=== PATIENT | female | born 1940 | race Caucasian/White ===

== ENCOUNTER 2023-03-12 12:45 | Outpatient (OUT) | payer MEDICARE, OTHER, SELFPAY ==
--- NOTE | 2023-03-12 12:46 | VEIN_ITS ---
Patient Name: ADINA PERRY MR#: [id number] : 1940 Exam Date: 03/12/2023 Ordering Doctor: DR SHREYA GuoPSharonda RADIOLOGY REPORT PROCEDURE: [facility] - OFFICE VISIT INITIAL COMPARISON: None. PROGRESS NOTES: 82-year-old female who presents with a 2 decade history of lower extremity pain swelling and varicose veins. The patient complains of bilateral leg pain, left greater than right. The patient rates the pain as an 8 on a scale of 1-10. The patient's pain is exacerbated by prolonged sitting and standing and is partially relieved by rest, leg elevation, exercise and over the counter ibuprofen. The patient has worn compression stockings for many years. Patient's symptoms culminated in an episode spontaneous superficial thrombophlebitis the left anterior thigh and knee. The patient is seen by Dr. Jacobson for left foot pain and referred from [facility]. The patient denies any signs and symptoms to suggest arterial ischemia. The patient describes a family history significant for varicose veins in a daughter. Heart disease in her brother and father. Type 2 diabetes. . Past surgical history significant for back surgery, hysterectomy, right knee replacement and hernia repair. Patient's current medical history is significant for left leg suspected cellulitis for which she is currently on Keflex. Hypertension for which she is on multiple medications. Occasional social alcohol use. No illicit drug use or prescription issues. The patient has never smoked. No history of deep venous thrombus or pulmonary embolus. See separate history and physical for medication list. The patient has had no prior treatment for varicose veins. Nursing notes were reviewed. After history and physical exam I discussed at length the pathophysiology of venous hypertension and possible treatments, therapies and strategies available. We discussed at length the importance of elevating the lower extremities above the level of the heart, increased physical activity and compression stocking use. I discussed at length with the patient and her daughter intravenous laser ablation, micro foam chemical ablation and injection sclerotherapy. Risks benefits and alternatives were discussed. The patient's questions were answered. Ultrasound venous reflux study performed same day was discussed at length with the patient. The report demonstrates moderate right and mild left great saphenous vein venous insufficiency. Moderate to severe left anterior accessory saphenous vein venous insufficiency. Multiple varicose veins arise off the left anterior accessory saphenous vein including the spontaneously thrombosed vein which is only partially occluded PHYSICAL EXAM: The right leg demonstrates mild to moderate scattered varicose reticular and spider veins. Some minimal hemosiderin staining. No subcutaneous edema. No active ulceration. The left leg demonstrates mild to moderate scattered varicose, reticular and spider veins. Some minimal hemosiderin staining is. No subcutaneous edema. There is a thrombosed varicose vein along the medial to anterior mid to distal left thigh extending of the anterior knee and anterior lower leg with an associated bruise and erythema likely representing thrombophlebitis. Both thighs, legs and feet were symmetrically warm to the touch. Good posterior tibial and dorsalis pedis pulses were present bilaterally. VEIN/VC Facility EST Comprehensive IMPRESSION: 1. Moderate right great saphenous, mild left great saphenous and moderate to severe left anterior accessory saphenous vein venous insufficiency 2. Mild to moderate bilateral lower extremity varicose veins, left greater than right 3. No definite lower extremity subcutaneous edema 4. No definite flow significant arterial disease 5. CEAP: C4a, Eps, As, Pro PLAN: 1. Endovenous laser ablation left anterior accessory saphenous vein followed by right great saphenous vein. 2. Micro foam chemical ablation bilateral incompetent varicose veins 3. Injection sclerotherapy bilateral reticular and spider veins 4. Long-term use of bilateral knee or thigh-high 20-30 mm compression stockings 5. Elevated legs and increased physical activity for symptomatic relief Nurse notes, history and physical were reviewed and confirmed, see attached forms. The nurse was present throughout the physical exam and consultation Dictated by: Jesus Adam MD on 03/12/2023 at 14:43 Approved by: Jesus Adam MD on 03/12/2023 at 14:51
--- NOTE | 2023-03-12 12:47 | VEIN_ITS ---
Patient Name: ADINA PERRY MR#: [id number] : 1940 Exam Date: 03/12/2023 Ordering Doctor: DR SHREYA MILLS D.P.M. RADIOLOGY REPORT PROCEDURE: VC EXT VENOUS REFLUX JACKY LMTD COMPARISON: None. INDICATIONS: I83.813 Bilateral painful varicose veins TECHNIQUE: Duplex imaging of the lower extremity to assess the deep and superficial venous system for the presence of deep or superficial venous incompetence and to document the location and severity of disease. The study includes evaluation of the great saphenous vein (GSV), anterior accessory saphenous vein (AASV) and small saphenous vein (SSV). Patient scanned in reverse Trendelenburg and standing. FINDINGS: RIGHT LOWER EXTREMITY: Saphenofemoral Junction Reflux: Yes 7.3mm 1.7 sec GSV: Diam (mm) Reflux/ Time (sec) Proximal Thigh 5.6 Yes 1.2 Mid Thigh 3.4 Yes 0.8 Distal Thigh 2.9 No Prox Calf 2.5 Yes 0.6 Mid Calf 1.3 No Saphenopopliteal Junction Reflux: 3.9mm No SSV: Proximal Calf 2.1 Yes 0.7 Mid Calf 1.7 No AASV: Not present Thrombi: No acute or chronic thrombus visualized Compressibility: Normal Flow: Normal Preforator: Dist/med calf 2.2mm with 0.6s reflux. Tech Note: Incompetent GSV. Patent varicose vein dist/med calf 1.7mm with 0s reflux. Patent dist/med thigh 2.4mm with 0.6s reflux. LEFT LOWER EXTREMITY: Saphenofemoral Junction Reflux: Yes 6.3 mm 1.1 sec GSV: Diam (mm) Reflux/Time (sec) Proximal Thigh 6.5 Yes 0.7 Mid Thigh 3.8 Yes 0.7 Distal Thigh 2.5 No Prox Calf 1.4 No Mid Calf N/A Saphenopopliteal Junction Relux: 2.5 mm No SSV: Proximal Calf 2.1 No Mid Calf 2.4 No AASV: Proximal Thigh 5.7 Yes 2.4 Mid Thigh 3.6 Yes 2.0 Distal Thigh Thrombi: Chronic thrombus visualized in varicose vein at dist/ant thigh and knee. Compressibility: Normal Flow: Normal Crew Supervisor: Dist/med calf 2.8mm with 0.5s reflux. Tech Note: Incompetent GSV and AASV. Multiple varicose veins visualized with chronic thrombus as noted arising off of AASV. CONCLUSION: 1. Moderate right and mild left great saphenous vein venous insufficiency with saphenofemoral junction reflux 2. Moderate venous insufficiency left anterior accessory saphenous vein 3. Bilateral incompetent varicose veins 4. Thrombosed varicose veins left anterior thigh Dictated by: Jesus Adam MD on 03/12/2023 at 13:55 Approved by: Jesus Adam MD on 03/12/2023 at 13:58
== END 2023-03-12 12:46 | disposition home or self-care (01) ==
LOC: VC 12:46
PROVIDERS: PCP Internal Medicine; Visit Provider Podiatrist Foot & Ankle Surgery
DX: I83.813 Varicose veins of bilateral lower extremities with pain (principal)
CPT/HCPCS: 93970; G0463

== ENCOUNTER 2023-04-03 08:39 | Outpatient (OUT) | payer MEDICARE, OTHER, SELFPAY ==
--- NOTE | 2023-04-03 08:40 | VEIN_ITS ---
The [address] [address] Patient Name: ADINA PERRY MRN: [id number] date: 1940 Sex: F Assigned Patient Location: Current Patient Location: Accession/Order Number: [id number] Exam Date: 04/03/2023 08:44 Report Date: 04/03/2023 10:01 At the request of: SHAMIKA FLORES Procedure: VC Endovenous Ablation 1VeinLT EXAMINATION: VC Endovenous Ablation 1VeinLT HISTORY: I83.813 Bilateral painful varicose veins The risks and benefits of the procedure had been previously discussed, and were rediscussed at length. Informed written consent was obtained. Alexey Sosa RN and Stephanie Jessica RDMS, RVT assisted. Time out procedure was performed. The left lower extremity was prepared and draped in the usual sterile fashion to allow knee flexion in the sterile field. Duplex ultrasound probe was draped in a sterile cover, sterile transmission gel was used. Venous mapping was performed with the areas of dilation and large tributaries marked. The total length was 10 cm from the entry [mid thigh to 3 cm below the Saphenofemoral junction. The diameter of the left anterior accessory saphenous vein ranged from 5.7 mm. A 30 gauge needle and 1% buffered lidocaine was used to anesthetize the entry site. A 4 mm incision was made with a scalpel and the saphenous vein was entered percutaneously under direct ultrasound guidance with a micropuncture set, a single stick was successful in gaining access. A micro-guide wire was inserted and the needle removed. A micro-set including a dilator was inserted over the microwire and the needle and dilator were removed. A guide wire was inserted through the micro-set and guided through the saphenous vein to the saphenofemoral junction. The dilator was removed and an introducer sheath was inserted over the wire until the end of the sheath entered the saphenofemoral junction. The dilator and wire were removed and the 600 micron fiber was introduced and placed and positioned so that it extended beyond the sheath and was 3 cm distal to the saphenofemoral or saphenopopliteal junction. Final position of the fiber was determined by ultrasound guidance and duplex imaging. Tumescent anesthetic was delivered by ultrasound guidance. 75 cc of fluid was delivered along the entire course of the saphenous vein. The solution consisted of 1000 cc of normal saline with 40 mL of 1% lidocaine and 20 mL of sodium bicarbonate. A final positioning check was made. The energy source was turned on by means of the foot pedal and the fiber and sheath were withdrawn. The total number of Joules delivered was 499. The laser was active for 62 seconds under continuous pulse, average laser use of 8 J. Laser start time 9:31 AM, 04/03/2023. Laser stop time 9:33 AM, 04/03/2023. A duplex ultrasound revealed compressibility and flow at the saphenofemoral junction immediately after the procedure. Hemostasis at the access site was achieved. The skin incision of the saphenous vein was closed with a 4 x 4. A compression stocking was applied. Postop instructions were given. A follow up appointment was recommended and scheduled. The patient tolerated the procedure well. Electronically authenticated by: GABY MONTANEZ Date: 04/03/2023 10:01
--- OUTSIDE RECORDS SUMMARY | 2023-04-03 08:44 | XMS_ITS | CCD ---
Author Name Unknown Address [address] [place] [address] Organization [facility] Care Team Providers Care Life Support Technician Name Role Phone Adriana Cruz Unavailable [phone] Unavailable Unavailable Clement Madrid II Unavailable OctaviaEliecer syed Unavailable DO Adriana Cruz Primary Care Provider DO Misbah Greenwood Emergency Provider Unavai ADRIANA Muñiz Primary Care Physician [phone] Shi Urbano Attending Unavailable Shi Urbano Admitting Unavailable Shi Urbano Attending Unavailable Shi Urbano Admitting Unavailable Jay Power Consulting Unavailable J Carlos KEN Attending Unavailable J Carlos KEN Admitting Unavailable Jay Power Consulting Unavailable Jay Power Consulting Unavailable Jay Power Consulting Unavailable MD Mary Ayala Consulting Unavailab mikala Ayala Moaguilar Consulting Unavailable TrabMary florez Consulting Unavailable Trabgautam Moaguilar Consulting Unavailable Trabcalvini Mosethf Consulting Unavailable Trabcalvini Mosethf Consulting Unavailable Trabgautam Moaguilar Consulting Unavailable Yon Ayalaf Consulting Unavailable Mary Ayala Consulting Unavailable Jay Power Admitting Unavailable Jay Power Referring Unavailable Jay Power Attending Unavailable Jay Power Admitting Unavailable Jay Power Referring Unavailable Jay Power Attending Unavailable Shi Urbano Attending Unavailable Shi Urbano Attending Unavailable Jay Power Attending Unavailable Jay Power Attending Unavailable Shi Urbano Referring Unavailable SALAMJeferson Referring Unavailable SALAM, Jeferson Attending Unavailable SALAM, Govea Admitting Unavailable Tirado-Rougon, Adriana Billie Primary Care Unava ilable Tirado-Rougon, Adriana Billie Primary Care Unava ilable McGuinn II, Nick Garduno Attending Unav ailable McGuinn II, Nick Garduno Attending Unav ailable Tirado-Rougon, Adriana Billie Primary Care Unava ilable McGuinn II, Nick Garduno Referring Unav ailable Tirado-Rougon, Adriana Billie Primary Care Unava ilable McGuinn II, Nick Garduno Referring Unav ailable McGuinn II, Nick Garduno Attending Unav ailable Tirado-Rougon, Adriana Billie Primary Care Unava ilable Tirado-Rougon, Adriana Billie Primary Care Unava ilable McGuinn II, Nick Garduno Attending Unav ailable Luis Nolasco Unavailable Savanna Cassidy Unavailable Tirado-Rougon DO, Adriana Billie Primary Care Provi octavio Tirado-Rougon, DO Adriana Primary Care Provider MD Nick Wasserman Attending Provider NICK WASSERMAN Attending Unavailable TIRADO-EMERY, ADRIANA BILLIE Primary Care Unava ilable Tirado-Rougon, DO Adriana Primary Care Provider MD Nick Wasserman Attending Provider LIT Gray Attending Provider Tirado-Rougon, Adriana Primary Care Unavailable Nick Wasserman Admitting Unavail able Nick Wasserman Attending Unavail able Eliecer Gray Attending Unavaila ble Tirado-Rougon, Adriana Primary Care Unavailable Eliecer Gray Admitting Unavaila ble TIRADO-EMERY, ADRIANA D Referring Unavailab IRMA Chinchilla Attending Unavailable SHREYA MILLS Attending Unavailable Allergies Allergy Classification Reported Allergen(s) Allergy Type Date of Onset Reaction(s) Facility (4 sources) HYDROcodone; Translations: [hydrocodone] Drug Allergy [facility] (5 sources) oxyCODONE; Translations: [oxyCODONE] Drug Allergy [facility] (2 sources) Acetaminophen / oxyCODONE; Translations: [acetaminophen-ox ycodone] Drug Allergy Nausea (finding) [facility] Comment on above: All pain meds EXCEPT Morphine. Patient is able to take Morphone. (1 source) Acetaminophen / HYDROcodone; Translations: [Cary] Drug Allergy [facility] (1 source) Acetaminophen / oxyCODONE; Translations: [Percocet] Drug Allergy [facility] (1 source) Darvocet-N 100; Translations: [Darvocet-N 100] Propensity to adverse reactions (disorder) [facility] Medications Current Medications Medication Drug Class(es) Dates Sig (Normalized) Sig (Original) Albuterol (15 sources) beta2-Adrenergic Agonist Start: 01-09-2022 albuterol Refills(s) 0, Asthma Start Date: 01/09/22 Status: Ordered Start: 01-09-2022 albuterol Refi lls(s) 0 Start Date: 01/09/22 Status: Ordered Start: 08-25-2021 take 2 puff(s) by in halation every four hours as needed Albuterol Sulfate HFA 108 (90 Base) MCG/ACT 2 puffs Inhalation every 4 hours as needed for 7 days August, Active Start: 08-25-2021 take 2 puff(s) by in halation every four hours as needed Albuterol Sulfate HFA 108 (90 Base) MCG/ACT 2 puffs Inhalation every 4 hours as needed for 7 days August, Active Start: 06-25-2020 take 1 puff(s) by in halation every four to six hours Albuterol Sulfate (Proair Hfa) 90 mcg/actuation Hfa Aerosol Inhaler Active 2 PUFF INHALATION EVERY 4-6 HOURS June 24, 2020 11:00pm Albuterol Sulfat e HFA 108 (90 Base) MCG/ACT Inhalation Aerosol Solution USE DIRECTED Quantity: 0 Refills: 0 Ordered: 05-Mar-2021 DO Active Albuterol Sulfat e HFA 108 (90 Base) MCG/ACT Inhalation Aerosol Solution USE DIRECTED Quantity: 0 Refills: 0 Ordered: 05-Mar-2021 DO Active amLODIPine 5 mg oral tablet (18 sources) Dihydropyridine Calcium Channel Cayetano Start: 02-02-2023 End: 02-02-2024 take 1 tablet by mouth once daily amLODIPine (Norvasc) 5 mg tablet Indications: Essential hypertension, benign , Nonischemic cardiomyopathy (CMS/HCC) Take 1 tablet (5 mg) by mouth once daily. 30 tablet 11 02/02/2023 02/02/2024 Active Start: 01-09-2022 amlodipine Ref ills(s) 0, High blood pressure Start Date: 01/09/22 Status: Ordered Start: 01-09-2022 amlodipine Ref ills(s) 0 Start Date: 01/09/22 Status: Ordered Start: 06-25-2020 End: 02-02-2023 take 10 mg by mouth once daily Amlodipine Active 10 MG PO Daily June 24, 2020 11:00pm take 1 tablet by roberth th once daily amLODIPine Besylate 2.5 MG Oral Tablet TAKE 1 TABLET DAILY DIRECTED. Quantity: 0 Refills: 0 Ordered: 30-Jul-2020 DO Active Amlodipine & Diet Manage Prod 2.5 MG (5 sources) Amlodipine & t Manage Prod 2.5 MG as directed Orally Active Aspir-81 81 MG (5 sources) take 1 tablet by mouth once daily Aspir-81 81 MG 1 tablet Orally Once a day Active aspirin 81 mg delayed release oral tablet (17 sources) Platelet Aggregation Inhibitor, Nonsteroidal Anti-inflammatory Drug Start: aspirin 81 mg Oral EC Tab Refills(s) 0, Prophylaxis Start Date: 01/09/22 Status: Ordered Start: 06-25-2020 take 81 mg by mouth once daily Aspirin Active 81 MG PO Daily June 24, 2020 11:00pm Aspirin 81 MG Or al Tablet Delayed Release Quantity: 0 Refills: 0 Ordered: 30-Jul-2020 DO Active atorvastatin 40 mg oral tablet (20 sources) HMG-CoA Reductase Inhibitor Start: 01-09-2022 atorvastatin Refills(s) 0 Start Date: 01/09/22 Status: Ordered Start: 06-25-2020 take 40 mg by mouth once daily Atorvastatin Active 40 MG PO Daily June 24, 2020 11:00pm Atorvastatin Romain cium Active Atorvastatin Romain cium 20 MG Oral Tablet Quantity: 0 Refills: 0 Ordered: 30-Jul-2020 DO Active 120 actuat budesonide 0.16 mg/actuat / formoterol fumarate 0.0045 mg/actuat metered dose inhaler (4 sources) Corticosteroid, beta2-Adrenergic Agonist Start: 06-25-2020 take 1 puff(s) by inhalation twice daily Budesonide-Formoterol Active 2 PUFF INHALATION Twice daily June 24, 2020 11:00pm Budesonide-Formo terol Fumarate 160-4.5 MCG/ACT Inhalation Aerosol USE DIRECTED. Quantity: 0 Refills: 0 Ordered: 05-Mar-2021 DO Active budesonide-formoterol 160 mcg-4.5 mcg/inh Inh Aer w/adapter (2 sources) Start: 01-09-2022 budesonide-for moterol 160 mcg-4.5 mcg/inh Inh Aer w/adapter Refill(s) 0, Asthma Start Date: 01/09/22 Status: Ordered Start: 01-09-2022 budesonide-for moterol 160 mcg-4.5 mcg/inh Inh Aer w/adapter Refill(s) 0 Start Date: 01/09/22 Status: Ordered cephalexin 500 mg oral capsule (1 source) Cephalosporin Antibacterial Start: 02-11-2023 take 1 capsule by mouth every eight hours Cephalexin 500 MG 1 capsule Orally tid for 10 days Feb, Active Chlorthalidone (18 sources) Thiazide-like Diuretic Start: 01-09-2022 chlorthalidone Refills(s) 0, diuretic/water pill Start Date: 01/09/22 Status: Ordered Start: 01-09-2022 chlorthalidone Refills(s) 0 Start Date: 01/09/22 Status: Ordered Start: 06-25-2020 take 25 mg by mouth once daily Chlorthalidone Active 25 MG PO Daily June 24, 2020 11:00pm take 0.5 tablet by m outh once daily chlorthalidone (Hygroton) 25 mg tablet Take 0.5 tablets (12.5 mg) by mouth once daily. 0 Active Chlorthalidone 2 5 MG Oral Tablet Quantity: 0 Refills: 0 Ordered: 30-Jul-2020 DO Active cholecalciferol 0.05 mg oral capsule (15 sources) Vitamin D Start: 06-25-2020 take 1 capsule by mouth once daily Cholecalciferol (Vitamin D3) (Vitamin D3) 50 mcg (2,000 unit) Capsule Active 50 MCG PO Daily June 24, 2020 11:00pm take 1 tablet by mouth once mandy y cholecalciferol (Vitamin D-3) 50 MCG (2000 UT) tablet Take 1 tablet (2,000 Units) by mouth once daily. 0 Active Vitamin D3 25 MC G (1000 UT) Oral Tablet Quantity: 0 Refills: 0 Ordered: 30-Jul-2020 DO Active codeine phosphate 2 mg/ml / guaiFENesin 20 mg/ml oral solution (3 sources) Opioid Agonist Start: 08-25-2021 take 10 mL by mouth every six hours as needed guaiFENesin-Codeine 100-10 MG/5ML 10 ml as needed Orally every 6 hrs for 4 days August, Active Guaifenesin-Code ine 10-100 MG/5ML SYRP TAKE 10 ML EVERY 4-6 HOURS NEEDED Quantity: 0 Refills: 0 Ordered: 05-Mar-2021 DO Active codeine phosphate 2 mg/ml / promethazine hydrochloride 1.25 mg/ml oral solution (3 sources) Opioid Agonist, Phenothiazine Start: 03-28-2021 take 1 mL by mouth every four hours Promethazine-Codeine Active 5 ML PO Q4H 120 5 March 28, 2021 12:00am diclofenac sodium 0.01 mg/mg topical gel (4 sources) Nonsteroidal Anti-inflammatory Drug Start: 08-29-2021 Diclofenac Sodium 1 % apply 1-2 grams to affected area Externally up to 4x's a day for 30 days August, Active dicyclomine hydrochloride 2 mg/ml oral solution (11 sources) Anticholinergic take 10 mL by mouth three times daily Dicyclomine HCl 10 MG/5ML 10 mL Orally Three times a day Active take 1 capsule by mouth at bedti me dicyclomine (Bentyl) 10 mg capsule Take 1 capsule (10 mg) by mouth. BEFORE EACH MEAL AND AT BEDTIME 0 Active doxycycline monohydrate 100 mg oral tablet (2 sources) Tetracycline-class Drug Start: 08-25-2021 take 1 tablet by mouth every twelve hours Doxycycline Monohydrate 100 MG 1 tablet Orally Twice a day for 7 day(s) August, Active gabapentin 300 mg oral capsule (2 sources) Anti-epileptic Agent Start: 01-09-2022 gabapentin 300 mg, Oral, Refills(s) 0, Neuropathy Start Date: 01/09/22 Status: Ordered Start: 01-09-2022 gabapentin Ref ills(s) 0 Start Date: 01/09/22 Status: Ordered 24 hr isosorbide mononitrate 30 mg extended release oral tablet (8 sources) Nitrate Vasodilator Start: 01-09-2022 isosorbide mononitrate Refills(s) 0 Start Date: 01/09/22 Status: Ordered Start: 03-05-2021 isosorbide mon onitrate 30 mg, Oral, Refills(s) 0, High blood pressure Start Date: 01/09/22 Status: Ordered Isosorbide Dinitrate (4 sources) Nitrate Vasodilator Isosorbide D initrate Active losartan potassium 100 mg oral tablet (20 sources) Angiotensin 2 Receptor Cayetano Start: 01-09-2022 losartan Refills(s) 0 Start Date: 01/09/22 Status: Ordered Start: 06-25-2020 take 100 mg by mouth once mandy y Losartan Active 100 MG PO Daily June 24, 2020 11:00pm meloxicam 7.5 mg oral tablet (4 sources) Nonsteroidal Anti-inflammatory Drug Start: 12-18-2022 take 1 tablet by mouth every twenty-four hours Meloxicam 7.5 MG 1 tablet Orally Once a day for 90 days Dec, Active Start: 08-29-2021 take 1 tablet by roberth th every twenty-four hours Meloxicam 7.5 MG 1 tablet Orally Once a day for 30 day(s) START AFTER FINISHED WITH Medrol dose pack August, Active methylPREDNISolone 4 mg oral tablet (2 sources) Corticosteroid Start: 08-29-2021 methylPREDNISolone 4 MG as directed Orally for 6 days August, Active naproxen 500 mg oral tablet (1 source) Nonsteroidal Anti-inflammatory Drug Start: 08-30-2022 take 1 tablet by mouth twice daily Naproxen Sodium 500 mg 1 tablet Orally Twice a day for 10 days August, Active nitroglycerin 0.4 mg sublingual tablet (6 sources) Nitrate Vasodilator Nitrostat 0.4 MG 1 tablet under the tongue and allow to dissolve as needed Sublingual PRN Active Nitrostat 0.4 MG Sublingual Tablet Sublingual Quantity: 0 Refills: 0 Ordered: 30-Jul-2020 DO Active ondansetron 4 mg oral tablet (6 sources) Serotonin-3 Receptor Antagonist Start: 11-12-2021 take 4 mg by mouth every eight hours Ondansetron Hcl Active 4 MG PO Q8H 03 09November 11, 2021 11:00pm Start: 06-25-2020 take 4 mg by mouth f our times daily Ondansetron Active 4 MG PO Four times daily June 24, 2020 11:00pm pantoprazole 40 mg extended release oral tablet (20 sources) Proton Pump Inhibitor Start: 01-09-2022 take 40 mg by mouth once daily pantoprazole 40 mg, Oral, Daily, Refills(s) 0, Control of stomach acid Start Date: 01/09/22 Status: Ordered Start: 01-09-2022 pantoprazole R efills(s) 0 Start Date: 01/09/22 Status: Ordered Start: 06-25-2020 take 40 mg by mouth once daily Pantoprazole Active 40 MG PO Daily June 24, 2020 11:00pm Pantoprazole Sod ium 40 MG Oral Tablet Delayed Release Quantity: 0 Refills: 0 Ordered: 30-Jul-2020 DO Active Pantoprazole Sod ium Active predniSONE 20 mg oral tablet (2 sources) Start: 08-25-2021 take 1 tablet by mouth every twelve hours predniSONE 20 MG 1 tablet Orally twice a day for 5 days August, Active Sertraline (7 sources) Serotonin Reuptake Inhibitor Start: 01-09-2022 sertraline Refills(s) 0, Depression Start Date: 01/09/22 Status: Ordered Start: 01-09-2022 sertraline Ref ills(s) 0 Start Date: 01/09/22 Status: Ordered Sertraline HCl A ctive take 1 tablet by roberht th once daily Sertraline HCl - 25 MG Oral Tablet TAKE 1 TABLET DAILY. Quantity: 0 Refills: 0 Ordered: 05-Mar-2021 DO Active Spironolactone (20 sources) Aldosterone Antagonist Start: 01-09-2022 spirono lactone Refills(s) 0, diuretic/water pill Start Date: 01/09/22 Status: Ordered Start: 01-09-2022 spironolactone Refills(s) 0 Start Date: 01/09/22 Status: Ordered Start: 06-25-2020 take 25 mg by mouth once daily Spironolactone Active 25 MG PO Daily June 24, 2020 11:00pm traMADol hydrochloride 50 mg oral tablet (3 sources) Opioid Agonist Start: 06-25-2020 take 1 tablet by mouth every six hours Tramadol (Ultram) 50 mg tablet Active 50 MG PO Q6H 12 3 June 24, 2020 11:00pm Vitamin D3 (7 sources) Start: 01-09-2022 Vitamin D3 Refills(s) 0, Prophylaxis Start Date: 01/09/22 Status: Ordered Start: 01-09-2022 Vitamin D3 Ref ills(s) 0 Start Date: 01/09/22 Status: Ordered Vitamin D3 Activ e Completed/Discontinued Medications Medication Drug Class(es) Dates Sig (Normalized) Sig (Original) cefTRIAXone (5 sources) Cephalosporin Antibacterial Start: 06-23-2013 Rocephin 500 mg Jun, 250 mg mg {2 (480 ML Magnesium Sulfate 0.0277 MEQ/ML / potassium sulfate 0.0374 MEQ/ML / sodium sulfate 0.257 MEQ/ML Oral Solution) } Pack [Suprep Bowel Prep Kit] (1 source) Start: 01-10-2022 Suprep Bowel Prep Kit oral liquid See Instructions, 1 EA, Refill(s) 0, Prior to colonoscopy., [employer] #24, 150, cm, 01/10/22 10:48:00 EDT, Height/Length Dosing, 48.3, kg, 01/10/22 10:48:00 EDT, Weight Dosing Start Date: 01/10/22 Status: Ordered triamcinolone acetonide 40 mg/ml injectable suspension (5 sources) Corticosteroid Start: 12-18-2022 Kenalog-40 Dec, 120 mg Start: 12-27-2021 Kenalog-40 Dec, 40 mg Problems Active Problems Problem Classification Problem Date Documented Da te Episodic/Chronic Abdominal hernia (3 sources) Hernia of anterior abdominal wall; Translations: [Ventral hernia without obstruction or gangrene] 11-12-2021 Episodic Abdominal pain (13 sources) Indigestion; Translations: [Epigastric pain] Onset: 2 Episodic Asthma (6 sources) Asthmatic bronchitis; Translations: [Unspecified asthma with (acute) exacerbation] Onset: 2 Resolved: 2 Chronic Coronary atherosclerosis and other heart disease (13 sources) Coronary arteriosclerosis; Translations: [Coronary atherosclerosis of unspecified type of vessel, chefor[place] or graft] Onset: 3 02-02-2023 Chronic Deficiency and other anemia (4 sources) Anemia; Translations: [Anemia, unspecified] Onset: 2 Episodic Disorders of lipid metabolism (13 sources) Hyperlipidemia; Translations: [Other and unspecified hyperlipidemia] Onset: 3 02-02-2023 Chronic Essential hypertension (13 sources) Benign essential hypertension; Translations: [Benign essential hypertension] Onset: 3 02-02-2023 Chronic Fluid and electrolyte disorders (3 sources) Absolute hypovolemia; Translations: [Hypovolemia] 11-12-2021 Episodic Genitourinary symptoms and ill-defined conditions (1 source) Frequency of micturition Episodic Nausea and vomiting (6 sources) Nausea and vomiting; Translations: [Nausea with vomiting, unspecified] Onset: 2 11-12-2021 Episodic Osteoarthritis (3 sources) Arthritis of left knee; Translations: [Unilateral primary osteoarthritis, left knee] Chronic Other and unspecified benign neoplasm (3 sources) History of polyp of colon; Translations: [Personal history of colonic polyps] Onset: 2 Episodic Other connective tissue disease (5 sources) History of right total knee replacement; Translations: [Presence of right artificial knee joint] Chronic Other connective tissue disease (1 source) Presence of right artificial knee joint Onset: 2 Resolved: 2 Chronic Other ear and sense organ disorders (1 source) Otalgia, left ear Episodic Other gastrointestinal disorders (9 sources) Diarrhea; Translations: [Diarrhea, unspecified] Onset: 2 03-28-2021 Episodic Other gastrointestinal disorders (3 sources) Incontinence of feces; Translations: [Full incontinence of feces] Onset: 2 Episodic Other lower respiratory disease (6 sources) Dyspnea; Translations: [Shortness of breath] Episodic Other lower respiratory disease (3 sources) Dyspnea on exertion; Translations: [Shortness of breath] Episodic Other nutritional; endocrine; and metabolic disorders (1 source) Abnormal weight loss; Translations: [Abnormal weight loss] Onset: 2 Episodic Other nutritional; endocrine; and metabolic disorders (2 sources) Weight loss 01-10-2022 Episodic Pancreatic disorders (not diabetes) (12 sources) Chronic pancreatitis; Translations: [Chronic pancreatitis] Onset: 3 01-31-2023 Chronic Pancreatic disorders (not diabetes) (8 sources) Pancreatitis; Translations: [Acute pancreatitis without necrosis or infection, unspecified] 06-25-2020 Episodic Tiffany-; endo-; and myocarditis; cardiomyopathy (except that caused by tuberculosis or sexually transmitted disease) (14 sources) Cardiomyopathy; Translations: [Other primary cardiomyopathies] Onset: 3 02-02-2023 Chronic Phlebitis; thrombophlebitis and thromboembolism (1 source) Phlebitis and thrombophlebitis of unspecified site Episodic Residual codes; unclassified (10 sources) Body mass index 20-24 - normal; Translations: [Body Mass Index between 19-24, adult] Onset: 3 01-31-2023 Episodic Unclassified (1 source) Frequency of micturition; Translations: [Frequency of micturition] Onset: 3 Urinary tract infections (1 source) Acute cystitis with hematuria Episodic Past or Other Problems Problem Classification Problem Date Documented Da te Episodic/Chronic Other non-traumatic joint disorders (1 source) Pain in left knee Onset: 08-29-2021 Resolved: 08-29-2021 Episodic Unclassified (8 sources) Never smoked tobacco; Translations: [Never a smoker] Unclassified (1 source) Onset: 02-02-2023 02-02-2023 Results Test Name Value Interpretation Reference Range Facility [facility] 02-20-2023 [facility] Telephone (REFPHY) -- ADINA PERRY ([id number]) 1940 F Date Time Provider Department 02/20/23 NO ONE (HISTORICAL) REFPHY During your visit today, we recorded the following information about you: Lloyd Roll Out ManagerAlanis granados 02/20/2023 6:39 AM Addendum Patient: Adina Perry Date of : 1940 Patient phone number: [phone] Referring Provider for the encounter: Irma Angel APRN Requesting Provider: Vascular Surgery Reason for requesting visit (RFV/signs and symptoms/diagnosis): 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 Person calling: caregiver: Alanis Return call to: self Medical Records/Insurance Card scanned into P2P-Next: Yes Comments: This was Routed Incorrectly Allergies As of Date: 02/20/2023 Noted Allergy Reaction OXYBUTYNIN 10/13/2018 14 - Other: See Comments Comments: Severe dry mouth Date Reviewed: 02/21/2020 Reviewed by: Telma eRddy (Kee) - Fully Assessed Reason for Visit: External Referrals/resources [[id number]] Prescriptions as of 03/19/2023 - gabapentin (NEURONTIN) 300 mg capsule Take 1 capsule by mouth daily at bedtime for 90 days. - atorvastatin (LIPITOR) 40 mg tablet Take 1 tablet by mouth once daily. - losartan (COZAAR) 100 mg tablet Take 1 tablet by mouth once daily. - pantoprazole DR (PROTONIX) 40 mg tablet Take 1 tablet by mouth once daily. - spironolactone (ALDACTONE) 25 mg tablet TAKE 1 TABLET EVERY DAY - hydrALAZINE (APRESOLINE) 25 mg tablet 2 tablets in the morning and one tablet in evening daily. - amoxicillin (POLYMOX, AMOXIL) 500 mg capsule TAKE 4 CAPSULES BY MOUTH ONE HOUR PRIOR TO DENTAL APPOINTMENT. - amLODIPine (NORVASC) 10 mg tablet Take 1 tablet by mouth once daily. Adjusted for elevated BP readings 04-13-2019. - budesonide-formoterol (SYMBICORT) 160-4.5 mcg/actuation inhaler Inhale 1 Puff as instructed as needed. Rinse mouth out after use - Cholecalciferol, Vitamin D3, 2,000 unit cap Take 1 capsule by mouth once daily. - albuterol HFA (PROAIR HFA) 90 mcg/actuation inhaler Inhale 2 Puffs as instructed every 4 hours as needed for Wheezing/Shortness of Breath. - aspirin, enteric coated (ASPIRIN, ENTERIC COATED) 81 mg EC tablet Take 81 mg by mouth once daily. 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] 03/10/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] 03/10/2018 Primary osteoarthritis of left knee [M17.12] 08/10/2018 History of total right knee replacement [Z96.65*08/10/2018 Non-ischemic cardiomyopathy (HCC); reportedly v*12/15/2018 Encounter Status:Closed by ALANIS OSORIO on 02/20/23 Normal [facility] Urinalysis - DIPSTICKon 11-0 Appearance (U) cloudy [employer] Other Bilirubin Ql (U) Negative [employer] Other Color (U) yellow [employer] Other Glucose Ql (U) Negative [employer] Other Hemoglobin Ql (U) small [employer] Other Ketones Ql (U) Negative [employer] Other Leukocyte esterase Test strip Ql (U) large [employer] Other Nitrite Ql (U) Positive [employer] Other pH (U) 5.0 [pH] [employer] Other Protein Ql (U) trace [employer] Other Specific gravity (U) [Rel density] 1.025 [employer] Other Urobilinogen (U) [Mass/Vol] 0.2 mg/dL [employer] Other Urinalysis - DIPSTICK Nor [employer] Other Urine Cultureon 02-11-2023 Bacteria identified Cx Nom (U) ORGANISM: Escherichia coli (O:ESCCOL) [place] Count >100,000 Aerobic DYLAN Charge ([id number]) SUSCEPTIBILITY ORGANISM: O:ESCCOL ANTIBIOTIC INTERPRETATION DYLAN Amikacin S <16 Amoxacillin/K Clavulanate S <8 Ampicillin S <8 Ampicillin/Sulbactam S <4 Aztreonam S <4 Cefazolin S <2 Cefepime S <2 Ceftazidime S <1 Ceftazidime/Avibactam S <4 Ceftolozane/Tazobactam S <2 Ceftriaxone S <1 Cefuroxime S <4 Ciprofloxacin S <0.25 Ertapenem S <0.5 Gentamicin S <2 Levofloxacin S <0.5 Meropenem S <1 Meropenem/Vaborbactam S <2 Nitrofurantoin S <32 Piperacillin/Tazobactam S <8 Tetracycline S <4 Tigecycline S <2 Tobramycin S <2 Trimethoprim/Sulfamethoxaz ole S <0.5 S = SUSCEPTIBLE I = INTERMEDIATE R = RESISTANT BLANK = DATA NOT AVAILABLE, OR DRUG NOT ADVISABLE OR TESTED R* = RESISTANCE DUE TO EXTENDED SPECTRUM BETA-LACTAMASES ESBL = EXTENDED SPECTRUM BETA-LACTAMASE TFG = THYMIDINE-DEPENDENT STRAIN EMILEE = BETA-LACTAMASE POSITIVE IB = INDUCIBLE BETA-LACTAMASE. APPEARS IN PLACE OF 'S' WITH SPECIES KNOWN TO POSSESS INDUCIBLE BETA-LACTAMASES. POTENTIALLY THEY MAY BECOME RESISTANT TO ALL B-LACTAM DRUGS. PERFORMED BY: [place] [address] PATHOLOGIST INSPECTOR SCALES RENAN CAIN M.D. Normal [facility] Comment on above: Performed By: #### C UU #### [address] Basic Metabolic Panelon 10-3 0-2022 Anion gap [Moles/Vol] 11.0 mmol/L Normal 6.0-15.0 [facility] Comment on above: Performed By: #### L IPID, BMP, CBC #### [address] Calcium [Mass/Vol] 10.1 mg/dL Normal 8.6-10.3 [facility] Comment on above: Performed By: #### L IPID, BMP, CBC #### [place] [address] [place] Chloride [Moles/Vol] 107 mmol/L Normal 98-107 [facility] Comment on above: Performed By: #### L IPID, BMP, CBC #### [facility] [address] [place] [address] [place] CO2 [Moles/Vol] 26.4 mmol/L Normal 21.0-31.0 [facility] Comment on above: Performed By: #### L IPID, BMP, CBC #### [facility] [address] [place] [address] [place] Creatinine [Mass/Vol] 1.34 mg/dL High 0.60-1.20 [facility] Comment on above: Performed By: #### L IPID, BMP, CBC #### [place] [address] [place] GFR/1.73 sq M.predicted MDRD (S/P/Bld) [Vol rate/Area] 40.085 mL/min/{1.73_m2} Normal [facility] Comment on above: Performed By: #### L LANA OLIVEROS, CBC #### [facility] [address] Glucose [Mass/Vol] 91 mg/dL Normal 70-100 [facility] Comment on above: Result Comment: [place] Glucose Reference Range is dependent on time and content of last meal. Glucose of more than 200 mg/dL in a nonstressed, ambulatory subject supports the diagnosis of Diabetes Mellitus. ADA recommended reference range Performed By: #### L LANA OLIVEROS, CBC #### [facility] [address] Potassium [Moles/Vol] 4.4 mmol/L Normal 3.5-5.1 [facility] Comment on above: Performed By: #### L LANA OLIVEROS, CBC #### [address] Sodium [Moles/Vol] 140 mmol/L Normal 136-145 [facility] Comment on above: Performed By: #### L LANA OLIVEROS, CBC #### [facility] [address] [place] [address] Urea nitrogen [Mass/Vol] 23 mg/dL Normal 7-25 [facility] Comment on above: Performed By: #### L LANA OLIVEROS, CBC #### [facility] [address] [place] [address] [place] Basophils Auto (Bld) [#/Vol] Ordered By: Nick Wasserman on 02-02-2023 Basophils (Bld) [#/Vol] 0.0 10*3/uL 0.0-0.2 [facility] Basophils/100 WBC Auto (Bld) Ordered By: Nick Wasserman on 02-02-2023 Basophils/100 WBC (Bld) 0.4 % . [facility] Calcium [Mass/volume] in Ser um or PlasmaOrdered By: Nick Wasserman on 02-02-2023 Calcium [Mass/Vol] 10.1 mg/dL 8.6-10.3 [facility] Carbon dioxide, total [Moles /volume] in Serum or PlasmaOrdered By: Nick Wasserman on 02-02-2023 CO2 [Moles/Vol] 26.4 mmol/L 21.0-31.0 [facility] Chloride [Moles/volume] in S kobi or PlasmaOrdered By: Nick Wasserman on 02-02-2023 Chloride [Moles/Vol] 107 mmol/L 98-107 [facility] Cholesterol [Mass/volume] in Serum or PlasmaOrdered By: Nick Wasserman on 02-02-2023 Cholesterol [Mass/Vol] 170 mg/dL 140-200 [facility] Comment on above: Chol less than 200 m g/dl low riskChol 201-239 mg/dl borderline riskChol 240 mg/dl and greater high risk Cholesterol in LDL Calc [Mas s/Vol]Ordered By: Nick Wasserman on 02-02-2023 Cholesterol in LDL [Mass/Vol] 89 mg/dL 0-100 [facility] Comment on above: LDL ATP III CLASSIFI CATIONLDL less than 100 mg/dL OptimalLDL 100-129 mg/dL Near or above optimalLDL 130-159 mg/dL Borderline highLDL 160-189 mg/dL HighLDL greater than 189 mg/dL Very high Cholesterol in VLDL Calc [Ma ss/Vol]Ordered By: Nick Wasserman on 02-02-2023 Cholesterol in VLDL [Mass/Vol] 25 mg/dL [facility] Complete Blood Count Auto Di ffon 02-02-2023 Basophils (Bld) [#/Vol] 0.0 10*3/uL Normal 0.0-0.2 [facility] Comment on above: Result Comment: PERF ORMED BY: [place] [address] PATHOLOGIST INSPECTOR SCALES RENAN CAIN M.D. Performed By: #### L IPID BMP, CBC #### [address] Basophils/100 WBC (Bld) 0.4 % Normal . [facility] Comment on above: Performed By: #### L IPID BMP, CBC #### [facility] [address] Eosinophils (Bld) [#/Vol] 0.3 10*3/uL Normal 0.0-0.45 [facility] Comment on above: Performed By: #### L IPID, BMP, CBC #### [facility] [address] [place] [address] Eosinophils/100 WBC (Bld) 3.4 % Normal . [facility] Comment on above: Performed By: #### L IPID, BMP, CBC #### [address] Erythrocyte distribution width (RBC) [Ratio] 13.0 % Normal 11.9-15.3 [facility] Comment on above: Performed By: #### L IPID, BMP, CBC #### [address] Hematocrit (Bld) [Volume fraction] 37.3 % Normal 34.0-46.4 [facility] Comment on above: Performed By: #### L IPID, BMP, CBC #### [address] Hemoglobin (Bld) [Mass/Vol] 12.5 g/dL Normal 11.8-15.4 [facility] Comment on above: Performed By: #### L IPID, BMP, CBC #### [place] [address] [place] Lymphocytes (Bld) [#/Vol] 1.4 10*3/uL Normal 1.00-4.8 [facility] Comment on above: Performed By: #### L IPID, BMP, CBC #### [place] [address] [place] Lymphocytes/100 WBC (Bld) 16.6 % Normal . [facility] Comment on above: Performed By: #### L IPID, BMP, CBC #### [facility] [address] [place] [address] MCH (RBC) [Entitic mass] 30.9 pg Normal 24.7-34.3 [facility] Comment on above: Performed By: #### L IPID, BMP, CBC #### [facility] [address] MCV (RBC) [Entitic vol] 91.8 fL Normal 80-100 [facility] Comment on above: Performed By: #### L IPID, BMP, CBC #### [address] Mean Corpuscular HGB Conc 33.6 g/dL Normal 32.0-35.0 [facility] Comment on above: Performed By: #### L IPID, BMP, CBC #### [address] Monocytes (Bld) [#/Vol] 0.8 10*3/uL Normal 0.0-0.8 [facility] Comment on above: Performed By: #### L IPID, BMP, CBC #### [address] Monocytes/100 WBC (Bld) 9.0 % Normal . [facility] Comment on above: Performed By: #### L IPID, BMP, CBC #### [place] [address] [place] Neutrophils (Bld) [#/Vol] 6.1 10*3/uL Normal 1.8-7.7 [facility] Comment on above: Performed By: #### L IPID, BMP, CBC #### [place] [address] [place] Neutrophils/100 WBC (Bld) 70.6 % Normal . [facility] Comment on above: Performed By: #### L IPID, BMP, CBC #### [place] [address] [place] NRBC% 0.0 /100{WBC} Normal 0-0.5 [facility] Comment on above: Performed By: #### L IPID, BMP, CBC #### [address] Platelet mean volume (Bld) [Entitic vol] 8.2 fL Normal 6.3-10.7 [facility] Comment on above: Performed By: #### L IPID, BMP, CBC #### [facility] [address] Platelets (Bld) [#/Vol] 296 10*3/uL Normal 150-450 [facility] Comment on above: Performed By: #### L IPID, BMP, CBC #### [facility] [address] RBC (Bld) [#/Vol] 4.07 10*6/uL Normal 3.60-5.00 [facility] Comment on above: Performed By: #### L IPID, BMP, CBC #### [facility] [address] WBC (Bld) [#/Vol] 8.6 10*3/uL Normal 3.8-11.6 [facility] Comment on above: Performed By: #### L IPID, BMP, CBC #### [facility] [address] Creatinine [Mass/volume] in Serum or PlasmaOrdered By: Nick Wasserman on 02-02-2023 Creatinine [Mass/Vol] 1.34 mg/dL 0.60-1.20 [facility] Eosinophils Auto (Bld) [#/Vo l]Ordered By: Nick Wasserman on 02-02-2023 Eosinophils (Bld) [#/Vol] 0.3 10*3/uL 0.0-0.45 [facility] Eosinophils/100 WBC Auto (Bl d)Ordered By: Nick Wasserman on 02-02-2023 Eosinophils/100 WBC (Bld) 3.4 % . [facility] Erythrocyte distribution wid th Auto (RBC) [Ratio]Ordered By: Nick Wasserman on 02-02-2023 Erythrocyte distribution width (RBC) [Ratio] 13.0 % 11.9-15.3 [facility] Glucose [Mass/volume] in Ser um or PlasmaOrdered By: Nick Wasserman on 02-02-2023 Glucose [Mass/Vol] 91 mg/dL 70-100 [facility] Comment on above: ADA recommended refe rence rangeRandom Glucose Reference Range is dependent on time and content of last meal. Glucose of more than 200 mg/dL in a nonstressed, ambulatory subject supports the diagnosis of Diabetes Mellitus. Hematocrit Auto (Bld) [Volum e fraction]Ordered By: Nick Wasserman on 02-02-2023 Hematocrit (Bld) [Volume fraction] 37.3 % 34.0-46.4 [facility] Hemoglobin [Mass/volume] in BloodOrdered By: Nick Wasserman on 02-02-2023 Hemoglobin (Bld) [Mass/Vol] 12.5 g/dL 11.8-15.4 [facility] Leukocytes [#/volume] correc sergey for nucleated erythrocytes in Blood by Automated counOrdered By: Nick Wasserman on 02-02-2023 WBC corrected for nucl RBC Auto (Bld) [#/Vol] 8.6 10*3/uL 3.8-11.6 [facility] Lipid Panelon 02-02-2023 Cholesterol [Mass/Vol] 170 mg/dL Normal 140-200 [facility] Comment on above: Result Comment: Chol less than 200 mg/dl low risk Chol 201-239 mg/dl borderline risk Chol 240 mg/dl and greater high risk Performed By: #### L IPID, BMP, CBC #### [facility] [address] [place] [address] [place] Cholesterol in HDL [Mass/Vol] 56 mg/dL Normal 23-92 [facility] Comment on above: Result Comment: HDL CHOL ATP-III CLASSIFICATION Cardiovascular Risk HDL > or equal to 60 mg/dL LOW HDL < 40 mg/dL HIGH Performed By: #### L IPID, BMP, CBC #### [facility] [address] [place] [address] [place] Cholesterol.total/Cho lesterol in HDL [Mass ratio] 3.0 {ratio} Normal <5.0 [facility] Comment on above: Result Comment: PERF ORMED BY: [facility] [address] [place] [address] PATHOLOGIST INSPECTOR SCALES RENAN CAIN M.D. Performed By: #### L IPID, BMP, CBC #### [facility] [address] LDL Cholesterol,Calculate d 89 mg/dL Normal 0-100 [facility] Comment on above: Result Comment: LDL ATP III CLASSIFICATION LDL less than 100 mg/dL Optimal LDL 100-129 mg/dL Near or above optimal LDL 130-159 mg/dL Borderline high LDL 160-189 mg/dL High LDL greater than 189 mg/dL Very high Performed By: #### L IPID, BMP, CBC #### [facility] [address] Triglyceride w/Reflex 127 mg/dL Normal 0-149 [facility] Comment on above: Result Comment: TRIG ATP III CLASSIFICATION TRIG less than 150 mg/dL Normal TRIG 150-199 mg/dL Borderline high TRIG 200-500 mg/dL High TRIG greater than 500 mg/dL Very high Standard traceable to the Center for Disease Conrtrol and Prevention (CDC) test method. Performed By: #### L IPID, BMP, CBC #### [facility] [address] VLDL CHOLESTEROL 25 mg/dL Normal [facility] Comment on above: Performed By: #### L IPID, BMP, CBC #### [facility] [address] Lymphocytes Auto (Bld) [#/Vo l]Ordered By: Nick Wasserman on 02-02-2023 Lymphocytes (Bld) [#/Vol] 1.4 10*3/uL 1.00-4.8 [facility] Lymphocytes/100 WBC Auto (Bl d)Ordered By: Nick Wasserman on 02-02-2023 Lymphocytes/100 WBC (Bld) 16.6 % . [facility] MCH Auto (RBC) [Entitic mass ]Ordered By: Nick Wasserman on 02-02-2023 MCH (RBC) [Entitic mass] 30.9 pg 24.7-34.3 [facility] MCHC Auto (RBC) [Mass/Vol]Or dered By: Nick Wasserman on 02-02-2023 MCHC (RBC) [Mass/Vol] 33.6 g/dL 32.0-35.0 [facility] MCV Auto (RBC) [Entitic vol] Ordered By: Nick Wasserman on 02-02-2023 MCV (RBC) [Entitic vol] 91.8 fL 80-100 [facility] Monocytes Auto (Bld) [#/Vol] Ordered By: Nick Wasserman on 02-02-2023 Monocytes (Bld) [#/Vol] 0.8 10*3/uL 0.0-0.8 [facility] Monocytes/100 WBC Auto (Bld) Ordered By: Nick Wasserman on 02-02-2023 Monocytes/100 WBC (Bld) 9.0 % . [facility] Neutrophils Auto (Bld) [#/Vo l]Ordered By: Nick Wasserman on 02-02-2023 Neutrophils (Bld) [#/Vol] 6.1 10*3/uL 1.8-7.7 [facility] Neutrophils/100 WBC Auto (Bl d)Ordered By: Nick Wasserman on 02-02-2023 Neutrophils/100 WBC (Bld) 70.6 % . [facility] No Panel InformationOrdered By: Nick Wasserman on 02-02-2023 Estimated GFR (CKD-EPI) 40.085 mL/Min [facility] Creatinine Clearance (Chem N/A [facility] Nucleated erythrocytes [Pres ence] in Blood by Automated countOrdered By: Nick Wasserman on 02-02-2023 Nucleated RBC Auto Ql (Bld) 0.0 /100{WBC} 0-0.5 [facility] Platelet mean volume Auto (B ld) [Entitic vol]Ordered By: Nick Wasserman on 02-02-2023 Platelet mean volume (Bld) [Entitic vol] 8.2 fL 6.3-10.7 [facility] Platelets Auto (Bld) [#/Vol] Ordered By: Nick Wasserman on 02-02-2023 Platelets (Bld) [#/Vol] 296 10*3/uL 150-450 [facility] Potassium [Moles/volume] in Serum or PlasmaOrdered By: Nick Wasserman on 02-02-2023 Potassium [Moles/Vol] 4.4 mmol/L 3.5-5.1 [facility] RBC Auto (Bld) [#/Vol]Ordere d By: Nick Wasserman on 02-02-2023 RBC (Bld) [#/Vol] 4.07 10*6/uL 3.60-5.00 [facility] Serum or plasma anion gap de terminationOrdered By: Nick Wasserman on 02-02-2023 Anion gap [Moles/Vol] 11.0 mmol/L 6.0-15.0 [facility] Serum or plasma high density lipoprotein (HDL) cholesterol measurementOrdered By: Nick Wasserman on 02-02-2023 Cholesterol in HDL [Mass/Vol] 56 mg/dL 23- [facility] Comment on above: HDL CHOL ATP-III CLA SSIFICATION Cardiovascular RiskHDL > or equal to 60 mg/dL LOWHDL < 40 mg/dL HIGH Serum or plasma total choles terol/high density lipoprotein (HDL) cholesterol mass ratOrdered By: Nick Wasserman on 02-02-2023 Cholesterol.total/Cho lesterol in HDL [Mass ratio] 3.0 {ratio} <5.0 [facility] Sodium [Moles/volume] in Ser um or PlasmaOrdered By: Nick Wasserman on 02-02-2023 Sodium [Moles/Vol] 140 mmol/L 136-145 [facility] Triglyceride [Mass/volume] i n Serum or PlasmaOrdered By: Nick Wasserman on 02-02-2023 Triglyceride [Mass/Vol] 127 mg/dL 0-149 [facility] Comment on above: TRIG ATP III CLASSIF ICATIONTRIG less than 150 mg/dL NormalTRIG 150-199 mg/dL Borderline highTRIG 200-500 mg/dL High TRIG greater than 500 mg/dL Very highStandard traceable to the Center for Disease Conrtrol and Prevention (CDC) test method. Urea nitrogen [Mass/volume] in Serum or PlasmaOrdered By: Nick Wasserman on 02-02-2023 Urea nitrogen [Mass/Vol] 23 mg/dL 7- [facility] WBC Auto (Bld) [#/Vol]Ordere d By: Nick Wasserman on 02-02-2023 WBC (Bld) [#/Vol] 8.6 10*3/uL 3.8-11.6 [facility] Coding Summary.on 03-11-2022 Coding Summary. [id number] Gh0bWw +PGhlYWQ+YY7ZGFYnC45ywXRwp P8KB6kNRO8FYALOGCBZDY8WRV7 niPM8EYnnK5YqmyYr SuwamIYmDW13OQh2NDU3kWnkMJ ebxV8sfRRfZ9j6VgQpOI50hG83 MAuyXJXuRpT5InSsvmwkfUBb A5ycCmIixNWaAts+PHRhYmxlIH uxAKSgPLsjUOUkEnEjeSuaSR8y Qb8yGIUfVVZmrJyouTRrAnXo h2ceRTZwELxuBD3dtGfmU6UkiC I1FTFro8m5Jx92fJG+PHRkIHN0 tOenLQcyt497CbUud6gySGJ4 mFFmZCpdMYN6O27xa9I5FMWbJQ IvVRO6yKC6dW5gxThaybfsH0Ap qPXcSlL3PJN2oVXnjV9vjMfs xyeosA4uTnk+Y90PFL7LVMQJUP 7JVur9V8ZzHixdqGS+FE40KQTp JX26gDOcwPSlv8tcsCl0IjWn FFGxWOY2iFryTAqxm2LkVNXiM1 0zqHCgj8I0GPLwzPraxFEaYnLc wMB4nY3xHIclwjucn4jfscbw Xvurm4pglk65pK97H81kDKkuKI YzSWP7MOYePDWyoIadgz3wdB1l Ii8+YZqpa5jem8vsgWp3ZbAz EGIwocIozXwbAKX9n9DyCn39O5 HmgVxfy8IvZjk1bc55dKWls5C4 vXL4DSjdXPHemF6cIVywMoN6 FHVxSfEodC39qWDtVWjrKg8mgJ lnsSjgWF5bLNOdrflrCDDscG9e BLFlpLFwyTjwPA5uMGWklrzp k242RvAyMKB8QNOyaMNrX2JjpN 7gGbNvFTAlFIThW7AonUTkTVzm W637UXtjUjM4NYWtzdPdJ9Ll YUBjcCygQcY8s2R5Bt3Dc0Shnq elLMW3VMyfLRSzRpB3QlAtDsI8 R6NfEjd0XMQaxUvePN6qB3Ik XJWovhksixdlkIR1UWPuQHZezI 32cVAcWQqlDt0py9J7b788HJQt YOGgrV97Lx7xdVbiPTPnfRIF pH3wukhrl2yzrllsWqCaZSPkVO m6MFr8UPXflVodHfAdGYQ1HbN4 XXQ3uNPbtX4ngIyktmwahK5e Oyc+G31hcK5uDKH6LLM8nsthQQ WpxgRhDQ11BC02C9NgDlcwmNLx bGU+BKBdadRhqWpaQL2iXnNl h2smh7FzHMczO6XvOFEkCTkqKq c1PLNkITC3rHM3hH4oZOZzMTzp i5M6cIL1D0ZfvgCykj7lt6er WXAzUWabT12lxZNfw2U6XJDfiH X6SQTbnPysZhSfvI56Zme+PGNv dZhsk0HwUqshv2gxu2ofdKq2 TcLiNCNdyaZyyFscPYW7u0PqYe 54Y87uXJnfKDPxQZUbTPHeYFJv iMonpa1ywS4xYo9+PGNvbCB3 tGO6xI3yEMKkXiY5TWfnJ488Za ZinURlRjcfe5zdv3bmpSt2RfRn ILHpxdXeaYnyRCH7e7MtIo43 I40pHJfvQLLxIVQzXRUqRZZowA adjf3nuI9xRr4+KA6ib0yuxe19 cQ07pUA+UQMhIDH1zVvgDQhk QAPapM0zNQdxNwB2RMNbXqLqhH 74aSSgBYbiTf4wiOhrtPvoZW4r KVIxhsgyf873AkQtw9ycIXZb bMObDXbbLKW3Y46rq7U0ZDHeWT EfFES5aQE2rQ2ycIbltxwkzAEg jQyrkvIedEwfUCzaKQoaH706 IHRvcDsnPlBhdGllbnQgTmFtZT w2T0FfAqs6YVXvxWwyCV9blZMq WJbeQr4dtAtecIloNM6bGDXw jgwmj697LsNpv3qlFAQleTFpUE ncURZ0C56cm1D9NWAdQBLiUTQ6 wOI8cS1dmGoackbedHJblDyb fyGqbVlvSSwtDDwrD202XHXloJ joWvXgofWpSTTljWC7TI62SM68 iFWbz8R2cJZ6H0FfXFDfywnv danykKP0MBBpEQOeeJ41Vd5pjL qqQa4uAPErRGV4CTQtsWYwA2Je gV1aXtMwNLTkHVEgT1PdyXUl FCgfA214WGxvJfA3WLBnlyKoP7 QuLHFmqYxwUeB5e6G6Ez8PT8C3 YY75FE80gTVwt5T5cDR0X6Ev PCJwjpcwuoalmOA0NWIzIMPjhA 19Az2eeIfxRk0xDTFjMIO6AHIw bSDcD2NamS0pQqHbHUVuMYCw K8DifJIkUCscP427DEbjJzM1SF HgluSqX7AbJMBakOrgFyK7h0E7 Ic6TNJe4XY49CY16kYHbj0V8 pXR9J4ImHVOkaxvhhxpvcWI6EN IuNLOvcY59Gi3jlGefLy3tBGVq SXT7SBSfwVVkX1KgpB9nMsVv ORIuECLjQ4EwlEOyHEyjS221KN nqAiT6KMJtknBgA8DdGWNvoIyl FeS8o9X9Rx8HMIXcKZ29PPY4 fRA8PZ61ED42R6LgKexogBObuG U+PHRhYmxlIHdpZHRoPScxMDAl OqGizWztHP8pDg3jCJEdVVOv sHjneBVrTkFlm6xvJWFnDCnmGS 4hzCjjF6RfcIK3KGPkd5j4Bw35 G65uE3AohGT+GQGkpKQ0hMN3 oO1bQiGqFhB5FWjnG825EhGrbN JxNzjdr2zzs5dqnGf8AvR6RROe tyEqmPjrNVN2j3WaFi50R60i IHdpZHRoPSIxNSUiIHZhbGlnbj 3gbB5kIf5+IMMarBP3mUC8cL4g DtXqVbH5FAaxB428QoYlxFFr Ljfgv3gxo0luxKq2DuJsZTXhpj TtyUpmYAD7d9YzQe97M1YnmSzu s4NhNvj6gm39rRXqu9Y4eEX4 E9GfODDirgvdwVNdhZvtCF4cLQ MzdnepMCDyfS9eLPKvF2e4QcBc UxX6BDkbG8BnbyY6VZBunHOy YLqqOBC8H16mi6M2UYXyEDQxTY Y0rAP7rU1lzQkoiifbbDJrxXwa tnLgnBmfSWarNMczM809ONDq vDgoPEKhtM8lJTKxmKXnsOeyNT 7hDAJzobioEtELF7DKE5IxQEXQ BNMAD1oTKM87FN25oNSfn6K2 nPG3H9IzSKQwjctagfqdrAW7ZK KpGDKwuY67wTHqZNfzXh3dc3W9 s176RKUaGVZavI30Ej7unVmh QZSuiBHGbK6pozwkf9zgxdowPo EdLIBvNGi6GIa2EXBjxTueYuPx YCU0RsH2IUN8cROysS1poLxo ojqixL9vKtu+DGBeJLZfMRd5Ls wvdGQ+ICKgXAZ4dZyoKNijUHDs jI3kLJQrY0z8LcLpPmB9CUgo A8UcTQWcwncpQp84hX2bRoJaHr F7EBjsX9KgzmF9TRZphCFpJTzm MZN8G63fw0Y6ZFYnLLMyZQD0 zQF0hR0reRtkiyajlAPinUfemi JxbTqqOZyiGYsfY975OZFuaQld Nfv5DNmvMZOrOZ92PP78dAUm b9W7tJK9E8DvPJYifdmbbywelJ H1DBReZXInyY02uWStLGsgQg9x o7V6m666RSTrIUZcdQ75Dp8c mMokTKIfiEMDoC8zcownk2oqft uqThFcMBIfGTq7IQz6NQEvfUty OxIyQCB9JxQ0JPD1qBFmyS9g zYrgrmvlxS6mFlz+RmVtYWxlPC 34UC98lABbx1D1xGE9O5RmXGIy kzqrefazhWA6TASpQRLdfF46 kXGyKPccQy0cd8B8t075UEUyBB NnzJ72Qv2wfKrgLYCoqKFLzX1v qoixo3xnalqfTnDtDYIjOIb4 REs5SYSolIhhNbWqOUX4GwX7JU K2dDUtaC2vfKrfgsekuA8jZgl+ G9AjJCJ3PQBsq944L8VgIxgs dHI+ZI50GOXcHJ55eELgyYLis2 fxzBc8TwYnXKZaEWP7vXqpWMog d2PvIWZnB95yiXLbs4R3NBVv bGnyhACjUrRgxJC4dP8bPCmurw czo1bbzcapIaciw0jpzd41vE29 K35yGXwwUQHwTFDqHVGtTELl cIgcuz0pyX8cUc6+JHGneZD6iJ V9dD9vRcXsLfO1MWxiS547PgKw kBLyBxwil5adp3migJx1GhGn FXYxjoPgnYthKHX1i8PaHb12Z8 9sIHdpZHRoPSIyMCUiIHZhbGln px8bwX9bYq8+OR2ov8xwca38 zX15pOK+DNTlDTM6pOjfDRozYJ BrlN5dTNjzYfM5LJTcCcAvuT58 xTVyUPwtAd6obWakaEkcHK4g KIHynetlc671JxNto3jiFSBjgU MrTGnhSOJ7M95hz9Z0SLArRDYn UZQ3oDM3hT3rjMjhrqdesBBa aPhrtjDebEpcGWwrPJdmJ106IP UkqThaZrAwjARnW2lvfwRAXI7w OjwvdGQ+HIHqXNT9eDefWUtw OFIebV1sQAKpQ1t5HfOsDsJ0DQ giL0ObreS7AAQubNXhTBKbvNYY jL5cuywrr1ckseevMdRsWCDn PEo9SMj4DIMkiElvCuPdHXD3Xk C8CUC6cYKxuS3slQyygvoufQ9w Oyc+RklOOjwvdGQ+PHRkIHN0 wGdmPVhnGKZxjR7wGWMqY9c5Hm GsTcW4SSjcY2RxexZ4WCEysPYy XYWakWRMxE3xtxfhl1meukiy TvOfYVJjRTl8JMi5POAyyDvsHd VrKUG1KyU9VGT6tWLnmS4zeZuj qzjcsL5sIbl+TVJOOjwvdGQ+ AJQhXIB4xQrrADvlCDDokA8sRR MbM4f3MgFoKfQ8ROywW3RhnqD3 ZEGlbJKhNHVvdWDQkQ4fvtsp q1hpilclVwYgSNZaPFn0LVw6RM QiyJfcYtRnDMZ7SpV6JMH6jFSy zF1frNcavsrigK4fBcv+UGF5 GXP4JJ85RT62M0QnXdycdJJzdM U+PHRhYmxlIHdpZHRoPScxMDAl IyLytEqpRC9aFh9iWVVsLLQn bGxh (more content not included)... Normal [facility] Office Visit (Cardiology)on 03-06-2022 Follow-up visit Diagnoses/Problems Assessed Coronary artery disease (414.00) (I25.10) Essential hypertension, benign (401.1) (I10) Hyperlipidemia (272.4) (E78.5) Nonischemic cardiomyopathy (425.4) (I42.8) Body mass index (BMI) of 23.0 to 23.9 in adult (V85.1) (Z68.23) Orders Essential hypertension, benign, Nonischemic cardiomyopathy Renew: Chlorthalidone 25 MG Oral Tablet; TAKE 1/2 TABLET DAILY Patient Instructions Please bring all medicines, vitamins, and herbal supplements with you when you come to the office. Prescriptions will not be filled unless you are compliant with your follow up appointments or have a follow up appointment scheduled as per instruction of your physician. Refills should be requested at the time of your visit. Follow up in 6-9 months Chief Complaint ADINA PERRY is being seen for a 6 month follow-up of. History of Present Illness Patient returns in follow-up of problems as noted. She is doing well. I saw her recently in the hospital after she had undergone some sort of abdominal surgery. At that time she was relatively ill but stable from a cardiac standpoint. I discussed and reviewed with her at the time her recent echocardiogram and stress test both of which were normal because of all the above we continue to believe she is doing well. She has no manifestations of cardiomyopathy or coronary disease at the present time because of this we recommend continued therapy as is. Her lipids also appear to be adequately addressed and because of all the above we make no change and she will follow-up next year Active Problems Problems Chronic pancreatitis (577.1) (K86.1) Coronary artery disease (414.00) (I25.10) Essential hypertension, benign (401.1) (I10) Hyperlipidemia (272.4) (E78.5) Never a smoker Nonischemic cardiomyopathy (425.4) (I42.8) Surgical History Problems History of Back surgery History of Bladder surgery History of Cholecystectomy History of Complete colonoscopy History of Hernia repair History of Hysterectomy History of Knee replacement Current Meds Medication NameInstruction amLODIPine Besylate 10 MG Oral TabletTAKE 1 TABLET DAILY. Aspirin 81 MG Oral Tablet Delayed ReleaseTAKE 1 TABLET DAILY. Atorvastatin Calcium 40 MG Oral TabletTAKE 1 TABLET DAILY. Chlorthalidone 25 MG Oral TabletTAKE 1/2 TABLET DAILY. Dicyclomine HCl - 10 MG Oral CapsuleTAKE 1 CAPSULE BEFORE EACH MEAL AND AT BEDTIME Losartan Potassium 100 MG Oral TabletTAKE 1 TABLET DAILY. Pantoprazole Sodium 40 MG Oral Tablet Delayed Release Spironolactone 25 MG Oral TabletTake 1 tablet daily Vitamin D 50 MCG (1999 [place]) Oral TabletTake 1 tablet daily Allergies Medication No Known Drug Allergies Recorded By: Nae Méndez; 02/22/2021 8:14:24 AM Family History Mother Family history of myocardial infarction (V17.3) (Z82.49) Father Family history of congestive heart failure (V17.49) (Z82.49) Social History Problems Daily caffeine consumption tea and a dr. pepper Never a smoker No illicit drug use Rarely consumes alcohol (V49.89) (Z78.9) Review of Systems Constitutional: not feeling tired. Eyes: no eyesight problems. ENT: no hearing loss and no nosebleeds. Cardiovascular: no intermittent leg claudication and as noted in HPI. Respiratory: no chronic cough and no shortness of breath. Gastrointestinal: no change in bowel habits and no blood in stools. Genitourinary: no urinary frequency. Skin: no skin rashes. Neurological: no seizures and no frequent falls. Psychiatric: no depression and not suicidal. All other systems have been reviewed and are negative for complaint. Vitals Vital Signs Recorded: [id number] 03:48PMRecorded: [id number] 03:25PM Upkcxyxw253, LUE, Qqpqouc156, LUE, Sitting Txyxdxyvb39, LUE, Vwhifig78, LUE, Sitting Heart Rate66, L Radial Height4 ft 9 in Cdeqka119 lb BMI Hfwjufeian12.37 kg/m2 BSA Calculated1.38 Tobacco Useb) No Falls Screening (Age 18+)a) No falls within the last year Physical Exam Constitutional: alert and in no acute distress. Eyes: no erythema, swelling or discharge from the eye . Neck: neck is supple, symmetric, trachea midline, no masses and no thyromegaly . Pulmonary: no increased work of breathing or signs of respiratory distress and lungs clear to auscultation. Cardiovascular: carotid pulses 2+ bilaterally with no bruit , JVP was normal, no thrills , regular rhythm, normal S1 and S2, no murmurs , pedal pulses 2+ bilaterally and no edema . Abdomen: abdomen non-tender, no masses and no hepatomegaly . Skin: skin warm and dry, normal skin turgor . Psychiatric judgment and insight is normal and oriented to person, place and time . Signatures Electronically signed by : Nick Wasserman MD; Mar 06 2022 4:39PM EST (Author) Normal [facility] Tobacco Screening.on 022 Fall risk assessment a) No falls within the last year [facility] y 250 DO Work Phone: Tobacco use status [facility] b) No [facility] 250 DO Work Phone: IntraOperative Documentson 1 05-04-2021 IntraOperative Documents [id number]:127 [facility] General Surgery Office/Clini c Noteon 03-03-2022 General Surgery Office/Clinic Note HPI Staff Adina is a 81 y.o. female here for s/p hernia repair done 02/09/2022 Patient was admitted on 02/24/2022 for abdominal pain and weakness Patient states she is dong better. Some tenderness, bloating. Incisions healing well. History of Present Illness Adina Perry is a 81-year-old female who underwent intraperitoneal onlay mesh repair in a robotic fashion for an incisional hernia. She was seen by our service 1 week ago on 02/24/2022, when she presented with worsening fatigue and general feeling of malaise. CT scan showed normal postoperative changes; however, she was admitted to the medical service after having a troponin of greater than 90 pg/mL. She was consulted with Dr. Wasserman of the cardiology service, who noted that the permanent elevation is inconsequential, not reflective of flow limiting coronary disease. He notes that the patient's troponin leaks and pain is likely related to postoperative in nature. He was not concerned with the troponins at that time and did not believe her to be having a true coronary event. The patient is doing well since her surgery and brief hospitalization. Review of Systems Constitutional: no fever, no sweats, no weight loss. Eyes: no glasses, no blurred vision, no visual loss. ENMT: no dentures, no hoarseness, no swallowing difficulties, no hearing loss, no ear infection (s), no nose bleeds. Cardiovascular: normal blood pressure, no chest pain, regular heartbeat, no heart murmur. Respiratory: no shortness of breath, no cough, no wheezing, no asthma. Gastrointestinal: no nausea, no vomiting, no diarrhea, no constipation, no blood in stool, no change in bowel habits, no abdominal pain, no hepatitis. Genitourinary: no kidney stones, no urine infection, no difficulty passing urine. Musculoskeletal: no pain, no weakness. Skin: no changing moles, no rash, no skin lumps. Neurologic: no seizures, no epilepsy, no headache. Psychiatric: no emotional, no psychiatric problem. Endocrine: no thyroid, no diabetes. Heme/Lymph: no bleeding problems, no anemia, no blood clots, no transfusions. Allergy/Immunologic: no swollen lymph nodes/glands, no IV drug abuse. Other: Additional ROS info: Except as noted in the above Review of Systems and in the History of Present Illness, all other systems have been reviewed and are negative or noncontributory. Physical Exam General: No acute distress Respiratory: Unlabored breathing on room air Cardiac: Regular rate and rhythm Abdomen: All of her incisions are healed. There is no evidence of hernia recurrence in the midline. Assessment/Plan The patient is a 81-year-old female status post incisional hernia repair. She was admitted briefly with postoperative fatigue to the hospital for less than 24 hours under observation. She was discharged home the following day from 02/24/2022 to 02/25/2022. She was seen today 1 week later and followed up with us. 1. Incisional hernia (K43.2: Incisional hernia without obstruction or gangrene) The patient will follow up with us as needed. No heavy lifting, pushing, or pulling greater than 35 pounds for 4 weeks after surgery. She may resume light activity and light weights at this time. ATTESTATION: Documentation services were performed after patient or guardian consented to allow [employer] Contre[employer] to record this visit. ANA M database specialist and provider reviewed before signing. ANA M: Rosario Wright. Follow-up No qualifying data available Problem List/Past Medical History Ongoing BMI 20.0-20.9, adult Incisional hernia RLQ abdominal pain Ventral hernia Weight loss Historical Abdominal hernia Anemia Fecal incontinence History of colon polyps Nausea and vomiting Watery diarrhea Procedure/Surgical History History of hernia repair (02/19/2022), Colonoscopy (01/17/2022), EGD - Esophagogastroduodenoscopy (07/06/2020), Arthroplasty of knee, Bladder operation, CE - Cataract extraction, section, Colonoscopy, Esophagogastroduodenoscopy , History of hysterectomy., Procedure on back. Medications amlodipine, 10 mg, Oral, Daily, Unable to obtain: Patient did not bring updated medication list aspirin 81 mg Oral EC Tab, 81 mg= 1 tab(s), Oral, Daily, Unable to obtain: Patient did not bring updated medication list atorvastatin, 40 mg, Oral, Daily, Unable to obtain: Patient did not bring updated medication list chlorthalidone, 25 mg, Oral, Daily, Unable to obtain: Patient did not bring updated medication list losartan, 100 mg, Oral, Daily, Unable to obtain: Patient did not bring updated medication list pantoprazole, 40 mg, Oral, Daily, Unable to obtain: Patient did not bring updated medication list spironolactone, 25 mg, Oral, Daily, Unable to obtain: Patient did not bring updated medication list Vitamin D3, 50 mcg, Oral, Daily, Unable to obtain: Patient did not bring updated medication list Allergies Percocet (Nausea) Darvocet-N 100 (vomiting) Cary (Vomiting) oxyCODONE (Vo (more content not included)... [facility] Comment on above: Result Comment: Elec tronically Signed By: Jannet ERIC, Jay Lock\.br\Date and Time Signed: 03/03/22 12:50 EST\.br\Electronically Co-Signed By: Rosario Wright.br\Date and Time Co-Signed: 03/03/22 11:16 EST C Urineon 02-26-2022 Bacteria identified Cx Nom (U) Microbiology PROCEDURE: Urine Culture [R1] SOURCE: U CleanCatch BODY SITE: COLLECTED DATE/TIME: 02/24/2022 14:55 EST RECEIVED DATE/TIME: 02/24/2022 16:01 EST START DATE/TIME: 02/24/2022 16:02 EST FREE TEXT SOURCE: Jay Emery DO, DO, Jay FINAL REPORTS Final Report [] Verified Date/Time: 02/26/2022 08:53 EST 6,000 cfu/ml Mixed skin contaminants Performing Locations R1: This test was performed at: [facility], [address] [place] [address], [id number] , , [facility] Comment on above: Performed By: #### 2 [id number], [id number] #### [facility] [address] [place] [address] Coding Summary.on 02-25-2022 Coding Summary. [id number] Gh0bWw +PGhlYWQ+VQ0RHUJkJ82gyAWwg W3GN0wFDF5YVJJCUMQJRF3DUB0 ssRA1CHziI3RzfxKg RiuwjEZvRK68FDq7VKW0uAjdWE frkW1ynHUrI9i2FsXzID93oH58 PJerWCOjIqK8SxUftsrgbAYc G0ruHzKssWYfWxg+PHRhYmxlIH gdMFBgEYgkLQMjDxTwsXriKR1e Jx4wAXCxOZQccBilkZYkMsUq u3yqLCDxPLidDS2rgYwqO9JkqE H3LSYvb2d6Zp56wDJ+PHRkIHN0 gQghDFilg268NsUjx5vhIBA8 eYLuPDyhXYH2M97zt4V7ZUNdKK KcTMB4uAV2xW5luRxdimiiN7Ro uCKcWaY6MLO9dGZioT2jnLzk wuiepO7jXia+D80JOG4EIABIYX 9TZlt1R6UkUfncfYA+VG72OOCw HH11iAFnsQImm7qrqVd5QxCi GTNsXVC5mLayBFlkw8QgNIKwV2 2blXHee9O0FAAiqSpegHIuXkSy bLJ1yK8pXSdqcjztw7odecdd Xqgzz6dgjl03uR32Z15cSFseOQ PpBGD9RRToZTSbuLcrqj2biV9h Ii8+CWsyp8ofd9txzAx2IoGu VDBljaRyjKjfEGX7m3PtEs00E4 GdcDxgt7CbZfj5zn77nDUir4P5 eAH3SWfpGZPowF1bCJljWwH0 DCRaWhJecB84wKQwFEmoQu9gzU jtbKzhII0gDGZeuzhiPUIbtZ5o FCMboQYaqGdrAA5xEMEprdwf m263JtOxYQT1AFNutWDuX0LdmH 3iPtPuSVWvZPHgK7SiaTZiJXom T899DIbaDpS4XGZgfgVoC1Rj WMMfjDhuYnL2y9F8Ss7Lm8Zbbn ljTEE9DVecGYEuLgZsOmZvMnA8 G7JxFkd5BLXfqIhpNU0uE5Jh FMRfakasmqjbpLC6GDAkRHNrmE 80nEGgDRqiGc2mz5S8g558ZZXv WFFxgF44Ki4hsUlgQRSuqAAV oF4debwwg9ruentnGuPyTKPyGT u5AQt5JXJayRkuPiGaAYH2WeW9 ZRX7rLTncG9pnDwhayfhoT6h Oyc+Z82rpC6vUOO5CRS8ihljIC MfugWzVZ50KE07T7XiDubcpEWo bGU+OTMdvcPyvYrhAA0fHfCz q1ahb4YmWNcfI6OzNKQdIPdnKx y6DQVsYCG6hST8oL3kKOEcZNhr l8I9zDD9F9PiiuLriy3ju8kc CJBzCRqeX11aiCWrd4W8EGBfxV D3MARtnRghYdOumM88Nje+PGNv tBrea0EfAltwu8jpi5kxfMb7 KnNlBWUakbUawSrvHGR0i2NeHq 10M92xWJflZLYgGOFxBTIiHSLf nIpmov1yjF3pSf2+PGNvbCB3 pHG8sU2dEHByNcT5YIqqW100Yr XytTLfFjrek3rzh5uqhRp5RsZe YMVdvsWwxPzfVVL2o5QzCw13 G45hYCobDIHbLZNgUZXzLOEplJ wpnz5mkW9jSi4+TU4kz5wsgm58 jW53pPK+UOAoJQK9dCwpCCdh WWPxdW4eGQrzBzU2EXMlIlLtuY 78aKPgFUgtXg9rjEcovCemWW8z CEKbevopn206IdEoe2lhGSBw fYAaJVgiMMA6J25ew2B5HFZkHU YiKAK7cGR5dU9yxEyigdmefXDs mKnieoWojRbgHYndXZgjT458 IHRvcDsnPlBhdGllbnQgTmFtZT y7U9BkCkf3XMXapHgaQP9iwGRm EMemIq3lrWzcjSjbYH0nNJCt uefqh179TePcp0nlDASwsQLpPM enUVX3R34oo1G4SAJwWAMsZJF1 jZJ8oI0vzDctculyvUJqcOjp dmGqkLlvFCskTEzuO534HRMqdW lhGtZhrfZzBYNblLO9MY19ZX93 wNGzl3E2nTK7U7OmCXZemjzh avtlpMO6LSTaYJZppI13Ma0wzX ksMv7sVWWtQAC7FCAtbYVsM7No gU8uEyFpQUUfMRWhI2OdsRWw SQtbG145ZEzcDeX6AJXunuXgI1 XtZOWtiOuaPwB7f6O3Mc1IR7G1 IB06XF81yPVye3G0xAW9D9Ng OJLcoemxtcoxrOX7WQInKMQtjL 89Bj8ztVyzCp7tEZYjMEC2MCEd wVJgV3EgaB3dGkYqWBTuQREg J0PowTPvTOyhS000ENawAhJ0XS RvnvXzA1XaZYJjkLeyHfT5f5I4 Ai2XXAn2DU12RJ92sCUua6A6 mSP8Y4EnVPSxyaexnythlJN2FF PmKBMmlN61Lv8gpCvhFu9cINBp SHZ1AYUerTDmT3EjiM6tRqMn NFRhGGLnB7WryGScLDekE951OI llEgA1MZNtvkZkS0GmFTEgvHwu WpK5h0Q9Rq8TXMBuEV01VNV3 nCO4KF12BH32J3HeEadxeYRvnX U+PHRhYmxlIHdpZHRoPScxMDAl ClEacWevSC2wTs5kUTOvXEGc mGzamVRxHrKjh5akPRQgGBhgAH 0duAhyO5AcbNT1IJHmc5y8Kh96 E54zU1MicZX+MFIabGO4iGL8 eA2lWbZpQtD1JHnjC822XgOegP ZjUreqn2lbk7zcfQk8YxS2YDVm maTxrMikUOO4q8FaSy49E02x IHdpZHRoPSIxNSUiIHZhbGlnbj 3lrL9cHy6+XILxqDD9gRH7sN0a CxCoTtB0YHrwL200QkGiiPTf Zhvgz1gwz4qznDn8GzLjAIGgjn EcpHwyXWD7k7YmRh14R0ObbGte m8JtCgh1nr26fQSbo5L9cTS2 K9FfVIQuwotopMTyvLfsTU3iTT HrzmyePWLybK6xBTRkE8i4GzIr HgP0DFatN1DmofV5PYWzrEBf CVolSPD4K37lz1N6NMJrNWQaXL M0aVU1vD5vvWcaxruavUDejLha tgLunRlpYAneUKxkJ453DRBs eHbmEWCjyV2vDQNmaJFdsSkwZU 4kGSTiizurNcFAI3EQA8MwIPPF QBSAB6lPHQ35HA55dGGty5L3 bZK2S5GwIIMouvpggtltsQH6RZ XtMSMgzO55aSLeCTzhIt0hu4V9 y696UBSmOQZtwX67Bz6bxVtn SXByjVQXrA7wpfuqq5osgwkbKa EzCFEtAPj6GLb4EDGhgLefGhJl RCU8XiJ6MIJ9tMNdpH2keJjn enyzkU0yLql+UOVaULIeTLg5Nd wvdGQ+RIAmGCO9kKpgPLisSHXs iA1uSMAaC6l1CyTnSlV2HOfe B3AoYCJtpxqcUc75xR9xDhJhMi O8GZpnW9UpjkW4YCPpdFPaEXgd QUG7O52os2N8CRLdTLSiNIX2 lUH8sU6lkYddvwidaZNshDrrlk TxqPbaXSwyWYhaI374OJEyyOlr Dvt5BOlxUYScCL22PW78sKDq q1H0uAS4F3IxFDUeoubozoxzdG L6LZWaTJVllZ59wQQoVNfpCg4d c3Y7e382HGGjQNBspA86Pz5m pEleYHMncCSBzF3qycjtr9ujfz faSgYmVWDaKFk7AYq6OZHigRwh SiIbXVR4MgA1KPW7mQAroG1i jRahevytuA3vQwz+RmVtYWxlPC 53VE36uMGkq9T1sNS5U1BsRLNk fvewxsgxhED1XKUuNJEenT77 hZCmNHnjCl0mg4R2u202IYCxYD NroY31Ft2dlZtjXPTauDEPbV2w rnbxv7ijstbmYrIdBFHxGGi6 LNd3MLXvtBziPgQzEWQ2EmZ3DM C9kFWafV7cgEpxufvkdK1qOtd+ BI0tiAvupW6hgX2ALP5bGQPk rZSGwSWxZCU5AF02CX97M3SvBb wvdGFibGU+PHRhYmxlIHdpZHRo CUmjRHUmNfLegDzfWM9oCy0y OLCuHXJdfKzkqKZsNfNzd3mgUK NjZRgvMA8lzCeiU1YaoXD0XGKa t2u7Wn89Q14oW1OtoPA+PGNv nVX7gJT2qV0sMjHcAmI9TDrvX0 84YdOdeNJuYkexs6xeb3vwfLz5 BcJxDGKxtgUtiCrcVGU0c0Un Ul75Y34mXWfjZYOsXDQnFOMdIN BrdNyfsi5vxW5uHb6+PGNvbCB3 bKR0sN0vNxKoEsQ8EMgoK793 HsVdjVHqImguQ79oS0TntCA+PH ZiSzi1IYEyqAokEV4yeQMcODfd My1iQID1RrLwWaHqIKdqT9Hx HFEqhklpgvkdjLG0BSFyIVIryS 56Hv3ycSwiQg3rEKRsXVO2WWFm mLByI9BreF5lYpNbEQMfEZZh F2DtjMEdDBlhL647EJsoIkS1ZB FyupQqB5AsKPUbjQmoEwD6x0C2 Ga4TjJgipWVhUS2bUsIjMQp0 E0CuPsg2ILVhgArzJV0ivWHoVU wtLi1lcBsotXqqSW4cOFCgwlea c679DyMsm6gwSIHqqVBvVFwj MNO1J82nx1Q5MOMoMYQsVOM9cC M7jY3ofFiwuzjneZDfjIhfykCf hKhyLQlsEGpwJ890YIIdmQlx ZlHFEkv2F7ToErz5QWVnfWfcXZ 7acHAgUKliBr0hmRaqoZerSG7i LPIgeuiiw168UyVnf7hqRKOe xZCpKStvNLG8K81zs2Y5JHMcNK ScVTA0uHY6hS9hjArzjmbwxVRc xNnkkuOguFllGUvnTXqpB828 QNSwrHxfYp5IDnh6L8WqAkx1MN GdfKnqVH3cgSPqUKsdKl0ysWfj lQuaCB0tZACmuwtlo660SaKm e4jdPOIbtEXmDKnaTND3Q81zv5 F5QYFeFJMhOLP4tVW1kQ0coZin bjogbGVmdDsgdmVydGljYWwt WRjcL205GGNvgRrtCuHyrAZlSb wvdGQ+AM34gt05C8WqSwcvUfo6 QPByGWM2kYA3pM4bENWiDFcb c3R5 (more content not included)... [facility] Consultation Noteon 02-26-20 Consultation Note Patient: MAYA PERRY Age: 81 years Sex: Female : 1940 Associated Diagnoses: None Author: Lisy ERIC, Nick Cheema Impression and Plan CONSULT DICTATED TRIVIAL TROPONIN RISE DUE STRESS RELAATED TO INTRAABDOMEINAL PROCESS HAD NORMAL CARDIOLYTE IN AUGUST OF 2021 (5 MONTHS AGO) -- NO SCAR, NO ISCHEMIA, NORMAL EF HAD NORMAL ECHO IN AUGUST OF 2021 REC: TREAT INTRABDOMINAL PROCESS CARDIAC STATUS IS STABLE AND NO WORK UP NEEDED [facility] Comment on above: Result Comment: Elec tronically Signed By: Lisy ERIC, Nick Cheema\.br\Date and Time Signed: 02/25/22 14:40 EST Discharge Instructionson Discharge Instructions [id number]:127 [facility] Inpatient Clinical Summaryon 02-25-2022 Inpatient Clinical Summary [address] [address] Clinical Summary Person Information: Name: ADINA PERRY Age: 81 Years : 1940 Sex: Female PCP: ADRIANA CRUZ DO Marital Status: Race: White Ethnicity: Non- or Language: Omani Visit Id: Visit Reason: Fatigue; Post surgical problem; ABD PAIN, ABNORMAL CARDIAC ENZYME LEVEL Speciality: Acuity: Enc Type: Observation Med Service: Medical Arrival: 02/24/2022 13:07:19 Discharge: Dispo Type: Admitted as IP to this Hosp Address: [address] [place] [address] [address] [place] [id number] Provider Notes: Diagnosis: 1:Abdominal pain; 2:S/P hernia repair; 3:General weakness; 4:Abnormal cardiac enzyme level; 5:CAD (coronary artery disease); 6:HTN (hypertension); 7:HLD (hyperlipidemia); 8:GERD (gastroesophageal reflux disease); Personal history of other diseases of the digestive system Problems Active Incisional hernia BMI 20.0-20.9, adult Ventral hernia RLQ abdominal pain Weight loss Smoking Status: Never Smoker Functional Status: Sensory Deficits: History of Falls: Mobility Assistance Prior to Admission: ADLs: Independent Current Level of Assistance for Self-Care/Mobility: Cognitive Status: Oriented x 3 Allergies Percocet (Nausea) Darvocet-N 100 (vomiting) oxyCODONE (Vomiting) Cary (Vomiting) Measurements: Height: 146 cm Weight: 49.7 kg Blood Pressure: 149 mmHg / 66 mmHg BMI: 21.58 kg/m2 Procedures No Procedures Documented Immunizations No Immunizations Documented This Visit Final Med List: amlodipine 10 Milligram By Mouth every day. aspirin (aspirin 81 mg Oral EC Tab) 1 Tablets By Mouth every day. atorvastatin 40 Milligram By Mouth every day. chlorthalidone 25 Milligram By Mouth every day. cholecalciferol (Vitamin D3) 50 Microgram By Mouth every day. losartan 100 Milligram By Mouth every day. pantoprazole 40 Milligram By Mouth every day. spironolactone 25 Milligram By Mouth every day. Care Team Members: Attending Physician: J Carlos KEN MD Consulting Physician: Jannet ERIC, Jay Lock; Mary Ayala MD Referring Physician: Follow up: With: Address: When: ADRIANA CHANGDELL [address], [address] [place] [address] [facility] (1) 03/10/2022 11:00 AM Comments: Appointment will be with the CORN DETASSELER MACHINE OPERATOR With: Address: When: Jay Power 03/03/2022 9:00 AM Comments: Call for followup appointment 2-3 weeks or if already scheduled keep appt. Type Location Start [place] [facility] 03/03/2022 9:00 AM 03/03/2022 9:20 AM Confirmed Patient Education Information: Weakness; Abdominal Pain, Adult, Bgkd-ek-Xaly [facility] Inpatient Patient Summaryon 02-25-2022 Inpatient Patient Summary ADINA PERRY :1940 Visit Date:02/24/2022 Inpatient Discharge Instructions Your Care Team Admitting Physician - MELI ERIC, J Carlos Consulting Physician - Jay Power MD, MD, Mourhaf Reason for Your Visit Had hernia repair done and hasn't felt well since. Has been sleeping Your Diagnosis Abdominal pain S/P hernia repair General weakness Abnormal cardiac enzyme level CAD (coronary artery disease) HTN (hypertension) HLD (hyperlipidemia) GERD (gastroesophageal reflux disease) Fatigue Personal history of other diseases of the digestive system Post surgical problem Tests Performed Automated Diff Blood Culture Charcoal -- Results Pending -- BMP CBC w/ Auto Diff eGFR Hepatic Function Panel Lactic Acid Lipase Level Troponin Troponin 0 Hr. Troponin 6 Hr. Troponin 9 Hr. UA With Cult Reflex CT Abdomen/Pelvis w/ Contrast CTA Chest XR Chest Single View Please visit your patient portal for your results or contact your primary care physician. This Is Your Medications List amlodipine aspirin (aspirin 81 mg Oral EC Tab) atorvastatin chlorthalidone cholecalciferol (Vitamin D3) losartan pantoprazole spironolactone [Image Removed: STOP]Stop taking these medications albuterol (Albuterol (Eqv-ProAir HFA) 90 mcg/inh inhalation aerosol) isosorbide mononitrate sertraline Procedure History History of hernia repair (02/19/2022), Colonoscopy (01/17/2022), EGD - Esophagogastroduodenoscopy (07/06/2020), Arthroplasty of knee, Bladder operation, CE - Cataract extraction, section, Colonoscopy, Esophagogastroduodenoscopy , History of hysterectomy., Procedure on back. Discharge Vitals Temperature (Oral) 36.8 ?C Heart Rate (Monitored) 64 Respiratory Rate 16 Blood Pressure 149/66 Height 146 cm Weight 49.7 kg BMI 21.58 What to do next Instructions From Your Doctor Event Name Event Result Discharge Activity Activity as tolerated Discharge Diet(s) Regular Pending Diagnostic Test Results None Pharmacy Information [facility] [place] Previously Scheduled Follow-Up Appointments Thursday 9:00 AM EST With: Jannet ERIC, Jay Lock Where: [facility] General Surgery [facility] Inpatient Patient Summary ADINA PERRY :1940 Visit Date:02/24/2022 Inpatient Discharge Instructions Your Care Team Admitting Physician - MELI ERIC, J Carlos Consulting Physician - Jannet ERIC, Jay Ayala MD, Yon Reason for Your Visit Had hernia repair done and hasn't felt well since. Has been sleeping Your Diagnosis Abdominal pain S/P hernia repair General weakness Abnormal cardiac enzyme level CAD (coronary artery disease) HTN (hypertension) HLD (hyperlipidemia) GERD (gastroesophageal reflux disease) Fatigue Personal history of other diseases of the digestive system Post surgical problem Tests Performed Automated Diff Blood Culture Charcoal -- Results Pending -- BMP CBC w/ Auto Diff eGFR Hepatic Function Panel Lactic Acid Lipase Level Troponin Troponin 0 Hr. Troponin 6 Hr. Troponin 9 Hr. UA With Cult Reflex CT Abdomen/Pelvis w/ Contrast CTA Chest XR Chest Single View Please visit your patient portal for your results or contact your primary care physician. This Is Your Medications List amlodipine aspirin (aspirin 81 mg Oral EC Tab) atorvastatin chlorthalidone cholecalciferol (Vitamin D3) losartan pantoprazole spironolactone [Image Removed: STOP]Stop taking these medications albuterol (Albuterol (Eqv-ProAir HFA) 90 mcg/inh inhalation aerosol) isosorbide mononitrate sertraline Procedure History History of hernia repair (02/19/2022), Colonoscopy (01/17/2022), EGD - Esophagogastroduodenoscopy (07/06/2020), Arthroplasty of knee, Bladder operation, CE - Cataract extraction, section, Colonoscopy, Esophagogastroduodenoscopy , History of hysterectomy., Procedure on back. Discharge Vitals Temperature (Oral) 36.8 ?C Heart Rate (Monitored) 64 Respiratory Rate 16 Blood Pressure 149/66 Height 146 cm Weight 49.7 kg BMI 21.58 What to do next Instructions From Your Doctor Event Name Event Result Discharge Activity Activity as tolerated Discharge Diet(s) Regular Pending Diagnostic Test Results None Pharmacy Information [facility] [place] Previously Scheduled Follow-Up Appointments Thursday 9:00 AM EST With: Jannet ERIC, Jay Lock Where: [facility] General Surgery [facility] Inpatient Patient Summary [place] [address] Patient Discharge Instructions PERSON INFORMATION Name: ADINA PERRY Date of : 1940 Current Date: 02/25/2022 15:24:21 PHYSICIANS Admitting Physician: J Carlos KEN MD Primary Care Physician: ADRIANA CRUZ DO PCP Comment: Discharge Diagnosis: 1:Abdominal pain; 2:S/P hernia repair; 3:General weakness; 4:Abnormal cardiac enzyme level; 5:CAD (coronary artery disease); 6:HTN (hypertension); 7:HLD (hyperlipidemia); 8:GERD (gastroesophageal reflux disease); Personal history of other diseases of the digestive system Condition at Discharge: Stable ADINA PERRY has been given the following list of follow-up instructions, prescriptions, and patient education materials: PATIENT FOLLOW-UP INFORMATION Diet: Regular Discharge Activity: Activity as tolerated Discharge Restrictions: Wound Care Instructions: Remove Your Dressing In Days Call Your Doctor For: IF UNABLE TO CONTACT YOUR PHYSICIAN AND YOU FEEL IT IS AN EMERGENCY, GO TO THE NEAREST EMERGENCY ROOM OR CALL 911 Home Treatment: Devices/Equipment: Cane, Walker Special Services: Additional Instructions: Primary Care Physician to provide the following pending test results: None Follow up: With: Address: When: ADRIANA CRUZ [address] [place] [address], [place] [address] [place] [address] [facility] (1) 03/10/2022 11:00 AM Comments: Appointment will be with the CORN DETASSELER MACHINE OPERATOR With: Address: When: Jay Power 03/03/2022 9:00 AM Comments: Call for followup appointment 2-3 weeks or if already scheduled keep appt. In the event that this physician does not participate in your insurance network, please consult with your insurance company to find a nearby participating provider. Type Location Start [facility] Post Op 15 [facility] 03/03/2022 9:00 AM 03/03/2022 9:20 AM Confirmed Comment: ORLANDO Haider PATRICIA, have received the attached patient education materials/instructions and have verbalized understanding: Patient Signature __ Date Clinican/Nurse Signature Date HERE ARE THE MEDICATION CHANGES THAT OCCURRED DURING YOUR HOSPITAL STAY Medications to Continue with No Changes Other Medications amlodipine 10 Milligram By Mouth every day. Last Dose: N ext Dose: aspirin (aspirin 81 mg Oral EC Tab) 1 Tablets By Mouth every day. Last Dose: N ext Dose: atorvastatin 40 Milligram By Mouth every day. Last Dose: N ext Dose: chlorthalidone 25 Milligram By Mouth every day. Last Dose: N ext Dose: cholecalciferol (Vitamin D3) 50 Microgram By Mouth every day. Last Dose: N ext Dose: losartan 100 Milligram By Mouth every day. Last Dose: N ext Dose: pantoprazole 40 Milligram By Mouth every day., pancreatitis Last Dose: N ext Dose: spironolactone 25 Milligram By Mouth every day. Last Dose: N ext Dose: No Longer Take the Following Medications albuterol (Albuterol (Eqv-ProAir HFA) 90 mcg/inh inhalation aerosol) 2 Puffs Inhalation every 6 hours as needed Shortness of breath or wheezing. isosorbide mononitrate 30 Milligram By Mouth once a day (in the morning)., Patient states she only takes a half a tablet daily sertraline 25 Milligram By Mouth every day. Comment: MEDICATION LIST PROVIDED FOR YOU IS A LIST OF YOUR CURRENT MEDICATIONS. PLEASE CARRY THIS WITH YOU AT ALL TIMES. amlodipine 10 Milligram By Mouth every day. aspirin (aspirin 81 mg Oral EC Tab) 1 Tablets By Mouth every day. atorvastatin 40 Milligram By Mouth every day. chlorthalidone 25 Milligram By Mouth every day. cholecalciferol (Vitamin D3) 50 Microgram By Mouth every day. losartan 100 Milligram By Mouth every day. pantoprazole 40 Milligram By Mouth every day. spironolactone 25 Milligram By Mouth every day. Pharmacy Information: [facility] Comment: PATIENT EDUCATION INFORMATION Instructions: Weakness Weakness is a lack of strength. You may feel weak all over your body (generalized), or you may feel weak in one specific part of your body (focal). Common causes of weakness include: ? Infection and immune system disorders. ? Physical exhaustion. ? Internal bleeding or other blood loss that results in a lack of red blood cells (anemia). ? Dehydration. ? An imbalance in mineral (electrolyte) levels, such as potassium. ? Heart disease, circulation problems, or stroke. Other causes include: ? Some medicines or cancer treatment. ? Stre (more content not included)... [facility] Interdisciplinary Note - Reji e Manageron 02-25-2022 Interdisciplinary Note - Naval Architect Specialist CRM to room to discuss DC planning. Patient is alert, oriented and participates in DC planning. Patient is from home alone, has good family support. Patient daughter will transport at DC. Patient PCP, home DME and insurance reviewed. Patient is observation for abdomen pain and abnormal cardiac markers. Patient had a CT of abdomen and chest, see reports. Patient was rounded on by [facility], CRM waiting for updates. Patient is getting IVF. She is pending consults of gen sx, and cardiology. Patient was evaluated by PT/OT and they have no recs. Patient denied need for HH or PT. Patient provided CRM contact information, white board updated. Patient anticipated DC later today or 02/26. CRM following [facility] Comment on above: Result Comment: Elec tronically Signed By: Viola Silva\.br\Date and Time Signed: 02/25/22 10:31 EST Interdisciplinary Note - Sharon n 02-25-2022 Interdisciplinary Note - OT OT six clicks score: 23/24=home with no OT needs. Pt completes ADL functional transfers including commode transfer supervision. Pt completes toileting and pant management Mod I. Pt verbally reports no issues or concerns with going home safely and independently once medically stable. Normal [facility] Main OR Intraoperative Recor don 02-25-2022 Main OR Intraoperative Record Normal [facility] Monitor Recordon 02-25-2022 Monitor Record [id number]:127 Normal [facility] Monitor Record [id number]#[id number]:127 Normal [facility] Postoperative Documentson Postoperative Documents [id number]#[id number]:127 Normal [facility] Troponin 9 Hr.on 02-25-2022 Troponin I.cardiac [Mass/Vol] 90.10 pg/mL Abnormal 10.10-27.1 0 [facility] Comment on above: Result Comment: Crit ical Result verified by previous result\ Critical Result I_hsTnI:90.1 Called to ARMAND TORRES at 3N by CHELLY ALARCON and read back for confirmation at 02/25/2022 00:17:51 The 95% CI (Confidence Interval) PPV (Positive Predictive Value) for myocardial infarction in females is 38 pg/mL, in males 51 pg/mL. The results should be used in conjunction with clinical conditions of myocardial infarction. (Access High Sensitivity Troponin I Instructions For Use, [employer], November 2017) Performed By: #### 1 [id number] #### [facility] [address] [place] [address] Auto Diffon 02-24-2022 Basophils/100 WBC (Bld) 2.8 % High 0.0-2.0 [facility] Comment on above: Order Comment: Order Added by Discern Expert. Performed By: #### 1 [id number], 9261661, 7081986, 1437067, 34912194, 8288324, 1508466, 3511691 ####[facility] [address] [place] [address] Basophils/Leukocytes Auto (Bld) [Pure # fraction] 0.2 E9/L Normal 0.0-0.2 [facility] Comment on above: Order Comment: Order Added by Discern Expert. Performed By: #### 1 0867590, 7800648, 9126808, 7350583, 45064499, 7692560, 2383271, 0206265 ####[address] [place] [address] Eosinophils/100 WBC (Bld) 3.6 % Normal 0.0-8.0 [facility] Comment on above: Order Comment: Order Added by Discern Expert. Performed By: #### 1 6243798, 4714066, 6578033, 0969413, 87964360, 8375782, 0732130, 8458687 ####[address] [address] Eosinophils/Leukocyte s Auto (Bld) [Pure # fraction] 0.3 E9/L Normal 0.0-0.5 [facility] Comment on above: Order Comment: Order Added by Discern Expert. Performed By: #### 1 1133864, 4846279, 7810324, 0677992, 96176514, 9210231, 0074439, 6068355 ####[address] [address] Lymphocytes/100 WBC (Bld) 12.3 % Low 14.0-50.0 [facility] Comment on above: Order Comment: Order Added by Discern Expert. Performed By: #### 1 8872885, 2135318, 4561144, 1622318, 70892894, 7267699, 8717784, 4708238 ####[address] [place] [address] Lymphocytes/Leukocyte s Auto (Bld) [Pure # fraction] 1.0 E9/L Normal 1.0-4.0 [facility] Comment on above: Order Comment: Order Added by Discern Expert. Performed By: #### 1 9455787, 6225038, 7701179, 6190118, 86345567, 8452979, 4267726, 2882920 ####[facility] [address] [place] [address] Monocytes/100 WBC (Bld) 7.4 % Normal 4.0-14.0 [facility] Comment on above: Order Comment: Order Added by Discern Expert. Performed By: #### 1 7673365, 9300828, 2557703, 5598289, 07368476, 7125059, 2405561, 4647486 ####[address] [place] [address] Monocytes/Leukocytes Auto (Bld) [Pure # fraction] 0.6 E9/L Normal 0.2-1.0 [facility] Comment on above: Order Comment: Order Added by Ramírez Expert. Performed By: #### 1 2051360, 4033279, 5794472, 8785588, 74887130, 0101605, 1490778, 9853618 ####[address] [place] [address] Neutrophils/100 WBC (Bld) 73.9 % Normal 36.0-75.0 [facility] Comment on above: Order Comment: Order Added by Ramírez Expert. Performed By: #### 1 1164683, 8362659, 8506634, 3948459, 14449147, 4022952, 9110427, 8119293 ####[address] [place] [address] Neutrophils/Leukocyte s Auto (Bld) [Pure # fraction] 6.2 E9/L Normal 2.0-7.5 [facility] Comment on above: Order Comment: Order Added by Discern Expert. Performed By: #### 1 0028309, 8152635, 1863069, 0555212, 57286845, 9473706, 9558261, 9810096 ####[address] [place] [address] BMPon 02-24-2022 Creatinine [Mass/Vol] 1.1 mg/dL Normal 0.5-1.3 [facility] Comment on above: Performed By: #### 1 6373849, 3896853, 6056003, 4176034, 79561949, 3616808, 9177478, 9895756 ####[facility] [address] [place] [address] Urea nitrogen [Mass/Vol] 18 mg/dL Normal 5-21 [facility] Comment on above: Performed By: #### 1 7553012, 1699346, 3315308, 9164338, 36903290, 0664005, 4081295, 8912671 ####[facility] [address] [place] [address] Urea nitrogen/Creatinine [Mass ratio] 16 No Units Normal 10-20 [facility] Comment on above: Performed By: #### 1 3748015, 9768958, 9454620, 1863711, 21847926, 3403593, 1671688, 5839384 ####[facility] [address] [place] [address] Anion gap [Moles/Vol] 16 mmol/L Normal 6-16 [facility] Comment on above: Performed By: #### 1 3885851, 7186611, 8407963, 5705296, 99157537, 3429789, 6874400, 2295180 ####[facility] [address] [place] [address] Calcium [Mass/Vol] 10.5 mg/dL Normal 8.9-11.1 [facility] Comment on above: Performed By: #### 1 3924982, 0210011, 6380646, 3213982, 98088657, 7952815, 1185258, 2815539 ####[facility] [address] [place] [address] Chloride [Moles/Vol] 97 mmol/L Low 101-111 [facility] Comment on above: Performed By: #### 1 6829794, 2854038, 8625113, 2180830, 40931360, 6869163, 3989964, 7275036 ####[facility] [address] [place] [address] CO2 [Moles/Vol] 28 mmol/L Normal 21-31 [facility] Comment on above: Performed By: #### 1 4586478, 4230782, 8522833, 2081231, 56302469, 4288271, 5090187, 7622969 ####[facility] [address] [place] [address] Glucose [Mass/Vol] 137 mg/dL Normal 55-199 [facility] Comment on above: Result Comment: If t his glucose result represents a fasting glucose, interpretation should refer to the following reference range: 55-99 mg/dL Performed By: #### 1 8829250, 6625172, 4568406, 5387003, 28529225, 2866913, 5370218, 4634552 ####[facility] [address] [place] [address] Potassium [Moles/Vol] 3.5 mmol/L Normal 3.5-5.3 [facility] Comment on above: Performed By: #### 1 4463602, 6682398, 9528951, 8461725, 15693007, 4515685, 7918954, 0863083 ####[facility] [address] [place] [address] Sodium [Moles/Vol] 137 mmol/L Normal 135-145 [facility] Comment on above: Performed By: #### 1 1975887, 6958700, 3743988, 8430760, 44378758, 1182227, 1339929, 9196782 ####[facility] [address] [place] [address] CBC w/ Auto Diffon 2 Erythrocyte distribution width (RBC) [Ratio] 13.4 % Normal 10.9-14.2 [facility] Comment on above: Performed By: #### 1 9267772, 8168034, 6101688, 3078162, 78482889, 9499471, 8714796, 0328682 ####[facility] [address] [place] [address] Hematocrit (Bld) [Volume fraction] 39.5 % Normal 34.0-46.0 [facility] Comment on above: Performed By: #### 1 6895295, 7448458, 6764494, 5880622, 55021369, 0639419, 2996054, 2036848 ####[address] [place] [address] Hemoglobin (Bld) [Mass/Vol] 14.1 g/dL Normal 12.0-16.0 [facility] Comment on above: Performed By: #### 1 7587508, 9741675, 6108597, 0495170, 78519709, 5971509, 8338251, 8219258 ####[address] [address] MCH (RBC) [Entitic mass] 31.2 pg Normal 27.0-34.0 [facility] Comment on above: Performed By: #### 1 6479566, 2420963, 9083496, 3067579, 14468331, 2521240, 8637301, 5052961 ####[address] MCHC (RBC) [Mass/Vol] 35.7 g/dL Normal 31.4-36.0 [facility] Comment on above: Performed By: #### 1 9187176, 8521603, 3853926, 7026405, 83083080, 2696790, 2256779, 1701270 ####[address] [address] MCV (RBC) [Entitic vol] 87.4 fL Normal 80.0-100.0 [facility] Comment on above: Performed By: #### 1 2901690, 5221536, 4222510, 1239226, 48051430, 9677089, 0132473, 6539818 ####[address] [address] Platelet mean volume (Bld) [Entitic vol] 8.3 fL Normal 6.4-10.8 [facility] Comment on above: Performed By: #### 1 8626295, 5060835, 8156599, 9852839, 45099562, 1005196, 6833811, 7058523 ####[facility] [address] [place] [address] Platelets (Bld) [#/Vol] 295.0 E9/L Normal 150.0-500. 0 [facility] Comment on above: Performed By: #### 1 6350874, 4043118, 3202687, 2840842, 21930090, 4021061, 8903080, 1846912 ####[facility] [address] [place] [address] RBC (Bld) [#/Vol] 4.5 E12/L Normal 4.3-5.9 [facility] Comment on above: Performed By: #### 1 8196039, 6656356, 8155709, 2063599, 37424522, 3866236, 0003536, 6321228 ####[facility] [address] [place] [address] WBC corrected for nucl RBC Auto (Bld) [#/Vol] 8.4 E9/L Normal 4.0-11.0 [facility] Comment on above: Performed By: #### 1 5214209, 6298536, 1296929, 6264965, 75279088, 0362073, 3251476, 8663446 ####[address] [place] [address] CT Abdomen/Pelvis w/ Contras ton 02-24-2022 CT Abdomen/Pelvis w/ Contrast Exam Date/Time: 02/24/2022 15:25 EST Reason for Exam: Abdominal pain, acute, nonlocalized;Other (please specify) Report IMPRESSION: REPORTEDLY THE PATIENT IS 5 DAYS POSTOPERATIVE HERNIA REPAIR. THERE ARE ANTERIOR ABDOMINAL FINDINGS, DESCRIBED IN THE COMMENT. WHETHER OR NOT THERE IS INFECTION IS NOT DETERMINED. CORRELATE CLINICALLY. CLINICAL HISTORY: Abdominal pain, acute, nonlocalized. COMPARISON: 11/12/2021. COMMENT: Images were obtained following the administration of Intravenous contrast. There are surgical clips at the gallbladder fossa, from prior cholecystectomy. No biliary ductal dilatation is noted. The liver, spleen, and adrenal glands are unremarkable. The pancreas appears somewhat atrophic, but otherwise unremarkable. There are multiple small bilateral renal cortical cysts. The kidneys are otherwise unremarkable in appearance. The renal collecting systems are not dilated. No retroperitoneal lymphadenopathy is evident. There are scattered arterial calcifications. The abdominal aorta is normal in diameter. No aneurysm is noted. Evaluation of bowel is limited. The stomach is mildly distended and contains mostly fluid. The small bowel loops are not dilated, and there is no evidence of small bowel obstruction. The appendix is not delineated, but there is no CT evidence of acute appendicitis.. Fecal material in the colon limits evaluation. There is a diverticulum of the transverse colon and there are some diverticula of the sigmoid colon, without evidence of diverticulitis. No abdominal inflammatory complex nor free air nor free fluid is noted. Reportedly the patient is 5 days postop hernia repair. In anterior abdominal fat, to the right of midline and just superior to the umbilicus, there is a focal soft tissue collection, containing a small gas bubble, and the soft tissue collection has a greatest diameter of approximately 1.8 cm. This may be a postoperative collection, but focal area of infection/abscess in the anterior abdominal fatty tissue is also a concern. There may also be minimal ventral dehiscence at this site. Deep to the anterior wall musculature (mainly deep to the right rectus abdominis muscle and to a lesser extent deep to the medial left rectus abdominis muscle), there is a roughly elliptical shaped low attenuation collection, with a transverse diameter of approximately 8 cm, thickness of approximately 0.8 cm, and length of approximately 11 cm, extending from above to below the umbilicus. No gas is noted within this low attenuation fluid collection, but whether or not this is infected is not determined on this study. Correlation to the recent surgical history would be helpful. The patient has had prior hysterectomy. There are metallic surgical clips in the pelvis, posterior to the pubic symphysis. The urinary bladder is unremarkable. No pelvic lymphadenopathy is evident. The bones are osteopenic. There are bilateral metallic posterior stabilization rods with interpedicular screws extending into the L4, L5, and S1 vertebral bodies. There Report is a prosthetic spacer device within the L5-S1 interspace. There is mild grade 1 anterolisthesis of L5-S1. There are laminectomy defects from L4 through S1. All CT scans at this facility use dose modulation, iterative reconstruction, and/or weight based dosing when appropriate to reduce radiation dose to as low as reasonably achievable. FINAL REPORT Dictated: 02/24/2022 5:04 pm Nick De M.D. Signed (Electronic Signature): 02/24/2022 5:04 pm Signed by: Nick De M.D. Transcribed by: PRESTON Technologist: GIULIANO Technical Comments GFR (mL/min/1/73m2) 48 Contrast: Isovue 300 Contrast amount in ml's: 79 Rectal Contrast Given? No Normal [facility] CTA Cheston 02-24-2022 CTA Chest Exam Date/Time: 02/24/2022 15:25 EST Reason for Exam: PE suspected, high prob;Other (please specify) Report IMPRESSION: NO CT EVIDENCE OF PULMONARY EMBOLISM. NO EVIDENCE OF CONSOLIDATED AIRSPACE OPACIFICATION. SUSPECTED ATELECTATIC CHANGES. SMALL LUNG NODULES, PLEASE REFER TO FLEISCHNER SOCIETY GUIDELINES FOR MANAGEMENT RECOMMENDATIONS. CLINICAL HISTORY: PE suspected, high prob. Fatigue. COMMENT: Axial images were obtained after the rapid injection of IV contrast with narrow collimation and reconstructed at a narrow interval. Coronal and sagittal reconstructions were performed. On the PACS, images were reviewed in cine display and using MIP postprocessing. The pulmonary arteries are contrast opacified and no intraluminal filling defects are noted. There are scattered calcifications of the aortic arch and descending thoracic aorta. The thoracic aorta is normal in diameter, without evidence of aneurysm or dissection. The heart is within normal limits in size, but with mild prominence of the left ventricle. There is some coronary artery calcification. There is a minimal amount of pericardial fluid. There is no mediastinal nor hilar lymphadenopathy. There are some dependent atelectatic changes of both lungs posteriorly. There is a bandlike density along the right minor fissure consistent with atelectasis. There is a streaky increased densities in the right middle lobe and in the lingula, may be due to atelectasis or fibrosis. No consolidated airspace opacification nor pleural effusion is evident. There are some scattered small nodules in the periphery of the lungs, more so on the right, a few measuring up to 0.3 cm in diameter, but most measuring on the order of 0.1 cm. No large lung nodule nor mass is evident. All CT scans at this facility use dose modulation, iterative reconstruction, and/or weight based dosing when appropriate to reduce radiation dose to as low as reasonably achievable. Fleischner Society 2017 Guidelines for Management of Incidentally Detected Pulmonary Nodules in Adults A: Solid Nodules* Single Low risk <6 mm No routine follow-up 6-[address] at 6-12 months, then consider CT at 18-24 months >[address], PET/CT, or tissue sampling at 3 months Report Nodules <6 mm do not require routine follow-up, but certain patients at high risk with suspicious nodule morphology, upper lobe location, or both may warrant 12-month follow-up (recommendation 1A). High risk <[address] at 12 months 6-[address] at 6-12 months, then CT at 18-24 months >[address], PET/CT, or tissue sampling at 3 months Nodules <6 mm do not require routine follow-up, but certain patients at high risk with suspicious nodule morphology, upper lobe location, or both may warrant 12-month follow-up (recommendation 1A). Multiple Low risk <6 mm No routine follow-up 6-[address] at 3-6 months, then consider CT at 18-24 months >[address] at 3-6 months, then consider CT at 18-24 months Use most suspicious nodule as guide to management. Follow-up intervals may vary according to size and risk (recommendation 2A). High risk <[address] at 12 months 6-[address] at 3-6 months, then at 18-24 months >[address] at 3-6 months, then at 18-24 months Use most suspicious nodule as guide to management. Follow-up intervals may vary according to size and risk (recommendation 2A). B: Subsolid Nodules* Single Ground glass <6 mm No routine follow-up >=[address] at 6-12 months to confirm persistence, then CT every 2 years until 5 years In certain suspicious nodules <6 mm, consider follow-up at 2 and 4 years. If solid component(s) or growth develops, consider resection. (Recommendations 3A and 4A). Part solid <6 mm No routine follow-up >=[address] at 3-6 months to confirm persistence. If unchanged and solid component remains <6 mm, annual CT should be performed for 5 years. In practice, part-solid nodules cannot be defined as such until >=6 mm, and nodules <6 mm do not usually require follow-up. Persistent part-solid nodules with solid components >=6 mm should be considered highly suspicious (recommendations 4A-4C) Multiple <[address] at 3-6 months. If stable, consider CT at 2 and 4 years. >=[address] at 3-6 months. Subsequent management based on the most suspicious nodule(s). Multiple <6 mm pure ground-glass nodules are usually benign, but consider follow-up in selected patients at high risk at 2 and 4 years (recommendation 5A). Note.--These recommendations do not apply to lung cancer screening, patients with immunosuppression, or patients with known primary cancer. * Dimensions are average of long and short axes, rounded to the nearest millimeter. Consider all relevant risk factors (see Risk Factors). Report FINAL REPORT (more content not included)... [facility] Consent for Treatmenton 02-05 Consent for Treatment [id number]#[id number]:127 Normal [facility] ED Clinical Summaryon 2021 ED Clinical Summary (Inserted Image. Elvia ble to display) [place] [id number] ED Clinical Summary Person Information Name: ADINA PERRY/[place] Age: 81 Years : 1940 Sex: Female Language: Omani PCP: ADRIANA CRUZ DO Marital Status: Visit Id: Visit Reason: Fatigue; Post surgical problem; ANPHECOQ-PUSOODO-ASJ PAIN Speciality: Acuity: 2 Enc Type: Emergency Med Service: Emergency Arrival: 02/24/2022 13:07:19 Discharge: LOS: 000 05:49 Checkin: 02/24/2022 13:07:19 Checkout: 02/24/2022 18:56:59 Dispo Type: Admitted as IP to this [facility] EVENTS: Event Name Event Status Request Date/Time Start Date/Time Complete Date/Time Arrive Complete 02/24/2022 13:07:19 02/24/2022 13:07:19 02/24/2022 13:07:19 Document Home Meds Request 02/24/2022 13:07:19 Triage Complete 02/24/2022 13:07:19 02/24/2022 13:16:32 02/24/2022 13:16:32 EKG Complete 02/24/2022 13:15:37 02/24/2022 13:32:36 Isolation Screening Request 02/24/2022 13:16:33 Bed Assign Complete 02/24/2022 13:16:49 02/24/2022 13:16:49 02/24/2022 13:16:49 Dr Exam Complete 02/24/2022 13:16:49 02/24/2022 13:17:57 02/24/2022 13:17:57 RN Exam Complete 02/24/2022 13:16:49 02/24/2022 14:14:36 02/24/2022 14:14:36 Registration Complete 02/24/2022 13:17:57 02/24/2022 13:41:12 02/24/2022 13:41:12 Meds Admin Complete 02/24/2022 13:31:30 02/24/2022 14:00:40 Pending Labs Complete 02/24/2022 13:31:30 02/24/2022 15:20:58 Lab Complete 02/24/2022 13:31:30 02/24/2022 15:20:58 Urine Collect Complete 02/24/2022 13:31:30 02/24/2022 15:20:58 CT Complete 02/24/2022 13:31:30 02/24/2022 14:48:19 02/24/2022 15:25:31 X-Ray Complete 02/24/2022 13:31:30 02/24/2022 13:54:58 02/24/2022 14:07:11 Pending Labs Inlab 02/24/2022 13:37:22 Lab Inlab 02/24/2022 13:37:22 Reg Complete Request 02/24/2022 13:41:12 Reg Bed Request Complete 02/24/2022 13:41:12 02/24/2022 13:41:12 02/24/2022 13:41:12 Pending Labs Complete 02/24/2022 14:01:23 02/24/2022 14:01:23 02/24/2022 14:35:22 Lab Complete 02/24/2022 14:01:23 02/24/2022 14:01:23 02/24/2022 14:35:22 Wet Read Complete 02/24/2022 14:07:11 02/24/2022 14:08:06 02/24/2022 14:08:06 Pending Labs Complete 02/24/2022 14:10:35 02/24/2022 14:10:35 02/24/2022 14:10:46 Lab Complete 02/24/2022 14:10:35 02/24/2022 14:10:35 02/24/2022 14:10:46 Fall Risk Request 02/24/2022 14:14:37 Pending Labs Inlab 02/24/2022 15:07:07 02/24/2022 15:07:07 Lab Inlab 02/24/2022 15:07:07 02/24/2022 15:07:07 CT Complete 02/24/2022 15:08:14 02/24/2022 15:14:24 02/24/2022 15:25:31 Pending Labs Request 02/24/2022 16:59:23 Lab Request 02/24/2022 16:59:23 Consult Request 02/24/2022 17:28:18 Hospitalist Consult Request 02/24/2022 17:28:19 Inpatient Bed Ready Complete 02/24/2022 18:56:59 02/24/2022 18:56:59 02/24/2022 18:56:59 ADDRESS: [address] [place] [address] DR PULLIAM [place] [id number] PHYS DOC NOTES: MEDICAL INFORMATION: Prescriptions Given: Medications to Continue with No Changes Other Medications albuterol (Albuterol (Eqv-ProAir HFA) 90 mcg/inh inhalation aerosol) 2 Puffs Inhalation every 6 hours as needed Shortness of breath or wheezing. amlodipine 10 Milligram By Mouth every day. aspirin (aspirin 81 mg Oral EC Tab) 1 Tablets By Mouth every day. atorvastatin 40 Milligram By Mouth every day. chlorthalidone 25 Milligram By Mouth every day. cholecalciferol (Vitamin D3) 50 Microgram By Mouth every day. isosorbide mononitrate 30 Milligram By Mouth once a day (in the morning). losartan 100 Milligram By Mouth every day. pantoprazole 40 Milligram By Mouth every day. sertraline 25 Milligram By Mouth every day. spironolactone 25 Milligram By Mouth every day. PATIENT EDUCATION INFORMATION: Instructions: Follow up: DIAGNOSIS: Abdominal pain; Abnormal cardiac enzyme level Normal [facility] ED Note-Physicianon 02-25-20 ED Note-Physician Basic Information Time Seen: Jay Emery DO 02/24/2022 13:17 Chief Complaint Pt presents to ED with complaints of increased fatigue, decreased appetite post op 5 days from recent hernia repair. Denies any fever, chills, n/v/d. History of Present Illness 81 female presents emergency department with fatigue. Patient states that she is postop day 5 from what sounds like laparoscopic ventral hernia repair. Patient states that since then she has been recovering at home and just does not feel like herself. She denies any chest pain or shortness of breath she is had no cough or fevers but has felt clammy at home. She does describe diffuse abdominal pain that does seem to be getting worse she spoke with her surgeon this morning was sent to the emergency department for evaluation. Patient reports no dysuria she has had mild associated nausea really has not moved her bowels much since the surgery but reports no diarrhea no blood in the stools. Family did state that there was concern for a lump that was palpable to the left side of the abdomen which was also concerning as well. Patient primarily complains of fatigue associated with this as well. No other prior treatments at home. No other aggravating or relieving factors no other associated symptoms no other prior treatments or complaints. Family: Reviewed and noncontributory Social: lives at home Review of systems negative unless otherwise specified in the HPI. Physical Exam Vitals & Measurements T: 36.4 ?C(Oral) HR: 84(Peripheral) RR: 20 BP: 123/67 SpO2: 99% HT: 146 cm WT: 46 kg BMI: 21.58 General: The patient appears nontoxic in no acute distress Skin: Warm, dry, moderate pallor noted. Incisional sites are visualized and are clean, dry, intact no surrounding cellulitis no pus or drainage. Head: Normocephalic, atraumatic Neck: No JVD Eye: PERRLA, EOMI ENT: Moist mucus membranes Cardiovascular: Regular rate normal peripheral perfusion Respiratory: No respiratory distress no accessory muscle use no obvious audible wheezing Chest Wall: no deformity Musculoskeletal: normal ROM, no deformity, no swelling negative bilateral Homans' sign GI: Abdomen is soft with patient does have generalized tenderness to palpation throughout the abdomen with some mild guarding noted throughout as well. Incisional sites as described above. I am not able to palpate the lump that family describes on the left side however she does seem to be slightly more tender on that left side. No rebounding no rigidity. Neurological: A&O moves all extremities equal strength and symmetry Psychiatric: Cooperative and appropriate Medical Decision Making Work-up in the ER has been reviewed and noted. Patient does have nonspecific mild elevation of troponin therefore I added on CT of the chest which is been read by the radiologist as no evidence of PE. CT of the abdomen shows postsurgical changes without any acute findings. I did talk with the patient she does state that she is had some indigestion these last couple of days but denies any chest pain. She has had history of CAD for which she is known to Dr. Wasserman from [facility] cardiology. 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 She is currently pain-free she feels better after some IV fluids and was seen by surgery here in the emergency department. Case discussed with hospitalist patient will be admitted for additional evaluation and treatment. Assessment/Plan Abdominal pain (R10.9: Unspecified abdominal pain) Abnormal cardiac enzyme level (R74.8: Abnormal levels of other serum enzymes) Orders: Sodium Chloride 0.9% intravenous solution, 1,000 mL, Soln-IV, IV, Once, Stop date 02/24/22 13:30:00 EST, STAT, Start date 02/24/22 13:30:00 EST, mL/hr, Infuse over 61, minute(s) Automated Diff Basic Metabolic Panel Blood Culture Charcoal Blood Culture Charcoal CBC w/ Auto Diff CT Abdomen/Pelvis w/ Contrast CTA Chest ED Cardiac Monitoring eGFR Hepatic Function Panel Lactic Acid Lipase Level Troponin Troponin Troponin 0 Hr. UA With Cult Reflex Urine Culture XR Chest Single View Disposition Plan Discharge Prescription List Prescriptions No active prescription medications Follow-up No qualifying data available Problem List/Past Medical History Ongoing BMI 20.0-20.9, adult Incisional hernia RLQ abdominal pain Ventral hernia Weight loss Historical Anemia Fecal incontinence History of colon polyps Nausea and vomiting Watery diarrhea Procedure/Surgical History History of hernia repair (02/19/2022), Colonoscopy (01/17/2022), EGD - Esophagogastroduodenoscopy (07/06/2020), Arthroplasty of knee, Bladder operation, CE - Cataract extraction, section, Colonoscopy, Esophagogastroduodenoscopy , History of hysterectomy., Procedure on back. Medications Inpatient NS 1000 ml Bolus, 1000 mL, IV, Once Home Albuterol (Eqv-ProAir HFA) 90 mcg/inh inhalation aerosol, 2 puff(s), Inhalatio (more content not included)... Normal [facility] Comment on above: Result Comment: Elec tronically Signed By: Jay Emery DO\.br\Date and Time Signed: 02/24/22 17:27 EST ED Patient Education Noteon 02-24-2022 ED Patient Education Note Normal [facility] ED Patient Summaryon 022 ED Patient Summary (Inserted Image. Elvia ble to display) [place] [id number] Patient Discharge Instructions Person Information Name: ADINA PERRY Age: 81 Years Arrival Date: 02/24/2022 13:07:19 Discharge Diagnosis: Abdominal pain; Abnormal cardiac enzyme level Primary Care Physician: ADRIANA CRUZ DO Provider Information Primary Provider: Jay Emery DO Advanced Manufacturing Director:None The exam and treatment you received in the Emergency Department were for an urgent problem and are not intended as complete care. It is important that you follow up with a doctor, nurse practitioner, or physician?s nurseryman assistant for ongoing care. If your symptoms become worse or you do not improve as expected and you are unable to reach your usual health care provider, you should return to the Emergency Department. We are available 24 hours a day. ADINA PERRY has been given the following list of patient education materials, prescriptions and follow-up instructions: Follow-up Instructions: In the event that this physician does not participate in your insurance network, please consult with your insurance company to find a nearby participating provider. Patient Education Materials: A MESSAGE TO ALL PATIENTS REGARDING OPIOIDS PRESCRIPTION OPIOIDS: WHAT YOU NEED TO KNOW Prescription opioids can be used to help relieve yxicurij-wj-lcqmww pain and are often prescribed following a surgery or injury, or for certain health conditions. These medications can be an important part of the treatment but also come with serious risks. It is important to work with your healthcare provider to make sure you are getting the safest, most effective care. WHAT ARE THE RISKS AND SIDE EFFECTS OF OPIOID USE? Prescription opioids carry serious risks of addiction and overdose, especially with prolonged use. An opioid overdose, often marked by slowed breathing, can cause sudden . The use of prescription opioids can have a number of side effects as well, even when taken as directed: ? Tolerance?meaning you might need to take more of the medication for the same pain relief ? Physical dependence?meaning you have symptoms of withdrawal when a medication is stopped ? Increased sensitivity to pain ? Constipation ? Nausea, vomiting, and dry mouth ? Sleepiness and dizziness ? Confusion ? Depression ? Low levels of testosterone that can result in lower sex drive, energy, and strength ? Itching and sweating RISKS ARE GREATER WITH: ? History of drug misuse, substance use disorder, or overdose ? Mental health conditions (such as depression or anxiety) ? Sleep apnea ? Older age (65 years and older) ? Avoid alcohol while taking prescription opioids. Also, unless specifically advised by your health care provider, medications to avoid include: ? Benzodiazepines (such as Xanax or Valium) ? Muscle relaxants (such as Soma or Flexeril) ? Hypnotics (such as Ambien or Lunesta) ? Other prescription opioids KNOW YOUR OPTIONS Talk to your health care provider about ways to manage your pain that don?t involve prescription opioids. Some of these options may actually work better and have fewer risks and side effects. Options may include: ? Pain relievers such as acetaminophen, ibuprofen, and naproxen ? Some medication that are also used for depression or seizures ? Physical therapy and exercise ? Cognitive behavioral therapy, a psychological, goal-directed approach, in which patients learn how to modify physical, behavioral, and emotional triggers of pain and stress. IF YOU ARE PRESCRIBED OPIOIDS FOR PAIN: ? Never take opioids in greater amounts or more often than prescribed. ? Follow up with your primary health care provider. o Work together to create a plan on how to manage your pain. o Talk about ways to help manage your pain that don?t involve prescription opioids. o Talk about any and all concerns and side effects. ? Help prevent misuse and abuse o Never sell or share prescription opioids. o Never use another person?s prescription opioids. ? Store prescription opioids in a secure place and out of reach of others (this may include visitors, children, friends, and family). ? Safely dispose of unused prescription opioids: Find your community drug take-back program or your pharmacy mail-back program, or flush them down the toilet, following guidance from the Food and Drug Administration (www.fda.gov/Drugs/Resourc esForYou). ? Visit www.cdc.gov/drugoverdose to learn about the risks of opioids abuse and overdose. ? If you believe you may be struggling with addiction, tell your health medical care manager and ask for guidance or call [facility] National Helpline at 8-326-722-ORBG. u Source: [place] Department of Health and Human Services/Center for Disease Control & Prevention [facility] Medications Given: Med (more content not included)... Normal [facility] Hep Func Panelon 02-24-2022 Albumin [Mass/Vol] 4.4 g/dL Normal 3.3-5.0 [facility] Comment on above: Performed By: #### 1 [id number], 3933791, 3262214, 5639974, 63604516, 1259328, 4246111, 5747560 ####[facility] [address] [place] [address] Albumin/Globulin (S) [Mass conc ratio] 1.3 Normal 1.1-2.2 [facility] Comment on above: Performed By: #### 1 6104582, 2788591, 9775659, 7332966, 00112412, 7039887, 2163630, 4758941 ####[facility] [address] [place] [address] ALP [Catalytic activity/Vol] 72 Int._Unit/L Normal 21-98 [facility] Comment on above: Performed By: #### 1 0796281, 3319964, 1805444, 4765646, 52923142, 3884574, 0224851, 9688243 ####[address] [address] ALT No additional P-5'-P [Catalytic activity/Vol] 16 Int._Unit/L Normal 6-46 [facility] Comment on above: Performed By: #### 1 9733280, 8700971, 4282484, 0119884, 08447084, 1306174, 2576453, 7657295 ####[place] 6643757 AST [Catalytic activity/Vol] 18 Int._Unit/L Normal 5-43 [facility] Comment on above: Performed By: #### 1 3211175, 7466551, 5873880, 4259663, 42118552, 8690127, 6445249, 9445323 ####[address] [address] Bilirubin [Mass/Vol] 0.7 mg/dL Normal 0.0-1.1 [facility] Comment on above: Performed By: #### 1 8784949, 1564885, 8222641, 7010209, 48817765, 1962718, 1373503, 6531027 ####[facility] [address] [place] [address] Bilirubin.direct [Mass/Vol] 0.1 mg/dL Normal 0.1-0.4 [facility] Comment on above: Performed By: #### 1 8198597, 3526256, 0245828, 3498897, 81597120, 4256003, 7576791, 6114616 ####[address] [address] Bilirubin.indirect [Mass or moles/Vol] 0.6 mg/dL Normal 0.1-0.9 [facility] Comment on above: Performed By: #### 1 2116591, 6691887, 9692292, 1538165, 50997755, 8123984, 4810526, 1821498 ####[facility] [address] [place] [address] Globulin (S) [Mass/Vol] 3.5 g/dL Normal 1.4-4.0 [facility] Comment on above: Performed By: #### 1 0886892, 3461904, 0082067, 8871014, 63815811, 8043214, 8186821, 2724943 ####[facility] [address] [place] [address] Protein [Mass/Vol] 7.9 g/dL High 6.0-7.8 [facility] Comment on above: Performed By: #### 1 3283803, 2826993, 1527129, 1341093, 81402996, 1555219, 5049881, 0549640 ####[facility] [address] [place] [address] Lactic Acidon 02-24-2022 Lactate [Mass/Vol] 1.5 mmol/L Normal 0.5-2.2 [facility] Comment on above: Performed By: #### 1 9963055, 6610573, 2141422, 9743396, 60197730, 4551279, 1303614, 7764595 ####[facility] [address] [place] [address] Lipase Levelon 02-24-2022 Lipase [Catalytic activity/Vol] 43 U/L Normal 13-58 [facility] Comment on above: Performed By: #### 1 8308171, 1862915, 7572556, 7360804, 59229076, 0478227, 1884997, 0783166 ####[facility] [address] [place] [address] Monitor Recordon 02-24-2022 Monitor Record [id number]#1.00CD:127 Normal [facility] Monitor Record [id number]#1.00CD:127 Normal [facility] Operative Reporton Operative Report SURGERY DATE: 2021 CARCASS WASHER: Kylie Costa, Certified Welder Fitter Arc INDICATION FOR SURGERY: The patient is a 81 year old female with previous abdominal hysterectomy performed in an open fashion in the presenting with a 2 cm incisional hernia that is symptomatic seen on computerized tomography scan from [facility]. She is here today for robotic assisted laparoscopic incisional hernia repair. PREOPERATIVE DIAGNOSIS: Incisional hernia POSTOPERATIVE DIAGNOSIS: Incisional hernia OPERATION: Robotic assisted laparoscopic lysis of adhesions lasting 30 minutes and incisional hernia repair with intraperitoneal onlay mesh technique ANESTHESIA: General endotracheal BLOOD LOSS: Minimal URINE OUTPUT: Void prior to Operating Room FINDINGS: 2 cm supraumbilical incisional hernia in the midline, 9 cm Symbotex mesh placed after hernia was closed primarily COMPLICATIONS: None PROCEDURE: After obtaining informed consent the patient was taken to the Operating Room, positioned supine on the Operating Room table. General anesthesia was achieved. The patient's abdomen was prepped and draped in a sterile fashion. TAP block was performed by the Anesthesia service. The patient's abdomen was then prepped and draped once more. The patient received her perioperative antibiotics from us and a timeout was performed. Incision was made in Anna's point and the peritoneal cavity was insufflated. Using a 5 mm Optiview entry the peritoneal cavity was entered confirming no injury to our entry site. There were midline adhesions primarily made up of omentum noted, however, we were able to inspect the right side of the patient's abdomen and three 8 mm incisions were made on the lateral aspect of the right side of the patient's abdomen. Robotic trocars were passed through under direct visualization. The robot was docked. A ProGrasp and a monopolar scissor and a 30 degree 8 mm robotic camera were attached and inserted into the peritoneal cavity under direct visualization. Due to the dense amount of omental adhesions along the midline it was necessary to lyse these in order to verify that there was only one hernia defect. This was performed and completed. It was confirmed that there was only one supraumbilical incisional hernia defect measuring 2 cm as visualized on our computerized tomography scan. Given that the peritoneum was exceptionally thin in this very petite patient decision was made to proceed with an intraperitoneal onlay mesh repair technique. The hernia sac was reduced back into the peritoneal cavity and using an 0 V-Loc permanent suture the defect was closed. At this point a 9 cm Symbotex mesh was inserted into the peritoneal cavity and sutured in a running fashion using a 2-0 V-Loc. Two of these sutures were required to secure the mesh in place in a circumferential fashion. Once the mesh was secured hemostasis was confirmed and all 3 needles were removed from the peritoneal cavity successfully. The abdomen was desufflated. The ports were removed under visualization. All four incisions were closed using a 4-0 Monocryl in a subcuticular fashion. Skin glue was applied. The patient tolerated the procedure without difficulty. All of our counts were correct x2. The patient was awoken and returned to the Recovery Room in a stable condition. Jay Power M.D. lr Dictated: 02/19/2022 [id number] Transcribed: 02/19/2022 Normal [facility] Comment on above: Result Comment: Elec tronically Signed By: Jannet ERIC, Jay Lock\.br\Date and Time Signed: 02/24/22 07:55 EST Troponinon 02-24-2022 Troponin I.cardiac [Mass/Vol] 105.90 pg/mL Abnormal 10.10-27.1 0 [facility] Comment on above: Result Comment: Crit ical Result I_hsTnI:105.[address] EMERY at ER by TIERRA ARMENTA and read back for confirmation at 02/24/2022 17:57:53 The 95% CI (Confidence Interval) PPV (Positive Predictive Value) for myocardial infarction in females is 38 pg/mL, in males 51 pg/mL. The results should be used in conjunction with clinical conditions of myocardial infarction. ([employer] High Sensitivity Troponin I Instructions For Use, [employer], November 2017) Performed By: #### 2 680652 #### [facility] [address] [place] [address] Troponin 0 Hr.on 02-24-2022 Troponin I.cardiac [Mass/Vol] 96.00 pg/mL Abnormal 10.10-27.1 0 [facility] Comment on above: Result Comment: Crit ical Result verified by repeat analysis\ Critical Result I_hsTnI:96.0 Called to CHECO SPARROW at ER by TIERRA ARMENTA and read back for confirmation at 02/24/2022 15:02:58 The 95% CI (Confidence Interval) PPV (Positive Predictive Value) for myocardial infarction in females is 38 pg/mL, in males 51 pg/mL. The results should be used in conjunction with clinical conditions of myocardial infarction. ([employer] High Sensitivity Troponin I Instructions For Use, [employer], November 2017) Performed By: #### 1 9435742, 7103702, 5272824, 3703047, 90123350, 2840684, 8322633, 9808556 ####[facility] [address] [place] [address] Troponin 6 Hr.on 02-24-2022 Troponin I.cardiac [Mass/Vol] 105.10 pg/mL Abnormal 10.10-27.1 0 [facility] Comment on above: Result Comment: Crit ical Result verified by previous result\ Critical Result I_hsTnI:105.1 Called to ARMAND DENG at 3N by TIERRA ARMENTA and read back for confirmation at 02/24/2022 21:38:01 The 95% CI (Confidence Interval) PPV (Positive Predictive Value) for myocardial infarction in females is 38 pg/mL, in males 51 pg/mL. The results should be used in conjunction with clinical conditions of myocardial infarction. ([employer] High Sensitivity Troponin I Instructions For Use, [employer], November 2017) Performed By: #### 1 6155569 #### [facility] [address] [place] [address] UA With Cult Reflexon 2021 Bilirubin Ql (U) Negative Normal Negative [facility] Comment on above: Performed By: #### 2 210685, 59913346 #### [facility] [address] [place] [address] Clarity (U) CLEAR Normal Clear [facility] Comment on above: Performed By: #### 2 962737, 82350692 #### [facility] [address] [place] [address] Color (U) YELLOW Normal Yellow [facility] Comment on above: Performed By: #### 2 441499, 25036193 #### [facility] [address] [place] [address] Epithelial cells.squamous LM.HPF (Urine sed) [#/Area] 0-2 Normal 0-2 [facility] Comment on above: Performed By: #### 2 313074, 16908696 #### [facility] [address] [place] [address] Glucose Test strip (U) [Mass/Vol] Negative Normal Negative [facility] Comment on above: Performed By: #### 2 146360, 25885272 #### [facility] [address] [place] [address] Hemoglobin Ql (U) Negative Normal Negative [facility] Comment on above: Performed By: #### 2 603242, 94800989 #### [facility] [address] [place] [address] Ketones (U) [Mass/Vol] Negative Normal Negative [facility] Comment on above: Performed By: #### 2 370493, 92242882 #### [facility] [address] [place] [address] [place].plasma/Lithiu m.RBC (Bld) [Mass ratio] 0-3 Normal 0-3 [facility] Comment on above: Performed By: #### 2 683104, 84014753 #### [facility] [address] [place] [address] Nitrite Ql (U) Negative Normal Negative [facility] Comment on above: Performed By: #### 2 903034, 80067461 #### [facility] [address] [place] [address] pH (U) 7.0 [pH] Invalid Interpretation Code 5.0-9.0 [facility] Comment on above: Performed By: #### 2 986490, 85875985 #### [facility] [address] [place] [address] Protein (U) [Mass/Vol] Negative Normal Negative [facility] Comment on above: Performed By: #### 2 059793, 14953610 #### [facility] [address] [place] [address] Specific gravity (U) [Rel density] 1.010 Invalid Interpretation Code 1.005-1.03 0 [facility] Comment on above: Performed By: #### 2 796250, 57137726 #### [facility] [address] [place] [address] Type of Urine collection method Clean Catch Normal [facility] Comment on above: Performed By: #### 2 594650, 42182414 #### [facility] [address] [place] [address] Urobilinogen Qn (U) 0.2 {Gemma'U}/dL Normal 0.0-1.0 [facility] Comment on above: Performed By: #### 2 622317, 32440549 #### [facility] [address] [place] [address] WBC Auto Ql (U) 1+ Abnormal Negative [facility] Comment on above: Performed By: #### 2 482030, 18551715 #### [facility] [address] [place], [place] [address] WBC LM.HPF (Urine sed) [#/Area] 0-5 Normal 0-5 [facility] Comment on above: Performed By: #### 2 909785, 39537470 #### [facility] [address] [place], [place] [address] XR Chest Single Viewon 02-24 XR Chest Single View Exam Date/Time: 02/24/2022 14:07 EST Reason for Exam: Chest pain Report IMPRESSION: NO RADIOGRAPHIC EVIDENCE OF ACUTE INTRATHORACIC PROCESS. EXAM: XR Chest Single View History: Chest pain Technique: Portable AP view of the chest. Comparison: Chest radiographs 02/04/2022 Findings: Atherosclerotic calcification of the thoracic aorta. The cardiomediastinal silhouette is within normal limits. No pneumothorax, pleural effusion, or consolidation. No acute osseous abnormality. FINAL REPORT Dictated: 02/24/2022 2:27 pm Clement Harrell DO Signed (Electronic Signature): 02/24/2022 2:27 pm Signed by: Clement Harrell DO Transcribed by: PRESTON Technologist: Jd RUIZ [facility] eGFRon 02-24-2022 GFR/1.73 sq M.predicted among blacks MDRD (S/P/Bld) [Vol rate/Area] 58 mL/min/1.73 m2 Low >=59 [facility] Comment on above: Order Comment: Order added by Discern Expert. Result Comment: eGFR is race adjusted. AA=. Performed By: #### 1 3106707, 5524337, 4275943, 0859130, 83641178, 4936125, 7786415, 9918272 ####[facility] [address] [place] [address] GFR/1.73 sq M.predicted among non-blacks MDRD (S/P/Bld) [Vol rate/Area] 48 mL/min/1.73 m2 Low >=59 [facility] Comment on above: Order Comment: Order added by Discern Expert. Result Comment: Assistant Professor Of Spanish serene kidney disease could be indicated at eGFR's of less than 60 mL/min/1.73m2. Kidney failure is indicated at less than 15 mL/min/1.73m2. Performed By: #### 1 7138130, 5976359, 2524080, 5420856, 18027973, 4285442, 1501792, 7630321 ####[facility] [address] [place] [address] Consent for Anesthesiaon Consent for Anesthesia [id number]#1.00CD:127 Normal [facility] Discharge Instructionson Discharge Instructions [id number]#1.00CD:127 Normal [facility] IntraOperative Documentson 1 04-22-2021 IntraOperative Documents [id number]#1.00CD:127 Normal [facility] IntraOperative Documents [id number]#1.00CD:127 Normal [facility] Preoperative Documentson Preoperative Documents [id number]#1.00CD:127 Normal [facility] Preoperative Documents [id number]#1.00CD:127 Normal [facility] Consent for Treatmenton 02-04 Consent for Treatment [id number]#1.00CD:127 Normal [facility] Inpatient Patient Summaryon 02-19-2022 Inpatient Patient Summary [address] [address] [facility] Clinical Discharge Instructions PERSON INFORMATION Name: ADINA PERRY PHYSICIANS Admitting Physician: Jay Power MD Attending Physician: Jay Power MD PCP: ADRIANA CRUZ DO Discharge Diagnosis: Comment: PATIENT EDUCATION INFORMATION Instructions: Post Op Patient Instructions - FT (CUSTOM); Laparoscopic Ventral Hernia Repair, Care After Medication Leaflets: Follow up: With: Address: When: Jay Power [address] [place], [place] [id number] [phone] [facility] (1) In 7 days 02/26/2022 Comments: Call for followup appointment MEDICATION LIST New Medications [employer] [facility] [address] [place], [place] [id number], [phone] acetaminophen-hydrocodone ([place]ary 325 mg-5 mg oral tablet) 1 Tablets By Mouth every 4 hours as needed for pain. Refills: 0. Medications to Continue with No Changes Other Medications albuterol (Albuterol (Eqv-ProAir HFA) 90 mcg/inh inhalation aerosol) 2 Puffs Inhalation every 6 hours as needed Shortness of breath or wheezing. amlodipine 10 Milligram By Mouth every day. aspirin (aspirin 81 mg Oral EC Tab) 1 Tablets By Mouth every day. atorvastatin 40 Milligram By Mouth every day. chlorthalidone 25 Milligram By Mouth every day. cholecalciferol (Vitamin D3) 50 Microgram By Mouth every day. isosorbide mononitrate 30 Milligram By Mouth once a day (in the morning). losartan 100 Milligram By Mouth every day. pantoprazole 40 Milligram By Mouth every day., pancreatitis sertraline 25 Milligram By Mouth every day. spironolactone 25 Milligram By Mouth every day. Comment: [facility] Main OR PACU I Recordon 02-04 Main OR PACU I Record PACU Phase I Docum ent Type FT Summary Primary Physician: Jay Power MD Finalized Date/Time: 02/19/22 12:21:31 Pt. Name: ADINA PERRY /Sex: 1940 Female Med Rec #: [id number] Physician: Jay Power MD Financial #: [id number] Pt. Type: A Room/Bed: [facility]/ Admit/Disch: 02/19/22 05:56:04 - Institution: Case Times PACU I FT Pre-Care Text: Identifies barriers to communication and implements measures to provide psychological support Develops individualized plan of care, and ensures continuity of care Maintains patient's dignity and privacy, and maintains patient confidentiality Identifies and reports philosophical, cultural, and spiritual beliefs and values Identifies individual values and wishes concerning care Implements aseptic technique, and administers prescribed antibiotic therapy and immunizing agents as ordered Evaluates postoperative tissue perfusion Implements thermoregulation measures, and monitors body temperature Evaluates postoperative respiratory status Evaluates postoperative cardiac status Evaluates postoperative neurological status Assesses pain control, collaborated in initiating patient-controlled analgesia and implements alternative methods of pain control Verifies allergies, administers prescribed medications and solutions, evaluates response to medications Entry 1 In PACU I 02/19/22 09:59:00 Discharge from PACU 02/19/22 11:00:00 I Outcomes Met? Yes Last Modified By: Pavithra Saeed RN 02/19/22 12:21:05 Post-Care Text: The patient demonstrates knowledge of the expected response to the operative or invasive procedure The patient's care is consistent with the individualized perioperative plan of care The patient's right to privacy is maintained The patient's value system, lifestyle, ethnicity, and culture are considered, respected, and incorporated into the perioperative plan of care The patient participates in decisions affecting his or her perioperative plan of care The patient is free from signs and symptoms of infection The patient has wound/tissue perfusion consistent with or improved from baseline levels established preoperatively The patient is at or returning to normothermia at the conclusion of the immediate postoperative period The patient's respiratory function is consistent with or improved from baseline levels established preoperatively The patient's cardiovascular status is consistent with or improved from baseline levels established preoperatively The patient's cardiovascular status is consistent with or improved from baseline levels established preoperatively The patient demonstrates and/or reports adequate pain control throughout the perioperative period The patient received appropriate medication(s), safely administered during the perioperative period Acuity Level PACU I FT Entry 1 Start Time 02/19/22 09:59:00 Stop Time 02/19/22 11:00:00 Acuity Level Acuity Level I Last Modified By: Pavithra Saeed RN 02/19/22 12:21:20 Finalized By: Pavithra Saeed RN Document Signatures Signed By: aPvithra Saeed RN 02/19/22 12:21 Pavithra Saeed RN 02/19/22 12:21 [facility] Main OR PACU II Recordon Main OR PACU II Record PACU Phase II Document Type FT Summary Primary Physician: Jay Power MD Finalized Date/Time: 02/19/22 16:14:48 Pt. Name: ORLANDOADINA/Sex: 1940 Female Med Rec #: [id number] Physician: Jay Power MD Financial #: [id number] Pt. Type: A Room/Bed: Admit/Disch: 02/19/22 05:56:04 - Institution: Case Times PACU II FT Pre-Care Text: Identifies barriers to communication and implements measures to provide psychological support and determines knowledge level Develops individualized plan of care, and ensures continuity of care Maintains patient's dignity and privacy, and maintains patient confidentiality Identifies and reports philosophical, cultural, and spiritual beliefs and values Identifies individual values and wishes concerning care administers prescribed antibiotic therapy and immunizing agents as ordered, Evaluates postoperative tissue perfusion Implements thermoregulation measures, and monitors body temperature Evaluates postoperative respiratory status Evaluates postoperative cardiac status Evaluates postoperative neurological status Assesses pain control, collaborated in initiating patient-controlled analgesia and implements alternative methods of pain control Verifies allergies, administers prescribed medications and solutions, evaluates response to medications Entry 1 In PACU II 02/19/22 11:05:00 Discharge from PACU 02/19/22 16:05:00 II Outcomes Met? Yes Last Modified By: Jennie Garcia RN 02/19/22 16:14:39 Post-Care Text: The patient demonstrates knowledge of the expected response to the operative or invasive procedure The patient's care is consistent with the individualized perioperative plan of care The patient's right to privacy is maintained The patient's value system, lifestyle, ethnicity, and culture are considered, respected, and incorporated into the perioperative plan of care The patient participates in decisions affecting his or her perioperative plan of care. The patient is free from signs and symptoms of infection The patient has wound/tissue perfusion consistent with or improved from baseline levels established preoperatively The patient is at or returning to normothermia at the conclusion of the immediate postoperative period The patient's respiratory function is consistent with or improved from baseline levels established preoperatively The patient's cardiovascular status is consistent with or improved from baseline levels established preoperatively The patient's neurological status is consistent with or improved from baseline levels established preoperatively The patient demonstrates and/or reports adequate pain control throughout the perioperative period The patient received appropriate medication(s), safely administered during the perioperative period Finalized By: Jennie Garcia RN Document Signatures Signed By: Jennie Garcia RN 02/19/22 16:14 [facility] Main OR Preoperative Recordo n 02-19-2022 Main OR Preoperative Record PreOp Document Type FT Summary Primary Physician: Jay Power MD Finalized Date/Time: 02/19/22 08:51:16 Pt. Name: ADINA PERRY /Sex: 1940 Female Med Rec #: [id number] Physician: Jay Power MD Financial #: [id number] Pt. Type: [place] Room/Bed: [place] [address] Admit/Disch: 02/19/22 05:56:04 - Institution: Case Times PreOp FT Pre-Care Text: Verifies consent for planned procedure, identifies individual values and wishes concerning care, includes family members in perioperative teaching Entry 1 Patient Times. In Pre Surgery 02/19/22 06:00:00 Out Pre Surgery 02/19/22 07:53:00 Outcomes Met? Yes Last Modified By: Olivier Loza 02/19/22 08:51:13 Post-Care Text: The patient participates in decisions affecting his or her perioperative plan of care Finalized By: Olivier Loza Document Signatures Signed By: Olivier Loza 02/19/22 08:51 [facility] Monitor Recordon 02-19-2022 Monitor Record [id number]:[id number] [facility] Operative Reporton 2 Operative Report Patient: MAYA PERRY Age: 81 years Sex: Female : 1940 Associated Diagnoses: None Author: Rk Moreno Jr., DO Postoperative Information Date/ Time: 02/19/2022 08:12:00 Preoperative Diagnosis: Acute postoperative pain.. Postoperative Diagnosis: Acute postoperative pain. Procedure: B/L TAP block. Anesthesia Method: GETA. Performed by: Rk Moreno Jr., DO. Medications: See Anesthesia Record. Complications: None. Notes: The patient was interviewed and examined prior to the planned operation. Anesthesia options were discussed including transverse abdominal plane (TAP) block for postoperative analgesia. This discussion included a description of the procedure, risks and benefits, as well as alternatives to the block. The patients questions were addressed and the patient elected to proceed with preoperative administration of local anesthetic agent into the plane between the internal oblique and transversus abdominus muscles. After induction of general anesthesia, with the patient placed in a supine position and monitored with continuous pulse oximetry, non-invasive blood pressure, and electrocardiography and following time-out, the patient's pertinent anatomic landmarks were identified. The left lateral abdomen was prepped with chloroprep. Ultrasound guidance was employed with the probe placed in a transverse fashion laterally in the sub-costal region above the iliac crest. The abdominal muscle layers were identified. Medial to the ultrasound probe, a 21 gauge x 110 mm needle was introduced under ultrasonic gudance. The needle was advanced laterally through the external oblique and internal oblique to the superior surface of the transversus abdominus. With intermittent attempts for aspiration of blood returning negative, 25 cc of a mix of 0.25% plain Bupivacaine (30 mL) plus 1.3% liposomal Bupivaine (20 mL) diluted with normal saline (20 mL) were injected. No signs of intravascular injection were elicited during the procedure. The right lateral abdomen was prepped and injected in the same fashion as the first side, with ultrasound guidance. 25 cc of the same local anesthetic mix was employed on this side. The patient tolerated the procedure well. Following the TAP block, reparations continued for the proposed operation.. [facility] Comment on above: Result Comment: Elec tronically Signed By: Rk Moreno Jr., DO\.br\Date and Time Signed: 02/19/22 08:20 EST Outpatient Surgery Discharge Instructionon 02-19-2022 Outpatient Surgery Discharge Instruction [place] [id number] Patient Discharge Instructions PERSON INFORMATION Name: ADINA PERRY Date of : 1940 Current Date: 02/19/2022 10:06:17 PHYSICIANS Admitting Physician: Jay Power MD Discharge Diagnosis: ADINA PERRY has been given the following list of follow-up instructions, prescriptions, and patient education materials: PATIENT FOLLOW-UP INFORMATION Diet: Regular Discharge Activity: Ambulate as tolerated, Expect mild pain, Expect minimal amount of drainage and/or bleeding Discharge Restrictions: No driving for 24 hrs, Do not make important decisions for 24 hours, Do not drink alcoholic beverages for 24 hours Call Your Doctor For: Persistent or heavy bleeding, Temperature above 101.5 degrees, Redness, swelling, or pus at operative site, Severe pain at the operative site, Persistent vomiting Additional Instructions: Okay to shower tomorrow do not submerge incision underwater as in pool or tub or 2 weeks after surgery no heavy lifting pushing pulling greater than 35 pounds for 4 weeks after surgery IF UNABLE TO CONTACT YOUR PHYSICIAN AND YOU FEEL IT IS AN EMERGENCY, GO TO THE NEAREST EMERGENCY ROOM OR CALL [address] [place] [address] PATRICIA, have received the attached patient education materials/instructions and have verbalized understanding: May we do a follow up call? Yes No I was present when discharge instructions were given ____ Patient Signature _ Date Clinican/Nurse Signature Date Follow up: With: Address: When: Jay Power [address] [place] [address], [address] [address] [phone] Business (1) In 7 days 02/26/2022 Comments: Call for followup appointment Pharmacy Information: You may receive a survey from [employer] asking you to rate your care experience. Your feedback is important and will help us understand what we do well and how we can improve the quality of care we provide to you, your loved ones and our community. It?s an honor to serve you. Thank you for choosing [facility] HERE ARE THE MEDICATION CHANGES THAT OCCURRED DURING YOUR HOSPITAL STAY New Medications [employer] [address], [address], [place] [id number], [phone] acetaminophen-hydrocodone ([place]ary 325 mg-5 mg oral tablet) 1 Tablets By Mouth every 4 hours as needed for pain. Refills: 0. Medications to Continue with No Changes Other Medications albuterol (Albuterol (Eqv-ProAir HFA) 90 mcg/inh inhalation aerosol) 2 Puffs Inhalation every 6 hours as needed Shortness of breath or wheezing. amlodipine 10 Milligram By Mouth every day. aspirin (aspirin 81 mg Oral EC Tab) 1 Tablets By Mouth every day. atorvastatin 40 Milligram By Mouth every day. chlorthalidone 25 Milligram By Mouth every day. cholecalciferol (Vitamin D3) 50 Microgram By Mouth every day. isosorbide mononitrate 30 Milligram By Mouth once a day (in the morning). losartan 100 Milligram By Mouth every day. pantoprazole 40 Milligram By Mouth every day., pancreatitis sertraline 25 Milligram By Mouth every day. spironolactone 25 Milligram By Mouth every day. PATIENT EDUCATION INFORMATION Instructions: Laparoscopic Ventral Hernia Repair, Care After This sheet gives you information about how to care for yourself after your procedure. Your health care provider may also give you more specific instructions. If you have problems or questions, contact your health care provider. What can I expect after the procedure? After the procedure, it is common to have: ? Pain, discomfort, or soreness. Follow these instructions at home: Incision care ? Follow instructions from your health care provider about how to take care of your incision. Make sure you: ? Wash your hands with soap and water before you change your bandage (dressing) or before you touch your abdomen. If soap and water are not available, use hand band cutting machine operator. ? Change your dressing as told by your health care provider. ? Leave stitches (sutures), skin glue, or adhesive strips in place. These skin closures may need to stay in place for 2 weeks or longer. If adhesive strip edges start to loosen and curl up, you may trim the loose edges. Do not remove adhesive strips completely unless your health care provider tells you to do that. ? Check your incision area every day for signs of infection. Check for: ? Redness, swelling, or pain. ? Fluid or blood. ? Warmth. ? Pus or a bad smell. Bathing ? Do (more content not included)... [facility] Patient Education - Texton 1 04-21-2021 Patient Education - Text Gastroenterology Laparoscopic Ventral Hernia Repair, Care After This sheet gives you information about how to care for yourself after your procedure. Your health care provider may also give you more specific instructions. If you have problems or questions, contact your health care provider. What can I expect after the procedure? After the procedure, it is common to have: ? Pain, discomfort, or soreness. Follow these instructions at home: Incision care ? Follow instructions from your health care provider about how to take care of your incision. Make sure you: ? Wash your hands with soap and water before you change your bandage (dressing) or before you touch your abdomen. If soap and water are not available, use hand band cutting machine operator. ? Change your dressing as told by your health care provider. ? Leave stitches (sutures), skin glue, or adhesive strips in place. These skin closures may need to stay in place for 2 weeks or longer. If adhesive strip edges start to loosen and curl up, you may trim the loose edges. Do not remove adhesive strips completely unless your health care provider tells you to do that. ? Check your incision area every day for signs of infection. Check for: ? Redness, swelling, or pain. ? Fluid or blood. ? Warmth. ? Pus or a bad smell. Bathing ? Do not take baths, swim, or use a hot tub until your health care provider approves. Ask your health care provider if you can take showers. You may only be allowed to take sponge baths for bathing. ? Keep your bandage (dressing) dry until your health care provider says it can be removed. Activity ? Do not lift anything that is heavier than 10 lb (4.5 kg) until your health care provider approves. ? Do not drive or use heavy machinery while taking prescription pain medicine. Ask your health care provider when it is safe for you to drive or use heavy machinery. ? Do not drive for 24 hours if you were given a medicine to help you relax (sedative) during your procedure. ? Rest as told by your health care provider. You may return to your normal activities when your health care provider approves. General instructions ? Take cjvx-jfb-amlbovs and prescription medicines only as told by your health care provider. ? To prevent or treat constipation while you are taking prescription pain medicine, your health care provider may recommend that you: ? Take [id number]-cxmgmcb or prescription medicines. ? Eat foods that are high in fiber, such as fresh fruits and vegetables, whole grains, and beans. ? Limit foods that are high in fat and processed sugars, such as fried and sweet foods. ? Drink enough fluid to keep your urine clear or pale yellow. ? Hold a pillow over your abdomen when you cough or sneeze. This helps with pain. ? Keep all follow-up visits as told by your health care provider. This is important. Contact a health care provider if: ? You have: ? A fever or chills. ? Redness, swelling, or pain around your incision. ? Fluid or blood coming from your incision. ? Pus or a bad smell coming from your incision. ? Pain that gets worse or does not get better with medicine. ? Nausea or vomiting. ? A cough. ? Shortness of breath. ? Your incision feels warm to the touch. ? You have not had a bowel movement in three days. ? You are not able to urinate. Get help right away if: ? You have severe pain in your abdomen. ? You have persistent nausea and vomiting. ? You have redness, warmth, or pain in your leg. ? You have chest pain. ? You have trouble breathing. Summary ? After this procedure, it is common to have pain, discomfort, or soreness. ? Follow instructions from your health care provider about how to take care of your incision. ? Check your incision area every day for signs of infection. Report any signs of infection to your health care provider. ? Keep all follow-up visits as told by your health care provider. This is important. This information is not intended to replace advice given to you by your health care provider. Make sure you discuss any questions you have with your health care provider. Document Released: 03/09/2013 Document Revised: 03/05/2018 Document Reviewed: 11/12/2016 Elsevier Patient Education ? 2019 [employer] [facility] Progress Note-Physicianon Progress Note-Physician Patient: ADINA PERRY Age: 81 years Sex: Female : 1940 Associated Diagnoses: None Author: Rk Moreno Jr., DO Postoperative Information Post Operative Note: Post Anesthesia Care Unit. Anesthetic utilized: General. Health Status Allergies: Allergic Reactions (Selected) Moderate Percocet- Nausea. Severity Not Documented Darvocet-N 100- Vomiting. Problem list: All Problems BMI 20.0-20.9, adult / SNOMED CT 2432737809 / Confirmed Incisional hernia / SNOMED CT 179775983 / Confirmed RLQ abdominal pain / SNOMED CT 123328466 / Confirmed Ventral hernia / SNOMED CT 5408020152 / Confirmed Weight loss / SNOMED CT 483254944 / Confirmed Resolved: Anemia / SNOMED CT 019400233 Resolved: Fecal incontinence / SNOMED CT 022296212 Resolved: History of colon polyps / SNOMED CT 7383037154 Resolved: Nausea and vomiting / SNOMED CT 82614583 Resolved: Watery diarrhea / SNOMED CT 769412999 Physical Examination Vital Signs 02/19/2022 14:13 EST Heart Rate Monitored 65 bpm Respiratory Rate 16 br/min Systolic Blood Pressure 100 mmHg Diastolic Blood Pressure 48 mmHg LOW Blood Pressure Location Left arm Mean Arterial Pressure, Monitered 66 mmHg SpO2 95 % 02/19/2022 14:13 EST Temperature Temporal Artery 36.0 DegC LOW 02/19/2022 13:05 EST Heart Rate Monitored 52 bpm LOW Systolic Blood Pressure 91 mmHg Diastolic Blood Pressure 55 mmHg LOW Mean Arterial Pressure, Monitered 67 mmHg SpO2 98 % 02/19/2022 13:05 EST Respiratory Rate 16 br/min 02/19/2022 12:25 EST Heart Rate Monitored 54 bpm LOW Systolic Blood Pressure 103 mmHg Diastolic Blood Pressure 49 mmHg LOW Mean Arterial Pressure, Monitered 67 mmHg SpO2 99 % 02/19/2022 12:25 EST Respiratory Rate 14 br/min 02/19/2022 12:20 EST Heart Rate Monitored 60 bpm SpO2 100 % 02/19/2022 12:20 EST Respiratory Rate 16 br/min 02/19/2022 12:16 EST Heart Rate Monitored 58 bpm LOW Respiratory Rate 16 br/min SpO2 98 % 02/19/2022 12:14 EST SpO2 88 % LOW 02/19/2022 12:07 EST Heart Rate Monitored 57 bpm LOW Systolic Blood Pressure 115 mmHg Diastolic Blood Pressure 70 mmHg Mean Arterial Pressure, Monitered 85 mmHg SpO2 96 % 02/19/2022 12:05 EST Heart Rate Monitored 56 bpm LOW SpO2 98 % 02/19/2022 11:41 EST Heart Rate Monitored 55 bpm LOW 02/19/2022 11:05 EST Temperature Temporal Artery 36.5 DegC Heart Rate Monitored 56 bpm LOW Respiratory Rate 28 br/min HI Systolic Blood Pressure 118 mmHg Diastolic Blood Pressure 67 mmHg SpO2 93 % 02/19/2022 10:55 EST Temperature Axillary In Error DegC (In Error) Temperature Temporal Artery 37 DegC Heart Rate Monitored 53 bpm LOW Respiratory Rate Monitored 14 br/min Systolic Blood Pressure 109 mmHg Diastolic Blood Pressure 76 mmHg Blood Pressure Location Left arm SpO2 93 % 02/19/2022 10:42 EST Heart Rate Monitored 62 bpm Respiratory Rate Monitored 15 br/min Systolic Blood Pressure 155 mmHg HI Diastolic Blood Pressure 87 mmHg Blood Pressure Location Left arm SpO2 100 % 02/19/2022 10:35 EST Heart Rate Monitored 73 bpm Respiratory Rate Monitored 16 br/min Systolic Blood Pressure 126 mmHg Diastolic Blood Pressure 101 mmHg HI Blood Pressure Location Left arm SpO2 100 % 02/19/2022 10:30 EST Heart Rate Monitored 82 bpm Respiratory Rate Monitored 17 br/min Systolic Blood Pressure 148 mmHg HI Diastolic Blood Pressure 78 mmHg Blood Pressure Location Left arm SpO2 98 % 02/19/2022 10:25 EST Heart Rate Monitored 95 bpm Respiratory Rate Monitored 29 br/min Systolic Blood Pressure 152 mmHg HI Diastolic Blood Pressure 71 mmHg Blood Pressure Location Left arm SpO2 100 % 02/19/2022 10:20 EST Heart Rate Monitored 92 bpm Respiratory Rate Monitored 15 br/min Systolic Blood Pressure 182 mmHg HI Diastolic Blood Pressure 86 mmHg Blood Pressure Location Left arm SpO2 98 % 02/19/2022 10:14 EST Heart Rate Monitored 92 bpm Respiratory Rate Monitored 8 br/min Systolic Blood Pressure 189 mmHg HI Diastolic Blood Pressure 96 mmHg HI Blood Pressure Location Left arm SpO2 100 % 02/19/2022 10:09 EST Heart Rate Monitored 89 bpm Respiratory Rate Monitored 19 br/min Systolic Blood Pressure 190 mmHg HI Diastolic Blood Pressure 93 mmHg HI Blood Pressure Location Left arm SpO2 100 % 02/19/2022 10:04 EST Heart Rate Monitored 94 bpm Respiratory Rate Monitored 11 br/min Systolic Blood Pressure 183 mmHg HI Diastolic Blood Pressure 86 mmHg Blood Pressure Location Left arm SpO2 100 % 02/19/2022 9:59 EST Temperature Temporal Artery 36 DegC LOW Heart Rate Monitored 96 bpm Respiratory Rate Monitored 17 br/min Systolic Blood Pressure 184 mmHg HI Diastolic Blood Pressure 89 mmHg Blood Pressure Location Left arm SpO2 100 % Pain assessment: Pain Assessment 02/19/2022 14:13 EST Pain Symptoms Self Report No, able to self report Primary Pain Quality Tenderness 02/19/2022 13:05 EST Pain Symptoms Self Report No, able to self (more content not included)... [facility] Comment on above: Result Comment: Elec tronically Signed By: Rk Moreno Jr., DO\.br\Date and Time Signed: 02/19/22 14:40 EST Progress Note-Physician Patient: ADINA PERRY Age: 81 years Sex: Female : 1940 Associated Diagnoses: None Author: Rk Moreno Jr., DO Preoperative Information Time patient last ate or drank:=== (NPO since midnight) Anesthesia history: Patient History: No prior problems with anesthesia.. Re-eval prior to induction: Inital eval reviewed: No significant interval change, Surgical H&P documented and on chart. Surgical consent signed and on chart.. Anesthesia results Review of Systems Cardiovascular: Negative except as documented in history of present illness. Respiratory: Negative. Neurologic: Negative. Health Status Allergies: Allergic Reactions (Selected) Moderate Percocet- Nausea. Severity Not Documented Darvocet-N 100- Vomiting., Allergies (2) Active Reaction Percocet Nausea Darvocet-N 100 vomiting Current medications: (Selected) Inpatient Medications Ordered HYDROmorphone 1 mg/mL injectable solution: 0.4 mg = 0.4 mL, Injection, IV Push, q4min PRN Pain for 5 dose(s), Stop date Limited # of times, Routine, Start date 02/19/22 6:42:00 EST, 02/19/22 6:42:00 EST Lactated Ringers IV Tara 1000 mL 1,000 mL: 1,000 mL, IV, 100 mL/hr, Routine, Start date 11/16/22 6:42:00 EST, 10 hour(s), Total volume (mL): 1,000, 48.8 kg, 1.41, m2 Lactated Ringers IV Tara 1000 mL 1,000 mL: 1,000 mL, IV, 150 mL/hr, Routine, Start date 02/19/22 6:00:00 EST, 6.7 hour(s), Total volume (mL): 1,000, 48.8 kg, 1.41, m2 cefazolin additive + Sodium Chloride 0.9% intravenous solution 50 mL: 2 gram = 1 EA, Powder-Inj, IV Piggyback, PREOP, Routine, Start date 02/19/22 6:00:00 EST, 100 mL/hr, Infuse over 30 minute(s) Documented Medications Documented Albuterol (Eqv-ProAir HFA) 90 mcg/inh inhalation aerosol: 2 puff(s), Inhalation, q6hr Shortness of breath or wheezing, Refill(s) 0 Vitamin D3: 50 mcg, Oral, Daily, Refills(s) 0, Prophylaxis amlodipine: 10 mg, Oral, Daily, Refills(s) 0, High blood pressure aspirin 81 mg Oral EC Tab: 81 mg = 1 tab(s), Oral, Daily, Refills(s) 0, Prophylaxis atorvastatin: 40 mg, Oral, Daily, Refills(s) 0, High cholesterol chlorthalidone: 25 mg, Oral, Daily, Refills(s) 0, diuretic/water pill isosorbide mononitrate: 30 mg, Oral, qAM, Refills(s) 0, High blood pressure losartan: 100 mg, Oral, Daily, Refills(s) 0, High blood pressure pantoprazole: 40 mg, Oral, Daily, Refills(s) 0, Control of stomach acid sertraline: 25 mg, Oral, Daily, Refills(s) 0, Depression spironolactone: 25 mg, Oral, Daily, Refills(s) 0, diuretic/water pill Histories Past Medical History: Resolved Watery diarrhea ([id number]): Resolved. Fecal incontinence (802819304): Resolved. Nausea and vomiting (43168346): Resolved. History of colon polyps (2660782643): Resolved. Anemia (897128218): Resolved. Family History: Heart disease Father Primary malignant neoplasm of lung Sister Diabetes mellitus type 2 Father Brother Procedure history: Colonoscopy ([id number]) on 01/17/2022 at 81 Years. Comments: 01/17/2022 11:03 EDT - Hernan MILLS, Jennifer biopsies, diverticulosis EGD - Esophagogastroduodenoscopy ([id number]) on 07/06/2020 at 80 Years. Comments: 01/09/2022 16:03 EDT - Rajwinder Ho Dr Colonoscopy ([id number]). Comments: 01/09/2022 16:02 EDT - Rajwinder Ho 2010 Esophagogastroduodenoscopy ([id number]). Comments: 01/17/2022 11:03 EDT - Jennifer Becerra RN normal, gastric biopsies section ([id number]). History of hysterectomy. ([id number]). CE - Cataract extraction ([id number]). Procedure on back ([id number]). Arthroplasty of knee ([id number]). Bladder operation ([id number]). Social History Social & Psychosocial Habits Alcohol 02/04/2022 Risk Assessment: Denies Alcohol Use Substance Abuse 02/04/2022 Risk Assessment: Denies Substance Abuse Tobacco 01/10/2022 Tobacco Use: Never (less than 100 in l Smokeless tobacco use: Never 02/04/2022 Risk Assessment: Denies Tobacco Use . Physical Examination Airway: Mallampati classification: II (soft palate, fauces, uvula visible). Respiratory: Lungs are clear to auscultation. Cardiovascular: Regular rhythm. Review / Management Results review: Lab results 01/13/2022 18:00 EDT Fecal WBC Lactoferrin Negative Giardia Direct EIA Negative Ova/Para Exam Rt Final report Result 1 Comment 01/10/2022 12:17 EDT WBC 10.1 E9/L RBC 4.1 E12/L LOW HGB 12.2 gm/dL Hct 37.1 % MCV 90.8 fL MCH 30.0 pg MCHC 33.0 gm/dL RDW 14.7 % HI Platelet 281.0 E9/L MPV 7.9 fL Neutro Auto 69.3 % Lymph Auto 20.0 % Irwin Auto 8.7 % Eos Auto 1.0 % Basophil Auto 1.0 % Neutro Absolute 7.0 E9/L Lymph Absolute 2.0 E9/L Irwin Absolute 0.9 E9/L Eos Absolute 0.1 E9/L Basophil Absolute 0.1 E9/L Glucose Lvl 94 mg/dL BUN 25 mg/dL HI Creatinine 1.2 mg/dL eGFR 43 mL/min/1.73 m2 LOW eGFR AA 53 mL/min/1.73 m2 LOW BUN/Creat Ratio 21 HI Sodium Lvl 140 mmol/L Potassium Lvl 4.7 mmol/L (more content not included)... [facility] Comment on above: Result Comment: Elec tronically Signed By: Rk Moreno Jr., DO\.br\Date and Time Signed: 02/19/22 06:44 EST Coding Summary.on 02-10-2022 Coding Summary. [id number] Gh0bWw +PGhlYWQ+AQ9WETJzE61kaXBnr R3SQ5cUUR0KGVHWYUDDZD4RMG4 tyHS9LZqiQ6UhgcXu HunvxFJeBL03HTn0HBN4oDljUH nkcK0xzNOwI3p4JwMrLP31sX58 VJnqAKLgOyF9XmRmcduvtKCl X6zvOhMybAPbZok+PHRhYmxlIH veLOSuVKnwELOwYuBitWfjZT5k Lv0cDYBpVXPahKdcaFKxPsGu i8goEJLjZWvmTG4fwDqpY8VqbI X1FAOer9m9Hk34nUB+PHRkIHN0 iAutEVlws367SeIia2tzUAD3 uPTrUEtsJDY9I96yq6F3VDBoUY JtPQK8qJF0tK6pkBibgxwuH2Tn vNWjWjR7CEA0qVZybK4rtMxo okleqN7aPjh+P93PLM0UAVQCSH 1VYjr3N6ByZuhfvBY+QZ51DPXl UZ77bCOccPJfz5wnvBg0RaRs IAXuNQN7nFieUHema4BzQYOfY1 8tpIOwl0Y4GRUxxBlhxUZdJgRs sML9jY4tCDikhtzbe0snzbzq Vblkm3crpc07nY19C72pMFswWQ LhKNN4XXVcUILgpSxelm8nvO9m Ii8+CJecr2bgc3iqzQo0HmDk OVJpqbLaoSulBOL5r3HuSv04Z7 FruQels7BnQrx4yt25fGLwq4J2 eXZ6NFckTOBlzG4wKMdsGoK9 BLOxLjWfoK86fSLgCYyhHu6seC ukcQarYH7pFDHoxpkoUMQhmI6l QXFloAYigObaPH3eHYNnkuuc g334VdDlSYZ7YZXigJDoO2TmpT 3qAtErMHSnIZMyH7DrpTTxOGmm M872XRymYjQ4SUKgpdEjG0Iw INQhkOuuSxR1l4F6Vz7Ac2Vfzk bkLYG6BOvuGBLwRqF0JqHnMdT8 Z7VsIfm3ZZCfhRsyBI6jX3Ti RDNfwpdbrvigkXP3NUSkSKBjlI 42aSBlMXsbWu2xu9U9r893ONNr ZOBoeJ28Li0xaLvqHVGbkZJM yH0ojglyk4ininzhOrBuACDmVE f5DYr3TBZiiYdcDsElXRA8DjF4 EOT6eQBpeW2yhXegkpcijR6g Oyc+W39zlW3gNDQ5KGY2ehqoLS GykvRqUJ51GX28X5KgDvzokWOs bGU+GEOpfqIjkFupVG8jMjJy o0etc8RtWAhuK7XrHBSnGXsnPe q0BRTpHAZ9jPV9jZ6eZKJfCXjv g2A4iCK0J0OtquCuby2ws9qd KVWpGFdmS02evLSkt6K8WZVvpC H2XGYkeEydMkCuuC82Jdf+PGNv nWsjn4AxDkroe5twa1bulLc6 PtIzYEVvdvOtbHglQMM1a0CqFz 41P82yPRbeUCAmSHAaZCArEMXy wOcysm9byZ3vPm9+PGNvbCB3 jRQ7aV3kBHHnMfA0WCysG252Iy GbjQNkVxiiv4mbj9fvyId2MzYp PIWxdlHhpRrzPZN2z4UkMn74 G60uJSptMQIpDAGlPVYfDULshC qgpa3sjS3kGy8+ZR8ac5drnp63 oA68wOO+MRMhUHZ6dOfcLHyd IVGeiA0kILuhUoG6IDUmPhZxaJ 87sRJrVNkpSy1skPylkTecDO2n VYGwtlxiz632BiKzt9dyKUBb mOHlCDeyXFP9A47fu5U8VWToMQ UfNWL2rLS2kA5vpOrrfulzxGUo iRtlacCtgHduUQziNKnpO589 IHRvcDsnPlBhdGllbnQgTmFtZT e1A7AnJoe9ODLkqRqcIE1zfLHn IPxkCp6qpZtoiZosVE2qZJUg hbrys475YuZhe5pxNZUryWIoMM ttTNH5A07eg7V4YWMeGJPrLQA6 pOS8aJ2lzOtrrdfsgBFvbAbw hqAndZasMNhqKSnsB626YULomX ssCgSjhtWkEIPkwTT5BZ11QF95 aJBeb9A8oNZ7U3SfKJSvbedn rcbvtBL5ISLbSDEupU01Cu5zxW koZl8jOQPbXCK0APQosKWiO1Zn uK1nCpQiHAGbVJCtQ9WpbNPy AVloD758CUeqNdS3IYNumoGzW6 TrPTBapKemMcS3x2C6Uu0TA6N4 FG99US55jJSxk8G0tLM9J0Nt OECzmxidtcveqSP7BGPzXFPxnA 75Pi0ptGvaWd8jVOWcWQE1OJLn iJHjD4WdnA6oCzRbNXXpURKz X3DnaUYoUPcwC106GUuwNiH8IP SwdoRsB5BoTMJarWdhIbP1l2A0 Es2PSPm9CU29CE71xQObl8V5 qHI9L7XvSEMzjtfpibordER4JG MrESCknX99Ry1ipKmwMa3iWCTp JFR9VEYduEMxI0BbuV6cOoZk VCExWCFaR7PqiFQyZDxoK304DB jjPmA8FMSxwlZwH0MtISNtdHdf GiC8e7H3We3UWZKlLC01OPS1 rSR1XC49IQ27Y1ZwFjbylSKwzD U+PHRhYmxlIHdpZHRoPScxMDAl ZsBiePnpPH3oFk7gDSUwZZFz xXrzjQRyMpFgd1cySGGiCGvbAC 8weRwaM7RdaWK4QPEwf8p6Ij93 S37lT0BxgKV+ORWxxLC5aMY0 tI9kKiBjUlT8YVgbJ030BrPtyB LgKsqet3wrn7krzDy7ChP6EUEw ycChtDwmFSD3r9EhUz90T65j IHdpZHRoPSIxNSUiIHZhbGlnbj 6ixJ1uBm3+HPHwjSA1qOK8iB4g VpCwQiV8XMvpN602DpNffQZd Rhrdg4cqu7xivCe3QhMoZLJzsp CdaRvxFOK5y2YkLz29R2QvjZgu v6IsKkr9du23cNYbs5L3hOJ7 F2FnMXZqrfvhvWQyvHxzGO8pKM DnulhkKPMvfR9uYPTzT6k2XtMf KcI9TAfxN8MbpvY4ICAnsJGz GAwjECP5R52vp9P4EKWtDTZiPQ L4tVI1yR8piEbexfsflPUbxGrc jaAhhHmqUWvoOCajF640HIGv fOogDMQfwC2rPMYkiCFpsMexNQ 7sYXUsqmmxFvIXI8PUR8TsVIDK KNUEW8hZFZ95OT64aJIdg1D0 jDE8O3ZtSROgufxjjdlumXJ9CW RmNANjfF93tKLsZAiuEr7qg2X4 h736GHTwFPUzzB99Tt9hcRkn QSHmgTZQnJ0qlnkyz6neykkjRp VxWTRxPDx6PSt2JCXvxQofWpEa NEU7JfM6FJV9bSBrbI0ifEfy hjpoqO0pLwl+ZPTuXQGhZIp6Bx wvdGQ+QXWwDZB0uGleCYgpWGBa cV1hVMScN1q2QwLpSlO1JKxp Z6ReZYSmfhtmYq98rJ6hGnMnWx V7FCswX9VydiV9SCFimPMrSLhy DKU9P84rs6Q3ITBhWYCxFGG9 uKY7wG6ndUalydvjaRHchZnvmz MljAtqQCpeWLjyF595FZIjjCuh Usv4NRpcEZFcCG50ZO13kBRj s4K2eEA5U6GdFQFzkfmzniqqiA I7IYHwJSBfkD40bZEdQRzsRi1x f5N3l192JHXqDATnhH56Kr5o bDptOSNjnGEHdO6nxbcfh3eysw zjOxUjRZXuTBy7APw4MEYcvKnw NlAqZVA4BsQ3OZJ0rJOcyQ8z lMmpxxxhrR3bEaz+RmVtYWxlPC 44XK28oYWjr5R0cZT2C0DiTBKp plxqeyfeaSL8GMRbKGWnwN15 hOAnYTagQb4jp7P1m976FKYsEN MjmK47Qm9gdXqoTHJisUQScZ1v ggnjo6ucpxwpCrTjPRIvBQp2 VPk7WTJyuCxpHvYuZWW5MmS5QT H2xLPkdF4wcFrvbgjxvW3rVgo+ P0R9mCY0tROuxRhnaUV+PC90 lb36F2BcBhexUsh9JSYrRMG3hC K6cS0eYPOdZZbul7O8uHM7E1Wy erLeap0qw8chXYSnVUgrX92g sFMns1N0CQSseCE3OJKawTgyPj BxzJ50Hkr+WEFfuOmjm4IvZfyy o2iyi6swjVc1IyRoMUZhupMr kQevTVW7t9AtBm91N71nZWlpGP QdCKDsXTFsKSQweHqrrw7mpX7j Ii8+SDCorTZ9dGO2xB6vLxXw MkI5AHqsM597BfQufXQmZcgvq5 dty3sbhYu2AgCnTGQrnzMjqAww TFA9s9TwJb06T1DeoXojl9Ki Dis3pa51eUOxq1V9aGS8Z0ElGG AqfgxlwLXtqQhtGT8mEYPapjpt LGGwoY4kHYGgF1h1KmQhVoX2 NNovT5KtjwP6COEqcWImRUMtnD TEuD0xqmvrl6empyleDzMxBJBf JGg1ELr6SAWzzXusYbLhHGO0 YuD4MTF0pXRyeV2buGoeoqhzfL 9wOyc+XUo5q4vxvTWqQK3veKT1 SL75EE17qUElf3A5fCU1P3Sy EKQlbxdwxfhtlSJ0HOBcIJRmzC 79Rl6hmYdhNz8zRGNlSVF6KOUl rHUkM8WimM6oNjBjWAMmJCCd R1VmtMUaCUfpG010OFqcStS6FM UuerTwH9AvGJMtkJszPdO6c8C8 Nc4OOV70DD53XZ87jRAen0U0 wMP8S3EqRECokattyfvyoYO0KT MuWACewK82Qk2zhTgcOx2uMXIz HGZ8HWFazKQaD5ZwlV4bOuSj MGVnJACoN4IbrBAjEMbbE886TY xmFaJ2ZZNtipIwA2UtYORpmFwo UvV2f0A0Wa5MYk45QL89HD49 aOCvy7T1tZG6Y2KtDTTdlfnyeo mxvNY3YEUhGSCnjX31Ar1pvTfu Kk4gSZSoOTU9IUXwjEQnW7Ub rK2uSkRcMANxLKAjT7BauWGsAA frV081YBxxRtK5CEMvdaRbD1Rb OMMlkQczMjL6b5J9By5JJAjg izi2I0XoHeamqOG+UT96LRWgAE 31xOOueTNmu3ykbYs8MoWfASSf UQW1aDzyYNaup0NzZTGtT40k bGFw (more content not included)... [facility] Outside Recordson 02-07-2022 Outside Records [id number]#1.00CD:127 [facility] Consent for Procedure/Surger yon 02-05-2022 Consent for Procedure/Surgery [id number]#1.00CD:127 [facility] Outside Recordson 02-05-2022 Outside Records [id number]#1.00CD:127 [facility] Consent for Treatmenton Consent for Treatment [id number]#1.00CD:127 [facility] XR Chest 2 Viewson 2 XR Chest 2 Views Exam Date/Time: 02/04/2022 14:46 EDT Reason for Exam: PRE OP Report IMPRESSION: There are no acute cardiopulmonary changes. CLINICAL HISTORY: PRE OP COMPARISON: FINDINGS: The cardiomediastinal silhouette is unremarkable. The lungs are free of infiltrates effusions or consolidations. The bones and soft tissues are within normal limits. FINAL REPORT Dictated: 02/04/2022 5:03 pm Serg Araiza MD, V. Signed (Electronic Signature): 02/04/2022 5:03 pm Signed by: Serg Araiza MD, V. 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 female here for ventral hernia Referred by Shi Urbano CT Pelvis done 11/13/2021 She denies pain. She denies hernia surgery prior. History of Present Illness Adina Perry was referred to us for a fat containing ventral hernia by Shi Urbano CNP. She was last seen by Ms. Urbano on 01/10/2022 where she states that the patient had undergone a CT scan of the abdomen and pelvis with IV with contrast performed at [facility], which showed a fat containing ventral hernia. However, on review of the actual report of that CT scan from 11/12/2021 at [facility], CT abdomen and pelvis with contrast to rule out diverticulitis. There was nothing mentioning a hernia in the body of the report nor in the findings. [facility] did not push through the images to our PACS system. I am unable to review these myself at this time. Our office is in contact with their radiology department to rectify this mistake. After calling and speaking with our radiology department and [facility], they have put the images through and it does indeed show a small ventral hernia and then associated area of diastasis. There is a small 2 cm in diameter fat containing ventral hernia. The patient reports that she does have a history of IBS with intermittent cramping, abdominal pain, as well as diarrhea and constipation. She does report some periumbilical and left hypogastric cramping. As far as surgical history, she had an abdominal hysterectomy performed in an open fashion in the 60s and 70s, roughly she believes. The patient has also had a bladder sling surgery done, per her report. On review of her medications, she does not currently take any blood thinners other than an aspirin. Review of Systems Constitutional: no fever, no sweats, no weight loss. Eyes: no glasses, no blurred vision, no visual loss. ENMT: no dentures, no hoarseness, no swallowing difficulties, no hearing loss, no ear infection (s), no nose bleeds. Cardiovascular: normal blood pressure, no chest pain, regular heartbeat, no heart murmur. Respiratory: no shortness of breath, no cough, no wheezing, no asthma. Gastrointestinal: no nausea, no vomiting, no diarrhea, no constipation, no blood in stool, no change in bowel habits, no abdominal pain, no hepatitis. Genitourinary: no kidney stones, no urine infection, no difficulty passing urine. Musculoskeletal: no pain, no weakness. Skin: no changing moles, no rash, no skin lumps. Neurologic: no seizures, no epilepsy, no headache. Psychiatric: no emotional, no psychiatric problem. Endocrine: no thyroid, no diabetes. Heme/Lymph: no bleeding problems, no anemia, no blood clots, no transfusions. Allergy/Immunologic: no swollen lymph nodes/glands, no IV drug abuse. Other: Additional ROS info: Except as noted in the above Review of Systems and in the History of Present Illness, all other systems have been reviewed and are negative or noncontributory. Physical Exam Vitals & Measurements HR: 58(Peripheral) BP: 133/65 SpO2: 99% HT: 59 in HT: 150 cm WT: 48 kg WT: 105.6 lb BMI: 21.33 General: No acute distress Respiratory: Unlabored breathing on room air Cardiac: Regular rate and rhythm Abdomen: There is a fat containing paramedian left-sided incisional hernia associated with a midline laparotomy scar that extends to just above the umbilicus down to the level of the pubic symphysis. The patient has also had a bladder lift surgery done per her report. Assessment/Plan The patient is a 81-year-old female with a symptomatic incisional hernia. 1. Incisional hernia (K43.2: Incisional hernia without obstruction or gangrene) We will proceed with a robotic assisted repair of incisional hernia with mesh. The patient may schedule the surgery at her earliest convenience. Signs and symptoms of incarceration and strangulation were discussed with the patient. 2. BMI 20.0-20.9, adult (Z68.20: Body mass index [BMI] 20.0-20.9, adult) ATTESTATION: Documentation services were performed after patient or guardian consented to allow Lizz Martinez to record this visit. ANA M database specialist and provider reviewed before signing. ANA M: Radha Mcgee. Follow-up No qualifying data available Problem List/Past Medical History Ongoing Anemia BMI 20.0-20.9, adult Fecal incontinence History of colon polyps Incisional hernia Nausea and vomiting RLQ abdominal pain Ventral hernia Watery diarrhea Weight loss Historical No qualifying data Procedure/Surgical History Colonoscopy (01/17/2022), EGD - Esophagogastroduodenoscopy (07/06/2020), Colonoscopy, Esophagogastroduodenoscopy . Medications albuterol amlodipine aspirin 81 mg Oral EC Tab atorvastatin, 40 mg, Oral, Daily budesonide-formoterol 160 mcg-4.5 mcg/inh Inh Aer w/adapter, Not taking chlorthalidone gabapentin, 300 mg, Oral isosorbide mononitrate, 30 mg, (more content not included)... [facility] Comment on above: Result Comment: Elec tronically Signed By: Jay Power MD\.br\Date and Time Signed: 02/03/22 11:22 EDT\.br\Electronically Co-Signed By: Radha Mcgee\.br\Date and Time Co-Signed: 02/03/22 11:04 EDT Reminderson 02-03-2022 Reminders - From: Marly Riggins MA To: Marly Riggins MA; Sent: 02/03/2022 10:11:05 EDT Show up: 02/06/2022 10:10:00 EDT Subject: CT Imaging Reminder/Recall CT done [place]/12/2021 at [facility] Spoke with [facility] and they pushed through the imaging Look at PAC Received imaging per Dr. Power [facility] RAD - CT Reporton 01-31-[address] - [address] Report [id number]#1.00CD:127 [facility] IntraOperative Documentson 1 IntraOperative Documents [id number]#1.00CD:127 [facility] Postoperative Documentson Postoperative Documents [id number]#1.00CD:127 [facility] Coding Summary.on 01-21-2022 Coding Summary. [id number] Gh0bWw +PGhlYWQ+RQ8YKMKpY29atVYjp J0YN0hDTP9JDNJZZSCXLT0DNM3 yhOI5YFvhO3FvcbXs DttnqIGaOL21BUm9GPY9lMlzFW nwvU6aeOGlH8s3VwRaYI49gF51 IZceGBEiFqV8GpYmsimobKGn X8elDjBdqCHwPlz+PHRhYmxlIH euHEUlPJcxNYJrDsMisNiuFK9n Hc0aPAXoKYGiiNjzxYOvMjEb n3tbGHKkZOyyIH2srJjvN4MrlX T1BJJuu8p6Yy88vYZ+PHRkIHN0 iVofFQixx494ZgVzj0tbXBP6 dPRgNKwgOVB5T69km0N7UIHdVU RfSAF3fTH5zZ6oqPqmaayqD5Ys cWBaCoZ6EZP8pETdkL2uqXqs srgnyF2vTqt+U21TFJ3KDILPFP 9DUls1J4AnIwyedYM+ZX12EIEq OQ03qUHtaTJqe8ehtEo8OxNv JMGlGBV8pAsvCXhek7MaREUoI8 8hbKRnx3G1MFHuqRixvWFoMqHe aAI9cK2uOWsgvlgzh5hlfdvm Ejicc4vrck60tC40R93pBTsaXR AhYYH4EXRxBIPfgWgsxr6dnB9m Ii8+RNfwn8ohr1sycNd3LgIt DYMitdTfaJydWBC5r5BfOc94N8 VxnWnqy1LiYfb3ds00jVAcf3E6 wGU5SMhqASAibQ8dROhoUzP8 HMXfWpPwjH38zPRkIZljIa6spP awnGowHT2wGDNvrefdJOCsoR6j LKKxpADseFwtRD3cTXZtucql m167RwCqNQF3UBFtaCYgL5NjnE 4pAdDqZEFoGZYkV1FsgTDlQTad L386FAltPqW7SSJkifBcU0Fw UEUgcUoyPpF4n3T1Fm4Kt4Itzo sbFRR1COysDGKrYqT8LcXmBqB2 S0FuFmy1AAKduTsuMI2xW7Tu TLJaibdmouxtwPI5SPDeSMHhlX 93bTEoXOzoYc1ep1W3d827QBSn NLRgkT06Jn8tsGocRFXpmLFR zB1iwflsx8phdoxlJrUlARQfGV t2IKx9KDSwyWgsGdOsWTY8BvN3 FEY3eKLclE4hrNgmstoyxG8k Oyc+B49kkD1vMWX3CTX0etxkCY GhriGbXG06QF60J1BtHfzgfOAd bGU+NUDpueXsnYhpOM8kEbDp t5tdc7NcVWqpI5FgIKHuUQfmVy c2IHHoSHF8cNR6qP0oGOFhQWpa f4E4nKC4D7NureMlft1zs8ez XUFlKMukR83olARru5H0SWEdnV B3IHUddXtcQdSfdR95Yeh+PGNv rHsde0HkGnmmt4nda4dugYh8 PtOuMHDcnwPlqEdaYHC4q8WgOo 45E26tXCklTKZbFNHgHGLuTBHz mTnatq1fmD1jLw9+PGNvbCB3 cIL8fR3eDDHdEuD4GDxvJ589Ef FgeNYiZhoib5akj4rvrWh6SsPk CHZlvsCjtCanYCY1i7JvZp41 H08pAOxjHECdCTFtMOJhRGYnjY ezli1tlF7kIa7+PI9mg5jfaf95 lI54oNP+MTNcXEU4jTvzJNxf XGSzpE0kDJniNzE1AZQpUtCqnH 30rXVfFPdkLf7huBzioJxvBB8a UAOjkpzrm474KvVne4qnUYRg wRYaPScmTPD4K43to5V7CREaYC PbTUT6fZR2vX1eoUuivorhnHKb yQdsnvQfmIvfPAdfPZnzB207 IHRvcDsnPlBhdGllbnQgTmFtZT c4I3TaDby8QVYalUvlMR7uhBTx CLqbDl3paPtryNixUS1mEDPj kchxr433ByHom2okMPQylSEgBG hhEMD8V52zl8L4GDZyEPJaERG7 wAH4jG6pwVijqfnpqZYqcDjr waRioJkyZLadJPxuD868XPWjoB mjUaGgmmHnVNHdcNI0II88FR70 sCTmj9F9dHO6V5QzUZBcncxd pmxtvOT8FLZcOFUnvY23Xr7eiB coAf1oLMExLYK4JPMcjKRcL4Zy hK9fArTqIMXdDBBnN1DajWPf IVmpT243BEdkQgX4HDEadfIfP7 QnHSTwfWfqZiP7h5D8Gz1RR9R4 XC74HS81eLNzc5G3gKN3W0Rn FUAdnnwjiqlthXA8XIIjBOXbuN 22Vu5gmXspYd0cMYMqSYS9ORDa wKSaX6BctN8dVwMvQXKvYPRw A2DsyGXbFJueG534VVitOwT0CN ZtcmXcG5JgVRQueKzlZdP2g3V3 Fu7VCUc3ZF11BT37gMUss4F2 ePJ8D9FmZYFiyobfrwqjsTN9KK VvTEUypO45Vo7epUjmDo9iOWKd MXV2FBIwrOSvG9XtmR5eBfEq FROnBGDaO1FefMPuYSvdE039KV zvXmZ0MXVxhtXeK9LvQPKwkDwn SpU9y4Q7Or5IFGEcSH88YCX3 aTG9AN94IP32M3NxDzeryGDmfR U+PHRhYmxlIHdpZHRoPScxMDAl OiEccXqyMD5rLj3yAQRiOCBc fDtuhMGxPmMox0cmDUJdNZnsHV 9ixOdnC2VrfWB2JMDry9d7Rb47 Z71eW0MlhPA+GLYauVE9gNE8 cA7aXbArYaO8RBeeA352EmIpqY DmAnhmd8wtq6draBw8HfV2WXDg mrMahDnyOAO1u9VwDq85Y26z IHdpZHRoPSIxNSUiIHZhbGlnbj 4ptY5jNi0+RZVxrSV8lYM5xC3e ZyGzPxH1PVpuI470JvMppRXo Ukvip5qhm0drdDt7QfNuCPLncl DghYwgJEG6x1AbVq75D9RxyRnb r1WhAup3da76cSTyl2Z1dXN4 H5LwEXLkltgaiZIxnWcwCY5sTY FfqpupBUWzcT4tZSZbV3c2LsBn CcP4RQdaX4MmurM2PIFgfHId VOueCMZ3X75yu5G1FAJsKVKwPN Z7uLX1eV3awPcowfnrxPZrxZqo zbUdiSxsMXdyZNysA898AADy uPcxKUEylQ9uUKSivWVmnGbjAZ 2bAACcvymdHwYFM4ROD5YvKVJT NMOVJ4dWJA55CP86wKNgk8G7 sVV8U1VmHNQtannazcazsEM1YO AtIVSjrM58zFHtMSgoVk1dp9A5 e162IMYgJAOtyN99Er5kgQto DOVpjZISvO9dvwmgc6vrsjwjFf PoCFLkUSx7SDq3YPLepWjiZgTl GMW5YkN9NQH0wPXstD1veCml owxunU8tXsa+LXHmJPWgBXd0Nt wvdGQ+QRVzOGY3rWkfIQxfJKYe wZ9hPMPyU9p1VuUkUbP9NFqp W8EkYDOklpfuSt72bP5wXmGeRy E1BTijC6GdcaY9PLQazXJhUPaj PRE3V55vw1O9UVNrUPUpWHQ7 fLS8nP5lnKemhhgnoSLrvCcswz OpkOavXDjwKYuiF867LNBzvCbj Ihk2TXoxXGWfBS38IG93rFIq i5M7lNS7B7WyDREsbfkyuolhfU X0JPZiTAOwyI70nVQtBTnuVp6v w1K9g682IHYnABAlqT65Gb2q qJbxWFQbvDDThH2dcstfb6nghr fcLtOqKXSdPMg8WVb7AACtxBpj ObHuLXU1MvO3FJZ7vTQqrW1q uCjkcpibeB3aChj+RmVtYWxlPC 58QK87rZTpo3L9fAN7H4EgOXVm olipzidlkBB6SQByPEPlmM85 tSEhJAkoDg2kv6J7a679FXFlZD JjmE77On5bnJimDDOauSBLyI5j swtsa5ywziaxKwLbYUNkUZk4 JPs1HQSmrGezWmLkUQP4XjV6VC R4xKWzdB9aaAbeigzcfS7tFfh+ H4E4sRY9xYHshVcdqCM+PC90 gk38Z4MzKyfgNal4HRIrOMC4yU M4oG3hICHaWPonx4E1rYM9D4Tp qcQszx7yb3weAXMuYFnsJ83y pKAuc4H9VUSffUA0KWPmnRhdEj ViaH66Zmo+IXAagCokv1PsGofy b6jrb9czzSy1FnQjMOJxrkPh tQekIRJ4q2OiNp21N51cJZejJP RnZCRuWNZmYJNamMqymf3khG4d Ii8+HICjwNN3yHT6lC2sBzKr CpG6FXniS669BsIypSUmSskmt7 cin1gekRb9EoHlQXCbjeYrjXyz VQY5c0NsMh56O5UdeXrzj6Yd Ufg5nw78bAKsh5C1gJY3T4ObFT EjsoycyHBecHprQD1yCYYtkjri HJFplZ0fSZHcS0x4DiHaUwZ0 ZAblM7MoyqI8NPSaiKIsWLFjiA XTbU1utwlks9epdybwTrEwZEFe VMr6DSn6NZHfhHlkFcQzPGP4 YaD3NWI4iLBpaZ5jfNwjnquowL 9wOyc+SWh2p8wbtXDdHP5hlCS8 PC87LO41oGBip6B3bFM1L7Dc UZJvicrekpngmLX2KPAnYKQriT 35Hh8dqBzkAx2eHEQgYNI0CDSk uDNaQ1NafK1rStOdQXLgTJEs F2LpvHQiYAhqH815RXdwBkS7SE TjtzZrJ2BxNUVnhYrdZhZ9p4W1 Dj5SMP41IQ55UG56sLUgy6Y5 pMF1B5VkECXvsmhziwhadMS7BH FcFXFotJ04Rh7bwVocJg7gTFWz ZLN4QVJcfBIhC4QqjI9vMxRd DUPpAABaH3GjlCWjCFfaH222OB dpMjN0LDTncmKvX8EfFQGywSkk RwC2d0Q1Dm0TVp96XH33CW41 xFYrk1B7xEY4M5ZfKGDuedvuna sgjFN1IVYwJRMukV69Zj2iyXoy Ux7gZISeARI5VZEmtCVsX0Pu eR1uDdIsPGSeHSQwY9BlqMErKE wfS176YEtpCkM9YSOigqQaV4Bs FIItjAjnJwP3t3B6Jt1CCAlx qfj8A1QtTqzjgXF+CF19TGPiQB 76bJBjoNKxr5mzdFj6UjLuKTCw LND4dHxuIAihu0OxNRWqT50x bGFw (more content not included)... Normal [facility] Giardia, Direct, EIAon 01-21 G. lamblia Ag IA Ql (Stl) Negative Invalid Interpretation Code Negative [facility] Comment on above: Result Comment: Perf ormed at: [facility] [address] [id number] PhD Yolanda Jiang Performed By: #### 1 [id number] ####[facility] [id number] [place] [address] Main OR Intraoperative Recor don 01-21-2022 Main OR Intraoperative Record IntraOp Document Type FT Summary Primary Physician: Jeferson COPE MD Finalized Date/Time: 01/21/22 11:55:08 Pt. Name: ADINA PERRY/Sex: 1940 Female Med Rec #: [id number] Physician: Jeferson COPE MD Financial #: [id number] Pt. Type: O Room/Bed: / Admit/Disch: 01/17/22 07:25:21 - 01/17/22 23:59:59 Institution: Case Times FT Entry 1 Patient Times In Room 01/17/22 09:27:00 Out Room 01/17/22 09:55:00 Procedure Times Start 01/17/22 09:31:00 Stop 01/17/22 09:53:00 Anesthesia Times Start 01/17/22 09:27:00 Stop 01/17/22 09:55:00 Time at [facility] 01/17/22 09:44:00 Last Modified By: Daniel MILLS, Riddhi Maravilla 01/17/22 09:55:43 General Comments: EGD end time at 0934./JEAN,RN Colonoscopy start time at 0935./KS,RN 01/21/22 Chart opened to review and send charges [facility] Case Attendance FT Entry 1 Entry 2 Entry 3 Case Attendee Shelly Craig RN, Michelle Fuentes Role Performed Anesthesiologist Patient Relations Liaison - Primary Staff - Other Business Information Analyst Time In 01/17/22 09:27:00 01/17/22 09:27:00 01/17/22 09:27:00 Time Out 01/17/22 09:55:00 01/17/22 09:55:00 01/17/22 09:55:00 Procedure EGD AND COLONOSCOPY(.) EGD AND COLONOSCOPY(.) EGD AND COLONOSCOPY(.) Comments Dr. Pennington is supervising Last Modified By: Daniel RN, Riddhi Sanchez RN, Riddhi Burrell RN 01/17/22 09:55:43 01/17/22 09:55:43 01/17/22 09:55:43 Entry 4 Entry 5 Entry 6 Case Attendee Elana Sethi REIMBURSEMENT SPECIALIST, Jasmine COPE MD, Jeferson Alford Role Performed Staff - Other Scrub - Primary Surgeon - Primary Time In 01/17/22 09:27:00 01/17/22 09:27:00 01/17/22 09:27:00 Time Out 01/17/22 09:55:00 01/17/22 09:55:00 01/17/22 09:55:00 Procedure EGD AND COLONOSCOPY(.) EGD AND COLONOSCOPY(.) EGD AND COLONOSCOPY(.) Comments Last Modified By: Daniel RN, Riddhi Sanchez RN, Riddhi Burrell RN 01/17/22 09:55:43 01/17/22 09:55:43 01/17/22 09:55:43 Perioperative Protocols FT Pre-Care Text: Implements protective measures prior to operative or invasive procedure, confirms identity before the operative or invasive procedure, verifies operative procedure, surgical site, and laterality Entry 1 Procedure(s) EGD AND COLONOSCOPY(.) Patient Identity Birthday, ID Band Verified (select at Check, Patient least 2): Participation Consents / H and P Anesthesia Consent, Operative Site N/A Verified HandP, Surgery/Procedure Marking Verified Consent Surgical Site No Laterality Verified n/a Verified Procedure Verified Yes Correct Patient Yes Position Verified Availability Equipment, Medication Prep Dry n/a Verified (If Applicable) PreOp Antibiotic No Time Out Shelly Craig, Given Participants Riddhi Sanchez RN, Michelle Ray Sparks, Micala E, Ashley VILLA, ANATOLIY Delacruz MD, Maher Time Out Complete 01/17/22 09:30:00 Outcomes Met? Yes Last Modified By: Riddhi Sanchez RN 01/17/22 09:31:08 Post-Care Text: The patient is free from signs and symptoms of injury caused by extraneous objects Allergy Information FT Pre-Care Text: Verifies allergies Entry 1 Allergies Reviewed? Yes Allergies Reviewed Self/Patient With Outcomes Met? Yes Last Modified By: Riddhi Sanchez RN 01/17/22 07:27:38 Post-Care Text: The patient received appropriate medication(s) safely administered during the perioperative period Surgical Procedures FT Entry 1 Procedure Description Procedure EGD AND COLONOSCOPY Modifiers . Surgeon Description EGD with gastric polypectomy. Colonoscopy with random colon biopsies. Primary Procedure Yes Primary Surgeon Jeferson COPE MD Start 01/17/22 09:31:00 Stop 01/17/22 09:49:00 Anesthesia Type General Surgical Service Gastroenterology Wound Class 2 - Clean-Contaminated Last Modified By: Riddhi Sanchez RN 01/17/22 09:52:33 General Case Data FT Pre-Care Text: Classifies surgical wound, implements aseptic technique, initiates traffic control Entry 1 Case Information OR ENDO 1 FT Case Level Level 2 Wound Class 2 - Clean-Contaminated Specialty Gastroenterology ASA Class 2 Preop Diagnosis Diarrhea, fecal Postop Same As Preop No incontinence, weight loss, N/V, Hiastory of colon polyps, anemia RLQ pain Postop Diagnosis EGD-Gastric polyp. Outcomes Met? Yes Colonoscopy- internal hemorrhoids, diverticulosis. Last Modified By: Riddhi Sanchez RN 01/17/22 09:50:58 Post-Care Text: The patient is free from signs and symptoms of infection Skin Assessment (Pre Procedure) FT Pre-Care Text: Implements protective measures to prevent skin/ tissue injury due to thermal or mechanical sources Evaluates for signs and symptoms of physical injury to skin and tissue Entry 1 Skin Integrity Intact, [place], Warm, and Outcomes Met? Yes Dry Last Modified By: Riddhi Sanchez RN 01/17/22 07:29:31 Post-Care Text: The patient is free from signs and symptoms of injury caused b (more content not included)... [facility] O & P EXAM, ROUTINE, REFLEXo n 01-21-2022 Ova and parasites identified Concentration Nom (Stl) Comment Invalid Interpretation Code [facility] Comment on above: Result Comment: No o va, cysts, or parasites seen. One negative specimen does not rule out the possibility of a parasitic infection. Performed at: [address] [id number] PhD Yolanda Jiang Performed By: #### 1 [id number] ####[facility] [address] [place] [address] O & P Exam, Routineon 2021 Ova and parasites identified LM Nom (Unsp spec) Final report Invalid Interpretation Code [facility] Comment on above: Result Comment: Thes e results were obtained using wet preparation(s) and trichrome stained smear. This test does not include testing for Cryptosporidium parvum, Cyclospora, or Microsporidia. Performed at: [facility] [address] [place], [place] [id number] PhD Yolanda Jiang Performed By: #### 1 [id number] ####[facility] [address] [place] [address] Consenton 01-20-2022 Consent [id number]#1.00CD:127 Normal [facility] Discharge Instructionson Discharge Instructions [id number]#1.00CD:127 [facility] IntraOperative Documentson 1 IntraOperative Documents [id number]#1.00CD:127 Normal [facility] Coding Summary.on 01-19-2022 Coding Summary. CD:[id number] Gh0bWw +PGhlYWQ+GM9RVWEkR39vaMXif O2ES9pNWZ2BGYEPBOJSVM3PHZ2 vaAB0TGgnD9VmzqVq CavccQXrSU76QLj1PEK3zZikRZ diuZ6pcOElF6c6KsHiVA92yR30 KNqtOXTmPgA9XpHmwwuocVXb B6exXwEyfWXsXws+PHRhYmxlIH rgSIMcMAmhZCMuTdFpoIreXA9z Kq6eVUKiBFLdiEsfbXMxPxIj z5smYZLwHQhrOA9wuRpeI3BspM S2BNZif6e3Kz20vAH+PHRkIHN0 gIzhYYksa285JwRic5xmOZI6 tHJxXXleSDU6B22vd8Y7ZXMiXS HrDDX4dDI4dQ2geTsnzzyfP6Ih xSOjWyD1UEE8nLObnW7nkHfa goafzC2nOyc+O90YRY4WICOCXA 7XCze0G8IgXaydbAZ+AJ55SZSh ER23tBUwqGNct8xmrAi7JvYd OWWaKYF9aDsmYObjc0JkEBKgR1 2xrJYpn6C2DHUgxJkmuAMcToYs qYM9fG8oMWpoghhus9mhdojf Hzjlk7emkr49dI49L20aLAmpRS CvWHP0XKOgWXWboZeqvg9tgW5m Ii8+LTtig1lto3tdnDd1BbTi LCHhbfHkdKvwFXJ7a7RnCw44J8 BaqJgzl8IvZcf4kr69bXIhy4Y3 nHN0FAvfOFIbwI6cRPzbKuE2 OOSmUiHxjO14iLYbWJniVi2ltV ospSfrDX5sRWYnuuopIYQbrN6t RFLtbETnpXzeON8bDJTkogfq x015QrHlCSC9BATouDAcE6WrrL 3pAoZiEYLnLRTkQ6YywUNnOHtl Q420QZvcMbF5UXSrpzMrY7Ts NJBlrSxuAiX8f7C1Iw1Vf7Cipp ivFPE3DFhmEOLpXqO3YxOvKbO3 Z9EcQcr7UYDxpZmvGE0pU7Nf KCXdsujfkriciZK3IUCzWCCdlD 00eLIhCJymUc7bq5W5u162VYMz DLWrmK21Jh0atXfsDXHtkMKB gZ8chzjcy2mfmrwcGnGsXFGrSL p7TZx5JVJraFruRtFoGPM2IvD2 QGD1rZBkfB1cqOvegfzhwY6l Oyc+E55vxK9xURJ2MUA4fysmTT IulnEcLK26KY35M7ZuQtkbqRVt bGU+JERsatLmzAskAF9eJdDx b7kjq7CpNFjvO0NnBNXrKRadXe r9QVOlMRC4rGK7eV7aAYTdIRnu u8U3rIZ9Y6QrzeNriw6bj7ff OIRoFIxqN04ubXDow8C0HKToyU O7DIEyzVyxRjSxcP63Etb+PGNv eGwql4MgOyjtc4vas4chgNk8 FzWpFCAjpbPesKaoSQP0z0EaEk 97Q55fJIudKIMhNURtKOAfOZMm wFauwe9muF8hRr4+PGNvbCB3 wYF5wK4dELToCfN9MNmoM792Iw EvfKZcVnnjh1bep9sdsLz2EaTa PYNbsjVviMrzQTZ8n2FuIc95 I90zWSihGZVnYSYzCKSwFGJfiJ zllv7iwI8gZe7+ID6op4dvyy64 eM44oKM+EZIeZEM0lEwbPRxj ZWVahQ8hZHqpDgA3HHPcQpLyyG 72bJWzTIskKe2azUluqEjiIW4n UPDhchtvo151MfMco7obQZVm oWKlIXfyVGN3B01ws7N9OQPzDS HmWYX5jZI8gJ0ulVpegwutvGDi iZzvtrYbaGuyFRnxONiyO620 IHRvcDsnPlBhdGllbnQgTmFtZT c3T2ZdOwi6UGHeeZqoDH5hvZWq RDisOv7wmAdmnIfkIY0gVXKc xwkbx811CiBdw2vrKSAthLLcHC jgENL6D32xj8Q7WAEaLTCoFTW0 qTF1rH5onYrjiqoloTXkhFrg lyFgwRkkRExbCBncY475AUUzzJ boApKuywSwBAFccMY9AR01PP72 kRFqm0J8yDD0Y4YqXTFxjvmj ynwwqKT6RHSwZUQpqP47Hb1roZ yfJh4aPKFxVRZ3ROCzuTBtG6Za wD2zVgLeHCNoMPTkM4JfmYHc JRrgV772ROtaYkX9TMAtujZeS0 LiNUJmqZhjDzZ0y5G0Mk7DE7T5 RX75NV14eSMwp7I4vZJ3C1Wv VUCctfrglqbetWJ9RHIbOYEueX 45La5afByoOz1iFCAeWXA2RUSh xNDfU6EdzT5rHvYhFZPzCGLu U2AzuQRaSPtpN079IEgpSmO7QL YzkuBtA9TxZRWmcOjqHcK5o9F4 Ys2BMYo7UU54BQ78oFJgl1Z5 iRA4F1CmOFZlqledjzegeJP1PR EtGNBrmL32Xc9msFzvHy7mCFCm SQT6IFRxwTCjC2JlnB8zIpPn UPQvKBSzG5QsbVKzVGbuP792XG orLwW3DGYevhRwY3FnOQRcsDns CrA3g2N6Gk7TFKZcBJ51SFY5 sQR4IU88ZU08H3PePwtbvKRlyA U+PHRhYmxlIHdpZHRoPScxMDAl HuQgvVonTG8eKk4kKWVmTHLh cHqcmZJpNeQat9mnVREsQStuBH 5nkFmiA7FctCM2RLZei0f5Ln83 O68vC0ItdXD+SXWuwMH3cKF0 oE0sEoJeQhO1HEtuP042TaJewF YrIospa4ssh9hizXq9PnO3KYBz lsCwkIsiTHS5k8ElZu62Z85k IHdpZHRoPSIxNSUiIHZhbGlnbj 7hiI6yWk3+UCUeoBC8cBM6kF1y HvUdEfO4DLurF656IjRxvEEk Fcvxa3plz3bbdLi6NjHdKUDjbh CbiEnrVBE4y7AwLo69A4GwiSmv t0PmOrw8gq58rVSnf0H1oBA7 A1FnRUObsjmasQOzkTdbGV9mUQ HpbdoyBGZqjE6vSQWeB0z3LlWa JoB0VMauM6AnhhF2HHLqhHMp DOgbKCM2G15kg7L3JFYaUNNsQQ W0pAR7mH4tmRwnalcjyHHvuMqt aeOncPtiCZwkDBndY345AGYd kXgqJBLcwM2cZOVesYCdzWibBV 0wCEFpvkrrScRRF2ZHN4VaHFQJ YFBYL0fDIJ00NJ12sTMea2B2 oOV1O4KfSOIzkhkwokdevSI1BY OmQJQhdJ57eNTsACvhTy9zc4Y6 f650EFVaPYYjzB85Uj5ctMbn IHDbcALNaP7zpvdrw3kzyvgyVv WyOTNcLNp4CAl4HOBhkZnvZgGy DPA0LzG6YFV3jQHgeS8qjHjw pcmsuI5oOhg+XSPnRXQdBWs8Cg wvdGQ+DEKfSNY9yHcbOYpnMMGz zO7eWZKzE4l1EwSgCgD6QIbr A1MwAXRokkucOj18qD7pAgPtFo U4IIkkT4UchsJ2BGLdfVJxFBfn BML6H68fq5Q4QGGhYWLwGWN1 zHZ4xE6phCiltjbffQMxiOlmbu TmcVfaYTzjKZlpS028MBZivLce Nfg7IMlpNRVlDK57JB88dUOt m1V0hUI6W0HtSPZgsiwzyqnmrW N1UOTyXEAnmG02aPYkHJrrEi3l d6B0p785HMDjTCYzyI84Yx5u qHznXYTqcRISuL3hswclm4ivll feNdLaOZBlPHk2ARm8PYBclFlw JmYkTJI7OhQ5EAM0bQHqcO9v bXlcsrzwyY6jVrj+RmVtYWxlPC 83TW74dHBpz8M5wCK0Q1WoKRSw vuhupvrhdPC7LAIzRXMgiX96 aOIdOUfcJs2ue1M6c631EFMnHD CfqH99Qv8gaSysDVPacNNXmQ7o pfqlg6gryyvxWmFtYVPeNXn5 QIv6IKJtzUcxDqHlASL8RjW0EP M0fCCpdN3nrMskzezfkE4yIry+ VXHcHIIiz3Pqc7RdHM13LI06 N7ZkKkzwcPJqjOA+PHRhYmxlIH kvXDUvIVsbMFEpByPlwUtyKU0h Zr6iHCNeMCBdeKoajTMoGxDu f1rcCYRbBKdmQY1doOusC6IprP J5YQCae7m4If13N38bB1SusHT+ CYDenPD0dOC7oA3sJlKiBvQ2 ALcyJ445JaCcaTQkUvfmo6laj5 vidTa9HjLbKIWnkpDymLtrGRD1 x3JqBh24K18bNHswENFlAEHu NEOnAWFujQzavz8ntL1tFq1+PG WjrHT8iPC0wH7xOnYnDnY3YDgh U459ZeXbeWIgTgobQ94kG7Sw dXA+JYMvGhb8XFMbsLyjFU8iuR SoKJxkMi4sREB0OrKtQdVlFEkh L8WkXEVkuioytndrgNQ6LZRq XTSjtY46Pk5mrVsqGw3iRIUcRC S3WAGuzRImD3QriN2jJcUuNWLk KLEdK4MbiWRaGHpzG832CHfz MnN9OUYqyaRqD7JzGLOhhZzoKs J9a1V9Pe8TxJtscGOjUS4jDsLa KUn7O7PmHij4OFQrnImnIM1j sHGcWYxkUd8jgHnouXzdXE6xWE Jhnwjhf759GmVwz9fiWIEnmAAj ICfnJLG2F94br7D7PNDtSXVx WWF8sQK2cF8ovXnwtpgxgGFxsU vhorNruOjzITbkVQswG714WNAj hQtgWzDBPic0C1IlSvk1VRYt wDllQC3llRUrNAulLt8naHbupQ biGH0mFVGvejmvk081BfTdd6nm STMhmLAoBEtcWWY0H88zl6M3 KSBtVLNtXCV5mPH2iD0gtNryad ogbGVmdDsgdmVydGljYWwtYWxp N533YMEqpAihPr9EJcd2B5On Hjn7TXQtpJdfSD3zmOVqNAluQu 5mgBdexQhuKD3xEINxfzxwh373 RlPyo0mmWDFcjNFfWVdcDNS3 Z36gx2Y3ZGDeSRCtHBW4aHU3qB 1hbGlnbjogbGVmdDsgdmVydGlj CQzdBVqxP406WQYsoDrrThNz eWVyOjwvdGQ+AV44ny17Y8MxNz evDin5ERRlXED5wOL2pS1cHJFo MIoxt6F8bUU3D5OqwmMdjd4l b2xs (more content not included)... [facility] Consent for Treatmenton 01-04 Consent for Treatment [id number]#[id number]:127 Normal [facility] Endoscopic Procedure Report - Otheron 01-17-2022 Endoscopic Procedure Report - Other Patient: ADINA PERRY Age: 81 years Sex: Female : 1940 Associated Diagnoses: None Author: Jeferson COPE MD Pre-Procedure Procedure Date 01/17/2022 09:55:00 . Procedure Type: Esophagogastroduodenoscopy . Procedure provider Performed by Jeferson Cope MD. Current history and physical Documented on chart. Informed Consent After discussing the rationale, risks and benefits, and alternatives to this procedure, the patient provided signed consent for the procedure. Pre-procedure diagnosis: Diagnostic: Nausea, anemia . Medications Anticoagulant/antiplatelet None. Antibiotic prophylaxis None. ASA Classification: Class II. . Monitoring: See anesthesia record. . Procedure The procedure was performed in the hospital. See anesthesia record for sedation given during procedure. The patient was positioned starting in the left lateral decubitus position and with safety measures. Endoscope type used was an adult-size, introduced orally, advanced to the 2nd portion of the duodenum. No difficulty was encountered during the procedure. Views were excellent. The patient tolerated the procedure well. Findings 1. Normal esophagus, Z-line at 35 cm 3. Sessile polyp, 7 mm, in the gastric body, greater curvature, removed completely with cold snare 3. Normal duodenum Images Procedure images: Rec1_hd_video_2021__[id number] [id number].jpg Rec1_hd_video_2021__14T0 [id number].jpg Rec1_hd_video_2021__14T0 [id number].jpg Rec1_hd_video_2021__14T0 [id number].jpg Rec1_hd_video_2021__14T0 [id number].jpg Rec1_hd_video_2021__14T0 8_[id number].jpg Rec1_hd_video_2021__14T0 [id number].jpg . Post-Procedure Complications: none. Estimated blood loss: none. Specimens: sent to pathology. Devices/ implants: none left in place. Impression and Plan Sessile polyp, 7 mm, in the gastric body, greater curvature, removed completely with cold snare Recommendations: Follow-up in GI clinic in 2 weeks [facility] Comment on above: Result Comment: Elec tronically Signed By: ANATOLIY ERIC, Jeferson\.br\Date and Time Signed: 01/17/22 09:56 EDT Other Comment: Quyen vieira Attachment - attachment storage system not supported [id number] Can be viewed in source systemMissing Attachment - attachment storage system not supported [id number] Can be viewed in source systemMissing Attachment - attachment storage system not supported [id number] Can be viewed in source systemMissing Attachment - attachment storage system not supported [id number] Can be viewed in source systemMissing Attachment - attachment storage system not supported [id number] Can be viewed in source systemMissing Attachment - attachment storage system not supported [id number] Can be viewed in source systemMissing Attachment - attachment storage system not supported [id number] Can be viewed in source system Endoscopic Procedure Report - Other Patient: ADINA PERRY Age: 81 years Sex: Female : 1940 Associated Diagnoses: None Author: Jeferson COPE MD Pre-Procedure Procedure Date 01/17/2022 09:53:00 . Procedure Type: Esophagogastroduodenoscopy . Procedure provider Performed by Jeferson Cope MD. Current history and physical Documented on chart. Informed Consent After discussing the rationale, risks and benefits, and alternatives to this procedure, the patient provided signed consent for the procedure. Pre-procedure diagnosis: Diagnostic: Nausea and anemia. Medications Anticoagulant/antiplatelet No anticoagulation or antiplatelet. ASA Classification: Class II. . Monitoring: See anesthesia record. . Procedure The procedure was performed in the hospital. See anesthesia record for sedation given during procedure. The patient was positioned starting in the left lateral decubitus position and with safety measures. Endoscope type used was an adult-size, introduced orally, advanced to the 2nd portion of the duodenum. No difficulty was encountered during the procedure. Views were good. Gastric biopsies were taken of the fundus and of the antrum. The patient tolerated the procedure well. Findings 1. Normal esophagus, Z line at 40 cm 2. Normal gastric mucosa, random biopsies obtained to rule out H. pylori 3. Normal duodenum Post-Procedure Complications: none. Estimated blood loss: none. Specimens: sent to pathology. Devices/ implants: none left in place. Impression and Plan Normal EGD, random gastric biopsies obtained to rule out H. pylori Recommendations: 1. Awaiting pathology report. 2. GI clinic follow-up in 2 weeks [facility] Comment on above: Result Comment: in e rror Electronically Signed By: Jeferson COPE MD\.br\Date and Time Signed: 01/17/22 09:53 EDT Endoscopic Procedure Report - Other Patient: ADINA PERRY Age: 81 years Sex: Female : 1940 Associated Diagnoses: None Author: Jeferson COPE MD Pre-Procedure Procedure Date 01/17/2022 09:54:00 . Procedure Type: Colonoscopy with biopsy. Procedure provider Performed by Jeferson Cope MD. Current history and physical Documented on chart. Colorectal neoplasm risk assessment Average risk. Informed Consent After discussing the rationale, risks and benefits, and alternatives to this procedure, the patient provided signed consent for the procedure. Pre-procedure diagnosis: Diarrhea, clinically significant. Medications Anticoagulant/antiplatelet None. Antibiotic prophylaxis Not indicated. ASA Classification: Class II. . Procedure The procedure was performed in the hospital. Rectal exam was performed and was normal with no masses palpated. The patient was positioned in the left lateral decubitus position and a digital rectal exam was performed.. Endoscope type used was an adult-size. The endoscope was lubricated then introduced through the anus. The terminal ileum was photographed The ileocecal valve was photographed The appendiceal orifice was photographed The time to the cecum was 9 minutes The withdrawal time was 8 minutes No difficulties encountered during the procedure. The bowel preparation quality was adequate (see polyps greater than or equal to 6 millimeters). The patient tolerated the procedure well. Findings 1. Normal colonic mucosa, random biopsies obtained from ascending colon and rectum to rule out microscopic colitis 2. Severe diverticulosis mainly in the sigmoid and descending colon with sigmoid angulation 3. Moderate nonbleeding internal hemorrhoids Images Procedure images: Rec_hd_video__0 [id number].jpg Rec_hd_video_0 8_47_[id number].jpg Rec_hd_video_0 8_[id number].jpg . Post-Procedure Complications: none. Estimated blood loss: none. Specimens: sent to pathology. Devices/ implants: none left in place. Impression and Plan Impression: 1. Normal colonic mucosa, random biopsies obtained from ascending colon and rectum to rule out microscopic colitis 2. Severe diverticulosis mainly in the sigmoid and descending colon with sigmoid angulation 3. Moderate nonbleeding internal hemorrhoids Recommendations: Repeat colonoscopy:: None, Pending pathology results. Follow-up:: Clinic follow-up in 1-2 weeks. Diet:: Resume previous diet. Medication resumption:: Continue current medications. Return to activities:: After 24 hours. [facility] Comment on above: Result Comment: Elec tronically Signed By: Jeferson COPE MD\.br\Date and Time Signed: 01/17/22 09:55 EDT Other Comment: Quyen vieira Attachment - attachment storage system not supported [id number] Can be viewed in source systemMissing Attachment - attachment storage system not supported [id number] Can be viewed in source systemMissing Attachment - attachment storage system not supported [id number] Can be viewed in source system Inpatient Patient Summaryon 01-17-2022 Inpatient Patient Summary [address] [address] [facility] Clinical Discharge Instructions PERSON INFORMATION Name: ADINA PERRY PHYSICIANS Admitting Physician: Jeferson COPE MD Attending Physician: Jeferson COPE MD PCP: ADRIANA CRUZ DO Discharge Diagnosis: Anemia Comment: PATIENT EDUCATION INFORMATION Instructions: Upper Endoscopy, Adult, Care After; Colonoscopy, Care After Surgery Anatoliy (CUSTOM); Diverticulosis MAGR (CUSTOM) Medication Leaflets: Follow up: With: Address: When: Jeferson COPE [address] [place] [address]. [address] [place], [place] [phone] Business (1) Comments: office will call for follow up Type Location Start [address] 02/03/2022 10:20 AM 02/03/2022 10:40 AM Confirmed MEDICATION LIST Medications to Continue Taking That Have Changed Other Medications START: atorvastatin 40 Milligram By Mouth every day. START: gabapentin 300 Milligram By Mouth. START: isosorbide mononitrate 30 Milligram By Mouth. START: losartan 100 Milligram By Mouth every day. START: pantoprazole 40 Milligram By Mouth every day. Medications to Continue with No Changes Other Medications albuterol amlodipine aspirin (aspirin 81 mg Oral EC Tab) budesonide-formoterol (budesonide-formoterol 160 mcg-4.5 mcg/inh Inh Aer w/adapter) chlorthalidone cholecalciferol (Vitamin D3) sertraline spironolactone Comment: Normal [facility] Main OR PACU I Recordon 01-04 Main OR PACU I Record PACU Phase I Docum ent Type FT Summary Primary Physician: Jeferson COPE MD Finalized Date/Time: 01/17/22 10:57:57 Pt. Name: ADINA PERRY Umberto/Sex: 1940 Female Med Rec #: [id number] Physician: Jeferson COPE MD Financial #: [id number] Pt. Type: O Room/Bed: / Admit/Disch: 01/17/22 07:25:21 - Institution: Case Times PACU I FT Pre-Care Text: Identifies barriers to communication and implements measures to provide psychological support Develops individualized plan of care, and ensures continuity of care Maintains patient's dignity and privacy, and maintains patient confidentiality Identifies and reports philosophical, cultural, and spiritual beliefs and values Identifies individual values and wishes concerning care Implements aseptic technique, and administers prescribed antibiotic therapy and immunizing agents as ordered Evaluates postoperative tissue perfusion Implements thermoregulation measures, and monitors body temperature Evaluates postoperative respiratory status Evaluates postoperative cardiac status Evaluates postoperative neurological status Assesses pain control, collaborated in initiating patient-controlled analgesia and implements alternative methods of pain control Verifies allergies, administers prescribed medications and solutions, evaluates response to medications Entry 1 In PACU I 01/17/22 09:56:00 Discharge from PACU 01/17/22 10:26:00 I Outcomes Met? Yes Last Modified By: Jennifer Becerra RN 01/17/22 10:57:40 Post-Care Text: The patient demonstrates knowledge of the expected response to the operative or invasive procedure The patient's care is consistent with the individualized perioperative plan of care The patient's right to privacy is maintained The patient's value system, lifestyle, ethnicity, and culture are considered, respected, and incorporated into the perioperative plan of care The patient participates in decisions affecting his or her perioperative plan of care The patient is free from signs and symptoms of infection The patient has wound/tissue perfusion consistent with or improved from baseline levels established preoperatively The patient is at or returning to normothermia at the conclusion of the immediate postoperative period The patient's respiratory function is consistent with or improved from baseline levels established preoperatively The patient's cardiovascular status is consistent with or improved from baseline levels established preoperatively The patient's cardiovascular status is consistent with or improved from baseline levels established preoperatively The patient demonstrates and/or reports adequate pain control throughout the perioperative period The patient received appropriate medication(s), safely administered during the perioperative period Acuity Level PACU I FT Entry 1 Start Time 01/17/22 09:56:00 Stop Time 01/17/22 10:26:00 Acuity Level Acuity Level I Last Modified By: Jennifer Becerra RN 01/17/22 10:57:52 Finalized By: Jennifer Becerra RN Document Signatures Signed By: Jennifer Becerra RN 01/17/22 10:57 [facility] Main OR Preoperative Recordo n 01-17-2022 Main OR Preoperative Record Holding Area Document Type FT Summary Primary Physician: Jeferson COPE MD Finalized Date/Time: 01/17/22 07:57:32 Pt. Name: YOSELYNNIKKIJenelleADINA/Sex: 1940 Female Med Rec #: [id number] Physician: Jeferson COPE MD Financial #: [id number] Pt. Type: O Room/Bed: / Admit/Disch: 01/17/22 07:25:21 - Institution: Case Times Holding FT Pre-Care Text: Verifies consent for planned procedure, identifies individual values and wishes concerning care, includes family members in perioperative teaching Secures patient's records' belongings, and valuables, maintains patient's dignity and privacy, and maintains patient confidentiality Entry 1 In Holding 01/17/22 07:45:00 Outcomes Met? Yes Last Modified By: Regino Beckett RN 01/17/22 07:55:43 Post-Care Text: The patient participates in decisions affecting his or her perioperative plan of care The patient's right to privacy is maintained Surgery Checklist FT Entry 1 Patient Birthday, ID Band Procedure History and Physical, Identification: Check, Patient Verification: Surgical Consent, With Participation Patient NPO after Midnight: No Date/Time: 01/17/22 03:30:00 Results Reviewed yellow liquid bowel Personal Items: Cataract Lens Implant Comments: results Personal Items bilateral cataract lens Limitations: none Comment: implants Complaints of Pain: No Pain Comment: pt denies any pain at this time Operative Site n/a Marked By: n/a Marking: Location: n/a Availability Equipment Verified: Does Patient Smoke No Patient states Yes Comment - Adult Romelia postop adult Supervision supervision available Case Cancelled in No Holding Area see comments below for reason Last Modified By: Regino Beckett RN 01/17/22 07:57:30 General Comments: pt finished bowel prep at 0330, per patient nothing to eat or drink since finished prep MSRN Finalized By: Regino Beckett RN Document Signatures Signed By: Regino Beckett RN 01/17/22 07:57 [facility] Monitor Recordon 01-17-2022 Monitor Record [id number]#[id number]:127 [facility] Monitor Record [id number]#1.00CD:127 [facility] Outpatient Surgery Discharge Instructionon 01-17-2022 Outpatient Surgery Discharge Instruction [place] [id number] Patient Discharge Instructions PERSON INFORMATION Name: ADINA PERRY Date of : 1940 Current Date: 01/17/2022 10:08:03 PHYSICIANS Admitting Physician: ANATOLIY ERIC Govea Discharge Diagnosis: Anemia ADINA PERRY has been given the following list of follow-up instructions, prescriptions, and patient education materials: PATIENT FOLLOW-UP INFORMATION Diet: Regular Discharge Activity: Resume normal activities in 24 hours Discharge Restrictions: No driving for 24 hrs, Do not operate machinery or tools, Do not make important decisions for 24 hours IF UNABLE TO CONTACT YOUR PHYSICIAN AND YOU FEEL IT IS AN EMERGENCY, GO TO THE NEAREST EMERGENCY ROOM OR CALL 911 I, ADINA PERRY, have received the attached patient education materials/instructions and have verbalized understanding: May we do a follow up call? Yes No I was present when discharge instructions were given ____ Patient Signature _ Date Clinican/Nurse Signature Date Follow up: With: Address: When: [facility] [address] [place] [id number] Business (1) Comments: office will call for follow up Type Location Start [address] MARÍA Jarquin 02/03/2022 10:20 AM 02/03/2022 10:40 AM Confirmed Pharmacy Information: [facility] You may receive a survey from [employer] [facility] asking you to rate your care experience. Your feedback is important and will help us understand what we do well and how we can improve the quality of care we provide to you, your loved ones and our community. It?s an honor to serve you. Thank you for choosing [facility] HERE ARE THE MEDICATION CHANGES THAT OCCURRED DURING YOUR HOSPITAL STAY Medications to Continue Taking That Have Changed Other Medications START: atorvastatin 40 Milligram By Mouth every day. START: gabapentin 300 Milligram By Mouth. START: isosorbide mononitrate 30 Milligram By Mouth. START: losartan 100 Milligram By Mouth every day. START: pantoprazole 40 Milligram By Mouth every day. Medications to Continue with No Changes Other Medications albuterol amlodipine aspirin (aspirin 81 mg Oral EC Tab) budesonide-formoterol (budesonide-formoterol 160 mcg-4.5 mcg/inh Inh Aer w/adapter) chlorthalidone cholecalciferol (Vitamin D3) sertraline spironolactone PATIENT EDUCATION INFORMATION Instructions: Upper Endoscopy, Adult, Care After This sheet gives you information about how to care for yourself after your procedure. Your health care provider may also give you more specific instructions. If you have problems or questions, contact your health care provider. What can I expect after the procedure? After the procedure, it is common to have: ? A sore throat. ? Mild stomach pain or discomfort. ? Bloating. ? Nausea. Follow these instructions at home: ? Follow instructions from your health care provider about what to eat or drink after your procedure. ? Return to your normal activities as told by your health care provider. Ask your health care provider what activities are safe for you. ? Take xbne-adm-nbtjpdm and prescription medicines only as told by your health care provider. ? Do not drive for 24 hours if you were given a sedative during your procedure. ? Keep all follow-up visits as told by your health care provider. This is important. Contact a health care provider if you have: ? A sore throat that lasts longer than one day. ? Trouble swallowing. Get help right away if: ? You vomit blood or your vomit looks like coffee grounds. ? You have: ? A fever. ? Bloody, black, or tarry stools. ? A severe sore throat or you cannot swallow. ? Difficulty breathing. ? Severe pain in your chest or abdomen. Summary ? After the procedure, it is common to have a sore throat, mild stomach discomfort, bloating, and nausea. ? Do not drive for 24 hours if you were given a sedative during the procedure. ? Follow instructions from your health care provider about what to eat or drink after your procedure. ? Return to your normal activities as told by your health care provider. This information is not intended to replace advice given to you by your health care provider. Make sure you discuss any questions you have with your health care provider. Document Released: 09/21/2012 Document Revised: 09/14/2018 Document Reviewed: 08/23/2018 [employer] Patient Education ? 2020 [employer]. Colonoscopy Care After Surgery Please read the ins (more content not included)... Normal [facility] Patient Education - Texton 1 Patient Education - Text Colonoscopy Care After Surgery Please read the instructions outlined below and refer to this sheet in the next few weeks. These discharge instructions provide you with general information on caring for yourself after you leave the hospital. Your doctor may also give you specific instructions. While your treatment has been planned according to the most current medical practices available, unavoidable complications occasionally occur. If you have any problems or questions after discharge, please call your doctor. ACTIVITY You may resume your regular activity, but move at a slower pace for the next 24 hours. Take frequent rest periods for the next 24 hours. Walking will help get rid of the air and reduce the bloated feeling in your abdomen (belly). No driving for 24 hours (because of the anesthesia (medicine) used during the test). You may shower. Do not sign any important legal documents or operate any machinery for 24 hours (because of the anesthesia used during the test). NUTRITION Drink plenty of fluids. You may resume your normal diet as instructed by your doctor. Begin with a light meal and progress to your normal diet. Heavy or fried foods are harder to digest and may make you feel nauseated (sick to your stomach). Avoid alcoholic beverages for 24 hours or as instructed. MEDICATIONS You may resume your normal medications unless your doctor tells you otherwise. WHAT YOU CAN EXPECT TODAY Some feelings of bloating in the abdomen. Passage of more gas than usual. Spotting of blood in your stool or on the toilet paper. FOLLOW-UP Your doctor will discuss the results of your test with you. SEEK IMMEDIATE MEDICAL ATTENTION IF: There is more than a spotting of blood in your stool. There is abdominal distention (your abdomen is swollen). There is vomiting. You have a temperature over 101.5 F. There is abdominal pain or discomfort that is severe or gets worse throughout the day. Diverticulosis Many people have small pouches in their colon called diverticulum. The diverticulum bulge outward through weak spots in the colon. You could have one or more of these pouches in the colon. The condition of having these pouches in the colon is called diverticulosis or diverticular disease. Diverticulosis is usually diagnosed by tests to evaluate something else. For example, you may have had a colonoscopy to screen for colon cancer when the diverticulosis was found. Most people with diverticulosis do not have any discomfort or problems. If symptoms develop, they may include mild cramps, bloating, and constipation. A complication of this condition is called diverticulitis. This is when the diverticulum become inflamed and infected. How to treat diverticulosis: Increasing the amount of fiber in the diet may reduce symptoms of diverticulosis and prevent complications such as diverticulitis (infected diverticuli). Fiber keeps stool soft and lowers pressure inside the colon so that bowel contents can move through easily. You should eat 20 to 35 grams of fiber each day. The table below shows the amount of fiber in some foods that you can easily add to your diet. Adding fiber slowly may decrease the bloating and fullness sometimes felt with an immediate high fiber diet. The doctor may also recommend taking a fiber product such as Citrucel or Metamucil once a day. In the past people with diverticulosis were to avoid nuts, corn, and seeds. This has not been found to be true. If you find that certain foods create cramping or bloating, avoid that food. Foods high in fiber include: Fresh fruits, fresh vegetables, legumes (beans), whole wheat bread, bran muffins or cereal, and nuts. See the table below for examples of high fiber foods. Remember, your goal is 20-35 grams per day. Amount of fiber in different foods Food Serving Grams of fiber Fruits Apple (with skin) 1 medium apple 4.4 Banana 1 medium banana 3.1 Oranges 1 orange 3.1 Prunes 1 cup, pitted 12.4 Juices Apple, unsweetened, w/added ascorbic acid 1 cup 0.5 Grapefruit, white, canned, sweetened 1 cup 0.2 Grape, unsweetened, w/added ascorbic acid 1 cup 0.5 [place] 1 cup 0.7 Vegetables Cooked Green beans 1 cup 4.0 Carrots 1/2 cup sliced 2.3 Peas 1 cup 8.8 Potato (baked, with skin) 1 medium potato 3.8 Raw [place] (with peel) 1 cucumber 1.5 Lettuce 1 cup shredded 0.5 Tomato 1 medium tomato 1.5 Spinach 1 cup 0.7 Legumes Baked beans, canned, no salt added 1 cup 13.9 Kidney beans, canned 1 cup 13.6 [place] beans, canned 1 cup 11.6 Lentils, boiled 1 cup 15.6 Breads, pastas, flours Bran muffins 1 medium muffin 5.2 Oatmeal, cooked 1 cup 4.0 White bread 1 slice 0.6 Whole-wheat bread 1 slice 1.9 Pasta and rice, cooked Macaroni 1 cup 2.5 Rice, brown 1 cup 3.5 Rice, white 1 cup 0.6 Spaghetti (regular) 1 cup 2.5 Nuts Almonds 1/2 cup 8.7 Peanuts 1/2 cup 7.9 Chart from UpToDate 2013. SEEK IMMEDIATE MEDIC (more content not included)... [facility] Progress Note-Physicianon Progress Note-Physician Patient: ADINA PERRY Age: 81 years Sex: Female : 1940 Associated Diagnoses: None Author: Eliecer Pennington DO Postoperative Information Post Operative Note: Post Anesthesia Care Unit. Physical Examination Intake and Output HYDRATION ADEQUATE Vital Signs (last 24 hrs) Last Charted Resp Rate 14 br/min (JAN 17 10:25) SBP H 158mmHg (JAN 17 10:25) DBP 81 mmHg (JAN 17 10:25) SpO2 98 % (JAN 17 10:25) Weight 102.26 kg (JAN 17 07:50) BMI 45.45 (JAN 17 07:50) Pain assessment: Pain Assessment 01/17/2022 10:25 EDT Pain Symptoms Self Report No, able to self report 01/17/2022 10:10 EDT Pain Symptoms Self Report No, able to self report . General: No acute distress. HENT: dentition at preop baseline.. Respiratory: Respirations are non-labored. Cardiovascular: stable hemodynamics. Neurologic: interactive. Assessment Anesthetic outcome No anesthetic complications noted. Adequate pain relief. adequate hydration. PONV controlled. Plan Transfer/ Discharge: Patient can be discharged from PACU when criteria met. Condition good. [facility] Comment on above: Result Comment: Elec tronically Signed By: Eliecer Pennington DO\.br\Date and Time Signed: 01/17/22 16:29 EDT Progress Note-Physician Patient: ADINA PERRY Age: 81 years Sex: Female : 1940 Associated Diagnoses: None Author: Eliecer Pennington DO Preoperative Information Anesthesia history: Patient History: Pt./ family denies any personal or family hx of problems/difficulties with anesthesia.. Re-eval prior to induction: Inital eval reviewed: No significant interval change, NPO guidelines met. Review of Systems Constitutional: See nursing pain assessment.. Cardiovascular: Cardiac risk assessment performed. Pt. denies any significant change in their cv hx.. Respiratory: Pt. denies any signicant change in their respiratory status.. Neurologic: Pt. denies any acute neurological changes.. Health Status Allergies: Allergic Reactions (Selected) Moderate Percocet- Nausea., Allergies (1) Active Reaction Percocet Nausea Current medications: (Selected) Inpatient Medications Ordered Sodium Chloride 0.9% IV Tara 1000 mL 1,000 mL: 1,000 mL, IV, 20 mL/hr, Routine, Start date 01/17/22 6:40:00 EDT, 50 hour(s), Total volume (mL): 1,000, 48.3 kg, 1.42, m2 Documented Medications Documented Vitamin D3: Refills(s) 0, Prophylaxis albuterol: Refills(s) 0, Asthma amlodipine: Refills(s) 0, High blood pressure aspirin 81 mg Oral EC Tab: Refills(s) 0, Prophylaxis atorvastatin: 40 mg, Oral, Daily, Refills(s) 0, High cholesterol budesonide-formoterol 160 mcg-4.5 mcg/inh Inh Aer w/adapter: Refill(s) 0, Asthma chlorthalidone: Refills(s) 0, diuretic/water pill gabapentin: 300 mg, Oral, Refills(s) 0, Neuropathy isosorbide mononitrate: 30 mg, Oral, Refills(s) 0, High blood pressure losartan: 100 mg, Oral, Daily, Refills(s) 0, High blood pressure pantoprazole: 40 mg, Oral, Daily, Refills(s) 0, Control of stomach acid sertraline: Refills(s) 0, Depression spironolactone: Refills(s) 0, diuretic/water pill, Medications (1) Active Scheduled: (0) Continuous: (1) Sodium Chloride 0.9% 1,000 mL 1,000 mL, IV, 20 mL/hr PRN: (0) Problem list: All Problems Anemia / SNOMED CT 351698755 / Confirmed Watery diarrhea / SNOMED CT 774491363 / Confirmed History of colon polyps / SNOMED CT 0015337979 / Confirmed Fecal incontinence / SNOMED CT 861555632 / Confirmed Nausea and vomiting / SNOMED CT 52044113 / Confirmed RLQ abdominal pain / SNOMED CT 473156947 / Confirmed Weight loss / SNOMED CT 577016352 / Confirmed, Active Problems (7) Anemia Fecal incontinence History of colon polyps Nausea and vomiting RLQ abdominal pain Watery diarrhea Weight loss Histories Past Medical History: No active or resolved past medical history items have been selected or recorded. Family History: Heart disease Father Primary malignant neoplasm of lung Sister Diabetes mellitus type 2 Father Brother Procedure history: EGD - Esophagogastroduodenoscopy ([id number]) on 07/06/2020 at 80 Years. Comments: 01/09/2022 16:03 EDT - [facility] Ho Dr Colonoscopy ([id number]). Comments: 01/09/2022 16:02 LIDIAT - Rajwinder Ho 2010 Social History Social & Psychosocial Habits Tobacco 01/10/2022 Tobacco Use: Never (less than 100 in l Smokeless tobacco use: Never . Physical Examination Vital Signs 01/17/2022 7:50 EDT Temperature Temporal Artery 36.7 DegC Heart Rate Monitored 61 bpm Respiratory Rate Monitored 17 br/min Systolic Blood Pressure 168 mmHg HI Diastolic Blood Pressure 72 mmHg Blood Pressure Location Left arm SpO2 97 % Vital Signs (last 24 hrs) Last Charted Resp Rate 17 br/min (JAN 17 07:50) SBP H 168mmHg (JAN 17 07:50) DBP 72 mmHg (JAN 17 07:50) SpO2 97 % (JAN 17 07:50) Weight 102.26 kg (JAN 17 07:50) BMI 45.45 (JAN 17:50) Measurements from flowsheet : Measurements 01/17/2022 7:50 EDT Height/Length Measured 150 cm Height/Length Dosing 150.0 cm Weight Dosing 102.3 kg BSA Measured 2.06 m2 Body Mass Index Measured 45.45 kg/m2 Weight Measured 102.26 kg Airway: Normal oral/pharyngeal anatomy.. Respiratory: Adequate air exchange.. Cardiovascular: Adequate perfusion and function. Neurologic: Alert. Review / Management Results review: No qualifying data available . Plan [place] [employer] Anesthesi[employer] (ASA) physical status classification: Class II. Anesthetic Preoperative Plan Anesthesia: Monitored anesthesia care and general anesthesia possible. Anesthetic plan, risks, benefits, and alternatives discussed with the patient and/or family. Pt. and/or family present and agree to proceed as planned.. Risks discussed including heart, lung, nerve damage. Risks of bleeding, dental injury, hospitalization, and general injury discussed. . [facility] Comment on above: Result Comment: Elec tronically Signed By: Eliecer Pennington DO\.br\Date and Time Signed: 01/17/22 08:36 EDT Coding Summary.on 01-16-2022 Coding Summary. CD:[id number] Gh0bWw +PGhlYWQ+JI0BAODcZ16qrYPmj X3EC9gOJO9SYNDWPSSQIT3UFW7 bdQV7QBcwM5KxtaUg PkxmjVFaLF60IIk0CJA0vYvnCF hzsG7zqTEyJ5b1XgZtFD38nQ45 KJfgUJWlUsQ9QpLbqouekUCl U6pmZiJjxCZkAml+PHRhYmxlIH vyLZNiNLvfPSQhNfBthLroAK5p Yv3tGOFgVNNvvUhrsYQiGxXp p3cfEYTkUYrsGL5ilFtuO0YzgL G9QHYuz0c5Nw93sWP+PHRkIHN0 yHjkBOhbo547HuMqu8ghOMN9 fOMpZDncIPK8V43zx9D5CTPtKA SoVIG6xLP9uG3mrZtupmzdB1Yv cSJaPnG5BVX2wZAdgE7jbJme btrkcO2mUnk+Z85SPO2RADCBCB 7AKlb8B8DbVjsteMC+NV39PWBe FB15hTEgxLOsc1joqRb8NcYo GBNjGEG9kMpvRZmlb5IiYUHbC1 3ohTUyy9D2JKBaeZmgbXQcMwXy fUS0mV1qISwlrrtkk1onlwlw Awuqy8jiwv71rF37M24aNGdeRK HfRRJ9ESZjMBRmmTbuxw5saD7y Ii8+GChqv2tgj1sbuKu8FjPq VAQdlaFxfQqeSOQ5c5SiNr05Q2 JaoRdiv9DlWkk6mo61qLNdv4I2 kPS8DFmzZWIbiO8nNJmdCfJ4 DYQlKcQxeU35qFGbWHagRy6vwD dumJekDC6xHISpnpvfSNMagV1u WSYgmDJbsCyqRL9xNFXxcemi u327AqOrKDF0MJGmxLCjK1PbqY 6yXoHvCCLcULXtI1KahZDmVEmh Q679SRgqBlY6EMTsytRcY0Ds ONLpiFffZhQ1u7U0Dg3Mb9Qwab ktBSG0ZBdqDKCsBjKnGwPyIzI3 F8AmVkt7MWAnkDmqVY5yT1Yr SXPxchmldddhuKZ7ZBMqLQLwrL 99jRFwLQgoOx8si2E9v721BGYl EIYjuD43Bd2asFcuIVTyeHTX gX6isxwrk6gpqifzEfJvMAUnAQ h2QRk8ZUGweMmzKhDsLSQ6LoG8 SQA7kRUhbI4nmVrxkuezxN2a Oyc+P97poR7oNGT2SSP7xyftFR JcgwQmWQ83FU25Q8PfHpgrrIWj bGU+MOVwlzLyyHwyKY3dUjMc k3tmc1VwXDxmX8GbSBXsEJpeHz k1CDMtUJX5xCH4rP4uEPGgLVlf e2T5kYO6D8XqjxBjxd4qv4pr DFCgPMpyG34xzOXnf0L5WGSsaX N1JJUxvCgrKfPxkY61Nrc+PGNv nHqbo2PoLivum3rov1sqkUj2 DqUmQRTworEpwJfbDPX3m3ReBi 70A11mUSuoGXCeELKvIRAzUNMl wQucku8tkH9cNc3+PGNvbCB3 fCK9tN5mWZQeEzI3MObiS390Fe VulTRbKwnou0qqw0xtlUw9VgYx BHYkmnOtfZxuYZN7d6WvPd91 C46hPDnmALFlYOWvESWmVELkjP vgop3ctX6ySb9+EK3ek8zfwr98 qS57dHW+FGOrZFX9sFqkSIyq CFAaaN1rFMcpIcQ3CKLjEcHfvI 56cRBfTTkuIq5ayHppgNlxDR0g WWCphnvsp244EdTwu3riAWKk sBCzGBjyWZG7O96iy8X8PXJzOY KiFPK2tIC9eE1doKvvoxpjsJNb lParkcHweQbbDTxrOZzhX893 IHRvcDsnPlBhdGllbnQgTmFtZT q4E5BuUet5PDYkyLmsXW8nwFEe CTfqOv9dqLqlqMztFN3uRUSi xnixv327NpTdl6jkSYVgqUZbXK zmFJM1L18yf2X9QMCbRYEfUVO6 sVO6jZ1wvFnzeaigbWJpnZpl dwBbcMftRHgmGHtaC199PTEsaT mgOsVnnvRhBBDdcSI0EL70CH75 gXSen9U2yIP7J2CkJZBnrhqy flkboBP8FRQxLRWjiD55Kz4nnT kmNx3rUIFyXZD5NCQhyEHcN3Ks cV4eQdJrHJLvHKYaY7BmjVYn MEctN986IJliWnA3ANAeriSyA2 PlBIWobKltUwA9i5X5Jr7OH8N1 UN38YT84yGUts1B3gGH3G9Qg XCVaqmtejrmtjNF1HUJmZIRohJ 15Mt8poNklSl5eYGLzRUI0ZRVt vGJgS5ParZ4dRkRtAWBgLGJu Z4KqkAAjLCioA511NBpjYiW9PZ ZqjrJbR1DdXVAjfJgtZgL8i7L6 Bd7YAXd6MV38SZ95hDYjh0H0 fSE4L2AaQPMqcnqvtxmhbFI3VZ FlZOSaqX97Cv2gtPunDw1uUATa XLQ1ISXsbXIuU8BatN0eVdBa RUCeJBEpF0NtoLYpKAeaF439CL clChZ9UFHbkrUjM0BhBQCuxFtj XtP6f9S2Fr9XZOMnRA32DWJ4 tCT2YN54DH04U4FnDensvRUsnO U+PHRhYmxlIHdpZHRoPScxMDAl WuElzWtkSI1eKl8lBWFbOOCp aJkahYRnCzSqm8wiVZJlYKhnIH 7xvOjuR7KecIX8VYVhh7x0Vi23 I87fB8OliPE+XPYuzON5nIY6 bV5iTjHwMmX7OFdfH276PlNlhL QlAqghn7dne4lwzIw9SiS4NLQs tkAjpOvpVHN4q7FcWh21N41y IHdpZHRoPSIxNSUiIHZhbGlnbj 2baI1kFl4+PHKrkPP6bYZ7iY2y VuMxNmC8LSneJ624KxWgzHJc Uesvu6vpd2dgoQo0NeOgYOPqgm VmeGpxFJG7b0NgIl65Q6AmbHvh s5PuQhf1vk43iMBzh5X4uJV5 S3WhRZGhqqpboJXdyAhxMJ5lCZ XyplkoHJFlgS5kMBXaD8s9MyFf FdS7EKigQ2ObnhE1QFKhdNUa KViiLKZ7J52by8K4BIOnLBNsMA D3rTR8jE8oaWowrcgiuHXgkLfc rkLqeXtnZNftTKbrZ363HCSj eHzpSOMapR9fHCYqbZQieWisKK 5hBXRszkutHhGRN2QRS1IlOPWE ZFLTL9uUGY19KQ27xZQpf9G8 lLB4F7KiQBAwquklzroxpNS5GM TbVEBqcZ87eEApBGedBj7sk3K3 h594DSZqQSNheW19Lq2ozHrs OWTyxNKWdL6uxprxr7eqepeiUa UzCLJtJVg8PSw3PTKytKldUmGw AJU9ByK9KNL3vPEggF8giLgs ntdgkM9nXhj+ZNRgQIQlATa6Ay wvdGQ+YEXyPND7zFryYCelQDRc hS6tMCPuA8p6OkYhHqK3VNsw V5NkNHNfieyoTu67lN4lDcEvBb V6WAjqH0EdnzB6NBLypBJjJGpk CXS7G86ik3U9KZAdCFHsEXR4 uYJ3jV0aoIlxlirpvITmeZozzp OpaCjzPLgfSOhaI150RQIddDfi Wrf9LYwkWMShLA52RI48tKEq f5Z3oSN1G4FdXWZnjsgjzpzmoG K0IIXcCBHqjD92bILqLRcaDr9u b1E3p637MTTaCMAkyN07Mk9b sWfaWWYgyNMSyB5dxnkzs6edvz xiZmWgOTFfNBi4ZUj6MUMixQep KvUyJQW7PzP5VOA5tUOubQ7n pPloyxhanE7lFdz+RmVtYWxlPC 29ZK02eCRtr2V3kBN2V4DqOCMg hxguiqvpyXS8ULOaVPVcgK84 dJWjSMavIr5bc2X8j356HHKrIV NtvY76Kt2cuJmhIZSewDPSkC0h capwp9siklweFiPnNQBcNFe2 NCv3WIUbhUbuTmOaMNP3SpP6WM X6rVGyaP4ouCxlqytzxY9kStx+ G2J1tYX4kUKxbDaspHD+PC90 ee13R5CpMqhaKye8CQAiCOI0iM Q7pR6zDKKqGPlzs6H3wMP8R9Ph ctOvlr6mg3bqMHMwWByuK13l fKOht6M4CVSgaCV5TMFgdLpkWb IcgT49Tni+IPJtkDrtw3EyShci z0ssl3xpyVz7LeLsIFRmyfFv qYzcSVH5w8VbIv72B51rSHwnTN UqRAPcZFFwDSMtaXvrrg4frH7q Ii8+GSUlqEE1vVM4lI2xDcHn VbL4ASgiF038DrKdyNOxIxswc0 vrw0exuKb7PdOeIHHyyaEpsIcq JLM9f5WmTu87K8MflLikk1Jk Ciw7fr36cSQsy2X7zRE1M8EiCV UlnsctkFUgbAddHT6wPUAjjjfi QWIfcE7cMKErG5m4XwWgOfB9 SMyaA1AfygE0YKTbjSFbWUXhfD PDeM5vzkrmy4hsqehqIoPbYCAr VXy3XHh5ZFPqpZzeClSdEPE8 DyB2URJ5uOLojQ8exZpjwnfapA 9wOyc+CAw6g4geeVFxJT3qxML4 GP70GY10bTAsm7P8tJD6Q3Pu DXTfkabcjcvmpOP9FZWnUWDiiE 19Tx1pvSdrSl4aMMPuMAH1CIAq gHPfG5IjgC8hHqVbKUGgEOOq A6ZgfRLtNVhjV114QFrvHcV1BQ IuyqSyZ2ZdEZKluVvcVyE9l0U9 Gg7SCR39JL55WD37iRMdo7I7 wQG2U8QxFAXiwkuzuuwusGT6VJ JoPZTavY45Cn5gpGjxCt4uEQRx DUF7JOEyfKBvI8PfxI0nTvJj UAGzOICmI3GfwWUlZQedF779HF ikMjY6QGRpmzXaW9TbHRDifDks JeJ8l7I9Gq6JBs64YV90SI40 yKMfq5U8vCG2B1UiSDEncpnagm sdoOY2KEAwEYYjvK20Qh8jwTku Cl3lDGFvHOJ3PRMwtNTvO7Ka qB6gTdQqTRDwSRIvV6ZtnVAdAL lbL746SAwfVzJ4HZDpdmZuV1Ki EFCoxEytXoQ8y6V2Uh6TLEwl hxr0R3HkVmbwbIK+KA26UHNnZM 68sOGscCLao3wqwHb6NeJaTZPt DVB0gEeuKGoph0MoSZPuO92f bGFw (more content not included)... Normal [facility] C. diff by PCRon 01-14-2022 Clostridium difficile by PCR see comment Invalid Interpretation Code [facility] Comment on above: Result Comment: Unab le to perform test due to consistency of stool.? C. difficile testing will be performed only on diarrheal (unformed) stool, unless ileus due to C. difficile is suspected. Reference: Clinical Practice Guidelines for Clostridium difficile Infection in Adults, Infection and Hospital Epidemiology August 2009, Vol. 31, No. 5. This test result should be correlated with clinical presentations and medical history by a healthcare provider to determine its clinical significance. Performed By: #### 1 [id number], [id number] ####[facility] [id number] [place] [address] Consent for Procedure/Surger yon 01-14-2022 Consent for Procedure/Surgery [id number] [facility] Enteric Panel by PCRon 01-14 C. coli+jejuni+upsaliens is DNA FERN+non-probe Ql (Stl) Not detected Normal [facility] Comment on above: Result Comment: Test ing was performed utilizing reverse icing and glaze maker (RT), polymerase chain reaction (PCR), and array hybridization to detect specific gastrointestinal microbial nucleic acid gene sequences associated with the following pathogenic bacteria and viruses:Campylobacter Group (composed of C. coli, C. jejuni, and C. tresa), Salmonella species, Shigella species (including S. dysenteriae, S. boydii, S. sonnei and S. flexneri), Vibrio Group (composed of V. cholera and V. parahaemolyticus), Yersinia enterocolitica, Norovirus GI/GII, and Rotavirus A. In addition, EPdetects Shiga toxin 1 gene and Shiga toxin 2 gene virulence markers. Shiga toxin producing E. coli (STEC) typically harbor one or both genes that encode for Shiga toxins 1 and 2. Campylobacter group, Salmonella species, Shigella species, Vibrio group, Rotavirus A, Shiga Toxin 1, Shiga Toxin 2, Norovirus GI/GII, and Yersinia enterocolitica were tested by Verigene nulcleic acid test. Performed By: #### 1 [id number] ####[facility] [id number] [place] [address] E. coli stx1+stx2 genes FERN+non-probe Ql (Stl) Negative [facility] Comment on above: Performed By: #### 1 [id number], [id number], [id number], [id number] ####[facility] [address] [place] [address] Enteric Panel by PCR Negative Normal [facility] Enteric Panel Intrl QC Pass Normal [facility] Comment on above: Result Comment: Test ing was performed utilizing reverse icing and glaze maker (RT), polymerase chain reaction (PCR), and array hybridization to detect specific gastrointestinal microbial nucleic acid gene sequences associated with the following pathogenic bacteria and viruses:Campylobacter Group (composed of C. coli, C. jejuni, and C. tresa), Salmonella species, Shigella species (including S. dysenteriae, S. boydii, S. sonnei and S. flexneri), Vibrio Group (composed of V. cholera and V. parahaemolyticus), Yersinia enterocolitica, Norovirus GI/GII, and Rotavirus A. In addition, EPdetects Shiga toxin 1 gene and Shiga toxin 2 gene virulence markers. Shiga toxin producing E. coli (STEC) typically harbor one or both genes that encode for Shiga toxins 1 and 2. Performed By: #### 1 [id number], [id number], [id number], [id number], [id number], [id number] ####[id number] [place] [address] Norovirus genogroup I+II RNA FERN+non-probe Ql (Stl) Not detected Normal [facility] Comment on above: Performed By: #### 1 [id number], [id number], [id number], [id number], [id number], [id number] ####[facility] [address] [place] [address] Rotavirus A RNA FERN+non-probe Ql (Stl) Not detected Normal [facility] Comment on above: Performed By: #### 1 [id number], [id number], 84783769, 37837592, 94264466, 35407518 ####[facility] [address] [place] [address] S. enterica+bongori DNA FERN+non-probe Ql (Stl) Not detected Normal [facility] Comment on above: Result Comment: This test result should be correlated with clinical presentations and medical history by a healthcare provider to determine its clinical significance. Performed By: #### 1 [id number], [id number], 48908839, 26316491, 41513982, [id number] ####[facility] [address] [place] [address] Shigella species+EIEC invasion plasmid antigen H ipaH gene FERN+non-probe Ql (Stl) Not detected Normal [facility] Comment on above: Performed By: #### 1 [id number], [id number], 61133699, 12312849, 66746418, 31813495 ####[address] [place] [address] V. cholerae+parahaemolyt icus+vulnificus DNA FERN+non-probe Ql (Stl) Not detected Normal [facility] Comment on above: Performed By: #### 1 [id number], 263446100, 54631730, 29939294, 10711364, [id number] ####[facility] [address] [place] [address] Y. enterocolitica DNA FERN+non-probe Ql (Stl) Not detected Normal [facility] Comment on above: Performed By: #### 1 [id number], [id number], 44491212, 11134495, 38588270, 82951066 ####[facility] [address] [place] [address] Fecal WBC Lactoferrinon 01-04 Fecal WBC Lactoferrin Negative Normal Negative [facility] Comment on above: Result Comment: The semi-quantitative detection of elevated levels of fecal lactoferrin is a marker for fecal leukocytes and an indication of intestinal inflammation. Performed By: #### 1 [id number], [id number], 12807470, 83566809, 00043400, 96039072 #### [facility] [address] [place] [address] Ambulatory Visit Summaryon 1 Ambulatory Visit Summary ADINA PERRY :1940 Visit Date:01/10/2022 Ambulatory Visit Instructions Your Diagnosis Watery diarrhea Fecal incontinence RLQ abdominal pain Weight loss Nausea and vomiting Anemia History of colon polyps Your Care Team Attending Physician - Shi Urbano CNP Primary Care Physician - ADRIANA CRUZ DO This Is Your Medications List magnesium/potassium/sodium sulfates (obsolete) (Suprep Bowel Prep Kit oral liquid) Contact prescribing physician if questions or concerns albuterol amlodipine aspirin (aspirin 81 mg Oral EC Tab) atorvastatin budesonide-formoterol (budesonide-formoterol 160 mcg-4.5 mcg/inh Inh Aer w/adapter) chlorthalidone cholecalciferol (Vitamin D3) gabapentin isosorbide mononitrate losartan pantoprazole sertraline spironolactone Procedures Performed EGD - Esophagogastroduodenoscopy (07/06/2020), Colonoscopy. Discharge Vitals Temperature (Temporal Artery) 36.3 ?C Heart Rate (Peripheral) 51 Blood Pressure 158/64 Height 59 in Height 150 cm Weight 106.26 lb Weight 48.3 kg BMI 21.47 What to do next You Need to Schedule the Following Appointments Follow Up with Shi Urbano CNP When: Within 1 to 2 weeks Where: You Need to Complete the Following CBC w/ Auto Diff, Blood, Routine collect, 01/10/22, Order for future visit, Lab Collect, Watery diarrhea Invalid Interpretation Code RLQ abdominal pain [facility] Auto Diffon 01-10-2022 Basophils/100 WBC (Bld) 1.0 % Normal 0.0-2.0 [facility] Comment on above: Order Comment: Order Added by Discern Expert. Performed By: #### 2 052576, 1447446, 70554471, 6830746 ####[facility] [address] [place] [address] Basophils/Leukocytes Auto (Bld) [Pure # fraction] 0.1 E9/L Normal 0.0-0.2 [facility] Comment on above: Order Comment: Order Added by Discern Expert. Performed By: #### 2 423200, 7301710, 04857810, 8924112 ####[facility] [address] [place] [address] Eosinophils/100 WBC (Bld) 1.0 % Normal 0.0-8.0 [facility] Comment on above: Order Comment: Order Added by Discern Expert. Performed By: #### 2 611391, 5199904, 42966978, 7380547 ####[address] [place] [address] Eosinophils/Leukocyte s Auto (Bld) [Pure # fraction] 0.1 E9/L Normal 0.0-0.5 [facility] Comment on above: Order Comment: Order Added by Discern Expert. Performed By: #### 2 554651, 3173876, 82405666, 2431457 ####[address] [address] Lymphocytes/100 WBC (Bld) 20.0 % Normal 14.0-50.0 [facility] Comment on above: Order Comment: Order Added by Ramírez Expert. Performed By: #### 2 184999, 3977404, 36302874, 2884437 ####[address] [address] Lymphocytes/Leukocyte s Auto (Bld) [Pure # fraction] 2.0 E9/L Normal 1.0-4.0 [facility] Comment on above: Order Comment: Order Added by Ramírez Expert. Performed By: #### 2 375542, 1163893, 49793210, 2458602 ####[address] [address] Monocytes/100 WBC (Bld) 8.7 % Normal 4.0-14.0 [facility] Comment on above: Order Comment: Order Added by Discern Expert. Performed By: #### 2 963059, 2495300, 10609950, 5403844 ####[address] [address] Monocytes/Leukocytes Auto (Bld) [Pure # fraction] 0.9 E9/L Normal 0.2-1.0 [facility] Comment on above: Order Comment: Order Added by Ramírez Expert. Performed By: #### 2 479492, 9934903, 00658899, 5020467 ####[address] [address] Neutrophils/100 WBC (Bld) 69.3 % Normal 36.0-75.0 [facility] Comment on above: Order Comment: Order Added by Discern Expert. Performed By: #### 2 024620, 6697566, 18669857, 2258904 ####[address] [place] [address] Neutrophils/Leukocyte s Auto (Bld) [Pure # fraction] 7.0 E9/L Normal 2.0-7.5 [facility] Comment on above: Order Comment: Order Added by Discern Expert. Performed By: #### 2 572075, 8287119, 43457777, 3458019 ####[address] [address] CBC w/ Auto Diffon Erythrocyte distribution width (RBC) [Ratio] 14.7 % High 10.9-14.2 [facility] Comment on above: Performed By: #### 2 018665, 9980741, 21219236, 6015237 ####[address] [address] Hematocrit (Bld) [Volume fraction] 37.1 % Normal 34.0-46.0 [facility] Comment on above: Performed By: #### 2 574255, 1360557, 59101153, 6380801 ####[address] [address] Hemoglobin (Bld) [Mass/Vol] 12.2 g/dL Normal 12.0-16.0 [facility] Comment on above: Performed By: #### 2 646810, 9217657, 42831278, 9915299 ####[address] [address] MCH (RBC) [Entitic mass] 30.0 pg Normal 27.0-34.0 [facility] Comment on above: Performed By: #### 2 603748, 6953131, 51688372, 2330545 ####[address] [address] MCHC (RBC) [Mass/Vol] 33.0 g/dL Normal 31.4-36.0 [facility] Comment on above: Performed By: #### 2 983538, 4568746, 22479258, 7574790 ####[facility] [address] [place] [address] MCV (RBC) [Entitic vol] 90.8 fL Normal 80.0-100.0 [facility] Comment on above: Performed By: #### 2 777467, 1031823, 98968839, 5190312 ####[address] [address] Platelet mean volume (Bld) [Entitic vol] 7.9 fL Normal 6.4-10.8 [facility] Comment on above: Performed By: #### 2 196883, 9595965, 68179254, 7949992 ####[address] Platelets (Bld) [#/Vol] 281.0 E9/L Normal 150.0-500. 0 [facility] Comment on above: Performed By: #### 2 539969, 1135049, 99954172, 4082376 ####[address] [address] RBC (Bld) [#/Vol] 4.1 E12/L Low 4.3-5.9 [facility] Comment on above: Performed By: #### 2 105649, 3952911, 86232480, 4649219 ####[address] [address] WBC corrected for nucl RBC Auto (Bld) [#/Vol] 10.1 E9/L Normal 4.0-11.0 [facility] Comment on above: Performed By: #### 2 868657, 8069600, 09584331, 3730605 ####[address] [address] CMPon 01-10-2022 Albumin [Mass/Vol] 4.4 g/dL Normal 3.3-5.0 [facility] Comment on above: Performed By: #### 2 462031, 1081933, 59840523, 0989494 ####[address] [place] [address] Albumin/Globulin (S) [Mass conc ratio] 1.5 Normal 1.1-2.2 [facility] Comment on above: Performed By: #### 2 822015, 4520227, 83172581, 9297803 ####[address] [address] ALP [Catalytic activity/Vol] 55 Int._Unit/L Normal 21-98 [facility] Comment on above: Performed By: #### 2 227778, 0775356, 83915869, 8145937 ####[address] [address] ALT No additional P-5'-P [Catalytic activity/Vol] 15 Int._Unit/L Normal 6-46 [facility] Comment on above: Performed By: #### 2 987785, 8353568, 10827015, 7517693 ####[facility] [address] [place] [address] Anion gap [Moles/Vol] 19 mmol/L High 6-16 [facility] Comment on above: Performed By: #### 2 763687, 1834626, 94026699, 4315510 ####[address] [place] [address] AST [Catalytic activity/Vol] 19 Int._Unit/L Normal 5-43 [facility] Comment on above: Performed By: #### 2 872223, 5798866, 03104584, 1766090 ####[facility] [address] [place] [address] Bilirubin [Mass/Vol] 0.7 mg/dL Normal 0.0-1.1 [facility] Comment on above: Performed By: #### 2 900560, 8112380, 70133487, 3360866 ####[facility] [address] [place] [address] Calcium [Mass/Vol] 10.5 mg/dL Normal 8.9-11.1 [facility] Comment on above: Performed By: #### 2 971635, 7980056, 65863557, 8739451 ####[facility] [address] [place] [address] Chloride [Moles/Vol] 103 mmol/L Normal 101-111 [facility] Comment on above: Performed By: #### 2 175615, 0718190, 65852967, 7893403 ####[facility] [address] [place] [address] CO2 [Moles/Vol] 23 mmol/L Normal 21-31 [facility] Comment on above: Performed By: #### 2 242314, 3396951, 65031561, 5092208 ####[facility] [address] [place] [address] Creatinine [Mass/Vol] 1.2 mg/dL Normal 0.5-1.3 [facility] Comment on above: Performed By: #### 2 672588, 4236321, 78677205, 5219504 ####[facility] [address] [facility] [place] [address] Globulin (S) [Mass/Vol] 2.9 g/dL Normal 1.4-4.0 [facility] Comment on above: Performed By: #### 2 129418, 8101482, 51904821, 4009943 ####[facility] [address] [place] [address] Glucose [Mass/Vol] 94 mg/dL Normal 55-199 [facility] Comment on above: Result Comment: If t his glucose result represents a fasting glucose, interpretation should refer to the following reference range: 55-99 mg/dL Performed By: #### 2 591280, 3314874, 23967023, 6388207 ####[facility] [address] [facility] [place] [address] Potassium [Moles/Vol] 4.7 mmol/L Normal 3.5-5.3 [facility] Comment on above: Performed By: #### 2 579889, 0361979, 60668661, 7292898 ####[facility] [address] [place] [address] Protein [Mass/Vol] 7.3 g/dL Normal 6.0-7.8 [facility] Comment on above: Performed By: #### 2 449164, 0993994, 41789428, 1028002 ####[facility] [address] [place] [address] Sodium [Moles/Vol] 140 mmol/L Normal 135-145 [facility] Comment on above: Performed By: #### 2 297560, 0817395, 83770958, 9356222 ####[facility] [address] [place] [address] Urea nitrogen [Mass/Vol] 25 mg/dL High 5-21 [facility] Comment on above: Performed By: #### 2 867261, 2738685, 56200759, 2142006 ####[facility] [address] [place] [address] Urea nitrogen/Creatinine [Mass ratio] 21 No Units High 10-20 [facility] Comment on above: Performed By: #### 2 135828, 8530190, 37492406, 6030004 ####[facility] [address] [place] [address] Consent for Treatmenton 0 Consent for Treatment [id number]:127 Normal [facility] Gastroenterology Office/Clin ic Noteon 01-10-2022 Gastroenterology Office/Clinic Note Chief Complaint Worsening diarrhea. HPI Staff New patient is a 81 year old female referred by Dr Minor for diarrhea that is intermittent and worsening. History of Present Illness Patient is a 81-year-old female who presents for referral from her PCP?Dr. Minor for further evaluation of diarrhea. Presents with her daughter today. Review of the outside record from patient's PCP indicated patient was evaluated 11/12/2021 for vomiting and diarrhea. Review of outside record indicated patient had previous EGD with Dr. Brannon at [facility] 07/2020 that revealed normal EGD. Was previously evaluated at [facility] ER 11/12/21 for N/V/D and had CT abdomen/pelvis that showed fat-containing ventral hernia. WBC was elevated 11/12/21 at 12.3, H/H slightly low at 10.8/32.4, BMP with hyponatremia and was treated with IV fluids and zofran. PMH of HTN, HLD- managed by patient's PCP. Family history of colon cancer: Denies. Family history of colon polyps: Denies. Personal history of colon cancer: Denies. Personal history of colon polyps: Yes, per patient. Takes aspirin daily. During today's visit, patient reports she has had years of difficulty with loose stools. Explains over the last year she has been having worsening watery diarrhea with associated fecal incontinence and abdominal cramping. Fecal incontinence occurs with coughing or movement and wears pads. Is having RLQ pain off/on described as achy for 20 years. Patient reports losing her 1 year ago and has lost weight. Has loss of appetite. Is also having rare occasions of nausea and vomiting over the last year that occurs with diarrhea at times. Patient's daughter verbalizes that patient has lost 25-30 pounds in the last year. Patient had previous colonoscopy 2010 in [place] and reports was normal. Patient reports hx. colon polyps on previous colonoscopy- no record of previous colonoscopies available to review during today's encounter. Denies fiber supplementation. Denies black/bloody stools. Denies having any other GI complaints. Review of Systems PHQ Score Initial Depression Screen Score: 0 ROS - Provider Constitutional: no fever. Skin: no Jaundice. ENMT: Denies dysphagia and heartburn. Respiratory: no shortness of breath. Cardiovascular: no chest pain. Gastrointestinal: yes nausea, yes vomiting, yes diarrhea, no GI bleeding. Physical Exam Vitals & Measurements T: 36.3 ?C(Temporal Artery) HR: 51(Peripheral) BP: 158/64 HT: 59 in HT: 150 cm WT: 48.3 kg WT: 106.26 lb BMI: 21.47 General: Well developed, well nourished, in no acute distress Head: Normocephalic/atraumatic Lungs: Normal respiratory effort and clear to auscultation Cardio: Regular rate and rhythm, normal S1 and S2, no murmur, no rub Abdomen: Soft, non-distended. Tenderness to RLQ, no tenderness noted to LUQ, RUQ, or LLQ. Negative rebound tenderness to RLQ. Normoactive bowel sounds present in all 4 abdominal quadrants, bilaterally. Mental Status: Alert and oriented x3. Normal mood and affect Assessment/Plan BP elevated at 158/64- BP managed by patient's PCP. 1. Watery diarrhea (R19.7: Diarrhea, unspecified) Over the last year she has been having worsening watery diarrhea with associated fecal incontinence and abdominal cramping. Ordered CBC/CMP to evaluate for acute process. Ordered stool testing to evaluate for infectious process. Ordered Colonoscopy. Takes aspirin daily. Ordered: CBC w/ Auto Diff Clostridium difficile by PCR Comprehensive Metabolic Panel Enteric Panel by PCR Fecal WBC Lactoferrin Giardia lamblia, Direct Detection EIA O & P Exam, Routine 2. Fecal incontinence (R15.9: Full incontinence of feces) Fecal incontinence occurs with coughing or movement and wears pads. Ordered CBC/CMP to evaluate for acute process. Ordered stool testing to evaluate for infectious process. Ordered Colonoscopy. Takes aspirin daily. Ordered: CBC w/ Auto Diff Clostridium difficile by PCR Comprehensive Metabolic Panel Enteric Panel by PCR Fecal WBC Lactoferrin Giardia lamblia, Direct Detection EIA O & P Exam, Routine 3. RLQ abdominal pain (R10.31: Right lower quadrant pain) RLQ pain off/on described as achy for 20 years. Ordered CBC/CMP to evaluate for acute process. 11/12/21 at [facility]-CT abdomen/pelvis that showed fat-containing ventral hernia. Tenderness to palpation to RLQ during physical exam. Ordered Colonoscopy. Ordered referral to general surgery regarding ventral hernia. Educated if no improvement to be evaluated in ER. Ordered: CBC w/ Auto Diff Comprehensive Metabolic Panel 4. Weight loss (R63.4: Abnormal weight loss) Has loss of appetite. Is also having rare occasions of nausea and vomiting over the last year that occurs with diarrhea at times. Patient's daughter verbalizes that patient has lost 25-30 pounds in the last year. Is also having rare occasions of nausea and vomiting over the last year that occurs with diarrhea at times. (more content not included)... Normal [facility] Comment on above: Result Comment: Mikael tineo Signed By: Shi Urbano CNP.basia\Date and Time Signed: 01/10/22 11:40 EDT Patient Educationon 01-11-20 Patient Education Gastroenterology Fecal Incontinence Fecal incontinence, also called accidental bowel leakage, is not being able to control your bowels. This condition happens because the nerves or muscles around the anus do not work the way they should. This affects their ability to hold stool (feces). What are the causes? This condition may be caused by: ? Damage to the muscles at the end of the rectum (sphincter). ? Damage to the nerves that control bowel movements. ? Diarrhea. ? Chronic constipation. ? Pelvic floor dysfunction. This means the muscles in the pelvis do not work well. ? Loss of bowel storage capacity. This occurs when the rectum can no longer stretch in size in order to store feces. ? Inflammatory bowel disease (IBD), such as Crohn's disease. ? Irritable bowel syndrome (IBS). What increases the risk? You are more likely to develop this condition if you: ? Were born with bowels or a pelvis that did not form correctly. ? Have had rectal surgery. ? Have had radiation treatment for certain cancers. ? Have been , had a vaginal delivery, or had surgery that damaged the pelvic floor muscles. ? Had a complicated childbirth, spinal cord injury, or other trauma that caused nerve damage. ? Have a condition that can affect nerve function, such as diabetes, Parkinson's disease, or multiple sclerosis. ? Have a condition where the rectum drops down into the anus or vagina (prolapse). ? Are 65 years of age or older. What are the signs or symptoms? The main symptom of this condition is not being able to control your bowels. You also might not be able to get to the bathroom before a bowel movement. How is this diagnosed? This condition is diagnosed with a medical history and physical exam. You may also have other tests, including: ? Blood tests. ? Urine tests. ? A rectal exam. ? Ultrasound. ? MRI. ? Colonoscopy. This is an exam that looks at your large intestine (colon). ? Anal manometry. This is a test that measures the strength of the anal sphincter. ? Anal electromyogram (EMG). This is a test that uses small electrodes to check for nerve damage. How is this treated? Treatment for this condition depends on the cause and severity. Treatment may also focus on addressing any underlying causes of this condition. Treatment may include: ? Medicines. This may include medicines to: ? Prevent diarrhea. ? Help with constipation (bulk-forming laxatives). ? Treat any underlying conditions. ? Biofeedback therapy. This can help to retrain muscles that are affected. ? Fiber supplements. These can help manage your bowel movements. ? Nerve stimulation. ? Injectable gel to promote tissue growth and better muscle control. ? Surgery. You may need: ? Sphincter repair surgery. ? Diversion surgery. This procedure lets feces pass out of your body through a hole in your abdomen. Follow these instructions at home: Eating and drinking ? Follow instructions from your health care provider about any eating or drinking restrictions. ? Work with a dietitian to come up with a healthy diet that will help you avoid the foods that can make your condition worse. ? Keep a diet diary to find out which foods or drinks could be making your condition worse. ? Drink enough fluid to keep your urine pale yellow. Lifestyle ? Do not use any products that contain nicotine or tobacco, such as cigarettes and e-cigarettes. If you need help quitting, ask your health care provider. This may help your condition. ? If you are overweight, talk with your health care provider about how to safely lose weight. This may help your condition. ? Increase your physical activity as told by your health care provider. This may help your condition. Always talk with your health care provider before starting a new exercise program. ? Carry a change of clothes and supplies to clean up quickly if you have an episode of incontinence. ? Consider joining a fecal incontinence support group. You can find a support group online or in your local community. General instructions ? Take egzt-bmm-ipxczua and prescription medicines only as told by your health care provider. This includes any supplements. ? Apply a moisture barrier, such as petroleum jelly, to your rectum. This protects the skin from irritation caused by ongoing leaking or diarrhea. ? Tell your health care provider if you are upset or depressed about your condition. ? Keep all follow-up visits as told by your health care provider. This is important. Where to find more information ? [employer] for Functional Gastrointestinal Disorders: iffgd.org ? [employer]: patients.gi.org Contact a health care provider if: ? You have a fever. ? You have redness, swelling, or pain around your rectum. ? Your pain is getting worse or you lose feeling in your rectal area. ? You have blood (more content not included)... Normal [facility] eGFRon 01-10-2022 GFR/1.73 sq M.predicted among blacks MDRD (S/P/Bld) [Vol rate/Area] 53 mL/min/1.73 m2 Low >=59 [facility] Comment on above: Order Comment: Order added by Discern Expert. Result Comment: eGFR is race adjusted. AA=. Performed By: #### 2 761139, 3006280, 99349743, 7447226 ####[facility] [address] [place] [address] GFR/1.73 sq M.predicted among non-blacks MDRD (S/P/Bld) [Vol rate/Area] 43 mL/min/1.73 m2 Low >=59 [facility] Comment on above: Order Comment: Order added by Discern Expert. Result Comment: Assistant Professor Of [employer] serene kidney disease could be indicated at eGFR's of less than 60 mL/min/1.73m2. Kidney failure is indicated at less than 15 mL/min/1.73m2. Performed By: #### 2 929922, 7004549, 66425003, 1570939 ####[facility] [address] [place] [address] Physician Referralon 022 Physician Referral [id number]:127 Normal [facility] Urine culture routineOrdered By: Misbah Greenwood on 11-15-2021 Bacteria identified Cx Nom (U) Escherichia coli [facility] Bacteria identified Cx Nom (U) Klebsiella pneumoniae [facility] Automated erythrocytes count in urine sediment (number/area)Ordered By: Misbah Greenwood on 11-12-2021 RBC Auto (Urine sed) [#/Area] 1-2 [HPF] 0-4 [facility] Automated leukocytes count i n urine sediment (number/area)Ordered By: Misbah Greenwood on 11-12-2021 WBC Auto (Urine sed) [#/Area] 10-19 [HPF] 0-4 [facility] Automated urine hyaline cast s count (number/volume)Ordered By: Misbah Greenwood on 11-12-2021 Hyaline casts Auto (U) [#/Vol] Rare [LPF] 0-1 [facility] Basophils Auto (Bld) [#/Vol] Ordered By: Misbah Greenwood on 11-12-2021 Basophils (Bld) [#/Vol] 0.1 10*3/uL 0.0-0.2 [facility] Basophils/100 WBC Auto (Bld) Ordered By: Misbah Greenwood on 11-12-2021 Basophils/100 WBC (Bld) 0.7 % . [facility] Bilirubin Test strip Ql (U)O rdered By: Misbah Greenwood on 11-12-2021 Bilirubin Ql (U) Negative Negative [facility] Blood hemoglobin measurement (mass/volume)Ordered By: Misbah Greenwood on 11-12-2021 Hemoglobin (Bld) [Mass/Vol] 10.8 g/dL 11.8-15.4 [facility] Blood leukocytes automated c ount (number/volume)Ordered By: Misbah Greenwood on 11-12-2021 WBC (Bld) [#/Vol] 12.3 10*3/uL 4.5-11.0 [facility] Body fluid albumin measureme nt (mass/volume)Ordered By: Misbah Greenwood on 11-12-2021 Albumin (Body fld) [Mass/Vol] 3.7 g/dL 3.2-5.5 [facility] COVID-19 SOFIAOrdered By: Kee Greenwood on 11-12-2021 SARS-CoV+SARS-CoV-2 (COVID-19) Ag IA.rapid Ql (Resp) Negative Negative [facility] Comment on above: This is a duplicate Johana SARS Antigen (DEEDEE) result to be used for statistical tracking purpose only. Casts typing in urine sedime nt by light microscopyOrdered By: Misbah Greenwood on 11-12-2021 Casts LM Nom (Urine sed) None seen [LPF] None Seen [facility] Color Auto (U)Ordered By: Kee gudelia Timo on 11-12-2021 Color (U) Yellow Yellow [facility] Creatinine and Glomerular fi ltration rate.predicted panel (S/P/Bld)Ordered By: Misbah Greenwood on 11-12-2021 Creatinine [Mass/Vol] 1.58 mg/dL 0.44-1.03 [facility] Eosinophils Auto (Bld) [#/Vo l]Ordered By: Misbah Greenwood on 11-12-2021 Eosinophils (Bld) [#/Vol] 0.2 10*3/uL 0.0-0.45 [facility] Eosinophils/100 WBC Auto (Bl d)Ordered By: Misbah Greenwood on 11-12-2021 Eosinophils/100 WBC (Bld) 1.4 % . [facility] Erythrocyte distribution wid th Auto (RBC) [Ratio]Ordered By: Misbah Greenwood on 11-12-2021 Erythrocyte distribution width (RBC) [Ratio] 13.7 % 11.9-15.3 [facility] Estimated glomerular filtrat ion rate (GFR) non- AmericanOrdered By: Misbah Greenwood on 11-12-2021 GFR/1.73 sq M.predicted among non-blacks MDRD (S/P/Bld) [Vol rate/Area] 32 mL/Min [facility] Globulin Calc (S) [Mass/Vol] Ordered By: Misbah Greenwood on 11-12-2021 Globulin (S) [Mass/Vol] 3.0 g/dL [facility] Hematocrit Auto (Bld) [Volum e fraction]Ordered By: Misbah Greenwood on 11-12-2021 Hematocrit (Bld) [Volume fraction] 32.4 % 34.0-46.4 [facility] Ketones Auto test strip (U) [Mass/Vol]Ordered By: Misbah Greenwood on 11-12-2021 Ketones (U) [Mass/Vol] Negative Negative [facility] Laboratory - Chemistry and C hemistry - challengeOrdered By: Misbah Greenwood on 11-12-2021 Lipase [Catalytic activity/Vol] 44.0 U/L 22-51 [facility] Laboratory - Hematology and Cell countsOrdered By: Misbah Greenwood on 11-12-2021 Nucleated RBC/100 WBC (Bld) [Ratio] 0.0 % 0-0.5 [facility] Lymphocytes Auto (Bld) [#/Vo l]Ordered By: Misbah Greenwood on 11-12-2021 Lymphocytes (Bld) [#/Vol] 0.9 10*3/uL 1.00-4.8 [facility] Lymphocytes/100 WBC Auto (Bl d)Ordered By: Misbah Greenwood on 11-12-2021 Lymphocytes/100 WBC (Bld) 7.5 % . [facility] MCH Auto (RBC) [Entitic mass ]Ordered By: Misbah Greenwood on 11-12-2021 MCH (RBC) [Entitic mass] 29.9 pg 24.7-34.3 [facility] MCHC Auto (RBC) [Mass/Vol]Or dered By: Misbah Greenwood on 11-12-2021 MCHC (RBC) [Mass/Vol] 33.2 g/dL 32.0-35.0 [facility] MCV Auto (RBC) [Entitic vol] Ordered By: Misbah Greenwood on 11-12-2021 MCV (RBC) [Entitic vol] 90.0 fL 80-100 [facility] Monocytes Auto (Bld) [#/Vol] Ordered By: Misbah Greenwood on 11-12-2021 Monocytes (Bld) [#/Vol] 1.0 10*3/uL 0.0-0.8 [facility] Monocytes/100 WBC Auto (Bld) Ordered By: Misbah Greenwood on 11-12-2021 Monocytes/100 WBC (Bld) 8.3 % . [facility] Neutrophils Auto (Bld) [#/Vo l]Ordered By: Misbah Greenwood on 11-12-2021 Neutrophils (Bld) [#/Vol] 10.1 10*3/uL 1.8-7.7 [facility] Neutrophils/100 WBC Auto (Bl d)Ordered By: Misbah Greenwood on 11-12-2021 Neutrophils/100 WBC (Bld) 82.1 % . [facility] Nitrite Test strip Ql (U)Ord ered By: Misbah Greenwood on 11-12-2021 Nitrite Ql (U) Negative Negative [facility] No Panel InformationOrdered By: Misbah Greenwood on 11-12-2021 Estimated GFR () 38 mL/Min [facility] Comment on above: GFR estimated refere nce range: According to KDOQI guidelines, <60 ml/min/1.73m2 is sufficient to diagnose a patient with chronic kidney disease. Pharmacy Creatinine Clearance (Chem 20.67 [facility] SARS Antigen (LFIA) [facility] Platelet mean volume Auto (B ld) [Entitic vol]Ordered By: Misbah Greenwood on 11-12-2021 Platelet mean volume (Bld) [Entitic vol] 7.6 fL 6.3-10.7 [facility] Platelets Auto (Bld) [#/Vol] Ordered By: Misbah Greenwood on 11-12-2021 Platelets (Bld) [#/Vol] 379 10*3/uL 150-450 [facility] Protein Auto test strip (U) [Mass/Vol]Ordered By: Misbah Greenwood on 11-12-2021 Protein (U) [Mass/Vol] Trace mg/dL Negative [facility] Protein [Mass/volume] in Ser um or PlasmaOrdered By: Misbah Greenwood on 11-12-2021 Protein [Mass/Vol] 6.7 g/dL 6.1-7.9 [facility] RBC Auto (Bld) [#/Vol]Ordere d By: Misbah Greenwood on 11-12-2021 RBC (Bld) [#/Vol] 3.59 10*6/uL 3.60-5.00 [facility] Serum or plasma alanine villanueva otransferase measurement without P-5'-P (enzymatic activiOrdered By: Misbah Greenwood on 11-12-2021 ALT No additional P-5'-P [Catalytic activity/Vol] 13 U/L 10-60 [facility] Serum or plasma albumin/glob ulin mass ratioOrdered By: Misbah Greenwood on 11-12-2021 Albumin/Globulin [Mass ratio] 1.2 {ratio} [facility] Serum or plasma alkaline ladarius sphatase measurement (enzymatic activity/volume)Ordered By: Misbah Greenwood on 11-12-2021 ALP [Catalytic activity/Vol] 74 U/L 32-92 [facility] Serum or plasma aspartate am inotransferase measurement (enzymatic activity/volume)Ordered By: Misbah Greenwood on 11-12-2021 AST [Catalytic activity/Vol] 17 U/L 10-42 [facility] Serum or plasma calcium dennis urement (mass/volume)Ordered By: Misbah Greenwood on 11-12-2021 Calcium [Mass/Vol] 9.5 mg/dL 8.2-10.2 [facility] Serum or plasma chloride brea surement (moles/volume)Ordered By: Misbah Greenwood on 11-12-2021 Chloride [Moles/Vol] 103 mmol/L 95-114 [facility] Serum or plasma glucose dennis urement (mass/volume)Ordered By: Misbah Greenwood on 11-12-2021 Glucose [Mass/Vol] 118 mg/dL 70-100 [facility] Comment on above: ADA recommended refe rence range Random Glucose Reference Range is dependent on time and content of last meal. Glucose of more than 200 mg/dL in a nonstressed, ambulatory subject supports the diagnosis of Diabetes Mellitus. Serum or plasma potassium me asurement (moles/volume)Ordered By: Misbah Greenwood on 11-12-2021 Potassium [Moles/Vol] 3.7 mmol/L 3.5-5.1 [facility] Serum or plasma sodium measu rement (moles/volume)Ordered By: Misbah Greenwood on 11-12-2021 Sodium [Moles/Vol] 135 mmol/L 136-146 [facility] Serum or plasma total biliru bin measurement (mass/volume)Ordered By: Misbah Greenwood on 11-12-2021 Bilirubin [Mass/Vol] 0.3 mg/dL 0.3-1.2 [facility] Serum or plasma total carbon dioxide measurement (moles/volume)Ordered By: Misbah Greenwood on 11-12-2021 CO2 [Moles/Vol] 19.9 mmol/L 22.0-30.0 [facility] Serum or plasma urea nitroge n measurement (mass/volume)Ordered By: Misbah Greenwood on 11-12-2021 Urea nitrogen [Mass/Vol] 21 mg/dL 9-23 [facility] Specific gravity Auto test s trip (U) [Rel density]Ordered By: Misbah Greenwood on 11-12-2021 Specific gravity (U) [Rel density] 1.012 1.001-1.03 0 [facility] Squamous epithelial cells de tection in urine sediment by light microscopyOrdered By: Misbah Greenwood on 11-12-2021 Epithelial cells.squamous LM Ql (Urine sed) 5-9 [HPF] 0-2 [facility] Urine bacteria detection by automated methodOrdered By: Misbah Greenwood on 11-12-2021 Bacteria Auto Ql (U) None seen None Seen [facility] Urine clarity by refractomet ry automatedOrdered By: Misbah Greenwood on 11-12-2021 Clarity Refractometry automated (U) Clear Clear [facility] Urine glucose measurement by automated test strip (mass/volume)Ordered By: Misbah Greenwood on 11-12-2021 Glucose Auto test strip (U) [Mass/Vol] Normal mg/dL Normal [facility] Urine hemoglobin detection b y automated test stripOrdered By: Misbah Greenwood on 11-12-2021 Hemoglobin Auto test strip Ql (U) Negative Negative [facility] Urine leukocyte esterase det ection by automated test stripOrdered By: Misbah Greenwood on 11-12-2021 Leukocyte esterase Auto test strip Ql (U) 1+ Negative [facility] Urine sediment renal epithel ial cell count by microscopy (number/high power field)Ordered By: Misbah Greenwood on 11-12-2021 Epithelial cells.renal LM.HPF (Urine sed) [#/Area] None seen [HPF] 0-1 [facility] Urobilinogen Auto test strip (U) [Mass/Vol]Ordered By: Misbah Greenwood on 11-12-2021 Urobilinogen (U) [Mass/Vol] Normal mg/dL Normal [facility] pH Auto test strip (U)Ordere d By: Misbah Greenwood on 11-12-2021 pH (U) 5.5 [pH] 5.0-9.0 [facility] SCREENING MAMMOGRAM W/DANIEL, BILATERAL*on 10-18-2021 SCREENING MAMMOGRAM W/DANIEL, BILATERAL* EXAMINATION: Screening Mammogram CLINICAL HISTORY: Unremarkable. COMPARISON: Dating back to 02/16/2019 TECHNIQUE: 2D and 3D Tomosynthesis of the right and left breasts was performed. FINDINGS: There are scattered fibroglandular densities within each breast. There are no suspicious masses, areas of suspicious microcalcifications or areas of architectural distortion identified. No evidence of skin thickening. There are vascular calcifications present. There are stable benign-appearing calcifications present. IMPRESSION: BIRADS 2 : BENIGN FINDINGS, NORMAL INTERVAL FOLLOW UP. MAMMOGRAPHY IS VERY IMPORTANT TO YOUR HEALTH. THE CURRENT CITIZEN OF [place] [employer] GUIDELINES RECOMMEND ANNUAL MAMMOGRAPHY BEGINNING AT AGE 42. THIS FACILITY UTILIZES A REMINDER SYSTEM TO ENSURE ALL PATIENTS RECEIVE A REMINDER NOTIFICATION AT THE APPROPRIATE TIME BASED ON THE RECOMMENDATIONS OF THIS EXAM. BOARD CERTIFIED RADIOLOGIST. ACCREDITED BY THE [facility] AND FDA. Report reported and signed by Claudia Hinson on 10/21/2021 1432 Normal [facility] Correctional Counselor/Case Manager [facility] CARDIAC STRESS/REST INJE CTIONon 08-28-2021 [facility] CARDIAC STRESS/REST INJECTION Addendum Begins Patient Name: ADINA PERRY ADDENDUM: The resting ECG on this study was sinus bradycardia with incomplete right bundle branch block. The ejection fraction was 70% with a t.i.d 1.10. To a study from another institution from 2016 there has been no significant interval changes Electronically signed by: MARK ZAMBRANO MD Addendum Ends Patient Name: ADINA PERRY STUDY: MYOCARDIAL PERFUSION STRESS TEST WITH LEXISCAN Performing facility: [facility], [address] [place] [address], [address], [place] [address] [facility] Provider: Mary Ayala MD PCP: Dr. Cruz Supervising provider: Mary Ayala MD INDICATION: CAD; SOBOE Nonischemic cardiomyopathy HISTORY: Gender: F; Age: 81 y/o ; Height: 149.8 cm; Weight: 52.7 kg. High Cholesterol; HTN; SOB; Denies smoking. COMPARISON: Previous nuclear testing completed [id number] at [facility]. ACCESSION NUMBER(S): [id number]; [id number]; [id number] ORDERING CLINICIAN: MARY AYALA TECHNIQUE: ONE DAY protocol. Stress injection: Date:08-28-21, 31.8 mCi of Myoview IV 20 seconds after rapid injection of Lexiscan. Rest injection: Date: 08-28-21, 11.3 mCi of Myoview IV at rest. The patient had a rapid injection of 0.4 mg of Lexiscan IV over 10 seconds. Imaging was performed by gated tomographic technique. Reason for Lexiscan: dizziness/unsteady/fall risk STRESS TEST DATA: Resting heart rate was 54 BPM. Resting blood pressure was 144/64 mmHg. Peak blood pressure was 130/50 mmHg. Peak heart rate was 82 BPM. TEST TERMINATED DUE TO: Protocol completed FINDINGS: STRESS TEST RESULTS: Resting electrocardiogram revealed normal sinus rhythm. There were no significant ischemic ECG changes or dysrhythmias. The patient did not have chest pains/symptoms during procedure. There was a normal recovery phase. IMAGING RESULTS: Image quality was good. Rest and stress tomographic images were reviewed and revealed normal perfusion without evidence of ischemia, myocardial infarction, or left ventricular dilatation with stress. Overall left ventricular systolic function appeared to be normal without regional wall motion abnormalities. Ejection fraction was 75%. TID is 0.72 and is normal. There was no evidence of attenuation artifact. IMPRESSION: Normal Lexiscan Myoview cardiac perfusion stress test. No evidence of ischemia or myocardial infarction by perfusion imaging. Normal left ventricular systolic function, ejection fraction 75%. No previous studies are available for comparison. Electronically signed by: MARK ZAMBRANO MD Normal [facility] No Panel Informationon 08-28 Normal [facility] [address] DO Work Phone: [facility] DO Work Phone: Office Visit (Cardiology)on 06-07-2021 Follow-up visit Diagnoses/Problems Assessed Coronary artery disease (414.00) (I25.10) Essential hypertension, benign (401.1) (I10) Hyperlipidemia (272.4) (E78.5) Nonischemic cardiomyopathy (425.4) (I42.8) Shortness of breath (786.05) (R06.02) Body mass index (BMI) of 21.0 to 21.9 in adult (V85.1) (Z68.21) Never a smoker Orders Coronary artery disease, Nonischemic cardiomyopathy Renew: Aspirin 81 MG Oral Tablet Delayed Release; TAKE 1 TABLET DAILY Hyperlipidemia Renew: Atorvastatin Calcium 40 MG Oral Tablet; TAKE 1 TABLET DAILY Nonischemic cardiomyopathy, Shortness of breath Renew: Isosorbide Mononitrate ER 30 MG Oral Tablet Extended Release 24 Hour; TAKE 1 TABLET DAILY SocHx: Never a smoker Tobacco Use Screening; Status:Complete; Done: 07Jun2021 Patient Instructions By signing my name below, I, Jonah Way LPNibe, attest that this documentation has been prepared under the direction and in the presence of Dr. Nick Wasserman MD. All medical record entries made by the Scribe were at my direction and personally dictated by me. I have reviewed the chart and agree that the record accurately reflects my personal performance of the history, physical exam, discussion and plan. Please bring all medicines, vitamins, and herbal supplements with you when you come to the office. Prescriptions will not be filled unless you are compliant with your follow up appointments or have a follow up appointment scheduled as per instruction of your physician. Refills should be requested at the time of your visit. Follow up in 6 months Chief Complaint ADINA PERRY is being seen for a 3 month follow-up of. History of Present Illness Symptoms better with Imdur Patient returns in follow-up of problems as noted. She is done well. She denies angina CHF arrhythmia or other symptomatology. She believes she felt better on nitrate therapy and advised her I am still very concerned she might have coronary disease in need of intervention but she again steadfastly refuses to undergo stress testing or angiography and wishes to continue medical therapy as is. The potential for myocardial infarction or other catastrophic events was explained her in detail and she states she is willing to accept the risks. Because of this we will otherwise continue medical therapy which appears to be adequate and appropriate. Surgical History Problems History of Back surgery History of Bladder surgery History of Cholecystectomy History of Complete colonoscopy History of Hysterectomy History of Knee replacement Current Meds Medication NameInstruction Albuterol Sulfate HFA 108 (90 Base) MCG/ACT Inhalation Aerosol SolutionUSE DIRECTED amLODIPine Besylate 10 MG Oral TabletTAKE 1 TABLET DAILY. Aspirin 81 MG Oral Tablet Delayed ReleaseTAKE 1 TABLET DAILY. Atorvastatin Calcium 40 MG Oral TabletTAKE 1 TABLET DAILY. Dicyclomine HCl - 10 MG Oral CapsuleTAKE 1 CAPSULE BEFORE EACH MEAL AND AT BEDTIME Isosorbide Mononitrate ER 30 MG Oral Tablet Extended Release 24 HourTAKE 1 TABLET DAILY. Losartan Potassium 100 MG Oral TabletTAKE 1 TABLET DAILY. Pantoprazole Sodium 40 MG Oral Tablet Delayed Release Spironolactone 25 MG Oral TabletTake 1 tablet daily Vitamin D 50 MCG (2000 UT) Oral TabletTake 1 tablet daily Allergies Medication No Known Drug Allergies Recorded By: Nae Méndez; 02/22/2021 8:14:24 AM Social History Problems Daily caffeine consumption tea and a dr. pepper Never a smoker No illicit drug use Rarely consumes alcohol (V49.89) (Z78.9) Review of Systems Constitutional: not feeling tired. Eyes: no eyesight problems. ENT: no hearing loss and no nosebleeds. Cardiovascular: no intermittent leg claudication and as noted in HPI. Respiratory: no chronic cough and no shortness of breath. Gastrointestinal: no change in bowel habits and no blood in stools. Genitourinary: no urinary frequency. Skin: no skin rashes. Neurological: no seizures and no frequent falls. Psychiatric: no depression and not suicidal. All other systems have been reviewed and are negative for complaint. Vitals Vital Signs Recorded: 07Jun2021 03:06PM Heart Rate60, L Brachial Artery Bjrorpyg211, LUE, Sitting Rqcdscfdo81, LUE, Sitting Height4 ft 11 in Dbyshv064 lb BMI Xeucdijdvw95.61 kg/m2 BSA Calculated1.41 Tobacco Useb) No PHQ-2 #1. Over the last 2 weeks have you felt down, depressed or hopeless? (If yes, answer PHQ-9 below)No PHQ-2 #2. Over the last 2 weeks have you felt little interest or pleasure in doing things? (If yes, answer PHQ-9 below)No Fall Screeninga) No falls within the last year Physical Exam Constitutional: alert and in no acute distress. Eyes: no erythema, swelling or discharge from the eye . Neck: neck is supple, symmetric, trachea midline, no masses and no thyromegaly . Pulmonary: no increased work of breathing or signs of respiratory distress and lungs clear to auscultation. Cardiovascular: carotid (more content not included)... Normal [facility] Tobacco Screening.on 022 Adult depression screening assessment No [facility] [address] DO Work Phone: Fall risk assessment a) No falls within the last year [facility] DO Work Phone: Tobacco use status [facility] b) No [facility] DO Work Phone: Tobacco Screening.on 021 Fall risk assessment a) No falls within the last year [facility] DO Work Phone: Tobacco use status CP b) No [facility] 250 DO Work Phone: No Panel Informationon 09-24 [facility] [address] DO Work Phone: [email or web address]} [facility] [address] DO Work Phone: [facility] [address] DO Work Phone: Order Reconciliationon 09-24 Order Reconciliation Page 1 Discharge Reconciliation Document Reconciliation Type: Discharge requested on behalf of Vilma Salazar (Physician) done by Vilma Salazar) Discharge - Reconciliation: 24-Sep-2020 08:58 by: Vilma Salazar) Home Medications EnteredHOME MEDICATIONS AT DISCHARGE DateReconciliation Comment/ Additional Information Albuterol (Eqv-ProAir HFA) 90 mcg/inh inhalation aerosol 2 puff(s) inhaled every 6 hours, As Needed 24-Sep-2020 07:54 Albuterol (Eqv-ProAir HFA) 90 mcg/inh inhalation aerosol 2 puff(s) inhaled every 6 hours, As Needed 24-Sep-2020 07:54 Albuterol (Eqv-ProAir HFA) 90 mcg/inh inhalation aerosol is continued as Albuterol (Eqv-ProAir HFA) 90 mcg/inh inhalation aerosol amLODIPine 10 mg oral tablet 1 tab(s) orally once a day 24-Sep-2020 07:56 amLODIPine 10 mg oral tablet 1 tab(s) orally once a day 24-Sep-2020 07:56 amLODIPine 10 mg oral tablet is continued as amLODIPine 10 mg oral tablet Aspir 81 oral delayed release tablet 1 tab(s) orally once a day 24-Sep-2020 07:56 Aspir 81 oral delayed release tablet 1 tab(s) orally once a day 24-Sep-2020 07:56 Aspir 81 oral delayed release tablet is continued as Aspir 81 oral delayed release tablet atorvastatin 40 mg oral tablet 1 tab(s) orally once a day 24-Sep-2020 07:56 atorvastatin 40 mg oral tablet 1 tab(s) orally once a day 24-Sep-2020 07:56 atorvastatin 40 mg oral tablet is continued as atorvastatin 40 mg oral tablet chlorthalidone 25 mg oral tablet 1/2 tab(s) orally once a day 24-Sep-2020 08:01 chlorthalidone 25 mg oral tablet 1/2 tab(s) orally once a day 24-Sep-2020 08:01 chlorthalidone 25 mg oral tablet is continued as chlorthalidone 25 mg oral tablet losartan 100 mg oral tablet 1 tab(s) orally once a day 24-Sep-2020 07:59 losartan 100 mg oral tablet 1 tab(s) orally once a day 24-Sep-2020 07:59 losartan 100 mg oral tablet is continued as losartan 100 mg oral tablet pantoprazole 40 mg oral delayed release tablet 1 tab(s) orally once a day 24-Sep-2020 07:59 pantoprazole 40 mg oral delayed release tablet 1 tab(s) orally once a day 24-Sep-2020 07:59 pantoprazole 40 mg oral delayed release tablet is continued as pantoprazole 40 mg oral delayed release tablet spironolactone 25 mg oral tablet 1 tab(s) orally once a day 24-Sep-2020 08:00 spironolactone 25 mg oral tablet 1 tab(s) orally once a day 24-Sep-2020 08:00 spironolactone 25 mg oral tablet is continued as spironolactone 25 mg oral tablet Symbicort 160 mcg-4.5 mcg/inh inhalation aerosol 2 puff(s) inhaled 2 times a day 24-Sep-2020 07:57 Symbicort 160 mcg-4.5 mcg/inh inhalation aerosol 2 puff(s) inhaled 2 times a day 24-Sep-2020 07:57 Symbicort 160 mcg-4.5 mcg/inh inhalation aerosol is continued as Symbicort 160 mcg-4.5 mcg/inh inhalation aerosol Vitamin D3 2000 intl units (50 mcg) oral capsule 1 cap(s) orally 24-Sep-2020 07:58 Vitamin D3 2000 intl units (50 mcg) oral capsule 1 cap(s) orally 24-Sep-2020 07:58 Vitamin D3 2000 intl units (50 mcg) oral capsule is continued as Vitamin D3 2000 intl units (50 mcg) oral capsule All Active Home Medications at time of Discharge Reconciliation: 24-Sep-2020 08:58 Albuterol (Eqv-ProAir HFA) 90 mcg/inh inhalation aerosol 2 puff(s) inhaled every 6 hours, As Needed amLODIPine 10 mg oral tablet 1 tab(s) orally once a day Aspir 81 oral delayed release tablet 1 tab(s) orally once a day atorvastatin 40 mg oral tablet 1 tab(s) orally once a day chlorthalidone 25 mg oral tablet 1/2 tab(s) orally once a day losartan 100 mg oral tablet 1 tab(s) orally once a day pantoprazole 40 mg oral delayed release tablet 1 tab(s) orally once a day spironolactone 25 mg oral tablet 1 tab(s) orally once a day Symbicort 160 mcg-4.5 mcg/inh inhalation aerosol 2 puff(s) inhaled 2 times a day Vitamin D3 2000 intl units (50 mcg) oral capsule 1 cap(s) orally Normal [facility] Coronavirus 2019 RNA by PCR, Screening Asymptomticon 09-21-2020 Coronavirus 2019 RNA by PCR, Screening Asymptomtic Not detected Normal See Below [facility] Work Phone: Comment on above: SOURCE: Nasal, Nasop haryngealReference Range: Not Detected.This assay is designed to detect the N, ORF1ab and/or S genes of SARS-CoV-2 via nucleic acid amplification. A Negative (NOT DETECTED) result does not preclude 2019-nCoV infection since the adequacy of sample collection and/or low viral burden may result in presence of viral nucleic acids below the clinical sensitivity of this test method. Negative (NOT DETECTED) result should not be used as the sole basis for treatment or other patient management decisions. Rather negative results should be combined with clinical observations, patient history, and epidemiological information to make patient management decisions.Fact sheet for providers: https://www.fda.gov/media/673382/downloadFact sheet for patients: https://www.fda.gov/media/873445/downloadThis test has received FDA Emergency Use Authorization (EUA) and has been verified by [facility] ([facility]). This test is only authorized for the duration of time that circumstances exist to justify the authorization of the emergency use of in vitro diagnostic tests for the detection of SARS-CoV-2 virus and/or diagnosis of COVID-19 infection under section 564(b)(1) of the Act, 21 U.S.C. 360bbb-3(b)(1), unless the authorization is terminated or revoked sooner. [facility] is certified under CLIA-88 as qualified to perform high complexity testing. Testing is performed in the [facility] [facility] laboratories located at [address] [place] [address]. ED NOTEon 04-08-2019 ED NOTE HNO ID: [id number] Author: Maria Teresa GarnicaRn) LINA Oliver Service: ? Author Type: Registered Nurse Type: ED Notes Filed: 04/08/2019 7:07 PM Note Text: Patient discharged per MD orders, RN at bedside to explain and review s/sx of worsening condition and to return to ED if worsening s/sx develop. Follow up care and questions answered with patient/family. [facility] ED NOTE HNO ID: [id number] Author: Lenore Laws) LINA Moyer Service: ? Author Type: Registered Nurse Type: ED Notes Filed: 04/08/2019 5:16 PM Note Text: Bed: ED-11H Expected date: Expected time: Means of arrival: Comments: [facility] ED NOTE HNO ID: [id number] Author: Maribell (MedicRebecca Guzman Service: ? Author Type: Double Needle Operator Lockstitch and Fish Boning Machine Feeder Type: ED Notes Filed: 04/08/2019 4:59 PM Note Text: Past 2 days left ear pain. Went to urgent care and her BP was high so sent here. [facility] ED PROV NOTEon 04-08-2019 ED PROV NOTE HNO ID: [id number] Author: Elenita Castillo Service: Emergency Medicine Author Type: Physician Business Information Analyst Type: ED Provider Notes Filed: 04/09/2019 3:31 PM Note Text: ED Provider Note Patient Name: Adina Perry SERVICE DATE: 04/08/19 History Patient presents with: Ear Pain Patient is a 78 year old female with history of HTN, HLD, asthma, GERD, CAD on aspirin presenting to the ED with left-sided ear and headache pain ?2 days. Patient feels that the pain is throughout the left side of her head and behind her ear. Pain is sharp, intermittent, and have been more persistent today. She took 3 ibuprofen earlier which helped. She thought it was an ear infection, went to an express care who was concerned about her high blood and sent her here. She has been taking her medications like normal. No history of this type of headaches. Denies thunderclap or worse headache of life. No hearing loss, tinnitus, ear discharge, fevers, chills, sweats, nausea or vomiting, neck pain or stiffness, dizziness, cold like symptoms, numbness or weakness of the extremities. History provided by: Patient medical information specialist used: No PAST MEDICAL HISTORY Diagnosis Date - Asthma - CAD (coronary artery disease) - Chronic cough due to asthma - Dyslipidemia - GERD (gastroesophageal reflux disease) - Hypertension - [place], old - MRSA infection - Myocarditis (HCC) PAST SURGICAL HISTORY Procedure Laterality Date - BACK SURGERY HX - CHOLECYSTECTOMY - COLONOSCOPY 2014 -was told she does not need anothe one-done in [place] - EGD 08/17/2018 /Jd - VALENTIN W/WO REMOVAL TUBE OVARY - TOTAL KNEE REPLACEMENT Right FAMILY HISTORY Problem Relation Age of Onset - Thyroid Mother smoker, at 92. - Cancer Sister lung-smoker - other (Other) Father chf, at 62 - other (Other) Brother cirrhosis Social History Tobacco Use - Smoking status: Never Smoker - Smokeless tobacco: Never Used Substance and Sexual Activity - Alcohol use: Yes Comment: social - Drug use: No - Sexual activity: Not on file ALLERGIES Allergen Reactions - Oxybutynin Other: See Comments Severe dry mouth Review of Systems Constitutional: Negative for chills, diaphoresis, fatigue and fever. HENT: Positive for ear pain. Negative for congestion, ear discharge, hearing loss, rhinorrhea, sore throat and trouble swallowing. Respiratory: Negative for cough. Cardiovascular: Negative for chest pain. Gastrointestinal: Negative for abdominal pain, constipation, diarrhea, nausea and vomiting. Genitourinary: Negative for difficulty urinating and dysuria. Musculoskeletal: Negative for arthralgias, myalgias, neck pain and neck stiffness. Skin: Negative for color change and pallor. Neurological: Positive for headaches. Negative for dizziness, syncope, weakness and light-headedness. Psychiatric/Behavioral: Negative for confusion. Physical Exam BP 186/60 Pulse 57 Temp (Src) 98.6 (Oral) Resp 17 Ht 5' 0 (1.52m) Wt 127 lb (57.6kg) SpO2 95% BMI 24.80 kg/(m2). Physical Exam Vitals signs and nursing note reviewed. Constitutional: General: She is not in acute distress. Appearance: Normal appearance. She is normal weight. She is not ill-appearing, toxic-appearing or diaphoretic. HENT: Head: Normocephalic. Right Ear: Hearing, tympanic membrane, ear canal and external ear normal. Left Ear: Hearing, tympanic membrane, ear canal and external ear normal. Ears: Comments: Normal left ear TM, middle ear canal, external ear, mastoid without any tenderness, swelling, discoloration No scalp, head, neck tenderness No rashes or wounds Nose: Nose normal. Mouth/Throat: Lips: [place]. Mouth: Mucous membranes are moist. Pharynx: Oropharynx is clear. Uvula midline. Tonsils: No tonsillar exudate. Eyes: Extraocular Movements: Extraocular movements intact. Pupils: Pupils are equal, round, and reactive to light. Neck: Musculoskeletal: Full passive range of motion without pain, normal range of motion and neck supple. Comments: No nuchal rigidity Cardiovascular: Rate and Rhythm: Normal rate and regular rhythm. Pulses: Normal pulses. Heart sounds: Normal heart sounds. Pulmonary: Effort: Pulmonary effort is normal. No respiratory distress. Breath sounds: Normal breath sounds. Abdominal: General: Abdomen is flat. Bowel sounds are normal. There is no distension. Tenderness: There is no abdominal tenderness. Musculoskeletal: Normal range of motion. Skin: General: Skin is warm and dry. Capillary Refill: Capillary refill takes less than 2 seconds. Neurological: General: No focal deficit present. Mental Status: She is alert and oriented to person, place, and time. GCS: GCS eye subscore is 4. GCS verbal subscore is 5. GCS motor subscore is 6. Cranial Nerves: Cranial nerves are intact. Sensory: Sensation is intact. Motor: Motor function is intact. Coordination: Coordination is intact. Gait: Gait is intact. Comments: Alert, oriented ?3 Cranial nerves intact Sensation and strength intact in upper and lower extremities Normal finger to nose coordination Normal ambulation with steady gait Psychiatric: Mood and Affect: Mood normal. Behavior: Behavior normal. Diagnostic Testing ED Labs Ordered and Reviewed - No data to display No orders to display Medications predniSONE 60 mg tab(s) (DELTASONE) (60 mg ORAL Given 04/08/191900) Procedures ED Course / Clinical Impression Clinical Impressions as of Apr 09 1530 Occipital neuralgia of left side MDM / Disposition / Plan Patient is a 78 year old female with history of HTN, HLD, asthma, GERD, CAD on aspirin presenting to the ED with left-sided ear and headache pain ?2 days. Sharp, intermittent. Ibuprofen helped. Express care sent her here for montoya AND HTN. Denies thunderclap or worse headache of life. Afebrile, stable, no severe distress, nontoxic-appearing. Patient's blood pressure is around 185/60-70. Alert, oriented, acting appropriately. Patient does not have any signs of urgency or emergency. Patient's headache is not consistent with acute intracranial hemorrhage. No neurological deficits, meningeal signs. No need for any imaging. No signs of urgency or emergency. Blood pressure remained stable. I believe patient's discomfort is causing her blood pressure to elevate slightly. She'll continue blood pressure medications and discuss this with her doctor if blood pressure remains high. Presentation is concerning for occipital neuralgia. Patient remains stable and comfortable here with occasional sharp pains. She did not want anything moer for pain at the moment. Given dose of oral prednisone. I advised to continue with ibuprofen at home. I'll prescribe prednisone and baclofen to take as needed. Risks described and she is understanding. She will not drive if she takes the baclofen. I advised to follow-up with neurology she may need a nerve block or steroid injection in this area. Appointment made for later on this month. Reasons to return discussed. Plan is to discharge. Discharge home with prescriptions for prednisone 60 mg for 5 days, baclofen. Follow up with neurology as scheduled. Return if symptoms worsen, new symptoms arise (fevers, vomiting, weakness, dizziness, confusion). Patient expressed understanding and consented to the above plan. No barriers of communication were apparent and I answered all questions. Condition at time of disposition: stable SIGNATURE: STEVIE Solano Pa-C 04/09/19 1531 Normal [facility] Vital Signs Date Time Vital Sign Value Performing Clinician Facility 02-11-2023 09:05-0500 Body height 152.4 cm Eliecer Gray Other [employer] Other 02-11-2023 09:05-0500 Body mass index (BMI) [Ratio] 20.5 kg/m2 Eliecer Gray Other [employer] Other 02-11-2023 09:05-0500 Body temperature 97.7 [degF] Eliecer Gray Other [employer] Other 02-11-2023 09:05-0500 Body weight 47.63 kg Eliecer Gray Other [employer] Other 02-11-2023 09:05-0500 Diastolic blood pressure 93 mm[Hg] Eliecer Gray Other [employer] Other 02-11-2023 09:05-0500 Respiratory rate 18 /min Eliecer Gray Other [employer] Other 02-11-2023 09:05-0500 SaO2% (BldA) [Mass fraction] 97 % Eliecer Gray Other [employer] Other 02-11-2023 09:05-0500 Systolic blood pressure 166 mm[Hg] Eliecer Gray Other [employer] Other 02-02-2023 11:06-0400 Body height 142.2 cm Nick Wasserman MD Work Phone: [facility] 02-02-2023 11:06-0400 Body mass index (BMI) [Ratio] 24.21 kg/m2 Nick Wasserman MD Work Phone: [facility] 02-02-2023 11:06-0400 Body weight 48.99 kg Nick Wasserman MD Work Phone: [facility] 02-02-2023 11:06-0400 Diastolic blood pressure 58 mm[Hg] Nick Wasserman MD Work Phone: [facility] 02-02-2023 11:06-0400 Heart rate 60 /min Nick Wasserman MD Work Phone: [facility] 02-02-2023 11:06-0400 Systolic blood pressure 138 mm[Hg] Nick Wasserman MD Work Phone: [facility] 08-30-2022 10:55-0400 Body height 152.4 cm Luis Nolasco Other [employer] Other 08-30-2022 10:55-0400 Body mass index (BMI) [Ratio] 20.7 kg/m2 Luis Nolasco Other [employer] Other 08-30-2022 10:55-0400 Body temperature 97.8 [degF] Luis Nolasco Other [employer] Other 08-30-2022 10:55-0400 Body weight 48.08 kg Luis Nolasco Other [employer] Other 08-30-2022 10:55-0400 Diastolic blood pressure 70 mm[Hg] Luis Nolasco Other [employer] Other 08-30-2022 10:55-0400 Respiratory rate 18 /min Luis Nolasco Other [employer] Other 08-30-2022 10:55-0400 SaO2% (BldA) [Mass fraction] 97 % Luis Nolasco Other [employer] Other 08-30-2022 10:55-0400 Systolic blood pressure 123 mm[Hg] Luis Nolasco Other [employer] Other 03-06-2022 15:48-0500 Diastolic blood pressure 72 mm[Hg] Adriana Murphy Tirado-Rougon Work Phone: [facility] [employer] 250 DO Work Phone: 03-06-2022 15:48-0500 Systolic blood pressure 136 mm[Hg] Adriana Murphy Tirado-Rougon Work Phone: [facility] [employer] 250 DO Work Phone: 03-06-2022 15:25-0500 Body height 144.78 cm Adriana D Tirado-Rougon Work Phone: [facility] 250 DO Work Phone: 03-06-2022 15:25-0500 Body mass index (BMI) [Ratio] 23.37 kg/m2 Adriana D Tirado-Rougon Work Phone: [facility] [employer] 250 DO Work Phone: 03-06-2022 15:25-0500 Body surface area Derived from formula 1.38 m2 Adriana Murphy Tirado-Rougon Work Phone: [facility] 250 DO Work Phone: 03-06-2022 15:25-0500 Body weight 48.99 kg Adriana Murphy Tirado-Rougon Work Phone: [facility] 250 DO Work Phone: 03-06-2022 15:25-0500 Diastolic blood pressure 64 mm[Hg] Adriana Murphy Tirado-Rougon Work Phone: [facility] 250 DO Work Phone: 03-06-2022 15:25-0500 Heart rate 66 /min Adriana Murphy Tirado-Rougon Work Phone: [facility] 250 DO Work Phone: 03-06-2022 15:25-0500 Systolic blood pressure 154 mm[Hg] Adriana Murphy Tirado-Rougon Work Phone: [facility] 250 DO Work Phone: 01-17-2022 10:25-0400 Diastolic blood pressure 81 mm[Hg] Govea SALAM [facility] 01-17-2022 10:25-0400 Heart rate 55 /min Govea SALAM [facility] 01-17-2022 10:25-0400 Respiratory rate 14 /min Govea SALAM [facility] 01-17-2022 10:25-0400 SaO2% (BldA) [Mass fraction] 98 % Govea SALAM [facility] 01-17-2022 10:25-0400 Systolic blood pressure 158 mm[Hg] Govea SALAM [facility] 01-17-2022 10:10-0400 Diastolic blood pressure 64 mm[Hg] Govea SALAM [facility] 01-17-2022 10:10-0400 Heart rate 56 /min Govea SALAM [facility] 01-17-2022 10:10-0400 Respiratory rate 14 /min Govea SALAM [facility] 01-17-2022 10:10-0400 SaO2% (BldA) [Mass fraction] 100 % Govea SALAM [facility] 01-17-2022 10:10-0400 Systolic blood pressure 141 mm[Hg] Govea SALAM [facility] 01-17-2022 10:05-0400 Diastolic blood pressure 60 mm[Hg] Govea SALAM [facility] 01-17-2022 10:05-0400 Heart rate 57 /min Govea SALAM [facility] 01-17-2022 10:05-0400 Respiratory rate 14 /min Govea SALAM [facility] 01-17-2022 10:05-0400 SaO2% (BldA) [Mass fraction] 98 % Govea SALAM [facility] 01-17-2022 10:05-0400 Systolic blood pressure 131 mm[Hg] Govea SALAM [facility] 01-17-2022 09:56-0400 Body temperature 96.98 [degF] Govea SALAM [facility] 01-17-2022 07:50-0400 Blood Pressure Location Govea SALAM [facility] 01-17-2022 07:50-0400 Body temperature 98.06 [degF] Govea JUNEAM [facility] 01-10-2022 10:48-0400 Diastolic blood pressure 64 mm[Hg] Shi Sundeep [facility] 01-10-2022 10:48-0400 Mean blood pressure 95 mm[Hg] Shi Sundeep [facility] 01-10-2022 10:48-0400 Systolic blood pressure 158 mm[Hg] Shi Sundeep [facility] 01-10-2022 10:44-0400 Blood Pressure Location Shi Sundeep [facility] 01-10-2022 10:44-0400 Body temperature 97.34 [degF] Shi Sundeep [facility] 01-10-2022 10:44-0400 Diastolic blood pressure 73 mm[Hg] Shi Sundeep [facility] 01-10-2022 10:44-0400 Heart rate 51 /min Shi Sundeep [facility] 01-10-2022 10:44-0400 Systolic blood pressure 167 mm[Hg] Shi Sundeep [facility] 11-13-2021 00:00-0400 Diastolic blood pressure 68 mm[Hg] DO Adriana Tirado-Rougon Work Phone: [facility] 11-13-2021 00:00-0400 Heart rate 62 /min DO Adriana Tirado-Rougon Work Phone: [facility] 11-13-2021 00:00-0400 Respiratory rate 18 /min DO Adriana Tirado-Rougon Work Phone: [facility] 11-13-2021 00:00-0400 SaO2% (BldA) [Mass fraction] 100 % DO Adriana Tirado-Rougon Work Phone: [facility] 11-13-2021 00:00-0400 Systolic blood pressure 133 mm[Hg] DO Adriana Tirado-Rougon Work Phone: [facility] 11-12-2021 18:52-0400 Body height 144.78 cm DO Adriana Tirado-Rougon Work Phone: [facility] 11-12-2021 18:52-0400 Body temperature 98.1 [degF] DO Adriana Tirado-Rougon Work Phone: [facility] 11-12-2021 18:52-0400 Body weight 45.35 kg DO Adriana Tirado-Rougon Work Phone: [facility] 08-29-2021 10:00-0400 Body height 152.4 cm [employer] Other [employer] [facility] [employer] Other 08-29-2021 10:00-0400 Body mass index (BMI) [Ratio] 20.5 kg/m2 [employer] Other [employer] Other 08-29-2021 10:00-0400 Body weight 47.63 kg [employer] Other [employer] Other 08-28-2021 00:00-0400 65 1 Adriana Murphy Tirado-Rougon Work Phone: [facility] 250 DO Work Phone: Comment on above: [id number] 08-25-2021 12:25-0400 Body height 152.4 cm Eliecer Gray Other [facility] [employer] Other 08-25-2021 12:25-0400 Body mass index (BMI) [Ratio] 20.5 kg/m2 Eliecer Gray Other [employer] Other 08-25-2021 12:25-0400 Body temperature 97 [degF] Eliecer Gray Other [employer] Other 08-25-2021 12:25-0400 Body weight 47.63 kg Eliecer Gray Other [employer] Other 08-25-2021 12:25-0400 Diastolic blood pressure 67 mm[Hg] Eliecer Gray Other [employer] Other 08-25-2021 12:25-0400 Respiratory rate 16 /min Eliecer Gray Other [employer] Other 08-25-2021 12:25-0400 SaO2% (BldA) [Mass fraction] 96 % Eliecer Gray Other [employer] Other 08-25-2021 12:25-0400 Systolic blood pressure 141 mm[Hg] Eliecer Gray Other [employer] Other 06-07-2021 15:06-0500 Body height 149.86 cm Adriana Katherine Tirado-Rougon Work Phone: [facility] [employer] 250 DO Work Phone: 06-07-2021 15:06-0500 Body mass index (BMI) [Ratio] 21.61 kg/m2 Adriana Katherine Tirado-Rougon Work Phone: [facility] [employer] [facility] DO Work Phone: 06-07-2021 15:06-0500 Body surface area Derived from formula 1.41 m2 Adriana Murphy Tirado-Rougon Work Phone: [facility] 250 DO Work Phone: 06-07-2021 15:06-0500 Body weight 48.54 kg Adriana D Tirado-Rougon Work Phone: [facility] 250 DO Work Phone: 06-07-2021 15:06-0500 Diastolic blood pressure 62 mm[Hg] Adriana Murphy [employer]ado-Rougon Work Phone: [facility] 250 DO Work Phone: 06-07-2021 15:06-0500 Heart rate 60 /min Adriana Murphy Tirado-Rougon Work Phone: [facility] 250 DO Work Phone: 06-07-2021 15:06-0500 Systolic blood pressure 125 mm[Hg] Adriana Murphy Tirado-Rougon Work Phone: [facility] 250 DO Work Phone: 03-05-2021 10:47-0500 Body height 149.86 cm Adriana Murphy Tirado-Rougon Work Phone: [facility] 250 DO Work Phone: 03-05-2021 10:47-0500 Body mass index (BMI) [Ratio] 22.02 kg/m2 Adriana Murphy Tirado-Rougon Work Phone: [facility] 250 DO Work Phone: 03-05-2021 10:47-0500 Body surface area Derived from formula 1.42 m2 Adriana Katherine Tirado-Rougon Work Phone: [facility] 250 DO Work Phone: 03-05-2021 10:47-0500 Body weight 49.44 kg Adriana Murphy Tirado-Rougon Work Phone: [facility] 250 DO Work Phone: 03-05-2021 10:47-0500 Diastolic blood pressure 66 mm[Hg] Adriana D Tirado-Rougon Work Phone: [facility] 250 DO Work Phone: 03-05-2021 10:47-0500 Heart rate 59 /min Adriana D Tirado-Rougon Work Phone: [facility] 250 DO Work Phone: 03-05-2021 10:47-0500 Systolic blood pressure 127 mm[Hg] Adriana Murphy Tirado-Rougon Work Phone: [facility] 250 DO Work Phone: Encounters Encounter Date Encounter Type Care Provider Facility Start: 03-04-2023 End: 03-04-2023 ambulatory SHREYA D DOLCE Not Available Start: 02-18-2023 End: 02-18-2023 ambulatory ADRIANA D TIRADO-EMERY Not Available Start: 02-11-2023 Office outpatient vi sit 15 minutes Eliecer Gray [facility] Start: 02-11-2023 End: 02-11-2023 ambulatory Eliecer Gray Facility:[facility] Start: 02-11-2023 End: 02-11-2023 ambulatory DO Adriana Tirado-Rougon Work Phone: [facility] Work Phone: Start: 02-11-2023 End: 02-11-2023 Departed Referred DO Adriana Tirado-Rougon Work Phone: [facility] 250 Start: 02-02-2023 End: 02-02-2023 ambulatory Adriana Tirdao-Rougon Facility:[facility] Start: 02-02-2023 End: 02-02-2023 ambulatory DO Adriana Tirado-Rougon Work Phone: [facility] Work Phone: Start: 02-02-2023 End: 02-02-2023 Patient encounter procedure DO Adriana Tirado-Rougon Work Phone: [facility] [place] Work Phone: Start: 02-02-2023 End: 02-02-2023 Office outpatient visit 25 minutes Nick Wasserman MD Work Phone: [facility] Comment on above: 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); Essential hypertension, benign; Mixed hyperlipidemia; Nonischemic cardiomyopathy (CMS/HCC) Start: 12-18-2022 End: 12-18-2022 ambulatory Savanna Cassidy Other [employer] Other Start: 12-18-2022 Office outpatient vi sit 15 minutes Savanna Cassidy [facility] Start: 08-30-2022 End: 08-30-2022 ambulatory Luis Nolasco Other [employer] Other Start: 08-30-2022 Office outpatient vi sit 15 minutes Luis Nolasco [facility] Start: 05-14-2022 Chart Update Adriana Changaver-Rougon Work Phone: [facility] 250 DO Work Phone: Start: 03-06-2022 Office outpatient vi sit 15 minutes Adriana Tirado-Rougon Work Phone: [facility] 250 DO Work Phone: Start: 03-06-2022 ambulatory Nick Wasserman II Facility: Start: 03-03-2022 End: 03-04-2022 ambulatory Jay Power Facility:[facility] Start: 02-25-2022 ambulatory Adriana Cruz Facility: Start: 02-24-2022 End: 02-25-2022 ambulatory Jay Lock Keibrahima [facility] Start: 02-19-2022 End: 02-19-2022 ambulatory Jay Amlanzar. Kefaisaly Facility:[facility] Start: 02-04-2022 ambulatory Adriana Billie Tirado-Rougon Facility: Start: 02-04-2022 End: 02-05-2022 ambulatory Jay JenelleMerrill Keibrahima [facility] Start: 02-03-2022 End: 02-04-2022 ambulatory Jay Power Facility: Trail Start: 01-17-2022 End: 01-18-2022 ambulatory Jeferson COPE Facility:[facility] Start: 01-17-2022 End: 01-17-2022 Patient encounter procedure Jeferson COPE [facility] Start: 01-13-2022 End: 01-14-2022 ambulatory Shi Urbano Facility:[facility] Start: 01-10-2022 End: 01-11-2022 ambulatory Shi Urbano Facility:[facility] Start: 01-10-2022 End: 01-11-2022 ambulatory Shi Urbano Facility:[facility] Start: 01-10-2022 Rx Renewal Adriana Cruz Work Phone: [facility] 250 DO Work Phone: Start: 01-10-2022 End: 01-10-2022 Patient encounter procedure Shi Urbano [facility] Start: 12-24-2021 ambulatory Adriana Cruz Facility: Start: 11-14-2021 ambulatory Shi Urbano Facili ty:[facility] Start: 11-12-2021 End: 11-13-2021 Emergency department patient visit DO Adriana Tirado-Iván Work Phone: [facility] Start: 08-30-2021 Chart Update Adriana D Tirado-Rougon Work Phone: [facility] 250 DO Work Phone: Start: 08-29-2021 End: 08-29-2021 ambulatory Clement Chocorua II Other [employer] Other Start: 08-29-2021 Office outpatient ne w 45 minutes Clement Chocorua II [facility] Start: 08-28-2021 ambulatory Adriana Billie Tirado-Rougon Facility:[id number] Start: 08-25-2021 End: 08-25-2021 ambulatory Eliecer Gray Other [facility] [employer] Other Start: 08-25-2021 Office outpatient vi sit 15 minutes Eliecer Gray [facility] Start: 08-08-2021 Patient encounter procedure Adriana D Tirado-Rougon Work Phone: [facility] 600 DO Work Phone: Start: 06-07-2021 Office outpatient vi sit 25 minutes Adriana D Tirado-Rougon Work Phone: [facility] 250 DO Work Phone: Start: 06-07-2021 ambulatory Adriana Billie Tirado-Rougon Facility: Start: 03-05-2021 Office outpatient vi sit 25 minutes Adriana D Tirado-Rougon Work Phone: [facility] 250 DO Work Phone: Start: 09-28-2020 Chart Update Adriana D Tirado-Rougon Work Phone: [facility] [place] [facility] 450 DO Work Phone: Start: 09-24-2020 EUSANS, Provider: Vilma Salazar, Status: Pen, Time: 9:20 AM Adriana D Tirado-Rougon Work Phone: IC-Hmdrygdtrjmegckc-Db [place] S[place]W 450 DO Work Phone: Start: 09-23-2020 Chart Update Adriana Tirado-Rougon Work Phone: OI-Rniufcdpifiqmata-Tj [facility] SJW 450 DO Work Phone: Procedures Date Procedure Procedure Detail Performing Clinician Start: 01-17-2022 Colonoscopy Jeferson COPE Comment on above: biopsies, diverticulosis Start: 11-12-2021 Computed tomography of abdomen and pelvis with contrast DO Adriana Tirado-Iván Work Phone: Start: 07-06-2020 Esophagogastroduodenoscopy Shi diana Comment on above: Dr Clovis Edge of knee Adriana Tirado-Rougon Work Phone: Cholecystectomy Adriana Tirado-Rougon Work Phone: Colonoscopy Shi Urbano Comment on above: 2010 Esophagogastroduodenoscopy M taylor COPE Comment on above: normal, gastric biopsies Hysterectomy Adriana Tirado-Rougon Work Phone: Operation on bladder Adriana Tirado-Rougon Work Phone: Procedure on back Adriana Tirado-Rougon Work Phone: SARS Antigen (LFIA) DO Maximus a Tirado-Rougon Work Phone: Total colonoscopy Adriana Tirado-Rougon Work Phone: Urine culture DO Adriana Tirado-Rougon Work Phone: Plan of Treatment Date Care Activity Detail Author Start: 09-15-2023 End: 09-15-2023 Patient encounter procedure 09/15/2023 9:30 AM EDT Office Visit [facility] [address] [facility] [address] [place] [address] Nick Wasserman MD [address] [facility] [address], [address] [place] [address] [facility] Start: 02-11-2023 Bacteria identified in Urine by Culture [facility] Start: 02-02-2023 End: 02-03-2024 Basic metabolic 2000 panel - Serum or Plasma Basic Metabolic Panel Lab Routine Nonischemic cardiomyopathy (CMS/HCC) Expected: 02/02/2023 (Approximate), Expires: 02/03/2024 [facility] Service Area Work Phone: Comment on above: Expected: 02/02/2023 (Approximate), Expires: 02/03/2024 Start: 02-02-2023 End: 02-03-2024 CBC panel - Blood by Automated count CBC Lab Routine Nonischemic cardiomyopathy (CMS/HCC) Expected: 02/02/2023 (Approximate), Expires: 02/03/2024 [facility] Work Phone: Comment on above: Expected: 02/02/2023 (Approximate), Expires: 02/03/2024 Start: 02-02-2023 End: 02-03-2024 Lipid 1996 panel - Serum or Plasma Lipid Panel Lab Routine Mixed hyperlipidemia Expected: 02/02/2023 (Approximate), Expires: 02/03/2024 [facility] Work Phone: Comment on above: Expected: 02/02/2023 (Approximate), Expires: 02/03/2024 Start: 10-28-2022 FUV, Provider: Nick Wasserman, Status: Pen, Time: 9:40 AM FUV, Provider: Nick Wasserman, Status: Pen, Time: 9:40 AM [facility] 250 DO Work Phone: Start: 03-06-2022 FUV, Provider: Nick Wasserman, Status: Pen, Time: 3:10 PM FUV, Provider: Nick Wasserman, Status: Pen, Time: 3:10 PM [facility] 250 DO Work Phone: Start: 02-25-2022 COVID-19 Vaccine (4 - Moderna series) COVID-19 Vaccine (4 - Moderna series) [facility] Start: 12-24-2021 FUV, Provider: Nick Wasserman, Status: Pen, Time: 11:20 AM FUV, Provider: Nick Wasserman, Status: Pen, Time: 11:20 AM -[facility] 250 DO Work Phone: Start: 08-28-2021 STRESS NUC, Provider : MARI HHVI NUCLEAR 01,[id number], Status: Pen, Time: 12:00 PM STRESS NUC, Provider: MARI HHVI NUCLEAR 01,[id number], Status: Pen, Time: 12:00 PM -[facility] 600 DO Work Phone: Start: 06-07-2021 FUV, Provider: Nick Wasserman, Status: Pen, Time: 3:10 PM FUV, Provider: Nick Wasserman, Status: Pen, Time: 3:10 PM -[facility] 250 DO Work Phone: Start: 11-23-2020 VIRNPVFELICIANOE, Provider : Estefanía Iyer, Status: Pen, Time: 9:30 AM VIRNPVFELICIANOE, Provider: Estefanía Iyer, Status: Pen, Time: 9:30 AM [facility] [place] [facility] 450 DO Work Phone: Start: 1964 DTaP/Tdap/Td Vaccine s (1 - Tdap) DTaP/Tdap/Td Vaccines (1 - Tdap) [facility] Start: 1940 Lipid panel Lipid Panel [facility] Start: 1940 Medicare Annual Wellness Visit Medicare Annual Wellness Visit (AWV) [facility] Start: 1940 Screening for osteoporosis Bone Density Scan [facility] Patient Education Dehydration, Adult (DC) [facility] Work Phone: Patient referral [facility] Work Phone: Immunizations Immunization Date Immunization Notes Care Provider Fa ciliharry 01-16-2023 Influenza, Seasonal, Quadrivalent, Adjuvanted Nick Wasserman MD Work Phone: [facility] 01-11-2022 Fluzone High-Dose Quadrivalent 0.7 ML Intramuscular Suspension Prefilled Syringe Adriana Katherine Candida-Iván Work Phone: [facility] 250 DO Work Phone: 12-31-2021 Pfizer COVID-19 Vac Bivalent 30 MCG/0.3ML Intramuscular Suspension Adriana Katherine Tirado-Rougon Work Phone: [facility] DO Work Phone: 10-18-2021 Prevnar 20 0.5 ML Intramuscular Suspension Prefilled Syringe Adriana Katherine Luis A Work Phone: [facility] Work Phone: 04-03-2021 Moderna COVID-19 Vaccine 100 MCG/0.5ML Intramuscular Suspension Adriana Murphy TiradoClinkedRougon Work Phone: [facility] DO Work Phone: 02-26-2021 influenza, high dose seasonal, preservative-free Adriana Cruz Work Phone: [facility] DO Work Phone: 05-30-2020 Moderna COVID-19 Vaccine 100 MCG/0.5ML Intramuscular Suspension Adriana Katherine Tirado-Rougon Work Phone: [facility] Comment on above: Reason for Medicatio n: Other (see comment) 05-07-2020 Moderna SARS-CoV-2 Vaccination Nick Wasserman MD Work Phone: [facility] Work Phone: 05-02-2020 Moderna COVID-19 Vaccine 100 MCG/0.5ML Intramuscular Suspension Adriana Katherine Tirado-Rougon Work Phone: [facility] Comment on above: Reason for Medicatio n: Other (see comment) 04-02-2020 zoster vaccine recombinant Adriana Cruz Work Phone: [facility] 250 DO Work Phone: 02-01-2020 zoster vaccine recombinant Adriana Cruz Work Phone: [facility] 12-30-2019 Fluzone High-Dose Quadrivalent 0.7 ML Intramuscular Suspension Prefilled Syringe Adriana Cruz Work Phone: [facility] 01-04-2019 influenza, high dose seasonal, preservative-free Adriana Katherine Tirado-Iván Work Phone: [facility] 12-18-2017 influenza, high dose seasonal, preservative-free Adriana Katherine Cruz Work Phone: [facility] NEGATED: Highlighted row has not occurred!01-10-2022 influenza virus vaccine, unspecified formulation Shi Urbano [facility] Health Payers Date Payer Category Payer Self-pay [id number] 2022 Medicare HUMANA MEDICARE HUMANA GOLD CHOICE [id number] 2022-Present [address] [address] [place] [address] [id number] 2020 Private Health Insurance [id number] 2.16.840.1.167500.19 2019 Unknown 2019 Unknown [id number] 2.16.840.1.055553.19 1942 Unknown [id number] 2.16.840.1.233277.3.579.2 .727 1942 Unknown [id number] 2.16.840.1.097987.3.579.2 .727 1942 Unknown [id number] 2.16.840.1.771070.3.579.2 .727 1942 Unknown [id number] 2.16.840.1.402756.3.579.2 .727 1942 Unknown [id number] 2.16.840.1.229299.3.579.2 .727 1942 Unknown [id number] 2.16.840.1.753332.3.579.2 .727 1942 Unknown [id number] 2.16.840.1.600278.3.579.2 .72 1942 Unknown [id number] 2.16.840.1.631290.3.579.2 .72 1942 Unknown [id number] 2.16.840.1.548129.3.579.2 .72 1942 Unknown [id number] 2.16.840.1.798717.3.579.2 .72 1942 Unknown [id number] 2.16.840.1.369701.3.579.2 .356 1942 Unknown [id number] 2.16.840.1.444021.3.579.2 .356 1942 Unknown [id number] 2.16.840.1.312069.3.579.2 .356 1942 Unknown [id number] 2.16.840.1.653868.3.579.2 .356 1942 Unknown [id number] 2.16.840.1.568280.3.579.2 .356 1942 Unknown [id number] 2.16.840.1.916088.3.579.2 .356 1942 Unknown [id number] 2.16.840.1.247241.3.579.2 .1244 1942 Unknown [id number] 2.16.840.1.410532.3.579.2 .1259 1942 Unknown [id number] 2.16.840.1.248363.3.579.2 .1259 Medicare [id number] Medicare Medicare [id number] Unknown [id number] 2.16.840.1.540308.3.579.2 .531 Unknown [id number] 2.16.840.1.357254.3.579.2 .531 Social History Date Type Detail Facility Start: 02-02-2023 Daily caffeine consumption Daily caffeine consumption -[facility] 250 DO Work Phone: Comment on above: tea and a dr. dunbar ; Start: 02-02-2023 [facility] Other Start: 11-12-2021 End: 11-12-2021 Tobacco smoking status NHIS Never smoked tobacco (finding) [facility] Start: 1940 Sex Assigned At Female F [facility] Tobacco smoking status Never [facility] Start: 02-02-2023 Tobacco use and exposure Smokeless tobacco non-user [facility] Work Phone: Start: 02-02-2023 Alcohol intake Lifetime non-d arcelia (finding) [facility] Work Phone: Start: 1940 Sex Assigned At Not on file U [facility] Work Phone: Start: 01-23-2023 End: 02-02-2023 Exposure to SARS-CoV-2 (event) Not sure [facility] Functional Status Date Assessment Result Facility 01-17-2022 Functional Status N/A [facility] 01-10-2022 Functional Status N/A [facility] Clinical Notes 08-25-2021 to 02-11-2023 Note Date & Type Note Facility 02-11-2023 Evaluation note Encounter Date Diagnosis Assessment Notes Feb, Urinary frequency (ICD-10 - R35.0) Feb, Acute cystitis with hematuria (ICD-10 - N30.01) Take medication as directed. Urine analysis shows abnormalities today in office. Urine culture will be sent to lab. Will call with results if warranted. Increase fluid intake. Follow hygiene guidelines such as wiping front to back, avoid using perfumed lotions, bath beads, bubble bath. Recommend follow up with primary care provider after treatment completed to make sure infection has cleared. Feb, Thrombophlebitis (ICD-10 - I80.9) Superficial thrombophlebitis home care material was printed. No evidence of DVT as it is reassuring that patient's calfs are not TTP and there is no edema. Advised to use nasaids as needed and keep the leg elevated. Will provide coverage with cephalosporin in case there is a bacterial etiology. Educated about red flag symptoms to watch out for and if she does develop red flag symptoms, then she is to go to the ER. She understands and agrees with the plan. [employer] Other 10-30-2023 History of Present illness Narrative* Nick Wasserman MD - 02/02/2023 11:00 AM EDT Subjective Adina Perry is a 82 y.o. female Chief Complaint Follow-up HPI Patient returns in follow-up of problems as noted. In the interim she is done very well. She recently has developed subjective shortness of breath. Significant discussion ensued. She still cleaning the house, changing bed sheets, running the sweeper and working in the yard. She states she does not h ave any shortness of breath or chest pain with these activities. Though at times she feels short of breath is when she is talking or going up a flight of stairs. Advised her that in these circumstances I would deem her shortness of breath to be situational and not on the basis of coronary diseaseheart disease or heart failure. The fact that she can do all the aerobic activities without symptoms is very positive. A flight of stairs makes most people short of breath and shortness of breath andconversation is more subjective than objective. After discussing and explaining this in great detail she concurs We discussed cardiac signs and symptoms of coronary disease to watch for and she denies such symptoms. Likewise I cannot elicit any heart failure symptoms per se. Review of Systems Respiratory: Positive for shortness of breath. All other systems reviewed and are negative. Visit Vitals BP 138/58 (BP Location: Right arm, Patient Position: Sitting) Pulse 60 Ht 1.422 m (4' 8 ) Wt 49 kg (108 lb) BMI 24.21 kg/m Smoking Status Never BSA 1.39 m Objective Physical Exam Constitutional: Appearance: Normal appearance. She is normal weight. HENT: Nose: Nose normal. Neck: Vascular: No carotid bruit. Cardiovascular: Rate and Rhythm: Normal rate. Pulses: Normal pulses. Heart sounds: Normal heart sounds. Pulmonary: Effort: Pulmonary effort is normal. Abdominal: General: Bowel sounds are normal. Palpations: Abdomen is soft. Genitourinary: Rectum: Normal. Musculoskeletal: General: Normal range of motion. Cervical back: Normal range of motion. Right lower leg: No edema. Left lower leg: No edema. Skin: General: Skin is warm and dry. Neurological: General: No focal deficit present. Mental Status: She is alert. Psychiatric: Mood and Affect: Mood normal. Behavior: Behavior normal. Thought Content: Thought content normal. Judgment: Judgment normal. Current Medications Current Outpatient Medications: amLODIPine (Norvasc) 10 mg tablet, Take 1 tablet (10 mg) by mouth once daily., Disp: , Rfl: aspirin 81 mg EC tablet, Take 1 tablet (81 mg) by mouth once daily., Disp: , Rfl: atorvastatin (Lipitor) 40 mg tablet, Take 1 tablet (40 mg) by mouth once daily., Disp: , Rfl: chlorthalidone (Hygroton) 25 mg tablet, Take 0.5 tablets (12.5 mg) by mouth once daily., Disp: , Rfl: cholecalciferol (Vitamin D-3) 50 MCG (2000 UT) tablet, Take 1 tablet (2,000 Units) by mouth once daily., Disp: , Rfl: dicyclomine (Bentyl) 10 mg capsule, Take 1 capsule (10 mg) by mouth. BEFORE EACH MEAL AND AT BEDTIME, Disp: , Rfl: losartan (Cozaar) 100 mg tablet, Take 1 tablet (100 mg) by mouth once daily., Disp: , Rfl: pantoprazole (ProtoNix) 40 mg EC tablet, Pantoprazole Sodium 40 MG Oral Tablet Delayed Release Refills: 0 Active, Disp: , Rfl: spironolactone (Aldactone) 25 mg tablet, Take 1 tablet (25 mg) by mouth once daily., Disp: , Rfl: Assessment/Plan 1. Coronary artery disease involving [place]nak coronary artery of che[place]nak heart without angina pectoris Stable, I doubt progression based upon her symptoms (and lack thereof). 2. Essential hypertension, benign Well-controlled on current therapy 3. Mixed hyperlipidemia Well-controlled on current therapy 4. Nonischemic cardiomyopathy (CMS/HCC) No manifestations of heart failure detectable today. [facility] Work Phone: 1(340) 395-326610-30-2023 Instructions* Patient Instructions* Dante Jacob MA - 02/02/2023 11:00 AM EDT Please bring all medicines, vitamins, and herbal supplements with you when you come to the office. Prescriptions will not be filled unless you are compliant with your follow up appointments or have a follow up appointment scheduled as per instruction of your physician. Refills should be requested at the time of your visit. [facility] Work Phone: 1(820) 653-548509-14-2023 Evaluation note* Encounter Date Diagnosis Assessment Notes Treatment Notes Treatment Clinical Notes Dec, Arthritis of left knee (ICD-10 - M17.12) Patient was prepped and coritone was injected into the left knee under sterile conditions. Patient tolerated well with no adverse reactions. Activity as tolerate. [employer] Other 05-27-2023 Evaluation note* Encounter Date Diagnosis Assessment Notes Treatment Notes Treatment Clinical Notes August, Left ear pain (ICD-10 - H92.02) Meds as prescribed with food. Add flonase daily. No swimming or submerging head under water. No Q tips in ear. Push fluids and rest. Otc tylenol prn for additional ear pain relief. Pt to f/u with pcp as needed for new or worsening sx. Pt understood and agreed to treatment plan. [employer] Other 12-06-2022 NoteAdmission and Discharge Information Admitting Physician - J Carlos KEN MD Consulting Physician - Jannet ERIC, Jay Ayala MD, Mary Admitting Diagnoses: Discharge Diagnoses 1. Abdominal pain, 02/24/2022 2. S/P hernia repair, 02/24/2022 3. General weakness, 02/24/2022 4. Abnormal cardiac enzyme level, 02/24/2022 5. CAD (coronary artery disease), 02/24/2022 6. HTN (hypertension), 02/24/2022 7. HLD (hyperlipidemia), 02/24/2022 8. GERD (gastroesophageal reflux disease), 02/24/2022 Fatigue, 02/24/2022 Personal history of other diseases of the digestive system, 02/24/2022 Post surgical problem, 02/24/2022 Procedure History History of hernia repair (02/19/2022), Colonoscopy (01/17/2022), EGD - Esophagogastroduodenoscopy (07/06/2020), Arthroplasty of knee, Bladder operation, CE - Cataract extraction, section, Colonoscopy, Esophagogastroduodenoscopy, History of hysterectomy., Procedure on back. Hospital Course 81-year-old female who presented to the hospital with abdominal pain status post ventral hernia repair 02/19/[address] of the abdomen was obtained which showed no acute findings. CT was reviewed with who notes findings to be normal post op findings . Patient was able to tolerate a regular diet. She was treated with IV fluids. Urinalysis, chest x-ray, blood cultures were all negative from admission. Patient did have elevated troponin levels initially on presentation to the ED. However, last set oftroponin levels flattened. Cardiology consultation was placed at [facility] cardiology group Dr. Wasserman who patient typically follows. Patient was cleared for discharge home and will follow-up in their office. CT of the chest did incidentally show small scattered lung nodules up to 0.3 cm. Per Fleischner Society guidelines patient will require repeat CT scan of the chest in 3 months. Today on exam patient is doing well. Vitals and labs are stable. Patient states she feels better following IV fluids and bowel movements. Patient was seen by PT/OT who recommend no further home needs. Patient was cleared by surgery for discharge home. Patient will discharge home today in stable condition. Physical Exam General: Alert and oriented, No acute distress on exam. Eye: Pupils are equal, round and reactive to light. non icteric HENT: Normocephalic, Normal hearing, No pharyngeal erythema. Oral mucosa dry. Neck: Supple, Non-tender, No lymphadenopathy. Respiratory: Lungs are clear to auscultation, Respirations are non-labored, Breath sounds are equal, Symmetrical chest wall expansion. Cardiovascular: Normal rate, Regular rhythm, Good pulses equal in all extremities, Normal peripheral perfusion, No edema. Gastrointestinal: Soft, slightly-tender throughout abd. guarding noted to entire abdomen,incisionalsite intact w/o drainage or erythema, Non-distended, Normal bowel sounds. Musculoskeletal Normal range of motion. Normal strength. Integumentary: Warm, Dry, Intact. abdominal post operative stab sites dry and intact. No drainage or erythema noted. Neurologic: Alert, Oriented, No focal deficits. Psychiatric: Cooperative, Appropriate mood & affect, Normal judgment. Laboratory Results Automated Diff (02/24/2022) Neutro Auto - 73.9 % Lymph Auto - 12.3 % Irwin Auto - 7.4 % Eos Auto - 3.6 % Basophil Auto - 2.8 % Neutro Absolute - 6.2 E9/L Lymph Absolute - 1.0 E9/L Irwin Absolute - 0.6 E9/L Eos Absolute - 0.3 E9/L Basophil Absolute - 0.2 E9/L BMP (02/24/2022) Glucose Lvl - 137 mg/dL BUN - 18 mg/dL Creatinine - 1.1 mg/dL BUN/Creat Ratio - 16 Sodium Lvl - 137 mmol/L Potassium Lvl - 3.5 mmol/L Chloride - 97 mmol/L CO2 - 28 mmol/L AGAP - 16 mEq/L Calcium Lvl - 10.5 mg/dL CBC w/ Auto Diff (02/24/2022) WBC - 8.4 E9/L RBC - 4.5 E12/L Hgb - 14.1 gm/dL Hct - 39.5 % MCV - 87.4 fL MCH - 31.2 pg MCHC - 35.7 gm/dL RDW - 13.4 % Platelet - 295.0 E9/L MPV - 8.3 fL eGFR (02/24/2022) eGFR - 48 mL/min/1.73 m2 eGFR AA - 58 mL/min/1.73 m2 Hepatic Function Panel (02/24/2022) Alk Phos - 72 Int._Unit/L ALT - 16 Int._Unit/L AST - 18 Int._Unit/L Total Protein - 7.9 gm/dL Albumin Lvl - 4.4 gm/dL Globulin - 3.5 gm/dL A/G Ratio - 1.3 Bili Total - 0.7 mg/dL Bili Direct - 0.1 mg/dL Bili Indirect - 0.6 mg/dL Lactic Acid (02/24/2022) Lactic Acid Lvl - 1.5 mmol/L Lipase Level (02/24/2022) Lipase Lvl - 43 unit/L Troponin (02/24/2022) Troponin - 105.90 pg/mL Troponin 0 Hr. (02/24/2022) Troponin - 96.00 pg/mL Troponin 6 Hr. (02/24/2022) Troponin - 105.10 pg/mL Troponin 9 Hr. (02/24/2022) Troponin - 90.10 pg/mL UA With Cult Reflex (02/24/2022) UA Spec Desc - Clean Catch UA Color - Yellow2 UA Clarity - Clear2 UA Spec Grav - 1.010 UA pH - 7.0 UA Protein - NEGATIVE1 UA Glucose - NEGATIVE1 UA Ketones - NEGATIVE1 UA Bili - NEGATIVE1 UA Blood - NEGATIVE1 UA Nitrite - NEGATIVE1 UA Urobilinogen - 0.2 UA Leuk Est - 1+ U (more content not included)...[facility]: Result Comment: Electronically Signed By: Yolanda SALAS\.br\Date and Time Signed: 03/10/22 20:44 EST\.br\Electronically Co-Signed By: Pantera QUICK MD\.br\Date and Time Co-Signed: 03/11/2210:53 [id number] NoteMicrobiology PROCEDURE: Blood Culture Charcoal [R1] SOURCE: Blood BODY SITE: Arm R COLLECTED DATE/TIME: 02/24/2022 13:54 EST RECEIVED DATE/TIME: 02/24/2022 14:07 EST START DATE/TIME: 02/24/2022 14:07 EST FREE TEXT SOURCE: Jay Emery DO, DO, John FINAL REPORTS Final Report [] Verified Date/Time: 03/03/2022 18:00 EST No growth at 7 days. Performing Locations R1: This test [facility] performed at: [facility], [address] [place] [address], [id number] [place] [address], [address] [place], [place] [address]Comment on above:Performed By: #### [id number] #### [address] [id number] NoteMicrobiology PROCEDURE: Blood Culture Charcoal [R1] SOURCE: Blood BODY SITE: Arm L COLLECTED DATE/TIME: 02/24/2022 13:44 EST RECEIVED DATE/TIME: 02/24/2022 14:08 EST START DATE/TIME: 02/24/2022 14:08 EST FREE TEXT SOURCE: IV Jay Jarrett DO, DO, John FINAL REPORTS Final Report [] Verified Date/Time: 03/03/2022 18:00 EST No growth at 7 days. Performing Locations R1: This test was performed at: [facility], [address] [place] [id number] [place] [address], [address] [place], [place] [address]Comment on above:Performed By: #### [id number] ####[facility] [address] [place] [address] [id number] NoteHOSPITAL REGULATIONS: All Positive and Important Negative Findings Shall Be Recorded Date of Consultation: 02/25/2022 Attending Physician: J Carlos Ken M.D. Consulting Physician: Jaime Wasserman M.D. This consultation reflects the evaluation, management and recommendations made during my consultation performed on 02/25/2022 at 2:40 p.m. Please refer to note of that date and time. The patient is a 81 year old female known to me. She presented with multiple complaints including abdominal distress, anorexia, an urge to vomit. These symptoms have been going on for about 5 days following a laparoscopic procedure of the abdomen, details unknown. She and her daughter advise me shehad some sort of hernia resection although it is unclear. She denied any anginal discomfort but forunknown reasons troponins were performed in the Emergency Room and they were elevated in a trivial but flat fashion. Because of this she is seen. The patient has no anginal symptomatology. She is active in the outpatient setting and had no angina, congestive heart failure or arrhythmia symptoms. She is familiar to me from multiple workups mostrecently August of 2021 at which time she had a Cardiolite stress test that was normal demonstrating no scar, no ischemia, and normal ejection fraction. At that time also she had an echocardiogram performed that was normal. Because of this she was treated pharmacologically in a conservative fashion. Her other previous history includes mild hypertension, hyperlipidemia, peptic ulcer disease and/or gastroesophageal reflux disease. The nature of her intraabdominal process necessitating a surgery isunclear to me. ALLERGIES:Percocet, Darvocet, [place], Oxycodone. PSYCHOSOCIAL HISTORY:Nonsmoker, nondrinker. FAMILY HISTORY:Diabetes, heart disease, lung cancer. REVIEW OF SYSTEMS:Otherwise negative, normal and noncontributory. PHYSICAL EXAMINATION: Vital signs: An ill appearing female. She is uncomfortable and moves slowly. Her blood pressure tmb500/66, pulse 64, respirations 16, temperature 36.8, weight 49.7 kg. Head: Normocephalic and nontraumatic. Eyes: Pupils equal and reactive to light and accommodation. Extraocular movements are intact. Sclerae non-icteric, non-injected. Conjunctivae and lids are unremarkable. Nose: Symmetric. No discharge. Ears: Symmetric. No discharge. Mouth: Age related dental change noted. No adenopathy, exudate, injection. Tongue midline and unremarkable. Neck: No appreciable jugular venous distention, hepatojugular reflux or bruit. No thyromegaly, adenopathy, nodularity. Heart: Regular rhythm. No murmur, rub or gallop. PMI is non-displaced. No palpable abnormalities. Lungs: Clear. No wheezes, rales or rhonchi. Diaphragmatic excursion limited due to abdominal discomfort. No other findings. Abdomen: Examination deferred but bowel sounds were present. I will defer that evaluation to General Surgery. Extremities: Radial, brachial, femoral, pedal pulses 2+. Lower extremities - no edema, no cyanosis. Neurologic: No gross cranial nerve, sensorimotor deficit. Mood and affect are appropriate. She is alert and oriented x3. LABORATORY: White count 8400, hemoglobin 14.1, platelet count 295,000. Her blood urea nitrogen 18, creatinine 1.1, sodium 137, potassium 3.5, chloride 97, bicarbonate 28. Her presenting troponin 96. Thereafter 105, thereafter 105, thereafter 90. Her electrocardiogram was demonstrating normal sinus rhythm, nonspecific ST-T wave changes. Her chest x-ray was unremarkable. IMPRESSIONS: 1. Troponin elevation is inconsequential and not reflective of flow limiting coronary disease. Troponins were performed for unknown reason. I believe, though, they are elevated due to physiologic stress associated with her recent intraabdominal surgical procedure followed by tremendous nausea, anorexia, catabolic state and dehydration. The patient had an evaluation for coronary disease and cardiomyopathy several months ago, all normal. 2. I believe the patient's presentation is an unfortunate postoperative sequelae from her procedure. Reason, details and pathophysiologic process not clear to me. Will defer to primary service. RECOMMENDATIONS: 1. From a cardiac standpoint no further change in medical therapy, intervention, evaluation or testing necessary. Will follow with you during the patient's acute hospitalization. Nahed Padilla Dictated: 02/26/2022 [id number] Transcribed: 02/26/2022 cc:Adriana Cruz D.O.[facility]: Result Comment: Electronically Signed By: Lisy ERIC, Nick Fernandez\Date and Time Signed: 02/27/22 14:23 [id number] NotePT Evaluation done this date. Pt. with on AM-PAC this date. She is safe and independent with all functional activities with no further PT needs.[facility]11[facility] Note Chief Complaint Had hernia repair done and hasn't felt well since. Has been sleeping History of Present Illness 81-year-old female with past medical history significant for CAD, HTN, HLD, GERD. Patientis 5 days postop hernia repair with . Pt presents to the hospital with increasing fatigueand incisional pain. Pt reports poor oral intake and just not feeling well . Complains of abdominal pain mainly to left side. Pt reports weakness. Denies fevers, chills, CP, nausea, vomiting. CT chest in the ED showed no acute findings. Troponin levels were slightly elevated. However no EKG changes or abnormal findings noted. Pt was seen by in the ED who reviewed imaging. Pt pending CT of the abd/pelvis with contrast--recommended pt for admission to hospitalist group for further work up and treatment. Review of Systems Constitutional: no fever, no chills, no sweats, no weakness Skin: no Jaundice, no rash, no petechiae ENMT: no ear pain, no sore throat, no congestion, no hoarseness Respiratory: no shortness of breath, no cough, no orthopnea, no wheezing Cardiovascular: no chest pain, no palpitations, no edema Gastrointestinal: no nausea, no vomiting, no diarrhea, no GI bleeding, last BM Genitourinary: no dysuria, no hematuria, no discharge, no pain Musculoskeletal: no back pain, Neurologic: no headache, no dizziness, no numbness, no weakness Psychiatric: no sleeping problems, no irritability, no mood swings/depression. Heme/Lymph: no bleeding tendency, no bruising tendency, no petechiae, no swollen nodes Additional ROS info: Except as noted in the above Review of Systems and in the History of Present Illness all other systems have been reviewed and are negative or noncontributory. Scoring Walker Fall Risk Score: 45 (02/24/22) Walker Fall Risk Score: 45 (02/24/22) Physical Exam Vitals & Measurements T: 36.5 ?C(Oral) TMIN: 36.4 ?C(Oral) TMAX: 36.5 ?C(Oral) HR: 62(Monitored) RR: 17 BP: 114/61 SpO2: 94% HT: 146 cm WT: 46 kg General: Alert and oriented, No acute distress on exam. Eye: Pupils are equal, round and reactive to light. non icteric HENT: Normocephalic, Normal hearing, No pharyngeal erythema. Oral mucosa dry. Neck: Supple, Non-tender, No lymphadenopathy. Respiratory: Lungs are clear to auscultation, Respirations are non-labored, Breath sounds are equal, Symmetrical chest wall expansion. Cardiovascular: Normal rate, Regular rhythm, Good pulses equal in all extremities, Normal peripheral perfusion, No edema. Gastrointestinal: Soft, slightly-tender throughout abd. guarding noted to entire abdomen,incisionalsite intact w/o drainage or erythema, Non-distended, Normal bowel sounds. Musculoskeletal Normal range of motion. Normal strength. Integumentary: Warm, Dry, Intact. abdominal post operative stab sites dry and intact. No drainage or erythema noted. Neurologic: Alert, Oriented, No focal deficits. Psychiatric: Cooperative, Appropriate mood & affect, Normal judgment. Lab Results WBC: 8.4 E9/L (02/24/22 13:44:00) RBC: 4.5 E12/L (02/24/22 13:44:00) HGB: 14.1 gm/dL (02/24/22 13:44:00) Hct: 39.5 % (02/24/22:44:00) MCV: 87.4 fL (02/24/22 13:44:00) MCH: 31.2 pg (02/24/22:44:00) MCHC: 35.7 gm/dL (02/24/22 13:44:00) RDW: 13.4 % (02/24/22 13:44:00) Platelet: 295 E9/L (02/24/22 13:44:00) MPV: 8.3 fL (02/24/22 13:44:00) Neutro Auto: 73.9 % (02/24/22 13:54:00) Lymph Auto: 12.3 % Low (02/24/22 13:54:00) Irwin Auto: 7.4 % (02/24/22 13:54:00) Eos Auto: 3.6 % (02/24/22 13:54:00) Basophil Auto: 2.8 % High (02/24/22 13:54:00) Neutro Absolute: 6.2 E9/L (02/24/22 13:54:00) Lymph Absolute: 1 E9/L (02/24/22 13:54:00) Irwin Absolute: 0.6 E9/L (02/24/22 13:54:00) Eos Absolute: 0.3 E9/L (02/24/22 13:54:00) Basophil Absolute: 0.2 E9/L (02/24/22 13:54:00) Glucose Lvl: 137 mg/dL (02/24/22 13:54:00) BUN: 18 mg/dL (02/24/22 13:54:00) Creatinine: 1.1 mg/dL (02/24/22 13:54:00) eGFR: 48 mL/min/1.73 m2 Low (02/24/22 13:54:00) eGFR AA: 58 mL/min/1.73 m2 Low (02/24/22 13:54:00) BUN/Creat Ratio: 16 (02/24/22 13:54:00) Sodium Lvl: 137 mmol/L (02/24/22 13:54:00) Potassium Lvl: 3.5 mmol/L (02/24/22 13:54:00) Chloride: 97 mmol/L Low (02/24/22 13:54:00) CO2: 28 mmol/L (02/24/22 13:54:00) AGAP: 16 mEq/L (02/24/22 13:54:00) Calcium Lvl: 10.5 mg/dL (02/24/22 13:54:00) Alk Phos: 72 Int._Unit/L (02/24/22 13:54:00) ALT: 16 Int._Unit/L (02/24/22 13:54:00) AST: 18 Int._Unit/L (02/24/22 13:54:00) Total Protein: 7.9 gm/dL High (02/24/22 13:54:00) Albumin Lvl: 4.4 gm/dL (02/24/22 13:54:00) Globulin: 3.5 gm/dL (02/24/22 13:54:00) A/G Ratio: 1.3 (02/24/22 13:54:00) Bili Total: 0.7 mg/dL (02/24/22 13:54:00) Bili Direct: 0.1 mg/dL (02/24/22 13:54:00) Bili Indirect: 0.6 mg/dL (02/24/22 13:54:00) Lipase Lvl: 43 unit/L (02/24/22 13:54:00) Lactic Acid Lvl: 1.5 mmol/L (02/24/22 13:54:00) Troponin: 105.9 pg/mL Critical (02/24/22 17:11:00) UA Spec Desc: Clean Catch (02/24/22 14:55:00) UA C (more content not included)...[facility] on above: Result Comment: Electronically Signed By: Yolanda SALAS\.br\Date and Time Signed: 02/24/22 21:25 EST\.br\Electronically Co-Signed By: Yolanda SALAS\.br\Date and Time Co-Signed: 02/24/22 21:27 EST\.br\Electronically Co-Signed By: J Carlos KEN MD\.br\Date and Time Co-Signed: 02/25/22 07:18 [id number] Notegeneral surgery interval progress note: S.81 y/o female sp robotic ipom incisional hernia repair performed 02/19/22 with fatigue and incisional pain. Patient states that she has not felt herself since surgery, specifically that she fatigues easier than usual (she is at baseline very active). Her pain has been intermittently controlled asthe patient has allergies to percocet and is wary of taking narcotics due to concerns for addictionand altered mental status. She has been passing gas and had a small bowel movement. Denies fevers and chills PMH, PSH, FMH, Home meds, allergies reviewed O. nad rrr incisions cdi, right side of abdomen is tender to palpation along three robotic incision, there is no rectus sheath hematoma evident on exam labs: CBC, BMP, LFTs reviewed, unremarkable, UA is pending Imaging: CXR wnl, no apparent free air; CT AP with contrast->Pending A/P: 81 y/o female s/p robotic incisional hernia repair with IPOM technique performed 02/19/22 presenting with postoeprative pain and fatigue Labs and vitals and physical exam reviewed, follow up CT scan and UA, assuming scan is normal we discussed and managed postoperative expectations with the patient and her daughter, including recoveryand [facility] Comment on above:Result Comment: Electronically Signed By: Jannet ERIC, Jay Downing\Date and Time Signed: 02/24/22 14:56 [id number] NoteHistory and Physical Update H&P Reviewed. Patient seen and examined, appropriate for planned surgery, robot incisional hernia Problem List/Past Medical History Ongoing BMI 20.0-20.9, adult Incisional hernia RLQ abdominal pain Ventral hernia Weight loss Historical Anemia Fecal incontinence History of colon polyps Nausea and vomiting Watery diarrhea Procedure/Surgical History Colonoscopy (01/17/2022), EGD - Esophagogastroduodenoscopy (07/06/2020), Arthroplasty of knee, Bladder operation, CE - Cataract extraction, section, Colonoscopy, Esophagogastroduodenoscopy, History of hysterectomy., Procedure on back. Medications Albuterol (Eqv-ProAir HFA) 90 mcg/inh inhalation aerosol, 2 puff(s), Inhalation, q6hr, PRN amlodipine, 10 mg, Oral, Daily aspirin 81 mg Oral EC Tab, 81 mg= 1 tab(s), Oral, Daily atorvastatin, 40 mg, Oral, Daily chlorthalidone, 25 mg, Oral, Daily isosorbide mononitrate, 30 mg, Oral, qAM Lactated Ringers IV Tara 1000 mL 1,000 mL, 1000 mL, IV Lactated Ringers IV Tara 1000 mL 1,000 mL, 1000 mL, IV losartan, 100 mg, Oral, Daily morphine 2 mg/mL Inj, 2 mg= 1 mL, IV Push, q4min, PRN morphine 2 mg/mL Inj, 2 mg= 1 mL, IV Push, q5min, PRN Cary 325 mg-5 mg oral tablet, 1 tab(s), Oral, q4hr, PRN pantoprazole, 40 mg, Oral, Daily Phenergan 25 mg/mL Injection, 6.25 mg= 0.25 mL, IV Push, q2min, PRN sertraline, 25 mg, Oral, Daily spironolactone, 25 mg, Oral, Daily Vitamin D3, 50 mcg, Oral, Daily Allergies Percocet (Nausea) Darvocet-N 100 (vomiting) Social History Alcohol - Denies Alcohol Use, 02/04/2022 Substance Abuse - Denies Substance Abuse, 02/04/2022 Tobacco - Denies Tobacco Use, 02/04/2022 Never (less than 100 in lifetime) Tobacco Use:. Never Smokeless Tobacco Use:., 01/10/2022 Family History Diabetes mellitus type 2: Father and Brother. Heart disease: Father. Primary malignant neoplasm of lung: Sister.[facility]11-02-2022 [id number]:127[facility]10-17-2022 [id number]:127[facility]10-14-20[facility] Evaluation + Plan noteExtracted from: Title:[facility] POSTOP Author:Eliecer Pennington DO Date: 01/17/22 Plan Transfer/ Discharge: Patient can be discharged from PACU when criteria met. Condition good. Extracted from: Title:[facility] PREOP ENDO NOTE Author:Waylon Pennington DO Date:01/17/22 Plan [place] [employer] (ASA) physical status classification: Class II. Anesthetic Preoperative Plan Anesthesia: Monitored anesthesia care and general anesthesia possible. Anesthetic plan, risks, benefits, and alternatives discussed with the patient and/or family. Pt. and/or family present and agree to proceed as planned.. Risks discussed including heart, lung, nerve damage. Risks of bleeding, dental injury, hospitalization, and general injury discussed. . Future Appointments Appointment Date:02/03/2022 10:20:00 AM Scheduled Provider:Jay Power MD Location:[facility] Appointment Type:[address]10-14-2022 Hospital Discharge instructions Patient Education 01/17/2022 10:08:02 Upper Endoscopy, Adult, Care After Upper Endoscopy, Adult, Care After This sheet gives you information about how to care for yourself after your procedure. Your health care provider may also give you more specific instructions. If you have problems or questions, contact your health care provider. What can I expect after the procedure? After the procedure, it is common to have: A sore throat. Mild stomach pain or discomfort. Bloating. Nausea. Follow these instructions at home: Follow instructions from your health care provider about what to eat or drink after your procedure. Return to your normal activities as told by your health care provider. Ask your health care provider what activities are safe for you. Take mgvf-oon-eagqytu and prescription medicines only as told by your health care provider. Do not drive for 24 hours if you were given a sedative during your procedure. Keep all follow-up visits as told by your health care provider. This is important. Contact a health care provider if you have: A sore throat that lasts longer than one day. Trouble swallowing. Get help right away if: You vomit blood or your vomit looks like coffee grounds. You have: ?A fever. ?Bloody, black, or tarry stools. ?A severe sore throat or you cannot swallow. ?Difficulty breathing. ?Severe pain in your chest or abdomen. Summary After the procedure, it is common to have a sore throat, mild stomach discomfort, bloating, and nausea. Do not drive for 24 hours if you were given a sedative during the procedure. Follow instructions from your health care provider about what to eat or drink after your procedure. Return to your normal activities as told by your health care provider. This information is not intended to replace advice given to you by your health care provider. Make sure you discuss any questions you have with your health care provider. Document Released: 09/21/2012 Document Revised: 09/14/2018 Document Reviewed: 08/23/2018 [employer] Patient Education 2020 [employer]. 01/17/2022 10:08:02 Colonoscopy, Care After Surgery Salam (CUSTOM) Colonoscopy Care After Surgery Please read the instructions outlined below and refer to this sheet in the next few weeks. These discharge instructions provide you with general information on caring for yourself [facility] Your doctor may also give you specific instructions. While your treatment has been planned according to the most current medical practices available, unavoidable complications occasionally occur. If you have any problems or questions after discharge, please call your doctor. ACTIVITY You may resume your regular activity, but move at a slower pace for the next 24 hours. Take frequent rest periods for the next 24 hours. Walking will help get rid of the air and reduce the bloated feeling in your abdomen (belly). No driving for 24 hours (because of the anesthesia (medicine) used during the test). You may shower. Do not sign any important legal documents or operate any machinery for 24 hours (because of the anesthesia used during the test). NUTRITION Drink plenty of fluids. You may resume your normal diet as instructed by your doctor. Begin with a light meal and progress to your normal diet. Heavy or fried foods are harder to digestand may make you feel nauseated (sick to your stomach). Avoid alcoholic beverages for 24 hours or as instructed. MEDICATIONS You may resume your normal medications unless your doctor tells you otherwise. WHAT YOU CAN EXPECT TODAY Some feelings of bloating in the abdomen. Passage of more gas than usual. Spotting of blood in your stool or on the toilet paper. FOLLOW-UP Your doctor will discuss the results of your test with you. SEEK IMMEDIATE MEDICAL ATTENTION IF: There is more than a spotting of blood in your stool. There is abdominal distention (your abdomen is swollen). There is vomiting. You have a temperature over 101.5 F. There is abdominal pain or discomfort that is severe or gets worse throughout the day. 01/17/2022 10:08:02 Diverticulosis MAGR (CUSTOM) Diverticulosis Many people have small pouches in their colon called diverticulum. The diverticulum bulge outward through weak spots in the colon. You could have one or more of these pouches in the colon. The condition of having these pouches in the colon is called diverticulosis or diverticular disease. Diverticulosis is usually diagnosed by tests to evaluate something else. For example, you may have had a colonoscopy to screen for colon cancer when the diverticulosis was found. Most people with diverticulosis do not have any discomfort or problems. If symptoms develop, they may include mild cramps, bloating, and constipation. A complication of this condition is called diverticulitis. This is when the diverticulum become inflamed and infected. How to treat diverticulosis: Increasing the amount of fiber in the diet may reduce symptoms of diverticulosis and prevent complications such as diverticulitis (infected diverticuli). Fiber keeps stool soft and lowers pressure inside the colon so that bowel contents can move througheasily. You should eat 20 to 35 grams of fiber each day. The table below shows the amount of fiber in some foods that you can easily add to your diet. Adding fiber slowly may decrease the bloating and fullness sometimes felt with an immediate high fiber diet. The doctor may also recommend taking a fiber product such as Citrucel or Metamucil once a day. In the past people with diverticulosis were to avoid nuts, corn, and seeds. This has not been foundto be true. If you find that certain foods create cramping or bloating, avoid that food. Foods high in fiber include: Fresh fruits, fresh vegetables, legumes (beans), whole wheat bread, bran muffins or cereal, and nuts. See the table below for examples of high fiber foods. Remember, your goal is 20- 35 grams per day. Amount of fiber in different foods Food Serving Grams of fiber Fruits Apple (with skin) 1 medium apple 4.4 Banana 1 medium banana 3.1 Oranges 1 orange 3.1 Prunes 1 cup, pitted 12.4 Juices Apple, unsweetened, w/added ascorbic acid 1 cup 0.5 Grapefruit, white, canned, sweetened 1 cup 0.2 Grape, unsweetened, w/added ascorbic acid 1 cup 0.5 [place] 1 cup 0.7 Vegetables Cooked Green beans 1 cup 4.0 Carrots 1/2 cup sliced 2.3 Peas 1 cup 8.8 Potato (baked, with skin) 1 medium potato 3.8 Raw [place] (with peel) 1 cucumber 1.5 Lettuce 1 cup shredded 0.5 Tomato 1 medium tomato 1.5 Spinach 1 cup 0.7 Legumes Baked beans, canned, no salt added 1 cup 13.9 Kidney beans, canned 1 cup 13.6 [place] beans, canned 1 cup 11.6 Lentils, boiled 1 cup 15.6 Breads, pastas, flours Bran muffins 1 medium muffin 5.2 Oatmeal, cooked 1 cup 4.0 White bread 1 slice 0.6 Whole-wheat bread 1 slice 1.9 Pasta and rice, cooked Macaroni 1 cup 2.5 Rice, brown 1 cup 3.5 Rice, white 1 cup 0.6 Spaghetti (regular) 1 cup 2.5 Nuts Almonds 1/2 cup 8.7 Peanuts 1/2 cup 7.9 Chart from [facility] 2013. SEEK IMMEDIATE MEDICAL CARE IF: You develop abdominal (belly) pain. An oral temperature above _ 101 F__develops. Repeated vomiting occurs. Blood is being passed in stools (bright red or black tarry stools). You develop any bowel problems or changes which you have not had before. Extra Information: To learn how much fiber and other nutrients are in different foods, visit the [place] Department of Agriculture (USDA) National Nutrient Database at: http://www.nal.usda.gov/fnic/foodcomp/search/ Created using data from the USDA National Nutrient Database for Standard Reference. Available at http://www.nal.usda.gov/fnic/foodcomp/search/. Information adapted from: [employer] Patient Information 2009 [employer]. [employer] 2013 http://www.Matchbin/contents/iamvhwmfmqvo-jjmbdim-sunuhm-the-basics Follow Up Care 01/10/2022 12:34:05 With:Jeferson COPE Address: [address] [place] [address] Business (1) When: Unknown Comments:office will call for follow up [facility]10-07-2022 Hospital Discharge instructions Patient Education 01/10/2022 11:39:30 Fecal Incontinence Fecal Incontinence Fecal incontinence, also called accidental bowel leakage, is not being able to control your bowels.This condition happens because the nerves or muscles around the anus do not work the way they should. This affects their ability to hold stool (feces). What are the causes? This condition may be caused by: Damage to the muscles at the end of the rectum (sphincter). Damage to the nerves that control bowel movements. Diarrhea. Chronic constipation. Pelvic floor dysfunction. This means the muscles in the pelvis do not work well. Loss of bowel storage capacity. This occurs when the rectum can no longer stretch in size in order to store feces. Inflammatory bowel disease (IBD), such as Crohn's disease. Irritable bowel syndrome (IBS). What increases the risk? You are more likely to develop this condition if you: Were born with bowels or a pelvis that did not form correctly. Have had rectal surgery. Have had radiation treatment for certain cancers. Have been , had a vaginal delivery, or had surgery that damaged the pelvic floor muscles. Had a complicated childbirth, spinal cord injury, or other trauma that caused nerve damage. Have a condition that can affect nerve function, such as diabetes, Parkinson's disease, or multiplesclerosis. Have a condition where the rectum drops down into the anus or vagina (prolapse). Are 65 years of age or older. What are the signs or symptoms? The main symptom of this condition is not being able to control your bowels. You also might not be able to get to the bathroom before a bowel movement. How is this diagnosed? This condition is diagnosed with a medical history and physical exam. You may also have other tests, including: Blood tests. Urine tests. A rectal exam. Ultrasound. MRI. Colonoscopy. This is an exam that looks at your large intestine (colon). Anal manometry. This is a test that measures the strength of the anal sphincter. Anal electromyogram (EMG). This is a test that uses small electrodes to check for nerve damage. How is this treated? Treatment for this condition depends on the cause and severity. Treatment may also focus on addressing any underlying causes of this condition. Treatment may include: Medicines. This may include medicines to: ?Prevent diarrhea. ?Help with constipation (bulk-forming laxatives). ?Treat any underlying conditions. Biofeedback therapy. This can help to retrain muscles that are affected. Fiber supplements. These can help manage your bowel movements. Nerve stimulation. Injectable gel to promote tissue growth and better muscle control. Surgery. You may need: ?Sphincter repair surgery. ?Diversion surgery. This procedure lets feces pass out of your body through a hole in your abdomen. Follow these instructions at home: Eating and drinking Follow instructions from your health care provider about any eating or drinking restrictions. ?Work with a dietitian to come up with a healthy diet that will help you avoid the foods that can make your condition worse. ?Keep a diet diary to find out which foods or drinks could be making your condition worse. Drink enough fluid to keep your urine pale yellow. Lifestyle Do not use any products that contain nicotine or tobacco, such as cigarettes and e-cigarettes. If you need help quitting, ask your health care provider. This may help your condition. If you are overweight, talk with your health care provider about how to safely lose weight. This may help your condition. Increase your physical activity as told by your health care provider. This may help your condition.Always talk with your health care provider before starting a new exercise program. Carry a change of clothes and supplies to clean up quickly if you have an episode of incontinence. Consider joining a fecal incontinence support group. You can find a support group online or in yourcal community. General instructions Take krnp-dhd-hmotkho and prescription medicines only as told by your health care provider. This includes any supplements. Apply a moisture barrier, such as petroleum jelly, to your rectum. This protects the skin from irritation caused by ongoing leaking or diarrhea. Tell your health care provider if you are upset or depressed about your condition. Keep all follow-up visits as told by your health care provider. This is important. Where to find more information [employer]intestinal [employer]: iffgd.org [employer]: patients.gi.org Contact a health care provider if: You have a fever. You have redness, swelling, or pain around your rectum. Your pain is getting worse or you lose feeling in your rectal area. You have blood in your stool. You feel sad or hopeless. You avoid social or work situations. Get help right away if: You stop having bowel movements. You cannot eat or drink without vomiting. You have rectal bleeding that does not stop. You have severe pain that is getting worse. You have symptoms of dehydration, including: ?Sleepiness or fatigue. ?Producing little or no urine, tears, or sweat. ?Dizziness. ?Dry mouth. ?Unusual irritability. ?Headache. ?Inability to think clearly. Summary Fecal incontinence, also called accidental bowel leakage, is not being able to control your bowels.This condition happens because the nerves or muscles around the anus do not work the way they should. Treatment varies depending on the cause and severity of your condition. Treatment may also focus onaddressing any underlying causes of this condition. Follow instructions from your health care provider about any eating or drinking restrictions, lifestyle changes, and skin care. Take jatx-knr-lkfgvpg and prescription medicines only as told by your health care provider. This includes any supplements. Tell your health care provider if your symptoms worsen or if you are upset or depressed about your condition. This information is not intended to replace advice given to you by your health care provider. Make sure you discuss any questions you have with your health care provider. Document Released: 03/04/2005 Document Revised: 08/05/2018 Document Reviewed: 08/05/2018 [employer] Patient Education 2020 [employer] 01/10/2022 10:49:37 Colonoscopy, Adult Colonoscopy, Adult A colonoscopy is an exam to look at the entire large intestine. During the exam, a lubricated, flexible tube that has a camera on the end of it is inserted into the anus and then passed into the rectum, colon, and other parts of the large intestine. You may have a colonoscopy as a part of normal colorectal screening or if you have certain symptoms, such as: Lack of red blood cells (anemia). Diarrhea that does not go away. Abdominal pain. Blood in your stool (feces). A colonoscopy can help screen for and diagnose medical problems, including: Tumors. Polyps. Inflammation. Areas of bleeding. Tell a health care provider about: Any allergies you have. All medicines you are taking, including vitamins, herbs, eye drops, creams, and gfka-yah-dcfnmbm medicines. Any problems you or family members have had with anesthetic medicines. Any blood disorders you have. Any surgeries you have had. Any medical conditions you have. Any problems you have had passing stool. What are the risks? Generally, this is a safe procedure. However, problems may occur, including: Bleeding. A tear in the intestine. A reaction to medicines given during the exam. Infection (rare). What happens before the procedure? Eating and drinking restrictions Follow instructions from your health care provider about eating and drinking, which may include: A few days before the procedure follow a low-fiber diet. Avoid nuts, seeds, dried fruit, raw fruits, and vegetables. 1 3 days before the procedure follow a clear liquid diet. Drink only clear liquids, such as clear broth or bouillon, black coffee or tea, clear juice, clear soft drinks or sports drinks, gelatin dessert, and popsicles. Avoid any liquids that contain red or purple dye. On the day of the procedure do not eat or drink anything starting 2 hours before the procedure, or within the time period that your health care provider recommends. Up to 2 hours before the procedure, you may continue to drink clear liquids, such as water or clear fruit juice. Bowel prep If you were prescribed an oral bowel prep to clean out your colon: Take it as told by your health care provider. Starting the day before your procedure, you will needto drink a large amount of medicated liquid. The liquid will cause you to have multiple loose stools until your stool is almost clear or light green. If your skin or anus gets irritated from diarrhea, you may use these to relieve the irritation: ?Medicated wipes, such as adult wet wipes with aloe and vitamin E. ?A skin-soothing product like petroleum jelly. If you vomit while drinking the bowel prep, take a break for up to 60 minutes and then begin the bowel prep again. If vomiting continues and you cannot take the bowel prep without vomiting, call yourhealth care provider. To clean out your colon, you may also be given: ?Laxative medicines. ?Instructions about how to use an enema. General instructions Ask your health care provider about: ?Changing or stopping your regular medicines or supplements. This is especially important if you are taking iron supplements, diabetes medicines, or blood thinners. ?Taking medicines such as aspirin and ibuprofen. These medicines can thin your blood. Do not take these medicines before the procedure if your health care provider tells you not to. Plan to have someone take you home from the hospital or clinic. What happens during the procedure? An IV may be inserted into one of your veins. You will be given medicine to help you relax (sedative). To reduce your risk of infection: ?Your health care team will wash or sanitize their hands. ?Your anal area will be washed with soap. You will be asked to lie on your side with your knees bent. Your health care provider will lubricate a long, thin, flexible tube. The tube will have a camera and a light on the end. The tube will be inserted into your anus. The tube will be gently eased through your rectum and colon. Air will be delivered into your colon to keep it open. You may feel some pressure or cramping. The camera will be used to take images during the procedure. A small tissue sample may be removed to be examined under a microscope (biopsy). If small polyps are found, your health care provider may remove them and have them checked for cancer cells. When the exam is done, the tube will be removed. The procedure may vary among health care providers and hospitals. What happens after the procedure? Your blood pressure, heart rate, breathing rate, and blood oxygen level will be monitored until themedicines you were given have worn off. Do not drive for 24 hours after the exam. You may have a small amount of blood in your stool. You may pass gas and have mild abdominal cramping or bloating due to the air that was used to inflate your colon during the exam. It is up to you to get the results of your procedure. Ask your health care provider, or the department performing the procedure, when your results will be ready. Summary A colonoscopy is an exam to look at the entire large intestine. During a colonoscopy, a lubricated, flexible tube with a camera on the end of it is inserted into the anus and then passed into the colon and other parts of the large intestine. Follow instructions from your health care provider about eating and drinking before the procedure. If you were prescribed an oral bowel prep to clean out your colon, take it as told by your health care provider. After your procedure, your blood pressure, heart rate, breathing rate, and blood oxygen level will be monitored until the medicines you were given have worn off. This information is not intended to replace advice given to you by your health care provider. Make sure you discuss any questions you have with your health care provider. Document Released: 03/20/2001 Document Revised: 01/13/2018 Document Reviewed: 06/03/2016 [employer] Patient Education 2020 [employer] Follow Up Care 11/13/2021 10:56:24 With:Shi Urbano CNP Address: When:1 to 2 weeks [facility] 05-26-2022 Evaluation note* Encounter Date Diagnosis Assessment Notes Treatment Notes Treatment Clinical Notes August, History of total right knee replacement (ICD-10 - Z96.651) August, Acute pain of left knee (ICD-10 - M25.562) August, Other In regards to t he patient's right knee pain, I discussed with her that overall I think that the x-rays look good but I do not have anything to compare to. I explained to her that I did see some lucency underneath the tibial component but again this may have been present for several years. I also explained to her that I felt at 90 degrees of flexion she is somewhat lax. I explained that we could start the process and working her up for possible infection or even aseptic loosening but the patient does not want to do anything from a surgical standpoint so at this point in time I do not feel that any further work-up for the right knee is necessary. 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 We discussed conservative management with an oral anti-inflammatory considering she is not on one regularly. We prescribed her a Medrol dose pack and then she will start meloxicam 7.5 mg daily after she completes her steroid pack. Furthermore, we prescribe her some Voltaren gel she can use 4-5 times a day. I will plan to see her back in 3 months. If she still having significant pain at that time we can consider an injection in the left knee. [employer] Other 05-22-2022 Evaluation note* Encounter Date Diagnosis Assessment Notes Treatment Notes Treatment Clinical Notes August, Asthmatic bronchitis with acute exacerbation, unspecified asthma severity, unspecified whether persistent (ICD-10 - J45.901) Take medications as prescribed. Follow up with your pcp. Drink plenty of fluids and get plenty of rest. If you develop chest pain, dizziness, or shortness of breath, then go to the ER. Sign and symptoms are consistent with asthmatic bronchitis. Will treat with prednisone, doxycycline, albuterol, and guaifenesin-codei ne. Eye drainage is most likely from reflux from sinus congestion. I considered life threatening diagnoses, However, given, that she denies chest pain, presyncopal/synco pal episodes, that there is no edema, and that there are no crackles in the lungs, that lung sounds are present bilaterally, or calf tenderness on palpation, life threatening diagnoses are unlikely. it is also reassuring that she is not hypoxic or tachycardic, she is well-appearing and sitting comfortably on the exam table. If symptoms worsen or she develops red flag symptoms as described, then she is advised to go to the ER. Pt understands and agrees with the plan. 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 Essential hypertension, benign Mixed hyperlipidemia Nonischemic cardiomyopathy (CMS/HCC) Other primary cardiomyopathies documented in this encounter [facility] Work Phone: History general Narrative - Reported* Type Description Date Medical History high cholesterol Medical History high blood pressure Medical History [place] Medical History asthma Surgical History right knee repacement Surgical History gall bladder Surgical History hysterectomy Surgical History carpal tunnel release Hospitalization History [facility] Other History of Present illness Narrative* Patient returns in follow-up of problems as noted. In the interim she has had no angina. She does, though, describe exertional dyspnea which appears to be new in onset. I advised her that in light ofher previous history of nonischemic cardiomyopathy as well as coronary disease we need to entertaina change in her ejection fraction and/or progression of coronary atherosclerosis. I recommended testing but she steadfastly refuses. Ultimately she consents and/or agrees to a trial of long-acting nitroglycerin therapy to see if this attenuates her symptoms and her daughter is with her and I encouraged both of them to call and let me know if the nitroglycerin is having any impact or benefit in regards to her complaints of shortness of breath. I advised him, that obviously, if there is improvement I would want to pursue the matter further with diagnostic testing. She is, as before, very reluctant. * For the time being other problems appear to be adequately dressed including blood pressure cholesterol and cardiac risk factors and because of this we make no other recommendation for changes in medical therapy. -[facility] DO Work Phone: History of Present illness Narrative* Symptoms better with Imdur * Patient returns in follow-up of problems as noted. She is done well. She denies angina CHF arrhythmia or other symptomatology. She believes she felt better on nitrate therapy and advised her I am still very concerned she might have coronary disease in need of intervention but she again steadfastly r efuses to undergo stress testing or angiography and wishes to continue medical therapy as is. The potential for myocardial infarction or other catastrophic events was explained her in detail and she states she is willing to accept the risks. Because of this we will otherwise continue medical therapy which appears to be adequate and appropriate. [facility] Work [facility]: History of Present illness Narrative* Symptoms better with Imdur * Patient returns in follow-up of problems as noted. She is done well. She denies angina CHF arrhythmia or other symptomatology. She believes she felt better on nitrate therapy and advised her I am still very concerned she might have coronary disease in need of intervention but she again steadfastly r efuses to undergo stress testing or angiography and wishes to continue medical therapy as is. The potential for myocardial infarction or other catastrophic events was explained her in detail and she states she is willing to accept the risks. Because of this we will otherwise continue medical therapy which appears to be adequate and appropriate. [facility] Work Phone: History of Present illness NarrativePatient returns in follow-up of problems as noted. She is doing well. I saw her recently in the hospital after she had undergone some sort of abdominal surgery. At that time she was relatively ill but stable from a cardiac standpoint. I discussed and reviewed with her at the time her recent echocardiogram and stress test both of which were normal because of all the above we continue to believe she is doing well. She has no manifestations of cardiomyopathy or coronary disease at the present timebecause of this we recommend continued therapy as is. Her lipids also appear to be adequately addressed and because of all the above we make no change and she [facility] Work Phone: Hospital course Narrative No data available for this section [facility] Discharge instructions Additional Instructions Increase your intake of fluids. Take Zofran as prescribed for nausea. Follow-up with your primary care physician for reevaluation in 3 to 5 days.[facility] Work Phone: Progress note No data available for this section [facility] Reason for referral (narrative)* Consultation (Routine) - Authorized Specialty Diagnoses / Procedures Referred By Contac t Referred To Contact Cardiology Diagnoses Essential hypertension, benign Procedures Follow Up In Cardiology Nick Wasserman MD [address] [place] [address] [address], [address] [address] Nick Wasserman MD [facility] 2, [address] [address] Referral ID Status Reason Start Date Expiration Date V isits Requested Visits Authorized [id number] Authorized 02/02/2023 02/02/2024 1 1 [facility] Work Phone: Summary Purpose Family History No Family History Records FoundUnknown Family Member Name Dates Details Family history of congestive heart failure: Father(V17.49, Z82.49) Status:Active Family history of myocardial infarction: Mother(V17.3, Z82.49) Status:Active Unknown Family Member Name Dates Details Family history of congestive heart failure: Father(V17.49, Z82.49) Status:Active Family history of myocardial infarction: Mother(V17.3, Z82.49) Status:Active Unknown Family Member Name Dates Details Family history of congestive heart failure: Father(V17.49, Z82.49) Status:Active Family history of myocardial infarction: Mother(V17.3, Z82.49) Status:Active Unknown Family Member Name Dates Details Family history of congestive heart failure: Father(V17.49, Z82.49) Status:Active Family history of myocardial infarction: Mother(V17.3, Z82.49) Status:Active Unknown Family Member Name Dates Details Family history of congestive heart failure: Father(V17.49, Z82.49) Status:Active Family history of myocardial infarction: Mother(V17.3, Z82.49) Status:Active Relationship Condition Age at Onset Recorded Date/T natasha Not Specified Unknown family medical history Unknown Unknown Family Member Name Dates Details Family history of congestive heart failure: Father(V17.49, Z82.49) Status:Active Family history of myocardial infarction: Mother(V17.3, Z82.49) Status:Active Unknown Family Member Name Dates Details Family history of congestive heart failure: Father(V17.49, Z82.49) Status:Active Family history of myocardial infarction: Mother(V17.3, Z82.49) Status:Active Unknown Family Member Name Dates Details Family history of congestive heart failure: Father(V17.49, Z82.49) Status:Active Family history of myocardial infarction: Mother(V17.3, Z82.49) Status:Active Advance Directives No Advanced Directives Records Found Advance Directive Response Recorded Date/ Time Advance Directives Yes June 25 4:43pm Advance Directive Response Recorded Date/ Time Advance Directives Yes June 25 3:43pm Chief Complaint ADINA PERRY is being seen for a 6 month follow-up of.ADINA PERRY is being seen for a 3 month follow-up of.ADINA PERRY is being seen for a 3 month follow-up of.ADINA PERRY is being seen for a 6 month follow-up of. ADINA PERRY is being seen for a 6 month follow-up of. Chief Complaint and Reason for Visit Chief Complaint diarrhea, weakness Chief Complaint I42.8;E78.2 Additional Source Comments INFORMATION SOURCE (unrecogn ized section and content) DATE CREATED AUTHOR 04/09/2019 [facility] DATE CREATED AUTHOR AUTHOR'S ORGANIZ ATION 11/20/2020 [facility] DATE CREATED AUTHOR AUTHOR'S ORGANIZ ATION 09/01/2021 [facility] DATE CREATED AUTHOR AUTHOR'S ORGANIZ ATION 10/25/2021 [facility] DATE CREATED AUTHOR AUTHOR'S ORGANIZ ATION 03/07/2022 [employer] DATE CREATED AUTHOR AUTHOR'S ORGANIZ ATION 03/11/2022 [facility] DATE CREATED AUTHOR AUTHOR'S ORGANIZ ATION 04/01/2022 [facility] DATE CREATED AUTHOR AUTHOR'S ORGANIZ ATION 02/03/2023 [facility] DATE CREATED AUTHOR AUTHOR'S ORGANIZ ATION 02/20/2023 [facility] DATE CREATED AUTHOR AUTHOR'S ORGANIZ ATION 03/06/2023 [facility] EPIC DATE CREATED AUTHOR AUTHOR'S ORGANIZ ATION 03/21/2023 [facility] REASON FOR VISIT (unrecogniz ed section and content) Reason Comments Follow-up 6m Care Teams (unrecognized sec tion and content) Team Status: Active Member Role Status Dates Adriana Cruz , DO Primary Care Provider Active Team Status: Inactive Member Role Status Dates Adriana Cruz , DO Primary Care Provider Active Nick Wasserman MD Attending Provider Active Team Status: Inactive Member Role Status Dates Adriana Cruz , DO Primary Care Provider Active Misbah Greenwood DO Emergency Provider Active Life Support Technician Relationship Specialty Start Date End Date Adriana Cruz DO [address] [facility], [address] [address] PCP - General 09/17/20 Team Status: Inactive Member Role Status Dates Adriana Cruz DO Primary Care Provider Active Eliecer Gray NP-C Attending Provider Activ e Goals (unrecognized section and content) Goals may be documented in a n alternate section FOR RECORDS PERTAINING TO PATIENTS WHO ARE OR HAVE BEEN ENROLLED IN A CHEMICAL DEPENDENCY/SUBSTANCEABUSE PROGRAM, SOME INFORMATION MAY BE OMITTED. This clinical summary was aggregated from multiple sources. Caution should be exercised in using it in the provision of clinical care. This summary normalizes information from multiple sources, and as a consequence, information in this document may materially change the coding, format and clinical context of patient data. In addition, data may be omitted in some cases. CLINICAL DECISIONS SHOULD BE BASED ON THE PRIMARY CLINICAL RECORDS. [employer] [facility]. provides no warranty or guarantee of the accuracy or completeness of information in this document.
[2023-04-03] MEDS: LIDOCAINE HCL 1% 100 MG/10 ML MDV INJ (09:04)
[2023-04-03] MEDS: 0.9 % SODIUM CHLORIDE 500 ML, LIDOCAINE HCL 20 ML, SODIUM BICARBONATE 10 MEQ INJ (09:05)
== END 2023-04-03 08:40 | disposition home or self-care (01) ==
LOC: VC 08:39
PROVIDERS: PCP Radiology Diagnostic Radiology; Visit Provider Radiology Diagnostic Radiology
DX: I83.813 Varicose veins of bilateral lower extremities with pain (principal)
CPT/HCPCS: 36478

== ENCOUNTER 2023-04-10 13:22 | Outpatient (OUT) | payer MEDICARE, OTHER, SELFPAY ==
--- NOTE | 2023-04-10 13:24 | VEIN_ITS ---
Patient Name: ADINA PERRY MR#: [id number] : 1940 Exam Date: 04/10/2023 Ordering Doctor: DR JESUS ADAM M.D. RADIOLOGY REPORT PROCEDURE: VC EXT VENOUS LT LIMITED COMPARISON: None. INDICATIONS: Phlebitis of superficial veins of lt lower extremity I80.02 TECHNIQUE: Lower extremity patel scale and Duplex Doppler evaluation of the deep venous system from the inguinal ligament through the calf veins. FINDINGS: REGION: Left lower extremity. THROMBI: Negative for DVT. Heat induced thrombus visualized 1.3cm from the SFJ. The heat induced thrombus extends from groin to mid thigh. 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
--- NOTE | 2023-04-10 13:24 | VEIN_ITS ---
Patient Name: ADINA PERRY MR#: [id number] : 1940 Exam Date: 04/10/2023 Ordering Doctor: DR JESUS ADAM M.D. RADIOLOGY REPORT PROCEDURE: [facility] - OFFICE VISIT FOLLOW UP COMPARISON: None. PROGRESS NOTES: The patient reports no significant problems following intravenous laser ablation of the left anterior accessory saphenous vein. The patient did not require oral analgesics. The patient has worn her compression stocking. The patient has tried exercise. Physical exam demonstrates 2 areas of bruising the largest measuring 6 cm in diameter along the mid left anterior thigh likely related to tumescence injection. The incision is healed. The left anterior accessory saphenous vein cannot be palpated. No erythema or warmth to suggest cellulitis or thrombophlebitis. No active ulceration. Review of the ultrasound performed the same day demonstrates occlusive thrombus extending throughout the treated left anterior accessory saphenous vein with heat induced thrombus 1.3 cm from the saphenofemoral junction. No deep vein thrombus. The patient expressed a desire to proceed with treatment of incompetent right great saphenous vein. VEIN/ Facility EST [facility] IMPRESSION: 1. Successful ablation of the left anterior accessory saphenous vein 2. Persistent incompetent right great saphenous vein. PLAN: Intravenous laser ablation right great saphenous vein Nurse notes, history and physical were reviewed and confirmed, see attached forms. The nurse was present throughout the physical exam and consultation Dictated by: Jesus Adam MD on 04/10/2023 at 13:51 Approved by: Jesus Adam MD on 04/10/2023 at 13:52
--- OUTSIDE RECORDS SUMMARY | 2023-04-10 13:25 | XMS_ITS | CCD ---
Author Name Unknown Address [address] [place] [address] Organization [facility] Care Team Providers Care Manager Games Name Role Phone Adriana Cruz Unavailable Unavailable Unavailable Clement Madrid II Unavailable PegramEliecer syed Unavailable DO Adriana Cruz Primary Care Provider DO Misbah Greenwood Emergency Provider Unavai ADRIANA Muñiz Primary Care Physician [phone] Shi Urbano Attending Unavailable Shi Urbano Admitting [...] Jeferson Attending Unavailable SALAM, Govea Admitting Unavailable Tirado-Pendleton, Adriana Billie Primary Care Unava ilable Tirado-Pendleton, Adriana Billie Primary Care Unava ilable McGuinn II, Nick Garduno Attending Unav ailable McGuinn II, Nick Garduno Attending Unav ailable Tirado-Pendleton, Adriana Billie Primary Care Unava ilable McGuinn II, Nick Garduno Referring Unav ailable Tirado-Pendleton, Adriana Billie Primary Care Unava ilable McGuinn II, Nick Garduno Referring Unav ailable McGuinn II, Nick Garduno Attending Unav ailable Tirado-Pendleton, Adriana Billie Primary Care Unava ilable Tirado-Pendleton, Adriana Billie Primary Care Unava ilable McGuinn II, Nick Garduno Attending Unav ailable Luis Nolasco Unavailable Savanna Cassidy Unavailable Tirado-Pendleton DO, Adriana Billie Primary Care Provi octavio Tirado-Pendleton, DO Adriana Primary Care Provider MD Nick Wasserman Attending Provider NICK WASSERMAN Attending Unavailable TIRADO-EMERY, ADRIANA BILLIE Primary Care Unava ilable Tirado-Pendleton, DO Adriana Primary Care Provider 1( [phone] MD Nick Wasserman Attending Provider LIT Gray Attending Provider Tirado-Pendleton, Adriana Primary Care Unavailable Nick Wasserman Admitting Unavail able Nick Wasserman Attending Unavail able Eliecer Gray Attending Unavaila ble Tirado-Pendleton, Adriana Primary Care Unavailable Eliecer Gray Admitting Unavaila ble TIRADO-EMERY, ADRIANA D Referring Unavailab IRMA Chinchilla Attending Unavailable SHREYA MILLS Attending Unavailable Allergies Allergy Classification Reported Allergen(s) Allergy Type Date of Onset Reaction(s) Facility (4 sources) HYDROcodone; Translations: [hydrocodone] Drug Allergy 2 [facility] (5 sources) oxyCODONE; Translations: [oxyCODONE] Drug Allergy 2 [facility] (2 sources) Acetaminophen / oxyCODONE; Translations: [acetaminophen-ox ycodone] Drug Allergy Nausea (finding) [facility] Comment on above: All pain meds EXCEPT Morphine. Patient is able to take Morphone. (1 source) Acetaminophen / HYDROcodone; Translations: [[place]] Drug Allergy [facility] (1 source) Acetaminophen / oxyCODONE; Translations: [Percocet] Drug Allergy [facility] (1 source) Darvocet-N 100; Translations: [Darvocet-N 100] Propensity to adverse reactions (disorder) [facility] Medications Current Medications Medication Drug Class(es) [...] HCl A ctive take 1 tablet by roberth th once daily Sertraline HCl - 25 [...] 1 EA, Refill(s) 0, Prior to colonoscopy., [employer] [address]24, 150, cm, 01/10/22 10:48:00 EDT, [...] [Coronary atherosclerosis of unspecified type of vessel, [place] or graft] Onset: 3 02-02-2023 Chronic Deficiency [...] 02-20-2023 LAURA Telephone (REFPHY) -- ADINA PERRY ([id number]) 1940 F Date Time Provider Department 02/20/23 NO ONE (HISTORICAL) REFPHY During your visit today, we recorded the following information about you: Lloyd Water/Wastewater Project EngineerAlanis granados 02/20/2023 6:39 AM Addendum Patient: Adina Perry Date of : 1940 Patient phone number: [phone] Referring Provider for the encounter: Irma Angel APRN Requesting Provider: Vascular Surgery Reason for requesting visit (RFV/signs and symptoms/diagnosis): 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 Person calling: caregiver: Alanis Return call to: self Medical Records/Insurance Card scanned into [employer]: Yes Comments: This was Routed Incorrectly Allergies As of Date: 02/20/2023 Noted Allergy Reaction OXYBUTYNIN 10/13/2018 14 - Other: See Comments Comments: Severe dry mouth Date Reviewed: 02/21/2020 Reviewed by: Telma Reddy (Kee) - Fully Assessed Reason for Visit: [...] Status:Closed by ALANIS OSORIO on 02/20/23 Normal [facility] Urinalysis - DIPSTICKon 11-0 Appearance (U) cloudy [employer] Other Bilirubin Ql (U) Negative [employer] Other Color (U) yellow [employer] Other Glucose Ql (U) Negative [employer] Other Hemoglobin Ql (U) small [employer] Other Ketones Ql (U) Negative [employer] Other Leukocyte esterase Test strip Ql (U) large [employer] Other Nitrite Ql (U) Positive [employer] Other pH (U) 5.0 [pH] [employer] Other Protein Ql (U) trace [employer] Other Specific gravity (U) [Rel density] 1.025 [employer] Other Urobilinogen (U) [Mass/Vol] 0.2 mg/dL [employer] Other Urinalysis - DIPSTICK [employer] Other Urine Cultureon 02-11-2023 Bacteria identified Cx Nom (U) ORGANISM: Escherichia coli (O:ESCCOL) [place] Count >100,000 Aerobic DYLAN Charge (NMIC56) SUSCEPTIBILITY [...] RESISTANT TO ALL B-LACTAM DRUGS. PERFORMED BY: [place] [address] PATHOLOGIST RADIO PROGRAM DIRECTOR RENAN CAIN M.D. Normal [facility] Comment on above: Performed By: #### C UU #### [address] Basic Metabolic Panelon 10-3 0-2022 Anion gap [Moles/Vol] 11.0 mmol/L Normal 6.0-15.0 [facility] Comment on above: Performed By: #### L IPID, BMP, CBC #### [address] Calcium [Mass/Vol] 10.1 mg/dL Normal 8.6-10.3 [facility] Comment on above: Performed By: #### L IPID, BMP, CBC #### [place] [address] [place] Chloride [Moles/Vol] 107 mmol/L Normal 98-107 [facility] Comment on above: Performed By: #### L IPID, BMP, CBC #### [facility] [address] [place] [address] [place] CO2 [Moles/Vol] 26.4 mmol/L Normal 21.0-31.0 [facility] Comment on above: Performed By: #### L IPID, BMP, CBC #### [facility] [address] [place] [address] [place] Creatinine [Mass/Vol] 1.34 mg/dL High 0.60-1.20 [facility] Comment on above: Performed By: #### L IPID, BMP, CBC #### [place] [address] [place] GFR/1.73 sq M.predicted MDRD (S/P/Bld) [Vol rate/Area] 40.085 mL/min/{1.73_m2} Normal [facility] Comment on above: Performed By: #### L LANA OLIVEROS, CBC #### [facility] [address] Glucose [Mass/Vol] 91 mg/dL Normal 70-100 [facility] Comment on above: Result Comment: [place] Glucose Reference Range is dependent on time and content of last meal. Glucose of more than 200 mg/dL in a nonstressed, ambulatory subject supports the diagnosis of Diabetes Mellitus. ADA recommended reference range Performed By: #### L LANA OLIVEROS, CBC #### [facility] [address] Potassium [Moles/Vol] 4.4 mmol/L Normal 3.5-5.1 [facility] Comment on above: Performed By: #### L LANA OLIVEROS, CBC #### [address] Sodium [Moles/Vol] 140 mmol/L Normal 136-145 [facility] Comment on above: Performed By: #### L LANA OLIVEROS, CBC #### [facility] [address] [place] [address] Urea nitrogen [Mass/Vol] 23 mg/dL Normal 7-25 [facility] Comment on above: Performed By: #### L LANA OLIVEROS, CBC #### [facility] [address] [place] [address] [place] Basophils Auto (Bld) [#/Vol] Ordered By: Nick Wasserman on 02-02-2023 Basophils (Bld) [#/Vol] 0.0 10*3/uL 0.0-0.2 [facility] Basophils/100 WBC Auto (Bld) Ordered By: Nick Wasserman on 02-02-2023 Basophils/100 WBC (Bld) 0.4 % . [facility] Calcium [Mass/volume] in Ser um or PlasmaOrdered By: Nick Wasserman on 02-02-2023 Calcium [Mass/Vol] 10.1 mg/dL 8.6-10.3 [facility] Carbon dioxide, total [Moles /volume] in Serum or PlasmaOrdered By: Nick Wasserman on 02-02-2023 CO2 [Moles/Vol] 26.4 mmol/L 21.0-31.0 [facility] Chloride [Moles/volume] in S kobi or PlasmaOrdered By: Nick Wasserman on 02-02-2023 Chloride [Moles/Vol] 107 mmol/L 98-107 [facility] Cholesterol [Mass/volume] in Serum or PlasmaOrdered By: Nick Wasserman on 02-02-2023 Cholesterol [Mass/Vol] 170 mg/dL 140-200 [facility] Comment on above: Chol less than 200 m g/dl low riskChol 201-239 mg/dl borderline riskChol 240 mg/dl and greater high risk Cholesterol in LDL Calc [Mas s/Vol]Ordered By: Nick Wasserman on 02-02-2023 Cholesterol in LDL [Mass/Vol] 89 mg/dL 0-100 [facility] Comment on above: LDL ATP III CLASSIFI CATIONLDL less than 100 mg/dL OptimalLDL 100-129 mg/dL Near or above optimalLDL 130-159 mg/dL Borderline highLDL 160-189 mg/dL HighLDL greater than 189 mg/dL Very high Cholesterol in VLDL Calc [Ma ss/Vol]Ordered By: Nick Wasserman on 02-02-2023 Cholesterol in VLDL [Mass/Vol] 25 mg/dL [facility] Complete Blood Count Auto Di ffon 02-02-2023 Basophils (Bld) [#/Vol] 0.0 10*3/uL Normal 0.0-0.2 [facility] Comment on above: Result Comment: PERF ORMED BY: [place] [address] PATHOLOGIST RADIO PROGRAM DIRECTOR RENAN CAIN M.D. Performed By: #### L IPID BMP, CBC #### [address] Basophils/100 WBC (Bld) 0.4 % Normal . [facility] Comment on above: Performed By: #### L IPID BMP, CBC #### [facility] [address] Eosinophils (Bld) [#/Vol] 0.3 10*3/uL Normal 0.0-0.45 [facility] Comment on above: Performed By: #### L IPID, BMP, CBC #### [facility] [address] [place] [address] Eosinophils/100 WBC (Bld) 3.4 % Normal . [facility] Comment on above: Performed By: #### L IPID, BMP, CBC #### [address] Erythrocyte distribution width (RBC) [Ratio] 13.0 % Normal 11.9-15.3 [facility] Comment on above: Performed By: #### L IPID, BMP, CBC #### [address] Hematocrit (Bld) [Volume fraction] 37.3 % Normal 34.0-46.4 [facility] Comment on above: Performed By: #### L IPID, BMP, CBC #### [address] Hemoglobin (Bld) [Mass/Vol] 12.5 g/dL Normal 11.8-15.4 [facility] Comment on above: Performed By: #### L IPID, BMP, CBC #### [place] [address] [place] Lymphocytes (Bld) [#/Vol] 1.4 10*3/uL Normal 1.00-4.8 [facility] Comment on above: Performed By: #### L IPID, BMP, CBC #### [place] [address] [place] Lymphocytes/100 WBC (Bld) 16.6 % Normal . [facility] Comment on above: Performed By: #### L IPID, BMP, CBC #### [facility] [address] [place] [address] MCH (RBC) [Entitic mass] 30.9 pg Normal 24.7-34.3 [facility] Comment on above: Performed By: #### L IPID, BMP, CBC #### [facility] [address] MCV (RBC) [Entitic vol] 91.8 fL Normal 80-100 [facility] Comment on above: Performed By: #### L IPID, BMP, CBC #### [address] Mean Corpuscular HGB Conc 33.6 g/dL Normal 32.0-35.0 [facility] Comment on above: Performed By: #### L IPID, BMP, CBC #### [address] Monocytes (Bld) [#/Vol] 0.8 10*3/uL Normal 0.0-0.8 [facility] Comment on above: Performed By: #### L IPID, BMP, CBC #### [address] Monocytes/100 WBC (Bld) 9.0 % Normal . [facility] Comment on above: Performed By: #### L IPID, BMP, CBC #### [place] [address] [place] Neutrophils (Bld) [#/Vol] 6.1 10*3/uL Normal 1.8-7.7 [facility] Comment on above: Performed By: #### L IPID, BMP, CBC #### [place] [address] [place] Neutrophils/100 WBC (Bld) 70.6 % Normal . [facility] Comment on above: Performed By: #### L IPID, BMP, CBC #### [place] [address] [place] NRBC% 0.0 /100{WBC} Normal 0-0.5 [facility] Comment on above: Performed By: #### L IPID, BMP, CBC #### [address] Platelet mean volume (Bld) [Entitic vol] 8.2 fL Normal 6.3-10.7 [facility] Comment on above: Performed By: #### L IPID, BMP, CBC #### [facility] [address] Platelets (Bld) [#/Vol] 296 10*3/uL Normal 150-450 [facility] Comment on above: Performed By: #### L IPID, BMP, CBC #### [facility] [address] RBC (Bld) [#/Vol] 4.07 10*6/uL Normal 3.60-5.[address] [facility] Comment on above: Performed By: #### L IPID, BMP, CBC #### [facility] [address] WBC (Bld) [#/Vol] 8.6 10*3/uL Normal 3.8-11.6 [facility] Comment on above: Performed By: #### L IPID, BMP, CBC #### [facility] [address] Creatinine [Mass/volume] in Serum or PlasmaOrdered By: Nick Wasserman on 02-02-2023 Creatinine [Mass/Vol] 1.34 mg/dL 0.60-1.20 [facility] Eosinophils Auto (Bld) [#/Vo l]Ordered By: Nick Wasserman on 02-02-2023 Eosinophils (Bld) [#/Vol] 0.3 10*3/uL 0.0-0.45 [facility] Eosinophils/100 WBC Auto (Bl d)Ordered By: Nick Wasserman on 02-02-2023 Eosinophils/100 WBC (Bld) 3.4 % . [facility] Erythrocyte distribution wid th Auto (RBC) [Ratio]Ordered By: Nick Wasserman on 02-02-2023 Erythrocyte distribution width (RBC) [Ratio] 13.0 % 11.9-15.3 [facility] Glucose [Mass/volume] in Ser um or PlasmaOrdered By: Nick Wasserman on 02-02-2023 Glucose [Mass/Vol] 91 mg/dL 70-100 [facility] Comment on above: ADA recommended refe rence rangeRandom Glucose Reference Range is dependent on time and content of last meal. Glucose of more than 200 mg/dL in a nonstressed, ambulatory subject supports the diagnosis of Diabetes Mellitus. Hematocrit Auto (Bld) [Volum e fraction]Ordered By: Nick Wasserman on 02-02-2023 Hematocrit (Bld) [Volume fraction] 37.3 % 34.0-46.4 [facility] Hemoglobin [Mass/volume] in BloodOrdered By: Nick Wasserman on 02-02-2023 Hemoglobin (Bld) [Mass/Vol] 12.5 g/dL 11.8-15.4 [facility] Leukocytes [#/volume] correc sergey for nucleated erythrocytes in Blood by Automated counOrdered By: Nick Wasserman on 02-02-2023 WBC corrected for nucl RBC Auto (Bld) [#/Vol] 8.6 10*3/uL 3.8-11.6 [facility] Lipid Panelon 02-02-2023 Cholesterol [Mass/Vol] 170 mg/dL Normal 140-200 [facility] Comment on above: Result Comment: Chol less than 200 mg/dl low risk Chol 201-239 mg/dl borderline risk Chol 240 mg/dl and greater high risk Performed By: #### L IPID, BMP, CBC #### [facility] [address] [place] [address] [place] Cholesterol in HDL [Mass/Vol] 56 mg/dL Normal 23-92 [facility] Comment on above: Result Comment: HDL CHOL ATP-III CLASSIFICATION Cardiovascular Risk HDL > or equal to 60 mg/dL LOW HDL < 40 mg/dL HIGH Performed By: #### L IPID, BMP, CBC #### [facility] [address] [place] [address] [place] Cholesterol.total/Cho lesterol in HDL [Mass ratio] 3.0 {ratio} Normal <5.0 [facility] Comment on above: Result Comment: PERF ORMED BY: [facility] [address] [place] [address] PATHOLOGIST RADIO PROGRAM DIRECTOR RENAN CAIN M.D. Performed By: #### L IPID, BMP, CBC #### [facility] [address] LDL Cholesterol,Calculate d 89 mg/dL Normal 0-100 [facility] Comment on above: Result Comment: LDL ATP III CLASSIFICATION LDL less than 100 mg/dL Optimal LDL 100-129 mg/dL Near or above optimal LDL 130-159 mg/dL Borderline high LDL 160-189 mg/dL High LDL greater than 189 mg/dL Very high Performed By: #### L IPID, BMP, CBC #### [facility] [address] Triglyceride w/Reflex 127 mg/dL Normal 0-149 [facility] Comment on above: Result Comment: TRIG ATP III CLASSIFICATION TRIG less than 150 mg/dL Normal TRIG 150-199 mg/dL Borderline high TRIG 200-500 mg/dL High TRIG greater than 500 mg/dL Very high Standard traceable to the Center for Disease Conrtrol and Prevention (CDC) test method. Performed By: #### L IPID, BMP, CBC #### [facility] [address] VLDL CHOLESTEROL 25 mg/dL Normal [facility] Comment on above: Performed By: #### L IPID, BMP, CBC #### [facility] [address] Lymphocytes Auto (Bld) [#/Vo l]Ordered By: Nick Wasserman on 02-02-2023 Lymphocytes (Bld) [#/Vol] 1.4 10*3/uL 1.00-4.8 [facility] Lymphocytes/100 WBC Auto (Bl d)Ordered By: Nick Wasserman on 02-02-2023 Lymphocytes/100 WBC (Bld) 16.6 % . [facility] MCH Auto (RBC) [Entitic mass ]Ordered By: Nick Wasserman on 02-02-2023 MCH (RBC) [Entitic mass] 30.9 pg 24.7-34.3 [facility] MCHC Auto (RBC) [Mass/Vol]Or dered By: Nick Wasserman on 02-02-2023 MCHC (RBC) [Mass/Vol] 33.6 g/dL 32.0-35.0 [facility] MCV Auto (RBC) [Entitic vol] Ordered By: Nick Wasserman on 02-02-2023 MCV (RBC) [Entitic vol] 91.8 fL 80-100 [facility] Monocytes Auto (Bld) [#/Vol] Ordered By: Nick Wasserman on 02-02-2023 Monocytes (Bld) [#/Vol] 0.8 10*3/uL 0.0-0.8 [facility] Monocytes/100 WBC Auto (Bld) Ordered By: Nick Wasserman on 02-02-2023 Monocytes/100 WBC (Bld) 9.0 % . [facility] Neutrophils Auto (Bld) [#/Vo l]Ordered By: Nick Wasserman on 02-02-2023 Neutrophils (Bld) [#/Vol] 6.1 10*3/uL 1.8-7.7 [facility] Neutrophils/100 WBC Auto (Bl d)Ordered By: Nick Wasserman on 02-02-2023 Neutrophils/100 WBC (Bld) 70.6 % . [facility] No Panel InformationOrdered By: Nick Wasserman on 02-02-2023 Estimated GFR (CKD-EPI) 40.085 mL/Min [facility] Creatinine Clearance (Chem N/A [facility] Nucleated erythrocytes [Pres ence] in Blood by Automated countOrdered By: Nick Wasserman on 02-02-2023 Nucleated RBC Auto Ql (Bld) 0.0 /100{WBC} 0-0.5 [facility] Platelet mean volume Auto (B ld) [Entitic vol]Ordered By: Nick Wasserman on 02-02-2023 Platelet mean volume (Bld) [Entitic vol] 8.2 fL 6.3-10.7 [facility] Platelets Auto (Bld) [#/Vol] Ordered By: Nick Wasserman on 02-02-2023 Platelets (Bld) [#/Vol] 296 10*3/uL 150-450 [facility] Potassium [Moles/volume] in Serum or PlasmaOrdered By: Nick Wasserman on 02-02-2023 Potassium [Moles/Vol] 4.4 mmol/L 3.5-5.1 [facility] RBC Auto (Bld) [#/Vol]Ordere d By: Nick Wasserman on 02-02-2023 RBC (Bld) [#/Vol] 4.07 10*6/uL 3.60-5.[address] [facility] Serum or plasma anion gap de terminationOrdered By: Nick Wasserman on 02-02-2023 Anion gap [Moles/Vol] 11.0 mmol/L 6.0-15.0 [facility] Serum or plasma high density lipoprotein (HDL) cholesterol measurementOrdered By: Nick Wasserman on 02-02-2023 Cholesterol in HDL [Mass/Vol] 56 mg/dL 23- [facility] Comment on above: HDL CHOL ATP-III CLA SSIFICATION Cardiovascular RiskHDL > or equal to 60 mg/dL LOWHDL < 40 mg/dL HIGH Serum or plasma total choles terol/high density lipoprotein (HDL) cholesterol mass ratOrdered By: Nick Wasserman on 02-02-2023 Cholesterol.total/Cho lesterol in HDL [Mass ratio] 3.0 {ratio} <5.0 [facility] Sodium [Moles/volume] in Ser um or PlasmaOrdered By: Nick Wasserman on 02-02-2023 Sodium [Moles/Vol] 140 mmol/L 136-145 [facility] Triglyceride [Mass/volume] i n Serum or PlasmaOrdered By: Nick Wasserman on 02-02-2023 Triglyceride [Mass/Vol] 127 mg/dL 0-149 [facility] Comment on above: TRIG ATP III CLASSIF ICATIONTRIG less than 150 mg/dL NormalTRIG 150-199 mg/dL Borderline highTRIG 200-500 mg/dL High TRIG greater than 500 mg/dL Very highStandard traceable to the Center for Disease Conrtrol and Prevention (CDC) test method. Urea nitrogen [Mass/volume] in Serum or PlasmaOrdered By: Nick Wasserman on 02-02-2023 Urea nitrogen [Mass/Vol] 23 mg/dL 7- [facility] WBC Auto (Bld) [#/Vol]Ordere d By: Nick Wasserman on 02-02-2023 WBC (Bld) [#/Vol] 8.6 10*3/uL 3.8-11.6 [facility] Coding Summary.on 03-11-2022 Coding Summary. [id number] Gh0bWw +PGhlYWQ+OC4FKIQnG65siXGqw F2MM6rTUX0JKPVIUUSJZP4ZIA4 xbWY2DTvdR9GzcpBj HwdsgWDhEI67VWn2DWX4nSvvUH qdiB2xtSFeX1o7JtMiAX62bF83 DQgpZNFwDaL3LkKanpxoaISo T2koMdBfzMZtXcd+PHRhYmxlIH wqDMPaXNkwXCPcPlAsjEgoRE8y Hi0tWTLqWLLmgDiudCArGfCt m2jyMCZsQMwjYA2duSufA6NzjA A7AKBbo2y6Hk02vAG+PHRkIHN0 gPxbVPglp465PnQuu0owBNV9 gNWfRChmQMW4V85zc1Y5PXJpWO LpSTF1yQO6gF2gwEanncyeJ1Wk cIBaZeH7YYN2iQJjdJ7erWgf wzvwbT2kJox+P38KUY6ENHNJZJ 5GFwn1E3UtEvqihIU+VR82QBOi PV51xNVdiQAzd0rjvOm5FqPl DRZlPJP5eNgbUJmdb8TpHMOwB3 6azLTkz5H9CVLrcIbqbEQpRvSl pNQ0dD0rAWutxrjll4oookty Bgbvm1skjm30jH24S56zBWpqYI YyRIZ6OCVjLNErwHfdmg1cdO2k Ii8+JYwvs5exu8fuiKc9LsGj JQCbseEtaDgcYRU8a1ZlLf93Q6 BqgXose4VyGwq2vw88qPYwh6O0 yPA1FOvlRIBqxK7jEIzeImY7 KTYoWiBdmT67yFFoYOpbKe8byJ icdZjzAN0yZVRresxtGUTsbW4p ZTQidHMzoWojOM0sVQFwwvnd c369BoNcAUH4NQJgcVCcQ2VioA 8rFeLaWEBlZKXsB8HirUOvGHkp T220CIzcIrQ8VWJpqtDoM1Lh UXNerKtyOmZ2w9F1Bu9Kq3Xeuj jnQYF1PMrsPRBqWkU2NgNiLmX7 S0TyBuo4OMPmkImvFW1wD0Cv JJEorsnzhtypfZN5QVFhCOKqdH 29rBAnNCwhNs2vf0L4e117EITy HFJdbH06Mt2raSqqJSLsqAQZ xK6qmhkno9rehmjuXkTzYSXxWL d6CYp6HMFhbJutWyBfZPT8EuY2 TSP3hRZymK0qrVyyiezumR4k Oyc+F50diX3aXAB8QTL5phjlIX RcrkEtCM43GI82X2XcUiiidICa bGU+FPZhbvQbjFhyUO8zMzHt b2lyc4BpFDvfI3VuMQKgCMirMy x9APAnSNM6pSP4oQ0cPFZaWFkb u3F6vAZ9T5YqzhSdxb0sl3sh ZWXsKEraY84zcWRlw3N1ENBnwE X0YTRopGhlYcZtnN57Dxl+PGNv qUxjc1HiStezi7ybk3zpiUb5 EgKlYGFftqSkyOmwAFD5r4RjPc 62P82nSJajCAIwNQDzBJXjHFVf lZtzbz9tqJ1tQv0+PGNvbCB3 wSV3iV9iDRCpYzO3WLjuP000Cd ZbtFDmVbcnn8lyx9jjaGo0UmSc HNGrefGcbEeoMKW9s3OfKh53 T05rDKsqYJMwNTWiPVMiSCItgP pqlh0ttC8iFo2+DV5gy2gbyw01 nS33dSX+MTGsBTA1gHtbSAoy BCHvdS0vGJuzDlB0VMLuXpOhrS 81pZTvTKnhDh8emAggaBpmMQ5w UODyzuehf179DnUfq9zwPHSn oQZxPFjgXLD1X93ik3O5PPCtGC EjHVE2cXR3fJ3zwBqfgdcmnIWy fNpmkqUboEdeGJhrDCndL755 IHRvcDsnPlBhdGllbnQgTmFtZT y0P4LxFcn1HJQgvQciKG6ckUUu RBfrBq3mlYgbcKnzDK9eTJHd hjzln002GwQqt9dgBZKbtEEtXG iiKXW7R69wj8D7QXEvUHFyACQ3 oMT0bJ5okQsxhvuefGCqmZvb xzScoOwlXPitNWlnQ403DLUoxZ msShZlrgGyXODjjKU6FT00SB07 yEEmb5P6bBQ0U5BgCDNlnpji cngoePU3ORJkJLOafE48Aj2xhW vjYg1vMRBxIFX8PNNppLKiR9In jP4fOcUiRNDyQSVzZ6GaaHXf ZBnxQ179QSjkSeE5EQReyiCcI1 LsNZPtaBpuXrV7j1G4Os5PD8C8 UY96LD72gMJtc1J0vAD8Z1Qx CARiojqqmtrphNR5STPuHHJqtI 54Cf0weShnDh4cRCKdVXO1JHLf zIHdQ9SlsG6bXqNzVIJmGYDl K7XfhRHlOPdsF703MMoaIeD8KI FdrgWlF6WkQHUmwKbqOtM5n9C2 Qp7GMHa1GZ52MG70lKDev9M7 zXD8C8UtVCEyrcydglvmmWW1NO NcFUNucJ46Qf0ltUvzAq6aAXBv OYA6HHFevTYfR0BxzF4uHkXu ESUaSXXfA7SwfRFxUJyoW299ZM mnBtC4QGLddrKfZ5OwRQRqyQus ByT0e9U2Ha5QTTNtKW73AZO4 hIH5MZ55AI19Q5LsVdwjsXMbzU U+PHRhYmxlIHdpZHRoPScxMDAl FmFuzPrjLW3bGl6aOHPrOCPu cCdyzNJcYsNhd9oqNWEvERtxWY 4mjMpwD8BkaFB6NCKjr1i4Nz60 W89iH8KtdCG+YZQqrXL2gQH3 eR8kHlUjNaZ1WDdwI013YnUuzY GgLqvqi7szq4bqgAz0DfV0WMXt efSgkPbwWBF2l2CdBy70Z85c IHdpZHRoPSIxNSUiIHZhbGlnbj 0wtS4mBz4+BVUkpVS7qEG2sS2t AzKdJzL4ITyjV472PtCbaWGp Gtnbf5qcy0tixPl7DqTuOPNlmp BqzVhbMUS4x0VtSi89R2HljLgy o5HvXno9uk31hXAvk2F3uNL0 V9MtMADgjxmcnRIxsTofVA2zAR BrtpixQRHomY0kGAJvB0u1KiLp VuM7QWwuK1VeuqR6ENEkoVVy PPftDBO0S48wa9G1CSPjKZKfEV G3vMT2bK7fuFcduxxjxEFktFqr hyKdiVjpUEbjHWwvX474XWFc kEokBEHfqO0fNHXgcWOycQieWR 5fAANetegaMyYNZ3DRF1XhUTCP MBKZV9dNCW36YD78kPBya7I9 hOA5P3OpVSInnulqhchbmTA6CL SqLNNexH95bBPiZZyzQk0ss0V2 u612KQXsTFNskS44Yo8qwEyi BYIzlLNUaG1rbnnvr6lkywuwGm HnXIGgNPa2GBx4KQNduArcXcMr FHL8JdU7RQH6lKNpdT5wgVrk gwowiT7fVwd+RFXaGDNiVSr5Ik wvdGQ+LBWiNQU5uZutFEkgSGVi kR1fXJHbO8d8EgNfFtB2KKsh J1RdTPMpexcjXk87yA5sPuBnTv W2LVbsW2EdczN0NUYygGCyJFxm PDA5F46bv1M4FUPuDHEnPGM1 nIO0uZ2czCpktohqhEIigQshvs XkwUkmQXwsREfzL739NWJpfXtn Lps6FRbkXLUoBS02HD21tEJd y2Y6vSL2O9TxMQMxvuhminnftO Y1KXNyTVQyvP29cEOeEXhgCc4x b6S3p217YGEeEQQejM95Yv6q bAdxAZCryKIUiZ0lhvxqk9ammz hbBiUbPQPcARs9YLh1GMBepOtm RaJrYQB6XmS1BUN1ePSonO3m eIiuhauelS6xQpb+RmVtYWxlPC 54OH61oYPsh4Z4yPE9W9CqHMQg djdkogwkhHX3MIMeMHAffE14 nZVqMFfiBy7kh4N2x375QLMtXE MvlX22Jc1gvRnsQLMibZGMqB0u tzlwa4jpugfvRnWwLGSzWFh4 FFg9QLHzvNroRmUbLIC3ZxJ1GF L0gIHtnQ8puVpjzdjfmH4gNve+ N2PlIHO0UJEpp436I8NnWvpj dHI+OZ79TLXkRW46mQNqsEAsm5 eyiIw3JaTzHONoFGK1mCfwSXwe a6VzOFVmT11cxMBtj7E6ZDUm iQvmlIGrNpRdnHO6rI0gXDszpc jdw6hbitxoAgcsl2sagi74sF48 T63lEMudYDJgBAGmGLHkOQLj pCfbwo6qzF9vCy6+TVAxfFW8aT G3tA7jXvUfPlD0CYbjM633UnFj jNQdJiebg4mej9zziPh2VjFv JLKmkiGkfXuwQQP4w7MwUj29S2 9sIHdpZHRoPSIyMCUiIHZhbGln ed8ksO6sSh1+PP8em7avfp51 kL16wYN+EJExEZF7vSylAGwqTE EszU6oBTgbYxL5XAOvZuZkrZ94 jFUaXHsdRx3lvVfonAkkUF6l BAEekvymv075IvYyw2prZDPxkX GrUOqjKYY3X78bg7Y1BXZhYQGz QYO8mNN2nK2tyMsapxzsuPFm jDxypnLmgPnhWErxNTpqN436UG GafWipFgGirUWeD0iurySSZT1o OjwvdGQ+XTJoSCD9qSadSQwo PPOruD7kQNOcG2n8YlVxLeU8CK orP4MhptB4ETKctKErHVPhyPBR qZ0atcvwo6kqxfktPdVmDUBc SBu7QZy1KHCmoBjfEkNaUDH1Vj W6KZP5hESbsA3kpFmledqnfX8s Oyc+RklOOjwvdGQ+PHRkIHN0 vRipNAihYEZydR2iUOBqF6b8Gf TvWdP7KWqtY1XrbtD8NIMcnLQj MYGitLBBeG9lvjdxo9bogefh PrAfVZFgAPx9CRr2CUAdyDrdLs FlEVG3RoQ0EGY1vLXekU1tkOwn vescyY8lHqg+TVJOOjwvdGQ+ TYFmPDN9eIchISmeNOGofB7eKI NpW0e7NiNsFvY6QWwuS2FzigB1 UNEcuPLdTKReqUPVqX7jbybl t6qtirzbSwMvEBSaOYz9ARt2IJ GtyWtyJwDpERR7EsS8QLU9jDNy jG9raGkezzgbkK5yHop+UGF5 CWG3QQ03CN72D9UxKtdxaRCddV U+PHRhYmxlIHdpZHRoPScxMDAl BfRmpOmsUC6dWd3jVJLqNHWr bGxh (more content not included)... Normal [facility] Office Visit (Cardiology)on 03-06-2022 Follow-up visit Diagnoses/Problems [...] negative for complaint. Vitals Vital Signs Recorded: 20Grn3189 03:48PMRecorded: 92Rbt8194 03:25PM Huqfafbg573, LUE, Ycnckse605, LUE, Sitting Yukkmfneo64, LUE, Pmhjgvm14, LUE, Sitting Heart Rate66, L Radial Height4 ft 9 in Lompdn538 lb BMI Cocwxhfbjz91.37 kg/m2 BSA Calculated1.38 Tobacco Useb) No Falls [...] Mar 06 2022 4:39PM EST (Author) Normal ps[facility] Tobacco Screening.on 022 Fall risk assessment a) No falls within the last year [facility] y 250 DO Work Phone: Tobacco use status [facility]PH[facility] b) No [facility] 250 DO Work Phone: IntraOperative Documentson 1 05-04-2021 IntraOperative Documents [id number]#[id number]:127 Normal [facility] General Surgery Office/Clini c Noteon 03-03-2022 General [...] eXperience to record this visit. ANA M cash applications specialist and provider reviewed before signing. ANA [...] list Allergies Percocet (Nausea) Darvocet-N 100 (vomiting) [place] (Vomiting) oxyCODONE (Vo (more content not included)... Normal [facility] Comment on above: Result Comment: Elec tronically [...] Locations R1: This test was performed at: [facility], [address] [place] [address], [id number] , , [facility] Comment on above: Performed By: #### 2 [id number], [id number] #### [facility] [address] [place] [address] Coding Summary.on 02-25-2022 Coding Summary. CD:[id number] Gh0bWw +PGhlYWQ+YX8XQGNtN41jzFDpw H2ST1lBZL3WCALQLXCYED3YJO3 kmZB4VVwgD6AjvbPb VvuiqRGgWK81VCc3YFV0aEilSL zxpP3hsUCrF5q7EhYoIC84aP21 DCdyNPYjBdL0FkXdbchadLUh Z3vfCkGotQQiQyf+PHRhYmxlIH ycFUYyHPtrEEBjVjXqzDmgEB8d Hd9qBVHpACLypRldyTRjRpCb n7qnPQXdJJlwZT7ebDqrR5TsgO D7CVVva0e4Cv33aSS+PHRkIHN0 wEfrLKyek858TxQtl5ngVWK1 eGCoDZrdXMX5G74ax2O3PNGsXW XzAUF5eYD8nH7nmTxdeqlbP4Ty sVClYqT1BXF3oGLohL4keFjy nowfjN4oIzh+G40PQV3RYQLMWA 9VXrf4N1OkYnvjqHJ+YU61DDZj UT50eAObkCJyg8ltpAl6LlNp NZVoTBS8oUuuLPjwn9SeTTFiP0 1iqXTza5T6GNIowKchfMVdHrEi eVE5aP7yBZclbjehr5zckbsz Gzivk4psfq51rR02M19bJCswEB DoHMC6RPUdLMQcuXopta2biX8n Ii8+FNunn2yta4pkqQn7MtVs VFGayvWbrZpqAME9k0DzOi75W4 DosCxdr6XvYal1ee26jIGfl4F6 uZR5BXjhMKEicA4yCPqsBbS7 KDRgXqYqdR31rSFdUIdxZj2wbB tkeYdwKU1iAOKxaukwTJTyrX2o DRGyrWIvhCtyBI6kNQCdppmu f857BrGuCQL7DSYvuCIuW7FuvK 3hAkCnOVRlAJBnN2MqvPIpMYeo M255KUucCiW1EVXejjKyE6Ey CAWjxXqiNzY2p4K4Zn6Fk2Djtr maRNE3POugVKIdAvQgOrOuVkJ3 L4TkBzc8LCWwhShfYQ0oL5Ij WURtsdwsxfvihYI1TPRfAOWnqA 01vIGnRGblWa8an1Y3h281YBHn IVMpiA46Aq0wrArpWNWwxFMJ dE6vaween1lmqlonMmXoVAGmIY f8XAf4SMCrrAyhAbRrKJL6IjC3 IMH0cQBlgF1bbKxgbxnrnC4p Oyc+N96tmR6jTIE0FHN5wafcWZ UvoxZzZX16RH19K1XfChonwPBr bGU+WLDlkiQgqUyoGZ5kRwSr h0mfd3UnWEafK4IhVYKfQErjIe a6MPRgRSM4uMF6gD4oVFMpJTnf n0C2zYS7N8HufhXodo9nr0wg NUYyQLnxT78hdDNxw2G0XBOuzO W3MKQznOmzJmKerG47Eoi+PGNv wTocg7SlNsstm0kcx2zefAd2 EzFmIQAviaPojJufWAU7j6PmZb 42I83cRFsoFFBdPACpLZOjQMZj gEyzpk6xoU4fSx7+PGNvbCB3 dAH8oB0aMGBbErM2OLhqS241Xr BhsBLwBjaqg6jql4uxaTn8XtRi ANVgqvBrsInrEJP9f0IaBn54 Y54gRAjhGHIiPFMkUQHeGFYniZ ebhg5jdZ1fIo3+YD7rh9asgf47 cR69dIA+OONnKZE2dJobXUel GWQojN0nRXxzKlP3QXCaTdAatI 20mLUxYJtzCy4xqZcpmIhtUK4j NETpmjgur325VoAtp8qsMBZf nTWyGWvkYZO7M66ug5D7QNBdNJ CwPUV3yMJ0eT6vuOzzcnuvyPGd hRuglyNcfMigIZrpSTprD266 IHRvcDsnPlBhdGllbnQgTmFtZT l2K0WqFst0KDIcvPkeXM5yoGVi JNdmYl0sfAwoiPxrQB9jMQLw btmxq675MtBqm2nxMXRnrTYuYC dhZHX9Q16ve2S4JZLmZFQhGEA8 gGK0fX2ptNkdyfjqqBRynOxd sePjlHnuHGdzREukW212UPIerV kcLnRaklSsINAkqNU4IP98NY45 sSAsi2R1dZK4F4MpLKEdzhhz fnpmdHH8WXAbQHAvpC42Qc9ruV fyLr9dEMWfAHZ8DLGhwMKaU4Rr aD5jMzSpRJZpNJDxA2KgfVMb CYspV054SGazMrY1VWTxmcQiW3 NnGITsoLneLrI0m9H9Jg3EM2S2 GX47BV44kTTsu8I0kEW1H5Br YJHonqoaljgrwSQ2ZBYqDYYvsR 70Vm4biWksRo0oESRgDIC7PHBc uZSpL7IjkT4gFwFeHEYkEJDl K8LslIMhDOctC160MJbgMzV2QN RiauOeE6ZjMIAfjGdbVkA7s9I9 Xb4VJBq0DN18PK13jFCmw3C7 nSD3Q6AiFSVffwrdnwqzeMH7JJ PkNKRicD09Hb9maFmlJt4vHGMs KPB3NIZhjXXpH6OpnR9fLwXx OEFsWQKuS9XyjSSzKEtvM811CC kdQsY0YUWshjXuB9AcLOSafZio BvB2k8T4Wa0AJSEmOZ63ZKF5 dXK7MK05DS98O1LzPinbrJJkaX U+PHRhYmxlIHdpZHRoPScxMDAl QpRzwZuxTZ1cRy9sLFXnAKKk zTtnvFEiVyFse0ceODXpFExkLP 4fnEbgS7WvvVK8TEFnb1y7Qg26 T84zT4RxySQ+RTQidBT2gSY9 yW8tRwZyUaL0RJgyJ048TvTyrX SaCqyld1noh0oosUv1ZnB9LUFk daNgrGsgYFH3b4AlRa49N63y IHdpZHRoPSIxNSUiIHZhbGlnbj 2oxA5dFe2+CGZdpNS0oDJ8dV0k GwHjLuA4TGkiP649DbNqdIGj Joahv3kfg5lrfHx9KdGzFEGopl KhaSybBFO6j6WdFa82L0TfpCjn z3FcUlb3zg53rZEhw5O5gUI5 S5TwIJEgzzroyEZfvDxpRH7xRI KalphwHRBenP1zPFAdW4j2QhUu SwQ3MPaiD5ZeonC6USHqrFDk TJtvKVG6X25ey8R3MEUpPLQkAG N5hPI9gD1xwXimiynlnUSxbTyk kvIkuRyqOPcxGLgxM807CVPg yZtrABNpbK1bVEHfeUTrpRhzBS 3sUSLuiradAyRFD7FWB2TkSKBI GVRUO6cIWS74UO30dWMrn0K0 eDI6Y0OxCKGbaidffsgcnBV1SA ElJUHkhC31zLWkJPxnKx2sr6B3 f849EWEgWGGiiU02Xl1xgLap CYThqZHRxV6grenrr1dnrybxKk DgDJJgYYe4PTz0CZGywWevJmTl LUA9SiY6XSQ9aTRdlI9paLeg arnhqI8tBig+PQLaQNKsEXu6Pg wvdGQ+ZZQiKXW6lLbsMYorQSKt mX5tPVCmG8f4KaZsPpQ1NPtt G2SzDUBqkbsyWj94yF2bRfZhCg P2JFjaR2SqwyO5WXLfgKKsOFdm QIS4I13iv5B6HFXqZVJgMQG4 bNL8aO2xwSpcwztdaZLzdNloyw YmgFxcGEhnDWyvO791JZKipCpw Jyx4SVakKSTeQT20GN04gZQi w4L3dKU1I8HdYTDxbcnncwszeF S7IMHrLICeaS81vXSgAVbvWw5s i4D6l456GHBdOQCiqJ06Nd7e xPdrVNBbwHSLlX1iimjwb3cjqe emDvJdMVSrEMy6WYn3MJFprWpe ByYfZDK6TeT4MBY7nWSypN6y yGpqfztduA7tTqj+RmVtYWxlPC 49JI94sUSlz3K4qCX8C0VtIJDl roeghewnkDX6EBJkDFVztR60 jQQvTUokMa7ey3O9m619DFBlPX NevX98Nx9rzVetYAYgeRVTsS7o xbena6bfijukBiXuLSGgHVx2 NNo4JFWsdAwpYgJdWTB7GgB3CJ U4gZRuaG5okBlmibcfgO3bXzb+ KP8nwSraeM9zuA9AJO1pJJSt iLEMqMHtHGU5KL01BQ10S9XwMz wvdGFibGU+PHRhYmxlIHdpZHRo TIjzEOXnFhXzbWufKE9xIb8u OWWgSXHkbHrnrPEbKkRwf5diKK RdAMvoCD9viDzpP8GwxXC3ESZn v1i2Hu24C04hL9CjiHV+PGNv xBN5qMU9cB8bTbPhPjT0WCzfG6 19OoNahPFuTsmyf0tss1axuYs6 VaLgKTRamiOmlBpmWZO1x8Kw Sh36N11vOFjgTIRbFSScCJThCS GpeNsekl9niW6sZd8+PGNvbCB3 vDS7bM7uXtEsUmA1UOesC154 ScUlnFBuMlzoQ67pG2BrzAQ+PH QcHwz9PQAvwTfhWI7mnEGlUPhq Sl0dSEK6UrOuOvMuXFdkL6Vc KJKmegfyfzmjfYZ1VWXgVOIxxZ 87Co2anRvyNu0iFDCqLLB2HNMe vPRnE2XbmG4lLkEaQXCmHZZh I9HyiXHdMWkpX829FGitQrT1UI GevmFjZ5UkZQPenCgvJaF7c8Z0 Zu0ArZeqdNQlVP8nIsXoDTi9 H3NwKza7HMYujZnrYH4pfMRmLE ajBy8jqXjsxAheRY7uUQCjbxlw j483TvIwf7tzEFKetBPlTLgw KYX2A88rh7Z3HBEtJRNxNRD1gA D6sL7vhWtdjketgOYftKajchAa fNnsIMtmHTpuL069ASMshWlh YzHGCpk7K7UqVaw1MMMybSvtCL 3xjOTxOXdqXy3noOxbkYjjRB7a LQQdcbexa911FtXhk2nxMJLe aFKlIOnnOID3U88vj7J4NXGfMI WoHOY7sEZ1cZ4ofQjqtqqnfQKi rYyeviKheTtdRGafMIdxV467 YOXwfImcRu0DCln5L3DjSjk8XV AkjFxcOH1ehYCyWJopPr6thHyo nFlwVQ3vNJJlnssgr798UjGr e5ehACSyaCPrTWoxNHZ0T52yw0 Y3ERIpBJDoHOF4nMI5yO3goNjd bjogbGVmdDsgdmVydGljYWwt GNfxT478SUOkyPitKxLncHSfOb wvdGQ+QR09ds24T0CpNquoUba5 VRRxAZD5qPD0sC1zNIDnPZrq c3R5 (more content not included)... Normal [facility] Consultation Noteon 02-26-20 Consultation Note Patient: MAYA [...] STABLE AND NO WORK UP NEEDED Normal [facility] Comment on above: Result Comment: Elec tronically Signed By: Lisy ERIC, Nick Cheema\.br\Date and Time Signed: 02/25/22 14:40 EST Discharge Instructionson Discharge Instructions [id number]:127 Normal [facility] Inpatient Clinical Summaryon 02-25-2022 Inpatient Clinical Summary [address] [address] Clinical Summary Person Information: Name: ADINA PERRY Age: 81 Years : 1940 Sex: Female PCP: ADRIANA CRUZ DO Marital Status: Race: White Ethnicity: Non- or Language: Peruvian Visit Id: Visit Reason: Fatigue; Post surgical problem; ABD PAIN, ABNORMAL CARDIAC ENZYME LEVEL Speciality: Acuity: Enc Type: Observation Med Service: Medical Arrival: 02/24/2022 13:07:19 Discharge: Dispo Type: Admitted as IP to this Hosp Address: [address] [place] [address] [address] [place] [phone] Provider Notes: Diagnosis: 1:Abdominal pain; 2:S/P hernia [...] Percocet (Nausea) Darvocet-N 100 (vomiting) oxyCODONE (Vomiting) [place] (Vomiting) Measurements: Height: 146 cm Weight: 49.7 [...] up: With: Address: When: ADRIANA CHANGDELL [address], [address] [place] [address] [facility] (1) 03/10/2022 11:00 AM Comments: Appointment will be with the RIG MECHANIC With: Address: When: Jay Power 03/03/2022 9:00 AM Comments: Call for followup appointment 2-3 weeks or if already scheduled keep appt. Type Location Start [facility] 03/03/2022 9:00 AM 03/03/2022 9:20 AM Confirmed Patient Education Information: Weakness; Abdominal Pain, Adult, Yhqm-ol-Ttny Normal [facility] Inpatient Patient Summaryon 02-25-2022 Inpatient Patient Summary [...] Test Results None Pharmacy Information [facility] Previously Scheduled Follow-Up Appointments Thursday 9:00 AM EST With: Jannet ERIC, Jay Lock Where: [facility] Inpatient Patient Summary ADINA PERRY :1940 Visit [...] Test Results None Pharmacy Information [facility] Previously Scheduled Follow-Up Appointments Thursday 9:00 AM EST With: Jannet ERIC, Jay Lock Where: [facility] Inpatient Patient Summary [place] [address] Patient Discharge Instructions PERSON INFORMATION Name: ADINA [...] Follow up: With: Address: When: ADRIANA CRUZ [address] [place] [address], [place] [address] [place] [address] [facility] (1) 03/10/2022 11:00 AM Comments: Appointment will be with the RIG MECHANIC With: Address: When: Jay Power 03/03/2022 9:00 AM Comments: Call for followup appointment 2-3 weeks or if already scheduled keep appt. In the event that this physician does not participate in your insurance network, please consult with your insurance company to find a nearby participating provider. Type Location Start [facility] 03/03/2022 9:00 AM 03/03/2022 9:20 AM [...] ? Stre (more content not included)... Normal [facility] Interdisciplinary Note - Reji e Manageron 02-25-2022 Interdisciplinary Note - Administrator Pesticide CRM to room to discuss DC planning. Patient is alert, oriented and participates in DC planning. Patient is from home alone, has good family support. Patient daughter will transport at DC. Patient PCP, home DME and insurance reviewed. Patient is observation for abdomen pain and abnormal cardiac markers. Patient had a CT of abdomen and chest, see reports. Patient was rounded on by [facility], CRM waiting for updates. Patient is getting IVF. She is pending consults of gen sx, and cardiology. Patient was evaluated by PT/OT and they have no recs. Patient denied need for HH or PT. Patient provided CRM contact information, white board updated. Patient anticipated DC later today or 02/26. CRM following Normal [facility] Comment on above: Result Comment: Elec tronically [...] safely and independently once medically stable. Normal [facility] Main OR Intraoperative Recor don 02-25-2022 Main OR Intraoperative Record Normal [facility] Monitor Recordon 02-25-2022 Monitor Record [id number]#[id number]:127 Normal [facility] Monitor Record [id number]#1.00CD:127 Normal [facility] Postoperative Documentson Postoperative Documents [id number]#1.00CD:127 Normal [facility] Troponin 9 Hr.on 02-25-2022 Troponin I.cardiac [Mass/Vol] 90.10 pg/mL Abnormal 10.10-27.1 0 [facility] Comment on above: Result Comment: Crit ical [...] Sensitivity Troponin I Instructions For Use, [employer], November 2017) Performed By: #### 1 [id number] #### [facility] [address] [place] [address] Auto Diffon 02-24-2022 Basophils/100 WBC (Bld) 2.8 % High 0.0-2.0 [facility] Comment on above: Order Comment: Order Added by Discern Expert. Performed By: #### 1 0861818, 9392131, 6944335, 2294770, 39222204, 8391182, 8608337, 4515529 ####[facility] [address] [place] [address] Basophils/Leukocytes Auto (Bld) [Pure # fraction] 0.2 E9/L Normal 0.0-0.2 [facility] Comment on above: Order Comment: Order Added by Discern Expert. Performed By: #### 1 1376186, 9157579, 9903171, 0023740, 45472078, 3559901, 4926782, 6676495 ####[place] [address] [place] [address] Eosinophils/100 WBC (Bld) 3.6 % Normal 0.0-8.0 [facility] Comment on above: Order Comment: Order Added by Discern Expert. Performed By: #### 1 6031357, 4708837, 9795589, 5126192, 52099544, 4042302, 6607087, 6633844 ####[address] [address] Eosinophils/Leukocyte s Auto (Bld) [Pure # fraction] 0.3 E9/L Normal 0.0-0.5 [facility] Comment on above: Order Comment: Order Added by Discern Expert. Performed By: #### 1 1634552, 3142866, 7738679, 3339138, 80716616, 3074660, 0740073, 6468747 ####[address] [address] Lymphocytes/100 WBC (Bld) 12.3 % Low 14.0-50.0 [facility] Comment on above: Order Comment: Order Added by Discern Expert. Performed By: #### 1 1288198, 4532419, 4599992, 5416790, 26729405, 1656069, 1289398, 8965476 ####[address] [place] [address] Lymphocytes/Leukocyte s Auto (Bld) [Pure # fraction] 1.0 E9/L Normal 1.0-4.0 [facility] Comment on above: Order Comment: Order Added by Discern Expert. Performed By: #### 1 6919267, 5853536, 7354419, 0861530, 96415668, 3159700, 5664029, 0382173 ####[facility] [address] [place] [address] Monocytes/100 WBC (Bld) 7.4 % Normal 4.0-14.0 [facility] Comment on above: Order Comment: Order Added by Discern Expert. Performed By: #### 1 5966106, 6650060, 6091239, 9631598, 98028708, 3432344, 6081044, 9478702 ####[place] [place] [address] Monocytes/Leukocytes Auto (Bld) [Pure # fraction] 0.6 E9/L Normal 0.2-1.0 [facility] Comment on above: Order Comment: Order Added by Ramírez Expert. Performed By: #### 1 7721488, 6034819, 5075172, 8080906, 04315314, 2971271, 2807923, 6887392 ####[address] [place] [address] Neutrophils/100 WBC (Bld) 73.9 % Normal 36.0-75.0 [facility] Comment on above: Order Comment: Order Added by Ramírez Expert. Performed By: #### 1 7168046, 9286312, 1348392, 3903380, 59596767, 9952766, 0839694, 5081773 ####[address] [place] [address] Neutrophils/Leukocyte s Auto (Bld) [Pure # fraction] 6.2 E9/L Normal 2.0-7.5 [facility] Comment on above: Order Comment: Order Added by Discern Expert. Performed By: #### 1 2840911, 7002917, 4851452, 0294209, 64378720, 7944335, 6114369, 6798809 ####[address] [place] [address] BMPon 02-24-2022 Creatinine [Mass/Vol] 1.1 mg/dL Normal 0.5-1.3 [facility] Comment on above: Performed By: #### 1 1602366, 0716548, 7340736, 0064485, 44213816, 5025082, 0417866, 7974601 ####[facility] [address] [place] [address] Urea nitrogen [Mass/Vol] 18 mg/dL Normal 5-21 [facility] Comment on above: Performed By: #### 1 2595758, 7266390, 5560784, 8151800, 28942035, 3056937, 2938341, 4260842 ####[facility] [address] [place] [address] Urea nitrogen/Creatinine [Mass ratio] 16 No Units Normal 10-20 [facility] Comment on above: Performed By: #### 1 6428457, 6297579, 0825924, 7834696, 11175355, 3740576, 2112661, 6102100 ####[facility] [address] [place] [address] Anion gap [Moles/Vol] 16 mmol/L Normal 6-16 [facility] Comment on above: Performed By: #### 1 3004243, 3986711, 9081139, 1627753, 33355328, 0461741, 1064226, 7686032 ####[facility] [address] [place] [address] Calcium [Mass/Vol] 10.5 mg/dL Normal 8.9-11.1 [facility] Comment on above: Performed By: #### 1 9540181, 4966077, 4683349, 0723396, 38250182, 2519767, 3214090, 8427945 ####[facility] [address] [place] [address] Chloride [Moles/Vol] 97 mmol/L Low 101-111 [facility] Comment on above: Performed By: #### 1 5707109, 2165584, 7815157, 4449842, 97565028, 8165323, 6015027, 6944862 ####[facility] [address] [place] [address] CO2 [Moles/Vol] 28 mmol/L Normal 21-31 [facility] Comment on above: Performed By: #### 1 7961599, 8353681, 3392704, 4648083, 87935302, 6188697, 4198969, 4275561 ####[facility] [address] [place] [address] Glucose [Mass/Vol] 137 mg/dL Normal 55-199 [facility] Comment on above: Result Comment: If t his glucose result represents a fasting glucose, interpretation should refer to the following reference range: 55-99 mg/dL Performed By: #### 1 2390318, 4874049, 6889600, 1715963, 41955128, 2534824, 8941684, 6152944 ####[facility] [address] [place] [address] Potassium [Moles/Vol] 3.5 mmol/L Normal 3.5-5.3 [facility] Comment on above: Performed By: #### 1 4291886, 2271994, 1758737, 9576225, 14589920, 2721611, 9890587, 3715589 ####[facility] [address] [place] [address] Sodium [Moles/Vol] 137 mmol/L Normal 135-145 [facility] Comment on above: Performed By: #### 1 6046197, 7148997, 8183898, 4156684, 37688678, 6445595, 3913017, 5569305 ####[facility] [address] [place] [address] CBC w/ Auto Diffon 2 Erythrocyte distribution width (RBC) [Ratio] 13.4 % Normal 10.9-14.2 [facility] Comment on above: Performed By: #### 1 5906991, 9626455, 7192267, 3334151, 57301567, 8117393, 0870677, 5254933 ####[facility] [address] [place] [address] Hematocrit (Bld) [Volume fraction] 39.5 % Normal 34.0-46.0 [facility] Comment on above: Performed By: #### 1 5389154, 2495755, 8713464, 0191098, 76214123, 1881396, 0846914, 4978602 ####[address] [place] [address] Hemoglobin (Bld) [Mass/Vol] 14.1 g/dL Normal 12.0-16.0 [facility] Comment on above: Performed By: #### 1 2204596, 5007441, 4480805, 7003470, 96124873, 0389796, 9975462, 5646521 ####[address] [address] MCH (RBC) [Entitic mass] 31.2 pg Normal 27.0-34.0 [facility] Comment on above: Performed By: #### 1 9814857, 7753101, 3811010, 2584167, 18642366, 9602665, 3083643, 8876296 ####[place] [id number] MCHC (RBC) [Mass/Vol] 35.7 g/dL Normal 31.4-36.0 [facility] Comment on above: Performed By: #### 1 0999773, 6691322, 2117755, 1652093, 24768386, 2941954, 7349880, 4156107 ####[address] [address] MCV (RBC) [Entitic vol] 87.4 fL Normal 80.0-100.0 [facility] Comment on above: Performed By: #### 1 7707469, 8616029, 2641876, 7476908, 04214499, 8686122, 8735287, 0674589 ####[address] [address] Platelet mean volume (Bld) [Entitic vol] 8.3 fL Normal 6.4-10.8 [facility] Comment on above: Performed By: #### 1 4710353, 8717572, 6153804, 3593434, 32051497, 9082164, 7417453, 1319267 ####[facility] [address] [place] [address] Platelets (Bld) [#/Vol] 295.0 E9/L Normal 150.0-500. 0 [facility] Comment on above: Performed By: #### 1 1749172, 1359668, 6613945, 4157433, 92087095, 5286980, 5697293, 3757715 ####[facility] [address] [place] [address] RBC (Bld) [#/Vol] 4.5 E12/L Normal 4.3-5.9 [facility] Comment on above: Performed By: #### 1 1087477, 5531234, 5864914, 4874214, 80897937, 1997367, 9093471, 6340037 ####[facility] [address] [place] [address] WBC corrected for nucl RBC Auto (Bld) [#/Vol] 8.4 E9/L Normal 4.0-11.0 [facility] Comment on above: Performed By: #### 1 0507334, 4498753, 0829511, 3480470, 18393124, 8285035, 6239570, 6735781 ####[address] [place] [address] CT Abdomen/Pelvis w/ Contras ton 02-24-2022 CT [...] 81 Rectal Contrast Given? No Normal [facility] CTA Cheston 02-24-2022 CTA Chest Exam Date/Time: [...] FINAL REPORT (more content not included)... Normal [facility] Consent for Treatmenton 02-05 Consent for Treatment [id number] Normal [facility] ED Clinical Summaryon 2021 ED Clinical Summary (Inserted Image. Elvia ble to display) [place] [id number] ED Clinical Summary Person Information Name: ADINA PERRY[place] Age: 81 Years : 1940 Sex: Female Language: Peruvian PCP: ADRIANA CRUZ DO Marital Status: Visit Id: Visit Reason: Fatigue; Post surgical problem; [id number] PAIN Speciality: Acuity: 2 Enc Type: Emergency Med Service: Emergency Arrival: 02/24/2022 13:07:19 Discharge: LOS: 000 05:49 Checkin: 02/24/2022 13:07:19 Checkout: 02/24/2022 18:56:59 Dispo Type: Admitted as IP to this [facility] EVENTS: Event Name Event Status Request Date/Time [...] 02/24/2022 18:56:59 02/24/2022 18:56:59 02/24/2022 18:56:59 ADDRESS: [address] [place] [address] [address] [place] [id number] PHYS DOC NOTES: MEDICAL INFORMATION: Prescriptions Given: [...] Abdominal pain; Abnormal cardiac enzyme level Normal [facility] ED Note-Physicianon 02-25-20 ED Note-Physician Basic Information [...] she is known to Dr. Wasserman from [facility] cardiology. She also stated that previously she [...] puff(s), Inhalatio (more content not included)... Normal [facility] Comment on above: Result Comment: Elec tronically Signed By: Jay Emery DO\.br\Date and Time Signed: 02/24/22 17:27 EST ED Patient Education Noteon 02-24-2022 ED Patient Education Note Normal [facility] ED Patient Summaryon 022 ED Patient Summary (Inserted Image. Elvia ble to display) [place] [id number] Patient Discharge Instructions Person Information Name: ADINA PERRY Age: 81 Years Arrival Date: 02/24/2022 13:07:19 Discharge Diagnosis: Abdominal pain; Abnormal cardiac enzyme level Primary Care Physician: ADRIANA CRUZ DO Provider Information Primary Provider: Jay Emery DO Advanced Lidar Analyst:None The exam and treatment you received in the Emergency Department were for an urgent problem and are not intended as complete care. It is important that you follow up with a doctor, nurse practitioner, or physician?s offset press assistant for ongoing care. If your symptoms become worse or you do not improve as expected and you are unable to reach your usual health care provider, you should return to the Emergency Department. We are available 24 hours a day. ADINA PRERY has been given the following list of [...] opioids can be used to help relieve eieruylw-go-offxrx pain and are often prescribed following a [...] be struggling with addiction, tell your health care transition manager and ask for guidance or call [facility] National Helpline at 5-149-832-PKDE. x Source: [place] Department of Health and Human Services/Center for Disease Control & Prevention [facility] Medications Given: Med (more content not included)... Normal [facility] Hep Func Panelon 02-24-2022 Albumin [Mass/Vol] 4.4 g/dL Normal 3.3-5.0 [facility] Comment on above: Performed By: #### 1 3721267, 3043255, 5725073, 5782040, 20880434, 4666737, 2933601, 1891753 ####[facility] [address] [place] [address] Albumin/Globulin (S) [Mass conc ratio] 1.3 Normal 1.1-2.2 [facility] Comment on above: Performed By: #### 1 1035279, 7359119, 7892160, 0452385, 29748566, 7519889, 4173391, 6008981 ####[facility] [address] [place] [address] ALP [Catalytic activity/Vol] 72 Int._Unit/L Normal 21-98 [facility] Comment on above: Performed By: #### 1 9097175, 5078916, 8609751, 6676943, 99888689, 2202550, 2100609, 5002962 ####[address] [address] ALT No additional P-5'-P [Catalytic activity/Vol] 16 Int._Unit/L Normal 6-46 [facility] Comment on above: Performed By: #### 1 8297232, 0974526, 5797733, 3784083, 05325233, 2302961, 6117078, 7659497 ####[place] [address] AST [Catalytic activity/Vol] 18 Int._Unit/L Normal 5-43 [facility] Comment on above: Performed By: #### 1 4701533, 7099454, 7094530, 4636747, 26630124, 3046181, 5213808, 3000816 ####[address] [address] Bilirubin [Mass/Vol] 0.7 mg/dL Normal 0.0-1.1 [facility] Comment on above: Performed By: #### 1 2568832, 6340923, 2062315, 9703403, 18308799, 0825886, 9175260, 4051142 ####[facility] [address] [place] [address] Bilirubin.direct [Mass/Vol] 0.1 mg/dL Normal 0.1-0.4 [facility] Comment on above: Performed By: #### 1 3790753, 0726051, 0208285, 7825043, 95545585, 5174638, 0658851, 3275517 ####[address] [address] Bilirubin.indirect [Mass or moles/Vol] 0.6 mg/dL Normal 0.1-0.9 [facility] Comment on above: Performed By: #### 1 5886714, 6304457, 4096940, 9064934, 76582049, 7772112, 8441265, 9035977 ####[facility] [address] [place] [address] Globulin (S) [Mass/Vol] 3.5 g/dL Normal 1.4-4.0 [facility] Comment on above: Performed By: #### 1 7029495, 1067446, 1364047, 8697722, 08089207, 5924674, 2618618, 1896899 ####[facility] [address] [place] [address] Protein [Mass/Vol] 7.9 g/dL High 6.0-7.8 [facility] Comment on above: Performed By: #### 1 3249165, 7395236, 7216750, 6755162, 92324308, 1906470, 7006254, 7164962 ####[facility] [address] [place] [address] Lactic Acidon 02-24-2022 Lactate [Mass/Vol] 1.5 mmol/L Normal 0.5-2.2 [facility] Comment on above: Performed By: #### 1 0435548, 3062186, 1589680, 2632862, 48835785, 0661340, 0449211, 3609640 ####[facility] [address] [place] [address] Lipase Levelon 02-24-2022 Lipase [Catalytic activity/Vol] 43 U/L Normal 13-58 [facility] Comment on above: Performed By: #### 1 1878783, 7823226, 0537030, 1326535, 21293050, 0610255, 2177924, 8750294 ####[facility] [address] [place] [address] Monitor Recordon 02-24-2022 Monitor Record [id number]#1.00CD:127 Normal [facility] Monitor Record [id number]#1.00CD:127 Normal [facility] Operative Reporton Operative Report SURGERY DATE: 2021 BUSINESS MANAGEMENT ASSOCIATE: Kylie Costa, Certified Anesthesiology Fellow INDICATION FOR SURGERY: The patient is a 81 year old female with previous abdominal hysterectomy performed in an open fashion in the presenting with a 2 cm incisional hernia that is symptomatic seen on computerized tomography scan from [facility]. She is here today for robotic assisted [...] condition. Jay Power M.D. lr Dictated: 02/19/2022 [id number] Transcribed: 02/19/2022 Normal [facility] Comment on above: Result Comment: Elec tronically Signed By: Jannet ERIC, Jay Lock\.br\Date and Time Signed: 02/24/22 07:55 EST Troponinon 02-24-2022 Troponin I.cardiac [Mass/Vol] 105.90 pg/mL Abnormal 10.10-27.1 0 [facility] Comment on above: Result Comment: Crit ical [...] High Sensitivity Troponin I Instructions For Use, [employer] [place], November 2017) Performed By: #### 2 260516 #### [facility] [address] [place] [address] Troponin 0 Hr.on 02-24-2022 Troponin I.cardiac [Mass/Vol] 96.00 pg/mL Abnormal 10.10-27.1 0 [facility] Comment on above: Result Comment: Crit ical [...] conjunction with clinical conditions of myocardial infarction. (surespot High Sensitivity Troponin I Instructions For Use, [place], November 2017) Performed By: #### 1 0435108, 5672989, 7008928, 3033745, 89968340, 9836582, 0790587, 9477957 ####[facility] [address] [place] [address] Troponin 6 Hr.on 02-24-2022 Troponin I.cardiac [Mass/Vol] 105.10 pg/mL Abnormal 10.10-27.1 0 [facility] Comment on above: Result Comment: Crit ical [...] conjunction with clinical conditions of myocardial infarction. (surespot High Sensitivity Troponin I Instructions For Use, [place], November 2017) Performed By: #### 1 6825146 #### [facility] [address] [place] [address] UA With Cult Reflexon 2021 Bilirubin Ql (U) Negative Normal Negative [facility] Comment on above: Performed By: #### 2 497788, 21649453 #### [facility] [address] [place] [address] Clarity (U) CLEAR Normal Clear [facility] Comment on above: Performed By: #### 2 280210, 36039693 #### [facility] [address] [place] [address] Color (U) YELLOW Normal Yellow [facility] Comment on above: Performed By: #### 2 097981, 10537159 #### [facility] [address] [place] [address] Epithelial cells.squamous LM.HPF (Urine sed) [#/Area] 0-2 Normal 0-2 [facility] Comment on above: Performed By: #### 2 445492, 97178953 #### [facility] [address] [place] [address] Glucose Test strip (U) [Mass/Vol] Negative Normal Negative [facility] Comment on above: Performed By: #### 2 644779, 47486311 #### [facility] [address] [place] [address] Hemoglobin Ql (U) Negative Normal Negative [facility] Comment on above: Performed By: #### 2 145841, 34802388 #### [facility] [address] [place] [address] Ketones (U) [Mass/Vol] Negative Normal Negative [facility] Comment on above: Performed By: #### 2 487203, 72211973 #### [facility] [address] [place] [address] [place].plasma/Lithiu m.RBC (Bld) [Mass ratio] 0-3 Normal 0-3 [facility] Comment on above: Performed By: #### 2 395683, 07331529 #### [facility] [address] [place] [address] Nitrite Ql (U) Negative Normal Negative [facility] Comment on above: Performed By: #### 2 811655, 47889403 #### [facility] [address] [place] [address] pH (U) 7.0 [pH] Invalid Interpretation Code 5.0-9.0 [facility] Comment on above: Performed By: #### 2 927267, 65160540 #### [facility] [address] [place] [address] Protein (U) [Mass/Vol] Negative Normal Negative [facility] Comment on above: Performed By: #### 2 069064, 01063900 #### [facility] [address] [place] [address] Specific gravity (U) [Rel density] 1.010 Invalid Interpretation Code 1.005-1.03 0 [facility] Comment on above: Performed By: #### 2 476224, 63953754 #### [facility] [address] [place] [address] Type of Urine collection method Clean Catch Normal [facility] Comment on above: Performed By: #### 2 286199, 01661021 #### [facility] [address] [place] [address] Urobilinogen Qn (U) 0.2 {Gemma'U}/dL Normal 0.0-1.0 [facility] Comment on above: Performed By: #### 2 372784, 90543533 #### [facility] [address] [place] [address] WBC Auto Ql (U) 1+ Abnormal Negative [facility] Comment on above: Performed By: #### 2 483901, 60512407 #### [facility] [address] [place], [place] [address] WBC LM.HPF (Urine sed) [#/Area] 0-5 Normal 0-5 [facility] Comment on above: Performed By: #### 2 966827, 83693321 #### [facility] [address] [place], [place] [address] XR Chest Single Viewon 02-24 XR Chest [...] DO Transcribed by: PRESTON Technologist: Jd RUIZ [facility] eGFRon 02-24-2022 GFR/1.73 sq M.predicted among blacks MDRD (S/P/Bld) [Vol rate/Area] 58 mL/min/1.73 m2 Low >=59 [facility] Comment on above: Order Comment: Order added by Discern Expert. Result Comment: eGFR is race adjusted. AA=. Performed By: #### 1 1222695, 9677313, 3282856, 1995445, 43945520, 5637724, 0007274, 9483014 ####[facility] [address] [place] [address] GFR/1.73 sq M.predicted among non-blacks MDRD (S/P/Bld) [Vol rate/Area] 48 mL/min/1.73 m2 Low >=59 [facility] Comment on above: Order Comment: Order added by Discern Expert. Result Comment: Piggyback Clerk serene kidney disease could be indicated at eGFR's of less than 60 mL/min/1.73m2. Kidney failure is indicated at less than 15 mL/min/1.73m2. Performed By: #### 1 3663357, 7371554, 1704088, 4943310, 97375263, 9166371, 7500823, 3295197 ####[facility] [address] [place] [address] Consent for Anesthesiaon Consent for Anesthesia [id number]#1.00CD:127 Normal [facility] Discharge Instructionson Discharge Instructions [id number]#1.00CD:127 Normal [facility] IntraOperative Documentson 1 04-22-2021 IntraOperative Documents [id number]#1.00CD:127 Normal [facility] IntraOperative Documents [id number]#1.00CD:127 Normal [facility] Preoperative Documentson Preoperative Documents [id number]#1.00CD:127 Normal [facility] Preoperative Documents [id number]#1.00CD:127 Normal [facility] Consent for Treatmenton 02-04 Consent for Treatment [id number]#1.00CD:127 Normal [facility] Inpatient Patient Summaryon 02-19-2022 Inpatient Patient Summary [address] [address] [facility] Clinical Discharge Instructions PERSON INFORMATION Name: ADINA PERRY PHYSICIANS Admitting Physician: Jay Power MD Attending Physician: Jay Power MD PCP: ADRIANA CRUZ DO Discharge Diagnosis: Comment: PATIENT EDUCATION INFORMATION Instructions: Post Op Patient Instructions - FT (CUSTOM); Laparoscopic Ventral Hernia Repair, Care After Medication Leaflets: Follow up: With: Address: When: Jay Power [address] [place], [place] [phone] [facility] (1) In 7 days 02/26/2022 Comments: Call for followup appointment MEDICATION LIST New Medications [employer] [address], [address] [place], [place] [id number], [phone] acetaminophen-hydrocodone ([place] 325 mg-5 mg oral tablet) 1 Tablets [...] Milligram By Mouth every day. Comment: Normal [facility] Main OR PACU I Recordon 02-04 Main OR PACU I Record PACU Phase I Docum ent Type FT Summary Primary Physician: Jay Power MD Finalized Date/Time: 02/19/22 12:21:31 Pt. Name: ADINA PERRY /Sex: 1940 Female Med Rec #: [id number] Physician: Jay Power MD Financial #: [id number] Pt. Type: A Room/Bed: [facility]/ Admit/Disch: 02/19/22 05:56:04 - Institution: Case Times [...] Pavithra Saeed RN Document Signatures Signed By: Pavithra Saeed RN 02/19/22 12:21 Pavithra Saeed RN 02/19/22 12:21 Normal [facility] Main OR PACU II Recordon Main OR PACU II Record PACU Phase II Document Type FT Summary Primary Physician: Jay Power MD Finalized Date/Time: 02/19/22 16:14:48 Pt. Name: [place]OADINA/Sex: 1940 Female Med Rec #: [id number] Physician: Jay Power MD Financial #: [id number] Pt. Type: A Room/Bed: Admit/Disch: 02/19/22 05:56:04 [...] By: Jennie Garcia RN 02/19/22 16:14 Normal [facility] Main OR Preoperative Recordo n 02-19-2022 Main OR Preoperative Record PreOp Document Type FT Summary Primary Physician: Jay Power MD Finalized Date/Time: 02/19/22 08:51:16 Pt. Name: ADINA PERRY /Sex: 1940 Female Med Rec #: [id number] Physician: Jay Power MD Financial #: [id number] Pt. Type: [place] Room/Bed: [place] [address] Admit/Disch: 02/19/22 05:56:04 - Institution: Case Times [...] Signed By: Olivier Loza 02/19/22 08:51 Normal [facility] Monitor Recordon 02-19-2022 Monitor Record [id number]#1.00CD:127 Normal [facility] Operative Reporton 2 Operative Report Patient: MAYA [...] block, reparations continued for the proposed operation.. [facility] Comment on above: Result Comment: Elec tronically Signed By: Rk Moreno Jr., DO\.br\Date and Time Signed: 02/19/22 08:20 EST Outpatient Surgery Discharge Instructionon 02-19-2022 Outpatient Surgery Discharge Instruction [place] [id number] Patient Discharge Instructions PERSON INFORMATION Name: ADINA [...] Follow up: With: Address: When: Jay Power [address] [place] [address], [address] [address] [phone] Business (1) In 7 days 02/26/2022 Comments: [...] to serve you. Thank you for choosing [facility] HERE ARE THE MEDICATION CHANGES THAT OCCURRED DURING YOUR HOSPITAL STAY New Medications [employer] [address], [address] [place], [place] [id number], [phone] acetaminophen-hydrocodone ([place] 325 mg-5 mg oral tablet) 1 Tablets [...] and water are not available, use hand hedis specialist. ? Change your dressing as told by [...] ? Do (more content not included)... Normal [facility] Patient Education - Texton 1 04-21-2021 Patient [...] and water are not available, use hand hedis specialist. ? Change your dressing as told by [...] care provider approves. General instructions ? Take dsis-cpx-exzbmkd and prescription medicines only as told by your health care provider. ? To prevent or treat constipation while you are taking prescription pain medicine, your health care provider may recommend that you: ? Take kpzb-jsk-zszgwng or prescription medicines. ? Eat foods that [...] Reviewed: 11/12/2016 Elsevier Patient Education ? 2019 [email or web address]. [facility] Progress Note-Physicianon Progress Note-Physician Patient: ADINA PERRY Age: 81 years Sex: Female : 1940 Associated Diagnoses: None Author: Rk Moreno Jr., DO Postoperative Information Post Operative Note: Post Anesthesia Care Unit. Anesthetic utilized: General. Health Status Allergies: Allergic Reactions (Selected) Moderate Percocet- Nausea. Severity Not Documented Darvocet-N 100- Vomiting. Problem list: All Problems BMI 20.0-20.9, adult / SNOMED CT 0565387357 / Confirmed Incisional hernia / SNOMED CT 272065608 / Confirmed RLQ abdominal pain / SNOMED CT 435338310 / Confirmed Ventral hernia / SNOMED CT 9353664496 / Confirmed Weight loss / SNOMED CT 063010657 / Confirmed Resolved: Anemia / SNOMED CT 776964658 Resolved: Fecal incontinence / SNOMED CT 718940204 Resolved: History of colon polyps / SNOMED CT 3167688373 Resolved: Nausea and vomiting / SNOMED CT 33390074 Resolved: Watery diarrhea / SNOMED CT 400074270 Physical Examination Vital Signs 02/19/2022 14:13 EST [...] to self (more content not included)... Normal [facility] Comment on above: Result Comment: Elec tronically [...] Histories Past Medical History: Resolved Watery diarrhea (604857630): Resolved. Fecal incontinence (899529683): Resolved. Nausea and vomiting (31672350): Resolved. History of colon polyps (3309131793): Resolved. Anemia (282668043): Resolved. Family History: Heart disease Father Primary malignant neoplasm of lung Sister Diabetes mellitus type 2 Father Brother Procedure history: Colonoscopy (561487387) on 01/17/2022 at 81 Years. Comments: 01/17/2022 11:03 EDT - Hernan MILLS, Jennifer biopsies, diverticulosis EGD - Esophagogastroduodenoscopy (2173052458) on 07/06/2020 at 80 Years. Comments: 01/09/2022 16:03 EDT - Rajwinder Ho Dr Colonoscopy (905482632). Comments: 01/09/2022 16:02 EDT - Rajwinder Ho 2010 Esophagogastroduodenoscopy (478154820). Comments: 01/17/2022 11:03 EDT - Jennifer Becerra RN normal, gastric biopsies section (69392494). History of hysterectomy. (5745519700). CE - Cataract extraction (2101361201). Procedure on back (432107358). Arthroplasty of knee (37469627). Bladder operation (2533988340). Social History Social & Psychosocial Habits Alcohol [...] Auto 69.3 % Lymph Auto 20.0 % Eddy Auto 8.7 % Eos Auto 1.0 % Basophil Auto 1.0 % Neutro Absolute 7.0 E9/L Lymph Absolute 2.0 E9/L Eddy Absolute 0.9 E9/L Eos Absolute 0.1 E9/L Basophil Absolute 0.1 E9/L Glucose Lvl 94 mg/dL BUN 25 mg/dL HI Creatinine 1.2 mg/dL eGFR 43 mL/min/1.73 m2 LOW eGFR AA 53 mL/min/1.73 m2 LOW BUN/Creat Ratio 21 HI Sodium Lvl 140 mmol/L Potassium Lvl 4.7 mmol/L (more content not included)... Normal [facility] Comment on above: Result Comment: Elec tronically Signed By: Rk Moreno Jr., DO\.br\Date and Time Signed: 02/19/22 06:44 EST Coding Summary.on 02-10-2022 Coding Summary. CD:[id number]:[id number] Gh0bWw +PGhlYWQ+YU8ILTHoH32pjLQdc M4BA6uJAV5VXNLJBVPFYS4FWS0 khMU1IItgI7DgxsRt WyumrAXcZR28YVq1XYO2wDlqPS eklC1iwPEpN1q7DlZkJL56wY51 GYfqYPMbPwY9BzTvanrqfYZk E2teGlFomGYzAqd+PHRhYmxlIH hkZIFnTKisLXBkUfTdgUhgUF1r Iv5tOJCaQHMswEwvjACrBhJm s0ddGXVmNXeoVC0wxQzwB7NdqO G4KOLlq3o4Iq27uPN+PHRkIHN0 oChsIAkjv171DzGlf7kcBPL4 pEDbXPieNHP0W47lz9N8FSKiCV XcMHS2uCQ0yG0ypQmuurjwU0Bv yGInTmJ6NJJ1yMNjhA9laKfx jlptlW0gRou+J88YUY2ZMWIFJS 3XMfw0I7CaVtvsaFV+FQ34ZHDr ZY48vCIudJZcs7aemMa1FoGp YJXdXNA7iQwrEFdam8QqMAIqR0 1fsNNrt5O3JYHroSudwEFmTgMi pKY4fT3pGNqeocutc4forfle Kteip0kien82cT18A52bYWdaTV IvAES7VUKuZSYntRjhvk7stC4a Ii8+PXrhv9zax1dpzQe3YbLc OUJfhcEfwHrrYOL7s0EbJd95L6 QonHfjv6XgXop9rx58hEMhv8K8 tEA6MHgkOGPtnU3jBYteWqI7 EWEuQiAhyE93xCRfMQffTs1qgS uatHalKG1yBJRdhcntSPJkmS3q MMTcoAXciSntJV0oJLNirfpy z378IyVoCKX1JBBbuTSfU0NgvT 1dMbYfAVHgCVEwQ1ZnxMScZNhj V485PDopYcY6TVXnmrXhA7Zr BCIkeGqcWkX3a5K5Or6Sm2Ueyw rbXVB9EZcwGHQkDlD1CjQnBhD0 V0TpXny2BFTwnZkwUG7jO9Ik DPQovywvtqavkQZ1OQJsRJQwrG 25kIXyKWooEs0td7U9z510IYAw FDIqjW08Lh7ioPsjNJDwdUOC sK1hswqik0jklepzWwYgXFJkXX x2DIp5ALGnwMweMzPkLGR8QnD7 CHR1mUTdkR3etCazocyyaQ5s Oyc+B67vnH5yWDS1HGF7eanaTL MuxdDrPZ41JU74S0EhOcreoAIh bGU+TFHnrcZqiRfoWH0cKeJl y1yon4HrWSmqJ9WlKLZzJDhdGy u4NZGcALI5uGP0gX3kCDKvAEvd e8K9cSB3M2GtwdAdxb9yk2fw JGFuIHhfW79mlAFci0V6BBSwoI N1YYBlmPjrGuEzjN41Cpv+PGNv sXwkz2RrExjll5raq9rbwQo0 GlWiFPIzmdVrqIwhAKX7c1MdYf 40C97hMGxtKQHaOYHcLEPiNZPw vIulqu0qsJ4dUu1+PGNvbCB3 sGJ8bS0wRJIfIyH9AUlwM054Hu IapJDeGjsdk6kmc3emlWo4CgHi AGTnyiTqgShcDJN1x2NmDm30 D45fYFbjGSYwSQDoFSBiGVGtmR wrud1ozT2aSy4+FX4ak2wddz72 cO32xKW+UTOyLUX6lGuwFXmx EMHbgN5lFDutJpY3CAFaJsMerT 50hOHbXScsDm5zrUrlfTlyGC8c XAHpdddzr122SqRko1goRYIi tNAgNBamMAZ6S94bj7R1WQFyTH LwBTU6kQN0rB8cbRuwdjuxrVLx hBpckaEezKhcSIfiYHfsI134 IHRvcDsnPlBhdGllbnQgTmFtZT p5F3HyQjt6AVFfhBymZV1nbTSm SFdfLa2zqGoiyQdmHM7vPIIh ccbzj936AiIoh4xwMLTjxBCrHS wjVCK2P98yc0F5IKOvRVOvVND9 fKU4pH9ijMvmbgnmkNQfyMva grPsoZkuFEtpKEldF458QVGbnD ucOlSbgcFgEQBykNR5ZR51ZY78 uJJax4C0pWW3K4SuSBDepsoi ffgbfDA8YAVoRAChkP87Sq2mkE brUo8xLBPaFIS2XODnqZQaU6Sy uL9lSsGwNFWuQVCpV1TwkLMy HGakZ230WOvsHlD4OQNiekRuY6 QsEPOehZthAhG7w7P1Eh5KG1I6 TI14LF27qABdm6T7rPV5H3Mf EONwpwfgatwtwHR0WFOaUUNxnL 79Wo3phUbgMu4lLBOfTQK2TETs rWWqF8TjjP8xAhYeIJElRQEr V7CdiOEjNJmxJ086XPydHrV5QC MxflOkX0WaOINtsXgbAwA4f0G8 Zo5RZSt4OQ74QX14kCOdm4O2 qWC9H8FhCYImnhoinefwhSS3YE YeDIHdpI22Ph3atFdzTn7tRBHg NNY3QJWuzECmD3PtqT2uSfMh HGMsUXHsO6BrlBGtUMwsB868QU lbEjG8POFifdWnE5FxYCJhsRjy DeC3c8L8Ln1WWSOoWM24YZR3 oTY8OU87WX65U2EyOelepHMzkP U+PHRhYmxlIHdpZHRoPScxMDAl InXcgLhtAG7cGx6kOHAlJSDp sQwmzMXuPuZba2raLPAiHNcrZH 3jcFamS5VpoBG5RAPqn1o3Pp92 X23aK0ZccMP+OGYplCI7sWW2 wI2zSeHsUyE9ZIsgO852XeZfmI XdTzdrx6qwz5ihaXh4BkR9OWSc ndBfwKxhEWQ5c4EiQr17I55h IHdpZHRoPSIxNSUiIHZhbGlnbj 0bdB7jMx5+EPNmwSS3zGS9qS8l QmNpIpA1RIxlQ373DwBqgENp Eqdlf3ztx5oqmJu5KwVtASZmqf EnzEwjYAK1i4NqQq87K8FejRle r8VvHjm6bu23vJThc0G7iYX0 O0NaRMXemrkwzARzyDdlCW8aYY IqofemJXAbsP5iJQAqZ1h0FkIc QrW3ASodT7YjhjH7FOStzCLv JYxfZLJ1Q05jy1X2UYFxFNEaZG Y9vIR8kL4faGjnbphbzBWfmOmq plVqhDjeBMggGXkeH070SIAl xRzyWUUamP6jGPLvdEXxxOqdNV 0yZXVoyynnOlRIP2BIR5KqCFGZ SGECM0zIAZ50TX95eNAwk0M3 uAC6Y5OiPAKgvsriuvkkcJN2TF SpMOVrwK39lHVvHMttOw6lz6A9 i093AHOhTMMosU44Zh0ynFjr ISQzqWVFaD3prskdb3gtnpshMz QzZWXjEKd9EUw5AIUleAepXaLa AGE2WmB4MTK7bKNgkI1mmKin uqgtnQ7oOka+NSUyORLvCYa7Fw wvdGQ+WZXqCXJ8rGwmGLckTPEe nJ3oOZOcC3y9OrIxMcH8KNwh B0UwOARauzssVf20nM8qBtZrKy V9UQhoM5BjvnW7TQQfoHNtTHca SVX8Y63jk0U5QUNuWDRoRSG7 bQQ4lQ0mmYxzpnyosOFlqWjayi TuqCkfAJsnHEzkY083RWOpoHdt Oxr5HZgoGIPzRH23GQ24lTIy w4G5gZY7X3KwEYYvyxdurnbsvH N0OKUuWFWnkR28lBTvWYcoCh9j k7G7y768IIWeTSRrcS40Of5r eFyaOPNmtEZKbW3fydnhm1yvpi klOgAoLTKdBVf7CVz3DFVdpMve SvKuKNF5AzY3BXU1oPCtkD2w wZfylhhjdE2wYdj+RmVtYWxlPC 82IK25qLPfp4S4qDD7B8VyYRJw jtaeajjkcYY3URVaYJFloE48 eGPkIZdqWp4hf3U7h189NSLwHW QjcD91Iu5xaUatGOQetRVXpU8j emilg1hiwkrzMqDcGMJtTJr4 BAr7XZOdlCwfAxCeXXW1KeH8PT I5rCMueN2ftAzlxeitcC5zYjs+ H3K5nFN2dPDfkQdpzPO+PC90 tu53Z2ViNmsrOek6MELbXZA4kS L7qI0gTRPxUHhdv7H3rUJ7Y4Qy kjMohc6rj4ajWGKtDQsdF78v fRZsr2U2HYAqiTJ0BOSwmNtzYz FbdV67Gph+YVWfnOusn9YzXgnk g6xzs2dpuWk0AoHpLDIffqOf qPjpEZX9m7VuHe32V22sBXdyNR IbRQAzUMPpHKMytEdpic3qbI0o Ii8+KZTweNR5cHF4gL6pUhIo HiH1CCjkT942DeQyqMLvWraaj9 agw4caqDo5BgPdPHRjjpJnmLup YOX2w1YpHn98U1EvyInew4Pq Czp7nn57rXQfi2E0kTJ6K8YiKN BdocxtqYCmwXmtEA8yZAKxwrix MIJkmB7mPVAoN2f1FaOnZeZ1 WCwlL9AjnoB3SIYwnKEbDOCytI FTwA5sefctq9gqcjfoNdTiRKYn YQy7FQj7OPHkpZioOpUdMCX1 RoT0ZDV6tUFxbT0cpYpybfcmiM 9wOyc+WXi3d0qczNMjWW3jdBF6 IS98TO33ePPio2Y0jTV0V2Wy XCHkkavzuriorTM9CQZhLDJiwP 20Oh7wzIqsOq7iWMSeEEJ4TYKh nLSjU5DlaJ8fXyVfDHKhTYTh K7MzkGEnDSlzW253VTzwDrW6LK VteiTmB8AsJFFtaGywTtS3r7Z9 Si1EQJ92AI02ZM21rGPsp5V8 dHN7F9MpFQHljnmgfucclBM9ZP FzGEOxmR53Oh9qbOhkVq5fIXPd SRV0JNRcdPJyX3DvqB7cJhEu MEDwNOXdE4WarQTfPQpbR000OM gqOhL1VOQknsEiQ4PtEGSsfDdg FsL3x9N5Br7TTd92DK43GB72 nJRwn3Y7zZO7Q8UzIXCyahlupl kpwHD4DISrCNYhdE06Ii7quAzw Jo5oJTTzXXJ4MBMwgYXbY0Sl rB6tHfBqRXYzXBAbT6NtuKXcCE giS598DMboKlY3LNGrmhUyH9Um NZRjrEroBaO1g3T8Dt1QYUie lsj8U7BrJpembKV+LN73YWFdTT 96xZJbnVYvn8dcrZc6QvWqHWYv KPZ5fNlhLDrhq1RyAZVsZ41z bGFw (more content not included)... Normal [facility] Outside Recordson 02-07-2022 Outside Records [id number]#1.00CD:127 Normal [facility] Consent for Procedure/Surger yon 02-05-2022 Consent for Procedure/Surgery [id number]#1.00CD:127 Normal [facility] Outside Recordson 02-05-2022 Outside Records [id number]#1.00CD:127 Normal [facility] Consent for Treatmenton Consent for Treatment [id number]#1.00CD:127 Normal [facility] XR Chest 2 Viewson 2 XR Chest [...] MD, V. 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 female here [...] pelvis with IV with contrast performed at [facility], which showed a fat containing ventral hernia. However, on review of the actual report of that CT scan from 11/12/2021 at [facility], CT abdomen and pelvis with contrast to rule out diverticulitis. There was nothing mentioning a hernia in the body of the report nor in the findings. [facility] did not push through the images to our PACS system. I am unable to review these myself at this time. Our office is in contact with their radiology department to rectify this mistake. After calling and speaking with our radiology department and [facility], they have put the images through and [...] Martinez to record this visit. ANA M cash applications specialist and provider reviewed before signing. ANA [...] mononitrate, 30 mg, (more content not included)... [facility] Comment on above: Result Comment: Elec tronically Signed By: Jay Power MD\.br\Date and Time Signed: 02/03/22 11:22 EDT\.br\Electronically Co-Signed By: Radha Mcgee\.br\Date and Time Co-Signed: 02/03/22 11:04 EDT Reminderson 02-03-2022 Reminders - From: Marly Riggins MA To: Marly Riggins MA; Sent: 02/03/2022 10:11:05 EDT Show up: 02/06/2022 10:10:00 EDT Subject: CT Imaging Reminder/Recall CT done 11/12/[address] [facility] Spoke with [facility] Imaging and they pushed through the imaging Look at PAC Received imaging per Dr. Power [facility] RAD - CT Reporton 01-31-[address] - [address] Report [id number]#1.00CD:127 Normal [facility] IntraOperative Documentson 1 IntraOperative Documents [id number]#1.00CD:127 Normal [facility] Postoperative Documentson Postoperative Documents [id number]#1.00CD:127 Normal [facility] Coding Summary.on 01-21-2022 Coding Summary. CD:[id number] Gh0bWw +PGhlYWQ+QD6ZAQGhL38hpMImr Z4SN2bCVF5FJQELSOJBRP0WUT7 dlWI7FXosM5ZgqaOe EkqlqWUqGB31PPj0JTC5bResTS peuN6dyNGjO6x6IjVdXL38aY08 RPpqEUXzPaP2MeMptxnlgHFf T4euIpWqoUHoYzc+PHRhYmxlIH laTUGeBVglQKSgOsCtzOfvJM2c Ul7tZXHpFWUccEklaGFlIoSa y2kvWIRzDGjjWG0ywHftY4RmsI H5RHUig1r0Sd60aVM+PHRkIHN0 pEtjKAsaj884RtYhi0xmMHL7 tLGiRVuaGQZ5P69rp2N4DYPhFB OzXKU4eEY2vD9gpUfmbgjkC2Qs nYQbGqN6SKF9dFXmnT8goGun dczwwE1lQcr+Y64LMZ5SUZNNDW 3NHhc9Y1JiBgxesLR+ED57LDKr BH85vTFsuHPui2kdoMr8GeEi QKUgZVG4qSysDCzgt2JkGGPrN5 6iuFUzm2W0QABsbRdteRCnVuDz xCL9xE1sCNfliktod5rdgdnv Kmtgq9sfud41mG81V46eWIcjZJ ToAJJ5KVNbXKGkgIbnli8awX1x Ii8+KQsxi9jfc0tuuFw8DoWl VEYstkWfoRapIMW3l0PtPm32M0 QzoGaxk7TkYlx7mz45rKVmm9O5 gMF9NDhuSYMezX8yHXyvTbJ5 OXHnOpIrhC15pZDhYAazSx1llY cdtNrgOG8rSDYlruweKDUgyK1r GXKzgMRqpYfbJC5nRAFlugrh i429PxZsVNB3PHPkyCJfG4VsbI 2rDiMpGBGdXKGzX6TtlQDmYVof T015ZCskFwB3UCBjreYoD2Is BOWsgDceNqJ1p5U0Gt4Qb7Wypx ekRTQ2DLzlSGZjCyC9CcMkKaP4 K0GzXru6YWQysPehEH4yS8Jz BBEyervrbcpeaXR8DLQrIUZnvP 63jCMhKNteSm1cm1Q9k726PYVj UCQdrP15Ay0evClqIBDooBUW uV1bdtybv4bwxbeiEaUaLESaSM m5AJf4UAJapFzfOdSmKUV2XfC3 PFP3xKAkrA5qaLpxrjtrdT3n Oyc+V72voW4vAPW5NDG7jogvFS PjxjNpTG16WD10R8QjNnalvSZq bGU+PBUeswFzmPueSD0sXzZv z1mfz3RhNSroG5YyOAClTQqsIb v0RVDyPYT7xYJ1sS5tESIuGViz i4L5sYG4W4LfetAmsw4ot9gl JJGyRRtvG80ziNMtz2N8NCNcsB J5LATdgUngPcHizY23Nsc+PGNv pAqyj7ObAslgj5vso3tbdOf4 YnFxFZUpxwIcrDlwFUT9v5NbIv 14X21uWIdwTMQaTEDiGMFsCYEw oYhgll3toS0pWd1+PGNvbCB3 kYB4bR5bYHGsOqY3DJsmX762Ez DfbSNiAhnhf7bfj1fheZg0GcYi FJDlgkBejIagGBL1y1CsKx82 O97pJMzmTBCrTIEvXUYsHNFgqU chsp0uiI2pLb6+RI5qo2dwwn16 jJ67rPT+JVDyZTF3sYgcZXin NKNqkX0tGHwuDxS5JKRnSgQjxN 92mBXdCRbaYw5jcLwocBoiXM3l DDZubqxcy962WuVtm0vmRSFa kTWbRTluHPF1U77uy7Y1YZPvDW QySLR9dOA3mR2qeYhottqgbPEe wAkzjgIrePreNTuuPDxqV031 IHRvcDsnPlBhdGllbnQgTmFtZT x2U8HcXhw5XRGoxCyjTM8djTSn LNknYh0ycWpwjMhjWU7bAWOn nyfqq158EmZrv5snOQOqrJHlAN mtLYG8R63hq9J5YKDwPTLlRMZ3 cNL2qW6zyTilsrwskGJdqVkj yaPclRkfLVmrSAxwQ158AJYbyF wlYlWdxdRgNXGhfTY5TD24LM21 xAUzf7G0qGR4W0EpKYTnymxn pscyqMK5OIMpDPQpjV07Zz5gkH mhJx6nCKQeNHQ2LUNkvHJgH9Hb uP6eDzXoMNAkBHLcV0YhtODs EAufT903JVaqBiJ2DEZyjpIgQ1 BbANYopYgrKjD2t6T6Bq2TU6E1 SA77UA67yGShe3Y1uTR4S9Wn CNFqzcrldzzvfCD1PRLeFETphT 03Ap7voBhtCx5wTQJgGAK6OFHw uVQdX0AswI6fVyDhXYImGQTq M5JhwEJlLDghR055DBmtRbE5HF MvsyShN3GgKWGbkHjbBoZ1g9W8 Ms0NWHs7WS81CY57bDQax9W5 hQZ8L8LcLGWqpyefepaqlUW3XB VgEPXuyT79Kj8euWwsXj5qZGTs ODS5ZCSpbKQiT4LfmD5sPcMj GZMkLCPzY5TtbIUhXClzQ954IE oaThR3YZWwhdZcX6RlZGGhsXsa TlP9f4D4Jb3AZGBsRE30NVZ8 sHY3XM55GZ60Q0VkMrtvjIVypI U+PHRhYmxlIHdpZHRoPScxMDAl HcGyyYwjHL3lDr7gJOZoSDTr wYfhiNUnHfZwp5kdGCLfQMuvUZ 1nzQmeK9UacYN3XKIex2b7Gx06 Z67fS0KdsDY+OJNjaEH0pCG5 jY5pHaUlUxC0QQbgU782YiBitJ KhAspqg2dmx2nasOb0FdH3KGDx ifTxoWpaWRP0h7WwYz84V84c IHdpZHRoPSIxNSUiIHZhbGlnbj 5nbV7pYu6+DFXdfBX8pLS1mD6q BjUzIjC1DWciR962GqMyoJNy Wvank4kbh2zvxRd8GjYnWOQicw PeyFqrVFT0x8GhPe86Q3BxdBkb r4SqKjf9zx23vOJkx9C3uAZ3 M8NsEPEkvutxlOSzvYzaVP8xQV JukrdjFOClwW6fGEXqA7d2JmDu VhD0QQjsJ8JrgoP1SAImlGEe CItnEFA2Q34zk9E5BFCpPHBrTQ O5yBD7xO3dmCglrpeorGJalIre ouVryUtpFGtgQVehJ374MFEo nMsdAUJpuB4oFMNvaZTxtPudYA 3zMNBrookcHuGSJ3KBC9KkZHRU JVIJQ8xVKI40SY56kKLbo9N0 rFH5P9RnKOSbskulczdcdRF3VH JfQNXgyT33hKJiRFczQx7bg2C5 x445HIFpRDJboJ39Ho2zhXwn LGFevENXqQ8wyenzl3pmvaxdZx BrBQNwGKt1TQj2YDTerThrEmNe GYD1QaK8DMO8zLWepD8hhQbr btpuaP3eLck+MSEgOVOxMVi0Xw wvdGQ+NMCjENB1rOzfQUvdLJVo pV3jYKLqC4s8OhBaSsT1EJzg P6VvIGIsxztyMw71lX9lTaYyWl N5VXhmA6YztwI9JOGppAAuKQrh NKS9X86dj6J2DSXcTCKkVOG9 kWJ2eX2qsQionikvhLPsmPvgug EqyDviGDwiXMzuQ783OHTxcOte Lao3TDxdWXEgPD31SA09qKYf b0M1hLZ9E4JlBROvsmoivmujdB I6BGPvCROvyF01sLBbPPugYk8e t0P1c962TYFxBIYhjJ41Wy7g wMkoWLDbfECXeK7cfuwfy7njxv gfAmBiKGQpUFu1PQt4WMDmlMzp SnCeOJE9LrM8PXT2gNQfxF9k sUylceliqO3zTrf+RmVtYWxlPC 16LQ18lXFvn3D0qJO1K4RyJVXm cfnoyebjxDI5TROfWTVujT47 fCXzSRotPb8hm0G6t802OHQfRQ FbwH85Oe7mgRwuJFZwcAKKlP3k wbput9ptlvaoVwYqYABdEJi2 FQp8ISZqjBliPjEfKFE8GlG1YN U3xCQzkB1buSirqlprpX9cZfl+ P5F0iYB5fETecEgugAT+PC90 ro49B1GeIbioSba7CQAmIBW2eR M5dL9nDYLdRCgts8Q0eMF7J3Oi epBmzk8si9urYHIaBAorW81u qQGht5I1LJLsbFQ0IUWkiNxvIq AlwP64Vko+WXOssYmuv9DfQwqk g0art9cxoVt3UuSbTIKbglMw mGsaTYO2f5PsZt93P33tEZdfDE OoSBUgZRIvJDQveMnmbq2clJ5v Ii8+HPZhwBZ4nRT3fB3nUeAn LmX8MWadX225AvGqrXMwCchvj4 bfi2jcvLb8FeJdWPRivzRtqPbe THE7k3HkHz34K1FgpBqgh2Pf Xjo7xt04qBOxf0I5qMO4W6JgCP QlpxmsbCVjrMadZL5zXNSnstcn ZMBdzM1aESJxO2x5BuQdAgL2 VPzkM7OgirQ7AQQxtZQuJWQzoX KWwN8bdxsve4pdepvyMzNsBUSv DTm1QXe3MKTqqBhhZaDjZTX1 XeH3HOY5kUSgiN4xwStlplzsaU 9wOyc+XUs5o2zucOMcMW5beMW3 EF60TF95jZMjc1J6hIX4C0Uq URWwjlxwmqmxiBD4WCPxJQXsaX 93In2urQycXn6gRWKwZKC1LCOz oSNvV6IstA7vDvPeVDFsZLCd J8LsxXNbUSxhU694BGstBcE9KI YiayHoL3RlKEVztBisYxM8q0F1 Yb9SDM35MM89BE83wZVcn0V5 jFO1N5CaTMLdwiilunxfcHJ4TN JvQEMjuS21Xn3dbYmkRf6fEMMl QKG6TYOflNQzH3JpiW8lAqKm YRDrCULqY2TcyJRqVRtqF425QL jkSiV8YESwjoXtH9XhYTKmvOry EpD4t6B5Sy6VNq28XC38JG11 sENgu0N0xLY4V3JnCTOwkmdzuv lujUZ5KSWePYIskK50Mc5vhChi Tp9nMDTuQLY9VWGtyJXiF9Ze fJ2xLkGqITQgWXMoQ0BtcOFlUP ytC935VMpzByF0AMAzsgHeI8Ul MIUblDvsDhV1d0A9Ca0NNHxw xac9L1LrOumisMT+DF42HJRpKI 20fHPwiEByi8tgtJk6CfIoXHZq KTJ1eJsrKLaea1CnOAUiB94z bGFw (more content not included)... Normal [facility] Giardia, Direct, EIAon 01-21 G. lamblia Ag IA Ql (Stl) Negative Invalid Interpretation Code Negative [facility] Comment on above: Result Comment: Perf ormed at: [facility] [address] [id number] PhD Yolanda Jiang Performed By: #### 1 [id number] ####[facility] [id number] [place] [address] Main OR Intraoperative Recor don 01-21-2022 Main OR Intraoperative Record IntraOp Document Type FT Summary Primary Physician: Jeferson COPE MD Finalized Date/Time: 01/21/22 11:55:08 Pt. Name: ADINA PERRY/Sex: 1940 Female Med Rec #: [id number] Physician: Jeferson COPE MD Financial #: [id number] Pt. Type: O Room/Bed: / Admit/Disch: 01/17/22 [...] Craig RN, Michelle Fuentes Role Performed Anesthesiologist Gate Guard - Primary Staff - Other Analyst [employer] Time In 01/17/22 09:27:00 01/17/22 09:27:00 01/17/22 09:27:00 Time Out 01/17/22 09:55:00 01/17/22 09:55:00 01/17/22 09:55:00 Procedure EGD AND COLONOSCOPY(.) EGD AND COLONOSCOPY(.) EGD AND COLONOSCOPY(.) Comments Dr. Pennington is supervising Last Modified By: Daniel RN, Riddhi Sanchez RN, Riddhi Burrell RN 01/17/22 09:55:43 01/17/22 09:55:43 01/17/22 09:55:43 Entry 4 Entry 5 Entry 6 Case Attendee Elana Sethi CHEMISTRY INSTRUCTOR, Jasmine COPE MD, Jeferson Alford Role Performed [...] and tissue Entry 1 Skin Integrity Intact, [place], Warm, and Outcomes Met? Yes Dry Last Modified By: Riddhi Sanchez RN 01/17/22 07:29:31 Post-Care Text: The patient is free from signs and symptoms of injury caused b (more content not included)... Normal [facility] O & P EXAM, ROUTINE, REFLEXo n 01-21-2022 Ova and parasites identified Concentration Nom (Stl) Comment Invalid Interpretation Code [facility] Comment on above: Result Comment: No o va, cysts, or parasites seen. One negative specimen does not rule out the possibility of a parasitic infection. Performed at: [address] [id number] PhD Yolanda Jiang Performed By: #### 1 [id number] ####[facility] [id number] [place] [address] O & P Exam, Routineon 2021 Ova and parasites identified LM Nom (Unsp spec) Final report Invalid Interpretation Code [facility] Comment on above: Result Comment: Thes e results were obtained using wet preparation(s) and trichrome stained smear. This test does not include testing for Cryptosporidium parvum, Cyclospora, or Microsporidia. Performed at: [facility] [address], [place] [id number] PhD Yolanda Jiang Performed By: #### 1 [id number] ####[facility] [id number] [place] [address] Consenton 01-20-2022 Consent [id number]#1.00CD:127 Normal [facility] Discharge Instructionson Discharge Instructions [id number]#1.00CD:127 Normal [facility] IntraOperative Documentson 1 IntraOperative Documents [id number]#1.00CD:127 Normal [facility] Coding Summary.on 01-19-2022 Coding Summary. CD:[id number]:[id number] Gh0bWw +PGhlYWQ+RT2XOTVtX17xuVSeo R7MQ6dOXO7XJCNKTEBQBB6ALT6 bjGL8CNbiG8XtorRz NnzgbJZgEZ80LBr8VVT8rHaqXA rkjC1lbGLvG5a1FbCkWJ52cG63 XLmwYYVuHnY3NcIdopxjiMPu W3htUxLokTVnCul+PHRhYmxlIH kuYFIbGDjfNRRuStBgtNspOX3w Na2wUMDkYMVedSnsmDAfKyRx j9ruJCFbYIkzNM1cpIpuW2ZonG G4JYMet1f8Zn69qWC+PHRkIHN0 xVghXKmdi162AcAdu8ahAQY0 nDQkWWeqIED3E62cq7T2AZHgZX PnZLA9dMZ5nF4adPsxnqpxJ2Of wUIjMuD8WYF7wASyfQ4hkEem varlbL8mHba+D33CCE6XEKDLTX 9GKcz3B2RrHonapZV+OU73ZMRb LN94wCAtyFCbf3jggHw1PoPi ZFWbPHA3bLuhTEbcc0JuULIwO2 5neRXhe6W5NXPufXdemLXcBlHv iBJ8rY1mKUabiecnk5uieukh Lfyae2rhet03cB66A17sHTrkGQ OpGXT2CSZsWZNkrYxzhm2ivN3y Ii8+KEavc2oqe0zrnMw7AzTw PMZdgbBtiWkvPNG3a3XxFk09P5 NryMvbc5CfDrk2qo89gFNeg4H1 pHI8OUcqRKSmuJ2tLRirUvN3 KELgVlSspK71tYSgOPrsMx9kzG wceBmvCE5fLHXyhehqLUWpiF5m LITnfIObsAgmTC8cPVUzsorn q623QgTqKMG2KUCzyZKtM6AjkY 5sEhXhRYEmEQSjD1NlnMGfSWds I875XGseJrM7DEEvxrMtC7Pv DCBxaTxuGaB1r6I0Hf4Cw1Lqcb vgCGO7MKsiCNVzIzM3RtXcToA5 H1YbTmg5QUWejRcnTB8aS8Nj QSDpugnojkqayKY4UJDqGSFxdI 71sRXxCFumSk7ta8X0x003BLPz CIDavG48Ta8jrZhwLMWggOQN dB0eeelgv0srzowhScBhTPMjYF r3ZVx1UQIvcLeqLaLlELF3RxE5 JDQ5cVPfiH8ygNlwagowhG3l Oyc+P62rsF8nVUF0HHV5uuudXT ErshHqIR09RH06P6IzDmystGEw bGU+GUCxsoQmoZrjWD0dLvQq u2qgw2AcBHahZ5VfRMIeWFwpZq f5FYEyOCO8nFI8lF3wYBRqBQhh a4I7fBT1N9PlxmCayc1pj2zb TCWkJHjeI84ntXFmm9Z6VMMcbD M6TEZgkIlpYfFvmR57Tha+PGNv hDpgd6MhMrqiv9jvm3yqhLf3 FbFaFUNebfHibZfpLZC1x7TsXe 53Z04jQQfvHWFdHBQqOWQdGEIl qGhrzb9anV4ePw9+PGNvbCB3 oXT7kR8kJMRiBhD9YUtyG236Sc FwgBGpUjope4irw3efoVs7DaQc WBQacaDebKjhAFM2e5KuCc00 R24bJLsiGGGlAMEyIRQaSOXqmJ rwiy1ddG2bYn4+JI7mo5dact59 oR51jDT+VMWkFRQ1wJjsVYid ESLlmN3kVJqiIgW6NKDtIhZfcJ 89mZErVSypDx5qkElaeHjoZU1k VMZdfdwhg836NhKcn8uxKJWg aDAfZAsmBZP5W90it7G5NYUgGU OqXXP5vSX1vI1wxYfoufoqzTDy sNlgksFjyVydOYmyEPliA365 IHRvcDsnPlBhdGllbnQgTmFtZT b6G0HgIbo6LKQdgXioMU6naOTn VIhbDl5vhInghYchBF1pIPSq edwli393HlPhm9fiELKxzBYbYS pgCXV3D61bv3A0LOXvPKOpRYV0 sQY0cV0fqXyshfbwmSXufXno ljOaoEtaCKxnTHyfV595AGXusJ goGzYqdxCqPMZxtHC3BI91QJ34 pQEbv0N0sNO0C6McRGFjvpge kdfdnXA6SPSuTGYjhW82Jy9imV hmFn7uVXGhMQU2NFNxuUOaS5Nj nD0tLxHiYGThWWGhJ6MoiVCo MWnpR417CYjrSwY3UPWsztFaP0 ItKXEgiMhwLzL5i9A8Dc8OX3D8 ER83FI31bUCof8M0qSP5R5Oy OXDpfvpdqnfiuUO8WDIaSYVwhL 42Ot2zaWbuKw3qQOZoNFE3WQKb hCEyN9ZkuY4zLpHcRXDwLPCe Q9WrxZCkYJqvD128TRmeJwN9HI ImxvUiS0CtLWDgnWyhTpR6h3E6 Mp5TLDi0MQ01ZP17hRQbv0Y9 hLS2U1VjJXYholwglpfvsIR7WT PtOSWqzG82Cc4wsPrrBm9jEWKz CDA3BEZbiBNsC6YrkK5iRgFy KAIqLIHzR4TnkVKkBGxoE449BQ zmBmW8OJNghiJyT1ZpPUYktVbg PjY8m9Y8Yc7OAEKgHR66AFF3 wCR6ZU04CS51H7BsPxbgvCMpzC U+PHRhYmxlIHdpZHRoPScxMDAl WjJdgRyeFU3yMk8dCTIcKYSk wBqckTWeRkSrw1mbYZMvZSloKU 3djKxtI2VvvGH5DXNox1v1Yx01 Z53uJ7EhxLS+JICzuDM3wXP5 uS4fQwHwPtW4JLwkK761VpLhwL DdCgpag1lpm0wvlFk7QyU5SLLd ugZmxOysRZE9g6FaXz02E38m IHdpZHRoPSIxNSUiIHZhbGlnbj 4haH7qUf8+REVzfVL2vIO4zN0r NrCpAqV5XItqR017IkOfoAOh Kzjka9ucp1tcnWo3KgMlMQNvav FupWzvBRS1f6BrEq92D6JxtVuf e5DkCcu5ry52cWBas6V5nHO0 J6RiHXWramkecCOqwRwpNB2bBM EazmddPRZesK4sHAQqB2p1KoOz OtJ1NKjoN8XxuwM0PYEhgFCa VHcfJVK8H04km4K0FWXtLXNiYO F7sKZ4hT8vvWjsvvltzVDqsNca akAdnXlhCQppRUkeD308EVEu gEvfWBFimM4sDUBxfOYukUznZB 3kEFXdfxynRmYLS2CKB0BlGRXZ GMIUE6wJCC54ES12uUCni0K7 rCX0A4UwBTGgwmbvbmmypQI7FA UpFUZjiE80eNGmOFtrOl0hl7O8 x994TVUoMQWwvR99Sx2ccRwb KFYsyATLmU3iderkr5irhrlqYl XgBOQkSWq2IYn4EYZswSzjNxLu WNY0FwW5XET6vINjmD4ewPkf novbrW8fLph+UUGmOJTkVZj9Jp wvdGQ+ACLuEDN4cPwdNKgkMBAl kC0bZUGbG4h3OnLpLiH4PIdv Q2NgHHAbkchjBd05eN6tRpSjUs C4YLfqO5RjjmD9ZFSpuMKsFFyb CNV0P20vi0G9TCBoGICxRBW8 rDX5uK1thBcjoeatgTMuqZwzqf NjsFleVKrsYCcwW115UHHvtGcs Txs3CFyrHPEyGO01PS50gRCr x7X3tYT4W2ZuJKGlfucamtlchX Q6MFRnTPYaiL16eQLmTDunDk8e s0Q9c960KIZpXMRbtT12Jm6r uIplKWWzcAASiB0gijykx5jgjf ioKkJwSBUzZGh2MZe0DPTbyXls ScEkXXI7TnE3HVP1gUVsvG2v tCvslgwgiI2oCmq+RmVtYWxlPC 75BT66rXVpk0U1gMH6E5CwMPEh skpgmkijrRW5TLAlFLFhnL32 oLNvHUefFx6is7T1j243IIOmOS HlpC80Lr1qmEnxZRQtzYRQfD4y yksrc7bdwwtyMqBeELCpIJh6 HIi8WUEjaZvbCnPkSVT1LsF8YV T0hOWnhU5ybEzkblmznT2mBcq+ KREgVYNan0Uqm9EmLE77RA31 W5EnAymvkMRimON+PHRhYmxlIH gvYAJrCWvkKWYeQrWpeTiiXV8o Sm5eGYPcJQWzkMhrgXBtVmDi d0lmQJYvGQhiLH4edCavG7SnuI D1SYDyp1e1Ed58W08dM7LhlGK+ NMTzgMU6yPN6fM0hHvPlDaE9 KMbsA062EkMbxDDrTkrxs3kwg0 aztTv6JqWlFCErasHmuOimNEB3 e8JrEt68Q57fEIxhVUMtPQPd NJGaKNSvuRystz1xrO6oIo5+PG VdqNN4dJY9yH7zGlGdVbV2HPhs V723XpJzyHAiJqsvR16gH8Mb dXA+OBAcRas9PWJzxPrmRY4eeU WkIEndHd6yFZH0RcWsMaIrTTjy C1FiLONvvmstqmateEA3HMSv DQCetC48Qg7ogJmfRg8oZVVlII E9NCOdiKMiL4PnzK6gIjZkXCRw ERGtZ2LqwBMwXTfwI745UTyu TzZ6CFLcmvPqL5ObVJLebJdfOg V0o3J3Sv1JrHnbtWJgIF8qKoNn LGq7E8ZyMhv6SURmeAseAP7r tHRqPUjtLz6orIymnMjcWV4cNV Nlvmtrc532CbOfq9zkRVQypAWf UDyyTHU5Z74is1C4DXLwZKAa KTE3xFE1mJ7hwUjehzcrkFXyaE gvswHahEhwYEzpBLgyX534IGQk wJzaVkEHApe1J8RxIds7WODe bFkjPE9zyLKcJLelSo9wbZngmL cpIC8yXJKhvmtic444QkCbn3mj OTBpxCKtRQcgETG3X77zs3Y7 VSHtWSWsGZK8bQT3vO9ucXuzmd ogbGVmdDsgdmVydGljYWwtYWxp K145JTRrnWdeWv5MSoi7O3Ep Xlw1MLIfvNqsOO2wuSZyTXofQw 0jnTvfyKecBO1oHMKrqiyza521 JxOiz0myDSYnkQBuIEvfIGS1 S97ie0Z4FCReAWBkGGU1mDW3aJ 1hbGlnbjogbGVmdDsgdmVydGlj DSjhAFilG689ERKnmDpvCmSk eWVyOjwvdGQ+VX56hb06O0AcTq csHxg9ERFlPFC6oCR8tR0sHNTj PEyzt4T2hDL9H7FfdiAmni5n b2xs (more content not included)... Normal [facility] Consent for Treatmenton 01-04 Consent for Treatment [id number]:127 Normal [facility] Endoscopic Procedure Report - Otheron 01-17-2022 Endoscopic [...] Follow-up in GI clinic in 2 weeks [facility] Comment on above: Result Comment: Elec tronically Signed By: ANATOLIY ERIC, Jeferson\.br\Date and Time Signed: 01/17/22 09:56 EDT Other Comment: Quyen vieira Attachment - attachment storage system not supported [id number] Can be viewed in source systemMissing Attachment - attachment storage system not supported [id number] Can be viewed in source systemMissing Attachment - attachment storage system not supported [id number] Can be viewed in source systemMissing Attachment - attachment storage system not supported [id number] Can be viewed in source systemMissing Attachment - attachment storage system not supported [id number] Can be viewed in source systemMissing Attachment - attachment storage system not supported [id number] Can be viewed in source systemMissing Attachment - attachment storage system not supported [id number] Can be viewed in source system Endoscopic [...] GI clinic follow-up in 2 weeks Normal [facility] Comment on above: Result Comment: in e [...] Return to activities:: After 24 hours. Normal [facility] Comment on above: Result Comment: Elec tronically Signed By: Jeferson COPE MD\.br\Date and Time Signed: 01/17/22 09:55 EDT Other Comment: Quyen vieira Attachment - attachment storage system not supported [id number] Can be viewed in source systemMissing Attachment - attachment storage system not supported [id number] Can be viewed in source systemMissing Attachment - attachment storage system not supported [id number] Can be viewed in source system Inpatient Patient Summaryon 01-17-2022 Inpatient Patient Summary [address] [address] [facility] Clinical Discharge Instructions PERSON INFORMATION Name: ADINA PERRY PHYSICIANS Admitting Physician: Jeferson COPE MD Attending Physician: Jeferson COPE MD PCP: ADRIANA CRUZ DO Discharge Diagnosis: Anemia Comment: PATIENT EDUCATION INFORMATION Instructions: Upper Endoscopy, Adult, Care After; Colonoscopy, Care After Surgery Anatoliy (CUSTOM); Diverticulosis MAGR (CUSTOM) Medication Leaflets: Follow up: With: Address: When: Jeferson COPE [address] [place] [address]. [address] [place], [place] [phone] Business (1) Comments: office will call for follow up Type Location Start [address] 02/03/2022 10:20 AM 02/03/2022 10:40 AM [...] (Vitamin D3) sertraline spironolactone Comment: Normal [place] Main OR PACU I Recordon 01-04 Main OR PACU I Record PACU Phase I Docum ent Type FT Summary Primary Physician: Jeferson COPE MD Finalized Date/Time: 01/17/22 10:57:57 Pt. Name: ADINA PERRY Umberto/Sex: 1940 Female Med Rec #: [id number] Physician: Jeferson COPE MD Financial #: [id number] Pt. Type: O Room/Bed: / Admit/Disch: 01/17/22 [...] By: Jennifer Becerra RN 01/17/22 10:57 Normal [facility] Main OR Preoperative Recordo n 01-17-2022 Main OR Preoperative Record Holding Area Document Type FT Summary Primary Physician: Jeferson COPE MD Finalized Date/Time: 01/17/22 07:57:32 Pt. Name: YOSELYNNIKKIJenelleADINA/Sex: 1940 Female Med Rec #: [id number] Physician: Jeferson COPE MD Financial #: [id number] Pt. Type: O Room/Bed: / Admit/Disch: 01/17/22 [...] By: Regino Beckett RN 01/17/22 07:57 Normal [facility] Monitor Recordon 01-17-2022 Monitor Record [id number]#[id number]:127 Normal [facility] Monitor Record [id number]#[id number]:127 Normal [facility] Outpatient Surgery Discharge Instructionon 01-17-2022 Outpatient Surgery Discharge Instruction [place] [id number] Patient Discharge Instructions PERSON INFORMATION Name: ADINA PERYR Date of : 1940 Current Date: 01/17/2022 [...] up: With: Address: When: Jeferson WATKINSNOLVIA [address] [place] [phone] Business (1) Comments: office will call for follow up Type Location Start [address] MARÍA Jarquin 02/03/2022 10:20 AM 02/03/2022 10:40 AM Confirmed Pharmacy Information: [facility] You may receive a survey from [employer] asking you to rate your care experience. Your feedback is important and will help us understand what we do well and how we can improve the quality of care we provide to you, your loved ones and our community. It?s an honor to serve you. Thank you for choosing [facility] HERE ARE THE MEDICATION CHANGES THAT OCCURRED [...] activities are safe for you. ? Take sbuj-xyf-syesuoy and prescription medicines only as told by [...] 09/21/2012 Document Revised: 09/14/2018 Document Reviewed: 08/23/2018 [employer] Patient Education ? 2020 [email or web address]. Colonoscopy Care After Surgery Please read the ins (more content not included)... Normal [place] [facility] Patient Education - Texton 1 Patient Education [...] unsweetened, w/added ascorbic acid 1 cup 0.5 Webb 1 cup 0.7 Vegetables Cooked Green beans 1 cup 4.0 Carrots 1/2 cup sliced 2.3 Peas 1 cup 8.8 Potato (baked, with skin) 1 medium potato 3.8 Raw [place] (with peel) 1 cucumber 1.5 Lettuce 1 [...] IMMEDIATE MEDIC (more content not included)... Normal [facility] Progress Note-Physicianon Progress Note-Physician Patient: ADINA PERRY [...] PACU when criteria met. Condition good. Normal [facility] Comment on above: Result Comment: Elec tronically [...] list: All Problems Anemia / SNOMED CT 870258059 / Confirmed Watery diarrhea / SNOMED CT 413358753 / Confirmed History of colon polyps / SNOMED CT 7495776586 / Confirmed Fecal incontinence / SNOMED CT 765358386 / Confirmed Nausea and vomiting / SNOMED CT 29499412 / Confirmed RLQ abdominal pain / SNOMED CT 442194153 / Confirmed Weight loss / SNOMED CT 048701711 / Confirmed, Active Problems (7) Anemia Fecal incontinence History of colon polyps Nausea and vomiting RLQ abdominal pain Watery diarrhea Weight loss Histories Past Medical History: No active or resolved past medical history items have been selected or recorded. Family History: Heart disease Father Primary malignant neoplasm of lung Sister Diabetes mellitus type 2 Father Brother Procedure history: EGD - Esophagogastroduodenoscopy ([id number]) on 07/06/2020 at 80 Years. Comments: 01/09/2022 16:03 EDT - Rajwinder Ho Dr Colonoscopy ([id number]). Comments: 01/09/2022 16:02 LIDIAT - Rajwinder Ho [...] review: No qualifying data available . Plan [place] [employer] (ASA) physical status classification: Class II. Anesthetic Preoperative Plan Anesthesia: Monitored anesthesia care and general anesthesia possible. Anesthetic plan, risks, benefits, and alternatives discussed with the patient and/or family. Pt. and/or family present and agree to proceed as planned.. Risks discussed including heart, lung, nerve damage. Risks of bleeding, dental injury, hospitalization, and general injury discussed. . Normal [facility] Comment on above: Result Comment: Elec tronically Signed By: Eliecer Pennington DO\.br\Date and Time Signed: 01/17/22 08:36 EDT Coding Summary.on 01-16-2022 Coding Summary. CD:[id number] Gh0bWw +PGhlYWQ+JG9DUQLsG88exNJzr E0MR3oEVB3EFIADGRCFDS1JPX8 qoWY3JQbuV1XrqwJw HzpyzKZeAE43GVc8ZFG6gIhtJD fdvP3hxGSaG7f7BtAjKB57mV79 XAfgNKWqCeZ9RpDuyusmbHJe N9fbMeHfuATfSiz+PHRhYmxlIH hxNOLkBNgvRNLhPgLlxRhoNX4z Wf3wITBvCDBcoBzexSYeLvVi q8ruFKViPJqyFZ4zyOmpE6VgeB A1XMIdo6l7Kt00eJC+PHRkIHN0 sYzwNXkpl948LpWjq9vjCAR2 vVDvOBdvBHY5S04ui0H3BQRaJT OtPNH8aMZ5rZ3agDxtnbvlX8Mr mPRxHsE3JEX6mOKjtI6gvHcn eeykwM3rXmc+M93CJH1FKGBAAO 1NAyn0I2JjFxgpvNG+CY91PRJb QW51uHVtkCVeh3vnpIy6ZjJi DMXmKAU9xHfvBTmos5YdOTAxD1 8taKQgu3W7DTIorHkdhPWvFwKl pXL7hA0wIIifctjjk9wfsccn Zrzrh7zper20zB86D32sUVtmXA HwETA1CIFkZDBjdHfmsc2jgF2r Ii8+QVdzc5tec7aqdWp4CuNd BOQkfoLqiRmrRCT4s4RfYr64R7 FfnUsho6FxThk2sr43dOTzj1P9 oKC5OSklXOMcrG3lNKjoGgD9 EPZvGsDzoE83sAYoAQrbVo1bfH soiNlgOR4xKTOumfctJMVpsJ1t NUNwbTVjwNhhBO8vNMIccpxf a412SuTpRCA1OPWflJDrK6WpoQ 5kZrZwNOIcXWGbI3WyvKNtVRck S824BOiySoX2FQMdzeRcC9Vw VQXviIydIdT4g6M3Ra5Lu9Aynq ojARO5KQfpPMMgVwAvVmSqBkD6 F0VvPyk5QREbmBhaEE5gW2Me AEFjzrfaekpqsTH4SOMiZBFalS 54eLEzIHjqXv2et5I3x749UILk YCCxkT70Zp4eiSsuWQBvkUNG lZ6bkmmgo9cqtpetZpToTTCfHJ p7IFb7HABlcPwdSbCfXCD8YkC8 SZH2rMUnfQ1zuAiucwgftD8m Oyc+F09yxA1iHZM4YXH6xqnyNT ExodKuYD68MH01K5XaOodlnNOv bGU+ULWixhDovZxyNT5yKxXy x9cya3QiMOyvR5ZdVRDvJPfcBk a8TTXbYJO9dLT4pP1cKNGhUMhp q2L0gLS5Z5JkzzCzdb4lj5hx NXBxJCatQ85veRYsv5K0DWFjtV I5OLRxcZqyAmXtxH22Epm+PGNv dYfiu9KmOnrlq9fze1juyTu0 QtWnPPImqpFnoEavGYQ8n5YgLx 14W02pQRjhTEFtNCZaCMRiDUPx nNlmpa7nrH1uKa8+PGNvbCB3 mZR4gS7qDJFvMvJ0XJyaW812Zq HyaQGnXoryr4rmt2hwsWy0RsAd OWChkiPewNwzTXO2x2HjCg24 Q87wMQlmQRPoUIHoOOWwSZRbiC njdj2klI2iKg7+WW5uw0kdgs56 qZ69aXC+WVCcDVR5zVxyBPav XVGtnU6mAGtdNpQ0NNEgZvVnkG 32xLNzWNlbQb6sgTcqeMtvTD6u OBEybpndb076YoYix8kjVNJm xAYeQJwdWAN1I54pi5W5APTrCG HaPTI2tIR0gA1yvUidhovouFKl mXdjjwGhrRbnDGdzOZjbY918 IHRvcDsnPlBhdGllbnQgTmFtZT k0D2UyGst9ZCHlaFmvQD3ysQPl YEnxFs2rdNyrcYacAQ8aAMBt rbwvk207DwBya2yvUTBufFIjBI kmYXT9P80sn0N3QDVdUKNyBCP5 bEZ6dS1vsWdpitsppJYciHop xgFpnCplORqaQTevR234MALujK evGtFgjjJvZZTsoCA9RC67IN86 rFXao4R5dQF5H9NrBLPtscrc hbjyqRX7PKKfCCKpvG67Nt2rdA usDb1gSRUmMAU2YBUokKUxV5Mg uE0wTcBdSOWkZKBsB0WppBDs PJviV979PXnwSuK8CBHzsxFhP9 KyXTAsdAutXdT2w2G4Cl0VO5U8 IM42MT21hOQyd0J6iPS8Y3Ki EQTctixoawpybAA7YOLjDUQtrJ 37Yz0hfIhsJc0oBSXrOBJ8PVQc rRXjV3DbeC8uOvLiCJQoEXLo F7UqsZHoTRpuI850VPzyUuE8CG AtloFeX1JyPFLyuFkuQkR7m6J0 Vi1QIWw1AS16MW40dSQqo2D3 bBA1V7IzGQUqkzclvrfwmQK3LD QtDIMfcR69Cd1khJxdDu2bGBGi SUG5YIJweAZbS5MigQ8fZnQj XQJoUGVfX1IrhSMmDXleE995ML haVpW7OBOwzqFuT3MqJMTexTrg NhM9d2F4Eg3AEEPeUK58XAF1 rRE2PS77UP55L9YvPxpwwZLivC U+PHRhYmxlIHdpZHRoPScxMDAl NvBnhEvxIH3mBi8qHJZkUHSj zGezhWCjWpBdw5lvQZVpYVtuMU 1tkCurW7FthFS7XGBxa4d5Ig57 N46tG9QjnYS+CXMxcEM3aTP6 gS6dXhLdGmW3HMojO641WoQmlJ PmQhubt6qup7iwfCb9AbH0VWPf cgBnqQwxART9q4JyBz29I14i IHdpZHRoPSIxNSUiIHZhbGlnbj 8xeF3aDt8+GDHqgTH0qWE5eT4w TqEpRoA6ISzbI059AeWdnTAw Tyhyp4xul6hejUl3OqXnTFQihw RlsFvgLBQ6t0EuFs02I0QziKjd x0BiVkt1kz28cRMcy1X3oYP2 P2KdRRWvutpdrVKpeYdgJK3nSB BzdjthZGPpaS5oKMMsN7w9ScPw IwC6KUpdI8XagnS6IVFsjUEs TGfzETB5U10pf9I2MTJrRDMyWT H1xCI4pL5mtJnbjcrlnWIhsGhf xbYkrOwyTNjuSPqlM494WNQg iUwuIHKnxN3mGQHttAQchHwwVJ 3aVEJhtjuqKhASV0XZH1VfXWPS MCGQP9xJQB28RE35uLIjh8M8 iPT9Y0RpVAOukfctxiuoiSK4OT IwFCWylQ53sYWoIXczDl7ga0H6 b960IDFaOCMsvA25Qf9gaHvb LXUqjXCGmS8eyfuiw2ipxuwaPc PbLIDuTCa6SHr1DNDbjRwqWdSc APC8CyN3HRB9mBEurC6diMdb bdmrnV8kHzl+TBOvNWOmLVx0Yn wvdGQ+GXLcHMM0wYflGMawZJSw oK7kRHWdW4f2DcFyHxH1FUnr A1AjCHPlioifFh45fH3xAtOdBp P5PNrrX9SimsR0IMRoeVJkHFjq ZRL9S34bf7B8WNKmKIKoWCD1 kAS4eP0kfMwdymatwWYpbRbamx KdiQvbPKytRGppP836HFKgnAfj Mjw0KYeyRZThXY41PU84aISp j8U8oVM0N7UzPRLiuaxcyptijN T3EEHtGMHawD36pZIdQEkbNh8w h8T1c354EGNyDWNlsK19Jn9f yScfHQDufZQHkG6dcrokt6lfod tuReMcLPUnTUn7ODu7SVMpmQze AsVsFQZ3TtM6TBB6sOYbjZ4i aEgreoeqiO7sIxq+RmVtYWxlPC 07YU99nLOri8P0bDB1F2EnZMWd zwtyrfevpYB9CVPjCDOwjD94 uTKlWIkbBd2bs2I5d222ALZfFY RflN11Mz4qiXgyINDtoPHUnC2u wlfts7snaofrCmEdSOOsSJa7 SMe0SDSlpJabVkVmSTT0OlV9SB A8pNGghZ8kfOkvztsdzT1xTfj+ Q9V8fRT5iOQctDjufDF+PC90 ag41S4InSlhrQbj9SHWjLWM0pF L8eA6kUNUqNEbsy7V3kJZ1F9Wx wbEybc6dt0dmALCoYRqdI77f fOIxi7Z4PGXwkVL7ALWzaYvkId XiuL58Cjo+KUNatIhrg4YqQsri u5gtu2dsxWo2BxGdPNUngcBc tZtjXNX0x9AqAn82E18qJIwvUP PiEUUlTTBnCCHbnCrppe9flL6q Ii8+BJQqlCB6tXH1dF4eRqLg YqQ8INndT283MhKosROvLfgdt1 hqh9dxuDg5TyUjVIYisxCicWvz PJA6e6ZyZb66V3EguYjyz5Yd Eed3dx13tDTmh9N6aJM0B3VzQM LkjjqglHDotRrqNK2hZHIjpftz KWKupX2iCJAwX5c9MlEnZoW4 BSevS9DszcY5BZNzzAUfMTWcgO IEsF8lohgvl6mfilwuUrVzODMh NFf7WDu6TLCnlNxqKoOaQEA1 VmG6RWD0jUGbzB4lkDtgfhoxhA 9wOyc+RJb6f8dcaTOdRP5syZN1 TC67IJ28cYMla3J7nYI0W1Qx TXPebxurzthdiLD8HMAfUQZgnL 57Pg4zwWycFz9dSDRpNYL9DPBr oJCfS8JzjX1iVpKdZABbNAXs W9AdbTEmQTthL372SHmlBsC9AB SajcRqP6KhBSPjyVjgJyM7d1T7 Sp4QEP21ZN93SL42eLSow3D0 rWA8H1NjETBjguoqldlwqTB8NM KwPXJgsL86Jd3abLgdAm8nBODw KPC4KHTbnVZnZ8DtqT7gBfGs EKYsMQThI4FeuHSzFLgpM845ZN ujPrM9GJHbggHnB8OkUCCscBif GmD4a4N6Mw4ZRe73ZZ96AH05 lRQjf4I0dJV5T6YiBERydugoft crcMZ6PTBlUYIxyP77Xr2izQou Ba1sGPFwPCQ9VTIafNCrC5Ar qB6rTqXhDVWwQJJlV9IdlRGsBT uiM889BVqdMmQ3QHPufcWnD9Xj QEBmmYoeUbT4w7A4Pz2KDLdl vhb9P4RvEhucpSF+DL27FAXjPL 49gQQndCDjk0qufZy3KtLoCKOv SXA4sXivOZpcj0IkWIUlQ51b bGFw (more content not included)... Normal [facility] C. diff by PCRon 01-14-2022 Clostridium difficile by PCR see comment Invalid Interpretation Code [facility] Comment on above: Result Comment: Unab le [...] its clinical significance. Performed By: #### 1 [id number], [id number], 37499287, 76317966, 30372333, 57346039 ####[facility] [address] [place] [address] Consent for Procedure/Surger yon 01-14-2022 Consent for Procedure/Surgery [id number]:127 Normal [facility] Enteric Panel by PCRon 01-14 C. coli+jejuni+upsaliens is DNA FERN+non-probe Ql (Stl) Not detected Normal [facility] Comment on above: Result Comment: Test ing was performed utilizing reverse cycle consultant (RT), polymerase chain reaction (PCR), and array [...] nulcleic acid test. Performed By: #### 1 [id number], 295993522, 25765705, 43289166, 47043180, 28436816 ####[facility] [address] [place] [address] E. coli stx1+stx2 genes FERN+non-probe Ql (Stl) Negative Normal [facility] Comment on above: Performed By: #### 1 [id number], 718266744, 94757121, 83193113, 96282369, 41121096 ####[facility] [address] [place] [address] Enteric Panel by PCR Negative Normal [facility] Enteric Panel Intrl QC Pass Normal [facility] Comment on above: Result Comment: Test ing was performed utilizing reverse cycle consultant (RT), polymerase chain reaction (PCR), and array [...] 1 and 2. Performed By: #### 1 [id number], 934189428, 32752570, 68097496, 07941955, 62581016 ####[address] [place] [address] Norovirus genogroup I+II RNA FERN+non-probe Ql (Stl) Not detected Normal [facility] Comment on above: Performed By: #### 1 [id number], 280697582, 41754879, 42776051, 49101217, 49773427 ####[facility] [address] [place] [address] Rotavirus A RNA FERN+non-probe Ql (Stl) Not detected Normal [facility] Comment on above: Performed By: #### 1 [id number], 508685013, 99186447, 01352485, 25958592, 38172269 ####[facility] [address] [place] [address] S. enterica+bongori DNA FERN+non-probe Ql (Stl) Not detected Normal [facility] Comment on above: Result Comment: This test result should be correlated with clinical presentations and medical history by a healthcare provider to determine its clinical significance. Performed By: #### 1 [id number], 320359579, 90343398, 93347142, 20360598, 94734678 ####[facility] [address] [place] [address] Shigella species+EIEC invasion plasmid antigen H ipaH gene FERN+non-probe Ql (Stl) Not detected Normal [facility] Comment on above: Performed By: #### 1 [id number], 060181485, 69836796, 67295417, 69179474, 59686175 ####[address] [place] [address] V. cholerae+parahaemolyt icus+vulnificus DNA FERN+non-probe Ql (Stl) Not detected Normal [facility] Comment on above: Performed By: #### 1 333804499, 533199913, 30820633, 30947118, 37457794, 07935851 ####[facility] [address] [place] [address] Y. enterocolitica DNA FERN+non-probe Ql (Stl) Not detected Normal [facility] Comment on above: Performed By: #### 1 [id number], 967964240, 74161150, 56698405, 56196839, 74013818 ####[facility] [address] [place] [address] Fecal WBC Lactoferrinon 01-04 Fecal WBC Lactoferrin Negative Normal Negative [facility] Comment on above: Result Comment: The semi-quantitative detection of elevated levels of fecal lactoferrin is a marker for fecal leukocytes and an indication of intestinal inflammation. Performed By: #### 1 [id number], 028470169, 13667203, 73562031, 24386643, 30265867 #### [facility] [address] [place] [address] Ambulatory Visit Summaryon 1 Ambulatory Visit Summary [...] diarrhea Invalid Interpretation Code RLQ abdominal pain [facility] Auto Diffon 01-10-2022 Basophils/100 WBC (Bld) 1.0 % Normal 0.0-2.0 [facility] Comment on above: Order Comment: Order Added by Discern Expert. Performed By: #### 2 711156, 3802264, 69844157, 1084143 ####[facility] [address] [place] [address] Basophils/Leukocytes Auto (Bld) [Pure # fraction] 0.1 E9/L Normal 0.0-0.2 [facility] Comment on above: Order Comment: Order Added by Discern Expert. Performed By: #### 2 399123, 4108114, 79654130, 3140086 ####[facility] [address] [place] [address] Eosinophils/100 WBC (Bld) 1.0 % Normal 0.0-8.0 [facility] Comment on above: Order Comment: Order Added by Discern Expert. Performed By: #### 2 118655, 6914551, 77177426, 3120729 ####[address] [place] [address] Eosinophils/Leukocyte s Auto (Bld) [Pure # fraction] 0.1 E9/L Normal 0.0-0.5 [facility] Comment on above: Order Comment: Order Added by Discern Expert. Performed By: #### 2 201798, 9721164, 64582587, 8461672 ####[address] [address] Lymphocytes/100 WBC (Bld) 20.0 % Normal 14.0-50.0 [facility] Comment on above: Order Comment: Order Added by Ramírez Expert. Performed By: #### 2 854418, 2220915, 82868346, 3005380 ####[address] [address] Lymphocytes/Leukocyte s Auto (Bld) [Pure # fraction] 2.0 E9/L Normal 1.0-4.0 [facility] Comment on above: Order Comment: Order Added by Ramírez Expert. Performed By: #### 2 669583, 9721631, 41476164, 3785300 ####[address] [address] Monocytes/100 WBC (Bld) 8.7 % Normal 4.0-14.0 [facility] Comment on above: Order Comment: Order Added by Discern Expert. Performed By: #### 2 915362, 4275067, 26916606, 5567373 ####[address] [address] Monocytes/Leukocytes Auto (Bld) [Pure # fraction] 0.9 E9/L Normal 0.2-1.0 [facility] Comment on above: Order Comment: Order Added by Ramírez Expert. Performed By: #### 2 299875, 3384169, 65319758, 8696982 ####[address] [address] Neutrophils/100 WBC (Bld) 69.3 % Normal 36.0-75.0 [facility] Comment on above: Order Comment: Order Added by Discern Expert. Performed By: #### 2 255371, 4205642, 02434373, 6168516 ####[address] [place] [address] Neutrophils/Leukocyte s Auto (Bld) [Pure # fraction] 7.0 E9/L Normal 2.0-7.5 [facility] Comment on above: Order Comment: Order Added by Discern Expert. Performed By: #### 2 357387, 7853099, 57559274, 9928308 ####[address] [address] CBC w/ Auto Diffon Erythrocyte distribution width (RBC) [Ratio] 14.7 % High 10.9-14.2 [facility] Comment on above: Performed By: #### 2 804629, 1685962, 91412042, 4981533 ####[address] [address] Hematocrit (Bld) [Volume fraction] 37.1 % Normal 34.0-46.0 [facility] Comment on above: Performed By: #### 2 398966, 5293061, 35035548, 3369695 ####[address] [address] Hemoglobin (Bld) [Mass/Vol] 12.2 g/dL Normal 12.0-16.0 [facility] Comment on above: Performed By: #### 2 041938, 1016968, 44725565, 3803483 ####[address] [address] MCH (RBC) [Entitic mass] 30.0 pg Normal 27.0-34.0 [facility] Comment on above: Performed By: #### 2 378564, 5158456, 48345879, 9419168 ####[address] [address] MCHC (RBC) [Mass/Vol] 33.0 g/dL Normal 31.4-36.0 [facility] Comment on above: Performed By: #### 2 577874, 2078536, 31475583, 8550467 ####[facility] [address] [place] [address] MCV (RBC) [Entitic vol] 90.8 fL Normal 80.0-100.0 [facility] Comment on above: Performed By: #### 2 599523, 3039462, 81713118, 8356964 ####[address] [address] Platelet mean volume (Bld) [Entitic vol] 7.9 fL Normal 6.4-10.8 [facility] Comment on above: Performed By: #### 2 818349, 1256498, 33860022, 0112298 ####[address] Platelets (Bld) [#/Vol] 281.0 E9/L Normal 150.0-500. 0 [facility] Comment on above: Performed By: #### 2 301541, 3639157, 00490671, 6006221 ####[address] [address] RBC (Bld) [#/Vol] 4.1 E12/L Low 4.3-5.9 [facility] Comment on above: Performed By: #### 2 709059, 0299897, 27652329, 6574196 ####[address] [address] WBC corrected for nucl RBC Auto (Bld) [#/Vol] 10.1 E9/L Normal 4.0-11.0 [facility] Comment on above: Performed By: #### 2 168349, 4467787, 43516674, 7833294 ####[address] [address] CMPon 01-10-2022 Albumin [Mass/Vol] 4.4 g/dL Normal 3.3-5.0 [facility] Comment on above: Performed By: #### 2 053520, 8052021, 42796933, 9637658 ####[address] [place] [address] Albumin/Globulin (S) [Mass conc ratio] 1.5 Normal 1.1-2.2 [facility] Comment on above: Performed By: #### 2 061925, 8373320, 22638484, 8570502 ####[address] [address] ALP [Catalytic activity/Vol] 55 Int._Unit/L Normal 21-98 [facility] Comment on above: Performed By: #### 2 016031, 8725801, 22256447, 5810993 ####[address] [address] ALT No additional P-5'-P [Catalytic activity/Vol] 15 Int._Unit/L Normal 6-46 [facility] Comment on above: Performed By: #### 2 133326, 0801212, 85113708, 3169702 ####[facility] [address] [place] [address] Anion gap [Moles/Vol] 19 mmol/L High 6-16 [facility] Comment on above: Performed By: #### 2 017279, 3159963, 10139116, 1455267 ####[address] [place] [address] AST [Catalytic activity/Vol] 19 Int._Unit/L Normal 5-43 [facility] Comment on above: Performed By: #### 2 037561, 1618038, 21691511, 7386805 ####[facility] [address] [place] [address] Bilirubin [Mass/Vol] 0.7 mg/dL Normal 0.0-1.1 [facility] Comment on above: Performed By: #### 2 594709, 1438727, 57719943, 6450878 ####[facility] [address] [place] [address] Calcium [Mass/Vol] 10.5 mg/dL Normal 8.9-11.1 [facility] Comment on above: Performed By: #### 2 1009[address], 3947389, 43610128, 1637363 ####[facility] [address] [place] [address] Chloride [Moles/Vol] 103 mmol/L Normal 101-111 [facility] Comment on above: Performed By: #### 2 574242, 1469926, 73161479, 8232021 ####[facility] [address] [place] [address] CO2 [Moles/Vol] 23 mmol/L Normal 21-31 [facility] Comment on above: Performed By: #### 2 134715, 8021956, 58825805, 3059254 ####[facility] [address] [place] [address] Creatinine [Mass/Vol] 1.2 mg/dL Normal 0.5-1.3 [facility] Comment on above: Performed By: #### 2 669625, 7728041, 72063835, 8539547 ####[facility] [address] [facility] [address] Globulin (S) [Mass/Vol] 2.9 g/dL Normal 1.4-4.0 [facility] Comment on above: Performed By: #### 2 867416, 8025586, 66743204, 9805007 ####[facility] [address] [place] [address] Glucose [Mass/Vol] 94 mg/dL Normal 55-199 [facility] Comment on above: Result Comment: If t his glucose result represents a fasting glucose, interpretation should refer to the following reference range: 55-99 mg/dL Performed By: #### 2 298970, 1443033, 56261369, 0792455 ####[facility] [address] [place] [address] Potassium [Moles/Vol] 4.7 mmol/L Normal 3.5-5.3 [facility] Comment on above: Performed By: #### 2 704779, 5667466, 71711215, 5861125 ####[facility] [address] [place] [address] Protein [Mass/Vol] 7.3 g/dL Normal 6.0-7.8 [facility] Comment on above: Performed By: #### 2 348116, 6869268, 98711518, 8043917 ####[facility] [address] [place] [address] Sodium [Moles/Vol] 140 mmol/L Normal 135-145 [facility] Comment on above: Performed By: #### 2 757961, 3870358, 88503752, 8193649 ####[facility] [address] [place] [address] Urea nitrogen [Mass/Vol] 25 mg/dL High 5-21 [facility] Comment on above: Performed By: #### 2 788056, 3734801, 69460670, 8967295 ####[facility] [address] [place] [address] Urea nitrogen/Creatinine [Mass ratio] 21 No Units High 10-20 [facility] Comment on above: Performed By: #### 2 900137, 6629365, 85561402, 2775506 ####[facility] [address] [place] [address] Consent for Treatmenton 0 Consent for Treatment [id number]#[id number]:127 Normal [facility] Gastroenterology Office/Clin ic Noteon 01-10-2022 Gastroenterology Office/Clinic [...] had previous EGD with Dr. Brannon at [facility] 07/2020 that revealed normal EGD. Was previously evaluated at [facility] ER 11/12/21 for N/V/D and had [...] year. Patient had previous colonoscopy 2010 in [place] and reports was normal. Patient reports hx. [...] to evaluate for acute process. 11/12/21 at [facility]-CT abdomen/pelvis that showed fat-containing ventral hernia. Tenderness [...] at times. (more content not included)... Normal [facility] Comment on above: Result Comment: Mikael tineo [...] your local community. General instructions ? Take chwi-mbr-mrhciti and prescription medicines only as told by [...] Foundation for Functional Gastrointestinal Disorders: [email or web address] ? [employer]: [email or web address] Contact a health care provider if: ? You have a fever. ? You have redness, swelling, or pain around your rectum. ? Your pain is getting worse or you lose feeling in your rectal area. ? You have blood (more content not included)... Normal [facility] eGFRon 01-10-2022 GFR/1.73 sq M.predicted among blacks MDRD (S/P/Bld) [Vol rate/Area] 53 mL/min/1.73 m2 Low >=59 [facility] Comment on above: Order Comment: Order added by Discern Expert. Result Comment: eGFR is race adjusted. AA=. Performed By: #### 2 035673, 9845920, 14312904, 2320275 ####[facility] [address] [place] [address] GFR/1.73 sq M.predicted among non-blacks MDRD (S/P/Bld) [Vol rate/Area] 43 mL/min/1.73 m2 Low >=59 [facility] Comment on above: Order Comment: Order added by Discern Expert. Result Comment: Piggyback Clerk serene kidney disease could be indicated at eGFR's of less than 60 mL/min/1.73m2. Kidney failure is indicated at less than 15 mL/min/1.73m2. Performed By: #### 2 466880, 3074409, 22536059, 8847941 ####[facility] [address] [place] [address] Physician Referralon 022 Physician Referral [id number]#[id number]:127 Normal [facility] Urine culture routineOrdered By: Misbah Greenwood on 11-15-2021 Bacteria identified Cx Nom (U) Escherichia coli [facility] Bacteria identified Cx Nom (U) Klebsiella pneumoniae [facility] Automated erythrocytes count in urine sediment (number/area)Ordered By: Misbah Greenwood on 11-12-2021 RBC Auto (Urine sed) [#/Area] 1-2 [HPF] 0-4 [facility] Automated leukocytes count i n urine sediment (number/area)Ordered By: Misbah Greenwood on 11-12-2021 WBC Auto (Urine sed) [#/Area] 10-19 [HPF] 0-4 [facility] Automated urine hyaline cast s count (number/volume)Ordered By: Misbah Greenwood on 11-12-2021 Hyaline casts Auto (U) [#/Vol] Rare [LPF] 0-1 [facility] Basophils Auto (Bld) [#/Vol] Ordered By: Misbah Greenwood on 11-12-2021 Basophils (Bld) [#/Vol] 0.1 10*3/uL 0.0-0.2 [facility] Basophils/100 WBC Auto (Bld) Ordered By: Misbah Greenwood on 11-12-2021 Basophils/100 WBC (Bld) 0.7 % . [facility] Bilirubin Test strip Ql (U)O rdered By: Misbah Greenwood on 11-12-2021 Bilirubin Ql (U) Negative Negative [facility] Blood hemoglobin measurement (mass/volume)Ordered By: Misbah Greenwood on 11-12-2021 Hemoglobin (Bld) [Mass/Vol] 10.8 g/dL 11.8-15.4 [facility] Blood leukocytes automated c ount (number/volume)Ordered By: Misbah Greenwood on 11-12-2021 WBC (Bld) [#/Vol] 12.3 10*3/uL 4.5-11.[address] [facility] Body fluid albumin measureme nt (mass/volume)Ordered By: Misbah Greenwood on 11-12-2021 Albumin (Body fld) [Mass/Vol] 3.7 g/dL 3.2-5.5 [facility] COVID-19 SOFIAOrdered By: Kee Greenwood on 11-12-2021 SARS-CoV+SARS-CoV-2 (COVID-19) Ag IA.rapid Ql (Resp) Negative Negative [facility] Comment on above: This is a duplicate Johana SARS Antigen (DEEDEE) result to be used for statistical tracking purpose only. Casts typing in urine sedime nt by light microscopyOrdered By: Misbah Greenwood on 11-12-2021 Casts LM Nom (Urine sed) None seen [LPF] None Seen [facility] Color Auto (U)Ordered By: Kee gudelia Timo on 11-12-2021 Color (U) Yellow Yellow [facility] Creatinine and Glomerular fi ltration rate.predicted panel (S/P/Bld)Ordered By: Misbah Greenwood on 11-12-2021 Creatinine [Mass/Vol] 1.58 mg/dL 0.44-1.03 [facility] Eosinophils Auto (Bld) [#/Vo l]Ordered By: Misbah Greenwood on 11-12-2021 Eosinophils (Bld) [#/Vol] 0.2 10*3/uL 0.0-0.45 [facility] Eosinophils/100 WBC Auto (Bl d)Ordered By: Misbah Greenwood on 11-12-2021 Eosinophils/100 WBC (Bld) 1.4 % . [facility] Erythrocyte distribution wid th Auto (RBC) [Ratio]Ordered By: Misbah Greenwood on 11-12-2021 Erythrocyte distribution width (RBC) [Ratio] 13.7 % 11.9-15.3 [facility] Estimated glomerular filtrat ion rate (GFR) non- AmericanOrdered By: Misbah Greenwood on 11-12-2021 GFR/1.73 sq M.predicted among non-blacks MDRD (S/P/Bld) [Vol rate/Area] 32 mL/Min [facility] Globulin Calc (S) [Mass/Vol] Ordered By: Misbah Greenwood on 11-12-2021 Globulin (S) [Mass/Vol] 3.0 g/dL [facility] Hematocrit Auto (Bld) [Volum e fraction]Ordered By: Misbah Greenwood on 11-12-2021 Hematocrit (Bld) [Volume fraction] 32.4 % 34.0-46.4 [facility] Ketones Auto test strip (U) [Mass/Vol]Ordered By: Misbah Greenwood on 11-12-2021 Ketones (U) [Mass/Vol] Negative Negative [facility] Laboratory - Chemistry and C hemistry - challengeOrdered By: Misbah Greenwood on 11-12-2021 Lipase [Catalytic activity/Vol] 44.0 U/L 22-51 [facility] - Hematology and Cell countsOrdered By: Misbah Greenwood on 11-12-2021 Nucleated RBC/100 WBC (Bld) [Ratio] 0.0 % 0-0.5 [facility] Lymphocytes Auto (Bld) [#/Vo l]Ordered By: Misbah Greenwood on 11-12-2021 Lymphocytes (Bld) [#/Vol] 0.9 10*3/uL 1.00-4.8 [facility] Lymphocytes/100 WBC Auto (Bl d)Ordered By: Misbah Greenwood on 11-12-2021 Lymphocytes/100 WBC (Bld) 7.5 % . [facility] MCH Auto (RBC) [Entitic mass ]Ordered By: Misbah Greenwood on 11-12-2021 MCH (RBC) [Entitic mass] 29.9 pg 24.7-34.3 [facility] MCHC Auto (RBC) [Mass/Vol]Or dered By: Misbah Greenwood on 11-12-2021 MCHC (RBC) [Mass/Vol] 33.2 g/dL 32.0-35.0 [facility] MCV Auto (RBC) [Entitic vol] Ordered By: Misbah Greenwood on 11-12-2021 MCV (RBC) [Entitic vol] 90.0 fL 80-100 [facility] Monocytes Auto (Bld) [#/Vol] Ordered By: Misbah Greenwood on 11-12-2021 Monocytes (Bld) [#/Vol] 1.0 10*3/uL 0.0-0.8 [facility] Monocytes/100 WBC Auto (Bld) Ordered By: Misbah Greenwood on 11-12-2021 Monocytes/100 WBC (Bld) 8.3 % . [facility] Neutrophils Auto (Bld) [#/Vo l]Ordered By: Misbah Greenwood on 11-12-2021 Neutrophils (Bld) [#/Vol] 10.1 10*3/uL 1.8-7.7 [facility] Neutrophils/100 WBC Auto (Bl d)Ordered By: Misbah Greenwood on 11-12-2021 Neutrophils/100 WBC (Bld) 82.1 % . [facility] Nitrite Test strip Ql (U)Ord ered By: Misbah Greenwood on 11-12-2021 Nitrite Ql (U) Negative Negative [facility] No Panel InformationOrdered By: Misbah Greenwood on 11-12-2021 Estimated GFR () 38 mL/Min [facility] Comment on above: GFR estimated refere nce range: According to KDOQI guidelines, <60 ml/min/1.73m2 is sufficient to diagnose a patient with chronic kidney disease. Pharmacy Creatinine Clearance (Chem 20.67 [facility] SARS Antigen (LFIA) [facility] Platelet mean volume Auto (B ld) [Entitic vol]Ordered By: Misbah Greenwood on 11-12-2021 Platelet mean volume (Bld) [Entitic vol] 7.6 fL 6.3-10.7 [facility] Platelets Auto (Bld) [#/Vol] Ordered By: Misbah Greenwood on 11-12-2021 Platelets (Bld) [#/Vol] 379 10*3/uL 150-450 [facility] Protein Auto test strip (U) [Mass/Vol]Ordered By: Misbah Greenwood on 11-12-2021 Protein (U) [Mass/Vol] Trace mg/dL Negative [facility] Protein [Mass/volume] in Ser um or PlasmaOrdered By: Misbah Greenwood on 11-12-2021 Protein [Mass/Vol] 6.7 g/dL 6.1-7.9 [facility] RBC Auto (Bld) [#/Vol]Ordere d By: Misbah Greenwood on 11-12-2021 RBC (Bld) [#/Vol] 3.59 10*6/uL 3.60-5.[address] [facility] Serum or plasma alanine villanueva otransferase measurement without P-5'-P (enzymatic activiOrdered By: Misbah Greenwood on 11-12-2021 ALT No additional P-5'-P [Catalytic activity/Vol] 13 U/L 10-60 [facility] Serum or plasma albumin/glob ulin mass ratioOrdered By: Misbah Greenwood on 11-12-2021 Albumin/Globulin [Mass ratio] 1.2 {ratio} [facility] Serum or plasma alkaline ladarius sphatase measurement (enzymatic activity/volume)Ordered By: Misbah Greenwood on 11-12-2021 ALP [Catalytic activity/Vol] 74 U/L 32-92 [facility] Serum or plasma aspartate am inotransferase measurement (enzymatic activity/volume)Ordered By: Misbah Greenwood on 11-12-2021 AST [Catalytic activity/Vol] 17 U/L 10-42 [facility] Serum or plasma calcium dennis urement (mass/volume)Ordered By: Misbah Greenwood on 11-12-2021 Calcium [Mass/Vol] 9.5 mg/dL 8.2-10.2 [facility] Serum or plasma chloride brea surement (moles/volume)Ordered By: Misbah rGeenwood on 11-12-2021 Chloride [Moles/Vol] 103 mmol/L 95-114 [facility] Serum or plasma glucose dennsi urement (mass/volume)Ordered By: Misbah Greenwood on 11-12-2021 Glucose [Mass/Vol] 118 mg/dL 70-100 [facility] Comment on above: ADA recommended refe rence range Random Glucose Reference Range is dependent on time and content of last meal. Glucose of more than 200 mg/dL in a nonstressed, ambulatory subject supports the diagnosis of Diabetes Mellitus. Serum or plasma potassium me asurement (moles/volume)Ordered By: Misbah Greenwood on 11-12-2021 Potassium [Moles/Vol] 3.7 mmol/L 3.5-5.1 [facility] Serum or plasma sodium measu rement (moles/volume)Ordered By: Misbah Greenwood on 11-12-2021 Sodium [Moles/Vol] 135 mmol/L 136-146 [facility] Serum or plasma total biliru bin measurement (mass/volume)Ordered By: Misbah Greenwood on 11-12-2021 Bilirubin [Mass/Vol] 0.3 mg/dL 0.3-1.2 [facility] Serum or plasma total carbon dioxide measurement (moles/volume)Ordered By: Misbah Greenwood on 11-12-2021 CO2 [Moles/Vol] 19.9 mmol/L 22.0-30.0 [facility] Serum or plasma urea nitroge n measurement (mass/volume)Ordered By: Misbah Greenwood on 11-12-2021 Urea nitrogen [Mass/Vol] 21 mg/dL 9-23 [facility] Specific gravity Auto test s trip (U) [Rel density]Ordered By: Misbah Greenwood on 11-12-2021 Specific gravity (U) [Rel density] 1.012 1.001-1.03 0 [facility] Squamous epithelial cells de tection in urine sediment by light microscopyOrdered By: Misbah Greenwood on 11-12-2021 Epithelial cells.squamous LM Ql (Urine sed) 5-9 [HPF] 0-2 [facility] Urine bacteria detection by automated methodOrdered By: Misbah Greenwood on 11-12-2021 Bacteria Auto Ql (U) None seen None Seen [facility] Urine clarity by refractomet ry automatedOrdered By: Misbah Greenwood on 11-12-2021 Clarity Refractometry automated (U) Clear Clear [facility] Urine glucose measurement by automated test strip (mass/volume)Ordered By: Misbah Greenwood on 11-12-2021 Glucose Auto test strip (U) [Mass/Vol] Normal mg/dL Normal [facility] Urine hemoglobin detection b y automated test stripOrdered By: Misbah Greenwood on 11-12-2021 Hemoglobin Auto test strip Ql (U) Negative Negative [facility] Urine leukocyte esterase det ection by automated test stripOrdered By: Misbah Greenwood on 11-12-2021 Leukocyte esterase Auto test strip Ql (U) 1+ Negative [facility] Urine sediment renal epithel ial cell count by microscopy (number/high power field)Ordered By: Misbah Greenwood on 11-12-2021 Epithelial cells.renal LM.HPF (Urine sed) [#/Area] None seen [HPF] 0-1 [facility] Urobilinogen Auto test strip (U) [Mass/Vol]Ordered By: Misbah Greenwood on 11-12-2021 Urobilinogen (U) [Mass/Vol] Normal mg/dL Normal [facility] pH Auto test strip (U)Ordere d By: Misbah Greenwood on 11-12-2021 pH (U) 5.5 [pH] 5.0-9.0 [facility] SCREENING MAMMOGRAM W/DANIEL, BILATERAL*on 10-18-2021 SCREENING MAMMOGRAM [...] VERY IMPORTANT TO YOUR HEALTH. THE CURRENT [place] [employer] GUIDELINES RECOMMEND ANNUAL MAMMOGRAPHY BEGINNING AT AGE 40. THIS FACILITY UTILIZES A REMINDER SYSTEM TO ENSURE ALL PATIENTS RECEIVE A REMINDER NOTIFICATION AT THE APPROPRIATE TIME BASED ON THE RECOMMENDATIONS OF THIS EXAM. BOARD CERTIFIED RADIOLOGIST. ACCREDITED BY THE [facility] AND FDA. Report reported and signed by Claudia Hinson on 10/21/2021 1432 Normal [facility] Lead Ios Developer [facility] CARDIAC STRESS/REST INJE CTIONon 08-28-2021 [facility] CARDIAC STRESS/REST INJECTION Addendum Begins Patient Name: [...] PERFUSION STRESS TEST WITH LEXISCAN Performing facility: [facility], [address] [place] [address], [address], [place] [address] [facility] Provider: Mary Ayala MD PCP: Dr. Cruz Supervising provider: Mary Ayala MD INDICATION: CAD; SOBOE Nonischemic cardiomyopathy HISTORY: Gender: F; Age: 81 y/o ; Height: 149.8 cm; Weight: 52.7 kg. High Cholesterol; HTN; SOB; Denies smoking. COMPARISON: Previous nuclear testing completed [id number] at [facility]. ACCESSION NUMBER(S): [id number]; [id number]; [id number] ORDERING CLINICIAN: MARY AYALA TECHNIQUE: ONE DAY [...] Electronically signed by: MARK ZAMBRANO MD Normal [facility] No Panel Informationon 08-28 Normal [facility] 250 DO Work Phone: [facility] [facility] 250 DO Work Phone: Office [...] 07Jun2021 03:06PM Heart Rate60, L Brachial Artery Crfviqsy491, LUE, Sitting Wagehgxhw34, LUE, Sitting Height4 ft 11 in Ktzryg613 lb BMI Yykknjbute13.61 kg/m2 BSA Calculated1.41 Tobacco Useb) No PHQ-2 [...] Cardiovascular: carotid (more content not included)... Normal [facility] Tobacco Screening.on 022 Adult depression screening assessment No [facility] [facility] 250 DO Work Phone: Fall risk assessment a) No falls within the last year [facility] 250 DO Work Phone: Tobacco use status CPHS b) No [facility] 250 DO Work Phone: Tobacco Screening.on 021 Fall risk assessment a) No falls within the last year [facility] 250 DO Work Phone: Tobacco use status CP b) No [facility]Chris y 250 DO Work Phone: No Panel Informationon 09-24 [facility]astro[facility] rology-Westla ke [facility] 450 DO Work Phone: [email or web address] AC} [facility]-Gastroente rology-Westla ke SJ[facility] 450 DO [...] mcg) oral capsule 1 cap(s) orally Normal [facility] Coronavirus 2019 RNA by PCR, Screening Asymptomticon 09-21-2020 Coronavirus 2019 RNA by PCR, Screening Asymptomtic Not detected Normal See Below [facility] 450 [facility] Work Phone: Comment on above: [...] make patient management decisions.Fact sheet for providers: https://www.fda.gov/media/428495/downloadFact sheet for patients: https://www.fda.gov/media/075056/downloadThis test has received FDA Emergency Use Authorization (EUA) and has been verified by [facility] ([facility]). This test is only authorized for the duration of time that circumstances exist to justify the authorization of the emergency use of in vitro diagnostic tests for the detection of SARS-CoV-2 virus and/or diagnosis of COVID-19 infection under section 564(b)(1) of the Act, 21 U.S.C. 360bbb-3(b)(1), unless the authorization is terminated or revoked sooner. [facility] is certified under CLIA-88 as qualified to perform high complexity testing. Testing is performed in the [facility] laboratories located at [address] [place] [address]. ED NOTEon 04-08-2019 ED NOTE HNO ID: [id number] Author: Maria Teresa GarnicaRn) LINA Oliver Service: ? Author Type: Registered Nurse Type: ED Notes Filed: 04/08/2019 7:07 PM Note Text: Patient discharged per MD orders, RN at bedside to explain and review s/sx of worsening condition and to return to ED if worsening s/sx develop. Follow up care and questions answered with patient/family. [facility] ED NOTE HNO ID: [id number] Author: Lenore Laws) LINA Moyer Service: ? Author Type: Registered Nurse Type: ED Notes Filed: 04/08/2019 5:16 PM Note Text: Bed: ED-11H Expected date: Expected time: Means of arrival: Comments: [facility] ED NOTE HNO ID: [id number] Author: Maribell (MedicRebecca Guzman Service: ? Author Type: Monogram Machine Operator and Licensed Psychologist Director Type: ED Notes Filed: 04/08/2019 4:59 PM Note Text: Past 2 days left ear pain. Went to urgent care and her BP was high so sent here. [facility] ED PROV NOTEon 04-08-2019 ED PROV NOTE HNO ID: [id number] Author: Elenita Castillo Service: Emergency Medicine Author Type: Physician Analyst Market Intelligence Type: ED Provider Notes Filed: 04/09/2019 3:31 [...] of the extremities. History provided by: Patient historic interpreter used: No PAST MEDICAL HISTORY Diagnosis Date - Asthma - CAD (coronary artery disease) - Chronic cough due to asthma - Dyslipidemia - GERD (gastroesophageal reflux disease) - Hypertension - [place], old - MRSA infection - Myocarditis (HCC) PAST SURGICAL HISTORY Procedure Laterality Date - BACK SURGERY HX - CHOLECYSTECTOMY - COLONOSCOPY 2014 -was told she does not need anothe one-done in [place] - EGD 08/17/2018 /Jd - VALENTIN W/WO [...] or wounds Nose: Nose normal. Mouth/Throat: Lips: [place]. Mouth: Mucous membranes are moist. Pharynx: Oropharynx [...] SIGNATURE: STEVIE Solano Pa-C 04/09/19 1531 Normal [facility] Vital Signs Date Time Vital Sign Value Performing Clinician Facility 02-11-2023 09:05-0500 Body height 152.4 cm Eliecer Gray Other [facility] Other 02-11-2023 09:05-0500 Body mass index (BMI) [Ratio] 20.5 kg/m2 Eliecer Gray Other [facility] Other 02-11-2023 09:05-0500 Body temperature 97.7 [degF] Eliecer Gray Other [facility] Other 02-11-2023 09:05-0500 Body weight 47.63 kg Eliecer Gray Other [facility] Other 02-11-2023 09:05-0500 Diastolic blood pressure 93 mm[Hg] Eliecer Gray Other [facility] Other 02-11-2023 09:05-0500 Respiratory rate 18 /min Eliecer Gray Other [facility] Other 02-11-2023 09:05-0500 SaO2% (BldA) [Mass fraction] 97 % Eliecer Gray Other [facility] Other 02-11-2023 09:05-0500 Systolic blood pressure 166 mm[Hg] Eliecer Gray Other [facility] Other 02-02-2023 11:06-0400 Body height 142.2 cm Nick Wasserman MD Work Phone: [facility] 02-02-2023 11:06-0400 Body mass index (BMI) [Ratio] 24.21 kg/m2 Nick Wasserman MD Work Phone: [facility] 02-02-2023 11:06-0400 Body weight 48.99 kg Nick Wasserman MD Work Phone: [facility] 02-02-2023 11:06-0400 Diastolic blood pressure 58 mm[Hg] Nick Wasserman MD Work Phone: [facility] 02-02-2023 11:06-0400 Heart rate 60 /min Nick Wasserman MD Work Phone: [facility] 02-02-2023 11:06-0400 Systolic blood pressure 138 mm[Hg] Nick Wasserman MD Work Phone: [facility] 08-30-2022 10:55-0400 Body height 152.4 cm Luis Nolasco Other [employer] Other 08-30-2022 10:55-0400 Body mass index (BMI) [Ratio] 20.7 kg/m2 Luis Nolasco Other [facility] Other 08-30-2022 10:55-0400 Body temperature 97.8 [degF] Luis Nolasco Other [facility] Other 08-30-2022 10:55-0400 Body weight 48.08 kg Luis Nolasco Other [facility] Other 08-30-2022 10:55-0400 Diastolic blood pressure 70 mm[Hg] Luis Nolasco Other [facility] [employer] Other 08-30-2022 10:55-0400 Respiratory rate 18 /min Luis Nolasco Other [facility] Other 08-30-2022 10:55-0400 SaO2% (BldA) [Mass fraction] 97 % Luis Nolasco Other [facility] Other 08-30-2022 10:55-0400 Systolic blood pressure 123 mm[Hg] Luis Nolasco Other [facility] [employer] Other 03-06-2022 15:48-0500 Diastolic blood pressure 72 mm[Hg] Adriana Murphy Tirado-Pendleton Work Phone: [facility] [employer] 250 DO Work Phone: 03-06-2022 15:48-0500 Systolic blood pressure 136 mm[Hg] Adriana Murphy Tirado-Pendleton Work Phone: [facility] [employer] 250 DO Work Phone: 03-06-2022 15:25-0500 Body height 144.78 cm Adriana D Tirado-Pendleton Work Phone: [facility] 250 DO Work Phone: 03-06-2022 15:25-0500 Body mass index (BMI) [Ratio] 23.37 kg/m2 Adriana D Tirado-Pendleton Work Phone: [facility] [employer] 250 DO Work Phone: 03-06-2022 15:25-0500 Body surface area Derived from formula 1.38 m2 Adriana Murphy Tirado-Pendleton Work Phone: [facility] 250 DO Work Phone: 03-06-2022 15:25-0500 Body weight 48.99 kg Adriana Murphy Tirado-Pendleton Work Phone: [facility] 250 DO Work Phone: 03-06-2022 15:25-0500 Diastolic blood pressure 64 mm[Hg] Adriana Murphy Tirado-Pendleton Work Phone: [facility] 250 DO Work Phone: 03-06-2022 15:25-0500 Heart rate 66 /min Adriana Murphy Tirado-Pendleton Work Phone: [facility] 250 DO Work Phone: 03-06-2022 15:25-0500 Systolic blood pressure 154 mm[Hg] Adriana Murphy Tirado-Pendleton Work Phone: [facility] 250 DO Work Phone: 01-17-2022 10:25-0400 Diastolic blood pressure 81 mm[Hg] Govea SALAM [facility] 01-17-2022 10:25-0400 Heart rate 55 /min Govea SALAM [facility] 01-17-2022 10:25-0400 Respiratory rate 14 /min Govea SALAM [facility] 01-17-2022 10:25-0400 SaO2% (BldA) [Mass fraction] 98 % Govea SALAM [facility] 01-17-2022 10:25-0400 Systolic blood pressure 158 mm[Hg] Govea SALAM [facility] 01-17-2022 10:10-0400 Diastolic blood pressure 64 mm[Hg] Govea SALAM [facility] 01-17-2022 10:10-0400 Heart rate 56 /min Govea SALAM [facility] 01-17-2022 10:10-0400 Respiratory rate 14 /min Govea SALAM [facility] 01-17-2022 10:10-0400 SaO2% (BldA) [Mass fraction] 100 % Govea SALAM [facility] 01-17-2022 10:10-0400 Systolic blood pressure 141 mm[Hg] Govea SALAM [facility] 01-17-2022 10:05-0400 Diastolic blood pressure 60 mm[Hg] Govea SALAM [facility] 01-17-2022 10:05-0400 Heart rate 57 /min Govea SALAM [facility] 01-17-2022 10:05-0400 Respiratory rate 14 /min Govea SALAM [facility] 01-17-2022 10:05-0400 SaO2% (BldA) [Mass fraction] 98 % Govea SALAM [facility] 01-17-2022 10:05-0400 Systolic blood pressure 131 mm[Hg] Govea SALAM [facility] 01-17-2022 09:56-0400 Body temperature 96.98 [degF] Govea SALAM [facility] 01-17-2022 07:50-0400 Blood Pressure Location Govea SALAM [facility] 01-17-2022 07:50-0400 Body temperature 98.06 [degF] Govea JUNEAM [facility] 01-10-2022 10:48-0400 Diastolic blood pressure 64 mm[Hg] Shi Sundeep [facility] 01-10-2022 10:48-0400 Mean blood pressure 95 mm[Hg] Shi Sundeep [facility] 01-10-2022 10:48-0400 Systolic blood pressure 158 mm[Hg] Shi Sundeep [facility] 01-10-2022 10:44-0400 Blood Pressure Location Shi Sundeep [facility] 01-10-2022 10:44-0400 Body temperature 97.34 [degF] Shi Sundeep [facility] 01-10-2022 10:44-0400 Diastolic blood pressure 73 mm[Hg] Shi Sundeep [facility] 01-10-2022 10:44-0400 Heart rate 51 /min Shi Sundeep [facility] 01-10-2022 10:44-0400 Systolic blood pressure 167 mm[Hg] Shi Sundeep [facility] 11-13-2021 00:00-0400 Diastolic blood pressure 68 mm[Hg] DO Adriana Tirado-Pendleton Work Phone: [facility] 11-13-2021 00:00-0400 Heart rate 62 /min DO Adriana Tirado-Pendleton Work Phone: [facility] 11-13-2021 00:00-0400 Respiratory rate 18 /min DO Adriana Tirado-Pendleton Work Phone: [facility] 11-13-2021 00:00-0400 SaO2% (BldA) [Mass fraction] 100 % DO Adriana Tirado-Pendleton Work Phone: [facility] 11-13-2021 00:00-0400 Systolic blood pressure 133 mm[Hg] DO Adriana Tirado-Pendleton Work Phone: [facility] 11-12-2021 18:52-0400 Body height 144.78 cm DO Adriana Tirado-Pendleton Work Phone: [facility] 11-12-2021 18:52-0400 Body temperature 98.1 [degF] DO Adriana Tirado-Pendleton Work Phone: [facility] 11-12-2021 18:52-0400 Body weight 45.35 kg DO Adriana Tirado-Pendleton Work Phone: [facility] 08-29-2021 10:00-0400 Body height 152.4 cm [employer] Other [facility] Other 08-29-2021 10:00-0400 Body mass index (BMI) [Ratio] 20.5 kg/m2 [employer] Other [employer] Other 08-29-2021 10:00-0400 Body weight 47.63 kg [employer] Other [facility] [employer] Other 08-28-2021 00:00-0400 65 1 Adriana Murphy Tirado-Pendleton Work Phone: [facility] 250 DO Work Phone: Comment on above: [id number] 08-25-2021 12:25-0400 Body height 152.4 cm Eliecer Gray Other [facility] [employer] Other 08-25-2021 12:25-0400 Body mass index (BMI) [Ratio] 20.5 kg/m2 Eliecer Gray Other [employer] Other 08-25-2021 12:25-0400 Body temperature 97 [degF] Eliecer Gray Other [employer] Other 08-25-2021 12:25-0400 Body weight 47.63 kg Eliecer Gray Other [employer] Other 08-25-2021 12:25-0400 Diastolic blood pressure 67 mm[Hg] Eliecer Gray Other [employer] Other 08-25-2021 12:25-0400 Respiratory rate 16 /min Eliecer Gray Other [employer] Other 08-25-2021 12:25-0400 SaO2% (BldA) [Mass fraction] 96 % Eliecer Gray Other [employer] Other 08-25-2021 12:25-0400 Systolic blood pressure 141 mm[Hg] Eliecer Gray Other [employer] Other 06-07-2021 15:06-0500 Body height 149.86 cm Adriana Katherine Tirado-Pendleton Work Phone: [employer] [employer] 250 DO Work Phone: 06-07-2021 15:06-0500 Body mass index (BMI) [Ratio] 21.61 kg/m2 Adriana Katherine Tirado-Pendleton Work Phone: [employer] [employer] [employer] 250 DO Work Phone: 06-07-2021 15:06-0500 Body surface area Derived from formula 1.41 m2 Adriana Murphy Tirado-Pendleton Work Phone: [facility] 250 DO Work Phone: 06-07-2021 15:06-0500 Body weight 48.54 kg Adriana D Tirado-Pendleton Work Phone: [facility] 250 DO Work Phone: 06-07-2021 15:06-0500 Diastolic blood pressure 62 mm[Hg] Adriana Murphy Tirado-Pendleton Work Phone: [facility] 250 DO Work Phone: 06-07-2021 15:06-0500 Heart rate 60 /min Adriana Murphy Tirado-Pendleton Work Phone: [facility] 250 DO Work Phone: 06-07-2021 15:06-0500 Systolic blood pressure 125 mm[Hg] Adriana Murphy Tirado-Pendleton Work Phone: [facility] 250 DO Work Phone: 03-05-2021 10:47-0500 Body height 149.86 cm Adriana Murphy Tirado-Pendleton Work Phone: [facility] 250 DO Work Phone: 03-05-2021 10:47-0500 Body mass index (BMI) [Ratio] 22.02 kg/m2 Adriana Murphy Tirado-Pendleton Work Phone: [facility] 250 DO Work Phone: 03-05-2021 10:47-0500 Body surface area Derived from formula 1.42 m2 Adriana Katherine Tirado-Pendleton Work Phone: [facility] 250 DO Work Phone: 03-05-2021 10:47-0500 Body weight 49.44 kg Adriana Murphy Tirado-Pendleton Work Phone: [facility] 250 DO Work Phone: 03-05-2021 10:47-0500 Diastolic blood pressure 66 mm[Hg] Adriana D Tirado-Pendleton Work Phone: [facility] 250 DO Work Phone: 03-05-2021 10:47-0500 Heart rate 59 /min Adriana D Tirado-Pendleton Work Phone: [facility] 250 DO Work Phone: 03-05-2021 10:47-0500 Systolic blood pressure 127 mm[Hg] Adriana Murphy Tirado-Pendleton Work Phone: [facility] 250 DO Work Phone: Encounters Encounter Date Encounter Type Care Provider Facility Start: 03-04-2023 End: 03-04-2023 ambulatory SHREYA D DOLCE Not Available Start: 02-18-2023 End: 02-18-2023 ambulatory ADRIANA D TIRADO-EMERY Not Available Start: 02-11-2023 Office outpatient vi sit 15 minutes Eliecer Gray [facility] Start: 02-11-2023 End: 02-11-2023 ambulatory Eliecer Gray Facility:[facility] Start: 02-11-2023 End: 02-11-2023 ambulatory DO Adriana Tirado-Pendleton Work Phone: [facility] Work Phone: Start: 02-11-2023 End: 02-11-2023 Departed Referred DO Adriana Tirado-Pendleton Work Phone: [facility] 250 Start: 02-02-2023 End: 02-02-2023 ambulatory Adriana Tirado-Pendleton Facility:[facility] Start: 02-02-2023 End: 02-02-2023 ambulatory DO Adriana Tirado-Pendleton Work Phone: [facility] Work Phone: Start: 02-02-2023 End: 02-02-2023 Patient encounter procedure DO Adriana Tirado-Pendleton Work Phone: [facility] [place] Work Phone: Start: 02-02-2023 End: 02-02-2023 Office outpatient visit 25 minutes Nick Wasserman MD Work Phone: [facility] Comment on above: Coronary artery dise ase involving [place] coronary artery of [place] heart without angina pectoris (Primary Dx); Essential hypertension, benign; Mixed hyperlipidemia; Nonischemic cardiomyopathy (CMS/HCC) Start: 12-18-2022 End: 12-18-2022 ambulatory Savanna Cassidy Other [facility] Other Start: 12-18-2022 Office outpatient vi sit 15 minutes Savanna Cassidy [facility] Start: 08-30-2022 End: 08-30-2022 ambulatory Luis Nolasco Other [employer] Other Start: 08-30-2022 Office outpatient vi sit 15 minutes Luis Nolasco [facility] Start: 05-14-2022 Chart Update Adriana Changaver-Pendleton Work Phone: [facility] 250 DO Work Phone: Start: 03-06-2022 Office outpatient vi sit 15 minutes Adriana Tirado-Pendleton Work Phone: [facility] 250 DO Work Phone: Start: 03-06-2022 ambulatory Nick Wasserman II Facility: Start: 03-03-2022 End: 03-04-2022 ambulatory Jay Power Facility:[facility] Start: 02-25-2022 ambulatory Adriana Cruz Facility: Start: 02-24-2022 End: 02-25-2022 ambulatory Jay Lock Keibrahima Facility:[facility] Start: 02-19-2022 End: 02-19-2022 ambulatory Jay Almanzar. Kefaisaly Facility:[facility] Start: 02-04-2022 ambulatory Adriana Billie Tirado-Pendleton Facility: Start: 02-04-2022 End: 02-05-2022 ambulatory Jay JenelleMerrill Keibrahima Facility:[facility] Start: 02-03-2022 End: 02-04-2022 ambulatory Jay Power Facility: [place] Start: 01-17-2022 End: 01-18-2022 ambulatory Jeferson COPE Facility:[facility] Start: 01-17-2022 End: 01-17-2022 Patient encounter procedure Jeferson COPE [facility] Start: 01-13-2022 End: 01-14-2022 ambulatory Shi Urbano Facility:[facility] Start: 01-10-2022 End: 01-11-2022 ambulatory Shi Urbano Facility:[facility] Start: 01-10-2022 End: 01-11-2022 ambulatory Shi Urbano Facility:[facility] Start: 01-10-2022 Rx Renewal Adriana Cruz Work Phone: [facility] 250 DO Work Phone: Start: 01-10-2022 End: 01-10-2022 Patient encounter procedure Shi Urbano [facility] Start: 12-24-2021 ambulatory Adriana Cruz Facility: Start: 11-14-2021 ambulatory Shi Urbano Facili ty:[facility] Start: 11-12-2021 End: 11-13-2021 Emergency department patient visit DO Adriana Tirado-Iván Work Phone: [facility] Start: 08-30-2021 Chart Update Adriana D Tirado-Pendleton Work Phone: [facility] 250 DO Work Phone: Start: 08-29-2021 End: 08-29-2021 ambulatory Clement Sterling II Other [facility] [employer] Other Start: 08-29-2021 Office outpatient ne w 45 minutes Clement Julius II [facility] Start: 08-28-2021 ambulatory Adriana Billie Tirado-Pendleton Facility:[id number] Start: 08-25-2021 End: 08-25-2021 ambulatory Eliecer Gray Other [facility] Other Start: 08-25-2021 Office outpatient vi sit 15 minutes Eliecer Gray [facility] Start: 08-08-2021 Patient encounter procedure Adriana D Tirado-Pendleton Work Phone: [facility] 600 DO Work Phone: Start: 06-07-2021 Office outpatient vi sit 25 minutes Adriana D Tirado-Pendleton Work Phone: [facility] 250 DO Work Phone: Start: 06-07-2021 ambulatory Adriana Billie Tirado-Pendleton Facility: Start: 03-05-2021 Office outpatient vi sit 25 minutes Adriana D Tirado-Pendleton Work Phone: [facility] 250 DO Work Phone: Start: 09-28-2020 Chart Update Adriana D Tirado-Pendleton Work Phone: [facility] [place] 450 DO Work Phone: Start: 09-24-2020 EUSANS, Provider: Vilma Salazar, Status: Pen, Time: 9:20 AM Adriana D Tirado-Pendleton Work Phone: [facility]nr[facility]dippra-[facility] [place] 450 DO Work Phone: Start: 09-23-2020 Chart Update Adriana Tirado-Pendleton Work Phone: LA-Gggyzlorjmjgtbhj-Zc [facility] SJW 450 DO Work Phone: Procedures Date Procedure Procedure Detail Performing Clinician Start: 01-17-2022 Colonoscopy Jeferson COPE Comment on above: biopsies, diverticulosis Start: 11-12-2021 Computed tomography of abdomen and pelvis with contrast DO Adriana Tirado-Iván Work Phone: Start: 07-06-2020 Esophagogastroduodenoscopy Shi diana Comment on above: Dr Clovis Edge of knee Adriana Tirado-Pendleton Work Phone: Cholecystectomy Adriana Tirado-Pendleton Work Phone: Colonoscopy Shi Urbano Comment on above: 2010 Esophagogastroduodenoscopy M taylor COPE Comment on above: normal, gastric biopsies Hysterectomy Adriana Tirado-Pendleton Work Phone: Operation on bladder Adriana Tirado-Pendleton Work Phone: Procedure on back Adriana Tirado-Pendleton Work Phone: SARS Antigen (LFIA) DO Maximus a Tirado-Pendleton Work Phone: Total colonoscopy Adriana Tirado-Pendleton Work Phone: Urine culture DO Adriana Tirado-Pendleton Work Phone: Plan of Treatment Date Care Activity Detail Author Start: 09-15-2023 End: 09-15-2023 Patient encounter procedure 09/15/2023 9:30 AM EDT Office Visit [facility] [address] [facility] [address] [place] [address] Nick Wasserman MD [address] [facility], [address] [place] [address] [facility] Start: 02-11-2023 Bacteria identified in Urine by Culture [facility] Start: 02-02-2023 End: 02-03-2024 Basic metabolic 2000 panel - Serum or Plasma Basic Metabolic Panel Lab Routine Nonischemic cardiomyopathy (CMS/HCC) Expected: 02/02/2023 (Approximate), Expires: 02/03/2024 [facility] Service Area Work Phone: Comment on above: Expected: 02/02/2023 (Approximate), Expires: 02/03/2024 Start: 02-02-2023 End: 02-03-2024 CBC panel - Blood by Automated count CBC Lab Routine Nonischemic cardiomyopathy (CMS/HCC) Expected: 02/02/2023 (Approximate), Expires: 02/03/2024 [facility] Work Phone: Comment on above: Expected: 02/02/2023 (Approximate), Expires: 02/03/2024 Start: 02-02-2023 End: 02-03-2024 Lipid 1996 panel - Serum or Plasma Lipid Panel Lab Routine Mixed hyperlipidemia Expected: 02/02/2023 (Approximate), Expires: 02/03/2024 [facility] Work Phone: Comment on above: Expected: 02/02/2023 (Approximate), Expires: 02/03/2024 Start: 10-28-2022 FUV, Provider: Nick Wasserman, Status: Pen, Time: 9:40 AM FUV, Provider: Nick Wasserman, Status: Pen, Time: 9:40 AM [facility] 250 DO Work Phone: Start: 03-06-2022 FUV, Provider: Nick Wasserman, Status: Pen, Time: 3:10 PM FUV, Provider: Nick Wasserman, Status: Pen, Time: 3:10 PM [facility] 250 DO Work Phone: Start: 02-25-2022 COVID-19 Vaccine (4 - Moderna series) COVID-19 Vaccine (4 - Moderna series) [facility] Start: 12-24-2021 FUV, Provider: Nick Wasserman, Status: Pen, Time: 11:20 AM FUV, Provider: Nick Wasserman, Status: Pen, Time: 11:20 AM -[facility] 250 DO Work Phone: Start: 08-28-2021 STRESS NUC, Provider : MARI HHVI NUCLEAR 01,[id number], Status: Pen, Time: 12:00 PM STRESS NUC, Provider: MARI HHVI NUCLEAR 01,[id number], Status: Pen, Time: 12:00 PM -[facility] 600 DO Work Phone: Start: 06-07-2021 FUV, Provider: Nick Wasserman, Status: Pen, Time: 3:10 PM FUV, Provider: Nick Wasserman, Status: Pen, Time: 3:10 PM -[facility] 250 DO Work Phone: Start: 11-23-2020 VIRNPVFELICIANOE, Provider : Estefanía Iyer, Status: Pen, Time: 9:30 AM VIRNPVFELICIANOE, Provider: Estefanaí Iyer, Status: Pen, Time: 9:30 AM [facility] 450 DO Work Phone: Start: 1964 DTaP/Tdap/Td Vaccine s (1 - Tdap) DTaP/Tdap/Td Vaccines (1 - Tdap) [facility] Start: 1942 Lipid panel Lipid Panel [facility] Start: 1940 Medicare Annual Wellness Visit Medicare Annual Wellness Visit (AWV) [facility] Start: 1940 Screening for osteoporosis Bone Density Scan [facility] Patient Education Dehydration, Adult (DC) [facility] Work Phone: Patient referral [facility] Work Phone: Immunizations Immunization Date Immunization Notes Care Provider Fa ciliharry 01-16-2023 Influenza, Seasonal, Quadrivalent, Adjuvanted Nick Wasserman MD Work Phone: [facility] 01-11-2022 Fluzone High-Dose Quadrivalent 0.7 ML Intramuscular Suspension Prefilled Syringe Adriana Katherine Candida-Iván Work Phone: [facility] 250 DO Work Phone: 12-31-2021 Pfizer COVID-19 Vac Bivalent 30 MCG/0.3ML Intramuscular Suspension Adriana Katherine Tirado-Pendleton [facility] DO Work Phone: 10-18-2021 Prevnar 20 0.5 ML Intramuscular Suspension Prefilled Syringe Adriana Katherine Luis A Work Phone: [facility] DO Work Phone: 04-03-2021 Moderna COVID-19 Vaccine 100 MCG/0.5ML Intramuscular Suspension Adriana Murphy TiradoWine in BlackPendleton Work Phone: [facility] DO Work Phone: 02-26-2021 influenza, high dose seasonal, preservative-free Adriana Cruz Work Phone: [facility] DO Work Phone: 05-30-2020 Moderna COVID-19 Vaccine 100 MCG/0.5ML Intramuscular Suspension Adriana Katherine Tirado-Pendleton Work Phone: [facility] Comment on above: Reason for Medicatio n: Other (see comment) 05-07-2020 Moderna SARS-CoV-2 Vaccination Nick Wasserman MD Work Phone: [facility] Work Phone: 05-02-2020 Moderna COVID-19 Vaccine 100 MCG/0.5ML Intramuscular Suspension Adriana Katherine Tirado-Pendleton Work Phone: [facility] Comment on above: Reason for Medicatio n: Other (see comment) 04-02-2020 zoster vaccine recombinant Adriana Cruz Work Phone: [facility] 250 DO Work Phone: 02-01-2020 zoster vaccine recombinant Adriana Cruz Work Phone: [facility] 12-30-2019 Fluzone High-Dose Quadrivalent 0.7 ML Intramuscular Suspension Prefilled Syringe Adriana Cruz Work Phone: [facility] 01-04-2019 influenza, high dose seasonal, preservative-free Adriana Katherine Tirado-Iván Work Phone: [facility] 12-18-2017 influenza, high dose seasonal, preservative-free Adriana Katherine Cruz Work Phone: [facility] NEGATED: Highlighted row has not occurred!01-10-2022 influenza virus vaccine, unspecified formulation Shi Urbano [facility] Payers Date Payer Category Payer Self-pay [id number] 2022 Medicare HUMANA MEDICARE HUMANA GOLD CHOICE [id number] 2022-Present [address] [address] [place] [address] [id number] 2020 Private Health Insurance [id number] 2.16.840.1.743788.19 2019 Unknown 2019 Unknown [id number] 2.16.840.1.873574.19 1942 Unknown [id number] 2.16.840.1.228169.3.579.2 .727 1942 Unknown [id number] 2.16.840.1.804882.3.579.2 .727 1942 Unknown [id number] 2.16.840.1.181879.3.579.2 .727 1942 Unknown [id number] 2.16.840.1.886994.3.579.2 .727 1942 Unknown [id number] 2.16.840.1.476026.3.579.2 .727 1942 Unknown [id number] 2.16.840.1.233985.3.579.2 .727 1942 Unknown [id number] 2.16.840.1.016232.3.579.2 .72 1942 Unknown [id number] 2.16.840.1.460371.3.579.2 .72 1942 Unknown [id number] 2.16.840.1.277818.3.579.2 .72 1942 Unknown [id number] 2.16.840.1.355275.3.579.2 .72 1942 Unknown [id number] 2.16.840.1.525002.3.579.2 .356 1942 Unknown [id number] 2.16.840.1.670416.3.579.2 .356 1942 Unknown [id number] 2.16.840.1.130368.3.579.2 .356 1942 Unknown [id number] 2.16.840.1.314966.3.579.2 .356 1942 Unknown [id number] 2.16.840.1.772889.3.579.2 .356 1942 Unknown [id number] 2.16.840.1.257138.3.579.2 .356 1942 Unknown [id number] 2.16.840.1.496566.3.579.2 .1244 1942 Unknown [id number] 2.16.840.1.199690.3.579.2 .1259 1942 Unknown [id number] 2.16.840.1.546046.3.579.2 .1259 Medicare [id number] Medicare Medicare [id number] Unknown [id number] 2.16.840.1.589555.3.579.2 .531 Unknown [id number] 2.16.840.1.313381.3.579.2 .531 Social History Date Type Detail Facility Start: 02-02-2023 Daily caffeine consumption Daily caffeine consumption -[facility] 250 DO Work Phone: Comment on above: tea and a dr. dunbar ; Start: 02-02-2023 Sex Assigned At N [facility] [employer] Other Start: 11-12-2021 End: 11-12-2021 Tobacco smoking status NHIS Never smoked tobacco (finding) [facility] Start: 1940 Sex Assigned At Female F [facility] Tobacco smoking status Never [facility] Start: 02-02-2023 Tobacco use and exposure Smokeless tobacco non-user [facility] Work Phone: Start: 02-02-2023 Alcohol intake Lifetime non-d arcelia (finding) [facility] Work Phone: Start: 1940 Sex Assigned At Not on file [facility] Work Phone: Start: 01-23-2023 End: 02-02-2023 Exposure to SARS-CoV-2 (event) Not sure [facility] Functional Status Date Assessment Result Facility 01-17-2022 Functional Status N/A [facility] 01-10-2022 Functional Status N/A [facility] Clinical Notes 08-25-2021 to 02-11-2023 [...] She understands and agrees with the plan. [employer] Other 10-30-2023 History of Present illness Narrative* [...] Rfl: Assessment/Plan 1. 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 2. Essential hypertension, benign Well-controlled on current therapy 3. Mixed hyperlipidemia Well-controlled on current therapy 4. Nonischemic cardiomyopathy (CMS/HCC) No manifestations of heart failure detectable today. [facility] Work Phone: [phone] 260-718910-30-2023 Instructions* Patient Instructions* Dante Jacob MA - [...] time of your visit. [facility] Work Phone: [phone] 324-240909-14-2023 Evaluation note* Encounter Date Diagnosis Assessment Notes Treatment Notes Treatment Clinical Notes Dec, Arthritis of left knee (ICD-10 - M17.12) Patient was prepped and coritone was injected into the left knee under sterile conditions. Patient tolerated well with no adverse reactions. Activity as tolerate. [employer] Other 05-27-2023 Evaluation note* Encounter Date Diagnosis [...] Pt understood and agreed to treatment plan. [employer] Other 12-06-2022 NoteAdmission and Discharge Information Admitting [...] levels flattened. Cardiology consultation was placed at [facility] cardiology group Dr. Wasserman who patient [...] 73.9 % Lymph Auto - 12.3 % Eddy Auto - 7.4 % Eos Auto - 3.6 % Basophil Auto - 2.8 % Neutro Absolute - 6.2 E9/L Lymph Absolute - 1.0 E9/L Eddy Absolute - 0.6 E9/L Eos Absolute - [...] Est - 1+ U (more content not included)...[facility] HealthcareComment on above: Result Comment: Electronically Signed By: Yolanda SALAS\.br\Date and Time Signed: 03/10/22 20:44 EST\.br\Electronically Co-Signed By: Pantera QUICK MD\.br\Date and Time Co-Signed: 03/11/2210:53 [id number] NoteMicrobiology PROCEDURE: Blood Culture Charcoal [R1] SOURCE: Blood BODY SITE: Arm R COLLECTED DATE/TIME: 02/24/2022 13:54 EST RECEIVED DATE/TIME: 02/24/2022 14:07 EST START DATE/TIME: 02/24/2022 14:07 EST FREE TEXT SOURCE: Jay Emery DO, DO, John FINAL REPORTS Final Report [] Verified Date/Time: 03/03/2022 18:00 EST No growth at 7 days. Performing Locations R1: This [facility] performed at: [facility], [address] [place] [address], [id number] [place] [address], [address] [place], [place] [address]Comment on above:Performed By: #### [id number] #### [address] [id number] NoteMicrobiology PROCEDURE: Blood Culture Charcoal [R1] SOURCE: Blood BODY SITE: Arm L COLLECTED DATE/TIME: 02/24/2022 13:44 EST RECEIVED DATE/TIME: 02/24/2022 14:08 EST START DATE/TIME: 02/24/2022 14:08 EST FREE TEXT SOURCE: IV Jay Jarrett DO, DO, John FINAL REPORTS Final Report [] Verified Date/Time: 03/03/2022 18:00 EST No growth at 7 days. Performing Locations R1: This test [facility] performed at: [facility], [address] [place] [id number] [place] [address], [address] [place], [place] [address]Comment on above:Performed By: #### [id number] ####[facility] [address] [place] [address] [id number] NoteHOSPITAL REGULATIONS: All Positive and Important Negative Findings Shall Be Recorded Date of Consultation: 02/25/2022 Attending Physician: J Carlos Ken M.D. Consulting Physician: Jaime Wassemran M.D. This consultation reflects the evaluation, management [...] a surgery isunclear to me. ALLERGIES:Percocet, Darvocet, Bronx, Oxycodone. PSYCHOSOCIAL HISTORY:Nonsmoker, nondrinker. FAMILY HISTORY:Diabetes, heart disease, lung cancer. REVIEW OF SYSTEMS:Otherwise negative, normal and noncontributory. PHYSICAL EXAMINATION: Vital signs: An ill appearing female. She is uncomfortable and moves slowly. Her blood pressure zcb081/66, pulse 64, respirations 16, temperature 36.8, weight [...] patient's acute hospitalization. Nahed Padilla Dictated: 02/26/2022 [id number] Transcribed: 02/26/2022 cc:Adriana Cruz D.O.[facility]red HealthcareComment on above: Result Comment: Electronically Signed By: Lisy ERIC, Nick Fernandez\Date and Time Signed: 02/27/22 14:23 [id number] NotePT Evaluation done this date. Pt. with on AM-PAC this date. She is safe and independent with all functional activities with no further PT needs.[facility]11-22-2022 Note Chief Complaint Had hernia repair done [...] Lymph Auto: 12.3 % Low (02/24/22 13:54:00) Eddy Auto: 7.4 % (02/24/22 13:54:00) Eos Auto: 3.6 % (02/24/22 13:54:00) Basophil Auto: 2.8 % High (02/24/22 13:54:00) Neutro Absolute: 6.2 E9/L (02/24/22 13:54:00) Lymph Absolute: 1 E9/L (02/24/22 13:54:00) Eddy Absolute: 0.6 E9/L (02/24/22 13:54:00) Eos Absolute: [...] (02/24/22 14:55:00) UA C (more content not included)...[facility]red HealthcareComment on above: Result Comment: Electronically Signed By: Yolanda SALAS\.br\Date and Time Signed: 02/24/22 21:25 EST\.br\Electronically Co-Signed By: Yolanda SALAS\.br\Date and Time Co-Signed: 02/24/22 21:27 EST\.br\Electronically Co-Signed By: J Carlos KEN MD\.br\Date and Time Co-Signed: 02/25/22 07:18 [id number] Notegeneral surgery interval progress note: S.81 y/o [...] the patient and her daughter, including recoveryand [facility] Comment on above:Result Comment: Electronically Signed By: Jannet ERIC, Jay Downing\Date and Time Signed: 02/24/22 14:56 [id number] NoteHistory and Physical Update H&P Reviewed. Patient [...] mg= 1 mL, IV Push, q5min, PRN Bronx 325 mg-5 mg oral tablet, 1 tab(s), [...] disease: Father. Primary malignant neoplasm of lung: Sister.[facility]11-02-2022 [id number]:127[facility]10-17-2022 [id number]:127[facility]10-14-2022 Evaluation + Plan noteExtracted from: Title:FRANCISCA POSTOP Author:Eliecer Pennington DO Date: 01/17/22 Plan Transfer/ Discharge: Patient can be discharged from PACU when criteria met. Condition good. Extracted from: Title:FRANCISCA PREOP ENDO NOTE Author:Waylon Pennington DO Date:01/17/22 Plan [place] [employer]esthesiologists (ASA) physical status classification: [...] Date:02/03/2022 10:20:00 AM Scheduled Provider:Jay Power MD Location:[facility] Appointment Type:[address]10-14-2022 Hospital Discharge instructions Patient Education 01/17/2022 [...] what activities are safe for you. Take ygtm-ose-hnrgmih and prescription medicines only as told by [...] 09/21/2012 Document Revised: 09/14/2018 Document Reviewed: 08/23/2018 Naked Patient Education 2020 [email or web address]. 01/17/2022 10:08:02 Colonoscopy, Care After Surgery Salam (CUSTOM) Colonoscopy Care After Surgery Please read the instructions outlined below and refer to this sheet in the next few weeks. These discharge instructions provide you with general information on caring [facility] Your doctor may also give you [...] unsweetened, w/added ascorbic acid 1 cup 0.5 Webb 1 cup 0.7 Vegetables Cooked Green beans 1 cup 4.0 Carrots 1/2 cup sliced 2.3 Peas 1 cup 8.8 Potato (baked, with skin) 1 medium potato 3.8 Raw Irvine (with peel) 1 cucumber 1.5 Lettuce 1 [...] 8.7 Peanuts 1/2 cup 7.9 [facility] from [facility] 2013. SEEK IMMEDIATE MEDICAL CARE IF: You [...] Information adapted from: ExitCare Patient Information 2009 [employer]. Associated Material Processing 2013 [email or web address] Follow Up Care 01/10/2022 12:34:05 With:Jeferson COPE Address: [address] [place] [address] Business (1) When: Unknown Comments:office will call for follow up [facility]10-07-2022 Hospital Discharge instructions Patient Education [...] or in yourcal community. General instructions Take vtng-rbf-qncwenr and prescription medicines only as told by [...] International Foundation for Functional Gastrointestinal Disorders: iffgd.org [place] [employer]: [email or web address] Contact a health [...] restrictions, lifestyle changes, and skin care. Take lnui-syh-rbwdepk and prescription medicines only as told by [...] 03/04/2005 Document Revised: 08/05/2018 Document Reviewed: 08/05/2018 Naked Patient Education 2020 [employer] 01/10/2022 10:49:37 Colonoscopy, Adult Colonoscopy, Adult [...] including vitamins, herbs, eye drops, creams, and cktu-tfw-tlvuxwj medicines. Any problems you or family members [...] 03/20/2001 Document Revised: 01/13/2018 Document Reviewed: 06/03/2016 Naked Patient Education 2020 [email or web address]. Follow Up Care 11/13/2021 10:56:24 With:Shi Urbano CNP Address: When:1 to 2 weeks [facility] 05-26-2022 Evaluation note* Encounter Date [...] consider an injection in the left knee. [employer] Other 05-22-2022 Evaluation note* Encounter Date Diagnosis [...] Pt understands and agrees with the plan. 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- Primary Essential hypertension, benign Mixed hyperlipidemia Nonischemic cardiomyopathy (CMS/HCC) Other primary cardiomyopathies documented in this encounter [facility] Work Phone: History general Narrative - Reported* Type Description Date Medical History high cholesterol Medical History high blood pressure Medical History [place] Medical History asthma Surgical History right knee repacement Surgical History gall bladder Surgical History hysterectomy Surgical History carpal tunnel release Hospitalization History [facility] Other History of Present illness Narrative* Patient [...] other recommendation for changes in medical therapy. -[facility] 250 DO Work Phone: History of [...] which appears to be adequate and appropriate. [facility] Work Phone: History of Present [...] which appears to be adequate and appropriate. [facility] Work Phone: History of Present [...] no change and she will follow-up next yearWhe[facility] Center[facility] Delaney DO Work Phone: Hospital course Narrative No data available for this section [facility] Hospital Discharge instructions Additional Instructions Increase your intake of fluids. Take Zofran as prescribed for nausea. Follow-up with your primary care physician for reevaluation in 3 to 5 days.[facility] Work Phone: Progress note No data available for this section [facility] Reason for referral (narrative)* Consultation (Routine) - Authorized Specialty Diagnoses / Procedures Referred By Contac t Referred To Contact Cardiology Diagnoses Essential hypertension, benign Procedures Follow Up In Cardiology Nick Wasserman MD [address] [place] [address] 2, [address] [address] Nick Wasserman MD [facility] 2, [address] [address] Referral ID Status Reason Start Date Expiration Date V isits Requested Visits Authorized [id number] Authorized 02/02/2023 02/02/2024 1 1 [facility] Work Phone: Summary Purpose Family History No [...] being seen for a 6 month follow-up of.ADNIA PERRY is being seen for a 3 [...] section and content) DATE CREATED AUTHOR 04/09/2019 [facility] DATE CREATED AUTHOR AUTHOR'S ORGANIZ ATION 11/20/2020 [facility] DATE CREATED AUTHOR AUTHOR'S ORGANIZ ATION 09/01/2021 [facility] DATE CREATED AUTHOR AUTHOR'S ORGANIZ ATION 10/25/[address] [facility] dical Specialist DATE CREATED AUTHOR AUTHOR'S ORGANIZ ATION 03/07/2022 [employer] DATE CREATED AUTHOR AUTHOR'S ORGANIZ ATION 03/11/2022 [facility] DATE CREATED AUTHOR AUTHOR'S ORGANIZ ATION 04/01/2022 [facility] DATE CREATED AUTHOR AUTHOR'S ORGANIZ ATION 02/03/2023 [facility] DATE CREATED AUTHOR AUTHOR'S ORGANIZ ATION 02/20/2023 [facility] DATE CREATED AUTHOR AUTHOR'S ORGANIZ ATION 03/06/[address] [facility] dical Specialists EPIC DATE CREATED AUTHOR AUTHOR'S ORGANIZ ATION 03/21/2023 [facility] REASON FOR VISIT (unrecogniz ed section and [...] Active Misbah Greenwood DO Emergency Provider Active Manager Games Relationship Specialty Start Date End Date Adriana Cruz DO [address] [facility], [address] [address] PCP - General 09/17/20 Team Status: Inactive [...] BE BASED ON THE PRIMARY CLINICAL RECORDS. [facility]. provides no warranty or guarantee of the accuracy or completeness of information in this document.
== END 2023-04-10 13:23 | disposition home or self-care (01) ==
LOC: VC 13:22
PROVIDERS: PCP Radiology Diagnostic Radiology; Visit Provider Radiology Diagnostic Radiology
DX: I80.02 Phlebitis and thrombophlebitis of superficial vessels of left lower extremity (principal)
CPT/HCPCS: 93971; G0463

== ENCOUNTER 2023-04-14 10:18 | Outpatient (OUT) | payer MEDICARE, OTHER, SELFPAY ==
--- NOTE | 2023-04-14 10:19 | VEIN_ITS ---
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 TECHNIQUE: The risks and benefits of the procedure had been previously discussed, and were rediscussed at length. Informed written consent was obtained. Tomasa Jessica and Denise Lerma assisted. Time out procedure was performed. The right lower extremity was prepared and draped in the usual sterile fashion to allow knee flexion in the sterile field. Duplex ultrasound probe was draped in a sterile cover, sterile transmission gel was used. Venous mapping was performed with the areas of dilation and large tributaries marked. The total length was 32 cm from the entry below the knee to 3 cm below the saphenofemoral junction. The diameter of the greater saphenous vein ranged from 4-6 mm. A 30 gauge needle and 1% buffered lidocaine was used to anesthetize the entry site. A 4 mm incision was made with a scalpel and the saphenous vein was entered percutaneously under direct ultrasound guidance with a micropuncture set, a single stick was successful in gaining access. A micro-guide wire was inserted and the needle removed. A micro-set including a dilator was inserted over the microwire and the needle and dilator were removed. A 0.018 guide wire was inserted through the micro-set and threaded through the saphenous vein to the saphenofemoral junction. The dilator was removed and an introducer sheath was inserted over the wire until the end of the sheath entered the saphenofemoral junction. The dilator and wire were removed and the 600 micron fiber was introduced and placed and positioned so that it extended beyond the sheath and was 3 cm peripheral to the saphenofemoral femoral junction. Final position of the fiber was determined by ultrasound guidance and duplex imaging. Tumescent anesthetic was delivered by ultrasound guidance. 100 cc of fluid was delivered along the entire course of the saphenous vein. The solution consisted of 1000 cc of normal saline with 40 mL of 1% lidocaine and 20 mL of sodium bicarbonate. A final positioning check was made. The energy source was turned on by means of the foot pedal and the fiber and sheath were withdrawn. The total number of Joules delivered was 1478. The laser was active for 185 seconds under continuous pulse, average laser use of 8 J. Laser start time 11:21 AM 04/14/2023 . Laser stop time 11:25 AM 04/14/2023 . A duplex ultrasound revealed compressibility and flow at the saphenofemoral junction immediately after the procedure. Hemostasis at the access site was achieved. The skin incision of the saphenous vein was closed with a 4 x 4. A compression stocking was applied. Postop instructions were given. A follow up appointment was recommended and scheduled. The patient tolerated the procedure well and was discharged in good condition . VEIN/VC Endovenous Ablation 1VeinRT IMPRESSION: Technically successful endovenous laser ablation right great saphenous vein Electronically authenticated by: SHAMIKA FLORES Date: 04/14/2023 11:58
--- OUTSIDE RECORDS SUMMARY | 2023-04-14 10:32 | XMS_ITS | CCD ---
Author Name Unknown Address [address] [place] [address] Organization [facility] Care Team Providers Care Aws Solution Architect Name Role Phone Adriana Cruz Unavailable [phone] Unavailable Unavailable Clement Madrid II Unavailable Eliecer Gray Unavailable DO Adriana Cruz Primary Care Provider [phone] DO Misbah [place] Emergency Provider [facility] Primary Care Physician [phone] Shi Urbano Attending Unavailable Shi Urbano Admitting Unavailable Shi Urbano Attending Unavailable Shi Urbano Admitting Unavailable Jay Power Consulting Unavailable J Carlos KEN Attending Unavailable J Carlos KEN Admitting Unavailable Jay Power Consulting Unavailable Jay Power Consulting Unavailable Jay Power Consulting Unavailable MD Mary Ayala Consulting Unavailab Mary Cardona Consulting Unavailable Mary Ayala Consulting Unavailable Mary Ayala Consulting Unavailable Trabgautam Moaguilar Consulting Unavailable Trabgautam Moaguilar Consulting Unavailable Mitchel Moaguilar Consulting Unavailable Mary Ayala Consulting Unavailable Mary Ayala Consulting Unavailable Jay Power Admitting Unavailable Jay Power Referring Unavailable Jay Power Attending Unavailable Jay Power Admitting Unavailable Jay Power Referring Unavailable Jay Power Attending Unavailable Shi Urbano Attending Unavailable Shi Urbano Attending Unavailable Jay Power Attending Unavailable Jay Power Attending Unavailable Shi Urbano Referring Unavailable SALAM, Jeferson Referring Unavailable SALAM, Jeferson Attending Unavailable SALAM, Jeferson Admitting Unavailable Tirado-Boncarbo, Adriana Billie Primary Care Unava ilable Tirado-Boncarbo, Adriana Billie Primary Care Unava ilable McGuinn II, Nick Garduno Attending Unav ailable McGuinn II, Nick Garduno Attending Unav ailable Tirado-Boncarbo, Adriana Billei Primary Care Unava ilable McGuinn II, Nick Garduno Referring Unav ailable Tirado-Boncarbo, Adriana Billie Primary Care Unava ilable McGuinn II, Nick Garduno Referring Unav ailable McGuinn II, Nick Garduno Attending Unav ailable Tirado-Boncarbo, Adriana Billie Primary Care Unava ilable Tirado-Boncarbo, Adriana Billie Primary Care Unava ilable McGuinn II, Nick Garduno Attending Unav ailable Luis Nolasco Unavailable Savanna Cassidy Unavailable Tirado-Boncarbo DO, Adriana Billie Primary Care Provi octavio Tirado-Boncarbo, DO Adriana Primary Care Provider MD Nick Wasserman Attending Provider NICK WASSERMAN Attending Unavailable TIRADO-EMERY, ADRIANA BILLIE Primary Care Unava ilable Tirado-Boncarbo, DO Adriana Primary Care Provider [phone] MD Nick Wasserman Attending Provider LIT Gray Attending Provider Tirado-Boncarbo, Adriana Primary Care Unavailable Nick Wasserman Admitting Unavail able Nick Wasserman Attending Unavail able Eliecer Gray Attending Unavaila ble Tirado-Boncarbo, Adriana Primary Care Unavailable Eliecer Gray Admitting Unavaila ble TIRADO-EMERADRIANA Jimenez Attending Unavailab le TIRADO-EMERY, ADRIANA D Referring Unavailab ADRIANA Berry Referring Unavailab IRMA Chinchilla Attending Unavailable SHREYA MILLS Attending Unavailable Allergies Allergy Classification Reported Allergen(s) Allergy Type Date of Onset Reaction(s) Facility (4 sources) HYDROcodone; Translations: [hydrocodone] Drug Allergy 2 [facility] (5 sources) oxyCODONE; Translations: [oxyCODONE] Drug Allergy 2 [facility] (2 sources) Acetaminophen / oxyCODONE; Translations: [acetaminophen-ox ycodone] Drug Allergy Nausea (finding) [facility] Comment on above: All pain meds EXCEPT Morphine. Patient is able to take Morphone. (1 source) Acetaminophen / HYDROcodone; Translations: [[place]] Drug Allergy [facility] (1 source) Acetaminophen / oxyCODONE; Translations: [Percocet] Drug Allergy [facility] (1 source) Darvocet-N 100; Translations: [Darvocet-N 100] Propensity to adverse reactions (disorder) [facility] Medications Current Medications Medication Drug [...] Promethazine-Codeine Active 5 ML PO Q4H 120 March 28, 2021 12:00am diclofenac sodium 0.01 [...] Ondansetron Hcl Active 4 MG PO Q8H 12 November 11, 2021 11:00pm Start: 06-25-2020 take 4 [...] A ctive take 1 tablet by roberth once daily Sertraline HCl - 25 MG [...] 1 EA, Refill(s) 0, Prior to colonoscopy., [employer] [facility], 150, cm, 01/10/22 10:48:00 EDT, Height/Length [...] [Coronary atherosclerosis of unspecified type of vessel, igiugig or graft] Onset: 3 02-02-2023 Chronic Deficiency [...] sources) Diarrhea; Translations: [Diarrhea, unspecified] Onset: 2 12-23-2021 Episodic Other gastrointestinal disorders (3 sources) Incontinence [...] Test Name Value Interpretation Reference Range [facility] -- ADINA PERRY ([id number]) 1940 F Date Time Provider Department 02/20/23 NO ONE (HISTORICAL) REFPHY During your visit today, we recorded the following information about you: Alanis Castillo 02/20/2023 6:39 AM Addendum Patient: Adina Perry Date of : 1940 Patient phone number: [phone] Referring Provider for the encounter: Irma Angel APRN Requesting Provider: Vascular Surgery Reason for requesting visit (RFV/signs and symptoms/diagnosis): 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 Person calling: caregiver: Alanis Return call to: self Medical Records/Insurance Card scanned into [employer]: Yes Comments: This was Routed Incorrectly Allergies As of Date: 02/20/2023 Noted Allergy Reaction OXYBUTYNIN 10/13/2018 14 - Other: See Comments Comments: Severe dry mouth Date Reviewed: 02/21/2020 Reviewed by: Telma Reddy (Me) - Fully Assessed Reason for Visit: External [...] (HCC); reportedly v*12/15/2018 Encounter Status:Closed by ALANIS CASTILLO on 02/20/23 Normal [facility] Urinalysis - DIPSTICKon 11-0 Appearance (U) cloudy [employer] Other Bilirubin Ql (U) Negative [employer] Other Color (U) yellow [employer] Other Glucose Ql (U) Negative [employer] Other Hemoglobin Ql (U) small [employer] Other Ketones Ql (U) Negative [employer] Other Leukocyte esterase Test strip Ql (U) large [employer] Other Nitrite Ql (U) Positive [employer] Other pH (U) 5.0 [pH] [employer] Other Protein Ql (U) trace [employer] Other Specific gravity (U) [Rel density] 1.025 [employer] Other Urobilinogen (U) [Mass/Vol] 0.2 mg/dL [employer] Other Urinalysis - DIPSTICK Nor [employer] Other Urine Cultureon 02-11-2023 Bacteria identified Cx Nom (U) ORGANISM: Escherichia coli (O:ESCCOL) Alpine Count >100,000 Aerobic DYLAN Charge (NMIC56) SUSCEPTIBILITY [...] RESISTANT TO ALL B-LACTAM DRUGS. PERFORMED BY: [place] [address] PATHOLOGIST SENSOR SPECIALIST RENAN CAIN M.D. [facility] Comment on above: Performed By: #### C UU #### [address] Basic Metabolic Panelon 10-3 -2022 Anion gap [Moles/Vol] 11.0 mmol/L Normal 6.0-15.0 [facility] Comment on above: Performed By: #### L IPID, BMP, CBC #### [facility] [address] [place] [address] [place] Calcium [Mass/Vol] 10.1 mg/dL Normal 8.6-10.3 [facility] Comment on above: Performed By: #### L IPID, BMP, CBC #### [place] [address] [place] Chloride [Moles/Vol] 107 mmol/L Normal 98-107 [facility] Comment on above: Performed By: #### L IPID, BMP, CBC #### [facility] [address] [place] [address] [place] CO2 [Moles/Vol] 26.4 mmol/L Normal 21.0-31.0 [facility] Comment on above: Performed By: #### L IPID, BMP, CBC #### [facility] [address] [place] [address] [place] Creatinine [Mass/Vol] 1.34 mg/dL High 0.60-1.20 [facility] Comment on above: Performed By: #### L IPID, BMP, CBC #### [facility] [address] [place] [address] [place] GFR/1.73 sq M.predicted MDRD (S/P/Bld) [Vol rate/Area] 40.085 mL/min/{1.73_m2} Normal [facility] Comment on above: Performed By: #### L IPID, BMP, CBC #### [facility] [address] [place] [address] [place] Glucose [Mass/Vol] 91 mg/dL Normal 70-100 [facility] Comment on above: Result Comment: [facility] Glucose Reference Range is dependent on time and content of last meal. Glucose of more than 200 mg/dL in a nonstressed, ambulatory subject supports the diagnosis of Diabetes Mellitus. ADA recommended reference range Performed By: #### L IPID BMP, CBC #### [facility] [address] Potassium [Moles/Vol] 4.4 mmol/L Normal 3.5-5.1 [facility] Comment on above: Performed By: #### L IPID, BMP, CBC #### [facility] [address] [place] [address] [place] Sodium [Moles/Vol] 140 mmol/L Normal 136-145 [facility] Comment on above: Performed By: #### L IPID BMP, CBC #### [facility] [address] [place] [address] [place] Urea nitrogen [Mass/Vol] 23 mg/dL Normal 7-25 [facility] Comment on above: Performed By: #### L IPID, BMP, CBC #### [facility] [address] [place] [address] [place] Basophils Auto (Bld) [#/Vol] Ordered By: Nick Wasserman on 02-02-2023 Basophils (Bld) [#/Vol] 0.0 10*3/uL 0.0-0.2 [facility] Basophils/100 WBC Auto (Bld) Ordered By: Nick Wasserman on 02-02-2023 Basophils/100 WBC (Bld) 0.4 % . [facility] Calcium [Mass/volume] in Ser um or PlasmaOrdered By: Nick Wasserman on 02-02-2023 Calcium [Mass/Vol] 10.1 mg/dL 8.6-10.3 [facility] Carbon dioxide, total [Moles /volume] in Serum or PlasmaOrdered By: Nick Wasserman on 02-02-2023 CO2 [Moles/Vol] 26.4 mmol/L 21.0-31.0 [facility] Chloride [Moles/volume] in S kobi or PlasmaOrdered By: Nick Wasserman on 02-02-2023 Chloride [Moles/Vol] 107 mmol/L 98-107 [facility] Cholesterol [Mass/volume] in Serum or PlasmaOrdered By: Nick Wasserman on 02-02-2023 Cholesterol [Mass/Vol] 170 mg/dL 140-200 [facility] Comment on above: Chol less than 200 m g/dl low riskChol 201-239 mg/dl borderline riskChol 240 mg/dl and greater high risk Cholesterol in LDL Calc [Mas s/Vol]Ordered By: Nick Wasserman on 02-02-2023 Cholesterol in LDL [Mass/Vol] 89 mg/dL 0-100 [facility] Comment on above: LDL ATP III CLASSIFI CATIONLDL less than 100 mg/dL OptimalLDL 100-129 mg/dL Near or above optimalLDL 130-159 mg/dL Borderline highLDL 160-189 mg/dL HighLDL greater than 189 mg/dL Very high Cholesterol in VLDL Calc [Ma ss/Vol]Ordered By: Nick Wasserman on 02-02-2023 Cholesterol in VLDL [Mass/Vol] 25 mg/dL [facility] Complete Blood Count Auto Di ffon 02-02-2023 Basophils (Bld) [#/Vol] 0.0 10*3/uL Normal 0.0-0.2 [facility] Comment on above: Result Comment: PERF ORMED BY: [place] [address] PATHOLOGIST SENSOR SPECIALIST RENAN CAIN M.D. Performed By: #### L IPID, BMP, CBC #### [address] Basophils/100 WBC (Bld) 0.4 % Normal . [facility] Comment on above: Performed By: #### L IPID, BMP, CBC #### [address] Eosinophils (Bld) [#/Vol] 0.3 10*3/uL Normal 0.0-0.45 [facility] Comment on above: Performed By: #### L IPID, BMP, CBC #### [address] Eosinophils/100 WBC (Bld) 3.4 % Normal . [facility] Comment on above: Performed By: #### L IPID, BMP, CBC #### [address] Erythrocyte distribution width (RBC) [Ratio] 13.0 % Normal 11.9-15.3 [facility] Comment on above: Performed By: #### L IPID, BMP, CBC #### [address] Hematocrit (Bld) [Volume fraction] 37.3 % Normal 34.0-46.4 [facility] Comment on above: Performed By: #### L IPID, BMP, CBC #### [address] Hemoglobin (Bld) [Mass/Vol] 12.5 g/dL Normal 11.8-15.4 [facility] Comment on above: Performed By: #### L IPID, BMP, CBC #### [address] Lymphocytes (Bld) [#/Vol] 1.4 10*3/uL Normal 1.00-4.8 [facility] Comment on above: Performed By: #### L IPID, BMP, CBC #### [address] Lymphocytes/100 WBC (Bld) 16.6 % Normal . [facility] Comment on above: Performed By: #### L IPID, BMP, CBC #### [address] MCH (RBC) [Entitic mass] 30.9 pg Normal 24.7-34.3 [facility] Comment on above: Performed By: #### L IPID BMP, CBC #### [address] MCV (RBC) [Entitic vol] 91.8 fL Normal 80-100 [facility] Comment on above: Performed By: #### L IPID BMP, CBC #### [address] Mean Corpuscular HGB Conc 33.6 g/dL Normal 32.0-35.0 [facility] Comment on above: Performed By: #### L IPNGOZI BMP, CBC #### [address] Monocytes (Bld) [#/Vol] 0.8 10*3/uL Normal 0.0-0.8 [facility] Comment on above: Performed By: #### L IPID BMP, CBC #### [address] Monocytes/100 WBC (Bld) 9.0 % Normal . [facility] Comment on above: Performed By: #### L IPNGOZI BMP, CBC #### [address] Neutrophils (Bld) [#/Vol] 6.1 10*3/uL Normal 1.8-7.7 [facility] Comment on above: Performed By: #### L IPID BMP, CBC #### [place] [address] [place] Neutrophils/100 WBC (Bld) 70.6 % Normal . [facility] Comment on above: Performed By: #### L IPID BMP, CBC #### [address] NRBC% 0.0 /100{WBC} Normal 0-0.5 [facility] Comment on above: Performed By: #### L IPID BMP, CBC #### [address] [place] [address] [place] Platelet mean volume (Bld) [Entitic vol] 8.2 fL Normal 6.3-10.7 [facility] Comment on above: Performed By: #### L IPID, BMP, CBC #### [facility] [address] Platelets (Bld) [#/Vol] 296 10*3/uL Normal 150-450 [facility] Comment on above: Performed By: #### L IPID, BMP, CBC #### [facility] [address] RBC (Bld) [#/Vol] 4.07 10*6/uL Normal 3.60-5.00 [facility] Comment on above: Performed By: #### L IPID, BMP, CBC #### [facility] [address] WBC (Bld) [#/Vol] 8.6 10*3/uL Normal 3.8-11.6 [facility] Comment on above: Performed By: #### L IPID, BMP, CBC #### [facility] [address] Creatinine [Mass/volume] in Serum or PlasmaOrdered By: Nick Wasserman on 02-02-2023 Creatinine [Mass/Vol] 1.34 mg/dL 0.60-1.20 [facility] Eosinophils Auto (Bld) [#/Vo l]Ordered By: Nick Wasserman on 02-02-2023 Eosinophils (Bld) [#/Vol] 0.3 10*3/uL 0.0-0.45 [facility] Eosinophils/100 WBC Auto (Bl d)Ordered By: Nick Wasserman on 02-02-2023 Eosinophils/100 WBC (Bld) 3.4 % . [facility] Erythrocyte distribution wid th Auto (RBC) [Ratio]Ordered By: Nick Wasserman on 02-02-2023 Erythrocyte distribution width (RBC) [Ratio] 13.0 % 11.9-15.3 [facility] Glucose [Mass/volume] in Ser um or PlasmaOrdered By: Nick Wasserman on 02-02-2023 Glucose [Mass/Vol] 91 mg/dL 70-100 [facility] Comment on above: ADA recommended refe rence rangeRandom Glucose Reference Range is dependent on time and content of last meal. Glucose of more than 200 mg/dL in a nonstressed, ambulatory subject supports the diagnosis of Diabetes Mellitus. Hematocrit Auto (Bld) [Volum e fraction]Ordered By: Nick Wasserman on 02-02-2023 Hematocrit (Bld) [Volume fraction] 37.3 % 34.0-46.4 [facility] Hemoglobin [Mass/volume] in BloodOrdered By: Nick Wasserman on 02-02-2023 Hemoglobin (Bld) [Mass/Vol] 12.5 g/dL 11.8-15.4 [facility] Leukocytes [#/volume] correc sergey for nucleated erythrocytes in Blood by Automated counOrdered By: Nick Wasserman on 02-02-2023 WBC corrected for nucl RBC Auto (Bld) [#/Vol] 8.6 10*3/uL 3.8-11.6 [facility] Lipid Panelon 02-02-2023 Cholesterol [Mass/Vol] 170 mg/dL Normal 140-200 [facility] Comment on above: Result Comment: Chol less than 200 mg/dl low risk Chol 201-239 mg/dl borderline risk Chol 240 mg/dl and greater high risk Performed By: #### L IPID, BMP, CBC #### [facility] [address] Cholesterol in HDL [Mass/Vol] 56 mg/dL Normal 23-92 [facility] Comment on above: Result Comment: HDL CHOL ATP-III CLASSIFICATION Cardiovascular Risk HDL > or equal to 60 mg/dL LOW HDL < 40 mg/dL HIGH Performed By: #### L IPID, BMP, CBC #### [facility] [address] Cholesterol.total/Cho lesterol in HDL [Mass ratio] 3.0 {ratio} Normal <5.0 [facility] Comment on above: Result Comment: PERF ORMED BY: [facility] [address] [place] [address] PATHOLOGIST SENSOR SPECIALIST RENAN CAIN M.D. Performed By: #### L IPID, BMP, CBC #### [facility] [address] LDL Cholesterol,Calculate d 89 mg/dL Normal 0-100 [facility] Comment on above: Result Comment: LDL ATP III CLASSIFICATION LDL less than 100 mg/dL Optimal LDL 100-129 mg/dL Near or above optimal LDL 130-159 mg/dL Borderline high LDL 160-189 mg/dL High LDL greater than 189 mg/dL Very high Performed By: #### L IPID, BMP, CBC #### [facility] [address] Triglyceride w/Reflex 127 mg/dL Normal 0-149 [facility] Comment on above: Result Comment: TRIG ATP III CLASSIFICATION TRIG less than 150 mg/dL Normal TRIG 150-199 mg/dL Borderline high TRIG 200-500 mg/dL High TRIG greater than 500 mg/dL Very high Standard traceable to the Center for Disease Conrtrol and Prevention (CDC) test method. Performed By: #### L IPID, BMP, CBC #### [facility] [address] [place] [id number] [facility] VLDL CHOLESTEROL 25 mg/dL Normal [facility] Comment on above: Performed By: #### L IPID, BMP, CBC #### [facility] [address] Lymphocytes Auto (Bld) [#/Vo l]Ordered By: Nick Wasserman on 02-02-2023 Lymphocytes (Bld) [#/Vol] 1.4 10*3/uL 1.00-4.8 [facility] Lymphocytes/100 WBC Auto (Bl d)Ordered By: Nick Wasserman on 02-02-2023 Lymphocytes/100 WBC (Bld) 16.6 % . [facility] MCH Auto (RBC) [Entitic mass ]Ordered By: Nick Wasserman on 02-02-2023 MCH (RBC) [Entitic mass] 30.9 pg 24.7-34.3 [facility] MCHC Auto (RBC) [Mass/Vol]Or dered By: Nick Wasserman on 02-02-2023 MCHC (RBC) [Mass/Vol] 33.6 g/dL 32.0-35.0 [facility] MCV Auto (RBC) [Entitic vol] Ordered By: Nick Wasserman on 02-02-2023 MCV (RBC) [Entitic vol] 91.8 fL 80-100 [facility] Monocytes Auto (Bld) [#/Vol] Ordered By: Nick Wasserman on 02-02-2023 Monocytes (Bld) [#/Vol] 0.8 10*3/uL 0.0-0.8 [facility] Monocytes/100 WBC Auto (Bld) Ordered By: Nick Wasserman on 02-02-2023 Monocytes/100 WBC (Bld) 9.0 % . [facility] Neutrophils Auto (Bld) [#/Vo l]Ordered By: Nick Wasserman on 02-02-2023 Neutrophils (Bld) [#/Vol] 6.1 10*3/uL 1.8-7.7 [facility] Neutrophils/100 WBC Auto (Bl d)Ordered By: Nick Wasserman on 02-02-2023 Neutrophils/100 WBC (Bld) 70.6 % . [facility] No Panel InformationOrdered By: Nick Wasserman on 02-02-2023 Estimated GFR (CKD-EPI) 40.085 mL/Min [facility] Creatinine Clearance (Chem N/A [facility] Nucleated erythrocytes [Pres ence] in Blood by Automated countOrdered By: Nick Wasserman on 02-02-2023 Nucleated RBC Auto Ql (Bld) 0.0 /100{WBC} 0-0.5 [facility] Platelet mean volume Auto (B ld) [Entitic vol]Ordered By: Nick Wasserman on 02-02-2023 Platelet mean volume (Bld) [Entitic vol] 8.2 fL 6.3-10.7 [facility] Platelets Auto (Bld) [#/Vol] Ordered By: Nick Wasserman on 02-02-2023 Platelets (Bld) [#/Vol] 296 10*3/uL 150-450 [facility] Potassium [Moles/volume] in Serum or PlasmaOrdered By: Nick Wasserman on 02-02-2023 Potassium [Moles/Vol] 4.4 mmol/L 3.5-5.1 [facility] RBC Auto (Bld) [#/Vol]Ordere d By: Nick Wasserman on 02-02-2023 RBC (Bld) [#/Vol] 4.07 10*6/uL 3.60-5.00 [facility] Serum or plasma anion gap de terminationOrdered By: Nick Wasserman on 02-02-2023 Anion gap [Moles/Vol] 11.0 mmol/L 6.0-15.0 [facility] Serum or plasma high density lipoprotein (HDL) cholesterol measurementOrdered By: Nick Wasserman on 02-02-2023 Cholesterol in HDL [Mass/Vol] 56 mg/dL 23- [facility] Comment on above: HDL CHOL ATP-III CLA SSIFICATION Cardiovascular RiskHDL > or equal to 60 mg/dL LOWHDL < 40 mg/dL HIGH Serum or plasma total choles terol/high density lipoprotein (HDL) cholesterol mass ratOrdered By: Nick Wasserman on 02-02-2023 Cholesterol.total/Cho lesterol in HDL [Mass ratio] 3.0 {ratio} <5.0 [facility] Sodium [Moles/volume] in Ser um or PlasmaOrdered By: Nick Wasserman on 02-02-2023 Sodium [Moles/Vol] 140 mmol/L 136-145 [facility] Triglyceride [Mass/volume] i n Serum or PlasmaOrdered By: Nick Wasserman on 02-02-2023 Triglyceride [Mass/Vol] 127 mg/dL 0-149 [facility] Comment on above: TRIG ATP III CLASSIF ICATIONTRIG less than 150 mg/dL NormalTRIG 150-199 mg/dL Borderline highTRIG 200-500 mg/dL High TRIG greater than 500 mg/dL Very highStandard traceable to the Center for Disease Conrtrol and Prevention (CDC) test method. Urea nitrogen [Mass/volume] in Serum or PlasmaOrdered By: Nick Wasserman on 02-02-2023 Urea nitrogen [Mass/Vol] 23 mg/dL 7-25 [facility] WBC Auto (Bld) [#/Vol]Ordere d By: Nick Wasserman on 02-02-2023 WBC (Bld) [#/Vol] 8.6 10*3/uL 3.8-11.6 [facility] Coding Summary.on 03-11-2022 Coding Summary. CD:[id number] Gh0bWw +PGhlYWQ+CM5PXTViQ95vmUQqm Z1SZ3pQUS3IJRKBZYQZCK8RQK2 kqIO2BTgaU5DdloMo OfcxjZEpHX57WFp0SMK6eVcbVE bdsM3nvOJmO7b8YxQyCV52sE04 ITzjIJVbCrS0CcNgzgmccXRl U7rpYkNfdUVrNnj+PHRhYmxlIH lzCFNqYEcoUUJfRuPugCyrLZ5h Ws4rUWXfBYJiiBagtNJvOoJn o8nqTHCmNIsqDB2xrDxrO8AyiG C5IXAqw4b0Mj16cZR+PHRkIHN0 gIkcVHatj710OlJjh9pgMHD4 oUCfASqyMHF4O36np7A3KUEjCO RlYNF5iZR7sU5wyAsiigmeY0Nu nMAyWbB2SDX2cJOsrF6enFzu brqdnO3bMdb+H23SKG8KTRTEMH 6CAfq8Z4AwTdjnnAN+QQ59LVUx ZZ15xEJcdGBja1nkuAz6QtPs BSHuQDZ7fAulWBdma6HxROBxR1 6stFVkx2U1OXNsgMqjsYDdTbUq tGX9oT2mMXihfhwhf0jyphfa Rncjw2zuql27pL64I50kRTqfKP OdGVW7XUDpUESutYbnlc0wnG5n Ii8+AIyjb7bup2uguKf0UlDv YQPgmySrmCmaZHA9p3GrIg67X7 LnhWxet1EdVrq1kx65bJXqq2K5 zIO8IFlrYLOlqN9yHVgjKoC2 QPJpIdOxjR29uXLoNDlnKb9axO fewFwcHC3hQOIabncvGYGlsM9m VWAlgEYahIlmKW3dFKMtfhdg h751XyTqYFJ0LULvzQNcF3SgqY 9vRoOnMRKbHGPaB8HwqAPaHYzl Y900VDdhRsM4AZBvrnOoJ3Gx LABxtPfsYsQ9r3M7Dk8Ym7Zpfx scBSU5OIayTOLjMrR0WnMiUkG3 Q6EqNxs7UNDivJdwZN2mS5Eb YCKnitbriyiqwAM3DKEsRTLwrM 55uHUbQUewLv3dn8R4p566ZUAk UPPpyC61Ls2niEeyCLMruXLE uW2iybdew4qoetnfEpYjMIIfTD w0VDp4PYNohOsqUoIbQLL4YxS0 JAZ6kFUagZ0kcOklmmljoU9b Oyc+S57bfS1fFJI2YLV7obonJC DlfrWqEO86OB37L3MnKtqeiJKo bGU+PCHcgrFsxDdqQC8yZgTd j1bfs7XkXDtpD7ZtQZScHSsfDk d0PAGbZEK2zLM5lR8qFVAcLTcj i2Y4zDN1A4GysjAxgu6dn4cv LNMuEWpdK68hkRZao4G6GKSgmV Z6UGTzrOzjCbGbmD29Zun+PGNv tQmyt6XzOetye7pah5ampAk6 UdTpKQCxttZvyKncJHN5i9IrUi 89K05jGXjjPJTqTIDdMPIjEOTr rBoluq0lgK0dWu8+PGNvbCB3 jWE5qK0kPKMlTeS1EVcyR149Mr SvrTWyEetio5yfv7glgIm6UnHp GDQtykSwsNtdEVG1m5XmMk86 U53nSHikCNBaHSYsEIDwYSRmwD ydqf0efR1oCh8+NL1in0udpe57 tF85lQS+LPRjMYT3eMblWEbe NXQaaM4vLOirIbQ1NATxUkWidZ 95cRSmKIudYk0rzBnnuOcoWP2h ZNNiqvjgr929OjFgm6asHXOw gOOyYBzrBJC2I37ld9Q8VUEdOC CsJVA5gNT4bL3kwOigrtqzwLJb kTzgkiNgnZicUTfjNIbhH785 IHRvcDsnPlBhdGllbnQgTmFtZT f8L9UoBhl1PVCjxSbeRI5hxESm IMyvPn3raRdbiNryXX8sRDVn enllp131ZvWhc1zdEAHnaGAqIK crRFI1H81dc3J8QTHlYJSiTME4 fTM1vI3ioUqgltwxnFLcyWkh vtEpcQaqUHymGHxuZ341JLYziO eiHqTzocFhJEShgZZ0CD24QD50 qABip9X9sWU7T8YxAUGyrbfj xugbkIV1OGSlIVBaoC35Oe7lbN ueNf7tPMBtASW1NRTpfKEvF9Gs tE8bUwVfBVXcZESjC5VyhVHq WSrfI699FNduYuS7RWHrbsWdP8 WxVQTdeGdhUsV7d4P9Vl1RT2F1 UA90TX84yYVmu0E1qCE7W7Im FLFflrumniypdBB4QJHpRDArkK 69Zw0fhUhsXj1nDBAdJWM0UIZb rYJmD0BefL9bMoOnSBFzXXUi Y2EngKTaTRhqW802NCmpZrL1BO PkulCfA0GfKTEtaYkmPsQ6w3Z0 Us7GMRz6SA15MJ68aUXhn8F4 bMV6J8IoBFVjkhampzeygFW1QF MfZWKpfL00Fs1nqAefLw4rZJTf PRF8QIAmnRHyK5HurB8pNuSo MGRiIUWsI2MibJWuYNipN937KQ pqYlN4QZJyuxJrR2MbEYIbbXkl VjW8l5N0Zb3NMRErXH98ZNP2 qQG8RD43ZS83N7DpNxfcnQGxcP U+PHRhYmxlIHdpZHRoPScxMDAl LvWaqOcbHG8hBb3yOWAoUWRo kJifaXEgPeSrr1pxZGHlHOwdEH 9seAguL5YwxNE6VZKol6b7Ur70 E62lK4PpqNH+MUHeeIA0rDN4 bC6nVeKpIaL8UTrcX239RrEzmL CzQmljz5tav3ehzXh8WaE9AGZs fpMwuBbwHXM8k0UkPf55F80q IHdpZHRoPSIxNSUiIHZhbGlnbj 1qyR6hXr9+YSHmgXB3tTD0aA3l UrAmTzF5CRweK841VmQlgRDi Rqepb6jhm3hjhVb1JmZbDPKvfy BuxBhxJUT2i1FoSh64J3VirXvf r1XaUiw7ju61aOZop3O8kPO2 U2IbERGeteknhNIsxLurUV7dXI ImnxtgCYEumF1jIVCzF8j4QaMl DdB3BXtnO5RwwpD5VOMmiNKa TIjeWPG7T49fo4X5QIKoIZNkSL A7tFE4xP6paEgemiaigYIfoHiy rhRjdJqsFNjsCMofG476AAAd aRifPNXjjA8pDHFacEAmuYshPB 6gXKJmcxvrZbOIX9XYR7ErSCGI QCOYH4tUEO40UD85iKUxq8L2 dUZ7I5XhWYLxzmfhnzogzYW6NJ LtMISqtS24uALjLUzmRq0km1Q7 b166DZDcEVWmmO02Gt4ifTeo AYRyhGNTnD0ueaagr3glscbgFq PnWSIrJEd5MMf0DOKyhQyuDmDr KEC3UoZ8QYS1pJZvmV2zrBsr uwrwaC7hWyw+GPPgBERtWUr8Ma wvdGQ+RYZrZSY6zWbgMEznFGKi wO0iECGfI8s3GsAeBuX1VIwp F1WoVWUpvusyDh41cP2yAoZtTn L0AErcC8DakwI4OHJhoFEyJVrw MBS9R28xv5B0KKAxEGBaBPX1 bNX6uW7mfVnlmjjusSEtzQznjn OftNwcDHawRIbrW547WWBakDbb Vuj5ALueQEAoMQ60SW79zJNf i8V4cXW7X1LlAPAwvyxsgxvnzK K3XFYvLDBdjD58gZWzZQgxVt6d k3K3d657GCIlMGEyqR49Fq6e mYcfGLRqiGEHgV4uxdusc4cyzi peYqTxGDLhGUa6HDh1TUIucXvp VlGzBUG1EjJ2FGY8rRHoqC8h yWlddtvktV4yTdn+RmVtYWxlPC 16SL49aRBui5J3qLO2F6MjPTCv fzmgykqgaPJ8VJRoSLVnfL97 fVViBHykMy8im7N2q567RGBgOI KpgO22Ej0plKxqCYWkjSKNsD1l grpmh0yzqfttXxSjADTeBHu7 XFy1RVVtuEciBuWfQGC5IjY1NK Y4rAOmvA6vqDikoqxyzI4cOpx+ L5LeEPH5AQEyk453X3KhTyar dHI+FR27NNNiLF59tLGysTYwp4 hpuBz5VnZqCFXiJVJ2pEniRCyc y2EyKAOtW70qtLJvc3O0UDXw wWqcqYQaHkPopQX3lW1nVXibar wmv0qkgghbZboom5wltk49aI88 I82uZDrkDLLrCLKcINQtROLn eLeqgt4cdB5tEp5+EYBlqGK6uR H0bT1vOhIcVeH5PAwtP590WiOc gIQyMezjs6pgh0gdcHb7XuDm OPGkugQgwNduWAL0i7QhPu74L9 9sIHdpZHRoPSIyMCUiIHZhbGln hi0zpC8tFg5+NV0dj7lntu50 fI69kHI+SDXqUPD6hCsfQHqqVL SydV3iSUirRqW9QDOoGfHpjH38 sFPtQGnzEu3soAqduTfwLI2w HFEhiuhie440VgXvr4yeNZDjeO NiTQvoKMQ7G27md8L8PSZdZZMf SMB7gPC8wX4fgKpvpkynpIQz oMdozvNwvZwcWIekNZqtN967IA ZqyVwjQeRagDQgO5nshbMYBN1s OjwvdGQ+DZFvSCN9iJhpTIly LGAgdS8iZYWvW4g3GrZlOqU9JJ kqT9BvjlT0KDPbwLHxAGKqfYCK zA8pwekix3lgksixGcPhZYDx RDs9ZPl2CPSumHuxMsTwSFI0Rp V3CED1iIBoiP9cwTfatxwgfM7a Oyc+RklOOjwvdGQ+PHRkIHN0 lIoaGXkdGXLxqJ3rPIYfY6v9Dg EfQaU2IQfvM4MxnqP8THUpnKRh DEQyaOKDxZ7wlmurw9gtycrs LvTgQETaHVd2JBg2WUIeaTvuPz EiWSY3PqS1KPA0xMGmkP5xeEre vusgeH3qPys+TVJOOjwvdGQ+ OLAlXMW2yQrzEMkdKRYfyK4bOI NoE5x8RaNzVqC6KRxxZ8GoqnX1 MBByzQFqUCOwuPZVmZ9xmomf n8wpfyhbVrLiJBTfXEf0MVz2MC GecDgwNsRsZNC2EqS0VBU5jUKj nJ5gyLizgftheI5lCfw+UGF5 UWP8SK35SP49G1LcSeqvoTCmhL U+PHRhYmxlIHdpZHRoPScxMDAl VnYmoPfjEK7qAj1zLWUkSBVe bGxh (more content not included)... [facility] Office Visit (Cardiology)on 03-06-2022 Follow-up visit [...] negative for complaint. Vitals Vital Signs Recorded: 06Mar2022 03:48PMRecorded: 06Mar2022 03:25PM Iyrwftzn258, LUE, Xbveqsi148, LUE, Sitting Vqucnszob91, LUE, Bzvspkj64, LUE, Sitting Heart Rate66, L Radial Height4 ft 9 in Mhtxxa833 lb BMI Yaklagetvj98.37 kg/m2 BSA Calculated1.38 Tobacco Useb) No Falls [...] Mar 06 2022 4:39PM EST (Author) Normal [facility] Tobacco Screening.on Fall risk assessment a) No falls within the last year [facility] y 250 DO Work Phone: Tobacco use status [facility] b) No [facility] y 250 DO Work Phone: IntraOperative Documentson 1 05-04-2021 IntraOperative Documents [id number]#[id number]:127 Normal [facility] General Surgery Office/Clini c Noteon 03-03-2022 [...] Martinez to record this visit. ANA M client resolution specialist and provider reviewed before signing. ANA [...] list Allergies Percocet (Nausea) Darvocet-N 100 (vomiting) [place] (Vomiting) oxyCODONE (Vo (more content not included)... Normal [facility] Comment on above: Result Comment: Elec tronically Signed By: Jannet ERIC, Jay Lock\.br\Date and Time Signed: 03/03/22 12:50 EST\.br\Electronically Co-Signed By: Rosario Wright\.br\Date and Time Co-Signed: 03/03/22 11:16 EST C [...] Locations R1: This test was performed at: [facility], [address] [place] [address], [facility] , , [facility] Comment on above: Performed By: #### 2 [id number] #### [facility] [address] [place] [address] Coding Summary.on 02-25-2022 Coding Summary. CD:[id number] Gh0bWw +PGhlYWQ+UN8ZTBHjY82tzWXmz R1BR1vARE1FFUIRPASVUP0NRG1 orKZ6GHbwX3KlpqYu ItsufTJgEU84NDn1FPM1eDglOG ebfS7zaLMjV9k1AyKiML93bX36 WZsnLUHoQcD8LzUewvlzvCGz A8bcGzDedJHsRjr+PHRhYmxlIH haRZIqCWytLLTuJdQouMyrPX3e Ab0jPKYkFTWquObmqTWuCzBp b6hmTBFyULhcXB7gyFwdG7NmpD B9TRMln3g6Vm17zUZ+PHRkIHN0 cRzbBCeil057WdAcd1tyEXX9 lWLnKDqrUPU7M96cq2S9VXIlXN HmWIO1kYL1kY9nqAttmnkdM7Js uXUjPwC9CKG5dNFodK1iwNlb hafgjX7vVok+C97TON3NYPXJKG 0QNsx5W3WwGbcryWS+PE44QQKv LV66hSKkpWJbl6nswRf2McGm MZUnKHB4cNpvVIlwj6HgBFFaH7 9xtWVls3J9APRmhMrasUSgVtVt jDV9lM6rHDlptazaw0xctash Sxtii4booq91bO66Q91fATnvFF IkALJ0CWQdFNNpjJdqpg1kxL2e Ii8+MHmjq0yln6svbUq7RtSg MELrkuTkyFtmQMU3r7QlXz38J2 VksHozs6SwBdd4jg09oVJze9E5 pTZ5WRrzBFOffO3vWAscTxJ5 IPWoJmRbpD90mTIiWNgzBb2pbZ dofJdyLS7uRNVgxlevJPIohT7d FHKnoHPizAxtIZ4lSRKttblo x325GxYrQDL9VUCcsKDmJ2GjvW 6aPdXaISObYHHjP4CkoUDmZAdb J613SScnAfI6BSFhjlHzF8Cc WHOetRapYgO4s2A2Sl9Vv6Ybfp snLLW6WZfpVQQjDcZcHfFpBeN0 B8KzLpi8JYEemRscFO7jD7Em TAZqkksywaeytVJ6DLScCXPftG 08bBUrHGspRa8dx3D3k602RKVh UTEhzT85Wp2uuGaiWXCdqXEG jH6rgqhtp1ojkqdjOpXqAHVqMZ h1EPj2JSRznWvyRaPbOMM6BoA1 FTK3wRPkaY3rqWboyiwegS7c Oyc+Z13ckX3rQZU4YGH9zjlkBG VnyePlPC33BV34B4GqZtdtyKKt bGU+DGErpyIhaEgeSS5zMgRc h5hos0VaBLbsZ3RvREJyKRtoOo y9JKJtYHT3rBU1hZ4iPOIhNDsy l4T7fNP0D9NpcjZlkn4fu4iu MXNsUImpL26olEYvo3T5LKAxqP P6FMQwmFxrSkNhhV11Yaw+PGNv gVcqv4TjZrmnw9ode5vmfBx6 DxShBZPafjYhoOueHQF3w1IrAu 26M31lLJuvTULmRETpEXDgCCNv wTnrsr9xfH0zLe3+PGNvbCB3 rRV9kO8gGDUtRdZ1RJeoK221Ex DriUIpZqfnx3zvq2hkmZs9HsNd UAEucySnzTatCEF5x1EtZm61 G57oGCjfOQXxWSQfQCFfZZTtuC dqzn9jhS3jSs4+LP5su4kwni82 fM31pOX+YFEdDPM4sZynGKie ZFVtpX0gFNxjEoL3BQNdSnJtdQ 38wCGpBXbfXv7kuWjibYihPL9e ZRTrddorv533QtFnh0xvQSPe mXCmSBsoXCH3C69ga4O6DRKzVG MyEGF0tEU1hW7ryOennughqRIb qQguujJgaIocEXhrPDryC852 IHRvcDsnPlBhdGllbnQgTmFtZT g5Y0QyCaw4YAOqjYraQE5ruRMj YNjrVa1jeWiwxKekPP3xYGSn eeqfb337PqEop9mxYMAwqYEdPA qyVFG0R18gr5G6QMOeFMFmIWM8 wSC7kY4awCzolzldsTZagDza yhKixIutSMvbLBfyE463MHJnsY zoQmDnslLtSDCduXP0ZZ93GS93 yZFyy7K7pRI7U3QjKHMewhqu khjcoIQ1QXGlGVQgqX43Ex4mpY wwXy9iGMIrPIZ7RPHzxPEiK5Xo gB7cWsClBIQuEPYdO5IfrNAp YYrgD800YAlcIgT2AETykeHgC6 HsNMDyeQmdYqV2t9T3Ol2KT4A5 GL98XD47uWRdx2X5oFF2X3Ir NDHlboifgauayJX8WMEyTOTrlM 49Tz6dzGhbFw6gCSZjJEU5EZCe xVFmI8SurK2mClDyZTKuHBWn V1WckXCuPPhkE044NZbwVdJ9QV ZmmtWpB0TnGJFziElbZwZ4u0U4 Pk1MEHp4WP38ID82sGBsu7X0 jWL2X1WzNYWxpkmqgdscoUJ1IU YcXJMvwE49Pu1cwVenKf7eBEMb HEH4MCLzcHHeF7LggQ8rDnEp KPYlQHOuG1OwvGOiTXfnG954RS xqZkL3HJOpopUeA1NcSGOnzGev LbW8q0F1Bc5VAGTvOV85OKT9 xSP1CA03NS24N5WiMoxciUZqyR U+PHRhYmxlIHdpZHRoPScxMDAl TtGrkDgbQF7cCe2fSSUfWELe jHjyoDCoUuVik0ljQQYmWMlwIE 4elKdbF3QczDR2CORmh2v4Vg52 L44aK3HkaGW+VXXjkKO1zTV1 jW9oKjPyWcA3IQfzQ294LjGzsB AiKxfeg1tri0zsmRw4DrB5HFGb xdCrfRhuGDC6e9LcKo13D62v IHdpZHRoPSIxNSUiIHZhbGlnbj 8azU8dMz5+VIAthWG9wUW6kK1z IuBdSiH6BNcfO771LtAapNAi Mkbok5rzi5eqsGp9YvLjPAFqmg PpcDhyMCJ1e3QdMw13N1GpoEdu b1SqLch0ug75mQUhr4H2gBJ3 V8UnFDQkhjpcaMFmhPcaFB3rOK QmazotGXWsnT0mLLVbK2p2TeJm QgM5XLvcZ1ByupR7KHMiwLVc PTryKQK1P45sq2I4PNFiMKOqKV V3mKZ4fI6hrMbltnwyaAAcaUnm hqKpkCyhFKxbJLtbZ360QWEh jIjyEXNrlD4jTRHxeUSmqUmkHQ 5eVQAzyquzKtLJU8TFA3HwYSPO AIMSL5qSKQ49EK08iDNis4K0 jIG4A7MwXFYptevlzazebQA1PS SbNWEllU78kDVfUFwpZt7mj3S4 n156VYBnOWJasA28Zd2duDbv VVPafTKYjR6tzjzhi1puyqfvJf AjRFMqHRx2BUk9GXTkwOapNrSe VYE9TdT4YTE6eZXczI7hpOwt thekbI7wHoc+TVDyGGMlBUc1Cw wvdGQ+MJAhBZC2xAktOThbKLLv oL5gZPUkH9n1UiZeAlN7DLss F7JeYBMrndjoBl17bQ1sAtYePn W3UDfsR4QtwsP8WQGlrIPvZOgb VGM4B43rw0G4HAFvGGByEUF1 oXT4oB5pzHrllfrlzKYanRguzk EjwIszSYviCCsvI197YMTwaFvd Hcy7KVnqFIMnWI48WT64hURq g1C9jES5T9JmGBFgbvnjkwtjbP M1VJIxDLLbbS52oXKtXZgzJb1k w4H6o055BVZdLRHbzV16Yg8i qNtsFIHswNRRcQ1ncnexu3yask ztObSvBCAtGLi3ORi2PHRjyPke HaXdDJV4ItM9RGE9hLSpuO6f yRszecnyvD1gQrb+RmVtYWxlPC 45ZH78kTXry4Y7nZV7Z0CaCJSf wcvsbprftBW4NTRyVTClcH89 sIBqBUpfUm2lg8M2x385MNGtVN RskC99Fr6tpHjkEJRxfUPAhW8p ttoxr4jhdosqEcPjCXEvDZo4 PGp9NDNacNvdXlNnNBS0VeE0ZR L9fQZcwP5hhDwgynxnnR6hMuc+ OY5gcJmzjC7huC1TUS7kRWEk xLRRvOKmHIP8ES33NC37E0KtCj wvdGFibGU+PHRhYmxlIHdpZHRo HUyhWHNlTxMbfOizLZ7xUj6b GRWiXPLhgJptbHBaBzDna0dbOA EhUItxBO9afWisH7PszZU2KXZm y4h5Ps71B22wO4HemHX+PGNv pHD3wSE3uK0uPrMgSnM5DAooW9 75RgSqaPJaDcmfj9xnd9xlzPc5 BzIeZPLcxoTddKuaMTD2e4Gi Yb82G63rRCeoLVCsHTHgNMRsZL GiuTyozl0uwK4iDt6+PGNvbCB3 sQX0kA3oWvAkXcG0JZfvA047 IwQrnMYcVwcuR61yG3RicTI+PH VcAco2INLewQyxVV9icRThWPhc Px0nPUM8KsGmUfPdLVahJ7Qy VCYwyevmmshrqWU6QKVaSPCnlW 45Rr1ugUryNe7hVMXtNMU3MGAw rPPuK1KutW7zJkOuQQSuDFHv Z9ObxHQoZHlwS106XWwlTxJ6ML RsmxIhO2RxNGUcvDamHoJ9i7A8 Hz8WhCjzmGGrUL2qYtYyDQe0 V7GdJqg6ZYErgYyoDY6ybUDyLT vjJh8jdTchiXmrQY4jYKKckevn h171EdNfj8xbYBWhfZXjPKse AJT6X53ns6U5TTRxSQAaFCO8oI Y6mQ5ayBdohjkibHPjmRktyrUu jMbuZDjaYMjoC610FYKrtWxf DrOXWhj1Y9FtCwv0CQBsiYhpHB 6amHAuVYshFt8ldGdqlNnwWY7f CDIctloyu513HfEbw1wtWCBm tALfFQueSGT8Y97hs7L5DYAsPB HgDKY6vWY2aK8kzHvavyfsiQNg sIbmbyQuoGfhJEmnEAwfV522 BSOorHrsFu8VBif6S9DuBnk8OO OvnMykMS3ovLJbCFuxSy4pqBbh dYnmDJ0kANAfiyyee268SfBg l6zmZGIygYLoSMifVVN1P53nf6 X6JKNtRIYdRYZ4mWC2rW4zcGpw bjogbGVmdDsgdmVydGljYWwt OOogM136XANtsLvbAzGyvFOgRp wvdGQ+LL19zn95Z0NaXxmvIpq4 MQVwNDN4vLB4eX8uWSXmJDiq c3R5 (more content not included)... Normal [facility] Consultation Noteon 02-26-20 Consultation Note Patient: [...] STABLE AND NO WORK UP NEEDED [facility] Comment on above: Result Comment: Elec tronically Signed By: Lisy ERIC, Nick Cheema\poppy\Date and Time Signed: 02/25/22 14:40 EST Discharge Instructionson Discharge Instructions [id number]:127 Normal [facility] Inpatient Clinical Summaryon 02-25-2022 Inpatient Clinical Summary [address] [address] Clinical Summary Person Information: Name: ADINA PERRY Age: 81 Years : 1940 Sex: Female PCP: ADRIANA CRUZ DO Marital Status: Race: White Ethnicity: Non- or Language: Tuvaluan Visit Id: Visit Reason: Fatigue; Post surgical problem; ABD PAIN, ABNORMAL CARDIAC ENZYME LEVEL Speciality: Acuity: Enc Type: Observation Med Service: Medical Arrival: 02/24/2022 13:07:19 Discharge: Dispo Type: Admitted as IP to this Hosp Address: [address] [place] [address] [address] [place] [id number] Provider Notes: Diagnosis: 1:Abdominal pain; 2:S/P hernia [...] Percocet (Nausea) Darvocet-N 100 (vomiting) oxyCODONE (Vomiting) [place] (Vomiting) Measurements: Height: 146 cm Weight: 49.7 [...] Physician: Follow up: With: Address: When: ADRIANA TIRADORADHA [address], [facility] [address] [id number] [facility] () 03/10/2022 11:00 AM Comments: Appointment will be with the MOLD DESIGNER With: Address: When: Jay Power 03/03/2022 9:00 AM Comments: Call for followup appointment 2-3 weeks or if already scheduled keep appt. Type Location Start [facility] 03/03/2022 9:00 AM 03/03/2022 9:20 AM Confirmed Patient Education Information: Weakness; Abdominal Pain, Adult, Ctdm-lb-Opei [facility] Inpatient Patient Summaryon 02-25-2022 Inpatient Patient Summary ADINA PERRY :1940 Visit Date:02/24/2022 Inpatient Discharge Instructions Your Care Team Admitting Physician - J Carlos KEN MD Consulting Physician - Jannet ERIC, Jay Ayala MD, Mary Reason for Your Visit Had hernia repair [...] Pending Diagnostic Test Results None Pharmacy Information [facility] Previously Scheduled Follow-Up Appointments Thursday 9:00 AM EST With: Jannet ERIC, Jay Lock Where: [facility] General Surgery [facility] Inpatient Patient Summary ADINA PERRY :1940 Visit Date:02/24/2022 Inpatient Discharge Instructions Your Care Team Admitting Physician - MELI ERIC, J Carlos Consulting Physician - Jannet ERIC, Jay Ayala MD, Mary Reason for Your Visit Had hernia repair [...] Test Results None Pharmacy Information [facility] [place] Previously Scheduled Follow-Up Appointments Thursday 9:00 AM EST With: Jannet ERIC, Jay Lock Where: [facility] General Surgery [facility] Inpatient Patient Summary [place] [id number] Patient Discharge Instructions PERSON INFORMATION Name: ADINA PERRY Date of : 1940 Current Date: 02/25/2022 15:24:21 PHYSICIANS Admitting Physician: MELI ERIC, J Carlos Primary Care Physician: ADRIANA CRUZ DO PCP Comment: Discharge Diagnosis: 1:Abdominal pain; 2:S/P hernia repair; 3:General weakness; 4:Abnormal cardiac enzyme level; 5:CAD (coronary artery disease); 6:HTN (hypertension); 7:HLD (hyperlipidemia); 8:GERD (gastroesophageal reflux disease); Personal history of other diseases of the digestive system Condition at Discharge: ADINA Gamble has been given the following list of [...] Follow up: With: Address: When: ADRIANA CRUZ [address] [place] [address], [address] [id number] [facility] () 03/10/2022 11:00 AM Comments: Appointment will be with the MOLD DESIGNER With: Address: When: Jay Power 03/03/2022 9:00 AM Comments: Call for followup appointment 2-3 weeks or if already scheduled keep appt. In the event that this physician does not participate in your insurance network, please consult with your insurance company to find a nearby participating provider. Type Location Start [facility] 03/03/2022 9:00 AM 03/03/2022 9:20 AM Confirmed [...] [facility] every day. Pharmacy Information: [email or web address] Comment: PATIENT EDUCATION INFORMATION Instructions: Weakness [...] ? Stre (more content not included)... [facility] Interdisciplinary Note - Reji e Manageron 02-25-2022 Interdisciplinary Note - Animal Physiologist CRM to room to discuss DC planning. Patient is alert, oriented and participates in DC planning. Patient is from home alone, has good family support. Patient daughter will transport at DC. Patient PCP, home DME and insurance reviewed. Patient is observation for abdomen pain and abnormal cardiac markers. Patient had a CT of abdomen and chest, see reports. Patient was rounded on by [facility], CRM waiting for updates. Patient is getting IVF. She is pending consults of gen sx, and cardiology. Patient was evaluated by PT/OT and they have no recs. Patient denied need for HH or PT. Patient provided CRM contact information, white board updated. Patient anticipated DC later today or 02/26. CRM following Normal [facility] Comment on above: Result Comment: Elec [...] safely and independently once medically stable. Normal [facility] Main OR Intraoperative Recor don 02-25-2022 Main OR Intraoperative Record Normal [facility] Monitor Recordon 02-25-2022 Monitor Record [id number]:127 [facility] Monitor Record [id number]#[id number]:127 [facility] Postoperative Documentson Postoperative Documents [id number]#[id number]:127 [facility] Troponin 9 Hr.on 02-25-2022 Troponin I.cardiac [Mass/Vol] 90.10 pg/mL Abnormal 10.10-27.1 0 [facility] Comment on above: Result Comment: Crit [...] Sensitivity Troponin I Instructions For Use, Fantasma Olivia, November 2017) Performed By: #### 1 [id number] #### [facility] [address] [place] [address] Auto Diffon 02-24-2022 Basophils/100 WBC (Bld) 2.8 % High 0.0-2.0 [facility] Comment on above: Order Comment: Order Added by Discern Expert. Performed By: #### 1 [id number], 8407985, 0123259, 1425080, 00140768, 1711484, 4707447, 1993013 ####[place] [address] [place] [address] Basophils/Leukocytes Auto (Bld) [Pure # fraction] 0.2 E9/L Normal 0.0-0.2 [facility] Comment on above: Order Comment: Order Added by Discern Expert. Performed By: #### 1 [id number], 4554822, 8524772, 8865433, 71923758, 9351805, 1892094, 1790352 ####[address] [address] Eosinophils/100 WBC (Bld) 3.6 % Normal 0.0-8.0 [facility] Comment on above: Order Comment: Order Added by Discern Expert. Performed By: #### 1 9378035, 5664231, 9168453, 4042101, 22137836, 9370807, 2969673, 0687118 ####[address] [address] Eosinophils/Leukocyte s Auto (Bld) [Pure # fraction] 0.3 E9/L Normal 0.0-0.5 [facility] Comment on above: Order Comment: Order Added by Discern Expert. Performed By: #### 1 5836971, 7889202, 7570019, 3385850, 09654340, 1257577, 1155271, 7334038 ####[address] [address] Lymphocytes/100 WBC (Bld) 12.3 % Low 14.0-50.0 [facility] Comment on above: Order Comment: Order Added by Discern Expert. Performed By: #### 1 9230660, 6971310, 6542139, 0874851, 53019549, 5806170, 4338852, 8576743 ####[address] [address] Lymphocytes/Leukocyte s Auto (Bld) [Pure # fraction] 1.0 E9/L Normal 1.0-4.0 [facility] Comment on above: Order Comment: Order Added by Discern Expert. Performed By: #### 1 9963681, 9149245, 8849573, 3786493, 55712761, 5401264, 4738976, 6573967 ####[facility] [address] [place] [address] Monocytes/100 WBC (Bld) 7.4 % Normal 4.0-14.0 [facility] Comment on above: Order Comment: Order Added by Discern Expert. Performed By: #### 1 6684687, 5520638, 9733556, 4922843, 23261293, 1957720, 2048202, 9948126 ####[facility] [address] [place] [address] Monocytes/Leukocytes Auto (Bld) [Pure # fraction] 0.6 E9/L Normal 0.2-1.0 [facility] Comment on above: Order Comment: Order Added by Discern Expert. Performed By: #### 1 [id number], 8167408, 2564895, 6368663, 50494546, 4512194, 0151902, 6625159 ####[facility] [address] [place] [address] Neutrophils/100 WBC (Bld) 73.9 % Normal 36.0-75.0 [facility] Comment on above: Order Comment: Order Added by Discern Expert. Performed By: #### 1 6761608, 3810744, 5231779, 8243161, 45001407, 3336064, 3217360, 2182017 ####[facility] [address] [place] [address] Neutrophils/Leukocyte s Auto (Bld) [Pure # fraction] 6.2 E9/L Normal 2.0-7.5 [facility] Comment on above: Order Comment: Order Added by Discern Expert. Performed By: #### 1 9730031, 2033957, 6708316, 0486884, 75750392, 4494462, 9346550, 6731432 ####[facility] [address] [place] [address] BMPon 02-24-2022 Creatinine [Mass/Vol] 1.1 mg/dL Normal 0.5-1.3 [facility] Comment on above: Performed By: #### 1 8887982, 4612883, 2766291, 3375436, 82795815, 5997040, 8721353, 8401296 ####[facility] [address] [place] [address] Urea nitrogen [Mass/Vol] 18 mg/dL Normal 5-21 [facility] Comment on above: Performed By: #### 1 4125662, 4159834, 6069693, 0457008, 34591632, 4283518, 2613266, 5045949 ####[facility] [address] [place] [address] Urea nitrogen/Creatinine [Mass ratio] 16 No Units Normal 10-20 [facility] Comment on above: Performed By: #### 1 4695327, 3336207, 6550023, 8922259, 08130677, 7775452, 5415689, 1216701 ####[facility] [address] [place] [address] Anion gap [Moles/Vol] 16 mmol/L Normal 6-16 [facility] Comment on above: Performed By: #### 1 3814168, 2766126, 9019166, 8082206, 03588322, 2021140, 9925331, 4477663 ####[facility] [address] [place] [address] Calcium [Mass/Vol] 10.5 mg/dL Normal 8.9-11.1 [facility] Comment on above: Performed By: #### 1 2532834, 3580812, 2003053, 5283500, 94696273, 4412995, 3261412, 6426712 ####[facility] [address] [place] [address] Chloride [Moles/Vol] 97 mmol/L Low 101-111 [facility] Comment on above: Performed By: #### 1 8047596, 9876579, 5118038, 7349412, 66896107, 9469361, 0054446, 2041958 ####[facility] [address] [place] [address] CO2 [Moles/Vol] 28 mmol/L Normal 21-31 [facility] Comment on above: Performed By: #### 1 8431145, 6572264, 4337093, 7371347, 19197474, 1913029, 3201649, 3785455 ####[facility] [address] [place] [address] Glucose [Mass/Vol] 137 mg/dL Normal 55-199 [facility] Comment on above: Result Comment: If t his glucose result represents a fasting glucose, interpretation should refer to the following reference range: 55-99 mg/dL Performed By: #### 1 2799416, 0778961, 6227339, 5303662, 54502160, 5024478, 4045969, 6546648 ####[facility] [address] [place] [address] Potassium [Moles/Vol] 3.5 mmol/L Normal 3.5-5.3 [facility] Comment on above: Performed By: #### 1 5195064, 2877020, 2181085, 4125313, 13964285, 4612257, 1332892, 3009725 ####[facility] [address] [place] [address] Sodium [Moles/Vol] 137 mmol/L Normal 135-145 [facility] Comment on above: Performed By: #### 1 8282799, 6593586, 0061294, 6129451, 46696324, 9779536, 7853323, 8144730 ####[facility] [address] [place] [address] CBC w/ Auto Diffon 2 Erythrocyte distribution width (RBC) [Ratio] 13.4 % Normal 10.9-14.2 [facility] Comment on above: Performed By: #### 1 8374636, 8923919, 0765481, 3428988, 67046217, 2776088, 4189531, 8179524 ####[facility] [address] [place] [address] Hematocrit (Bld) [Volume fraction] 39.5 % Normal 34.0-46.0 [facility] Comment on above: Performed By: #### 1 5332676, 0561330, 1762926, 5291173, 76812932, 4565905, 8839201, 8512996 ####[facility] [address] [place] [address] Hemoglobin (Bld) [Mass/Vol] 14.1 g/dL Normal 12.0-16.0 [facility] Comment on above: Performed By: #### 1 9033862, 3814380, 9475491, 1245142, 84506726, 6077684, 5206513, 1734662 ####[place] [address] [place] [address]757 MCH (RBC) [Entitic mass] 31.2 pg Normal 27.0-34.0 [facility] Comment on above: Performed By: #### 1 4996799, 9945589, 5716877, 1960136, 14168923, 2816186, 9066570, 5392807 ####[place] [address] [place] [address] MCHC (RBC) [Mass/Vol] 35.7 g/dL Normal 31.4-36.0 [facility] Comment on above: Performed By: #### 1 6325084, 9497042, 7956042, 6803497, 15547051, 3537692, 2283592, 2623868 ####[place] [address] [place] [address] MCV (RBC) [Entitic vol] 87.4 fL Normal 80.0-100.0 [facility] Comment on above: Performed By: #### 1 1840959, 0882105, 8288661, 9934139, 68452536, 0768228, 7392374, 2622794 ####[address] [address] Platelet mean volume (Bld) [Entitic vol] 8.3 fL Normal 6.4-10.8 [facility] Comment on above: Performed By: #### 1 7420842, 8746638, 3914258, 7483050, 81794724, 9798784, 8293265, 7158696 ####[facility] [address] [place] [address] Platelets (Bld) [#/Vol] 295.0 E9/L Normal 150.0-500. 0 [facility] Comment on above: Performed By: #### 1 2476082, 5078750, 1619161, 0233391, 15494544, 3978668, 8108534, 3050146 ####[facility] [address] [place] [address] RBC (Bld) [#/Vol] 4.5 E12/L Normal 4.3-5.9 [facility] Comment on above: Performed By: #### 1 3382389, 4040155, 7720802, 7115105, 30932755, 2623205, 6189639, 3892627 ####[facility] [address] [place] [address] WBC corrected for nucl RBC Auto (Bld) [#/Vol] 8.4 E9/L Normal 4.0-11.0 [facility] Comment on above: Performed By: #### 1 9553653, 8337328, 1248147, 6529898, 85122743, 1384522, 7762292, 5768326 ####[address] [address] [address] Abdomen/Pelvis w/ Contras ton 02-24-2022 CT [...] 79 Rectal Contrast Given? No Normal [facility] CTA Chest[place] 02-24-2022 CTA Chest Exam [...] FINAL REPORT (more content not included)... Normal [facility] Consent for Treatmenton 02-05 Consent for Treatment [id number] Normal [facility] ED Clinical Summaryon 2021 ED Clinical Summary (Inserted Image. Elvia ble to display) [place] [id number] ED Clinical Summary Person Information Name: ADINA PERRY[place] Age: 81 Years : 1940 Sex: Female Language: Tuvaluan PCP: ADRIANA CRUZ DO Marital Status: Visit Id: Visit Reason: Fatigue; Post surgical problem; SHYHPPMW-RIVLINS-JEL PAIN Speciality: Acuity: 2 Enc Type: Emergency Med Service: Emergency Arrival: 02/24/2022 13:07:19 Discharge: LOS: 000 05:49 Checkin: 02/24/2022 13:07:19 Checkout: 02/24/2022 18:56:59 Dispo Type: Admitted as IP to this [facility] EVENTS: Event Name Event Status Request [...] 02/24/2022 18:56:59 02/24/2022 18:56:59 02/24/2022 18:56:59 ADDRESS: [address] [place] [address] [address] [place] [id number] PHYS DOC NOTES: MEDICAL INFORMATION: Prescriptions Given: [...] Abdominal pain; Abnormal cardiac enzyme level Normal [facility] ED Note-Physicianon 02-25-20 ED Note-Physician Basic [...] she is known to Dr. Wasserman from [facility] cardiology. She also stated that previously she [...] puff(s), Inhalatio (more content not included)... Normal [facility] Comment on above: Result Comment: Elec tronically Signed By: Jay Emery DO\.br\Date and Time Signed: 02/24/22 17:27 EST ED Patient Education Noteon 02-24-2022 ED Patient Education Note Normal [facility] ED Patient Summaryon 022 ED Patient Summary (Inserted Image. Elvia ble to display) [place] [id number] Patient Discharge Instructions Person Information Name: ADINA PERRY Age: 81 Years Arrival Date: 02/24/2022 13:07:19 Discharge Diagnosis: Abdominal pain; Abnormal cardiac enzyme level Primary Care Physician: ADRIANA CRUZ DO Provider Information Primary Provider: Jay Emery DO Advanced Linen Controller:None The exam and treatment you received in the Emergency Department were for an urgent problem and are not intended as complete care. It is important that you follow up with a doctor, nurse practitioner, or physician?s assistant director of plant operations for ongoing care. If your symptoms become [...] opioids can be used to help relieve ficcbjsl-uq-qyhzla pain and are often prescribed following a [...] be struggling with addiction, tell your health technical healthcare consultant and ask for guidance or call [facility]?S National Helpline at 1-330-944-TQQL. y Source: [place] Department of Health and Human Services/Center for Disease Control & Prevention [facility] Medications Given: Med (more content not included)... Normal [facility] Hep Func Panelon 02-24-2022 Albumin [Mass/Vol] 4.4 g/dL Normal 3.3-5.0 [facility] Comment on above: Performed By: #### 1 8668146, 4052621, 6039176, 6323607, 84038001, 7374637, 6061086, 4995243 ####[facility] [address] [place] [address] Albumin/Globulin (S) [Mass conc ratio] 1.3 Normal 1.1-2.2 [facility] Comment on above: Performed By: #### 1 1570034, 0244776, 9481128, 3804368, 86448291, 9308405, 9064919, 6069232 ####[facility] [address] [place] [address] ALP [Catalytic activity/Vol] 72 Int._Unit/L Normal 21-98 [facility] Comment on above: Performed By: #### 1 9170541, 9796513, 7054337, 6698482, 97366017, 8808492, 2000202, 4319702 ####[address] [address] ALT No additional P-5'-P [Catalytic activity/Vol] 16 Int._Unit/L Normal 6-46 [facility] Comment on above: Performed By: #### 1 5835800, 9393254, 2665193, 5092043, 07730474, 1410136, 2540212, 4755812 ####[place] [address]57 AST [Catalytic activity/Vol] 18 Int._Unit/L Normal 5-43 [facility] Comment on above: Performed By: #### 1 3588698, 3240431, 7276270, 8241779, 45608032, 3590663, 9932109, 8416832 ####[place] [address] [place] [address] Bilirubin [Mass/Vol] 0.7 mg/dL Normal 0.0-1.1 [facility] Comment on above: Performed By: #### 1 7092447, 6760474, 2295076, 5616030, 59588441, 2581077, 5583793, 2729902 ####[address] [address] Bilirubin.direct [Mass/Vol] 0.1 mg/dL Normal 0.1-0.4 [facility] Comment on above: Performed By: #### 1 2885434, 8805767, 7420161, 7187977, 68248000, 8192423, 7120994, 4464739 ####[facility] [address] [place] [address] Bilirubin.indirect [Mass or moles/Vol] 0.6 mg/dL Normal 0.1-0.9 [facility] Comment on above: Performed By: #### 1 4489946, 1015567, 5291865, 4228247, 05370570, 9870165, 4200934, 3564568 ####[place] [address] [place] [address] Globulin (S) [Mass/Vol] 3.5 g/dL Normal 1.4-4.0 [facility] Comment on above: Performed By: #### 1 9003112, 6724357, 4385172, 9951149, 62541240, 8243971, 4090009, 8485139 ####[place] [address] [place] [address] Protein [Mass/Vol] 7.9 g/dL High 6.0-7.8 [facility] Comment on above: Performed By: #### 1 3874866, 3324626, 2733352, 2809507, 35318545, 6418401, 6922269, 2710880 ####[address] [address] Lactic Acidon 02-24-2022 Lactate [Mass/Vol] 1.5 mmol/L Normal 0.5-2.2 [facility] Comment on above: Performed By: #### 1 8875537, 5313137, 0892896, 4269450, 17942206, 0776528, 0619676, 3523315 ####[place] [address] [place] [address] Lipase Levelon 02-24-2022 Lipase [Catalytic activity/Vol] 43 U/L Normal 13-58 [facility] Comment on above: Performed By: #### 1 7787062, 7627425, 2995300, 8485390, 95202027, 3102644, 0454760, 3263710 ####[address] [place] [address] Monitor Recordon 02-24-2022 Monitor Record [id number]#1.00CD:127 Normal [facility] Monitor Record [id number]#1.00CD:127 Normal [facility] Operative Reporton Operative Report SURGERY DATE: 2021 DIRECTOR OF ASSESSMENT: Kylie Costa, Certified Clinical Tech INDICATION FOR SURGERY: The patient is a 81 year old female with previous abdominal hysterectomy performed in an open fashion in the presenting with a 2 cm incisional hernia that is symptomatic seen on computerized tomography scan from [facility]. She is here today for robotic assisted [...] condition. Jay Power M.D. lr Dictated: 02/19/2022 [id number] Transcribed: 02/19/2022 Normal [facility] Comment on above: Result Comment: Elec tronically Signed By: Jannet ERIC, Jay Lock\.br\Date and Time Signed: 02/24/22 07:55 EST Troponinon 02-24-2022 Troponin I.cardiac [Mass/Vol] 105.90 pg/mL Abnormal 10.10-27.1 0 [facility] Comment on above: Result Comment: Crit [...] Sensitivity Troponin I Instructions For Use, [employer] [place], November 2017) Performed By: #### 2 868531 #### [facility] [address] [place] [address] Troponin 0 Hr.on 02-24-2022 Troponin I.cardiac [Mass/Vol] 96.00 pg/mL Abnormal 10.10-27.1 0 [facility] Comment on above: Result Comment: Crit [...] conjunction with clinical conditions of myocardial infarction. ([employer] High Sensitivity Troponin I Instructions For Use, [place], November 2017) Performed By: #### 1 1528186, 3810440, 2511255, 0718068, 99141081, 7512459, 2078893, 3444480 ####[facility] [address] [place] [address] Troponin 6 Hr.on 02-24-2022 Troponin I.cardiac [Mass/Vol] 105.10 pg/mL Abnormal 10.10-27.1 0 [facility] Comment on above: Result Comment: Crit [...] conjunction with clinical conditions of myocardial infarction. ([employer] High Sensitivity Troponin I Instructions For Use, [place], November 2017) Performed By: #### 1 3513897 #### [facility] [address] [place] [address] UA With Cult Reflexon 2021 Bilirubin Ql (U) Negative Normal Negative [facility] Comment on above: Performed By: #### 2 065768, 91734793 #### [facility] [address] [place] [address] Clarity (U) CLEAR Normal Clear [facility] Comment on above: Performed By: #### 2 041272, 97879474 #### [facility] [address] [place] [address] Color (U) YELLOW Normal Yellow [facility] Comment on above: Performed By: #### 2 193982, 78873346 #### [facility] [address] [place] [address] Epithelial cells.squamous LM.HPF (Urine sed) [#/Area] 0-2 Normal 0-2 [facility] Comment on above: Performed By: #### 2 356087, 65311741 #### [facility] [address] [place] [address] Glucose Test strip (U) [Mass/Vol] Negative Normal Negative [facility] Comment on above: Performed By: #### 2 090464, 43495412 #### [facility] [address] [place] [address] Hemoglobin Ql (U) Negative Normal Negative [facility] Comment on above: Performed By: #### 2 805746, 09373687 #### [facility] [address] [place] [address] Ketones (U) [Mass/Vol] Negative Normal Negative [facility] Comment on above: Performed By: #### 2 960187, 49697935 #### [facility] [address] [place] [address] [place].plasma/Lithiu m.RBC (Bld) [Mass ratio] 0-3 Normal 0-3 [facility] Comment on above: Performed By: #### 2 648034, 35604980 #### [facility] [address] [place] [address] Nitrite Ql (U) Negative Normal Negative [facility] Comment on above: Performed By: #### 2 499532, 52574180 #### [facility] [address] [place] [address] pH (U) 7.0 [pH] Invalid Interpretation Code 5.0-9.0 [facility] Comment on above: Performed By: #### 2 641822, 75181866 #### [facility] [address] [place] [address] Protein (U) [Mass/Vol] Negative Normal Negative [facility] Comment on above: Performed By: #### 2 425647, 66832318 #### [facility] [address] [place] [address] Specific gravity (U) [Rel density] 1.010 Invalid Interpretation Code 1.005-1.03 0 [facility] Comment on above: Performed By: #### 2 421676, 82156520 #### [facility] [address] [place] [address] Type of Urine collection method Clean Catch Normal [facility] Comment on above: Performed By: #### 2 072266, 19001586 #### [facility] [address] [place] [address] Urobilinogen Qn (U) 0.2 {Gemma'U}/dL Normal 0.0-1.0 [facility] Comment on above: Performed By: #### 2 767287, 04940554 #### [facility] [address] [place] [address] WBC Auto Ql (U) 1+ Abnormal Negative [facility] Comment on above: Performed By: #### 2 578185, 21992507 #### [facility] [address] [place] [address] WBC LM.HPF (Urine sed) [#/Area] 0-5 Normal 0-5 [facility] Comment on above: Performed By: #### 2 711211, 02467298 #### [facility] [address] [place] [address] XR Chest Single Viewon 02-24 XR Chest [...] Clement Harrell DO Transcribed by: PRESTON Technologist: JOSEPH, Jd [facility] eGFRon 02-24-2022 GFR/1.73 sq M.predicted among blacks MDRD (S/P/Bld) [Vol rate/Area] 58 mL/min/1.73 m2 Low >=59 [facility] Comment on above: Order Comment: Order added by Discern Expert. Result Comment: eGFR is race adjusted. AA=. Performed By: #### 1 2027004, 6233142, 4974972, 2502434, 94513412, 5489759, 1161731, 4766084 ####[facility] [address] [place] [address] GFR/1.73 sq M.predicted among non-blacks MDRD (S/P/Bld) [Vol rate/Area] 48 mL/min/1.73 m2 Low >=59 [facility] Comment on above: Order Comment: Order added by Discern Expert. Result Comment: Acid Washer Operator serene kidney disease could be indicated at eGFR's of less than 60 mL/min/1.73m2. Kidney failure is indicated at less than 15 mL/min/1.73m2. Performed By: #### 1 4558412, 7531931, 8051618, 2280433, 32830202, 9946234, 8451548, 0800999 ####[facility] [address] [place] [address] Consent for Anesthesiaon Consent for Anesthesia [id number]#1.00CD:127 Normal [facility] Discharge Instructionson Discharge Instructions [id number]#1.00CD:127 Normal [facility] IntraOperative Documentson 04-22-2021 IntraOperative Documents [id number]#1.00CD:127 Normal [facility] IntraOperative Documents [id number]#1.00CD:127 Normal [facility] Preoperative Documentson Preoperative Documents [id number]#1.00CD:127 Normal [facility] Preoperative Documents [id number]#1.00CD:127 Normal [facility] Consent for Treatmenton 02-04 Consent for Treatment [id number]#1.00CD:127 Normal [facility] Inpatient Patient Summaryon 02-19-2022 Inpatient Patient Summary [place] [id number] [facility] Clinical Discharge Instructions PERSON INFORMATION Name: ADINA PERRY PHYSICIANS Admitting Physician: Jay Power MD Attending Physician: Jay Power MD PCP: ADRIANA CRUZ DO Discharge Diagnosis: Comment: PATIENT EDUCATION INFORMATION Instructions: Post Op Patient Instructions - FT (CUSTOM); Laparoscopic Ventral Hernia Repair, Care After Medication Leaflets: Follow up: With: Address: When: Jay Power [address] [place], [place] [phone] Business (1) In 7 days 02/26/2022 Comments: Call for followup appointment MEDICATION LIST [employer] [address] [place], [place] [id number], [phone] acetaminophen-hydrocodone ([place] 325 mg-5 mg oral tablet) 1 Tablets [...] 25 Milligram By Mouth every day. Comment: Jd [facility] Main OR PACU I Recordon 02-04 Main OR PACU I Record PACU Phase I Docum ent Type FT Summary Primary Physician: Jay Power MD Finalized Date/Time: 02/19/22 12:21:31 Pt. Name: ADINA PERRY /Sex: 1940 Female Med Rec #: [id number] Physician: Jay Power MD Financial #: [id number] Pt. Type: A Room/Bed: Admit/Disch: 02/19/22 05:56:04 [...] 12:21 Pavithra Saeed RN 02/19/22 12:21 Normal [facility] Main OR PACU II Recordon Main OR PACU II Record PACU Phase II Document Type FT Summary Primary Physician: Jay Power MD Finalized Date/Time: 02/19/22 16:14:48 Pt. Name: STIVENJenelleADINA/Sex: 1940 Female Med Rec #: [id number] Physician: Jay Power MD Financial #: [id number] Pt. Type: A Room/Bed: Admit/Disch: 02/19/22 05:56:04 [...] Signed By: Jennie Garcia RN 02/19/22 16:14 [facility] Main OR Preoperative Recordo n 02-19-2022 Main OR Preoperative Record PreOp Document Type FT Summary Primary Physician: Jay Power MD Finalized Date/Time: 02/19/22 08:51:16 Pt. Name: ADINA PERRY/Luisa: 1940 Female Med Rec #: [id number] Physician: Jay Power MD Financial #: [id number] Pt. Type: A Room/Bed: Admit/Disch: 02/19/22 05:56:04 [...] Signed By: Olivier Loza 02/19/22 08:51 Normal [facility] Monitor Recordon 02-19-2022 Monitor Record [id number]#1.00CD:127 Normal [facility] Operative Reporton 2 Operative Report Patient: [...] block, reparations continued for the proposed operation.. Normal [facility] Comment on above: Result Comment: Elec tronically Signed By: Rk Moreno Jr., DO\.br\Date and Time Signed: 02/19/22 08:20 EST Outpatient Surgery Discharge Instructionon 02-19-2022 Outpatient Surgery Discharge Instruction [place] [id number] Patient Discharge Instructions PERSON INFORMATION Name: ADINA [...] Follow up: With: Address: When: Jay Power [address] [place] [address], [place] [address], [address] [address] [phone] Business (1) In 7 days 02/26/2022 Comments: [...] to serve you. Thank you for choosing [facility] HERE ARE THE MEDICATION CHANGES THAT OCCURRED DURING YOUR HOSPITAL STAY [employer] [address], [address] [facility] [address] [place], [place] [id number], [phone] acetaminophen-hydrocodone ([place] 325 mg-5 mg oral tablet) 1 Tablets [...] and water are not available, use hand production clerk. ? Change your dressing as told by [...] ? Do (more content not included)... Normal [facility] Patient Education - Texton 1 04-21-2021 [...] and water are not available, use hand production clerk. ? Change your dressing as told by [...] care provider approves. General instructions ? Take wvhw-zau-tnjdcrl and prescription medicines only as told by your health care provider. ? To prevent or treat constipation while you are taking prescription pain medicine, your health care provider may recommend that you: ? Take nuql-din-fptpejd or prescription medicines. ? Eat foods that [...] 03/09/2013 Document Revised: 03/05/2018 Document Reviewed: 11/12/2016 [place] Patient Education ? 2019 [place]. [facility] Progress Note-Physicianon Progress Note-Physician Patient: ADINA PERRY Age: 81 years Sex: Female : 1940 Associated Diagnoses: None Author: Rk Moreno Jr., DO Postoperative Information Post Operative Note: Post Anesthesia Care Unit. Anesthetic utilized: General. Health Status Allergies: Allergic Reactions (Selected) Moderate Percocet- Nausea. Severity Not Documented Darvocet-N 100- Vomiting. Problem list: All Problems BMI 20.0-20.9, adult / SNOMED CT 8598251071 / Confirmed Incisional hernia / SNOMED CT 535014384 / Confirmed RLQ abdominal pain / SNOMED CT 055769633 / Confirmed Ventral hernia / SNOMED CT 4736106289 / Confirmed Weight loss / SNOMED CT 986373010 / Confirmed Resolved: Anemia / SNOMED CT 023593590 Resolved: Fecal incontinence / SNOMED CT 776552088 Resolved: History of colon polyps / SNOMED CT 3801458131 Resolved: Nausea and vomiting / SNOMED CT 77637731 Resolved: Watery diarrhea / SNOMED CT 731782497 Physical Examination Vital Signs 02/19/2022 14:13 EST [...] to self (more content not included)... Normal [facility] Comment on above: Result Comment: Elec [...] mL, IV, 100 mL/hr, Routine, Start date 02/19/22 6:42:00 EST, 10 hour(s), Total volume (mL): [...] Histories Past Medical History: Resolved Watery diarrhea (489522275): Resolved. Fecal incontinence (115586710): Resolved. Nausea and vomiting (68538211): Resolved. History of colon polyps (0256739595): Resolved. Anemia (464522775): Resolved. Family History: Heart disease Father Primary malignant neoplasm of lung Sister Diabetes mellitus type 2 Father Brother Procedure history: Colonoscopy (155266871) on 01/17/2022 at 81 Years. Comments: 01/17/2022 11:03 EDT - Hernan MILLS, Jennifer biopsies, diverticulosis EGD - Esophagogastroduodenoscopy (1672417617) on 07/06/2020 at 80 Years. Comments: 01/09/2022 16:03 EDT - Rajwinder Ho Dr Colonoscopy (777574031). Comments: 01/09/2022 16:02 EDT - Rajwinder Ho 2010 Esophagogastroduodenoscopy (548355694). Comments: 01/17/2022 11:03 EDT - Hernan MILLS, Jennifer normal, gastric biopsies section (20191469). History of hysterectomy. (3841010223). CE - Cataract extraction (3237078994). Procedure on back (533892230). Arthroplasty of knee (81204771). Bladder operation (8749522626). Social History Social & Psychosocial Habits Alcohol [...] Auto 69.3 % Lymph Auto 20.0 % Taney Auto 8.7 % Eos Auto 1.0 % Basophil Auto 1.0 % Neutro Absolute 7.0 E9/L Lymph Absolute 2.0 E9/L Taney Absolute 0.9 E9/L Eos Absolute 0.1 E9/L Basophil Absolute 0.1 E9/L Glucose Lvl 94 mg/dL BUN 25 mg/dL HI Creatinine 1.2 mg/dL eGFR 43 mL/min/1.73 m2 LOW eGFR AA 53 mL/min/1.73 m2 LOW BUN/Creat Ratio 21 HI Sodium Lvl 140 mmol/L Potassium Lvl 4.7 mmol/L (more content not included)... Normal [facility] Comment on above: Result Comment: Elec tronically Signed By: Rk Moreno Jr., DO\.br\Date and Time Signed: 02/19/22 06:44 EST Coding Summary.on 02-10-2022 Coding Summary. CD:[id number] Gh0bWw +PGhlYWQ+YR0FRBAuD98hiHKvj O6RK8nFGL1WIZXSALUTCX8IJI8 jlBW8KTzvS4UjcnWs ImbnnVHzMO40LEf0TSS5nZkcSW ljsY4dmYRrT9n2UiWpEP48wU00 GSvzBQVuKeC8GeXdqkvxcWFv I3udIfTbzWKyHhj+PHRhYmxlIH uqSBRiMAscMFKpJbXbfUpdXA5q Qj0lQNMsUXSxlKqpqOThZbRh u4fyLBNtZAfdGO2nqXsjT2ZqiD S9KYAue9b1Wu56iZE+PHRkIHN0 vHclULnez603JjTjn7doEGG6 eZNwPXcoZJE8I10lf7F8JPHbUK TtUVY4iZS5yA9zdZboyxhlW2Nj gULiNtP9OHV0nFMdbQ4dqOhx hcbndO1pZar+B70CQA0EMWNTCQ 5PBfv5H6KwVysayYG+EX00LUUr MR72aTZpgVWeo3lvqTn3KiNr QSUnBTZ6uQbsCWqwt0UePEHsS0 7bzNYmy1Q0NGEmzNlguVUlHqPj nPR4vO4iDZqvfmfjl9fvihal Azgtx5wdkw24dT38G12jEVwzED MmAKN9CPQbIGRibPzbce8xjK3g Ii8+VTvuw0lnb0cetZi6VtAo RYPyggLdqNzkTKL3w9SgVl71Z5 GipShxt2GnCol4hq42cPVtd7R5 dRI6YKsjEYLhvO7fQBdvQtH2 XIGrCqIevC15wMWrTQskIn1gjV vavUkjDJ4pMQOufjxiEUWjcR0e QCGigNMfjUewPC5aKDJchhuk h137AmErOIG6VFFdsRVoP1JvgG 2aTrYyYJAgIYMyL3UupIFyEQbo H957PMnoOaK4JVJglgJvV6Wv XZVpmDpjEcA1x8E6As0Sy1Rgvs lxSTW4VWmkPPSnLcH6HoOtLeH6 L4JcGve3XNBkbCotBH3vZ1Ta WYIjcwmmkhgnmEF8XTPbYBMesV 72pHSiSEwkPs9mw7K9k351HMUc SHKkwB96Ae6muApsOQXsrBOQ iC2eillxi4nogblrTlYrGAXkRU h2ERf7KVTvjYxuKtChHUT1VsZ2 JRV6aYJpeS0cmWhgzkyumQ5t Oyc+X43tdV5pGPQ4IZH8hftfGF OxiyFaLT56FG42C0LlPlbrrOIk bGU+DNGjvxQylEgcWN9aXkYs p8syw9FsPQfkK7ZcHWZmBFlvBt y7UQJcRUR0kZN8rH5aNTSgYLro r6B1pHE9L8BhklBass5uw1ir LSQzQQwoX31naCQwx5L0FCCdeH G8ATNogSlfNjBftL21Neo+PGNv fXepd0EdRlkus5ctl3cqwGd6 KuTbQPYlgrGajHphISX6t6JjRt 42F41dXMzyDTFgTIDzRCAiCOOl dXcyvt5wmR6xYj4+PGNvbCB3 rDD7oM3mDWKiUjN3PMcuL110Ll LicJZhRoefq4mjp1vnjGm7JqXj LUYbgxKtrBhwXFF1a3YvRd28 D94vKXebLRMdGJSvLWYkEIOmbH zoih6xyP1nUw1+YY1ll0esnr34 wI50zWJ+QZXwFUD5dVceIYib NUGmoX3cOHyyMaT5UCCzYuTykT 72pWEoYCdbZf9foChyuSejXU0z PRCuvvmdx499YqGcs8exGCRb aFSzDWihITY2O83rb5U7ZKHeYA RpUZI0eZZ2fV2rfIjtfabzkXUz bZetxpLdnFqvJMqqPNmgF489 IHRvcDsnPlBhdGllbnQgTmFtZT s7V2OoPty3PSEfdBdrFB0cfIZv ATwwFp9cnCxusHmxQK1kLHCk iqybw294RzMfu2dfWDAstKSwGT qeDIA0H90qv8G0PCQvUWNiPWU8 rAJ8pG0ojFeefmfucXOtgOei dgPchFeiLTeeVFpzP194TUTkvL jqNpWvzyOqSRLqfPN3TG09YC13 bWTxn5K3jUE6Z3VqIXQqxzbs svoifCU4KHCbKLPqlP96Nx0niS eaSs3cRNQgKGR9CGZcbOViV8Wa yC6nNdZbZDScHTDyX4YwnVEe OHtmV024TPdyVpE2CTAqvzUiR3 KfVYUseZtvUxF0a3P1Xy1UL8L9 OE12YY38vMJlh8S0aEQ6Z6Ur BOOcvbuujtzyoWE7YLLnINYifJ 43Ij0nxYbnRk8vEKGmSBY9VPWn uCGeP3LftB7eLhXuFAJiTXIf B8HgxTHjHHryO066PVvgHaG5VW YkokScW2IoBYAwlXzjEpZ6p6X0 Sd4IOPf6IL74PE68lQDpx6J6 eAZ7T7ViQVNagqtowsyshWS4TA CwSZNxaY33Ql6bsOhkOv1gDSHg FKS3NGNzqTRhI8OcmC2nGjWb XDPcUORkU8FdmKLsXTlfI430RR wdCsJ5XYKywjKzW2NuVILvnVuv YhU1g2H4An3LITTqXQ71NDM7 sIN8KN54GV07W5MoStfxvSIafW U+PHRhYmxlIHdpZHRoPScxMDAl XhTueRjzXC3mKf2cUGMoPFEg nTolgOInAvWei4cbYFUgIWuzQT 1xlBkyK0DweMF9MIEmd9b3Bb71 Z23eM5GxlIM+SUSbgTY2xFJ8 uB8iUhYeAhZ4UTpqK119QaGytL OeLgsto3vod4fbbVg4GhQ6JGPr uzFzeRvrYQQ9h2YqVf97B22z IHdpZHRoPSIxNSUiIHZhbGlnbj 6qsD8aPo0+YBTffWL2cFH0vE8p WgEeFyF8WKmrN965UlAeyYDa Tirbz4lio8eajXx4QbZvNCPseg PtqTslCSU5g2LwBs62N7ShtBrg d4PfNsa7xj59mSEhm7H9pHP5 O2DpWINalphlsKWnrXzyJX3kIR KvtsnfUMIpqX7dKRWfS1h0VeZw LyD2VAlzJ1NzrbQ7TEWreMAu JYavPDS5S35vs3M5QRSbPQYwOQ Z6cQC3zQ0noPyzlrgvyHDbwVmw saRtpDkwTIowUOhuW631ZLWk eFktBMNlbG3eKVQoqQKhrEdiBX 9dQAIiwqdpMjQCQ9GFT0RcOLIW NSMUK2bCHZ18SC33yKOem4F7 xTV8M1AhSCFjuumroczzlQL5TJ FsBQGmtQ87sZQmKBofTd6lh6H6 z376FFEsJBYyuJ78Lf1vtDxc QAThwFLQgX9cdfhbv1dynokrEj QkKRXrXJe2HMg6KMFrtZenYwFy OMP0QuR6IPA1rDKhaV4riDkz vyjvrQ6fKgl+OGZhKRZkFTh2Oq wvdGQ+ENTfJKJ0kMjoNYnhYYDq vK2yITQzX6d2TqKoItD9EDde O9EbDUFuexkyTi30nW4iGmRyOb L4DKttT2NsvlH1QRZwgRVkCZfn QMA6A89nl7X0KQSrBPFdCSR0 bAV3yZ6ifSvdqquxbGDwdRtime LyqGniRDasIKezK979UFNueXkf Jsq2HOqgXZHmES27GX72gNNj n7Z4sXL2P7PvUPQrdqbkakmnuM L2MVBtPEOogW35hXKbOEgzKk7h e3W7k357LHOnVPAqqN40Il2l fMumZGRugTQYuA5kkuvor6ehbf rqZqZwPRKrCOv5WLu4CZJnyEhp DrYbTVB1HyP1DWN3dTJopE4e lSfqaeiixE5jYew+RmVtYWxlPC 39BC36bWQfx4B0aRS4Z3NqRFJh sypfuxmqbXN9OOHsWXGlhL15 bNPbZEngIg9qy1S5a621QGPmKY DmpR93Qf4egSpoQNSsvCAIkN7i wrndk5qdpyrwFgYbDXSvJSd6 EKq1HDTraMcgCzRlVVY1QbS8CJ X6fGJdnT8enHvbxvynmY1pLvl+ J9F6yHX3eMZeoHixzLJ+PC90 wg81A3JeRqgmCbk2VPGcBOY4iH W0cU8iUPTcTPtaz2E0bBD4O0Wj nkOwuq5ul3kzSCRxMYyaH37h pHFio6R6IBBtlSA4HDIryBzbHg JlvF84Qbn+BZTxhAemw4SvPtrs j9loc8wjwSl3GoVePVNlvkJr rNpaJPP1s1GwZa57N27rBFfsFI AhPTPiJLObTPIkqLamtd9lsX6j Ii8+GBXykJK7cJY2nT7gMoUt FgL8QApqX215SyUhrSIqGzugr0 esu9nioMu4PnPtXMKbkuFfqBtm DIN0g8GeWb46Y1ZjrYggn9Pi Axg4oz68uUTpm4X8oXT3O8SvJD QowgayeYBvuDegUV0oGDGwkusb HKSzjT2tQVWuS8u2SgKpBxN5 WEohM0OqjfC7UUSseISrVZHmhI REsB2hggkfb4fxjtdvSeStHGDu QKr1MRx8LPMjyJkyVgNoWTZ0 IhB4VMP0kWSjuN8mhBjgqkwsiS 9wOyc+IEn7p3sejARbMY9mqJP6 PP34MF26kZNxk1Q5dDK9V5Qe BTNaxyyttibjhNQ5EHUfDEXerL 73Tb0viWaoBn8sPGZrKZG0GIYa uOLfT2PrmC2uLhHbCLYfSCFm P6IefRPwJRegW907JKwkEbJ2TI WuqoYkE0NcFSBbkUfjCyW1e8E7 Hl4JHB77UG64DF96cXXcm2E1 wBQ6S8LqIDUeftkryvfcfKL0ZG WiQUPdmV86Jr7luWhjSo2iHEQk MBQ1MZGyzOPqM8TekP4vWxLx UCQnWIQvT1OrgXTrBJyuE133TA urJzL2NCAefwEpJ9HgJMVcbIof EuD8q2F8Iu9ZIy44OC41HW58 dFFob8W6tSM2R5HgRCIhgjnbtm kxmXB8OSQmYIBhzH95Xm0ggAwt Vb5yTCBqJUF8UIGwqFZbH8Td iZ6jBaZkHGWqFHNwD2XpjVRfZE znF101AXsmAxF2CYAtfhRdK9Qs XWHxlJiiMwM2y9Q9Qs1GRLsf npd1T1TdHksluUD+LD69HPKkCU 58jLEyrZMza3epoIs5TgJpIEFm OTB9jGoxHLhjl6ZmSNRpT20w bGFw (more content not included)... Normal [facility] Outside Recordson 02-07-2022 Outside Records [id number]#1.00CD:127 [facility] Consent for Procedure/Surger yon 02-05-2022 Consent for Procedure/Surgery [id number]#1.00CD:127 Normal [facility] Outside Recordson 02-05-2022 Outside Records [id number]#1.00CD:127 Normal [facility] Consent for Treatmenton Consent for Treatment [id number]#1.00CD:127 [facility] XR Chest 2 Viewson 2 XR Chest 2 Views Exam Date/Time: 02/04/2022 14:46 EDT Reason for Exam: PRE OP Report IMPRESSION: There are no acute cardiopulmonary changes. CLINICAL HISTORY: PRE OP COMPARISON: FINDINGS: The cardiomediastinal silhouette is unremarkable. The lungs are free of infiltrates effusions or consolidations. The bones and soft tissues are within normal limits. FINAL REPORT Dictated: 02/04/2022 5:03 pm Serg Ariaza MD, V. Signed (Electronic Signature): 02/04/2022 5:03 pm Signed by: Serg Araiza MD, V. 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 female here [...] pelvis with IV with contrast performed at [facility], which showed a fat containing ventral hernia. However, on review of the actual report of that CT scan from 11/12/2021 at [facility], CT abdomen and pelvis with contrast to rule out diverticulitis. There was nothing mentioning a hernia in the body of the report nor in the findings. [facility] did not push through the images to our PACS system. I am unable to review these myself at this time. Our office is in contact with their radiology department to rectify this mistake. After calling and speaking with our radiology department and [facility], they have put the images through and [...] or guardian consented to allow Lizz Contreras Michelle to record this visit. ANA M client resolution specialist and provider reviewed before signing. ANA [...] mononitrate, 30 mg, (more content not included)... [facility] Comment on above: Result Comment: Elec tronically Signed By: Jannet ERIC, Jay Lock\.br\Date and Time Signed: 02/03/22 11:22 EDT\.br\Electronically Co-Signed By: Radha Mcgee\.br\Date and Time Co-Signed: 02/03/22 11:04 EDT Reminderson 02-03-2022 Reminders - From: Marly Riggins MA To: Marly Riggins MA; Sent: 02/03/2022 10:11:05 EDT Show up: 02/06/2022 10:10:00 EDT Subject: CT Imaging Reminder/Recall CT done 11/12/2021 at [facility] Spoke with [facility] Imaging and they pushed through the imaging Look at PAC Received imaging per Dr. Power [facility] RAD - CT Reporton 01-31-[address] - CT Report [id number]#1.00CD:127 [facility] IntraOperative Documentson 1 IntraOperative Documents [id number]#1.00CD:127 [facility] Postoperative Documentson Postoperative Documents [id number]#1.00CD:127 [facility] Coding Summary.on 01-21-2022 Coding Summary. CD:[id number] Gh0bWw +PGhlYWQ+CK7MWCNcG24puOKtp S8HQ6iSPB7IODXVNDKOKX8ZHM2 yyCP2AZylN9KhhhNd KotocOIoVG49MMh8ZAY2wMpvVC osgM2vlXSeJ3s0IqRhDR65dB46 YKpoLWHsUtS6TgAjfulhfZQn T8hjCuDcjVHzZrn+PHRhYmxlIH lhMYJeACzdWSPgKpYkuVxoZB2y Pr1lBHUjNQVixAoopCBgGgCs k7buFSWtXKtnYS7xdCbdN8BjdB P9AQTzp8j8Xq44cET+PHRkIHN0 jMymBVtnl771ZuZip8ilXZM3 kMVoHWslUVY3Y03ol9U6JKWmML ZrFLV1rID7wN3rzJammxhcY6El cORkGkN1GZS5qENhlC1bjFua kzuwrH6eXfw+X42KYE3RFNPRSU 9VSxu6X3UsXwycpCJ+HS22GXZp QX74tQQzwKSjv4ekoIu6BzTk CKIfENY0oCqcAKszf8AhUAGsS7 2tzCFoi0Z6HJMxyQlaqLElGuPd cFC7zL3bZDyupbfyp4pymsoo Wznoz8vksz88qM38T25gZHtjSN BeJME5BODjRPYqhEwhjb8yiE9m Ii8+OOgfr5bto7rzfFs6PqZq KDPyngEwrWpfQSI8i6DtZk76P5 WmkTgke7DsKpm4bd91yCDmn7C7 yRQ1YPiwWGArkR7bBTkyOuH4 UNIjYfLrdL52qJTjVOcrNl4fuV okhQcqMJ5iKHSjpeluERUwpB7u NDPvlDDdeEqeAF2nTHHgdosn o647KyIjWFW5QESaoQIfY4FsdZ 6hHoPaHNYuLVYlT1KpzEUcMJxs L853HKppPoY4DPDnnfRvU1Ps NQAjxXxsXrN7d5D0Sk2Lf8Doti joPRL2PBdtWDWrIjE1NeKpHkI0 C8ZlXpj4ITXfgArrLH1lJ6Cv LRCuzxorifjgyPQ8DZPcBPRivA 08dVFkTYraDl0gu5B8d802OUEz AAZyzB24Uz0rpZqbKFCkiBWE xD2sepwxm8vizafwSmMqQNBnVC o6WZh0RFUmaJmqLwKeEHA6IxK5 JGD2yBWsuN8rzStwqfgekA3g Oyc+R14muE1kMGO3EUN8lbuzFT QyyrRtVN12ME25U5ElEmzvpFNn bGU+CQUjplAqkHykFW2fJyIz a7bdc4KuWYsjD3TaXUPpNGvhOb p1WSHfIOV5aDY9dL1sEZDgMRqc t0Q6aWW9U2VmntVzri7zy5jr BOZtBNmoD94tbDCxg0B3FNBbgW Y7HKGxqYqmIdFfmN81Mhq+PGNv iRhzs9OqQedra5prc7rchGd2 LeSnCKJpntUgaJgbOBS2p2SkOx 22E69yKPgyPDIiNVTfTJJcXLBl tBagus3veJ9iRa2+PGNvbCB3 cDR6eW4mNTMsSqH9GQeyQ177Gv ZjtDIlQncwt7ayg7iefUq3RwBn CGUrdqNmhDdpZYH4e4VdQh08 A07iMNfpGKUzWCOnDXHbRONwdS eibq8hkF9zNf2+YS5dw4xymv11 pJ71oNR+AIErJKE2uYcuSVqi SUXvhZ6pKWgwHvD7FDRrFoHdiC 37dVCrRPgnOl8whHcxxJhoQY9z SBCqgbcfc136AgXni1mwGCHn dEFkVRoaLPB4R85ys7O6QLOjFI CdFHJ3bBM2gF8daFxdzlotmQZy xMypqpRjsGdzRGqaXCdeR055 IHRvcDsnPlBhdGllbnQgTmFtZT a2M0ApWnv9EIAxoYfeQG0grDTw MEvqKv6cqOwnsXumMT0eXSBq ftnvt388BhHwr3tuMKQtgCQlLB xpRTT8L22vr0O3COFwUALhDPO1 dAN4fD5eeNsixowdkVFskTzf inFquTclSYvoRKpdM436VJJyrY olPsTdauQuNSCrnHM9UW27AA69 lUIwp1Z5xED4C9PvKNKxbezv exdsgLZ2FFUaGHMgcN20Tq3geG hbXa8kHWRvBBF0AIUcaXHfW1Uh aA8tJoSjSDDvFOTgQ3AynCNn OGtoG586TGzxQiK0BRVwmlNhB2 EtAMFfwXteFvQ4k5R7Sx8FR3M4 GT78YT31oAGja4T4hJW6K5Zu KXNndmlwjvyizLR8CPZwMDPjpN 75Um7yzBxhQp1sDMRuODA8BDIu fHQwU0VkxQ0cXpDeXWFhEIYn D7CjmEUwSYgcY552VBufJmX4YS PtzuSaK3BtGTSxuQvlLqO6j2B6 Il0MUBh5LK22KT83fAUti5I2 qWN7X3AdSQSmzjvknjuztSW2FL RpHSKlnF19Ir2ddFddGh1sAIZc ZAL7XPUzmEXsH4BcbA0hGxDc KQRzODDyA5TrrPIzWGnxF903FI mcVeC4ZUJwcjIsV3SaBPGesYln MsY7y5N3Lr4FPFRhLE67KWJ6 qAF7RW33XY61D7WeMjombXVwaN U+PHRhYmxlIHdpZHRoPScxMDAl SeMqoVvgZR4lYg4lKNPoZUXm pNmowQAjJxSjq7oyBMGkYMjjOL 0ajCyaS4YodWS9QOJqq3s3Ap55 W22jU4VxePO+HCLmyIK0yMX8 eF4ySmNyExZ9KMrfN944RaQkdU EbJllge1kzw9ggqAh4OgY6GUKl gjOchKjhNJH2j0XuQb28D42l IHdpZHRoPSIxNSUiIHZhbGlnbj 9wkM6cTy8+NJXqcFC1fNW4nY9j TuPoLlV6VBttA742LpAuzJQz Gkuaw7xba0mszAq6KjWyMMMirh EodIqwMLE1r3ZbCi33W9ExqRmw a1BwDre2ql71fXOsi7S8xWA8 I8JnXTQjtcgavFRlbGmmXW5lYG ZansxaNFXcrE9kELFzK7c4IhZk EiN5OSqzJ3MiatO4SYAjaHPd KOniGWW9K87qv1I4LEUmUZYjSF T0tDG9jG0hbFbleshbwZXedAte gvVglQqbSYsmGZovM202OPAu eKycBJRljM3rFRQhlJIciWvdOQ 3mOHFmzgfmMtSOG7AUL6PrLOHZ EVXLG5eQXI64OZ15aYFfw4O7 xET0X5NoCQCqswtzsudwgJV6TZ NjUMItnS73dJLsVAwiOq4yq4Y2 g262LEXhITOvlQ63Zh8jsWtz JQTazRFLjN1syxfpw3cevgrwAh LhMCIwDDa4JWj2GSCfhCtgRdGi VQI5EtW4ZIJ4lQIusJ3jdZgw xlrvtI8lFkp+RXRrFJFsHOk7Fc wvdGQ+YZOmDLM9nZweJFufALHl fS2vNGPwQ6w1DgZrCrB1AUno X2AqFOQbqmhxUo06hG7vRfVaXk Y6ALwqQ9DpppL0VDMvtEBvFHde TNZ4Y70wa3E7UAOpBGMuRQD9 xAR4wQ5cuPmuyasmgZPaqDvlug WxqPcqFAgyGJgyE606VSIlpIvh Wbf8NUajNGTcXB10PS23iXVa n1R9qXA9K8XlVPWmlngpypntcG E5WRHgYMMqhW45zNNvLAsgQh6r d1E8x102WRHkNILljR23Tm5k xUfaKYWfbPBLhE4lqnzpj3lcwz fmArOjVQBaHWz4WBh2RLBjfYpa QjIhNSF5CuO6ZED6bJAcuA7g dHydqdhxcR0gOwf+RmVtYWxlPC 76CQ08zSZgb2G2aLR0O9CeAPHr qshofhqeiTO1TEQyVYWdxJ23 eQTlKRpxRj9nv8O4h266RXThBC LqnS42Si8fuPceVUZdrNMMkH8e gatsu6eravjnQyZjNQWgEAr1 WKx4IMEudCmiGiLjZDR9QiC1FM K8zVMdzS6kzRoatdshzY2tLhp+ S5V4aCL6eACazQgxlMH+PC90 rm68O3WlPgcvFan2GBNkEKP1iM U0eO9bCDEdLWgsg0T7fLN2Y9Zo rgHvyo3rg9yeJFMvXLxwW11b dZIht7K5LPFxaUQ0FXBjdMtwMr XpeR46Ani+UIVdfLvva3DqCeob y6naj0xenCe0AgRxRKDamdKi mDajCUF5a4RmKz75B40eYKkbFR RwECViASDoPEGkcJpexr4stY1d Ii8+YVLxdWQ3uJT0sX7iIsBf TsP6OXtaC287BtFldMSvLnliy2 oyf7tqaOe8ZdSgEIMngiEgzEtp CPW9u9KpIj79R8CqlYoon5Fq Bed1jy34jJRzn9R7sPZ3B9IxSN FqwdeqrQFnmJdzWQ2iVCXblkcg AZBgzN5bMHOrT3c1YjKuPbR1 LTstN9IkgkC3SUCutETcRIOamZ KNfN2nghspr1ytvbmqOzSfTMWz KGd1UDm0OENryUctSlIzIJB0 BoU4KBF1mPVqhF1gsTthmmshrN 9wOyc+RBm4m3womTQhRH0rsXI6 AV16DL48iEGhz0N9lNC6D1Gg ZTXyzuiwzxtqkSW6RZIjASTgvW 54Hi2foXofCh2gDMRxNLI0PUCa sXVtW3GhpO0iCzLaJJUvLMZb K7HmxXXmPQzpL464LHpjDsJ6RD ZeeyVgH8ZyFIGluTowEwP4m4A2 Aq7UBH65XN00ZZ63qVZxu8W7 zDY5E4EgPGXezsppvtogjWE9RW XkDPNrdZ18Bh4rkEdkRe0yERDx MBV4WWJbsXWgJ0KoaV2uLcKu KSPnOTFkM4MwnTNtPExcU566JV piKsJ1IFKqfgUlH3PhPZUgmRiw FeI8c6A0Rx8FSq66GZ15ER42 cMKzk1Z4gWH2E3UkYCXxbhbnxw ahjWQ7DTUmYOThmI98Re5wgAac Eq7cSSChEVX3SKWtlOFwK1Sj sR8wYuLrSBCjIGKiM3WezLNoCG hiL008TIqjJvI9PTGxkpGoL3To ZDLmjJplDmB3y5Q5Hg7WZKfq wtn1K7NoOpokmIJ+NV92NUHcER 59xBDkdYEbh5epoGy8UkCuUAGh QIH4dSypNWtwz3PzSODmF20m bGFw (more content not included)... [facility] Giardia, Direct, EIAon 01-21 G. lamblia Ag IA Ql (Stl) Negative Invalid Interpretation Code Negative [facility] Comment on above: Result Comment: Perf ormed at: [facility] [address] [id number] PhD Yolanda Jiang Performed By: #### 1 [id number] ####[facility] [address] [place] [address] Main OR Intraoperative Recor don 01-21-2022 Main OR Intraoperative Record IntraOp Document Type FT Summary Primary Physician: Jeferson COPE MD Finalized Date/Time: 01/21/22 11:55:08 Pt. Name: YOSELYNNIKKIJenelleADINA D.O.B./Sex: 1940 Female Med Rec #: [id number] Physician: Jeferson COPE MD Financial #: [id number] Pt. Type: O Room/Bed: / Admit/Disch: 01/17/22 [...] Craig RN, Michelle Fuentes Role Performed Anesthesiologist Offset Printer - Primary Staff - Other Tube Fitter Time In 01/17/22 09:27:00 01/17/22 09:27:00 01/17/22 09:27:00 Time Out 01/17/22 09:55:00 01/17/22 09:55:00 01/17/22 09:55:00 Procedure EGD AND COLONOSCOPY(.) EGD AND COLONOSCOPY(.) EGD AND COLONOSCOPY(.) Comments Dr. Pennington is supervising Last Modified By: Daniel MILLS, Riddhi Sanchez RN, Riddhi Sanchez RN, Riddhi Maravilla 01/17/22 09:55:43 01/17/22 09:55:43 01/17/22 09:55:43 Entry 4 Entry 5 Entry 6 Case Attendee Elana Sethi BED PLACEMENT COORDINATOR, Jasmine COPE MD, Jeferson Alford Role Performed Staff - Other Scrub - Primary Surgeon - Primary Time In 01/17/22 09:27:00 01/17/22 09:27:00 01/17/22 09:27:00 Time Out 01/17/22 09:55:00 01/17/22 09:55:00 01/17/22 09:55:00 Procedure EGD AND COLONOSCOPY(.) EGD AND COLONOSCOPY(.) EGD AND COLONOSCOPY(.) Comments Last Modified By: Riddhi Sanchez RN, RN, Kristin N Sherman RN, Kristin N 01/17/22 09:55:43 01/17/22 09:55:43 01/17/22 09:55:43 Perioperative [...] (If Applicable) PreOp Antibiotic No Time Out Emil HARTMAN, Shelly M, Given Participants Riddhi Sanchez RN, Michelle Ray, Elana Sethi Schafer CST, ANATOLIY Delacruz MD, Maher Time Out Complete [...] colon biopsies. Primary Procedure Yes Primary Surgeon Jeferosn COPE MD Start 01/17/22 09:31:00 Stop 01/17/22 [...] and tissue Entry 1 Skin Integrity Intact, [place], Warm, and Outcomes Met? Yes Dry Last Modified By: Riddhi Sanchez RN 01/17/22 07:29:31 Post-Care Text: The patient is free from signs and symptoms of injury caused b (more content not included)... [facility] O & P EXAM, ROUTINE, REFLEXo n 01-21-2022 Ova and parasites identified Concentration Nom (Stl) Comment Invalid Interpretation Code [facility] Comment on above: Result Comment: No o va, cysts, or parasites seen. One negative specimen does not rule out the possibility of a parasitic infection. Performed at: [address] [id number] PhD Yolanda Jiang Performed By: #### 1 [id number] ####[facility] [address] [place] [address] O & P Exam, Routineon 2021 Ova and parasites identified LM Nom (Unsp spec) Final report Invalid Interpretation Code [facility] Comment on above: Result Comment: Thes e results were obtained using wet preparation(s) and trichrome stained smear. This test does not include testing for Cryptosporidium parvum, Cyclospora, or Microsporidia. Performed at: [address] [id number] PhD Yolanda Jiang Performed By: #### 1 [id number] ####[facility] [address] [address] Consenton 01-20-2022 Consent [id number]#1.00CD:127 Normal [facility] Discharge Instructionson Discharge Instructions [id number]#1.00CD:127 Normal [facility] IntraOperative Documentson 1 IntraOperative Documents [id number]#1.00CD:127 Normal [facility] Coding Summary.on 01-19-2022 Coding Summary. CD:[id number] Gh0bWw +PGhlYWQ+NJ2PFZRqS25wiXGsm V4WJ2hUTH5FMITULWBULG0ODF4 rqFH4OWhxC6MsbbQe QujcyKDaNE66EXk9UGS0cJsdWY uexC2saOErA2c6OdTrVD30bZ53 DCkrACXyUtZ3UuSjugecjABj O1fzHiByiVZaQuz+PHRhYmxlIH lrFYSzBDbuFFXgHwPycLneBC6t Hu7bPYHoSPBcdEfvrMXyYhLl n4mgYBOlXZiaQL0cdCkyI9UieE C2YNJva8f7Qn67wAS+PHRkIHN0 bXtcOFabt264OgQbn2jmBYG8 xQOcYPijWSE8L79ut7F2CRLgZG MqBJA0dRS9zE2uyArezuyyC1Hw cERqWhD8CMB6cFXumB2fnUec cmxyqC5cPqh+E23EFG1PDTDGZH 8GQtk9E5XqHiqyeHI+HW39HZDc UU32sUUcnYMct6zqhDr2SzIa FEJjLBU8iMkhBSeib3IuENFmE9 4adLVzs8I8KCAztJybaNLhVeMd zCT6yZ7qAJukscwul2vxlxri Eqged1batw50zY36Z45dUXbyUZ KjHGM0YVHyHMFaqDahqc5poG1h Ii8+LIctq1lyh5zroYj3LwZm UXRougYcyJtmQOH3h5FoLh27O7 UwlLyhj4IbNcp5qj84oDMzp0V8 eVE5RGnpADDrkU4aAUbrIyP0 RZUkToFlaH89tKZzUMvnFo2goE icsPcpJD2mIBTorpwpCRYdbN9t RBUvuRJvxXtaFH2nVERvytoi r622FxHrZBE4LKLjpQRzH0BxxH 6lBqZxPIToCIIsZ1TjoWNlOTnr L040WPguLgC6FBJyrkLwE3Cy HCGjmKorJrK2i5P6Ql9Wu7Hdhl mhKST5TBpeWHUmMhX4DxGcAyZ2 S4VxBdy1DLMmiYjePZ5mL4Qf UKIjfqqewbzwsVS8ATZuOUEvrE 35dWVkIWllCh4yu2W6o154YNNd AUNgqX83Jb3gmAydVKUkpVDN bY2gbrztk7dmwfrkLeOlNYQpIZ b8XSs9CUIxeDpxUjNhUVG6HqY6 HVG9bVZbbN7nmJqdldrsgQ3r Oyc+U35wuX7hQDF5YKL2rubdUP UxfaWeQV56PF76N1TwSdcgkSUm bGU+ZRDixzOxhJshHM6mZvWr q0pst4UmFQqcY5KyQSPnYRmrRe l8KGDlDOB5vSM5yB7gMIMcIAbj m6M3eAF2C4QpcwWzcf2ko3qw LBVfMBchU85saOBcd9M8SXPveS L7IDDpfPauBdYgfR45Lsu+PGNv vMtpc5YpUmwnq3hqp4fulVf8 QiUhYBUydkXsuZggBDW0k1XrOh 22J90cQQbfJQRdEHFbZADzYWQi hXzgxz8vfG1yIa9+PGNvbCB3 jZH0jD2bOWIeLdJ9ACkkW493If XmwNQpJmejc4gmw6ivnDu5PnSg PPAvzxOqyXpbAAJ5e1GpFg78 Z40uEQsgIPFxGYJbFOGjOPRktD bvgg9azM6pNe7+GR6eg3csrf27 wU10lES+QCTjBZH6lBbcPDdm ORExkW2lQAioInB2JIOeQaOriT 98oQQpIPuzNn7urJwdlQsfWR3b VIQlzrimz931OlDsh4ecVLVy iXAzCAvxBSC2K15fb5H3GPVkUJ XzVSV5iHS7bI3dkWrfzgpbrMCd wQsxppKfqDanCAzbXGkxV714 IHRvcDsnPlBhdGllbnQgTmFtZT v8L3EaOjy2NYCjiUvmBN9zbCSk GZnhGn3ryFcvxFtnAX5nYHEl jmijm741OxHxs3nkJHQihZCtSU ukROX1L35zw5R3GXLcHMZsMRA5 iMW1yY0arQacoomlrVZgqIhq dmMfnBokVUukHGrvS529SCWwlT ctGlYascKrXZHvhND1LT68HD01 lLHsm3X0xCS7J6IwCXHbowmp iyocqIX0TBCpJXHoyY70Ll3whL rgSd7eHCYmJYF1HFXytPUdU8Gz xL1nCtGxKNBeZDHkB1KtoRTi GCgcO063HTctJlD9OUIvfgNeE0 JtNIAelIhyTlU3p1T7Yy9DS5S1 VI37GC96tDFoh4U1gVD3L8Tm BYWqmtolaahkkJP0SLHeNPBxlN 88Og8ihEvoAz6tKGGgQRJ7CSFv sVOzP0UadL1jTpRrGRUqOQIa E1OakFYbOEwpA987KHtpGeD5ZB ZvytMsX5RsQVIbnOkpFpN9n9D8 Zx4YOSj4BG08GT30yCVkw6D8 fJR1A0RyRCBjchwzcuoagIM7QL VkUUYnfT08Ym6wdZciNu2iYPLk BNT7HJMjzVXpW8EjqC1yFpSl IAUgAAXqX9GpqDWlRMecZ120QP ojAiN4DWBhjiFgE2CoISCtbMwk EpN7o7K5Bh7DFOQkFA66JCJ8 oNC3SM51FE07O5QqOdkzuUIjkP U+PHRhYmxlIHdpZHRoPScxMDAl UnVuxMhpHR8uXq3dSLHlHTDf uJnhkIMrRcBpn0grIKCfNWrhEF 8oaXdnL2DecMD2QWVoh8n2Ts88 J06yI4MnsSE+IOEtxUU3hDE2 dG7xIpNmHpJ3HBqdL118KwOzwO TmHthbg4jmj4gsxHe6NjM9BKGh tfRdaLjsBZJ8l0XxSa60K76w IHdpZHRoPSIxNSUiIHZhbGlnbj 9hqL4nDc5+XAAsyMC1qMF3iB9w XgLsGvB1ZBheZ596HyIxvMPi Pbowu8wdr9fbtGd6PqXmMGOgum KnvLqkLHN0y7UiGg57H8GmvCkl p6AnPgn1jh03yUCpm6E2bON8 X3SyUNRfjydegSHhvWrjNC3lPT EfiklzOSHnmQ9sPVYyA3z6MaHg LdX5UKjjI3KnxdB4OMNyjOJv EUcePFQ0D77gm2O4WVDnDPZsCB Q8lMP1cI3bfVqopazzqEJlnXcn oqMsgIbjGDiqPXtaQ840AZYr tDsmFUCwbE6oNCXogVNzsEqdCP 0yNCPtoudsDvPWS1RHL7GnLKGB EEKXK6rXID74RB26mBOvc6Z9 xTS6Y5RrRGUrrwpeuvdlrDP7LN XrJQOlyI30yQNhEWzdPw1ix9S9 y743YNYnXKYrmC21Rl4yiEqg EUSmsMWLfB1qitrfu9rlbappBk QcFGOkLCv6MDx1RPWggMtaStAp NHG3ChS4TRR0pDMhgA5hmUeg qbebjU7xTjz+YRWqIUBrEDr3Wp wvdGQ+KVZjKVD3qZxyPWouHEHl fT2cMQDwL9v2QcKuKyJ3JYpb I9BkQRZkjmalIq24wK5hLrQsPu F2VRuaZ3DfvkD4TXJjcEVnNDps VTK1M23jc0Q8QDCxFSVfRZH6 jZF8eP9qyJykybenzPLdmDodng FxgVfoORzmUJvcG404KTXlmYwm Xkh0FSlzDPFgBG65SB93xVMw i1B3bTK6V9WrAOEzoqpgkiufuL S6DSOtUJMxrJ76vVXtRVseLr5r e3L8e562GHOtLZPfkL91Rz9v eOmuIWNxkSYUdP2nmveqj1nxrl tbNhEiEADnOLi7BOi7EVZosZtl PhOePUU4GcZ4LLX2kRDsyE1l vNpagokqmF0uObo+RmVtYWxlPC 66XF71mMLhf4M4qDV5W5ZlHCZh zuzpvmgclBZ2THUaJNGtzE33 wEQkBShcRd9gt3E3k276KKYcOT SfdH50Gu2nbWpnEVQchTRPiY2k sokpl8bnsiayLiBaZLBsPUb4 OTc5MZXfjMlpQrJyYUO2WhH5RE S0tMRqzL0dcDdmpluynU3oWgd+ YJVuDSQii2Mxd7ZrKI35IY24 V9CfZribePUimWG+PHRhYmxlIH coPTRzCDvkVRHuRpVjtGezFA6j Ml0rHWCkMPJnbOtkuTGmUyCx m4tcRNWqCLfjKY8zfWdkX6VesL X9PWPyq9u3Qn57Z55yP8JgcED+ IHNwjFJ8kCO0bG9fGyNhBpI7 YTfbB520TtCcjOSnQtuiv9dec4 gwmAm1OvZkEHCcbaAbuZybXWD3 q3RmFa97Z17hMQysDORxVJUu PLAaAGMvuSnquw3ncJ3oDx6+PG ZmnFX4jME0fI5fLgRvPwD6CJli A324TyRcyGYkNhatT17nK3Qu dXA+AJEqEjx3YZWuhTqjMH7bhX WvQGlgHt0vODY4XnEsPgTaRPol V4IrQHRrafhugvtndEW5RMWe DWScdF92Tj1rpBzrNd6qPBNoNE Z0GPWziCDzV4DxwG8oOtRxXLZv PGTuP7FvwSNxKSruW761GCxe IcY6WZRejpXkB4SjSYDmnEemAz Y5l1U3Iu9ZsWtugJMxWO9zWqJq MWr0Y1VvDqb9GEKkhDtyYF5k hUIrDSrsRs6jpPzroAkeAE4yQB Bywezap405YvBpy9ijNXMrbOCf HEvwUIS0T77qp7Y8VTAtFZPh XRJ8tUQ5rE8sxIvjxntsoFAwiT kocqGotJeiDPldTOfiI251IINv cNkdIdJCLng0R9RgWqo4ORRa yLllOQ0ucLLwKYasQr5jjJiwbA ndNI3mBKSwkwish046ZiEgg5po CSKwzIPmAAgpUBF0U48sj7X7 WFGpDABbLEL1dFE0aS7hjZgqyl ogbGVmdDsgdmVydGljYWwtYWxp Y383OLEjaXhiFk3ZAah2R8Bj Dbf7FUWcnMyhEJ2ffWUxBJqsGg 8pjJlmfLfoAJ3lPEVcblvlk888 EaBav4htGNCpaXYdJXtvFHK0 O80ah4Z6DOWoLRCiSEG2tZY6sT 1hbGlnbjogbGVmdDsgdmVydGlj AYzyQPytU400TOPthZnzVvHm eWVyOjwvdGQ+MB91bn58E4FmUo vkTom7FMJgXAM3mUH9yK9uSPHd WVqtq2D4zNE0E4CgnaHyix1g b2xs (more content not included)... Normal [facility] Consent for Treatmenton 01-04 Consent for Treatment [id number]:127 Normal [facility] Endoscopic Procedure Report - Otheron 01-17-2022 [...] Normal duodenum Images Procedure images: Rec1_hd_video_2021__14T0 8_32_50_724.jpg Rec1_hd_video_2021_10_14T0 8_32_55_551.jpg Rec1_hd_video_2021_10_14T0 8_33_03_462.jpg Rec1_hd_video_2021_10_14T0 8_33_09_938.jpg Rec1_hd_video_2021_10_14T0 8_33_18_428.jpg Rec1_hd_video_2021_10_14T0 8_33_35_407.jpg Rec1_hd_video_2021_10_14T0 8_34_25_483.jpg . Post-Procedure Complications: none. Estimated blood loss: none. Specimens: sent to pathology. Devices/ implants: none left in place. Impression and Plan Sessile polyp, 7 mm, in the gastric body, greater curvature, removed completely with cold snare Recommendations: Follow-up in GI clinic in 2 weeks [facility] Comment on above: Result Comment: Elec tronically Signed By: ANATOLIY EIRC, Jeferson\.br\Date and Time Signed: 01/17/22 09:56 EDT Other Comment: Quyen viiera Attachment - attachment storage system not supported [id number] Can be viewed in source systemMissing Attachment - attachment storage system not supported [id number] Can be viewed in source systemMissing Attachment - attachment storage system not supported [id number] Can be viewed in source systemMissing Attachment - attachment storage system not supported [id number] Can be viewed in source systemMissing Attachment - attachment storage system not supported [id number] Can be viewed in source systemMissing Attachment - attachment storage system not supported [id number] Can be viewed in source systemMissing Attachment - attachment storage system not supported [id number] Can be viewed in source system Endoscopic [...] GI clinic follow-up in 2 weeks [facility] Comment on above: Result Comment: in e rror Electronically Signed By: Jfeerson COPE MD\.br\Date and Time Signed: 01/17/22 09:53 [...] internal hemorrhoids Images Procedure images: Rec_hd_video__0 8_49_26_194.jpg Rec_hd_video_ 8_47_06_773.jpg Rec1_hd_video_0 8_46_38_746.jpg . Post-Procedure Complications: none. Estimated blood [...] Return to activities:: After 24 hours. Normal [facility] Comment on above: Result Comment: Elec tronically Signed By: ANATOLIY ERIC, Jeferson\.br\Date and Time Signed: 01/17/22 09:55 EDT Other Comment: Quyen vieira Attachment - attachment storage system not supported [id number] Can be viewed in source systemMissing Attachment - attachment storage system not supported [id number] Can be viewed in source systemMissing Attachment - attachment storage system not supported [id number] Can be viewed in source system Inpatient Patient Summaryon 01-17-2022 Inpatient Patient Summary [address] [address] [facility] Clinical Discharge Instructions PERSON INFORMATION Name: ADINA PERRY PHYSICIANS Admitting Physician: Jeferson COPE MD Attending Physician: Jeferson COPE MD PCP: ADRIANA CRUZ DO Discharge Diagnosis: Anemia Comment: PATIENT EDUCATION INFORMATION Instructions: Upper Endoscopy, Adult, Care After; Colonoscopy, Care After Surgery Anatoliy (CUSTOM); Diverticulosis MAGR (CUSTOM) Medication Leaflets: Follow up: With: Address: When: Jeferson COPE [address] [place] [address]. [address] [place], [place] [phone] Business (1) Comments: office will call for follow up Type Location Start [address] 02/03/2022 10:20 AM 02/03/2022 10:40 AM [...] (Vitamin D3) sertraline spironolactone Comment: Normal [facility] Main OR PACU I Recordon 01-04 Main OR PACU I Record PACU Phase I Docum ent Type FT Summary Primary Physician: Jeferson COPE MD Finalized Date/Time: 01/17/22 10:57:57 Pt. Name: ADINA PERRY Umberto/Sex: 1940 Female Med Rec #: [id number] Physician: Jeferson COPE MD Financial #: [id number] Pt. Type: O Room/Bed: / Admit/Disch: 01/17/22 [...] By: Jennifer Becerra RN 01/17/22 10:57 Normal [facility] Main OR Preoperative Recordo n 01-17-2022 Main OR Preoperative Record Holding Area Document Type FT Summary Primary Physician: Jeferson COPE MD Finalized Date/Time: 01/17/22 07:57:32 Pt. Name: ADINA PERRY /Sex: 1940 Female Med Rec #: [id number] Physician: Jeferson COPE MD Financial #: [id number] Pt. Type: O Room/Bed: / Admit/Disch: 01/17/22 [...] By: Regino Beckett RN 01/17/22 07:57 [facility] Monitor Recordon 01-17-2022 Monitor Record [id number]:127 Normal [facility] Monitor Record [id number]:127 [facility] Outpatient Surgery Discharge Instructionon 01-17-2022 Outpatient Surgery Discharge Instruction [address] [address] Patient Discharge Instructions PERSON INFORMATION Name: ADINA [...] Date Follow up: With: Address: When: Jeferson COPE [address] [place], [place] [address]. [address] [place] [phone] Business (1) Comments: office will call for follow up Type Location Start Finish [facility] [address] [facility] [place] 02/03/2022 10:20 AM 02/03/2022 10:40 AM Confirmed Pharmacy Information: Destin Pulliam You may receive a survey from [employer] asking you to rate your care experience. Your feedback is important and will help us understand what we do well and how we can improve the quality of care we provide to you, your loved ones and our community. It?s an honor to serve you. Thank you for choosing [facility] HERE ARE THE MEDICATION CHANGES THAT OCCURRED [...] activities are safe for you. ? Take xwzv-hek-mfvmqcx and prescription medicines only as told by [...] 09/21/2012 Document Revised: 09/14/2018 Document Reviewed: 08/23/2018 [place] Patient Education ? 2020 [place]. Colonoscopy Care After Surgery Please read the ins (more content not included)... Normal [facility] Patient Education - [place] 1 Patient [...] unsweetened, w/added ascorbic acid 1 cup 0.5 [place] 1 cup 0.7 Vegetables Cooked Green beans 1 cup 4.0 Carrots 1/2 cup sliced 2.3 Peas 1 cup 8.8 Potato (baked, with skin) 1 medium potato 3.8 Raw [place] (with peel) 1 cucumber 1.5 Lettuce 1 [...] Peanuts 1/2 cup 7.9 Chart from UpToDate 2012. SEEK IMMEDIATE MEDIC (more content not included)... Normal [facility] Progress Note-Physicianon Progress Note-Physician Patient: ADINA [...] PACU when criteria met. Condition good. Normal [facility] Comment on above: Result Comment: Elec [...] list: All Problems Anemia / SNOMED CT 160183867 / Confirmed Watery diarrhea / SNOMED CT 893876390 / Confirmed History of colon polyps / SNOMED CT 2460296286 / Confirmed Fecal incontinence / SNOMED CT 423566541 / Confirmed Nausea and vomiting / SNOMED CT 21389245 / Confirmed RLQ abdominal pain / SNOMED CT 345407032 / Confirmed Weight loss / SNOMED CT 325659100 / Confirmed, Active Problems (7) Anemia Fecal incontinence History of colon polyps Nausea and vomiting RLQ abdominal pain Watery diarrhea Weight loss Histories Past Medical History: No active or resolved past medical history items have been selected or recorded. Family History: Heart disease Father Primary malignant neoplasm of lung Sister Diabetes mellitus type 2 Father Brother Procedure history: EGD - Esophagogastroduodenoscopy ([id number]) on 07/06/2020 at 80 Years. Comments: 01/09/2022 16:03 EDT - Rajwinder Ho Dr Colonoscopy ([id number]). Comments: 01/09/2022 16:02 EDT - Rajwinder Ho [facility] [place] Social History Social & Psychosocial Habits Tobacco [...] (JAN 17 07:50) SpO2 97 % (JAN 17:50) Weight 102.26 kg (JAN 17 07:50) BMI 45.45 (JAN 17 07:50) Measurements from flowsheet : Measurements 01/17/2022 7:50 EDT Height/Length Measured 150 cm Height/Length Dosing 150.0 cm Weight Dosing 102.3 kg BSA Measured 2.06 m2 Body Mass Index Measured 45.45 kg/m2 Weight Measured 102.26 kg Airway: Normal oral/pharyngeal anatomy.. Respiratory: Adequate air exchange.. Cardiovascular: Adequate perfusion and function. Neurologic: Alert. Review / Management Results review: No qualifying data available . Plan [place] [employer] (ASA) physical status classification: Class II. Anesthetic Preoperative Plan Anesthesia: Monitored anesthesia care and general anesthesia possible. Anesthetic plan, risks, benefits, and alternatives discussed with the patient and/or family. Pt. and/or family present and agree to proceed as planned.. Risks discussed including heart, lung, nerve damage. Risks of bleeding, dental injury, hospitalization, and general injury discussed. . Normal [facility] Comment on above: Result Comment: Elec tronically Signed By: Eliecer Pennington DO\.br\Date and Time Signed: 01/17/22 08:36 EDT Coding Summary.on 01-16-2022 Coding Summary. CD:[id number] Gh0bWw +PGhlYWQ+JH3TQOWvE34maTFix G8SD6jSXU2SHEIUXCDXPB4ZBD3 qkUW2LOlgU0CudrQy LvwdvXMuYT00TUl9FKN8jLifMF suqZ0gcNCiG9n0FnIoGZ80pG56 QWcjXCIuWoV9TqKkdqayqXSi I4poKeVytXAnCxs+PHRhYmxlIH smDFQsFVqzMAOkUuZkmEgcFE1o Ng0uCYTyZZNumTuxaGYgRqYy o9plUZOxLKptIQ2dhKzcV7CohS G7UZStt8h5Jj17uJU+PHRkIHN0 vYdeMUpjq587DcFkd4rzBHH3 rGAeTCsnBDZ6T44tu8V5LNSmOG ZsMNX9aBN6uU6qrDjpzdzpU5Mp fBFhLxZ7VBZ2pCPkwY1dcTao yxcddW3aSkr+R18CTG2AOEVLAR 9SPie7J5UsTrhhsUX+SI61SVMb TU90iJSvnBXhk6ktlIv7EbEd VCDhKTR3hVxlUEywy1OrDFCfM6 4xvVBvt2L6OMWmsBnpjJBtEyYb yRT9bK1sPVabueppa0guckxn Pbylk4cpml46gJ39A04fKDnjSE EeWCZ9EUJlKUUccTudzq7osZ5j Ii8+IDbfs9nyc3hjnUy8ZwIq SBTrpcMmdJaxRQR9s6TyVt30P1 VjgGkun9TkAcd0ur60rSBds7Q2 aJM8EJmfGBOmhZ7xQBmqJoK3 SBBwXyIdoZ52hSKgQHetSq7uxJ gbxWcrPQ8eQNOzbrmwWOEeuG6c QLImuFWhdCboKN6mUEWyvutn m947XaLkEZY3WWUpcOToQ6RihA 2rDxBrQLClLKGnG4ApnZYuSKrl F614QCtgWeE1LMIfhfLwZ3Mf QQPfdTsxCnD0y0E7Rq2St8Sbed jdKYF6QFidPFOqUtNfWzXnCoC1 P4LvLag2OLHxuEicGB4rI6Fg YVReloadlpymgFY0GQDnSFTwbA 09yXXnSYlnYf0ml5L7m893IOOe KWLynK49Um9fxTndVWPtsUZF dE0xkygor0bbyhsyLbJhNTAfFQ s0TXs7ZPOpnLpfBwUuVIO4JkV7 UIG1iEHuzG0tyLnagdvkhH1n Oyc+F58utH3nGVO4BBQ1gmhcYF MpwbKbFS69GP76M6DnWpdkgJRg bGU+PSNeoySkkYssDK7fDjEe k6ney5GfGLegN0XdFAXwYUafVi m5RQXvNXW9fIO1gX5aSRNeFJzn w7G4mUS8T9JwbbDgwg1zz5qw WVCsKLjxQ40chOVtg0C9PLFxeN M0VXAosRubNnOnbA62Fhh+PGNv yUyiu8YaFpbct4kwg4hruZn9 CzLmVXBtpqEvfBsjQPK2d1HwNg 95H65iMCzbDTTgGTGuABQjTCSw vUpdcf2lmZ4zJs3+PGNvbCB3 tGI9zC0dIMJxKbQ8GXnmF307El OaoBBwDpwbg0ltu3pqfBj4IlNn YYOplzElxTpcSGY2c3CzMv76 X01aOHmtMSUjQYIxQLQjIILdfG zpmm7lmG6iCg4+GC9qj4fzbz88 uG75cSD+GURkUDG1dAspAUtx JFKbwR1aMKmiFiS0SFGvLaDkyI 55dOVkSOpnOb8kiQagwXjuIB1o JVQqmdlvz962NhSaz3hkRFHt iMMfHGzaLDR7G69ni0E1EXQxIJ JyDGS1gXI5rC9ewVgoswlenRUa nFgliwPnfAwaFOxxHDciH969 IHRvcDsnPlBhdGllbnQgTmFtZT p0A7TtVtf6QGBpiIqtTY3ndOFl FMbdYy3uuZatgRykAF4mAUJh pbzcr531JxNar8qdJGHscSWcUV klOZX4Q81kw2O7TBMwNTCxYYR6 wXS8uH7kzUuhispezJKvlJlh vtPafQrsORktQVwkO095QLLryE xlBoAzedOdESQkmUP9CM12PY03 xKQwd8O1uQL8A8LhQOFlkbvb zdxenPV0ODNnRYNhhZ58Iv3gqR blMh4vUFDfSOU2DTRrtZIjJ4Hn wG0bWwVmVCLjJDDsJ0CbtTOn DOpzT575KHbtBwX8GNEqytRlI6 EfSFPjkNpyKeX9g0V5Vy4UP6V1 NO22WI08jAWpy2A8eQG0K2Mb ZXLrixzccdmlqVU2CLHcHVZrqV 70Pp1pkRyfMq2cXZEsHYK0KYGh oFXiF8BgjF3iKbYzGIVwKNFi K1HzeYIbFCrlZ540IYclAsM0US YnyhSyZ2XqPTIlcDsaOtC8u1O4 Tt9KOZv5OP89HE58cXMoo4T0 vBW1H1OnCGMhpvplppmfkOZ8PU YcKJJzgO05In6lwQwqAr2jPRRo XXJ3AQCgqNTcI8DvqH6fRhVz ZWBbQXScF6EhjTIgONhrM022CY abLdK3QYXhyqXkL8JfCHQkcAjz TaK5w3A0Vz9GJYHzCR67TLO1 sIM7TA10LK47J8DmHkopvUWxwC U+PHRhYmxlIHdpZHRoPScxMDAl XaWgmVflTZ6iJv5zMFPwTIVb lIwndBYeVuMxe8nzXGCqPSzhYM 3ggEesZ8MbmUV9VTVby5a9Kr58 W95aG9BkdZQ+YIJksDW1lHK5 rY7mKrOhRrF7RWypX512UwYnhH YkYtjfn0hus3ixwMl3HdC4OBRk kmWxxSrkVLX1z6PsHh66J00f IHdpZHRoPSIxNSUiIHZhbGlnbj 2syS1vMj9+EJApyBV2zND6yK8o XvZoSlQ5VOpaC910WePahIJx Suanv3orw4zhfSs5TuPlWOGpnb OmqBigMNS9n6ApDl18Z2AkuIdo r0DoWyf8gt74uRJyg9G6wMY5 D4MxWXUqhlqydSMwmFtvZG7oLJ QzztkgONUjdL9jWLIaD0p3CsZs DjQ1TUxaG8RpfsS5OASouNPe UFdvBVY3D90yp1T1RHJrPJMnMM S5yXM0cX1flRnipqsepNXluJtf aiAmnZinDZfiTDcyO789KYVa nJhfMYWgiX4iOWEccOScxCckZY 7yZPZaxpeoJvKIY6WTN6BsFUTM SZJZU2eSTX36IE53cLCjq9R9 oYE9O4OqYEUlpszgslngiYV6ZU ViCHBxeU80uKLrADkbRj7pm6Q1 z566FFPeGROhyR10Ha5cyLzv GJPqwMAWuL0ondfsl4vcjfipUw WiXPWcUJy5SUr0BRDoxIqjHdKq DDS7JwQ0RKW8gHJjmM9xvLvd yjuodY1xXzv+KOJjUKFuNRd4Ox wvdGQ+QLOwECN0iEndUTphDGRy wS4uVUNwH4z1YsQiRjQ3SJyq E7OgJPHsesqiCs14sA5tWsFkHz N8JHkrH2TaqwE4XVJueXGgDCao QCD9C06oz0I7EOHnYAVaDCK9 yIQ8kO9unMhrqfvzjZAgeKighu EycFwoOUdlNBfgT473BRIoaVtn Jdq7WNjiUTRyRW62SI40xMTw c6Y0gGX0V5QrLEInywxamoqvpM M6BCBeFHOtsM39xOQzHRalBg9y n9E1o064NPVaCGEqjI04Fj8w iWbtCXAinFXSjV3fyfxer9zche tdTqYmTOJxKDq6EOv2GGEfpJns QoEoTQA0CbB3ZEZ7sXCdxD9n bZvsbwutrL8nIfs+RmVtYWxlPC 93JP53iVTsj5N8rNK6T1XwGOZq ahuttenxpDI5ZFLrYYUqzK85 kTZvSAgoHw5lj6D4f931YOEqGG XuvS74Io5utFplXSImfDSEcV1n dycje2qdiicgDhThTLHcEOe5 HWw3GGPxmAohHrAwHTO8KwG8GX B4aXQcpD3qrFvmgdgftJ6fTfx+ T6O9pDZ8mIUquOwydQN+PC90 ia35N5QnIiebQyb0PCTnDAK6dT W8dW6yXKSgNMyfl1P1bFO2X5Iq uxVijc3nq2qnOLPxEZxtT13h gBSyz4L8JIUkgLD6ADGnqGxzXz GzgD84Ztk+HWRmkRzyb0LjUsju h2eiq6bhmZo7ArWzCWQjocYk mQxqNDX9p0WjUn05G21uFVqvWH HkPVFwPBDiFOOozUhwiu2nrR9x Ii8+XUWzqXO8xLW5lT1wUaLz ZwM4HOduM252AaXdkKSxTlwwl9 rav1suhRn0LqDsYISkxzBnjKzc XFF4g7NeBa38J4LeiQtte7Xv Bmd0ch71uGGga6W9wWE0O7NnVI IwncinwFNbsEpzAN8hHDPczzvn CIKcaX4yMWCyN6i2ZeTwVeL1 QTmwM9MukyO0QQAciFTpZFOvxO HQtA3tbgzzo9nkarysPoKhICIu JDr1NZp4KTEzzNefYtRzMLM8 WoB6YLX1uEDkaU4kvBdxfmitiI 9wOyc+RKv1l3rnbJAbRL4buAT9 PP40SO59pOOuz4B2rSQ4Z0Cn RRQyzrrhvuomtBV8RRIaMXPcnA 44Gv1nkZfjOm3yJPUuXHJ9HJGl kBGpP3AfyZ3oHtBdMXBeGSMb Y1AccLSmBQxaB028MEvxXzK4GO KbagLjU5MqTCGcmSctIfU7e4Y9 Uz8SFA33WH56TG58yXRua1I9 dZX6K1BlXPTfikhgamwwqCH2JV EwLVWouT78Pt0ssIggYc2nWTLs AMN7ORNzdORdT0XbvH9aPzZo VMDnMPRzD1CyiECrCCkeB309GO rsZiT6KFAhxtFnJ4WkSZGavOmw MdK3x7U5Ut3HPz31VY49EN39 fCAnd2V7pDY9W7JxERTxlrcovl dxvWU7RIPtPCHsoQ98Ia0ayZgv Wr3xBYYhOIF3KLActBEeZ3Mv uS1uAcExNUQpSMBgD1MgnKLxRN xxY192HGyaUvC5ZIMfeqVcF8Cy GJAoiPqoAjL0z1U7Ej0IXXrg tsv8E9ZsNlqwxBC+VX37UFZtHL 94aYWyqXZzp9uprBf3NsRwTXXj UYT6vSuzZHryk5BxDSYqF79v bGFw (more content not included)... Normal [facility] C. diff by PCRon 01-14-2022 Clostridium difficile by PCR see comment Invalid Interpretation Code [facility] Comment on above: Result Comment: Unab [...] its clinical significance. Performed By: #### 1 [id number], [id number], 42493804, 87319666, 89421665, 72252060 ####[facility] [address] [place] [address] Consent for Procedure/Surger yon 01-14-2022 Consent for Procedure/Surgery [id number]:127 Normal [facility] Enteric Panel by PCRon 01-14 C. coli+jejuni+upsaliens is DNA FERN+non-probe Ql (Stl) Not detected Normal [facility] Comment on above: Result Comment: Test ing was performed utilizing reverse wick tender (RT), polymerase chain reaction (PCR), and array [...] nulcleic acid test. Performed By: #### 1 [id number], 045269052, 95158924, 35547724, 39510670, 47544115 ####[facility] [address] [place] [address] E. coli stx1+stx2 genes FERN+non-probe Ql (Stl) Negative Normal [facility] Comment on above: Performed By: #### 1 [id number], 054204225, 40631568, 26380674, 55580151, 33963285 ####[facility] [address] [place] [address] Enteric Panel by PCR Negative Normal [facility] Enteric Panel Intrl QC Pass Normal [facility] Comment on above: Result Comment: Test ing was performed utilizing reverse wick tender (RT), polymerase chain reaction (PCR), and array [...] 1 and 2. Performed By: #### 1 [id number], 745237910, 56721937, 46206346, 60826169, 52632481 ####[facility] [address] [place] [address] Norovirus genogroup I+II RNA FERN+non-probe Ql (Stl) Not detected Normal [facility] Comment on above: Performed By: #### 1 [id number], 596142443, 29484740, 81536329, 04516606, 72643072 ####[facility] [address] [place] [address] Rotavirus A RNA FERN+non-probe Ql (Stl) Not detected Normal [facility] Comment on above: Performed By: #### 1 [id number], 561133643, 55035035, 27052019, 69407971, 86458070 ####[facility] [address] [place] [address] S. enterica+bongori DNA FERN+non-probe Ql (Stl) Not detected Normal [facility] Comment on above: Result Comment: This test result should be correlated with clinical presentations and medical history by a healthcare provider to determine its clinical significance. Performed By: #### 1 [id number], 592202292, 78356143, 89961489, 42091187, 71227377 ####[facility] [address] [place] [address] Shigella species+EIEC invasion plasmid antigen H ipaH gene FERN+non-probe Ql (Stl) Not detected Normal [facility] Comment on above: Performed By: #### 1 145671574, 625162268, 66050015, 65434574, 41137681, 83348563 ####[facility] [address] [place] [address] V. cholerae+parahaemolyt icus+vulnificus DNA FERN+non-probe Ql (Stl) Not detected Normal [facility] Comment on above: Performed By: #### 1 528034301, 695802172, 02498763, 87243001, 20326691, 79639842 ####[address] [place] [address] Y. enterocolitica DNA FERN+non-probe Ql (Stl) Not detected Normal [facility] Comment on above: Performed By: #### 1 [id number], 750676002, 03931851, 42630176, 03475040, 07474941 ####[facility] [address] [place] [address] Fecal WBC Lactoferrinon 01-04 Fecal WBC Lactoferrin Negative Normal Negative [facility] Comment on above: Result Comment: The semi-quantitative detection of elevated levels of fecal lactoferrin is a marker for fecal leukocytes and an indication of intestinal inflammation. Performed By: #### 1 858113689, 994193087, 12268202, 88672088, 19348826, 46036362 #### [facility] [address] [place] [address] Ambulatory Visit Summaryon Ambulatory Visit Summary ADINA PERRY :1940 Visit [...] diarrhea Invalid Interpretation Code RLQ abdominal pain [facility] Auto Diffon 01-10-2022 Basophils/100 WBC (Bld) 1.0 % Normal 0.0-2.0 [facility] Comment on above: Order Comment: Order Added by Discern Expert. Performed By: #### 2 661284, 2130235, 21209146, 2696580 ####[facility] [address] [place] [address] Basophils/Leukocytes Auto (Bld) [Pure # fraction] 0.1 E9/L Normal 0.0-0.2 [facility] Comment on above: Order Comment: Order Added by Discern Expert. Performed By: #### 2 089943, 2794282, 88185736, 3041963 ####[facility] [address] [place] [address] Eosinophils/100 WBC (Bld) 1.0 % Normal 0.0-8.0 [facility] Comment on above: Order Comment: Order Added by Discern Expert. Performed By: #### 2 700733, 6449817, 90315888, 0364740 ####[address] [place] [address] Eosinophils/Leukocyte s Auto (Bld) [Pure # fraction] 0.1 E9/L Normal 0.0-0.5 [facility] Comment on above: Order Comment: Order Added by Discern Expert. Performed By: #### 2 483623, 3541630, 79271824, 9814878 ####[address] [address] Lymphocytes/100 WBC (Bld) 20.0 % Normal 14.0-50.0 [facility] Comment on above: Order Comment: Order Added by Discern Expert. Performed By: #### 2 461102, 7908905, 01798192, 3236478 ####[address] [address] Lymphocytes/Leukocyte s Auto (Bld) [Pure # fraction] 2.0 E9/L Normal 1.0-4.0 [facility] Comment on above: Order Comment: Order Added by Discern Expert. Performed By: #### 2 459063, 6182176, 67842977, 9754956 ####[address] [address] Monocytes/100 WBC (Bld) 8.7 % Normal 4.0-14.0 [facility] Comment on above: Order Comment: Order Added by Discern Expert. Performed By: #### 2 399722, 9351603, 81801605, 6977690 ####[address] [place] [address] Monocytes/Leukocytes Auto (Bld) [Pure # fraction] 0.9 E9/L Normal 0.2-1.0 [facility] Comment on above: Order Comment: Order Added by Discern Expert. Performed By: #### 2 944650, 4042714, 02367755, 2163985 ####[address] [place] [address] Neutrophils/100 WBC (Bld) 69.3 % Normal 36.0-75.0 [facility] Comment on above: Order Comment: Order Added by Discern Expert. Performed By: #### 2 034678, 7499725, 17998937, 9727005 ####[address] [address] Neutrophils/Leukocyte s Auto (Bld) [Pure # fraction] 7.0 E9/L Normal 2.0-7.5 [facility] Comment on above: Order Comment: Order Added by Discern Expert. Performed By: #### 2 073932, 6342117, 20311713, 7448527 ####[address] [address] CBC w/ Auto Diffon Erythrocyte distribution width (RBC) [Ratio] 14.7 % High 10.9-14.2 [facility] Comment on above: Performed By: #### 2 228444, 6462038, 66704135, 1532447 ####[address] [address] Hematocrit (Bld) [Volume fraction] 37.1 % Normal 34.0-46.0 [facility] Comment on above: Performed By: #### 2 163969, 8966725, 30832716, 8384202 ####[address] [address] Hemoglobin (Bld) [Mass/Vol] 12.2 g/dL Normal 12.0-16.0 [facility] Comment on above: Performed By: #### 2 563728, 1547221, 69665758, 7910719 ####[address] [address] MCH (RBC) [Entitic mass] 30.0 pg Normal 27.0-34.0 [facility] Comment on above: Performed By: #### 2 914858, 7173950, 18812854, 3386119 ####[address] [place] [address] MCHC (RBC) [Mass/Vol] 33.0 g/dL Normal 31.4-36.0 [facility] Comment on above: Performed By: #### 2 098195, 0346264, 29779037, 4510821 ####[address] MCV (RBC) [Entitic vol] 90.8 fL Normal 80.0-100.0 [facility] Comment on above: Performed By: #### 2 650686, 0132474, 06037112, 9599658 ####[address] Platelet mean volume (Bld) [Entitic vol] 7.9 fL Normal 6.4-10.8 [facility] Comment on above: Performed By: #### 2 624575, 2408215, 44005350, 2301484 ####[address] Platelets (Bld) [#/Vol] 281.0 E9/L Normal 150.0-500. 0 [facility] Comment on above: Performed By: #### 2 639200, 4485122, 17066650, 8253894 ####[address] [address] RBC (Bld) [#/Vol] 4.1 E12/L Low 4.3-5.9 [facility] Comment on above: Performed By: #### 2 014792, 5647748, 05634518, 3277120 ####[address] [address] WBC corrected for nucl RBC Auto (Bld) [#/Vol] 10.1 E9/L Normal 4.0-11.0 [facility] Comment on above: Performed By: #### 2 702411, 1327998, 52617195, 9882695 ####[address] [place] [address] CMPon 01-10-2022 Albumin [Mass/Vol] 4.4 g/dL Normal 3.3-5.0 [facility] Comment on above: Performed By: #### 2 167692, 0401548, 96488553, 8334308 ####[facility] [address] [place] [address] Albumin/Globulin (S) [Mass conc ratio] 1.5 Normal 1.1-2.2 [facility] Comment on above: Performed By: #### 2 212792, 2593092, 95703908, 8783896 ####[address] [place] [address] ALP [Catalytic activity/Vol] 55 Int._Unit/L Normal 21-98 [facility] Comment on above: Performed By: #### 2 981431, 6039068, 00369410, 6955719 ####[facility] [address] [place] [address] ALT No additional P-5'-P [Catalytic activity/Vol] 15 Int._Unit/L Normal 6-46 [facility] Comment on above: Performed By: #### 2 363174, 0014836, 51190743, 7283300 ####[facility] [address] [place] [address] Anion gap [Moles/Vol] 19 mmol/L High 6-16 [facility] Comment on above: Performed By: #### 2 956914, 9103772, 54388736, 9455414 ####[facility] [address] [place] [address] AST [Catalytic activity/Vol] 19 Int._Unit/L Normal 5-43 [facility] Comment on above: Performed By: #### 2 435555, 5258361, 39150950, 3314803 ####[facility] [address] [place] [address] Bilirubin [Mass/Vol] 0.7 mg/dL Normal 0.0-1.1 [facility] Comment on above: Performed By: #### 2 725823, 5186684, 58650289, 2656244 ####[facility] [address] [place] [address] Calcium [Mass/Vol] 10.5 mg/dL Normal 8.9-11.1 [facility] Comment on above: Performed By: #### 2 023691, 0617607, 66823025, 1088621 ####[facility] [address] [place] [address] Chloride [Moles/Vol] 103 mmol/L Normal 101-111 [facility] Comment on above: Performed By: #### 2 043568, 7236271, 42938865, 8361324 ####[facility] [address] [facility] [place] [address] CO2 [Moles/Vol] 23 mmol/L Normal 21-31 [facility] Comment on above: Performed By: #### 2 717267, 5845722, 99412264, 0602263 ####[facility] [address] [facility] [place] [address] Creatinine [Mass/Vol] 1.2 mg/dL Normal 0.5-1.3 [facility] Comment on above: Performed By: #### 2 228246, 3783060, 75955413, 4185695 ####[facility] [address] [facility] [place] [address] Globulin (S) [Mass/Vol] 2.9 g/dL Normal 1.4-4.0 [facility] Comment on above: Performed By: #### 2 669236, 8123412, 42289679, 4610210 ####[facility] [address] [facility] [place] [address] Glucose [Mass/Vol] 94 mg/dL Normal 55-199 [facility] Comment on above: Result Comment: If t his glucose result represents a fasting glucose, interpretation should refer to the following reference range: 55-99 mg/dL Performed By: #### 2 119456, 2603243, 83294159, 1551634 ####[facility] [address] [place] [address] Potassium [Moles/Vol] 4.7 mmol/L Normal 3.5-5.3 [facility] Comment on above: Performed By: #### 2 390859, 2745089, 03223678, 3881426 ####[facility] [address] [place] [address] Protein [Mass/Vol] 7.3 g/dL Normal 6.0-7.8 [facility] Comment on above: Performed By: #### 2 568384, 1578318, 24410548, 4658560 ####[facility] [address] [place] [address] Sodium [Moles/Vol] 140 mmol/L Normal 135-145 [facility] Comment on above: Performed By: #### 2 112378, 2325659, 07199268, 2434420 ####[facility] [address] [place] [address] Urea nitrogen [Mass/Vol] 25 mg/dL High 5-21 [facility] Comment on above: Performed By: #### 2 229766, 6124562, 94962035, 1256892 ####[facility] [address] [place] [address] Urea nitrogen/Creatinine [Mass ratio] 21 No Units High 10-20 [facility] Comment on above: Performed By: #### 2 361980, 4363183, 89766086, 9701032 ####[facility] [address] [place] [address] Consent for Treatmenton Consent for Treatment [id number]:127 Normal [facility] Gastroenterology Office/Clin ic Noteon 01-10-2022 Gastroenterology [...] had previous EGD with Dr. Brannon at [facility] 07/2020 that revealed normal EGD. Was previously evaluated at Located within [facility] ER 11/12/21 for N/V/D and had CT [...] year. Patient had previous colonoscopy 2010 in [place] and reports was normal. Patient reports hx. [...] to evaluate for acute process. 11/12/21 at [facility]-CT abdomen/pelvis that showed fat-containing ventral hernia. [...] at times. (more content not included)... Normal [facility] Comment on above: Result Comment: Elec tronically Signed By: Shi Urbano CNP.basia\Date and Time [...] your local community. General instructions ? Take njmt-uvn-rzeycme and prescription medicines only as told by [...] Foundation for Functional Gastrointestinal Disorders: [email or web address] ? [employer]: [email or web address] Contact a health care provider if: ? You have a fever. ? You have redness, swelling, or pain around your rectum. ? Your pain is getting worse or you lose feeling in your rectal area. ? You have blood (more content not included)... Normal [facility] eGFRon 01-10-2022 GFR/1.73 sq M.predicted among blacks MDRD (S/P/Bld) [Vol rate/Area] 53 mL/min/1.73 m2 Low >=59 [facility] Comment on above: Order Comment: Order added by Discern Expert. Result Comment: eGFR is race adjusted. AA=. Performed By: #### [id number] ####[facility] [id number] [place] [address] GFR/1.73 sq M.predicted among non-blacks MDRD (S/P/Bld) [Vol rate/Area] 43 mL/min/1.73 m2 Low >=59 [facility] Comment on above: Order Comment: Order added by Discern Expert. Result Comment: Acid Washer Operator serene kidney disease could be indicated at eGFR's of less than 60 mL/min/1.73m2. Kidney failure is indicated at less than 15 mL/min/1.73m2. Performed By: #### [id number] ####[facility] [id number] [place] [address] Physician Referralon 022 Physician Referral [id number] Normal [facility] Urine culture routineOrdered By: Misbah Greenwood on 11-15-2021 Bacteria identified Cx Nom (U) Escherichia coli [facility] Bacteria identified Cx Nom (U) Klebsiella pneumoniae [facility] Automated erythrocytes count in urine sediment (number/area)Ordered By: Misbah Greenwood on 11-12-2021 RBC Auto (Urine sed) [#/Area] 1-2 [HPF] 0-4 [facility] Automated leukocytes count i n urine sediment (number/area)Ordered By: Misbah Greenwood on 11-12-2021 WBC Auto (Urine sed) [#/Area] 10-19 [HPF] 0-4 [facility] Automated urine hyaline cast s count (number/volume)Ordered By: Misbah Greenwood on 11-12-2021 Hyaline casts Auto (U) [#/Vol] Rare [LPF] 0-1 [facility] Basophils Auto (Bld) [#/Vol] Ordered By: Misbah Greenwood on 11-12-2021 Basophils (Bld) [#/Vol] 0.1 10*3/uL 0.0-0.2 [facility] Basophils/100 WBC Auto (Bld) Ordered By: Misbah Greenwood on 11-12-2021 Basophils/100 WBC (Bld) 0.7 % . [facility] Bilirubin Test strip Ql (U)O rdered By: Misbah Greenwood on 11-12-2021 Bilirubin Ql (U) Negative Negative [facility] Blood hemoglobin measurement (mass/volume)Ordered By: Misbah Greenwood on 11-12-2021 Hemoglobin (Bld) [Mass/Vol] 10.8 g/dL 11.8-15.4 [facility] Blood leukocytes automated c ount (number/volume)Ordered By: Misbah Greenwood on 11-12-2021 WBC (Bld) [#/Vol] 12.3 10*3/uL 4.5-11.0 [facility] Body fluid albumin measureme nt (mass/volume)Ordered By: Misbah Greenwood on 11-12-2021 Albumin (Body fld) [Mass/Vol] 3.7 g/dL 3.2-5.5 [facility] COVID-19 SOFIAOrdered By: Kee Greenwood on 11-12-2021 SARS-CoV+SARS-CoV-2 (COVID-19) Ag IA.rapid Ql (Resp) Negative Negative [facility] Comment on above: This is a duplicate Johana SARS Antigen (DEEDEE) result to be used for statistical tracking purpose only. Casts typing in urine sedime nt by light microscopyOrdered By: Misbah Greenwood on 11-12-2021 Casts LM Nom (Urine sed) None seen [LPF] None Seen [facility] Color Auto (U)Ordered By: Kee gudelia Timo on 11-12-2021 Color (U) Yellow Yellow [facility] Creatinine and Glomerular fi ltration rate.predicted panel (S/P/Bld)Ordered By: Misbah Greenwood on 11-12-2021 Creatinine [Mass/Vol] 1.58 mg/dL 0.44-1.[address] [facility] Eosinophils Auto (Bld) [#/Vo l]Ordered By: Misbah Greenwood on 11-12-2021 Eosinophils (Bld) [#/Vol] 0.2 10*3/uL 0.0-0.45 [facility] Eosinophils/100 WBC Auto (Bl d)Ordered By: Misbah Greenwood on 11-12-2021 Eosinophils/100 WBC (Bld) 1.4 % . [facility] Erythrocyte distribution wid th Auto (RBC) [Ratio]Ordered By: Misbah Greenwood on 11-12-2021 Erythrocyte distribution width (RBC) [Ratio] 13.7 % 11.9-15.3 [facility] Estimated glomerular filtrat ion rate (GFR) non- AmericanOrdered By: Misbah Greenwood on 11-12-2021 GFR/1.73 sq M.predicted among non-blacks MDRD (S/P/Bld) [Vol rate/Area] 32 mL/Min [facility] Globulin Calc (S) [Mass/Vol] Ordered By: Misbah Greenwood on 11-12-2021 Globulin (S) [Mass/Vol] 3.0 g/dL [facility] Hematocrit Auto (Bld) [Volum e fraction]Ordered By: Misbah Greenwood on 11-12-2021 Hematocrit (Bld) [Volume fraction] 32.4 % 34.0-46.4 [facility] Ketones Auto test strip (U) [Mass/Vol]Ordered By: Misbah Greenwood on 11-12-2021 Ketones (U) [Mass/Vol] Negative Negative [facility] - Chemistry and C hemistry - challengeOrdered By: Misbah Greenwood on 11-12-2021 Lipase [Catalytic activity/Vol] 44.0 U/L 22-51 [facility] - Hematology and Cell countsOrdered By: Misbah Greenwood on 11-12-2021 Nucleated RBC/100 WBC (Bld) [Ratio] 0.0 % 0-0.5 [facility] Lymphocytes Auto (Bld) [#/Vo l]Ordered By: Misbah Greenwood on 11-12-2021 Lymphocytes (Bld) [#/Vol] 0.9 10*3/uL 1.00-4.8 [facility] Lymphocytes/100 WBC Auto (Bl d)Ordered By: Misbah Greenwood on 11-12-2021 Lymphocytes/100 WBC (Bld) 7.5 % . [facility] MCH Auto (RBC) [Entitic mass ]Ordered By: Misbah Greenwood on 11-12-2021 MCH (RBC) [Entitic mass] 29.9 pg 24.7-34.3 [facility] MCHC Auto (RBC) [Mass/Vol]Or dered By: Misbah Greenwood on 11-12-2021 MCHC (RBC) [Mass/Vol] 33.2 g/dL 32.0-35.0 [facility] MCV Auto (RBC) [Entitic vol] Ordered By: Misbah Greenwood on 11-12-2021 MCV (RBC) [Entitic vol] 90.0 fL 80-100 [facility] Monocytes Auto (Bld) [#/Vol] Ordered By: Misbah Greenwood on 11-12-2021 Monocytes (Bld) [#/Vol] 1.0 10*3/uL 0.0-0.8 [facility] Monocytes/100 WBC Auto (Bld) Ordered By: Misbah Greenwood on 11-12-2021 Monocytes/100 WBC (Bld) 8.3 % . [facility] Neutrophils Auto (Bld) [#/Vo l]Ordered By: Misbah Greenwood on 11-12-2021 Neutrophils (Bld) [#/Vol] 10.1 10*3/uL 1.8-7.7 [facility] Neutrophils/100 WBC Auto (Bl d)Ordered By: Misbah Greenwood on 11-12-2021 Neutrophils/100 WBC (Bld) 82.1 % . [facility] Nitrite Test strip Ql (U)Ord ered By: Misbah Greenwood on 11-12-2021 Nitrite Ql (U) Negative Negative [facility] No Panel InformationOrdered By: Misbah Greenwood on 11-12-2021 Estimated GFR () 38 mL/Min [facility] Comment on above: GFR estimated refere nce range: According to KDOQI guidelines, <60 ml/min/1.73m2 is sufficient to diagnose a patient with chronic kidney disease. Pharmacy Creatinine Clearance (Chem 20.67 [facility] SARS Antigen (LFIA) [facility] Platelet mean volume Auto (B ld) [Entitic vol]Ordered By: Misbah Greenwood on 11-12-2021 Platelet mean volume (Bld) [Entitic vol] 7.6 fL 6.3-10.7 [facility] Platelets Auto (Bld) [#/Vol] Ordered By: Misbah Greenwood on 11-12-2021 Platelets (Bld) [#/Vol] 379 10*3/uL 150-450 [facility] Protein Auto test strip (U) [Mass/Vol]Ordered By: Misbah Greenwood on 11-12-2021 Protein (U) [Mass/Vol] Trace mg/dL Negative [facility] Protein [Mass/volume] in Ser um or PlasmaOrdered By: Misbah Greenwood on 11-12-2021 Protein [Mass/Vol] 6.7 g/dL 6.1-7.9 [facility] RBC Auto (Bld) [#/Vol]Ordere d By: Misbah Greenwood on 11-12-2021 RBC (Bld) [#/Vol] 3.59 10*6/uL 3.60-5.00 [facility] Serum or plasma alanine villanueva otransferase measurement without P-5'-P (enzymatic activiOrdered By: Misbah Greenwood on 08-09-2022 ALT No additional P-5'-P [Catalytic activity/Vol] 13 U/L 10-60 [facility] Serum or plasma albumin/glob ulin mass ratioOrdered By: Misbah Greenwood on 11-12-2021 Albumin/Globulin [Mass ratio] 1.2 {ratio} [facility] Serum or plasma alkaline ladarius sphatase measurement (enzymatic activity/volume)Ordered By: Misbah Greenwood on 11-12-2021 ALP [Catalytic activity/Vol] 74 U/L 32-92 [facility] Serum or plasma aspartate am inotransferase measurement (enzymatic activity/volume)Ordered By: Misbah Greenwood on 11-12-2021 AST [Catalytic activity/Vol] 17 U/L 10-42 [facility] Serum or plasma calcium dennis urement (mass/volume)Ordered By: Misbah Greenwood on 11-12-2021 Calcium [Mass/Vol] 9.5 mg/dL 8.2-10.2 [facility] Serum or plasma chloride brea surement (moles/volume)Ordered By: Misbah Greenwood on 11-12-2021 Chloride [Moles/Vol] 103 mmol/L 95-114 [facility] Serum or plasma glucose dennis urement (mass/volume)Ordered By: Misbah Greenwood on 11-12-2021 Glucose [Mass/Vol] 118 mg/dL 70-100 [facility] Comment on above: ADA recommended refe rence range Random Glucose Reference Range is dependent on time and content of last meal. Glucose of more than 200 mg/dL in a nonstressed, ambulatory subject supports the diagnosis of Diabetes Mellitus. Serum or plasma potassium me asurement (moles/volume)Ordered By: Misbah Greenwood on 11-12-2021 Potassium [Moles/Vol] 3.7 mmol/L 3.5-5.1 [facility] Serum or plasma sodium measu rement (moles/volume)Ordered By: Misbah Greenwood on 11-12-2021 Sodium [Moles/Vol] 135 mmol/L 136-146 [facility] Serum or plasma total biliru bin measurement (mass/volume)Ordered By: Misbah Greenwood on 11-12-2021 Bilirubin [Mass/Vol] 0.3 mg/dL 0.3-1.2 [facility] Serum or plasma total carbon dioxide measurement (moles/volume)Ordered By: Misbah Greenwood on 11-12-2021 CO2 [Moles/Vol] 19.9 mmol/L 22.0-30.0 [facility] Serum or plasma urea nitroge n measurement (mass/volume)Ordered By: Misbah Greenwood on 11-12-2021 Urea nitrogen [Mass/Vol] 21 mg/dL 9- [facility] Specific gravity Auto test s trip (U) [Rel density]Ordered By: Misbah Greenwood on 11-12-2021 Specific gravity (U) [Rel density] 1.012 1.001-1.03 0 [facility] Squamous epithelial cells de tection in urine sediment by light microscopyOrdered By: Misbah Greenwood on 11-12-2021 Epithelial cells.squamous LM Ql (Urine sed) 5-9 [HPF] 0-2 [facility] Urine bacteria detection by automated methodOrdered By: Misbah Greenwood on 11-12-2021 Bacteria Auto Ql (U) None seen None Seen [facility] Urine clarity by refractomet ry automatedOrdered By: Misbah Greenwood on 11-12-2021 Clarity Refractometry automated (U) Clear Clear [facility] Urine glucose measurement by automated test strip (mass/volume)Ordered By: Misbah Greenwood on 11-12-2021 Glucose Auto test strip (U) [Mass/Vol] Normal mg/dL Normal [facility] Urine hemoglobin detection b y automated test stripOrdered By: Misbah Greenwood on 11-12-2021 Hemoglobin Auto test strip Ql (U) Negative Negative [facility] Urine leukocyte esterase det ection by automated test stripOrdered By: Misbah Greenwood on 11-12-2021 Leukocyte esterase Auto test strip Ql (U) 1+ Negative [facility] Urine sediment renal epithel ial cell count by microscopy (number/high power field)Ordered By: Misbah Greenwood on 11-12-2021 Epithelial cells.renal LM.HPF (Urine sed) [#/Area] None seen [HPF] 0-1 [facility] Urobilinogen Auto test strip (U) [Mass/Vol]Ordered By: Misbah Greenwood on 11-12-2021 Urobilinogen (U) [Mass/Vol] Normal mg/dL Normal [facility] pH Auto test strip (U)Ordere d By: Misbah Greenwood on 11-12-2021 pH (U) 5.5 [pH] 5.0-9.0 [facility] SCREENING MAMMOGRAM W/DANIEL, BILATERAL*on 10-18-2021 SCREENING MAMMOGRAM [...] EXAM. BOARD CERTIFIED RADIOLOGIST. ACCREDITED BY THE [facility] AND FDA. Report reported and signed by Claudia Hinson on 10/21/2021 1432 Normal [facility] [employer] [facility] CARDIAC STRESS/REST INJE CTIONon 08-28-2021 [facility] CARDIAC STRESS/REST INJECTION Addendum Begins Patient Name: [...] PERFUSION STRESS TEST WITH LEXISCAN Performing facility: [facility], [address] [place] [address], [address], [address] Provider: Mary Ayala MD PCP: Dr. Cruz Supervising provider: Mary Ayala MD INDICATION: CAD; SOBOE Nonischemic cardiomyopathy HISTORY: Gender: F; Age: 81 y/o ; Height: 149.8 cm; Weight: 52.7 kg. High Cholesterol; HTN; SOB; Denies smoking. COMPARISON: Previous nuclear testing completed [id number] at [facility]. ACCESSION NUMBER(S): [id number]; [id number]; [id number] ORDERING CLINICIAN: MARY AYALA TECHNIQUE: ONE DAY [...] Electronically signed by: MARK ZAMBRANO MD Normal [facility] No Panel Informationon 08-28 Normal -[facility] DO Work Phone: -[facility] DO Work Phone: Office [...] signing my name below, I, Jonah Way LPNibjenelle, attest that this documentation has been prepared [...] 07Jun2021 03:06PM Heart Rate60, L Brachial Artery [id number], LUE, Sitting [id number], LUE, Sitting Height4 ft 11 in Iggfwn224 lb BMI Fdtyfqhqkx80.61 kg/m2 BSA Calculated1.41 Tobacco Useb) No PHQ-2 [...] Cardiovascular: carotid (more content not included)... Normal [facility] Tobacco Screening.on 022 Adult depression screening assessment No [facility] DO Work Phone: Fall risk assessment a) No falls within the last year [facility] DO Work Phone: Tobacco use status CP b) No [facility] DO Work Phone: Tobacco Screening.on 021 Fall risk assessment a) No falls within the last year [facility] DO Work Phone: Tobacco use status CP b) No [facility] 250 DO Work Phone: No Panel Informationon 09-24 [facility] Qyuki 450 DO Work Phone: [email or web address]} [facility]-Westla [employer] 450 DO Work Phone: [facility]-Westla Qyuki 450 DO Work Phone: Order Reconciliationon 09-24 Order Reconciliation Page 1 Discharge Reconciliation Document Reconciliation Type: Discharge requested on behalf of Vilma Salazar (Physician) done by Vilma Salazar () Discharge - Reconciliation: 24-Sep-2020 08:58 by: Vilma [...] mcg) oral capsule 1 cap(s) orally Normal [facility] Coronavirus 2019 RNA by PCR, Screening Asymptomticon 09-21-2020 Coronavirus 2019 RNA by PCR, Screening Asymptomtic Not detected Normal See Below [facility]Gastroente rology-Westla ke SJW 450 DO Work Phone: Comment on above: [...] make patient management decisions.Fact sheet for providers: https://www.fda.gov/media/967349/downloadFact sheet for patients: https://www.fda.gov/media/043447/downloadThis test has received FDA Emergency Use Authorization (EUA) and has been verified by [facility] ([facility]). This test is only authorized for the duration of time that circumstances exist to justify the authorization of the emergency use of in vitro diagnostic tests for the detection of SARS-CoV-2 virus and/or diagnosis of COVID-19 infection under section 564(b)(1) of the Act, 21 U.S.C. 360bbb-3(b)(1), unless the authorization is terminated or revoked sooner. [facility] is certified under CLIA-88 as qualified to perform high complexity testing. Testing is performed in the [facility] laboratories located at [address] [place] [address]. ED NOTEon 04-08-2019 ED NOTE HNO ID: [id number] Author: Maria Teresa (Rn) LINA Oliver Service: ? Author Type: Registered Nurse Type: ED Notes Filed: 04/08/2019 7:07 PM Note Text: Patient discharged per MD orders, RN at bedside to explain and review s/sx of worsening condition and to return to ED if worsening s/sx develop. Follow up care and questions answered with patient/family. [facility] ED NOTE HNO ID: [id number] Author: Lenore Casey (Rn) LINA Moyer Service: ? Author Type: Registered Nurse Type: ED Notes Filed: 04/08/2019 5:16 PM Note Text: Bed: ED-11H Expected date: Expected time: Means of arrival: Comments: [facility] ED NOTE HNO ID: [id number] Author: Maribell (MedicRebecca Guzman Service: ? Author Type: Social Work Case Manager and [employer] Type: ED Notes Filed: 04/08/2019 4:59 PM Note Text: Past 2 days left ear pain. Went to urgent care and her BP was high so sent here. [facility] ED PROV NOTEon 04-08-2019 ED PROV NOTE HNO ID: [id number] Author: Elenita Castillo Service: Emergency Medicine Author Type: Physician Tube Fitter Type: ED Provider Notes Filed: 04/09/2019 3:31 [...] of the extremities. History provided by: Patient customer operations specialist used: No PAST MEDICAL HISTORY Diagnosis Date - Asthma - CAD (coronary artery disease) - Chronic cough due to asthma - Dyslipidemia - GERD (gastroesophageal reflux disease) - Hypertension - ND, old - MRSA infection - Myocarditis (HCC) PAST SURGICAL HISTORY Procedure Laterality Date - BACK SURGERY HX - CHOLECYSTECTOMY - COLONOSCOPY 2014 -was told she does not need anothe one-done in [place] - EGD 08/17/2018 /Normal - VALENTIN W/WO REMOVAL TUBE OVARY - [...] or wounds Nose: Nose normal. Mouth/Throat: Lips: [place]. Mouth: Mucous membranes are moist. Pharynx: Oropharynx [...] SIGNATURE: STEVIE Solano Pa-C 04/09/19 1531 Normal [facility] Vital Signs Date Time Vital Sign Value Performing Clinician Facility 02-11-2023 09:05-0500 Body height 152.4 cm Eliecer Gray Other [facility] Other 02-11-2023 09:05-0500 Body mass index (BMI) [Ratio] 20.5 kg/m2 Eliecer Gray Other [facility] Other 02-11-2023 09:05-0500 Body temperature 97.7 [degF] Eliecer Gray Other [facility] Other 02-11-2023 09:05-0500 Body weight 47.63 kg Eliecer Gray Other [facility] Other 02-11-2023 09:05-0500 Diastolic blood pressure 93 mm[Hg] Eliecer Gray Other [facility] Other 02-11-2023 09:05-0500 Respiratory rate 18 /min Eliecer Gray Other [facility] Other 02-11-2023 09:05-0500 SaO2% (BldA) [Mass fraction] 97 % Eliecer Gray Other [facility] Other 02-11-2023 09:05-0500 Systolic blood pressure 166 mm[Hg] Eliecer Gray Other [facility] Other 02-02-2023 11:06-0400 Body height 142.2 cm Nick Wasserman MD Work Phone: [facility] 02-02-2023 11:06-0400 Body mass index (BMI) [Ratio] 24.21 kg/m2 Nick Wasserman MD Work Phone: [facility] 02-02-2023 11:06-0400 Body weight 48.99 kg Nick Wasserman MD Work Phone: [facility] 02-02-2023 11:06-0400 Diastolic blood pressure 58 mm[Hg] Nick Wasserman MD Work Phone: [facility] 02-02-2023 11:06-0400 Heart rate 60 /min Nick Wasserman MD Work Phone: [facility] 02-02-2023 11:06-0400 Systolic blood pressure 138 mm[Hg] Nick Wasserman MD Work Phone: [facility] 08-30-2022 10:55-0400 Body height 152.4 cm Luis Nolasco Other [facility] Other 08-30-2022 10:55-0400 Body mass index (BMI) [Ratio] 20.7 kg/m2 Luis Nolasco Other [facility] Other 08-30-2022 10:55-0400 Body temperature 97.8 [degF] Luis Nolasco Other [facility] Other 08-30-2022 10:55-0400 Body weight 48.08 kg Luis Nolasco Other [facility] Other 08-30-2022 10:55-0400 Diastolic blood pressure 70 mm[Hg] Luis Nolasco Other [facility] Other 08-30-2022 10:55-0400 Respiratory rate 18 /min Luis Nolasco Other [facility] Other 08-30-2022 10:55-0400 SaO2% (BldA) [Mass fraction] 97 % Luis Nolasco Other [facility] Other 08-30-2022 10:55-0400 Systolic blood pressure 123 mm[Hg] Luis Nolasco Other [facility] Other 03-06-2022 15:48-0500 Diastolic blood pressure 72 mm[Hg] Adriana Katherine Tirado-Boncarbo Work Phone: [facility] [employer] 250 DO Work Phone: 03-06-2022 15:48-0500 Systolic blood pressure 136 mm[Hg] Adriana D Tirado-Boncarbo Work Phone: [facility] 250 DO Work Phone: 03-06-2022 15:25-0500 Body height 144.78 cm Adriana D Tirado-Boncarbo Work Phone: [facility] 250 DO Work Phone: 03-06-2022 15:25-0500 Body mass index (BMI) [Ratio] 23.37 kg/m2 Adriana D Tirado-Boncarbo Work Phone: [facility] 250 DO Work Phone: 03-06-2022 15:25-0500 Body surface area Derived from formula 1.38 m2 Adriana Murphy Tirado-Boncarbo Work Phone: [facility] 250 DO Work Phone: 03-06-2022 15:25-0500 Body weight 48.99 kg Adriana Murphy Tirado-Boncarbo Work Phone: [facility] 250 DO Work Phone: 03-06-2022 15:25-0500 Diastolic blood pressure 64 mm[Hg] Adriana Katherine Tirado-Boncarbo Work Phone: [facility] 250 DO Work Phone: 03-06-2022 15:25-0500 Heart rate 66 /min Adriana Murphy Tirado-Boncarbo Work Phone: [facility] 250 DO Work Phone: 03-06-2022 15:25-0500 Systolic blood pressure 154 mm[Hg] Adriana Murphy Tirado-Boncarbo Work Phone: [facility] 250 DO Work Phone: 01-17-2022 10:25-0400 Diastolic blood pressure 81 mm[Hg] Govea SALAM [facility] 01-17-2022 10:25-0400 Heart rate 55 /min Govea SALAM [facility] 01-17-2022 10:25-0400 Respiratory rate 14 /min Govea SALAM [facility] 01-17-2022 10:25-0400 SaO2% (BldA) [Mass fraction] 98 % Govea SALAM [facility] 01-17-2022 10:25-0400 Systolic blood pressure 158 mm[Hg] Govea SALAM [facility] 01-17-2022 10:10-0400 Diastolic blood pressure 64 mm[Hg] Govea SALAM [facility] 01-17-2022 10:10-0400 Heart rate 56 /min Govea SALAM [facility] 01-17-2022 10:10-0400 Respiratory rate 14 /min Govea SALAM [facility] 01-17-2022 10:10-0400 SaO2% (BldA) [Mass fraction] 100 % Govea SALAM [facility] 01-17-2022 10:10-0400 Systolic blood pressure 141 mm[Hg] Govea SALAM [facility] 01-17-2022 10:05-0400 Diastolic blood pressure 60 mm[Hg] Govea SALAM [facility] 01-17-2022 10:05-0400 Heart rate 57 /min Govea SALAM [facility] 01-17-2022 10:05-0400 Respiratory rate 14 /min Govea SALAM [facility] 01-17-2022 10:05-0400 SaO2% (BldA) [Mass fraction] 98 % Govea SALAM [facility] 01-17-2022 10:05-0400 Systolic blood pressure 131 mm[Hg] Govea SALAM [facility] 01-17-2022 09:56-0400 Body temperature 96.98 [degF] Govea SALAM [facility] 01-17-2022 07:50-0400 Blood Pressure Location Govea SALAM [facility] 01-17-2022 07:50-0400 Body temperature 98.06 [degF] Govea SALAM [facility] 01-10-2022 10:48-0400 Diastolic blood pressure 64 mm[Hg] Shi Sundeep [facility] 01-10-2022 10:48-0400 Mean blood pressure 95 mm[Hg] Shi Sundeep [facility] 01-10-2022 10:48-0400 Systolic blood pressure 158 mm[Hg] Shi Sundeep [facility] 01-10-2022 10:44-0400 Blood Pressure Location Shi Sundeep [facility] 01-10-2022 10:44-0400 Body temperature 97.34 [degF] Shi Sundeep [facility] 01-10-2022 10:44-0400 Diastolic blood pressure 73 mm[Hg] Shi Sundeep [facility] 01-10-2022 10:44-0400 Heart rate 51 /min Shi Sundeep [facility] 01-10-2022 10:44-0400 Systolic blood pressure 167 mm[Hg] Shi Sundeep [facility] 11-13-2021 00:00-0400 Diastolic blood pressure 68 mm[Hg] DO Adriana Tirado-Boncarbo Work Phone: [facility] 11-13-2021 00:00-0400 Heart rate 62 /min DO Adriana Tirado-Boncarbo Work Phone: [facility] 11-13-2021 00:00-0400 Respiratory rate 18 /min DO Adriana Tirado-Boncarbo Work Phone: [facility] 11-13-2021 00:00-0400 SaO2% (BldA) [Mass fraction] 100 % DO Adriana Tirado-Boncarbo Work Phone: [facility] 11-13-2021 00:00-0400 Systolic blood pressure 133 mm[Hg] DO Adriana Tirado-Boncarbo Work Phone: [facility] 11-12-2021 18:52-0400 Body height 144.78 cm DO Adriana Tirado-Boncarbo Work Phone: [facility] 11-12-2021 18:52-0400 Body temperature 98.1 [degF] DO Adriana Tirado-Boncarbo Work Phone: [facility] 11-12-2021 18:52-0400 Body weight 45.35 kg DO Adriana Tirado-Boncarbo Work Phone: [facility] 08-29-2021 10:00-0400 Body height 152.4 cm Clement Wood II Other [facility] [employer] Other 08-29-2021 10:00-0400 Body mass index (BMI) [Ratio] 20.5 kg/m2 Clement Wood II Other [facility] As Seen [facility] Other 08-29-2021 10:00-0400 Body weight 47.63 kg Clement Wood II Other [facility] As Seen [facility] Other 08-28-2021 00:00-0400 65 1 Adriana D Tirado-Boncarbo Work Phone: [facility] 250 DO Work Phone: Comment on above: [id number] 08-25-2021 12:25-0400 Body height 152.4 cm Eliecer Gray Other [facility] Other 08-25-2021 12:25-0400 Body mass index (BMI) [Ratio] 20.5 kg/m2 Eliecer Gray Other [facility] Other 08-25-2021 12:25-0400 Body temperature 97 [degF] Eliecer Gray Other [facility] Other 08-25-2021 12:25-0400 Body weight 47.63 kg Eliecer Gray Other [facility] Other 08-25-2021 12:25-0400 Diastolic blood pressure 67 mm[Hg] Eliecer Gray Other [facility] Other 08-25-2021 12:25-0400 Respiratory rate 16 /min Eliecer Gray Other [facility] Other 08-25-2021 12:25-0400 SaO2% (BldA) [Mass fraction] 96 % Eliecer Gray Other [facility] Other 08-25-2021 12:25-0400 Systolic blood pressure 141 mm[Hg] Eliecer Gray Other [facility] Other 06-07-2021 15:06-0500 Body height 149.86 cm Adriana Murphy Tirado-Boncarbo Work Phone: [facility] [employer] 250 DO Work Phone: 06-07-2021 15:06-0500 Body mass index (BMI) [Ratio] 21.61 kg/m2 Adriana Murphy Tirado-Boncarbo Work Phone: [facility] 250 DO Work Phone: 06-07-2021 15:06-0500 Body surface area Derived from formula 1.41 m2 Adriana Murphy Tirado-Boncarbo Work Phone: [facility] 250 DO Work Phone: 06-07-2021 15:06-0500 Body weight 48.54 kg Adriana Murphy [facility]ado-Boncar[facility] Work Phone: [facility] 250 DO Work Phone: 06-07-2021 15:06-0500 Diastolic blood pressure 62 mm[Hg] Adriana Murphy Tirado-Bon[facility] Work Phone: [facility] 250 DO Work Phone: 06-07-2021 15:06-0500 Heart rate 60 /min Adriana Murphy [facility]ado-[facility] Work Phone: [facility] 250 DO Work Phone: 06-07-2021 15:06-0500 Systolic blood pressure 125 mm[Hg] Adriana Murphy Tirado-Boncarbo Work Phone: [facility] 250 DO Work Phone: 03-05-2021 10:47-0500 Body height 149.86 cm Adriana Murphy [facility] Work Phone: [facility] 250 DO Work Phone: 03-05-2021 10:47-0500 Body mass index (BMI) [Ratio] 22.02 kg/m2 Adriana Katherine [facility]ado-[facility] Work Phone: [facility] 250 DO Work Phone: 03-05-2021 10:47-0500 Body surface area Derived from formula 1.42 m2 Adriana Murphy Tirado-Boncarbo Work Phone: [facility] 250 DO Work Phone: 03-05-2021 10:47-0500 Body weight 49.44 kg Adriana D Tirado-Boncarbo Work Phone: [facility] 250 DO Work Phone: 03-05-2021 10:47-0500 Diastolic blood pressure 66 mm[Hg] Adriana D Tirado-Boncarbo Work Phone: [facility] 250 DO Work Phone: 03-05-2021 10:47-0500 Heart rate 59 /min Adriana D Tirado-Boncarbo Work Phone: [facility] 250 DO Work Phone: 03-05-2021 10:47-0500 Systolic blood pressure 127 mm[Hg] Adriana D Tirado-Boncarbo Work Phone: [facility] 250 DO Work Phone: Encounters Encounter Date Encounter Type Care Provider Facility Start: 04-10-2023 ambulatory ADRIANA D TIRADO-EMERY Not Available Start: 03-04-2023 End: 03-04-2023 ambulatory SHREYA MILLS Not Available Start: 02-18-2023 End: 02-18-2023 ambulatory ADRIANA D TIRADO-EMERY Not Available Start: 02-11-2023 Office outpatient vi sit 15 minutes Eliecer Gray [facility] Start: 02-11-2023 End: 02-11-2023 ambulatory Eliecer Gray Facility:[facility] Start: 02-11-2023 End: 02-11-2023 ambulatory DO Adriana Tirado-Boncarbo Work Phone: [facility] Work Phone: Start: 02-11-2023 End: 02-11-2023 Departed Referred DO Adriana Tirado-Boncarbo Work Phone: [facility] Urgent Care 250 Start: 02-02-2023 End: 02-02-2023 ambulatory Adriana Tirado-Boncarbo Facility:[facility] Start: 02-02-2023 End: 02-02-2023 ambulatory DO Adriana Tirado-Boncarbo Work Phone: [facility] Work Phone: Start: 02-02-2023 End: 02-02-2023 Patient encounter procedure DO Adriana Tirado-Boncarbo Work Phone: [facility] Main [place] Work Phone: Start: 02-02-2023 End: 02-02-2023 Office outpatient visit 25 minutes Nick Wasserman MD Work Phone: [facility] Comment on above: Coronary artery dise ase involving igiugig coronary artery of igiugig heart without angina pectoris (Primary Dx); Essential hypertension, benign; Mixed hyperlipidemia; Nonischemic cardiomyopathy (CMS/HCC) Start: 12-18-2022 End: 12-18-2022 ambulatory Savanna Cassidy Other [facility] Other Start: 12-18-2022 Office outpatient vi sit 15 minutes Savanna Cassidy [facility] Start: 08-30-2022 End: 08-30-2022 ambulatory Luis Nolasco Other [facility] Other Start: 08-30-2022 Office outpatient vi sit 15 minutes Luis Nolasco [facility] Start: 05-14-2022 Chart Update Adriana Katherine Tirado-Boncarbo Work Phone: [facility] 250 DO Work Phone: Start: 03-06-2022 Office outpatient vi sit 15 minutes Adriana D Tirado-Boncarbo Work Phone: [facility] 250 DO Work Phone: Start: 03-06-2022 ambulatory Nick Wasserman II Facility: Start: 03-03-2022 End: 03-04-2022 ambulatory Jay E. Mourany Facility: [place] Start: 02-25-2022 ambulatory Adriana Billie Tirado-Boncarbo Facility: Start: 02-24-2022 End: 02-25-2022 ambulatory Jay E. Mourany Facility[facility] Start: 02-19-2022 End: 02-19-2022 ambulatory Jay E. Mourany Facility:[facility] Start: 02-04-2022 ambulatory Adriana Billie Tirado-Boncarbo Facility: Start: 02-04-2022 End: 02-05-2022 ambulatory Jay E. Mourany Facility:[facility] Start: 02-03-2022 End: 02-04-2022 ambulatory Jay E. Mourany Facility:[facility] Start: 01-17-2022 End: 01-18-2022 ambulatory Jeferson COPE Facility:[facility] Start: 01-17-2022 End: 01-17-2022 Patient encounter procedure Govea ANATOLIY [facility] Start: 01-13-2022 End: 01-14-2022 ambulatory Shi Urbano Facility:[facility] Start: 01-10-2022 End: 01-11-2022 ambulatory Shi Urbano Facility:[facility] Start: 01-10-2022 End: 01-11-2022 ambulatory Shi Urbano Facility:[facility] Start: 01-10-2022 Rx Renewal Adriana Tirado-Iván Work Phone: [facility] 250 DO Work Phone: Start: 01-10-2022 End: 01-10-2022 Patient encounter procedure Shi Urbano [facility] Start: 12-24-2021 ambulatory Adriana Billie Tirado-Boncarbo Facility: Start: 11-14-2021 ambulatory Shi Urbano Facili ty:[facility] Start: 11-12-2021 End: 11-13-2021 Emergency department patient visit DO Adriana Tirado-Boncarbo Work Phone: [facility] Start: 08-30-2021 Chart Update Adriana Murphy Tirado-Boncarbo Work Phone: [facility] 250 DO Work Phone: Start: 08-29-2021 End: 08-29-2021 ambulatory Clement Wood II Other [facility] Other Start: 08-29-2021 Office outpatient ne w 45 minutes Clement Julius II [facility] Start: 08-28-2021 ambulatory Adriana Tirado-Boncarbo Facility:[id number] Start: 08-25-2021 End: 08-25-2021 ambulatory Eliecer Gray Other [facility] Other Start: 08-25-2021 Office outpatient vi sit 15 minutes Eliecer Gray [facility] Start: 08-08-2021 Patient encounter procedure Adriana Changaver-Boncarbo Work Phone: [facility] 600 DO Work Phone: Start: 06-07-2021 Office outpatient vi sit 25 minutes Adriana D Tirado-Boncarbo Work Phone: [facility] 250 DO Work Phone: Start: 06-07-2021 ambulatory Adriana Wise Tirado-Boncarbo Facility: Start: 03-05-2021 Office outpatient vi sit 25 minutes Adriana D Tirado-Boncarbo Work Phone: [facility] 250 DO Work Phone: Start: 09-28-2020 Chart Update Adriana Murphy Tirado-Boncarbo Work Phone: WW-Mkwrkwfdebascswy-Ck [place] [facility] 450 DO Work Phone: Start: 09-24-2020 EUSANS, Provider: [place], Status: Pen, Time: 9:20 AM Adriana Murphy Tirado-Boncarbo Work Phone: BP-Auvffnvwrkodtejg-Rs stlaSeatwave [facility] 450 DO Work Phone: Start: 09-23-2020 Chart Update Adriana Murphy Tirado-Boncarbo Work Phone: NP-Jrtelxiucrhjbazs-Ns [place] [facility] 450 DO Work Phone: Procedures Date Procedure Procedure Detail Performing Clinician Start: 01-17-2022 Colonoscopy Jeferson COPE Comment on above: biopsies, diverticulosis Start: 11-12-2021 Computed tomography of abdomen and pelvis with contrast DO Adriana Tirado-Boncarbo Work Phone: Start: 07-06-2020 Esophagogastroduodenoscopy Shi diana Comment on above: Dr Brannon Arthroplasty of knee Adriana Murphy Tirado-Boncarbo Work Phone: Cholecystectomy Adriana D Tirado-Boncarbo Work Phone: Colonoscopy Shi Donaldsonmetz Comment on above: 2010 Esophagogastroduodenoscopy M taylor COEP Comment on above: normal, gastric biopsies Hysterectomy Adriana Murphy Tirado-Boncarbo Work Phone: Operation on bladder Adriana D Tirado-Boncarbo Work Phone: Procedure on back Adriana D Tirado-Boncarbo Work Phone: SARS Antigen (LFIA) DO Lynnr a Tirado-Boncarbo Work Phone: Total colonoscopy Adriana D Tirado-Boncarbo Work Phone: Urine culture DO Adriana Tirado-Boncarbo Work Phone: Plan of Treatment Date Care Activity Detail Author Start: 09-15-2023 End: 09-15-2023 Patient encounter procedure 09/15/2023 9:30 AM EDT Office Visit [facility] [address] [facility] [address] [place] [id number] Nick Wasserman MD [address] [place] [address] [facility] Start: 02-11-2023 Bacteria identified in Urine by Culture [facility] Start: 02-02-2023 End: 02-03-2024 Basic metabolic 2000 panel - Serum or Plasma Basic Metabolic Panel Lab Routine Nonischemic cardiomyopathy (CMS/HCC) Expected: 02/02/2023 (Approximate), Expires: 02/03/2024 [facility] Service Area Work Phone: Comment on above: Expected: 02/02/2023 (Approximate), Expires: 02/03/2024 Start: 02-02-2023 End: 02-03-2024 CBC panel - Blood by Automated count CBC Lab Routine Nonischemic cardiomyopathy (CMS/HCC) Expected: 02/02/2023 (Approximate), Expires: 02/03/2024 [facility] Work Phone: Comment on above: Expected: 02/02/2023 (Approximate), Expires: 02/03/2024 Start: 02-02-2023 End: 02-03-2024 Lipid 1996 panel - Serum or Plasma Lipid Panel Lab Routine Mixed hyperlipidemia Expected: 02/02/2023 (Approximate), Expires: 02/03/2024 [facility] Work Phone: Comment on above: Expected: 02/02/2023 (Approximate), Expires: 02/03/2024 Start: 10-28-2022 FUV, Provider: Nick Wasserman, Status: Pen, Time: 9:40 AM FUV, Provider: Nick Wasserman, Status: Rajiv, Time: 9:40 AM [facility] 250 DO Work Phone: Start: 03-06-2022 FUV, Provider: Nick Wasserman, Status: Rajiv, Time: 3:10 PM FUV, Provider: Nick Wasserman, Status: Pen, Time: 3:10 PM [facility] 250 DO Work Phone: Start: 02-25-2022 COVID-19 Vaccine (4 - Moderna series) COVID-19 Vaccine (4 - Moderna series) [facility] Start: 12-24-2021 FUV, Provider: Nick Wasserman, Status: Pen, Time: 11:20 AM FUV, Provider: Nick Wasserman, Status: Pen, Time: 11:20 AM [facility] 250 DO Work Phone: Start: 08-28-2021 STRESS NUC, Provider : MARI HHVI NUCLEAR 01,[id number], Status: Pen, Time: 12:00 PM STRESS NUC, Provider: MARI HHVI NUCLEAR 01,[id number], Status: Pen, Time: 12:00 PM -[facility] 600 DO Work Phone: Start: 06-07-2021 FUV, Provider: Nick Wasserman, Status: Pen, Time: 3:10 PM FUV, Provider: Nick Wasserman, Status: Pen, Time: 3:10 PM [facility] 250 DO Work Phone: Start: 11-23-2020 VIRNPVDARIEL, Provider : Estefanía Iyer, Status: Pen, Time: 9:30 AM VIRNPVHOME, Provider: Estefanía Iyer, Status: Pen, Time: 9:30 AM [facility] Work Phone: Start: 1964 DTaP/Tdap/Td Vaccine s (1 - Tdap) DTaP/Tdap/Td Vaccines (1 - Tdap) [facility] Start: 1942 Lipid panel Lipid Panel [facility] Start: 1940 Medicare Annual Wellness Visit Medicare Annual Wellness Visit (AWV) [facility] Start: 1940 Screening for osteoporosis Bone Density Scan [facility] Patient Education Dehydration, Adult (OR) [facility] Work Phone: Patient referral [facility] Work Phone: Immunizations Immunization Date Immunization Notes Care Provider Sheryl luevano 01-16-2023 Influenza, Seasonal, Quadrivalent, Adjuvanted Nick Wasserman MD Work Phone: [facility] 01-11-2022 Fluzone High-Dose Quadrivalent 0.7 ML Intramuscular Suspension Prefilled Syringe Adriana Murphy Nevigo [facility] 250 DO Work Phone: 12-31-2021 Pfizer COVID-19 Vac Bivalent 30 MCG/0.3ML Intramuscular Suspension Adriana Murphy Nevigo Work Phone: [facility] DO Work Phone: 10-18-2021 Prevnar 20 0.5 ML Intramuscular Suspension Prefilled Syringe Adriana Murphy Nevigo Work Phone: [facility] DO Work Phone: 04-03-2021 Moderna COVID-19 Vaccine 100 MCG/0.5ML Intramuscular Suspension Adriana Murphy Nevigo [facility] Work Phone: 02-26-2021 influenza, high dose seasonal, preservative-free Adriana Murphy [employer] Work Phone: [facility] DO Work Phone: 05-30-2020 Moderna COVID-19 Vaccine 100 MCG/0.5ML Intramuscular Suspension Adriana Katherine Nevigo Work Phone: [facility] Comment on above: Reason for Medicatio n: Other (see comment) 05-07-2020 Moderna SARS-CoV-2 Vaccination Nick Wasserman MD Work Phone: [facility] Work Phone: 05-02-2020 Moderna COVID-19 Vaccine 100 MCG/0.5ML Intramuscular Suspension Adriana Cruz Work Phone: [facility] Comment on above: Reason for Medicatio n: Other (see comment) 04-02-2020 zoster vaccine recombinant Adriana D Tirado-Boncarbo Work Phone: [facility] 250 DO Work Phone: 02-01-2020 zoster vaccine recombinant Adriana D Tirado-Boncarbo Work Phone: [facility] 12-30-2019 Fluzone High-Dose Quadrivalent 0.7 ML Intramuscular Suspension Prefilled Syringe Adriana Cruz Work Phone: [facility] 01-04-2019 influenza, high dose seasonal, preservative-free Adriana D Tirado-Boncarbo Work Phone: [facility] 12-18-2017 influenza, high dose seasonal, preservative-free Adriana D Tirado-Boncarbo Work Phone: [facility] NEGATED: Highlighted row has not occurred!01-10-2022 influenza virus vaccine, unspecified formulation Shi Urbano [facility] Payers Date Payer Category Payer Self-pay [id number] 2022 Medicare HUMANA MEDICARE HUMANA GOLD CHOICE [id number] 2022-Present [address] [address] [place] [address] [id number] 2020 Private Health Insurance [id number] [id number] 2019 Unknown 2019 Unknown [id number] 2.16.840.1.160955.19 1942 Unknown [id number] 2.16.840.1.452469.3.579.2 .727 1942 Unknown [id number] 2.16.840.1.966482.3.579.2 .72 1942 Unknown [id number] 2.16.840.1.336554.3.579.2 .727 1942 Unknown [id number] 2.16.840.1.496000.3.579.2 .72 1942 Unknown [id number] 2.16.840.1.515508.3.579.2 .72 1942 Unknown [id number] 2.16.840.1.427468.3.579.2 .72 1942 Unknown [id number] 2.16.840.1.659496.3.579.2 .72 1942 Unknown [id number] 2.16.840.1.965502.3.579.2 .72 1942 Unknown [id number] 2.16.840.1.082606.3.579.2 .72 1942 Unknown [id number] 2.16.840.1.960644.3.579.2 .1942 Unknown [id number] 2.16.840.1.818426.3.579.2 .356 1942 Unknown [id number] 2.16.840.1.790089.3.579.2 .356 1942 Unknown [id number] 2.16.840.1.871985.3.579.2 .356 1942 Unknown [id number] 2.16.840.1.785558.3.579.2 .356 1942 Unknown [id number] 2.16.840.1.840594.3.579.2 .356 1942 Unknown [id number] 2.16.840.1.326476.3.579.2 .356 1942 Unknown [id number] 2.16.840.1.511417.3.579.2 .1244 1942 Unknown [id number] 2.16.840.1.237079.3.579.2 .1259 1942 Unknown [id number] 2.16.840.1.282423.3.579.2 .1259 1942 Unknown [id number] 2.16.840.1.779748.3.579.2 .1259 Medicare [id number] Medicare Medicare [id number] Unknown [id number] 2.16.840.1.257995.3.579.2 .531 Unknown [id number] 2.16.840.1.800748.3.579.2 .531 Social History Date Type Detail Facility Start: 02-02-2023 Daily caffeine consumption Daily caffeine consumption -[facility] 250 DO Work Phone: Comment on above: tea and a dr. dunbar ; Start: 02-02-2023 Sex Assigned At N [facility] [employer] Other Start: 11-12-2021 End: 11-12-2021 Tobacco smoking status NHIS Never smoked tobacco (finding) [facility] Start: 1940 Sex Assigned At Female F [facility] Tobacco smoking status Never [facility] Start: 02-02-2023 Tobacco use and exposure Smokeless tobacco non-user [facility] Work Phone: Start: 02-02-2023 Alcohol intake Lifetime non-d arcelia (finding) [facility] Work Phone: Start: 1940 Sex Assigned At Not on file [facility] Work Phone: Start: 01-23-2023 End: 02-02-2023 Exposure to SARS-CoV-2 (event) Not sure [facility] Functional Status Date Assessment Result Facility 01-17-2022 Functional Status N/A [facility] 01-10-2022 Functional Status N/A [facility] Clinical Notes 08-25-2021 to [...] She understands and agrees with the plan. [facility] Other 10-30-2023 History of Present illness Narrative* [...] Rfl: Assessment/Plan 1. Coronary artery disease involving igiugig coronary artery of igiugig heart without angina pectoris Stable, I doubt progression based upon her symptoms (and lack thereof). 2. Essential hypertension, benign Well-controlled on current therapy 3. Mixed hyperlipidemia Well-controlled on current therapy 4. Nonischemic cardiomyopathy (CMS/HCC) No manifestations of heart failure detectable today. documented in this encounterAC[facility] Work Phone: [phone] 741-432710-30-2023 Instructions* Patient Instructions* Dante Jacob MA - [...] time of your visit. documented in this encounterAC[facility] Work Phone: [phone] 475-341709-14-2023 Evaluation note* Encounter Date Diagnosis Assessment Notes Treatment Notes Treatment Clinical Notes Dec, Arthritis of left knee (ICD-10 - M17.12) Patient was prepped and coritone was injected into the left knee under sterile conditions. Patient tolerated well with no adverse reactions. Activity as tolerate. [facility] Other 05-27-2023 Evaluation note* Encounter Date Diagnosis [...] Pt understood and agreed to treatment plan. [facility] [employer] Other 12-06-2022 NoteAdmission and Discharge Information Admitting [...] levels flattened. Cardiology consultation was placed at [facility] cardiology group Dr. Wasserman who patient [...] 73.9 % Lymph Auto - 12.3 % Taney Auto - 7.4 % Eos Auto - 3.6 % Basophil Auto - 2.8 % Neutro Absolute - 6.2 E9/L Lymph Absolute - 1.0 E9/L Taney Absolute - 0.6 E9/L Eos Absolute - [...] Est - 1+ U (more content not included)...[facility]: Result Comment: Electronically Signed By: Yolanda SALAS\.br\Date and Time Signed: 03/10/22 20:44 EST\.br\Electronically Co-Signed By: Pantera QUICK MD\.br\Date and Time Co-Signed: 03/11/2210:53 [id number] NoteMicrobiology PROCEDURE: Blood Culture Charcoal [R1] SOURCE: Blood BODY SITE: Arm R COLLECTED DATE/TIME: 02/24/2022 13:54 EST RECEIVED DATE/TIME: 02/24/2022 14:07 EST START DATE/TIME: 02/24/2022 14:07 EST FREE TEXT SOURCE: Jay Emery DO, DO, John FINAL REPORTS Final Report [] Verified Date/Time: 03/03/2022 18:00 EST No growth at 7 days. Performing Locations R1: This test was performed at: [facility], [address] [place] [address], [address] [place], [place] [address]Comment on above:Performed By: #### [id number] #### [address] [id number] NoteMicrobiology PROCEDURE: Blood Culture Charcoal [R1] SOURCE: Blood BODY SITE: Arm L COLLECTED DATE/TIME: 02/24/2022 13:44 EST RECEIVED DATE/TIME: 02/24/2022 14:08 EST START DATE/TIME: 02/24/2022 14:08 EST FREE TEXT SOURCE: IV Jay Jarrett DO, DO, John FINAL REPORTS Final Report [] Verified Date/Time: 03/03/2022 18:00 EST No growth at 7 days. Performing Locations R1: [facility], [address] [place] [address], [address] [place], [place] [address]Comment on above:Performed By: #### [id number] ####[facility] [address] [place] [address] [id number] NoteHOSPITAL REGULATIONS: All Positive and Important Negative [...] a surgery isunclear to me. ALLERGIES:Percocet, Darvocet, Rockport, Oxycodone. PSYCHOSOCIAL HISTORY:Nonsmoker, nondrinker. FAMILY HISTORY:Diabetes, heart disease, lung cancer. REVIEW OF SYSTEMS:Otherwise negative, normal and noncontributory. PHYSICAL EXAMINATION: Vital signs: An ill appearing female. She is uncomfortable and moves slowly. Her blood pressure bge960/66, pulse 64, respirations 16, temperature 36.8, weight [...] with you during the patient's acute hospitalization. Jaime Wasserman M.D. young Dictated: 02/26/2022 [id number] Transcribed: 02/26/2022 cc:Adriana Cruz D.O.[facility] HospitalComment on above: Result Comment: Electronically Signed By: Lisy ERIC, Nick Fernandez\Date and Time Signed: 02/27/22 14:23 [id number] NotePT Evaluation done this date. Pt. with on AM-PAC this date. She is safe and independent with all functional activities with no further PT needs.[facility]11-[facility] Note Chief Complaint Had hernia repair [...] 14.1 gm/dL (02/24/22 13:44:00) Hct: 39.5 % (02/24/22 13:44:00) MCV: 87.4 fL (02/24/22 13:44:00) MCH: 31.2 pg (02/24/22 13:44:00) MCHC: 35.7 gm/dL (02/24/22 13:44:00) RDW: 13.4 % (02/24/22 13:44:00) Platelet: 295 E9/L (02/24/22 13:44:00) MPV: 8.3 fL (02/24/22 13:44:00) Neutro Auto: 73.9 % (02/24/22 13:54:00) Lymph Auto: 12.3 % Low (02/24/22 13:54:00) Taney Auto: 7.4 % (02/24/22 13:54:00) Eos Auto: 3.6 % (02/24/22 13:54:00) Basophil Auto: 2.8 % High (02/24/22 13:54:00) Neutro Absolute: 6.2 E9/L (02/24/22 13:54:00) Lymph Absolute: 1 E9/L (02/24/22 13:54:00) Taney Absolute: 0.6 E9/L (02/24/22 13:54:00) Eos Absolute: [...] (02/24/22 14:55:00) UA C (more content not included)...[facility] HospitalComment on above: Result Comment: Electronically Signed By: Yolanda SALAS\.br\Date and Time Signed: 02/24/22 21:25 EST\.br\Electronically Co-Signed By: Yolanda SALAS\.br\Date and Time Co-Signed: 02/24/22 21:27 EST\.br\Electronically Co-Signed By: J Carlos KEN MD\.br\Date and Time Co-Signed: 02/25/22 07:18 [id number] Notegeneral surgery interval progress note: S.81 y/o [...] with the patient and her daughter, [facility] Comment on above:Result Comment: Electronically Signed By: Jannet ERIC, Jay Tamayobr\Date and Time Signed: 02/24/22 14:56 [id number] NoteHistory and Physical Update H&P Reviewed. Patient [...] mg= 1 mL, IV Push, q5min, PRN Rockport 325 mg-5 mg oral tablet, 1 tab(s), [...] disease: Father. Primary malignant neoplasm of lung: Sister.[facility]11-02-2022 [id number]:[address] [place], [place] 6107810-17-2022 [id number]:[address] [place], [place] 6107810-14-2022 Evaluation + Plan noteExtracted from: Title:ANEHelena POSTOP Author:Eliecer Pennington DO Date: 01/17/22 Plan Transfer/ Discharge: Patient can be discharged from PACU when criteria met. Condition good. Extracted from: Title:[facility] PREOP ENDO NOTE Author:Waylon Pennington DO Date:01/17/22 Plan [place] [employer]esthesiologists (ASA) physical status classification: [...] Date:02/03/2022 10:20:00 AM Scheduled Provider:Jay Power MD Location:[facility] Appointment Type:[address]10-14-2022 Hospital Discharge instructions Patient Education 01/17/2022 [...] what activities are safe for you. Take sqox-lll-kkxdggo and prescription medicines only as told by [...] 09/21/2012 Document Revised: 09/14/2018 Document Reviewed: 08/23/2018 [place] Patient Education 2020 [employer]. 01/17/2022 10:08:02 Colonoscopy, Care After Surgery Salam (CUSTOM) Colonoscopy Care After Surgery Please read the instructions outlined below and refer to this sheet in the next few weeks. These discharge instructions provide you with general information on caring for yourself after you leave thehospital. Your doctor may also give you specific [...] unsweetened, w/added ascorbic acid 1 cup 0.5 Loudoun 1 cup 0.7 Vegetables Cooked Green beans 1 cup 4.0 Carrots 1/2 cup sliced 2.3 Peas 1 cup 8.8 Potato (baked, with skin) 1 medium potato 3.8 Raw Loyal (with peel) 1 cucumber 1.5 Lettuce 1 [...] 8.7 Peanuts 1/2 cup 7.9 Chart from [facility] SoftBase 2013. SEEK IMMEDIATE MEDICAL CARE IF: You [...] Nutrient Database for Standard Reference. Available at http://www.Vidavee.usda.gov/fnic/foodcomp/search/. Information adapted from: [facility] Patient Information 2010 [employer]. Specialist [employer] Global 2012 http://www.Quarterly/contents/oqolytkjeshv-rzftxwt-uedjvt-the-basics Follow Up Care 01/10/2022 12:34:05 With:Jeferson COPE Address: [address] [place] [address]. [address] [place] [address] [facility] (1) When: Unknown Comments:office will call for follow up [facility]10-07-2022 Hospital Discharge instructions Patient Education 01/10/2022 [...] find a support group online or in yourlds hospital community. General instructions Take huyk-fgj-nyimmhx and prescription medicines only as told by [...] International Foundation for Functional Gastrointestinal Disorders: iffgd.org [employer]: patients.gi.org Contact a health [...] restrictions, lifestyle changes, and skin care. Take julf-vyz-ubdsteo and prescription medicines only as told by [...] 03/04/2005 Document Revised: 08/05/2018 Document Reviewed: 08/05/2018 [place] Patient Education 2020 [employer]. 01/10/2022 10:49:37 Colonoscopy, Adult Colonoscopy, Adult A [...] including vitamins, herbs, eye drops, creams, and lmdu-tps-sfmsojm medicines. Any problems you or family members [...] 03/20/2001 Document Revised: 01/13/2018 Document Reviewed: 06/03/2016 [place] Patient Education 2020 [employer]. Follow Up Care 11/13/2021 10:56:24 With:Shi Urbano CNP Address: When:1 to 2 weeks [facility] 05-26-2022 Evaluation note* Encounter Date [...] consider an injection in the left knee. [employer] Other 05-22-2022 Evaluation note* Encounter Date Diagnosis [...] Pt understands and agrees with the plan. [employer] Other Evaluation + Plan note Future Appointments Appointment Date:02/24/2022 12:30:00 PM Scheduled Provider: Location:[facility] Appointment Type:Surgery FT Future Scheduled Tests Laboratory* Fecal WBC Lactoferrin 01/10/22 * Giardia lamblia, Direct Detection EIA 01/10/22 * O & P Exam, Routine 01/10/22 * Clostridium difficile by PCR 01/10/22 * Enteric Panel by PCR 01/10/22 [facility] Evaluation noteNo assessment information available [facility] Work Phone: Evaluation note* Diagnosis Coronary artery disease involving igiugig coronary artery of igiugig heart without angina pectoris- Primary Essential hypertension, benign Mixed hyperlipidemia Nonischemic cardiomyopathy (CMS/HCC) Other primary cardiomyopathies documented in this encounter [facility] Work Phone: History general Narrative - Reported* Type Description Date Medical History high cholesterol Medical History high blood pressure Medical History ND Medical History asthma Surgical History right knee repacement Surgical History gall bladder Surgical History hysterectomy Surgical History carpal tunnel release Hospitalization History [facility] As Seen on TV Other History of Present illness Narrative* Patient [...] other recommendation for changes in medical therapy. -[facility] 250 DO Work Phone: History of Present [...] which appears to be adequate and appropriate. [facility]: History of Present [...] which appears to be adequate and appropriate. [facility] Work Phone: History of Present [...] no change and she will [facility] Work Phone: Hospital course Narrative No data available for this section [facility] Discharge instructions Additional Instructions Increase your intake of fluids. Take Zofran as prescribed for nausea. Follow-up with your primary care physician for reevaluation in 3 to 5 days.[facility] Work Phone: Progress note No data available for this section [facility] Reason for referral (narrative)* Consultation (Routine) - Authorized Specialty Diagnoses / Procedures Referred By Silvano brown Referred To Contact Cardiology Diagnoses Essential hypertension, benign Procedures Follow Up In Cardiology Nick Wasserman MD [address] [place] [address] 2, Dequan [address] [place] [address] Nick Wasseramn MD [address] [place] [address] 2, [address] [place] [address] Referral ID Status Reason Start Date Expiration Date V isits Requested Visits Authorized [id number] Authorized 02/02/2023 02/02/2024 1 1 [facility] Work Phone: Summary Purpose Family History No [...] section and content) DATE CREATED AUTHOR 04/09/2019 [facility] DATE CREATED AUTHOR AUTHOR'S ORGANIZ ATION 11/20/2020 [facility] DATE CREATED AUTHOR AUTHOR'S ORGANIZ ATION 09/01/2021 [facility] DATE CREATED AUTHOR AUTHOR'S ORGANIZ ATION 10/25/2021 [facility] dical Specialist DATE CREATED AUTHOR AUTHOR'S ORGANIZ ATION 03/07/2022 [employer] DATE CREATED AUTHOR AUTHOR'S ORGANIZ ATION 03/11/2022 That{img} [facility] DATE CREATED AUTHOR AUTHOR'S ORGANIZ ATION 04/01/2022 [facility] DATE CREATED AUTHOR AUTHOR'S ORGANIZ ATION 02/03/2023 [facility] DATE CREATED AUTHOR AUTHOR'S ORGANIZ ATION 02/20/2023 [facility] DATE CREATED AUTHOR AUTHOR'S ORGANIZ ATION 03/21/2023 [facility] DATE CREATED AUTHOR AUTHOR'S ORGANIZ ATION 04/11/2023 [facility] Me dical Specialists EPIC REASON FOR VISIT (unrecogniz ed section and content) Reason Comments Follow-up 6m Care Teams (unrecognized sec tion and content) Team Status: Active Member Role Status Dates Adriana Cruz DO Primary Care Provider Active Team Status: Inactive Member Role Status Dates Adriana Cruz , Primary Care Provider Active Nick Wasserman MD Attending Provider Active Team Status: Inactive Member Role Status Dates Adriana Cruz DO Primary Care Provider Active Misbah Greenwood DO Emergency Provider Active [employer] Solution Architect Relationship Specialty Start Date End Date Adriana Cruz DO [address] [facility], [place] [address] PCP - General 09/17/20 Team Status: Inactive Member Role Status Dates Adriana Cruz DO Primary Care Provider Active Eliecer Gray , MOLD DESIGNER-C Attending Provider Activ e Goals (unrecognized section [...] BE BASED ON THE PRIMARY CLINICAL RECORDS. [facility]. provides no warranty or guarantee of the accuracy or completeness of information in this document.
[2023-04-14] MEDS: LIDOCAINE HCL 10 ML, SODIUM BICARBONATE 1 MEQ INJ (10:59)
[2023-04-14] MEDS: 0.9 % SODIUM CHLORIDE 500 ML, LIDOCAINE HCL 20 ML, SODIUM BICARBONATE 10 MEQ INJ (11:00)
== END 2023-04-14 10:19 | disposition home or self-care (01) ==
LOC: VC 10:18
PROVIDERS: PCP Radiology Diagnostic Radiology; Visit Provider Radiology Diagnostic Radiology
DX: I83.813 Varicose veins of bilateral lower extremities with pain (principal)
CPT/HCPCS: 36478

== ENCOUNTER 2023-04-17 12:21 | Outpatient (OUT) | payer MEDICARE, OTHER, SELFPAY ==
--- NOTE | 2023-04-17 12:23 | VEIN_ITS ---
Patient Name: ADINA PERRY MR#: [id number] : 1940 Exam Date: 04/17/2023 Ordering Doctor: DR JESUS ADAM M.D. RADIOLOGY REPORT PROCEDURE: [facility] - OFFICE VISIT FOLLOW UP [facility] PROGRESS NOTES: The patient reports minimal tenderness of the right leg following intravenous laser ablation of the right great saphenous vein. The patient has worn her compression stocking. The patient did not require oral analgesics. The patient has tried exercise within the limits of the winter weather. Physical exam demonstrates a 3 cm area of bruising mid distal right medial thigh likely related to tumescence injection. The incision is sealed. No erythema or warmth to suggest cellulitis or thrombophlebitis. The thrombosed right great saphenous vein can be palpated. Review of the ultrasound performed the same day demonstrates occlusive thrombus extending throughout the treated right great saphenous vein with heat induced thrombus 2.0 cm from the saphenofemoral junction. The patient expressed a desire to proceed with treatment of varicose veins with micro foam chemical ablation. VEIN/[facility] EST LMTD IMPRESSION: 1. Successful ablation of the right great saphenous vein 2. Persistent 8 incompetent bilateral varicose veins. PLAN: Micro foam chemical ablation varicose veins Nurse notes, history and physical were reviewed and confirmed, see attached forms. The nurse was present throughout the physical exam and consultation Dictated by: Jesus Adam MD on 04/17/2023 at 12:54 Approved by: Jesus Adam MD on 04/17/2023 at 12:56
--- NOTE | 2023-04-17 12:23 | VEIN_ITS ---
Patient Name: ADINA PERRY MR#: [id number] : 1940 Exam Date: 04/17/2023 Ordering Doctor: DR JESUS ADAM M.D. RADIOLOGY REPORT PROCEDURE: VC EXT VENOUS RT LMTD COMPARISON: None. INDICATIONS: Phlebitis of superficial veins of rt lower extremity I80.01 TECHNIQUE: Lower extremity patel scale and Duplex Doppler evaluation of the deep venous system from the inguinal ligament through the calf veins. FINDINGS: REGION: Right lower extremity. THROMBI: Negative for DVT. Heat induced thrombus visualized 2.0cm from the SFJ. The heat induced thrombus extends from groin to proximal calf. COMPRESSIBILITY: Non-compressible segments corresponding to thrombus FLOW: Areas of no flow corresponding to thrombus CONCLUSION: Post ablation occlusion of the of the right great saphenous vein with heat induced thrombus 2 cm from the saphenofemoral junction Dictated by: Jesus Adam MD on 04/17/2023 at 12:42 Approved by: Jesus Adam MD on 04/17/2023 at 12:43
--- OUTSIDE RECORDS SUMMARY | 2023-04-17 12:24 | XMS_ITS | CCD ---
Author Name Unknown Address [address] [place] [address] Organization [facility] Care Team Providers Care Appointment Scheduler Name Role Phone Adriana Cruz Unavailable [phone] Unavailable Unavailable Clement Madrid II Unavailable Eliecer Gray Unavailable DO Adriana Cruz Primary Care Provider [phone] DO Misbah Greenwood Emergency Provider [facility] Primary Care Physician [phone] Shi Urbano Attending Unavailable Shi Urbano Admitting [...] Jeferson Attending Unavailable SALAM, Jeferson Admitting Unavailable Tirado-Jackson, Adriana Billie Primary Care Unava ilable Tirado-Jackson, Adriana Billie Primary Care Unava ilable McGuinn II, Nick Garduno Attending Unav ailable McGuinn II, Nick Garduno Attending Unav ailable Triado-Jackson, Adriana Billie Primary Care Unava ilable McGuinn II, Nick Garduno Referring Unav ailable Tirado-Jackson, Adriana Billie Primary Care Unava ilable McGuinn II, Nick Garduno Referring Unav ailable McGuinn II, Nick Garduno Attending Unav ailable Tirado-Jackson, Adriana Billie Primary Care Unava ilable Tirado-Jackson, Adriana Billie Primary Care Unava ilable McGuinn II, Nick Garduno Attending Unav ailable Luis Nolasco Unavailable Savanna Cassidy Unavailable Tirado-Jackson DO, Adriana Billie Primary Care Provi octavio Tirado-Jackson, DO Adriana Primary Care Provider MD Nick Wasserman Attending Provider NICK WASSERMAN Attending Unavailable TIRADO-EMERY, ADRIANA BILLIE Primary Care Unava ilable Tirado-Jackson, DO Adriana Primary Care Provider MD Nick Wasserman Attending Provider LIT Gray Attending Provider Tirado-Jackson, Adriana Primary Care Unavailable Nick Wasserman Admitting Unavail able Nick Wasserman Attending Unavail able Eliecer Gray Attending Unavaila ble Tirado-Jackson, Adriana Primary Care Unavailable Eliecer Gray Admitting Unavaila ble TIRADO-EMERADRIANA Jimenez Attending Unavailab le TIRADO-EMERY, ADRIANA D Referring Unavailab ADRIANA Berry Referring Unavailab IRMA Chinchilla Attending Unavailable SHREYA MILLS Attending Unavailable Allergies Allergy Classification Reported Allergen(s) Allergy Type Date of Onset Reaction(s) Facility (4 sources) HYDROcodone; Translations: [hydrocodone] Drug Allergy 2 [facility] (5 sources) oxyCODONE; Translations: [oxyCODONE] Drug Allergy 2 [facility] (2 sources) Acetaminophen / oxyCODONE; Translations: [acetaminophen-ox ycodone] Drug Allergy Nausea (finding) [facility] Comment on above: All pain meds EXCEPT Morphine. Patient is able to take Morphone. (1 source) Acetaminophen / HYDROcodone; Translations: [[place]] Drug Allergy [facility] (1 source) Acetaminophen / oxyCODONE; Translations: [Percocet] Drug Allergy [facility] (1 source) Darvocet-N 100; Translations: [Darvocet-N 100] Propensity to adverse reactions (disorder) [facility] Medications Current Medications Medication Drug [...] 1 EA, Refill(s) 0, Prior to colonoscopy., [address] #24, 150, cm, 01/10/22 10:48:00 EDT, Height/Length [...] [Coronary atherosclerosis of unspecified type of vessel, stebbins or graft] Onset: 3 02-02-2023 Chronic Deficiency [...] Test Name Value Interpretation Reference [facility] ADINA PERRY ([id number]) 1940 F Date Time Provider Department 02/20/23 NO ONE (HISTORICAL) REFPHY During your visit today, we recorded the following information about you: Alanis Castillo 02/20/2023 6:39 AM Addendum Patient: Adina Perry Date of : 1940 Patient phone number: [phone] Referring Provider for the encounter: Irma Angel APRN Requesting Provider: Vascular Surgery Reason for requesting visit (RFV/signs and symptoms/diagnosis): 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 Person calling: caregiver: Alanis Return call to: self Medical Records/Insurance Card scanned into [employer]: Yes Comments: This was Routed Incorrectly Allergies As of Date: 02/20/2023 Noted Allergy Reaction OXYBUTYNIN 10/13/2018 14 - Other: See Comments Comments: Severe dry mouth Date Reviewed: 02/21/2020 Reviewed by: Telma Reddy ([place]) - Fully Assessed Reason for Visit: External [...] Status:Closed by ALANIS CASTILLO on 02/20/23 Normal [facility] Urinalysis - DIPSTICKon 11-0 Appearance (U) cloudy [employer] Other Bilirubin Ql (U) Negative [employer]tv Other Color (U) yellow [employer] Other Glucose Ql (U) Negative [employer] Other Hemoglobin Ql (U) small [employer] FND Other Ketones Ql (U) Negative [employer] Other Leukocyte esterase Test strip Ql (U) large [employer] Other Nitrite Ql (U) Positive [employer] Other pH (U) 5.0 [pH] [employer]aris Other Protein Ql (U) trace [employer] Other Specific gravity (U) [Rel density] 1.025 [employer] Other Urobilinogen (U) [Mass/Vol] 0.2 mg/dL [employer] Other Urinalysis - DIPSTICK [employer] Other Urine Cultureon 02-11-2023 Bacteria identified Cx Nom (U) ORGANISM: Escherichia coli (O:ESCCOL) Holloway Count >100,000 Aerobic DYLAN Charge (NMIC56) SUSCEPTIBILITY [...] RESISTANT TO ALL B-LACTAM DRUGS. PERFORMED BY: [place] [address] PATHOLOGIST ENVIRONMENTAL WEB CRAWLER RENAN CAIN M.D. [facility] Comment on above: Performed By: #### C UU #### [address] Basic Metabolic Panelon 10-3 -2022 Anion gap [Moles/Vol] 11.0 mmol/L Normal 6.0-15.0 [facility] Comment on above: Performed By: #### L IPID, BMP, CBC #### [facility] [address] [place] [address] [place] Calcium [Mass/Vol] 10.1 mg/dL Normal 8.6-10.3 [facility] Comment on above: Performed By: #### L IPID, BMP, CBC #### [place] [address] [place] Chloride [Moles/Vol] 107 mmol/L Normal 98-107 [facility] Comment on above: Performed By: #### L IPID, BMP, CBC #### [facility] [address] [place] [address] [place] CO2 [Moles/Vol] 26.4 mmol/L Normal 21.0-31.0 [facility] Comment on above: Performed By: #### L IPID, BMP, CBC #### [facility] [address] [place] [address] [place] Creatinine [Mass/Vol] 1.34 mg/dL High 0.60-1.20 [facility] Comment on above: Performed By: #### L IPID, BMP, CBC #### [facility] [address] [place] [address] [place] GFR/1.73 sq M.predicted MDRD (S/P/Bld) [Vol rate/Area] 40.085 mL/min/{1.73_m2} Normal [facility] Comment on above: Performed By: #### L IPID, BMP, CBC #### [facility] [address] [place] [address] [place] Glucose [Mass/Vol] 91 mg/dL Normal 70-100 [facility] Comment on above: Result Comment: [facility] Glucose Reference Range is dependent on time and content of last meal. Glucose of more than 200 mg/dL in a nonstressed, ambulatory subject supports the diagnosis of Diabetes Mellitus. ADA recommended reference range Performed By: #### L IPID BMP, CBC #### [facility] [address] Potassium [Moles/Vol] 4.4 mmol/L Normal 3.5-5.1 [facility] Comment on above: Performed By: #### L IPID, BMP, CBC #### [facility] [address] [place] [address] [place] Sodium [Moles/Vol] 140 mmol/L Normal 136-145 [facility] Comment on above: Performed By: #### L IPID BMP, CBC #### [facility] [address] [place] [address] [place] Urea nitrogen [Mass/Vol] 23 mg/dL Normal 7-25 [facility] Comment on above: Performed By: #### L IPID, BMP, CBC #### [facility] [address] [place] [address] [place] Basophils Auto (Bld) [#/Vol] Ordered By: Nick Wasserman on 02-02-2023 Basophils (Bld) [#/Vol] 0.0 10*3/uL 0.0-0.2 [facility] Basophils/100 WBC Auto (Bld) Ordered By: Nick Wasserman on 02-02-2023 Basophils/100 WBC (Bld) 0.4 % . [facility] Calcium [Mass/volume] in Ser um or PlasmaOrdered By: Nick Wasserman on 02-02-2023 Calcium [Mass/Vol] 10.1 mg/dL 8.6-10.3 [facility] Carbon dioxide, total [Moles /volume] in Serum or PlasmaOrdered By: Nick Wasserman on 02-02-2023 CO2 [Moles/Vol] 26.4 mmol/L 21.0-31.0 [facility] Chloride [Moles/volume] in S kobi or PlasmaOrdered By: Nick Wasserman on 02-02-2023 Chloride [Moles/Vol] 107 mmol/L 98-107 [facility] Cholesterol [Mass/volume] in Serum or PlasmaOrdered By: Nick Wasserman on 02-02-2023 Cholesterol [Mass/Vol] 170 mg/dL 140-200 [facility] Comment on above: Chol less than 200 m g/dl low riskChol 201-239 mg/dl borderline riskChol 240 mg/dl and greater high risk Cholesterol in LDL Calc [Mas s/Vol]Ordered By: Nick Wasserman on 02-02-2023 Cholesterol in LDL [Mass/Vol] 89 mg/dL 0-100 [facility] Comment on above: LDL ATP III CLASSIFI CATIONLDL less than 100 mg/dL OptimalLDL 100-129 mg/dL Near or above optimalLDL 130-159 mg/dL Borderline highLDL 160-189 mg/dL HighLDL greater than 189 mg/dL Very high Cholesterol in VLDL Calc [Ma ss/Vol]Ordered By: Nick Wasserman on 02-02-2023 Cholesterol in VLDL [Mass/Vol] 25 mg/dL [facility] Complete Blood Count Auto Di ffon 02-02-2023 Basophils (Bld) [#/Vol] 0.0 10*3/uL Normal 0.0-0.2 [facility] Comment on above: Result Comment: PERF ORMED BY: [place] [address] PATHOLOGIST ENVIRONMENTAL WEB CRAWLER RENAN CAIN M.D. Performed By: #### L IPID, BMP, CBC #### [address] Basophils/100 WBC (Bld) 0.4 % Normal . [facility] Comment on above: Performed By: #### L IPID, BMP, CBC #### [address] Eosinophils (Bld) [#/Vol] 0.3 10*3/uL Normal 0.0-0.45 [facility] Comment on above: Performed By: #### L IPID, BMP, CBC #### [address] Eosinophils/100 WBC (Bld) 3.4 % Normal . [facility] Comment on above: Performed By: #### L IPID, BMP, CBC #### [address] Erythrocyte distribution width (RBC) [Ratio] 13.0 % Normal 11.9-15.3 [facility] Comment on above: Performed By: #### L IPID, BMP, CBC #### [address] Hematocrit (Bld) [Volume fraction] 37.3 % Normal 34.0-46.4 [facility] Comment on above: Performed By: #### L IPID, BMP, CBC #### [address] Hemoglobin (Bld) [Mass/Vol] 12.5 g/dL Normal 11.8-15.4 [facility] Comment on above: Performed By: #### L IPID, BMP, CBC #### [address] Lymphocytes (Bld) [#/Vol] 1.4 10*3/uL Normal 1.00-4.8 [facility] Comment on above: Performed By: #### L IPID, BMP, CBC #### [address] Lymphocytes/100 WBC (Bld) 16.6 % Normal . [facility] Comment on above: Performed By: #### L IPID, BMP, CBC #### [address] MCH (RBC) [Entitic mass] 30.9 pg Normal 24.7-34.3 [facility] Comment on above: Performed By: #### L IPID BMP, CBC #### [address] MCV (RBC) [Entitic vol] 91.8 fL Normal 80-100 [facility] Comment on above: Performed By: #### L IPID BMP, CBC #### [address] Mean Corpuscular HGB Conc 33.6 g/dL Normal 32.0-35.0 [facility] Comment on above: Performed By: #### L IPNGOZI BMP, CBC #### [address] Monocytes (Bld) [#/Vol] 0.8 10*3/uL Normal 0.0-0.8 [facility] Comment on above: Performed By: #### L IPID BMP, CBC #### [address] Monocytes/100 WBC (Bld) 9.0 % Normal . [facility] Comment on above: Performed By: #### L IPNGOZI BMP, CBC #### [address] Neutrophils (Bld) [#/Vol] 6.1 10*3/uL Normal 1.8-7.7 [facility] Comment on above: Performed By: #### L IPID BMP, CBC #### [place] [address] [place] Neutrophils/100 WBC (Bld) 70.6 % Normal . [facility] Comment on above: Performed By: #### L IPID BMP, CBC #### [address] NRBC% 0.0 /100{WBC} Normal 0-0.5 [facility] Comment on above: Performed By: #### L IPID BMP, CBC #### [address] [place] [address] [place] Platelet mean volume (Bld) [Entitic vol] 8.2 fL Normal 6.3-10.7 [facility] Comment on above: Performed By: #### L IPID, BMP, CBC #### [facility] [address] Platelets (Bld) [#/Vol] 296 10*3/uL Normal 150-450 [facility] Comment on above: Performed By: #### L IPID, BMP, CBC #### [facility] [address] RBC (Bld) [#/Vol] 4.07 10*6/uL Normal 3.60-5.00 [facility] Comment on above: Performed By: #### L IPID, BMP, CBC #### [facility] [address] WBC (Bld) [#/Vol] 8.6 10*3/uL Normal 3.8-11.6 [facility] Comment on above: Performed By: #### L IPID, BMP, CBC #### [facility] [address] Creatinine [Mass/volume] in Serum or PlasmaOrdered By: Nick Wasserman on 02-02-2023 Creatinine [Mass/Vol] 1.34 mg/dL 0.60-1.20 [facility] Eosinophils Auto (Bld) [#/Vo l]Ordered By: Nick Wasserman on 02-02-2023 Eosinophils (Bld) [#/Vol] 0.3 10*3/uL 0.0-0.45 [facility] Eosinophils/100 WBC Auto (Bl d)Ordered By: Nick Wasserman on 02-02-2023 Eosinophils/100 WBC (Bld) 3.4 % . [facility] Erythrocyte distribution wid th Auto (RBC) [Ratio]Ordered By: Nick Wasserman on 02-02-2023 Erythrocyte distribution width (RBC) [Ratio] 13.0 % 11.9-15.3 [facility] Glucose [Mass/volume] in Ser um or PlasmaOrdered By: Nick Wasserman on 02-02-2023 Glucose [Mass/Vol] 91 mg/dL 70-100 [facility] Comment on above: ADA recommended refe rence rangeRandom Glucose Reference Range is dependent on time and content of last meal. Glucose of more than 200 mg/dL in a nonstressed, ambulatory subject supports the diagnosis of Diabetes Mellitus. Hematocrit Auto (Bld) [Volum e fraction]Ordered By: Nick Wasserman on 02-02-2023 Hematocrit (Bld) [Volume fraction] 37.3 % 34.0-46.4 [facility] Hemoglobin [Mass/volume] in BloodOrdered By: Nick Wasserman on 02-02-2023 Hemoglobin (Bld) [Mass/Vol] 12.5 g/dL 11.8-15.4 [facility] Leukocytes [#/volume] correc sergey for nucleated erythrocytes in Blood by Automated counOrdered By: Nick Wasserman on 02-02-2023 WBC corrected for nucl RBC Auto (Bld) [#/Vol] 8.6 10*3/uL 3.8-11.6 [facility] Lipid Panelon 02-02-2023 Cholesterol [Mass/Vol] 170 mg/dL Normal 140-200 [facility] Comment on above: Result Comment: Chol less than 200 mg/dl low risk Chol 201-239 mg/dl borderline risk Chol 240 mg/dl and greater high risk Performed By: #### L IPID, BMP, CBC #### [facility] [address] Cholesterol in HDL [Mass/Vol] 56 mg/dL Normal 23-92 [facility] Comment on above: Result Comment: HDL CHOL ATP-III CLASSIFICATION Cardiovascular Risk HDL > or equal to 60 mg/dL LOW HDL < 40 mg/dL HIGH Performed By: #### L IPID, BMP, CBC #### [facility] [address] Cholesterol.total/Cho lesterol in HDL [Mass ratio] 3.0 {ratio} Normal <5.0 [facility] Comment on above: Result Comment: PERF ORMED BY: [facility] [address] [place] [address] PATHOLOGIST ENVIRONMENTAL WEB CRAWLER RENAN CAIN M.D. Performed By: #### L IPID, BMP, CBC #### [facility] [address] LDL Cholesterol,Calculate d 89 mg/dL Normal 0-100 [facility] Comment on above: Result Comment: LDL ATP III CLASSIFICATION LDL less than 100 mg/dL Optimal LDL 100-129 mg/dL Near or above optimal LDL 130-159 mg/dL Borderline high LDL 160-189 mg/dL High LDL greater than 189 mg/dL Very high Performed By: #### L IPID, BMP, CBC #### [facility] [address] Triglyceride w/Reflex 127 mg/dL Normal 0-149 [facility] Comment on above: Result Comment: TRIG ATP III CLASSIFICATION TRIG less than 150 mg/dL Normal TRIG 150-199 mg/dL Borderline high TRIG 200-500 mg/dL High TRIG greater than 500 mg/dL Very high Standard traceable to the Center for Disease Conrtrol and Prevention (CDC) test method. Performed By: #### L IPID, BMP, CBC #### [facility] [address] [place] [id number] [facility] VLDL CHOLESTEROL 25 mg/dL Normal [facility] Comment on above: Performed By: #### L IPID, BMP, CBC #### [facility] [address] Lymphocytes Auto (Bld) [#/Vo l]Ordered By: Nick Wasserman on 02-02-2023 Lymphocytes (Bld) [#/Vol] 1.4 10*3/uL 1.00-4.8 [facility] Lymphocytes/100 WBC Auto (Bl d)Ordered By: Nick Wasserman on 02-02-2023 Lymphocytes/100 WBC (Bld) 16.6 % . [facility] MCH Auto (RBC) [Entitic mass ]Ordered By: Nick Wasserman on 02-02-2023 MCH (RBC) [Entitic mass] 30.9 pg 24.7-34.3 [facility] MCHC Auto (RBC) [Mass/Vol]Or dered By: Nick Wasserman on 02-02-2023 MCHC (RBC) [Mass/Vol] 33.6 g/dL 32.0-35.0 [facility] MCV Auto (RBC) [Entitic vol] Ordered By: Nick Wasserman on 02-02-2023 MCV (RBC) [Entitic vol] 91.8 fL 80-100 [facility] Monocytes Auto (Bld) [#/Vol] Ordered By: Nick Wasserman on 02-02-2023 Monocytes (Bld) [#/Vol] 0.8 10*3/uL 0.0-0.8 [facility] Monocytes/100 WBC Auto (Bld) Ordered By: Nick Wasserman on 02-02-2023 Monocytes/100 WBC (Bld) 9.0 % . [facility] Neutrophils Auto (Bld) [#/Vo l]Ordered By: Nick Wasserman on 02-02-2023 Neutrophils (Bld) [#/Vol] 6.1 10*3/uL 1.8-7.7 [facility] Neutrophils/100 WBC Auto (Bl d)Ordered By: Nick Wasserman on 02-02-2023 Neutrophils/100 WBC (Bld) 70.6 % . [facility] No Panel InformationOrdered By: Nick Wasserman on 02-02-2023 Estimated GFR (CKD-EPI) 40.085 mL/Min [facility] Creatinine Clearance (Chem N/A [facility] Nucleated erythrocytes [Pres ence] in Blood by Automated countOrdered By: Nick Wasserman on 02-02-2023 Nucleated RBC Auto Ql (Bld) 0.0 /100{WBC} 0-0.5 [facility] Platelet mean volume Auto (B ld) [Entitic vol]Ordered By: Nick Wasserman on 02-02-2023 Platelet mean volume (Bld) [Entitic vol] 8.2 fL 6.3-10.7 [facility] Platelets Auto (Bld) [#/Vol] Ordered By: Nick Wasserman on 02-02-2023 Platelets (Bld) [#/Vol] 296 10*3/uL 150-450 [facility] Potassium [Moles/volume] in Serum or PlasmaOrdered By: Nick Wasserman on 02-02-2023 Potassium [Moles/Vol] 4.4 mmol/L 3.5-5.1 [facility] RBC Auto (Bld) [#/Vol]Ordere d By: Nick Wasserman on 02-02-2023 RBC (Bld) [#/Vol] 4.07 10*6/uL 3.60-5.00 [facility] Serum or plasma anion gap de terminationOrdered By: Nick Wasserman on 02-02-2023 Anion gap [Moles/Vol] 11.0 mmol/L 6.0-15.0 [facility] Serum or plasma high density lipoprotein (HDL) cholesterol measurementOrdered By: Nick Wasserman on 02-02-2023 Cholesterol in HDL [Mass/Vol] 56 mg/dL 23- [facility] Comment on above: HDL CHOL ATP-III CLA SSIFICATION Cardiovascular RiskHDL > or equal to 60 mg/dL LOWHDL < 40 mg/dL HIGH Serum or plasma total choles terol/high density lipoprotein (HDL) cholesterol mass ratOrdered By: Nick Wasserman on 02-02-2023 Cholesterol.total/Cho lesterol in HDL [Mass ratio] 3.0 {ratio} <5.0 [facility] Sodium [Moles/volume] in Ser um or PlasmaOrdered By: Nick Wasserman on 02-02-2023 Sodium [Moles/Vol] 140 mmol/L 136-145 [facility] Triglyceride [Mass/volume] i n Serum or PlasmaOrdered By: Nick Wasserman on 02-02-2023 Triglyceride [Mass/Vol] 127 mg/dL 0-149 [facility] Comment on above: TRIG ATP III CLASSIF ICATIONTRIG less than 150 mg/dL NormalTRIG 150-199 mg/dL Borderline highTRIG 200-500 mg/dL High TRIG greater than 500 mg/dL Very highStandard traceable to the Center for Disease Conrtrol and Prevention (CDC) test method. Urea nitrogen [Mass/volume] in Serum or PlasmaOrdered By: Nick Wasserman on 02-02-2023 Urea nitrogen [Mass/Vol] 23 mg/dL 7-25 [facility] WBC Auto (Bld) [#/Vol]Ordere d By: Nick Wasserman on 02-02-2023 WBC (Bld) [#/Vol] 8.6 10*3/uL 3.8-11.6 [facility] Coding Summary.on 03-11-2022 Coding Summary. [id number] Gh0bWw +PGhlYWQ+TP0DBZAnK27roBGhe K0KD5oSPA8XLOYPMHTBZE8IMK9 xyDZ6XWtwH8BlalDp OsyvnFTqXP86ZPy4DQB2dKodVZ qcbI3ukLDpR3i0HjGiYE75wB64 AGoqXWGzFfW4QlMpolburLSm F3akQbOblMYfBht+PHRhYmxlIH ogNCCmBGfqNUTnAvOefDzdGZ5r Zh7hHCCtNBYghEynfVAlLnSy g1cjYWNuSByvLQ1rlGdlU0QtdF N0MUFca1u0Kd41fUR+PHRkIHN0 uSksAEbti108MhTta6exIQB2 vIWzBThqVYZ2C72lo8R2LFFvLQ XtMIU0hNA3mX6jeQfksskyU0Xt eQTlRvF3JUE4aDRtrW5evUle yyjlvM1rXbz+F70KHF4ZTXYQLA 2FOua1Q8YeXhtjiSE+GO49FMVm WM04tUKguACkh5ckyFo3NzMg UPYiDFW8xDegZSfgp1YwRVYmP4 4waJRzk5A0NGExjSvwcONnBoOc jVW5uX3xWLirfafrk5clcwhb Uwvnm1szad30pW25D76rABufXC SfUVR9AUApWDWdzVlbww0owY5m Ii8+XLfli9dvl3zawPh1QjPu WAWsfnUsiOelHKT5u6IwPe23O3 OqcJfag1ZzDbg3zk55lUIui1C7 iMJ0RXzqJRQuvT4nWPtkJfV8 CKHaRkHpkQ92wLSzKRarCf5kiX ebkIhcOC5nYGFjtbqtBRKuhC5o GUNrcJLelZmzHI0uQVWdhunv b563YuOuGDE6GVWffTYtV3YlpM 0xNaTeLJFbITLtJ6KnmXRoIYbp I823JExxLgQ9LXRydpDfQ5Dt VZIqwBzxEeC7u6W6Tr0Ru9Mzkg lxMMF5JZhyASSiWyC8KxNdLfZ7 W2GeLwe7YDEtiYxaND3wX7Ud IOJaqhazdjlmeVE5SOCoZRKueP 05qGXzWJvtEy4qe7Q2m948AWGq BYXtvZ91Ts7egUycUJQgmIKL cN2ehjrwe7ukignvXsNhBBIgXO h4XUa3IXCgyKclFvLqRMD3ZfI2 SVB8rJSyxA7cqLydibdfpY7r Oyc+X31keZ3pLAP7QJZ3boekEL AplrMbSV57OA73L2EtDyaeqOGg bGU+WKUjvoYlxMbbJV3tVhPr p0khb5LvGXjwY5PoUKTvINaiSl w0UXPhDJH2rFZ9hH7hAOUaJZqt v0Z0wLE3B3JgziVqpu8ju5bf WFAqGUtzF46yrKEhi0Z0VJXtfP O6RGPftLysXyCiiR56Ahj+PGNv oCvuw9UnEtfpn3wxs7obmYj2 HoDuTAPmnpRcsYsrMTU9b4EePu 02A73pNAgzFBVqKCZnHCRqMONs cVkhas6keG9uBc5+PGNvbCB3 dVH9cC5zSZStEvY2QNyuA091Kt HgoARiFcarl9ihv7feeBv0IbAz CSOhiwIxgTqjYQD2v1VsJz65 J77vCXebJLEwELPfWYBrOAElrA ugyb8yxH1cAb8+EE8ur9jogj44 wN31ePA+CZKaCPW8jFrhEDyo RJJrlD9oOMqgOlE9LIYcMwPklC 39eEAaIBabXd1ccNlyhGveLF3p SHNtzitgr308WtEya1evSZQk vMMxSOlxRQE9P46zc4U7POYtPF YgXWK4pGB7dN7voLanmsywsXWe mWctafEjiYwlLKweXVowO924 IHRvcDsnPlBhdGllbnQgTmFtZT i5A6UbZeg0POYipZdaNB1ujSWv JAolPg7ngYuumNniGA9nBAFz clfrf737XmIkf8zlWJOhfDUwVC hnKLN0S99tx8D0DAUdAUYeINX2 zUF2gA1taZctvpwglTOyaDly ipZowYkdAIroQCdkG305PZEesM tmTkEcloWpHZWwpGT9JK40OK31 rIGzh4P8fFM8Z8ZkNVYlloqc gterbTE7IKAjDGLjzH58Kh7fxV qpSd8kCRJwCZP0XETekPQyD9Uz mP4nCjNhWCFkCKLeD7FfcIKc SKhnG654QCthMqA3PXBdpwCdK3 JcDJNioYfiUjG7z2E1Be5UP6N6 BC95IC45hLTkv2K0uIS6X0Dv TDPgolpdwvimsTQ1FCZvTZUnxN 89Bo8mmHxeGq3oBTTdWVB1FUNy mBUfR3IvrH4xXnEuNQMkNKUk J0GxkNJaMJvzM328LYedTtI7ET XwkaIqD3PfLBPwmAlcOyW2a4O1 Fg0NHRt6QA37DR73pVMxs8K1 eIK6G6KsOXUvvqfyiwypbVE1RI KhWHVfwX07Uv9reFuxFw6yGWAs RRT9RTAywPDnZ9ZvgE3jFjXk IWKbDBKdX4FluSRbSGzvA537AN ndTnK3ZQHgrcTlO6OeVMZkoUnq EpG6j6C3Xp4GNGZwWJ72LMI1 tDT3LN46ZK89Z2NyDeqzjJGvtH U+PHRhYmxlIHdpZHRoPScxMDAl WiYbsBwxVX1aEc3eIBLeQEXo sYrhdPJoNpJwz5imTSRyXMnzWE 7phHggK7IohZX1OPXse7x2Hs71 C85tC4UgcFN+ZCCmjVT1bVD8 sM2yMtJnBtR5SNugJ012QzKkoJ DgYgkuv1fsi3wdsYc4YeW9SOBa ezPisDdrCYE3t1TjFn92I71p IHdpZHRoPSIxNSUiIHZhbGlnbj 4ddD6gPh0+CPLckUV4aVA5zJ0d ZcIgMyR0CEpeO324MdTctQIo Zbeso2gfq4cndVj6VwJkEGKkwo IyoCspXDD1h2EhMx33D0NbzYjl g7QoIhh6ge56bBAto4N0lNF1 J8BeHYZaxmjbqETrqWlnNC5nBM MuxnvmEDNxtO0wWBRdR4v2CdQb DlS1HRckA3CrfoT6HOBixLBz TUrsQLU5N81zk2M5FZVrHQFnLC X6vYR6tH5geLrbwthlyGJljUje mnCskFowGZbaBCybD309QJXf hWvbEBNojA0lCNYvxGOljElhPN 3qIVRcfxqoFmHOL7YVI6XbZMQE VFOMO4mSIX27XR62lLRjr9G6 xVZ1U8AxIAWwyljrurhxtFA3HB FwUQGcpM33uDRbFAvbVx9ks5B6 e563PJBaLRChwP51Ro6oxCge SXTylZWUkI1haywrm3vooqgaIb BzEFXdHPh1HHb5NSZfxNuyDbCq HUB5YqO5OAN9lEXbbW7loEgh mfzgnJ1kNvi+DEKpKTGjNYc2Gx wvdGQ+CPNtYHM1lUkxAUogDZYy wU6bTWDpC2u4CrEwDfP3TAxq Z1HoZRUdsqrjEi22rH7oIpNcAv N6KDukT3QwhsC4LFLnpHAcLSwi GKD4Q24nt3C1EBBnJSHjIJQ8 oBE6oU8pmEsdofenjIQauTrtad TfpZrcCLipNFkqS565BPQfxOzg Ojo1YGwzQOPlEW63PR01gHZo j2M5nQP7E3JbBITngvtfcegqaO K3NDOmAOPhqG89zDDdGIueDh1o t7W1r579SVGwDCNjkG12Uh0z xVrwCWCwaEUZxW6dmmvgc0xqxc zfIdZqPFFaTXx2LLp7BKXvwZym BdEjIKN4SeO4VSI9iREulY1u wBoybszigN8tDfd+RmVtYWxlPC 17WJ36bVIka2V6gTU4X8AwQLNj pjclnlknyWK0CYFgGJXwoF60 aDRkEHntZy7uf8F9j071YUFeUE PplA29Dp7rmYmnJFZomCMJiW6v uftar9rbfozdIyUtDNPwWLs0 DIi1LUOaaPvbNzAxWNH6LaA3PL F0tYDjeC8tpHguwgywoF2dSju+ M9MfLLK8ZEFvl557O1JlRcpv dHI+ZX02DITnEG82bSWfqASht5 klfAg7YdDaGOHdNBT2jUtcKSyp z6ZvAJGvA96wbDQdx1N9ZKYi rPkwbPTfTjYlbOA0wR9uEZpenz gba9yempglZvhzt3zkbd65nE71 P90sJGqxXEQdKJGpVPAaHQHc cDrcqj4hfQ8lCa0+EGDfeFN3uV P1wU4wBhYqJwI2CUvoR369KbIp zDWpNbnku9ndg4kayGb3TuNf SQEoieRwbQftEPZ2m3EdLg31Z0 9sIHdpZHRoPSIyMCUiIHZhbGln mt6apD7dNw7+MZ6pv4xxea39 xR40fMR+LETtUKW9uDltDTjvAT ZaxT1aLFupSyC4GYNxJuDubQ63 xQSoNQyfEi4njQokqSglZP3p NMQijaoeg909WrQhr9jcOKXlpM FyJXuxLKZ1O82gk6Y6VRAuOQAi IMZ4aCT0cI7ueWokfksepWYx uAipzzMwmQtgEVrlDMlqD033OA UnyNxtRkSgdXDjB2dyxlOIJF2h OjwvdGQ+RKVhEFR8tSycVDks MUQzkV1qRGOzR1a5YpShSgT7CU ggU3VegjG1YRGyuSSvSNCrwPKW fY2agxohd6ugpaipZqHpCYSg WZk3ZCq5SWTkwTvhQtZhBDD4Bv J4NQW5yYNoeB5uwLrjlrikyA5v Oyc+RklOOjwvdGQ+PHRkIHN0 vIvsUBmdVRQbfD7yKJLhX8w0Jh GgKpY9PRurJ6GtfzY3SGTppXXy CHKtqQQUbP9mxjepo7jvqrnc NzCxTYNpYDo1OIu0SPYtqUnvSp NrZLC2MmI0PJP9zRHirA8bxLpa tqqyaI6gYej+TVJOOjwvdGQ+ NXAwJMY2cBxeITkvRONlvC9lPK MfM7n5XpFeJwP4HPjtB4RcqoF8 CYSueJPyTVVjzOXFmY6qxnkk g0phrgliPjFyJOPbRUt9DEp6BU QjpMpxIaKgLGJ2GzQ4ZTR7tOFr jE5xkUmamlcmtC3jDil+UGF5 IAD7QT69ZC10Z6VuNwuzgNLceW U+PHRhYmxlIHdpZHRoPScxMDAl DeNfaUdyTZ2iIl6uCRRyEKVw bGxh (more content not included)... Normal [facility] Office Visit (Cardiology)on 03-06-2022 Follow-up visit [...] Vital Signs Recorded: 06Mar2022 03:48PMRecorded: 06Mar2022 03:25PM Jnpunsmr577, LUE, Ryudwhd157, LUE, Sitting Tyqqxroyh80, LUE, Gfdyzuj96, LUE, Sitting Heart Rate66, L Radial Height4 ft 9 in Hnxaae940 lb BMI Ucvzjnopdt53.37 kg/m2 BSA Calculated1.38 Tobacco Useb) No Falls [...] Mar 06 2022 4:39PM EST (Author) Normal [employer] Tobacco Screening.on Fall risk assessment a) No falls within the last year [facility] y 250 DO Work Phone: Tobacco use status [facility] b) No [facility] y 250 DO Work Phone: IntraOperative Documentson 1 05-04-2021 IntraOperative Documents [id number]:127 Normal [facility] General Surgery Office/Clini c Noteon 03-03-2022 [...] Martinez to record this visit. ANA M counterintelligence specialist and provider reviewed before signing. ANA [...] list Allergies Percocet (Nausea) Darvocet-N 100 (vomiting) [place] (Vomiting) oxyCODONE (Vo (more content not included)... Normal [facility] Comment on above: Result Comment: Elec [...] Locations R1: This test was performed at: [facility], [address] [place] [address], [facility] , , [facility] Comment on above: Performed By: #### 2 [id number], [id number] #### [facility] [address] [place] [address] Coding Summary.on 02-25-2022 Coding Summary. CD:[id number] Gh0bWw +PGhlYWQ+BT1MJJMrG98hiPAkh I5WW5aLTN9KQBPPFAEPCV0NLT7 jzQM9FWzmK5EcprUk SusuqFVuXT73ZRs8AXM4pEigSE gonZ9kyUMnL8o0IsCjGV11mQ22 KHdjPAMqKfB5JdAdnetfdJFn C8nuIgMuzHDqMhd+PHRhYmxlIH rmUPLfKDkuTNMeByObwBnbKT9q Mb2zLDLmJUJvuLmdjAFbZuLa d5srMOHjHUemBA5lbCkhP9XdzH C9OKLmm1j4Tk68rCS+PHRkIHN0 vAumLEfha103OhInk5jbWQU8 pEEeFAxiORP5Z22mx2M3VVIkGP WjHSH0cGL1yN3pdIscbsajB7Il oTQbYtY4VIN6lQMhqR6euTch oughuH1xLvh+N15LQH8NLEJJOK 4IZjj7P3ZzPpgboVW+VO26OLIg FV82vMHmuPHpb0xqgWv4BmWe VBIsZSG3wGdwQDeqk0PvFJTsH1 3ixRWcd6P8ANYoeVjabZTbUpCi rMR3vP8wGNwbbgssv6hmlezp Hyari5xacc88cW27E69tLOadMK SuLOJ9GNWsJBCngAfnxo5zvX1u Ii8+FAeiw5pxz2gnoNa8FbJo LHHjsnCztDvbYYG0t7NwDn45A8 LokEyjj9FtPdm7tf64iTIfp8U2 gHQ3MSibPVZhpY0mNJfzKsK0 BHYfYeFcvZ28fJJkXUkgZi3ffP gzmGnlCP7gLGUmvpwqACLhzX4a NKJuoFIfdXgdFO3sKEMsggwi y483IdBnFSO9WQHbeFQaH6RsoL 2eXlCzYQNlSQEkC1SzgWZsJSec A561YUuiXmR2MXOaqjHoU6Lm FINedKkqQjJ1u2G3Wu2Aw9Tskv lqGFL7ZNlmMOMrPyQiJnHcLgM6 N7WfErd8CCKvnRloIS5dJ9Wc NZExziiiiwlrdFC2JCUzDVNtqB 29uLVhLCmkWj8hc2B4j046VFOr JSKsyI49Gr2jeVrlAXEinFRC wV6ujqroo2nvdibyFrQaQKNjWN u7OEy0XHUwrLeqUjOnUUQ1ZxQ1 FGD6rKMydF6wrLaquynzbN1a Oyc+K07sjE5mVMH3VAH6spsgDZ VfbrQtKE45JH35Y6DpHltkqXVw bGU+LURcwdQmpOsmDK5nOiDn u8idd3QyWNtvJ4GvZSZzUKatIw g0ZHIwFXE1zRW7sE3cUUYpVBgc n3U2sVI0C4UxhfBejm9ik4vm PRXpPMftH92arCEgv9O4VSZxfK B2XBBemHjcUmCxbY98Bfe+PGNv bSspp9MtSrgqq9vye0eelIr9 VyRbGNDtnhBrpAjyZDV5v6DpZj 64F66vEFwfQKWsEEYpKTOkAMVq kUysfv2gtA6bJl4+PGNvbCB3 mJN0pV4mYUYuBwR4CKfvX895Ai WnxCKiMgsjt7pis9qrhJm7HrPd XSHecgXfzEjmELO3e8DqBx89 W55nSUnnMHDyMVFhVGKqGUSsiQ wxrt7wiV0aJm0+XZ6qv4oesa75 eS64xEL+QTDfCJZ1dUteBNep FNThoE0hNIlbYbK1PLKnMbFvlZ 02pRPdGEwbNb9rwJhccYyjEZ9p SWIonwmrv721IaAnl0fyQWLt hRJyCApgBET8X96ch1H2UIDeDM QvSPV3xVQ9iP1crMghaskwuDGh pOimgmCanTgjBKrvAZvaM686 IHRvcDsnPlBhdGllbnQgTmFtZT u6E1StRmr7RXPreQpbBM7ryFWy ETuxSx6hwMyanOplLS4yPQCn itond798MsUto3kwUXRyaMIbZJ nxLCA4R65hu6U7QXYtZVTnWMI9 nRV0bL2dkKdmvxnafQUwlIvz kiLnxRupYNbbUEsdX549HKLjhP pzWsUtwlKmLISpkBN2DD62AD14 mRWue6R5zKY1P7TbWIBzbmxh gawvbTH9THMiLHKgtJ65Si1fwJ zlOq1fIMGbURV0VECkgDNcP1Kg wV4mNrIpGGBbOVZaS8AsaIFm TBhwF889XVahIbK8RJBrckBuH1 JeEPWizOknEfG7k0U7In0PO9W4 SY76YU08kGCin0U9qPC4S3Sb TNGkqifxcluqeEJ7JREqRBEhoU 64Gv8alGfwBl9gJVRbNSE7PKDn gGXqU0BtuM7hVnEhWHIeRGVo H6GbxAZySVrbK911WLywWsR3XF MnjaSrZ5GbMRXrlFuiOxO2j0C2 Qg3DNEw0MV78BQ18oGFvm1T9 mYD9Y8SzLXQnxavgurvfoMB4YZ SvXSGpmQ34Sx7jvTsqVf1nYFUb DCN0RNSzfBScP1GhkA3aPjSp FBLpVAKvG9JyfPWmSKrwC333WO zsKaW0PAFhwlVsI5UlRUHiyHyw HgX5n8L2Tf4ESHKfHT74ION2 uEE8JP78CM38B4MeMatbmPMsnK U+PHRhYmxlIHdpZHRoPScxMDAl KaYpbRsnFR7oIv0cFTBxOMAq vGzkzIGlKrRgs0slTLOqFPdzVN 5syRvdK2IrlGX3IVHdv9p2Au02 U09gG7FymYJ+BRShsXE7iYU1 xB0tMeVxYbD5WViwG704DaBewI QpMpppq8enz0qtsBj8VjZ1GIBo xnPxlAebOYE4e7PqSo66F29s IHdpZHRoPSIxNSUiIHZhbGlnbj 7xgL0kNq7+KGYquPN9oUF0jD1l HxWcHuY6KGwhS108GdVqwTTo Bikro2exe5xwrQf2DvWtHNYotc GqlLuyWRS4d0PzLv09C1EakYbs d0IbZlg5jm77bGNbb5E6pIF8 R5PeCDSqysmrbBDwtCxyXD1fZX EkqkodSZFptQ2bDQImU1p8EbUq JkH0KKooY1XgxfC7SMKefFOm XWmxLMR0I70tj3D2GYUsRRLtUP M3hPP1vA2xsMyzkkzhiBFliHjc uzEstTyvBIwtMMfgO428THCv aWmoEICopB1gBDUmqHPwnAzgPS 8vBVJbzfkrLtFKS8OBH0QcMXWH OCXRP9dGNY19UQ30uAUis1D6 vWW3M5MzWFEovpcdufuptTW6QW UoLKBpsU66wEDsONyfZz7wj1K4 p944SOHgSXCimC17Hn3lqOjt TWCekSCHaX1visxvf6yqlagsLk FcURQaEIv6IHn4PUTwkUvaLvFq RMG6PrD4ALW1iVLhmV6cxDmd euzrfB1lBnf+QZSoLFJmRGn0Ob wvdGQ+IGFwVHQ5xByuKOprGJCc mB0hHQQpE3q8MoVeLiQ8JSst T4FpNFOrqdieFy74cK6eDtJkXn Q5JAngO8ZyjlS1VJAddRPnEMkn ODD0L40le6N8SZPpYXGnAKZ6 uMS3oQ1eiUchkcbrdHVnzWwoyx LznKziGApaGEhjB093PBOrvCvp Nii4NOusUENpRH62EC27pECn f2P9rUQ6V2VsJSElqebnddalgG K1RJRvVVPxyE74tTGjBNyhXm6g x5B1j169UVFwWDMueT22Ol4t hOpvUXMudJGCsK1tcwllz2krtp hvOyIoEWOaNAz2OKb3QLXwsKdi PaYuUFO3JsX6VOU2nEKymF4p gUoxibduxW9kOap+RmVtYWxlPC 72HT43kJBvt0J9nIX5H7EaKVKb wdndfkbahTQ4YFHjONIjnW99 mVQmDYimVn3lf9W6j062TVTtGB DilN05Yr2baXzkXVJlwXEMvW2p agldd6eqpuxvKnMfSMGwQDy7 GLc5GAOoiWwlPtDfYTH6WeS6LU V4fKSciV3zvMywklcstU6sIrb+ RS0juAessV0doG2SAH1oHJIs zJVVsSVmGWF5KH56NT44G3KfXn wvdGFibGU+PHRhYmxlIHdpZHRo ZItdXFXpIsWsgVaxWH6iQd5z DEUoLKBiiLwfsKWwEmCjf9cuCF TgXJpsBF2kiAozQ0PrjTC1UZDg o8q2Xv02R70uZ2KpkRR+PGNv fSQ9tVE1wU5jMcWbQyM1QNiuI4 74TjBtbTBcKfvzj2jcj8tkuSy0 AjJtQQYnbeKthVysTPF5n3Jy Es65Q15dJRnrVJMqASSzQTNvKP ValGdcra7joI3hNy5+PGNvbCB3 cDU4yL9aEpWnSsA1UJeqC541 FrMhwSApSjouP04hH2JstHE+PH PjOml7WMWrgGkkDP1qpWHpDYkz Sz2xSPV7EvPpAbYrCBouR8Dn YOTbmjwiwiwcjSQ0IDOpPVUvxL 58Au9zwGfpDv8hEMDhGHY6CLCj rIJaD2PszE9lRiGxDJBiQIGn U0BdzTXrRWxtN000JWxkXwN0WQ GtquBmB8FzSJLcmGvwLtW8g2H4 Ea5KbHekwOIoUD5dSjQeREn7 I4QbOzd9PHBxfRguXP7aqVQtML enSh5qpAfdxFqpXD9zWHCjxkzn s739LeFtc3klTFEqaUViSHtf NFM6Q75ez9H1GXKtPGVdUAZ8aP I0qZ0lmFnehwlldKHmuWuoolBc uXpyTIwdBNpwH259CFCrvFhz OmOZQvp1T8GgIaz7MRFlgEuyJN 9udDKbOVanWj3lmAstoBryYT1o NASmmoqlh949WjDfu9suYARs oSSsFLzxGTR3G46ag8K5MJIgEJ IyHNC5oNX4tP1qaDwuywyqzDQt iDrijoJgrKdxXXxtLGywE394 EEWwaEsyOy2JIou0K7SgQtp4YY BnyMagEG4npEVpANmjWo6tgPnr tVrvEE6yDLOuxxylv991KoEg e7slKBFpgASxNLoeXLF4A77qn0 P7PWQrKXYtBMN7cHY9aA5wlRjg bjogbGVmdDsgdmVydGljYWwt VZpxV056MWBeaZrcDlBpaFDhBg wvdGQ+EL18xy90O0DwRxsbVli1 ZVBkUCN1cGJ8qR9zTWHlZBtl c3R5 (more content not included)... Normal [facility] Consultation Noteon 02-26-20 Consultation Note Patient: [...] STABLE AND NO WORK UP NEEDED Normal [facility] Comment on above: Result Comment: Elec tronically Signed By: Lisy ERIC, Nick Cheema\poppy\Date and Time Signed: 02/25/22 14:40 EST Discharge Instructionson Discharge Instructions [id number]:127 Normal [facility] Inpatient Clinical Summaryon 02-25-2022 Inpatient Clinical Summary [address] [address] Clinical Summary Person Information: Name: ADINA PERRY Age: 81 Years : 1940 Sex: Female PCP: ADRIANA CRUZ DO Marital Status: Race: White Ethnicity: Non- or Language: Japanese Visit Id: Visit Reason: Fatigue; Post surgical problem; ABD PAIN, ABNORMAL CARDIAC ENZYME LEVEL Speciality: Acuity: Enc Type: Observation Med Service: Medical Arrival: 02/24/2022 13:07:19 Discharge: Dispo Type: Admitted as IP to this Hosp Address: [address] [place] [address] [address] [place] [phone] Provider Notes: Diagnosis: 1:Abdominal pain; 2:S/P hernia [...] Percocet (Nausea) Darvocet-N 100 (vomiting) oxyCODONE (Vomiting) [place] (Vomiting) Measurements: Height: 146 cm Weight: 49.7 [...] Consulting Physician: Jannet ERIC, Jay Lock; Mary Aayla MD Referring Physician: Follow up: With: Address: When: ADRIANA TIRADORADHA [address], [facility] [address] [place] [id number] [facility] () 03/10/2022 11:00 AM Comments: Appointment will be with the ELECTRONIC SECURITY TECHNICIAN With: Address: When: Jay Power 03/03/2022 9:00 AM Comments: Call for followup appointment 2-3 weeks or if already scheduled keep appt. Type Location Start [facility]ish State Post Op 15 [facility] 03/03/2022 9:00 AM 03/03/2022 9:20 AM Confirmed Patient Education Information: Weakness; Abdominal Pain, Adult, Pxdw-ox-Fgqt Normal [facility] Inpatient Patient Summaryon 02-25-2022 Inpatient Patient [...] Pending Diagnostic Test Results None Pharmacy Information [facility] Previously Scheduled Follow-Up Appointments Thursday 9:00 AM EST With: Jannet ERIC, Jay Lock Where: [facility] General Surgery [facility] Inpatient Patient Summary ADINA PERRY :1940 [...] Test Results None Pharmacy Information [facility] Previously Scheduled Follow-Up Appointments Thursday 9:00 AM EST With: Jannet ERIC, Jay Lock Where: [facility] General Surgery [facility] Inpatient Patient Summary [place] [id number] Patient Discharge Instructions PERSON INFORMATION Name: ADINA [...] Follow up: With: Address: When: ADRIANA CRUZ [address] [place] [address], [address] [phone] [facility] () 03/10/2022 11:00 AM Comments: Appointment will be with the ELECTRONIC SECURITY TECHNICIAN With: Address: When: Jay Power 03/03/2022 9:00 AM Comments: Call for followup appointment 2-3 weeks or if already scheduled keep appt. In the event that this physician does not participate in your insurance network, please consult with your insurance company to find a nearby participating provider. Type Location Start [facility] Post Op 15 [facility] 03/03/2022 9:00 AM 03/03/2022 9:20 AM [...] By Mouth every day. Pharmacy Information: [facility] Comment: PATIENT EDUCATION INFORMATION Instructions: [...] ? Stre (more content not included)... Normal [facility] Interdisciplinary Note - Reji e Manageron 02-25-2022 Interdisciplinary Note - Malter Operator CRM to room to discuss DC planning. Patient is alert, oriented and participates in DC planning. Patient is from home alone, has good family support. Patient daughter will transport at DC. Patient PCP, home DME and insurance reviewed. Patient is observation for abdomen pain and abnormal cardiac markers. Patient had a CT of abdomen and chest, see reports. Patient was rounded on by [facility], CRM waiting for updates. Patient is getting IVF. She is pending consults of gen sx, and cardiology. Patient was evaluated by PT/OT and they have no recs. Patient denied need for HH or PT. Patient provided CRM contact information, white board updated. Patient anticipated DC later today or 02/26. CRM following Normal [facility] Comment on above: Result Comment: Elec [...] safely and independently once medically stable. Normal [facility] Main OR Intraoperative Recor don 02-25-2022 Main OR Intraoperative Record Normal [facility] Monitor Recordon 02-25-2022 Monitor Record [id number]:127 Normal [facility] Monitor Record [id number]:127 Normal [facility] Postoperative Documentson Postoperative Documents [id number]:127 Normal [facility] Troponin 9 Hr.on 02-25-2022 Troponin I.cardiac [Mass/Vol] 90.10 pg/mL Abnormal 10.10-27.1 0 [facility] Comment on above: Result Comment: Crit [...] Sensitivity Troponin I Instructions For Use, [employer] [place], November 2017) Performed By: #### 1 [id number] #### [facility] [address] [place] [address] Auto Diffon 02-24-2022 Basophils/100 WBC (Bld) 2.8 % High 0.0-2.0 [facility] Comment on above: Order Comment: Order Added by Discern Expert. Performed By: #### 1 3972664, 3533072, 9350043, 9191523, 43732014, 5407618, 1552049, 9832521 ####[place] [address] [place] [address] Basophils/Leukocytes Auto (Bld) [Pure # fraction] 0.2 E9/L Normal 0.0-0.2 [facility] Comment on above: Order Comment: Order Added by Discern Expert. Performed By: #### 1 6809089, 4610143, 9217479, 4743136, 61609371, 6027439, 1187369, 9887264 ####[address] [address] Eosinophils/100 WBC (Bld) 3.6 % Normal 0.0-8.0 [facility] Comment on above: Order Comment: Order Added by Discern Expert. Performed By: #### 1 5089477, 4773327, 1250152, 3124498, 28639066, 5536532, 4697667, 3752275 ####[address] [address] Eosinophils/Leukocyte s Auto (Bld) [Pure # fraction] 0.3 E9/L Normal 0.0-0.5 [facility] Comment on above: Order Comment: Order Added by Discern Expert. Performed By: #### 1 0636322, 2411228, 3022915, 7002036, 82260229, 9531818, 9789465, 6365328 ####[address] [address] Lymphocytes/100 WBC (Bld) 12.3 % Low 14.0-50.0 [facility] Comment on above: Order Comment: Order Added by Discern Expert. Performed By: #### 1 3082293, 8999610, 7063913, 1462361, 15339642, 2370765, 9437440, 5407939 ####[address] [address] Lymphocytes/Leukocyte s Auto (Bld) [Pure # fraction] 1.0 E9/L Normal 1.0-4.0 [facility] Comment on above: Order Comment: Order Added by Discern Expert. Performed By: #### 1 6372079, 0365891, 5058744, 5019881, 04883229, 2739109, 8162855, 2794760 ####[facility] [address] [place] [address] Monocytes/100 WBC (Bld) 7.4 % Normal 4.0-14.0 [facility] Comment on above: Order Comment: Order Added by Discern Expert. Performed By: #### 1 9163146, 1874037, 8329343, 0618202, 60022172, 0650176, 4589050, 9344432 ####[facility] [address] [place] [address] Monocytes/Leukocytes Auto (Bld) [Pure # fraction] 0.6 E9/L Normal 0.2-1.0 [facility] Comment on above: Order Comment: Order Added by Discern Expert. Performed By: #### 1 3772246, 4514816, 5093144, 0687422, 39708332, 2674525, 4588858, 2977246 ####[facility] [address] [place] [address] Neutrophils/100 WBC (Bld) 73.9 % Normal 36.0-75.0 [facility] Comment on above: Order Comment: Order Added by Discern Expert. Performed By: #### 1 7130017, 6834796, 3951497, 8596697, 02333222, 5609962, 2518052, 9187603 ####[facility] [address] [place] [address] Neutrophils/Leukocyte s Auto (Bld) [Pure # fraction] 6.2 E9/L Normal 2.0-7.5 [facility] Comment on above: Order Comment: Order Added by Discern Expert. Performed By: #### 1 9267652, 2154243, 9964206, 6037727, 42767547, 3754246, 2579389, 2771999 ####[facility] [address] [place] [address] BMPon 02-24-2022 Creatinine [Mass/Vol] 1.1 mg/dL Normal 0.5-1.3 [facility] Comment on above: Performed By: #### 1 8980779, 5049132, 1882778, 6171251, 95817396, 8527814, 7000772, 9763734 ####[facility] [address] [place] [address] Urea nitrogen [Mass/Vol] 18 mg/dL Normal 5-21 [facility] Comment on above: Performed By: #### 1 1245643, 5747438, 7140104, 7440356, 18553421, 5942522, 4906501, 7224512 ####[facility] [address] [place] [address] Urea nitrogen/Creatinine [Mass ratio] 16 No Units Normal 10-20 [facility] Comment on above: Performed By: #### 1 8233732, 6368787, 8965934, 4210514, 29720410, 2336020, 8608461, 2544144 ####[facility] [address] [place] [address] Anion gap [Moles/Vol] 16 mmol/L Normal 6-16 [facility] Comment on above: Performed By: #### 1 4226793, 7298181, 5426946, 7001654, 83331366, 2868793, 5849028, 6839815 ####[facility] [address] [place] [address] Calcium [Mass/Vol] 10.5 mg/dL Normal 8.9-11.1 [facility] Comment on above: Performed By: #### 1 4326339, 2954476, 5121741, 4557908, 75880092, 8316933, 2931192, 3055021 ####[facility] [address] [place] [address] Chloride [Moles/Vol] 97 mmol/L Low 101-111 [facility] Comment on above: Performed By: #### 1 3133364, 8392296, 3731364, 4906092, 96817412, 0341603, 2968199, 0403720 ####[facility] [address] [place] [address] CO2 [Moles/Vol] 28 mmol/L Normal 21-31 [facility] Comment on above: Performed By: #### 1 1253234, 5838855, 3230982, 1410640, 96405962, 2348964, 9603327, 9694106 ####[facility] [address] [place] [address] Glucose [Mass/Vol] 137 mg/dL Normal 55-199 [facility] Comment on above: Result Comment: If t his glucose result represents a fasting glucose, interpretation should refer to the following reference range: 55-99 mg/dL Performed By: #### 1 5325104, 8718964, 6513413, 4689093, 33413826, 6069201, 5082141, 6254101 ####[facility] [address] [place] [address] Potassium [Moles/Vol] 3.5 mmol/L Normal 3.5-5.3 [facility] Comment on above: Performed By: #### 1 5356572, 5009258, 5484669, 7925014, 93577992, 6087945, 6613064, 9095909 ####[facility] [address] [place] [address] Sodium [Moles/Vol] 137 mmol/L Normal 135-145 [facility] Comment on above: Performed By: #### 1 9209519, 4224250, 6834368, 7935573, 44361796, 2172004, 9555309, 2383936 ####[facility] [address] [place] [address] CBC w/ Auto Diffon 2 Erythrocyte distribution width (RBC) [Ratio] 13.4 % Normal 10.9-14.2 [facility] Comment on above: Performed By: #### 1 1753887, 9480275, 2625027, 4765609, 97000160, 2803236, 7357446, 3456156 ####[facility] [address] [place] [address] Hematocrit (Bld) [Volume fraction] 39.5 % Normal 34.0-46.0 [facility] Comment on above: Performed By: #### 1 3336591, 7188807, 4136930, 0895806, 19104902, 6978391, 5418484, 2696727 ####[facility] [address] [place] [address] Hemoglobin (Bld) [Mass/Vol] 14.1 g/dL Normal 12.0-16.0 [facility] Comment on above: Performed By: #### 1 0852847, 0511608, 7674617, 6471664, 43218200, 6203435, 9499452, 3971965 ####[place] [address] [place] [address]57 MCH (RBC) [Entitic mass] 31.2 pg Normal 27.0-34.0 [facility] Comment on above: Performed By: #### 1 1185767, 7681533, 4509070, 7759689, 94704420, 6047355, 9621216, 6873204 ####[address] [place] [address] MCHC (RBC) [Mass/Vol] 35.7 g/dL Normal 31.4-36.0 [facility] Comment on above: Performed By: #### 1 2867780, 9986304, 4001398, 6659896, 01995156, 7700061, 7878311, 6587358 ####[address] [place] [address] MCV (RBC) [Entitic vol] 87.4 fL Normal 80.0-100.0 [facility] Comment on above: Performed By: #### 1 6624136, 5023731, 1541866, 9172645, 32174115, 2806036, 9600315, 7309537 ####[address] [address] Platelet mean volume (Bld) [Entitic vol] 8.3 fL Normal 6.4-10.8 [facility] Comment on above: Performed By: #### 1 0783332, 8605035, 7127284, 4129107, 01799395, 8181568, 3623126, 4155116 ####[facility] [address] [place] [address] Platelets (Bld) [#/Vol] 295.0 E9/L Normal 150.0-500. 0 [facility] Comment on above: Performed By: #### 1 2631221, 8277971, 0733874, 6466452, 00319037, 0480502, 5409512, 8034702 ####[facility] [address] [place] [address] RBC (Bld) [#/Vol] 4.5 E12/L Normal 4.3-5.9 [facility] Comment on above: Performed By: #### 1 2149411, 9372867, 3164863, 0897601, 11697084, 6571580, 6987519, 9924501 ####[facility] [address] [place] [address] WBC corrected for nucl RBC Auto (Bld) [#/Vol] 8.4 E9/L Normal 4.0-11.0 [facility] Comment on above: Performed By: #### 1 9893572, 5807425, 9820481, 8587656, 02656358, 1944916, 9373366, 4745138 ####[address] [address] [address] Abdomen/Pelvis w/ Contras ton 02-24-2022 CT [...] 81 Rectal Contrast Given? No Normal [facility] CTA Cheston 02-24-2022 CTA Chest [...] FINAL REPORT (more content not included)... Normal [facility] Consent for Treatmenton 02-05 Consent for Treatment [id number] Normal [facility] ED Clinical Summaryon 2021 ED Clinical Summary (Inserted Image. Elvia ble to display) [place] [id number] ED Clinical Summary Person Information Name: ADINA PERRY[place] Age: 81 Years : 1940 Sex: Female Language: Japanese PCP: ADRIANA CRUZ DO Marital Status: Visit Id: Visit Reason: Fatigue; Post surgical problem; [id number] PAIN Speciality: Acuity: 2 Enc Type: Emergency Med Service: Emergency Arrival: 02/24/2022 13:07:19 Discharge: LOS: 000 05:49 Checkin: 02/24/2022 13:07:19 Checkout: 02/24/2022 18:56:59 Dispo Type: Admitted as IP to this [facility] EVENTS: Event Name Event Status Request Date/Time [...] 02/24/2022 18:56:59 02/24/2022 18:56:59 02/24/2022 18:56:59 ADDRESS: [address] [place] [address] [address] [place] [phone] PHYS DOC NOTES: MEDICAL INFORMATION: Prescriptions Given: [...] Abdominal pain; Abnormal cardiac enzyme level Normal [facility] ED Note-Physicianon 02-25-20 ED Note-Physician Basic [...] she is known to Dr. Wasserman from [facility] cardiology. She also stated that previously she [...] puff(s), Inhalatio (more content not included)... Normal [facility] Comment on above: Result Comment: Elec tronically Signed By: Jay Emery DO\.br\Date and Time Signed: 02/24/22 17:27 EST ED Patient Education Noteon 02-24-2022 ED Patient Education Note Normal [facility] ED Patient Summaryon 022 ED Patient Summary (Inserted Image. Elvia ble to display) [place] [id number] Patient Discharge Instructions Person Information Name: ADINA PERRY Age: 81 Years Arrival Date: 02/24/2022 13:07:19 Discharge Diagnosis: Abdominal pain; Abnormal cardiac enzyme level Primary Care Physician: ADRIANA CRUZ DO Provider Information Primary Provider: Jay Emery DO Advanced Ball Shagger:None The exam and treatment you received in the Emergency Department were for an urgent problem and are not intended as complete care. It is important that you follow up with a doctor, nurse practitioner, or physician?s assistant research scientist for ongoing care. If your symptoms become [...] opioids can be used to help relieve khdskxbw-yf-pbhsjd pain and are often prescribed following a [...] be struggling with addiction, tell your health caretaker and ask for guidance or call [facility]?S National Helpline at 7-364-478-IWIF. q Source: [place] Department of Health and Human Services/Center for Disease Control & Prevention [facility] Medications Given: Med (more content not included)... Normal [facility] Hep Func Panelon 02-24-2022 Albumin [Mass/Vol] 4.4 g/dL Normal 3.3-5.0 [facility] Comment on above: Performed By: #### 1 6620872, 7450901, 3252454, 3987836, 46938811, 0218943, 3196985, 6583819 ####[facility] [address] [place] [address] Albumin/Globulin (S) [Mass conc ratio] 1.3 Normal 1.1-2.2 [facility] Comment on above: Performed By: #### 1 1397234, 2711279, 2457052, 8899823, 14564082, 5280127, 0593291, 7578419 ####[facility] [address] [place] [address] ALP [Catalytic activity/Vol] 72 Int._Unit/L Normal 21-98 [facility] Comment on above: Performed By: #### 1 7784835, 8948097, 2578725, 3182671, 01055396, 6720733, 8742554, 9018224 ####[address] [address] ALT No additional P-5'-P [Catalytic activity/Vol] 16 Int._Unit/L Normal 6-46 [facility] Comment on above: Performed By: #### 1 4920555, 9073125, 5825300, 6550056, 97343153, 3197629, 8255620, 5945232 ####[place] [address] AST [Catalytic activity/Vol] 18 Int._Unit/L Normal 5-43 [facility] Comment on above: Performed By: #### 1 0625774, 8900204, 5125688, 8677600, 43199727, 9826100, 0450624, 1857662 ####[place] [address] [place] [address] Bilirubin [Mass/Vol] 0.7 mg/dL Normal 0.0-1.1 [facility] Comment on above: Performed By: #### 1 5337260, 9497337, 6722676, 4242778, 24227528, 3846829, 3829635, 7074582 ####[address] [address] Bilirubin.direct [Mass/Vol] 0.1 mg/dL Normal 0.1-0.4 [facility] Comment on above: Performed By: #### 1 7557356, 5771101, 1385967, 5240124, 35222113, 3797269, 8847164, 4360875 ####[facility] [address] [place] [address] Bilirubin.indirect [Mass or moles/Vol] 0.6 mg/dL Normal 0.1-0.9 [facility] Comment on above: Performed By: #### 1 2616904, 5333606, 9835848, 2103376, 59662101, 7989620, 6533236, 2752173 ####[place] [address] [place] [address] Globulin (S) [Mass/Vol] 3.5 g/dL Normal 1.4-4.0 [facility] Comment on above: Performed By: #### 1 2464268, 1060839, 9183500, 9466768, 97482715, 6866839, 6182971, 7017162 ####[place] [address] [place] [address] Protein [Mass/Vol] 7.9 g/dL High 6.0-7.8 [facility] Comment on above: Performed By: #### 1 8167308, 7872646, 2127988, 0404712, 81941097, 3051771, 7628367, 5681438 ####[address] [address] Lactic Acidon 02-24-2022 Lactate [Mass/Vol] 1.5 mmol/L Normal 0.5-2.2 [facility] Comment on above: Performed By: #### 1 3784352, 3510240, 0535743, 2695904, 61221494, 0817525, 1588264, 1782322 ####[place] [address] [place] [address] Lipase Levelon 02-24-2022 Lipase [Catalytic activity/Vol] 43 U/L Normal 13-58 [facility] Comment on above: Performed By: #### 1 9175905, 5545508, 2000048, 2681792, 51975728, 9532144, 8733841, 2998694 ####[address] [place] [address] Monitor Recordon 02-24-2022 Monitor Record [id number]#1.00CD:127 Normal [facility] Monitor Record [id number]#1.00CD:127 Normal [facility] Operative Reporton Operative Report SURGERY DATE: 2021 ALUMINUM BOAT ASSEMBLY SUPERVISOR: Kylie Costa, Certified Qi Specialist INDICATION FOR SURGERY: The patient is a 81 year old female with previous abdominal hysterectomy performed in an open fashion in the presenting with a 2 cm incisional hernia that is symptomatic seen on computerized tomography scan from [facility]. She is here today for robotic assisted [...] condition. Jay Power M.D. lr Dictated: 02/19/2022 [id number] Transcribed: 02/19/2022 Normal [facility] Comment on above: Result Comment: Elec tronically Signed By: Jannet ERIC, Jay Lock\.br\Date and Time Signed: 02/24/22 07:55 EST Troponinon 02-24-2022 Troponin I.cardiac [Mass/Vol] 105.90 pg/mL Abnormal 10.10-27.1 0 [facility] Comment on above: Result Comment: Crit [...] Sensitivity Troponin I Instructions For Use, [employer], November 2017) Performed By: #### 2 752407 #### [facility] [address] [place] [address] Troponin 0 Hr.on 02-24-2022 Troponin I.cardiac [Mass/Vol] 96.00 pg/mL Abnormal 10.10-27.1 0 [facility] Comment on above: Result Comment: Crit [...] conjunction with clinical conditions of myocardial infarction. ([facility] High Sensitivity Troponin I Instructions For Use, [employer], November 2017) Performed By: #### 1 1908769, 8839999, 9297911, 4055530, 85249013, 2852766, 6762128, 2330631 ####[facility] [address] [place] [address] Troponin 6 Hr.on 02-24-2022 Troponin I.cardiac [Mass/Vol] 105.10 pg/mL Abnormal 10.10-27.1 0 [facility] Comment on above: Result Comment: Crit [...] conjunction with clinical conditions of myocardial infarction. ([facility] High Sensitivity Troponin I Instructions For Use, [employer], November 2017) Performed By: #### 1 [id number] #### [facility] [address] [place] [address] UA With Cult Reflexon 2021 Bilirubin Ql (U) Negative Normal Negative [facility] Comment on above: Performed By: #### 2 785447, 37976218 #### [facility] [address] [place] [address] Clarity (U) CLEAR Normal Clear [facility] Comment on above: Performed By: #### 2 507716, 78059195 #### [facility] [address] [place] [address] Color (U) YELLOW Normal Yellow [facility] Comment on above: Performed By: #### 2 035669, 62150948 #### [facility] [address] [place] [address] Epithelial cells.squamous LM.HPF (Urine sed) [#/Area] 0-2 Normal 0-2 [facility] Comment on above: Performed By: #### 2 173505, 54202099 #### [facility] [address] [place] [address] Glucose Test strip (U) [Mass/Vol] Negative Normal Negative [facility] Comment on above: Performed By: #### 2 713124, 80312026 #### [facility] [address] [place] [address] Hemoglobin Ql (U) Negative Normal Negative [facility] Comment on above: Performed By: #### 2 083541, 41488846 #### [facility] [address] [place] [address] Ketones (U) [Mass/Vol] Negative Normal Negative [facility] Comment on above: Performed By: #### 2 399671, 73946749 #### [facility] [address] [place] [address] [place].plasma/Lithiu m.RBC (Bld) [Mass ratio] 0-3 Normal 0-3 [facility] Comment on above: Performed By: #### 2 755327, 30371917 #### [facility] [address] [place] [address] Nitrite Ql (U) Negative Normal Negative [facility] Comment on above: Performed By: #### 2 356749, 84493738 #### [facility] [address] [place] [address] pH (U) 7.0 [pH] Invalid Interpretation Code 5.0-9.0 [facility] Comment on above: Performed By: #### 2 559187, 82170156 #### [facility] [address] [place] [address] Protein (U) [Mass/Vol] Negative Normal Negative [facility] Comment on above: Performed By: #### 2 374583, 99272278 #### [facility] [address] [place] [address] Specific gravity (U) [Rel density] 1.010 Invalid Interpretation Code 1.005-1.03 0 [facility] Comment on above: Performed By: #### 2 324408, 79365497 #### [facility] [address] [place] [address] Type of Urine collection method Clean Catch Normal [facility] Comment on above: Performed By: #### 2 263558, 48514726 #### [facility] [address] [place] [address] Urobilinogen Qn (U) 0.2 {Gemma'U}/dL Normal 0.0-1.0 [facility] Comment on above: Performed By: #### 2 446471, 00510085 #### [facility] [address] [place] [address] WBC Auto Ql (U) 1+ Abnormal Negative [facility] Comment on above: Performed By: #### 2 694361, 21273110 #### [facility] [address] [place] [address] WBC LM.HPF (Urine sed) [#/Area] 0-5 Normal 0-5 [facility] Comment on above: Performed By: #### 2 475066, 82666341 #### [facility] [address] [place] [address] XR Chest Single Viewon 02-24 XR Chest [...] DO Transcribed by: PRESTON Technologist: JOSEPH, Jd [facility] eGFRon 02-24-2022 GFR/1.73 sq M.predicted among blacks MDRD (S/P/Bld) [Vol rate/Area] 58 mL/min/1.73 m2 Low >=59 [facility] Comment on above: Order Comment: Order added by Discern Expert. Result Comment: eGFR is race adjusted. AA=. Performed By: #### 1 9396814, 2429318, 1830969, 2094700, 11655925, 7614054, 6723634, 9937509 ####[facility] [address] [place] [address] GFR/1.73 sq M.predicted among non-blacks MDRD (S/P/Bld) [Vol rate/Area] 48 mL/min/1.73 m2 Low >=59 [facility] Comment on above: Order Comment: Order added by Discern Expert. Result Comment: Kicking Machine Operator serene kidney disease could be indicated at eGFR's of less than 60 mL/min/1.73m2. Kidney failure is indicated at less than 15 mL/min/1.73m2. Performed By: #### 1 5773288, 7956756, 2543946, 5159978, 49848190, 6513468, 9533863, 6382710 ####[facility] [address] [place] [address] Consent for Anesthesiaon Consent for Anesthesia [id number]#1.00CD:127 Normal [facility] Discharge Instructionson Discharge Instructions [id number]#1.00CD:127 Normal [facility] IntraOperative Documentson 04-22-2021 IntraOperative Documents [id number]#1.00CD:127 Normal [facility] IntraOperative Documents [id number]#1.00CD:127 Normal [facility] Preoperative Documentson Preoperative Documents [id number]#1.00CD:127 Normal [facility] Preoperative Documents [id number]#1.00CD:127 Normal [facility] Consent for Treatmenton 02-04 Consent for Treatment [id number]#1.00CD:127 Normal [facility] Inpatient Patient Summaryon 02-19-2022 Inpatient Patient Summary [place] [id number] [facility] Clinical Discharge Instructions PERSON INFORMATION Name: ADINA PERRY PHYSICIANS Admitting Physician: Jay Power MD Attending Physician: Jay Power MD PCP: ADRIANA CRUZ DO Discharge Diagnosis: Comment: PATIENT EDUCATION INFORMATION Instructions: Post Op Patient Instructions - FT (CUSTOM); Laparoscopic Ventral Hernia Repair, Care After Medication Leaflets: Follow up: With: Address: When: Jay Power [address] [place], [place] [id number] [phone] Business (1) In 7 days 02/26/2022 Comments: Call for followup appointment MEDICATION LIST New Medications [address] [place], [place] [address], [phone] acetaminophen-hydrocodone ([place] 325 mg-5 mg oral tablet) 1 Tablets [...] Milligram By Mouth every day. Comment: Jd [facility] Main OR PACU I Recordon 02-04 Main OR PACU I Record PACU Phase I Docum ent Type FT Summary Primary Physician: Jay Power MD Finalized Date/Time: 02/19/22 12:21:31 Pt. Name: ADINA PERRY /Sex: 1940 Female Med Rec #: [id number] Physician: Jay Power MD Financial #: [id number] Pt. Type: A Room/Bed: Admit/Disch: 02/19/22 05:56:04 [...] 12:21 Pavithra Saeed RN 02/19/22 12:21 Normal [facility] Main OR PACU II Recordon Main OR PACU II Record PACU Phase II Document Type FT Summary Primary Physician: Jay Power MD Finalized Date/Time: 02/19/22 16:14:48 Pt. Name: STIVENJenelleADINA/Sex: 1940 Female Med Rec #: [id number] Physician: Jay Power MD Financial #: [id number] Pt. Type: A Room/Bed: Admit/Disch: 02/19/22 05:56:04 [...] Signed By: Jennie Garcia RN 02/19/22 16:14 [facility] Main OR Preoperative Recordo n 02-19-2022 Main OR Preoperative Record PreOp Document Type FT Summary Primary Physician: Jay Power MD Finalized Date/Time: 02/19/22 08:51:16 Pt. Name: ADINA PERRY/Luisa: 1940 Female Med Rec #: [id number] Physician: Jay Power MD Financial #: [id number] Pt. Type: A Room/Bed: Admit/Disch: 02/19/22 05:56:04 [...] Signed By: Olivier Loza 02/19/22 08:51 Normal [facility] Monitor Recordon 02-19-2022 Monitor Record [id number]#1.00CD:127 Normal [facility] Operative Reporton 2 Operative Report Patient: [...] reparations continued for the proposed operation.. Normal [facility] Comment on above: Result Comment: Elec tronically Signed By: Rk Moreno Jr., DO\.br\Date and Time Signed: 02/19/22 08:20 EST Outpatient Surgery Discharge Instructionon 02-19-2022 Outpatient Surgery Discharge Instruction [place] [id number] Patient Discharge Instructions PERSON INFORMATION Name: ADINA [...] Follow up: With: Address: When: Jay Power [address] [place] [address], [place] [address], [address] [address] [phone] Business (1) In 7 days 02/26/2022 Comments: [...] to serve you. Thank you for choosing [facility] HERE ARE THE MEDICATION CHANGES THAT OCCURRED DURING YOUR HOSPITAL STAY New Medications [address], [address] [facility] [place] [place], [place] [address], [phone] acetaminophen-hydrocodone ([place] 325 mg-5 mg oral tablet) 1 Tablets [...] and water are not available, use hand aqua ammonia operator. ? Change your dressing as told [...] ? Do (more content not included)... Normal [facility] Patient Education - Texton 1 04-21-2021 [...] and water are not available, use hand aqua ammonia operator. ? Change your dressing as told [...] care provider approves. General instructions ? Take wdrt-nmb-qbrmpbu and prescription medicines only as told by your health care provider. ? To prevent or treat constipation while you are taking prescription pain medicine, your health care provider may recommend that you: ? Take wopt-xqx-bpfebvh or prescription medicines. ? Eat foods that [...] 03/09/2013 Document Revised: 03/05/2018 Document Reviewed: 11/12/2016 [employer] Patient Education ? 2019 [employer]. [facility] Progress Note-Physicianon Progress Note-Physician Patient: ADINA PERRY Age: 81 years Sex: Female : 1940 Associated Diagnoses: None Author: Rk Moreno Jr., DO Postoperative Information Post Operative Note: Post Anesthesia Care Unit. Anesthetic utilized: General. Health Status Allergies: Allergic Reactions (Selected) Moderate Percocet- Nausea. Severity Not Documented Darvocet-N 100- Vomiting. Problem list: All Problems BMI 20.0-20.9, adult / SNOMED CT 1356488967 / Confirmed Incisional hernia / SNOMED CT 642944198 / Confirmed RLQ abdominal pain / SNOMED CT 232757663 / Confirmed Ventral hernia / SNOMED CT 1809233655 / Confirmed Weight loss / SNOMED CT 789181211 / Confirmed Resolved: Anemia / SNOMED CT 611866863 Resolved: Fecal incontinence / SNOMED CT 357752118 Resolved: History of colon polyps / SNOMED CT 2341463424 Resolved: Nausea and vomiting / SNOMED CT 44344908 Resolved: Watery diarrhea / SNOMED CT 395308702 Physical Examination Vital Signs 02/19/2022 14:13 EST [...] to self (more content not included)... Normal [facility] Comment on above: Result Comment: Elec [...] Histories Past Medical History: Resolved Watery diarrhea (240618233): Resolved. Fecal incontinence (955021751): Resolved. Nausea and vomiting (19371560): Resolved. History of colon polyps (3140444060): Resolved. Anemia (425041746): Resolved. Family History: Heart disease Father Primary malignant neoplasm of lung Sister Diabetes mellitus type 2 Father Brother Procedure history: Colonoscopy (036067920) on 01/17/2022 at 81 Years. Comments: 01/17/2022 11:03 EDT - Hernan MILLS, Jennifer biopsies, diverticulosis EGD - Esophagogastroduodenoscopy (5927049819) on 07/06/2020 at 80 Years. Comments: 01/09/2022 16:03 EDT - Rajwinder Ho Dr Colonoscopy (523013451). Comments: 01/09/2022 16:02 EDT - Rajwinder Ho 2010 Esophagogastroduodenoscopy (581328709). Comments: 01/17/2022 11:03 EDT - Hernan MILLS, Jennifer normal, gastric biopsies section (66202116). History of hysterectomy. (4901245967). CE - Cataract extraction (7491158006). Procedure on back (682413842). Arthroplasty of knee (53022011). Bladder operation (1347262081). Social History Social & Psychosocial Habits Alcohol [...] Auto 69.3 % Lymph Auto 20.0 % [place] Auto 8.7 % Eos Auto 1.0 % Basophil Auto 1.0 % Neutro Absolute 7.0 E9/L Lymph Absolute 2.0 E9/L [place] Absolute 0.9 E9/L Eos Absolute 0.1 E9/L Basophil Absolute 0.1 E9/L Glucose Lvl 94 mg/dL BUN 25 mg/dL HI Creatinine 1.2 mg/dL eGFR 43 mL/min/1.73 m2 LOW eGFR AA 53 mL/min/1.73 m2 LOW BUN/Creat Ratio 21 HI Sodium Lvl 140 mmol/L Potassium Lvl 4.7 mmol/L (more content not included)... Normal [facility] Comment on above: Result Comment: Elec tronically Signed By: Rk Moreno Jr., DO\.br\Date and Time Signed: 02/19/22 06:44 EST Coding Summary.on 02-10-2022 Coding Summary. CD:[id number] Gh0bWw +PGhlYWQ+TE4VHMAqA56upYAmn V8KR4sCYZ0MUHUSMBUQEZ2UYH5 noCV4PXqrC5HersVw YevosQYbFX27KNz5AMF1vMadEQ edsV1goUNvY1i8ChMkQO94nF24 OFjuCZOwTpW2PjAqgccpgJTg P1zxNuPzgKDiUhr+PHRhYmxlIH slWMIqPWspHWYnPuWviXzsWZ3v Lc2gINJmZQMwsMdozTMaNvLu y7amUHUxPPduDU3efJrqA9FkpF M5LWOrf8v7Pq26hAG+PHRkIHN0 aPqqXDdim606KvFgo5euZYH3 sZXwJOpjEXS5I72iw4H9ZECoXX GcKTK6vWA7dE9ufCnabvzvM0Bu jZGyEoS8TCT6sCEolQ4apBsx uiadgA5nPqb+L49YDW9JAFPHUV 6KElv5D4IzIixhiNJ+AM10CGAa KW15xVSlfHDbl4dkwKl2BlJk GDGjTRM5xWxlNNxkn4MzFGAoV4 9eoRPjk6Q8FNLzsOcrwCSwTiIl eRA2xK8lUWndeqogq1tgamsl Lnmyi3fnri87hC18G90nRTdfFY TjGRX7ZHLiNKAzaHvevg7wfV8i Ii8+ZXcqd4rvs5tvaSz0HgIe DFDehaOroSnjXNU4i0PqNp29X6 NlhGiwy7EdQob3bo46dSBbv6A8 qQZ4GDuiMJLnoK6kOUogLaJ0 POVmEvZoeC44xECcGKanBd7hgZ sawMbyWU5dBALfcmelJPRptK0p VRTkfEZxvXdzKB1nKMKjbbqe y562MqCnSMK5AIRykVXnT0UsoA 1mSfDmXNUiAFNoZ0McfREdEBcn D562EJwwKaN6UBCrseKcC2Gg XVAezFpyNjQ7t0U5Xd3Co8Visw iyXVK3SEwsEQRiElW7SmCiInD7 D1JyDnj0ZYJkaGjlVY4bJ5Pg XKGfabeyexvupUU2OXCcEXXkoO 41iWCkKIluPs8pt8Q6q873KVDc BQVtbZ63Vf4njVmlLMLrrDJA oQ4mswrmf0ogvbytNkLzBDEvLN l0YWk4CKWcyRbuUmHqCQP3FtJ6 SBU3xSXrhL8bgBtajpuhkL5d Oyc+L94wqS9gIYP7NLR6vsszHK QugiLpNS34VQ96Z7AbProdyOZx bGU+UWTzeiWiiCfgPU9qTxYc n0wnj9AsCXyaZ5CaBNXqELigLl d7WGReVHT5rJI9tP0pHZHaYGks m2V5jCH4T6FyjuDipn8ps1jz ABCnHAxtT66nfAKjd2C7XQPbaU P7DMBxqTsbAsJtxN30Rdd+PGNv wMlrb7IeZstfb9tnl6olkBd4 AtJmOYTimlDhnVcaJZS1w8SsYh 72B82tXAtzKPXyRVWiSEObSHOf yTfhzi9saD3sKc9+PGNvbCB3 eGD3jC6kUEYoPzR7ZYheO078Dg ZpaASgTtpwv5qah4gmrTy1RfBj JHKlbqYzpFflVNG2b3RcUo96 X01iKEyfDXFtBWWlTNScNFCemL fznz3sbK0nMu8+CQ7kz8lpph02 kQ23lSO+HJFnXXA3sPtuTIsw ZBEadU8rUMtmIhP1QTRbFiAubX 26rIJiIDzgMy1gfQlruEfnEN3q SLRvteqra536UaSgw5mlZZOc fXYqYAckJCD6F73hl5O6ZBMrVQ XqJST3fFX0aQ6csDaxxypktXSj aZcprqWzsAujUXwfETpxH801 IHRvcDsnPlBhdGllbnQgTmFtZT j3D1FxCoc6DDRmmNtaSA0wxCTj YNoiLy7ywObtaYpuUI8gTYFs hrbhk843DhPbc4tzJKNpuPJjXY kpWGD5F09oa6D4OZMlAQVjZWM1 tAL1nQ7pqBvddlwtzOTmvOwo tqGnoLtuXLyqZAckA383GWYriD lcVmIycdYiNKVhnYO6YI77MF59 vXYhb6O4iGV1I3BkAVQyhxxs eiihrVU1UJLwIRUhlD26Vd0vvB vyQi8lOVKsKJE1CRKekKEqF3Yw bS0vMrAkPDEkFLZgI5ZuhICw QUhsC334UWqaLpU7UFUlppBwV2 VuQUVvmZzdZcN3a3F7Xh9LG1B8 HX19UC19mPZpt9J7aEM2S2Fy JVDfjegorxggqYZ4SLUcHAByaL 75Vz9vxIldXu3rXTGyEBG4PNYd pOHdZ7MoaG7iJmUfBSCtTQRh R4NchDGcRHjaG997XPfiXlK4OE LjevAiW4BoZWDzsPldRcT3l5H1 Qd9LDAh3IT24DP76tVZcu6L8 xDJ1X9WlMGKbqwtmjtoytAM2GN XrYKEmdG61Qa6fqFxrAt5hAVJj PBZ8LRUfzFVcD8VqpB1gXxIf QDVaDQYyL2HoqEFuFVabW516PL dcYpZ1HUYbsvMrZ7MjMWZfjWca RhF8m5B3Ii8UBXRvVZ69SGA9 dBX6QJ78PO24V7CpFlyfaCUpnE U+PHRhYmxlIHdpZHRoPScxMDAl WzEivZltNF3qId7rIHBfWMQs wIxrtDUwOsRfe0kcLYRuOLzpKS 6qmXklW5YfxGI6KBRlr0t1Gz38 S23xT1PtaFA+HOJygNU6hLD4 mJ5zYtFrPjR4VHgdL164YkCqzF AcObqvy5eko2sepPj7FaV4HKFj suNtyLmeUCJ6d2YhOl23I07i IHdpZHRoPSIxNSUiIHZhbGlnbj 5trM8fHu2+QXKvtSD4aOH2bB7g GhXdUqK4IDmcR660JqWanQRq Erdzy2mvo3hriNb7LiIkSFLmuw JpdHrxJHG0o0DxBc32Z9EviCpy y0YuWuz4yj81mEMjc6M3kMQ9 I3BgCMOzbocafLBwrDtsKU6qSD TlddctOUSgpZ6gHVQyV1q8EgMv NvL0EOtxO7XsamI9YKUpwPSa RZqqOOJ9Y22yw9S2FYFmZGWfFO N9zBA9jR7glZpaqetfwQOldAag kuRmsMqeEJlfPQgjO661XHIi wJbsOUSlpP1oRZUmuDRnbGwoYN 1hKRGfrwmdOjTNL0RJM0CjJSAS HXMOC6vIYN50AR69iXNsb2A5 jRZ4K7BrZMAeawddmcjrsCF6TE FxJTQoiA91xPKiVWezXv7ij2C4 c165BNSoOETcxT45Ye1juDyx JLVdzLMPoP6uaaoaa9evjphnYc DdFXZmMRb6RTm3GBOscVopIzWa VSI8PeB3GAW3cPZxrZ9gxVdg qnikrI0dArw+FQKcBVYlTHy6Jr wvdGQ+XAWfJHP8zIrzDUaxZKYq fP8yNRSbY4h9HwHiGvL0BVip P2HcVFEsuurpNv83vJ5yJaWiLs T2KBsgB8DseeZ6GMDsjLXmBSdm PJY2R43cz4Z6GOOwNDGlTPC0 oPH8zV4doLhmlvhmrSCnlSnqod MtxFdaDDqjAJybD741FZQimUhw Bgu0LWybQGInBM05KI93tCYb h7I7yCA1X2DgXJYrmyddqkogcA U1JPUiHWPgoW20lWFfEMbkGc3v k4O0x356VVCnRCUkxI90Em7r fElmBBVziCGRmU2oitjmx4dczw heSwDrYGLlCNw5XLi5ACPzcNwr KhJbSGB0QjR4QJQ3vBVdwD1m eRulcubdgS5oUzs+RmVtYWxlPC 84ZS91qHNmg0X9lRV3X0FtHMEp dfllojzppDD1JAGsNMHerC13 lRNsJEquRm2lz0K7d734XDMkNY XdrR34Zm1gkLceXAEscAGPvK6q lfgkj3vapotzLfOhYSVtYWk1 IAu2GCXmyNowAbVnTCN0AnZ1OU Z5mVOtiB2sjBoxazfrxV9uKca+ N3F2dIK3oKZhrJcmmXO+PC90 he73E9NgLkbpVjx1XNQuHBL2mV X9cO2qTCEeYCqxv1Q6kSY4T5Fy cdDilm9es4nuTXJlDOjsD91m rDHhq1B3JOQesBU0BAWjjCmyVs EqyH24Lfk+GVXnpDssa6PrUvty i2ods4htvPy0MnPfJFAzvoTk tHymYEG1x9QsTv21Y45wHEmdQL IeIHJkWUQdMXIexHecrq0kuR6y Ii8+ETAclJT6gFF3zN8rZtOj FfI4JVgxI271AdAidWEiVagqy6 rku8zymBv1TzPtNQBxsxQluCyg UGN0m3EwDg88O0RbmUfgj4Bi Kqp9eg48nVSmn4K3kLZ5C5MaAM XdlammiDTkfKrsJO2oRLZovatf YKWrsN4tIVHyG1d1FzZfKuK1 ZDueX7DjflE3VEPjkXTcKDVhzL BKlL3ehnrjk9jllefbKlZcEZWd OBw2KNb2QOMfhRhgLzEpCEJ7 FrD6AHA0dAHpgT9xiXsdmunzdF 9wOyc+NKi7k8ddzCOnEV2lwHI2 GR87OC83iXHjc1I2dHS8C1Il BPKrhuevmfcfaZV7JYYiCEQmbZ 29Qh7muAlzXd3sZHWwUIQ2IHJo zIDvB5AtyV8oNdJmTRTnSKPo G5KfgMYkMNulN909TPbuOjH4VD FhilCgE3AkOYLooXgsNaR2b0G1 Ik5FPL73WW09TK98bNRdh8A4 pJA0B8PcGEYcfcsodmdopJY1MD SnNDPahE33Hb9ahMlsEi3yFDQf SAA6BNRxwWXjL9BhjA6cMnKs SREwSCLvS7UgyPWmHFxmU195UW wkTbS0KNOifwTvE6UwKGKnuMcg WmD4f6D2Ky3SDj54YQ93SC59 nXTwp6G8mUP5I3ScDDOaypzmhw nmdNE9ADDuZJUgeR71Sk1oiArh Nt1lMTGfOGO8YTTezLFvO6Re qE4yLyJcEUHkFLUlS5MeyJKzIR atR747MXfbKpG8JUVdrcLwF9Ra QDToqFbyQmP3i9M4Jt8BQLik jtv7P5YnZqxsyWA+EF05DEQdOI 76qEGniUHds7mjoCu8MsBnNSBe ROB7wRzwVPtfo0TqPACoP98n bGFw (more content not included)... Normal [facility] Outside Recordson 02-07-2022 Outside Records [id number]#1.00CD:127 [facility] Consent for Procedure/Surger yon 02-05-2022 Consent for Procedure/Surgery [id number]#1.00CD:127 Normal [facility] Outside Recordson 02-05-2022 Outside Records [id number]#1.00CD:127 Normal [facility] Consent for Treatmenton Consent for Treatment [id number]#1.00CD:127 [facility] XR Chest 2 Viewson 2 XR Chest [...] V. 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 female here [...] pelvis with IV with contrast performed at [facility], which showed a fat containing ventral hernia. However, on review of the actual report of that CT scan from 11/12/[address] [facility], CT abdomen and pelvis with contrast to rule out diverticulitis. There was nothing mentioning a hernia in the body of the report nor in the findings. [facility] did not push through the images to our PACS system. I am unable to review these myself at this time. Our office is in contact with their radiology department to rectify this mistake. After calling and speaking with our radiology department and [facility], they have put the images through and [...] Michelle to record this visit. ANA M counterintelligence specialist and provider reviewed before signing. ANA [...] 30 mg, (more content not included)... Normal [facility] Comment on above: Result Comment: Elec tronically Signed By: Jannet ERIC, Jay Lock\.br\Date and Time Signed: 02/03/22 11:22 EDT\.br\Electronically Co-Signed By: Radha Mcgee\.br\Date and Time Co-Signed: 02/03/22 11:04 EDT Reminderson 02-03-2022 Reminders - From: Marly Riggins MA To: Marly Riggins MA; Sent: 02/03/2022 10:11:05 EDT Show up: 02/06/2022 10:10:00 EDT Subject: CT Imaging Reminder/Recall CT done 11/12/2021 at [facility] Spoke with [facility] and they pushed through the imaging Look at PAC Received imaging per Dr. Power [facility] RAD - CT Reporton 01-31-[address] - CT Report [id number]#1.00CD:127 Normal [facility] IntraOperative Documentson 1 IntraOperative Documents [id number]#1.00CD:127 Normal [facility] Postoperative Documentson Postoperative Documents [id number]#1.00CD:127 [facility] Coding Summary.on 01-21-2022 Coding Summary. CD:[id number] Gh0bWw +PGhlYWQ+OF2VGYLuO27snILfk J4GZ6dJQU0VGWWKPAIQLV2TWJ3 kaVY1BIshT9JzjgBa FhswyNUiXA79ZWq6PML9tHjzDK zpeL1dvBAwO5c5QuYhLG56vK45 PCghHDYoIdL0DaBkgzfhnLKj Y8hrKtVamMSpCom+PHRhYmxlIH ioQOMhRPxwPMHyCxPqgBerJT5p Ra2wXKAaOOOwgThppUZnHbUl l5iqWYOoPLtbHD4qlEvhK8YkxE V4ZIKys3g4Ob66aYH+PHRkIHN0 kWfqOLvfn104VdTyb9tfCCA8 jVIiSNyqNKZ5H57ca1R5LLMsAQ EtSRJ9pGG6hK7gtJcqjhsnC7St sGJdKpB7IWL0lIVecO5isLof krrewG7aTuz+L64CMZ3NWAEHYI 4KEsq6R1KaTlqkkPH+TH47XBUp WG87iRWwjBErv0xxkTo9BpXm UVGyXFY6gSbqQQkpe8BfRRJxH5 0dfXYlw8C9DABddYrzpYXcRlQo zXG8iP7bGBxsvysox7xxvsrq Vzzyy8lpor25qC01G83lBKqcKI ZpQKT4DIIrWXIukZxgcm8oxD0l Ii8+BVysh5yzd7djeKd3GxOa LVZhdcPtaIihKWW6w5PsJn02Y6 GbkHngj3CrVls4xb55gYFmc2N2 tMV2WGllHGTmmZ3nCKdiEgA8 KFGuRwBimO40sSIoICzdJw2dmD eghQspAB0dZOYtorliNQLwsO3v VERcmSCokGpfVB6qYSJuixsm i293VeDwVGN0VJFtyEBjT1JqxN 6lAmTfFBIlBMLmH2DjqZCvKKln X356DFxbUqF7BTQoelXiG7Wl COIcqQjnZrB2l4I6Za6Nt7Adjg cfXIA1DNjiAQReNoT9PsAxXyP6 N5UpGpt6JMBqcVxvMW9kW1Vh QDYeytzjlytwpFI0EJNdRRPhiT 56lXFbLBncKu0yb6J7n455LCTf HWIciE18Zu4vvTfdREYhiCEW hL1oagvkg1kepirrNlLxAIRlIK k6EPq9MEOwrMteAgOfYET5SlB6 VMQ9aGMjfE0gpOvhufbgsM8c Oyc+A30tbX7eMEZ9VSM5dbxbFP NgypYtXZ39FS20K7ZbQifmeBLb bGU+NSIxrgXysBaaWV7eRsIr u6hds0EsHOssI3PrKBPkVJuxRv h9UGGtRTB0pMC4yC9wLELzMFqw z7M6qIM1B6XzarVrhp7mf0nk WYNhTZakM78jsSOcn5W5TTCziV X2CYBxfUobGkGhlF63Vvm+PGNv eHimb6IdSsqbb1irh1gatHs9 OgYzBABcctNndYnrHAJ8f1OuRt 46Q06qCOwwSDNtLUYpCHRtZCFu hCakco7ysJ5hOe6+PGNvbCB3 zZS9aZ6lFMCmCjM7ZPrxK687Uc AnuNNlWkeci3lvo2uqeRq3XgYl DNOcstCbfWpaTKH1q1ClWw16 Y43dZMohUPWjHYFdSGUlXSIgeY iafl6epI5sBf3+TD4nl2aurf68 gF52nPT+QNKaDEV9bAyvTSvz GJBtkX6aLVltQqZ5GDUkZwOffQ 15mOWuUCeqNp3fpNrveGdgNJ0a YYJwxsxvg094PpAhb7guKTPj nBImOJmwXRQ3H83vy9A5DCXbEP JsOIL3tBZ7mE9mkNqnkkthtAMn oLsqyvXcnEjqCYsuUAhlC327 IHRvcDsnPlBhdGllbnQgTmFtZT j8Q4WdCpm1WUVziMdwSL7zaQZd MLsfFt3ahGmfoDbzQJ3mRRZd bersp979VnNjl0sxIBMhdQOrZE bkIGB6G06zw2X0VPBkQQTfYPP2 lJY1pH9lnAorbbgzpEKnpJvf daIcbHmmZYbrSJhtV364WPSrlN vdZhNybrOoANLogYT3FT27BG53 lQAhf7S9hWO1O9WoLSUfmdkh zxyleMZ1HLHqTPYqgO88Sl3sbN rnJe5fDYQqDWP7RIMcbFOvB7Vn aC3pGsLuEFEyWNZdY1FysQGm UFqmR655LUjnBdX8NOTuuuVqO2 WmFTYrxCzmMvO8u4L1Ut9TN4C0 PY42DP17iDIut7G0gDV5F8Bt KYPdgdabfsfhhJR8ZWSoEZTcuX 14Nd9dsHnfHj6mIVKyIUW3TKXz xHSuP5IbpV4cBvTwYADmFHUh P1NlxSChOOsuH619AXaaYmF8EB XnhgZaY7CaOMQcoEozFnM6j6M6 Yp0WUQh3SS55IG24zSAca5K2 lHA1E2FwRGJiacgcblngcAN9OR SnMBUqbV41Je8jzOdlUn1uBHKf ERT7HKOivCLxD6WvvB4nUvVd PCAnBGRcL4BqjEBvETkjJ454RW atEsR3RAOxntRyL7AtMDZzkGwl QdX6n0N4Pf0RBTWxZG76ZSM2 fVT2IC48EJ92B7CaVtdwgLAhzT U+PHRhYmxlIHdpZHRoPScxMDAl YzAhnUypCS3aLz7zRQNyOHSq gEyoyZAqBjHpj3klQWMnWTqzAE 7knKhyA1MgxUH7QRRva5g5Es92 V22qS4VqkUP+LIZiqJO2rIY9 kZ4cHaXnLeP8YXaoI252HvWsaZ SgGksxz4fha4bcaTd1RuZ1KTRv uaHkcDpgTRA6v1QiUv73L11j IHdpZHRoPSIxNSUiIHZhbGlnbj 7ozX7uVt9+FOMjuXH8wMN8iT0i JmDjSwA5WNpuJ625JoLpcTXo Cmsrt2jpo9uvfZq8OuLmWQCjkx GmtRihFTP1s1QhIc39O4GkhDzv g1XnEen3pt17qSOpp5K6hFL6 R2FoYLDpaaaquHAjvMvnUY0dLS QorwkvNBJbjU0fFWNjZ7e8ZbEi ZgG3KMfqF6UilkC8PRGqtSAy VFwxTSP7V33sn3Y3KTIrBUBeKR Q4rIW5yT9jaZxfgxoczAWtdRrg unDndGeaGEogTYfiH940ULUm xRuyQKXkzH2lXLMtnDJebWicYV 4lYVZnuoxiPfITF4QKY2XfSMTN BZVAJ9iIBM17TD97rLQsm2T0 lUF1E7CaFQGshmjlzxyweZG1WS PsEYNsvW90uJBeWEnfQt5mm8T8 w290LKWsBCZweP47Si9oqCsn GUZngVBIzN8akwxtc3ntavblAq ZrBVPsTCz2AGy5NEKgqHahIgPf VMY4QqL0UPR3iEVdzJ0heTyz ebkgiY2cFdj+TATaJPUmJYw7Dj wvdGQ+FPObVQW8nJfdAVfcFSCp wX8sZCDpR7t2YaHnXwI6ZPuy L8QaZGBtqxvmAt20nY1qLvGuDl V4JDokG9RydsG9QFAbgMElOBjp FCC9A07tn3E5QODoPELpJWS4 sHT4oZ0tpDanroamgCUbqOkxzc AotAhwZPhdYMrsV480ORZvdMmm Ukg7YBkmCJHdBO31IA78fSPz l7H3mOC9K7MfDCNddxiwjnrgrG D9XBIaYYQanN71wWCqRUquBe9m d8D0q814HCYrGGQbqD42Sh9t cEdfSDOmmEZDeT4luhmav6vkhj jbAbYhRYRdEJd0OVu0MTJapSse HgXjBPO9WiD1ALA5aGEjkC7y xAdapatsrQ7gNfe+RmVtYWxlPC 33ER34pXCvw7G6aTV0H1ErSIFo jlvvyzcyjAW1ISSuHHXhbC42 zVDgORglYp0lj9T5i669RFBuQI UwtS76It2giBrjLFJkmDYMwO3v mxdrt7pzacwsPqGnQTOtXOu7 CHn5XIBzwCvsHdCrOHN5SlD7PY S3hIAjrM6jmKozuarlpH2eLax+ Q6T2cYF0kYBzgCreaZC+PC90 cz60V6KkPhsvRse0KLYfGMK0lK Y8vH0oQEZoCTdby9R5lWJ2R6Oq epAhmj9pq2qdPUMdLFjnZ91d qPSld0D0JXVpaCL3KQUdlRedTf TvfC04Voq+AAAcnDend6YcXwaf v8jhr0fvxDg3RgDiKEYmpzPy rIypMSB2f3QrPq11W90uNYgrTO ElPDOwQTOgSDTewWzlsg9ueA3n Ii8+PCOjzUP7mLZ5rC2oLpJh GeV8WRifQ526OrDlxXNoXvmrs9 cuh0ovzRz5HzExTFImeyPscUet AKR6w0HdUx81S7KjdMfib4Ni Cud4mi50kTMro2P8uPK6I3XsWJ QbbsxzrLUjkOugAI3bABCjyuwa OMXhjO0lGKZgL3z0NgHeVeZ5 BXmjJ7CbtbE7XNPmbTPbZWNcvU KLkJ3rzmkpk9qdyxheBdOuACVw YDl1ZVl7ZKZpqCluHpXgWFB0 FiK6QMB2uBEtkR4ciXwlbwpihR 9wOyc+TNo1c3nahQHjHF8jsWL2 SW36TL06pZXyb6S6aPJ5R0Lh FUUjwneaxdvlmYL9OIQqSSWtbG 64Sm5oqDkdRx7sDTGxURX0XVIe nKEhD9SdyL2pSeYlPRRtGDFv O7JphZYqWGfxK909PRpzEkA1FI KkrtAcE0QtXPCydKfaObD2e8F9 Ko0HFP14CP46VW91uYTws2J7 oUJ0N7CfZZZkofxpfdupsFZ6WE IsRKJzqM75Uo0dpDdhSc1sUJQu LTV6YWWluUOjA4YkpT0pWtDu DHCuIMBbZ1YzoVFzVPhuK876TP uvFbR9ROEyywBaO1VaIUUewCkn UuA0c4J0Nl3NSl44ET79ZX89 vFLdg2F7vFJ6D5MuHEGjehrazt ubjJY2WHUkAPMqyE59Iz9nzRsj Ax9eULThPXF7RAQjvXXzE7Pp hN3fEkYeLWBkWYNrM2BuaTHvET eeC379SOrfJyA8FROtjnKyI4Kc RIIlpAruTjU6i4H8Dv8IONox dco3D7CsZupeqCL+QR37YAMbST 60lVQolRSfd9iqkWg3TuJmANRi JJD9yRloVPvfq2NdOUJfP10e bGFw (more content not included)... Normal [facility] Giardia, Direct, EIAon 01-21 G. lamblia Ag IA Ql (Stl) Negative Invalid Interpretation Code Negative [facility] Comment on above: Result Comment: Perf ormed at: [facility] [address] [id number] PhD Yolanda Jiang Performed By: #### 1 [id number] ####[facility] [address] [place] [address] Main OR Intraoperative Recor don 01-21-2022 Main OR Intraoperative Record IntraOp Document Type FT Summary Primary Physician: Jeferson COPE MD Finalized Date/Time: 01/21/22 11:55:08 Pt. Name: YOSELYNNIKKIJenelleADINA D.O.B./Sex: 1940 Female Med Rec #: [id number] Physician: Jeferson COPE MD Financial #: [id number] Pt. Type: O Room/Bed: / Admit/Disch: 01/17/22 [...] Craig RN, Michelle Fuentes Role Performed Anesthesiologist Telesales Consultant - Primary Staff - Other Electric Mule Operator Time In 01/17/22 09:27:00 01/17/22 09:27:00 01/17/22 09:27:00 Time Out 01/17/22 09:55:00 01/17/22 09:55:00 01/17/22 09:55:00 Procedure EGD AND COLONOSCOPY(.) EGD AND COLONOSCOPY(.) EGD AND COLONOSCOPY(.) Comments Dr. Pennington is supervising Last Modified By: Daniel MILLS, Riddhi Sanchez RN, Riddhi Sanchez RN, Riddhi Maravilla 01/17/22 09:55:43 01/17/22 09:55:43 01/17/22 09:55:43 Entry 4 Entry 5 Entry 6 Case Attendee Elana Sethi HOSIERY LOOPER, Jasmine COPE MD, Jeferson Alford Role Performed [...] and tissue Entry 1 Skin Integrity Intact, The [place], Warm, and Outcomes Met? Yes Dry Last Modified By: Riddhi Sanchez RN 01/17/22 07:29:31 Post-Care Text: The patient is free from signs and symptoms of injury caused b (more content not included)... Normal [facility] O & P EXAM, ROUTINE, REFLEXo n 01-21-2022 Ova and parasites identified Concentration Nom (Stl) Comment Invalid Interpretation Code [facility] Comment on above: Result Comment: No o va, cysts, or parasites seen. One negative specimen does not rule out the possibility of a parasitic infection. Performed at: [address] [id number] PhD Yolanda Jiang Performed By: #### 1 [id number] ####[facility] [address] [place] [address] O & P Exam, Routineon 2021 Ova and parasites identified LM Nom (Unsp spec) Final report Invalid Interpretation Code [facility] Comment on above: Result Comment: Thes e results were obtained using wet preparation(s) and trichrome stained smear. This test does not include testing for Cryptosporidium parvum, Cyclospora, or Microsporidia. Performed at: [address] [id number] PhD Yolanda Jiang Performed By: #### 1 [id number] ####[facility] [address] [place] [address] Consenton 01-20-2022 Consent [id number]#1.00CD:127 Normal [facility] Discharge Instructionson Discharge Instructions [id number]#1.00CD:127 Normal [facility] IntraOperative Documentson 1 IntraOperative Documents [id number]#1.00CD:127 Normal [facility] Coding Summary.on 01-19-2022 Coding Summary. CD:[id number] Gh0bWw +PGhlYWQ+JX2ZRMFbH27mdTIpv P5YL2pHNZ8XNPPQRIZICJ7NUE2 xlWP7PPewC9UrnxHa CghxjMFxUK23LKn2JEY1hEaeXX jecH2xeNMgR8c8UqJxNB32vY51 RTkxWQObFjV1HmDrtsahdYEi K6ysIkBkyVJsFpu+PHRhYmxlIH cuNNWgNMsbJGFqQxHejAfgPK9l Sn9pBFZdOBZeiDtueJTbBvIo b4kgDLHnPDzmVT8skCynV9AhyU T2SWVwk3v4Ss39dIB+PHRkIHN0 sTevRMcbx446EnIus3gkWHJ1 qGCyEWdrURA9I84au0B6JFNjLL SnDOP5iMM0bC0ggUggvcegW6Tn wFRtCdC2BRE3pAJwhB5jtHty jjvveP5mSug+C27CBM0LVPIOPX 2XPkb7J4KsTwmbzUW+CV25YYLb PS29uNMogFVyh1dpjKf6CiPh MNJnSJT5eVgjCAnnj0RxXJQzW3 3jxNBhe7O6NZYhdJmniOFzWfHf jPG4qY4uUXwhxhvyn4mkdfyv Fadho0ohsu46xW28E04bCVgmXX JjNCS6TLJiDBMsoXfgcv2uzQ3f Ii8+LTcje7dok3pblUu4AhXg SLOlopLyzSoaERR9q1GeGk67N1 IqvRafm2EmHyp6uh42zZMud8L5 kXN9RVcwWSUjyK2bZBwpQtZ0 LJSxVyTnvU66fPAlPDlhBf1hpY fzdJqkDP9gRWKzuetdGPJhbK1l VPPbuHHmcLfeJW1cFUEjisga i608StAbCWG1HBHfpJIjU1MwnL 8pXzWvLKFtOJMrV4PpsZBzQKvl C454IPrsClU9XYKwlnLcQ1Vi NZLxiLmdOqV8u8G8Gw4Kw5Nyaa xrBRR2YFhuWQYoLfN1AkIiPsZ7 O2NyQve0DTKghTkxDE1fB0Cw NTBlaknzggjhmKG6PPPwXCLjfG 48hKNmNIyfKa2kq6H1q604EGBq JCHeeR33Wl9lfHpyLREtqMVM jR5cpnsic0eawemeRmBvPGNqDE w7NAk6UPNmzHtiLgJsCPJ2JoZ1 QQX6lSPwxD8hvNmqnunecW3p Oyc+A50qqZ6fNCH1DZN4neprEZ TbazJyBE88JE71P1QfOmfupXMg bGU+HZZbzjSljKyqYW5iOdHl w4ndj1KbCXrmN4KsEPVvFBfxGu l7HCBkXYK9uNK4uM6fBKDbLPnn i3C0uFO0G4IeuwQtmu3wj1xm UANeEPtbL35hiHIyo3Z5OAVlnM N9BFVmdWcnYhYpmZ52Jko+PGNv qNuyf0GbTgddj1sib5mbdLg8 WrFmRBUakePyzVycQSG3c8JbKm 43E43kDZtbZIGyOMLzWPIaHFJh vGvdjh4oxA2rJi8+PGNvbCB3 bHE4mG5vUJUuNdP5QOqtI676Vn PbwAGgSdhvc8wcb6pvqEr1YjEc JIJptoDucJlmBHB3h9KaMi80 X72aKVniUTLfHXHuRBGeRKGheV knzn7xyB0qGd3+XP2fq7fbrs52 xW11fRH+KIKbLJB0xQstHLsi LDFrwC9hPVxcPpD3ZBSpVmIreV 04nIPkSSjqMz7agUrhpVtbKV9o XZKancqwa715LmIjn4obUKWf sHEkBNjiHPW4T60sd7O1XVWfTW CkGTZ2dIS8pI7jaItbcnjymXUr hZvrewXajNyeRMirARiqX779 IHRvcDsnPlBhdGllbnQgTmFtZT y5Z6ZbXdn6EIVkqPjmSU2iqBVb TTqgPu4eaXldmFrhWB4jFEVs hilyx416KbIda9fdLKUjmDKfZY naEOR1Q81mx8F0WVZuHENmGXM0 pZT3nW2pnKeunxvmrDUmiQpg ylIplQzhYHfzHIzxA077WWFpaZ mlVqUjdmJpTESygHS5KJ27MJ36 vWWdr7P1xAJ1R5GdSVOkzhfx lfdshCX2MTKnDBTdxU78Lp5jmS btIs4aNSCtXXD8UNOnyDQyJ8Pj vZ3yRdYlJWDhPZHyP6HwyHRn FLgqX189PBtcKcD8AAYjdoEpC1 NvRKEpxNgrIoR3k7N7Gs7MP4X7 DN26VH59tVLhh1S4cJR8T4Fu PIJqagagguqzdQC3KXDbUPRidP 43Ns3bgQogIk8xDSKgFGJ6KXNr aZVaU5MtgB0dZvGxUTGtHRUv W2CgaQXsWRovV448SFbqObM6XS GpjkSeQ9CnEFVefNhaWlG9o9Z6 Ad1ATRb4YR71TR59rDCui7I4 fMQ9V9RcJRBxlkwozjauzOV3QC SbZUWqeV55Ch0kqItfLf8oFHNc YEH9CTNqcEOfU7CwqI6sWoGs GNYyTFTkQ8GlzZFyJEgzU440IU bzUgK0DUXkpzZtU1BoRQCmkObk RcZ0c0V9Ey2ASEQcHL72GUW7 fBF5FN10NV16X1MzRqunpRHwmQ U+PHRhYmxlIHdpZHRoPScxMDAl ZbQswSdrAV8xYh3rMPByMOTy vVwrnLSyQgAit9ijGPNxDQxiEY 1onHiaP8DylLJ6JKXpk2b7Hh20 Q75uN9YksKP+YBLjzRJ9xWF0 jY5iHxEyMxX7KRbpG890KiIqiR YcPozcg5ydu9hnnPa9NfR3GLUx hsRvxIukMLI5t7VmAi70S56x IHdpZHRoPSIxNSUiIHZhbGlnbj 3xsL7mMo7+WTKwqMU3dMD7yF8z SrXbFqO0ZKnzO362VsDazDUo Khxbh3cyr0ccpXz9GyDdOTGpyt SqyMiiXMR6m8BoSt39G8QzlGou l3QsNwt7ud70zUHbf5D3lJQ9 Q8YlCKPnspyfrEUfoQfxJR3nIM DuqblfRYBhsP0gOHCcY4w1ZrNf QvI6XYbqM0XcjyU7NRQptNSa XVxfKXD3T45km6M0SEMmXRIfAW E8tEA6kD2ieLnzzuzfxPPtdCfc ldVyaDpgUBehVNslL239MFZl nAwyHWDfdQ6nHAMvnRMnhNeuMX 9rKCGmjtwhToSIY9IUM3XaPKUY EGFLC7vNXR82WB77jYMrt1R6 xUH5W1SiSSPoyjskssgshHP1NV YrHXJvwD80rVSlDGkvYz9de3A6 b717LKYsMJCrpH57Vy5qpAnt RPBhqXKUnY1uarljm3euknbqVf KkSKTeWRb6JKw3JNQwzGqyOvXx PPZ1LxI1KSH4hGEonN1ehEpv hrbofW2lTtg+WPNkNGRcKDe0Rt wvdGQ+YKYmEEO4mYriXSgjRZTi lJ7wXQYpH9o0BfTaDhA9WGyx F0ZoIZZdngsnKj05wF6bMiCjAh X0UToiF6HzecQ8YVKzeCKzNGjq BYD9L29qn6R9GJKyHTRcLVK8 sUY4cX7gsZvvxtisfGOdlHpxip VhcYbyYBywDBbgH250CLPnmTnu Lys0SFslYNTrVI25SN15dQKa f7K8oBU0P8AvWAGldoezbornwK F5RFQgGMZhiX73oNUnGSzoNc2s l0A0f869PAZjZRWdfZ45Rw0u pGeuBHIkhONEqN3xnofje0ajfl plIdMoTBUaBJk4MHe9DOHuzVql MiBnFGQ5ElL5YSU8gLQvqS2b xYcjdjursR2qHkc+RmVtYWxlPC 51ZS96dYBzc8W6dCL7A0EaAIFk eezelceuiCH6UHEtBGPxgU02 iAKnYOwcWv7sr2Z3o241PFZjLT NhtU11Ac2xsEzjMEAfgFCMhE8f ekxom5biksjhSjIlNLQpROx5 TLz7QDOwbOobPvZaBRQ0FoP5LN Q5mDFjtX6poViyyyqzmN7eFgd+ UBMaLHAnn5Gfy9YeLV66LF23 Y5SrRfzcmXDyzYI+PHRhYmxlIH qwPSBuTMwpWVTaBlOzqIiyIX8u Qh4iGYObVDMpdAujjZAxSvSb x1nfIDTfQMjiLN6bnHrlH0MiwF R3QOCwj2z8Ds53W29zN9OrzJU+ KVKshJR1zCT0aK3lBuWfUaD8 DNwfN290WaBrwELcLmpmm5foi8 kcmYz0YmKbCNLhhkHhpXdnMLS4 y8LeXw20V34qFDyuUOOkSSXg EWSsZWCkeGutoq2bwK7nAf9+PG NjgJJ9cXJ1nI5aPqLfYvJ1DJwo S967XzFshUUlMndmV34pL3Zv dXA+XSAfEsd3RLOjwHaaZQ0kgM QcAIsqKt8wBHC0OfWlOgViDJps V4GtOYCarsgitwcmpGN3GAUa EDOojX32Zk4ahVnuUl3uPFEjZL B6RRFbdJRbV9VcqY4eQqTdQUTx NUJbR7EwsXWjFEswA585PTwt RkC3GSEgwkVyV4GlJULssNleQv J2m7E0Cb7EtNmdhOYpQZ7zUuTz UFy6U4HiLxd8JHOxyGinAX5w pOLnPEtiDy7bsCxhcXdjDH1xUH Ckqrayu736GfPgx3wzELGpkDFz TIqhQPU5J61dz9E2SEJoQFSk DFK7jIB6kN9sdEwnkzboeAJfvU hoziXbwXlvNEctCTjaG852QESb qRdeEaOMVfq8G9BmFyh5RFUc wZdhKB2ovNJtIWfqNs2dnBrjxL usEF7wANRjsmeds599MqGri5cp JKCkrKDfOXlbMLE4O80dt3H3 DITyJQLuLUL2cUM5hD4uuOlwha ogbGVmdDsgdmVydGljYWwtYWxp G711HFAolTrcAp0LGcu2Z1Qz Cns8QYDjfIzqFO9izTBbYSohNt 3thAjrjSvfBJ7lSFCecoybb751 KdFtm9ogMCDchVWbOCbdDLA5 B58yq8V7UEMuDFYhCOJ1eEV6iR 1hbGlnbjogbGVmdDsgdmVydGlj BAxlGAvaZ292HIQklUqiAqNa eWVyOjwvdGQ+CI77ni09I8VwEf rlZct7MYDtIOC4gXF9bB9zKWNa QOymg6J8bYU0H2KfzuDjni0o b2xs (more content not included)... Normal [facility] Consent for Treatmenton 01-04 Consent for Treatment [id number]:127 Normal [facility] Endoscopic Procedure Report - Otheron 01-17-2022 [...] Follow-up in GI clinic in 2 weeks [facility] Comment on above: Result Comment: Elec tronically Signed By: ANATOLIY ERIC, Jeferson\.br\Date and Time Signed: 01/17/22 09:56 EDT Other Comment: Quyen vieira Attachment - attachment storage system not supported [id number] Can be viewed in source systemMissing Attachment - attachment storage system not supported [id number] Can be viewed in source systemMissing Attachment - attachment storage system not supported [id number] Can be viewed in source systemMissing Attachment - attachment storage system not supported [id number] Can be viewed in source systemMissing Attachment - attachment storage system not supported [id number] Can be viewed in source systemMissing Attachment - attachment storage system not supported [id number] Can be viewed in source systemMissing Attachment - attachment storage system not supported [id number] Can be viewed in source system Endoscopic [...] GI clinic follow-up in 2 weeks Normal [facility] Comment on above: Result Comment: in [...] Return to activities:: After 24 hours. Normal [facility] Comment on above: Result Comment: Elec tronically Signed By: ANATOLIY ERIC, Jeferson\.br\Date and Time Signed: 01/17/22 09:55 EDT Other Comment: Quyen vieira Attachment - attachment storage system not supported [id number] Can be viewed in source systemMissing Attachment - attachment storage system not supported [id number] Can be viewed in source systemMissing Attachment - attachment storage system not supported [id number] Can be viewed in source system Inpatient Patient Summaryon 01-17-2022 Inpatient Patient Summary [address] [address] [facility] Clinical Discharge Instructions PERSON INFORMATION Name: ADINA PERRY PHYSICIANS Admitting Physician: Jeferson COPE MD Attending Physician: Jeferson COPE MD PCP: ADRIANA CRUZ DO Discharge Diagnosis: Anemia Comment: PATIENT EDUCATION INFORMATION Instructions: Upper Endoscopy, Adult, Care After; Colonoscopy, Care After Surgery Anatoliy (CUSTOM); Diverticulosis MAGR (CUSTOM) Medication Leaflets: Follow up: With: Address: When: Jeferson COPE [address] [place] [address]. [address] [place], [place] [phone] Business (1) Comments: office will call for follow up Type Location Start [address] 02/03/2022 10:20 AM 02/03/2022 10:40 AM [...] (Vitamin D3) sertraline spironolactone Comment: Normal [facility] Main OR PACU I Recordon 01-04 Main OR PACU I Record PACU Phase I Docum ent Type FT Summary Primary Physician: Jeferson COPE MD Finalized Date/Time: 01/17/22 10:57:57 Pt. Name: ADINA PERRY Umberto/Sex: 1940 Female Med Rec #: [id number] Physician: Jeferson COPE MD Financial #: [id number] Pt. Type: O Room/Bed: / Admit/Disch: 01/17/22 [...] By: Jennifer Becerra RN 01/17/22 10:57 Normal [facility] Main OR Preoperative Recordo n 01-17-2022 Main OR Preoperative Record Holding Area Document Type FT Summary Primary Physician: Jeferson COPE MD Finalized Date/Time: 01/17/22 07:57:32 Pt. Name: ADINA PERRY /Sex: 1940 Female Med Rec #: [id number] Physician: Jeferson COPE MD Financial #: [id number] Pt. Type: O Room/Bed: / Admit/Disch: 01/17/22 [...] By: Regino Beckett RN 01/17/22 07:57 Normal [facility] Monitor Recordon 01-17-2022 Monitor Record [id number]:127 Normal [facility] Monitor Record [id number]:127 Normal [facility] Outpatient Surgery Discharge Instructionon 01-17-2022 Outpatient Surgery Discharge Instruction [address] [address] Patient Discharge Instructions PERSON INFORMATION [...] Follow up: With: Address: When: Jeferson COPE [address] [place], [place] [address]jen[address]. [address] [place] [phone] Business (1) Comments: office will call for follow up Type Location Start Finish [facility] [address] [facility] [place] 02/03/2022 10:20 AM 02/03/2022 10:40 AM Confirmed Pharmacy Information: Destin Pulilam You may receive a survey from [employer] [facility] asking you to rate your care experience. Your feedback is important and will help us understand what we do well and how we can improve the quality of care we provide to you, your loved ones and our community. It?s an honor to serve you. Thank you for choosing [facility] HERE ARE THE MEDICATION CHANGES THAT OCCURRED [...] activities are safe for you. ? Take daxf-odr-cvdkjcg and prescription medicines only as told by [...] 09/21/2012 Document Revised: 09/14/2018 Document Reviewed: 08/23/2018 [employer] Patient Education ? 2020 [employer]. Colonoscopy Care After Surgery Please read the ins (more content not included)... Normal [facility] Patient Education - Texton 1 [...] unsweetened, w/added ascorbic acid 1 cup 0.5 [place] 1 cup 0.7 Vegetables Cooked Green beans 1 cup 4.0 Carrots 1/2 cup sliced 2.3 Peas 1 cup 8.8 Potato (baked, with skin) 1 medium potato 3.8 Raw [place] (with peel) 1 cucumber 1.5 Lettuce 1 [...] IMMEDIATE MEDIC (more content not included)... Normal [facility] Progress Note-Physicianon Progress Note-Physician Patient: ADINA [...] PACU when criteria met. Condition good. Normal [facility] Comment on above: Result Comment: Elec [...] list: All Problems Anemia / SNOMED CT 222718756 / Confirmed Watery diarrhea / SNOMED CT 696446910 / Confirmed History of colon polyps / SNOMED CT 2182500260 / Confirmed Fecal incontinence / SNOMED CT 965091686 / Confirmed Nausea and vomiting / SNOMED CT 89215981 / Confirmed RLQ abdominal pain / SNOMED CT 123359386 / Confirmed Weight loss / SNOMED CT 751456324 / Confirmed, Active Problems (7) Anemia Fecal incontinence History of colon polyps Nausea and vomiting RLQ abdominal pain Watery diarrhea Weight loss Histories Past Medical History: No active or resolved past medical history items have been selected or recorded. Family History: Heart disease Father Primary malignant neoplasm of lung Sister Diabetes mellitus type 2 Father Brother Procedure history: EGD - Esophagogastroduodenoscopy ([id number]) on 07/06/2020 at 80 Years. Comments: 01/09/2022 16:03 EDT - Rajwinder Ho Dr Colonoscopy ([id number]). Comments: 01/09/2022 16:02 EDT - Rajwinder Ho [facility] [place] Social History Social & Psychosocial Habits [...] review: No qualifying data available . Plan [place] [employer]esthesi[employer] (ASA) physical status classification: Class II. Anesthetic Preoperative Plan Anesthesia: Monitored anesthesia care and general anesthesia possible. Anesthetic plan, risks, benefits, and alternatives discussed with the patient and/or family. Pt. and/or family present and agree to proceed as planned.. Risks discussed including heart, lung, nerve damage. Risks of bleeding, dental injury, hospitalization, and general injury discussed. . Normal [facility] Comment on above: Result Comment: Elec tronically Signed By: Eliecer Pennington DO\.br\Date and Time Signed: 01/17/22 08:36 EDT Coding Summary.on 01-16-2022 Coding Summary. CD:[id number] Gh0bWw +PGhlYWQ+IU1QPJRuR41biJXju C6VY2wXCS3XDDOLWLCHRY9MBS7 auMN0TQodO3KbabIu MwfhmRKyRA26MCs4EMB6fOduYP dofP4rdZYjH8z9RoBrLM09pB26 JNurLPEiSlT5DjAfwrvdxXKo R9juBlUopJYcRrt+PHRhYmxlIH xhTOYaBRmcRWEbLtFuxBgfOB4b Du7lBUPdWONvbZiemXNrUzAq t6ghBNDqAGfiKH6vnDnuG7AjgQ I7AJFgk0v4Up14jIT+PHRkIHN0 mHkdSZgzc923WdSbd3zdGLR7 oTZcDManJVY3X49sr5E2OJSbZE NeFSR4tME2eV6ybYekpyyvS5Jt aWZhOpF5NCS0jHOpgV8vuWqt rlehbA5dKxf+U60TSS8TVYWJER 0EWan4S9YoUmrmgRK+LP27YQXl ID17iLGzhDTjh3kaqVd2ZsRf ZHCmPFA7oTkeFUeoq1MrSUQoO6 8fkCXmd4Z3LMYfeSvvlFXeXaYa gBQ5jC0iBEqqsutmm3fhryxp Vfcct8xpzb05fH48O10qJZdnNJ ZjDSG7QKWuWGImiMmqgc2nqN4i Ii8+RQgem7eet1aqkRd9BfGd FFJujfUxfRepNLG3b1FrAe98S3 BytLqrr5FtWbn3fa87cNSzv6S8 lYQ7MEwqRMJcaF7zVEgcNrN4 HGHyUrGhcG11mLFcGPbtSc4ruF ispSkyFS4yTWFpxripJIClzP6f QPInyUYvdYrhYM1mCWQvmllb g039IwHfAAS9TQUoqJOuL8KhoI 8xTnLjOQDfPDYtZ8PmcSSsHVnq X605LJlrXaQ6TOWltuAhG5Kq FNMcwGjuScS3s7Q9Lw1Fc1Nvcr pnDWD9CQfjKPDbCjVbPlQbIwY8 D2PnIol3ZOAfvAjlNJ2vP9Hu OMWjftvtdyczuMF1WEAbBACodO 27rZMiODnkEf5hn5V5p272ACFl CKMvuS04Vy8maZwiRETbkVEZ hO4csbtbh1zigxowAbEpTJCnMN o9CWh5TXAyhJemWaHpYAB3OaB6 YOD5oLCbaU8tvEtbhklhzL6q Oyc+J66oiZ6cRMA7KAR8buufAX QsbuEkDB58CK02P8HxJybtlWBz bGU+OLGzotKimHmjFM8oCcRf l3jxq0GoCKsfZ9PtAIXuQMflEf u5WJBqRUL4oQW7eT9cTJTrCPlt o1H2zLI2U2WiugDfkz4wf3ox HOAqHHxiE96kgYZge3X9QTLyiW M5KCAtcXvsUpFcuV40Msh+PGNv oBksc1WrCwuls3klv8vuwFy5 HuEsYRKuhaFvgKcsTVE9x0UuXq 04W37lKOfeQAEiSCTjSYFuGDQw tQhtor7xqV9gYm9+PGNvbCB3 kGA1lG1uLRGtQkB4VDxrZ793Zl MtoRNyFwlos7obu4qlnMo5YuYb UOZrguOofIxtIAD7e1HpCx14 S57bXWwsOSEyRLUmJZSqXUBloF etoj2yiF4cOb6+YC5as8ysmu76 dQ44gJY+BIUaACB6bCjaAMla DOBntX5mYKqpVxL5UUPvYfXpbX 29hMMkPEroEj4teLjgsWaaPF8m YXPlfuqip261AqAmp4cwWQZc oFQqTKxwMHP4X73oa9Z8BTPiED KvBHH0rVB6tI2tnRydexlkjHHj dVhsbvJhzXynQSsvUXdiM282 IHRvcDsnPlBhdGllbnQgTmFtZT v6G6CyTfu2QSYlgVgzOH6tbAMd EAfmAy0exOhppWhoFW2bEYCp ayljq293WcBml4fcERXgoEArLB ggSGM7L10gx5J9JHNyAJIiPZK6 vWP2zE6puOljofgenZFfvPpr kvScjMpyZHogBEzfK613TUAemL opAmDjhrYbATUneTT9QH29JY69 gFVxt7G4fNN4G0QpIFRhcwrr gfguaCY8YCElDHJxcP61Iz8pdU rrUi8mPIQfMWF6HLAqnWAdM4Mu xL9yWxTrCBRiVFSoR5CxwOLm MCxrO712GXwnXkQ7ISXqmtArV9 QbSAShgMvgFzB5m0Z7Uf9MS9Q7 LN13DK29pQPna5J2eGX6U5Yo KMAsyfeiuajdoSC8ZCIdAJBlyV 90Tr4tcDqxKk2rJZFyTFI8HJId oMKgC9XikW9dIzPpNGEoTWHx G3QeaZXuSGagT459YQopEuW8CT VozcGrC7RtSKLllWciJcH6q6R6 Co6RDRr0DE41KN26lXRtj1C2 mSQ9B5ZgOQVewrjefcabvEX7SB PiSUXggY31Ql2guXkkEs3xTUBp FVJ8HPHltHDbM6MitP6wZoNf DFUoARHyC7KwyVEnDQtnT895OL trPxE6XWXelxWjS8KcWFObuWqn IiP7o8R3Ot9UURXfPZ30PEN7 vET9EA64IK14B3VlRkcsuBXyjZ U+PHRhYmxlIHdpZHRoPScxMDAl FcPpyMfrFE7jKk5pOXAoSPCx wCqebOPfJxNhc1snGLBcZZmcTZ 9lqHrqL6SogUT0RBZwc8t6Oi64 M18gG2CyjLT+AUShxXB3iNI5 kC0kKeUzDjJ1FQdzL437XvVsmZ MzJywbv6wsa2krwCy9LxN6DPUq znFbxWyoSYU9s0WmRn40F23a IHdpZHRoPSIxNSUiIHZhbGlnbj 7qlO4tXx9+MPAquKC4mYA4gL3a ZfWnKeF7DBroV208DpVpaMSf Yspyq2idx8jfkMy2MgRrEUGpdw JwkSyfBHW0s1TnLj30E4OrgOrw k1QdGpt0xp26nKAmt2F7aLU6 R8QxSUXyjeydiCKmeKiiDH8jNP JaeezvEDIjrD9uIYBqF6n5AwGh MsT9HUbeQ7MgfxO0VGPvuKPl ATcwOHG3R79eu4C4PTRpQWIcDH X8iXP4aC1ajAvqtgputUBhkMps cyNunYkiDOieSDinW186TEEw fQgqTUEdwH3oQAFulSNupZlzZI 7oVDBtvmrbNoREV6ZFF9WiNORW BVHYH3vAPI02EI34pWKnr1F3 yQI4D5PjZIRdgtuuwuotgFQ7SX UxFFGnvM31rNQpHMwvEz9xx7K1 i889RMMbUWDxcQ27Pc0xjYdg YPPoeHRKgP8sdjmic0signkhUr UyYRVzCGj3FEt4OAGhaZmiOqKv GDR3LkM7TSP6vAEqlV7azJkt gecciW1tWia+YCXdYGYiHKu0Ws wvdGQ+HNSiNUY8eOebEDauIAKv xQ6xKMUkX4y1GzHaQiW7APbw I1MjPAIwbnykPv57mV1vLrVoPf A6RSplG0AmhsN3VDXpuLFsOIha NNL5R80tp3L7MLMwZGSjASC9 eUE9sU2ojSsuxlkmjXXkyQaotz AfsTqbQDsnPOpjL407DGBwfBrm Idc8REyfZCVnOB14YQ36vOSu w6H5yHB4O3BpDKKulkhsusccoU R7GBPzSJHpgG60iYFsZSntPv8i j5W4b795HQFxZNSopX39Oa8l dNwvDNSoiYYLmL3feykhj0cowf kvKyFbIAPpXYx8DHv4XKTvzRwt DaLkQVZ6BmW5LFH9cAPamH4k kVnvsssgvX4vKqv+RmVtYWxlPC 56HL13jADir6V5tPQ5M9WeTSCh htyfooyagYW3QSXxXPFnhE03 mQVhVAhuLg9sr2Q7b080XBNxCL PwaR20Pm4fsYrnTXCtfYJMiY1t vaost5yacnwqFxJnKVWjWOw7 LJq7YYYmpFllNsZrWRT2CtX1VX U8uNRtlY0ugQdvjapxaL3xDaj+ A8Z9lFN2iLDkoLqrgRJ+PC90 vn78Z6GtTxpvGmh6KNVaBZS4mS M5eU8mLHVbIAsts6K8vWY9G2Uk wsZpvs6nb0ibRSQfPNqmY46e iDXad0N5JXSakZY6PZEoqQjnBs MctZ39Psz+WKOahCqov8XcWmhb j6ayi1speSz8VaQtGPMsdoMa vWfvDAT3l2LnPf58K42tYTrvRX HqXULmGZZaTYTfmEzhzd6dnY1h Ii8+WHWvbPA6jFW1vL7wEdRc HiF8ABqaS553JkJgeTXeBdljd6 ykn8nxdMj6IkHyFPYcniSukMan IVQ6g1KiHs95M5WynRqvf0Ba Ylq8he78jMDkh0Y6cEK6S8OqKN HkdjuiuQKjfMtiJH3mCWDkbewj IWMxcX4hTPOsZ0g8LmNkTyF1 TQtzL5XwjiU3BUDygZRbGQAmaR ZPzF3jgeode2odoalpKpKwNZZq IDt4OGy9RPKhkHwrUvPnROB4 RrD8XLV1xSChfE9vdGxkfjzinH 9wOyc+PPy4u7eymDArBB6ugRG4 PV76JC03fFXzj8J7vGE3E0Lh UVQjolvlkthxpLO3PQGoAVUrxP 39Gl2czInwLl9sUQSpOXP4YSHc mCKjV6QyhA0aKnTjWVGxFZRy M3IdzVJuBUjnI318CGktCkK9ZD JkcgImY3FsYRVhlKjfXnR0d5H9 Ym2ZYM67TW02QE83fLAot5X5 aWE8Z1ArMETptsgqdrbfpLK9ZA KfNGFcsM54Yk6ytSdkAn3eYGWq KRE3RUZruVUsB6NmpY8tWbYj AKTiGXOlQ7HgrEBgNSaiT680NO dhVcZ6VSMmikTaP8HyXWWwtGjf VmQ0b4V9Pa0QVj49TX76XG84 xYUtg3H1gMT0Y5XqQVAzajwqvt bkyYE8WVCpMCMxoK14Oi2sdQoh Wn6nUTEbZNH3BDSrvFTvA7Mo oL8zHyYzFVKzSAAaH1PnlNYgYG coO649HEfvAlB5DNRasuPhX2Jj XUYrzAhjWqP9h0N8Mt6KYEzl gis5M3ApHcnpoIR+AE79VLZyXQ 63cQMrmUOak7bweWy3VpJvUAHo LOF7lQxwCMlsv7NxFGCvS72o bGFw (more content not included)... Normal [facility] C. diff by PCRon 01-14-2022 Clostridium difficile by PCR see comment Invalid Interpretation Code [facility] Comment on above: Result Comment: Unab [...] its clinical significance. Performed By: #### 1 [id number], [id number], 31723864, 37434335, 67163014, 59565228 ####[facility] [address] [place] [address] Consent for Procedure/Surger yon 01-14-2022 Consent for Procedure/Surgery [id number]:127 Normal [facility] Enteric Panel by PCRon 01-14 C. coli+jejuni+upsaliens is DNA FERN+non-probe Ql (Stl) Not detected Normal [facility] Comment on above: Result Comment: Test ing was performed utilizing reverse personal coach (RT), polymerase chain reaction (PCR), and array [...] nulcleic acid test. Performed By: #### 1 [id number], 590431101, 89621316, 76518359, 11955017, 73028194 ####[facility] [address] [place] [address] E. coli stx1+stx2 genes FERN+non-probe Ql (Stl) Negative Normal [facility] Comment on above: Performed By: #### 1 [id number], 778402823, 37989342, 98689361, 55275000, 77521367 ####[facility] [address] [place] [address] Enteric Panel by PCR Negative Normal [facility] Enteric Panel Intrl QC Pass Normal [facility] Comment on above: Result Comment: Test ing was performed utilizing reverse personal coach (RT), polymerase chain reaction (PCR), and array [...] 1 and 2. Performed By: #### 1 [id number], 361286044, 47042721, 45868031, 53431463, 00354652 ####[facility] [address] [place] [address] Norovirus genogroup I+II RNA FERN+non-probe Ql (Stl) Not detected Normal [facility] Comment on above: Performed By: #### 1 [id number], 770775603, 98496198, 38798897, 34155478, 56063779 ####[facility] [address] [place] [address] Rotavirus A RNA FERN+non-probe Ql (Stl) Not detected Normal [facility] Comment on above: Performed By: #### 1 315972394, 247492266, 65365893, 52077312, 59642916, 84033637 ####[facility] [address] [place] [address] S. enterica+bongori DNA FERN+non-probe Ql (Stl) Not detected Normal [facility] Comment on above: Result Comment: This test result should be correlated with clinical presentations and medical history by a healthcare provider to determine its clinical significance. Performed By: #### 1 [id number], 712952031, 27016381, 43214722, 83525298, 11945504 ####[facility] [address] [place] [address] Shigella species+EIEC invasion plasmid antigen H ipaH gene FERN+non-probe Ql (Stl) Not detected Normal [facility] Comment on above: Performed By: #### 1 [id number], 751793061, 64836562, 82841749, 49113421, 94933298 ####[facility] [address] [place] [address] V. cholerae+parahaemolyt icus+vulnificus DNA FERN+non-probe Ql (Stl) Not detected Normal [facility] Comment on above: Performed By: #### 1 [id number], 528326667, 13235347, 69884532, 35778002, 60500028 ####[address] [place] [address] Y. enterocolitica DNA FERN+non-probe Ql (Stl) Not detected Normal [facility] Comment on above: Performed By: #### 1 800324955, 834910811, 14264179, 75230897, 97051923, 02948547 ####[facility] [address] [place] [address] Fecal WBC Lactoferrinon 01-04 Fecal WBC Lactoferrin Negative Normal Negative [facility] Comment on above: Result Comment: The semi-quantitative detection of elevated levels of fecal lactoferrin is a marker for fecal leukocytes and an indication of intestinal inflammation. Performed By: #### 1 [id number], 859729475, 61865453, 79262709, 12981132, 03260301 #### [facility] [address] [place] [address] Ambulatory Visit Summaryon Ambulatory Visit Summary ADINA [...] diarrhea Invalid Interpretation Code RLQ abdominal pain [facility] Auto Diffon 01-10-2022 Basophils/100 WBC (Bld) 1.0 % Normal 0.0-2.0 [facility] Comment on above: Order Comment: Order Added by Discern Expert. Performed By: #### 2 407519, 6562641, 78928666, 2284977 ####[facility] [address] [place] [address] Basophils/Leukocytes Auto (Bld) [Pure # fraction] 0.1 E9/L Normal 0.0-0.2 [facility] Comment on above: Order Comment: Order Added by Discern Expert. Performed By: #### 2 590671, 1177936, 35907842, 3335446 ####[facility] [address] [place] [address] Eosinophils/100 WBC (Bld) 1.0 % Normal 0.0-8.0 [facility] Comment on above: Order Comment: Order Added by Discern Expert. Performed By: #### 2 513743, 0900052, 69059103, 9095687 ####[address] [place] [address] Eosinophils/Leukocyte s Auto (Bld) [Pure # fraction] 0.1 E9/L Normal 0.0-0.5 [facility] Comment on above: Order Comment: Order Added by Discern Expert. Performed By: #### 2 568932, 9286352, 18445308, 3372051 ####[address] [address] Lymphocytes/100 WBC (Bld) 20.0 % Normal 14.0-50.0 [facility] Comment on above: Order Comment: Order Added by Discern Expert. Performed By: #### 2 738823, 2689066, 88206112, 5678727 ####[address] [address] Lymphocytes/Leukocyte s Auto (Bld) [Pure # fraction] 2.0 E9/L Normal 1.0-4.0 [facility] Comment on above: Order Comment: Order Added by Discern Expert. Performed By: #### 2 651807, 3197577, 22036358, 6104915 ####[address] [address] Monocytes/100 WBC (Bld) 8.7 % Normal 4.0-14.0 [facility] Comment on above: Order Comment: Order Added by Discern Expert. Performed By: #### 2 253195, 3023277, 65111085, 9448018 ####[address] [place] [address] Monocytes/Leukocytes Auto (Bld) [Pure # fraction] 0.9 E9/L Normal 0.2-1.0 [facility] Comment on above: Order Comment: Order Added by Discern Expert. Performed By: #### 2 887167, 9165413, 90953200, 8762411 ####[address] [place] [address] Neutrophils/100 WBC (Bld) 69.3 % Normal 36.0-75.0 [facility] Comment on above: Order Comment: Order Added by Discern Expert. Performed By: #### 2 482674, 1181035, 51060288, 9555423 ####[address] [address] Neutrophils/Leukocyte s Auto (Bld) [Pure # fraction] 7.0 E9/L Normal 2.0-7.5 [facility] Comment on above: Order Comment: Order Added by Discern Expert. Performed By: #### 2 729723, 0850751, 64371758, 6089442 ####[address] [address] CBC w/ Auto Diffon Erythrocyte distribution width (RBC) [Ratio] 14.7 % High 10.9-14.2 [facility] Comment on above: Performed By: #### 2 140831, 5610600, 48287283, 8049650 ####[address] [address] Hematocrit (Bld) [Volume fraction] 37.1 % Normal 34.0-46.0 [facility] Comment on above: Performed By: #### 2 229454, 2265781, 50209281, 1830278 ####[address] [address] Hemoglobin (Bld) [Mass/Vol] 12.2 g/dL Normal 12.0-16.0 [facility] Comment on above: Performed By: #### 2 150639, 7312418, 83481830, 7338456 ####[address] [address] MCH (RBC) [Entitic mass] 30.0 pg Normal 27.0-34.0 [facility] Comment on above: Performed By: #### 2 598015, 9804418, 16765081, 6832272 ####[address] [place] [address] MCHC (RBC) [Mass/Vol] 33.0 g/dL Normal 31.4-36.0 [facility] Comment on above: Performed By: #### 2 490239, 7852012, 65579098, 7173267 ####[address] MCV (RBC) [Entitic vol] 90.8 fL Normal 80.0-100.0 [facility] Comment on above: Performed By: #### 2 524172, 8708321, 02878912, 2852455 ####[address] Platelet mean volume (Bld) [Entitic vol] 7.9 fL Normal 6.4-10.8 [facility] Comment on above: Performed By: #### 2 938329, 1845307, 65663152, 7571496 ####[address] Platelets (Bld) [#/Vol] 281.0 E9/L Normal 150.0-500. 0 [facility] Comment on above: Performed By: #### 2 197433, 0266375, 10874345, 3155293 ####[address] [address] RBC (Bld) [#/Vol] 4.1 E12/L Low 4.3-5.9 [facility] Comment on above: Performed By: #### 2 650576, 1756169, 53383953, 5584592 ####[address] [address] WBC corrected for nucl RBC Auto (Bld) [#/Vol] 10.1 E9/L Normal 4.0-11.0 [facility] Comment on above: Performed By: #### 2 436485, 5742512, 57008970, 0549454 ####[address] [place] [address] CMPon 01-10-2022 Albumin [Mass/Vol] 4.4 g/dL Normal 3.3-5.0 [facility] Comment on above: Performed By: #### 2 883865, 8717816, 87011769, 2866117 ####[facility] [address] [place] [address] Albumin/Globulin (S) [Mass conc ratio] 1.5 Normal 1.1-2.2 [facility] Comment on above: Performed By: #### 2 219818, 1153014, 19521258, 6537908 ####[address] [place] [address] ALP [Catalytic activity/Vol] 55 Int._Unit/L Normal 21-98 [facility] Comment on above: Performed By: #### 2 688743, 1828685, 55342928, 4206356 ####[facility] [address] [place] [address] ALT No additional P-5'-P [Catalytic activity/Vol] 15 Int._Unit/L Normal 6-46 [facility] Comment on above: Performed By: #### 2 260261, 3477326, 08157446, 6211118 ####[facility] [address] [place] [address] Anion gap [Moles/Vol] 19 mmol/L High 6-16 [facility] Comment on above: Performed By: #### 2 356660, 0496001, 17169638, 9849858 ####[facility] [address] [place] [address] AST [Catalytic activity/Vol] 19 Int._Unit/L Normal 5-43 [facility] Comment on above: Performed By: #### 2 274957, 6316565, 81164000, 5329781 ####[facility] [address] [place] [address] Bilirubin [Mass/Vol] 0.7 mg/dL Normal 0.0-1.1 [facility] Comment on above: Performed By: #### 2 956909, 8981145, 57286123, 7345971 ####[facility] [address] [place] [address] Calcium [Mass/Vol] 10.5 mg/dL Normal 8.9-11.1 [facility] Comment on above: Performed By: #### 2 750749, 7959091, 67160267, 5124994 ####[facility] [address] [place] [address] Chloride [Moles/Vol] 103 mmol/L Normal 101-111 [facility] Comment on above: Performed By: #### 2 415933, 3408617, 42873078, 4181387 ####[facility] [address] [facility] [place] [address] CO2 [Moles/Vol] 23 mmol/L Normal 21-31 [facility] Comment on above: Performed By: #### 2 038223, 9597979, 51277736, 3765533 ####[facility] [address] [facility] [place] [address] Creatinine [Mass/Vol] 1.2 mg/dL Normal 0.5-1.3 [facility] Comment on above: Performed By: #### 2 692478, 4254601, 22772831, 9490810 ####[facility] [address] [facility] [place] [address] Globulin (S) [Mass/Vol] 2.9 g/dL Normal 1.4-4.0 [facility] Comment on above: Performed By: #### 2 994513, 2904925, 73496432, 5373954 ####[facility] [address] [facility] [place] [address] Glucose [Mass/Vol] 94 mg/dL Normal 55-199 [facility] Comment on above: Result Comment: If t his glucose result represents a fasting glucose, interpretation should refer to the following reference range: 55-99 mg/dL Performed By: #### 2 429010, 2522310, 80900141, 2009087 ####[facility] [address] [place] [address] Potassium [Moles/Vol] 4.7 mmol/L Normal 3.5-5.3 [facility] Comment on above: Performed By: #### 2 894748, 8418764, 37192368, 1555579 ####[facility] [address] [place] [address] Protein [Mass/Vol] 7.3 g/dL Normal 6.0-7.8 [facility] Comment on above: Performed By: #### 2 624786, 4272467, 79075130, 1755754 ####[facility] [address] [place] [address] Sodium [Moles/Vol] 140 mmol/L Normal 135-145 [facility] Comment on above: Performed By: #### 2 347180, 0490376, 32392030, 4547086 ####[facility] [address] [place] [address] Urea nitrogen [Mass/Vol] 25 mg/dL High 5-21 [facility] Comment on above: Performed By: #### 2 788971, 4317360, 54286525, 7083694 ####[facility] [address] [place] [address] Urea nitrogen/Creatinine [Mass ratio] 21 No Units High 10-20 [facility] Comment on above: Performed By: #### 2 460729, 2529743, 10239807, 3209881 ####[facility] [address] [place] [address] Consent for Treatmenton Consent for Treatment [id number]:127 Normal [facility] Gastroenterology Office/Clin ic Noteon 01-10-2022 Gastroenterology [...] had previous EGD with Dr. Brannon at [facility] 07/2020 that revealed normal EGD. Was previously evaluated at [facility] 11/12/21 for N/V/D and had CT [...] year. Patient had previous colonoscopy 2010 in [place] and reports was normal. Patient reports hx. [...] to evaluate for acute process. 11/12/21 at [facility]-CT abdomen/pelvis that showed fat-containing ventral hernia. [...] at times. (more content not included)... Normal [facility] Comment on above: Result Comment: Elec [...] your local community. General instructions ? Take zyyy-jxh-nksrsbe and prescription medicines only as told by [...] Foundation for Functional Gastrointestinal Disorders: [email or web address] ? [employer]: [email or web address].gi.org Contact a health care provider if: ? You have a fever. ? You have redness, swelling, or pain around your rectum. ? Your pain is getting worse or you lose feeling in your rectal area. ? You have blood (more content not included)... Normal [facility] eGFRon 01-10-2022 GFR/1.73 sq M.predicted among blacks MDRD (S/P/Bld) [Vol rate/Area] 53 mL/min/1.73 m2 Low >=59 [facility] Comment on above: Order Comment: Order added by Discern Expert. Result Comment: eGFR is race adjusted. AA=. Performed By: #### 2 961125, 4517098, 11871233, 5182493 ####[facility] [address] [place] [address] GFR/1.73 sq M.predicted among non-blacks MDRD (S/P/Bld) [Vol rate/Area] 43 mL/min/1.73 m2 Low >=59 [facility] Comment on above: Order Comment: Order added by Discern Expert. Result Comment: Kicking Machine Operator serene kidney disease could be indicated at eGFR's of less than 60 mL/min/1.73m2. Kidney failure is indicated at less than 15 mL/min/1.73m2. Performed By: #### 2 576451, 9107110, 14739873, 0559004 ####[facility] [address] [place] [address] Physician Referralon 022 Physician Referral [id number]:127 Normal [facility] Urine culture routineOrdered By: Misbah Greenwood on 11-15-2021 Bacteria identified Cx Nom (U) Escherichia coli [facility] Bacteria identified Cx Nom (U) Klebsiella pneumoniae [facility] Automated erythrocytes count in urine sediment (number/area)Ordered By: Misbah Greenwood on 11-12-2021 RBC Auto (Urine sed) [#/Area] 1-2 [HPF] 0-4 [facility] Automated leukocytes count i n urine sediment (number/area)Ordered By: Misbah Greenwood on 11-12-2021 WBC Auto (Urine sed) [#/Area] 10-19 [HPF] 0-4 [facility] Automated urine hyaline cast s count (number/volume)Ordered By: Misbah Greenwood on 11-12-2021 Hyaline casts Auto (U) [#/Vol] Rare [LPF] 0-1 [facility] Basophils Auto (Bld) [#/Vol] Ordered By: Misbah Greenwood on 11-12-2021 Basophils (Bld) [#/Vol] 0.1 10*3/uL 0.0-0.2 [facility] Basophils/100 WBC Auto (Bld) Ordered By: Misbah Greenwood on 11-12-2021 Basophils/100 WBC (Bld) 0.7 % . [facility] Bilirubin Test strip Ql (U)O rdered By: Misbah Greenwood on 11-12-2021 Bilirubin Ql (U) Negative Negative [facility] Blood hemoglobin measurement (mass/volume)Ordered By: Misbah Greenwood on 11-12-2021 Hemoglobin (Bld) [Mass/Vol] 10.8 g/dL 11.8-15.4 [facility] Blood leukocytes automated c ount (number/volume)Ordered By: Misbah Greenwood on 11-12-2021 WBC (Bld) [#/Vol] 12.3 10*3/uL 4.5-11.0 [facility] Body fluid albumin measureme nt (mass/volume)Ordered By: Misbah Greenwood on 11-12-2021 Albumin (Body fld) [Mass/Vol] 3.7 g/dL 3.2-5.5 [facility] COVID-19 SOFIAOrdered By: Kee Greenwood on 11-12-2021 SARS-CoV+SARS-CoV-2 (COVID-19) Ag IA.rapid Ql (Resp) Negative Negative [facility] Comment on above: This is a duplicate Johana SARS Antigen (DEEDEE) result to be used for statistical tracking purpose only. Casts typing in urine sedime nt by light microscopyOrdered By: Misbah Greenwood on 11-12-2021 Casts LM Nom (Urine sed) None seen [LPF] None Seen [facility] Color Auto (U)Ordered By: Kee gudelia Timo on 11-12-2021 Color (U) Yellow Yellow [facility] Creatinine and Glomerular fi ltration rate.predicted panel (S/P/Bld)Ordered By: Misbah Greenwood on 11-12-2021 Creatinine [Mass/Vol] 1.58 mg/dL 0.44-1.03 [facility] Eosinophils Auto (Bld) [#/Vo l]Ordered By: Misbah Greenwood on 11-12-2021 Eosinophils (Bld) [#/Vol] 0.2 10*3/uL 0.0-0.45 [facility] Eosinophils/100 WBC Auto (Bl d)Ordered By: Misbah Greenwood on 11-12-2021 Eosinophils/100 WBC (Bld) 1.4 % . [facility] Erythrocyte distribution wid th Auto (RBC) [Ratio]Ordered By: Misbah Greenwood on 11-12-2021 Erythrocyte distribution width (RBC) [Ratio] 13.7 % 11.9-15.3 [facility] Estimated glomerular filtrat ion rate (GFR) non- AmericanOrdered By: Misbah Greenwood on 11-12-2021 GFR/1.73 sq M.predicted among non-blacks MDRD (S/P/Bld) [Vol rate/Area] 32 mL/Min [facility] Globulin Calc (S) [Mass/Vol] Ordered By: Misbah Greenwood on 11-12-2021 Globulin (S) [Mass/Vol] 3.0 g/dL [facility] Hematocrit Auto (Bld) [Volum e fraction]Ordered By: Misbah Greenwood on 11-12-2021 Hematocrit (Bld) [Volume fraction] 32.4 % 34.0-46.4 [facility] Ketones Auto test strip (U) [Mass/Vol]Ordered By: Misbah Greenwood on 11-12-2021 Ketones (U) [Mass/Vol] Negative Negative [facility] Laboratory - Chemistry and C hemistry - challengeOrdered By: Misbah Greenwood on 11-12-2021 Lipase [Catalytic activity/Vol] 44.0 U/L 22-51 [facility] Laboratory - Hematology and Cell countsOrdered By: Misbah Greenwood on 11-12-2021 Nucleated RBC/100 WBC (Bld) [Ratio] 0.0 % 0-0.5 [facility] Lymphocytes Auto (Bld) [#/Vo l]Ordered By: Misbah Greenwood on 11-12-2021 Lymphocytes (Bld) [#/Vol] 0.9 10*3/uL 1.00-4.8 [facility] Lymphocytes/100 WBC Auto (Bl d)Ordered By: Misbah Greenwood on 11-12-2021 Lymphocytes/100 WBC (Bld) 7.5 % . [facility] MCH Auto (RBC) [Entitic mass ]Ordered By: Misbah Greenwood on 11-12-2021 MCH (RBC) [Entitic mass] 29.9 pg 24.7-34.3 [facility] MCHC Auto (RBC) [Mass/Vol]Or dered By: Misbah Greenwood on 11-12-2021 MCHC (RBC) [Mass/Vol] 33.2 g/dL 32.0-35.0 [facility] MCV Auto (RBC) [Entitic vol] Ordered By: Misbah Greenwood on 11-12-2021 MCV (RBC) [Entitic vol] 90.0 fL 80-100 [facility] Monocytes Auto (Bld) [#/Vol] Ordered By: Misbah Greenwood on 11-12-2021 Monocytes (Bld) [#/Vol] 1.0 10*3/uL 0.0-0.8 [facility] Monocytes/100 WBC Auto (Bld) Ordered By: Misbah Greenwood on 11-12-2021 Monocytes/100 WBC (Bld) 8.3 % . [facility] Neutrophils Auto (Bld) [#/Vo l]Ordered By: Misbah Greenwood on 11-12-2021 Neutrophils (Bld) [#/Vol] 10.1 10*3/uL 1.8-7.7 [facility] Neutrophils/100 WBC Auto (Bl d)Ordered By: Misbah Greenwood on 11-12-2021 Neutrophils/100 WBC (Bld) 82.1 % . [facility] Nitrite Test strip Ql (U)Ord ered By: Misbah Greenwood on 11-12-2021 Nitrite Ql (U) Negative Negative [facility] No Panel InformationOrdered By: Misbah Greenwood on 11-12-2021 Estimated GFR () 38 mL/Min [facility] Comment on above: GFR estimated refere nce range: According to KDOQI guidelines, <60 ml/min/1.73m2 is sufficient to diagnose a patient with chronic kidney disease. Pharmacy Creatinine Clearance (Chem 20.67 [facility] SARS Antigen (LFIA) [facility] Platelet mean volume Auto (B ld) [Entitic vol]Ordered By: Misbah Greenwood on 11-12-2021 Platelet mean volume (Bld) [Entitic vol] 7.6 fL 6.3-10.7 [facility] Platelets Auto (Bld) [#/Vol] Ordered By: Misbah Greenwood on 11-12-2021 Platelets (Bld) [#/Vol] 379 10*3/uL 150-450 [facility] Protein Auto test strip (U) [Mass/Vol]Ordered By: Misbah Greenwood on 11-12-2021 Protein (U) [Mass/Vol] Trace mg/dL Negative [facility] Protein [Mass/volume] in Ser um or PlasmaOrdered By: Misbah Greenwood on 11-12-2021 Protein [Mass/Vol] 6.7 g/dL 6.1-7.9 [facility] RBC Auto (Bld) [#/Vol]Ordere d By: Misbah Greenwood on 11-12-2021 RBC (Bld) [#/Vol] 3.59 10*6/uL 3.60-5.00 [facility] Serum or plasma alanine villanueva otransferase measurement without P-5'-P (enzymatic activiOrdered By: Misbah Greenwood on 08-09-2022 ALT No additional P-5'-P [Catalytic activity/Vol] 13 U/L 10-60 [facility] Serum or plasma albumin/glob ulin mass ratioOrdered By: Misbah Greenwood on 11-12-2021 Albumin/Globulin [Mass ratio] 1.2 {ratio} [facility] Serum or plasma alkaline ladarius sphatase measurement (enzymatic activity/volume)Ordered By: Misbah Greenwood on 11-12-2021 ALP [Catalytic activity/Vol] 74 U/L 32-92 [facility] Serum or plasma aspartate am inotransferase measurement (enzymatic activity/volume)Ordered By: Misbah Greenwood on 11-12-2021 AST [Catalytic activity/Vol] 17 U/L 10-42 [facility] Serum or plasma calcium dennis urement (mass/volume)Ordered By: Misbah Greenwood on 11-12-2021 Calcium [Mass/Vol] 9.5 mg/dL 8.2-10.2 [facility] Serum or plasma chloride brea surement (moles/volume)Ordered By: Misbah Greenwood on 11-12-2021 Chloride [Moles/Vol] 103 mmol/L 95-114 [facility] Serum or plasma glucose dennis urement (mass/volume)Ordered By: Misbah Greenwood on 11-12-2021 Glucose [Mass/Vol] 118 mg/dL 70-100 [facility] Comment on above: ADA recommended refe rence range Random Glucose Reference Range is dependent on time and content of last meal. Glucose of more than 200 mg/dL in a nonstressed, ambulatory subject supports the diagnosis of Diabetes Mellitus. Serum or plasma potassium me asurement (moles/volume)Ordered By: Misbah Greenwood on 11-12-2021 Potassium [Moles/Vol] 3.7 mmol/L 3.5-5.1 [facility] Serum or plasma sodium measu rement (moles/volume)Ordered By: Misbah Greenwood on 11-12-2021 Sodium [Moles/Vol] 135 mmol/L 136-146 [facility] Serum or plasma total biliru bin measurement (mass/volume)Ordered By: Misbah Greenwood on 11-12-2021 Bilirubin [Mass/Vol] 0.3 mg/dL 0.3-1.2 [facility] Serum or plasma total carbon dioxide measurement (moles/volume)Ordered By: Misbah Greenwood on 11-12-2021 CO2 [Moles/Vol] 19.9 mmol/L 22.0-30.0 [facility] Serum or plasma urea nitroge n measurement (mass/volume)Ordered By: Misbah Greenwood on 11-12-2021 Urea nitrogen [Mass/Vol] 21 mg/dL 9- [facility] Specific gravity Auto test s trip (U) [Rel density]Ordered By: Misbah Greenwood on 11-12-2021 Specific gravity (U) [Rel density] 1.012 1.001-1.[address] [facility] Squamous epithelial cells de tection in urine sediment by light microscopyOrdered By: Misbah Greenwood on 11-12-2021 Epithelial cells.squamous LM Ql (Urine sed) 5-9 [HPF] 0-2 [facility] Urine bacteria detection by automated methodOrdered By: Misbah Greenwood on 11-12-2021 Bacteria Auto Ql (U) None seen None Seen [facility] Urine clarity by refractomet ry automatedOrdered By: Misbah Greenwood on 11-12-2021 Clarity Refractometry automated (U) Clear Clear [facility] Urine glucose measurement by automated test strip (mass/volume)Ordered By: Misbah Greenwood on 11-12-2021 Glucose Auto test strip (U) [Mass/Vol] Normal mg/dL Normal [facility] Urine hemoglobin detection b y automated test stripOrdered By: Misbah Greenwood on 11-12-2021 Hemoglobin Auto test strip Ql (U) Negative Negative [facility] Urine leukocyte esterase det ection by automated test stripOrdered By: Misbah Greenwood on 11-12-2021 Leukocyte esterase Auto test strip Ql (U) 1+ Negative [facility] Urine sediment renal epithel ial cell count by microscopy (number/high power field)Ordered By: Misbah Greenwood on 11-12-2021 Epithelial cells.renal LM.HPF (Urine sed) [#/Area] None seen [HPF] 0-1 [facility] Urobilinogen Auto test strip (U) [Mass/Vol]Ordered By: Misbah Greenwood on 11-12-2021 Urobilinogen (U) [Mass/Vol] Normal mg/dL Normal [facility] pH Auto test strip (U)Ordere d By: Misbah Greenwood on 11-12-2021 pH (U) 5.5 [pH] 5.0-9.0 [facility] SCREENING MAMMOGRAM W/DANIEL, BILATERAL*on 10-18-2021 SCREENING MAMMOGRAM [...] VERY IMPORTANT TO YOUR HEALTH. THE CURRENT [place] [employer] AND [employer]WORK GUIDELINES RECOMMEND ANNUAL MAMMOGRAPHY BEGINNING AT AGE 40. THIS FACILITY UTILIZES A REMINDER SYSTEM TO ENSURE ALL PATIENTS RECEIVE A REMINDER NOTIFICATION AT THE APPROPRIATE TIME BASED ON THE RECOMMENDATIONS OF THIS EXAM. BOARD CERTIFIED RADIOLOGIST. ACCREDITED BY THE [facility] AND FDA. Report reported and signed by Claudia Hinson on 10/21/2021 1432 Normal [facility] City Auditor [facility] CARDIAC STRESS/REST INJE CTIONon 08-28-2021 [facility] CARDIAC STRESS/REST INJECTION Addendum Begins Patient Name: ADINA EPRRY ADDENDUM: The resting ECG on this study was sinus bradycardia with incomplete right bundle branch block. The ejection fraction was 70% with a t.i.d 1.10. To a study from another institution from 2016 there has been no significant interval changes Electronically signed by: MARK ZAMBRANO MD Addendum Ends Patient Name: ADINA PERRY STUDY: MYOCARDIAL PERFUSION STRESS TEST WITH LEXISCAN Performing facility: [facility], [address] [place] [address], [address], [address] Provider: Mary Ayala MD PCP: Dr. Cruz Supervising provider: Mary Ayala MD INDICATION: CAD; SOBOE Nonischemic cardiomyopathy HISTORY: Gender: F; Age: 81 y/o ; Height: 149.8 cm; Weight: 52.7 kg. High Cholesterol; HTN; SOB; Denies smoking. COMPARISON: Previous nuclear testing completed [id number] at [facility]. ACCESSION NUMBER(S): [id number]; [id number]; [id number] ORDERING CLINICIAN: MARY AYALA TECHNIQUE: ONE DAY [...] Electronically signed by: MARK ZAMBRANO MD Normal [facility] No Panel Informationon 08-28 Normal -[facility] DO Work Phone: -[facility] [facility] DO Work Phone: [...] 07Jun2021 03:06PM Heart Rate60, L Brachial Artery Uwbxslkd481, LUE, Sitting Gexsnuyfc50, LUE, Sitting Height4 ft 11 in Vjdtfo735 lb BMI Bsamovzspc01.61 kg/m2 BSA Calculated1.41 Tobacco Useb) No PHQ-2 [...] Cardiovascular: carotid (more content not included)... Normal [facility] Tobacco Screening.on 022 Adult depression screening assessment No [facility] 250 DO Work Phone: Fall risk assessment a) No falls within the last year [facility] DO Work Phone: Tobacco use status CP b) No [facility] DO Work Phone: Tobacco Screening.on 021 Fall risk assessment a) No falls within the last year [facility] DO Work Phone: Tobacco use status CP b) No [facility] 250 DO Work Phone: No Panel Informationon 09-24 [facility] VIEO 450 DO Work Phone: [email or web address]} [facility] Spectropath SJsportif225 450 DO Work Phone: [facility] VIEO 450 DO Work Phone: Order Reconciliationon 09-24 [...] mcg) oral capsule 1 cap(s) orally Normal [facility] Coronavirus 2019 RNA by [...] make patient management decisions.Fact sheet for providers: https://www.fda.gov/media/938822/downloadFact sheet for patients: https://www.fda.gov/media/717797/downloadThis test has received FDA Emergency Use Authorization (EUA) and has been verified by [facility] ([facility]). This test is only authorized for the duration of time that circumstances exist to justify the authorization of the emergency use of in vitro diagnostic tests for the detection of SARS-CoV-2 virus and/or diagnosis of COVID-19 infection under section 564(b)(1) of the Act, 21 U.S.C. 360bbb-3(b)(1), unless the authorization is terminated or revoked sooner. [facility] is certified under CLIA-88 as qualified to perform high complexity testing. Testing is performed in the [facility] laboratories located at [address] [place] [address]. ED NOTEon 04-08-2019 ED NOTE HNO ID: [id number] Author: Maria Teresa (Rn) LINA Oliver Service: ? Author Type: Registered Nurse Type: ED Notes Filed: 04/08/2019 7:07 PM Note Text: Patient discharged per MD orders, RN at bedside to explain and review s/sx of worsening condition and to return to ED if worsening s/sx develop. Follow up care and questions answered with patient/family. [facility] ED NOTE HNO ID: [id number] Author: Lenore Casey (Rn) LINA Moyer Service: ? Author Type: Registered Nurse Type: ED Notes Filed: 04/08/2019 5:16 PM Note Text: Bed: ED-11H Expected date: Expected time: Means of arrival: Comments: [facility] ED NOTE HNO ID: [id number] Author: Maribell (MedicRebecca Guzman Service: ? Author Type: Senior Web Services Developer and Coal Briquette Machine Operator Type: ED Notes Filed: 04/08/2019 4:59 PM Note Text: Past 2 days left ear pain. Went to urgent care and her BP was high so sent here. [facility] ED PROV NOTEon 04-08-2019 ED PROV NOTE HNO ID: [id number] Author: Elenita Castillo Service: Emergency Medicine Author Type: Physician Electric Mule Operator Type: ED Provider Notes Filed: 04/09/2019 3:31 [...] of the extremities. 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 Mouth/Throat: Lips: The [place]. Mouth: Mucous membranes are moist. Pharynx: Oropharynx [...] SIGNATURE: STEVIE Solano Pa-C 04/09/19 1531 Normal [facility] Vital Signs Date Time Vital Sign Value Performing Clinician Facility 02-11-2023 09:05-0500 Body height 152.4 cm Eliecer Gray Other [facility] Other 02-11-2023 09:05-0500 Body mass index (BMI) [Ratio] 20.5 kg/m2 Eliecer Gray Other [facility] Other 02-11-2023 09:05-0500 Body temperature 97.7 [degF] Eliecer Gray Other [facility] Other 02-11-2023 09:05-0500 Body weight 47.63 kg Eliecer Gray Other [facility] Other 02-11-2023 09:05-0500 Diastolic blood pressure 93 mm[Hg] Eliecer Gray Other [facility] Other 02-11-2023 09:05-0500 Respiratory rate 18 /min Eliecer Gray Other [facility] Other 02-11-2023 09:05-0500 SaO2% (BldA) [Mass fraction] 97 % Eliecer Gray Other [facility] Other 02-11-2023 09:05-0500 Systolic blood pressure 166 mm[Hg] Eliecer Gray Other [facility] Other 02-02-2023 11:06-0400 Body height 142.2 cm Nick Wasserman MD Work Phone: [facility] 02-02-2023 11:06-0400 Body mass index (BMI) [Ratio] 24.21 kg/m2 Nick Wasserman MD Work Phone: [facility] 02-02-2023 11:06-0400 Body weight 48.99 kg Nick Wasserman MD Work Phone: [facility] 02-02-2023 11:06-0400 Diastolic blood pressure 58 mm[Hg] Nick Wasserman MD Work Phone: [facility] 02-02-2023 11:06-0400 Heart rate 60 /min Nick Wasserman MD Work Phone: [facility] 02-02-2023 11:06-0400 Systolic blood pressure 138 mm[Hg] Nick Wasserman MD Work Phone: [facility] 08-30-2022 10:55-0400 Body height 152.4 cm Luis Nolasco Other [facility] Other 08-30-2022 10:55-0400 Body mass index (BMI) [Ratio] 20.7 kg/m2 Luis Nolasco Other [facility] Other 08-30-2022 10:55-0400 Body temperature 97.8 [degF] Luis Nolasco Other [facility] Other 08-30-2022 10:55-0400 Body weight 48.08 kg Luis Nolasco Other [facility] Other 08-30-2022 10:55-0400 Diastolic blood pressure 70 mm[Hg] Luis Nolasco Other [employer] [facility] Other 08-30-2022 10:55-0400 Respiratory rate 18 /min Luis Nolasco Other [employer] [facility] Other 08-30-2022 10:55-0400 SaO2% (BldA) [Mass fraction] 97 % Luis Nolasco Other [employer] [facility] Other 08-30-2022 10:55-0400 Systolic blood pressure 123 mm[Hg] Luis Nolasco Other [employer] [facility] Other 03-06-2022 15:48-0500 Diastolic blood pressure 72 mm[Hg] Adriana Katherine Tirado-Jackson Work Phone: [facility] [employer] 250 DO Work Phone: 03-06-2022 15:48-0500 Systolic blood pressure 136 mm[Hg] Adriana D Tirado-Jackson Work Phone: [facility] 250 DO Work Phone: 03-06-2022 15:25-0500 Body height 144.78 cm Adriana D Tirado-Jackson Work Phone: [facility] 250 DO Work Phone: 03-06-2022 15:25-0500 Body mass index (BMI) [Ratio] 23.37 kg/m2 Adriana D Tirado-Jackson Work Phone: [facility] DO Work Phone: 03-06-2022 15:25-0500 Body surface area Derived from formula 1.38 m2 Adriana Murphy Tirado-Jackson Work Phone: [facility] DO Work Phone: 03-06-2022 15:25-0500 Body weight 48.99 kg Adriana Murphy Tirado-Jackson Work Phone: [facility] DO Work Phone: 03-06-2022 15:25-0500 Diastolic blood pressure 64 mm[Hg] Adriana Katherine Tirado-Jackson Work Phone: [facility] 250 DO Work Phone: 03-06-2022 15:25-0500 Heart rate 66 /min Adriana Murphy Tirado-Jackson Work Phone: [facility] 250 DO Work Phone: 03-06-2022 15:25-0500 Systolic blood pressure 154 mm[Hg] Adriana Murphy Tirado-Jackson Work Phone: [facility] 250 DO Work Phone: 01-17-2022 10:25-0400 Diastolic blood pressure 81 mm[Hg] Govea SALAM [facility] 01-17-2022 10:25-0400 Heart rate 55 /min Govea SALAM [facility] 01-17-2022 10:25-0400 Respiratory rate 14 /min Govea SALAM [facility] 01-17-2022 10:25-0400 SaO2% (BldA) [Mass fraction] 98 % Govea SALAM [facility] 01-17-2022 10:25-0400 Systolic blood pressure 158 mm[Hg] Govea SALAM [facility] 01-17-2022 10:10-0400 Diastolic blood pressure 64 mm[Hg] Govea SALAM [facility] 01-17-2022 10:10-0400 Heart rate 56 /min Govea SALAM [facility] 01-17-2022 10:10-0400 Respiratory rate 14 /min Govea SALAM [facility] 01-17-2022 10:10-0400 SaO2% (BldA) [Mass fraction] 100 % Govea SALAM [facility] 01-17-2022 10:10-0400 Systolic blood pressure 141 mm[Hg] Govea SALAM [facility] 01-17-2022 10:05-0400 Diastolic blood pressure 60 mm[Hg] Govea SALAM [facility] 01-17-2022 10:05-0400 Heart rate 57 /min Govea SALAM [facility] 01-17-2022 10:05-0400 Respiratory rate 14 /min Govea SALAM [facility] 01-17-2022 10:05-0400 SaO2% (BldA) [Mass fraction] 98 % Govea SALAM [facility] 01-17-2022 10:05-0400 Systolic blood pressure 131 mm[Hg] Govea SALAM [facility] 01-17-2022 09:56-0400 Body temperature 96.98 [degF] Govea SALAM [facility] 01-17-2022 07:50-0400 Blood Pressure Location Govea SALAM [facility] 01-17-2022 07:50-0400 Body temperature 98.06 [degF] Govea SALAM [facility] 01-10-2022 10:48-0400 Diastolic blood pressure 64 mm[Hg] Shi Sundeep [facility] 01-10-2022 10:48-0400 Mean blood pressure 95 mm[Hg] Shi Sundeep [facility] 01-10-2022 10:48-0400 Systolic blood pressure 158 mm[Hg] Shi Sundeep [facility] 01-10-2022 10:44-0400 Blood Pressure Location Shi Sundeep [facility] 01-10-2022 10:44-0400 Body temperature 97.34 [degF] Shi Sundeep [facility] 01-10-2022 10:44-0400 Diastolic blood pressure 73 mm[Hg] Shi Sundeep [facility] 01-10-2022 10:44-0400 Heart rate 51 /min Sih Sundeep [facility] 01-10-2022 10:44-0400 Systolic blood pressure 167 mm[Hg] Shi Sundeep [facility] 11-13-2021 00:00-0400 Diastolic blood pressure 68 mm[Hg] DO Adriana Tirado-Jackson Work Phone: [facility] 11-13-2021 00:00-0400 Heart rate 62 /min DO Adriana Tirado-Jackson Work Phone: [facility] 11-13-2021 00:00-0400 Respiratory rate 18 /min DO Adriana Tirado-Jackson Work Phone: [facility] 11-13-2021 00:00-0400 SaO2% (BldA) [Mass fraction] 100 % DO Adriana Tirado-Jackson Work Phone: [facility] 11-13-2021 00:00-0400 Systolic blood pressure 133 mm[Hg] DO Adriana Tirado-Jackson Work Phone: [facility] 11-12-2021 18:52-0400 Body height 144.78 cm DO Adriana Tirado-Jackson Work Phone: [facility] 11-12-2021 18:52-0400 Body temperature 98.1 [degF] DO Adriana Tirado-Jackson Work Phone: [facility] 11-12-2021 18:52-0400 Body weight 45.35 kg DO Adriana Tirado-Jackson Work Phone: [facility] 08-29-2021 10:00-0400 Body height 152.4 cm Clement Julius II Other [facility] Other 08-29-2021 10:00-0400 Body mass index (BMI) [Ratio] 20.5 kg/m2 Clement Linton II Other [employer] [facility] Other 08-29-2021 10:00-0400 Body weight 47.63 kg Clement Julius II Other [facility] Other 08-28-2021 00:00-0400 65 1 Adriana D Tirado-Jackson Work Phone: [facility] 250 DO Work Phone: Comment on above: [id number] 08-25-2021 12:25-0400 Body height 152.4 cm Eliecer Gray Other [facility] Other 08-25-2021 12:25-0400 Body mass index (BMI) [Ratio] 20.5 kg/m2 Eliecer Gray Other [facility] Other 08-25-2021 12:25-0400 Body temperature 97 [degF] Eliecer Gray Other [facility] Other 08-25-2021 12:25-0400 Body weight 47.63 kg Eliecer Gray Other [facility] Other 08-25-2021 12:25-0400 Diastolic blood pressure 67 mm[Hg] Eliecer Gray Other [facility] Other 08-25-2021 12:25-0400 Respiratory rate 16 /min Eliecer Gray Other [facility] Other 08-25-2021 12:25-0400 SaO2% (BldA) [Mass fraction] 96 % Eliecer Gray Other [facility] Other 08-25-2021 12:25-0400 Systolic blood pressure 141 mm[Hg] Eliecer Gray Other [facility] Other 06-07-2021 15:06-0500 Body height 149.86 cm Adriana Murphy Tirado-Jackson Work Phone: [facility] [email or web address] 250 DO Work Phone: 06-07-2021 15:06-0500 Body mass index (BMI) [Ratio] 21.61 kg/m2 Adriana Murphy Tirado-Jackson Work Phone: [facility] DO Work Phone: 06-07-2021 15:06-0500 Body surface area Derived from formula 1.41 m2 Adriana Murphy Tirado-Jackson Work Phone: [facility] 250 DO Work Phone: 06-07-2021 15:06-0500 Body weight 48.54 kg Adriana Murphy Tirado-Jackson Work Phone: [facility] DO Work Phone: 06-07-2021 15:06-0500 Diastolic blood pressure 62 mm[Hg] Adriana Murphy Tirado-Jackson Work Phone: [facility] [address] DO Work Phone: 06-07-2021 15:06-0500 Heart rate 60 /min Adriana Murphy Tirado-Jackson Work Phone: [facility] DO Work Phone: 06-07-2021 15:06-0500 Systolic blood pressure 125 mm[Hg] Adriana Murphy Tirado-Jackson Work Phone: [facility] [address] DO Work Phone: 03-05-2021 10:47-0500 Body height 149.86 cm Adriana Murphy Tirado-Jackson Work Phone: [facility] [address] DO Work Phone: 03-05-2021 10:47-0500 Body mass index (BMI) [Ratio] 22.02 kg/m2 Adriana Katherine [facility]ado-Jackson Work Phone: [facility] 250 DO Work Phone: 03-05-2021 10:47-0500 Body surface area Derived from formula 1.42 m2 Adriana Murphy [facility]ado-Jackson Work Phone: [facility] 250 DO Work Phone: 03-05-2021 10:47-0500 Body weight 49.44 kg Adriana D Tirado-Jackson Work Phone: [facility] DO Work Phone: 03-05-2021 10:47-0500 Diastolic blood pressure 66 mm[Hg] Adriana D Tirado-Jackson Work Phone: [facility] 250 DO Work Phone: 03-05-2021 10:47-0500 Heart rate 59 /min Adriana D Tirado-Jackson Work Phone: [facility] DO Work Phone: 03-05-2021 10:47-0500 Systolic blood pressure 127 mm[Hg] Adriana D Tirado-Jackson Work Phone: [facility] 250 DO Work Phone: Encounters Encounter Date Encounter Type Care Provider Facility Start: 04-10-2023 End: 04-11-2023 ambulatory ADRIANA D TIRADO-EMERY Not Available Start: 03-04-2023 End: 03-04-2023 ambulatory SHREYA MILLS Not Available Start: 02-18-2023 End: 02-18-2023 ambulatory ADRIANA D TIRADO-EMERY Not Available Start: 02-11-2023 Office outpatient vi sit 15 minutes Eliecer Gray [facility] Start: 02-11-2023 End: 02-11-2023 ambulatory Eliecer Gray Facility:[facility] Start: 02-11-2023 End: 02-11-2023 ambulatory DO Adriana Tirado-Jackson Work Phone: [facility] Work Phone: Start: 02-11-2023 End: 02-11-2023 Departed Referred DO Adriana Tirado-Jackson Work Phone: [facility] 250 Start: 02-02-2023 End: 02-02-2023 ambulatory Adriana Tirado-Jackson Facility: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 (Primary Dx); Essential hypertension, benign; Mixed hyperlipidemia; Nonischemic cardiomyopathy (CMS/HCC) Start: 12-18-2022 End: 12-18-2022 ambulatory Savanna Cassidy Other [facility] Other Start: 12-18-2022 Office outpatient vi sit 15 minutes Savanna Cassidy [facility] Start: 08-30-2022 End: 08-30-2022 ambulatory Luis Nolasco Other [facility]aris Other Start: 08-30-2022 Office outpatient vi sit 15 minutes Luis Nolasco [facility] Start: 05-14-2022 Chart Update Adriana Murphy Tirado-Jackson Work Phone: [facility] 250 DO Work Phone: Start: 03-06-2022 Office outpatient vi sit 15 minutes Adriana D Tirado-Jackson Work Phone: [facility] 250 DO Work Phone: Start: 03-06-2022 ambulatory Nick Wasserman II Facility: Start: 03-03-2022 End: 03-04-2022 ambulatory Jay E. Mourany Facility: [facility] Start: 02-25-2022 ambulatory Adriana Billie Tirado-Jackson Facility: Start: 02-24-2022 End: 02-25-2022 ambulatory Jay E. Mourany Facility:[facility] Start: 02-19-2022 End: 02-19-2022 ambulatory Jay E. Mourany Facility:[facility] Start: 02-04-2022 ambulatory Adriana Billie Tirado-Jackson Facility: Start: 02-04-2022 End: 02-05-2022 ambulatory Jay E. Mourany Facility:[facility] Start: 02-03-2022 End: 02-04-2022 ambulatory Jay E. Mourany Facility:[facility] Start: 01-17-2022 End: 01-18-2022 ambulatory Jeferson COPE Facility:[facility] Start: 01-17-2022 End: 01-17-2022 Patient encounter procedure Goveascott COPE [facility] Start: 01-13-2022 End: 01-14-2022 ambulatory Shi Urbano Facility:[facility] Start: 01-10-2022 End: 01-11-2022 ambulatory Shi Urbano Facility:[facility] Start: 01-10-2022 End: 01-11-2022 ambulatory Shi Urbano Facility:[facility] Start: 01-10-2022 Rx Renewal Adriana Tirado-Iván Work Phone: [facility] 250 DO Work Phone: Start: 01-10-2022 End: 01-10-2022 Patient encounter procedure Shi Urbano [facility] Start: 12-24-2021 ambulatory Adriana Tirado-Jackson Facility: Start: 11-14-2021 ambulatory Shi Urbano Facili ty:[facility] Start: 11-12-2021 End: 11-13-2021 Emergency department patient visit DO Adriana Tirado-Jackson Work Phone: [facility] Start: 08-30-2021 Chart Update Adriana Murphy Tirado-Jackson Work Phone: [facility] 250 DO Work Phone: Start: 08-29-2021 End: 08-29-2021 ambulatory Clement Julius II Other Alaris Other Start: 08-29-2021 Office outpatient ne w 45 minutes Clement Linton II [facility] Start: 08-28-2021 ambulatory Adriana Billie Tirado-Jackson Facility:90 Start: 08-25-2021 End: 08-25-2021 ambulatory Eliecer Delshire Other [employer] Other Start: 08-25-2021 Office outpatient vi sit 15 minutes Eliecer Isaac [facility] [address] Start: 08-08-2021 Patient encounter procedure Adriana Katherine Tirado-Jackson Work Phone: [facility] 600 DO Work Phone: Start: 06-07-2021 Office outpatient vi sit 25 minutes Adriana D Tirado-Jackson Work Phone: [facility] 250 DO Work Phone: Start: 06-07-2021 ambulatory Adriana Billie Tirado-Jackson Facility: Start: 03-05-2021 Office outpatient vi sit 25 minutes Adriana D Tirado-Jackson Work Phone: [facility] 250 DO Work Phone: Start: 09-28-2020 Chart Update Adriana Katherine Tirado-Jackson Work Phone: [facility] 450 DO Work Phone: Start: 09-24-2020 EUSANS, Provider: Vilma Salazar, Status: Pen, Time: 9:20 AM Adriana Murphy Tirado-Jackson Work Phone: FO-Uyidequisqhysvxg-Rr [facility] 450 DO Work Phone: Start: 09-23-2020 Chart Update Adriana Murphy Tirado-Jackson Work Phone: ZL-Zkcvldowxifiqbti-Ej [place] [facility] 450 DO Work Phone: Procedures Date Procedure Procedure Detail Performing Clinician Start: 01-17-2022 Colonoscopy Jeferson COPE Comment on above: biopsies, diverticulosis Start: 11-12-2021 Computed tomography of abdomen and pelvis with contrast DO Adriana Tirado-Jackson Work Phone: Start: 07-06-2020 Esophagogastroduodenoscopy Shi Blackmon [place] Comment on above: Dr Brannon Arthroplasty of knee Adriana D Tirado-Jackson Work Phone: Cholecystectomy Adriana D Tirado-Jackson Work Phone: Colonoscopy Shi Blackmonz Comment on above: 2010 Esophagogastroduodenoscopy M scott COPE Comment on above: normal, gastric biopsies Hysterectomy Adriana D Tirado-Jackson Work Phone: Operation on bladder Adriana D Tirado-Jackson Work Phone: Procedure on back Adriana D Tirado-Jackson Work Phone: SARS Antigen (LFIA) DO Sandr a Tirado-Jackson Work Phone: Total colonoscopy Adriana D Tirado-Jackson Work Phone: Urine culture DO Adriana Tirado-Jackson Work Phone: Plan of Treatment Date Care Activity Detail Author Start: 09-15-2023 End: 09-15-2023 Patient encounter procedure 09/15/2023 9:30 AM EDT Office Visit [facility] [address] [place] [address] Nick Wasserman MD [address] [place] [address] [facility] Start: 02-11-2023 Bacteria identified in Urine by Culture [facility] Start: 02-02-2023 End: 02-03-2024 Basic metabolic 2000 panel - Serum or Plasma Basic Metabolic Panel Lab Routine Nonischemic cardiomyopathy (CMS/HCC) Expected: 02/02/2023 (Approximate), Expires: 02/03/2024 [facility] Service Area Work Phone: Comment on above: Expected: 02/02/2023 (Approximate), Expires: 02/03/2024 Start: 02-02-2023 End: 02-03-2024 CBC panel - Blood by Automated count CBC Lab Routine Nonischemic cardiomyopathy (CMS/HCC) Expected: 02/02/2023 (Approximate), Expires: 02/03/2024 [facility] Work Phone: Comment on above: Expected: 02/02/2023 (Approximate), Expires: 02/03/2024 Start: 02-02-2023 End: 02-03-2024 Lipid 1996 panel - Serum or Plasma Lipid Panel Lab Routine Mixed hyperlipidemia Expected: 02/02/2023 (Approximate), Expires: 02/03/2024 [facility] Work Phone: Comment on above: Expected: 02/02/2023 (Approximate), Expires: 02/03/2024 Start: 10-28-2022 FUV, Provider: Nick Wasserman, Status: Rajiv, Time: 9:40 AM FUV, Provider: Nick Wasserman, Status: Rajiv, Time: 9:40 AM [facility] 250 DO Work Phone: Start: 03-06-2022 FUV, Provider: Nick Wasserman, Status: Rajiv, Time: 3:10 PM FUV, Provider: Nick Wasserman, Status: Pen, Time: 3:10 PM -[facility] 250 DO Work Phone: Start: 02-25-2022 COVID-19 Vaccine (4 - Moderna series) COVID-19 Vaccine (4 - Moderna series) [facility] Start: 12-24-2021 FUV, Provider: Nick Wasserman, Status: Pen, Time: 11:20 AM FUV, Provider: Nick Wasserman, Status: Pen, Time: 11:20 AM -[facility] 250 DO Work Phone: Start: 08-28-2021 STRESS NUC, Provider : MARI HHVI NUCLEAR 01,[id number], Status: Pen, Time: 12:00 PM STRESS NUC, Provider: MARI HHVI NUCLEAR 01,[id number], Status: Pen, Time: 12:00 PM -[facility] 600 DO Work Phone: Start: 06-07-2021 FUV, Provider: Nick Wasserman, Status: Pen, Time: 3:10 PM FUV, Provider: Nick Wasserman, Status: Pen, Time: 3:[address] [facility] 250 DO Work Phone: Start: 11-23-2020 VIRNPVDARIEL, Provider : Estefanía Iyer, Status: Pen, Time: 9:30 AM VIRNPVHOME, Provider: Estefanía Iyer, Status: Pen, Time: 9:30 AM [facility] [place] [facility] 450 DO Work Phone: Start: 1964 DTaP/Tdap/Td Vaccine s (1 - Tdap) DTaP/Tdap/Td Vaccines (1 - Tdap) [facility] Start: 1942 Lipid panel Lipid Panel [facility] Start: 1940 Medicare Annual Wellness Visit Medicare Annual Wellness Visit (AWV) [facility] Start: 1942 Screening for osteoporosis Bone Density Scan [facility] Patient Education Dehydration, Adult ([place]) [facility] Work Phone: Patient referral [facility] Work Phone: Immunizations Immunization Date Immunization Notes Care Provider Sheryl demarcoharry 01-16-2023 Influenza, Seasonal, Quadrivalent, Adjuvanted Nick Wasserman MD Work Phone: [facility] 01-11-2022 Fluzone High-Dose Quadrivalent 0.7 ML Intramuscular Suspension Prefilled Syringe Adriana Murphy Tirado-Jackson [facility] Work Phone: 12-31-2021 Pfizer COVID-19 Vac Bivalent 30 MCG/0.3ML Intramuscular Suspension Adriana Katherine Tirado-Jackson Work Phone: [facility] 250 DO Work Phone: 10-18-2021 Prevnar 20 0.5 ML Intramuscular Suspension Prefilled Syringe Adriana Murphy Tirado-Jackson [facility]: [facility] DO Work Phone: 04-03-2021 Moderna COVID-19 Vaccine 100 MCG/0.5ML Intramuscular Suspension Adriana Katherine Tirado-Jackson Work Phone: [facility] 250 DO Work Phone: 02-26-2021 influenza, high dose seasonal, preservative-free Adriana Changaver-Jackson Work Phone: [facility] 250 DO Work Phone: 05-30-2020 Moderna COVID-19 Vaccine 100 MCG/0.5ML Intramuscular Suspension Adriana Katherine Tirado-Jackson Work Phone: [facility] Comment on above: Reason for Medicatio n: Other (see comment) 05-07-2020 Moderna SARS-CoV-2 Vaccination Nick Wasserman MD Work Phone: [facility] Work Phone: 05-02-2020 Moderna COVID-19 Vaccine 100 MCG/0.5ML Intramuscular Suspension Adriana Cruz Work Phone: [facility] Comment on above: Reason for Medicatio n: Other (see comment) 04-02-2020 zoster vaccine recombinant Adriana D Tirado-Jackson Work Phone: [facility] 250 DO Work Phone: 02-01-2020 zoster vaccine recombinant Adriana D Tirado-Jackson Work Phone: [facility] 12-30-2019 Fluzone High-Dose Quadrivalent 0.7 ML Intramuscular Suspension Prefilled Syringe Adriana Tirado-Jackson Work Phone: [facility] 01-04-2019 influenza, high dose seasonal, preservative-free Adriana D Tirado-Jackson Work Phone: [facility] 12-18-2017 influenza, high dose seasonal, preservative-free Adriana D Tirado-Jackson Work Phone: [facility] NEGATED: Highlighted row has not occurred!01-10-2022 influenza virus vaccine, unspecified formulation Shi Urbano [facility] Payers Date Payer Category Payer Self-pay [id number] 2022 Medicare HUMANA MEDICARE HUMANA GOLD CHOICE [id number] 2022-Present [address] [address] [place] [address] [id number] 2020 Private Health Insurance [id number] 2.16.840.1.902862.19 2019 Unknown 2019 Unknown [id number] 2.16.840.1.835624.19 1942 Unknown [id number] 2.16.840.1.773826.3.579.2 .727 1942 Unknown [id number] 2.16.840.1.018091.3.579.2 .72 1942 Unknown [id number] 2.16.840.1.497803.3.579.2 .72 1942 Unknown [id number] 2.16.840.1.853355.3.579.2 .72 1942 Unknown [id number] 2.16.840.1.527340.3.579.2 .72 1942 Unknown [id number] 2.16.840.1.202050.3.579.2 1942 Unknown [id number] 2.16.840.1.405619.3.579.2 1942 Unknown [id number] 2.16.840.1.421909.3.579.2 72 1942 Unknown [id number] 2.16.840.1.529342.3.579.2 72 1942 Unknown [id number] 2.16.840.1.018793.3.579.2 72 1942 Unknown [id number] 2.16.840.1.488420.3.579.2 .356 1942 Unknown [id number] 2.16.840.1.049484.3.579.2 .356 1942 Unknown [id number] 2.16.840.1.470386.3.579.2 .356 1942 Unknown [id number] 2.16.840.1.288031.3.579.2 .356 1942 Unknown [id number] 2.16.840.1.567822.3.579.2 .356 1942 Unknown [id number] 2.16.840.1.237850.3.579.2 .356 1942 Unknown [id number] 2.16.840.1.506446.3.579.2 .1244 1942 Unknown [id number] 2.16.840.1.878918.3.579.2 .1259 1942 Unknown [id number] 2.16.840.1.731317.3.579.2 .1259 1942 Unknown [id number] 2.16.840.1.140997.3.579.2 .1259 Medicare [id number] Medicare Medicare [id number] Unknown [id number] 2.16.840.1.407673.3.579.2 .531 Unknown [id number] 2.16.840.1.387510.3.579.2 .531 Social History Date Type Detail Facility Start: 02-02-2023 Daily caffeine consumption Daily caffeine consumption -[facility] DO Work Phone: Comment on above: tea and a dr. dunbar ; Start: 02-02-2023 Sex Assigned At N [facility] [employer] Other Start: 11-12-2021 End: 11-12-2021 Tobacco smoking status WIIS Never smoked tobacco (finding) [facility] Start: 1940 Sex Assigned At Female F [facility] Tobacco smoking status Never [facility] Start: 02-02-2023 Tobacco use and exposure Smokeless tobacco non-user [facility] Work Phone: Start: 02-02-2023 Alcohol intake Lifetime non-d arcelia (finding) [facility] Work Phone: Start: 1940 Sex Assigned At Not on file [facility] Work Phone: Start: 01-23-2023 End: 02-02-2023 Exposure to SARS-CoV-2 (event) Not sure [facility] Functional Status Date Assessment Result Facility 01-17-2022 Functional Status N/A Chivo Kidd [facility] 01-10-2022 Functional Status N/A [facility] Clinical Notes 08-25-2021 to 02-11-2023 [...] She understands and agrees with the plan. [facility] Other 10-30-2023 History of Present illness Narrative* [...] Rfl: Assessment/Plan 1. 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 2. Essential hypertension, benign Well-controlled on current therapy 3. Mixed hyperlipidemia Well-controlled on current therapy 4. Nonischemic cardiomyopathy (CMS/HCC) No manifestations of heart failure detectable today. [facility] Work Phone: [phone] Instructions* Patient Instructions* Dante Jacob MA - [...] time of your visit. [facility] Work Phone: [phone] 581-221809-14-2023 Evaluation note* Encounter Date Diagnosis Assessment Notes Treatment Notes Treatment Clinical Notes Dec, Arthritis of left knee (ICD-10 - M17.12) Patient was prepped and coritone was injected into the left knee under sterile conditions. Patient tolerated well with no adverse reactions. Activity as tolerate. [facility] Other 05-27-2023 Evaluation note* Encounter Date Diagnosis [...] Pt understood and agreed to treatment plan. [facility] Other 12-06-2022 NoteAdmission and Discharge Information Admitting [...] levels flattened. Cardiology consultation was placed at [facility] cardiology group Dr. Wasserman who patient [...] 73.9 % Lymph Auto - 12.3 % Highland Auto - 7.4 % Eos Auto - 3.6 % Basophil Auto - 2.8 % Neutro Absolute - 6.2 E9/L Lymph Absolute - 1.0 E9/L Highland Absolute - 0.6 E9/L Eos Absolute - [...] Est - 1+ U (more content not included)...[facility]: Result Comment: Electronically Signed By: Yolanda SALAS\.br\Date and Time Signed: 03/10/22 20:44 EST\.br\Electronically Co-Signed By: Pantera QUICK MD\.br\Date and Time Co-Signed: 03/11/2210:53 [id number] NoteMicrobiology PROCEDURE: Blood Culture Charcoal [R1] SOURCE: Blood BODY SITE: Arm R COLLECTED DATE/TIME: 02/24/2022 13:54 EST RECEIVED DATE/TIME: 02/24/2022 14:07 EST START DATE/TIME: 02/24/2022 14:07 EST FREE TEXT SOURCE: Jay Emery DO, DO, John FINAL REPORTS Final Report [] Verified Date/Time: 03/03/2022 18:00 EST No growth at 7 days. Performing Locations R1: This test was performed at: [facility], [address] [place] [address], [address] [place], [place] [address]Comment on above:Performed By: #### [id number] #### [address] [id number] NoteMicrobiology PROCEDURE: Blood Culture Charcoal [R1] SOURCE: Blood BODY SITE: Arm L COLLECTED DATE/TIME: 02/24/2022 13:44 EST RECEIVED DATE/TIME: 02/24/2022 14:08 EST START DATE/TIME: 02/24/2022 14:08 EST FREE TEXT SOURCE: IV Jay Jarrett DO, DO, John FINAL REPORTS Final Report [] Verified Date/Time: 03/03/2022 18:00 EST No growth at 7 days. Performing Locations R1: [facility], [address] [place] [address], [address] [place], [place] [address]Comment on above:Performed By: #### [id number] ####[facility] [address] [place] [address] [id number] NoteHOSPITAL REGULATIONS: All Positive and Important Negative [...] a surgery isunclear to me. ALLERGIES:Percocet, Darvocet, [place], Oxycodone. PSYCHOSOCIAL HISTORY:Nonsmoker, nondrinker. FAMILY HISTORY:Diabetes, heart disease, lung cancer. REVIEW OF SYSTEMS:Otherwise negative, normal and noncontributory. PHYSICAL EXAMINATION: Vital signs: An ill appearing female. She is uncomfortable and moves slowly. Her blood pressure vma765/66, pulse 64, respirations 16, temperature 36.8, weight [...] hospitalization. Jaime Wasserman M.D. young Dictated: 02/26/2022 [id number] Transcribed: 02/26/2022 cc:Adriana Cruz D.O.[facility] HospitalComment on above: Result Comment: Electronically Signed By: Lisy ERIC, Nick iSfuentes.basia\Date and Time Signed: 02/27/22 14:23 [id number] NotePT Evaluation done this date. Pt. with on AM-PAC this date. She is safe and independent with all functional activities with no further PT needs.[facility]11-22-2022 Note Chief Complaint Had hernia repair [...] Lymph Auto: 12.3 % Low (02/24/22 13:54:00) Highland Auto: 7.4 % (02/24/22 13:54:00) Eos Auto: 3.6 % (02/24/22 13:54:00) Basophil Auto: 2.8 % High (02/24/22 13:54:00) Neutro Absolute: 6.2 E9/L (02/24/22 13:54:00) Lymph Absolute: 1 E9/L (02/24/22 13:54:00) Highland Absolute: 0.6 E9/L (02/24/22 13:54:00) Eos Absolute: [...] (02/24/22 14:55:00) UA C (more content not included)...[facility] HospitalComment on above: Result Comment: Electronically Signed By: Yolanda SALAS\.br\Date and Time Signed: 02/24/22 21:25 EST\.br\Electronically Co-Signed By: Yolanda SALAS\.br\Date and Time Co-Signed: 02/24/22 21:27 EST\.br\Electronically Co-Signed By: J Carlos KEN MD\.br\Date and Time Co-Signed: 02/25/22 07:18 [id number] Notegeneral surgery interval progress note: S.81 y/o [...] the patient and her daughter, including recoveryand [facility] Comment on above:Result Comment: Electronically Signed By: Jannet ERIC, Jay Lua.br\Date and Time Signed: 02/24/22 14:56 [id number] NoteHistory and Physical Update H&P Reviewed. Patient [...] mg= 1 mL, IV Push, q5min, PRN [place] 325 mg-5 mg oral tablet, 1 tab(s), [...] disease: Father. Primary malignant neoplasm of lung: Sister.[facility]11-02-2022 [id number]:[address] [place], [place] 3630310-17-2022 [id number]:[address] [place], [place] 3630310-14-2022 Evaluation + Plan noteExtracted from: Title:ANES POSTOP Author:Eliecer Pennington DO Date: 01/17/22 Plan Transfer/ Discharge: Patient can be discharged from PACU when criteria met. Condition good. Extracted from: Title:FRANCISCA PREOP ENDO NOTE Author:Waylon Pennington DO Date:01/17/22 Plan [place] [employer]esthesiologists (ASA) physical status classification: [...] Date:02/03/2022 10:20:00 AM Scheduled Provider:Jay Power MD Location:[facility] Appointment Type:[address]10-14-2022 Hospital Discharge instructions Patient Education 01/17/2022 [...] what activities are safe for you. Take giih-htz-lagejiu and prescription medicines only as told by [...] 09/21/2012 Document Revised: 09/14/2018 Document Reviewed: 08/23/2018 [employer] Patient Education 2020 [employer]. 01/17/2022 10:08:02 Colonoscopy, Care After Surgery Salam (CUSTOM) Colonoscopy Care After Surgery Please read the instructions outlined below and refer to this sheet in the next few weeks. These discharge instructions provide you with general information on caring for yourself after you leave thespital. Your doctor may also give you specific [...] unsweetened, w/added ascorbic acid 1 cup 0.5 [place] 1 cup 0.7 Vegetables Cooked Green beans 1 cup 4.0 Carrots 1/2 cup sliced 2.3 Peas 1 cup 8.8 Potato (baked, with skin) 1 medium potato 3.8 Raw [place] (with peel) 1 cucumber 1.5 Lettuce 1 [...] 8.7 Peanuts 1/2 cup 7.9 Chart from [employer] 2013. SEEK IMMEDIATE MEDICAL CARE IF: You [...] Nutrient Database for Standard Reference. Available at http://www.Instabug.bookjam.gov/fnic/foodcomp/search/. Information adapted from: [facility] Patient Information 2010 [employer]. [employer] 2013 http://www.CartMomo/contents/nwtxjllkvkqs-jwsauty-vrxvlg-the-basics Follow Up Care 01/10/2022 12:34:05 With:Jeferson COPE Address: [address] [place] [address]. [address] [place] [address] Business (1) When: Unknown Comments:office will call for follow up [facility]10-07-2022 Hospital Discharge instructions Patient Education 01/10/2022 [...] find a support group online or in [facility]. General instructions Take vtdx-ehh-fxexuur and prescription medicines only as told by [...] International Foundation for Functional Gastrointestinal Disorders: iffgd.org [employer]: patients.gi.org Contact a health [...] restrictions, lifestyle changes, and skin care. Take ocnf-dzc-ubezffu and prescription medicines only as told by [...] 03/04/2005 Document Revised: 08/05/2018 Document Reviewed: 08/05/2018 [employer] Patient Education 2020 [employer]. 01/10/2022 10:49:37 Colonoscopy, Adult Colonoscopy, Adult A [...] including vitamins, herbs, eye drops, creams, and obps-one-emesroe medicines. Any problems you or family members [...] 03/20/2001 Document Revised: 01/13/2018 Document Reviewed: 06/03/2016 [employer] Patient Education 2020 [employer]. Follow Up Care 11/13/2021 10:56:24 With:Shi Urbano CNP Address: When:1 to 2 weeks [facility] 05-26-2022 Evaluation note* Encounter Date [...] consider an injection in the left knee. [facility] Other 05-22-2022 Evaluation note* Encounter Date Diagnosis [...] Pt understands and agrees with the plan. 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- Primary Essential hypertension, benign Mixed hyperlipidemia Nonischemic cardiomyopathy (CMS/HCC) Other primary cardiomyopathies documented in this encounter [facility] Work Phone: History general Narrative - Reported* Type Description Date Medical History high cholesterol Medical History high blood pressure Medical History [facility] Medical History asthma Surgical History right knee repacement Surgical History gall bladder Surgical History hysterectomy Surgical History carpal tunnel release Hospitalization History [facility] Other History of Present illness Narrative* Patient [...] other recommendation for changes in medical therapy. -[facility] [address] DO Work Phone: [phone] of Present illness Narrative* Symptoms better with [...] appears to be adequate and appropriate. [facility] Work Phone: History of Present [...] which appears to be adequate and appropriate. [facility] Katrina Delaney DO Work Phone: History of Present [...] no change and she will [facility] Katrina Delaney DO Work Phone: Hospital course Narrative No data available for this section [facility] Hospital Discharge instructions Additional Instructions Increase your intake of fluids. Take Zofran as prescribed for nausea. Follow-up with your primary care physician for reevaluation in 3 to 5 days.[facility] Work Phone: Progress note No data available for this section [facility] Reason for referral (narrative)* Consultation (Routine) - Authorized Specialty Diagnoses / Procedures Referred By Contac t Referred To Contact Cardiology Diagnoses Essential hypertension, benign Procedures Follow Up In Cardiology Nick Wasserman MD [address] [place] [address] 2, [place] [address] [place] [id number] Nick Wasserman MD [address] [place] [address] 2, [place] [address] [place] [address] Referral ID Status Reason Start Date Expiration Date V isits Requested Visits Authorized [id number] Authorized 02/02/2023 02/02/2024 1 1 T [facility] Work Phone: Summary Purpose Family History No [...] section and content) DATE CREATED AUTHOR 04/09/2019 [facility] DATE CREATED AUTHOR AUTHOR'S ORGANIZ ATION 11/20/2020 [facility] DATE CREATED AUTHOR AUTHOR'S ORGANIZ ATION 09/01/2021 [facility] DATE CREATED AUTHOR AUTHOR'S ORGANIZ ATION 10/25/2021 [facility] dical Specialist DATE CREATED AUTHOR AUTHOR'S ORGANIZ ATION 03/07/2022 [employer] DATE CREATED AUTHOR AUTHOR'S ORGANIZ ATION 03/11/2022 [facility] ical [facility] DATE CREATED AUTHOR AUTHOR'S ORGANIZ ATION 04/01/2022 [facility] Center DATE CREATED AUTHOR AUTHOR'S ORGANIZ ATION 02/03/2023 [facility] DATE CREATED AUTHOR AUTHOR'S ORGANIZ ATION 02/20/2023 [facility] DATE CREATED AUTHOR AUTHOR'S ORGANIZ ATION 03/21/2023 [facility] DATE CREATED AUTHOR AUTHOR'S ORGANIZ ATION 04/14/2023 [facility] dical Specialists EPIC REASON FOR VISIT [...] Active Misbah Greenwood DO Emergency Provider Active Appointment Scheduler Relationship Specialty Start Date End Date Adriana Cruz DO [address] [facility] [place], [place] [phone] PCP - General 09/17/20 Team Status: Inactive Member Role Status Dates Adriana Cruz DO Primary Care Provider Active Eliecer Gray , ELECTRONIC SECURITY TECHNICIAN-C Attending Provider Activ e Goals (unrecognized section [...] BE BASED ON THE PRIMARY CLINICAL RECORDS. [facility] [employer] [facility]. provides no warranty or guarantee of the accuracy or completeness of information in this document.
== END 2023-04-17 12:22 | disposition home or self-care (01) ==
LOC: VC 12:21
PROVIDERS: PCP Radiology Diagnostic Radiology; Visit Provider Radiology Diagnostic Radiology
DX: I80.01 Phlebitis and thrombophlebitis of superficial vessels of right lower extremity (principal)
CPT/HCPCS: 93971; G0463

== ENCOUNTER 2023-04-21 13:49 | Outpatient (OUT) | payer MEDICARE, OTHER, SELFPAY ==
--- NOTE | 2023-04-21 13:49 | VEIN_ITS ---
The [address] [address] Patient Name: ADINA PERRY MRN: [id number] date: 1940 Sex: F Assigned Patient Location: Current Patient Location: Accession/Order Number: [id number] Exam Date: 04/21/2023 13:55 Report Date: 04/21/2023 15:14 At the request of: SHAMIKA FLORES Procedure: VC INJ Foam Sclerosant WUS AIR TRAFFIC CONTROL SPECIALIST PROCEDURE: VC INJ Foam Sclerosant WUS MT, left leg COMPARISON: None. HISTORY: I83.813 Bilateral painful varicose veins Pre-operative Diagnosis: CEAP class C4a venous insufficiency with pain, tenderness, edema and incompetent left saphenous and varicose vein(s), chronic venous insufficiency left leg secondary to venous incompetence Post-operative Diagnosis: CEAP class C4a venous insufficiency with pain, tenderness, edema and incompetent left saphenous and varicose vein(s), chronic venous insufficiency left leg secondary to venous incompetence Procedure Performed: 1. Ultrasound-guided microfoam chemical ablation with Varithenaregistered 2. Intraoperative ultrasound guidance Anesthesia: None Indications for Procedure: 82-year-old female who presents with a long history of lower extremity pain and swelling varicose veins resulting in significant hemosiderin staining. The patient failed conservative medical therapy including medical compression stockings, exercise and analgesics. Prior procedures include endovenous laser ablation. Multiple incompetent varicosities of the left leg. Duplex scan showed reflux and enlarged diameters up to 6 mm. The patient underwent informed consent including management options where the complications of infection, bleeding, pain, and skin injury were discussed. Particular attention was spent discussing thrombus extension and deep vein thrombosis as well as the possibility of pulmonary embolus and treatment with oral or injectable blood thinners. Procedure: The patient walked to the procedure room. All applicable staff donned appropriate apparel. A procedure timeout was performed to confirm correct patient, correct extremity, correct procedure, and correct room set-up including presence of all applicable supplies, devices, and drugs. A duplex ultrasound, performed by myself confirmed the location and incompetence of branch saphenous varicosities and their course was marked on the skin together with the dilated tributaries. The extent of treatment of the vein and the associated varicosities was determined through ultrasound mapping. The skin was prepped and then punctured with a butterfly needle and advanced under ultrasound guidance. The Varithenaregistered canister was activated and the canister was primed and purged as required in the instructions for use. Varithenaregistered was drawn into a sterile syringe. The following injections were made: 7 cc injected into a 6 mm varicose vein left distal medial knee 4 cc injected into a 4 mm varicose vein mid anterior left thigh 2 cc injected into a 3 mm varicose vein left mid anterior herrera Varithenaregistered was slowly administered at 0.5-1.0 cc/second with close observation by ultrasound of its course in the vessels. Total volume utilized was: 13cc. Following administration of Varithenaregistered the leg was elevated and the patient was asked to repeatedly dorsiflex the ankle to limit flow of Varithenaregistered into perforating veins. Once appropriate spasm had been confirmed in the treated veins, the vascular catheter was removed from the leg and light pressure was applied over the puncture site for hemostasis. The common femoral and deep superficial veins were then evaluated for flow and compressibility prior to dressing placement. The lower extremity was kept elevated at 45 degrees above the horizontal and cording material was applied over the saphenous segments and tributaries to allow for eccentric compression over the target vessels including the targeted saphenous vein(s). A multilayer dressing was applied consisting of foam pads, coban and thigh-high 20-30 mm Hg compression elastic support hose were placed on the patient. The leg was lowered only after compression had been applied and the patient was immediately ambulatory. The patient ambulated 10 minutes under supervision and was without apparent concerns at time of release. Post-care instructions include advising patient to keep post-treatment bandages in place and dry for 48 hours, avoid extended periods of inactivity, avoid heavy exercise for one week, wear compression stockings on the treated leg continuously for two weeks, to walk daily for 10 minutes over the next month. The patient was instructed to take an anti-inflammatory medicine as needed and to follow up for color duplex scan of the Saphenous veins, the treated branch saphenous varicosities, the adjacent deep veins, and additional treatment within 7 days. PERSONNEL: Alexey Sosa RN Electronically authenticated by: SHAMIKA FLORES Date: 04/21/2023 15:14
== END 2023-04-21 13:50 | disposition home or self-care (01) ==
LOC: VC 13:49
PROVIDERS: PCP Radiology Diagnostic Radiology; Visit Provider Radiology Diagnostic Radiology
DX: I83.813 Varicose veins of bilateral lower extremities with pain (principal)
CPT/HCPCS: 36466

== ENCOUNTER 2023-04-27 10:47 | Outpatient (OUT) | payer MEDICARE, OTHER, SELFPAY ==
--- NOTE | 2023-04-27 10:50 | VEIN_ITS ---
Patient Name: ADINA PERRY MR#: [id number] : 1940 Exam Date: 04/27/2023 Ordering Doctor: DR JESUS DAAM M.D. RADIOLOGY REPORT PROCEDURE: VC EXT VENOUS LT LIMITED COMPARISON: VC EXT VENOUS LT LIMITED, 04/10/2023. INDICATIONS: Phlebitis of superficial veins of lt lower extremity I80.02 TECHNIQUE: Lower extremity patel scale and Duplex Doppler evaluation of the deep venous system from the inguinal ligament through the calf veins. FINDINGS: REGION: Left lower extremity. THROMBI: Negative for DVT. COMPRESSIBILITY: Non-compressible segments corresponding to thrombus FLOW: Areas of no flow corresponding to thrombus OTHER: All areas treated with Varithena microfoam are seen with echogenic thrombus. No patent varicose veins visualized. CONCLUSION: Post ablation occlusion of treated left leg varicose veins Dictated by: Jesus Adam MD on 04/27/2023 at 11:25 Approved by: Jesus Adam MD on 04/27/2023 at 11:26
--- NOTE | 2023-04-27 10:50 | VEIN_ITS ---
Patient Name: ADINA PERRY MR#: [id number] : 1940 Exam Date: 04/27/2023 Ordering Doctor: DR JESUS ADAM M.D. RADIOLOGY REPORT PROCEDURE: FACILITY EST LMTD [facility]IN [facility] - OFFICE VISIT FOLLOW UP COMPARISON: FACILITY EST LMTD, 04/17/2023. FACILITY EST LMTD, 04/10/2023. PROGRESS NOTES: The patient reports some mild tenderness of the left leg following micro foam chemical ablation. The patient has worn her compression stocking. The patient did require analgesics. The patient has exercise by walking at [employer]. Physical exam demonstrates multiple thrombosed left leg varicose veins with some hemosiderin staining in bruising. No erythema or warmth to suggest cellulitis or thrombophlebitis. No active ulceration Review of the ultrasound performed the same day demonstrates occlusive thrombus extending throughout the treated left leg varicose veins. No deep vein thrombus. No residual varicose veins on the left The patient expressed a desire to proceed with treatment of right leg incompetent varicose veins with micro foam chemical ablation. VEIN/ Facility EST LMTD IMPRESSION: 1. Successful ablation of treated left leg varicose veins 2. Persistent incompetent patent right leg varicose veins. PLAN: Micro foam chemical ablation right leg incompetent varicose veins Nurse notes, history and physical were reviewed and confirmed, see attached forms. The nurse was present throughout the physical exam and consultation Dictated by: Jesus Adam MD on 04/27/2023 at 12:09 Approved by: Jesus Adam MD on 04/27/2023 at 12:10
== END 2023-04-27 10:48 | disposition home or self-care (01) ==
LOC: VC 10:48
PROVIDERS: PCP Radiology Diagnostic Radiology; Visit Provider Radiology Diagnostic Radiology
DX: I80.02 Phlebitis and thrombophlebitis of superficial vessels of left lower extremity (principal)
CPT/HCPCS: 93971; G0463

== ENCOUNTER 2023-04-28 09:14 | Outpatient (OUT) | payer MEDICARE, OTHER, SELFPAY ==
--- NOTE | 2023-04-28 09:26 | VEIN_ITS ---
The [address] [address] Patient Name: ADINA PERRY MRN: [id number] date: 1940 Sex: F Assigned Patient Location: Current Patient Location: Accession/Order Number: [id number] Exam Date: 04/28/2023 09:26 Report Date: 04/28/2023 10:32 At the request of: SHAMIKA FLORES Procedure: VC INJ Foam Sclerosant WUS MARKETING SUPPORT SPECIALIST PROCEDURE: VC INJ Foam Sclerosant WUS MARKETING SUPPORT SPECIALIST, right leg COMPARISON: None. HISTORY: Pain due to varicose veins of bilateral legs I83.813 Pre-operative Diagnosis: CEAP class C4a venous insufficiency with pain, tenderness, edema and incompetent right saphenous and varicose vein(s), chronic venous insufficiency right leg secondary to venous incompetence Post-operative Diagnosis: CEAP class C4a venous insufficiency with pain, tenderness, edema and incompetent right saphenous and varicose vein(s), chronic venous insufficiency right leg secondary to venous incompetence Procedure Performed: 1. Ultrasound-guided microfoam chemical ablation with Varithenaregistered 2. Intraoperative ultrasound guidance Anesthesia: None Indications for Procedure: 82-year-old female who presents with a long history of lower leg pain and swelling varicose veins with hemosiderin staining. The patient failed conservative medical therapy including medical compression stockings, exercise and analgesics. Prior procedures include a venous laser ablation and Microfoam chemical ablation. Multiple incompetent varicosities of the right leg. Duplex scan showed reflux and enlarged diameters up to 4 mm. The patient underwent informed consent including management options where the complications of infection, bleeding, pain, and skin injury were discussed. Particular attention was spent discussing thrombus extension and deep vein thrombosis as well as the possibility of pulmonary embolus and treatment with oral or injectable blood thinners. Procedure: The patient walked to the procedure room. All applicable staff donned appropriate apparel. A procedure timeout was performed to confirm correct patient, correct extremity, correct procedure, and correct room set-up including presence of all applicable supplies, devices, and drugs. A duplex ultrasound, performed by myself confirmed the location and incompetence of branch saphenous varicosities and their course was marked on the skin together with the dilated tributaries. The extent of treatment of the vein and the associated varicosities was determined through ultrasound mapping. The skin was prepped and then punctured with a butterfly needle and advanced under ultrasound guidance. The Varithenaregistered canister was activated and the canister was primed and purged as required in the instructions for use. Varithenaregistered was drawn into a sterile syringe. The following injections were made: 5 cc injected into a patent 4 mm incompetent distal right great saphenous vein at the level of the ankle 3 cc injected into a 3 mm varicose vein right lateral knee 4 cc injected into a 4 mm varicose vein medial mid to distal right thigh 2 cc injected into a 3 mm varicose vein right popliteal fossa Varithenaregistered was slowly administered at 0.5-1.0 cc/second with close observation by ultrasound of its course in the vessels. Total volume utilized was: 14cc. Following administration of Varithenaregistered the leg was elevated and the patient was asked to repeatedly dorsiflex the ankle to limit flow of Varithenaregistered into perforating veins. Once appropriate spasm had been confirmed in the treated veins, the vascular catheter was removed from the leg and light pressure was applied over the puncture site for hemostasis. The common femoral and deep superficial veins were then evaluated for flow and compressibility prior to dressing placement. The lower extremity was kept elevated at 45 degrees above the horizontal and cording material was applied over the saphenous segments and tributaries to allow for eccentric compression over the target vessels including the targeted saphenous vein(s). A multilayer dressing was applied consisting of foam pads, coban and thigh-high 20-30 mm Hg compression elastic support hose were placed on the patient. The leg was lowered only after compression had been applied and the patient was immediately ambulatory. The patient ambulated 10 minutes under supervision and was without apparent concerns at time of release. Post-care instructions include advising patient to keep post-treatment bandages in place and dry for 48 hours, avoid extended periods of inactivity, avoid heavy exercise for one week, wear compression stockings on the treated leg continuously for two weeks, to walk daily for 10 minutes over the next month. The patient was instructed to take an anti-inflammatory medicine as needed and to follow up for color duplex scan of the Saphenous veins, the treated branch saphenous varicosities, the adjacent deep veins, and additional treatment within 7 days. PERSONNEL: Alexey Sosa RN VEIN/VC INJ Foam Sclerosant WUS MARKETING SUPPORT SPECIALIST IMPRESSION: Technically successful Microfoam chemical ablation right leg incompetent varicose veins Electronically authenticated by: SHAMIKA FLORES Date: 04/28/2023 10:32
--- OUTSIDE RECORDS SUMMARY | 2023-04-28 09:29 | XMS_ITS | CCD ---
Author Name Unknown Address [address] [place] [address] Organization [facility] Care Team Providers Care Crtts Name Role Phone Adriana Cruz Unavailable [phone] Unavailable Unavailable Clement Madrid II Unavailable [phone] Eliecer Gray Unavailable DO Adrinaa Cruz Primary Care Provider [phone] DO Misbah Greenwood Emergency Provider [facility] Primary Care Physician Shi Urbano Attending Unavailable Shi Urbano Admitting Unavailable Shi Urbano Attending Unavailable Shi Urbano Admitting Unavailable Jay Power Consulting Unavailable J Carlos KEN Attending Unavailable J Carlos KEN Admitting Unavailable Jay Power Consulting Unavailable Jay Power Consulting Unavailable Jay Power Consulting Unavailable MD Mary Ayala Consulting Unavailab Mary Cardona Consulting Unavailable Mary Ayala Consulting Unavailable Mary Ayala Consulting Unavailable Trabgautam Moaguilar Consulting Unavailable Trabcalvini Moaguilar Consulting Unavailable Mitchel Moaguilar Consulting Unavailable [...] Jeferson Attending Unavailable SALAM, Jeferson Admitting Unavailable Tirado-[place], Adriana Billie Primary Care Unava ilable Tirado-[place], Adriana Billie Primary Care Unava ilable McGuinn II, Nick Garduno Attending Unav ailable McGuinn II, Nick Garduno Attending Unav ailable [place]ado-[place], Adriana Billie Primary Care Unava ilable McGuinn II, Nick Garduno Referring Unav ailable Tirado-[place], Adriana Billie Primary Care Unava ilable McGuinn II, Nick Garduno Referring Unav ailable McGuinn II, Nick Garduno Attending Unav ailable [place]ado-[place], Adriana Billie Primary Care Unava ilable Tirado-[place], Adriana Billie Primary Care Unava ilable McGuinn II, Nick Garduno Attending Unav ailable Luis Nolasco Unavailable Savanna Cassidy Unavailable [place] DO, Adriana Billie Primary Care Provi octavio Tirado-[place], DO Adriana Primary Care Provider MD Nick Wasserman Attending Provider NICK WASSERMAN Attending Unavailable TIRADO-EMERY, ADRIANA BILLIE Primary Care Unava ilable Tirado[place], DO Adriana Primary Care Provider MD Nick Wasserman Attending Provider LIT Gray Attending Provider Tirado[place], Adriana Primary Care Unavailable Nick Wasserman Admitting Unavail able Nick Wasserman Attending Unavail able Eliecer Gray Attending Unavaila ble Tirado-[place], Adriana Primary Care Unavailable Eliecer Gray Admitting Unavaila ble TIRADO-EMERADRIANA Jimenez Attending Unavailab le TIRADO-EMERY, ADRIANA D Referring Unavailab ADRIANA Berry Referring Unavailab IRMA Chinchilla Attending Unavailable ADRIANA CRUZ Referring Unavailab SHREYA Gilman Attending Unavailable Allergies Allergy Classification Reported Allergen(s) Allergy Type Date of Onset Reaction(s) Facility (4 sources) HYDROcodone; Translations: [hydrocodone] Drug Allergy 2 [facility] (5 sources) oxyCODONE; Translations: [oxyCODONE] Drug Allergy 2 [facility] (2 sources) Acetaminophen / oxyCODONE; Translations: [acetaminophen-ox ycodone] Drug Allergy Nausea (finding) [facility] Comment on above: All pain meds EXCEPT Morphine. Patient is able to take Morphone. (1 source) Acetaminophen / HYDROcodone; Translations: [[place]] Drug Allergy [facility] (1 source) Acetaminophen / oxyCODONE; Translations: [Percocet] Drug Allergy [facility] (1 source) Darvocet-N 100; Translations: [Darvocet-N 100] Propensity to adverse reactions (disorder) [facility] Medications Current Medications Medication Drug [...] 1 EA, Refill(s) 0, Prior to colonoscopy., [facility] #24, 150, cm, 01/10/22 10:48:00 EDT, Height/Length Dosing, 48.3, kg, 01/10/22 10:48:00 EDT, Weight Dosing Start Date: 01/10/22 Status: Ordered triamcinolone acetonide 40 mg/ml injectable suspension (5 sources) Corticosteroid Start: 12-18-2022 Kenalog-40 Dec, 120 mg Start: 12-27-2021 Kenalog-40 23 Dec, 2021 40 mg Problems Active Problems Problem Classification [...] [Coronary atherosclerosis of unspecified type of vessel, [place] or graft] Onset: 3 02-02-2023 Chronic Deficiency [...] Test Name Value Interpretation Reference Range Facility BI MAMMOGRAM SCREENING TOMOS YNTHESIS BILATERALon 04-16-2023 BI MAMMOGRAM SCREENING TOMOSYNTHESIS BILATERAL This is a summary report. The complete report is available in the patient's medical record. If you cannot access the medical record, please contact the sending organization for a detailed fax or copy. EXAMINATION: BI MAMMOGRAM SCREENING TOMOSYNTHESIS BILATERAL CLINICAL HISTORY: screening COMPARISON: Prior from 2021 RESULT: 3-D tomosynthesis imaging of the bilateral breasts was performed. Density: Scattered fibroglandular density [2] There are no suspicious masses or asymmetries, areas of architectural distortion or suspicious areas of microcalcifications. Vascular calcifications. IMPRESSION: BIRADS 2 - Benign Recommended follow-up: Routine Screening Mamm Board Certified Radiologists. Accredited by the ACR and FDA. MAMMOGRAPHY IS VERY IMPORTANT TO YOUR HEALTH. THE CITIZEN OF [place] [employer] GUIDELINES RECOMMEND THAT WOMEN 40 YEARS OF AGE AND OLDER SHOULD HAVE A MAMMOGRAM EVERY YEAR. A REMINDER LETTER WILL BE SENT AT THE APPROPRIATE TIME. THIS FACILITY UTILIZES A REMINDER SYSTEM TO ENSURE ALL PATIENTS RECEIVE REMINDER NOTIFICATIONS AT THE APPROPRIATE TIME BASED ON THE RECOMMENDATIONS OF THIS EXAM. THIS INCLUDES REMINDERS FOR ROUTINE SCREENING MAMMOGRAMS, DIAGNOSTIC MAMMOGRAMS IN WHICH THE PATIENT IS ASKED TO RETURN FOR ADDITIONAL VIEWS, OR OTHER BREAST IMAGING INTERVENTIONS WHEN APPROPRIATE. THE PATIENT WILL BE PLACED IN THE APPROPRIATE REMINDER SYSTEM INCLUDING A REMINDER AT THE APPROPRIATE TIME FOR ANY PENDING ADDITIONAL VIEWS. 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 Person calling: caregiver: Alanis Return call to: self Medical Records/Insurance Card scanned into [employer] retargeting: Yes Comments: This was Routed Incorrectly Allergies [...] Status:Closed by ALANIS CASTILLO on 02/20/23 Normal [facility] Urinalysis - DIPSTICKon 11-0 Appearance (U) cloudy [employer] Other Bilirubin Ql (U) Negative [employer] Other Color (U) yellow [employer] Other Glucose Ql (U) Negative [employer] Other Hemoglobin Ql (U) small [employer] Other Ketones Ql (U) Negative [employer] Other Leukocyte esterase Test strip Ql (U) large [employer] Other Nitrite Ql (U) Positive [employer] Other pH (U) 5.0 [pH] [employer] Other Protein Ql (U) trace [employer] Other Specific gravity (U) [Rel density] 1.025 [employer] Other Urobilinogen (U) [Mass/Vol] 0.2 mg/dL [facility] Crush on original products Other Urinalysis - DIPSTICK [facility] Crush on original products Other Urine Cultureon 02-11-2023 Bacteria identified Cx Nom (U) ORGANISM: Escherichia coli (O:ESCCOL) [place] Count >100,000 Aerobic DYLAN Charge (NMIC56) SUSCEPTIBILITY [...] RESISTANT TO ALL B-LACTAM DRUGS. PERFORMED BY: [place] [address] PATHOLOGIST RESIDENT CARE AIDE RENAN CAIN M.D. [facility] Comment on above: Performed By: #### C UU #### [address] Basic Metabolic Panelon 10-3 0-2022 Anion gap [Moles/Vol] 11.0 mmol/L Normal 6.0-15.[address] [facility] Comment on above: Performed By: #### L IPID, BMP, CBC #### [facility] [address] Calcium [Mass/Vol] 10.1 mg/dL Normal 8.6-10.3 [facility] Comment on above: Performed By: #### L IPID, BMP, CBC #### [facility] [address] [place] [address] [place] Chloride [Moles/Vol] 107 mmol/L Normal 98-107 [facility] Comment on above: Performed By: #### L IPID BMP, CBC #### [facility] [address] CO2 [Moles/Vol] 26.4 mmol/L Normal 21.0-31.0 [facility] Comment on above: Performed By: #### L IPID, BMP, CBC #### [facility] [address] [place] [address] [place] Creatinine [Mass/Vol] 1.34 mg/dL High 0.60-1.20 [facility] Comment on above: Performed By: #### L IPID, BMP, CBC #### [facility] [address] [place] [address] [place] GFR/1.73 sq M.predicted MDRD (S/P/Bld) [Vol rate/Area] 40.085 mL/min/{1.73_m2} Normal [facility] Comment on above: Performed By: #### L IPID, BMP, CBC #### [facility] [address] [place] [address] [place] Glucose [Mass/Vol] 91 mg/dL Normal 70-100 [facility] Comment on above: Result Comment: [place] Glucose Reference Range is dependent on time and content of last meal. Glucose of more than 200 mg/dL in a nonstressed, ambulatory subject supports the diagnosis of Diabetes Mellitus. ADA recommended reference range Performed By: #### L IPID, BMP, CBC #### [facility] [address] [place] [id number] [place] Potassium [Moles/Vol] 4.4 mmol/L Normal 3.5-5.1 [facility] Comment on above: Performed By: #### L IPID, BMP, CBC #### [facility] [address] [place] [address] [place] Sodium [Moles/Vol] 140 mmol/L Normal 136-145 [facility] Comment on above: Performed By: #### L IPID, BMP, CBC #### [facility] [address] [place] [address] [place] Urea nitrogen [Mass/Vol] 23 mg/dL Normal 7-25 [facility] Comment on above: Performed By: #### L IPID, BMP, CBC #### [facility] [address] [place] [address] [place] Basophils Auto (Bld) [#/Vol] Ordered By: Nick Wasserman on 02-02-2023 Basophils (Bld) [#/Vol] 0.0 10*3/uL 0.0-0.2 [facility] Basophils/100 WBC Auto (Bld) Ordered By: Nick Wasserman on 02-02-2023 Basophils/100 WBC (Bld) 0.4 % . [facility] Calcium [Mass/volume] in Ser um or PlasmaOrdered By: Nick Wasserman on 02-02-2023 Calcium [Mass/Vol] 10.1 mg/dL 8.6-10.3 [facility] Carbon dioxide, total [Moles /volume] in Serum or PlasmaOrdered By: Nick Wasserman on 02-02-2023 CO2 [Moles/Vol] 26.4 mmol/L 21.0-31.0 [facility] Chloride [Moles/volume] in S kobi or PlasmaOrdered By: Nick Wasserman on 02-02-2023 Chloride [Moles/Vol] 107 mmol/L 98-107 [facility] Cholesterol [Mass/volume] in Serum or PlasmaOrdered By: Nick Wasserman on 02-02-2023 Cholesterol [Mass/Vol] 170 mg/dL 140-200 [facility] Comment on above: Chol less than 200 m g/dl low riskChol 201-239 mg/dl borderline riskChol 240 mg/dl and greater high risk Cholesterol in LDL Calc [Mas s/Vol]Ordered By: Nick Wasserman on 02-02-2023 Cholesterol in LDL [Mass/Vol] 89 mg/dL 0-100 [facility] Comment on above: LDL ATP III CLASSIFI CATIONLDL less than 100 mg/dL OptimalLDL 100-129 mg/dL Near or above optimalLDL 130-159 mg/dL Borderline highLDL 160-189 mg/dL HighLDL greater than 189 mg/dL Very high Cholesterol in VLDL Calc [Ma ss/Vol]Ordered By: Nick Wasserman on 02-02-2023 Cholesterol in VLDL [Mass/Vol] 25 mg/dL [facility] Complete Blood Count Auto Di ffon 02-02-2023 Basophils (Bld) [#/Vol] 0.0 10*3/uL Normal 0.0-0.2 [facility] Comment on above: Result Comment: PERF ORMED BY: [place] [address] PATHOLOGIST RESIDENT CARE AIDE RENAN CAIN M.D. Performed By: #### L IPID, BMP, CBC #### [facility] [address] [place] [address] Basophils/100 WBC (Bld) 0.4 % Normal . [facility] Comment on above: Performed By: #### L IPID, BMP, CBC #### [facility] [address] [place] [address] [place] Eosinophils (Bld) [#/Vol] 0.3 10*3/uL Normal 0.0-0.45 [facility] Comment on above: Performed By: #### L IPID, BMP, CBC #### [facility] [address] [place] [address] [place] Eosinophils/100 WBC (Bld) 3.4 % Normal . [facility] Comment on above: Performed By: #### L IPID, BMP, CBC #### [facility] [address] [place] [address] [place] Erythrocyte distribution width (RBC) [Ratio] 13.0 % Normal 11.9-15.3 [facility] Comment on above: Performed By: #### L IPID, BMP, CBC #### [address] Hematocrit (Bld) [Volume fraction] 37.3 % Normal 34.0-46.4 [facility] Comment on above: Performed By: #### L IPID, BMP, CBC #### [address] Hemoglobin (Bld) [Mass/Vol] 12.5 g/dL Normal 11.8-15.4 [facility] Comment on above: Performed By: #### L IPID, BMP, CBC #### [address] Lymphocytes (Bld) [#/Vol] 1.4 10*3/uL Normal 1.00-4.8 [facility] Comment on above: Performed By: #### L IPID, BMP, CBC #### [address] Lymphocytes/100 WBC (Bld) 16.6 % Normal . [facility] Comment on above: Performed By: #### L IPID, BMP, CBC #### [address] MCH (RBC) [Entitic mass] 30.9 pg Normal 24.7-34.3 [facility] Comment on above: Performed By: #### L IPID, BMP, CBC #### [address] MCV (RBC) [Entitic vol] 91.8 fL Normal 80-100 [facility] Comment on above: Performed By: #### L IPID, BMP, CBC #### [address] Mean Corpuscular HGB Conc 33.6 g/dL Normal 32.0-35.0 [facility] Comment on above: Performed By: #### L IPID, BMP, CBC #### [address] [place] [address] [place] Monocytes (Bld) [#/Vol] 0.8 10*3/uL Normal 0.0-0.8 [facility] Comment on above: Performed By: #### L IPID, BMP, CBC #### [facility] [address] [place] [address] [place] Monocytes/100 WBC (Bld) 9.0 % Normal . [facility] Comment on above: Performed By: #### L IPID, BMP, CBC #### [facility] [address] [place] [address] [place] Neutrophils (Bld) [#/Vol] 6.1 10*3/uL Normal 1.8-7.7 [facility] Comment on above: Performed By: #### L IPID, BMP, CBC #### [address] Neutrophils/100 WBC (Bld) 70.6 % Normal . [facility] Comment on above: Performed By: #### L IPID, BMP, CBC #### [facility] [address] [place] [address] [place] NRBC% 0.0 /100{WBC} Normal 0-0.5 [facility] Comment on above: Performed By: #### L IPID, BMP, CBC #### [address] Platelet mean volume (Bld) [Entitic vol] 8.2 fL Normal 6.3-10.7 [facility] Comment on above: Performed By: #### L IPID, BMP, CBC #### [facility] [address] [place] [address] [place] Platelets (Bld) [#/Vol] 296 10*3/uL Normal 150-450 [facility] Comment on above: Performed By: #### L IPID, BMP, CBC #### [facility] [address] [place] [address] [place] RBC (Bld) [#/Vol] 4.07 10*6/uL Normal 3.60-5.00 [facility] Comment on above: Performed By: #### L IPID, BMP, CBC #### [facility] [address] [place] [address] [place] WBC (Bld) [#/Vol] 8.6 10*3/uL Normal 3.8-11.6 [facility] Comment on above: Performed By: #### L IPID, BMP, CBC #### [facility] [address] [place] [id number] [place] Creatinine [Mass/volume] in Serum or PlasmaOrdered By: Nick Wasserman on 02-02-2023 Creatinine [Mass/Vol] 1.34 mg/dL 0.60-1.20 [facility] Eosinophils Auto (Bld) [#/Vo l]Ordered By: Nick Wasserman on 02-02-2023 Eosinophils (Bld) [#/Vol] 0.3 10*3/uL 0.0-0.45 [facility] Eosinophils/100 WBC Auto (Bl d)Ordered By: Nick Wasserman on 02-02-2023 Eosinophils/100 WBC (Bld) 3.4 % . [facility] Erythrocyte distribution wid th Auto (RBC) [Ratio]Ordered By: Nick Wasserman on 02-02-2023 Erythrocyte distribution width (RBC) [Ratio] 13.0 % 11.9-15.3 [facility] Glucose [Mass/volume] in Ser um or PlasmaOrdered By: Nick Wasserman on 02-02-2023 Glucose [Mass/Vol] 91 mg/dL 70-100 [facility] Comment on above: ADA recommended refe rence rangeRandom Glucose Reference Range is dependent on time and content of last meal. Glucose of more than 200 mg/dL in a nonstressed, ambulatory subject supports the diagnosis of Diabetes Mellitus. Hematocrit Auto (Bld) [Volum e fraction]Ordered By: Nick Wasserman on 02-02-2023 Hematocrit (Bld) [Volume fraction] 37.3 % 34.0-46.4 [facility] Hemoglobin [Mass/volume] in BloodOrdered By: Nick Wasserman on 02-02-2023 Hemoglobin (Bld) [Mass/Vol] 12.5 g/dL 11.8-15.4 [facility] Leukocytes [#/volume] correc sergey for nucleated erythrocytes in Blood by Automated counOrdered By: Nick Wasserman on 02-02-2023 WBC corrected for nucl RBC Auto (Bld) [#/Vol] 8.6 10*3/uL 3.8-11.6 [facility] Lipid Panelon 02-02-2023 Cholesterol [Mass/Vol] 170 mg/dL Normal 140-200 [facility] Comment on above: Result Comment: Chol less than 200 mg/dl low risk Chol 201-239 mg/dl borderline risk Chol 240 mg/dl and greater high risk Performed By: #### L IPID, BMP, CBC #### [facility] [address] Cholesterol in HDL [Mass/Vol] 56 mg/dL Normal 23-92 [facility] Comment on above: Result Comment: HDL CHOL ATP-III CLASSIFICATION Cardiovascular Risk HDL > or equal to 60 mg/dL LOW HDL < 40 mg/dL HIGH Performed By: #### L IPID, BMP, CBC #### [facility] [address] Cholesterol.total/Cho lesterol in HDL [Mass ratio] 3.0 {ratio} Normal <5.0 [facility] Comment on above: Result Comment: PERF ORMED BY: [place] [address] PATHOLOGIST RESIDENT CARE AIDE RENAN CAIN M.D. Performed By: #### L IPID, BMP, CBC #### [facility] [address] [place] [address] [place] LDL Cholesterol,Calculate d 89 mg/dL Normal 0-100 [facility] Comment on above: Result Comment: LDL ATP III CLASSIFICATION LDL less than 100 mg/dL Optimal LDL 100-129 mg/dL Near or above optimal LDL 130-159 mg/dL Borderline high LDL 160-189 mg/dL High LDL greater than 189 mg/dL Very high Performed By: #### L IPID, BMP, CBC #### [facility] [address] [place] [id number] [place] Triglyceride w/Reflex 127 mg/dL Normal 0-149 [facility] Comment on above: Result Comment: TRIG ATP III CLASSIFICATION TRIG less than 150 mg/dL Normal TRIG 150-199 mg/dL Borderline high TRIG 200-500 mg/dL High TRIG greater than 500 mg/dL Very high Standard traceable to the Center for Disease Conrtrol and Prevention (CDC) test method. Performed By: #### L IPID, BMP, CBC #### [facility] [address] VLDL CHOLESTEROL 25 mg/dL Normal [facility] Comment on above: Performed By: #### L IPID, BMP, CBC #### [facility] [address] Lymphocytes Auto (Bld) [#/Vo l]Ordered By: Nick Wasserman on 02-02-2023 Lymphocytes (Bld) [#/Vol] 1.4 10*3/uL 1.00-4.8 [facility] Lymphocytes/100 WBC Auto (Bl d)Ordered By: Nick Wasserman on 02-02-2023 Lymphocytes/100 WBC (Bld) 16.6 % . [facility] MCH Auto (RBC) [Entitic mass ]Ordered By: Nick Wasserman on 02-02-2023 MCH (RBC) [Entitic mass] 30.9 pg 24.7-34.3 [facility] MCHC Auto (RBC) [Mass/Vol]Or dered By: Nick Wasserman on 02-02-2023 MCHC (RBC) [Mass/Vol] 33.6 g/dL 32.0-35.0 [facility] MCV Auto (RBC) [Entitic vol] Ordered By: Nick Wasserman on 02-02-2023 MCV (RBC) [Entitic vol] 91.8 fL 80-100 [facility] Monocytes Auto (Bld) [#/Vol] Ordered By: Nick Wasserman on 02-02-2023 Monocytes (Bld) [#/Vol] 0.8 10*3/uL 0.0-0.8 [facility] Monocytes/100 WBC Auto (Bld) Ordered By: Nick Wasserman on 02-02-2023 Monocytes/100 WBC (Bld) 9.0 % . [facility] Neutrophils Auto (Bld) [#/Vo l]Ordered By: Nick Wasserman on 02-02-2023 Neutrophils (Bld) [#/Vol] 6.1 10*3/uL 1.8-7.7 [facility] Neutrophils/100 WBC Auto (Bl d)Ordered By: Nick Wasserman on 02-02-2023 Neutrophils/100 WBC (Bld) 70.6 % . [facility] No Panel InformationOrdered By: Nick Wasserman on 02-02-2023 Estimated GFR (CKD-EPI) 40.085 mL/Min [facility] Creatinine Clearance (Chem N/A [facility] Nucleated erythrocytes [Pres ence] in Blood by Automated countOrdered By: Nick Wasserman on 02-02-2023 Nucleated RBC Auto Ql (Bld) 0.0 /100{WBC} 0-0.5 [facility] Platelet mean volume Auto (B ld) [Entitic vol]Ordered By: Nick Wasserman on 02-02-2023 Platelet mean volume (Bld) [Entitic vol] 8.2 fL 6.3-10.7 [facility] Platelets Auto (Bld) [#/Vol] Ordered By: Nick Wasserman on 02-02-2023 Platelets (Bld) [#/Vol] 296 10*3/uL 150-450 [facility] Potassium [Moles/volume] in Serum or PlasmaOrdered By: Nick Wasserman on 02-02-2023 Potassium [Moles/Vol] 4.4 mmol/L 3.5-5.1 [facility] RBC Auto (Bld) [#/Vol]Ordere d By: Nick Wasserman on 02-02-2023 RBC (Bld) [#/Vol] 4.07 10*6/uL 3.60-5.[address] [facility] Serum or plasma anion gap de terminationOrdered By: Nick Wasserman on 02-02-2023 Anion gap [Moles/Vol] 11.0 mmol/L 6.0-15.[address] [facility] Serum or plasma high density lipoprotein (HDL) cholesterol measurementOrdered By: Nick Wasserman on 02-02-2023 Cholesterol in HDL [Mass/Vol] 56 mg/dL 23-92 [facility] Comment on above: HDL CHOL ATP-III CLA SSIFICATION Cardiovascular RiskHDL > or equal to 60 mg/dL LOWHDL < 40 mg/dL HIGH Serum or plasma total choles terol/high density lipoprotein (HDL) cholesterol mass ratOrdered By: Nick Wasserman on 02-02-2023 Cholesterol.total/Cho lesterol in HDL [Mass ratio] 3.0 {ratio} <5.0 [facility] Sodium [Moles/volume] in Ser um or PlasmaOrdered By: Nick Wasserman on 02-02-2023 Sodium [Moles/Vol] 140 mmol/L 136-145 [facility] Triglyceride [Mass/volume] i n Serum or PlasmaOrdered By: Nick Wasserman on 02-02-2023 Triglyceride [Mass/Vol] 127 mg/dL 0-149 [facility] Comment on above: TRIG ATP III CLASSIF ICATIONTRIG less than 150 mg/dL NormalTRIG 150-199 mg/dL Borderline highTRIG 200-500 mg/dL High TRIG greater than 500 mg/dL Very highStandard traceable to the Center for Disease Conrtrol and Prevention (CDC) test method. Urea nitrogen [Mass/volume] in Serum or PlasmaOrdered By: Nick Wasserman on 02-02-2023 Urea nitrogen [Mass/Vol] 23 mg/dL 7-25 [facility] WBC Auto (Bld) [#/Vol]Ordere d By: Nick Wasserman on 02-02-2023 WBC (Bld) [#/Vol] 8.6 10*3/uL 3.8-11.6 [facility] Coding Summary.on 03-11-2022 Coding Summary. CD:[id number] Gh0bWw +PGhlYWQ+AC0UGUIwW71qmHBqg C4LR8cHSK7MZRVZJMQCXO8GWH4 zyNS3KSwbQ4BsyoXl ClvdhPIyYC29ZXm2KYC8eEaxWK kojZ4aoSImA9z4JfEvAT88iG81 SDfzBMXyBuH5OeAnlclvzQFt H7cmKeVhsTOfCbp+PHRhYmxlIH ahWOOaWZbzCGIqOlUpuVnrKY1a Tl8sQLErMITutUnqxKCwXqUs t7goJSSqPUsgUG9lcHwyD0WhiF A8YLKzl1z4Na31mDA+PHRkIHN0 vDcrPDgah591NcHuv4jnPTD1 zJCiTZvlSTE6K50ve3W4DSRsIX VrIGX9gCI3yJ0kmWywwxsyS0Lk xIMxJcW2KLU4cHAclV9mvLrz ranfeN3fWuw+H87WJM6CLFRMOQ 7SQlw0T4AuSmnjgKE+OZ74CWFn FR87tKOwbBTlk0rsaJp8YaSw NCTzCZX5aZkrBPjih7BxVTMaE7 2cpKMlg5O0RBJpqGrikGAzCpPq cMP5yL0uIGsqieemn0mcjcws Ivhie8malh21hK71W34dSEntNL WfCQN9BVFyASSkrVtfqe8bkG4d Ii8+XLape0qfs9lhqDt6IeIz YQVkagCaeCojCOX8d4IiPe39N9 GkdIauz0GxZak4hh81yLYxd6A2 wIS6XHhgNFNfcM5nFWeeEjP5 YFOzCfTgzY12nEMrWVcrCb9uuH ywbPrwNA9iNQExmbuoEQKkmP7r RUQtqGNrfBfvLN6yVZZkigaz q400RtOtHKI6VPTplDZtN3RosH 5fQhIgSZTyXLLrS6PdxMGeLIow Q603XVejXfQ0XIDoftUqI4Za DGSnxXnfFiV8v2I7Bu7Gy7Zrbm fqTAP4KHuxWHOaBbU5EqNwCtF5 O5WiMwe6PEGqmRqwIC3dS4Nf UMYplcsmrswwqAR1PDXtVYEguI 63gMSaLPllAf8fb3Z1q443WYZz PQUsoN45Yv4cdNpvPTIslSNU nX8vichau6pdelhoWcAlCSYtMJ s7DIc4WCMbxBhdMgIoOMM4DuA8 BSP6pEYuvL3toPclblgejW0b Oyc+D36qfE1oQIS4NZH4mxcpCQ IqvnWvHP09JQ95G4DpZnnsrJAe bGU+QONnheDidGpcJW8gEbSw n6gzy8UxLYhtD4NfSJJeVXrmNl u7SVNjEIU6uIQ5xV0iULMxERok x8G4hQR9Y6HmbeOfmz9ng0mg LISaQUvdW57oyYUnw4X7EIMidS N9IJBieAdhAdHicO82Swr+PGNv wNrko1AvGzxys0jwb8hloDc8 NzVtWYZmerVuhIewOEW3b1MhBt 85V28sUBoaAUVzGUZsOUWyDMUo yBzpcz2upX3kSc3+PGNvbCB3 wVF6uF6jGTFdEbU6XVpaT981Jn YrtEDpLmopj2uwp2xozKj7DyYg FPBehiJnqWemEVL6v6ImVy76 V97dFKqnEFEoWJEjYXIdOEQukQ lyxd4nqA7rId6+MI8ux9igew05 oU93nAI+OBQkDXF9rMrjUGma WSZdbX8mWLghTlB4UMQwLzVpaI 80cHSgBTpaOe8etZzjsKfpKF1y XONwlnrlo104GsGkt2vpWWKp cXQcWHfmXIB7L26sy9X9QNRcXC NlWZU4hGF0kL7ijPqanppqfMJj nDfkdtZotCoaSTabZTldO689 IHRvcDsnPlBhdGllbnQgTmFtZT n0B4ZaEax2WCOakXrwHN1ayTBi QQpvVz8qdXejjPdzJQ7mCBNf jfuar344TgBtn9enCQShsVRiYQ boKYN1F14ds0R1DTEjLHZjEKS4 wWJ8oZ1gdAnotarmyTKgvDcl dfVjzVeqGVwpRYreK816CHMrjO khRuUupeWxMFVqgOQ8BC46ZJ36 wLTnq2N1hGI7K7UmDYZasqbt lkhjeYI2BUDhFNElmY39Ya3qmZ odGa0uUFXwABR4MHJeaCXuZ6Rk kB4gAvSpUITmVPYdQ2VsoAWg QRmdA036PMkaNlV6KBInixLqW6 FiWJRjiVivHmE4t3V4Xe0BB9E6 TR63DW08iNZxo6X7iSI2Y2Mx CJHbmiqvhygikZR0JUIiWXIltD 51Ko2rnNznSw7rDTXqVYF4HKJa iPEbV6HglC0wSqApXQNfQYPg L1PulPZjBDepV147AQnkBrR4YB FdvwGzJ1SgFPIjbVdvUmN8v6A1 Da1EPFp7WR66RT24oKWee4B6 nQW1G4UrPDIwfjbanmnaqHU1SX IbBEXspY11Bf3ndCumMr7lDUKy VEF9ABOhmYYvY5GmjH2kPbBc CCOiGIGtA1IzsPXjJKvjN238YF buVmL6RZIxqzNiG4CdVSRbfVxq VlY3i7N5Qd9TMEQjNU34CTP7 gLG0QO28KC85J1LnDcdvtRMdoL U+PHRhYmxlIHdpZHRoPScxMDAl IaTenWqaEV1iKe9gSQXgXXKa wBcvcDAsMuDjm1adDYGqZZtaKY 8ecVksB9DatTL0HFVee7w9Dz77 N27eW1YnbSD+MYPxyVL0uJU9 kY8iUzXqRaT2WYvdO978EqMmpR SqRistx8ibv1oxyAw4XjI8AYVm klCgaXufRIV0u1BgHw31T79u IHdpZHRoPSIxNSUiIHZhbGlnbj 8kbH5bSk2+CGAotMC8dKF7jF0a LeNjCmZ3WGdrU387OnPfoXAm Hmvgi9kwc9uzoZc0PwZoKVKurd AorWvgBDO5s3AcXm15K3UybVuj h5UoFzy0qo27nOFkm8B4hXW0 T3DnEOOjoczxiTSxwCghUZ8fIA PhodvtTQGteD0mGYCsV8i4WbMp HaD4EWsxS2VjmeH9FKGecHXd TVcvXIN4S47af7S2OUCbSILdIQ J8oMH0eN6xqAuhcvihpIYbnDgm lwXqqCujRMtpZHcjB012GKCz vMlcLKGnnR3jLHNqpXBrpLjyXV 0fUTAyekocHlQME1YLX7LrUPMZ INBXR4jLLL03AB63lLCwx9E4 rWX1A0GkRHOcwnywbzkhoEC7LC VoRFFxwA34pVLqCHccMx5df8L5 l395ERBmWQFpsZ90Qc9vcGfa LXCkmUGYsJ6zborfy8fhsulcIu VoQAMqRDs7AWl2BMXueHghRoGc SIH8PgA7UZS9tLBkoI9pbWzd kxjkaH0fYmw+TYNxEQZkFEn5Od wvdGQ+BJSiROA3eHtvBZuhTEDr hL3vEDHnU9u9HeMrAtJ3EQax K9ViPELtjmesPm19wM4tRdVcHf K4KElrQ6EqqmX9IWKyuMHyOLup GPA9J18xs5V9VAItKBMgKLF1 rQM2dN1suYzolkimgDXzmXbwsc ZepOcwDRixJAkgA421JTOltYyy Ail5HPmxIQQjHP67OC27cPUo l7U9lIX8J0IzLSZlekxzhuekiJ M0CXFwTHEmxP44wNBpVSthLr9q f3H3f181SGPaQCFisQ44To5z tYtfCBFulKGWdZ9rkjfbo4lvcg diOoRvTVRyVNd1NIk9HEWmjTse WfOrEJZ5JuI8UHO3eAUzxT6u zKgnewvexX6xJsw+RmVtYWxlPC 99PN98sNMfj0F4nUC6O6ZaFPIq vbeumeigrRO6NEOxTASdoV69 uKQjMSwyAt2bg6B0c430IUOiHD YumX86Qj2axOwhLLYdkDPMqB8v hhzzz1qgampjFrRaXGBmZUw1 PGz9CNFreBlsRrTmBHK5SlU6IL Y3gGGeoS0hqLtosdsryU9uGnx+ R3FiKPD6DMFdm163S9DbVpio dHI+FL82IJMjAP08cKFqqNJju3 ggrVq4HoTdWMNiPBZ9yFktKWya o4NsBNHgS67czHGut2R1RTGl sZsaaRKtEzAsvJS6xA2hZFfrzp rgn4cpkptgQtxhx6tnjy87hM77 H40kBFymHAMgSAPrJTLgTIAo jTamth1cwR4vPt4+EIHshAB0sE Q1aG7fSwOsNcE0QEsfK006LwQj pYZtIxpxt4sov7wyyUv8BfWq SXFxzhMeeUhmYXJ2o5RkGp60L6 9sIHdpZHRoPSIyMCUiIHZhbGln oe4ziF2zEy2+UC9if9hlhi86 tF58xEC+XZGoQGF6vXscBRdnJK IjqO2iMIhdVeP6YYAmZsInmR78 aEFdBWpcRa9bmLqcfNpcZW2m GWMfjgcjc324KqRem7zhZYSwnL TyYBvmAFP9T77cc6E8XQXxBBUm LMP6gKO9vQ9edFiceywrvILp xNmkzqWwnMnpGJrtAKaiY960NA RfzFsqQsVooVHnA0upghUPGV7b OjwvdGQ+WVJpRFP2aMxsGCpw LGZvxO0uDKZrW6o2ExAxGoB0YB djG1RkmoW0VDWauGKbOWAmqRLR yX5aswfsn0pidlagMbMxQVTa YYh6FJc6YIUtaMncLnJbLOI7Lz I9CNK5cMAcmQ9hgExxennrdC7k Oyc+RklOOjwvdGQ+PHRkIHN0 fJhqIGcsGJGflY2dZMEjY3n9Yt RvWfG3ELxqQ9TsttL9YVHlbJXe PBVihPNPmR3hhkdue4jmnlwa WqVrRGTxJPw6MXn9LPNrkFheYk VnWBE2JxE2CVE3lRVflQ4ahCel zpbbbB6yLfy+TVJOOjwvdGQ+ GGQzONF4lAojOUpcYMXchT2xKH HzW3x1AaRtKyW2JVnnE4AbeqF7 BXTdgPXoQETbnLQPqQ6blqsm y5rewqkxKkPoTAUaHUp4MOi1ZA XfhCluIjWlSLM2VcA4CIC1pJAs gT8wiKvrkzcnuA1fQrh+UGF5 SUO0EK34KX29K2LzKqjcyRLdlA U+PHRhYmxlIHdpZHRoPScxMDAl GkIalSjjLH6iJq0vIAMnIBZw bGxh (more content not included)... Normal [facility] Office Visit (Cardiology)on 03-06-2022 Follow-up visit [...] negative for complaint. Vitals Vital Signs Recorded: [id number] 03:48PMRecorded: 70Mwe0254 03:25PM Hpemllwy977, LUE, Gjuklie504, LUE, Sitting Mbdjomzcf84, LUE, Jwgwlxp00, LUE, Sitting Heart Rate66, L Radial Height4 ft 9 in Zwshyu931 lb BMI Yylgpayqes50.37 kg/m2 BSA Calculated1.38 Tobacco Useb) No Falls [...] Mar 06 2022 4:39PM EST (Author) Normal [facility] Tobacco Screening.on 022 Fall risk assessment a) No falls within the last year [facility] y 250 DO Work Phone: Tobacco use status CP b) No [facility] y 250 DO Work Phone: [employer] Documentson 1 05-04-2021 [employer] [id number]:127 Normal [facility] General Surgery Office/Clini c Noteon 03-03-2022 General [...] after patient or guardian consented to allow [employer] to record this visit. ANA M front office specialist and provider reviewed before signing. ANA [...] list Allergies Percocet (Nausea) Darvocet-N 100 (vomiting) [place] (Vomiting) oxyCODONE (Vo (more content not included)... Normal [facility] Comment on above: Result Comment: Elec tronically Signed By: Jay Power MD\.br\Date and Time Signed: 03/03/22 12:50 EST\.br\Electronically Co-Signed [...] Locations R1: This test was performed at: [facility], [address] [place] [address], [address] , [place], [facility] Comment on above: Performed By: #### 2 [id number], [id number] #### [facility] [address] [place] [address] Coding Summary.on 02-25-2022 Coding Summary. CD:[id number] Gh0bWw +PGhlYWQ+CN9WAUWtQ17awXJkm W8LR2eZQD4CWSPHCJYHWR6GER3 xdTS8SYrkH4FfaqVw LyxfaLSeFT76OIo9XER1zSjnOY ulaO4ruUUnY5n6JgIiJD25oJ04 INjrLNWhZpN1ElXgwpxdqPKx N4gwArYvkZOoFoa+PHRhYmxlIH akQIGbBSslFKHkGvVqqVtuNL3q Dc1cCVOvITGjlUocuYUmHaZa i9teEOWnQHxrAY3neRluE7AerI S5SZYlk7y3Lt88zIU+PHRkIHN0 vHxlELsml034IhYnf5tqJXG9 hLGgJJtaFVY2S15fp4Q7OZGaLO AxYVB9kZU0eS8tpDgefyzdN8Di dYTpUvA8UKA7uJCctE3djMiz ubjrrY8zPuj+E69GQX0YVMTWKO 4XJex6B8FbLdguwQM+UR11IOKw GS66mGFdnLPcq2gvyHi2IsYk UNWoKTC2oGuoQSztu9LoWHNeS3 1gcGNth1Z6PMVklGjkiAOpCiHo qTS8wU4cTHsfzfqkx3qdgist Zcaas9xrol30gA38O01jKGsmXR GiBMK8RNCdOYEahGglpi5qvF0d Ii8+WYmsj3xyy8xikIn0NxYq XOHjbaDcyWduSFF2t7GeAc70F4 SxmPasx5DmAub2yv58jAGzr1D4 uYL7FEluUZUkqX8eKIiyScT4 ZRIuPqPsiA11lYRyGVhsTg0pwL dgsPkzZB6pXSExkcrkRNEysH3u RQMrpKQiyQydQB2nMJOyxsrb x243EzXdMHY5MKLsjXFfL7UgjB 2mUtGoUUYcJXTaL4GwmWHdPTve I658XWfzBnQ1XZThgpOrV3Lo LJAmpTpaTeR2s6L3Cv8Sd4Slrx edSPH2DLzxWOZxLrMfPzPrVrK4 C6OnMop3EXFkyHvmVT5qT2Hc ZPDsnebtmqyezSR8ARIuMPWdcV 57qHGfUKjdTz7bz3J2h873SSHm AWLfsG40Nl8voCioYPRfsSBR jJ5eotdbp9pvvxtbOjGkRLZfMT h3VEw2TXCdaWljBsPcGHL0MmN4 CGQ0tPVxoF9caPzfvwrrcO7z Oyc+K21doZ0bDID8DOH1tejnBN SkakVgOV04BW31O8WyEepcjMVx bGU+LDNivkQqfFkxYG1lQfYh c6fnj2GkQTdbQ1FlCXIlDMjzKa y3YQYyFKY0jEK7cJ2vDUIyFSxe z0C3uFK7D5IztcXkvo4ml7fu KSPoFCksL73vwAGxs9U1MVGkmX S1PXCayQlrGrPqnS67Add+PGNv sSlvf7IdCdnxu6itw8hkzNd7 XfIcMWDwfhGxaSbjNRZ1p2RuPo 12G98rMHveYIBsDSUgJPZiAFOk cIjkhx4qzP2hHi0+PGNvbCB3 tPW0tL8zLNPbPzE5TMktY270Du VuyNClJkvwe3elv3obfMg7FmTi NOLlrpUdwTduURL0s7SyPe92 Z58iJYuhLVNlMXEjFTQtOWFdqZ kwjj3mxN8jZk3+JF9kb9wzux45 pR83iVL+BRXnHLB2bTryWIed IRUjaM1sWKmvOgC1HEXiZuXwzH 29dSEpVZhxSu4xzJsvrJwhJD4b TMKsdxhdu688GqEuy3jvBMPq kDLuSMjhNCM1P45gt4Y0TUSvIY NsJOK3lXV2oM9osYnlpdgryTIo rXcrsgGliVwgXValJNllW095 IHRvcDsnPlBhdGllbnQgTmFtZT m7M8IfEmj3ZTQncKecZI0kxWYa BNerBo4uxDmtqKjmIA4xCYNn oclwe897XsPxx5blBLYdmCMyQT xnWBL3C41il9W2JZEuTODeOKS6 fMV5aI6ljUxuzalzlPRyqTie xmPgyWmiIBezTPgsD298WHAofF blEdZdudZsIHOmmWQ6BF16FT55 gCMhn6C2nFC6B8GmGZTwltky ajiaoMT9XDOvPFBsoD44Wg7ksL glZg9pUCOwMUH6PZGnyBWiN8Aa iX3nKbSrBHTuCTBjQ0BzvOTa GPafC780VAssEyG1BUEqyaQbR9 BqXJGerVgfEhX2n9V9Mj8EL7K8 NC02FC07tFXye1C1wAE8I0Ws JNGckccnhewabSA7FFWvSRWehA 51Nu1fvSpaTg8oGDIkNMN8EAIp kYXuY7AvrE1cUqDtMDPrJVNv T5UbdIYsKEwyZ822BFkaSiR5ZH SpwfPjC9CeTBIviRpnDzI2q7H0 Gp3WGLi8RF94CT40jESzu6J8 zND4B7FuKEFmrrezauglaGH2WR UtESLdmF01Px4syRokLd1gMCJy PCD6CXDnkUVsO1UllU2zFcVu LDFvYBXdS5HolAKqPQbwB767TF weJiP4GKPzywDlJ2VhGZWzbSyi NmF4u0A4Or5NCMVyJZ84DXA4 iIT4BS84YT32W2GrUzxyiKGnxJ U+PHRhYmxlIHdpZHRoPScxMDAl NmWmhVsrMM9bEi5vKZTdHUTb wSguwHKeLoNpq8raLUXkYLqkPV 9asDsfK9XmsOW7VLLbo1h1Ri54 X23cJ7GsjST+SHIodZH9qZD6 hQ4cYfQiGeX8NWzoW047XuKguJ TjZlmiz3oep7tyrMe9FgK6IBBo rrHckBxuFMO3x4AtRt59T16k IHdpZHRoPSIxNSUiIHZhbGlnbj 2hoZ2kQw0+JBLyzGG7fOU7kU5i AdHuSrH0VJpnD219XtSjbZKa Ugxyj5gob3goyOz6TgTrKLMhpu JywDgeFQK7f2XtBm77E4KtkTrh z7UqQxj5bi33zNWrg3X8wOJ0 E4BrUFDzcoqsiIXiuVbmDQ0oCH EwwquqXFVrmD2jVFNxI1m2ZhTf QxA3MUvgA5GhmuT5VLAnxTEm DLqkYZX4L47tt7R9ZDSqSLJlWE U3kCU3zT9guWecylykoFWfhGaq zqXuaUsdZElnRQuvY043UWGm jAuyFZZrzC6dGVXmqFOghJuvYL 0vASTtsabkRoRPC4DFU5EzWXDE UZXTI8dTUV32ON89zKQug6K5 bSO3I6UyMGRvccbaslqogVL3QY SpJYJieW57oJJcQWfyTx5ow4Q6 b411XWQjQRVyuO81Kj5ctGef FEUqiKQLaC2gkikyd4ohaummHz WoKTYfXZd9WAo1EMVbdEckRlEa QFY6NbD5VNO8kEWvgA7ybVsu pikatU7oSay+JGZqZKLaJOc7Vc wvdGQ+CUVwZYE1zJqvPOljISGv rN5rOAItQ8f4KjBfReV4SQou V5UcLVQflqdoRa60rB6mOpBdAh H5FJrxR2QuzwY9MBBhrJUhPNqp KXA4N31an6O4OZGmLAJnKLO7 pKA6kR1bpRxtrldasBOpvSwshi IpdAxaZZwlKZinE233IGYsaVcl Han2GDdtBEUeJW93AF26eVNl k3Z0jIA6O2ZaCPFmngslpmngiW Y7ZOAhWAGaaT95wUYcCBmlAw2e g8M8i552HIRqWDWipN25Id5g pZytQKUfeHDXlF8lplaqp1sprl ovLnZlDQFmUWa7XAr4ABGhtFfs TdJtNID6EfU2TAR7wCPyqA6z cPbndsqmgU4rQmh+RmVtYWxlPC 35PZ25eIFmf8Q4hYM6A8XvWXFb wiuiuzxxoAZ5VOUwQZWttX72 qDDwPQnfMk6sv7V6v831GBFqDI EujK44Mx4apRjxVFHxyOCApF9j jbhbs8ycwghkNlLkPPLqRKm4 GMa0RUHasWfbUvHnDRJ5AzW7DK S9yPRvbA8ctGqtmyolwY4kVkk+ TH4elOhamZ9hkK0CBX2yOHSa kULPkFDjJTM0XB72RF97F1CeLm wvdGFibGU+PHRhYmxlIHdpZHRo YXgiQPIpFdHexUdwSI1hCw2o ASEaJLYfwDiwgNHnLcOcx9swKE CmNLbbQD9vzQdlY3CteQM8LSBy t7s9Ip41A96aZ8MzaFY+PGNv bXU8uWX1hU7gRqQgFrO0WJmwL2 68NtWebMFqPdyly3nzf9mjhPz3 QvCkXKXqrlXyfAobFEG0v8Ap Pv21X91hDIxyIHLmLAIpFHEjAM TglCiedb2wxP3lCv2+PGNvbCB3 fRH5hC3lJzKjBwA7YNnkQ435 WvEmpYViVnnkK29zC5EdwRR+PH UaRgq3HZDrsPxrWK7xsDRsFTac Gy6sRLN2JhOzIxLnKJbkM4Qx FPMnysngpepxfLJ6CVWrIYYnpO 06Vl2beMviRs3dDNAeDUY3WGJk qFVtV5RztM4wOoAcQVDoBSFj M3KmuLTwFMehX391FShyDfC1FP AtokDwF2LxJEYdpFheJvX5h1C7 Hk2QgRjjuJGeSO0mZcPrXJy7 A8DhIrg1UFAjwHikIB8fxEGkOL mkXz2fjEkmgLsxQW4zYGLxeclv d154SfEhj8xxQAGsoCYlVZvo BTJ5A15wl7V7FQRyQMTvFBN4wM P1pI8nsMsfcbnvjGNneQzvdeHs rFitROlxBHaoZ363KVDryGbv ZfLXByn3I2BcIks9ZAOfiEruFS 6tyPQiWGeeTh4mqXvizLmxVF4j BFImxgzlx382FhQtc3uwVJCe zHYdENtmWBA4S65no9A6ZENnPD NmVPU8aVT7qQ5cyTbxlmggkGOl rAliuzBtfQuiNYqqBCmsN976 FUUmhPyuIa3DQfn8E8ZfBoj9SO MvxUfaNM0irAAoFGjqHp5puZgv dIlrUH2kWZEdjwlsb885LeSx e6tlRGOyvBThVGamQSY6R59cy1 M6NIFyWMAgBBJ0qEO4dZ5uhXcj bjogbGVmdDsgdmVydGljYWwt XZfyA889OOXxoLemDcUfqNWsWg wvdGQ+YN86bi28N8AoPfvmQqy3 ZPIeHZB1wEA5fF8nNWJgHOwg c3R5 (more content not included)... Normal [facility] Consultation Noteon 02-26-20 Consultation Note Patient: [...] STABLE AND NO WORK UP NEEDED Normal [facility] Comment on above: Result Comment: Elec tronically Signed By: Lisy ERIC, Nick Cheema\.br\Date and Time Signed: 02/25/22 14:40 EST Discharge Instructionson Discharge Instructions [id number]:127 Normal [facility] Inpatient Clinical Summaryon 02-25-2022 Inpatient Clinical Summary [address] [address] Clinical Summary Person Information: Name: ADINA PERRY Age: 81 Years : 1940 Sex: Female PCP: ADRINAA CRUZ DO Marital Status: Race: White Ethnicity: Non- or Language: Greek Visit Id: Visit Reason: Fatigue; Post surgical problem; ABD PAIN, ABNORMAL 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 Care Team Members: Attending Physician: MELI ERIC, J Carlos Consulting Physician: Jannet ERIC, Mary Viera MD Referring Physician: Follow up: With: Address: When: ADRIANA CRUZ [address] [place] [address], [address] [place] [address] [facility] (1) 03/10/2022 11:00 AM Comments: Appointment will be with the LINE UP WORKER With: Address: When: Jay Power 03/03/2022 9:00 AM Comments: Call for followup appointment 2-3 weeks or if already scheduled keep appt. Type Location Start Finish State Post Op 15 [facility] [place] 03/03/2022 9:00 AM 03/03/2022 9:20 AM Confirmed Patient Education Information: Weakness; Abdominal Pain, Adult, Ythc-sr-Fgdv Normal [facility] Inpatient Patient Summaryon 02-25-2022 Inpatient Patient [...] Test Results None Pharmacy Information [facility] Previously Scheduled Follow-Up Appointments Thursday 9:00 AM EST With: Jannet ERIC, Jay Lock Where: [facility] General Surgery [facility] Inpatient Patient Summary ADINA PERRY :1940 [...] Test Results None Pharmacy Information [facility] Previously Scheduled Follow-Up Appointments Thursday 9:00 AM EST With: Jay Power MD Where: [facility] General Surgery [facility] Inpatient Patient Summary [address] [address] Patient Discharge Instructions PERSON INFORMATION Name: ADINA EPRRY Date of : 1940 Current Date: 02/25/2022 15:24:21 PHYSICIANS Admitting Physician: MELI ERIC, [facility] Primary Care Physician: ADRIANA CRUZ DO PCP [...] Follow up: With: Address: When: ADRIANA CRUZ [address] [place] [address], [address] [place] [address] [facility] (1) 03/10/2022 11:00 AM Comments: Appointment will be with the LINE UP WORKER With: Address: When: Jay Power 03/03/2022 9:00 AM Comments: Call for followup appointment 2-3 weeks or if already scheduled keep appt. In the event that this physician does not participate in your insurance network, please consult with your insurance company to find a nearby participating provider. Type Location Start Finish State Post Op 15 [facility] 03/03/2022 9:00 AM 03/03/2022 9:20 AM [...] ? Stre (more content not included)... Normal [facility] Interdisciplinary Note - Reji e Manageron 02-25-2022 Interdisciplinary Note - Assistant Program Manager CRM to room to discuss DC planning. Patient is alert, oriented and participates in DC planning. Patient is from home alone, has good family support. Patient daughter will transport at DC. Patient PCP, home DME and insurance reviewed. Patient is observation for abdomen pain and abnormal cardiac markers. Patient had a CT of abdomen and chest, see reports. Patient was rounded on by Anjali WESLEY, CRM waiting for updates. Patient is getting IVF. She is pending consults of gen sx, and cardiology. Patient was evaluated by PT/OT and they have no recs. Patient denied need for HH or PT. Patient provided CRM contact information, white board updated. Patient anticipated DC later today or 02/26. CRM following [facility] Comment on above: Result Comment: Elec tronically [...] home safely and independently once medically stable. [facility] Main OR Intraoperative Recor don 02-25-2022 Main OR Intraoperative Record [facility] Monitor Recordon 02-25-2022 Monitor Record [id number]:127 [facility] Monitor Record [id number]:127 [facility] Postoperative Documentson Postoperative Documents [id number]#[id number]:127 Normal [facility] Troponin 9 Hr.on 02-25-2022 Troponin I.cardiac [Mass/Vol] 90.10 pg/mL Abnormal 10.10-27.1 0 [facility] Comment on above: Result Comment: Crit [...] High Sensitivity Troponin I Instructions For Use, [address], November 2017) Performed By: #### 1 [id number] #### [facility] [address] [place] [address] Auto Diffon 02-24-2022 Basophils/100 WBC (Bld) 2.8 % High 0.0-2.0 [facility] Comment on above: Order Comment: Order Added by Discern Expert. Performed By: #### 1 [id number], 9494773, 6567443, 9970631, 01185239, 4345061, 3999924, 6825014 ####[facility] [address] [place] [address] Basophils/Leukocytes Auto (Bld) [Pure # fraction] 0.2 E9/L Normal 0.0-0.2 [facility] Comment on above: Order Comment: Order Added by Discern Expert. Performed By: #### 1 6367133, 3455328, 8053472, 2979609, 77921869, 3518642, 8564189, 3449362 ####[facility] [address] [place] [address] Eosinophils/100 WBC (Bld) 3.6 % Normal 0.0-8.0 [facility] Comment on above: Order Comment: Order Added by Discern Expert. Performed By: #### 1 4906073, 7633669, 5896652, 7547306, 57901783, 1591137, 7784213, 7287360 ####[address] [place] [address] Eosinophils/Leukocyte s Auto (Bld) [Pure # fraction] 0.3 E9/L Normal 0.0-0.5 [facility] Comment on above: Order Comment: Order Added by Discern Expert. Performed By: #### 1 1229405, 9441217, 7052246, 0910486, 99852132, 0724853, 8281009, 3948208 ####[address] [address] Lymphocytes/100 WBC (Bld) 12.3 % Low 14.0-50.0 [facility] Comment on above: Order Comment: Order Added by Discern Expert. Performed By: #### 1 7416802, 5030634, 1831813, 4692879, 83331004, 2123731, 6101890, 2937317 ####[address] [address] Lymphocytes/Leukocyte s Auto (Bld) [Pure # fraction] 1.0 E9/L Normal 1.0-4.0 [facility] Comment on above: Order Comment: Order Added by Discern Expert. Performed By: #### 1 9090004, 8419480, 3471420, 3783470, 92168579, 0782563, 3391613, 2895813 ####[address] [address] Monocytes/100 WBC (Bld) 7.4 % Normal 4.0-14.0 [facility] Comment on above: Order Comment: Order Added by Discern Expert. Performed By: #### 1 9261796, 4225452, 9665222, 2400669, 50650125, 0856645, 0667728, 6359598 ####[address] [place] [address] Monocytes/Leukocytes Auto (Bld) [Pure # fraction] 0.6 E9/L Normal 0.2-1.0 [facility] Comment on above: Order Comment: Order Added by Discern Expert. Performed By: #### 1 4325562, 1068343, 8642975, 7195393, 14930529, 2383155, 5876841, 5244206 ####[facility] [address] [place] [address] Neutrophils/100 WBC (Bld) 73.9 % Normal 36.0-75.0 [facility] Comment on above: Order Comment: Order Added by Discern Expert. Performed By: #### 1 9703937, 1328219, 9679734, 3662311, 82412742, 0422696, 7631843, 1980622 ####[facility] [address] [place] [address] Neutrophils/Leukocyte s Auto (Bld) [Pure # fraction] 6.2 E9/L Normal 2.0-7.5 [facility] Comment on above: Order Comment: Order Added by Discern Expert. Performed By: #### 1 1545312, 4122423, 9434770, 0411071, 39028815, 8783316, 3620080, 3892771 ####[facility] [address] [place] [address] BMP 02-24-2022 Creatinine [Mass/Vol] 1.1 mg/dL Normal 0.5-1.3 [facility] Comment on above: Performed By: #### 1 2785293, 4026800, 4211967, 3283481, 25482065, 3232390, 5402361, 8092173 ####[facility] [address] [place] [address] Urea nitrogen [Mass/Vol] 18 mg/dL Normal 5-21 [facility] Comment on above: Performed By: #### 1 9422564, 3239211, 5696176, 6247996, 11244247, 2324406, 4803677, 6965186 ####[facility] [address] [place] [address] Urea nitrogen/Creatinine [Mass ratio] 16 No Units Normal 10-20 [facility] Comment on above: Performed By: #### 1 6612547, 2204607, 4477106, 0091106, 40940683, 3373509, 7925748, 7338130 ####[facility] [address] [place] [address] Anion gap [Moles/Vol] 16 mmol/L Normal 6-16 [facility] Comment on above: Performed By: #### 1 6259839, 5580463, 1645302, 9707374, 72349234, 5500474, 0477956, 2675651 ####[facility] [address] [place] [address] Calcium [Mass/Vol] 10.5 mg/dL Normal 8.9-11.1 [facility] Comment on above: Performed By: #### 1 9062405, 0629646, 5349915, 2506244, 09523609, 0024508, 2017182, 2155070 ####[facility] [address] [place] [address] Chloride [Moles/Vol] 97 mmol/L Low 101-111 [facility] Comment on above: Performed By: #### 1 9262707, 3139443, 8078876, 6711572, 49665831, 2316873, 9578104, 2259515 ####[facility] [address] [place] [address] CO2 [Moles/Vol] 28 mmol/L Normal 21-31 [facility] Comment on above: Performed By: #### 1 7474726, 4957970, 7706138, 1120917, 07053043, 2897704, 2261469, 5906481 ####[facility] [address] [place] [address] Glucose [Mass/Vol] 137 mg/dL Normal 55-199 [facility] Comment on above: Result Comment: If t his glucose result represents a fasting glucose, interpretation should refer to the following reference range: 55-99 mg/dL Performed By: #### 1 1016789, 4832689, 1517428, 4381063, 39117100, 8028064, 3634325, 3149219 ####[facility] [address] [place] [address] Potassium [Moles/Vol] 3.5 mmol/L Normal 3.5-5.3 [facility] Comment on above: Performed By: #### 1 7610960, 8708615, 4216187, 5752416, 26319055, 9619949, 7643275, 2539653 ####[facility] [address] [place] [address] Sodium [Moles/Vol] 137 mmol/L Normal 135-145 [facility] Comment on above: Performed By: #### 1 5257848, 4019053, 2149058, 2868006, 30201866, 5439860, 0663607, 6626339 ####[facility] [address] [place] [address] CBC w/ Auto Diffon Erythrocyte distribution width (RBC) [Ratio] 13.4 % Normal 10.9-14.2 [facility] Comment on above: Performed By: #### 1 5544864, 1911353, 8261825, 7313667, 81550025, 5172845, 3343849, 4900402 ####[address] [place] [address] Hematocrit (Bld) [Volume fraction] 39.5 % Normal 34.0-46.0 [facility] Comment on above: Performed By: #### 1 7036073, 1215577, 4416990, 6108724, 47522084, 3230985, 0626773, 0731886 ####[facility] [address] [place] [address] Hemoglobin (Bld) [Mass/Vol] 14.1 g/dL Normal 12.0-16.0 [facility] Comment on above: Performed By: #### 1 8688924, 7593697, 8122285, 0028587, 73513030, 4907799, 3429739, 2971360 ####[address] [place] [address] MCH (RBC) [Entitic mass] 31.2 pg Normal 27.0-34.0 [facility] Comment on above: Performed By: #### 1 2024457, 6245942, 1884930, 8452556, 79629298, 6533146, 6178471, 2125876 ####[facility] [address] [place] [address] MCHC (RBC) [Mass/Vol] 35.7 g/dL Normal 31.4-36.0 [facility] Comment on above: Performed By: #### 1 0343195, 5984332, 7604614, 1642451, 71927815, 3264945, 6345547, 5412588 ####[facility] [address] [place] [address]4057 MCV (RBC) [Entitic vol] 87.4 fL Normal 80.0-100.0 [facility] Comment on above: Performed By: #### 1 8211332, 5069617, 2421229, 0659721, 75207582, 1590575, 4674299, 0300864 ####[facility] [address] [place] [address]4057 Platelet mean volume (Bld) [Entitic vol] 8.3 fL Normal 6.4-10.8 [facility] Comment on above: Performed By: #### 1 3700570, 8459285, 7924415, 3476661, 54008298, 9778250, 9605904, 2052141 ####[facility] [address] [place] [address]4057 Platelets (Bld) [#/Vol] 295.0 E9/L Normal 150.0-500. 0 [facility] Comment on above: Performed By: #### 1 3318513, 7417945, 2748335, 6393034, 91094584, 9262845, 1330298, 6674403 ####[facility] [address] [place] [address]4057 RBC (Bld) [#/Vol] 4.5 E12/L Normal 4.3-5.9 [facility] Comment on above: Performed By: #### 1 5715900, 1955202, 6911775, 1479956, 45485290, 6487227, 2601196, 9421012 ####[facility] [address] [place] [address] WBC corrected for nucl RBC Auto (Bld) [#/Vol] 8.4 E9/L Normal 4.0-11.0 [facility] Comment on above: Performed By: #### 1 4696692, 9171316, 7341595, 0052780, 14962946, 0461166, 1003843, 5361444 ####[facility] [address] [place] [address] CT Abdomen/Pelvis w/ Contras ton 02-24-2022 CT [...] 81 Rectal Contrast Given? No Normal [facility] CTA Cheston 02-24-2022 CTA Chest [...] FINAL REPORT (more content not included)... Normal [facility] Consent for Treatmenton 02-05 Consent for Treatment [id number]#1.00CD:127 Normal [facility] ED Clinical Summaryon 2021 ED Clinical Summary (Inserted Image. Elvia ble to display) [place] [id number] ED Clinical Summary Person Information Name: ADINA PERRY/[facility] Age: 81 Years : 1940 Sex: Female Language: Greek PCP: ADRIANA CRUZ DO Marital Status: Visit Id: Visit Reason: Fatigue; Post surgical problem; IQDQYGZW-DFDSBVT-YNO PAIN Speciality: Acuity: 2 Enc Type: Emergency Med Service: Emergency Arrival: 02/24/2022 13:07:19 Discharge: LOS: 000 05:49 Checkin: 02/24/2022 13:07:19 Checkout: 02/24/2022 18:56:59 Dispo Type: Admitted as IP to this [facility] EVENTS: Event Name Event Status Request [...] 02/24/2022 18:56:59 02/24/2022 18:56:59 02/24/2022 18:56:59 ADDRESS: [address] [place] [address] [address] [place] [phone] PHYS DOC NOTES: MEDICAL INFORMATION: Prescriptions Given: [...] Abdominal pain; Abnormal cardiac enzyme level Normal [facility] ED Note-Physicianon 02-25-20 ED Note-Physician Basic [...] she is known to Dr. Wasserman from [facility] cardiology. She also stated that previously [...] puff(s), Inhalatio (more content not included)... Normal [facility] Comment on above: Result Comment: Elec tronically Signed By: Jay Emery DO\.br\Date and Time Signed: 02/24/22 17:27 EST ED Patient Education Noteon 02-24-2022 ED Patient Education Note Normal [facility] ED Patient Summaryon 022 ED Patient Summary (Inserted Image. Elvia ble to display) [place] [id number] Patient Discharge Instructions Person Information Name: ADINA PERRY Age: 81 Years Arrival Date: 02/24/2022 13:07:19 Discharge Diagnosis: Abdominal pain; Abnormal cardiac enzyme level Primary Care Physician: ADRIANA CRUZ DO Provider Information Primary Provider: Jay Emery DO Advanced Gluing Pressman:None The exam and treatment you received in the Emergency Department were for an urgent problem and are not intended as complete care. It is important that you follow up with a doctor, nurse practitioner, or physician?s assistant plant control operator for ongoing care. If your symptoms become [...] opioids can be used to help relieve efeeezbb-kk-ydbmkx pain and are often prescribed following a [...] be struggling with addiction, tell your health property caretaker and ask for guidance or call [facility]?S National Helpline at 5-154-285-YUOB. j Source: US Department of Health and Human Services/Center for Disease Control & Prevention [facility] Medications Given: Med (more content not included)... Normal [facility] Hep Func Panelon 02-24-2022 Albumin [Mass/Vol] 4.4 g/dL Normal 3.3-5.0 [facility] Comment on above: Performed By: #### 1 7696060, 4826856, 8426931, 3009349, 04927151, 1761924, 5102372, 1866699 ####[facility] [address] [place] [address] Albumin/Globulin (S) [Mass conc ratio] 1.3 Normal 1.1-2.2 [facility] Comment on above: Performed By: #### 1 1194919, 3916680, 8913995, 8988847, 90079439, 1077907, 2341069, 4326141 ####[facility] [address] [place] [address] ALP [Catalytic activity/Vol] 72 Int._Unit/L Normal 21-98 [facility] Comment on above: Performed By: #### 1 3197625, 5086473, 8379914, 6842813, 87439909, 7660066, 5506746, 4658841 ####[facility] [address] [place] [address] ALT No additional P-5'-P [Catalytic activity/Vol] 16 Int._Unit/L Normal 6-46 [facility] Comment on above: Performed By: #### 1 1410840, 3813822, 0702632, 6956787, 58258095, 6781998, 0917816, 6111488 ####[facility] [address] [place] [address] AST [Catalytic activity/Vol] 18 Int._Unit/L Normal 5-43 [facility] Comment on above: Performed By: #### 1 0452833, 5746516, 7582430, 3388418, 42024378, 2179870, 6413232, 8508923 ####[facility] [address] [place] [address]40[address] Bilirubin [Mass/Vol] 0.7 mg/dL Normal 0.0-1.1 [facility] Comment on above: Performed By: #### 1 8170568, 1638679, 5109527, 3311860, 21495424, 0494147, 8057476, 4383304 ####[place] 8859657 Bilirubin.direct [Mass/Vol] 0.1 mg/dL Normal 0.1-0.4 [facility] Comment on above: Performed By: #### 1 7084968, 4441030, 9904579, 6325374, 64032735, 3818486, 7394042, 4457810 ####[place] 8859657 Bilirubin.indirect [Mass or moles/Vol] 0.6 mg/dL Normal 0.1-0.9 [facility] Comment on above: Performed By: #### 1 8033698, 1031553, 7256358, 6573321, 71876588, 5424048, 6598436, 5575241 ####[place] [address] [place] [address] Globulin (S) [Mass/Vol] 3.5 g/dL Normal 1.4-4.0 [facility] Comment on above: Performed By: #### 1 4609034, 0851333, 0748438, 2874688, 89567441, 5058503, 8000066, 6027190 ####[facility] [address] [place] [address] Protein [Mass/Vol] 7.9 g/dL High 6.0-7.8 [facility] Comment on above: Performed By: #### 1 0445057, 1241562, 0644614, 0867925, 95668861, 5864483, 3814326, 8617959 ####[facility] [address] [place] [address] Lactic Acidon 02-24-2022 Lactate [Mass/Vol] 1.5 mmol/L Normal 0.5-2.2 [facility] Comment on above: Performed By: #### 1 7720572, 1494150, 1929054, 3807029, 48202387, 4461957, 3853934, 2729768 ####[facility] [address] [place] [address] Lipase Levelon 02-24-2022 Lipase [Catalytic activity/Vol] 43 U/L Normal 13-58 [facility] Comment on above: Performed By: #### 1 5964030, 5517205, 1925118, 4454600, 51326865, 6810067, 1221387, 1654948 ####[facility] [address] [place] [address] Monitor Recordon 02-24-2022 Monitor Record [id number]#1.00CD:127 Normal [facility] Monitor Record [id number]#1.00CD:127 Normal [facility] Operative Reporton Operative Report SURGERY DATE: 2021 OIL AND GAS SPECIALIST: Kylie Costa, Certified Plastic Installer INDICATION FOR SURGERY: The patient is a 81 year old female with previous abdominal hysterectomy performed in an open fashion in the presenting with a 2 cm incisional hernia that is symptomatic seen on computerized tomography scan from [facility]. She is here today for robotic assisted [...] condition. Jay Power M.D. lr Dictated: 02/19/2022 [id number] Transcribed: 02/19/2022 Normal [facility] Comment on above: Result Comment: Elec tronically Signed By: Jannet ERIC, Jay Lock\.br\Date and Time Signed: 02/24/22 07:55 EST Troponinon 02-24-2022 Troponin I.cardiac [Mass/Vol] 105.90 pg/mL Abnormal 10.10-27.1 0 [facility] Comment on above: Result Comment: Crit ical Result I_hsTnI:105.[address] EMERY at ER by TIERRA ARMENTA and read back for confirmation at 02/24/2022 17:57:53 The 95% CI (Confidence Interval) PPV (Positive Predictive Value) for myocardial infarction in females is 38 pg/mL, in males 51 pg/mL. The results should be used in conjunction with clinical conditions of myocardial infarction. (TNC High Sensitivity Troponin I Instructions For Use, [employer], November 2017) Performed By: #### 2 697347 #### [facility] [address] [place] [address] Troponin 0 Hr.on 02-24-2022 Troponin I.cardiac [Mass/Vol] 96.00 pg/mL Abnormal 10.10-27.1 0 [facility] Comment on above: Result Comment: Crit [...] conjunction with clinical conditions of myocardial infarction. (TNC High Sensitivity Troponin I Instructions For Use, [employer], November 2017) Performed By: #### 1 1532427, 9579830, 8122672, 4705667, 43999525, 0094115, 6466281, 2768440 ####[facility] [address] [place] [address] Troponin 6 Hr.on 02-24-2022 Troponin I.cardiac [Mass/Vol] 105.10 pg/mL Abnormal 10.10-27.1 0 [facility] Comment on above: Result Comment: Crit [...] High Sensitivity Troponin I Instructions For Use, [employer], November 2017) Performed By: #### 1 1003955 #### [facility] [address] [place] [address] UA With Cult Reflexon 2021 Bilirubin Ql (U) Negative Normal Negative [facility] Comment on above: Performed By: #### 2 883246, 84762518 #### [facility] [address] [place] [address] Clarity (U) CLEAR Normal Clear [facility] Comment on above: Performed By: #### 2 724634, 51285490 #### [facility] [address] [place] [address] Color (U) YELLOW Normal Yellow [facility] Comment on above: Performed By: #### 2 790533, 19687470 #### [facility] [address] [place] [address] Epithelial cells.squamous LM.HPF (Urine sed) [#/Area] 0-2 Normal 0-2 [facility] Comment on above: Performed By: #### 2 174245, 74491176 #### [facility] [address] [place] [address] Glucose Test strip (U) [Mass/Vol] Negative Normal Negative [facility] Comment on above: Performed By: #### 2 134651, 57169305 #### [facility] [address] [place] [address] Hemoglobin Ql (U) Negative Normal Negative [facility] Comment on above: Performed By: #### 2 534177, 95372059 #### [facility] [address] [place] [address] Ketones (U) [Mass/Vol] Negative Normal Negative [facility] Comment on above: Performed By: #### 2 967221, 06720174 #### [facility] [address] [place] [address] Robinson.plasma/Lithiu m.RBC (Bld) [Mass ratio] 0-3 Normal 0-3 [facility] Comment on above: Performed By: #### 2 467577, 61419478 #### [facility] [address] [place] [address] Nitrite Ql (U) Negative Normal Negative [facility] Comment on above: Performed By: #### 2 388354, 15222099 #### [facility] [address] [place] [address] pH (U) 7.0 [pH] Invalid Interpretation Code 5.0-9.0 [facility] Comment on above: Performed By: #### 2 910514, 99539425 #### [facility] [address] [place] [address] Protein (U) [Mass/Vol] Negative Normal Negative [facility] Comment on above: Performed By: #### 2 122039, 26116686 #### [facility] [address] [place] [address] Specific gravity (U) [Rel density] 1.010 Invalid Interpretation Code 1.005-1.03 0 [facility] Comment on above: Performed By: #### 2 912153, 26705750 #### [facility] [address] [place] [address] Type of Urine collection method Clean Catch Normal [facility] Comment on above: Performed By: #### 2 865106, 40289679 #### [facility] [address] [place] [address] Urobilinogen Qn (U) 0.2 {Gemma'U}/dL Normal 0.0-1.0 [facility] Comment on above: Performed By: #### 2 314015, 98438600 #### [facility] [address] [place] [address] WBC Auto Ql (U) 1+ Abnormal Negative [facility] Comment on above: Performed By: #### 2 764958, 14433184 #### [facility] [address] [place] [address] WBC LM.HPF (Urine sed) [#/Area] 0-5 Normal 0-5 [facility] Comment on above: Performed By: #### 2 301264, 34155554 #### [facility] [address] [place] [address] XR Chest Single Viewon 02-24 XR Chest [...] DO Transcribed by: PRESTON Technologist: JOSEPH, Jd [facility] eGFRon 02-24-2022 GFR/1.73 sq M.predicted among blacks MDRD (S/P/Bld) [Vol rate/Area] 58 mL/min/1.73 m2 Low >=59 [facility] Comment on above: Order Comment: Order added by Discern Expert. Result Comment: eGFR is race adjusted. AA=. Performed By: #### 1 8285936, 8051468, 4281506, 6837057, 26965430, 0237864, 2724241, 7059537 ####[facility] [address] [place] [address] GFR/1.73 sq M.predicted among non-blacks MDRD (S/P/Bld) [Vol rate/Area] 48 mL/min/1.73 m2 Low >=59 [facility] Comment on above: Order Comment: Order added by Discern Expert. Result Comment: Yard Goods Salesperson serene kidney disease could be indicated at eGFR's of less than 60 mL/min/1.73m2. Kidney failure is indicated at less than 15 mL/min/1.73m2. Performed By: #### 1 0547857, 0684155, 7499023, 5614340, 88138200, 2502865, 8572608, 2702661 ####[facility] [address] [place] [address] Consent for Anesthesiaon Consent for Anesthesia [id number]#1.00CD:127 [facility] Discharge Instructionson Discharge Instructions [id number]#1.00CD:127 [facility] IntraOperative Documentson 04-22-2021 IntraOperative Documents [id number]#1.00CD:127 [facility] IntraOperative Documents [id number]#1.00CD:127 [facility] Preoperative Documentson Preoperative Documents [id number]#1.00CD:127 [facility] Preoperative Documents [id number]#1.00CD:127 [facility] Consent for Treatmenton 02-04 Consent for Treatment [id number]#1.00CD:127 Normal [facility] Inpatient Patient Summaryon 02-19-2022 Inpatient Patient Summary [address] [id number] [facility] Clinical Discharge Instructions PERSON INFORMATION Name: ADINA PERRY [facility]#:[id number] PHYSICIANS Admitting Physician: Jay Power MD Attending Physician: Jay Power MD PCP: ADRIANA CRUZ DO Discharge Diagnosis: Comment: PATIENT EDUCATION INFORMATION Instructions: Post Op Patient Instructions - FT (CUSTOM); Laparoscopic Ventral Hernia Repair, Care After Medication Leaflets: Follow up: With: Address: When: Jay Power [address] [place] [address], [facility] [address], [employer] [place] [id number] [phone] Business (1) In 7 days 02/26/2022 Comments: Call for followup appointment MEDICATION LIST New Medications [address] [place], [place] [id number], [phone] acetaminophen-hydrocodone ([place] 325 mg-5 mg oral tablet) 1 Tablets [...] Milligram By Mouth every day. Comment: Normal [facility] Main OR PACU I Recordon 02-04 Main OR PACU I Record PACU Phase I Docum ent Type FT Summary Primary Physician: Jay Power MD Finalized Date/Time: 02/19/22 12:21:31 Pt. Name: ADINA PERRY.O.B./Sex: 1940 Female Med Rec #: [id number] Physician: Jay Power MD Financial #: [id number] Pt. Type: A Room/Bed: [facility] Admit/Disch: 02/19/22 05:56:04 - Institution: Case Times [...] 12:21 Pavithra Saeed RN 02/19/22 12:21 Normal [facility] Main OR PACU II Recordon Main OR PACU II Record PACU Phase II Document Type FT Summary Primary Physician: Jay Power MD Finalized Date/Time: 02/19/22 16:14:48 Pt. Name: ADA PERRYMADYSON Shipman/Sex: 1940 Female Med Rec #: [id number] Physician: Jay Power MD Financial #: [id number] Pt. Type: A Room/Bed: [facility] Admit/Disch: 02/19/22 05:56:04 - Institution: Case Times [...] By: Jennie Garcia RN 02/19/22 16:14 Normal [facility] Main OR Preoperative Recordo n 02-19-2022 Main OR Preoperative Record PreOp Document Type FT Summary Primary Physician: Jay Power MD Finalized Date/Time: 02/19/22 08:51:16 Pt. Name: ADINA PERRY /Sex: 1940 Female Med Rec #: [id number] Physician: Jay Power MD Financial #: [id number] Pt. Type: A Room/Bed: [facility]/ Admit/Disch: 02/19/22 05:56:04 - Institution: Case [...] Signed By: Olivier Loza 02/19/22 08:51 Normal [facility] Monitor Recordon 02-19-2022 Monitor Record [id number]#1.00CD:127 Normal [facility] Operative Reporton 2 Operative Report Patient: [...] reparations continued for the proposed operation.. Normal [facility] Comment on above: Result Comment: Elec tronically Signed By: Rk Moreno Jr., DO\Date and Time Signed: 02/19/22 08:20 EST Outpatient Surgery Discharge Instructionon 02-19-2022 Outpatient Surgery Discharge Instruction [place] [id number] Patient Discharge Instructions PERSON INFORMATION Name: ADINA [...] Follow up: With: Address: When: Jay Power [address] [place] [address], [facility] [address], [facility] [address] [place] [phone] Business (1) In 7 days 02/26/2022 Comments: Call for followup appointment Pharmacy Information: You may receive a survey from [employer] asking you to rate your care experience. Your feedback is important and will help us understand what we do well and how we can improve the quality of care we provide to you, your loved ones and our community. It?s an honor to serve you. Thank you for choosing [facility] HERE ARE THE MEDICATION CHANGES THAT OCCURRED DURING YOUR HOSPITAL STAY New Medications [address], [address] [place], [place] [id number], [phone] acetaminophen-hydrocodone (O[place]lin 325 mg-5 mg oral tablet) 1 Tablets [...] and water are not available, use hand colorist formulator. ? Change your dressing as told by [...] ? Do (more content not included)... Normal [facility] Patient Education - Texton 1 04-21-2021 [...] and water are not available, use hand colorist formulator. ? Change your dressing as told by [...] care provider approves. General instructions ? Take sqow-nqs-tekdybg and prescription medicines only as told by your health care provider. ? To prevent or treat constipation while you are taking prescription pain medicine, your health care provider may recommend that you: ? Take cvdk-wnz-qedxweq or prescription medicines. ? Eat foods that [...] 03/09/2013 Document Revised: 03/05/2018 Document Reviewed: 11/12/2016 [employer] Patient Education ? 2019 [employer]. [facility] Progress Note-Physicianon Progress Note-Physician Patient: ADINA PERRY Age: 81 years Sex: Female : 1940 Associated Diagnoses: None Author: Rk Moreno Jr., DO Postoperative Information Post Operative Note: Post Anesthesia Care Unit. Anesthetic utilized: General. Health Status Allergies: Allergic Reactions (Selected) Moderate Percocet- Nausea. Severity Not Documented Darvocet-N 100- Vomiting. Problem list: All Problems BMI 20.0-20.9, adult / SNOMED CT 3834054348 / Confirmed Incisional hernia / SNOMED CT 306909562 / Confirmed RLQ abdominal pain / SNOMED CT 227796830 / Confirmed Ventral hernia / SNOMED CT 0479083758 / Confirmed Weight loss / SNOMED CT 300151001 / Confirmed Resolved: Anemia / SNOMED CT 556894957 Resolved: Fecal incontinence / SNOMED CT 079704499 Resolved: History of colon polyps / SNOMED CT 2173671735 Resolved: Nausea and vomiting / SNOMED CT 45402964 Resolved: Watery diarrhea / SNOMED CT 365638818 Physical Examination Vital Signs 02/19/2022 14:13 EST [...] able to self (more content not included)... [facility] Comment on above: Result Comment: Elec tronically [...] Histories Past Medical History: Resolved Watery diarrhea (371638362): Resolved. Fecal incontinence (047023747): Resolved. Nausea and vomiting (32914345): Resolved. History of colon polyps (1898304853): Resolved. Anemia (080838929): Resolved. Family History: Heart disease Father Primary malignant neoplasm of lung Sister Diabetes mellitus type 2 Father Brother Procedure history: Colonoscopy (178350856) on 01/17/2022 at 81 Years. Comments: 01/17/2022 11:03 EDT Yaz Becerra RN, Jennifer biopsies, diverticulosis EGD - Esophagogastroduodenoscopy (4240983058) on 07/06/2020 at 80 Years. Comments: 01/09/2022 16:[address] Colonoscopy (135448604). Comments: 01/09/2022 16:02 Rajwinder [address] 2010 Esophagogastroduodenoscopy (183585178). Comments: 01/17/2022 11:03 EDT - Hernan MILLS, Jennifer normal, gastric biopsies section (82053793). History of hysterectomy. (4549383044). CE - Cataract extraction (6207046909). Procedure on back (522267640). Arthroplasty of knee (21530029). Bladder operation (0059846740). Social History Social & Psychosocial Habits Alcohol [...] Auto 69.3 % Lymph Auto 20.0 % [place] Auto 8.7 % Eos Auto 1.0 % Basophil Auto 1.0 % Neutro Absolute 7.0 E9/L Lymph Absolute 2.0 E9/L [place] Absolute 0.9 E9/L Eos Absolute 0.1 E9/L Basophil Absolute 0.1 E9/L Glucose Lvl 94 mg/dL BUN 25 mg/dL HI Creatinine 1.2 mg/dL eGFR 43 mL/min/1.73 m2 LOW eGFR AA 53 mL/min/1.73 m2 LOW BUN/Creat Ratio 21 HI Sodium Lvl 140 mmol/L Potassium Lvl 4.7 mmol/L (more content not included)... Normal [facility] Comment on above: Result Comment: Elec tronically Signed By: Rk Moreno Jr., DO\.basia\Date and Time Signed: 02/19/22 06:44 EST Coding Summary.on 02-10-2022 Coding Summary. CD:[id number]:5615085N Gh0bWw +PGhlYWQ+FK2CUBGvS94svIHlv W0XU6sDNY9UHUSEFDVXEV8CXV5 tsQI6WTveX8YjljPd OrxchGKlOL08SPt2RUW1kLwcRY pvnP8zdHCxQ9z4AmGgRI16hO32 QGweWUKjWcC8BqUtjuxsvQGc E9zxZnPofWPmJyx+PHRhYmxlIH oqMMAfNTqiYKVgViTchZazJU4g Ab9qDFVkVWNggZhghMBcZzZs y1fzMHRwZZrgDL5nxQjrV6ApoD P7CETwp5e6Zj38sTQ+PHRkIHN0 bDoaTHvau042CdNqa4txMFR2 tCUeTVeaRAO7U51bj5F6ZBFhCI YmDFK8hWX6gZ2zbPvfpzraE6Qk fIZpFqR7WBW0xJYnxQ3odZbp mnjktN1yWlm+A71WNN2FJBKPKC 3CHtu3R2ReZurosTT+EA42BZAl NC76jVAwjKCxa4yodQq4FfEl FTRuRIR6wNpuPRdsy5IlTMUwM9 4ccKIfx6N0IYDelQhydUCsUoFq mYY3yR7mAYfewmmdw3djolyh Ogrrh2xnib36mT34B57mRPtmIH JhYKN1LAQeHLVvvMuikz0kiS0s Ii8+SHmki1crg0vsuKp3HlYw ZUGbuxWakIppTAM3d2LeGs62U5 MkxSfrf4PpMrd8ph76uUCjo6U4 xQY8ZSzkBPDqkA9lOIdbErX5 AGFqEiTvoJ76yIJbVTokCp6vvD puaIbxGH4gWNPygbxtZDTsqO8s JLMjvRLxbIciGN5aXXQkbuxn k017TcDuYLO0DMAojMDbP2WoaB 4tWqMmJOBhVSQzC5TufDKyOIcb W975IHjeWeX1OJDgdnVfW0Cl UJAwfQtpKzM5r7B5Yo5Jd6Wkqh geBJA2ELvpBJXuDpN8CqRgMdS7 F5PxDbx0EIRcoPlkTE4vD9Pk CVEzlvgdxowcqLB5MFOfZNPteK 66nHCnZXuhLz1wk9C4q302NYZc MIMiuT35Ej0fgNcePIRbkODL vI9zdwksw0xyasiyKhSpNRDkKZ d2XKj6NKZzzDutPfAzJUU3DxE9 JXV9oZHcnY0jzOppnkimyR3v Oyc+B76ibX7aSVG3OAM4cjjxGV SdogJwEO96NK13R4OoOulbhCEs bGU+CACimcNmdTdyXJ8wXlSz t3xfy9TvYOulW5CuKFGjVCzjSq z0GHEdCUJ4wHP0gM7tWIQhFDfg i4N3lDN2T7DieuOaql5cj3hv HDHuBOmjH35leXMzm7X1LJJlaR A4KXKtmLwrGuVbxP96Abc+PGNv eThrt3OwNrfst3dvb1zxhQh2 RiSwDIKnjmSreWtrWIF9i3EuRc 84S01wCTrbALGuVRUqZAKrWDYb qAolcj5ovU1tVm1+PGNvbCB3 eBN6uU9rIZSxVsW3TRsqT611Ew EddWYgMgerc2hgo0lpnZm3DkNy CNHigpQlwAzzWKT9i1BrSz12 U19uAIksCBLhZYPsUWFjRFUzfN decy7ehK5bFi9+LX7rw1vqst83 hM26kBR+YSFvCWW7nFyfUSjc ZXHptZ2gKWrtLvT6SWQgGvHllE 12rFEfMEskEs4taHegtXusOK2n DZXbbjygq212WxTkx9scAISk fIBnZQmgEWV2L87ke4M6PKIwFM FpAIS2mVC8nP2ujKzsprbozVQs lFihizPmcNloFToeHNxaF023 IHRvcDsnPlBhdGllbnQgTmFtZT d5B2BpCta8WFByhKvsBL8jmIMx KCgzSs5quKapjZqhWR7qTQAg tbnjv683KjVyo8xhWUNjzWVyHG igSVN9M46qh0D9MPWdOSLfHLA0 mRV1gW5rtCdxdkqsjXLgiGrj wtUkeRyoBZefHNhzW137LKHcqN oaQeQdiqIjLVLeqUU1TV24RU83 hIQof4X5jSQ6L6RhONUugrij mvvtfJS5YHCpOQCpaJ75Rn1hyU jfDt1dENTdTZC2FEHflYNuN1Cx dR2xQvFyEAAhXGGlB5BvoTCc WJptS233LNnpYrM9LYZmtiLaV0 RuZWNztVxhOoY0b3E8On7WD4K4 ZH81YM99kSAtf9W6lWI5F6Ik IOGwjddgkqboxSO0TMIcSYCuwI 08Ou1irUvvXg2jTTZrPOB9AQCf jRIiF7ItvP1qFnNuZMJbIWCt P1EerCXtSFtrW434YQvyUrW0GH ZxyqEfI0PxATZqaWskToI9z8P7 In0MDHx1RT72FO24xORuk9E1 kGL6Y8TgWVFrvdihbhjlnVH4NM HpDAPhgO13Le9oeUijUx5dEUIh JZD6FOMcrSLcO6ScaS0rUfBe NANvOJQtF6TpzSQxNEbaJ340VK ogOuT7SONrjkZkH7XzNVXjwJoa MiO2s5M5Tq2PJNMpXM33CAW0 nNA4HM33QT16W5KsIgojxDLdtM U+PHRhYmxlIHdpZHRoPScxMDAl XoNbyUzcDC4wLg2dXZZhRMEw yVcvhCDtJuAhc4plQLKvVHvhMI 9btRuyF6PuvOT8UAYfu5w8Ct87 K98dT7ChlFB+LLDieTW8nRN0 rL9nLlLdZoR9BLnmW988ZkIwmM EzAmvej5cll4ffzRy4LdF5LJAv vhUtvZnhNZQ7h4IfWa32V41n IHdpZHRoPSIxNSUiIHZhbGlnbj 5hiG1lIk7+CLRpuIG4rHU1dY8m ZcJxCvO3HRhjK358VlLcnFCv Hzrbd7fho9asaOk4JfFqTXRqqi GivBfbMQP2f2YpBf74Y2KgrVsq k2VxDrk7la71wISso7Z2vWE9 H1UzIWHsgwggyWOviNsoJG3vNK OclmvcYHBqwG5lAPZpL4n1LmNj ZqL2NPfxC4HpyeH0MGYxwQUx CTqvSLH2P25bv8U0WTSsLAFnXZ N9hUX4eG4xbJuvcircmXVsyLow spEbyDgiHJkqKZrkM807XDRm vNkpRVGagS2lHPWfkFVamSirAJ 0uIUUredwcVpQZH5NLK8BkXQJM XMTAS7tWIJ21YE04mDCjm6A0 sIY3G0WeOQKlpzcmswmojBY5TJ IpKLEvoK24kYRfMVzfDk9fk7W5 z624BSPpKKVmgW00Py3rdWcj BFNbgFCLxD0rcziyj1ifzmegLn ScCEKoHWe5ASc6GPFxvDloIaLz GIF8FgN0KZM2oRNxoC7ydGut nmztzT7yQdt+HDYcCXYsFBk1Wg wvdGQ+YYGmQZP6oIvcBDbvBRKg bA8wECQwV9u0UuTvZxM3LYej P9OlVKTlvzkuUp73gO8mRpOvPk Z3GAceI7JbcdM1SBMxhFOvFUag ZPL4O59re5C3QCKySPQiEMD6 pBM7gA6uvFluzebxuESwmJiqyy ZhqShyDMveCWqbH041TDWtbVcs Eha0HRexKEFlIK60IH18eABp w3G5mKQ1M6IbGPIzzlgyinjnyK K2WWObIBFmiR57cWKhVWqdCm9k b3B4j775BQWdDRDmbK17Ge9t yFosBYTsePFWgR6szojcf1ebjd wsFhOeCHYiPKa6WAo0VBTefBfi EnUiMDB8FpS7XFA4oUZpzI6l yMqhycsouM7mXxp+RmVtYWxlPC 39RW70fSKgw0Q4mTC6L4MsAWOq fjrmgrateOX5KWKfDOQntS44 yLHiGDffGv2nh2C5a025CSCaLF TgtR95Sl6nwCbwDGRpyNWKsN7u lngix4lnblmkRiQyHLBdJAl6 QOo4UUFrhMfnFyLeHEF2RdM5IX R5gUVznA1poEionclmjY9aPyd+ H7R4wJX9wGOjsUrmuLQ+PC90 ab79T2QrZijvNuk5ASEePKP9fH W9sV2xLUWsNFurt5Z8jRK3M0Fy piAucf6zk0ncZMOuVIwvT83d yLPgd7C7ZNUxyIA0VEKeqOaqLl RhyK91Lyx+PBYszCqrn1TvCqoj z0crf1akrAn8IwWwAAZdcgWl xSgoBTW8g8GgPs82O49kDGjsOL ExRHJoAJYiPHIyrDfmqt2ncF4v Ii8+BHUeaFS7wXX6kJ7pHgGx AtN3WPjbZ527AoSpxGBxMelku8 qkh6ngpDk3EpJrVHTewnHckWcd TND2y7DaEx35B0ZmkYlto5Xn Mey9kn16tXIrr9D5jWF3D5LiOO KqcvmhyNWqpPvfPR5rRWIxoozb GBFhmQ6jACHaH7b3BiIyYzG2 ZLdqG4EoxbE7GNZbtBCvBLMelD SHkK2kaaibt4knqgrzSsNcAFCk QMe1LBp2TQJjbZzpCzYnJTB8 JlG7BYX9jEWaqZ9tiHejfmuyiU 9wOyc+TEv7q6hvoRZkUO7wpFE5 GT41WY29uBNrp2G4yXI5S3Pe JECrsdekztywgPO5SZSxIWMqmO 52Kf7aqFlcKb0vABYpQNZ5WBEs pZWgK4MzzI3oLxMgBLLrPLPk Q7AuqCErXBljG684NJqeFlG1VN SugbMfT0PlBRTrhZarGsY3i5K5 Ik4KBS35JR47VV33cBLqx7H6 cQW6B5NcSGZfthismcsyhAE5GJ AlNVTlwW29Ux4jwFmdPk5nEQUe EMS0OIAaoOFtE2MwnZ0oBgZk KKHfTHYgZ6EkyQShOTzhV112XS aoFoJ4TTPqmkIpH7McEFXmoZjd MmA4m8D3My1MHw03AM45RF44 wWUqr8A3oKA4A9IzDMEpgnadpg zmoMD5NCRbGVGxeO59Cg4oaQhn Xa8aPYJyUGW3IGXxmGGnN6Yv cO9gEiPmNZWxRNNzA4UevRFuUQ ljF711TGzyEuC2TMZdmcQbA8Nn QRCyiQcnBiX3o6W0Ee1PHCrj rks5E4TdHgevwXX+PM22NMXeWV 21dKPxhSWkf6gctJy6AgIfKQJl WRW6sJyqDRfhp3XhDOFtF01i bGFw (more content not included)... Normal [facility] Outside Recordson 02-07-2022 Outside Records [id number]#1.00CD:127 [facility] Consent for Procedure/Surger yon 02-05-2022 Consent for Procedure/Surgery [id number]#1.00CD:127 [facility] Outside Recordson 02-05-2022 Outside Records [id number]#1.00CD:127 [facility] Consent for Treatmenton Consent for Treatment [id number]#1.00CD:127 [facility] XR Chest 2 Viewson 2 XR Chest [...] Araiza MD, V. 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 female here [...] pelvis with IV with contrast performed at [facility], which showed a fat containing ventral hernia. However, on review of the actual report of that CT scan from 11/12/2021 at [facility], CT abdomen and pelvis with contrast to rule out diverticulitis. There was nothing mentioning a hernia in the body of the report nor in the findings. [facility] did not push through the images to our PACS system. I am unable to review these myself at this time. Our office is in contact with their radiology department to rectify this mistake. After calling and speaking with our radiology department and [facility], they have put the images through [...] Michelle to record this visit. ANA M front office specialist and provider reviewed before signing. ANA [...] 30 mg, (more content not included)... Normal [facility] Comment on above: Result Comment: Elec tronically Signed By: Jannet EIRC, Jay Lock\.br\Date and Time Signed: 02/03/22 11:22 EDT\.br\Electronically Co-Signed By: Radha Mcgee\.br\Date and Time Co-Signed: 02/03/22 11:04 EDT Reminderson 02-03-2022 Reminders - From: Marly Riggins MA To: Marly Riggins MA; Sent: 02/03/2022 10:11:05 EDT Show up: 02/06/2022 10:10:00 EDT Subject: CT Imaging Reminder/Recall CT done 11/12/2021 at [facility] Spoke with [facility] Imaging and they pushed through the imaging Look at PAC Received imaging per Dr. Power [facility] RAD - CT Reporton 01-31-[address] - [address] Report [id number]#1.00CD:127 [facility] IntraOperative Documentson 1 IntraOperative Documents [id number]#1.00CD:127 [facility] Postoperative Documentson Postoperative Documents [id number]#1.00CD:127 [facility] Coding Summary.on 01-21-2022 Coding Summary. CD:[id number]:[id number] Gh0bWw +PGhlYWQ+KM0XQVBzG88lnQRuw U5SC8vKDI0FJLDRRKDTJV3SYE7 czIN0ETdfO8OypmAr CzdvqFXfOE75ULe7UIS5uHxmXZ gqzE0mvSBjA9c9XhNwVZ34gN62 IOdnZKBmWfD9CcTejdobdEIv B6itVgMmfBHaXfy+PHRhYmxlIH poXIDfFLadOULvXcNhgCjfQS5s Ph4tZPNqLBOofZdhmUDnVfMz q8kfYDBdLVnsVG7qnMytQ0AvkA Q0SLSrz2v8Sr75eGG+PHRkIHN0 jSzaLMlht978GrOtm3isNAR5 tAHbWBqpJBT1S48do6F9PYIaGI RuELT8kYU0wC9pgQawjzaqT2Et vQNjRaN5KMS9vGGiiT9liBxx ymkihN9cCqt+O40OSM5BJYTNJG 6BMuo2Q7GmRjtdaGP+MQ14JKZd EZ54oESdtDUdh4pmfUq5HlOa MEUmQPP7qBfkHOyvo3ViTMStD5 4njUDnt2Z8NEXlcApmuPHoKgUe pZO2aP8bRXiqzkejd2njrtbi Stkkw6uhig16cV88T98yKCshLG QlOJK4RDJwLVXdpLqewk8cgB6e Ii8+FQyvc6eyw0lvwUi2NdHg HGNvmqFeyFyjUFO6w1LmNp95C3 VtfGhtc4UaMwb5ym01eUDng1D3 eXF0VDjyGONmkQ2wKCpsVzX4 DUUvZmPnvO06tOEzUPuqCl6jmM ljxSofHX2sLFLwxhsxSYZcxM2q MDVhyZHueSetPB2fTLCzhxfa g317PpCoEJC1RNHyxNVlM4LfdN 4lHdNmAGXxBSYrI4QucSGhFZcq M936PAwqOsZ1STTgybHtI9Os IWCypIzaJmO0j2T1Qo7Bx9Bcdm kkUPI8JOqsTOAoRiG1DwBuQxD5 U1HgCil1GDShjEtzUN4cE8Dg NJNahntrvgctrUG9QEGsZAQurM 65zTWfPAhfBg0aa9Q5s368ZBHt WRXdvN19Jw8zmAaiNMHafLLW uT6zupoog8jxjvweIsOpTWJkRS j6JFq7CXVmnWfqZrCzJRS8ZnL0 XLL6xUUnvV4muJpsahagvA9y Oyc+X82tcQ2yAGQ1AKD8ptnpIW IysoPiAK24JP53C7CzSebucYMv bGU+QQIrziDfiAcmOS4vFpHb f5fpy6FiQTkoR8JeLDSqQHdaSd p5UMUmKHB7cXN2vO1tLKHtDQuy j8L0lGC4X6YxhjWofu3zz8ui CIHsIEzvX82efTWih8X1KNUrtR D0FJPcjGsgWdHooS56Yzh+PGNv zPvwz2XkTvilb9kje9ixlMv2 ZbGlBTLopkWrwOsbHGJ1x8YjLs 31O30jMIgmKDGwZQXwUGAvSNPo gYvifz3pyJ7nAd4+PGNvbCB3 xAO7tE2eWUDsQpV1ZVftG821St AlqWPfIanyn3szu5muoQy5LhGt WLBkduBgaUevMNZ5g7NaBa83 F84eSJouQLTmUEIpIWSnGVKvkH ymcy0fdC8uEj5+ZM5gj1rpgo78 bD90gSL+KWSsVMX9xGetIPfo GVQkqM7cCWhePwC0PTTnQmKcfK 00gNOlRCqtOy8odZrybIlvTO9j SIGwixshk011BrWyv2aqFVRq xFGlZZnuAIP7L89tc7W7JZUyYF ZzTEL2pMJ2gW8hnLvxcphcrRGv zPfizfEzkLagPQksFNiqH185 IHRvcDsnPlBhdGllbnQgTmFtZT n0Y0YzCcv5KBZufJvgYS5ifEOe YOdbXk7blLgqqKozQW8kVIGc xvhxg211FdMbw3cvDPCibTZkSH zoHOY5K13ew4G5OQBtMGOlTHR6 fBB1kP1vnCggfllskGIncPsy llNhlAefIAymLSijF194FNCegF myQaNnutGgEMWimUT1HF63WI82 uBDrn9E1tRU4H7LfUCWvtmbm nbaiqBY8UGZjOQBhdP75Nc1vcJ xsGf2lPQIwSLG3LVIrjXXsQ1Ki oL5kIzBbKTGtGSAjS3CfwDUo NNufY119LOjqRbK5FXPgssZhW8 QdSZNmpNtmJcV4u5E6Fn5IL0I6 MR07WC92yXQfk5E5wYK9Z3Pi AQPcfwopxdnfmAR8MJRxAOVwnB 23Bf4obSbzUq0iNSAgYBJ4SKDk rDMeN7OqyP2qGbLmTLGuKFVt C7NiqTQlEZslL589PNroHnH4YZ KmxqNqK1KrZUJrpQtoRhB0o0I2 Vn9QYFf1HX36KI64lEHzh7Z4 eXW6B6VwEIEaozxjamhmuSD4SH YtRECxqC24Jp0glFdcMl1tKSFm PFO5UVNiyGKsT1FeeP1vDiUm KBZmXFXdE3QgcLUwRSijX390ST cwZfL4IYEtksHrJ7QvXWVzxWos VyC7s4T6De7TVMVoSI29XKX2 iXQ3NY15TU62M5ZxFkzoaTSdsV U+PHRhYmxlIHdpZHRoPScxMDAl PcDpwEhkFH4kLb1gBUKgAYWm nWgaeIKrLxOcb0mxUEApYZsyKL 7jgYfuZ0OzpDH2IJYbe6d6Kf14 J28rI3PhzWC+ZICfrWV4jXU5 iY4eBhWnHmD3RDcsP400HnFreK FlQnuci7sfx2uyyBy0ViF1XNWg hwPsuNieUCK6o7BpId00U93p IHdpZHRoPSIxNSUiIHZhbGlnbj 9oqA5qLh2+XOPeoIH1eAD9sC1e LdPgUbZ0DQudR113JoUbiDGb Dfowk1zeg9xhpIy4QhRzOFJcrr FzqEorRGN5w5PtPg08J9ZdsCwu i1UyUhf5kh01lXZnz6Z2sHB5 Z2RaISDiajpgnBVovMyvPD3pTS CiqvrjONOcyH4aYSCiK6i4CdYp ZfE9OIjbH4CkdkU3RUQhgGUh PMdbIGJ3D95mz1S3GGVgSUFhTT Q8dMU9nL0bgOylumeepQPwiWos koAefQkmQOexDStjN104WVVe qZgcSAYzyX9cNMBsfCGihRjgSY 4cKWPijynsFxJVR6YPT9MpNADL QUJJM7rWJE58LB03lPCka8Q4 zIA0D2XrJIDpubzkrraacPB2EV XiOPMwtV69gMDeYSaqMz0ut6X0 s298VQMvVZNsxM32Pm8ohOsh GTYknIJBqX2xxouyo1qunpxkNt WcOBQsVPz8VHo2ETSarTkePrQq RAB0RqT1CRS6tNWenJ1lnTau jcwnkS6mSlg+KFTyAQVzRJa8Pg wvdGQ+FHCnASV2xOztMSriKIWq lR3rFJOnQ2y9FhMvAdR3MYmf T9CyAGXtlirfAr36qQ5hOhJgIv D0EMngY4QulgF2WAOncKMlLEtn LRQ0I95te8L6RTFfIOLhBPF3 cKO6iA7tdVnpjhnopEKlzJixbr IkpBpkSJubOUcmX555LYPcpMow Dqk8KXgvWUUhOC58BZ68uNSc b0S4nVD1L9NxRESmmknyrdkmlH X0XPJhHWHulO96lFRlQNaqSv3p x1G3v859XXCnJCWvjQ27Xw6v cIsjUEBuoYGUgT2seixps0dbpm wmAeSvFIKgPQt8WMg1CGUetNfg OgAeYMF6PhU7ADN3dYYxbE5o hTdqaribpK1fNkb+RmVtYWxlPC 40EV24tVIbn5F3mBT1T0KlCUTl astvttqjpAQ2GUOtTZFyrM41 oCTfBDvnZh4fw6Y4t569UCNtSJ SgjH55Qu9icSqlZEXriPLYkV6n efjwf0arauroPjEiTEVkCHt4 NWf4MBAnfWarKdCwJVH0YpB0YJ Y4gRJfeD6wsKbagtonrE7uZlp+ O0L5mVK7fFZtaSdrmSX+PC90 ww14A6XbNhirVdr7NUAvKEO8iU N9lM3zFJLkWKiqq3L1fBD5P0Zx lkGobl9vc3kvGVMuWJlnL81r qLCko5M1YJDfrNG9YVFclIypMf FasC18Aob+QTSlxHvwx9XaHagr c4llp1bwoPa9EaDcAQHhyoOj qNubRQH3a5XmJd31K05qNHasLQ ZuDYWuGIRuVPCjlHpwdf3eaR4e Ii8+ZVEfeLP9sDV9zD0jYhXr WiC2VWrvA102GgDhvYMoAflmg8 cin4iwqWt8XaCdAGCgbiHwjSqa YDY7i0OpWa93Q1NhrIgdo7Gs Jbb3qd93hKSuc1U8cHW2L8ZsKC OpxjuxhRVepWdsBP6iOAJfkvvw UOIcvA4bBMZfD8m8RqVyWhI6 TKxhO3CdjzE0EDLdgDWhLHWtuL ZJsF6egfczw0zvkjxiVxYuKPNi BCa5XYw2RAYyzHtrUbEcGPF3 MwL9TEO6iJJnvW5hqSkzuysasI 9wOyc+GKo3l7efmCYaKV8qmCK8 DR89OH19vCHkj4W2aVA1W2Vb IAOdegxvlfolpFZ8ISFzGLAiqL 07Lb4mgWviUh8pALUpKHD7MPBt hAHaZ6RidZ3dDyDiUOLrCVQe N2EqmEBbPMjdI507DWnoHfT7PM EhidZhF8MnVUWhpUhgLgM2v0D0 Dn5JBC96YP37NZ89dXFmd8A8 xEF3B7XzWERxqpjhbxcmbMY9HQ AwBAFhqQ67Gb2zvQphOw8qSQLy XIM9VKUomRXqR1AcxX7pJfOs LZNdGINsV4YlpCSvCOqkV912DO zuEgR0UMPffzIvQ0TzQPYuzFlc DvZ5n8X8Xh8XLp35ZP84SV01 yLJsi5C8rHE3Z8WdQURhfsdqlg zzvPR0PKPdFXVhoM54Vp0xiBac Tn5vTFMuONV6AHFgxFIcB5Jn yH2yNaKrQDMnTUXaJ8EvlZUrDL srH482PVmtCgY1IQZzgoOdO6Zm UQReaJskIxE6y9Q4Si2WFBwm rhl6A3OlOuoynTW+KH08BEThJO 58kPLlkNUeb9aoxXz0IgChTJLb YMC9oHsdZJjth3KuHWCdB21y bGFw (more content not included)... Normal [facility] Giardia, Direct, EIAon 01-21 G. lamblia Ag IA Ql (Stl) Negative Invalid Interpretation Code Negative [facility] Comment on above: Result Comment: Perf ormed at: [facility] [address] [id number] PhD Yolanda Jiang Performed By: #### 1 [id number] ####[facility] [address] [place] [address] Main OR Intraoperative Recor don 01-21-2022 Main OR Intraoperative Record IntraOp Document Type FT Summary Primary Physician: Jeferson COPE MD Finalized Date/Time: 01/21/22 11:55:08 Pt. Name: STIVENJenelleADINA /Sex: 1940 Female Med Rec #: [id number] Physician: Jeferson COPE MD Financial #: [id number] Pt. Type: O Room/Bed: / Admit/Disch: 01/17/22 07:25:21 - 01/17/22 23:59:59 Institution: Case Times FT Entry 1 Patient Times In Room 01/17/22 09:27:00 Out Room 01/17/22 09:55:00 Procedure Times Start 01/17/22 09:31:00 Stop 01/17/22 09:53:00 Anesthesia Times Start 01/17/22 09:27:00 Stop 01/17/22 09:55:00 Time at [facility] 01/17/22 09:44:00 Last Modified By: Riddhi Sanchez RN 01/17/22 09:55:43 General Comments: EGD end time at 0934./JEANRN Colonoscopy start time at 0935./JEANRN 01/21/22 Chart opened to review and send charges [facility] CSFA Case Attendance FT Entry 1 Entry 2 Entry 3 Case Attendee Shelly Craig RN, Michelle Fuentes Role Performed Anesthesiologist Finance Professor - Primary Staff - Other Video Game Animator Time In 01/17/22 09:27:00 01/17/22 09:27:00 01/17/22 09:27:00 Time Out 01/17/22 09:55:00 01/17/22 09:55:00 01/17/22 09:55:00 Procedure EGD AND COLONOSCOPY(.) EGD AND COLONOSCOPY(.) EGD AND COLONOSCOPY(.) Comments Dr. Pennington is supervising Last Modified By: Daniel RN, Riddhi Sanchez RN, Riddhi Sanchez RN, Riddhi Maravilla 01/17/22 09:55:43 01/17/22 09:55:43 01/17/22 09:55:43 Entry 4 Entry 5 Entry 6 Case Attendee Elana Sethi JAMB CUTTER, Jasmine COPE MD, Jeferson Alford Role Performed Staff - Other Scrub - Primary Surgeon - Primary Time In 01/17/22 09:27:00 01/17/22 09:27:00 01/17/22 09:27:00 Time Out 01/17/22 09:55:00 01/17/22 09:55:00 01/17/22 09:55:00 Procedure EGD AND COLONOSCOPY(.) EGD AND COLONOSCOPY(.) EGD AND COLONOSCOPY(.) Comments Last Modified By: Daniel MILLS, Riddhi Sanchez RN, Riddhi Sanchez RN, Riddhi Maravilla 01/17/22 09:55:43 01/17/22 09:55:43 01/17/22 09:55:43 Perioperative [...] Participants Riddhi Sanchez RN, Michelle Ray, Elana Sethi, Ashley VILLA, Jasmine Alford, Jeferson COPE MD Time Out Complete 01/17/22 09:30:00 Outcomes Met? [...] and tissue Entry 1 Skin Integrity Intact, [place], Warm, and Outcomes Met? Yes Dry Last Modified By: Riddhi Sanchez RN 10/14/22 07:29:31 Post-Care Text: The patient is free from signs and symptoms of injury caused b (more content not included)... Normal [facility] O & P EXAM, ROUTINE, REFLEXo n 01-21-2022 Ova and parasites identified Concentration Nom (Stl) Comment Invalid Interpretation Code [facility] Comment on above: Result Comment: No o va, cysts, or parasites seen. One negative specimen does not rule out the possibility of a parasitic infection. Performed at: [address] [id number] PhD Yolanda Jiang Performed By: #### 1 [id number], [id number] ####[facility] [address] [place] [address] O & P Exam, Routineon 2021 Ova and parasites identified LM Nom (Unsp spec) Final report Invalid Interpretation Code [facility] Comment on above: Result Comment: Thes e results were obtained using wet preparation(s) and trichrome stained smear. This test does not include testing for Cryptosporidium parvum, Cyclospora, or Microsporidia. Performed at: [facility] [address] [place] [address] [id number] PhD Yolanda Jiang Performed By: #### 1 [id number], [id number] ####[facility] [address] [place] [address] Consenton 01-20-2022 Consent [id number]#1.00CD:127 Normal [facility] Discharge Instructionson Discharge Instructions [id number]#1.00CD:127 [facility] IntraOperative Documentson 1 IntraOperative Documents [id number]#1.00CD:127 Normal [facility] Coding Summary.on 01-19-2022 Coding Summary. CD:[id number] Gh0bWw +PGhlYWQ+YB8ATDLsV10agQWkt D3LZ8dYNZ5ZFXTSXJKPCU5MCM9 iiGZ2DLweJ2YrszGs SeikuIRvEB27XMc0NFK9zZetEI oykE8ybXXrQ6q4TyKgTU42uN74 VBgkDCJmUnM4BsJqrsladHEo M2tfFaAzxQAySku+PHRhYmxlIH xaHLLpYPjeVWOgIxXnbKjgAM5e Aw9pEDCkOTAemRqskBFfTbNc g7yeOFHmKCjhCN8sbAcrO9MvwB G8JZUxp6t5Pt81gET+PHRkIHN0 xJwyZMogl912GrLhh9krXPH0 qBLqYMxpBSI3K36la2Z6YZVvME AwFCJ3eKX5dF3wsKqerujyU5Dw qEVmNbG3EPH9tMHejI4jsCnq dendzN9wWcu+E07SCZ9SACMLHJ 4KBsr3F3JwJzrqtJW+CK97TWOe GP87mQWtqVRzo2qpqFs1ZzTe YMWvUXH8kBpnTVbsm9BvZNOlK7 5gzHNnt1A8PFZbxNsqgWUyRoMf kBE2qT1pCYznixyca0nycgzw Atoee3xhkm98nB63W50fXShqRR UeYQX0AXLcWOKhvPrcxk9hyF3e Ii8+XUspq0rbd1wpfWw8FqWz PITybpKwcWyeIUQ5h9CcTf24L0 LmvXypy2MqJvk2tv28tIZmq0B5 wMD3LWzwAWDohW5gVXqsZkX8 FIBsEgWkdM34qLMeFFoyBa8ryY hspNyeAG0oVTJeoprsDFExoG5s QABpbGHnwXnpFG9jNIMldkaf w777OdLoMER6XCIdjKFnZ8IhwE 5gSfQgQHOqUUYmC6PctQEuFOkd O876KJuoGqV7PPIrfxRmS9Dm BDAnuUyoCdN8g5D8Va8Ap1Qzqm jhOCU0OBhmMBNuUbW0LqQvPpY8 B4RiFcm2TGCewCdjRA2lB3Nx XAHgfqmwupbfaPE2YVXaQJSugT 50tBXzZEajRy9az9O2k098DJIf NUBuhU67Uh5rmHgeOBXhvUOB nV3genjvv6vaurmqUyRlFXLzZV i0RQt6VSDywUmiVuUfXPV3PbX2 NBP0xWPoxV1owOepwpqmaE7u Oyc+Y60xjQ9rUSH1JVC2coanGR ZxnhPzRW75YO27N9PwZeakpIXm bGU+THPlmbVcyDghNR0dZiVi y9dhd7FkTAzcX2ZpADClCLrdLo n7BVOvWBT2oFH7vF1vJKHbOIou c2V6mIH9U7OwupLhfj9tj8co HEYeUJdwQ42uzJUbn1L5PDZgbK R8NQApuZsoXtIcrK33Yhb+PGNv oDtjg7DbNjwla0fwr2xfuJa3 BjVwTKAesaPppJklNDD6q6SiMc 07X75rGSqpLQTrZSXaNMJbAPFb mJqosh2quR8nUe4+PGNvbCB3 uOZ5cV9yHXRiAeQ7RPgdB163Ic UytYPrQtqgt9vzx8jtvOk5IwYb TJKwtgWosClvXTU1s1DxOn22 Z59fPUogRGZvBBUwQKTxDMEovQ zclk2dpD6tWq1+HU3oh9eaov44 kC85iKN+FAJpTNE5aIlqZAba XGClnO8yAJwiKmY1BTCpHgZnfH 71fMBnOTzlEl5zlCcxfDnpVZ3u QRPmutyth515AiVnw3tuKYRh rBFvYWkfKHV7C53gk1L3IATdZN PlQYW6xMA4hS0joErqmirfhJJr dGkztkLrzTndBMnsEFunH034 IHRvcDsnPlBhdGllbnQgTmFtZT k5K4YnXrt9BZCzqPgeGT1ldKJx ZXkpCo2tbCtrzVolUW7iLRNq yhksp924QrGjw9luLIVnxNYeYN srSZG1K17sa9Q7AHTkRIBqUSQ5 iXA2eY5ngIjpvvdiyWZgyAqg mkTfhHpuNDxjAZiuV068TSXwkM olTiQcxbUlVUWrbMV9MF24RN70 qRUgc3J4rWK9R5SjNAAueyfa owolxKR9UMRmPZXoeL68Ru6ayD xqBk2cTCCzHTI4ENBdbMEiJ3Pn xT0sGkXtGFNwPKWvN5WijFPj UVnqH853OMrzIhZ0RFHdhwExJ9 VaYDGxqAumMhP8c9X8Lp4RZ1R7 GL46CZ30gVDpw8D6pHG7K7Nc HGWbpdtcsbieyCD2ONCoMOBwaE 76Ta1lxWekJb4nLFOkXMI6KITy oPVwO3RliP6dIoVxEZXmBRGj Q2UmiHQlKQogN299HDbwXcL5YL FvucVpN8FxCWJgdDfgLpK6h3D2 Mu2JOPq4MF01UP52tJZdy8V0 kLW6D2RyFXUlhocrrpwsmMW2FS NjNLDsbL15Lt5sqDnxEm4rNIFk JPO6FDKlrCUxI2ZoeJ0pUjHd MWLfRDZiC2ZcqIDuTVonS925OA dgArX5QXHcsbFrT7AwGWAasRof ClX6u9N5Ge9YYPDdPR08CQK5 lKD4BK38EF82Y7AgViiqkHFtcK U+PHRhYmxlIHdpZHRoPScxMDAl AiFzeAdePY8fGq4aTPQjHNFt tCbgyHHmIdGhn2wwUOUzHBvnPJ 7daZouK6EdwIM5IRRvb7f4Ah28 B90cT4HwtVE+NLRukPB8fSJ3 zE4yOwZkLuR1UKtyU139OzMxfH TwQprce6sbb2hwyTk8KlA7UMHg feSbuSnkMDB3l7QbLc59V11s IHdpZHRoPSIxNSUiIHZhbGlnbj 7dxU8gYq2+PSBghPI1xQK6vQ8n ThUpSjL1ORvlG837LoNxtTUu Qcysd2wct3mhhQy0XcIbMERxdt AqhIyvPEK9s6FcQd36P2BaiAuo n3XvIku4cu28mZNlx4Y5xRA5 N0JuAADnpsfzcONigSunSP8yDN GxmyczQZBmfQ3wDILhT0x7IcZv HzF0CByaY9EveaG9SJOeiCEb GMvgFKU8H55qn9B3NTDzSOQfCP H4lFI1zK2ctSkreekihKOenChb btAeiSfqTPhzJKsoO909NOVs xPboTUSorG6vLAGptUMucTofJA 4iCZTnzytdNfROB3YXU4ByRRFZ EUJNE9gIAI87ZX31hSDfe1R2 tRE0O1FyNDFskpuxadlpyGZ7WJ QzQPDppD08jDJvTVjfLv0kc4U0 a401GNRfDKUobS13Cy8wtTpw TJOppUNPdZ1iwainj9dzivcsLp MlIBQySUl4SVg0JJThoJmkDvHf CTF4JnT9ULI2kQEjbR9hlUrq nrvrmA0lCzb+PUYpWVUjHPv2Cp wvdGQ+KDBxRIF5rOnuYVjxVUAz mF3tDSMtG8y5WqWhDhF7PMdz S3GaFASndakfDu30dI6oTnDtOp X3JKqmN8CkdqO1QPDkwSLmURcy BHK7P33aj1H8CSExAXLdVMO9 bCM7aB5drTpxgfzmjOGnhQgflh CvdTnoDUllAAofZ759CRUypFkm Amg1JIglUYEcTQ66FW74gRVu c7Q8fIG1E1DzBVFwvswgycrftI A3YALjOAWzvV78rKUcTLtlTf5v w7E5x689ACDiWHRkhR28Rs8a uBzrBIMkwXEDcE2xlroio6oenc rfOnInGXBjFZe2TRm5WIPigLxp ZiYbSCN0SjX6QWZ5zIBsnH9m nTdnjunznI5fVrq+RmVtYWxlPC 50SS32kHJcr5E4aMF7W1IgXBKh ukriuueyqMZ7KFTaFBUnhX69 tXAxHFpwGi4wi5U0d379UMAfTL IadF38At4zwNpsIGBktKGDoB7w sbpjz2ktrnhiUtTzKNOyGQg2 UPo4JQEbdNzmIlGgTXQ2OiT4PV B2iONvfS3pzPagxcadhU3fNdr+ KPPfRCVsz4Hsn2AoCO26HD67 N0HjQzuewYQhtMZ+PHRhYmxlIH kkTACdSWkyEJSfYcAgvQnwXS3u Ce1vEHWlUJXspYlhhKYwIbGt g0fpBMFxGFhyPZ3vzWssE3SjwC H2TDCfv5d8Ok90F76qZ2KeyZM+ JFZahYW0bZJ8wG1mNrZvSoY9 URqsI703HjJkvJCiYhmjl9ofs0 nwqMw5EyCtSPFadtKlzUpqSHL1 y7DsGl79U73aRLakBXFrIMDt LNXjQERwgWdnhl8yoN8pMu0+PG HydWN4dVI7aX0yDiTvGaQ8FTna J634YwCxxREsYnojE18hC4Zw dXA+VTYtJfi5WSGedDqzSI7cxJ KfUUapMn9zPMK8SbIfYhVlINza W8JrGUXyxxmtnxpseJA5PNBk KKEhxZ49Ml7wuXgwOz5yUUBbKF G5ARItoDLwQ0UmvD8cFuYeJZQj TNNbD5InsPSuFGmeU579QWfu RqB6ZTHffaXcL7PtWHFrsNomMk J9m5E0Az0EfZtouMScMR0rDgUc GLx1C9TfTky9PPGyvUioRW5n eVNfFRynHo7sjTxccLbgXL3wSN Gisykdx898AkWkp6ggCZOjmQBd SZgeTLQ5L57og9N5BFUmRDQc RND3tXW8pO9zoBtxonqbfZKssA tgmxBqvHyeRVlcMBjvG410FEPl eCvbRxHWGga2P8LbZmk7FXAe qNgqBB8flDXcPPogOl8paLmdxO kzZG4wASAxqfmtt968EyFjx4yy WCPjsMOyCAghWFV4F14fv0V1 FNUtJZTpNOT8iON4sJ1cvLkeie ogbGVmdDsgdmVydGljYWwtYWxp R870ENFyeWprFk0DVzi5I0Io Bbs5PFCrfVlrNI7qqTTkQDhvSp 9hsPbphGlzWW3yBOIidoide420 YuTqx3bgZOSjgYSvDUznVGU3 R16su9M1WRYuDSDfZLT0mUW8xR 1hbGlnbjogbGVmdDsgdmVydGlj NBohQGkwN210OPDxxFpjPyPi eWVyOjwvdGQ+EG10gv74U6NbRf axPrs7ICIgVRQ5sSD6tH5rIDZw RGjza8E7dHR1C9AaptLrwl6t b2xs (more content not included)... Normal [facility] Consent for Treatmenton 01-04 Consent for Treatment [id number] Normal [facility] Endoscopic Procedure Report - Otheron 01-17-2022 [...] snare 3. Normal duodenum Images Procedure images: Rec_hd_video_0 8_32_50_724.jpg Rec_hd_video_0 8__55_551.jpg Rec1_hd_video_2021__T0 8__03_462.jpg Rec1_hd_video_T0 8__09_938.jpg Rec1_hd_video_14T0 8_33_18_428.jpg Rec1_hd_video_T0 8__35_407.jpg Rec1_hd_video_2021_T0 8_34_25_483.jpg . Post-Procedure Complications: none. Estimated blood loss: none. Specimens: sent to pathology. Devices/ implants: none left in place. Impression and Plan Sessile polyp, 7 mm, in the gastric body, greater curvature, removed completely with cold snare Recommendations: Follow-up in GI clinic in 2 weeks [facility] Comment on above: Result Comment: Elec tronically Signed By: Jeferson COPE MD\.br\Date and Time Signed: 01/17/22 09:56 EDT Other Comment: Quyen vieira Attachment - attachment storage system not supported [id number] Can be viewed in [facility] Attachment - attachment storage system not supported [id number] Can be viewed in source [facility] Attachment - attachment storage system not supported [id number] Can be viewed in source [facility] Attachment - attachment storage system not supported [id number] Can be viewed in source [facility] Attachment - attachment storage system not supported [id number] Can be viewed in source [facility] Attachment - attachment storage system not supported [id number] Can be viewed in source systemMissing Attachment - attachment storage system not supported [id number] Can be viewed in source system Endoscopic [...] GI clinic follow-up in 2 weeks Normal [facility] Comment on above: Result Comment: in [...] Moderate nonbleeding internal hemorrhoids Images Procedure images: Rec1_hd_video_2021__T0 8_49_26_194.jpg Rec_hd_video_T0 8_47_06_773.jpg Rec1_hd_video_0 8_46_38_746.jpg . Post-Procedure Complications: none. [...] Return to activities:: After 24 hours. Normal [facility] Comment on above: Result Comment: Elec tronically Signed By: WILLIAN ERIC, Jeferson\.br\Date and Time Signed: 01/17/22 09:55 EDT Other Comment: Quyen vieira Attachment - attachment storage system not supported [id number] Can be viewed in source systemMissing Attachment - attachment storage system not supported [id number] Can be viewed in source systemMissing Attachment - attachment storage system not supported [id number] Can be viewed in source system Inpatient Patient Summaryon 01-17-2022 Inpatient Patient Summary [address] [address] [facility] Clinical Discharge Instructions PERSON INFORMATION Name: [facility] Admitting Physician: Jeferson COPE MD Attending Physician: Jeferson COPE MD PCP: ADRIANA CRUZ DO Discharge Diagnosis: Anemia Comment: PATIENT EDUCATION INFORMATION Instructions: Upper Endoscopy, Adult, Care After; Colonoscopy, Care After Surgery Domoam (CUSTOM); Diverticulosis MAGR (CUSTOM) Medication Leaflets: Follow up: With: Address: When: Jeferson COPE [address] [facility] [place], [place] [id number] Business (1) Comments: office will call for follow up Type Location Start Finish [address] 02/03/2022 10:20 AM 02/03/2022 10:40 AM [...] cholecalciferol (Vitamin D3) sertraline spironolactone Comment: Normal [facility] Main OR PACU I Recordon 01-04 Main OR PACU I Record PACU Phase I Docum ent Type FT Summary Primary Physician: Jeferson COPE MD Finalized Date/Time: 01/17/22 10:57:57 Pt. Name: ADINA PERRY /Sex: 1940 Female Med Rec #: [id number] Physician: Jeferson COPE MD Financial #: [id number] Pt. Type: O Room/Bed: / Admit/Disch: 01/17/22 [...] By: Jennifer Becerra RN 01/17/22 10:57 Normal [facility] Main OR Preoperative Recordo n 01-17-2022 Main OR Preoperative Record Holding Area Document Type FT Summary Primary Physician: Jeferson COPE MD Finalized Date/Time: 01/17/22 07:57:32 Pt. Name: ADINA PERRYO.B./Sex: 1940 Female Med Rec #: [id number] Physician: Jeferson COPE MD Financial #: [id number] Pt. Type: O Room/Bed: / Admit/Disch: 01/17/22 [...] By: Regino Beckett RN 01/17/22 07:57 Normal [facility] Monitor Recordon 01-17-2022 Monitor Record [id number]:127 Normal [facility] Monitor Record [id number]:127 Normal [facility] Outpatient Surgery Discharge Instructionon 01-17-2022 Outpatient Surgery Discharge Instruction [address] [address] Patient Discharge Instructions PERSON INFORMATION Name: ADINA PERRY Date of : 1940 Current Date: 01/17/2022 10:08:03 PHYSICIANS Admitting Physician: Jeferson COPE MD Discharge Diagnosis: Anemia ADINA PERRY has been [...] Follow up: With: Address: When: Jeferson COPE [address] [place] [address] [phone] Business (1) Comments: office will call for follow up Type Location Start [facility] [place] 02/03/2022 10:20 AM 02/03/2022 10:40 AM Confirmed Pharmacy Information: Destin Pulliam You may receive a survey from [employer] asking you to rate your care experience. Your feedback is important and will help us understand what we do well and how we can improve the quality of care we provide to you, your loved ones and our community. It?s an honor to serve you. Thank you for choosing [facility] HERE ARE THE MEDICATION CHANGES THAT OCCURRED [...] activities are safe for you. ? Take nmzh-sba-xvobmzi and prescription medicines only as told by [...] 09/21/2012 Document Revised: 09/14/2018 Document Reviewed: 08/23/2018 [employer] Patient Education ? 2020 [employer]. Colonoscopy Care After Surgery Please read the ins (more content not included)... Normal [facility] Patient Education - Texton 1 Patient [...] unsweetened, w/added ascorbic acid 1 cup 0.5 [place] 1 cup 0.7 Vegetables Cooked Green beans 1 cup 4.0 Carrots 1/2 cup sliced 2.3 Peas 1 cup 8.8 Potato (baked, with skin) 1 medium potato 3.8 Raw [place] (with peel) 1 cucumber 1.5 Lettuce 1 [...] IMMEDIATE MEDIC (more content not included)... Normal [facility] Progress Note-Physicianon Progress Note-Physician Patient: ADINA PERYR Age: 81 years Sex: Female : 1940 Associated Diagnoses: None Author: Eliecer Pennington DO Postoperative Information Post Operative Note: Post Anesthesia Care Unit. Physical Examination Intake and Output HYDRATION ADEQUATE Vital Signs (last 24 hrs) Last Charted Resp Rate 14 br/min (JAN 17 10:) SBP H 158mmHg (JAN 17:) DBP 81 mmHg (JAN 17:) SpO2 98 % (JAN 17:) Weight 102.26 kg (JAN 17 07:50) BMI [...] PACU when criteria met. Condition good. Normal [facility] Comment on above: Result Comment: Elec [...] list: All Problems Anemia / SNOMED CT 683845034 / Confirmed Watery diarrhea / SNOMED CT 857764516 / Confirmed History of colon polyps / SNOMED CT 4857460870 / Confirmed Fecal incontinence / SNOMED CT 031333652 / Confirmed Nausea and vomiting / SNOMED CT 98446589 / Confirmed RLQ abdominal pain / SNOMED CT 508253667 / Confirmed Weight loss / SNOMED CT 240229642 / Confirmed, Active Problems (7) Anemia Fecal incontinence History of colon polyps Nausea and vomiting RLQ abdominal pain Watery diarrhea Weight loss Histories Past Medical History: No active or resolved past medical history items have been selected or recorded. Family History: Heart disease Father Primary malignant neoplasm of lung Sister Diabetes mellitus type 2 Father Brother Procedure history: EGD - Esophagogastroduodenoscopy ([id number]) on 07/06/2020 at 80 Years. Comments: 01/09/2022 16:03 EDT - Rajwinder Ho Dr Colonoscopy ([id number]). Comments: 01/09/2022 16:02 EDT - Rajwinder Ho 2010 Social History Social [...] review: No qualifying data available . Plan [place] [employer]esthesi[employer] (ASA) physical status classification: Class II. Anesthetic Preoperative Plan Anesthesia: Monitored anesthesia care and general anesthesia possible. Anesthetic plan, risks, benefits, and alternatives discussed with the patient and/or family. Pt. and/or family present and agree to proceed as planned.. Risks discussed including heart, lung, nerve damage. Risks of bleeding, dental injury, hospitalization, and general injury discussed. . Normal [facility] Comment on above: Result Comment: Elec tronically Signed By: Eliecer Pennington DO\Date and Time Signed: 01/17/22 08:36 EDT Coding Summary.on 01-16-2022 Coding Summary. [id number] Gh0bWw +PGhlYWQ+UG3JJAPsX84mpPQai Y1WT9yTXA5SMZENOMCTSL3TBU6 shFS0XNogY3NvwaWk NyjpyCWwRW87FRy5XXR3iCubIS bboP8ojJUbT4p2NmQbBS83nO99 PEecGJWhRxB9KgRaynkfiNJd K3szEbPujNBcOrf+PHRhYmxlIH ewWBRkMLiiWUSeGaGshFhfSE4i Eo9fQLOgCDLccPcopEZlNeSf k3wxGPTkHZviKU0rrHuzE1YxxU U9UTCem4g6Vw12kUF+PHRkIHN0 jRcwXRuen687OcWcs3rgLGG2 tRRhGDyfXLF7Y39kg7G1ZMOuEG EfYVV8hCP0qU9vcVyoxnjoE9Xp yHMxPhS1YKJ4zHFgdA8miHjh fujbzD4mUvm+B03AVF2BYFYIEF 0MDuv9O0XzUezajZP+JY26REBh GQ55yZYqcAKcb7xjeMv2ZyLa YNBtJBM0zCovLMeot4RdWXZtH3 3dwKSyt1W5MRFstLjszSFmGqDm qIB0hK9hOQyrenyck4aghyli Ijost1knyc01aH53F69dPVcvAA WmECV0BUVzULHyfMsctz1fxC2b Ii8+PKjxp0jju7lfuMq4PhKs RXRxwmGlnLedKDG6a7DzMp54L0 WfkXjjf4PiYsn2gx96aQQga9S2 kQP4YZniICQveA0fKVymEpN5 LXUtYrBlmF95pFSzIZwsUa9veQ ewzTgvUT2eODJtmjzjFPFgtX8u XQOxcDKxyYutYV6kDQDubsmz p913VyIkWNB9MZGkzXVoK4VieV 5oQwGiIPIdVHZjI1ZndEJbGZyd L453XPlsPnI2YIWivqBzX7Jr TIMlzNqnVtO2j9K1Ev8Qr2Idse tmDWR3APiqTCXsGmFhPqKqTfC2 O0XgCwi7JIMnxIwdEJ4qF5Uo CYSekczgtonpqLV2HNOvBGRpdZ 56pNPuZKktAd0mn6E5z627UDBp ZJCzhF61Ur1toJbzDBWanRWI oH0wacpaa2ywxtuyPdMtKRKmMU i0LGe2GSWklHchMxPnPAI9RzX3 VNL8lGVgkI0rxMknedkkkU9j Oyc+T20biO4aOFF1MVG3gplkUN GgnuZhHW84ZB59W6UvRmpefNLg bGU+GRHpxhIebMoqFF0rSzLa w1zjr1FfXOkfF1SqWCYkZPpkYp h7CQUfILV6wTS2iG1qYYOkORty w9T5sIA0R5ApdlBtqz9fe4xc CQUfQCtwL47mpUCth6O7GMRrnM Z6XRUnwOtmZyDscX80Hdt+PGNv iQpbv1UmDiuzu0yse3legMe6 QsLxQCSynyWmxQklGNI6m4NrSk 15S52qQLiyRYQlLYNnXGKlKCQa cNeghn4rgN1uDy5+PGNvbCB3 uTL3oK4lHPUwUnK7AXlxH596Rx ClcHEsQhzyk0die5kazTm2KmQf OBFrtbMdfTvjCLO5e6KmCe67 N01rXQsyMQHsCQDsIJCbZELewH xock9tmD3rNh2+WM4eo3zmuh31 pP78lFP+XXByRUG8bFrgHIil TKHweO4pUNptArB8EYRvNmKbzG 40oJMjONkyLk4drFykwSszOP1t PHFwlcnfq346JvIzi0ifRKDp nLFqKJzoQWW2Y80cm7X0VHKjKM BzNHL9gYV6iK5voPbxofuwzCZx sDdguiCxrDeaWUxdUDguA146 IHRvcDsnPlBhdGllbnQgTmFtZT h3A5QmRra5GZCklVhjQT2uwFTh SJpmWu4xmKcgvCagML3eTJRa afqco307WxAtq5ylKJBdtOZySH xiVYH1J03mu1I2OTAhTRIySPT8 xLR8oE1iwBcrisrnrQSjgQze eqQtcLojEChkNIblU034DLLlkI xgYjZvmeEzUFAasAB6TS83DD63 gVAdz6Q9dQU4N5KeKOCqdmmt dhoqhER4CBXqYKTsmS31Op8wfD mxIz2iYDJtHST1YFThlSQvX7Dk zW1nNrYgXLDdWQEdP9PweTDu VWkpZ410FTjuJhY0SJZnpsAfN5 WbALSbiYlqSfP3e9P3Sw8PX6Y2 YR81HR23cDYel2W5rBK7L3Pu BVXnozananqkeQK4SQCfQJOwzL 22Sa6toUqgRw0tLFXzQNW2ZQCb zIUnX3GmiA8sLrQwMKWzXXNo O6DhqSOwYFihC406BAuwGhM8BJ SqoyVfJ6FyMFIudQwjBeU1e3K2 Zd2ALXw6NF16KV68iIIme7B2 vOF8M1OtAHVtzwqijebxrJG8WH MgXIOwuP76Dr2fhSvqPz6pTOLf BYA4UNPbgYVuB2UcsB3dKrJj YMGbMYGcB1MupTPxBNwmL029SU yfStM6PLMpspSoF3IcSNYzgFak UfN2d5V7Pm3ONTKpSV01CMX3 iPC8UE69SN62D0AjVtqkpVHfwE U+PHRhYmxlIHdpZHRoPScxMDAl WhDjqYhvPS7qTp7pAOVjFWNo eOmtuNZxMgOee9cnYBRpQHzaRT 6paKrcI0TqtPH4NPZih0o0Cx83 Y30pN6AdyDV+PHYulWB6oMO4 zM7aIvJmHlS8XTjuM892FkFoqL XqHtpqu5rdx6nojKj5DaN9XCLk ntQjuZwcRFT9y7KnQe69R31k IHdpZHRoPSIxNSUiIHZhbGlnbj 0ilA6xVy5+OFXfaQD5eRE1yJ0k BrWqDnH6FMqrP492AlJqaZHu Qtyzh5yuv2qgoPb0AwGvDIQhvw ZlvZdiFYQ2u8UiGg26T5MvwSrt x8RoYct6jv92aUCpl7D9wLY9 L2PiRTQknqregSWceCuwQP6hWW GlusztEMIiiW4yZPCrX9g4JjVy VsG7CFjlR4PdraQ7JGQplCBn XRvfOGI0Y72vw3V3ODUoWUNvFT S1gGV1cR1fsCsalupnzNUriQip ceIytCfyIAwaREvnF284BLWo aHpcQKPdxV7tUSKunSVjsFueJZ 9cQQRbejzpHtAGP3PJG9LzJHQG LECIB5tEGJ41PK45sZPwl0Q4 eJI6Z4OgOAXillpppnqunTK0DP XwARNazJ45uDCkLGxoFc2ah5K7 o987DAFoADNqiK14Hl1vuXkj LSXopLDWtK0phiakt3xfvejzVh XaIUYsHBk2SSm0UGOitSamOaVy YAS5InU2TAQ3fSJomM7scChv etusbM6gSpg+QTAuUZCqBDv5Po wvdGQ+BYPsEJQ7xUltVAahHTFg nE2sNGTjF7m2DoMzIiB6PCvl W7VrMZApmewyMn44zH2yNzXdXx I7DMshF8XiaxZ6WEPamVVlURyv YAJ2B37gi5N3YUSbSZBfHBO9 eHM0qW2iiWltsfykuKKplKkmte IinQubGIriUOfsS967CYJuuWik Jot1SGzfIPGpSE48VV25yLIg q3G4nKT3E5MbZFCmthnkzgbhwV G1AGKeZIQmmA24fDGfODryVy9v a6J0p584SIIjSJFvmZ62Ws0q oWxmTLQawRNKdJ1lkqtxb7vaep nkTxTxQRHdDKt7DJc9TDBybUwz TcJhKNA0VlJ9WAL3cTSxhL0b lUlnvawydL6bOvt+RmVtYWxlPC 07BU44gIJfw7P4zXW8X9GgBFPz ymfzufjqkLZ3OLCjGFJymR83 fMLaNExuEt9me3U3x685ZJFsIN MrmU37Zq8xzIetQNBcgJIUvZ9v unona3pucblwOjKxYFImGEf0 QYu8ZEJjkDdyOrHhBFC5XdV5WP M9eXQguL2czAumlstnhT5jJtn+ J0S7yTE8qQXzsHqtoYZ+PC90 tx13A4RyUiybLim8GVCnOOJ1dA T0tG1bHVEiXTsmo9P7aPC5Q6Ze mxKxiz4xu4laMXObHRboE92w vXKip6E9YOVgmZI6FROmfLnlEi GzoP43Qrg+WOUteVwdw6CmUyvg x6hgn4pppXz6IzKeSLMwnlLe pOcpPMT0q8XuCx21Z99eSDmfXV IgXPWtVRHyRLLmnDzbsj4okN4i Ii8+ZQPxzZX2zKF8fW3fGwPj JeF7FTnbL735ZlCxrLBhCxriy1 vwi8dcrHq9QbLpQBTokdVurSbc EJJ9l3UsCi57C5ZcdKlvr5Qh Aod4nj84dZNym2F9uUR0U0ToKM UpxgvhuPHexMdsLC3eTNVjjgyl MGGdoE8jCNNiC8h3LvWbXbY2 EBhcE5KqvdQ8JHQxpWBuWAAowG MSxL5ivpafm6suesciJhUfPPXw FFu8TGw6PVHhyDgxPnUfNEL9 PgP9TVK6vBReyW9hrBoeymlizB 9wOyc+YVc1i7mtpDGsGD0xtUF7 VH34NZ39sUHec3Q2sBU7U4Ph YHDpdarczfekaXZ5RIBpZIYyuX 32Yp0koVqwJf6yCKDjKPZ9GYFv xXMqC3JqlI5mYpJqCLEtMVRx W8DrdZInCJgyP128QKyaKrD9WH HehvLmN6CwXFPwrUkhUpH1i4I8 Jv3SBJ21IG25PO08jPGvs7Z9 cAE7E6RaUSTofxgrixazhRP3JD VjPNClmT00Ze5vzYkjEg1uEMJp QKR4YKPpqYNyI6KatO8tMoLb YXHtULVxE6LmyZCeLIbvJ596EE oyNpO0UCZcshMcH7IxIWTkuEue RlI3l4E8Em4BDz24FG11JZ26 jAYqt5B5mBF7U2YyCBMhcbhsml jflFB8RCDbDAIcwD98Pu3gsJgw Ue4dQHYrINS3SVKwaFLcU1Tv vU8jWiTsUWKyDRGbC2EseERvBA kwJ363QHujHuC7PBGeliOhX8Uu UCIcrOvoRlD8n1Q0Xh2NOQif zht6C9LyCghmsAA+LD65MSHuGF 50eZCgyVMyu8gatJf3EgRrDJQc VLK2tItjJApql5GrYGMvP38f bGFw (more content not included)... Normal [facility] C. diff by PCRon 01-14-2022 Clostridium difficile by PCR see comment Invalid Interpretation Code [facility] Comment on above: Result Comment: Unab [...] its clinical significance. Performed By: #### 1 [id number], 252675329, 91193445, 47633499, 92665861, 01923882 ####[facility] [address] [place] [address] Consent for Procedure/Surger yon 01-14-2022 Consent for Procedure/Surgery [id number]:127 Normal [facility] Enteric Panel by PCRon 01-14 C. coli+jejuni+upsaliens is DNA FERN+non-probe Ql (Stl) Not detected Normal [facility] Comment on above: Result Comment: Test ing was performed utilizing reverse frit mixer (RT), polymerase chain reaction (PCR), and array [...] nulcleic acid test. Performed By: #### 1 [id number], 132375560, 17695765, 21293752, 85461346, 23796224 ####[facility] [address] [place] [address] E. coli stx1+stx2 genes FERN+non-probe Ql (Stl) Negative Normal [facility] Comment on above: Performed By: #### 1 [id number], 152605122, 33028865, 05976570, 41010235, 88474281 ####[facility] [address] [place] [address] Enteric Panel by PCR Negative Normal [facility] Enteric Panel Intrl QC Pass Normal [facility] Comment on above: Result Comment: Test ing was performed utilizing reverse frit mixer (RT), polymerase chain reaction (PCR), and array [...] 1 and 2. Performed By: #### 1 [id number], 081516379, 48161804, 77111449, 11710092, 55615978 ####[facility] [address] [place] [address] Norovirus genogroup I+II RNA FERN+non-probe Ql (Stl) Not detected Normal [facility] Comment on above: Performed By: #### 1 537208416, 570456107, 41658868, 10172890, 31373104, 43512827 ####[facility] [address] [place] [address] Rotavirus A RNA FERN+non-probe Ql (Stl) Not detected Normal [facility] Comment on above: Performed By: #### 1 [id number], 331249384, 46150377, 33213991, 86621137, 14149351 ####[facility] [address] [place] [address] S. enterica+bongori DNA FERN+non-probe Ql (Stl) Not detected Normal [facility] Comment on above: Result Comment: This test result should be correlated with clinical presentations and medical history by a healthcare provider to determine its clinical significance. Performed By: #### 1 019935697, 348876012, 68700833, 79136520, 71307328, 64903970 ####[place] [address] [place] [address] Shigella species+EIEC invasion plasmid antigen H ipaH gene FERN+non-probe Ql (Stl) Not detected Normal [facility] Comment on above: Performed By: #### 1 [id number], 435515278, 88931218, 11976773, 53344780, 52149922 ####[facility] [address] [place] [address] V. cholerae+parahaemolyt icus+vulnificus DNA FERN+non-probe Ql (Stl) Not detected Normal [facility] Comment on above: Performed By: #### 1 653925704, 400466804, 84225369, 67534523, 23066332, 21447678 ####[facility] [address] [place] [address] Y. enterocolitica DNA FERN+non-probe Ql (Stl) Not detected Normal [facility] Comment on above: Performed By: #### 1 [id number], 804652893, 19908612, 10269809, 63875547, 98549495 ####[facility] [address] [place] [address] Fecal WBC Lactoferrinon 01-04 Fecal WBC Lactoferrin Negative Normal Negative [facility] Comment on above: Result Comment: The semi-quantitative detection of elevated levels of fecal lactoferrin is a marker for fecal leukocytes and an indication of intestinal inflammation. Performed By: #### 1 [id number], 044888106, 10539311, 10773330, 13846073, 37570138 #### [facility] [address] [place] [address] Ambulatory Visit Summaryon 1 Ambulatory Visit Summary [...] diarrhea Invalid Interpretation Code RLQ abdominal pain [facility] Auto Diffon 01-10-2022 Basophils/100 WBC (Bld) 1.0 % Normal 0.0-2.0 [facility] Comment on above: Order Comment: Order Added by Discern Expert. Performed By: #### 2 961277, 1185348, 45192993, 9384607 ####[address] [address] Basophils/Leukocytes Auto (Bld) [Pure # fraction] 0.1 E9/L Normal 0.0-0.2 [facility] Comment on above: Order Comment: Order Added by Discern Expert. Performed By: #### 2 304295, 6354110, 17976397, 9978423 ####[address] [address] Eosinophils/100 WBC (Bld) 1.0 % Normal 0.0-8.0 [facility] Comment on above: Order Comment: Order Added by Discern Expert. Performed By: #### 2 526346, 6652913, 80224756, 7847425 ####[facility] [address] [place] [address] Eosinophils/Leukocyte s Auto (Bld) [Pure # fraction] 0.1 E9/L Normal 0.0-0.5 [facility] Comment on above: Order Comment: Order Added by Discern Expert. Performed By: #### 2 779391, 8399302, 28415635, 3004384 ####[address] [address] Lymphocytes/100 WBC (Bld) 20.0 % Normal 14.0-50.0 [facility] Comment on above: Order Comment: Order Added by Discern Expert. Performed By: #### 2 942860, 0015257, 19082451, 7714596 ####[address] [address] Lymphocytes/Leukocyte s Auto (Bld) [Pure # fraction] 2.0 E9/L Normal 1.0-4.0 [facility] Comment on above: Order Comment: Order Added by Discern Expert. Performed By: #### 2 477349, 8764242, 63465201, 2340605 ####[address] [address] Monocytes/100 WBC (Bld) 8.7 % Normal 4.0-14.0 [facility] Comment on above: Order Comment: Order Added by Discern Expert. Performed By: #### 2 992910, 3361054, 71004861, 2416024 ####[address] [address] Monocytes/Leukocytes Auto (Bld) [Pure # fraction] 0.9 E9/L Normal 0.2-1.0 [facility] Comment on above: Order Comment: Order Added by Discern Expert. Performed By: #### 2 600955, 6157525, 72362964, 1249343 ####[address] [address] Neutrophils/100 WBC (Bld) 69.3 % Normal 36.0-75.0 [facility] Comment on above: Order Comment: Order Added by Discern Expert. Performed By: #### 2 924418, 8775379, 06302310, 9903216 ####[address] [address] Neutrophils/Leukocyte s Auto (Bld) [Pure # fraction] 7.0 E9/L Normal 2.0-7.5 [facility] Comment on above: Order Comment: Order Added by Discern Expert. Performed By: #### 2 877382, 0009529, 87282581, 1054443 ####[address] [address] CBC w/ Auto Diffon Erythrocyte distribution width (RBC) [Ratio] 14.7 % High 10.9-14.2 [facility] Comment on above: Performed By: #### 2 442409, 9691656, 06084598, 6547938 ####[place] [address] Hematocrit (Bld) [Volume fraction] 37.1 % Normal 34.0-46.0 [facility] Comment on above: Performed By: #### 2 237090, 2582090, 19113719, 3798599 ####[place] [address] Hemoglobin (Bld) [Mass/Vol] 12.2 g/dL Normal 12.0-16.0 [facility] Comment on above: Performed By: #### 2 519463, 9382978, 79962799, 7345901 ####[address] [address] MCH (RBC) [Entitic mass] 30.0 pg Normal 27.0-34.0 [facility] Comment on above: Performed By: #### 2 128335, 2583552, 79443279, 3261665 ####[address] [address] MCHC (RBC) [Mass/Vol] 33.0 g/dL Normal 31.4-36.0 [facility] Comment on above: Performed By: #### 2 606662, 9510789, 75333943, 6872657 ####[address] [address] MCV (RBC) [Entitic vol] 90.8 fL Normal 80.0-100.0 [facility] Comment on above: Performed By: #### 2 830033, 3903325, 89293572, 8057061 ####[address] [address] Platelet mean volume (Bld) [Entitic vol] 7.9 fL Normal 6.4-10.8 [facility] Comment on above: Performed By: #### 2 413954, 8931104, 35284432, 4705649 ####[facility] [address] [place] [address] Platelets (Bld) [#/Vol] 281.0 E9/L Normal 150.0-500. 0 [facility] Comment on above: Performed By: #### 2 591466, 8104778, 38633587, 7612376 ####[address] [address] RBC (Bld) [#/Vol] 4.1 E12/L Low 4.3-5.9 [facility] Comment on above: Performed By: #### 2 272930, 8919083, 24260785, 2230378 ####[address] [address] WBC corrected for nucl RBC Auto (Bld) [#/Vol] 10.1 E9/L Normal 4.0-11.0 [facility] Comment on above: Performed By: #### 2 303183, 6590511, 02922811, 1552477 ####[address] [address] CMPon 01-10-2022 Albumin [Mass/Vol] 4.4 g/dL Normal 3.3-5.0 [facility] Comment on above: Performed By: #### 2 226212, 7630885, 85197207, 5303633 ####[address] [place] [address] Albumin/Globulin (S) [Mass conc ratio] 1.5 Normal 1.1-2.2 [facility] Comment on above: Performed By: #### 2 241486, 4932547, 36833649, 0186735 ####[address] [place] [address] ALP [Catalytic activity/Vol] 55 Int._Unit/L Normal 21-98 [facility] Comment on above: Performed By: #### 2 829527, 5048370, 53121404, 6973921 ####[facility] [address] [place] [address] ALT No additional P-5'-P [Catalytic activity/Vol] 15 Int._Unit/L Normal 6-46 [facility] Comment on above: Performed By: #### 2 008344, 2176907, 92082957, 6350203 ####[facility] [address] [place] [address] Anion gap [Moles/Vol] 19 mmol/L High 6-16 [facility] Comment on above: Performed By: #### 2 677070, 9543676, 34397377, 2542466 ####[address] [place] [address] AST [Catalytic activity/Vol] 19 Int._Unit/L Normal 5-43 [facility] Comment on above: Performed By: #### 2 087462, 0864651, 40272240, 0049538 ####[facility] [address] [place] [address] Bilirubin [Mass/Vol] 0.7 mg/dL Normal 0.0-1.1 [facility] Comment on above: Performed By: #### 2 338897, 4043642, 48961350, 7380780 ####[facility] [address] [place] [address] Calcium [Mass/Vol] 10.5 mg/dL Normal 8.9-11.1 [facility] Comment on above: Performed By: #### 2 693654, 6907306, 14887492, 1587061 ####[facility] [address] [place] [address] Chloride [Moles/Vol] 103 mmol/L Normal 101-111 [facility] Comment on above: Performed By: #### 2 236199, 5232255, [id number], [id number] ####[facility] [address] [place] [address] CO2 [Moles/Vol] 23 mmol/L Normal 21-31 [facility] Comment on above: Performed By: #### 2 357041, 0273770, [id number], [id number] ####[facility] [address] [place] [address] Creatinine [Mass/Vol] 1.2 mg/dL Normal 0.5-1.3 [facility] Comment on above: Performed By: #### 2 833653, 5815223, [id number], [id number] ####[facility] [address] [place] [address] Globulin (S) [Mass/Vol] 2.9 g/dL Normal 1.4-4.0 [facility] Comment on above: Performed By: #### 2 507828, 2487576, [id number], 5850309 ####[facility] [address] [place] [address] Glucose [Mass/Vol] 94 mg/dL Normal 55-199 [facility] Comment on above: Result Comment: If t his glucose result represents a fasting glucose, interpretation should refer to the following reference range: 55-99 mg/dL Performed By: #### 2 750770, 3006560, [id number], [id number] ####[facility] [address] [place] [address] Potassium [Moles/Vol] 4.7 mmol/L Normal 3.5-5.3 [facility] Comment on above: Performed By: #### 2 339181, 7089742, [id number], 0881757 ####[facility] [address] [place] [address] Protein [Mass/Vol] 7.3 g/dL Normal 6.0-7.8 [facility] Comment on above: Performed By: #### 2 836860, 3128391, 48833112, 1074898 ####[facility] [address] [place] [address] Sodium [Moles/Vol] 140 mmol/L Normal 135-145 [facility] Comment on above: Performed By: #### 2 754614, 3487582, [id number], 9360781 ####[facility] [address] [place] [address] Urea nitrogen [Mass/Vol] 25 mg/dL High 5-21 [facility] Comment on above: Performed By: #### 2 667577, 6251294, 38950470, 2866495 ####[facility] [address] [place] [address] Urea nitrogen/Creatinine [Mass ratio] 21 No Units High 10-20 [facility] Comment on above: Performed By: #### 2 228960, 9130916, 82923290, 3012549 ####[facility] [address] [place] [address] Consent for Treatmenton 10-0 Consent for Treatment [id number]:127 Normal [facility] Gastroenterology Office/Clin ic Noteon 01-10-2022 Gastroenterology [...] had previous EGD with Dr. Brannon at [facility] 07/2020 that revealed normal EGD. Was previously evaluated at [facility] 11/12/21 for N/V/D and had CT [...] year. Patient had previous colonoscopy 2010 in [place] and reports was normal. Patient reports hx. [...] to evaluate for acute process. 11/12/21 at [facility]-CT abdomen/pelvis that showed fat-containing ventral hernia. Tenderness [...] at times. (more content not included)... Normal [facility] Comment on above: Result Comment: Elec tronically Signed By: Shi Urbano CNP\.br\Date and Time Signed: 01/10/22 11:40 EDT Patient [...] your local community. General instructions ? Take pvja-ldg-izbfyxb and prescription medicines only as told by [...] Foundation for Functional Gastrointestinal Disorders: [email or web address] ? [employer]: [email or web address] Contact a health care provider if: ? You have a fever. ? You have redness, swelling, or pain around your rectum. ? Your pain is getting worse or you lose feeling in your rectal area. ? You have blood (more content not included)... Normal [facility] eGFRon 01-10-2022 GFR/1.73 sq M.predicted among blacks MDRD (S/P/Bld) [Vol rate/Area] 53 mL/min/1.73 m2 Low >=59 [facility] Comment on above: Order Comment: Order added by Discern Expert. Result Comment: eGFR is race adjusted. AA=. Performed By: #### 2 025795, 8660890, [id number], [id number] ####[facility] [address] [place] [address] GFR/1.73 sq M.predicted among non-blacks MDRD (S/P/Bld) [Vol rate/Area] 43 mL/min/1.73 m2 Low >=59 The [facility] Comment on above: Order Comment: Order added by Discern Expert. Result Comment: Yard Goods Salesperson serene kidney disease could be indicated at eGFR's of less than 60 mL/min/1.73m2. Kidney failure is indicated at less than 15 mL/min/1.73m2. Performed By: #### 2 [id number], [id number], [id number], [id number] ####[facility] [address] [place] [address] Physician Referralon 022 Physician Referral [id number] Normal [facility] Urine culture routineOrdered By: Misbah Greenwood on 11-15-2021 Bacteria identified Cx Nom (U) Escherichia coli [facility] Bacteria identified Cx Nom (U) Klebsiella pneumoniae [facility] Automated erythrocytes count in urine sediment (number/area)Ordered By: Misbah Greenwood on 11-12-2021 RBC Auto (Urine sed) [#/Area] 1-2 [HPF] 0-4 [facility] Automated leukocytes count i n urine sediment (number/area)Ordered By: Misbah Greenwood on 11-12-2021 WBC Auto (Urine sed) [#/Area] 10-19 [HPF] 0-4 [facility] Automated urine hyaline cast s count (number/volume)Ordered By: Misbah Greenwood on 11-12-2021 Hyaline casts Auto (U) [#/Vol] Rare [LPF] 0-1 [facility] Basophils Auto (Bld) [#/Vol] Ordered By: Misbah Greenwood on 11-12-2021 Basophils (Bld) [#/Vol] 0.1 10*3/uL 0.0-0.2 [facility] Basophils/100 WBC Auto (Bld) Ordered By: Misbah Greenwood on 11-12-2021 Basophils/100 WBC (Bld) 0.7 % . [facility] Bilirubin Test strip Ql (U)O rdered By: Misbah Greenwood on 11-12-2021 Bilirubin Ql (U) Negative Negative [facility] Blood hemoglobin measurement (mass/volume)Ordered By: Misbah Greenwood on 11-12-2021 Hemoglobin (Bld) [Mass/Vol] 10.8 g/dL 11.8-15.4 [facility] Blood leukocytes automated c ount (number/volume)Ordered By: Misbah Greenwood on 11-12-2021 WBC (Bld) [#/Vol] 12.3 10*3/uL 4.5-11.[address] [facility] Body fluid albumin measureme nt (mass/volume)Ordered By: Misbah Greenwood on 11-12-2021 Albumin (Body fld) [Mass/Vol] 3.7 g/dL 3.2-5.5 [facility] COVID-19 SOFIAOrdered By: Kee Greenwood on 11-12-2021 SARS-CoV+SARS-CoV-2 (COVID-19) Ag IA.rapid Ql (Resp) Negative Negative [facility] Comment on above: This is a duplicate Johana SARS Antigen (DEEDEE) result to be used for statistical tracking purpose only. Casts typing in urine sedime nt by light microscopyOrdered By: Misbah Greenwood on 11-12-2021 Casts LM Nom (Urine sed) None seen [LPF] None Seen [facility] Color Auto (U)Ordered By: Kee Greenwood on 11-12-2021 Color (U) Yellow Yellow [facility] Creatinine and Glomerular fi ltration rate.predicted panel (S/P/Bld)Ordered By: Misbah Greenwood on 11-12-2021 Creatinine [Mass/Vol] 1.58 mg/dL 0.44-1.03 [facility] Eosinophils Auto (Bld) [#/Vo l]Ordered By: Misbah Greenwood on 11-12-2021 Eosinophils (Bld) [#/Vol] 0.2 10*3/uL 0.0-0.45 [facility] Eosinophils/100 WBC Auto (Bl d)Ordered By: Misbah Greenwood on 11-12-2021 Eosinophils/100 WBC (Bld) 1.4 % . [facility] Erythrocyte distribution wid th Auto (RBC) [Ratio]Ordered By: Misbah Greenwood on 11-12-2021 Erythrocyte distribution width (RBC) [Ratio] 13.7 % 11.9-15.3 [facility] Estimated glomerular filtrat ion rate (GFR) non- AmericanOrdered By: Misbah Greenwood on 11-12-2021 GFR/1.73 sq M.predicted among non-blacks MDRD (S/P/Bld) [Vol rate/Area] 32 mL/Min [facility] Globulin Calc (S) [Mass/Vol] Ordered By: Misbah Greenwood on 11-12-2021 Globulin (S) [Mass/Vol] 3.0 g/dL [facility] Hematocrit Auto (Bld) [Volum e fraction]Ordered By: Misbah Greenwood on 11-12-2021 Hematocrit (Bld) [Volume fraction] 32.4 % 34.0-46.4 [facility] Ketones Auto test strip (U) [Mass/Vol]Ordered By: Misbah Greenwood on 11-12-2021 Ketones (U) [Mass/Vol] Negative Negative [facility] Laboratory - Chemistry and C hemistry - challengeOrdered By: Misbah Greenwood on 11-12-2021 Lipase [Catalytic activity/Vol] 44.0 U/L 22-51 [facility] Laboratory - Hematology and Cell countsOrdered By: Misbah Greenwood on 11-12-2021 Nucleated RBC/100 WBC (Bld) [Ratio] 0.0 % 0-0.5 [facility] Lymphocytes Auto (Bld) [#/Vo l]Ordered By: Misbah Greenwood on 11-12-2021 Lymphocytes (Bld) [#/Vol] 0.9 10*3/uL 1.00-4.8 [facility] Lymphocytes/100 WBC Auto (Bl d)Ordered By: Misbah Greenwood on 11-12-2021 Lymphocytes/100 WBC (Bld) 7.5 % . [facility] MCH Auto (RBC) [Entitic mass ]Ordered By: Misbah Greenwood on 11-12-2021 MCH (RBC) [Entitic mass] 29.9 pg 24.7-34.3 [facility] MCHC Auto (RBC) [Mass/Vol]Or dered By: Misbah Greenwood on 11-12-2021 MCHC (RBC) [Mass/Vol] 33.2 g/dL 32.0-35.0 [facility] MCV Auto (RBC) [Entitic vol] Ordered By: Misbah Greenwood on 11-12-2021 MCV (RBC) [Entitic vol] 90.0 fL 80-100 [facility] Monocytes Auto (Bld) [#/Vol] Ordered By: Misbah Greenwood on 11-12-2021 Monocytes (Bld) [#/Vol] 1.0 10*3/uL 0.0-0.8 [facility] Monocytes/100 WBC Auto (Bld) Ordered By: Misbah Greenwood on 11-12-2021 Monocytes/100 WBC (Bld) 8.3 % . [facility] Neutrophils Auto (Bld) [#/Vo l]Ordered By: Misbah Greenwood on 11-12-2021 Neutrophils (Bld) [#/Vol] 10.1 10*3/uL 1.8-7.7 [facility] Neutrophils/100 WBC Auto (Bl d)Ordered By: Misbah Greenwood on 11-12-2021 Neutrophils/100 WBC (Bld) 82.1 % . [facility] Nitrite Test strip Ql (U)Ord ered By: Misbah Greenwood on 11-12-2021 Nitrite Ql (U) Negative Negative [facility] No Panel InformationOrdered By: Misbah Greenwood on 11-12-2021 Estimated GFR () 38 mL/Min [facility] Comment on above: GFR estimated refere nce range: According to KDOQI guidelines, <60 ml/min/1.73m2 is sufficient to diagnose a patient with chronic kidney disease. Pharmacy Creatinine Clearance (Chem 20.67 [facility] SARS Antigen (LFIA) [facility] Platelet mean volume Auto (B ld) [Entitic vol]Ordered By: Misbah Greenwood on 11-12-2021 Platelet mean volume (Bld) [Entitic vol] 7.6 fL 6.3-10.7 [facility] Platelets Auto (Bld) [#/Vol] Ordered By: Misbah Greenwood on 11-12-2021 Platelets (Bld) [#/Vol] 379 10*3/uL 150-450 [facility] Protein Auto test strip (U) [Mass/Vol]Ordered By: Misbah Greenwood on 11-12-2021 Protein (U) [Mass/Vol] Trace mg/dL Negative [facility] Protein [Mass/volume] in Ser um or PlasmaOrdered By: Misbah Greenwood on 11-12-2021 Protein [Mass/Vol] 6.7 g/dL 6.1-7.9 [facility] RBC Auto (Bld) [#/Vol]Ordere d By: Misbah Greenwood on 11-12-2021 RBC (Bld) [#/Vol] 3.59 10*6/uL 3.60-5.[address] [facility] Serum or plasma alanine villanueva otransferase measurement without P-5'-P (enzymatic activiOrdered By: Misbah Greenwood on 11-12-2021 ALT No additional P-5'-P [Catalytic activity/Vol] 13 U/L 10-60 [facility] Serum or plasma albumin/glob ulin mass ratioOrdered By: Misbah Greenwood on 11-12-2021 Albumin/Globulin [Mass ratio] 1.2 {ratio} [facility] Serum or plasma alkaline ladarius sphatase measurement (enzymatic activity/volume)Ordered By: Misbah Greenwood on 11-12-2021 ALP [Catalytic activity/Vol] 74 U/L 32-92 [facility] Serum or plasma aspartate am inotransferase measurement (enzymatic activity/volume)Ordered By: Misbah Greenwood on 11-12-2021 AST [Catalytic activity/Vol] 17 U/L 10-42 [facility] Serum or plasma calcium dennis urement (mass/volume)Ordered By: Misbah Greenwood on 11-12-2021 Calcium [Mass/Vol] 9.5 mg/dL 8.2-10.2 [facility] Serum or plasma chloride brea surement (moles/volume)Ordered By: Misbah Greenwood on 11-12-2021 Chloride [Moles/Vol] 103 mmol/L 95-114 [facility] Serum or plasma glucose dennis urement (mass/volume)Ordered By: Misbah Greenwood on 11-12-2021 Glucose [Mass/Vol] 118 mg/dL 70-100 [facility] Comment on above: ADA recommended refe rence range Random Glucose Reference Range is dependent on time and content of last meal. Glucose of more than 200 mg/dL in a nonstressed, ambulatory subject supports the diagnosis of Diabetes Mellitus. Serum or plasma potassium me asurement (moles/volume)Ordered By: Misbah Greenwood on 11-12-2021 Potassium [Moles/Vol] 3.7 mmol/L 3.5-5.1 [facility] Serum or plasma sodium measu rement (moles/volume)Ordered By: Misbah Greenwood on 11-12-2021 Sodium [Moles/Vol] 135 mmol/L 136-146 [facility] Serum or plasma total biliru bin measurement (mass/volume)Ordered By: Misbah Greenwood on 11-12-2021 Bilirubin [Mass/Vol] 0.3 mg/dL 0.3-1.2 [facility] Serum or plasma total carbon dioxide measurement (moles/volume)Ordered By: Misbah Greenwood on 11-12-2021 CO2 [Moles/Vol] 19.9 mmol/L 22.0-30.0 [facility] Serum or plasma urea nitroge n measurement (mass/volume)Ordered By: Misbah Greenwood on 11-12-2021 Urea nitrogen [Mass/Vol] 21 mg/dL 9-23 [facility] Specific gravity Auto test s trip (U) [Rel density]Ordered By: Misbah Greenwood on 11-12-2021 Specific gravity (U) [Rel density] 1.012 1.001-1.03 0 [facility] Squamous epithelial cells de tection in urine sediment by light microscopyOrdered By: Misbah Greenwood on 11-12-2021 Epithelial cells.squamous LM Ql (Urine sed) 5-9 [HPF] 0-2 [facility] Urine bacteria detection by automated methodOrdered By: Misbah Greenwood on 11-12-2021 Bacteria Auto Ql (U) None seen None Seen [facility] Urine clarity by refractomet ry automatedOrdered By: Misbah Greenwood on 11-12-2021 Clarity Refractometry automated (U) Clear Clear [facility] Urine glucose measurement by automated test strip (mass/volume)Ordered By: Misbah Greenwood on 11-12-2021 Glucose Auto test strip (U) [Mass/Vol] Normal mg/dL Normal [facility] Urine hemoglobin detection b y automated test stripOrdered By: Misbah Greenwood on 11-12-2021 Hemoglobin Auto test strip Ql (U) Negative Negative [facility] Urine leukocyte esterase det ection by automated test stripOrdered By: Misbah Greenwood on 11-12-2021 Leukocyte esterase Auto test strip Ql (U) 1+ Negative [facility] Urine sediment renal epithel ial cell count by microscopy (number/high power field)Ordered By: Misbah Greenwood on 11-12-2021 Epithelial cells.renal LM.HPF (Urine sed) [#/Area] None seen [HPF] 0-1 [facility] Urobilinogen Auto test strip (U) [Mass/Vol]Ordered By: Misbah Greenwood on 11-12-2021 Urobilinogen (U) [Mass/Vol] Normal mg/dL Normal [facility] pH Auto test strip (U)Ordere d By: Misbah Greenwood on 11-12-2021 pH (U) 5.5 [pH] 5.0-9.0 [facility] SCREENING MAMMOGRAM W/DANIEL, BILATERAL*on 10-18-2021 SCREENING MAMMOGRAM [...] TO YOUR HEALTH. THE CURRENT CITIZEN OF [place] [employer] GUIDELINES RECOMMEND ANNUAL MAMMOGRAPHY BEGINNING AT AGE 42. THIS FACILITY UTILIZES A REMINDER SYSTEM TO ENSURE ALL PATIENTS RECEIVE A REMINDER NOTIFICATION AT THE APPROPRIATE TIME BASED ON THE RECOMMENDATIONS OF THIS EXAM. BOARD CERTIFIED RADIOLOGIST. ACCREDITED BY THE [facility] AND FDA. Report reported and signed by Claudia Hinson on 10/21/2021 1432 Normal [facility] Lead Engineer [facility] CARDIAC STRESS/REST INJE CTIONon 08-28-2021 [facility] CARDIAC STRESS/REST INJECTION Addendum Begins Patient [...] PERFUSION STRESS TEST WITH LEXISCAN Performing facility: [facility], [address] [place] [address], [address], [address] Provider: Mary Ayala MD PCP: Dr. Cruz Supervising provider: Mary Ayala MD INDICATION: CAD; SOBOE Nonischemic cardiomyopathy HISTORY: Gender: F; Age: 81 y/o ; Height: 149.8 cm; Weight: 52.7 kg. High Cholesterol; HTN; SOB; Denies smoking. COMPARISON: Previous nuclear testing completed [id number] at [facility]. ACCESSION NUMBER(S): [id number]; [id number]; [id number] ORDERING CLINICIAN: MARY AYALA TECHNIQUE: ONE DAY [...] Electronically signed by: MARK ZAMBRANO MD Normal [facility] No Panel Informationon 08-28 Normal [facility] [address] DO Work Phone: [facility] [address] DO Work Phone: [...] Instructions By signing my name below, I, Víctor Way LPN, attest that this documentation has been prepared [...] 07Jun2021 03:06PM Heart Rate60, L Brachial Artery Ljwdodwe047, LUE, Sitting Sqjtnnlkp25, LUE, Sitting Height4 ft 11 in Lsuviv783 lb BMI Oylqvjwooy59.61 kg/m2 BSA Calculated1.41 Tobacco Useb) No PHQ-2 [...] Cardiovascular: carotid (more content not included)... Normal [facility] Tobacco Screening.on 022 Adult depression screening assessment No [facility] [address] DO Work Phone: Fall risk assessment a) No falls within the last year [facility] DO Work Phone: Tobacco use status CP b) No [facility] DO Work Phone: Tobacco Screening.on 021 Fall risk assessment a) No falls within the last year -[facility] DO Work Phone: Tobacco use status [facility] b) No -[facility] DO Work Phone: No Panel Informationon 09-24 [facility] [facility] [place] 450 DO Work Phone: [email or web address] [email or web address] [email or web address].aspx?={[email or web address] [id number] ACF} [facility]log[facility] ke SJW 450 DO Work [...] mcg) oral capsule 1 cap(s) orally Normal [facility] Coronavirus 2019 RNA by PCR, Screening Asymptomticon 09-21-2020 Coronavirus 2019 RNA by PCR, Screening Asymptomtic Not detected Normal See Below -[facility] 450 DO Work Phone: Comment on above: [...] make patient management decisions.Fact sheet for providers: https://www.fda.gov/media/496581/downloadFact sheet for patients: https://www.fda.gov/media/888391/downloadThis test has received FDA Emergency Use Authorization (EUA) and has been verified by [facility] ([facility]). This test is only authorized for the duration of time that circumstances exist to justify the authorization of the emergency use of in vitro diagnostic tests for the detection of SARS-CoV-2 virus and/or diagnosis of COVID-19 infection under section 564(b)(1) of the Act, 21 U.S.C. 360bbb-3(b)(1), unless the authorization is terminated or revoked sooner. [facility] is certified under CLIA-88 as qualified to perform high complexity testing. Testing is performed in the [facility] laboratories located at [address] [place] [address]. ED NOTEon 04-08-2019 ED NOTE HNO ID: [id number] Author: Maria Teresa (Rn) LINA Oliver Service: ? Author Type: Registered Nurse Type: ED Notes Filed: 04/08/2019 7:07 PM Note Text: Patient discharged per MD orders, RN at bedside to explain and review s/sx of worsening condition and to return to ED if worsening s/sx develop. Follow up care and questions answered with patient/family. [facility] ED NOTE HNO ID: [id number] Author: Lenore GarnicaRn) LINA Moyer Service: ? Author Type: Registered Nurse Type: ED Notes Filed: 04/08/2019 5:16 PM Note Text: Bed: ED-11 Expected date: Expected time: Means of arrival: Comments: [facility] ED NOTE HNO ID: [id number] Author: Maribell (Medic) Rebecca Hansen Service: ? Author Type: Assistant Coach and Field Account Manager Type: ED Notes Filed: 04/08/2019 4:59 PM Note Text: Past 2 days left ear pain. Went to urgent care and her BP was high so sent here. [facility] ED PROV NOTEon 04-08-2019 ED PROV NOTE HNO ID: [id number] Author: Elenita Castillo Service: Emergency Medicine Author Type: Physician Video Game Animator Type: ED Provider Notes Filed: 04/09/2019 3:31 [...] the extremities. History provided by: Patient medical biller coder used: No PAST MEDICAL HISTORY Diagnosis Date - Asthma - CAD (coronary artery disease) - Chronic cough due to asthma - Dyslipidemia - GERD (gastroesophageal reflux disease) - Hypertension - [place], old - MRSA infection - Myocarditis (HCC) PAST SURGICAL HISTORY Procedure Laterality Date - BACK SURGERY HX - CHOLECYSTECTOMY - COLONOSCOPY 2014 -was told she does not need anothe one-done in [place] - EGD 08/17/2018 /Normal - VALENTIN W/WO [...] or wounds Nose: Nose normal. Mouth/Throat: Lips: [place]. Mouth: Mucous membranes are moist. Pharynx: Oropharynx [...] SIGNATURE: STEVIE Solano Pa-C 04/09/19 1531 Normal [facility] Vital Signs Date Time Vital Sign Value Performing Clinician Facility 02-11-2023 09:05-0500 Body height 152.4 cm Eliecer Gray Other [facility] Other 02-11-2023 09:05-0500 Body mass index (BMI) [Ratio] 20.5 kg/m2 Eliecer Gary Other [facility] Other 02-11-2023 09:05-0500 Body temperature 97.7 [degF] Eliecer Gray Other [facility] Other 02-11-2023 09:05-0500 Body weight 47.63 kg Eliecer Gray Other [facility] Other 02-11-2023 09:05-0500 Diastolic blood pressure 93 mm[Hg] Eliecer Gray Other [facility] Other 02-11-2023 09:05-0500 Respiratory rate 18 /min Eliecer Gray Other [facility] Other 02-11-2023 09:05-0500 SaO2% (BldA) [Mass fraction] 97 % Eliecer Gray Other [facility] Other 02-11-2023 09:05-0500 Systolic blood pressure 166 mm[Hg] Eliecer Gray Other [facility] Other 02-02-2023 11:06-0400 Body height 142.2 cm Nick Wasserman MD Work Phone: [facility] 02-02-2023 11:06-0400 Body mass index (BMI) [Ratio] 24.21 kg/m2 Nick Wasserman MD Work Phone: [facility] 02-02-2023 11:06-0400 Body weight 48.99 kg Nick Wasserman MD Work Phone: [facility] 02-02-2023 11:06-0400 Diastolic blood pressure 58 mm[Hg] Nick Wasserman MD Work Phone: [facility] 02-02-2023 11:06-0400 Heart rate 60 /min Nick Wasserman MD Work Phone: [facility] 02-02-2023 11:06-0400 Systolic blood pressure 138 mm[Hg] Nick Wasserman MD Work Phone: [facility] 08-30-2022 10:55-0400 Body height 152.4 cm Luis Nolasco Other [facility] Other 08-30-2022 10:55-0400 Body mass index (BMI) [Ratio] 20.7 kg/m2 Luis Nolasco Other [facility] Other 08-30-2022 10:55-0400 Body temperature 97.8 [degF] Luis Nolasco Other [facility] Other 08-30-2022 10:55-0400 Body weight 48.08 kg Luis Nolasco Other [facility] Other 08-30-2022 10:55-0400 Diastolic blood pressure 70 mm[Hg] Luis Nolasco Other [facility] Other 08-30-2022 10:55-0400 Respiratory rate 18 /min Luis Nolasco Other [facility] Other 08-30-2022 10:55-0400 SaO2% (BldA) [Mass fraction] 97 % Luis Nolasco Other [facility] [employer] Other 08-30-2022 10:55-0400 Systolic blood pressure 123 mm[Hg] Luis Gaurav Other [facility] [employer] Other 03-06-2022 15:48-0500 Diastolic blood pressure 72 mm[Hg] Adriana D [place] Work Phone: [facility] 250 DO Work Phone: 03-06-2022 15:48-0500 Systolic blood pressure 136 mm[Hg] Adriana D [place] Work Phone: [facility] 250 DO Work Phone: 03-06-2022 15:25-0500 Body height 144.78 cm Adriana D [place] Work Phone: [facility] 250 DO Work Phone: 03-06-2022 15:25-0500 Body mass index (BMI) [Ratio] 23.37 kg/m2 Adriana D [place] Work Phone: [facility] 250 DO Work Phone: 03-06-2022 15:25-0500 Body surface area Derived from formula 1.38 m2 Adriana D [place] Work Phone: [facility] 250 DO Work Phone: 03-06-2022 15:25-0500 Body weight 48.99 kg Adriana D [place] Work Phone: [facility] 250 DO Work Phone: 03-06-2022 15:25-0500 Diastolic blood pressure 64 mm[Hg] Adriana D [place] Work Phone: [facility] DO Work Phone: 03-06-2022 15:25-0500 Heart rate 66 /min Adriana D [place] Work Phone: [facility] DO Work Phone: 03-06-2022 15:25-0500 Systolic blood pressure 154 mm[Hg] Adriana D [place] Work Phone: [facility] DO Work Phone: 01-17-2022 10:25-0400 Diastolic blood pressure 81 mm[Hg] Govea SALAM [facility] 01-17-2022 10:25-0400 Heart rate 55 /min Govea SALAM [facility] 01-17-2022 10:25-0400 Respiratory rate 14 /min Govea SALAM [facility] 01-17-2022 10:25-0400 SaO2% (BldA) [Mass fraction] 98 % Govea SALAM [facility] 01-17-2022 10:25-0400 Systolic blood pressure 158 mm[Hg] Govea SALAM [facility] 01-17-2022 10:10-0400 Diastolic blood pressure 64 mm[Hg] Govea SALAM [facility] 01-17-2022 10:10-0400 Heart rate 56 /min Govea SALAM [facility] 01-17-2022 10:10-0400 Respiratory rate 14 /min Govea SALAM [facility] 01-17-2022 10:10-0400 SaO2% (BldA) [Mass fraction] 100 % Govea SALAM [facility] 01-17-2022 10:10-0400 Systolic blood pressure 141 mm[Hg] Govea SALAM [facility] 01-17-2022 10:05-0400 Diastolic blood pressure 60 mm[Hg] Govea SALAM [facility] 01-17-2022 10:05-0400 Heart rate 57 /min Govea SALAM [facility] 01-17-2022 10:05-0400 Respiratory rate 14 /min Govea SALAM [facility] 01-17-2022 10:05-0400 SaO2% (BldA) [Mass fraction] 98 % Govea SALAM [facility] 01-17-2022 10:05-0400 Systolic blood pressure 131 mm[Hg] Govea SALAM [facility] 01-17-2022 09:56-0400 Body temperature 96.98 [degF] Govea SALAM [facility] 01-17-2022 07:50-0400 Blood Pressure Location Govea SALAM [facility] 01-17-2022 07:50-0400 Body temperature 98.06 [degF] Govea SALAM [facility] 01-10-2022 10:48-0400 Diastolic blood pressure 64 mm[Hg] Shimerly DonaldsonSundeep [facility] 01-10-2022 10:48-0400 Mean blood pressure 95 mm[Hg] Shimerly DonaldsonSundeep [facility] 01-10-2022 10:48-0400 Systolic blood pressure 158 mm[Hg] Shimerly Urbano [facility] 01-10-2022 10:44-0400 Blood Pressure Location Shi Urbano [facility] 01-10-2022 10:44-0400 Body temperature 97.34 [degF] Shi Urbano [facility] 01-10-2022 10:44-0400 Diastolic blood pressure 73 mm[Hg] Shi [facility] [facility] 01-10-2022 10:44-0400 Heart rate 51 /min Shi Urbano [facility] 01-10-2022 10:44-0400 Systolic blood pressure 167 mm[Hg] Shi Urbano [facility] 11-13-2021 00:00-0400 Diastolic blood pressure 68 mm[Hg] DO Adriana Tirado-Keweenaw Work Phone: [facility] 11-13-2021 00:00-0400 Heart rate 62 /min DO Adriana Tirado-Keweenaw Work Phone: [facility] 11-13-2021 00:00-0400 Respiratory rate 18 /min DO Adraina Tirado-Ke[place]aw Work Phone: [facility] 11-13-2021 00:00-0400 SaO2% (BldA) [Mass fraction] 100 % DO Adriana Tirado-[place]aw Work Phone: [facility] 11-13-2021 00:00-0400 Systolic blood pressure 133 mm[Hg] DO Adriana Tirado-Keweenaw Work Phone: [facility] 11-12-2021 18:52-0400 Body height 144.78 cm DO Adriana Tirado-[place]aw Work Phone: [facility] 11-12-2021 18:52-0400 Body temperature 98.1 [degF] DO Adriana Tirado-[place]aw Work Phone: [facility] 11-12-2021 18:52-0400 Body weight 45.35 kg DO Adriana Tirado-[place]aw Work Phone: [facility] 08-29-2021 10:00-0400 Body height 152.4 cm Clement [place] II Other [employer] Other 08-29-2021 10:00-0400 Body mass index (BMI) [Ratio] 20.5 kg/m2 Clement [place] II Other [employer] Other 08-29-2021 10:00-0400 Body weight 47.63 kg Clement [employer] II Other [employer] Other 08-28-2021 00:00-0400 65 1 Adriana D Tirado-[place] Work Phone: [facility] 250 DO Work Phone: Comment on above: [id number] 08-25-2021 12:25-0400 Body height 152.4 cm Eliecer Isaac Other [employer] Other 08-25-2021 12:25-0400 Body mass index (BMI) [Ratio] 20.5 kg/m2 Eliecer Isaac Other [employer] Other 08-25-2021 12:25-0400 Body temperature 97 [degF] Eliecer Isaac Other [employer] Other 08-25-2021 12:25-0400 Body weight 47.63 kg Eliecer Isaac Other [employer] Other 08-25-2021 12:25-0400 Diastolic blood pressure 67 mm[Hg] Eliecer Gray Other [employer] Other 08-25-2021 12:25-0400 Respiratory rate 16 /min Eliecer Gray Other [employer] Other 08-25-2021 12:25-0400 SaO2% (BldA) [Mass fraction] 96 % Eliecer Gray Other [employer] Other 08-25-2021 12:25-0400 Systolic blood pressure 141 mm[Hg] Eliecer Gray Other [employer] Other 06-07-2021 15:06-0500 Body height 149.86 cm Adriana Katherine Tirado-[place] Work Phone: [facility] [place] 250 DO Work Phone: 06-07-2021 15:06-0500 Body mass index (BMI) [Ratio] 21.61 kg/m2 Adriana D [place]ado-[place] Work Phone: [facility] [place] 250 DO Work Phone: 06-07-2021 15:06-0500 Body surface area Derived from formula 1.41 m2 Adriana D [place] Work Phone: [facility] [place] 250 DO Work Phone: 06-07-2021 15:06-0500 Body weight 48.54 kg Adriana D [place] Work Phone: [facility] 250 DO Work Phone: 06-07-2021 15:06-0500 Diastolic blood pressure 62 mm[Hg] Adriana D [place] Work Phone: [facility] 250 DO Work Phone: 06-07-2021 15:06-0500 Heart rate 60 /min Adriana Katherine [place] Work Phone: [facility] 250 DO Work Phone: 06-07-2021 15:06-0500 Systolic blood pressure 125 mm[Hg] Adriana Katherine [place] Work Phone: [facility] 250 DO Work Phone: 03-05-2021 10:47-0500 Body height 149.86 cm Adriana Katherine [place] Work Phone: [facility] 250 DO Work Phone: 03-05-2021 10:47-0500 Body mass index (BMI) [Ratio] 22.02 kg/m2 Adriana Katherine [place] Work Phone: [facility] 250 DO Work Phone: 03-05-2021 10:47-0500 Body surface area Derived from formula 1.42 m2 Adriana Katherine [place] Work Phone: [facility] 250 DO Work Phone: 03-05-2021 10:47-0500 Body weight 49.44 kg Adriana Katherine [place] Work Phone: [facility] 250 DO Work Phone: 03-05-2021 10:47-0500 Diastolic blood pressure 66 mm[Hg] Adriana Katherine [place] Work Phone: [facility] 250 DO Work Phone: 03-05-2021 10:47-0500 Heart rate 59 /min Adriana D [place] Work Phone: [facility] 250 DO Work Phone: 03-05-2021 10:47-0500 Systolic blood pressure 127 mm[Hg] Adriana D [place]ado[place] Work Phone: [facility] 250 DO Work Phone: Encounters Encounter Date Encounter Type Care Provider Facility Start: 04-16-2023 End: 04-17-2023 ambulatory ADRIANA D TIRADO-EMERY Not Available Start: 04-10-2023 End: 04-11-2023 ambulatory ADRIANA D TIRADO-EMERY Not Available Start: 03-04-2023 End: 03-04-2023 ambulatory SHREYA Katherine DOLCE Not Available Start: 02-18-2023 End: 02-18-2023 ambulatory ADRIANA D TIRADO-EMERY Not Available Start: 02-11-2023 Office outpatient vi sit 15 minutes Eliecer Gray [facility] Start: 02-11-2023 End: 02-11-2023 ambulatory Eliecer Gray Facility:[facility] Start: 02-11-2023 End: 02-11-2023 ambulatory DO Adriana Tirado-Keweenaw Work Phone: [facility] Work Phone: Start: 02-11-2023 End: 02-11-2023 Departed Referred DO Adriana Tirado-[place]aw Work Phone: [facility] 250 Start: 02-02-2023 End: 02-02-2023 ambulatory Adriana Tirado-Keweenaw Facility:[facility] Start: 02-02-2023 End: 02-02-2023 ambulatory DO Adriana Tirado-[place]aw Work Phone: [facility] Work Phone: Start: 02-02-2023 End: 02-02-2023 Patient encounter procedure DO Adriana Tirado-[place]aw Work Phone: [facility] [place] Work Phone: Start: 02-02-2023 End: 02-02-2023 Office outpatient visit 25 minutes Nick Wasserman MD Work Phone: [facility] Comment on above: Coronary artery dise ase involving [place] coronary artery of [place] heart without angina pectoris (Primary Dx); Essential hypertension, benign; Mixed hyperlipidemia; Nonischemic cardiomyopathy (CMS/HCC) Start: 12-18-2022 End: 12-18-2022 ambulatory Savanna Cassidy Other [employer] Other Start: 12-18-2022 Office outpatient vi sit 15 minutes Savanna Cassidy [facility] Start: 08-30-2022 End: 08-30-2022 ambulatory Luis Nolasco Other [employer] Other Start: 08-30-2022 Office outpatient vi sit 15 minutes Luis Nolasco [facility] Start: 05-14-2022 Chart Update Adriana Tirado-[place]aw Work Phone: [facility] 250 DO Work Phone: Start: 03-06-2022 Office outpatient vi sit 15 minutes Adriana Changaver-Keweenaw Work Phone: [facility] 250 DO Work Phone: Start: 03-06-2022 ambulatory Nick Wasserman II Facility: Start: 03-03-2022 End: 03-04-2022 ambulatory Jay Power Facility: [place] Start: 02-25-2022 ambulatory Adriana Cruz Facility: Start: 02-24-2022 End: 02-25-2022 ambulatory Jay Power Facility:[facility] Start: 02-19-2022 End: 02-19-2022 ambulatory Jay Power Facility:[facility] Start: 02-04-2022 ambulatory Adriana Tirado-Iván Facility: Start: 02-04-2022 End: 02-05-2022 ambulatory Jay Power Facility:[facility] Start: 02-03-2022 End: 02-04-2022 ambulatory Jay Power Facility: [place] Start: 01-17-2022 End: 01-18-2022 ambulatory Jeferson COPE Facility:[facility] Start: 01-17-2022 End: 01-17-2022 Patient encounter procedure Jeferson COPE [facility] Start: 01-13-2022 End: 01-14-2022 ambulatory Shimerly Urbano Facility:[facility] Start: 01-10-2022 End: 01-11-2022 ambulatory Shi Carmela Sundeep Facility:[facility] Start: 01-10-2022 End: 01-11-2022 ambulatory [facility]deep [facility] Start: 01-10-2022 Rx Renewal Adriana Tirado-[place]aw Work Phone: [facility] 250 DO Work Phone: Start: 01-10-2022 End: 01-10-2022 Patient encounter procedure Shi Urbano [facility] Start: 12-24-2021 ambulatory Adriana Cruz Facility:[id number] Start: 11-14-2021 ambulatory Shi Carmela Sundeep Facili ty:[place] Start: 11-12-2021 End: 11-13-2021 Emergency department patient visit DO Ardiana Tirado-Iván Work Phone: [facility] Start: 08-30-2021 Chart Update Adriana Tirado-[place]aw Work Phone: [facility] 250 DO Work Phone: Start: 08-29-2021 End: 08-29-2021 ambulatory Clement Madrid II Other [employer] Other Start: 08-29-2021 Office outpatient ne w 45 minutes Clement Madrid II [facility] Start: 08-28-2021 ambulatory Adriana Tirado-Iván Facility:[id number] Start: 08-25-2021 End: 08-25-2021 ambulatory Eliecer Gray Other [facility] [employer] Other Start: 08-25-2021 Office outpatient vi sit 15 minutes Eliecer Gray [facility] [address] Start: 08-08-2021 Patient encounter procedure Adriana Murphy Tirado-[place] Work Phone: [facility] 600 DO Work Phone: Start: 06-07-2021 Office outpatient vi sit 25 minutes Adriana Murphy [place] Work Phone: [facility] 250 DO Work Phone: Start: 06-07-2021 ambulatory Adriana Tir[place] Facility:[id number] Start: 03-05-2021 Office outpatient vi sit 25 minutes Adriana Murphy [place] Work Phone: [facility] 250 DO Work Phone: Start: 09-28-2020 Chart Update Adriana Murphy [place] Work Phone: [facility] 450 DO Work Phone: Start: 09-24-2020 EUSANS, Provider: Vilma Salazar, Status: Pen, Time: 9:20 AM Adriana Murphy [place] Work Phone: TZ-Nuucrbliggmftsic-U[facility] [place] [facility] 450 DO Work Phone: Start: 09-23-2020 Chart Update Adriana Murphy [place] Work Phone: QP-Ikjbahewfdhfpkll-Zw [place] [facility] 450 DO Work Phone: Procedures Date Procedure Procedure Detail Performing Clinician Start: 01-17-2022 Colonoscopy Jeferson COPE Comment on above: biopsies, diverticulosis Start: 11-12-2021 Computed tomography of abdomen and pelvis with contrast DO Adriana Cruz Work Phone: Start: 07-06-2020 Esophagogastroduodenoscopy Shi diana Comment on above: Dr Brannon Arthroplasty of knee Adriana Tirado-[place] Work Phone: Cholecystectomy Adriana D Tirado-[place] Work Phone: Colonoscopy Shi Urbano Comment on above: 2010 Esophagogastroduodenoscopy M taylor WILLIAN Comment on above: normal, gastric biopsies Hysterectomy Adriana Tirado-[place] Work Phone: Operation on bladder Adriana Tirado-[place] Work Phone: Procedure on back Adriana Tirado-Iván Work Phone: SARS Antigen (LFIA) DO Maximus Tirado-Iván Work Phone: Total colonoscopy Adriana Tirado-Iván Work Phone: Urine culture DO Adriana Cruz Work Phone: Plan of Treatment Date Care Activity Detail Author Start: 09-15-2023 End: 09-15-2023 Patient encounter procedure 09/15/2023 9:30 AM EDT Office Visit [facility] [address] [facility] [address] [place] [id number] Nick Wasserman MD [address] [facility] [address] [place] [address] [facility] Start: 02-11-2023 Bacteria identified in Urine by Culture [facility] Start: 02-02-2023 End: 02-03-2024 Basic metabolic 2000 panel - Serum or Plasma Basic Metabolic Panel Lab Routine Nonischemic cardiomyopathy (CMS/HCC) Expected: 02/02/2023 (Approximate), Expires: 02/03/2024 [facility] Service Area Work Phone: Comment on above: Expected: 02/02/2023 (Approximate), Expires: 02/03/2024 Start: 02-02-2023 End: 02-03-2024 CBC panel - Blood by Automated count CBC Lab Routine Nonischemic cardiomyopathy (CMS/HCC) Expected: 02/02/2023 (Approximate), Expires: 02/03/2024 [facility] Work Phone: Comment on above: Expected: 02/02/2023 (Approximate), Expires: 02/03/2024 Start: 02-02-2023 End: 02-03-2024 Lipid 1996 panel - Serum or Plasma Lipid Panel Lab Routine Mixed hyperlipidemia Expected: 02/02/2023 (Approximate), Expires: 02/03/2024 [facility] Work Phone: Comment on above: Expected: 02/02/2023 (Approximate), Expires: 02/03/2024 Start: 10-28-2022 FUV, Provider: Nick Wasserman, Status: Pen, Time: 9:40 AM FUV, Provider: Nick Wasserman, Status: Pen, Time: 9:40 AM [facility] 250 DO Work Phone: Start: 03-06-2022 FUV, Provider: Nick Wasserman, Status: Pen, Time: 3:10 PM FUV, Provider: Nick Wasserman, Status: Pen, Time: 3:10 PM [facility] 250 DO Work Phone: Start: 02-25-2022 COVID-19 Vaccine (4 - Moderna series) COVID-19 Vaccine (4 - Moderna series) [facility] Start: 12-24-2021 FUV, Provider: Nick Wasserman, Status: Pen, Time: 11:20 AM FUV, Provider: Nick Wasserman, Status: Pen, Time: 11:20 AM [facility] Work Phone: Start: 08-28-2021 STRESS NUC, Provider : MARI HHVI NUCLEAR 01,[id number], Status: Pen, Time: 12:00 PM STRESS NUC, Provider: MARI HHVI NUCLEAR 01,[id number], Status: Pen, Time: 12:00 PM [facility] 600 DO Work Phone: Start: 06-07-2021 FUV, Provider: Nick Wasserman, Status: Pen, Time: 3:10 PM FUV, Provider: Nick Wasserman, Status: Pen, Time: 3:10 PM [facility] Work Phone: Start: 11-23-2020 VIRNPVFELICIANOE, Provider : Estefanía Iyer, Status: Pen, Time: 9:30 AM VIRNPVFELICIANOE, Provider: Estefanía Iyer, Status: Pen, Time: 9:30 AM -[facility]- [place] 450 DO Work Phone: Start: 1964 DTaP/Tdap/Td Vaccine s (1 - Tdap) DTaP/Tdap/Td Vaccines (1 - Tdap) [facility] Start: 1940 Lipid panel Lipid Panel [facility] Start: 1940 Medicare Annual Wellness Visit Medicare Annual Wellness Visit (AWV) [facility] Start: 1940 Screening for osteoporosis Bone Density Scan [facility] Patient Education Dehydration, Adult (DC) [facility] Work Phone: Patient referral [facility] Work Phone: Immunizations Immunization Date Immunization Notes Care Provider Sheryl luevano 01-16-2023 Influenza, Seasonal, Quadrivalent, Adjuvanted Nick Wasserman MD Work Phone: [facility] 01-11-2022 Fluzone High-Dose Quadrivalent 0.7 ML Intramuscular Suspension Prefilled Syringe Adriana Cruz Work Phone: [facility] 250 DO Work Phone: 12-31-2021 Pfizer COVID-19 Vac Bivalent 30 MCG/0.3ML Intramuscular Suspension Adriana Murphy [place]ado[place] Work Phone: [facility] 250 DO Work Phone: 10-18-2021 Prevnar 20 0.5 ML Intramuscular Suspension Prefilled Syringe Adriana D [place] Work Phone: [facility] 250 DO Work Phone: 04-03-2021 Moderna COVID-19 Vaccine 100 MCG/0.5ML Intramuscular Suspension Adriana D [place] [facility] Work Phone: 02-26-2021 influenza, high dose seasonal, preservative-free Adriana D [place] [facility] DO Work Phone: 05-30-2020 Moderna COVID-19 Vaccine 100 MCG/0.5ML Intramuscular Suspension Adriana Murphy [place] Work Phone: [facility] Comment on above: Reason for Medicatio n: Other (see comment) 05-07-2020 Moderna SARS-CoV-2 Vaccination Nick Wasserman MD Work Phone: [facility] Work Phone: 05-02-2020 Moderna COVID-19 Vaccine 100 MCG/0.5ML Intramuscular Suspension Adriana D [place] Work Phone: [facility] Comment on above: Reason for Medicatio n: Other (see comment) 04-02-2020 zoster vaccine recombinant Adriana D Tirado-[place] Work Phone: [facility] 250 DO Work Phone: 02-01-2020 zoster vaccine recombinant Adriana D Tiraod-Keweenaw Work Phone: [facility] 12-30-2019 Fluzone High-Dose Quadrivalent 0.7 ML Intramuscular Suspension Prefilled Syringe Adriana Cruz Work Phone: [facility] 01-04-2019 influenza, high dose seasonal, preservative-free Adriana Cruz Work Phone: [facility] 12-18-2017 influenza, high dose seasonal, preservative-free Adriana Katherine Luis A Work Phone: [facility] NEGATED: Highlighted row has not occurred!01-10-2022 influenza virus vaccine, unspecified formulation Shi Urbano [facility] Payers Date Payer Category Payer Self-pay [id number] 2022 Medicare HUMANA MEDICARE HUMANA GOLD CHOICE [id number] 2022-Present [address] [address] [place] [address] [id number] 2020 Private Health Insurance [id number] [id number] 2019 Unknown 2019 Unknown [id number] 2.16.840.1.924894.19 1942 Unknown [id number] 2.16.840.1.732502.3.579.2 .72 1942 Unknown [id number] 2.16.840.1.746260.3.579.2 .72 1942 Unknown [id number] 2.16.840.1.448884.3.579.2 .72 1942 Unknown [id number] 2.16.840.1.507373.3.579.2 .727 1942 Unknown [id number] 2.16.840.1.117261.3.579.2 1942 Unknown [id number] 2.16.840.1.974463.3.579.2 .727 1942 Unknown [id number] 2.16.840.1.349718.3.579.2 .727 1942 Unknown [id number] 2.16.840.1.172111.3.579.2 .727 1942 Unknown [id number] 2.16.840.1.399046.3.579.2 .727 1942 Unknown [id number] 2.16.840.1.378287.3.579.2 .727 1942 Unknown [id number] 2.16.840.1.449987.3.579.2 .356 1942 Unknown [id number] 2.16.840.1.687302.3.579.2 .356 1942 Unknown [id number] 2.16.840.1.515107.3.579.2 .356 1942 Unknown [id number] 2.16.840.1.923946.3.579.2 .356 1942 Unknown [id number] 2.16.840.1.021015.3.579.2 .356 1942 Unknown [id number] 2.16.840.1.614384.3.579.2 .356 1942 Unknown [id number] 2.16.840.1.914455.3.579.2 .1244 1942 Unknown [id number] 2.16.840.1.623536.3.579.2 .1259 1942 Unknown [id number] 2.16.840.1.200868.3.579.2 .1259 1942 Unknown [id number] 2.16.840.1.991506.3.579.2 .1259 1942 Unknown [id number] 2.16.840.1.602826.3.579.2 .1259 1942 Unknown [id number] 2.16.840.1.523855.3.579.2 .1259 Medicare [id number] Medicare Medicare [id number] Unknown [id number] 2.16.840.1.362382.3.579.2 .531 Unknown [id number] 2.16.840.1.922265.3.579.2 .531 Social History Date Type Detail Facility Start: 02-02-2023 Daily caffeine consumption Daily caffeine consumption -[facility] 250 DO Work Phone: Comment on above: tea and a dr. dunbar ; Start: 02-02-2023 Sex Assigned At N [facility] [employer] Other Start: 11-12-2021 End: 11-12-2021 Tobacco smoking status NHIS Never smoked tobacco (finding) [facility] Start: 1940 Sex Assigned At Female [facility] Tobacco smoking status Never [facility] Start: 02-02-2023 Tobacco use and exposure Smokeless tobacco non-user [facility] Work Phone: Start: 02-02-2023 Alcohol intake Lifetime non-d arcelia (finding) [facility] Work Phone: Start: 1940 Sex Assigned At Not on file U [facility] Work Phone: Start: 01-23-2023 End: 02-02-2023 Exposure to SARS-CoV-2 (event) Not sure [facility] Functional Status Date Assessment Result Facility 01-17-2022 Functional Status N/A [facility] 01-10-2022 Functional Status N/A [facility] Clinical Notes 08-25-2021 to 04-16-2023 Note Date & Type Note Facility 04-16-2023 Note CLINICAL HISTORY: axel ne density evaluation COMPARISON: NONE. FINDINGS: Bone density measurements for the left femoral neck are BMD 0.525 g/cm2 Tscore -2.9 age-matched Z score -0.6 Osteoporosis Bone density measurements for the right femoral neck are BMD 0.543 g/cm2 Tscore -2.8 age-matched Z score -0.4 Osteoporosis Bone density measurements for the lumbar spine (L1-L4) are BMD 0.424 g/cm2 Tscore -2.9 age-matched Z score 0.2 Osteopenia FRAX SCORE: 10 year fracture risk Not calculated due to T score less than -2.5 IMPRESSION: The bone density may measurements for the femoral necks indicate OSTEOPOROSIS. This places the patient at a significant increased risk for fracture. Recommend follow-up exam in one year, sooner as clinically necessary. Note World Health Organization definition of osteoporosis and osteopenia for women: Normal = T score at or above -1.0 SD Osteopenia = T score between -1.0 and -2.5 SD Osteoporosis = T score at or below -2.5 SD Pharmacologic treatment recommendations per the Bone Health and Osteoporosis Foundation, (BHOF): * Initiate pharmacologic treatment: * In those with hip or vertebral (clinical or asymptomatic) fractures * In those with T-scores ??2.5 at the femoral neck, total hip, or lumbar spine by DXA * In postmenopausal women and men age 50 and older with low bone mass (T-score between ?1.0 and ?2.5, osteopenia) at the femoral neck, total hip, or lumbar spine by DXA and a 10-year hip fracture probability ?3 % or a 10-year major osteoporosis-related fracture probability ?20 % based on the [place]-adapted WHO absolute fracture risk model (Fracture Risk Algorithm (FRAX?); www.NOF.org and www.shef.ac.uk/FRAX) ELECTRONICALLY SIGNED BY: Serg Araiza MD Not Available 02-11-2023 Evaluation note Encounter Date Diagnosis Assessment [...] She understands and agrees with the plan. [employer] Other 10-30-2023 History of Present illness Narrative* [...] Rfl: Assessment/Plan 1. Coronary artery disease involving [place] coronary artery of [place] heart without angina pectoris Stable, I doubt progression based upon her symptoms (and lack thereof). 2. Essential hypertension, benign Well-controlled on current therapy 3. Mixed hyperlipidemia Well-controlled on current therapy 4. Nonischemic cardiomyopathy (CMS/HCC) No manifestations of heart failure detectable today. [facility] Work Phone: 1(617) 696-235710-30-2023 Instructions* Patient Instructions* Dante Jacob MA - [...] time of your visit. [facility] Work Phone: 1(633) 835-782009-14-2023 Evaluation note* Encounter Date Diagnosis Assessment Notes Treatment Notes Treatment Clinical Notes Dec, Arthritis of left knee (ICD-10 - M17.12) Patient was prepped and coritone was injected into the left knee under sterile conditions. Patient tolerated well with no adverse reactions. Activity as tolerate. [facility] [employer] Other 05-27-2023 Evaluation note* Encounter Date Diagnosis [...] Pt understood and agreed to treatment plan. [facility] [employer] Other 12-06-2022 NoteAdmission and Discharge Information Admitting Physician - MELI ERIC, J Carlos Consulting Physician - Jannet ERIC, Jay Ayala MD, [facility] Admitting Diagnoses: Discharge Diagnoses 1. Abdominal pain, [...] levels flattened. Cardiology consultation was placed at [facility] cardiology group Dr. Wasserman who patient typically [...] 73.9 % Lymph Auto - 12.3 % [place] Auto - 7.4 % Eos Auto - 3.6 % Basophil Auto - 2.8 % Neutro Absolute - 6.2 E9/L Lymph Absolute - 1.0 E9/L [place] Absolute - 0.6 E9/L Eos Absolute - [...] Est - 1+ U (more content not included)...[facility] Result Comment: Electronically Signed By: Yolanda SALAS\.br\Date and Time Signed: 03/10/22 20:44 EST\.br\Electronically Co-Signed By: Pantera QUICK MD\.br\Date and Time Co-Signed: 03/11/2210:53 [id number] NoteMicrobiology PROCEDURE: Blood Culture Charcoal [R1] SOURCE: Blood BODY SITE: Arm R COLLECTED DATE/TIME: 02/24/2022 13:54 EST RECEIVED DATE/TIME: 02/24/2022 14:07 EST START DATE/TIME: 02/24/2022 14:07 EST FREE TEXT SOURCE: Jay Emery DO, DO, John FINAL REPORTS Final Report [] Verified Date/Time: 03/03/2022 18:00 EST No growth at 7 days. Performing Locations R1: This test was performed at: [facility], [address] [place] [address], [id number] [place] [address], [address] [place], [place] [address]Comment on above:Performed By: #### [id number] #### [facility] [address] [place] [address] [id number] NoteMicrobiology PROCEDURE: Blood Culture Charcoal [R1] SOURCE: Blood BODY SITE: Arm L COLLECTED DATE/TIME: 02/24/2022 13:44 EST RECEIVED DATE/TIME: 02/24/2022 14:08 EST START DATE/TIME: 02/24/2022 14:08 EST FREE TEXT SOURCE: AVERY Emery DO, Jay Emery DO, Jay FINAL REPORTS Final Report [] Verified Date/Time: 03/03/2022 18:00 EST No growth at 7 days. Performing Locations R1: This test was performed at: [facility], [address] [place] [address], [id number] [place] [address], [address] [place], [place] [address]Comment on above:Performed By: #### [id number] ####[facility] [address] [place], [place] [id number] NoteHOSPITAL REGULATIONS: All Positive and Important Negative [...] a surgery isunclear to me. ALLERGIES:Percocet, Darvocet, [place]lin, Oxycodone. PSYCHOSOCIAL HISTORY:Nonsmoker, nondrinker. FAMILY HISTORY:Diabetes, heart disease, lung cancer. REVIEW OF SYSTEMS:Otherwise negative, normal and noncontributory. PHYSICAL EXAMINATION: Vital signs: An ill appearing female. She is uncomfortable and moves slowly. Her blood pressure pzw763/66, pulse 64, respirations 16, temperature 36.8, weight [...] the patient's acute hospitalization. Jaime Wasserman M.D. lr Dictated: 02/26/2022 [id number] Transcribed: 02/26/2022 cc:Adriana Cruz D.O.[facility] HospitalComment on above: Result Comment: Electronically Signed By: Lisy ERIC, Nick Cheema\.basia\Date and Time Signed: 02/27/22 14:23 [id number] NotePT Evaluation done this date. Pt. with on AM-PAC this date. She is safe and independent with all functional activities with no further PT needs.[facility]11-22-2022 Note Chief Complaint Had hernia repair [...] Lymph Auto: 12.3 % Low (02/24/22 13:54:00) [place] Auto: 7.4 % (02/24/22 13:54:00) Eos Auto: 3.6 % (02/24/22 13:54:00) Basophil Auto: 2.8 % High (02/24/22 13:54:00) Neutro Absolute: 6.2 E9/L (02/24/22 13:54:00) Lymph Absolute: 1 E9/L (02/24/22 13:54:00) [place] Absolute: 0.6 E9/L (02/24/22 13:54:00) Eos Absolute: [...] (02/24/22 14:55:00) UA C (more content not included)...[facility] HospitalComment on above: Result Comment: Electronically Signed By: Yolanda SALAS\.br\Date and Time Signed: 02/24/22 21:25 EST\.br\Electronically Co-Signed By: Yolanda SALSA\.br\Date and Time Co-Signed: 02/24/22 21:27 EST\.br\Electronically Co-Signed By: J Carlos KEN MD\.br\Date and Time Co-Signed: 02/25/22 07:18 [id number] Notegeneral surgery interval progress note: S.81 y/o [...] the patient and her daughter, including recoveryand painThe [facility] Comment on above:Result Comment: Electronically Signed By: Jay Power MD\.br\Date and Time Signed: 02/24/22 14:56 [id number] NoteHistory and Physical Update H&P Reviewed. Patient [...] mg= 1 mL, IV Push, q5min, PRN Oberlin 325 mg-5 mg oral tablet, 1 tab(s), [...] disease: Father. Primary malignant neoplasm of lung: Sister.[facility]11-02-2022 [id number]:127[facility]10-17-2022 [id number]:127[facility]10-14-2022 Evaluation + Plan noteExtracted from: Title:ANES POSTOP Author:Eliecer Pennington DO Date: 01/17/22 Plan Transfer/ Discharge: Patient can be discharged from PACU when criteria met. Condition good. Extracted from: Title:ANES PREOP ENDO NOTE Author:Waylon Pennington DO Date:01/17/22 Plan [place] [employer]hesi[employer] (ASA) physical status classification: [...] Date:02/03/2022 10:20:00 AM Scheduled Provider:Jay Power MD Location:[facility] Appointment Type:[address]10-14-2022 Hospital Discharge instructions Patient Education 01/17/2022 [...] what activities are safe for you. Take mfxu-vzj-jszwlpw and prescription medicines only as told by [...] 09/21/2012 Document Revised: 09/14/2018 Document Reviewed: 08/23/2018 [employer] Patient Education 2020 [employer]. 01/17/2022 10:08:02 Colonoscopy, Care After Surgery Salam [...] unsweetened, w/added ascorbic acid 1 cup 0.5 [place] 1 cup 0.7 Vegetables Cooked Green beans 1 cup 4.0 Carrots 1/2 cup sliced 2.3 Peas 1 cup 8.8 Potato (baked, with skin) 1 medium potato 3.8 Raw [place] (with peel) 1 cucumber 1.5 Lettuce 1 [...] 8.7 Peanuts 1/2 cup 7.9 Chart from [facility] 2013. SEEK IMMEDIATE MEDICAL CARE IF: You [...] Information adapted from: ExitCare Patient Information 2009 Sure Chill. [place] 2012 [email or web address] Follow Up Care 01/10/2022 12:34:05 With:Jeferson COPE Address: [facility] [address] [place] [address] Business (1) When: Unknown Comments:office will call for follow up [facility]10-07-2022 Hospital Discharge instructions Patient Education 01/10/2022 11:39:30 [...] find a support group online or in yourlocal community. General instructions Take kjxi-hgw-bdxrbna and prescription medicines only as told by [...] International Foundation for Functional Gastrointestinal Disorders: iffgd.org [place] [employer]: patients.gi.org Contact a health [...] restrictions, lifestyle changes, and skin care. Take vfnm-wow-syaioyu and prescription medicines only as told by [...] 03/04/2005 Document Revised: 08/05/2018 Document Reviewed: 08/05/2018 [employer] Patient Education 2020 [employer]. 01/10/2022 10:49:37 Colonoscopy, Adult Colonoscopy, Adult A [...] including vitamins, herbs, eye drops, creams, and ikxd-zud-fnaknzx medicines. Any problems you or family members [...] 03/20/2001 Document Revised: 01/13/2018 Document Reviewed: 06/03/2016 [employer] Patient Education 2020 [employer]. Follow Up Care 11/13/2021 10:56:24 With:Shi Urbano CNP Address: When:1 to 2 weeks [facility] 05-26-2022 Evaluation note* Encounter Date [...] consider an injection in the left knee. [employer] Other 05-22-2022 Evaluation note* Encounter Date Diagnosis [...] Pt understands and agrees with the plan. [employer] Other Evaluation + Plan note Future Appointments Appointment Date:02/24/2022 12:30:00 PM Scheduled Provider: Location:[facility] Appointment Type:Surgery FT Future Scheduled Tests Laboratory* Fecal WBC Lactoferrin 01/10/22 * Giardia lamblia, Direct Detection EIA 01/10/22 * O & P Exam, Routine 01/10/22 * Clostridium difficile by PCR 01/10/22 * Enteric Panel by PCR 01/10/22 [facility] Evaluation noteNo assessment information available [facility] Work Phone: Evaluation note* Diagnosis Coronary artery disease involving [place] coronary artery of [place] heart without angina pectoris- Primary Essential hypertension, benign Mixed hyperlipidemia Nonischemic cardiomyopathy (CMS/HCC) Other primary cardiomyopathies documented in this encounter [facility] Work Phone: History general Narrative - Reported* Type Description Date Medical History high cholesterol Medical History high blood pressure Medical History [place] Medical History asthma Surgical History right knee repacement Surgical History gall bladder Surgical History hysterectomy Surgical History carpal tunnel release Hospitalization History [facility] on original products Other History of Present illness Narrative* Patient [...] other recommendation for changes in medical therapy. [facility] [employer] DO Work Phone: History of Present illness [...] which appears to be adequate and appropriate. [facility] [employer] DO Work Phone: History of Present [...] which appears to be adequate and appropriate. [place] [address] DO Work Phone: History of Present illness [...] no change and she will follow-up next year[place] [address] DO Work Phone: Hospital course Narrative No data available for this section [facility] Hospital Discharge instructions Additional Instructions Increase your intake of fluids. Take Zofran as prescribed for nausea. Follow-up with your primary care physician for reevaluation in 3 to 5 days.[facility] Work Phone: Progress note No data available for this section [facility] Reason for referral (narrative)* Consultation (Routine) - Authorized Specialty Diagnoses / Procedures Referred By Contac t Referred To Contact Cardiology Diagnoses Essential hypertension, benign Procedures Follow Up In Cardiology Nick Wasserman MD [facility] [address], [address] [address] Nick Wasserman MD [facility], [address] [address] Referral ID Status Reason Start Date Expiration Date V isits Requested Visits Authorized [id number] Authorized 02/02/2023 02/02/2024 1 1 T [facility] Work Phone: Summary Purpose Family History [...] section and content) DATE CREATED AUTHOR 04/09/2019 [facility] DATE CREATED AUTHOR AUTHOR'S ORGANIZ ATION 11[place]20[place]2020 [facility] [place] CREATED AUTHOR AUTHOR'S ORGANIZ ATION 09/01/2021 [facility] DATE CREATED AUTHOR AUTHOR'S ORGANIZ ATION 10/25/2021 [facility] dical Specialist DATE CREATED AUTHOR AUTHOR'S ORGANIZ ATION 03/07/2022 [employer] DATE CREATED AUTHOR AUTHOR'S ORGANIZ ATION 03/11/2022 [facility] DATE CREATED AUTHOR AUTHOR'S ORGANIZ ATION 04/01/2022 [facility] DATE CREATED AUTHOR AUTHOR'S ORGANIZ ATION 02/03/2023 [facility] DATE CREATED AUTHOR AUTHOR'S ORGANIZ ATION 02/20/2023 [facility] DATE CREATED AUTHOR AUTHOR'S ORGANIZ ATION 03/21/2023 [facility] DATE CREATED AUTHOR AUTHOR'S ORGANIZ ATION 04/20/2023 [facility] dical Specialists EPIC REASON FOR VISIT (unrecogniz ed section and content) Reason Comments Follow-up 6m Care Teams (unrecognized sec tion and content) Team Status: Active Member Role Status Dates Adriana Tirado-Keween[place] , DO Primary Care Provider Active Team Status: Inactive Member Role Status Dates Adriana Cruz , DO Primary Care Provider Active Nick Wasserman MD Attending Provider Active Team Status: Inactive Member Role Status Dates Adriana Cruz , DO Primary Care Provider Active Misbah [place] , DO Emergency Provider Active Crtts Relationship Specialty Start Date End Date Adriana Cruz BillieDO morales [address] [place] [id number] PCP - General 09/17/20 Team Status: Inactive Member Role Status Dates Adriana Cruz , DO Primary Care Provider Active LIT Bailey Attending Provider Activ jenelle Goals (unrecognized section and content) Goals may [...] BE BASED ON THE PRIMARY CLINICAL RECORDS. [employer] provides no warranty or guarantee of the accuracy or completeness of information in this document.
== END 2023-04-28 09:15 | disposition home or self-care (01) ==
LOC: VC 09:24
PROVIDERS: PCP Radiology Diagnostic Radiology; Visit Provider Radiology Diagnostic Radiology
DX: I83.813 Varicose veins of bilateral lower extremities with pain (principal)
CPT/HCPCS: 36466

== ENCOUNTER 2023-05-06 09:50 | Outpatient (OUT) | payer MEDICARE, OTHER, SELFPAY ==
--- NOTE | 2023-05-06 09:51 | VEIN_ITS ---
Patient Name: ADINA PERRY MR#: [id number] : 1940 Exam Date: 05/06/2023 Ordering Doctor: DR JESUS ADAM M.D. RADIOLOGY REPORT PROCEDURE: [facility] EST [facility] - OFFICE VISIT FOLLOW UP COMPARISON: [facility] EST LMT[facility], 04/27/2023. [facility] EST LMT[facility], 04/17/2023. PROGRESS NOTES: The patient reports no significant problems following micro foam chemical ablation the right leg. The patient has worn her compression stocking. The patient did not require oral analgesics. The patient has exercised. Physical exam demonstrates multiple thrombosed varicose and reticular veins. There is moderate hemosiderin staining. This was discussed with the patient and I recommended she use a mineral sun screen for her visit to [facility] over the next several months. I informed the patient that resolution of the thrombosed veins could take up to a year. Review of the ultrasound performed the same day demonstrates occlusive thrombus extending throughout the treated right leg incompetent varicose veins. There is a small segment of deep vein thrombus identified in a single gastrocnemius vein, 1.1 cm from the popliteal vein. The patient expressed a desire to proceed with treatment of bilateral reticular spider veins with injection sclerotherapy. VEIN/[facility] EST LMTD IMPRESSION: 1. Successful ablation of treated right leg incompetent varicose veins 2. Small segment of deep vein thrombus in a gastrocnemius vein 3. Persistent bilateral reticular and spider veins PLAN: Injection sclerotherapy reticular and spider veins Nurse notes, history and physical were reviewed and confirmed, see attached forms. The nurse was present throughout the physical exam and consultation Dictated by: Jesus Adam MD on 05/06/2023 at 11:27 Approved by: Jesus Adam MD on 05/06/2023 at 11:30
--- NOTE | 2023-05-06 09:51 | VEIN_ITS ---
Patient Name: ADINA PERRY MR#: [id number] : 1940 Exam Date: 05/06/2023 Ordering Doctor: DR JESUS ADAM M.D. RADIOLOGY REPORT PROCEDURE: VC EXT VENOUS RT LMTD COMPARISON: VC EXT VENOUS RT LMTD, 04/17/2023. INDICATIONS: I80.01 Phlebitis of superficial veins of right lower extremity TECHNIQUE: Lower extremity patel scale and Duplex Doppler evaluation of the deep venous system from the inguinal ligament through the calf veins. FINDINGS: REGION: Right lower extremity. THROMBI: Small segment of deep vein thrombus identified in a single gastrocnemius vein, 1.1 cm from the popliteal vein. Chemically induced thrombus in multiple varicose veins in right leg. COMPRESSIBILITY: Non-compressible segments corresponding to thrombus FLOW: Areas of no flow corresponding to thrombus OTHER: Patent distal GSV 1.6 mm. No significant varicose veins remain. CONCLUSION: Post ablation occlusion of treated varicose veins. Small segment of deep vein thrombus in a single gastrocnemius vein, 1.1 cm from the popliteal Dictated by: Jesus Adam MD on 05/06/2023 at 10:25 Approved by: Jesus Adam MD on 05/06/2023 at 11:26
--- OUTSIDE RECORDS SUMMARY | 2023-05-06 10:06 | XMS_ITS | CCD ---
Author Name Unknown Address [address] [place] [address] Organization [facility] Care Team Providers Care Color Consultant Name Role Phone Adriana Cruz Unavailable [phone] Unavailable Unavailable Clement Madrid II Unavailable Eliecer Gray Unavailable DO Adriana Cruz Primary Care Provider DO Misbah Greenwood Emergency Provider [facility] Berry Primary Care Physician Shi Urbano Attending [...] Ayala Consulting Unavailable Trabgautam Moaguilar Consulting Unavailable Trabcalvnii Moaguilar Consulting Unavailable Mitchel Moaguilar Consulting Unavailable [...] Jeferson Attending Unavailable SALAM, Jeferson Admitting Unavailable Tirado-Collin, Adriana Billie Primary Care Unava ilable Tirado-Collin, Adriana Billie Primary Care Unava ilable McGuinn II, Nick Garduno Attending Unav ailable McGuinn II, Nick Garduno Attending Unav ailable Tirado-Collin, Adriana Billie Primary Care Unava ilable McGuinn II, Nick Garduno Referring Unav ailable Tirado-Collin, Adriana Billie Primary Care Unava ilable McGuinn II, Nick Garduno Referring Unav ailable McGuinn II, Nick Garduno Attending Unav ailable Tirado-Collin, Adriana Billie Primary Care Unava ilable Tirado-Collin, Adriana Billie Primary Care Unava ilable McGuinn II, Nick Garduno Attending Unav ailable Luis Nolasco Unavailable Savanna Cassidy Unavailable Tirado-Collin DO, Adriana Billie Primary Care Provi octavio Tirado-Collin, DO Adriana Primary Care Provider MD Nick Wasserman Attending Provider NICK WASSERMAN Attending Unavailable TIRADO-EMERY, ADRIANA BILLIE Primary Care Unava ilable Tirado-Collin, DO Adriana Primary Care Provider MD Nick Wasserman Attending Provider LIT Gray Attending Provider Tirado-Collin, Adriana Primary Care Unavailable Nick Wasserman Admitting Unavail able Nick Wasserman Attending Unavail able Eliecer Gray Attending Unavaila ble Tiraod-Collin, Adriana Primary Care Unavailable Eliecer Gray Admitting Unavaila ble TIRADO-EMERADRIANA Jimenez Attending Unavailab le TIRADO-EMERY, ADRIANA D Referring Unavailab ADRIANA Berry Referring Unavailab IRMA Chinchilla Attending Unavailable ADRIANA CRUZ Referring Unavailab SHREYA Gilman Attending Unavailable Allergies Allergy Classification Reported Allergen(s) Allergy Type Date of Onset Reaction(s) Facility (4 sources) HYDROcodone; Translations: [hydrocodone] Drug Allergy 2 [facility] (5 sources) oxyCODONE; Translations: [oxyCODONE] Drug Allergy 2 [facility] (2 sources) Acetaminophen / oxyCODONE; Translations: [acetaminophen-ox ycodone] Drug Allergy Nausea (finding) [facility] Comment on above: All pain meds EXCEPT Morphine. Patient is able to take Morphone. (1 source) Acetaminophen / HYDROcodone; Translations: [[place]] Drug Allergy [facility] (1 source) Acetaminophen / oxyCODONE; Translations: [Percocet] Drug Allergy [facility] (1 source) Darvocet-N 100; Translations: [Darvocet-N 100] Propensity to adverse reactions (disorder) [facility] Medications Current Medications Medication Drug [...] 1 EA, Refill(s) 0, Prior to colonoscopy., [employer] #24, 150, cm, 01/10/22 10:48:00 EDT, [...] [Coronary atherosclerosis of unspecified type of vessel, [place] or graft] Onset: 3 02-02-2023 Chronic Deficiency [...] IS VERY IMPORTANT TO YOUR HEALTH. 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 Person calling: caregiver: Alanis Return call to: self Medical Records/Insurance Card scanned into Naartj[employer]: Yes Comments: This was Routed Incorrectly Allergies [...] Status:Closed by ALANIS CASTILLO on 02/20/23 Normal [facility] Urinalysis - DIPSTICKon 11-0 Appearance (U) cloudy [employer] Other Bilirubin Ql (U) Negative All [employer] Now Other Color (U) yellow [employer] Other Glucose Ql (U) Negative [employer] Other Hemoglobin Ql (U) small End[employer] Other Ketones Ql (U) Negative [employer] Other Leukocyte esterase Test strip Ql (U) large [employer] Other Nitrite Ql (U) Positive [employer] Other pH (U) 5.0 [pH] [employer] Other Protein Ql (U) trace [employer] Other Specific gravity (U) [Rel density] 1.025 [employer] Other Urobilinogen (U) [Mass/Vol] 0.2 mg/dL [facility] shopa Other Urinalysis - DIPSTICK [facility] shopa Other Urine Cultureon 02-11-2023 Bacteria identified Cx Nom (U) ORGANISM: Escherichia coli (O:ESCCOL) [place] Count >100,000 Aerobic DYLAN Charge (NMIC56) SUSCEPTIBILITY [...] RESISTANT TO ALL B-LACTAM DRUGS. PERFORMED BY: [place] [address] PATHOLOGIST LINE SERVER RENAN CAIN M.D. [facility] Comment on above: Performed By: #### C UU #### [address] Basic Metabolic Panelon 10-3 0-2022 Anion gap [Moles/Vol] 11.0 mmol/L Normal 6.0-15.0 [facility] Comment on above: Performed By: #### L IPID, BMP, CBC #### [facility] [address] Calcium [Mass/Vol] 10.1 mg/dL Normal 8.6-10.3 [facility] Comment on above: Performed By: #### L IPID, BMP, CBC #### [facility] [address] [place] [address] [place] Chloride [Moles/Vol] 107 mmol/L Normal 98-107 [facility] Comment on above: Performed By: #### L IPID BMP, CBC #### [facility] [address] CO2 [Moles/Vol] 26.4 mmol/L Normal 21.0-31.0 [facility] Comment on above: Performed By: #### L IPID, BMP, CBC #### [facility] [address] [place] [address] [place] Creatinine [Mass/Vol] 1.34 mg/dL High 0.60-1.20 [facility] Comment on above: Performed By: #### L IPID, BMP, CBC #### [facility] [address] [place] [address] [place] GFR/1.73 sq M.predicted MDRD (S/P/Bld) [Vol rate/Area] 40.085 mL/min/{1.73_m2} Normal [facility] Comment on above: Performed By: #### L IPID, BMP, CBC #### [facility] [address] [place] [address] [place] Glucose [Mass/Vol] 91 mg/dL Normal 70-100 [facility] Comment on above: Result Comment: [place] Glucose Reference Range is dependent on time and content of last meal. Glucose of more than 200 mg/dL in a nonstressed, ambulatory subject supports the diagnosis of Diabetes Mellitus. ADA recommended reference range Performed By: #### L IPID, BMP, CBC #### [facility] [address] [place] [id number] [place] Potassium [Moles/Vol] 4.4 mmol/L Normal 3.5-5.1 [facility] Comment on above: Performed By: #### L IPID, BMP, CBC #### [facility] [address] [place] [address] [place] Sodium [Moles/Vol] 140 mmol/L Normal 136-145 [facility] Comment on above: Performed By: #### L IPID, BMP, CBC #### [facility] [address] [place] [address] [place] Urea nitrogen [Mass/Vol] 23 mg/dL Normal 7-25 [facility] Comment on above: Performed By: #### L IPID, BMP, CBC #### [facility] [address] [place] [address] [place] Basophils Auto (Bld) [#/Vol] Ordered By: Nick Wasserman on 02-02-2023 Basophils (Bld) [#/Vol] 0.0 10*3/uL 0.0-0.2 [facility] Basophils/100 WBC Auto (Bld) Ordered By: Nick Wasserman on 02-02-2023 Basophils/100 WBC (Bld) 0.4 % . [facility] Calcium [Mass/volume] in Ser um or PlasmaOrdered By: Nick Wasserman on 02-02-2023 Calcium [Mass/Vol] 10.1 mg/dL 8.6-10.3 [facility] Carbon dioxide, total [Moles /volume] in Serum or PlasmaOrdered By: Nick Wasserman on 02-02-2023 CO2 [Moles/Vol] 26.4 mmol/L 21.0-31.0 [facility] Chloride [Moles/volume] in S kobi or PlasmaOrdered By: Nick Wasserman on 02-02-2023 Chloride [Moles/Vol] 107 mmol/L 98-107 [facility] Cholesterol [Mass/volume] in Serum or PlasmaOrdered By: Nick Wasserman on 02-02-2023 Cholesterol [Mass/Vol] 170 mg/dL 140-200 [facility] Comment on above: Chol less than 200 m g/dl low riskChol 201-239 mg/dl borderline riskChol 240 mg/dl and greater high risk Cholesterol in LDL Calc [Mas s/Vol]Ordered By: Nick Wasserman on 02-02-2023 Cholesterol in LDL [Mass/Vol] 89 mg/dL 0-100 [facility] Comment on above: LDL ATP III CLASSIFI CATIONLDL less than 100 mg/dL OptimalLDL 100-129 mg/dL Near or above optimalLDL 130-159 mg/dL Borderline highLDL 160-189 mg/dL HighLDL greater than 189 mg/dL Very high Cholesterol in VLDL Calc [Ma ss/Vol]Ordered By: Nick Wasserman on 02-02-2023 Cholesterol in VLDL [Mass/Vol] 25 mg/dL [facility] Complete Blood Count Auto Di ffon 02-02-2023 Basophils (Bld) [#/Vol] 0.0 10*3/uL Normal 0.0-0.2 [facility] Comment on above: Result Comment: PERF ORMED BY: [place] [address] PATHOLOGIST LINE SERVER RENAN CAIN M.D. Performed By: #### L IPID, BMP, CBC #### [facility] [address] [place] [address] Basophils/100 WBC (Bld) 0.4 % Normal . [facility] Comment on above: Performed By: #### L IPID, BMP, CBC #### [facility] [address] [place] [address] [place] Eosinophils (Bld) [#/Vol] 0.3 10*3/uL Normal 0.0-0.45 [facility] Comment on above: Performed By: #### L IPID, BMP, CBC #### [facility] [address] [place] [address] [place] Eosinophils/100 WBC (Bld) 3.4 % Normal . [facility] Comment on above: Performed By: #### L IPID, BMP, CBC #### [facility] [address] [place] [address] [place] Erythrocyte distribution width (RBC) [Ratio] 13.0 % Normal 11.9-15.3 [facility] Comment on above: Performed By: #### L IPID, BMP, CBC #### [address] Hematocrit (Bld) [Volume fraction] 37.3 % Normal 34.0-46.4 [facility] Comment on above: Performed By: #### L IPID, BMP, CBC #### [address] Hemoglobin (Bld) [Mass/Vol] 12.5 g/dL Normal 11.8-15.4 [facility] Comment on above: Performed By: #### L IPID, BMP, CBC #### [address] Lymphocytes (Bld) [#/Vol] 1.4 10*3/uL Normal 1.00-4.8 [facility] Comment on above: Performed By: #### L IPID, BMP, CBC #### [address] Lymphocytes/100 WBC (Bld) 16.6 % Normal . [facility] Comment on above: Performed By: #### L IPID, BMP, CBC #### [address] MCH (RBC) [Entitic mass] 30.9 pg Normal 24.7-34.3 [facility] Comment on above: Performed By: #### L IPID, BMP, CBC #### [address] MCV (RBC) [Entitic vol] 91.8 fL Normal 80-100 [facility] Comment on above: Performed By: #### L IPID, BMP, CBC #### [address] Mean Corpuscular HGB Conc 33.6 g/dL Normal 32.0-35.0 [facility] Comment on above: Performed By: #### L IPID, BMP, CBC #### [address] [place] [address] [place] Monocytes (Bld) [#/Vol] 0.8 10*3/uL Normal 0.0-0.8 [facility] Comment on above: Performed By: #### L IPID, BMP, CBC #### [facility] [address] [place] [address] [place] Monocytes/100 WBC (Bld) 9.0 % Normal . [facility] Comment on above: Performed By: #### L IPID, BMP, CBC #### [facility] [address] [place] [address] [place] Neutrophils (Bld) [#/Vol] 6.1 10*3/uL Normal 1.8-7.7 [facility] Comment on above: Performed By: #### L IPID, BMP, CBC #### [address] Neutrophils/100 WBC (Bld) 70.6 % Normal . [facility] Comment on above: Performed By: #### L IPID, BMP, CBC #### [facility] [address] [place] [address] [place] NRBC% 0.0 /100{WBC} Normal 0-0.5 [facility] Comment on above: Performed By: #### L IPID, BMP, CBC #### [address] Platelet mean volume (Bld) [Entitic vol] 8.2 fL Normal 6.3-10.7 [facility] Comment on above: Performed By: #### L IPID, BMP, CBC #### [facility] [address] [place] [address] [place] Platelets (Bld) [#/Vol] 296 10*3/uL Normal 150-450 [facility] Comment on above: Performed By: #### L IPID, BMP, CBC #### [facility] [address] [place] [address] [place] RBC (Bld) [#/Vol] 4.07 10*6/uL Normal 3.60-5.00 [facility] Comment on above: Performed By: #### L IPID, BMP, CBC #### [facility] [address] [place] [address] [place] WBC (Bld) [#/Vol] 8.6 10*3/uL Normal 3.8-11.6 [facility] Comment on above: Performed By: #### L IPID, BMP, CBC #### [facility] [address] [place] [id number] [place] Creatinine [Mass/volume] in Serum or PlasmaOrdered By: Nick Wasserman on 02-02-2023 Creatinine [Mass/Vol] 1.34 mg/dL 0.60-1.20 [facility] Eosinophils Auto (Bld) [#/Vo l]Ordered By: Nick Wasserman on 02-02-2023 Eosinophils (Bld) [#/Vol] 0.3 10*3/uL 0.0-0.45 [facility] Eosinophils/100 WBC Auto (Bl d)Ordered By: Nick Wasserman on 02-02-2023 Eosinophils/100 WBC (Bld) 3.4 % . [facility] Erythrocyte distribution wid th Auto (RBC) [Ratio]Ordered By: Nick Wasserman on 02-02-2023 Erythrocyte distribution width (RBC) [Ratio] 13.0 % 11.9-15.3 [facility] Glucose [Mass/volume] in Ser um or PlasmaOrdered By: Nick Wasserman on 02-02-2023 Glucose [Mass/Vol] 91 mg/dL 70-100 [facility] Comment on above: ADA recommended refe rence rangeRandom Glucose Reference Range is dependent on time and content of last meal. Glucose of more than 200 mg/dL in a nonstressed, ambulatory subject supports the diagnosis of Diabetes Mellitus. Hematocrit Auto (Bld) [Volum e fraction]Ordered By: Nick Wasserman on 02-02-2023 Hematocrit (Bld) [Volume fraction] 37.3 % 34.0-46.4 [facility] Hemoglobin [Mass/volume] in BloodOrdered By: Nick Wasserman on 02-02-2023 Hemoglobin (Bld) [Mass/Vol] 12.5 g/dL 11.8-15.4 [facility] Leukocytes [#/volume] correc sergey for nucleated erythrocytes in Blood by Automated counOrdered By: Nick Wasserman on 02-02-2023 WBC corrected for nucl RBC Auto (Bld) [#/Vol] 8.6 10*3/uL 3.8-11.6 [facility] Lipid Panelon 02-02-2023 Cholesterol [Mass/Vol] 170 mg/dL Normal 140-200 [facility] Comment on above: Result Comment: Chol less than 200 mg/dl low risk Chol 201-239 mg/dl borderline risk Chol 240 mg/dl and greater high risk Performed By: #### L IPID, BMP, CBC #### [facility] [address] Cholesterol in HDL [Mass/Vol] 56 mg/dL Normal 23-92 [facility] Comment on above: Result Comment: HDL CHOL ATP-III CLASSIFICATION Cardiovascular Risk HDL > or equal to 60 mg/dL LOW HDL < 40 mg/dL HIGH Performed By: #### L IPID, BMP, CBC #### [facility] [address] Cholesterol.total/Cho lesterol in HDL [Mass ratio] 3.0 {ratio} Normal <5.0 [facility] Comment on above: Result Comment: PERF ORMED BY: [place] [address] PATHOLOGIST LINE SERVER RENAN CAIN M.D. Performed By: #### L IPID, BMP, CBC #### [facility] [address] [place] [address] [place] LDL Cholesterol,Calculate d 89 mg/dL Normal 0-100 [facility] Comment on above: Result Comment: LDL ATP III CLASSIFICATION LDL less than 100 mg/dL Optimal LDL 100-129 mg/dL Near or above optimal LDL 130-159 mg/dL Borderline high LDL 160-189 mg/dL High LDL greater than 189 mg/dL Very high Performed By: #### L IPID, BMP, CBC #### [facility] [address] [place] [id number] [place] Triglyceride w/Reflex 127 mg/dL Normal 0-149 [facility] Comment on above: Result Comment: TRIG ATP III CLASSIFICATION TRIG less than 150 mg/dL Normal TRIG 150-199 mg/dL Borderline high TRIG 200-500 mg/dL High TRIG greater than 500 mg/dL Very high Standard traceable to the Center for Disease Conrtrol and Prevention (CDC) test method. Performed By: #### L IPID, BMP, CBC #### [facility] [address] VLDL CHOLESTEROL 25 mg/dL Normal [facility] Comment on above: Performed By: #### L IPID, BMP, CBC #### [facility] [address] Lymphocytes Auto (Bld) [#/Vo l]Ordered By: Nick Wasserman on 02-02-2023 Lymphocytes (Bld) [#/Vol] 1.4 10*3/uL 1.00-4.8 [facility] Lymphocytes/100 WBC Auto (Bl d)Ordered By: Nick Wasserman on 02-02-2023 Lymphocytes/100 WBC (Bld) 16.6 % . [facility] MCH Auto (RBC) [Entitic mass ]Ordered By: Nick Wasserman on 02-02-2023 MCH (RBC) [Entitic mass] 30.9 pg 24.7-34.3 [facility] MCHC Auto (RBC) [Mass/Vol]Or dered By: Nick Wasserman on 02-02-2023 MCHC (RBC) [Mass/Vol] 33.6 g/dL 32.0-35.0 [facility] MCV Auto (RBC) [Entitic vol] Ordered By: Nick Wasserman on 02-02-2023 MCV (RBC) [Entitic vol] 91.8 fL 80-100 [facility] Monocytes Auto (Bld) [#/Vol] Ordered By: Nick Wasserman on 02-02-2023 Monocytes (Bld) [#/Vol] 0.8 10*3/uL 0.0-0.8 [facility] Monocytes/100 WBC Auto (Bld) Ordered By: Nick Wasserman on 02-02-2023 Monocytes/100 WBC (Bld) 9.0 % . [facility] Neutrophils Auto (Bld) [#/Vo l]Ordered By: Nick Wasserman on 02-02-2023 Neutrophils (Bld) [#/Vol] 6.1 10*3/uL 1.8-7.7 [facility] Neutrophils/100 WBC Auto (Bl d)Ordered By: Nick Wasserman on 02-02-2023 Neutrophils/100 WBC (Bld) 70.6 % . [facility] No Panel InformationOrdered By: Nick Wasserman on 02-02-2023 Estimated GFR (CKD-EPI) 40.085 mL/Min [facility] Creatinine Clearance (Chem N/A [facility] Nucleated erythrocytes [Pres ence] in Blood by Automated countOrdered By: Nick Wasserman on 02-02-2023 Nucleated RBC Auto Ql (Bld) 0.0 /100{WBC} 0-0.5 [facility] Platelet mean volume Auto (B ld) [Entitic vol]Ordered By: Nick Wasserman on 02-02-2023 Platelet mean volume (Bld) [Entitic vol] 8.2 fL 6.3-10.7 [facility] Platelets Auto (Bld) [#/Vol] Ordered By: Nick Wasserman on 02-02-2023 Platelets (Bld) [#/Vol] 296 10*3/uL 150-450 [facility] Potassium [Moles/volume] in Serum or PlasmaOrdered By: Nick Wasserman on 02-02-2023 Potassium [Moles/Vol] 4.4 mmol/L 3.5-5.1 [facility] RBC Auto (Bld) [#/Vol]Ordere d By: Nick Wasserman on 02-02-2023 RBC (Bld) [#/Vol] 4.07 10*6/uL 3.60-5.00 [facility] Serum or plasma anion gap de terminationOrdered By: Nick Wasserman on 02-02-2023 Anion gap [Moles/Vol] 11.0 mmol/L 6.0-15.0 [facility] Serum or plasma high density lipoprotein (HDL) cholesterol measurementOrdered By: Nick Wasserman on 02-02-2023 Cholesterol in HDL [Mass/Vol] 56 mg/dL 23-92 [facility] Comment on above: HDL CHOL ATP-III CLA SSIFICATION Cardiovascular RiskHDL > or equal to 60 mg/dL LOWHDL < 40 mg/dL HIGH Serum or plasma total choles terol/high density lipoprotein (HDL) cholesterol mass ratOrdered By: Nick Wasserman on 02-02-2023 Cholesterol.total/Cho lesterol in HDL [Mass ratio] 3.0 {ratio} <5.0 [facility] Sodium [Moles/volume] in Ser um or PlasmaOrdered By: Nick Wasserman on 02-02-2023 Sodium [Moles/Vol] 140 mmol/L 136-145 [facility] Triglyceride [Mass/volume] i n Serum or PlasmaOrdered By: Nick Wasserman on 02-02-2023 Triglyceride [Mass/Vol] 127 mg/dL 0-149 [facility] Comment on above: TRIG ATP III CLASSIF ICATIONTRIG less than 150 mg/dL NormalTRIG 150-199 mg/dL Borderline highTRIG 200-500 mg/dL High TRIG greater than 500 mg/dL Very highStandard traceable to the Center for Disease Conrtrol and Prevention (CDC) test method. Urea nitrogen [Mass/volume] in Serum or PlasmaOrdered By: Nick Wasserman on 02-02-2023 Urea nitrogen [Mass/Vol] 23 mg/dL 7-25 [facility] WBC Auto (Bld) [#/Vol]Ordere d By: Nick Wasserman on 02-02-2023 WBC (Bld) [#/Vol] 8.6 10*3/uL 3.8-11.6 [facility] Coding Summary.on 03-11-2022 Coding Summary. [id number] Gh0bWw +PGhlYWQ+UI5FULHkK97dpDCss X9JB5kQGW8MHLWXNSCIGF9MNC2 tjDI3UKyhE5XrhaJk BhwihXTlBY40KGe6VZD5tOgzJR whhW6wsQKbM5q1EtYpAF71hK02 SSheODTtXsS6AgTmddvayNKy E4zuZpMtgGLoNna+PHRhYmxlIH bzCCHoPVcjTODcTtJshIbsFP9n Bb6iPZDeZHSnvEtczHNwMlZk t7btIARnOTadZS0cxOpuR5KhvY Y2UMJkj7h8Gt85mQH+PHRkIHN0 mZuiFRggj826RzFoa5nlAUC7 tMXhESfoZHP7X83nr0M0DDQoNH NwNUZ7kCN4xD6erFacemuaR6Lk iVYcJzT6UGX5dQYijE2opNjr eznsdH7eZrv+W21AJH1QJYVUKF 0UDwo2K0ZgXwkpxTB+RB16XBMh LF12bJTomOTmz3fczKa1XrWd VENfRQP3yTkiCIqjs4MbUYExC3 9sdALcd9M3KBNibFnwuRSjArIr xND6hX4iJJrezkfoh9ljshzc Bcwml8gjau03qT04Y92jXLeqCE ZkAHF0DANpUUToqWwzxu5lyP6m Ii8+TFfaj5nsk0mohRu4LeOi HDYvdvDmdRrgOCE4c3IqTq79Z8 WteQont5PuJsi9ub81uUYfs8B0 rLA6WZhhNSEedU9aJZjfZsO0 IQIuJxOggZ68sWOwWExxKo1uzO jpvBtmPM0kNFEcyznpJCEglR5j CXPnaBLkbFhhFD7nSHMsrkdi f505IdEoRIQ8LEWevHBiC3CunE 1fNpZkQDGxIYPjK3XemSMcPHwd S940BAvzGeM2GLQskiKwP5Nz YGOlvNjeFjK8e4J5Ff7Ko8Kkdr xgCQI7ENouORJfBkN0KbIyZtC0 D8ZkDil7LUGdsCwoGJ7dI4Qj NEJknqujolhxhXN4BUVgXLWlyX 04uXOaXUahHx4wp4T7z836GXFd VYNskL16Th0qiCahQJGueJDG eO4osonzt0vesuwfEtWdBTMfVA a3HUv1UKVyjKlvGwQcFTF0VuW3 DDN0pWPfwE3lmJmikgffxH3y Oyc+N17ptN7mEKG9XWZ0irqiFO GxjwNiXQ46JN08A8QdEryprOVz bGU+TWJdcdJanAklXA3kZvGa y5usl4VnZDqjS7QbNRHhRVgkWy v8UJYfLBK7tYE3dM1rVIRwVHyl n1D2zFW4K7NplcPhgx1gq0wk RQSlYEbvJ29oaCMvj0O0KWYzdY B4RJLtkHaeCqGwfY58Wzh+PGNv hDohu3TrHkkcr2kde0fkpUr0 HaVeZWKkgnWttJgmZZY3u3KnYe 76V33tVWzbQCKuSKWlRZIxVMHx oSyyjf5myO7kRf9+PGNvbCB3 nHP5mJ8pCJXgHrZ1CButH517Du ZhvYHjBfdnw6ojv1nizKz8GkAu DUAtvcUsnXxmONJ4a2HvYm90 F80cVLasTMZuTMEyYLNwXJRycD ebkx1xhV3pXw1+JS3zi0acvu16 eX50tHU+JWJuEOJ2dShxLQkb AXXfcD4qHLsqZzT4QNAkKeKatB 66iLCeGNlnAj4ufKvdrXgdQV5e HJLoyaczq842PvYyl9heNHPi qOQdPIemEWY6B34ts5X7CEWbDA RvQHF2mLI2fI1fbNvfqeggqVNr fIlnqpRrnIsfSVxoDVdpB329 IHRvcDsnPlBhdGllbnQgTmFtZT m6H3SrTam8JJQxiNmxEO3ogHAr ARxvQw2lvGgjvFrhFJ0xLLDm qgkge266TvVft4ooWCTrrMOaRK rjJKY4I49kj7S5ABMfQCEuYCA0 tNQ6sI4sdXofujvyqQOxpVdg qwWshGtcSAsnONeyT212DIGvbR reZjPjjyOeMZBeuQP4BM32VH51 pLDfd6O9qOG0C4KoYPMnlpgf cbyvyEG3SDBrVXBapS43Bs7biG eqUs0yUSHuZUD6LMWkcSQnA7Sa xR5oIlUlBNPjPKLoN0FldFYi IRrlK274CVraKkQ9OCKtogHvU5 CbHUFafXqmHkH7j6T7Ld4EY3Y8 ZQ95DE90fGGce8S1zSS0A8Qr OWBzkppbxkjzmLK7MNFpUIOwyU 58Lk5xfJpsXc3uVNQsIUR6GXEm aSNhA9JivE0vCeCaKKFcXBMl E1IscFMjOFqwV660ZCzcPpN4QB WeimOkQ8KqGKKmcHsmGmL6l3Y8 Jj2UUMk5BL42AZ46fAXog5G2 uWM9Q9JxFHEkdfnghvfsgGQ4NZ WtSJHvvH72Ow0cnTkgMs3gOFDx TRZ8QAQwwEJbS0AtxH7aRhGi VPZkCLCcD9XciFTbYExdC144RF ztYxS9OHCyjlQgP1OoPTWesNhz OsQ8c9W5Zt1MHOSlJW10XZY7 sUA2XV99MG10Y0KrSmhbcNOqwM U+PHRhYmxlIHdpZHRoPScxMDAl UuFbeWtzMC2rIc2gVZAgUQYq fEqolRPnQrIaq4iwLTJlZNzzJH 7vzZfdY4GriRJ0MFRbq7j6Fv92 Z73pF5JtiJI+UFDitFP5kHE0 lP3bFmGqQgV6HQfyU157EwDflV WtBpxqt2msj7fsuNw0BwH6GEAu uvQhgPlrJKF8q6SoYq90Z41a IHdpZHRoPSIxNSUiIHZhbGlnbj 8dqG9oMh2+QZUdhJJ8cBF5gE3h BcDjHeI4COrkQ720LkRbkWGf Nghgu4rip3zxlVl9LsKyXENnws ZckDcuRTL8p3KwOp57M7AlfZck z2GeYin9xs73yGQqh7Q2lYD1 B1OiLDJamxwgaNMusIufUH4cFG YlcowgNCYsoK7pXCTxU3r7JiRp ApD5JFudS5TtyxU7QKPnwYKf DSpeXER0D32cs4A6LAAeGGFrMH L9rQF0xG1nyQhydptiaVOrdLgl viGtuXijESzhVCmsK440WROi bYihDZGqyB7cDUCsoOPpnPagRL 2nMRKycqdpHjTPZ3HEC1HwZKQZ QIUFI6nXPE32GS34eMDjx8Q1 hVA1U1FeUSJqgdroqmopkGJ1ZL GfQTQnfV34nBUxEPocDj8ec0L8 v176FIKwEXZyuC37Os4vwTbc LWHmoHCYuT3scaniv1ohlzmuBi SwVWOaDOi7ECd9BDGrmHjjXvPg OUQ5TxS2NMG4jCIdmR0mdLig bmdovO1qFnq+RWOjBVOpINp3Pl wvdGQ+QQJuPBT3pZhiQRitLIAs pM7xZIZwV9p9LvPcOvM1FEou H5RbWQWsurowWw48rH7tEbPtIy A4FLggE1BkhnF1LALzxACuDLke SBJ0G14eb9D6ZCZhBOGdATR9 kVT6sZ0niVnoqjhtcGAmnLcaeq CueGgxQQvsLIpxT609FYPxnQvo Nuu9ZCvyZWUeIW33KD81pWSo y5S9zRZ6C3EyYAItpyjzilhqdT R8EQDaBOFfvM05wWYfBGwpFa7g m9Z7s151JXFbPWYitU73Ny8u gYroJJLbtWUOvV2jsllpx4gqqc orFwTvSEFzWCi1GMt8LSOyoUvv DjFeIAM2NhO8NTA3aCGicO9v xXakofbyrU5uWob+RmVtYWxlPC 73OH29kXJll8R3jHF2J5LlLKNg sakietrtbUI6RBIpFATjsB29 nPKjIEqkNk7mf3G0k148WDDbNO RjoQ88Mz6vsFfgKUUrnNXAlQ1o jrnxl7gihbrdXwJzDTRzXLm9 AZd7QLBnqBnmJbGtYQQ2PtF5WB E6tGEedN0luNbwkowxlE6rLfs+ N8BdNEU0FTFeg212K4LmLgfm dHI+PU30OWSkXH28kHJxzYXwb5 wouZc1WzUkCBZwVYR0xWwnOJlx s8FeGVZsQ75amZHvr3J2BWVm lXtelXDaNbKajNK9hR2nYXpmeg ehj2qkthigUfjzi0lkif69cT02 N96zQTstBRYkPLKxQADtVRKm tSnkgw2yqW7bNu4+YKKalBF0rK S6zO7zSbMeBaF5TRfkN673JeKz rHEwVtfrl7ngv1sfzPd5MzDs WMWeltSwjUdrUXB6o3WfXp73N7 9sIHdpZHRoPSIyMCUiIHZhbGln zh6okP0gJj0+XE2fr6dxzc27 nP83bOL+MJUfMDE5mIiqPPsqWL DmyQ5aTTetOwE1VQCwBtPdoE73 sFMxWTeuDf3ofEmwhSwnVJ0g WTAkvyyup970SbEwl4scIAMjbV PrHGbyERK9T06tq5F0GTRdSHRp WSM9xES6vE0qiPhtwtmnrSKi vUjqcdIunBhyUMxuYAhmE312KE CksSsxJiKncQGaB9gopsGZWM4g OjwvdGQ+JQAxVWN5fOmbZLvf OFIljD7mAAHfJ1n6TyYxGfE8HR lsI4NpkwX6CRPyaZEqOKDalZSF pV0enlhbm8xzuaecQoFwTFRe PXu6VQe2SXIuoYljPgJvRSJ2Ce D8IAA2uIIscY3ztRtabvcfcA6j Oyc+RklOOjwvdGQ+PHRkIHN0 eLjrRKkqYODflE0lLZHhP0o5Hw PxRsZ6EGegV2AlizS3GEHvpZZt TMVkyHWWnO6drxojh7izyhav VaCuPOVjRYf5OTt6KCDnxJziOh WfRJC5LyU2QPW2cLAcpS4faZcl iywsvN6uTfv+TVJOOjwvdGQ+ AGIhGSU8vFkfXWvxUBHhkP9jJW VjZ6n3YaKaQbM5LEiiY7ZilhX7 WWEyuCNwHDAhmJSZcL6hlfxa z3njzjroYbUoTKBmCXr3LAd8VI GatOyzPrLoMWZ4BkV6OXT1oSUb fR1vyIjpanzxfS6zTuu+UGF5 LZV7DA00HF60J0OtHmkluVHnwM U+PHRhYmxlIHdpZHRoPScxMDAl XpUvrPmtRY0yZe6eWLWwJJXk bGxh (more content not included)... Normal [facility] Office Visit (Cardiology)on 03-06-2022 Follow-up visit [...] negative for complaint. Vitals Vital Signs Recorded: [id number] 03:48PMRecorded: 86Rhm0105 03:25PM Tdcbuypk920, LUE, Xesxxye298, LUE, Sitting Tmawwnknn22, LUE, Yufbopx29, LUE, Sitting Heart Rate66, L Radial Height4 ft 9 in Tirgta388 lb BMI Qzastzfjvi08.37 kg/m2 BSA Calculated1.38 Tobacco Useb) No Falls [...] Mar 06 2022 4:39PM EST (Author) Normal [employer] Tobacco Screening.on 022 Fall risk assessment a) No falls within the last year [facility]-Chris y 250 DO Work Phone: Tobacco use status CP b) No [facility] y 250 DO Work Phone: IntraOperative Documentson 1 05-04-2021 IntraOperative Documents [id number]#[id number]:127 Normal [facility] General Surgery Office/Clini c Noteon [...] after patient or guardian consented to allow Scaled Inference eXperience to record this visit. ANA M immigration specialist and provider reviewed before signing. ANA [...] list Allergies Percocet (Nausea) Darvocet-N 100 (vomiting) Sopchoppy (Vomiting) oxyCODONE (Vo (more content not included)... Normal [facility] Comment on above: Result Comment: Elec [...] Locations R1: This test was performed at: [facility], [address] [place] [address], [address] , [place], [facility] Comment on above: Performed By: #### 2 [id number], [id number] #### [facility] [address] [place] [address] Coding Summary.on 02-25-2022 Coding Summary. CD:[id number] Gh0bWw +PGhlYWQ+HO1VXETsL74gnNWhu Y2OO9vWHK6ZCACZAHEBIY8EYV5 ocFQ5AIptX8DmvzZl FxwbsTInTF99XMv8OAQ9fVrjLM keeU4vhEUqW4d3ScKgMP49eV47 XHgjEZOcFzZ6FaMhvvrqrQZw P9esKqUisJFqHys+PHRhYmxlIH eeNCUiCCsqDCNiEtQlsSyfTV4f Eo0eAYCxFYJdsDfsfGKdAdRa b7wvZLKiHSdvRH3vxVnxL5DlvI D9VMZnq7i9Tq10iVJ+PHRkIHN0 rQoqDPwyn588DiXhv2srYUX0 nYJaAZpbBDQ3X62nv4E0IOLeAB NhNPG4oUD6oN7zzWztikmfF6Tl aUFzNeH0QTG0vZZqcL6ziLca cygqfN1rZzj+L74IDP5VNGEEJR 2JEse8K9AmYorstLA+ZA62FNAg CR98oFFemPJex8emlEc5NzQm SXCsNQO4pJmrCIepy2KyDYViN4 7bwPOlw4W8WUKetVrpbUPsGtCo dAK7gZ7qYNizsikgk2ngnrhc Zlqip7cdac07wR45O17wEOtgZB GxPAU0UDYfSQHddEaroa4ieV3p Ii8+DOjwo9tcv6sfgTp1LgEg AOQlhvApaKdzVOU3q7NxSb44A8 LqeYqfo8TmAuc5ws48gBYkc5N3 yQY0GEnsISHaqJ3vAErmHjI8 BOHhIsOciK57nXNzWHhiOv4xqO xzaGqpPM7xOAEwdwcuVFHsyS0f BSOrnTNrjDbdNP1lWHWzsxeo z985AtOdQLR1FYEcbPFzU0YmzN 3eUnSsOARqNHVwA6PvxYKbUCuk W352EJcvZvL4FMVldaUrL7Ie JULyrQggCvL5r4E4Yy3Gc2Xvfv gxMOV0IJvkXTUvKeUxUzUkCxC1 G6DrOgc6FHBmqRxmPA5bO6Ln WSJupddhjnebbWI0OGKkYWCqbD 66nXRxGJceXt7kf0A0l971OIFy FQBcbF97Lf6zoTyyBUDzoUWP sD9zojaho9mcsamkYyDpRBWpSX z1JHl8FUQgpEatQoElTCV4MqQ8 WRK2wHIhwO6kwAfyqsqwtG7o Oyc+K83ftA4vUGZ5XIA9hmjzKJ HbihGgTM82LH69G8RdUugoiJGa bGU+HJOzoxJcvUcjRR4qBiOt c4wcs1VcWBdeY6KrWADpIVuzOs b0CUIoUBB5yGS2yH7uITHfJZqw j0Z8zSI4E0AsymQfvn3hc4et JUJpEGfpA48jmNNvy7M3MDGahY R3MLJnnSnoNmKnoP11Umc+PGNv nZgiv0TgAodqp7azn4jlmRr3 GoPvUZQjnxUjtStiOWL0x7VnYv 29H93iCTjoNAAsYEUyUYYiZHKh eMcthy6mkG0lYt8+PGNvbCB3 uGR6wA6gHXZtKkU8WDkmH827Cq CwwSAsMltft7glf6fowBs9UmDs FVXposNxnSevJUD5j6SpDq58 B97kIHizXPYlYEXzIELhTXCqtE amag1ycJ4eUg0+TB4qj8tqbo13 dR52kQC+KCAzRQX5kMvzUDca XMYnhY1rVDppQqD5FUOjUhAsgO 64xXVjZAflKr2sxEaomFbpES2u LFJmfdocm258HgGjs8hvEAVs oWYgCXcqPLX6R42oh9F2WKExHI TkQTQ7oBK4cU4fmTgbbqhzcDXp bWlsloBawVpkLGnyFXsjN123 IHRvcDsnPlBhdGllbnQgTmFtZT u7K6DnIum2BXLfoSsaZZ1hlBUj ATxeFm5gwPjxmAldUX5kRMTc dwxlt841UkHcs0bqYXGvbUTaZJ vtDME8U33ov8H3OUZvLXDcUXS1 lVN3hP9njKkyqfrzmPKwpVwb eoWgbOmdKSyfJIteL794QBIvgL awMyFxhaUtYVXolRV2BE26BH57 sFFht3J9qKZ6W5PeDGJtrlag egkelPM5EGOlIPNuoS28Fz9xsN vbRz0kNWQtVZE0DIFfkOIjY2Sg sT2kVfBpZHOxDOFyH6KclIUz OPppS096QYesBlQ2EQKpphDmA8 BoGBXnwAxkZzU5g3J5Zp1MF2L7 JQ89SS83nZVaq2G6vWR1W1Hl HIFzkebcxytljXY3VWWdUCNeqE 85Ri3mqOiyAp4yHVJdRNO0ZLOx yHCnJ2GsgR6aYbAhXVNnJGKp D4KcoHNfOJifJ711TWppJhF8IJ PypxViB4IzGZNgwQygJwF6c3A2 Wn4NFVh5OP85FO60hSVzl9O4 iBV0L2WrZPBeiexkoquphAF9IP GaQNGzoT54Gm3neIilTf1dIOJx LMK7FVQtnEOnJ0LkiK7oDkMm GRZsUAHlA0YmvHYmTRjhI926DF vrYwL2OAFktsEbX6ExTGSdcNxx OpC8u1W9Xt4CHYYjKR27OIV8 sIE6ZF09EX99M1GlOtaygSWoiY U+PHRhYmxlIHdpZHRoPScxMDAl YxYvnQibBD8xZm9wISVwKGNg fKkicQEbTtSqp6mjBEOvPIwcSX 7euViwV2KopIE7YUFoa3n7Is85 K36iI2BckJA+JMYmmEF4jRI9 hE7fEwBkIdH0WTocZ873OzNseH BsDjxyq5evz1mtfTl1FsD6FWZf wpUozFjyBNG1u1GlXe80Y96x IHdpZHRoPSIxNSUiIHZhbGlnbj 7zoD9eGm4+FPLgcLP8mXG9aU6r FiIuHwX1LCnxL942ZeWvuBLh Lquei1hwk4akrGj3HwDkQDPpwe HoyAvjOVA0x3CqAp45C0NuyTve b7VrKjz6cn20jLJwx7J0nAF4 U0ScTITecdftzEFswYhnMH1uNX VkigwyTCEzoE3pBTCtZ1z4BvSo PdA8IJcpL5XqsgY5QYLxwZFq EMwpGAO8N82bf9J1MJVjOESyYK Q5fRD2dF8ncLtnhdctvUYssWva urJkvMefXZrlVFvxX077SSAs oKybMZJrbU1wKPSufSZaoJvxKM 5jNVElreleNjXQP5VOG5EiDEQY RWNOT3aBEH37PS22qGIwb8B0 uFU2A6ZzCLGaznvcqxrawKW0ZH FgYWXpeE85eNIvGPuoPn5sy9B0 a330NZTaCSNvdT94Ap2yeBxw STImrHXXyU6kxgyxj7vfwconHa EkRKDfYEi9JSt1DUPnoFxqNoEt NFS2GkT3ZAH7mWLbuD2ueEur ucsxrG5tQmu+BYPkWQWaIPf6Kk wvdGQ+TBHlXGX6xEgmBTvyBKEp dR3lGVHlY6l0LsHgLrM6BCeg G8WpMIBbfbfzDt71oJ5nLoAaSk E3FYtpL2JbhnE1LPGskBIfPBog UPS5Q31ku1V4KJKbMZKeWYM0 zFF1hD6ttXrfkestdQBvpZxndu UwdOtpLJewHKakI771IDXeyFvd Rat1WOcrHSRjXM50RT16cYAk j0F3sVB5K1FfOADgskiizcpzpR M1DCKnIXNogW72sDCqETvuVb1u a5N5h216GOMzJGRbzZ56Ck6h uMteAFBkkYJBkK2vrxouj9ljif epCaXfQAJfSHu6KZm2IEZitEie KbIqXFO7JjQ1OKN9fWWelU6m hDmuhrhapI0lGyx+RmVtYWxlPC 39CC18wGCfn6F0eBZ6N7TsJLTl glfbgyqqjIB2LPXwEAUkuB36 iNPcAZczEg8ni7A9p686WYWlJT RjlM16Cg5ptPefVDXjoGLOpC3m hctkb6gpeubyPqMdHMNkHQe5 SNt4GSLhsOomIiThKLO4DvV3LB V0mWYxgW0tmDfgpeubdW8dDus+ EK0cqHhxhZ8bcH2DNX7cJGGg kPKHkWKtMNS5YM71CH98P3MjQn wvdGFibGU+PHRhYmxlIHdpZHRo NAgnOWDxHfSepNntKC7yNr7e BYDuSCQmdYllqKLbHpMdu2grMQ TcLQalGU7mqXxqP1ZtfCY7YHUo x3o8Ux93C03mJ0BlvKK+PGNv dAO0qMR8tT0cStHbAvT7AKggD5 70MiWxwJOjGuztv7yxb3cmpMg9 VaJgRHXgioStaZoxKZV1f3Zu In65H11hBLzeMRDlFSIaXHNeSE SmiNeoxp8buM1zNd1+PGNvbCB3 jCM6rN1lUpUmUxD0GSxrN219 PeLdrOXjEmmpB06cX3DbbQF+PH HaLws9LTMhjFcrSA5lrFNoFEsd Pr8dBWL4FyMkYxGgSBwbF7Ah WXEttjuovlxmrRF8VXBnAACznE 74Yg3ziIpvXz0eEZHwRCU9ZFGd mSKyT0IddR0dXhHaWUEyTYOp B8UnpWWoLNrxI712FBiaFiW1FN PkomIqI2KvNIArjYdpQaL9q3C0 Qx7OcImxjGSaSU2kMlLhJLx5 P4PhSbr8BFPjsKjmDO0lcVIgBR doJh8krJnjmVmwUT6dAJGbtbpj k626NyUeo7yvWURetRKxJPsc IVT6M75bi9R1ZZEyFBTnRWD0jY B6uM7eiQubqhrfpEEulTmaywYj wTqfLOvuCWxkW794IMGqnDde PiSBGfq6I8MbEva3UVWqpKvmQN 1dqHBoZAqjTt8bgHowcBgqKL3w SKYmnljqv260LbDwg1icMMFs tSLkBTvqQBC8Y65jp3V0ZPCsKR KhFPF1jIH2eD3ywAxizibvpNTi vTkwzoZvcSmlEPuoWAjbN669 FICqgBdbHo0TUod0F2JrTrb2XS KsdQhjTS2zzLBcRYmnRo5wnGfy fAvdLX8cVBKtbdsmf057FrHq e4hdVDMoqYElPDevXNB4A08hq8 D4PZVcSTHjZKT6gFQ4eZ6ceDaq bjogbGVmdDsgdmVydGljYWwt JGpaX221FZFtaIrgUmXqaTNcGf wvdGQ+JJ18ib18V8EaIwmqGyr7 JISvLNI4gOG7uD5cPREiPGbs c3R5 (more content not included)... Normal [facility] Consultation Noteon 02-26-20 Consultation Note Patient: [...] STABLE AND NO WORK UP NEEDED Normal [facility] Comment on above: Result Comment: Elec tronically Signed By: Lisy ERIC, Nick Cheema\.br\Date and Time Signed: 02/25/22 14:40 EST Discharge Instructionson Discharge Instructions [id number]:127 Normal [facility] Inpatient Clinical Summaryon 02-25-2022 Inpatient Clinical Summary [address] [address] Clinical Summary Person Information: Name: ADINA PERRY Age: 81 Years : 1940 Sex: Female PCP: ADRIANA CRUZ DO Marital Status: Race: White Ethnicity: Non- or Language: Bermudian Visit Id: Visit Reason: Fatigue; Post surgical problem; ABD PAIN, ABNORMAL CARDIAC ENZYME LEVEL Speciality: Acuity: Enc Type: Observation Med Service: Medical Arrival: 02/24/2022 13:07:19 Discharge: Dispo Type: Admitted as IP to this Hosp Address: [address] [place] [address] [place] [id number] Provider Notes: Diagnosis: 1:Abdominal pain; 2:S/P hernia [...] Percocet (Nausea) Darvocet-N 100 (vomiting) oxyCODONE (Vomiting) Sopchoppy (Vomiting) Measurements: Height: 146 cm Weight: 49.7 [...] Follow up: With: Address: When: ADRIANA CRUZ [address] [place] [address], [facility] [address] [place] [address] [facility] (1) 03/10/2022 11:00 AM Comments: Appointment will be with the STOCKROOM WORKER With: Address: When: aJy Power 03/03/2022 9:00 AM Comments: Call for followup appointment 2-3 weeks or if already scheduled keep appt. Type Location Start Finish State Post Op 15 [facility] [place] 03/03/2022 9:00 AM 03/03/2022 9:20 AM Confirmed Patient Education Information: Weakness; Abdominal Pain, Adult, Oahy-ix-Gswv Normal [facility] Inpatient Patient Summaryon 02-25-2022 Inpatient Patient [...] EST With: Jannet ERIC, Jay Lock Where: [facility] General Surgery [facility] Inpatient Patient Summary ADINA PERRY :1940 [...] Follow-Up Appointments Thursday 9:00 AM EST With: Jya Power MD Where: [facility] General Surgery [facility] Inpatient Patient Summary [address] [address] Patient Discharge Instructions PERSON INFORMATION Name: ADINA PERRY Date of : 1940 Current Date: 02/25/2022 15:24:21 PHYSICIANS Admitting Physician: MELI ERIC, [facility] Primary Care Physician: ADRIANA CRUZ DO PCP [...] Follow up: With: Address: When: ADRIANA CRUZ [address] [place] [address], [facility] [address] [place] [address] [facility] (1) 03/10/2022 11:00 AM Comments: Appointment will be with the STOCKROOM WORKER With: Address: When: Jay Power 03/03/2022 9:00 AM Comments: Call for followup appointment 2-3 weeks or if already scheduled keep appt. In the event that this physician does not participate in your insurance network, please consult with your insurance company to find a nearby participating provider. Type Location Start Finish State Post Op 15 [facility] 03/03/2022 9:00 AM 03/03/2022 9:20 AM [...] ? Stre (more content not included)... Normal [facility] Interdisciplinary Note - Reji e Manageron 02-25-2022 Interdisciplinary Note - Bedspread Cutter CRM to room to discuss DC planning. [...] DC later today or 02/26. CRM following [facility] Comment on above: Result Comment: Elec [...] home safely and independently once medically stable. [facility] Main OR Intraoperative Recor don 02-25-2022 Main OR Intraoperative Record [facility] Monitor Recordon 02-25-2022 Monitor Record [id number]#[id number]:[address] [facility] Monitor Record [id number]#[id number]:[address] [facility] Postoperative Documentson Postoperative Documents [id number]:127 Normal [facility] Troponin 9 Hr.on 02-25-2022 Troponin I.cardiac [Mass/Vol] 90.10 pg/mL Abnormal 10.10-27.1 0 [facility] Comment on above: Result Comment: Crit [...] High Sensitivity Troponin I Instructions For Use, [employer], November 2017) Performed By: #### 1 [id number] #### [facility] [address] [place] [address] Auto Diffon 02-24-2022 Basophils/100 WBC (Bld) 2.8 % High 0.0-2.0 [facility] Comment on above: Order Comment: Order Added by Discern Expert. Performed By: #### 1 2076322, 3191633, 0864243, 6802027, 86249215, 2046450, 5287550, 0707105 ####[facility] [address] [place] [address] Basophils/Leukocytes Auto (Bld) [Pure # fraction] 0.2 E9/L Normal 0.0-0.2 [facility] Comment on above: Order Comment: Order Added by Discern Expert. Performed By: #### 1 9473667, 4281308, 0395563, 7451279, 19349089, 6288334, 1851502, 2873014 ####[facility] [address] [place] [address] Eosinophils/100 WBC (Bld) 3.6 % Normal 0.0-8.0 [facility] Comment on above: Order Comment: Order Added by Discern Expert. Performed By: #### 1 4183868, 9434514, 6974792, 6592428, 40116605, 4923666, 0267546, 2141560 ####[address] [place] [address] Eosinophils/Leukocyte s Auto (Bld) [Pure # fraction] 0.3 E9/L Normal 0.0-0.5 [facility] Comment on above: Order Comment: Order Added by Discern Expert. Performed By: #### 1 2521305, 6835260, 7917544, 8374268, 07419986, 3071807, 6754976, 1816526 ####[address] [address] Lymphocytes/100 WBC (Bld) 12.3 % Low 14.0-50.0 [facility] Comment on above: Order Comment: Order Added by Discern Expert. Performed By: #### 1 5078083, 0874425, 8405692, 8577113, 79970124, 4928112, 0130422, 1564807 ####[address] [address] Lymphocytes/Leukocyte s Auto (Bld) [Pure # fraction] 1.0 E9/L Normal 1.0-4.0 [facility] Comment on above: Order Comment: Order Added by Discern Expert. Performed By: #### 1 6476191, 2647180, 1345898, 4422484, 24647672, 1936802, 0739794, 5503447 ####[address] [address] Monocytes/100 WBC (Bld) 7.4 % Normal 4.0-14.0 [facility] Comment on above: Order Comment: Order Added by Discern Expert. Performed By: #### 1 2787086, 6067210, 3584763, 4793346, 90087226, 6504083, 1911976, 3433006 ####[address] [place] [address] Monocytes/Leukocytes Auto (Bld) [Pure # fraction] 0.6 E9/L Normal 0.2-1.0 [facility] Comment on above: Order Comment: Order Added by Discern Expert. Performed By: #### 1 6160238, 5542057, 1858709, 1918528, 05378562, 1014597, 5752679, 8651584 ####[facility] [address] [place] [address] Neutrophils/100 WBC (Bld) 73.9 % Normal 36.0-75.0 [facility] Comment on above: Order Comment: Order Added by Discern Expert. Performed By: #### 1 5536510, 9361888, 2141605, 2866859, 82874363, 0086710, 7420639, 9796342 ####[facility] [address] [place] [address] Neutrophils/Leukocyte s Auto (Bld) [Pure # fraction] 6.2 E9/L Normal 2.0-7.5 [facility] Comment on above: Order Comment: Order Added by Discern Expert. Performed By: #### 1 8749149, 9136892, 2219576, 6012089, 57018378, 4593635, 9897407, 5004914 ####[facility] [address] [place] [address] BMP 02-24-2022 Creatinine [Mass/Vol] 1.1 mg/dL Normal 0.5-1.3 [facility] Comment on above: Performed By: #### 1 7550947, 2332798, 9319052, 2686838, 08298554, 0605815, 3578050, 7461899 ####[facility] [address] [place] [address] Urea nitrogen [Mass/Vol] 18 mg/dL Normal 5-21 [facility] Comment on above: Performed By: #### 1 6507490, 5023263, 3210215, 7610469, 90373218, 0593843, 5874988, 6925492 ####[facility] [address] [place] [address] Urea nitrogen/Creatinine [Mass ratio] 16 No Units Normal 10-20 [facility] Comment on above: Performed By: #### 1 3758069, 5928237, 2275789, 2929480, 58517142, 1519958, 0969763, 7906177 ####[facility] [address] [place] [address] Anion gap [Moles/Vol] 16 mmol/L Normal 6-16 [facility] Comment on above: Performed By: #### 1 9853672, 7151509, 6638228, 4512737, 07024847, 3436576, 2412711, 5625308 ####[facility] [address] [place] [address] Calcium [Mass/Vol] 10.5 mg/dL Normal 8.9-11.1 [facility] Comment on above: Performed By: #### 1 9385191, 0565229, 8963449, 3359197, 16059653, 4249604, 6376107, 2398271 ####[facility] [address] [place] [address] Chloride [Moles/Vol] 97 mmol/L Low 101-111 [facility] Comment on above: Performed By: #### 1 2287104, 2078736, 0724542, 8385253, 08924705, 9932663, 4351286, 9834564 ####[facility] [address] [place] [address] CO2 [Moles/Vol] 28 mmol/L Normal 21-31 [facility] Comment on above: Performed By: #### 1 3579786, 3262223, 3929532, 6125672, 85344537, 2466013, 7334613, 4789477 ####[facility] [address] [place] [address] Glucose [Mass/Vol] 137 mg/dL Normal 55-199 [facility] Comment on above: Result Comment: If t his glucose result represents a fasting glucose, interpretation should refer to the following reference range: 55-99 mg/dL Performed By: #### 1 4190009, 5745211, 6673057, 0947869, 54499600, 5129547, 2135236, 0776415 ####[facility] [address] [place] [address] Potassium [Moles/Vol] 3.5 mmol/L Normal 3.5-5.3 [facility] Comment on above: Performed By: #### 1 5585727, 5252666, 5913484, 8197854, 89669286, 0689870, 6140927, 2445994 ####[facility] [address] [place] [address] Sodium [Moles/Vol] 137 mmol/L Normal 135-145 [facility] Comment on above: Performed By: #### 1 2003970, 7280733, 8186013, 6357520, 13783599, 8732765, 0722907, 2106715 ####[facility] [address] [place] [address] CBC w/ Auto Diffon Erythrocyte distribution width (RBC) [Ratio] 13.4 % Normal 10.9-14.2 [facility] Comment on above: Performed By: #### 1 7033624, 3341954, 4812509, 2064657, 23401624, 2190836, 9322233, 8659087 ####[address] [place] [address] Hematocrit (Bld) [Volume fraction] 39.5 % Normal 34.0-46.0 [facility] Comment on above: Performed By: #### 1 8310358, 9117734, 5058043, 8034839, 74381677, 5685388, 0391821, 4825534 ####[facility] [address] [place] [address] Hemoglobin (Bld) [Mass/Vol] 14.1 g/dL Normal 12.0-16.0 [facility] Comment on above: Performed By: #### 1 4393471, 1022102, 1518916, 4170394, 09876008, 5794159, 3320345, 1840377 ####[address] [place] [address] MCH (RBC) [Entitic mass] 31.2 pg Normal 27.0-34.0 [facility] Comment on above: Performed By: #### 1 2782063, 8402887, 9937441, 9868909, 19540832, 1586732, 2254464, 6044112 ####[facility] [address] [place] [address] MCHC (RBC) [Mass/Vol] 35.7 g/dL Normal 31.4-36.0 [facility] Comment on above: Performed By: #### 1 7153973, 3330555, 3808188, 6166377, 68492665, 0013326, 3802636, 3436003 ####[facility] [address] [place] 3049557 MCV (RBC) [Entitic vol] 87.4 fL Normal 80.0-100.0 [facility] Comment on above: Performed By: #### 1 4207626, 0329371, 6063318, 1574242, 10214157, 1652912, 4023687, 2475362 ####[facility] [address] [place] 3049557 Platelet mean volume (Bld) [Entitic vol] 8.3 fL Normal 6.4-10.8 [facility] Comment on above: Performed By: #### 1 6691409, 3996554, 1119064, 1010755, 56864756, 4211837, 5424538, 9737612 ####[facility] [address] [place] 3049557 Platelets (Bld) [#/Vol] 295.0 E9/L Normal 150.0-500. 0 [facility] Comment on above: Performed By: #### 1 2547434, 8633028, 8512285, 2870022, 47300628, 0006988, 4467200, 7629840 ####[facility] [address] [place] 3049557 RBC (Bld) [#/Vol] 4.5 E12/L Normal 4.3-5.9 [facility] Comment on above: Performed By: #### 1 9411480, 8519681, 3936329, 7715181, 12674661, 9831492, 2490566, 5265724 ####[facility] [address] [place] [address] WBC corrected for nucl RBC Auto (Bld) [#/Vol] 8.4 E9/L Normal 4.0-11.0 [facility] Comment on above: Performed By: #### 1 2921347, 0520365, 6028125, 4983250, 58609959, 1092613, 2333963, 5386413 ####[facility] [address] [place] [address] CT Abdomen/Pelvis w/ Contras ton 02-24-2022 CT [...] 81 Rectal Contrast Given? No Normal [facility] CTA Cheston 02-24-2022 CTA Chest [...] FINAL REPORT (more content not included)... Normal [facility] Consent for Treatmenton 02-05 Consent for Treatment [id number] Normal [facility] ED Clinical Summaryon 2021 ED Clinical Summary (Inserted Image. Elvia ble to display) [place] [id number] ED Clinical Summary Person Information Name: ADINA PERRY/[facility] Age: 81 Years : 1940 Sex: Female Language: Bermudian PCP: ADRIANA CRUZ DO Marital Status: Visit Id: Visit Reason: Fatigue; Post surgical problem; [id number] PAIN Speciality: Acuity: 2 Enc Type: Emergency Med Service: Emergency Arrival: 02/24/2022 13:07:19 Discharge: LOS: 000 05:49 Checkin: 02/24/2022 13:07:19 Checkout: 02/24/2022 18:56:59 Dispo Type: Admitted as IP to this [facility] EVENTS: Event Name Event Status [...] 02/24/2022 18:56:59 02/24/2022 18:56:59 02/24/2022 18:56:59 ADDRESS: [address] [place] [address] [address] [place] [id number] PHYS DOC NOTES: MEDICAL INFORMATION: Prescriptions Given: [...] Abdominal pain; Abnormal cardiac enzyme level Normal [facility] ED Note-Physicianon 02-25-20 ED Note-Physician Basic [...] is known to Dr. Wasserman from [facility] cardiology. She also stated that previously [...] puff(s), Inhalatio (more content not included)... Normal [facility] Comment on above: Result Comment: Elec tronically Signed By: Jay Emery DO\.br\Date and Time Signed: 02/24/22 17:27 EST ED Patient Education Noteon 02-24-2022 ED Patient Education Note Normal [facility] ED Patient Summaryon 022 ED Patient Summary (Inserted Image. Elvia ble to display) [place] [id number] Patient Discharge Instructions Person Information Name: ADINA PERRY Age: 81 Years Arrival Date: 02/24/2022 13:07:19 Discharge Diagnosis: Abdominal pain; Abnormal cardiac enzyme level Primary Care Physician: ADRIANA CRUZ DO Provider Information Primary Provider: Jay Emery DO Advanced Engineering Intern:None The exam and treatment you received in the Emergency Department were for an urgent problem and are not intended as complete care. It is important that you follow up with a doctor, nurse practitioner, or physician?s virtual assistant for advertisers for ongoing care. If your symptoms become [...] opioids can be used to help relieve tcoftyrc-cf-ghoaaz pain and are often prescribed following a [...] be struggling with addiction, tell your health animal caregiver and ask for guidance or call [facility]?S National Helpline at 5-501-698-TLTJ. d Source: [place] Department of Health and Human Services/Center for Disease Control & Prevention [facility] Medications Given: Med (more content not included)... Normal [facility] Hep Func Panelon 02-24-2022 Albumin [Mass/Vol] 4.4 g/dL Normal 3.3-5.0 [facility] Comment on above: Performed By: #### 1 [id number], 8025085, 5467250, 2667755, 07321719, 0093118, 5337196, 9329059 ####[facility] [address] [place] [address] Albumin/Globulin (S) [Mass conc ratio] 1.3 Normal 1.1-2.2 [facility] Comment on above: Performed By: #### 1 0487988, 8640570, 2908377, 9056302, 00570804, 6744382, 4775788, 5039371 ####[facility] [address] [place] [address] ALP [Catalytic activity/Vol] 72 Int._Unit/L Normal 21-98 [facility] Comment on above: Performed By: #### 1 6386453, 3036785, 8494314, 3445601, 71763843, 9808437, 2828293, 4204824 ####[facility] [address] [place] [address] ALT No additional P-5'-P [Catalytic activity/Vol] 16 Int._Unit/L Normal 6-46 [facility] Comment on above: Performed By: #### 1 8552895, 9462234, 6576561, 4309374, 23685002, 3996466, 9520567, 4686928 ####[facility] [address] [place] [address] AST [Catalytic activity/Vol] 18 Int._Unit/L Normal 5-43 [facility] Comment on above: Performed By: #### 1 6104055, 3412028, 3499396, 9603488, 74292715, 3753330, 9252731, 4888567 ####[facility] [address] [place] [address] Bilirubin [Mass/Vol] 0.7 mg/dL Normal 0.0-1.1 [facility] Comment on above: Performed By: #### 1 1890814, 1171755, 5939792, 7408720, 54000395, 9228672, 7192702, 3086287 ####[place] [address] Bilirubin.direct [Mass/Vol] 0.1 mg/dL Normal 0.1-0.4 [facility] Comment on above: Performed By: #### 1 1405464, 7388770, 5513468, 7965021, 13240947, 2677577, 7400556, 6884311 ####[place] [address] Bilirubin.indirect [Mass or moles/Vol] 0.6 mg/dL Normal 0.1-0.9 [facility] Comment on above: Performed By: #### 1 7625288, 1227358, 6849925, 7616705, 52066249, 2968070, 7013282, 2538507 ####[place] [address] [place] [address] Globulin (S) [Mass/Vol] 3.5 g/dL Normal 1.4-4.0 [facility] Comment on above: Performed By: #### 1 5759567, 1111708, 5194827, 3478317, 96518693, 6638296, 9963815, 7224509 ####[facility] [address] [place] [address] Protein [Mass/Vol] 7.9 g/dL High 6.0-7.8 [facility] Comment on above: Performed By: #### 1 9490715, 8093446, 9132256, 7686539, 42055466, 1137353, 1314260, 4798463 ####[facility] [address] [place] [address] Lactic Acidon 02-24-2022 Lactate [Mass/Vol] 1.5 mmol/L Normal 0.5-2.2 [facility] Comment on above: Performed By: #### 1 6930001, 0170639, 1103516, 0413752, 47384781, 0424607, 0279951, 4577397 ####[facility] [address] [place] [address] Lipase Levelon 02-24-2022 Lipase [Catalytic activity/Vol] 43 U/L Normal 13-58 [facility] Comment on above: Performed By: #### 1 7987663, 3129722, 3645924, 4150222, 84693561, 1908587, 8854412, 5887326 ####[facility] [address] [place] [address] Monitor Recordon 02-24-2022 Monitor Record [id number]#1.00CD:127 Normal [facility] Monitor Record [id number]#1.00CD:127 Normal [facility] Operative Reporton Operative Report SURGERY DATE: 2021 SCALPER OPERATOR: Kylie Costa, Certified Side Framer INDICATION FOR SURGERY: The patient is a 81 year old female with previous abdominal hysterectomy performed in an open fashion in the presenting with a 2 cm incisional hernia that is symptomatic seen on computerized tomography scan from [facility]. She is here today for robotic [...] condition. Jay Power M.D. lr Dictated: 02/19/2022 [id number] Transcribed: 02/19/2022 Normal [facility] Comment on above: Result Comment: Elec tronically Signed By: Jannet ERIC, Jay Lock\.br\Date and Time Signed: 02/24/22 07:55 EST Troponinon 02-24-2022 Troponin I.cardiac [Mass/Vol] 105.90 pg/mL Abnormal 10.10-27.1 0 [facility] Comment on above: Result Comment: Crit ical Result I_hsTnI:105.[address] EMERY at ER by TIERRA ARMENTA and read back for confirmation at 02/24/2022 17:57:53 The 95% CI (Confidence Interval) PPV (Positive Predictive Value) for myocardial infarction in females is 38 pg/mL, in males 51 pg/mL. The results should be used in conjunction with clinical conditions of myocardial infarction. (Digifeye High Sensitivity Troponin I Instructions For Use, [employer], November 2017) Performed By: #### 2 475128 #### [facility] [address] [place] [address] Troponin 0 Hr.on 02-24-2022 Troponin I.cardiac [Mass/Vol] 96.00 pg/mL Abnormal 10.10-27.1 0 [facility] Comment on above: Result Comment: Crit [...] conjunction with clinical conditions of myocardial infarction. (Digifeye High Sensitivity Troponin I Instructions For Use, [employer], November 2017) Performed By: #### 1 1237285, 7600895, 4345298, 5403771, 02613591, 8190219, 3655310, 6657360 ####[facility] [address] [place] [address] Troponin 6 Hr.on 02-24-2022 Troponin I.cardiac [Mass/Vol] 105.10 pg/mL Abnormal 10.10-27.1 0 [facility] Comment on above: Result Comment: Crit [...] High Sensitivity Troponin I Instructions For Use, [employer], November 2017) Performed By: #### 1 7149433 #### [facility] [address] [place] [address] UA With Cult Reflexon 2021 Bilirubin Ql (U) Negative Normal Negative [facility] Comment on above: Performed By: #### 2 415789, 69390793 #### [facility] [address] [place] [address] Clarity (U) CLEAR Normal Clear [facility] Comment on above: Performed By: #### 2 006563, 73808663 #### [facility] [address] [place] [address] Color (U) YELLOW Normal Yellow [facility] Comment on above: Performed By: #### 2 783036, 84325507 #### [facility] [address] [place] [address] Epithelial cells.squamous LM.HPF (Urine sed) [#/Area] 0-2 Normal 0-[address] [facility] Comment on above: Performed By: #### 2 036407, 26934436 #### [facility] [address] [place] [address] Glucose Test strip (U) [Mass/Vol] Negative Normal Negative [facility] Comment on above: Performed By: #### 2 851397, 13758793 #### [facility] [address] [place] [address] Hemoglobin Ql (U) Negative Normal Negative [facility] Comment on above: Performed By: #### 2 592529, 05747484 #### [facility] [address] [place] [address] Ketones (U) [Mass/Vol] Negative Normal Negative [facility] Comment on above: Performed By: #### 2 521276, 26223052 #### [facility] [address] [place] [address] Weatherly.plasma/Lithiu m.RBC (Bld) [Mass ratio] 0-3 Normal 0-3 [facility] Comment on above: Performed By: #### 2 305968, 08113365 #### [facility] [address] [place] [address] Nitrite Ql (U) Negative Normal Negative [facility] Comment on above: Performed By: #### 2 384571, 59972618 #### [facility] [address] [place] [address] pH (U) 7.0 [pH] Invalid Interpretation Code 5.0-9.0 [facility] Comment on above: Performed By: #### 2 679314, 42638223 #### [facility] [address] [place] [address] Protein (U) [Mass/Vol] Negative Normal Negative [facility] Comment on above: Performed By: #### 2 217509, 05049868 #### [facility] [address] [place] [address] Specific gravity (U) [Rel density] 1.010 Invalid Interpretation Code 1.005-1.03 0 [facility] Comment on above: Performed By: #### 2 877698, 12516619 #### [facility] [address] [place] [address] Type of Urine collection method Clean Catch Normal [facility] Comment on above: Performed By: #### 2 211590, 30658013 #### [facility] [address] [place] [address] Urobilinogen Qn (U) 0.2 {Gemma'U}/dL Normal 0.0-1.0 [facility] Comment on above: Performed By: #### 2 170000, 75163952 #### [facility] [address] [place] [address] WBC Auto Ql (U) 1+ Abnormal Negative [facility] Comment on above: Performed By: #### 2 633675, 53459050 #### [facility] [address] [place] [address] WBC LM.HPF (Urine sed) [#/Area] 0-5 Normal 0-5 [facility] Comment on above: Performed By: #### 2 087058, 44117571 #### [facility] [address] [place] [address] XR Chest Single Viewon 02-24 XR Chest [...] DO Transcribed by: PRESTON Technologist: JOSEPH, Jd [facility] eGFRon 02-24-2022 GFR/1.73 sq M.predicted among blacks MDRD (S/P/Bld) [Vol rate/Area] 58 mL/min/1.73 m2 Low >=59 [facility] Comment on above: Order Comment: Order added by Discern Expert. Result Comment: eGFR is race adjusted. AA=. Performed By: #### 1 2936099, 8529349, 8716869, 3482546, 77573189, 3733293, 0741654, 2498875 ####[facility] [address] [place] [address] GFR/1.73 sq M.predicted among non-blacks MDRD (S/P/Bld) [Vol rate/Area] 48 mL/min/1.73 m2 Low >=59 [facility] Comment on above: Order Comment: Order added by Discern Expert. Result Comment: Java Jsf Developer serene kidney disease could be indicated at eGFR's of less than 60 mL/min/1.73m2. Kidney failure is indicated at less than 15 mL/min/1.73m2. Performed By: #### 1 2051749, 2003294, 5791294, 6846649, 70301143, 8916199, 3523796, 8711922 ####[facility] [address] [place] [address] Consent for Anesthesiaon Consent for Anesthesia [id number]#1.00CD:[address] [facility] Discharge Instructionson Discharge Instructions [id number]#1.00CD:[address] [facility] IntraOperative Documentson 04-22-2021 IntraOperative Documents [id number]#1.00CD:[address] [facility] IntraOperative Documents [id number]#1.00CD:[address] [facility] Preoperative Documentson Preoperative Documents [id number]#1.00CD:[address] [facility] Preoperative Documents [id number]#1.00CD:[address] [facility] Consent for Treatmenton 02-04 Consent for Treatment [id number]#1.00CD:127 Normal [facility] Inpatient Patient Summaryon 02-19-2022 Inpatient Patient Summary [address] [id number] [facility] Clinical Discharge Instructions PERSON INFORMATION Name: [facility]ERRY [facility][id number] PHYSICIANS Admitting Physician: Jay Power MD Attending Physician: Jay Power MD PCP: ADRIANA CRUZ DO Discharge Diagnosis: Comment: PATIENT EDUCATION INFORMATION Instructions: Post Op Patient Instructions - FT (CUSTOM); Laparoscopic Ventral Hernia Repair, Care After Medication Leaflets: Follow up: With: Address: When: Jay Power [address] [place] [address], [facility] [address], [employer] [place] [id number] [phone] Business (1) In 7 days 02/26/2022 Comments: Call for followup appointment MEDICATION LIST New Medications [employer] [facility] [address] [place], [place] [id number], [phone] acetaminophen-hydrocodone (S[place]choppy 325 mg-5 mg oral tablet) 1 Tablets [...] Milligram By Mouth every day. Comment: Normal [facility] Main OR PACU I Recordon 02-04 Main OR PACU I Record PACU Phase I Docum ent Type FT Summary Primary Physician: Jay Power MD Finalized Date/Time: 02/19/22 12:21:31 Pt. Name: ADINA PERRY.O.B./Sex: 1940 Female Med Rec #: [id number] Physician: Jay Power MD Financial #: [id number] Pt. Type: A Room/Bed: [facility] Admit/Disch: 02/19/22 05:56:04 - Institution: [...] 12:21 Pavithra Saeed RN 02/19/22 12:21 Normal [facility] Main OR PACU II Recordon Main OR PACU II Record PACU Phase II Document Type FT Summary Primary Physician: Jay Power MD Finalized Date/Time: 02/19/22 16:14:48 Pt. Name: ADA PERRYMADYSON Shipman/Sex: 1940 Female Med Rec #: [id number] Physician: Jay Power MD Financial #: [id number] Pt. Type: A Room/Bed: [facility] Admit/Disch: 02/19/22 05:56:04 - Institution: [...] By: Jennie Garcia RN 02/19/22 16:14 Normal [facility] Main OR Preoperative Recordo n 02-19-2022 Main OR Preoperative Record PreOp Document Type FT Summary Primary Physician: Jay Power MD Finalized Date/Time: 02/19/22 08:51:16 Pt. Name: ADINA PERRY /Sex: 1940 Female Med Rec #: [id number] Physician: Jay Power MD Financial #: [id number] Pt. Type: A Room/Bed: [facility]/ Admit/Disch: 02/19/22 05:56:04 - Institution: [...] Signed By: Olivier Loza 02/19/22 08:51 Normal [facility] Monitor Recordon 02-19-2022 Monitor Record [id number]#1.00CD:127 Normal [facility] Operative Reporton 2 Operative Report Patient: [...] reparations continued for the proposed operation.. Normal [facility] Comment on above: Result Comment: Elec tronically Signed By: Rk Moerno Jr., DO\Date and Time Signed: 02/19/22 08:20 EST Outpatient Surgery Discharge Instructionon 02-19-2022 Outpatient Surgery Discharge Instruction [place] [id number] Patient Discharge Instructions PERSON INFORMATION Name: ADINA [...] Follow up: With: Address: When: Jay Power [address] [place] [address], [facility] [address], [facility] [address] [place] [phone] Business (1) In 7 days 02/26/2022 Comments: Call for followup appointment Pharmacy Information: You may receive a survey from [employer] asking you to rate your care experience. Your feedback is important and will help us understand what we do well and how we can improve the quality of care we provide to you, your loved ones and our community. It?s an honor to serve you. Thank you for choosing [facility] HERE ARE THE MEDICATION CHANGES THAT OCCURRED DURING YOUR HOSPITAL STAY New Medications [facility] [address] [place], [place] [id number], [phone] acetaminophen-hydrocodone (S[place]choppy 325 mg-5 mg oral tablet) 1 Tablets [...] and water are not available, use hand psychiatric rn. ? Change your dressing as told by [...] ? Do (more content not included)... Normal [facility] Patient Education - Texton 1 04-21-2021 [...] and water are not available, use hand psychiatric rn. ? Change your dressing as told by [...] care provider approves. General instructions ? Take zcgc-dto-ryxvrjg and prescription medicines only as told by your health care provider. ? To prevent or treat constipation while you are taking prescription pain medicine, your health care provider may recommend that you: ? Take yofo-wcq-ftwsjma or prescription medicines. ? Eat foods that [...] 03/09/2013 Document Revised: 03/05/2018 Document Reviewed: 11/12/2016 [employer] Patient Education ? [address] [place] [facility] Progress Note-Physicianon Progress Note-Physician Patient: ADINA PERRY Age: 81 years Sex: Female : 1940 Associated Diagnoses: None Author: Rk Moreno Jr., DO Postoperative Information Post Operative Note: Post Anesthesia Care Unit. Anesthetic utilized: General. Health Status Allergies: Allergic Reactions (Selected) Moderate Percocet- Nausea. Severity Not Documented Darvocet-N 100- Vomiting. Problem list: All Problems BMI 20.0-20.9, adult / SNOMED CT 3110420534 / Confirmed Incisional hernia / SNOMED CT 035364618 / Confirmed RLQ abdominal pain / SNOMED CT 343975372 / Confirmed Ventral hernia / SNOMED CT 5966397554 / Confirmed Weight loss / SNOMED CT 330820979 / Confirmed Resolved: Anemia / SNOMED CT 108332401 Resolved: Fecal incontinence / SNOMED CT 939176030 Resolved: History of colon polyps / SNOMED CT 4134532642 Resolved: Nausea and vomiting / SNOMED CT 69322208 Resolved: Watery diarrhea / SNOMED CT 300623846 Physical Examination Vital Signs 02/19/2022 14:13 EST [...] able to self (more content not included)... [facility] Comment on above: Result Comment: Elec [...] Histories Past Medical History: Resolved Watery diarrhea (481979402): Resolved. Fecal incontinence (030212429): Resolved. Nausea and vomiting (02638961): Resolved. History of colon polyps (3589328405): Resolved. Anemia (332966096): Resolved. Family History: Heart disease Father Primary malignant neoplasm of lung Sister Diabetes mellitus type 2 Father Brother Procedure history: Colonoscopy ([id number]) on 01/17/2022 at 81 Years. Comments: 01/17/2022 11:03 EDT Yaz Becerra RN, Jennifer biopsies, diverticulosis EGD - Esophagogastroduodenoscopy ([id number]) on 07/06/2020 at 80 Years. Comments: 01/09/2022 16:[address] Colonoscopy (325087420). Comments: 01/09/2022 16:02 Rajwinder [address] 2010 Esophagogastroduodenoscopy (413290997). Comments: 01/17/2022 11:03 EDT - Hernan MILLS, Jennifer normal, gastric biopsies section (43226048). History of hysterectomy. (6647604652). CE - Cataract extraction (5327744832). Procedure on back (750867834). Arthroplasty of knee (37978879). Bladder operation (0179908636). Social History Social & Psychosocial Habits Alcohol [...] Auto 69.3 % Lymph Auto 20.0 % [place] Auto 8.7 % Eos Auto 1.0 % Basophil Auto 1.0 % Neutro Absolute 7.0 E9/L Lymph Absolute 2.0 E9/L [place] Absolute 0.9 E9/L Eos Absolute 0.1 E9/L Basophil Absolute 0.1 E9/L Glucose Lvl 94 mg/dL BUN 25 mg/dL HI Creatinine 1.2 mg/dL eGFR 43 mL/min/1.73 m2 LOW eGFR AA 53 mL/min/1.73 m2 LOW BUN/Creat Ratio 21 HI Sodium Lvl 140 mmol/L Potassium Lvl 4.7 mmol/L (more content not included)... Normal [facility] Comment on above: Result Comment: Elec tronically Signed By: Rk Moreno Jr., DO\.basia\Date and Time Signed: 02/19/22 06:44 EST Coding Summary.on 02-10-2022 Coding Summary. CD:[id number] Gh0bWw +PGhlYWQ+RL6COWRbT03gjNRxu R3PC4dMRO2AHYCGSWQUBJ7RHF4 hcQY9IIubT2PygdUm YzkrwMMqVZ47DIq0YIZ7vWtpIZ inbY4afSTpL5l8IoGjMQ12oI39 ZMolVYNhTsX1ObQctcqtbYHd O6dtIqMtuQJkVjg+PHRhYmxlIH evXYHuDXyrBWRjMpHkwJqjHG8a Mg9sZGIdUNNiqHvtzBBnHjGx c2wcDCUiFVtvEH9dyConK3WopT F7NRBlt8m0Mj75dUM+PHRkIHN0 pVruWZtdc311LtXxj4nhMNW6 gYGwGZjzCJL2B95nt3K8QMFdUF YqZEK8sZN6zH3qyQcgumwqC3Pp fUUhUeO9DFZ2nKApiB7kbWay lknkjG9zEve+I79HVA7ZPHCOOY 6FXai3T0DtOzxvtCE+JA39NGJg XX34uCNatFGlm5ywiNd2QiKk YKZqTXT9uMqdTItpc6DhMSHpK8 6grCUdy1O4EGPpiMnoyBJqSfLj fCH4sB6pHBjifaeqd1nazrtr Rkmum8aabl34vF70B39zHCsuUQ PaNNG9HSMkNTCiiNgifg9bvN2q Ii8+DEqoi7jqu0bezMv0MnXp FJLvwnUshOhhRDI3k6DkHi83R0 FquUhef3GoBsb7ks49aPDaj7D0 iRV5SOywNXBvvK4jBYclJoW3 IUPrJiFzkN70eWNaZKziEh1hnA zliBbbVZ1qIHYhbtevEKWlkE2x BMOplZIfkMkeOC9qMEMsdhpf q809OcZeTJX4PZDbiSJaB5VedT 3vFwRfQRHxAUGaN0YvoMPpOGrn F746YZvfNnZ4YNTlukBjI4Ql QWTmvQisSnE0y2F9Wb3Du6Yncs oaKLX9SRgcTHCvIoM8CgIoAmC7 G4EiEpf1EFLzvMgkDU9sR3Lu FGEgpywamtolbRE1EPMuUHIdaR 05gXKvNKtqGj0it7K9u018QFWr JPGazD22Fo1tuHpaPGVgzXQV oC6wzaiew7xnnckoBgWkZWWbNJ l8NKd1OSGzqPogEeTzRWQ1ZiV6 NXS8jVYgqY4fdRkzmtbouX6d Oyc+J84ggA1jKMU5TQQ0viqjUY CjqkVqCW92GX37B6HnUslfvADr bGU+TDLwbeLuwAbuWX4wNqNx u4suq3JlAMguV6JiKDNiFKjlSq x6JYGqMUC2wRV6xY2zQHTcYJzq f7O4cSV2W6WgcyRwds6jn5nm UTBlRBcoS28ekZGxx2F2TIBaxX G5LHZgcLldDnSqqB29Vgu+PGNv yIvcf7PgVwqdt5tcl2ipyZu7 LtGlIALkqgOkvFhyCAP1g0BySe 14C25lWEdcURBrUYBmNKOpUIAe wPyjfq1rmR8sGd6+PGNvbCB3 aTT5cP6yOHXbPxX5FAwwC518Mj HfuUNeClmiw5uri3gipPe9UhVt NWOfzuEdqJwsFCN5f0WcTz72 X81wTDvdULPrSGSiQGHrBKKscP vskf2irK6tKs9+DH8xl4kbrl09 lT25sBE+NDWsDEQ2xIddBUfh YXTwyP6tCAmgIeM8UOVfXxTlpY 30mTYlQVdtUm9wuIkjtFhpJP7u MGLbyjagi461EnQhd0qsFYUy uNUgUBukVTF2V48wt8M6MGElJB GsGZP1uYR5xO0uhUdijswnyLCx fFrgiaTmyNuwNNhdBWvfB319 IHRvcDsnPlBhdGllbnQgTmFtZT m5V6UtErq4TGBxeYxoBW0zoKWm YBzgJs0bqBfpvAckEP5uMXMb iaizm051QrVet7vzBUJtpYRwFT zrJPN9O61ih9X5ONGeJPEcKCB8 wXI4pJ3sxGshptqqqXCezJct wfOhkWioUSchWHumA151OIXxsN tlUjQqtdUwNVJkqKF4PB87GH68 fYFaq4E1zBN1C1StTJHwmoqk xpmliKR4ZSYiROPjmW39Iu7luL odAm4vDWWwGOA4KFWdnURgX2Ph kF9hDeZwPPPqQJJfE8DyvHPj FJecO057EKcfJeJ5NMGcxvKaQ3 PdUTNfnNysIbQ1d6Y3Xg1AG6Z2 PD12IR93oRRoz9L1fOT7A9Mg EKBbkpedzndjlOL3ZVCjJLLxlK 33Ju2haSkeRc8cGAKxYLA8CWUo qFTyL8UfyK6jDmLiRBUjUDJv M5TtfSHpOScfA210FSkpNfJ9EI CfscDyP2ZgVOTwhTlmIvF2n3M4 Ks5KUTk5UL20IE74oWZvm1P3 eAA8N7WzSNXjjmlbhrakpUX5ZG CuFWMjyO60Ah8zoNtyXt3yMHBj QDW0URBmwCXcK4AnoG9fTcMg WRAhOOVoW0NdyAIkJXzmF400WR gsDnA0VLFlhgNmN4BlDEMlvZvk SkW0k5M9Sg6OCQKxAW40DYV6 vDT9VU75MA86V1OvDndyxKXyqM U+PHRhYmxlIHdpZHRoPScxMDAl UnWyoQzfGX8nGo2bERZmUSDu kQsqbXSvBfWnt9pvFLPwUPrdKM 8vbZyfF0DftOW5MHOhd3z1Zy18 U40nZ8LorCB+NEQnzUI2xAH2 uE9jAtHdTuJ2THbeM943PlPxkT KiDtqca4pei7monBx0KlI8BFBq wdUynGxyDAJ3p1LdTf63D29l IHdpZHRoPSIxNSUiIHZhbGlnbj 5uoT9pQf2+IDXsjFM7rKI7mX7z KzVyQkF7HRqnP265SxDrdQKc Dvizt8laq0iamFv7CmPfYJSxcm CxhUwwZMG1s0AjYo36W8MczTgo d1TsMcd6eh29hEMdn0J4zEP2 A6RlVTYixlygiBUaeZvtMC6dTL OgiadxSSCarK6uPOYtY4l6DoZu QgT8RRzqT6NutkM8UXVwtUMk XVpdIVQ3I48yf2E7EQDxLUHlYW E9tEP1wW9daVfoqmaisJKsjPqp zxGemLlaPWgcWXrfB297TRMt qCjnGKJonN6vHJBpwCWcsTctZN 7hIHNvrzsiNsFKU8FLT6GkAYQL CHKSI3oGIH53QB56wGFmh3W9 sGD0U8FxNJOkykylcbrvmDM9LD InUSKtkY40rLOdGFxgSh6eh3T5 n905SVCbDOCptM19La9tgSpp DYHheHYTcB9cybqjz5igrivgLf RlWCIwOXy1XPd4PEPdoKmlTtEn IZL7AeG2FXJ8xVKxpW7siRuy pzkohT1pRer+DLPnOAVyFSv8Cd wvdGQ+DDZiITV3fQygHMooTJYa lW6yGILtZ6m1MyCyLtN5FCsy F2TaBVQjeyokOn90uI0jOlShQd X6MJdeH8OsfiN4ACJlmBXvKDay KBU8W25hz3Z3VDMyBHAtQXV1 eZY2hI7ebLyplhrbkOEdwTcpse LbmYjoPKnsOLeiK564VEUexTet Ikp1ACrpOPDmRP43UN95oHBm q8H6dPX9U8PaSZVlfrxenwchnX Z4XWSrSVStbG33iLUeWGsqDf2o p9F3k274JQTmGKGidL23Jr8n nPsrCBHchNYHtE8fiknvn7yrxx abVzHwTPPhSOe3DEi5HSDwpOtc OtHvTNS9HeR1AVB6dRXryA6u gGeptdmyzR0aOad+RmVtYWxlPC 82PQ04aINro7F4qUV9U6QqJHDs jogumhrsmQI3YCZnAIYcfQ25 wYRzMTsgYs1gq2P0w117CFYaVI UztS98Qp9weVdyFJHfmXAWqJ3s zqacr2crprabNqSuVOIkTLq6 CXo7RRFqrBnxLkJhMRW2JhY4VY S1kGZbnC8wvFnzimvlzK0lXtf+ V5A8jLH8wFOskDwuhJZ+PC90 pj39A4ZxTeohDhb2QTJzISG3lK T5lW9kMGGaYRlpp6W4nRN9N7Ss lsVfus4so0vkMWStACrgG53v mAFje4T3JNAvgOR0WZGmnXigTj ZixL31Fxw+WTSseVhxr3AgZhub l6kjf6lceDn5UnFsQMHqwfTi sQtkCKF5t2ChKb57D24tYRpkKW EcKDIuAUUwMUQzlFevcx4ccY1k Ii8+GQBkwPF2tVU6oJ8aHyHa UsV3FMxbB848ZcIyiFHmDzrom9 pow2sqsLj1AiOtOGYovxCmaUbp QCE1p1DpOd40Z7WpjRuuc5Et Czi1ej86mSXet7P4hXO7S0SsYG NdsrstsECndXrpSN0mSOIwytrt UERjhP2vFXPgA1d4DrHeLuI9 YYqtU3YjykA0VDYybFPvGYImxT UDiI4uqxngl4ywwbcgTcYlZMXx SYc9AMt6WYEogXblVrLrJRW4 UaS9DLK7lXKhvV6yvIwnurmcmE 9wOyc+MXt7o7nvuGVaXH5weRI4 PA79WO39nWMen8I3fKO9G8Hu RAZvarzvzchabRI1TQErOUWflS 77Vb8ziEseBt3mOEXtIPD7SDWw aWWxG9ShbR1wMeVzAWTsNKCl K0PmeHWzJBsxA595FCmsTyM4ND ZrrgFaU9LiNBRrxZnvYyE6p7R8 Ds9LVR80OM11IU60bIKmg7Y1 bKS1C4HfAXYfbytgucssaEG3LA McRWZrmW47Qa5zeIvwIo4mZTTk UGG7BZIimUBtA4HepG3oNiSp DWZqQKNkY0JbbDTkRHdfS876RF hsSuR7NTXqylKoC3OtJGVjiIhc MtK2w8B9Wu0FKz35YK90QT31 qFDmc5Z7rMC4X2TjPGYlswvdfi dovZG8HOJbTKYiaB62Zj4kmWbz Oi2ySLGmFNB2TWOzxYVwQ1Sj kJ8oQtWwSLZvONUfI5GypNRsQV wyQ390FMngSfL4MUTkxdCxL3Ck OJWwqLdhKdQ5c7L3Pv7GOBce rit9F4NiKiuspDI+AX54MCHfPJ 81hWAnxCQjr8yhcKh3JbYvZNOd ZQP5bGhcXVtkg9WoMJVjD36q bGFw (more content not included)... Normal [facility] Outside Recordson 02-07-2022 Outside Records [id number]#1.00CD:[address] [facility] Consent for Procedure/Surger yon 02-05-2022 Consent for Procedure/Surgery [id number]#1.00CD:[address] [facility] Outside Recordson 02-05-2022 Outside Records [id number]#1.00CD:[address] [facility] Consent for Treatmenton Consent for Treatment [id number]#1.00CD:[address] [facility] XR Chest 2 Viewson 2 XR [...] Araiza MD, V. Transcribed by: PRESTON Technologist: [facility] Consent for Procedure/Surger yon 02-03-2022 Consent for Procedure/Surgery [id number]#1.00CD:[address] [facility] General Surgery Office/Clini c Noteon 02-03-2022 General Surgery Office/Clinic Note Chief Complaint [employer] ventral hernia HPI Staff [employer] Adina is a 81 y.o. female [...] pelvis with IV with contrast performed at [facility], which showed a fat containing ventral hernia. However, on review of the actual report of that CT scan from 11/12/2021 at [facility], CT abdomen and pelvis with contrast to rule out diverticulitis. There was nothing mentioning a hernia in the body of the report nor in the findings. [facility] did not push through the images to our PACS system. I am unable to review these myself at this time. Our office is in contact with their radiology department to rectify this mistake. After calling and speaking with our radiology department and [facility], they have put the images through [...] Michelle to record this visit. ANA M immigration specialist and provider reviewed before signing. ANA [...] 30 mg, (more content not included)... Normal [facility] Comment on above: Result Comment: Elec tronically Signed By: Jannet ERIC, Jay Lock\.br\Date and Time Signed: 02/03/22 11:22 EDT\.br\Electronically Co-Signed By: Radha Mcgee\.br\Date and Time Co-Signed: 02/03/22 11:04 EDT Reminderson 02-03-2022 Reminders - From: Marly Riggins MA To: Marly Riggins MA; Sent: 02/03/2022 10:11:05 EDT Show up: 02/06/2022 10:10:00 EDT Subject: CT Imaging Reminder/Recall CT done 11/12/2021 at [facility] Spoke with [facility] and they pushed through the imaging Look at PAC Received imaging per Dr. Power [facility] RAD - CT Reporton 01-31-[address] - CT Report [id number]#1.00CD:[address] [facility] IntraOperative Documentson 1 IntraOperative Documents [id number]#1.00CD:[address] [facility] Postoperative Documentson Postoperative Documents [id number]#1.00CD:[address] [facility] Coding Summary.on 01-21-2022 Coding Summary. CD:[id number] Gh0bWw +PGhlYWQ+UG1RERLqZ55apRTqa O1FU9uKUY8ZXRPFCFAEAB5TSP1 ruQR4FPhjL5GpzlSr NdpjhZTeNL02IWo6TCP7hYffDH hjvZ8riHKaM5o2SvDpMB77jV55 EDmxAPQoOiY3JgZtugygqORd C8utPhQcnBUbQbw+PHRhYmxlIH lhLDGxYEuuLVLaDlJyrTuqKN5f Hg4vHZFgWUZvgCtnyLDoCyCy h1mwEXXdMXahJF4yzCeqN6LxxX B9FAPoa2h9Br42nCD+PHRkIHN0 nPevXStex075JkJij4ayINN1 yBRdQLwgXUW1E03zh4X4HUXhNV DpYUN9aSC1tZ1abHvbudhjI4Qv rZSyBqU5JWC0jOChxW2nzWil fhbyzY8fBov+Y59KLO9JVJQLOP 9MIrr5S5BqPgaoxCL+UY73UQIy AA64dFYjeSCjs9otcRz1ZyDc TCWiAJG7kCtfEEguc8ObFFCpL2 0lwBLji5T4AFJciIryvATpGwFp aVK0qE4mEXshzyary0rbgtwq Oxxte2qeac41dX80R82yZBmjJR PzQWV9JSTzECMigQfabf3xbN3o Ii8+GAhvi9qij4sgyNj3XsDk WCJampTbfVmeXNZ2u7KiRc67H3 UigVhak4DzUab8ot95qREtd0Q7 wBS9ZAdjOQKlmJ1zVEyyCbP5 FBBaZhYdtK78eXDdMTozBz0yeS qezDxeZJ5xAJAfwnllNMIekO3a JLLqeLYttFivKS8yTXLuvqiq e009BkCcTDD4XBFszOAuY3JelX 6lIvBnBJZjNWEuR6OczJAdTWma E791NBhsMvD4CHThjwPpL4Ev USQvaSgdPeC7o3B3Lm9Ff6Udtt amMJY7MVigZGWqVnY8EiPpFiI1 X1XhIem1RTDpbTbaAH8pU8Av JSDipeabawpwuZC6BABrKENvyD 63zHFoUMkqYr4fw5Z5b510ULUp SGInbE21Uk8iiAhtJCQjeAYP iF6cmrcab5bzxuzcKsXuABUnVD o9BPy4LARrxMwpDeOsWGW9BaQ7 SRI7qOSaeH9nrJbuspwobY1z Oyc+V21fbF3dDBI9GDE5hrxoFU EobcXpYJ21IU69M6MwLokzvADj bGU+MZIaiiSonFzfZJ0mGkQf k6wix4BtOFjjV7QdFSVaZIwmJb p2BHXgQZH7hDT9sZ4gQLWiHKei k3Y3fVF3A8HesdJkev9dk6jp FQPhFMulV91haJNzd6T1TPGldR P5TPMmbLxlIiClqN31Otw+PGNv fQevw5RgJksny0ytm5lejCs8 JkVrGOUlgjDqkCrhXDN9p8OeGo 93Q33pAZeiHOCbLUWlOYBwGCBv rPmpxm0jvC8aKp8+PGNvbCB3 jJB1oW6qTPSqTgR3EHgdX908Lt PluPOxJulhf9thw4mfzCg7FxHn NZYufxCccNqaYLV9k5XvWz95 F08pPXwxALEaLCTqKZJaVDZneZ qolq9sdR4zWs9+FR4ky5dgke63 sI43pRH+VLBoIAG1eDhqVGot OTQpfO6fOZqbPaD3GBSqAqJsfQ 05oQBzKTivZd8tdDfvdRneJX8q OXPutwjuy698OeKiq6xzVOTh eHBiRZpwFNQ6K04du8H5JCXnMB LzIUF1eJF3iN5waMhkfdxtpFJt uNbuzrXezGpbSNkkGTzeB176 IHRvcDsnPlBhdGllbnQgTmFtZT h8R5BhCbf2JWGxvOclUJ6beWPr NEjnNn3nxHqkuErhID8cTDDm pnhju185DnSde4fuACPxaWCkRZ dgBDD7A46ky6C7UTZoRHZcSCS9 bZV3yD4iuThcrvavpVTfmItv evJfsYlnKHrnQBxpI354XGGcmE szDcMgviJoYRKtvGZ3SI37JE07 fNAod6A5iYU6M5TmWWCpxsdb ohtmjWF3BMBlJKIgkQ73Cm5jdE rwQr4qCBNhBSU8UHTpmMBrF7Ny fN5jPuQeLZLjWPEsF9IbyXOl TUsiT602LIoyQoC8EAAlzaPeW0 TfUAMxkGkuNtX6z2P7Qo4IS5P0 JG16XQ27kBBza4O4tHS6A9Qm QAMcemyvbadxnZE8HFIkQLDbwN 45Ay6ncGpoFk1mAOHmPHQ3XQVu sSZdC4NiaI2qJpPiLBUcIBOe O7RdcWWaJPmxK856MAxnPcH2IW RswmLfD9JdHGKpqZzdJjY9k8R7 Kt4ROAa6SH45ZK56nBOqe7J3 pRK8X2CpPEQtlxbkiwupgBX8WH OlKKKigE33Tk0nlUhjMk8dFTQg KPD6PEOjlEGwB0WiuI5uFpFo NWRiHVAaF3SfyVXzVOcwV398GL rcXhY1JBFhwbBsM7QrQUKwuBdf QnW1c8B2Kb3TDXJqFD91CZX8 iEA7QO49SF39I7YaYixzpSSvlS U+PHRhYmxlIHdpZHRoPScxMDAl TvVybTipWS8lKm3qPYQtEAFc hIebrWNgAdNxf8xjKPAtJBjcYS 3irCqhY0VeyRF8TIJyf6z0Vh29 X28vX9XxeBO+PEVqdHV3mNJ4 aL2uQzFyGlZ4FFslV968HyWhfE TlKvwaa6lam8nraZn2UkI3ITZk gfCvyEvkEIQ1l6EsHk10N14g IHdpZHRoPSIxNSUiIHZhbGlnbj 9muK3hCn5+QGPaeUW8qXD5qK1t FdVxHwT0QRuqC810CmJhmYOj Akrvv8fwv0dksSd3JgHtSDAxmu DghKdyXQX7g2NgOn83C8OxtSyi r0OyCzc1nt77yULsh5U6mKM0 Z3NuTOQiqisvuSXstKfzKB8zIK NlndxiGXGxbV3bHBBnV5l5CpIt LsL2CGmwW2UsiiL2ZKKpcQRo XUgrHKX8J50hm2E7PPOcHEJlMD Z7jXH9bA2svEgppcltmUArpCqz vkBjaHtqXKuhVScwD539CJMo cEgpHHLtoZ3fVSHvcCCduYgnTS 0cSDGnsffmYhXOZ0MBP2IpAWGC KYXCX9jFTX80IY00pSMce8Y3 qSV8X9DkBJQgrzlljjiohTW1IX NoJWUtnZ28aUOhVVofOa4zu3R7 d266UWGjALQauD23Tv1fpBta XJWruORToV4hsfdsr1xwcczhXz MeJAZwDDu2IWw0QTRtwObbHcWa UZI4VxE6RMO1vMTskK0egKex vanocL9hXyy+LELzORZgOWq7Bg wvdGQ+FWSmBGW2zKlsAQilNDTa dG9hUNOgT9m3PwQmYiN6CFqp A5SeBTSwrzodGm24nM8qRmGlJt G8QLmtX0JmawU0SQHdpOJuPHpu ISV9U65ic5M3JDPbRSZzIJG4 mUT1uR0jwBwokqqsdZFtnOclox BnxFpkLOfzQDbdC982LDVfoYzn Rdp8NTzrJJTaBE29DR06iEOk g2Z9bDQ6R2JsFMKzouwrhofbfN D3QAQjRLAkyE39gKPpWSsgBf4k n8U7m980HAKoKGSglJ45Eg1i cZsmUAKjsRNIbS2oauvsp6rkqe elIfGnITHzKVu3IJg8CYSgyXta KzOcHFE1RjB4TDZ9vLWivQ5z iMgqyktwpF0rYdd+RmVtYWxlPC 52KR94zMMko2T4eDR3J4AdSZWc eesafpccmKJ5VKNmYYWudK58 xDDpVFqnBi7hb7V9m308JUNkAG EriI68Sc0ddSugMBLvuCPUpX4v phsrm2czidilQyAaSMNxCHt4 SKu5YKTbrRemUrIzEJS7ChX4EY Z6cZMquO5xxRlkhvprbF4kXrq+ R7E1lFX6yVImxMvkrKI+PC90 xv66F2XzWnosRfq8XBRmSNY0vX G1kG9yLSWzHUysl0C3eOI2Z9Sq hbMoyh6vo8huQYHqQPpbJ85z uKIwf9Z9AKIwlLM4KCDkpPjuZj VatJ24Kwb+JWWrnTcft2WnPtto m6xgo8svqIf8RiBiPICtuaZx sNatHBY8m9SyCi12Q32mAJwzPQ XsABRcLSMqSUHnwNyahf7mfT3n Ii8+UNThuRH5cZW5dA5zApLd JfN1WIptI897NoIyrHBuWrqef2 xdv8wycFq6VpTrSKLuydFsfUgs QHB7y4TpQw06E0UppIhcr2Es Teu5gx93zYPcy3T4iTS6T4WkCH WpchukyRZkpRuiIJ2zVEPsvlpw XJYylF1zLVGoL8y5RrReFgK6 VJdyG7TjuuH8TTHexLMtJONghD RJlF5ucxxhu3dmtyubEtNmDMLu PAd9UMf1YBNswPvwRvJxBFP2 UbQ2SFO0rRQgcT8igFmvawpsrW 9wOyc+JEn3h8xahEBpNK1lsLO4 ER22ME84wAXwh5L9dQU7W3Dy NUWcahkwjyasmQK8YDPuWJAwxC 46Ae3xdGtiAq9kJZFnZLR9TMGd fSZfJ3EujQ1qZuJtNRBdIIYo S2YutILwLJusZ482ZObaMfF1AH RjmbDdL8IeJEBamHenPtZ3v3M2 Gf2KXS19TP92MH57nSCko8A7 hWU1M6JlWZAzuoednkfyzDO9MU FgXYTltR62Tz7vmJtcTx4lPFIr WFV2AMXszEZtR6SsrK8gCtXu VERbYNGoT2OdmARdGEgkI083YF gnNhX5YNIkvnBgQ2FnANBtlKob UxP1i2M1Gb7UPo79OY63EU27 bEVya0S4eCE0X7UdOCDhrridja mrkFX1VJTeJEXnvI90Cw0vkHoh At2jTQDyAAI5NKJbnETtS8Ug kY8fSfAoVEOoFQBcN5MavKOhSW dgA973LHfbKpH2RQOsjrXvN3Kp RTDcgFybMtS7m9B9By4HQWig sum6G4HgFmgrqVQ+IS48WAZkDR 28bMIzkRTcn1kscRr9ZwHpRXOn FGM0uFiaMEedv9RxYYTmC24t bGFw (more content not included)... Normal [facility] Giardia, Direct, EIAon 01-21 G. lamblia Ag IA Ql (Stl) Negative Invalid Interpretation Code Negative [facility] Comment on above: Result Comment: Perf ormed at: [facility] [address] [id number] PhD Yolanda Jiang Performed By: #### 1 [id number] ####[facility] [address] [place] [address] Main OR Intraoperative Recor don 01-21-2022 Main OR Intraoperative Record IntraOp Document Type FT Summary Primary Physician: Jeferson COPE MD Finalized Date/Time: 01/21/22 11:55:08 Pt. Name: STIVENJenelleADINA /Sex: 1940 Female Med Rec #: [id number] Physician: Jeferson COPE MD Financial #: [id number] Pt. Type: O Room/Bed: / Admit/Disch: 01/17/22 [...] Craig RN, Michelle Fuentes Role Performed Anesthesiologist Escrow Representative - Primary Staff - Other Glove Examiner Time In 01/17/22 09:27:00 01/17/22 09:27:00 01/17/22 09:27:00 Time Out 01/17/22 09:55:00 01/17/22 09:55:00 01/17/22 09:55:00 Procedure EGD AND COLONOSCOPY(.) EGD AND COLONOSCOPY(.) EGD AND COLONOSCOPY(.) Comments Dr. Pennington is supervising Last Modified By: Daniel RN, Riddhi Sanchez RN, Riddhi Sanchez RN, Riddhi Maravilla 01/17/22 09:55:43 01/17/22 09:55:43 01/17/22 09:55:43 Entry 4 Entry 5 Entry 6 Case Attendee Elana Sethi SOFTWARE ENGINEER SALES, Jasmine COPE MD, Jeferson Alford Role Performed [...] and tissue Entry 1 Skin Integrity Intact, [place], Warm, and Outcomes Met? Yes Dry Last Modified By: Riddhi Sanchez RN 10/14/22 07:29:31 Post-Care Text: The patient is free from signs and symptoms of injury caused b (more content not included)... Normal [facility] O & P EXAM, ROUTINE, REFLEXo n 01-21-2022 Ova and parasites identified Concentration Nom (Stl) Comment Invalid Interpretation Code [facility] Comment on above: Result Comment: No o va, cysts, or parasites seen. One negative specimen does not rule out the possibility of a parasitic infection. Performed at: [address] [id number] PhD Yolanda Jiang Performed By: #### 1 [id number] ####[facility] [address] [place] [address] O & P Exam, Routineon 2021 Ova and parasites identified LM Nom (Unsp spec) Final report Invalid Interpretation Code [facility] Comment on above: Result Comment: Thes e results were obtained using wet preparation(s) and trichrome stained smear. This test does not include testing for Cryptosporidium parvum, Cyclospora, or Microsporidia. Performed at: [facility] [address] [place] [id number] PhD Yolanda Jiang Performed By: #### 1 [id number] ####[facility] [address] [place] [address] [place]enton 01-20-2022 Consent [id number]#1.00CD:127 Normal [facility] Discharge Instructionson Discharge Instructions [id number]#1.00CD:[address] [facility] IntraOperative Documentson 1 IntraOperative Documents [id number]#1.00CD:127 Normal [facility] Coding Summary.on 01-19-2022 Coding Summary. CD:[id number]:[id number] Gh0bWw +PGhlYWQ+JD2SGGUtV52keDCmh K3VY6wUGN2TNQJDOCGQQD1GAW5 syLV7AKpwQ3ZtvdJd RdlmvBKsBE59LKp1IUE5nCliRK opnO5bmXUyZ6i1MvPsJP90cL81 YXqlYYWxAjK1XgTuxmuhrZMp Z5chNxYerNSbSxe+PHRhYmxlIH epWUEgKZikYOXqKqWrnBdiEJ5u Xq4mONNpCSXxeUrzuUSxHtFm e8vjWEQwGNrdMJ5joNvuQ2DrrN F3EUJyg0d2Jp42hTU+PHRkIHN0 fUybATeru229MyQam6rhRFT2 hZLkWYehFZR9P45ud5N9CGOfRY PkEVT5cHW2dX4vjVoxvnjiT8Ow zIYxPzN5CKL2tWTfiQ3zsMed otsiaN6xCtb+H69NQA7YAXDPXH 2AEff4O5BeMjitmEQ+BK19KMDa ZG48cTZwhDRje5utrYr1VeGp BUBbIUI4xGdbXXgyn7NbZCHfX7 5rlREff4M7IBPnvIhofBDtPwZa yXI0xD5nNIzekimwu4rqdmnc Rooua3rqco02fU84M33pDXikQW WfDQD1LWRjJDGanIpfny2khS5u Ii8+BUnla8sjk9craQh1MaIx SUTyxbShcBilPNJ0o6VlLx81Z7 VygEqzv1MuVll3fx06kAGdf8C3 lZS8RFkcGUEigC9eLJdtLqO6 YHXmGfYcoU36cUKeSNffNx2duR bdjKwiKI1gWKWfmmjiPPSnyA1a ZRCccEOpgBteIT7rFTXxpluo p291OsOfYRI5AWGaaMBmM4TnxW 2mLmXaTBOfPQWeH1TwmGQoPZxu P603JPcdFnA9BQCbwyRcE6Nv BNCadNqaCnT9s1M6Rx7Yp3Mjxr kvTLW9EJnoGIIaZeV2WzOpYfT9 W2CuHzm5JJEymTvkNG0pC7Jl LBYaannjvqswxAG8AEDiJKSyxL 43vCDwUWpcWf7xd6O7u168RBWe NOEveW66Pu3hzZfwILHekFRB jL9zhhzkq7ykmfilHtEnGTXsML l2EKp9LBSibIkiRcLtAQZ6MmV9 SOJ0vPOloZ8dfOooofsltG8s Oyc+K81mtP6cCIZ5MXH2beeiHM GfuvNvDN24PT28X6NpUwieiOLz bGU+BAKkxaLkvWytJF0sVvNf u3sqq9QxRLioI9WnFNAaRTmaFg c1JWJdBOC8pZI9sW7dHCEgYJnv m7I9nVD7R8BmrhUdoz3fa1zh QNQhZRkuZ01khVJhs0L7BTTjlQ I7LFQdvZfvQoZfvC23Daj+PGNv zXdxw3LvFnodr3jqu9yotFx2 AbNuCYPmgcLxmHqeDTY5p1KjOr 60W30hMGdlGWKsOYUkUJRhUHDw jYwrop3kjY2nQr7+PGNvbCB3 zPJ5wF2bUHMbVcS7STelS912Zm BspCIdIxjvl2zfl9rfnRx0QzOh YJDwexJidWsjILN5k6DwUx06 T27rXWdmEHUfGVImQTFvSRTuvU urbm1vyV6lYd9+EE9qy8cbmc32 dF97aGL+VOZiAHI5eVxxXKco ERBjfD4hFEbmAgI0OANjZbNdvK 78cWKhNWxwRx0wtFhcuMtyFA2j LWTululge463ZeIjw9kjWUYw cQXfBBnmYMG2V32rn4G1FRRiQU ZxIWO8lNY1dL1zaUozfvpbtAZl oUmzruGjjZpoHBauXSapN391 IHRvcDsnPlBhdGllbnQgTmFtZT i1J2QoTxx5WBIfyWvjYF4adWQz CSztPd4kiGeezOegHB6mTGSp cibmf706XjPyl7oxTNWltQJpNK pzYOG0A75bj4I8IZLiWHCdILN7 gNL2eX1adXondnkyaOKnoKjr jbUisKbwFZhyFAzgK464TGSlzS zcGdFyalVdUKZkkIP5NB32FC80 yHLrn6Z5dQJ5A1AtYMPxrumi vmyuhID5HDApOBZvsT14Yj2eiX otGr2eZJUwIGF7MYLfkUVjX3Ny rL6dWlZyNQRyZXRzF0YbgKHu PUelR375QAwfQaI3WECqtuNxM5 UxZTRnvPirMvU8e2B2Or6WM8T0 FI26VP13kYGam9Q9cFW6O9Kd BZDmszglfftitFC1XHWyGNUkjW 83Jv1qcXngEe2zQQMdDNF8BLWf gFUvT1XseY9sTzHfXQMuPXBi R7JkbWAwZNadA114BLyiPaT5JA YweyNhR8SiQZTysZlkCrA9m1E8 Em4TOAb1TX91UN84jOChy5Q5 rJF8B3XdNTQtnkybzqpwkOS1EH TeYHQldS28Ch8jdCrqPt0pMHJn HYG8BXWzmZMgQ8PaeC6tPwZo ZFFaEEXmA3QezITlYXmvC292IO jrTcA2BIVhnhXeE1ZkBSYufEhk EsM5x6A9Up6UDBGrNL31NSP6 bYE4PL72JX97T7NwJvvodOGgpM U+PHRhYmxlIHdpZHRoPScxMDAl XdEtmPzfRR0fPf0lAGTaFHJu oUdvlERzHwNbj2myWRQpDZgbRK 2phKgmW3MfvCX0FOLpr5b8Zy18 P25nB4DpcNB+JQYaqGG7fNU4 cW5qBoWqOeS4BGzmR609OkQwqP IkQsswy9wjl0weiDr3YvR9VDUu tkFfaKvdVML5s1NgXp11L52q IHdpZHRoPSIxNSUiIHZhbGlnbj 2otC5cUs9+JANltKH7vYO5oV9w BiDtUoM3WYxkY095CwXzaDXm Iddnz5gwx3aioYq2ElXaBFHasj WrmMswFFX6e7IaXb10R3DcuEee v1OkXmu4ep00uYJug2S3lFM9 W0WkFAGdjifzaTBwvGxeDH7oNO NrlojfGSQiwZ5yFEUkD9u2DcJn XeA9ZOgvM3InlvH6COHltBFy IXdcUSR5H95bf2U6JQGoATKnLI X6hKV0jA8miWrkjqavrEMbhMmp piGdxJxlWJdyQHdpG512HFMv rSofXQZeiB6xTDVdiIPlhXlnOB 1yEUUdcsavHzSVP7NKQ1EsVIIC UOYEG4lIUA60MU80qHHrg4H8 eVN1Q8RsPHJzmcvxqxhijBK8WW GxANXdtW69zXCmINgvUs2us6V8 p125HRXwDPFnvA10Ir1foUhh XFHeaVQYwI0mocrdf4uybpetDj FwLMLaAXc2FVb6SUSijAbpAvTi AOZ0PqR6RVO1pIDebX1spPmi xxtrwL0cIej+QTBbGTBwJMb1Gc wvdGQ+MDRkOAD0eXmhCFddHHJt eW6tTZVrB7d3BwKwGhV1DTth K7MuGBIxfntaWu07pM7sUqUvDt O8ODpuR3MpqrX5NHGovYIlZEav AJL2S10yi9J3FUWaYWOkQTW3 wBW8eK5uqDlsokuutRQfwZoouc JquSurWBpvUQzsH074HJNruWsp Vrc9JGszYZNjDQ28OM11zXWw x1Q9pMW5W0UdSOUthlckxlpqnI P6RNAgIQDxgR77bRLxMNajSf6o c4I6i005MBZoWGSzlS62Oi8d mHviLLYphIZQqA5ycvpya8tczh uzIjAtLOYcKDa5LWm7ELEhbFeu MdCfNFZ0VqD7ZHB2wWWgiA0p jErhwjwmsI4wTgu+RmVtYWxlPC 43WM69uVZlw8A1jVU2O4EzQCKs wtgbbbahrUL8OILyVEHluE74 yMFjYHduTb6se4F5v627MAJpWQ FerW58Mn9svWhgCLTrgQBUzO5s nswqb0mltxdvOfFzAPJhNFp5 MDc3JFEmaFooPzZlGAK6PiV7JM Q8lRSfjN1eoMtuhcvlnY4wCmc+ QBOpVNCox0Emb8StBN05IZ30 X7HbDhdebITjmZD+PHRhYmxlIH azQCFwDEucRBJtGqQrfObgPP8o Jx1wYEDdHHTyxJcwvZZrHbRt z2cwSNWsYLwgPM3gdJioM1FhzM A4QOVeb1r2Qa79X06rT0WgxUX+ WZTasKW0lYG3sE8bMgVvOtN8 HHrlY532MpOgqVOfGwxkc0hyz0 gjhCp7FjOsDJMgjgGraBwjJGF4 h4DiWi77Q97qDZwgVIMyJFRq BSNgOUFnvZdjca3euC9aPy9+PG NxkAV9oAH0zI4cJfBoJpR1RBse J882ImNjtRFrDtrhB22xD7Xx dXA+RUGkOnk9MBZosMynJG5ijJ QvTFybMf8uTZS4NcCrLlFjUAez M6TlLXHaqodpvvuqsOP4ROQq JUClxI86Ve7ekAubBd8oDBFkAU B9LBBziTIeQ0XlpV8gUvPxWZEt EUEyF1OgvGXtUYqvV002AXbh TpL5JXOtyiQrF7XfSPXoeMgnVb S2d4U7Js2BfFpmvOOvBL4lEnEs PAf1W7DsPje5OWTtpJqeJP3h eBCoDAyoXe3faQikbFayPT0jRY Lxksoon481ZaSte4ibVSDohCKy FTwkWQF9J48si9A6GOPvXSQn GDZ9aOC5gO6ozYnqaqcuoGRvgP hmsuSwbCadGXqzOTiuS248QTPj lSsxDcWYTgz4P7AoSul7GYIv oRlbFD7ujKEnQPuhSs8xhKhdtZ yrZW1lMJNgythlj640TtPrz4ng GRWgyHNlUZcvOIE1T27yj1A0 RPFiHONzYSB2jRW4wQ5teIlhaa ogbGVmdDsgdmVydGljYWwtYWxp C901WBRcuPmsUq5JWkh5I8Ie Bxt3HLGtxGydZF9gqWRzNJwmOv 8sjLywiQlrNL0iSOAeqsmzn977 GcBdy6anEZNtvZKvACkgPKG9 I88rc8A1FEBeQSZqCAU1rRN2gS 1hbGlnbjogbGVmdDsgdmVydGlj PLmyHNyjF227TOJluWdqRqIy eWVyOjwvdGQ+NZ02er69D6MwEg hfGck0TKFnEGI3kMT3oM2iSWDf MLkce3L1bCX6A7FawgWzij6r b2xs (more content not included)... [facility] Consent for Treatmenton 01-04 Consent for Treatment [id number]:127 [facility] Endoscopic Procedure Report - Otheron 01-17-2022 [...] Follow-up in GI clinic in [address] [facility] Comment on above: Result Comment: Elec tronically Signed By: Jeferson COPE MD\.br\Date and Time Signed: 01/17/22 09:56 EDT Other Comment: Quyen vieira Attachment - attachment storage system not supported [id number] Can be [facility] Attachment - attachment storage system not supported [id number] Can be viewed in [facility] Attachment - attachment storage system not supported [id number] Can be viewed in [facility] Attachment - attachment storage system not supported [id number] Can be viewed in [facility] Attachment - attachment storage system not supported [id number] Can be viewed in [facility] Attachment - attachment storage system not supported [id number] Can be viewed in source systemMissing Attachment - attachment storage system not supported [id number] Can be viewed in source system Endoscopic [...] GI clinic follow-up in 2 weeks [facility] Comment on above: Result Comment: in [...] Return to activities:: After 24 hours. [facility] Comment on above: Result Comment: Elec tronically Signed By: WILLIAN ERIC, Jeferson\.br\Date and Time Signed: 01/17/22 09:55 EDT Other Comment: Quyen vieira Attachment - attachment storage system not supported [id number] Can be viewed in source systemMissing Attachment - attachment storage system not supported [id number] Can be viewed in source systemMissing Attachment - attachment storage system not supported [id number] Can be viewed in source system Inpatient Patient Summaryon 01-17-2022 Inpatient Patient Summary [address] [address] [facility] Clinical Discharge Instructions PERSON INFORMATION Name: ADINA PERRY PHYSICIANS Admitting Physician: Jeferson COPE MD Attending Physician: Jeferson COPE MD PCP: ADRIANA CRUZ DO Discharge Diagnosis: Anemia Comment: PATIENT EDUCATION INFORMATION Instructions: Upper Endoscopy, Adult, Care After; Colonoscopy, Care After Surgery Domoam (CUSTOM); Diverticulosis MAGR (CUSTOM) Medication Leaflets: Follow up: With: Address: When: Jeferson COPE [address] [place], [place] [phone] Business (1) Comments: office will call for follow up Type Location Start Finish [address] 02/03/2022 10:20 AM 02/03/2022 10:40 AM [...] cholecalciferol (Vitamin D3) sertraline spironolactone Comment: [facility] Main OR PACU I Recordon 01-04 Main OR PACU I Record PACU Phase I Docum ent Type FT Summary Primary Physician: Jeferson COPE MD Finalized Date/Time: 01/17/22 10:57:57 Pt. Name: ADINA PERRY /Sex: 1940 Female Med Rec #: [id number] Physician: Jeferson COPE MD Financial #: [id number] Pt. Type: O Room/Bed: / Admit/Disch: 01/17/22 [...] By: Jennifer Becerra RN 01/17/22 10:57 [facility] Main OR Preoperative Recordo n 01-17-2022 Main OR Preoperative Record Holding Area Document Type FT Summary Primary Physician: Jeferson COPE MD Finalized Date/Time: 01/17/22 07:57:32 Pt. Name: ADINA PERRYO.B./Sex: 1940 Female Med Rec #: [id number] Physician: Jeferson COPE MD Financial #: [id number] Pt. Type: O Room/Bed: / Admit/Disch: 01/17/22 [...] By: Regino Beckett RN 01/17/22 07:57 [facility] Monitor Recordon 01-17-2022 Monitor Record [id number]:127 [facility] Monitor Record [id number]:127 [facility] Outpatient Surgery Discharge Instructionon 01-17-2022 Outpatient Surgery Discharge Instruction [address] [address] Patient Discharge Instructions PERSON INFORMATION Name: ADINA [...] Follow up: With: Address: When: Jeferson COPE [address] [place] [phone] Business (1) Comments: office will call for follow up Type Location Start [facility] [address] [facility] [place] 02/03/2022 10:20 AM 02/03/2022 10:40 AM Confirmed Pharmacy Information: Destin Pulliam You may receive a survey from [employer] asking you to rate your care experience. Your feedback is important and will help us understand what we do well and how we can improve the quality of care we provide to you, your loved ones and our community. It?s an honor to serve you. Thank you for choosing [facility] HERE ARE THE MEDICATION CHANGES THAT [...] activities are safe for you. ? Take yewq-lrm-lsvylka and prescription medicines only as told by [...] 09/21/2012 Document Revised: 09/14/2018 Document Reviewed: 08/23/2018 [employer] Patient Education ? 2020 [place]. Colonoscopy Care After Surgery Please read the ins (more content not included)... [facility] Patient Education - Texton 1 [...] unsweetened, w/added ascorbic acid 1 cup 0.5 [place] 1 cup 0.7 Vegetables Cooked Green beans 1 cup 4.0 Carrots 1/2 cup sliced 2.3 Peas 1 cup 8.8 Potato (baked, with skin) 1 medium potato 3.8 Raw [place] (with peel) 1 cucumber 1.5 Lettuce 1 [...] IMMEDIATE MEDIC (more content not included)... [facility] Progress Note-Physicianon Progress Note-Physician Patient: ADINA [...] PACU when criteria met. Condition good. [facility] Comment on above: Result Comment: Elec [...] list: All Problems Anemia / SNOMED CT 279440096 / Confirmed Watery diarrhea / SNOMED CT 585141130 / Confirmed History of colon polyps / SNOMED CT 8356528664 / Confirmed Fecal incontinence / SNOMED CT 822829626 / Confirmed Nausea and vomiting / SNOMED CT 67080227 / Confirmed RLQ abdominal pain / SNOMED CT 751210701 / Confirmed Weight loss / SNOMED CT 032584066 / Confirmed, Active Problems (7) Anemia Fecal incontinence History of colon polyps Nausea and vomiting RLQ abdominal pain Watery diarrhea Weight loss Histories Past Medical History: No active or resolved past medical history items have been selected or recorded. Family History: Heart disease Father Primary malignant neoplasm of lung Sister Diabetes mellitus type 2 Father Brother Procedure history: EGD - Esophagogastroduodenoscopy ([id number]) on 07/06/2020 at 80 Years. Comments: 01/09/2022 16:03 EDT - Rajwinder Ho Dr Colonoscopy ([id number]). Comments: 01/09/2022 16:02 EDT - Rajwinder Ho [...] review: No qualifying data available . Plan [place] [employer] (ASA) physical status classification: Class II. Anesthetic Preoperative Plan Anesthesia: Monitored anesthesia care and general anesthesia possible. Anesthetic plan, risks, benefits, and alternatives discussed with the patient and/or family. Pt. and/or family present and agree to proceed as planned.. Risks discussed including heart, lung, nerve damage. Risks of bleeding, dental injury, hospitalization, and general injury discussed. . [facility] Comment on above: Result Comment: Elec tronically Signed By: Eliecer Pennington DO\Date and Time Signed: 01/17/22 08:36 EDT Coding Summary.on 01-16-2022 Coding Summary. CD:[id number] Gh0bWw +PGhlYWQ+GQ3TFHVzZ48rdEKjd P9QW8oHOY3LWAREHCTANW9PFN6 kjTF4BAnaW2NmliXc TbazyKQdNE75CWk9LUP8qPvwKA syzS6lrHIgP0a4BwGpWQ69pX44 GIeeHEGoLzT3IeZmmbbhzQGn U7fgLwUkhCQqJqo+PHRhYmxlIH xrBOXqRGmpKDZbIzIvbDwqOG0c Hf2cADPxRWKzoMjcxRFlWwNl k8orOHKrJSkvXC2oiVveQ4GepC H3BYMdh7n2Bp52xXB+PHRkIHN0 vUxgVTqlq742HiTjc5itUKE8 gVZaCNisIRI5T56rp9P0XARgMI KpLWW4wVE8nF3ewRddbnsqD4Me mKWtMqD8IKG9oFHajC6pmMtl tnfwaN9aWtg+G59BNG3KSVXBNE 6MMdx2G2QkVyvskIP+GR15SMWv SI14hSZzvWHbe2jtjGa9WwEz ZAKfSST5pRpiQNzpw3CqOIUcZ6 4wrVBmr6G5VWQamEqnjSKqDyUf mYG1gJ9zQRucvfssm9acpbky Qhxgf0vowm11vC11H88bLFhdHW CdKSW3CICsLYIcjKucqe0uaB0y Ii8+FSkwg7rgp0fvtSp5YkHp YEIpjhRokJxoXPH0x8SxHh89W9 EzwFmtd7XgJci4wj39wFVvg8R1 sCQ0CWzfGNNqaS4dGVrnUjA2 ISZkEbUizJ77pZFnVCqiTy8krM fshCapHR1tXGTiamumXKKvbN0x CZNhzDMjuQamAT4zIHFseikg t740JrCoWWN1RPTtmPSlU5BmwO 7zDiFwMSVmPCIjR4EggAAkEVto H468CImwUpT4AMFtrxGqI8Jd XTLlbVdaRiS6f9C1Uj1Bj8Clve mzDUY9EAwhOKPsXpXnWuJyQdD0 D3UaBnd3SQVbtZfeHC9mA1Lq MHCyfnoqxbhikTE5YVKuILUdaE 39vLFkYLihUs7mj2M9h350PENw XFWmyR71Sz1akWorHFXqaTQO bU5qedwad8byyqceJrCsYPKsJA e6TQu4LZUdlMsuQhDmIIM0VhY9 KLQ6qONpjL7gxWdiisdizX0z Oyc+V39bmZ4fGJE1GPC6hkhwZS RuoySpKD23UZ90S3XpIjzthCBo bGU+GCZibqCyqAfzTN9bNkNs f9fcg4SaGOpjN9LzVPGtJQdhYq g7VSOjCMS0vOJ1lM3tULBtLYdp r9G4oHZ1D9EwueMyvx9uy9og JMNyXGwnG65bkKGmk9H1JEVkuT I9YOUlwJhuZzRvxQ25Lck+PGNv uOlml6FsMfmxz1wkc0opyUb3 QeQyKFFatyWosGqrIYX9y0EdOk 83M15qADrfHQNkDUXfMXNnLKYs jYhhiw0hsJ6yVt0+PGNvbCB3 wNZ8vH9dUPRwFzD4YQinK555He SjnKRhQnyop9hiy8nbwEv5IoOe GCFrooNmgUieHPE3b2JlLq24 U43oZEhqTOYeRPFqKWIlEWSbrS zbkf1iaE3uBf0+JO3qp0bsxi05 gZ47xWV+BDDzAWW2iUsySBxr APTlnH4nJDtcFqZ7FNSpXkQkbM 39mAVvNZkfTq1auYdmdOxuIW5l ZZDbckhri379EoFqr5lwECDd tAUpEKhaGAB4U91hx1K6XTUqSX LwDGR6oOB3mU9fhOpswlzwyKNm nJyfvmHxeVccNMpfOCgwG965 IHRvcDsnPlBhdGllbnQgTmFtZT k2I8HcYhi0WBGcfDulDQ4veHFk KBcsLp5jzRtnaYrdQB2nNNJc jtiqo136YmEon9hwOAHxgWTcGD ukMXZ0C45cm1J3QSIqABBkUKL2 cWR6dT3qsEyemknyhSSdhHqb rgGmlAlhGMraCRwnP368OXLjqY soRdMdkjYtCSBysSK8NL61IM49 pQSew5S6hGV3Y7PkCYFfirhb eorciJP0CGJdXNFfnA37Pm3dcZ mqLf5kILKsXBH7MCYgtGNxM1Ju rD7jTqUkIFTnIHXoL2MkvSWr RCwuN425HNgtJeZ5PHSuwrWtY6 RgPSJkpQljYrT9t9L3Kf5TW6O6 WM92CK81qWSju4C4fJJ1S1Cg BSTjusdubrqczMF0ROEtTQAcnS 51Ly9rxFtmSf9wYRQiGAY5ACUl wKPvX9CjxW6xZyQzGZDyPYZi W1LhaMVuJDtoO603TLyiOiT4WP DparNpC3ArZADxvCcjHpA3o1H5 Yn7PKLn2DB85EJ10eDDon5O1 mGA6U9SsWEVoqsvdntgimVY4GJ QvJWTyiD08As5deAtiWn9tYRFh XRO2VXMtwATcU6AwuV7wXpJs SBGdYJXsD9LqxLUiOMfrM136ON avKlM0MWIozkRtH6LaUQVbuLvv BxG5w6E9Fw6JSMTiYN98BWU7 eXL3KD81JW35K6QpPktkiAZglS U+PHRhYmxlIHdpZHRoPScxMDAl NeOcgDhhKM1xXf7wOLUqHGIc cAbmkASlCnEfi1ecOBYtVYpgNC 9ffKwoE4RanPG8SSKwh4o8Dg77 I52pN3ElvHH+TJUqzZC1jTP0 jR8kArIpWaJ1EBhxK857LhFsqG GhVneku6wkd3vgoIy9EiB2VMKv cwZjsBvlLTK4i2GwNw94Q62o IHdpZHRoPSIxNSUiIHZhbGlnbj 3jkI7kDy2+PJUhhRS3uEP2pU9u DkSiHpB8OAcmT359JtLszBKu Fistq4hmu9uduMb0IdPzYBBahg YwnJcsDLK0b1RkRl09O5RfoZzv k2FfUsh9hi64tPEjm1W7aOV4 R6RfDNTjtxlpiNUqzEkhXB1iZL WogfyfIXWkhX9eZUCjZ6j2HwUq ThQ4TFvzC2XmmmC3PUQulRVp TOoiTNG0A67ht5Q1IROnUMSsSN V2wTO9cP5pqLrmnspvjGYnfWhb iqNyfOwfHNnvMBdeW686OZIp nMwyQUBckC9tCRCbxUWkeKamMB 0wNVXkscbgVlVVJ6YRE9DqKFNP TJXZJ8qBDL02WT10iVPrg9X9 bUD5X7JiNBSdbwuvcrjphWG8QB ZuKTNwzO42aPPeDKjuZj2ei1M6 x117EPCpSWBoeK00Bj3wtEvl GUPcoXJOwU8nzcucc0wnpdfuKn DeXEPlFPs1IDh7QGYdkXyyUeUs UTS8NnM8CEC1kQEbaK5gsKck aoyxyA5mQxa+MWTwJELuDTh8Ad wvdGQ+YNLhUJD1tSjcOQkcRCCb nR9lNHDdN7d3AvNtOeD5XJjq M0KaAESccjrzOr17sS1oXiLsKr X8ROiqO0ZdadL4EPHaySSmZJlj GPO8Q94sn7X6MREjHPLdVCW3 lYR8qV1bvRbfgkvbtUHmdUzpcp EeuAefSTbnAFlcJ301IBXwkFuq Onk3WEraRVHdBR91QP40bBRd p8J7gQM3D5TmEKDhmvenyduqxC N3OGWtOHMisG33eAHqITgrNl7e n3A6x272OEHoCSGnnB10Nt4k vOldZECjlGMVjH3dwmeud0qino tbMtPdKNUnFOv0JJu9GTZzxSwc ZsJiGJV7JlE5MOT2sNYugZ2e zRsqkytmmC3vBre+RmVtYWxlPC 61JO10lXOom5S1sUI5E7OuHOBn ielbimnygEJ1XKCyQBGbeC67 xTViEZofNh2pb9E0j247ZVNcDI YmnL91Hz9hbPcfWRQxiNMFgH7i yhxut6tgmvuiGmQaVUBbJKc9 NNx0PTEspKxyAxWxZAW9YyA0NO M3aFMktV8mvLllzwxqzP7fFvo+ J8N5mJH7uYMlqDumlSW+PC90 bq34W4DtJpphLfb9ISYoPNO3bP K5zX8sDOBdQPhvn6R1yOQ9E7Kj jpFbgb7ay9saLMDfUPvwE39s oSXnb9H8MTIjaHX1QULxiSouDs AwmJ26Qer+QUHpvFecs4VhRkvw u0tqq2tyzCb0FiFnRTEckcMg iEqpLUG5n6VwPm07W36jHQtnVC HhGWInGZNcFKIbnBgfiy7uyY0o Ii8+XUPkaSJ3fEA4tU1jNcZm IuZ9ZQmiQ286DyCxcZIfUgrah7 ccp1dsmVf6PiWbUADgbpDbqWjm FZU3v5LhDi47V3KeeTcuv0Pl Daf5fr58zKGuw7S0aSJ9I3SsED UyywyprGNguXteGQ4dVFDaswil ZARlzG5fULRrF5e5QjUzRcV9 AXxxZ7XohqW7AGCukYQxXKAaqT YHkC3bcterv9rxrdlyCtRfETSw VRa1AIx8TYCsxBxfOuNrKGX7 NrQ9UON3kMLllM1xaYegpofsrH 9wOyc+UEo4y4erlNEdTQ7ihOE6 QK50ZC06kHWoq7P9cLN7W7Ak VTQvugslfygljHI3CXBfEHPotL 80Oe7abDkrTo9xNUVdZFH5ESKe sVLzV8SxeX7tHoIpDEZdMWIr N1EttNIbUHrmC118ZIvfSlG1DV GpjzPgM3GwNGAdgDduNxM0n2U7 Ig3EYZ80NV68VW54sXGte5J5 pHL5T4ObXXYaghhwajqqrXR3FL CgFDKwzH67Ll2gbGxyRj9xDKWh IMI8XZEjtDZiC1TvuG0mXbPy BFHcUNIfJ3BwtGJgNYhsG366TN efIrK6OQFyobWlL6VhNTUxiJrp UbL2l4I5Ea0JPr56NZ65UW79 jCBup5F0bNO0H6WoEPDawdjeky vakBQ8GTHvUKEbcL24Oh9xuOab Ft4cJZRwQVD8VLAkbIHkJ0Hj hO8nWfVvTTBdTBUxY7BhyMNjSU ceJ366DHbnRtJ9OIZbrzOrO6Fg ITKuiHkhVfJ7p3Q3Yk3EEUbi xgx5H5KyYnrtqPE+EE55MQKoQH 11uHUkbNVtb9dzxBe8OxErGKXe UQP0yCjqXDuaf2RhIIOiA93t bGFw (more content not included)... Normal [facility] C. diff by PCRon 01-14-2022 Clostridium difficile by PCR see comment Invalid Interpretation Code [facility] Comment on above: Result Comment: Unab [...] its clinical significance. Performed By: #### 1 [id number], [id number], 71538274, 16783029, 18998744, 92811990 ####[facility] [address] [place] [address] Consent for Procedure/Surger yon 01-14-2022 Consent for Procedure/Surgery [id number]:127 Normal [facility] Enteric Panel by PCRon 01-14 C. coli+jejuni+upsaliens is DNA FERN+non-probe Ql (Stl) Not detected Normal [facility] Comment on above: Result Comment: Test ing was performed utilizing reverse sales consultant insurance (RT), polymerase chain reaction (PCR), and array [...] nulcleic acid test. Performed By: #### 1 [id number], 029056149, 34235551, 43764484, 67284213, 67091038 ####[facility] [address] [place] [address] E. coli stx1+stx2 genes FERN+non-probe Ql (Stl) Negative Normal [facility] Comment on above: Performed By: #### 1 [id number], 417451930, 41839601, 31194772, 15259655, 01446472 ####[facility] [address] [place] [address] Enteric Panel by PCR Negative Normal [facility] Enteric Panel Intrl QC Pass Normal [facility] Comment on above: Result Comment: Test ing was performed utilizing reverse sales consultant insurance (RT), polymerase chain reaction (PCR), and array [...] 1 and 2. Performed By: #### 1 [id number], 641650636, 65050641, 75688324, 13983634, 10677331 ####[facility] [address] [place] [address] Norovirus genogroup I+II RNA FERN+non-probe Ql (Stl) Not detected Normal [facility] Comment on above: Performed By: #### 1 [id number], 656874774, 77065079, 77044282, 00118789, 16248670 ####[facility] [address] [place] [address] Rotavirus A RNA FERN+non-probe Ql (Stl) Not detected Normal [facility] Comment on above: Performed By: #### 1 [id number], 842029266, 42940261, 04684091, 54197689, 43715974 ####[facility] [address] [place] [address] S. enterica+bongori DNA FERN+non-probe Ql (Stl) Not detected Normal [facility] Comment on above: Result Comment: This test result should be correlated with clinical presentations and medical history by a healthcare provider to determine its clinical significance. Performed By: #### 1 [id number], 536016473, 76395968, 29357639, 83481016, 53883310 ####[address] [place] [address] Shigella species+EIEC invasion plasmid antigen H ipaH gene FERN+non-probe Ql (Stl) Not detected Normal [facility] Comment on above: Performed By: #### 1 [id number], 671452794, 25632636, 16645091, 60727808, 78720138 ####[facility] [address] [place] [address] V. cholerae+parahaemolyt icus+vulnificus DNA FERN+non-probe Ql (Stl) Not detected Normal [facility] Comment on above: Performed By: #### 1 [id number], 854097366, 87464965, 40708054, 82270075, 66633951 ####[facility] [address] [place] [address] Y. enterocolitica DNA FERN+non-probe Ql (Stl) Not detected Normal [facility] Comment on above: Performed By: #### 1 [id number], 072176383, 77125358, 34984350, 08445154, 93071742 ####[facility] [address] [place] [address] Fecal WBC Lactoferrinon 01-04 Fecal WBC Lactoferrin Negative Normal Negative [facility] Comment on above: Result Comment: The semi-quantitative detection of elevated levels of fecal lactoferrin is a marker for fecal leukocytes and an indication of intestinal inflammation. Performed By: #### 1 [id number], 209297997, 99107301, 21380649, 26202242, 80900863 #### [facility] [address] [place] [address] Ambulatory Visit Summaryon 1 Ambulatory Visit Summary [...] diarrhea Invalid Interpretation Code RLQ abdominal pain [facility] Auto Diffon 01-10-2022 Basophils/100 WBC (Bld) 1.0 % Normal 0.0-2.0 [facility] Comment on above: Order Comment: Order Added by Discern Expert. Performed By: #### 2 258423, 4994018, 74060424, 7047485 ####[address] [address] Basophils/Leukocytes Auto (Bld) [Pure # fraction] 0.1 E9/L Normal 0.0-0.2 [facility] Comment on above: Order Comment: Order Added by Discern Expert. Performed By: #### 2 697367, 1699625, 82733458, 1254166 ####[address] [address] Eosinophils/100 WBC (Bld) 1.0 % Normal 0.0-8.0 [facility] Comment on above: Order Comment: Order Added by Discern Expert. Performed By: #### 2 730071, 2040884, 97165561, 9410818 ####[facility] [address] [place] [address] Eosinophils/Leukocyte s Auto (Bld) [Pure # fraction] 0.1 E9/L Normal 0.0-0.5 [facility] Comment on above: Order Comment: Order Added by Discern Expert. Performed By: #### 2 833160, 4216536, 04565842, 0082680 ####[address] [address] Lymphocytes/100 WBC (Bld) 20.0 % Normal 14.0-50.0 [facility] Comment on above: Order Comment: Order Added by Discern Expert. Performed By: #### 2 597583, 5166187, 75321451, 9803921 ####[address] [address] Lymphocytes/Leukocyte s Auto (Bld) [Pure # fraction] 2.0 E9/L Normal 1.0-4.0 [facility] Comment on above: Order Comment: Order Added by Discern Expert. Performed By: #### 2 208137, 2575416, 31106176, 6099232 ####[address] [address] Monocytes/100 WBC (Bld) 8.7 % Normal 4.0-14.0 [facility] Comment on above: Order Comment: Order Added by Discern Expert. Performed By: #### 2 794717, 4990101, 91977949, 0693507 ####[address] [address] Monocytes/Leukocytes Auto (Bld) [Pure # fraction] 0.9 E9/L Normal 0.2-1.0 [facility] Comment on above: Order Comment: Order Added by Discern Expert. Performed By: #### 2 203189, 9410763, 34330289, 2035368 ####[address] [address] Neutrophils/100 WBC (Bld) 69.3 % Normal 36.0-75.0 [facility] Comment on above: Order Comment: Order Added by Discern Expert. Performed By: #### 2 320178, 2880950, 57753609, 1036786 ####[address] [address] Neutrophils/Leukocyte s Auto (Bld) [Pure # fraction] 7.0 E9/L Normal 2.0-7.5 [facility] Comment on above: Order Comment: Order Added by Discern Expert. Performed By: #### 2 304374, 8219003, 74142839, 5946229 ####[address] [address] CBC w/ Auto Diffon Erythrocyte distribution width (RBC) [Ratio] 14.7 % High 10.9-14.2 [facility] Comment on above: Performed By: #### 2 109276, 3070583, 98091591, 3983832 ####[id number] Hematocrit (Bld) [Volume fraction] 37.1 % Normal 34.0-46.0 [facility] Comment on above: Performed By: #### 2 996826, 2274481, 76709485, 9192608 ####[address] Hemoglobin (Bld) [Mass/Vol] 12.2 g/dL Normal 12.0-16.0 [facility] Comment on above: Performed By: #### 2 566578, 4091054, 09674056, 9977294 ####[address] [address] MCH (RBC) [Entitic mass] 30.0 pg Normal 27.0-34.0 [facility] Comment on above: Performed By: #### 2 945564, 1352844, 23628408, 0606882 ####[address] [address] MCHC (RBC) [Mass/Vol] 33.0 g/dL Normal 31.4-36.0 [facility] Comment on above: Performed By: #### 2 209635, 7960688, 59348035, 3243840 ####[address] [address] MCV (RBC) [Entitic vol] 90.8 fL Normal 80.0-100.0 [facility] Comment on above: Performed By: #### 2 940296, 5523069, 57775486, 3620058 ####[address] [address] Platelet mean volume (Bld) [Entitic vol] 7.9 fL Normal 6.4-10.8 [facility] Comment on above: Performed By: #### 2 141054, 7958883, 91080414, 7119121 ####[facility] [address] [place] [address] Platelets (Bld) [#/Vol] 281.0 E9/L Normal 150.0-500. 0 [facility] Comment on above: Performed By: #### 2 134258, 0723395, 87477444, 7787206 ####[address] [address] RBC (Bld) [#/Vol] 4.1 E12/L Low 4.3-5.9 [facility] Comment on above: Performed By: #### 2 067104, 6238331, 11754798, 0701289 ####[address] [address] WBC corrected for nucl RBC Auto (Bld) [#/Vol] 10.1 E9/L Normal 4.0-11.0 [facility] Comment on above: Performed By: #### 2 052472, 7893071, 60754052, 8252017 ####[address] [address] CMPon 01-10-2022 Albumin [Mass/Vol] 4.4 g/dL Normal 3.3-5.0 [facility] Comment on above: Performed By: #### 2 281796, 3942870, 44783304, 0172283 ####[address] [place] [address] Albumin/Globulin (S) [Mass conc ratio] 1.5 Normal 1.1-2.2 [facility] Comment on above: Performed By: #### 2 089063, 3019707, 25297898, 0127288 ####[address] [place] [address] ALP [Catalytic activity/Vol] 55 Int._Unit/L Normal 21-98 [facility] Comment on above: Performed By: #### 2 691576, 5985056, 18104218, 8934620 ####[facility] [address] [place] [address] ALT No additional P-5'-P [Catalytic activity/Vol] 15 Int._Unit/L Normal 6-46 [facility] Comment on above: Performed By: #### 2 311660, 1039575, 12125646, 8289547 ####[facility] [address] [place] [address] Anion gap [Moles/Vol] 19 mmol/L High 6-16 [facility] Comment on above: Performed By: #### 2 297332, 0753180, 27895414, 8105814 ####[address] [place] [address] AST [Catalytic activity/Vol] 19 Int._Unit/L Normal 5-43 [facility] Comment on above: Performed By: #### 2 215692, 7905503, 55725326, 3608697 ####[facility] [address] [place] [address] Bilirubin [Mass/Vol] 0.7 mg/dL Normal 0.0-1.1 [facility] Comment on above: Performed By: #### 2 956971, 5838235, 10683064, 8014264 ####[facility] [address] [place] [address] Calcium [Mass/Vol] 10.5 mg/dL Normal 8.9-11.1 [facility] Comment on above: Performed By: #### 2 980462, 4830182, 47838519, 5216709 ####[facility] [address] [place] [address] Chloride [Moles/Vol] 103 mmol/L Normal 101-111 [facility] Comment on above: Performed By: #### 2 371063, 6337876, 78562546, 6377109 ####[facility] [address] [place] [address] CO2 [Moles/Vol] 23 mmol/L Normal 21-31 [facility] Comment on above: Performed By: #### 2 475569, 1487196, 56012274, 0085292 ####[facility] [address] [place] [address] Creatinine [Mass/Vol] 1.2 mg/dL Normal 0.5-1.3 [facility] Comment on above: Performed By: #### 2 590123, 2467796, 54842213, 9650011 ####[facility] [address] [place] [address] Globulin (S) [Mass/Vol] 2.9 g/dL Normal 1.4-4.0 [facility] Comment on above: Performed By: #### 2 771225, 7596759, 26851874, 6376531 ####[facility] [address] [place] [address] Glucose [Mass/Vol] 94 mg/dL Normal 55-199 [facility] Comment on above: Result Comment: If t his glucose result represents a fasting glucose, interpretation should refer to the following reference range: 55-99 mg/dL Performed By: #### 2 561029, 1360003, 76727635, 5990383 ####[facility] [address] [place] [address] Potassium [Moles/Vol] 4.7 mmol/L Normal 3.5-5.3 [facility] Comment on above: Performed By: #### 2 867348, 2041581, 36105585, 9455125 ####[facility] [address] [place] [address] Protein [Mass/Vol] 7.3 g/dL Normal 6.0-7.8 [facility] Comment on above: Performed By: #### 2 017471, 0273903, 81125836, 6539991 ####[facility] [address] [place] [address] Sodium [Moles/Vol] 140 mmol/L Normal 135-145 [facility] Comment on above: Performed By: #### 2 149767, 0936344, 53047704, 3686934 ####[facility] [address] [place] [address] Urea nitrogen [Mass/Vol] 25 mg/dL High 5-21 [facility] Comment on above: Performed By: #### 2 381598, 6776949, 76861549, 0543905 ####[facility] [address] [place] [address] Urea nitrogen/Creatinine [Mass ratio] 21 No Units High 10-20 [facility] Comment on above: Performed By: #### 2 635639, 2103952, 33547074, 2653890 ####[facility] [address] [place] [address] Consent for Treatmenton 10-0 Consent for Treatment [id number]#[id number]:127 Normal [facility] Gastroenterology Office/Clin ic Noteon 01-10-2022 Gastroenterology [...] had previous EGD with Dr. Brannon at [facility] 07/2020 that revealed normal EGD. [facility] for N/V/D and had CT [...] year. Patient had previous colonoscopy 2010 in [place] and reports was normal. Patient reports hx. [...] to evaluate for acute process. 11/12/21 at [facility]-CT abdomen/pelvis that showed fat-containing ventral hernia. [...] at times. (more content not included)... Normal [facility] Comment on above: Result Comment: Elec [...] your local community. General instructions ? Take nlly-tie-trwcwrm and prescription medicines only as told by [...] Foundation for Functional Gastrointestinal Disorders: [email or web address].org ? [employer]: [email or web address].org Contact a health care provider if: ? You have a fever. ? You have redness, swelling, or pain around your rectum. ? Your pain is getting worse or you lose feeling in your rectal area. ? You have blood (more content not included)... Normal [facility] eGFRon 01-10-2022 GFR/1.73 sq M.predicted among blacks MDRD (S/P/Bld) [Vol rate/Area] 53 mL/min/1.73 m2 Low >=59 [facility] Comment on above: Order Comment: Order added by Discern Expert. Result Comment: eGFR is race adjusted. AA=. Performed By: #### 2 528920, 4594143, 45469020, 7275981 ####[facility] [address] [place] [address] GFR/1.73 sq M.predicted among non-blacks MDRD (S/P/Bld) [Vol rate/Area] 43 mL/min/1.73 m2 Low >=59 [facility] Comment on above: Order Comment: Order added by Discern Expert. Result Comment: Java J[employer] Developer serene kidney disease could be indicated at eGFR's of less than 60 mL/min/1.73m2. Kidney failure is indicated at less than 15 mL/min/1.73m2. Performed By: #### 2 596733, 2247697, 38384769, 0000532 ####[facility] [address] [place] [address] Physician Referralon 022 Physician Referral [id number]:127 Normal [facility] Urine culture routineOrdered By: Misbah Greenwood on 11-15-2021 Bacteria identified Cx Nom (U) Escherichia coli [facility] Bacteria identified Cx Nom (U) Klebsiella pneumoniae [facility] Automated erythrocytes count in urine sediment (number/area)Ordered By: Misbah Greenwood on 11-12-2021 RBC Auto (Urine sed) [#/Area] 1-2 [HPF] 0-4 [facility] Automated leukocytes count i n urine sediment (number/area)Ordered By: Misbah Greenwood on 11-12-2021 WBC Auto (Urine sed) [#/Area] 10-19 [HPF] 0-4 [facility] Automated urine hyaline cast s count (number/volume)Ordered By: Misbah Greenwood on 11-12-2021 Hyaline casts Auto (U) [#/Vol] Rare [LPF] 0-1 [facility] Basophils Auto (Bld) [#/Vol] Ordered By: Misbah Greenwood on 11-12-2021 Basophils (Bld) [#/Vol] 0.1 10*3/uL 0.0-0.2 [facility] Basophils/100 WBC Auto (Bld) Ordered By: Misbah Greenwood on 11-12-2021 Basophils/100 WBC (Bld) 0.7 % . [facility] Bilirubin Test strip Ql (U)O rdered By: Misbah Greenwood on 11-12-2021 Bilirubin Ql (U) Negative Negative [facility] Blood hemoglobin measurement (mass/volume)Ordered By: Misbah Greenwood on 11-12-2021 Hemoglobin (Bld) [Mass/Vol] 10.8 g/dL 11.8-15.4 [facility] Blood leukocytes automated c ount (number/volume)Ordered By: Misbah Greenwood on 11-12-2021 WBC (Bld) [#/Vol] 12.3 10*3/uL 4.5-11.0 [facility] Body fluid albumin measureme nt (mass/volume)Ordered By: Misbah Greenwood on 11-12-2021 Albumin (Body fld) [Mass/Vol] 3.7 g/dL 3.2-5.5 [facility] COVID-19 SOFIAOrdered By: Kee Greenwood on 11-12-2021 SARS-CoV+SARS-CoV-2 (COVID-19) Ag IA.rapid Ql (Resp) Negative Negative [facility] Comment on above: This is a duplicate Johana SARS Antigen (DEEDEE) result to be used for statistical tracking purpose only. Casts typing in urine sedime nt by light microscopyOrdered By: Misbah Greenwood on 11-12-2021 Casts LM Nom (Urine sed) None seen [LPF] None Seen [facility] Color Auto (U)Ordered By: Kee Greenwood on 11-12-2021 Color (U) Yellow Yellow [facility] Creatinine and Glomerular fi ltration rate.predicted panel (S/P/Bld)Ordered By: Misbah Greenwood on 11-12-2021 Creatinine [Mass/Vol] 1.58 mg/dL 0.44-1.03 [facility] Eosinophils Auto (Bld) [#/Vo l]Ordered By: Misbah Greenwood on 11-12-2021 Eosinophils (Bld) [#/Vol] 0.2 10*3/uL 0.0-0.45 [facility] Eosinophils/100 WBC Auto (Bl d)Ordered By: Misbah Greenwood on 11-12-2021 Eosinophils/100 WBC (Bld) 1.4 % . [facility] Erythrocyte distribution wid th Auto (RBC) [Ratio]Ordered By: Misbah Greenwood on 11-12-2021 Erythrocyte distribution width (RBC) [Ratio] 13.7 % 11.9-15.3 [facility] Estimated glomerular filtrat ion rate (GFR) non- AmericanOrdered By: Misbah Greenwood on 11-12-2021 GFR/1.73 sq M.predicted among non-blacks MDRD (S/P/Bld) [Vol rate/Area] 32 mL/Min [facility] Globulin Calc (S) [Mass/Vol] Ordered By: Misbah Greenwood on 11-12-2021 Globulin (S) [Mass/Vol] 3.0 g/dL [facility] Hematocrit Auto (Bld) [Volum e fraction]Ordered By: Misbah Greenwood on 11-12-2021 Hematocrit (Bld) [Volume fraction] 32.4 % 34.0-46.4 [facility] Ketones Auto test strip (U) [Mass/Vol]Ordered By: Misbah Greenwood on 11-12-2021 Ketones (U) [Mass/Vol] Negative Negative [facility] - Chemistry and C hemistry - challengeOrdered By: Misbah Greenwood on 11-12-2021 Lipase [Catalytic activity/Vol] 44.0 U/L 22-51 [facility] - Hematology and Cell countsOrdered By: Misbah Greenwood on 11-12-2021 Nucleated RBC/100 WBC (Bld) [Ratio] 0.0 % 0-0.5 [facility] Lymphocytes Auto (Bld) [#/Vo l]Ordered By: Misbah Greenwood on 11-12-2021 Lymphocytes (Bld) [#/Vol] 0.9 10*3/uL 1.00-4.8 [facility] Lymphocytes/100 WBC Auto (Bl d)Ordered By: Misbah Greenwood on 11-12-2021 Lymphocytes/100 WBC (Bld) 7.5 % . [facility] MCH Auto (RBC) [Entitic mass ]Ordered By: Misbah Greenwood on 11-12-2021 MCH (RBC) [Entitic mass] 29.9 pg 24.7-34.3 [facility] MCHC Auto (RBC) [Mass/Vol]Or dered By: Misbah Greenwood on 11-12-2021 MCHC (RBC) [Mass/Vol] 33.2 g/dL 32.0-35.0 [facility] MCV Auto (RBC) [Entitic vol] Ordered By: Misbah Greenwood on 11-12-2021 MCV (RBC) [Entitic vol] 90.0 fL 80-100 [facility] Monocytes Auto (Bld) [#/Vol] Ordered By: Misbah Greenwood on 11-12-2021 Monocytes (Bld) [#/Vol] 1.0 10*3/uL 0.0-0.8 [facility] Monocytes/100 WBC Auto (Bld) Ordered By: Misbah Greenwood on 11-12-2021 Monocytes/100 WBC (Bld) 8.3 % . [facility] Neutrophils Auto (Bld) [#/Vo l]Ordered By: Misbah Greenwood on 11-12-2021 Neutrophils (Bld) [#/Vol] 10.1 10*3/uL 1.8-7.7 [facility] Neutrophils/100 WBC Auto (Bl d)Ordered By: Misbah Greenwood on 11-12-2021 Neutrophils/100 WBC (Bld) 82.1 % . [facility] Nitrite Test strip Ql (U)Ord ered By: Misbah Greenwood on 11-12-2021 Nitrite Ql (U) Negative Negative [facility] No Panel InformationOrdered By: Misbah Greenwood on 11-12-2021 Estimated GFR () 38 mL/Min [facility] Comment on above: GFR estimated refere nce range: According to KDOQI guidelines, <60 ml/min/1.73m2 is sufficient to diagnose a patient with chronic kidney disease. Pharmacy Creatinine Clearance (Chem 20.67 [facility] SARS Antigen (LFIA) [facility] Platelet mean volume Auto (B ld) [Entitic vol]Ordered By: Misbah Greenwood on 11-12-2021 Platelet mean volume (Bld) [Entitic vol] 7.6 fL 6.3-10.7 [facility] Platelets Auto (Bld) [#/Vol] Ordered By: Misbah Greenwood on 11-12-2021 Platelets (Bld) [#/Vol] 379 10*3/uL 150-450 [facility] Protein Auto test strip (U) [Mass/Vol]Ordered By: Misbah Greenwood on 11-12-2021 Protein (U) [Mass/Vol] Trace mg/dL Negative [facility] Protein [Mass/volume] in Ser um or PlasmaOrdered By: Misbah Greenwood on 11-12-2021 Protein [Mass/Vol] 6.7 g/dL 6.1-7.9 [facility] RBC Auto (Bld) [#/Vol]Ordere d By: Misbah Greenwood on 11-12-2021 RBC (Bld) [#/Vol] 3.59 10*6/uL 3.60-5.00 [facility] Serum or plasma alanine villanueva otransferase measurement without P-5'-P (enzymatic activiOrdered By: Misbah Greenwood on 11-12-2021 ALT No additional P-5'-P [Catalytic activity/Vol] 13 U/L 10-60 [facility] Serum or plasma albumin/glob ulin mass ratioOrdered By: Misbah Greenwood on 11-12-2021 Albumin/Globulin [Mass ratio] 1.2 {ratio} [facility] Serum or plasma alkaline ladarius sphatase measurement (enzymatic activity/volume)Ordered By: Misbah Greenwood on 11-12-2021 ALP [Catalytic activity/Vol] 74 U/L 32-92 [facility] Serum or plasma aspartate am inotransferase measurement (enzymatic activity/volume)Ordered By: Misbah Greenwood on 11-12-2021 AST [Catalytic activity/Vol] 17 U/L 10-42 [facility] Serum or plasma calcium dennis urement (mass/volume)Ordered By: Misbah Greenwood on 11-12-2021 Calcium [Mass/Vol] 9.5 mg/dL 8.2-10.2 [facility] [facility] Serum or plasma chloride brea surement (moles/volume)Ordered By: Misbah Greenwood on 11-12-2021 Chloride [Moles/Vol] 103 mmol/L 95-114 [facility] Serum or plasma glucose dennis urement (mass/volume)Ordered By: Misbah Greenwood on 11-12-2021 Glucose [Mass/Vol] 118 mg/dL 70-100 [facility] Comment on above: ADA recommended refe rence range Random Glucose Reference Range is dependent on time and content of last meal. Glucose of more than 200 mg/dL in a nonstressed, ambulatory subject supports the diagnosis of Diabetes Mellitus. Serum or plasma potassium me asurement (moles/volume)Ordered By: Misbah Greenwood on 11-12-2021 Potassium [Moles/Vol] 3.7 mmol/L 3.5-5.1 [facility] Serum or plasma sodium measu rement (moles/volume)Ordered By: Misbah Greenwood on 11-12-2021 Sodium [Moles/Vol] 135 mmol/L 136-146 [facility] Serum or plasma total biliru bin measurement (mass/volume)Ordered By: Misbah Greenwood on 11-12-2021 Bilirubin [Mass/Vol] 0.3 mg/dL 0.3-1.2 [facility] Serum or plasma total carbon dioxide measurement (moles/volume)Ordered By: Misbah Greenwood on 11-12-2021 CO2 [Moles/Vol] 19.9 mmol/L 22.0-30.0 [facility] Serum or plasma urea nitroge n measurement (mass/volume)Ordered By: Misbah Greenwood on 11-12-2021 Urea nitrogen [Mass/Vol] 21 mg/dL 9-23 [facility] Specific gravity Auto test s trip (U) [Rel density]Ordered By: Misbah Greenwood on 11-12-2021 Specific gravity (U) [Rel density] 1.012 1.001-1.03 0 [facility] Squamous epithelial cells de tection in urine sediment by light microscopyOrdered By: Misbah Greenwood on 11-12-2021 Epithelial cells.squamous LM Ql (Urine sed) 5-9 [HPF] 0-2 [facility] Urine bacteria detection by automated methodOrdered By: Misbah Greenwood on 11-12-2021 Bacteria Auto Ql (U) None seen None Seen [facility] Urine clarity by refractomet ry automatedOrdered By: Misbah Greenwood on 11-12-2021 Clarity Refractometry automated (U) Clear Clear [facility] Urine glucose measurement by automated test strip (mass/volume)Ordered By: Misbah Greenwood on 11-12-2021 Glucose Auto test strip (U) [Mass/Vol] Normal mg/dL Normal [facility] Urine hemoglobin detection b y automated test stripOrdered By: Misbah Greenwood on 11-12-2021 Hemoglobin Auto test strip Ql (U) Negative Negative [facility] Urine leukocyte esterase det ection by automated test stripOrdered By: Misbah Greenwood on 11-12-2021 Leukocyte esterase Auto test strip Ql (U) 1+ Negative [facility] Urine sediment renal epithel ial cell count by microscopy (number/high power field)Ordered By: Misbah Greenwood on 11-12-2021 Epithelial cells.renal LM.HPF (Urine sed) [#/Area] None seen [HPF] 0-1 [facility] Urobilinogen Auto test strip (U) [Mass/Vol]Ordered By: Misbah Greenwood on 11-12-2021 Urobilinogen (U) [Mass/Vol] Normal mg/dL Normal [facility] pH Auto test strip (U)Ordere d By: Misbah Greenwood on 11-12-2021 pH (U) 5.5 [pH] 5.0-9.0 [facility] SCREENING MAMMOGRAM W/DANIEL, BILATERAL*on 10-18-2021 SCREENING [...] VERY IMPORTANT TO YOUR HEALTH. THE CURRENT [place] [employer] GUIDELINES RECOMMEND ANNUAL MAMMOGRAPHY BEGINNING AT AGE 40. THIS FACILITY UTILIZES A REMINDER SYSTEM TO ENSURE ALL PATIENTS RECEIVE A REMINDER NOTIFICATION AT THE APPROPRIATE TIME BASED ON THE RECOMMENDATIONS OF THIS EXAM. BOARD CERTIFIED RADIOLOGIST. ACCREDITED BY THE [facility] AND FDA. Report reported and signed by Claudia Hinson on 10/21/2021 1432 Normal [facility] Detective Automobile Section [facility] CARDIAC STRESS/REST INJE CTIONon 08-28-2021 [facility] C[facility]IAC STRESS/REST INJECTION Addendum Begins Patient [...] PERFUSION STRESS TEST WITH LEXISCAN Performing facility: [facility], [address] [place] [address], [address], [address] Provider: Mary Ayala MD PCP: Dr. Cruz Supervising provider: Mary Ayala MD INDICATION: CAD; SOBOE Nonischemic cardiomyopathy HISTORY: Gender: F; Age: 81 y/o ; Height: 149.8 cm; Weight: 52.7 kg. High Cholesterol; HTN; SOB; Denies smoking. COMPARISON: Previous nuclear testing completed [id number] at [facility]. ACCESSION NUMBER(S): [id number]; [id number]; [id number] ORDERING CLINICIAN: MARY AYALA TECHNIQUE: ONE DAY [...] Electronically signed by: MARK ZAMBRANO MD Normal [facility] No Panel Informationon 08-28 Normal [facility] DO Work Phone: [facility] DO Work Phone: Office [...] 07Jun2021 03:06PM Heart Rate60, L Brachial Artery Dhzlpmng926, LUE, Sitting Lmrrrrast08, LUE, Sitting Height4 ft 11 in Xgxylo519 lb BMI Enonrugxmb75.61 kg/m2 BSA Calculated1.41 Tobacco Useb) No PHQ-2 [...] Cardiovascular: carotid (more content not included)... Normal [employer] Tobacco Screening.on 022 Adult depression screening assessment No [facility] DO Work Phone: Fall risk assessment a) No falls within the last year [facility] DO Work Phone: Tobacco use status CP b) No [facility] 250 DO Work Phone: Tobacco Screening.on 021 Fall risk assessment a) No falls within the last year -[facility] 250 DO Work Phone: Tobacco use status [facility] b) No -[facility] 250 DO Work Phone: No Panel Informationon 09-24 [facility] [place] 450 DO Work Phone: [email or web address] [employer]at [email or web address]?={[email or web address]} [facility]astro[facility]logy-Westla ke SJW 450 DO [...] mcg) oral capsule 1 cap(s) orally Normal [facility] [place] [place] Coronavirus 2019 RNA by PCR, Screening Asymptomticon 09-21-2020 Coronavirus 2019 RNA by PCR, Screening Asymptomtic Not detected Normal See Below -[facility] 450 DO Work Phone: Comment on [...] make patient management decisions.Fact sheet for providers: https://www.fda.gov/media/237138/downloadFact sheet for patients: https://www.fda.gov/media/010482/downloadThis test has received FDA Emergency Use Authorization (EUA) and has been verified by [facility] ([facility]). This test is only authorized for the duration of time that circumstances exist to justify the authorization of the emergency use of in vitro diagnostic tests for the detection of SARS-CoV-2 virus and/or diagnosis of COVID-19 infection under section 564(b)(1) of the Act, 21 U.S.C. 360bbb-3(b)(1), unless the authorization is terminated or revoked sooner. [facility] is certified under CLIA-88 as qualified to perform high complexity testing. Testing is performed in the [facility] laboratories located at [address] [place] [address]. ED NOTEon 04-08-2019 ED NOTE HNO ID: [id number] Author: Maria Teresa (Rn) LINA Oliver Service: ? Author Type: Registered Nurse Type: ED Notes Filed: 04/08/2019 7:07 PM Note Text: Patient discharged per MD orders, RN at bedside to explain and review s/sx of worsening condition and to return to ED if worsening s/sx develop. Follow up care and questions answered with patient/family. [facility] ED NOTE HNO ID: [id number] Author: Lenore GarnicaRn) LINA Moyer Service: ? Author Type: Registered Nurse Type: ED Notes Filed: 04/08/2019 5:16 PM Note Text: Bed: ED-11 Expected date: Expected time: Means of arrival: Comments: [facility] ED NOTE HNO ID: [id number] Author: Maribell (Medic) Rebecca Hansen Service: ? Author Type: Event Planning Intern and Director Of Financial Aid Type: ED Notes Filed: 04/08/2019 4:59 PM Note Text: Past 2 days left ear pain. Went to urgent care and her BP was high so sent here. [facility] ED PROV NOTEon 04-08-2019 ED PROV NOTE HNO ID: [id number] Author: Elenita Castillo Service: Emergency Medicine Author Type: Physician Glove Examiner Type: ED Provider Notes Filed: 04/09/2019 3:31 [...] of the extremities. History provided by: Patient supervisor cloth winding used: No PAST MEDICAL HISTORY Diagnosis Date - Asthma - CAD (coronary artery disease) - Chronic cough due to asthma - Dyslipidemia - GERD (gastroesophageal reflux disease) - Hypertension - [place], old - MRSA infection - Myocarditis (HCC) PAST SURGICAL HISTORY Procedure Laterality Date - BACK SURGERY HX - CHOLECYSTECTOMY - COLONOSCOPY 2014 -was told she does not need anothe one-done [place] - EGD 08/17/2018 /Normal - VALENTIN W/WO [...] or wounds Nose: Nose normal. Mouth/Throat: Lips: [place]. Mouth: Mucous membranes are moist. Pharynx: Oropharynx [...] SIGNATURE: STEVIE Solano Pa-C 04/09/19 1531 Normal [facility] Vital Signs Date Time Vital Sign Value Performing Clinician Facility 02-11-2023 09:05-0500 Body height 152.4 cm Eliecer Gray Other [facility] Other 02-11-2023 09:05-0500 Body mass index (BMI) [Ratio] 20.5 kg/m2 Eliecer Gray Other [facility] Other 02-11-2023 09:05-0500 Body temperature 97.7 [degF] Eliecer Gray Other [facility] Other 02-11-2023 09:05-0500 Body weight 47.63 kg Eliecer Gray Other [facility] Other 02-11-2023 09:05-0500 Diastolic blood pressure 93 mm[Hg] Eliecer Gray Other [facility] Other 02-11-2023 09:05-0500 Respiratory rate 18 /min Eliecer Gray Other [facility] Other 02-11-2023 09:05-0500 SaO2% (BldA) [Mass fraction] 97 % Eliecer Gray Other [facility] Other 02-11-2023 09:05-0500 Systolic blood pressure 166 mm[Hg] Eliecer Gray Other [facility] Other 02-02-2023 11:06-0400 Body height 142.2 cm Nick Wasserman MD Work Phone: [facility] 02-02-2023 11:06-0400 Body mass index (BMI) [Ratio] 24.21 kg/m2 Nick Wasserman MD Work Phone: [facility] 02-02-2023 11:06-0400 Body weight 48.99 kg Nick Wasserman MD Work Phone: [facility] 02-02-2023 11:06-0400 Diastolic blood pressure 58 mm[Hg] Nick Wasserman MD Work Phone: [facility] 02-02-2023 11:06-0400 Heart rate 60 /min Nick Wasserman MD Work Phone: [facility] 02-02-2023 11:06-0400 Systolic blood pressure 138 mm[Hg] Nick Wasserman MD Work Phone: [facility] 08-30-2022 10:55-0400 Body height 152.4 cm Luis Nolasco Other [facility] Other 08-30-2022 10:55-0400 Body mass index (BMI) [Ratio] 20.7 kg/m2 Luis Nolasco Other [facility] Other 08-30-2022 10:55-0400 Body temperature 97.8 [degF] Luis Nolasco Other [facility] Other 08-30-2022 10:55-0400 Body weight 48.08 kg Luis Nolasco Other [facility] Other 08-30-2022 10:55-0400 Diastolic blood pressure 70 mm[Hg] Luis Nolasco Other [facility] Other 08-30-2022 10:55-0400 Respiratory rate 18 /min Luis Nolasco Other [facility] Other 08-30-2022 10:55-0400 SaO2% (BldA) [Mass fraction] 97 % Luis Nolasco Other [facility] Other 08-30-2022 10:55-0400 Systolic blood pressure 123 mm[Hg] Luis Gaurav Other [facility] Other 03-06-2022 15:48-0500 Diastolic blood pressure 72 mm[Hg] Adriana D Tirado-Collin Work Phone: [facility] 250 DO Work Phone: 03-06-2022 15:48-0500 Systolic blood pressure 136 mm[Hg] Adriana D Tirado-Collin Work Phone: [facility] DO Work Phone: 03-06-2022 15:25-0500 Body height 144.78 cm Adriana D Tirado-Collin Work Phone: [facility] DO Work Phone: 03-06-2022 15:25-0500 Body mass index (BMI) [Ratio] 23.37 kg/m2 Adriana D Tirado-Collin Work Phone: [facility] DO Work Phone: 03-06-2022 15:25-0500 Body surface area Derived from formula 1.38 m2 Adriana D Tirado-Collin Work Phone: [facility] DO Work Phone: 03-06-2022 15:25-0500 Body weight 48.99 kg Adriana D Tirado-Collin Work Phone: [facility] 250 DO Work Phone: 03-06-2022 15:25-0500 Diastolic blood pressure 64 mm[Hg] Adriana D Tirado-Collin Work Phone: [facility] DO Work Phone: 03-06-2022 15:25-0500 Heart rate 66 /min Adriana D Tirado-Collin Work Phone: [facility] DO Work Phone: 03-06-2022 15:25-0500 Systolic blood pressure 154 mm[Hg] Adriana D Tirado-Collin Work Phone: [facility] DO Work Phone: 01-17-2022 10:25-0400 Diastolic blood pressure 81 mm[Hg] Govea SALAM [facility] 01-17-2022 10:25-0400 Heart rate 55 /min Govea SALAM [facility] 01-17-2022 10:25-0400 Respiratory rate 14 /min Govea SALAM [facility] 01-17-2022 10:25-0400 SaO2% (BldA) [Mass fraction] 98 % Govea SALAM [facility] 01-17-2022 10:25-0400 Systolic blood pressure 158 mm[Hg] Govea SALAM [facility] 01-17-2022 10:10-0400 Diastolic blood pressure 64 mm[Hg] Govea SALAM [facility] 01-17-2022 10:10-0400 Heart rate 56 /min Govea SALAM [facility] 01-17-2022 10:10-0400 Respiratory rate 14 /min Govea SALAM [facility] 01-17-2022 10:10-0400 SaO2% (BldA) [Mass fraction] 100 % Govea SALAM [facility] 01-17-2022 10:10-0400 Systolic blood pressure 141 mm[Hg] Govea SALAM [facility] 01-17-2022 10:05-0400 Diastolic blood pressure 60 mm[Hg] Govea SALAM [facility] 01-17-2022 10:05-0400 Heart rate 57 /min Govea SALAM [facility] 01-17-2022 10:05-0400 Respiratory rate 14 /min Govea SALAM [facility] 01-17-2022 10:05-0400 SaO2% (BldA) [Mass fraction] 98 % Govea SALAM [facility] 01-17-2022 10:05-0400 Systolic blood pressure 131 mm[Hg] Govea SALAM [facility] 01-17-2022 09:56-0400 Body temperature 96.98 [degF] Govea SALAM [facility] 01-17-2022 07:50-0400 Blood Pressure Location Govea SALAM [facility] 01-17-2022 07:50-0400 Body temperature 98.06 [degF] Govea SALAM [facility] 01-10-2022 10:48-0400 Diastolic blood pressure 64 mm[Hg] Shimerly DonaldsonSundeep [facility] 01-10-2022 10:48-0400 Mean blood pressure 95 mm[Hg] Shimerly DonaldsonSundeep [facility] 01-10-2022 10:48-0400 Systolic blood pressure 158 mm[Hg] Shimerly Urbano [facility] 01-10-2022 10:44-0400 Blood Pressure Location Shi Urbano [facility] 01-10-2022 10:44-0400 Body temperature 97.34 [degF] Shi Urbano [facility] 01-10-2022 10:44-0400 Diastolic blood pressure 73 mm[Hg] Shi Urbano [facility] 01-10-2022 10:44-0400 Heart rate 51 /min Shi Urbano [facility] 01-10-2022 10:44-0400 Systolic blood pressure 167 mm[Hg] Shi Urbano [facility] 11-13-2021 00:00-0400 Diastolic blood pressure 68 mm[Hg] DO Adriana Tirado-Collin Work Phone: [facility] 11-13-2021 00:00-0400 Heart rate 62 /min DO Adriana Tirado-Collin Work Phone: [facility] 11-13-2021 00:00-0400 Respiratory rate 18 /min DO Adriana Tirado-Collin Work Phone: [facility] 11-13-2021 00:00-0400 SaO2% (BldA) [Mass fraction] 100 % DO Adriana Tirado-Collin Work Phone: [facility] 11-13-2021 00:00-0400 Systolic blood pressure 133 mm[Hg] DO Adriana Tirado-Collin Work Phone: [facility] 11-12-2021 18:52-0400 Body height 144.78 cm DO Adriana Tirado-Collin Work Phone: [facility] 11-12-2021 18:52-0400 Body temperature 98.1 [degF] DO Adriana Tirado-Collin Work Phone: [facility] 11-12-2021 18:52-0400 Body weight 45.35 kg DO Adriana Tirado-Collin Work Phone: [facility] 08-29-2021 10:00-0400 Body height 152.4 cm Clement Columbia II Other [facility] Other 08-29-2021 10:00-0400 Body mass index (BMI) [Ratio] 20.5 kg/m2 Clement Columbia II Other [facility] Other 08-29-2021 10:00-0400 Body weight 47.63 kg Clement [employer] Other [facility] Other 08-28-2021 00:00-0400 65 1 Adriana D Tirado-Collin Work Phone: [facility] 250 DO Work Phone: Comment on above: [id number] 08-25-2021 12:25-0400 Body height 152.4 cm Eliecer Isaac Other [facility] Other 08-25-2021 12:25-0400 Body mass index (BMI) [Ratio] 20.5 kg/m2 Eliecer Isaac Other [facility] Other 08-25-2021 12:25-0400 Body temperature 97 [degF] Eliecer Isaac Other [facility] Other 08-25-2021 12:25-0400 Body weight 47.63 kg Eliecer Isaac Other [facility] Other 08-25-2021 12:25-0400 Diastolic blood pressure 67 mm[Hg] Eliecer Gray Other [facility] Other 08-25-2021 12:25-0400 Respiratory rate 16 /min Eliecer Gray Other [facility] Other 08-25-2021 12:25-0400 SaO2% (BldA) [Mass fraction] 96 % Eliecer Gray Other [facility] Other 08-25-2021 12:25-0400 Systolic blood pressure 141 mm[Hg] Eliecer Gray Other [facility] Other 06-07-2021 15:06-0500 Body height 149.86 cm Adriana Katherine Tirado-Collin Work Phone: [facility] 250 DO Work Phone: 06-07-2021 15:06-0500 Body mass index (BMI) [Ratio] 21.61 kg/m2 Adriana D Tirado-Collin Work Phone: [facility] 250 DO Work Phone: 06-07-2021 15:06-0500 Body surface area Derived from formula 1.41 m2 Adriana D Tirado-Collin Work Phone: [facility] 250 DO Work Phone: 06-07-2021 15:06-0500 Body weight 48.54 kg Adriana D Tirado-Collin Work Phone: [employer] [facility] 250 DO Work Phone: 06-07-2021 15:06-0500 Diastolic blood pressure 62 mm[Hg] Adriana D Tirado-Collin Work Phone: [facility] DO Work Phone: 06-07-2021 15:06-0500 Heart rate 60 /min Adriana Katherine Tirado-Collin Work Phone: [facility] 250 DO Work Phone: 06-07-2021 15:06-0500 Systolic blood pressure 125 mm[Hg] Adriana Katherine Tirado-Collin Work Phone: [facility] 250 DO Work Phone: 03-05-2021 10:47-0500 Body height 149.86 cm Adriana Katherine Tirado-Collin Work Phone: [facility] DO Work Phone: 03-05-2021 10:47-0500 Body mass index (BMI) [Ratio] 22.02 kg/m2 Adriana Katherine Tirado-Collin Work Phone: [facility] 250 DO Work Phone: 03-05-2021 10:47-0500 Body surface area Derived from formula 1.42 m2 Adriana Katherine Tirado-Collin Work Phone: [facility] DO Work Phone: 03-05-2021 10:47-0500 Body weight 49.44 kg Adriana Katherine Tirado-Collin Work Phone: [facility] DO Work Phone: 03-05-2021 10:47-0500 Diastolic blood pressure 66 mm[Hg] Adriana Katherine Tirado-Collin Work Phone: [facility] DO Work Phone: 03-05-2021 10:47-0500 Heart rate 59 /min Adriana D Tirado-Collin Work Phone: [facility] 250 DO Work Phone: 03-05-2021 10:47-0500 Systolic blood pressure 127 mm[Hg] Adriana D Tirado-Collin Work Phone: [facility] DO Work Phone: Encounters Encounter Date Encounter Type Care Provider Facility Start: 04-16-2023 End: 04-17-2023 ambulatory ADRIANA D TIRADO-EMERY Not Available Start: 04-10-2023 End: 04-11-2023 ambulatory ADRIANA D TIRADO-EMERY Not Available Start: 03-04-2023 End: 03-04-2023 ambulatory SHREYA Katherine DOLCE Not Available Start: 02-18-2023 End: 02-18-2023 ambulatory ADRIANA D TIRADO-EMERY Not Available Start: 02-11-2023 Office outpatient vi sit 15 minutes Eliecer Gray [facility] Urgent Care [facility] Start: 02-11-2023 End: 02-11-2023 ambulatory Eliecer Gray Facility:[facility] Start: 02-11-2023 End: 02-11-2023 ambulatory DO Adriana Tirado-Collin Work Phone: [facility] Work Phone: Start: 02-11-2023 End: 02-11-2023 Departed Referred DO Adriana Tirado-Collin Work Phone: [facility] 250 Start: 02-02-2023 End: 02-02-2023 ambulatory Adriana Tirado-Collin Facility:[facility] Start: 02-02-2023 End: 02-02-2023 ambulatory DO Adriana Tirado-Collin Work Phone: [facility] Work Phone: Start: 02-02-2023 End: 02-02-2023 Patient encounter procedure DO Adriana Tirado-Collin Work Phone: [facility] [place] Work Phone: Start: 02-02-2023 End: 02-02-2023 Office outpatient visit 25 minutes Nick Wasserman MD Work Phone: [facility] Comment on above: Coronary artery dise ase involving [place] coronary artery of [place] heart without angina pectoris (Primary Dx); Essential hypertension, benign; Mixed hyperlipidemia; Nonischemic cardiomyopathy (CMS/HCC) Start: 12-18-2022 End: 12-18-2022 ambulatory Savanna Cassidy Other [facility] Other Start: 12-18-2022 Office outpatient vi sit 15 minutes Savanna Cassidy [facility] Start: 08-30-2022 End: 08-30-2022 ambulatory Luis Nolasco Other [facility] Other Start: 08-30-2022 Office outpatient vi sit 15 minutes Luis Nolasco [facility] Start: 05-14-2022 Chart Update Adriana Tirado-Collin Work Phone: [facility] 250 DO Work Phone: Start: 03-06-2022 Office outpatient vi sit 15 minutes Adriana Changaver-Collin Work Phone: [facility] 250 DO Work Phone: Start: 03-06-2022 ambulatory Nick Wasserman II Facility: Start: 03-03-2022 End: 03-04-2022 ambulatory Jay Power Facility: [place] Start: 02-25-2022 ambulatory Adriana Cruz Facility: Start: 02-24-2022 End: 02-25-2022 ambulatory Jay Power [facility] Start: 02-19-2022 End: 02-19-2022 ambulatory Jay Power Facility[facility] Start: 02-04-2022 ambulatory Adriana Tirado-Iván Facility: Start: 02-04-2022 End: 02-05-2022 ambulatory Jay Power Facility[facility] Start: 02-03-2022 End: 02-04-2022 ambulatory Jay Power Facility: [place] Start: 01-17-2022 End: 01-18-2022 ambulatory Jeferson COPE Facility:[facility] Start: 01-17-2022 End: 01-17-2022 Patient encounter procedure Jeferson COPE [facility] Start: 01-13-2022 End: 01-14-2022 ambulatory Shimerly Urbano Facility:[facility] Start: 01-10-2022 End: 01-11-2022 ambulatory Shi Carmela Sundeep Facility:[facility] Start: 01-10-2022 End: 01-11-2022 ambulatory [facility]deep [facility] Start: 01-10-2022 Rx Renewal Adriana Tirado-Collin Work Phone: [facility] 250 DO Work Phone: Start: 01-10-2022 End: 01-10-2022 Patient encounter procedure Shi Urbano [facility] Start: 12-24-2021 ambulatory Adriana Cruz Facility:[id number] Start: 11-14-2021 ambulatory Shi Carmela Sundeep Facili ty:[facility] Start: 11-12-2021 End: 11-13-2021 Emergency department patient visit DO Adriana Tirado-Iván Work Phone: [facility] Start: 08-30-2021 Chart Update Adriana Tirado-Collin Work Phone: [facility] DO Work Phone: Start: 08-29-2021 End: 08-29-2021 ambulatory Clement Madrid II Other [facility] Other Start: 08-29-2021 Office outpatient ne w 45 minutes Clement Madrid II [facility] Start: 08-28-2021 ambulatory Adriana Tirado-Iván Facility:[id number] Start: 08-25-2021 End: 08-25-2021 ambulatory Eliecer Gray Other [facility] Other Start: 08-25-2021 Office outpatient vi sit 15 minutes Eliecer Gray [facility] [address] Start: 08-08-2021 Patient encounter procedure Adriana Murphy Tirado-Collin Work Phone: [facility] 600 DO Work Phone: Start: 06-07-2021 Office outpatient vi sit 25 minutes Adriana Murphy Tirado-Collin Work Phone: [facility] 250 DO Work Phone: Start: 06-07-2021 ambulatory Adriana Tirado-Collin Facility:[id number] Start: 03-05-2021 Office outpatient vi sit 25 minutes Adriana Murphy Tirado-Collin Work Phone: [facility] 250 DO Work Phone: Start: 09-28-2020 Chart Update Adriana Murphy Tirado-Collin Work Phone: BB-Szrqmpjldpdoalwe-Bn [place] 450 DO Work Phone: Start: 09-24-2020 EUSANS, Provider: Vilma Salazar, Status: Pen, Time: 9:20 AM Adriana Murphy Tirado-Collin Work Phone: NZ-Otpxsxydxjanjenp-Dj [place] 450 DO Work Phone: Start: 09-23-2020 Chart Update Adriana Murphy Tirado-Collin Work Phone: NR-Fwncjdpjsoylzbku-Wl [place] 450 DO Work Phone: Procedures Date Procedure Procedure Detail Performing Clinician Start: 01-17-2022 Colonoscopy Jeferson COPE Comment on above: biopsies, diverticulosis Start: 11-12-2021 Computed tomography of abdomen and pelvis with contrast DO Adriana Cruz Work Phone: Start: 07-06-2020 Esophagogastroduodenoscopy Shi diana Comment on above: Dr Brannon Arthroplasty of knee Adriana Tirado-Collin Work Phone: Cholecystectomy Adriana D Tirado-Collin Work Phone: Colonoscopy hSi Urbano Comment on above: 2010 Esophagogastroduodenoscopy M taylor WILLIAN Comment on above: normal, gastric biopsies Hysterectomy Adriana Tirado-Collin Work Phone: Operation on bladder Adriana Tirado-Collin Work Phone: Procedure on back Adriana Tirado-Iván Work Phone: SARS Antigen (LFIA) DO Maximus Tirado-Iván Work Phone: Total colonoscopy Adriana Tirado-Iván Work Phone: Urine culture DO Adriana Cruz Work Phone: Plan of Treatment Date Care Activity Detail Author Start: 09-15-2023 End: 09-15-2023 Patient encounter procedure 09/15/2023 9:30 AM EDT Office Visit [facility] [address] [facility] [address] [place] [id number] Nick Wasserman MD [address] [facility] 2, [address] [place] [address] [facility] Start: 02-11-2023 Bacteria identified in Urine by Culture [facility] Start: 02-02-2023 End: 02-03-2024 Basic metabolic 2000 panel - Serum or Plasma Basic Metabolic Panel Lab Routine Nonischemic cardiomyopathy (CMS/HCC) Expected: 02/02/2023 (Approximate), Expires: 02/03/2024 [facility] Service Area Work Phone: Comment on above: Expected: 02/02/2023 (Approximate), Expires: 02/03/2024 Start: 02-02-2023 End: 02-03-2024 CBC panel - Blood by Automated count CBC Lab Routine Nonischemic cardiomyopathy (CMS/HCC) Expected: 02/02/2023 (Approximate), Expires: 02/03/2024 [facility] Work Phone: Comment on above: Expected: 02/02/2023 (Approximate), Expires: 02/03/2024 Start: 02-02-2023 End: 02-03-2024 Lipid 1996 panel - Serum or Plasma Lipid Panel Lab Routine Mixed hyperlipidemia Expected: 02/02/2023 (Approximate), Expires: 02/03/2024 [facility] Work Phone: Comment on above: Expected: 02/02/2023 (Approximate), Expires: 02/03/2024 Start: 10-28-2022 FUV, Provider: Nick Wasserman, Status: Pen, Time: 9:40 AM FUV, Provider: Nick Wasserman, Status: Pen, Time: 9:40 AM [facility] 250 DO Work Phone: Start: 03-06-2022 FUV, Provider: Nick Wasserman, Status: Pen, Time: 3:10 PM FUV, Provider: Nick Wasserman, Status: Pen, Time: 3:10 PM [facility] 250 DO Work Phone: Start: 02-25-2022 COVID-19 Vaccine (4 - Moderna series) COVID-19 Vaccine (4 - Moderna series) [facility] Start: 12-24-2021 FUV, Provider: Nick Wasserman, Status: Pen, Time: 11:20 AM FUV, Provider: Nick Wasserman, Status: Pen, Time: 11:20 AM [facility] DO Work Phone: Start: 08-28-2021 STRESS NUC, Provider : MARI HHVI NUCLEAR 01,[id number], Status: Pen, Time: 12:00 PM STRESS NUC, Provider: MARI HHVI NUCLEAR 01,[id number], Status: Pen, Time: 12:00 PM [facility] 600 DO Work Phone: Start: 06-07-2021 FUV, Provider: Nick Wasserman, Status: Pen, Time: 3:10 PM FUV, Provider: Nick Wasserman, Status: Pen, Time: 3:10 PM [facility] Work Phone: Start: 11-23-2020 VIRNPVFELICIANOE, Provider : Estefanía Iyer, Status: Pen, Time: 9:30 AM VIRNPVFELICIANOE, Provider: Estefanía Iyer, Status: Pen, Time: 9:30 AM -Gastroenterology- [place] 450 DO Work Phone: Start: 1964 DTaP/Tdap/Td Vaccine s (1 - Tdap) DTaP/Tdap/Td Vaccines (1 - Tdap) [facility] Start: 1942 Lipid panel Lipid Panel [facility] Start: 1940 Medicare Annual Wellness Visit Medicare Annual Wellness Visit (AWV) [facility] Start: 1940 Screening for osteoporosis Bone Density Scan [facility] Patient Education Dehydration, Adult (DC) [facility] Work Phone: Patient referral [facility] Work Phone: Immunizations Immunization Date Immunization Notes Care Provider Sheryl luevano 01-16-2023 Influenza, Seasonal, Quadrivalent, Adjuvanted Nick Wasserman MD Work Phone: [facility] 01-11-2022 Fluzone High-Dose Quadrivalent 0.7 ML Intramuscular Suspension Prefilled Syringe Adriana Cruz Work Phone: [facility] 250 DO Work Phone: 12-31-2021 Pfizer COVID-19 Vac Bivalent 30 MCG/0.3ML Intramuscular Suspension Adriana Murphy Tirado-Collin Work Phone: [facility] 250 DO Work Phone: 10-18-2021 Prevnar 20 0.5 ML Intramuscular Suspension Prefilled Syringe Adriana D Tirado-Collin Work Phone: [facility] 250 DO Work Phone: 04-03-2021 Moderna COVID-19 Vaccine 100 MCG/0.5ML Intramuscular Suspension Adriana D Tirado[facility]Collin [facility] Work Phone: 02-26-2021 influenza, high dose seasonal, preservative-free Adriana D Tirado-Collin [facility] Work Phone: 05-30-2020 Moderna COVID-19 Vaccine 100 MCG/0.5ML Intramuscular Suspension Adraina Murphy Tirado-Collin Work Phone: [facility] Comment on above: Reason for Medicatio n: Other (see comment) 05-07-2020 Moderna SARS-CoV-2 Vaccination Nick Wasserman MD Work Phone: [facility] Work Phone: 05-02-2020 Moderna COVID-19 Vaccine 100 MCG/0.5ML Intramuscular Suspension Adriana D Tirado-Collin Work Phone: [facility] Comment on above: Reason for Medicatio n: Other (see comment) 04-02-2020 zoster vaccine recombinant Adriana D Tirado-Collin Work Phone: [facility] 250 DO Work Phone: 02-01-2020 zoster vaccine recombinant Adriana D Tirado-Collin Work Phone: [facility] 12-30-2019 Fluzone High-Dose Quadrivalent 0.7 ML Intramuscular Suspension Prefilled Syringe Adriana Cruz Work Phone: [facility] 01-04-2019 influenza, high dose seasonal, preservative-free Adriana Cruz Work Phone: [facility] 12-18-2017 influenza, high dose seasonal, preservative-free Adriana Katherine Luis A Work Phone: [facility] NEGATED: Highlighted row has not occurred!01-10-2022 influenza virus vaccine, unspecified formulation Shi Urbano [facility] Health Payers Date Payer Category Payer Self-pay [id number] 2022 Medicare HUMANA MEDICARE HUMANA GOLD CHOICE [id number] 2022-Present [address] [address] [place] [address] [id number] 2020 Private Health Insurance [id number] 2.16.840.1.030372.19 2019 Unknown 2019 Unknown [id number] 2.16.840.1.739967.19 1942 Unknown [id number] 2.16.840.1.778301.3.579.2 .72 1942 Unknown [id number] 2.16.840.1.647396.3.579.2 .72 1942 Unknown [id number] 2.16.840.1.489594.3.579.2 .72 1942 Unknown [id number] 2.16.840.1.133519.3.579.2 .727 1942 Unknown [id number] 2.16.840.1.624658.3.579.2 1942 Unknown [id number] 2.16.840.1.135875.3.579.2 .727 1942 Unknown [id number] 2.16.840.1.483861.3.579.2 .727 1942 Unknown [id number] 2.16.840.1.407452.3.579.2 .727 1942 Unknown [id number] 2.16.840.1.589544.3.579.2 .727 1942 Unknown [id number] 2.16.840.1.203534.3.579.2 .727 1942 Unknown [id number] 2.16.840.1.841771.3.579.2 .356 1942 Unknown [id number] 2.16.840.1.068652.3.579.2 .356 1942 Unknown [id number] 2.16.840.1.064640.3.579.2 .356 1942 Unknown [id number] 2.16.840.1.810960.3.579.2 .356 1942 Unknown [id number] 2.16.840.1.313912.3.579.2 .356 1942 Unknown [id number] 2.16.840.1.658433.3.579.2 .356 1942 Unknown [id number] 2.16.840.1.097949.3.579.2 .1244 1942 Unknown [id number] 2.16.840.1.662798.3.579.2 .1259 1942 Unknown [id number] 2.16.840.1.564975.3.579.2 .1259 1942 Unknown [id number] 2.16.840.1.300925.3.579.2 .1259 1942 Unknown [id number] 2.16.840.1.057720.3.579.2 .1259 1942 Unknown [id number] 2.16.840.1.465881.3.579.2 .1259 Medicare [id number] Medicare Medicare [id number] Unknown [id number] 2.16.840.1.502216.3.579.2 .531 Unknown [id number] 2.16.840.1.045264.3.579.2 .531 Social History Date Type Detail Facility Start: 02-02-2023 Daily caffeine consumption Daily caffeine consumption -[facility] 250 DO Work Phone: Comment on above: tea and a dr. dunbar ; Start: 02-02-2023 Sex Assigned At N [facility] [employer] Other Start: 11-12-2021 End: 11-12-2021 Tobacco smoking status NHIS Never smoked tobacco (finding) [facility] Start: 1940 Sex Assigned At Female F [facility] Tobacco smoking status Never [facility] Start: 02-02-2023 Tobacco use and exposure Smokeless tobacco non-user [facility] Work Phone: Start: 02-02-2023 Alcohol intake Lifetime non-d arcelia (finding) [facility] Work Phone: Start: 1940 Sex Assigned At Not on file U [facility] Work Phone: Start: 01-23-2023 End: 02-02-2023 Exposure to SARS-CoV-2 (event) Not sure [facility] Functional Status Date Assessment Result Facility 01-17-2022 Functional Status N/A [facility] 01-10-2022 Functional Status N/A [facility] Clinical Notes 08-25-2021 [...] She understands and agrees with the plan. [employer] Other 10-30-2023 History of Present illness Narrative* [...] Rfl: Assessment/Plan 1. Coronary artery disease involving [place] coronary artery of [place] heart without angina pectoris Stable, I doubt progression based upon her symptoms (and lack thereof). 2. Essential hypertension, benign Well-controlled on current therapy 3. Mixed hyperlipidemia Well-controlled on current therapy 4. Nonischemic cardiomyopathy (CMS/HCC) No manifestations of heart failure detectable today. [facility] Work Phone: [phone]) 722-395710-30-2023 Instructions* Patient Instructions* Dante Jacob MA - [...] time of your visit. documented in [facility] Work Phone: [phone]) 174-303109-14-2023 Evaluation note* Encounter Date Diagnosis Assessment Notes Treatment Notes Treatment Clinical Notes Dec, Arthritis of left knee (ICD-10 - M17.12) Patient was prepped and coritone was injected into the left knee under sterile conditions. Patient tolerated well with no adverse reactions. Activity as tolerate. [employer] Other 05-27-2023 Evaluation note* Encounter Date Diagnosis [...] Pt understood and agreed to treatment plan. [employer] Other 12-06-2022 NoteAdmission and Discharge Information Admitting Physician - MELI ERIC, J Carlos Consulting Physician - Jannet ERIC, Jay Ayala MD, [facility] Admitting Diagnoses: Discharge Diagnoses 1. Abdominal pain, [...] levels flattened. Cardiology consultation was placed at [facility] cardiology group Dr. Wasserman who [...] 73.9 % Lymph Auto - 12.3 % [place] Auto - 7.4 % Eos Auto - 3.6 % Basophil Auto - 2.8 % Neutro Absolute - 6.2 E9/L Lymph Absolute - 1.0 E9/L [place] Absolute - 0.6 E9/L Eos Absolute - [...] Est - 1+ U (more content not included)...[facility]: Result Comment: Electronically Signed By: Yolanda SALAS\.br\Date and Time Signed: 03/10/22 20:44 EST\.br\Electronically Co-Signed By: Pantera QUICK MD\.br\Date and Time Co-Signed: 03/11/2210:53 [id number] NoteMicrobiology PROCEDURE: Blood Culture Charcoal [R1] SOURCE: Blood BODY SITE: Arm R COLLECTED DATE/TIME: 02/24/2022 13:54 EST RECEIVED DATE/TIME: 02/24/2022 14:07 EST START DATE/TIME: 02/24/2022 14:07 EST FREE TEXT SOURCE: Jay Emery DO, DO, John FINAL REPORTS Final Report [] Verified Date/Time: 03/03/2022 18:00 EST No growth at 7 days. Performing Locations R1: This test was performed at: [facility], [address] [place] [address], [id number] [place] [address], [address] [place], [place] [address]Comment on above:Performed By: #### [id number] #### [facility] [address] [place] [address] [id number] NoteMicrobiology PROCEDURE: Blood Culture Charcoal [R1] SOURCE: Blood BODY SITE: Arm L COLLECTED DATE/TIME: 02/24/2022 13:44 EST RECEIVED DATE/TIME: 02/24/2022 14:08 EST START DATE/TIME: 02/24/2022 14:08 EST FREE TEXT SOURCE: AVERY Emery DO, Jay Emery DO, Jay FINAL REPORTS Final Report [] Verified Date/Time: 03/03/2022 18:00 EST No growth at 7 days. Performing Locations R1: This test was performed at: [facility], [address] [place] [address], [id number] [place] [address], [address] [place], [place] [address]Comment on above:Performed By: #### [id number] ####[facility] [address] [place], [place] [id number] NoteHOSPITAL REGULATIONS: All Positive and Important Negative [...] a surgery isunclear to me. ALLERGIES:Percocet, Darvocet, Sopchoppy, Oxycodone. PSYCHOSOCIAL HISTORY:Nonsmoker, nondrinker. FAMILY HISTORY:Diabetes, heart disease, lung cancer. REVIEW OF SYSTEMS:Otherwise negative, normal and noncontributory. PHYSICAL EXAMINATION: Vital signs: An ill appearing female. She is uncomfortable and moves slowly. Her blood pressure ozz621/66, pulse 64, respirations 16, temperature 36.8, weight [...] hospitalization. Jaime Wasserman M.D. lr Dictated: 02/26/2022 [id number] Transcribed: 02/26/2022 cc:Adriana Cruz D.O.[facility] HospitalComment on above: Result Comment: Electronically Signed By: Lisy ERIC, Nick Cheema\.basia\Date and Time Signed: 02/27/22 14:23 [id number] NotePT Evaluation done this date. Pt. with on AM-PAC this date. She is safe and independent with all functional activities with no further PT needs.[facility]11-22-2022 Note Chief Complaint Had hernia repair [...] Lymph Auto: 12.3 % Low (02/24/22 13:54:00) [place] Auto: 7.4 % (02/24/22 13:54:00) Eos Auto: 3.6 % (02/24/22 13:54:00) Basophil Auto: 2.8 % High (02/24/22 13:54:00) Neutro Absolute: 6.2 E9/L (02/24/22 13:54:00) Lymph Absolute: 1 E9/L (02/24/22 13:54:00) [place] Absolute: 0.6 E9/L (02/24/22 13:54:00) Eos Absolute: [...] (02/24/22 14:55:00) UA C (more content not included)...[facility] HospitalComment on above: Result Comment: Electronically Signed By: Yolanda SALAS\.br\Date and Time Signed: 02/24/22 21:25 EST\.br\Electronically Co-Signed By: Yolanda SALAS\.br\Date and Time Co-Signed: 02/24/22 21:27 EST\.br\Electronically Co-Signed By: J Carlos KEN MD\.br\Date and Time Co-Signed: 02/25/22 07:18 [id number] Notegeneral surgery interval progress note: S.81 y/o [...] the patient and her daughter, including recoveryand painBrown Memorial Hospital Comment on above:Result Comment: Electronically Signed By: Jay Power MD\.br\Date and Time Signed: 02/24/22 14:56 [id number] NoteHistory and Physical Update H&P Reviewed. Patient [...] mg= 1 mL, IV Push, q5min, PRN Sopchoppy 325 mg-5 mg oral tablet, 1 tab(s), [...] disease: Father. Primary malignant neoplasm of lung: Sister.[facility]11-02-2022 [id number]:127[facility]10-17-2022 [id number]:127[facility]10-14-2022 Evaluation + Plan noteExtracted from: Title:ANES POSTOP Author:Eliecer Pennington DO Date: 01/17/22 Plan Transfer/ Discharge: Patient can be discharged from PACU when criteria met. Condition good. Extracted from: Title:ANES PREOP ENDO NOTE Author:Waylon Pennington DO Date:01/17/22 Plan [place] [employer] Anesthesiologists (ASA) physical status classification: [...] Date:02/03/2022 10:20:00 AM Scheduled Provider:Jay Power MD Location:[facility] Appointment Type:[address]10-14-2022 Hospital Discharge instructions Patient Education 01/17/2022 [...] what activities are safe for you. Take mkbq-qki-tdvnqct and prescription medicines only as told by [...] 09/21/2012 Document Revised: 09/14/2018 Document Reviewed: 08/23/2018 [employer] Patient Education 2020 [employer]. 01/17/2022 10:08:02 Colonoscopy, Care After Surgery Salam [...] unsweetened, w/added ascorbic acid 1 cup 0.5 [place] 1 cup 0.7 Vegetables Cooked Green beans 1 cup 4.0 Carrots 1/2 cup sliced 2.3 Peas 1 cup 8.8 Potato (baked, with skin) 1 medium potato 3.8 Raw [place] (with peel) 1 cucumber 1.5 Lettuce 1 [...] 8.7 Peanuts 1/[address] [facility] 2013. SEEK IMMEDIATE MEDICAL CARE IF: [...] Information adapted from: ExitCare Patient Information 2009 [employer]. VISUAL[employer]ANT 2012 [email or web address] Follow Up Care 01/10/2022 12:34:05 With:Jeferson COPE Address: [facility] [address] [place] [address] Business (1) When: Unknown Comments:office will call for follow up [facility]10-07-2022 Hospital Discharge instructions Patient Education [...] or in yourlocal community. General instructions Take xumd-fay-qmmxfbo and prescription medicines only as told by [...] International Foundation for Functional Gastrointestinal Disorders: iffgd.org [employer]: patients.gi.org Contact a health [...] restrictions, lifestyle changes, and skin care. Take lwop-baj-katstxd and prescription medicines only as told by [...] 03/04/2005 Document Revised: 08/05/2018 Document Reviewed: 08/05/2018 [employer] Exchange Patient Education 2020 [employer]. 01/10/2022 10:49:37 Colonoscopy, Adult Colonoscopy, Adult A [...] including vitamins, herbs, eye drops, creams, and wvwx-spy-emsnskd medicines. Any problems you or family members [...] 03/20/2001 Document Revised: 01/13/2018 Document Reviewed: 06/03/2016 [employer] Exchange Patient Education 2020 [employer]. Follow Up Care 11/13/2021 10:56:24 With:Shi Urbano CNP Address: When:1 to 2 weeks [facility] 05-26-2022 Evaluation note* Encounter [...] consider an injection in the left knee. [employer] Other 05-22-2022 Evaluation note* Encounter Date Diagnosis [...] Pt understands and agrees with the plan. [employer] Other Evaluation + Plan note Future Appointments Appointment Date:02/24/2022 12:30:00 PM Scheduled Provider: Location:[facility] Appointment Type:Surgery FT Future Scheduled Tests Laboratory* Fecal WBC Lactoferrin 01/10/22 * Giardia lamblia, Direct Detection EIA 01/10/22 * O & P Exam, Routine 01/10/22 * Clostridium difficile by PCR 01/10/22 * Enteric Panel by PCR 01/10/22 [facility] Evaluation noteNo assessment information available [facility] Work Phone: Evaluation note* Diagnosis Coronary artery disease involving [place] coronary artery of [place] heart without angina pectoris- Primary Essential hypertension, benign Mixed hyperlipidemia Nonischemic cardiomyopathy (CMS/HCC) Other primary cardiomyopathies documented in this encounter [facility] Work Phone: History general Narrative - Reported* Type Description Date Medical History high cholesterol Medical History high blood pressure Medical History [place] Medical History asthma Surgical History right knee repacement Surgical History gall bladder Surgical History hysterectomy Surgical History carpal tunnel release Hospitalization History [facility] Other History of Present illness Narrative* Patient [...] other recommendation for changes in medical therapy. [facility] Sai [employer] DO Work Phone: History of Present illness [...] which appears to be adequate and appropriate. [facility] [employer] 250 DO Work Phone: History of Present [...] which appears to be adequate and appropriate. [place] [address] DO Work Phone: History of Present illness [...] no change and she will [place] [address] DO Work Phone: Hospital course Narrative No data available for this section [facility] Hospital Discharge instructions Additional Instructions Increase your intake of fluids. Take Zofran as prescribed for nausea. Follow-up with your primary care physician for reevaluation in 3 to 5 days.[facility] Work Phone: Progress note No data available for this section [facility] Reason for referral (narrative)* Consultation (Routine) - Authorized Specialty Diagnoses / Procedures Referred By Contac t Referred To Contact Cardiology Diagnoses Essential hypertension, benign Procedures Follow Up In Cardiology Nick Wasserman MD [address] [facility] 2, [address] [address] Nick Wasserman MD [address] [facility], [address] [address] Referral ID Status Reason Start Date Expiration Date V isits Requested Visits Authorized [id number] Authorized 02/02/2023 02/02/2024 1 1 T [facility] Work Phone: Summary Purpose Family History [...] section and content) DATE CREATED AUTHOR 04/09/2019 [facility] DATE CREATED AUTHOR AUTHOR'S ORGANIZ ATION 11/20/2020 [facility] [place] [place] DATE CREATED AUTHOR AUTHOR'S ORGANIZ ATION 09/01/2021 [facility] DATE CREATED AUTHOR AUTHOR'S ORGANIZ ATION 10/25/2021 [facility] dical Specialist DATE CREATED AUTHOR AUTHOR'S ORGANIZ ATION 03/07/2022 [employer] DATE CREATED AUTHOR AUTHOR'S ORGANIZ ATION 03/11/2022 [facility] DATE CREATED AUTHOR AUTHOR'S ORGANIZ ATION 04/01/2022 [facility] DATE CREATED AUTHOR AUTHOR'S ORGANIZ ATION 02/03/2023 [facility] DATE CREATED AUTHOR AUTHOR'S ORGANIZ ATION 02/20/2023 [facility] DATE CREATED AUTHOR AUTHOR'S ORGANIZ ATION 03/21/2023 [facility] DATE CREATED AUTHOR AUTHOR'S ORGANIZ ATION 04/20/2023 [facility] dical Specialists EPIC REASON FOR VISIT (unrecogniz ed section and content) Reason Comments Follow-up 6m Care Teams (unrecognized sec tion and content) Team Status: Active Member Role Status Dates Adriana Tirado-Collin , DO Primary Care Provider Active Team Status: Inactive Member Role Status Dates Adriana Cruz , DO Primary Care Provider Active Nick Wasserman MD Attending Provider Active Team Status: Inactive Member Role Status Dates Adriana Cruz , DO Primary Care Provider Active Misbah Greenwood , DO Emergency Provider Active Color Consultant Relationship Specialty Start Date End Date Adriana Cruz BillieDO morales [address] [place] [id number] PCP - General 09/17/20 Team Status: Inactive [...] BE BASED ON THE PRIMARY CLINICAL RECORDS. [employer] provides no warranty or guarantee of the accuracy or completeness of information in this document.
== END 2023-05-06 09:51 | disposition home or self-care (01) ==
LOC: VC 09:50
PROVIDERS: PCP Radiology Diagnostic Radiology; Visit Provider Radiology Diagnostic Radiology
DX: I80.01 Phlebitis and thrombophlebitis of superficial vessels of right lower extremity (principal)
CPT/HCPCS: 93971; G0463

== ENCOUNTER 2023-05-15 12:20 | Outpatient (OUT) | payer MEDICARE, OTHER, SELFPAY ==
--- NOTE | 2023-05-15 12:29 | VEIN_ITS ---
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 TECHNIQUE: The risks and benefits of the procedure were explained at length to the patient and informed written consent was obtained. Alexey Sosa was present and assisted. The procedure was performed under sterile technique. The patient's leg was wrapped with Coban and postprocedural verbal and written instructions provided. SCLEROSANT: 4 cc, 0.5% polidocanol VEIN(S) INJECTED: 22 veins in the right leg VISUALIZATION: Ultrasound was not used to visualize the sclerosant ANESTHESIA: Supercooled air COMPLICATIONS: None VEIN/VC INJ Sclerosing SOLMULT Vein IMPRESSION: Technically successful sclerotherapy as described Electronically authenticated by: SHAMIKA FLORES Date: 05/15/2023 14:05
--- OUTSIDE RECORDS SUMMARY | 2023-05-15 12:33 | XMS_ITS | CCD ---
Author Name Unknown Address [address] [place] [address] Organization [facility] Care Team Providers Care Fitness Technician Name Role Phone Adriana Cruz Unavailable [phone] Unavailable Unavailable Clement Madrid II Unavailable [phone] Eliecer Gray Unavailable DO Adriana Cruz Primary Care Provider DO Misbah [facility] Primary Care Physician [phone] Shi Urbano Attending Unavailable Shi Urbano Admitting Unavailable Shi Urbano Attending Unavailable Shi Urbano Admitting Unavailable Jay Power Consulting Unavailable J Carlos KEN Attending Unavailable J Carlos KEN Admitting Unavailable Jay Power Consulting Unavailable Jay Power Consulting Unavailable Jay Power Consulting Unavailable MD Mary Ayala Consulting Unavailab Mary Cardona Consulting Unavailable Mitchel Moaguilar Consulting Unavailable Mary Ayala Consulting Unavailable Trabgautam Moaguilar Consulting Unavailable Mitchel Moaguilar Consulting Unavailable Mitchel Moaguilar Consulting Unavailable [...] Jeferson Attending Unavailable SALAM, Govea Admitting Unavailable Tirado-Pike, Adriana Billie Primary Care Unava ilable Tirado-Pike, Adriana Billie Primary Care Unava ilable McGuinn II, Nick Garduno Attending Unav ailable McGuinn II, Nick Garduno Attending Unav ailable Tirado-Pike, Adriana Billie Primary Care Unava ilable McGuinn II, Nick Garduno Referring Unav ailable Tirado-Pike, Adriana Billie Primary Care Unava ilable McGuinn II, Nick Garduno Referring Unav ailable McGuinn II, Nick Garduno Attending Unav ailable Tirado-Pike, Adriana Billie Primary Care Unava ilable Tirado-Pike, Adriana Billie Primary Care Unava ilable McGuinn II, Nick Garduno Attending Unav ailable Luis Nolasco Unavailable Savanna Cassidy Unavailable Tirado-Pike DO, Adriana Billie Primary Care Provi octavio Tirado-Pike, DO Adriana Primary Care Provider [phone] MD Nick Wasserman Attending Provider NICK WASSERMAN Attending Unavailable TIRADO-EMERY, ADRIANA BILLIE Primary Care Unava ilable Tirado-Pike, DO Adriana Primary Care Provider MD Nick Wasserman Attending Provider LIT Gray Attending Provider Tirado-Pike, Adriana Primary Care Unavailable Nick Wasserman Admitting Unavail able Nick Wasserman Attending Unavail able Eliecer Gray Attending Unavaila ble Tirado-Pike, Adriana Primary Care Unavailable Eliecer Gray Admitting Unavaila ble TIRADO-EMERY, ADRIANA D Attending Unavailab le TIRADO-EMERY, ADRIANA D Referring Unavailab le TIRADO-EMERYADRIANA Referring Unavailab le IRMA ANGEL Attending Unavailable TIRADOADRIANA GARCIA Referring Unavailab le TIRADO-EMERYADRIANA Attending Unavailab le TIRADO-EMERYADRIANA Referring Unavailab le GENEVALENTÍN Attending Unavailable Tirado-Pike Adriana PACE Unavailable Marcus ERIC, Krissy Almanzar Unavailable [phone] Ha ERIC, Cristhian Almanzar Unavailable Gene ESTES FACValentín MOREIRA Unavailable Lisy ERIC, Aye Unavailable Jeferson Cope MD Unavailable Clement Madrid MD Unavailable Adriana Cruz DO Primary Care Provider Allergies Allergy Classification Reported Allergen(s) Allergy Type Date of Onset Reaction(s) Facility (4 sources) HYDROcodone; Translations: [hydrocodone] Drug Allergy 2 [facility] (5 sources) oxyCODONE; Translations: [oxyCODONE] Drug Allergy 2 [facility] (2 sources) Acetaminophen / oxyCODONE; Translations: [acetaminophen-ox ycodone] Drug Allergy Nausea (finding) [facility] Comment on above: All pain meds EXCEPT Morphine. Patient is able to take Morphone. (1 source) Acetaminophen / HYDROcodone; Translations: [[place]] Drug Allergy [facility] (1 source) Acetaminophen / oxyCODONE; Translations: [Percocet] Drug Allergy [facility] (1 source) Darvocet-N 100; Translations: [Darvocet-N 100] Propensity to adverse reactions (disorder) [facility] (2 sources) Acetaminophen / oxyCODONE Drug Allergy 3 Nausea Only [facility] (2 sources) oxybutynin Drug Allergy 9 Other [facility] Work Phone: Medications Current Medications Medication Drug Class(es) Dates [...] 0 Refills: 0 Ordered: 05-Mar-2021 DO Active alendronic acid 70 mg oral tablet (2 sources) Bisphosphonate Start: 05-07-2023 End: 05-06-2024 take 1 tablet by mouth in the morning alendronate (Fosamax) 70 MG tablet Indications: Osteoporosis, post-menopausal (CMS/HCC) Take 1 tablet (70 mg) by mouth every 7 (seven) days Take in the morning with a full glass of water, on an empty stomach, and do not take anything else by mouth or lie down for the next 30 min. 4 tablet 11 05/07/2023 05/06/2024 Active amLODIPine 5 mg oral tablet (20 sources) Dihydropyridine Calcium Channel [place] Start: 02-02-2023 End: 02-02-2024 take 1 tablet by mouth in the morning amLODIPine (Norvasc) 5 MG tablet Take 5 mg by mouth in the morning. 0 02/02/2023 Active Start: 01-09-2022 amlodipine Ref ills(s) 0, [...] Start Date: 01/09/22 Status: Ordered Start: 06-25-2020 atorvastatin ( Lipitor) 40 MG tablet Indications: Hyperlipidemia, unspecified hyperlipidemia type (CMS/HCC) TAKE 1 TABLET EVERY DAY 90 tablet 3 12/01/2022 Active Atorvastatin Romain cium Active Atorvastatin Romain cium [...] tid for 10 days Feb, Active Chlorthalidone (20 sources) Thiazide-like Diuretic Start: 01-09-2022 chlorthalidone Refills(s) [...] Refills: 0 Ordered: 30-Jul-2020 DO Active cholecalciferol 0.025 mg oral tablet (17 sources) Vitamin D Start: 05-07-2023 End: 05-06-2024 take 1 tablet by mouth in the morning cholecalciferol (Vitamin D-3) 25 MCG (1000 UT) tablet Indications: Osteoporosis, post-menopausal (CMS/HCC) Take 1 tablet (25 mcg) by mouth in the morning. 0 05/07/2023 05/06/2024 Active Start: 06-25-2020 take 1 capsule by mo uth once daily Cholecalciferol (Vitamin D3) (Vitamin D3) 50 mcg (2,000 unit) Capsule Active 50 MCG PO Daily June 24, 2020 11:00pm take 1 tablet by roberth th once daily cholecalciferol (Vitamin D-3) 50 MCG (2000 UT) [...] for 30 days August, Active dicyclomine hydrochloride 10 mg oral capsule (13 sources) Anticholinergic Start: 03-11-2023 take 1 capsule by mouth in the morning, then take 1 capsule by mouth in the evening, then take 1 capsule by mouth at bedtime dicyclomine (Bentyl) 10 MG capsule Indications: Abdominal cramping Take 1 capsule (10 mg) by mouth in the morning and 1 capsule (10 mg) in the evening and 1 capsule (10 mg) before bedtime. 360 capsule 0 03/11/2023 Active take 10 mL by mouth three times [...] Start Date: 01/09/22 Status: Ordered Start: 06-25-2020 losartan (Coza ar) 100 MG tablet Indications: Essential hypertension (CMS/HCC) TAKE 1 TABLET EVERY DAY 90 tablet 3 01/05/2023 Active meloxicam 7.5 mg oral tablet (6 sources) Nonsteroidal Anti-inflammatory Drug Start: 12-18-2022 meloxicam (Mobic) 7.5 MG tablet Take 7.5 mg by mouth if needed for mild pain or moderate pain. 0 12/19/2022 Active Start: 08-29-2021 take 1 tablet by roberth th every twenty-four hours Meloxicam 7.5 MG 1 tablet Orally Once a day for 30 day(s) START AFTER FINISHED WITH Medrol dose pack August, Active methylPREDNISolone 4 mg oral tablet (2 sources) Corticosteroid Start: 08-29-2021 methylPREDNISolone 4 MG as directed Orally for 6 days August, Active naproxen 500 mg oral tablet (3 sources) Nonsteroidal Anti-inflammatory Drug Start: 08-30-2022 take 1 tablet by mouth in the morning naproxen (Naprosyn) 500 MG tablet Take 500 mg by mouth in the morning and 500 mg before bedtime. 0 08/30/2022 Active Start: 08-30-2022 take 1 tablet by roberth twice daily Naproxen Sodium 500 mg 1 tablet Orally Twice a day for 10 days August, Active nitroglycerin 0.4 mg subling ual tablet (6 sources) Nitrate Vasodilator Nitrostat 0. 4 MG 1 tablet under the tongue and [...] June 24, 2020 11:00pm pantoprazole 40 mg delayed release oral tablet (20 sources) Proton Pump Inhibitor Start: 01-09-2022 take 40 mg by mouth once daily pantoprazole 40 mg, Oral, Daily, Refills(s) 0, Control of stomach acid Start Date: 01/09/22 Status: Ordered Start: 01-09-2022 pantoprazole R efills(s) 0 Start Date: 01/09/22 Status: Ordered Start: 06-25-2020 pantoprazole ( ProtoNix) 40 MG EC tablet Indications: Gastroesophageal reflux disease, unspecified whether esophagitis present TAKE 1 TABLET EVERY DAY 90 tablet 3 10/20/2022 Active Pantoprazole Sod ium 40 MG Oral Tablet Delayed Release Quantity: 0 Refills: 0 Ordered: 30-Jul-2020 DO Active Pantoprazole Sod ium Active predniSONE 20 mg oral tablet (2 sources) Start: 08-25-2021 take 1 tablet by mouth every twelve hours predniSONE 20 MG 1 tablet Orally twice a day for 5 days August, Active Sertraline (9 sources) Serotonin Reuptake Inhibitor Start: 01-09-2022 sertraline Refills(s) 0, Depression Start Date: 01/09/22 Status: Ordered Start: 01-09-2022 sertraline Ref ills(s) 0 Start Date: 01/09/22 Status: Ordered sertraline (Zolo ft) 25 MG tablet 1 (one) time each day at the same time. 0 Active Sertraline HCl A ctive spironolactone 25 mg oral tablet (20 sources) Aldosterone Antagonist Start: 01-09-2022 spironolactone Refills(s) 0, diuretic/water pill Start Date: 01/09/22 Status: Ordered Start: 01-09-2022 spironolactone Refills(s) 0 Start Date: 01/09/22 Status: Ordered Start: 06-25-2020 spironolactone (Aldactone) 25 MG tablet Indications: Hypertension, unspecified type (CMS/HCC) TAKE 1 TABLET EVERY MORNING 90 tablet 3 11/03/2022 Active traMADol hydrochloride 50 mg oral tablet (3 [...] 1 EA, Refill(s) 0, Prior to colonoscopy., [email or web address] [address], 150, cm, 10/07/22 10:48:00 EDT, Height/Length Dosing, 48.3, kg, 01/10/22 10:48:00 EDT, Weight Dosing Start Date: 01/10/22 Status: Ordered triamcinolone acetonide 40 mg/ml injectable suspension (5 sources) Corticosteroid Start: 12-18-2022 Kenalog-40 14 Dec, 2022 120 mg Start: 12-27-2021 Kenalog-40 Dec, 40 mg Problems Active Problems Problem Classification Problem Date Documented Da te Episodic/Chronic Abdominal hernia (3 sources) Hernia of anterior abdominal wall; Translations: [Ventral hernia without obstruction or gangrene] 11-12-2021 Episodic Abdominal pain (13 sources) Indigestion; Translations: [Epigastric pain] Onset: 2 Episodic Asthma (8 sources) Asthmatic bronchitis; Translations: [Unspecified asthma with (acute) exacerbation] Onset: 8 Resolved: 2 Chronic Chronic kidney disease (2 sources) Chronic kidney disease stage 3B ; Translations: [Stage 3b chronic kidney disease (HCC)] Onset: 1 12-04-2022 Chronic Coronary atherosclerosis and other heart disease (15 sources) Coronary arteriosclerosis; Translations: [Coronary atherosclerosis of unspecified type of vessel, mechoopda or graft] Onset: 3 02-02-2023 Chronic Disorders of lipid metabolism (15 sources) Hyperlipidemia; Translations: [Other and unspecified hyperlipidemia] Onset: 1 02-02-2023 Chronic Esophageal disorders (2 sources) Gastroesophageal reflux disease; Translations: [Gastro-esophageal reflux disease without esophagitis] Onset: 8 12-08-2022 Chronic Essential hypertension (15 sources) Benign essential hypertension; Translations: [Benign essential hypertension] Onset: 8 02-02-2023 Chronic Fluid and electrolyte disorders (3 sources) Absolute hypovolemia; Translations: [Hypovolemia] 11-12-2021 Episodic Genitourinary symptoms and ill-defined conditions (1 source) Frequency of micturition Episodic Mood disorders (2 sources) Moderate major depression, single episode; Translations: [Major depressive disorder, single episode, moderate] Onset: 3 12-09-2022 Chronic Nausea and vomiting (6 sources) Nausea and vomiting; Translations: [Nausea with vomiting, unspecified] Onset: 2 11-12-2021 Episodic Osteoarthritis (7 sources) Arthritis of left knee; Translations: [Unilateral primary osteoarthritis, left knee] Onset: 3 Chronic Osteoporosis (4 sources) Postmenopausal osteoporosis; Translations: [Age-related osteoporosis without current pathological fracture] Onset: 8 05-07-2023 Chronic Other and unspecified benign neoplasm (3 sources) History of polyp of colon; Translations: [Personal history of colonic polyps] Onset: 2 Episodic Other connective tissue disease (5 sources) History of right total knee replacement; Translations: [Presence of right artificial knee joint] Chronic Other connective tissue disease (1 source) Presence of right artificial knee joint Onset: 2 Resolved: 2 Chronic Other diseases of bladder and urethra (2 sources) Overactive bladder; Translations: [Overactive bladder] Onset: 8 12-04-2022 Chronic Other ear and sense organ disorders [...] caused by tuberculosis or sexually transmitted disease) (16 sources) Cardiomyopathy; Translations: [Other primary cardiomyopathies] Onset: 9 02-02-2023 Chronic Phlebitis; thrombophlebitis and thromboembolism (1 [...] Other Problems Problem Classification Problem Date Documented Date Episodic/Chronic Deficiency and other anemia (6 sources) Anemia; Translations: [Anemia, unspecified] Onset: 01-10-2022 Episodic Other diseases of veins and lymphatics (2 sources) Venous insufficiency of leg; Translations: [Venous insufficiency (chronic) (peripheral)] Onset: 04-06-2022 04-10-2023 Episodic Other lower respiratory disease (2 sources) Chronic cough; Translations: [Chronic cough] Onset: 11-17-2017 12-04-2022 Episodic Other non-epithelial cancer of skin (2 sources) History of malignant neoplasm of skin; Translations: [Personal history of other malignant neoplasm of skin] Onset: 01-14-2018 12-04-2022 Episodic Other non-traumatic joint disorders (1 source) Pain [...] IS VERY IMPORTANT TO YOUR HEALTH. THE [employer] GUIDELINES RECOMMEND THAT WOMEN 40 [...] Ray MD Normal Not Available Nay 02-20-2023 CNPN Telephone (REFPHY) -- ADINA PERRY ([id number]) 1940 F Date Time Provider Department 02/20/23 NO ONE (HISTORICAL) REFPHY During your visit today, we recorded the following information about you: Alanis Castillo 02/20/2023 6:39 AM Addendum Patient: Adina Perry Date of : 1940 Patient phone number: [phone] Referring Provider for the encounter: Irma Angel APRN Requesting Provider: Vascular Surgery Reason for requesting visit (RFV/signs and symptoms/diagnosis): 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 Person calling: caregiver: Alanis Return call to: self Medical Records/Insurance Card scanned into [employer]: Yes Comments: This was Routed Incorrectly Allergies As of Date: 02/20/2023 Noted Allergy Reaction OXYBUTYNIN 10/13/2018 14 - Other: See Comments Comments: Severe dry mouth Date Reviewed: 02/21/2020 Reviewed by: Telma Reddy (Ri) - Fully Assessed Reason for Visit: External [...] Status:Closed by ALANIS CASTILLO on 02/20/23 Normal [facility] Urinalysis - DIPSTICKon Appearance (U) cloudy [employer] Other Bilirubin Ql (U) Negative [employer] Other Color (U) yellow [employer] Other Glucose Ql (U) Negative [employer] Other Hemoglobin Ql (U) small [employer] Other Ketones Ql (U) Negative [employer] Other Leukocyte esterase Test strip Ql (U) large [employer] Other Nitrite Ql (U) Positive [employer] Other pH (U) 5.0 [pH] [employer] Other Protein Ql (U) trace [employer] Other Specific gravity (U) [Rel density] 1.025 [employer] Other Urobilinogen (U) [Mass/Vol] 0.2 mg/dL [employer] Other Urinalysis - DIPSTICK Nor [employer] Other Urine Cultureon 02-11-2023 Bacteria identified Cx Nom (U) ORGANISM: Escherichia coli (O:ESCCOL) [place] Count >100,000 Aerobic DYLAN Charge (NMIC56) SUSCEPTIBILITY [...] RESISTANT TO ALL B-LACTAM DRUGS. PERFORMED BY: [place] [address] PATHOLOGIST SEWING MACHINIST RENAN CAIN M.D. [facility] Comment on above: Performed By: #### C UU #### [address] Basic Metabolic Panelon 10-3 0-2022 Anion gap [Moles/Vol] 11.0 mmol/L Normal 6.0-15.0 [facility] Comment on above: Performed By: #### L IPID, BMP, CBC #### [address] Calcium [Mass/Vol] 10.1 mg/dL Normal 8.6-10.3 [facility] Comment on above: Performed By: #### L LANA OLIVEROS, CBC #### [facility] [address] [place] [address] [place] Chloride [Moles/Vol] 107 mmol/L Normal 98-107 [facility] Comment on above: Performed By: #### L LANA OLIVEROS, CBC #### [facility] [address] [place] [address] [place] CO2 [Moles/Vol] 26.4 mmol/L Normal 21.0-31.0 [facility] Comment on above: Performed By: #### L LANA OLIVEROS, CBC #### [facility] [address] [place] [address] [place] Creatinine [Mass/Vol] 1.34 mg/dL High 0.60-1.20 [facility] Comment on above: Performed By: #### L LANA OLIVEROS, CBC #### [facility] [address] [place] [address] [place] GFR/1.73 sq M.predicted MDRD (S/P/Bld) [Vol rate/Area] 40.085 mL/min/{1.73_m2} Normal [facility] Comment on above: Performed By: #### L LANA OLIVEROS, CBC #### [facility] [address] [place] [address] [place] Glucose [Mass/Vol] 91 mg/dL Normal 70-100 [facility] Comment on above: Result Comment: [facility] Glucose Reference Range is dependent on time and content of last meal. Glucose of more than 200 mg/dL in a nonstressed, ambulatory subject supports the diagnosis of Diabetes Mellitus. ADA recommended reference range Performed By: #### L LANA OLIVEROS, CBC #### [facility] [address] [place] [address] [place] Potassium [Moles/Vol] 4.4 mmol/L Normal 3.5-5.1 [facility] Comment on above: Performed By: #### L IPID, BMP, CBC #### [facility] [address] [place] [address] [place] Sodium [Moles/Vol] 140 mmol/L Normal 136-145 [facility] Comment on above: Performed By: #### L IPID, BMP, CBC #### [facility] [address] [place] [address] [place] Urea nitrogen [Mass/Vol] 23 mg/dL Normal 7-25 [facility] Comment on above: Performed By: #### L IPID, LANA, CBC #### [facility] [address] [place] [address] [place] Basophils Auto (Bld) [#/Vol] Ordered By: Nick Wasserman on 02-02-2023 Basophils (Bld) [#/Vol] 0.0 10*3/uL 0.0-0.2 [facility] Basophils/100 WBC Auto (Bld) Ordered By: Nick Wasserman on 02-02-2023 Basophils/100 WBC (Bld) 0.4 % . [facility] Calcium [Mass/volume] in Ser um or PlasmaOrdered By: Nick Wasserman on 02-02-2023 Calcium [Mass/Vol] 10.1 mg/dL 8.6-10.3 [facility] Carbon dioxide, total [Moles /volume] in Serum or PlasmaOrdered By: Nick Wasserman on 02-02-2023 CO2 [Moles/Vol] 26.4 mmol/L 21.0-31.0 [facility] Chloride [Moles/volume] in S kobi or PlasmaOrdered By: Nick Wasserman on 02-02-2023 Chloride [Moles/Vol] 107 mmol/L 98-107 [facility] Cholesterol [Mass/volume] in Serum or PlasmaOrdered By: Nick Wasserman on 02-02-2023 Cholesterol [Mass/Vol] 170 mg/dL 140-200 [facility] Comment on above: Chol less than 200 m g/dl low riskChol 201-239 mg/dl borderline riskChol 240 mg/dl and greater high risk Cholesterol in LDL Calc [Mas s/Vol]Ordered By: Nick Wasserman on 02-02-2023 Cholesterol in LDL [Mass/Vol] 89 mg/dL 0-100 [facility] Comment on above: LDL ATP III CLASSIFI CATIONLDL less than 100 mg/dL OptimalLDL 100-129 mg/dL Near or above optimalLDL 130-159 mg/dL Borderline highLDL 160-189 mg/dL HighLDL greater than 189 mg/dL Very high Cholesterol in VLDL Calc [Ma ss/Vol]Ordered By: Nick Wasserman on 02-02-2023 Cholesterol in VLDL [Mass/Vol] 25 mg/dL [facility] Complete Blood Count Auto Di ffon 02-02-2023 Basophils (Bld) [#/Vol] 0.0 10*3/uL Normal 0.0-0.2 [facility] Comment on above: Result Comment: PERF ORMED BY: [place] [address] PATHOLOGIST SEWING MACHINIST RENAN CAIN M.D. Performed By: #### L IPID, BMP, CBC #### [facility] [address] [place] [address] [place] Basophils/100 WBC (Bld) 0.4 % Normal . [facility] Comment on above: Performed By: #### L IPID, BMP, CBC #### [facility] [address] [place] [address] [place] Eosinophils (Bld) [#/Vol] 0.3 10*3/uL Normal 0.0-0.45 [facility] Comment on above: Performed By: #### L IPID, BMP, CBC #### [facility] [address] [place] [address] [place] Eosinophils/100 WBC (Bld) 3.4 % Normal . [facility] Comment on above: Performed By: #### L IPID, BMP, CBC #### [facility] [address] [place] [address] [place] Erythrocyte distribution width (RBC) [Ratio] 13.0 % Normal 11.9-15.3 [facility] Comment on above: Performed By: #### L IPID, BMP, CBC #### [facility] [address] [place] [address] [place] Hematocrit (Bld) [Volume fraction] 37.3 % Normal 34.0-46.4 [facility] Comment on above: Performed By: #### L IPID, BMP, CBC #### [address] Hemoglobin (Bld) [Mass/Vol] 12.5 g/dL Normal 11.8-15.4 [facility] Comment on above: Performed By: #### L IPID, BMP, CBC #### [address] Lymphocytes (Bld) [#/Vol] 1.4 10*3/uL Normal 1.00-4.8 [facility] Comment on above: Performed By: #### L IPID, BMP, CBC #### [address] Lymphocytes/100 WBC (Bld) 16.6 % Normal . [facility] Comment on above: Performed By: #### L IPID, BMP, CBC #### [address] MCH (RBC) [Entitic mass] 30.9 pg Normal 24.7-34.3 [facility] Comment on above: Performed By: #### L IPID, BMP, CBC #### [address] MCV (RBC) [Entitic vol] 91.8 fL Normal 80-100 [facility] Comment on above: Performed By: #### L IPID, BMP, CBC #### [address] Mean Corpuscular HGB Conc 33.6 g/dL Normal 32.0-35.0 [facility] Comment on above: Performed By: #### L IPID, BMP, CBC #### [address] Monocytes (Bld) [#/Vol] 0.8 10*3/uL Normal 0.0-0.8 [facility] Comment on above: Performed By: #### L IPID, BMP, CBC #### [place] [address] [place] Monocytes/100 WBC (Bld) 9.0 % Normal . [facility] Comment on above: Performed By: #### L IPID, BMP, CBC #### [facility] [address] Neutrophils (Bld) [#/Vol] 6.1 10*3/uL Normal 1.8-7.7 [facility] Comment on above: Performed By: #### L IPID, BMP, CBC #### [facility] [address] Neutrophils/100 WBC (Bld) 70.6 % Normal . [facility] Comment on above: Performed By: #### L IPID BMP, CBC #### [facility] [address] NRBC% 0.0 /100{WBC} Normal 0-0.5 [facility] Comment on above: Performed By: #### L IPID, BMP, CBC #### [facility] [address] [place] [address] Platelet mean volume (Bld) [Entitic vol] 8.2 fL Normal 6.3-10.7 [facility] Comment on above: Performed By: #### L IPID BMP, CBC #### [place] [address] [place] Platelets (Bld) [#/Vol] 296 10*3/uL Normal 150-450 [facility] Comment on above: Performed By: #### L IPID, BMP, CBC #### [facility] [address] [place] [address] [place] RBC (Bld) [#/Vol] 4.07 10*6/uL Normal 3.60-5.00 [facility] Comment on above: Performed By: #### L IPID, BMP, CBC #### [place] [address] [place] WBC (Bld) [#/Vol] 8.6 10*3/uL Normal 3.8-11.6 [facility] Comment on above: Performed By: #### L IPID, BMP, CBC #### [facility] [address] Creatinine [Mass/volume] in Serum or PlasmaOrdered By: Nick Wasserman on 02-02-2023 Creatinine [Mass/Vol] 1.34 mg/dL 0.60-1.20 [facility] Eosinophils Auto (Bld) [#/Vo l]Ordered By: Nick Wasserman on 02-02-2023 Eosinophils (Bld) [#/Vol] 0.3 10*3/uL 0.0-0.45 [facility] Eosinophils/100 WBC Auto (Bl d)Ordered By: Nick Wasserman on 02-02-2023 Eosinophils/100 WBC (Bld) 3.4 % . [facility] Erythrocyte distribution wid th Auto (RBC) [Ratio]Ordered By: Nick Wasserman on 02-02-2023 Erythrocyte distribution width (RBC) [Ratio] 13.0 % 11.9-15.3 [facility] Glucose [Mass/volume] in Ser um or PlasmaOrdered By: Nick Wasserman on 02-02-2023 Glucose [Mass/Vol] 91 mg/dL 70-100 [facility] Comment on above: ADA recommended refe rence rangeRandom Glucose Reference Range is dependent on time and content of last meal. Glucose of more than 200 mg/dL in a nonstressed, ambulatory subject supports the diagnosis of Diabetes Mellitus. Hematocrit Auto (Bld) [Volum e fraction]Ordered By: Nick Wasserman on 02-02-2023 Hematocrit (Bld) [Volume fraction] 37.3 % 34.0-46.4 [facility] Hemoglobin [Mass/volume] in BloodOrdered By: Nick Wasserman on 02-02-2023 Hemoglobin (Bld) [Mass/Vol] 12.5 g/dL 11.8-15.4 [facility] Leukocytes [#/volume] correc sergey for nucleated erythrocytes in Blood by Automated counOrdered By: Nick Wasserman on 02-02-2023 WBC corrected for nucl RBC Auto (Bld) [#/Vol] 8.6 10*3/uL 3.8-11.6 [facility] Lipid Panelon 02-02-2023 Cholesterol [Mass/Vol] 170 mg/dL Normal 140-200 [facility] Comment on above: Result Comment: Chol less than 200 mg/dl low risk Chol 201-239 mg/dl borderline risk Chol 240 mg/dl and greater high risk Performed By: #### L IPID, BMP, CBC #### [facility] [address] Cholesterol in HDL [Mass/Vol] 56 mg/dL Normal 23-92 [facility] Comment on above: Result Comment: HDL CHOL ATP-III CLASSIFICATION Cardiovascular Risk HDL > or equal to 60 mg/dL LOW HDL < 40 mg/dL HIGH Performed By: #### L IPID, BMP, CBC #### [facility] [address] Cholesterol.total/Cho lesterol in HDL [Mass ratio] 3.0 {ratio} Normal <5.0 [facility] Comment on above: Result Comment: PERF ORMED BY: [place] [address] PATHOLOGIST SEWING MACHINIST RENAN CAIN M.D. Performed By: #### L IPID, BMP, CBC #### [address] LDL Cholesterol,Calculate d 89 mg/dL Normal 0-100 [facility] Comment on above: Result Comment: LDL ATP III CLASSIFICATION LDL less than 100 mg/dL Optimal LDL 100-129 mg/dL Near or above optimal LDL 130-159 mg/dL Borderline high LDL 160-189 mg/dL High LDL greater than 189 mg/dL Very high Performed By: #### L IPID, BMP, CBC #### [facility] [address] Triglyceride w/Reflex 127 mg/dL Normal 0-149 [facility] Comment on above: Result Comment: TRIG ATP III CLASSIFICATION TRIG less than 150 mg/dL Normal TRIG 150-199 mg/dL Borderline high TRIG 200-500 mg/dL High TRIG greater than 500 mg/dL Very high Standard traceable to the Center for Disease Conrtrol and Prevention (CDC) test method. Performed By: #### L IPID, BMP, CBC #### [facility] [address] VLDL CHOLESTEROL 25 mg/dL Normal [facility] Comment on above: Performed By: #### L IPID, BMP, CBC #### [facility] [address] Lymphocytes Auto (Bld) [#/Vo l]Ordered By: Nick Wasserman on 02-02-2023 Lymphocytes (Bld) [#/Vol] 1.4 10*3/uL 1.00-4.8 [facility] Lymphocytes/100 WBC Auto (Bl d)Ordered By: Nick Wasserman on 02-02-2023 Lymphocytes/100 WBC (Bld) 16.6 % . [facility] MCH Auto (RBC) [Entitic mass ]Ordered By: Nick Wasserman on 02-02-2023 MCH (RBC) [Entitic mass] 30.9 pg 24.7-34.3 [facility] MCHC Auto (RBC) [Mass/Vol]Or dered By: Nick Wasserman on 02-02-2023 MCHC (RBC) [Mass/Vol] 33.6 g/dL 32.0-35.0 [facility] MCV Auto (RBC) [Entitic vol] Ordered By: Nick Wasserman on 02-02-2023 MCV (RBC) [Entitic vol] 91.8 fL 80-100 [facility] Monocytes Auto (Bld) [#/Vol] Ordered By: Nick Wasserman on 02-02-2023 Monocytes (Bld) [#/Vol] 0.8 10*3/uL 0.0-0.8 [facility] Monocytes/100 WBC Auto (Bld) Ordered By: Nick Wasserman on 02-02-2023 Monocytes/100 WBC (Bld) 9.0 % . [facility] Neutrophils Auto (Bld) [#/Vo l]Ordered By: Nick Wasserman on 02-02-2023 Neutrophils (Bld) [#/Vol] 6.1 10*3/uL 1.8-7.7 [facility] Neutrophils/100 WBC Auto (Bl d)Ordered By: Nick Wasserman on 02-02-2023 Neutrophils/100 WBC (Bld) 70.6 % . [facility] No Panel InformationOrdered By: Nick Wasserman on 02-02-2023 Estimated GFR (CKD-EPI) 40.085 mL/Min [facility] Creatinine Clearance (Chem N/A [facility] Nucleated erythrocytes [Pres ence] in Blood by Automated countOrdered By: Nick Wasserman on 02-02-2023 Nucleated RBC Auto Ql (Bld) 0.0 /100{WBC} 0-0.5 [facility] Platelet mean volume Auto (B ld) [Entitic vol]Ordered By: Nick Wasserman on 02-02-2023 Platelet mean volume (Bld) [Entitic vol] 8.2 fL 6.3-10.7 [facility] Platelets Auto (Bld) [#/Vol] Ordered By: Nick Wasserman on 02-02-2023 Platelets (Bld) [#/Vol] 296 10*3/uL 150-450 [facility] Potassium [Moles/volume] in Serum or PlasmaOrdered By: Nick Wasserman on 02-02-2023 Potassium [Moles/Vol] 4.4 mmol/L 3.5-5.1 [facility] RBC Auto (Bld) [#/Vol]Ordere d By: Nick Wasserman on 02-02-2023 RBC (Bld) [#/Vol] 4.07 10*6/uL 3.60-5.00 [facility] Serum or plasma anion gap de terminationOrdered By: Nick Wasserman on 02-02-2023 Anion gap [Moles/Vol] 11.0 mmol/L 6.0-15.0 [facility] Serum or plasma high density lipoprotein (HDL) cholesterol measurementOrdered By: Nick Wasserman on 02-02-2023 Cholesterol in HDL [Mass/Vol] 56 mg/dL 23-92 [facility] Comment on above: HDL CHOL ATP-III CLA SSIFICATION Cardiovascular RiskHDL > or equal to 60 mg/dL LOWHDL < 40 mg/dL HIGH Serum or plasma total choles terol/high density lipoprotein (HDL) cholesterol mass ratOrdered By: Nick Wasserman on 02-02-2023 Cholesterol.total/Cho lesterol in HDL [Mass ratio] 3.0 {ratio} <5.0 [facility] Sodium [Moles/volume] in Ser um or PlasmaOrdered By: Nick Wasserman on 02-02-2023 Sodium [Moles/Vol] 140 mmol/L 136-145 [facility] Triglyceride [Mass/volume] i n Serum or PlasmaOrdered By: Nick Wasserman on 02-02-2023 Triglyceride [Mass/Vol] 127 mg/dL 0-149 [facility] Comment on above: TRIG ATP III CLASSIF ICATIONTRIG less than 150 mg/dL NormalTRIG 150-199 mg/dL Borderline highTRIG 200-500 mg/dL High TRIG greater than 500 mg/dL Very highStandard traceable to the Center for Disease Conrtrol and Prevention (CDC) test method. Urea nitrogen [Mass/volume] in Serum or PlasmaOrdered By: Nick Wasserman on 02-02-2023 Urea nitrogen [Mass/Vol] 23 mg/dL 7-25 [facility] WBC Auto (Bld) [#/Vol]Ordere d By: Nick Wasserman on 02-02-2023 WBC (Bld) [#/Vol] 8.6 10*3/uL 3.8-11.6 [facility] Coding Summary.on 03-11-2022 Coding Summary. [id number] Gh0bWw +PGhlYWQ+SP9ZBVBzR36hdHEyg X0DY7wRLP8OFXUUCFXSKB1OHG5 drDF3QXypL0ZsjcNz WtjagUAsSP91GVm8WTY7jReqKP kpuT5xiEDaH5l4OeYtGK88mJ12 EOylQGSeUgC5DiHsypyiuSSj S4xhCiSfpTGwDis+PHRhYmxlIH lnJDDzSEnkWPFuKgHirBtjND2e Hv9hGGCrNPFndGhwkNWzCeOz l6ljAQOfJNaqBF0zxVizL3MctO W5MVQrb2t1Ad78iZB+PHRkIHN0 tZpjIZtms482JrFvr6ymJGZ6 iTOcGMrqKEL6W16at8Z5HQAgHG MgJTI5zEK3qJ4qhOsxfzuyT1Ac zBQlHdW8LFC8jJLszN7ofIgf bqljnA6xObs+A54EOM7CLTCJMO 6NWds0S5DvMbansZL+CS77IIFz IW04nOGlpMAsy3zycUd8IxRr EFCtBWA8nPmjGVqyv1FeVQDjT6 9slOVdn5G1UHZxrOmzvFKvSpZz uEL5pU2fGGwmvbcsy5jqvdee Jxwrd1ozit50yO45E12hVTjiKF FiPSF4KCOwDGSpzUqpji1ygO4c Ii8+PTnjm3bcf1gxjCe0VjLt RFXwkcFccIglTGQ4i6XmKk98O5 DpxYnhy0QcNkt4vd58xBQnz0H5 pLX2JGqxQKIjbW0tSWlpCbI5 RHBoAoEhnF26zOEqCMaxAd0elL gtmCoxUQ2fQENnjvpfIHGlaA2c TDQedRLmpEfoRE4aAHAduaxf i548WpSgIPK4SHIahSEuP2ZelG 2sFePjBHGtNTDbV6CvaCYyQLbn B238FJxfLnF9YYZgyjYbP7On LACbfWdsEsY9r8I0If4Ft5Wwiu ozESP9ZYzuUZDsIdH3KhDyHtA1 D2MgQej8KDQdlVckID1xR9At GMIrxelgmskfkAY8GBEgMXPuyF 95bGLlXNxiTz0aa7D7g957VBRc LURjmB22Pe2yzJjuTYExtBWP vU1iiluiy0radstfHnMbZDNfOT o2KFu0FBIvpYxfOeZmGZQ1NfP7 LRO9hRHjuY9cbQbpmxycyJ1b Oyc+P29pwT9bTRD5HAX6lwpdWH PxgcGgJL44RY83E7YdCyommZKc bGU+ATOfavAhgYqeJP4uWjWl o0hhn7NuRLkeH1SjQFHlBErwPi a0HZXeHYN5sPB8lM0iQWYhYHpp a2J9tNK9D8DwrtRlku7kc1br FPZqJIzhG13orUEht8Z3NGXdcV M5FQDqaAfwFqCflW54Saa+PGNv vGehh5TwBplke9jpy9nfyIt9 LqPnRJZncwHrbYzdCFZ5j0HeCy 59M78hPYvdJFYtKIBzPZXlAHZv zNeahg5ahM9yBu1+PGNvbCB3 uQE4kN3pNQIgJuZ4SMjbH484Hf EquDQjIojry4eep1hyfKn3TyLb KOGlbcUisPjuSHK1u3PgYv17 O94sMMvpBEHzRHSpDRWfSCFmgH fgyd7qaZ6iBr2+EZ3eu6pfhk76 uW06tDD+IOBfFLH8hSiaERpa VMNejH1rWIytKpY9CNJdJtKhbH 38aMCpRMqzIz5uyAdmhZmmUD4u VELmmmspd878ViNkx6anVPCo uVCpUAudHAF4C31gz7X8QVHyMJ HdEUS4nFO1iC0gmMcnggqysUMa kNizntBngQapIOovEGmpI635 IHRvcDsnPlBhdGllbnQgTmFtZT q7B3OkAzg8JULiwLouHU5pcFVw MRfrFz4kjAyrnPagKY8xEGPq hgcok777ZeIqe5qgRCAytQWaCO naLBI0R72je5L0KDXzOIChCGQ6 cUS8mK1zePmctkdclYJxcAnx opWzqXwyAFsyIYnlO752TYKjkU jaVyCpxyZxRCCmjIL4EG52ZY16 gFBlc4K3jAE0N0NtPHRuhjet xvhzkEW4PQFjDJQhiE75Ez4xeP hxHj8pJWLaEER0QNLvqOQwE1Lv aH6mXsAnBKDkPKBeB3VkrUWo ZLreU458PBjcUcS9IUBufoQlF5 JrEOMhhLiyEwA3g4G6Xq1VM3R8 CB68BU15nTVaw9P6cAW2C3Vx YPOveoifsfqrwNU4IRSqQBLpoI 30Ps0swVjpMp3sGYAkPXO7EQKl oDYeG0IgiC0aBnBuZMRsTXMi H7RwrHQeBEpwW610GTikLdJ2II PrnfIpM6ViKENmtYcnJoW2b3P6 Xw7PEYw4PR87DX75tOMzp6B8 kAE2Q5KuQRUbedalzogyvXC8XV XuYRNvwH49Iy1unVsoFy9jSOKg RSS5SPRaoVLnG3TzyL9aWtTg JMAyRHKcW6DoxCUyTUrcC680MX moBvD3KVFdqrOlE3DuZNRcqQgk MgU4m9W9Je4YDHSmFO05WWR2 qNV7AN54TY92I5FoXelnnXJsqD U+PHRhYmxlIHdpZHRoPScxMDAl NzRdsUmvRB9pFf1wGBNeEIFb lGraaBBdQqMvb2uaROJvBVkdNO 3zhNeoQ0WzbIK2NGZvu4j2Bd85 R86uJ3AlcLJ+HUHiwEQ4tPD3 eW9gYaOpEgA0GZesR107KnZadW AhZlctg5viq1yrqCg9YzO3DMLa buSyeOukHWB7o6DfYs58F49k IHdpZHRoPSIxNSUiIHZhbGlnbj 5wlR6sMl3+BFZyvYH9cRE8rA6r AgQyOyY4JLetC607MvCexLTq Uoiup5jfr2nfxEd1YgYcKYQedz CeiSiqYMK9s4YhDm33W1EmzAtu k8OgMhc9pg48wCXxr5I6lCB0 Z5JpOHMhuthlvGTvpYsnRV7uKD FpbzbmMDAngU9oDVAyW4g8TbGh BjV1WSkzN7BixjT0HFUvkVBg WFptXWG2U12vz2Z7SAWoVWRiXB S7eJJ5uX4bsKxdaiebuPXewIjp hyHwmDotKUipRQxuK940GCQb iXksHKTjeS3hDXYdhMHfsVtgJR 0uSEHkwfhcGzKXY7VEK1JhVAKY ELGQB1rWFE95JN03mSUxs4K2 nWP1G7CyOIXlxdiarueflGG3TB JiYKTxqO31fIXbHRujNp5ce4J3 w984BDFwKYNcbJ69Ly1vhQyg CLCpzFWJaB5gwiotv9eeyaqwAg QwOCUpBRq3CQe9OPAocVwsFvDh YEC3SdB8LVP9mAVanI4lhPlm yxelnD8vBug+NXOnQJZlCHk5Ri wvdGQ+XWKuKRZ3cQuySRhoZRTk kR4lMHWdA8x5NrCmPaC6HYpd E3FnFMBzzntdDc89oS2zZfYoIi T7ZIkkC4AqikY5ZWJglFKaHXld UNQ3X81mt3M9BQZdKELlZPU7 rOG3aX6pePlfvioddHFxqDhada LgoQpuRWblSZenI095WVObbEmw Nxj5GUftNNPiIJ96OO74qERs k7G5iWD7Q2AsYTFmkjxczzjahH I1PZLiLWMowH66jPOvSDmwKj2n t5Q2n394VCDzLEYbdL82Eg6f hFapTEVldEKZyM7fdicvo9ytez naWjKfQUSbKGf4ZRx4VVPlkBuo QxHhSNT1OgK3LFA0aTSlmZ5a kGxwrrnulF4mCje+RmVtYWxlPC 21XL56yZZpi3U9pUU9N4OxILYu lyxhpjvshYJ8CERzWYZvnO74 kJJkXFjxNe4wf5G7d154SFMdOM WjhJ94Cb7bhGwcTUBthQYPuH1w qinby2yxzcqdLdJzRALpALp2 QEa4KKObgBtcXlYxJKF2NaU9ZC V4kSYklQ6lqWkajxoxtT9lYnl+ D1PzJLW7UXKpi344G2QzIiil dHI+AP27SHKsBI22rIIjuMXin3 svkAn4KdUmQTSfFBF2lPeiPOqd k8FyMQOzQ61hkKIsf1L0ESRz nWlcbHRoBnGszVN7hH5gRDkjeq rda4rsrnpkFpmqk6hosp99mR98 C66gOMkoNZBmNIOsOBQyDQHn gYxhme5xyA4cJc8+YYJqvER9jS Y9xR5nVjNmNiJ7VXbbT127WoUy qBOkPlpys2apo1kaoBu1DlKm YKSdvuKjcZybXWV7t7IwDg91G6 9sIHdpZHRoPSIyMCUiIHZhbGln uq5wuB9nPl5+FK4za9drjz12 eT15lME+UVIeJFO4yDvxYSdvUL AbwU9oUGemRuM7YJAcAoOqqX37 gQYqNWrhJz4ssCnkmHmaON0y JJBnioteo429RyFhj0rqJNYluX XjILldPSR8I67jw5K8WDOlBPDk EJD4rKU6mP2muWezvbvykUQj wYpszhNobQleERuzYTdhS608WJ YchQnoQgKutRXeU9pperKEHD2h OjwvdGQ+QXEbCNB4nVonXXyy MNXfrD8fLKYnL6u5YtSuBfZ7PE bzZ5HvuwY3MBHoaJEoPDIvgPPE oJ4sbverk3lkqrecRzFfZTFg LJp3SHv8FUSvtEodTqTlLYN0Jg X8AMK1xRWxwI5xdRvseebpaM4w Oyc+RklOOjwvdGQ+PHRkIHN0 bSedIFnxWHDitI4zKHSaX8i2Jg QiGjW3XBtdR6RsplV1VEOjaMVl WNPpkGSTyE7xjpgwh4ievqsf XtCkLUZhFYi5GDp9KNWpqDmiZs CvFIO5CdY1PAO7zITrqX3swJgj hocvcK9vDml+TVJOOjwvdGQ+ QKIyZON8aGutCThwPWZeuB1gZJ UzB8m9ApAmEcD1PRfmW5RpouN6 MSDgrYLhMUMvuBFWtJ4xtiaj v6rxiuwbIzEzEOVtKGf5TDz9PL LaxVwvZpEsLHG8UaF8XII2dSFb vE5qdDrjskcpyN4uRxz+UGF5 FAY3UY30MS54P4YlVvhpdSXnfV U+PHRhYmxlIHdpZHRoPScxMDAl GaYcdIsjCA9iRn6oRDTkPBPc bGxh (more content not included)... Normal [facility] Office Visit (Cardiology)on 03-06-2022 Follow-up visit [...] Medication No Known Drug Allergies Recorded By: Nea Méndez; 02/22/2021 8:14:24 AM Family History Mother [...] complaint. Vitals Vital Signs Recorded: 06Mar2022 03:48PMRecorded: [id number] 03:25PM Yachgrmm095, LUE, Qclcvkc699, LUE, Sitting Tqrepfbdd32, LUE, Iztvzlc13, LUE, Sitting Heart Rate66, L Radial Height4 ft 9 in Vopitw195 lb BMI Vweivpaipx32.37 kg/m2 BSA Calculated1.38 Tobacco Useb) No Falls [...] Mar 06 2022 4:39PM EST (Author) Normal [facility] Tobacco Screening.on 022 Fall risk assessment a) No falls within the last year -[facility] y 250 DO Work Phone: Tobacco use status CP b) No -[facility] y 250 DO Work Phone: [employer] Documentson 1 05-04-2021 [employer] [id number] Normal [place] General Surgery Office/Clini c Noteon [...] Michelle to record this visit. ANA M technology infusion specialist and provider reviewed before signing. ANA [...] list Allergies Percocet (Nausea) Darvocet-N 100 (vomiting) [place] (Vomiting) oxyCODONE (Vo (more content not included)... [facility] Comment on above: Result Comment: Elec [...] Locations R1: This test was performed at: [facility], [address] [place] [address], [id number] , , [facility] Comment on above: Performed By: #### 2 [id number] #### [facility] [address] [place] [id number] Coding Summary.on 02-25-2022 Coding Summary. [id number] Gh0bWw +PGhlYWQ+AO6VZOMcV15zpXWwj M0UM4nJEI8UXYPWWTIDEU0JSC2 gjAW9QEssK8CktcIk FcimfWMdXC48KZc6MHH4jWwoCH zbiF0rnPIkK6u3VsWfBJ68bT72 EHfoFLObVrI2KaBqfacxfICm M5glXiDwcEWfRtq+PHRhYmxlIH odDDSoTWtmVLYrIfEfyBjgDF4k Ht3cSAQbXZTqiJfufUWnFcJj z0mbDKZrVInvHY2ywWarG7FkmU W5EYQlx1f4Zh88iGT+PHRkIHN0 sRrcUTkag710MxQze4qvYXZ3 tWPrTXptNIP3S15ql7H9XXWxPK KxMLG1tHZ3oM6jpCegpdzcY2Sv tAWnTmA5XGP2eEKmoF9ydRzv zwkwdQ9gRin+X42URR8TRPFHMM 5CMxt9T8YqQbnpjQU+QQ89NZFn TT22qLGnmQZfv5mdqWp9AfXz KTJjAMK8fOigATios1KfCKXyZ8 9rkMWxm3J4ADZlvHlavMUdUvBr uWJ8sV9fDTjjoqhbt8xdvjig Ilbjg5btce90aE04K99dLMzjIJ AuYCG7DNSmYREdfZevhq0dnH5c Ii8+PHptv5wij1byjHt9GuLf IMSenkYbpAcdIMW5k6OhNw24D7 NlwHacg3PxLpm4vn97yGRnt3A2 hNR8UUpxSSUpgO2wDSdfMiL7 ORTpGbNfrP97kDYkJOehXb3zcH gotJtzOO0lIXHozvcyHMDepN2t GKZviLIpmKefHY4uKNWmyuws v719SwKtGNA0VAIljAHaB0VwpI 5sYaOrNCGyAJFtA3ZzoOUyGQic M080VKgnGxK8YAHevkUcB6Xu DAYgdTndUrX7q9O5Xz2Fs3Mzjs orLSG9VDjjBPTbMwOgTgSwAfR3 N0NgWtr2KHAmpTobMT2bZ6Rw TIMtwxprrytmmQA8DUUtGICouD 81vFShSUkdNe4av6R9x217LWLt SWCgsV69Ja9loDmvDXAqeKDP gA7jdqufp7gbjluyCjYgCKTaHF l0UAi8KXWkfHfnMgXnCYR4FmW7 ANC8bPBiwU3whNavznmxpD1i Oyc+H28xzB0mKTL6DVS5jupnLQ ZgkfUsVK40AE43F5IiAcckrKLq bGU+XTUclcSybObpAY4rBnLy d3ytv0KdNAcjU7JlRTWeKWqmQn v7IKJlADU3rKB4hK4kHNQsPFhq j6H7jHM8O5PkxeErbe9sp0td RWGiDIihK96vaENpy2Y2VNZwfS K2FFGqwZubGqCboT90Ypv+PGNv iGvry1JaVrrbc7sfb2qpkBp7 TrUwPXGfbzZcyEuiBLO7i3ChFh 68O08uYDjdAUPfVHQbSLPdTMYb kQrsxj6psY1gSm7+PGNvbCB3 cQK4fC6wTQVoUgF6ASalX055Jm WivFJwFeodj8bah1mrkHy8JzKc EMUpsuPyaSlcTQN6o6FaDv34 H13bLBzhZZNbJWAuLQEdXUTubG wnim6ucG8iAx7+XP8xl8atnj09 hA96nPK+ATCgLCN0hIvrDKbi ZBWbhX0zGTvwQmM2WRLwBkIsnN 41tDQvUAylWv9cuGculVjrCG2i HCKdminyo340WkUty3vhYRIr uJIhBLmoIGP6S36lb4F5NHChWG FsKWX6uXT1aU7xsJxiiwglqFOs cEltkfBbdYhiHEraXMjgX930 IHRvcDsnPlBhdGllbnQgTmFtZT y0D2HxHii4BCYiyQepYC5uqWFf KVbvBa4wmDeazOjfNE2dPZHj jnqkr024WhMgm2zfHUSpbAOuNY avLGJ1V81lq2B8CSZiAKOfFEA5 sDN9kT0soDjaqybikSTwbHvd iaRigJznOVmsFUohA996DYUaiA fdAkLxnsOoUBLmpLA9YX35CC47 zGCsi1M3xXJ0U3TvMVQttxnj xwhoyCX6VPSwRSRpoD42Pk6dvJ rzGs8pKWIpPLU2WSEehJFvA9Tc yC0eBwKaTQKpMHDiD9DsyMYg TIqhO442RRxmSmU1LLBcavTqX6 HjQVElbHnnTyC0r1I8Lq8ZX5B7 UU93DK27nVUzh3K2xVI9A9Lu YSGmxtttbumnjUJ7XCFyATUsmL 00Fw8qaCykUn7sHDVoNUG2NEVi dGMgB2RmbQ0xWvKtSIFiWPJx J1UajBWnVJieB922JSgvJfY9WT ZkkuBqM1XzOELxfMbzEoZ6u1G8 Rg1PITg2YY21EP61yOHzb3Q2 iZX1T2TbCKWnmjhttlflvGD8OP GeEEBwkY77Tt5uoEmsEn5bLGDb NEX7MZVykGGlX0TfaU2hGoDl VHOlVWQgZ2MqcRHaQImbC508PN kuXuD6BHLzunRkQ9AxDZZgyAav YmV9x0S6Td6MIJFoMJ10DVP3 aTW8BH11TR71T0EjChsfvXCgwH U+PHRhYmxlIHdpZHRoPScxMDAl BpKtjGduEL5wZa4zUPLaWVEl xHojiVOtEhLyq9ewKQAuSZrfSR 6myOogE0RryML5WXLnx3q5Pe68 G01oC2OzkTP+UIAyrDS0jBY4 rQ4mOpSiDpD6WMtzR481CxCkfF XpEnrcy7yyx2mdgTl5FxH7RARn acUvqDekBSH6d4KjSr63B92t IHdpZHRoPSIxNSUiIHZhbGlnbj 1unK0yOz9+JMSthFP9jJL6gF1o DnBmYtN0UCqsI227XpRnbXLw Imhja4pby9jxuTw5RtUrXHEcrw KhsWlpUIO1t9WfTj29F8UyjNrm b5VqYlh9dj22uYLoq4M3jTU4 O5XvNVPbtwblqTTsuEgqNC2gCL SktbkxYVKckG5lEBWtK9s5LdIo HmP3VHonY6DdedF0ANPsuRFm QGenMVE6U49ic7J0EIAgFDWiQN K5aRO9bW2xaWdgfoeybGAqpKpc lyExxUefNAsjCGfpX054KJWy vHdfQYIyaY2uQRHckGInwHqbVM 0tCXHgntodKtUPD1MKF2FhKDAW JJTNO3iPIM08LG32eMLoc5B4 sOI0S6ZlZXHyrfrbyzzqbAF3WR UvVWKvsD18gSDnXAejAh5ig4S7 n507BTZyEOSswW06Ue9gnRwy SRFpnOLViT9slubzm2uhgbodIv VzXTBtBEd2AQd4DMUgzUfvDlVt SBY9KzI5WLC2zPRdtL3kqDwr kmxpuH5eSqs+RBPgRISvNBv5Ho wvdGQ+JZZbDLD1wYwyKZfeMCIy fP7tDEFmD5q6GbSdElN2FJis K7NcNGFoknrwFd47yZ0nJkGqEg O1UUbkM4LubmU2JKEfaGJdALju QSE9P45qx3S3YFOdUVKmHJA8 rQZ2eS5ngLkdpxsesZJleVuwtq MikQhnMZexLPrjM638OGSgwGbm Hdn4STkuVLLzPT90EC86dDZp u1X8jLV9D8MxRUCdltyosaaodB X3OOKtIUHsiU68jRMaVUsqZw1r p8G0q729RGGdDQCvcH48Ej2y uGnhFULifQXLbA8sxjbzf0cdqs byMfUjCHOzZDn0YCd2ZOYqdQcn CpFbNFH6CeD9WGY8sZOatE0y oPzqqsbneQ8iLgx+RmVtYWxlPC 77AH10mPTeh7W9lYN5F7ThZNKp dtctxgmuqSO4UGSbJRCsnZ25 aAIuEFreNm4eb3O0y220ROXvNJ OokO69Ym5aoXitVQRjgDXHqS8g zqqbl7akqvjiHuNgSNHyAKh1 ZMb5QZClrSolBgMtABK8AnG2GD L4uXXtcM6xgDxwpwgzpG9sYio+ NZ6ngNejzP2qvG9OPS0yZOUf zAOKySGlIBT2JH44DV23Z8EdTc wvdGFibGU+PHRhYmxlIHdpZHRo VXuoUFUwEvOeqMikRX7dYh9i CWBbLUKqmEdxvGJnGkWxc5xqSC SaSFvmBD0iyBczV2JzoPS3JOWj d1o9Eg55C32eG3TrsAM+PGNv xDB1iHX2kJ3mQnTmEuC3KQbyW5 19GrIkwUZoLfugr1wph9tfeEj6 ElYiNSBjmoDbaQkcOJM8v8Lz La97A11lPRegWHNiIASzUKWnXB IxhJimqx9lgO3hAn3+PGNvbCB3 kFR5rA6zEyUeWdF7COedV616 NySlmHLvAipwN25jM6BojVP+PH VdMbi3PTComWtfSJ4gnLNjAJhs Bp5yVTM5GmQsQcKlZPppF0Be KTFmhlhsqlnrhDE4DUHwBGAepJ 14Vf1olYjpXh4fWFKiPSX8VRWw gDIhG0RdoA3fMaEfOPIfUSPp D9BoeDXeSAziZ175DCllAkH2HC VjdpZlO2AcZDOkwAvfMbG5r0D9 Pj7NlJconNSuGR7jObOqRBh7 L7HbNpw5WJYomUbnMK5keEHmES nrMh7hwZlynZwxJF5oFDCrtmjs r137EeSfs4ucUGVyqOZfGOhg LDR3A79ig6N1XTQyBSZrNYV6fP T3hG9ceNwonfesbSVrqDkdstCl lZwwVHslMEjbM835BMJemLyr NfAZWnt6P3KiJhw0BQOfdNemOC 8uzVQxPAwxEi0wpWgbfEmfVB5f DOWqectac863WgQhg7tuYPNp pEUbRHsyRHS7P86nm8J9LFCvXM MmIKN1qWI9aC2pxTuwdcikrNDg kGpdevFpqPrsKLafJWmtQ374 GKPicAomKt6DYeb7W8AvTnx3VU MzjSaeTD9muKEuCNugGl4ggHfy uRzaLC6kHSZerxkoj908DnVl n6cgQBFqnOPwVTvxKDT4R93on4 U8AYJeTYCrHBX0fHF2pF7stAva bjogbGVmdDsgdmVydGljYWwt RRquX753LZQzrXulFdTzyHUcEk wvdGQ+UH64gm81X6PeChgwYti5 BWPeWSE2cKE8hJ0sHCOlUKml c3R5 (more content not included)... Normal [facility] Consultation Noteon 02-26-20 Consultation Note Patient: MAYA PERRY Age: 81 years Sex: Female : 1940 Associated Diagnoses: None Author: Nick Wasserman MD Impression and Plan CONSULT DICTATED TRIVIAL TROPONIN RISE DUE STRESS RELAATED TO INTRAABDOMEINAL PROCESS HAD NORMAL CARDIOLYTE IN AUGUST OF 2021 (5 MONTHS AGO) -- NO SCAR, NO ISCHEMIA, NORMAL EF HAD NORMAL ECHO IN AUGUST OF 2021 REC: TREAT INTRABDOMINAL PROCESS CARDIAC STATUS IS STABLE AND NO WORK UP NEEDED Normal [facility] Comment on above: Result Comment: Elec tronically Signed By: Nick Wasserman MD\.br\Date and Time Signed: 02/25/22 14:40 EST Discharge Instructionson Discharge Instructions [id number]:[id number] Normal [facility] Inpatient Clinical Summaryon 02-25-2022 Inpatient Clinical Summary [place] [id number] Clinical Summary Person Information: Name: ADINA PERRY Age: 81 Years : 1940 Sex: Female PCP: ADRIANA CRUZ DO Marital Status: Race: White Ethnicity: Non- or Language: [place] Visit Id: Visit Reason: Fatigue; Post surgical problem; ABD PAIN, ABNORMAL 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 Speciality: Acuity: Enc Type: Observation Med Service: Medical Arrival: 02/24/2022 13:07:19 Discharge: Dispo Type: Admitted as IP to this Hosp Address: [address] [place] [address] [address] [place] [id number] Provider Notes: Diagnosis: 1:Abdominal pain; 2:S/P hernia [...] Percocet (Nausea) Darvocet-N 100 (vomiting) oxyCODONE (Vomiting) [place] (Vomiting) Measurements: Height: 146 cm Weight: 49.7 [...] Care Team Members: Attending Physician: MELI ERIC, [facility]caty Consulting Physician: Jay Power MD, MD, Mourhaf Referring Physician: Follow up: With: Address: When: ADRIANA CRUZ [address] [place] [address], [address] [place] [address] [facility] (1) 03/10/2022 11:00 AM Comments: Appointment will be with the FOUNDRY SUPERINTENDANT With: Address: When: Jay Power 03/03/2022 9:00 AM Comments: Call for followup appointment 2-3 weeks or if already scheduled keep appt. Type Location Start [facility] Post Op [facility] 03/03/2022 9:00 AM 03/03/2022 9:20 AM Confirmed Patient Education Information: Weakness; Abdominal Pain, Adult, Xeyw-do-Fvxp Normal [facility] Inpatient Patient Summaryon 02-25-2022 Inpatient Patient Summary [...] Test Results None Pharmacy Information [facility] Previously Scheduled Follow-Up Appointments Thursday 9:00 AM EST With: Jannet ERIC, Jay Lock Where: [facility] [place] Normal [facility] Inpatient Patient Summary ADINA PERRY :1940 [...] Test Results None Pharmacy Information [facility] Previously Scheduled Follow-Up Appointments Thursday 9:00 AM EST With: Jannet ERIC, Jay Lock Where: [facility] Inpatient Patient Summary [address] [address] Patient Discharge Instructions PERSON INFORMATION Name: ADINA [...] Follow up: With: Address: When: ADRIANA CRUZ [address] [place] [address], [facility] [address] [place] [address] Business (1) 03/10/2022 11:00 AM Comments: Appointment will be with the FOUNDRY SUPERINTENDANT With: Address: When: Jay Power 03/03/2022 9:00 AM Comments: Call for followup appointment 2-3 weeks or if already scheduled keep appt. In the event that this physician does not participate in your insurance network, please consult with your insurance company to find a nearby participating provider. Type Location Start [facility] Post Op 15 [facility] 03/03/2022 9:00 AM 03/03/2022 9:20 AM Confirmed [...] [facility] every day. Pharmacy Information: [facility] Comment: PATIENT EDUCATION INFORMATION Instructions: Weakness [...] ? Stre (more content not included)... Normal [facility] Interdisciplinary Note - Reji e Manageron 02-25-2022 Interdisciplinary Note - Custom [employer] CRM to room to discuss DC planning. [...] later today or 02/26. CRM following [facility] Comment on above: Result Comment: Elec [...] safely and independently once medically stable. [facility] Main OR Intraoperative Recor don 02-25-2022 Main OR Intraoperative Record Normal [facility] Monitor Recordon 02-25-2022 Monitor Record [id number]:[id number] Normal [facility] Monitor Record [id number]:127 [facility] Postoperative Documentson Postoperative Documents [id number]:127 [facility] Troponin 9 Hr.on 02-25-2022 Troponin I.cardiac [Mass/Vol] 90.10 pg/mL Abnormal 10.10-27.1 0 [facility] Comment on above: Result Comment: Crit [...] Sensitivity Troponin I Instructions For Use, [employer] [place], November 2017) Performed By: #### 1 [id number] #### [facility] [address] [place] [address] Auto Diffon 02-24-2022 Basophils/100 WBC (Bld) 2.8 % High 0.0-2.0 [facility] Comment on above: Order Comment: Order Added by Discern Expert. Performed By: #### 1 [id number], [id number], [id number], [id number], [id number] ####[facility] [id number] [place] [address] Basophils/Leukocytes Auto (Bld) [Pure # fraction] 0.2 E9/L Normal 0.0-0.2 [facility] Comment on above: Order Comment: Order Added by Discern Expert. Performed By: #### 1 3457328, 3597273, 4838453, 6863798, 45172028, 7852728, 4028968, 7045843 ####[facility] [address] [place] [address] Eosinophils/100 WBC (Bld) 3.6 % Normal 0.0-8.0 [facility] Comment on above: Order Comment: Order Added by Discern Expert. Performed By: #### 1 3291669, 5290945, 3087336, 6242674, 32503815, 2923104, 7382879, 0039018 ####[facility] [address] [place] [address] Eosinophils/Leukocyte s Auto (Bld) [Pure # fraction] 0.3 E9/L Normal 0.0-0.5 [facility] Comment on above: Order Comment: Order Added by Ramírez Expert. Performed By: #### 1 0544666, 7198878, 8259011, 5851461, 72949706, 7798274, 8196137, 1236143 ####[facility] [address] [place] [address] Lymphocytes/100 WBC (Bld) 12.3 % Low 14.0-50.0 [facility] Comment on above: Order Comment: Order Added by Discern Expert. Performed By: #### 1 6183390, 0650087, 1719488, 9856005, 01470814, 8038994, 8666809, 6083625 ####[place] [place] [address] Lymphocytes/Leukocyte s Auto (Bld) [Pure # fraction] 1.0 E9/L Normal 1.0-4.0 [facility] Comment on above: Order Comment: Order Added by Ramírez Expert. Performed By: #### 1 1159247, 6781258, 9311079, 1312185, 81175026, 3608147, 4059634, 9686245 ####[address] [place] [address] Monocytes/100 WBC (Bld) 7.4 % Normal 4.0-14.0 [facility] Comment on above: Order Comment: Order Added by Ramírez Expert. Performed By: #### 1 7376539, 9749107, 0463580, 7232476, 38373641, 5737040, 2326187, 6424256 ####[address] [place] [address] Monocytes/Leukocytes Auto (Bld) [Pure # fraction] 0.6 E9/L Normal 0.2-1.0 [facility] Comment on above: Order Comment: Order Added by Ramírez Expert. Performed By: #### 1 3221857, 1576587, 5075610, 0021832, 41635779, 6213905, 3143810, 4501267 ####[address] [address] Neutrophils/100 WBC (Bld) 73.9 % Normal 36.0-75.0 [facility] Comment on above: Order Comment: Order Added by Discern Expert. Performed By: #### 1 9743923, 5816149, 3519742, 6774635, 37461969, 2253577, 2280041, 5777366 ####[facility] [address] [place] [address] Neutrophils/Leukocyte s Auto (Bld) [Pure # fraction] 6.2 E9/L Normal 2.0-7.5 [facility] Comment on above: Order Comment: Order Added by Discern Expert. Performed By: #### 1 1644972, 0776257, 6682141, 9553400, 44881608, 2282349, 7267223, 2148493 ####[facility] [address] [place] [address] BMPon 02-24-2022 Creatinine [Mass/Vol] 1.1 mg/dL Normal 0.5-1.3 [facility] Comment on above: Performed By: #### 1 7348790, 1868683, 6765291, 0718823, 85167007, 3979513, 0565300, 2270729 ####[facility] [address] [place] [address] Urea nitrogen [Mass/Vol] 18 mg/dL Normal -21 [facility] Comment on above: Performed By: #### 1 2430955, 8230267, 0556310, 1431676, 57170690, 5859260, 2362025, 3562274 ####[facility] [address] [place] [address] Urea nitrogen/Creatinine [Mass ratio] 16 No Units Normal 10-20 [facility] Comment on above: Performed By: #### 1 2903717, 8198707, 5288572, 7029222, 68125806, 3938893, 1166961, 5929677 ####[facility] [address] [place] [address] Anion gap [Moles/Vol] 16 mmol/L Normal 6-16 [facility] Comment on above: Performed By: #### 1 0406183, 9846566, 0891574, 1674771, 49037752, 0815982, 3076352, 3214467 ####[facility] [address] [place] [address] Calcium [Mass/Vol] 10.5 mg/dL Normal 8.9-11.1 [facility] Comment on above: Performed By: #### 1 5401466, 8930306, 3914969, 6095267, 87375336, 9384316, 0852489, 9224241 ####[facility] [address] [place] [address] Chloride [Moles/Vol] 97 mmol/L Low 101-111 [facility] Comment on above: Performed By: #### 1 5581300, 4205856, 9578096, 0885310, 17138693, 3564793, 9553615, 5850365 ####[facility] [address] [place] [address] CO2 [Moles/Vol] 28 mmol/L Normal 21-31 [facility] Comment on above: Performed By: #### 1 2998971, 2828474, 8765715, 5809663, 51343646, 4101668, 0465952, 8395478 ####[facility] [address] [place] [address] Glucose [Mass/Vol] 137 mg/dL Normal 55-199 [facility] Comment on above: Result Comment: If t his glucose result represents a fasting glucose, interpretation should refer to the following reference range: 55-99 mg/dL Performed By: #### 1 4126562, 8415163, 2876682, 0916868, 81382105, 8986718, 1141917, 7558532 ####[facility] [address] [place] [address] Potassium [Moles/Vol] 3.5 mmol/L Normal 3.5-5.3 [facility] Comment on above: Performed By: #### 1 8039377, 3008963, 2535110, 6979387, 95476456, 5959746, 1278153, 8432092 ####[address] [place] [address] Sodium [Moles/Vol] 137 mmol/L Normal 135-145 [facility] Comment on above: Performed By: #### 1 1291731, 0699272, 9784608, 9651699, 19566245, 7500975, 5014895, 7663422 ####[address] [address] CBC w/ Auto Diffon Erythrocyte distribution width (RBC) [Ratio] 13.4 % Normal 10.9-14.2 [facility] Comment on above: Performed By: #### 1 5355406, 3155079, 3049622, 0878302, 63006329, 3133658, 5209846, 1378319 ####[address] [address] Hematocrit (Bld) [Volume fraction] 39.5 % Normal 34.0-46.0 [facility] Comment on above: Performed By: #### 1 6934668, 4796130, 4141148, 8657433, 59074672, 8413248, 0626843, 4004161 ####[address] [address] Hemoglobin (Bld) [Mass/Vol] 14.1 g/dL Normal 12.0-16.0 [facility] Comment on above: Performed By: #### 1 8507764, 3328356, 9562371, 7588879, 84088423, 6166675, 7712014, 0036631 ####[address] [address] MCH (RBC) [Entitic mass] 31.2 pg Normal 27.0-34.0 [facility] Comment on above: Performed By: #### 1 8076179, 2992724, 5740132, 9770302, 20959773, 6288587, 3899573, 1392651 ####[facility] [address] [place] [address] MCHC (RBC) [Mass/Vol] 35.7 g/dL Normal 31.4-36.0 [facility] Comment on above: Performed By: #### 1 7208232, 9552166, 4436587, 5530168, 69059698, 8667399, 2019938, 1213595 ####[address] [place] [address] MCV (RBC) [Entitic vol] 87.4 fL Normal 80.0-100.0 [facility] Comment on above: Performed By: #### 1 9626275, 3843706, 1803175, 8211114, 68658654, 7168731, 6793751, 3124179 ####[place] [address] Platelet mean volume (Bld) [Entitic vol] 8.3 fL Normal 6.4-10.8 [facility] Comment on above: Performed By: #### 1 2333933, 2155435, 8426417, 6928068, 76471104, 0377597, 5769850, 1715052 ####[place] [address] Platelets (Bld) [#/Vol] 295.0 E9/L Normal 150.0-500. 0 [facility] Comment on above: Performed By: #### 1 8739334, 6565410, 0298092, 9315259, 84247684, 5975562, 1046098, 9728369 ####[facility] [address] [place] [address] RBC (Bld) [#/Vol] 4.5 E12/L Normal 4.3-5.9 [facility] Comment on above: Performed By: #### 1 4925361, 1605449, 1774583, 1369456, 21041898, 3852123, 6678620, 5353756 ####[place] [address] WBC corrected for nucl RBC Auto (Bld) [#/Vol] 8.4 E9/L Normal 4.0-11.0 [facility] Comment on above: Performed By: #### 1 9000048, 0511575, 8824246, 9782440, 54614714, 1717819, 0079922, 9637422 ####[facility] [address] [place] [address] CT Abdomen/Pelvis w/ Contras ton 02-24-2022 CT [...] ml's: 81 Rectal Contrast Given? No Normal [facility] CTA Cheston 02-24-2022 CTA Chest Exam [...] FINAL REPORT (more content not included)... Normal [facility] Consent for Treatmenton 02-05 Consent for Treatment [id number]:127 Normal [facility] ED Clinical Summaryon 2021 ED Clinical Summary (Inserted Image. Elvia ble to display) [place] [id number] ED Clinical Summary Person Information [facility]: [facility] Age[facility] 81 Years : 1940 Sex: Female Language: Sao Tomean PCP: ADRIANA CRUZ DO Marital Status: Visit Id: Visit Reason: Fatigue; Post surgical problem; [id number] PAIN Speciality: Acuity: 2 Enc Type: Emergency Med Service: Emergency Arrival: 02/24/2022 13:07:19 Discharge: LOS: 000 05:49 Checkin: 02/24/2022 13:07:19 Checkout: 02/24/2022 18:56:59 Dispo Type: Admitted as IP to this [facility] EVENTS: Event Name Event Status Request [...] 18:56:59 02/24/2022 18:56:59 02/24/2022 18:56:59 ADDRESS: [address] [place] [address] [address] [place] [phone] PHYS DOC NOTES: MEDICAL INFORMATION: Prescriptions Given: [...] Abdominal pain; Abnormal cardiac enzyme level Normal [facility] ED Note-Physicianon 02-25-20 ED Note-Physician Basic [...] she is known to Dr. Wasserman from [facility] cardiology. She also stated that previously [...] puff(s), Inhalatio (more content not included)... Normal [facility] Comment on above: Result Comment: Elec tronically Signed By: Jay Emery DO\.br\Date and Time Signed: 02/24/22 17:27 EST ED Patient Education Noteon 02-24-2022 ED Patient Education Note Normal [facility] ED Patient Summaryon 022 ED Patient Summary (Inserted Image. Elvia ble to display) [place] [id number] Patient Discharge Instructions Person Information Name: ADINA PERRY Age: 81 Years Arrival Date: 02/24/2022 13:07:19 Discharge Diagnosis: Abdominal pain; Abnormal cardiac enzyme level Primary Care Physician: ADRIANA CRUZ DO Provider Information Primary Provider: Jay Emery DO Advanced Graphic Engineer:None The exam and treatment you received in the Emergency Department were for an urgent problem and are not intended as complete care. It is important that you follow up with a doctor, nurse practitioner, or physician?s medical library assistant for ongoing care. If your symptoms [...] opioids can be used to help relieve tjgiospi-cn-nkyjtq pain and are often prescribed following a [...] struggling with addiction, tell your health animal care assistant and ask for guidance or call [facility]?S National Helpline at 0-888-531-JEVO. v Source: [place] Department of Health and Human Services/Center for Disease Control & Prevention [facility] Medications Given: Med (more content not included)... Normal [facility] Hep Func Panelon 02-24-2022 Albumin [Mass/Vol] 4.4 g/dL Normal 3.3-5.0 [facility] Comment on above: Performed By: #### 1 3673873, 2582292, 6468304, 9677095, 04314760, 3395271, 1704340, 5601423 ####[facility] [address] [place] [address] Albumin/Globulin (S) [Mass conc ratio] 1.3 Normal 1.1-2.2 [facility] Comment on above: Performed By: #### 1 5581577, 1027542, 4379417, 7460169, 36351096, 3834875, 2687782, 5713065 ####[facility] [address] [place] [address] ALP [Catalytic activity/Vol] 72 Int._Unit/L Normal 21-98 [facility] Comment on above: Performed By: #### 1 7372795, 7811251, 9170300, 9028976, 37887200, 9698707, 9858328, 0812942 ####[facility] [address] [place] [address] ALT No additional P-5'-P [Catalytic activity/Vol] 16 Int._Unit/L Normal 6-46 [facility] Comment on above: Performed By: #### 1 8108705, 8024591, 6634589, 3487907, 20994467, 0161012, 1314359, 5926359 ####[facility] [address] [place] [address] AST [Catalytic activity/Vol] 18 Int._Unit/L Normal 5-43 [facility] Comment on above: Performed By: #### 1 8371422, 9404072, 7179203, 5876794, 36657319, 2817055, 4196997, 8183436 ####[facility] [address] [place] [address] Bilirubin [Mass/Vol] 0.7 mg/dL Normal 0.0-1.1 [facility] Comment on above: Performed By: #### 1 8285046, 9594012, 9712606, 8149876, 29202282, 3588067, 1353014, 2822943 ####[facility] [address] [place] [address] Bilirubin.direct [Mass/Vol] 0.1 mg/dL Normal 0.1-0.4 [facility] Comment on above: Performed By: #### 1 9770459, 5207660, 8230700, 1088281, 22520339, 9189356, 4418496, 6038888 ####[facility] [address] [place], [place] [address] Bilirubin.indirect [Mass or moles/Vol] 0.6 mg/dL Normal 0.1-0.9 [facility] Comment on above: Performed By: #### 1 3776152, 2816631, 5394314, 9496576, 88295662, 0551560, 1545605, 9102149 ####[facility] [address] [place] [address] Globulin (S) [Mass/Vol] 3.5 g/dL Normal 1.4-4.0 [facility] Comment on above: Performed By: #### 1 2702893, 3472718, 8543861, 2652763, 78129627, 6873057, 8934869, 5832149 ####[facility] [address] [place] [address] Protein [Mass/Vol] 7.9 g/dL High 6.0-7.8 [facility] Comment on above: Performed By: #### 1 4467140, 0488471, 5638079, 6969613, 48284977, 7120315, 4425723, 6188418 ####[facility] [address] [place] [address] Lactic Acidon 02-24-2022 Lactate [Mass/Vol] 1.5 mmol/L Normal 0.5-2.2 [facility] Comment on above: Performed By: #### 1 1910394, 7324191, 4153906, 8852998, 91572894, 7911241, 8718375, 6197940 ####[facility] [address] [place] [address] Lipase Levelon 02-24-2022 Lipase [Catalytic activity/Vol] 43 U/L Normal 13-58 [facility] Comment on above: Performed By: #### 1 0593671, 8385462, 5696468, 3367952, 38367457, 9861792, 5110519, 5410916 ####[facility] [address] [place] [address] Monitor Recordon 02-24-2022 Monitor Record [id number]#[id number]:127 Normal [facility] Monitor Record [id number]#[id number]:127 Normal [facility] Operative Reporton Operative Report SURGERY DATE: 2021 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 She is here today for robotic [...] in a stable condition. Jay Power M.D. young Dictated: 02/19/2022 [id number] Transcribed: 02/19/2022 Normal [facility] Comment on above: Result Comment: Elec tronically Signed By: Jannet ERIC, Jay Downing\Date and Time Signed: 02/24/22 07:55 EST Troponinon 02-24-2022 Troponin I.cardiac [Mass/Vol] 105.90 pg/mL Abnormal 10.10-27.1 0 [facility] Comment on above: Result Comment: Crit ical Result I_hsTnI:105.[address] EMERY at ER by TIERRA ARMENTA and read back for confirmation at 02/24/2022 17:57:53 The 95% CI (Confidence Interval) PPV (Positive Predictive Value) for myocardial infarction in females is 38 pg/mL, in males 51 pg/mL. The results should be used in conjunction with clinical conditions of myocardial infarction. (Yatra High Sensitivity Troponin I Instructions For Use, [employer], November 2017) Performed By: #### 2 622511 #### [facility] [address] [place] [address] Troponin 0 Hr.on 02-24-2022 Troponin I.cardiac [Mass/Vol] 96.00 pg/mL Abnormal 10.10-27.1 0 [facility] Comment on above: Result Comment: Crit [...] High Sensitivity Troponin I Instructions For Use, [employer], November 2017) Performed By: #### 1 0174078, 3185098, 6057370, 5334658, 29472441, 6305509, 0911999, 2456538 ####[facility] [address] [place] [address] Troponin 6 Hr.on 02-24-2022 Troponin I.cardiac [Mass/Vol] 105.10 pg/mL Abnormal 10.10-27.1 0 [facility] Comment on above: Result Comment: Crit ical Result verified by previous result\ Critical Result I_hsTnI:105.1 Called to ARMAND DNEG at 3N by TIERRA ARMENTA and read back for confirmation at 02/24/2022 21:38:01 The 95% CI (Confidence Interval) PPV (Positive Predictive Value) for myocardial infarction in females is 38 pg/mL, in males 51 pg/mL. The results should be used in conjunction with clinical conditions of myocardial infarction. (Access High Sensitivity Troponin I Instructions For Use, [employer], November 2017) Performed By: #### 1 0013209 #### [facility] [address] [place] [address] UA With Cult Reflexon 2021 Bilirubin Ql (U) Negative Normal Negative [facility] Comment on above: Performed By: #### 2 637953, 92808015 #### [facility] [address] [place] [address] Clarity (U) CLEAR Normal Clear [facility] Comment on above: Performed By: #### 2 330032, 54022453 #### [facility] [address] [place] [address] Color (U) YELLOW Normal Yellow [facility] Comment on above: Performed By: #### 2 326084, 93773051 #### [facility] [address] [place] [address] Epithelial cells.squamous LM.HPF (Urine sed) [#/Area] 0-2 Normal 0-2 [facility] Comment on above: Performed By: #### 2 743752, 17914155 #### [facility] [address] [place] [address] Glucose Test strip (U) [Mass/Vol] Negative Normal Negative [facility] Comment on above: Performed By: #### 2 424461, 25328026 #### [facility] [address] [place] [address] Hemoglobin Ql (U) Negative Normal Negative [facility] Comment on above: Performed By: #### 2 386947, 23915187 #### [facility] [address] [place] [address] Ketones (U) [Mass/Vol] Negative Normal Negative [facility] Comment on above: Performed By: #### 2 547205, 34107926 #### [facility] [address] [place] [address] Bixby.plasma/Lithiu m.RBC (Bld) [Mass ratio] 0-3 Normal 0-3 [facility] Comment on above: Performed By: #### 2 021383, 45641297 #### [facility] [address] [place] [address] Nitrite Ql (U) Negative Normal Negative [facility] Comment on above: Performed By: #### 2 304306, 40273756 #### [facility] [address] [place] [address] pH (U) 7.0 [pH] Invalid Interpretation Code 5.0-9.0 [facility] Comment on above: Performed By: #### 2 450776, 06067063 #### [facility] [address] [place] [address] Protein (U) [Mass/Vol] Negative Normal Negative [facility] Comment on above: Performed By: #### 2 837006, 69808540 #### [facility] [address] [place] [address] Specific gravity (U) [Rel density] 1.010 Invalid Interpretation Code 1.005-1.03 0 [facility] Comment on above: Performed By: #### 2 685219, 81308231 #### [facility] [address] [place] [address] Type of Urine collection method Clean Catch Normal [facility] Comment on above: Performed By: #### 2 155584, 92186151 #### [facility] [address] [place] [address] Urobilinogen Qn (U) 0.2 {Gemma'U}/dL Normal 0.0-1.0 [facility] Comment on above: Performed By: #### 2 315659, 19868975 #### [facility] [address] [place] [address] WBC Auto Ql (U) 1+ Abnormal Negative [facility] Comment on above: Performed By: #### 2 343852, 26827067 #### [facility] [address] [place] [address] WBC LM.HPF (Urine sed) [#/Area] 0-5 Normal 0-5 [facility] Comment on above: Performed By: #### 2 087910, 54327465 #### [facility] [address] [place] [address] XR Chest Single Viewon 02-24 XR Chest [...] DO Transcribed by: PRESTON Technologist: JOSEPH, Jd [facility] eGFRon 02-24-2022 GFR/1.73 sq M.predicted among blacks MDRD (S/P/Bld) [Vol rate/Area] 58 mL/min/1.73 m2 Low >=59 [facility] Comment on above: Order Comment: Order added by Discern Expert. Result Comment: eGFR is race adjusted. AA=. Performed By: #### 1 5869961, 0813239, 2497369, 6630968, 65598366, 0498500, 8560563, 9483649 ####[facility] [address] [place] [address] GFR/1.73 sq M.predicted among non-blacks MDRD (S/P/Bld) [Vol rate/Area] 48 mL/min/1.73 m2 Low >=59 [facility] Comment on above: Order Comment: Order added by Discern Expert. Result Comment: [employer] serene kidney disease could be indicated at eGFR's of less than 60 mL/min/1.73m2. Kidney failure is indicated at less than 15 mL/min/1.73m2. Performed By: #### 1 6847949, 5998124, 8089810, 4121442, 00761715, 9428471, 3385334, 7205087 ####[place] [address] [place] [address] Consent for Anesthesiaon Consent for Anesthesia [id number]#[id number]:127 Normal [facility] Discharge Instructionson Discharge Instructions [id number]#1.00CD:127 Normal [facility] IntraOperative Documentson 04-22-2021 IntraOperative Documents [id number]#[id number]:127 Normal [facility] IntraOperative Documents [id number]#1.00CD:127 Normal [facility] Preoperative Documentson Preoperative Documents [id number]#1.00CD:127 Normal [facility] Preoperative Documents [id number]#1.00CD:127 Normal [facility] Consent for Treatmenton 02-04 Consent for Treatment [id number]#1.00CD:127 Normal [facility] Inpatient Patient Summaryon 02-19-2022 Inpatient Patient Summary [address] [address] [facility] Clinical Discharge Instructions PERSON INFORMATION Name: ADINA PERRY PHYSICIANS Admitting Physician: Jay Power MD Attending Physician: Jay Power MD PCP: ADRIANA CRUZ DO Discharge Diagnosis: Comment: PATIENT EDUCATION INFORMATION Instructions: Post Op Patient Instructions - FT (CUSTOM); Laparoscopic Ventral Hernia Repair, Care After Medication Leaflets: Follow up: With: Address: When: Jay Power [address], [facility] [address], [facility] [address] [place] [phone] Business (1) In 7 days 02/26/2022 Comments: Call for followup appointment MEDICATION LIST New Medications [email or web address] [place], [place] [phone], [phone] acetaminophen-hydrocodone ([place] 325 mg-5 mg oral tablet) 1 Tablets [...] Milligram By Mouth every day. Comment: Normal [facility] Main OR PACU I Recordon 02-04 Main OR PACU I Record PACU Phase I Docum ent Type FT Summary Primary Physician: Jay Power MD Finalized Date/Time: 02/19/22 12:21:31 Pt. Name: ADINA PERRY /Sex: 1940 Female Med Rec #: [id number] Physician: Jay Power MD Financial #: [id number] Pt. Type: A Room/Bed: [facility] Admit/Disch: 02/19/22 05:56:04 - Institution: [...] 12:21 Pavithra Saeed RN 02/19/22 12:21 Normal [facility] Main OR PACU II Recordon Main OR PACU II Record PACU Phase II Document Type FT Summary Primary Physician: Jay Power MD Finalized Date/Time: 02/19/22 16:14:48 Pt. Name: ADINA PERRY /Sex: 1940 Female Med Rec #: [id number] Physician: Jay Power MD Financial #: [id number] Pt. Type: A Room/Bed: [place] [address] Admit/Disch: 02/19/22 05:56:04 - Institution: Case Times [...] By: Jennie Garcia RN 02/19/22 16:14 Normal [facility] Main OR Preoperative Recordo n 02-19-2022 Main OR Preoperative Record PreOp Document Type FT Summary Primary Physician: Jay Power MD Finalized Date/Time: 02/19/22 08:51:16 Pt. Name: ADINA PERRY Umberto/Sex: 1940 Female Med Rec #: [id number] Physician: Jay Power MD Financial #: [id number] Pt. Type: A Room/Bed: [place] [address] Admit/Disch: 02/19/22 05:56:04 - Institution: Case Times [...] Signed By: Olivier Loza 02/19/22 08:51 Normal [facility] Monitor Recordon 02-19-2022 Monitor Record [id number]:127 Normal [facility] Operative Reporton 2 Operative Report Patient: [...] reparations continued for the proposed operation.. Normal [facility] Comment on above: Result Comment: Elec tronically Signed By: Rk Moreno Jr., DO\.br\Date and Time Signed: 02/19/22 08:20 EST Outpatient Surgery Discharge Instructionon 02-19-2022 Outpatient Surgery Discharge Instruction [place] [id number] Patient Discharge Instructions PERSON INFORMATION Name: ADINA [...] Follow up: With: Address: When: Jay Power [address], [address], [facility] [address] [place] [address] [phone] Business (1) In 7 days 02/26/2022 Comments: [...] to serve you. Thank you for choosing [facility] HERE ARE THE MEDICATION CHANGES THAT OCCURRED DURING YOUR HOSPITAL STAY New Medications [email or web address] [address], [address], [place] [id number], [phone] acetaminophen-hydrocodone ([place] 325 mg-5 mg oral tablet) 1 Tablets [...] and water are not available, use hand strand galvanizer. ? Change your dressing as told by [...] ? Do (more content not included)... Normal [facility] Patient Education - Texton 1 04-21-2021 [...] and water are not available, use hand strand galvanizer. ? Change your dressing as told by [...] care provider approves. General instructions ? Take azuh-zaz-nocxozp and prescription medicines only as told by your health care provider. ? To prevent or treat constipation while you are taking prescription pain medicine, your health care provider may recommend that you: ? Take hewg-gep-szkltsy or prescription medicines. ? Eat foods that [...] 03/09/2013 Document Revised: 03/05/2018 Document Reviewed: 11/12/2016 [email or web address] Patient Education ? 2019 [employer] [facility] Progress Note-Physicianon Progress Note-Physician Patient: ADINA PERRY Age: 81 years Sex: Female : 1940 Associated Diagnoses: None Author: Rk Moreno Jr., DO Postoperative Information Post Operative Note: Post Anesthesia Care Unit. Anesthetic utilized: General. Health Status Allergies: Allergic Reactions (Selected) Moderate Percocet- Nausea. Severity Not Documented Darvocet-N 100- Vomiting. Problem list: All Problems BMI 20.0-20.9, adult / SNOMED CT 7125345364 / Confirmed Incisional hernia / SNOMED CT 529187641 / Confirmed RLQ abdominal pain / SNOMED CT 844195866 / Confirmed Ventral hernia / SNOMED CT 6773949839 / Confirmed Weight loss / SNOMED CT 749815684 / Confirmed Resolved: Anemia / SNOMED CT 461451418 Resolved: Fecal incontinence / SNOMED CT 367668473 Resolved: History of colon polyps / SNOMED CT 7065595113 Resolved: Nausea and vomiting / SNOMED CT 29127036 Resolved: Watery diarrhea / SNOMED CT 022655379 Physical Examination Vital Signs 02/19/2022 14:13 EST [...] to self (more content not included)... [facility] Comment on above: Result Comment: Elec [...] Histories Past Medical History: Resolved Watery diarrhea (670365904): Resolved. Fecal incontinence (305780340): Resolved. Nausea and vomiting (57077934): Resolved. History of colon polyps (4667886037): Resolved. Anemia (462533098): Resolved. Family History: Heart disease Father Primary malignant neoplasm of lung Sister Diabetes mellitus type 2 Father Brother Procedure history: Colonoscopy ([id number]) on 01/17/2022 at 81 Years. Comments: 01/17/2022 11:03 HANG Becerra RN, Jennifer biopsies, diverticulosis EGD - Esophagogastroduodenoscopy ([id number]) on 07/06/2020 at 80 Years. Comments: 01/09/2022 16:[address] Colonoscopy (891124857). Comments: 01/09/2022 16:02 Rajwinder Ventura 2010 Esophagogastroduodenoscopy (631658990). Comments: 01/17/2022 11:03 HANG Becerra RN, Jennifer normal, gastric biopsies section (47048329). History of hysterectomy. (5160775721). CE - Cataract extraction (7433696367). Procedure on back (930070918). Arthroplasty of knee (35608551). Bladder operation (2221144559). Social History Social & Psychosocial Habits Alcohol [...] Auto 69.3 % Lymph Auto 20.0 % Deuel Auto 8.7 % Eos Auto 1.0 % Basophil Auto 1.0 % Neutro Absolute 7.0 E9/L Lymph Absolute 2.0 E9/L Deuel Absolute 0.9 E9/L Eos Absolute 0.1 E9/L Basophil Absolute 0.1 E9/L Glucose Lvl 94 mg/dL BUN 25 mg/dL HI Creatinine 1.2 mg/dL eGFR 43 mL/min/1.73 m2 LOW eGFR AA 53 mL/min/1.73 m2 LOW BUN/Creat Ratio 21 HI Sodium Lvl 140 mmol/L Potassium Lvl 4.7 mmol/L (more content not included)... Normal [facility] Comment on above: Result Comment: Elec tronically Signed By: Rk Moreno Jr., DO\.basia\Date and Time Signed: 02/19/22 06:44 EST Coding Summary.on 02-10-2022 Coding Summary. CD:[id number] Gh0bWw +PGhlYWQ+GG1CZXMoO96ayAYul B2VH4lXMW8JUXJVYEASMM6CIS2 veFB5LIipH5KqvjXn FralgZBtTW99SUm1WFV1yInpMK necE8jyYTdP3c1VdJsHV68zR00 UKtoPIZeEiX9BeSzwkynfMGv X6scNdJbsJMwRpj+PHRhYmxlIH toBQFeQApiUJHtOaFshFomKE3y Hh2qLZAhSLFmuKhczOWjCmPi b4ouPSOuPZzgQA5hgFqkG6CboF N4BIRud6w3Hn02oBD+PHRkIHN0 tPloCHqmo351MdEue9qqKNX9 oENcQIczRBQ3J48tb8P2WGLqHM ZrYVU9xXW5zF5gyXcywzvrC6Mp nRDqRgI1OGY0jVXqnT3yeXwi uhdphC5kJhx+Z30EQI0MAMQXQZ 4OLli4Z0FhTppaaLJ+UK09GCAt WZ75kMBhjPBkc2uwmIt8TeRt XKDsUVR4yWhfPWilf3BzDHSiA6 7qbUJft6D2DJZxhGmryGBqDhFu rZA1hW1fXOnqrgqmu8juajcd Ftkxo3vwru90yC54K67gGThfWX VfBWU9TJIoOKAolXzfoi0ndP3c Ii8+ZFnpl0tin4gjlHq0ZzGc GOLfzqBscBqnXAY6r3EeRb57J1 FmeKjgz4RqHrp1ac36sHRtu2B6 wEH5LShiCCVhoJ0tOMokVuS1 WIDtWvPgiD02gIBhNBjkQk7whH movZkaWM6bINLhvvtsYRWwwW4l LSGruGFpoHyaZO1tNUBzoutl a177FyDxWCD3JNRlyEYuN9UgkV 2pCcUaHFHaNDKgY8DesFMkYUkz U635DMyiVcQ1SYXyhvNtA8Ut FMZlmRocZpW5d6X9Ix9Eh9Yraw qnJLU6CHbcWNYuNqO7TlRuWkH1 K7FzMvo2LTKtdIksMM4yH2Gg FIBegfxkjvhnvIC7CHSdHQVkbX 66eQVcGQfkEs8ns9H2c216HYMz NXBkkQ91Nk7cyXavCVLimYWW yD1iyjcis5nwrhehOoBcQTRgVI u4LZl6MIQzmIhbSxXuQLP8CuZ6 BNN6zDCsnX8kmDtjefehyV5b Oyc+Z95pcQ1uNND8KIM3mgvaAR VjmpOcHZ97LH46C4CbViicdKMe bGU+UINdyzPmiGfzNU0zNvIi z8bxa1YmDFbiO2OyYOArMWdwVu d2WACnZPD8tMP3vV2nZPSaZOvn j1Z6tKK8G9QzrmIglv3kf7ya USWwUSuwP04uvJHes1X3UAJtlE X9XFSbkQmeEeGmwZ74Xjo+PGNv zZtcr2TwPufok2rib5wgbVn5 IiEuVJSyjwRgeZktPSD0l9ZbUg 42O17jNCdbHNNjAPFpNJCxCGTq hQgiwz7gnT7sWt3+PGNvbCB3 eTL5oV6nGCAqZzE9BCejT989Ml BqsDGaIgdlq0qfl1aylNz2PvOc GJHprsPkeIzeHFK6m4RzYf17 O90bNQabCYBnFHWxTOWiHKSiqM bhmf5xaJ5hFc9+UC1at5gxme75 tV45sYD+HNMfBHB7uOvdNMco ZBPhoA4bPEaeNeN6TNTpJlHolP 62uRMrLEjsYx8hdUzcqZgcNT9s WQOhwykff468EiRba2mtLWUm lTSgCPvxTRZ0G29qo1K8PFOnVA DqGGZ2aKJ0sC6blEpafptxzOPt gBkwykKpyPohHFxjOYnpM769 IHRvcDsnPlBhdGllbnQgTmFtZT c5K9VqEkx5QSEhiIemET4quREv SLvoEh2mkOcelErkIQ0wWDDo dhhfg901EkJun5rjGCVsjHKbIZ bmVUC2W17av2B8VXWjTGWqZVO1 nHO1lF7esEjenayvvIUlaUjq hzNkcDeoQQlfOBjjW561YNPrzD nyCoFoquVoIMTzaVT6JR16BG18 kYGti8M4jSK4D3UjYRSpmltl irnvbBP1ADSrWHLboX95Us1paF igBh7jDFJmJEC7QIBbjJUnR4Ed iR6wKuFqXVLgUGXlZ3OfaAJg OFcgS112GRtcZlM0PXLkgjLqT4 MlNNZmjEicTtE4u4A0We0UD9Q1 WK57GL06bQEte2E6yUK5Q9Sb RPLgwqrsmlygoZG8QMOxIYNbfE 01Oa3nlUgyBt9kIQLqROA1PPZg qBJiB1BswT5zTeGyPKXrTFGm P2NiuUVxDUddK587BWvtLvG4WW OrdbVaS1CiNMHheThnUbH9v7U5 Wj6ASUx2YF40LY00uZDtj9P0 tWN2N5BuCKEscphkcywrtQS7KU DtQKRmfK68Jm7jlFexWb9yFKVi AWE1IIYzhAHcF0VuvP3vPgHp IZDwFIEpD8VswSMfAZtwY178WC geOiZ9UEUhesUmM1NrJPQwpVzs EnP1e1H0Te4PGZImOS32XYR8 uLH0FN80XV91U7XsKcxqiRIiwH U+PHRhYmxlIHdpZHRoPScxMDAl OhItvMsuIE6xXj2nQILwNKNy aUkfgCVgHvZuu0hsLPRtWDdrUH 0voChkE9QuuZP2HFAvs3x5Oq88 M33jL0OcyTS+PKZuqNZ7vNA9 qO5hYyWjJbL5SNwhB768BxCxlZ IuZruvd4gxv3dwjYo2VjO5FKXk oaMyyDkzQXM4z0SfJx76N41z IHdpZHRoPSIxNSUiIHZhbGlnbj 3syX1dKx9+QTWbxFL0mJX9rD2l AvNpEiI6UUybK164KiDlvQPx Fiuav2snm3fjrUh3NeTtSVKjwo XecBkuAWW0y4UuDw19A8GufQxw p6WiGaj6gv46nOOen9E9hLN4 X9BgQMYcghvnpOFwqWwbPZ0kNX FeecxgMMWoiG5vKDHnW3g5HoCx MtT1OVsoZ9NagtF3KFXbxDIh DXlvQIV2X79co8G9QPYuTYMzVI Q7kUZ3oT6hfObwlsussSIskOqf isZqbTmcJQdcDXwtW424IZSw vKtiBBVtjX7wQMNfkVVlkTocJF 0pNLToxufkMpHPQ1SGP0LkSOUX BKOMD9hPDJ65PJ88aXJhf4I5 uDW3Y3WkSQWdacxlpgbpqRQ9ST QjQAHwuR77yKSmJIdzMe1gk3S3 c655LPZhSCXhzI82Cj6mcKkg HBSmxXYWkF6npcctw8rbfgciGk NcGTGdFQh3UMd9DSLamUmiQiFt CCD5XcC2WJA3sVIfjE9ajEqm efuehE2nPyt+RZLbCIQdSAm0Rh wvdGQ+UYTvJNS6nCfbEKxlLANp nK3iQREqE5c9YsFaEoI4SDhn R8FnUNTbatsoSw59yS8uYmDpJz I6WVpyQ5CcshO9HYNljHOpIPhg EFG5T72rq9M6SZKxVJHtKEE6 pRP0mA2woZcxuqbbsUIskZiqov XgqQcjNPjzKMagA809ZNAlfFnw Obn4GOxvOHOrUX46BM76cLTj t6U2nGE5C9UnYHFapjiczhsvlL O2QVNjSPRffZ39eSYrOGfbDk7b h5W8w777BQGnZRLhhB88Rz5k eJxuTPQmwAMGrC3jwishp6zkuy vhRqHnZXWfFWg2PMq0XWXolUkk ArUpGLR1PhM4BIT3wKJzgZ1i nNlwbcyqqI3pByo+RmVtYWxlPC 29ZJ53tTLfb1G9yAT0V1JsJJEa djbjjimvgTL7ZLUjKAPldI83 sLAzDZvuOm7fi0C5v366AKQoBU OxkU37Pv4bzZbrDKPxjBSHjC1s csbet9bsyzqiEdNcGTMuIYt0 BQx5WPMthVhjOiJqPNU3ApG3EQ U8tBWlbH5beSltzwisbQ1uXgn+ P8L7fJG7kYSuyTegpKJ+PC90 mu14X8ZgVvtfZuy1QHQwDXY3eJ Z2yN8sWGAlUUlxc2L8xVI9H1Pa fpAiqy9pg2zxCHJgNMbgY71t lZEwv1P4TIEoaTF9NOAnzSyuSg WeiO15Mxu+PZXodHtan3UjTwug a9wnp1pqoYu8AwLvVIDuddMr eNetNNB4u2ElNs78N41yBOocIX KgZRDlQOUnWFJjeLqvsb6mcL8s Ii8+SFYhkQD6jQY6fF8dNyNe GmN2VHskG047RuCyaMDmTdpqy6 kor0tppPm3AqJaVIZdgdAtlTts MZH1i5PrWd25D2NhwUttm7Xt Ywm2vk48yLVls3L3kDH0U3GgMN YiclxvyGMkqHonHA8yYIDbtycr KEEqxE4wQKRgH8w7DpYfLtC9 TPnxW0ZowoQ9ZZFofAJgTWUktA CRcC4rxbeqc7hdkaceYsImGIMr QAd5HPg5GYXpxMgwXuRcPTI8 AsF0HDZ1mDJipM3kwJfafumuiM 9wOyc+RBy6d6scaWPkWW2ptDO8 PG34CD42tJTjc7H3sXR5X2Cz ETLbgpvmmkkoiPI4EQNsMHGfaA 27Mh1kzWeaRl4zBMNkWQG8LTTx pIPdQ4UdlZ8wPhCdOEFrCTKn U9CvzRBpSTncN988BVfdEcS2II CgnfOqB7OrNYOmgIisXqE9u7G1 Xx2QDE16DP32KR78xFIqk0I8 xUO0C9NbJYKigpkkuuguxTU1IE IeQNQcyV87Jg7xaGpoAu3aHWEi INN8YYTloVSnG2WhiG1fItWn NBHdWTJyD7OpuLZuUHbmU780AI zaImZ2TPPzoiOiD2DjLOYnfGir CvX8u1W4Xx3EMi64AA64EW64 uUOhs9G6qOF5D1BiWKIubuqbxq lbdAE1PFFpWZVaoE77Cd8wrOxc Wd0tDMBcTWQ3NWHqhOUiL2Wk lH9yKfKiACPjWKJmE0BmfXFcAO wvT603KRybVxD0ZGRqphOtA0Iu TXWomQctPqT3u8E3Sy3WWHjg gyp9S1MlSxqvyWQ+TZ85ZMHmUA 56uYImyLRco4qnkDz5HxGpUSBt QLJ5uQxyGNpgn5HaYWFfV65z bGFw (more content not included)... Normal [facility] Outside Recordson 02-07-2022 Outside Records [id number]#1.00CD:127 [facility] Consent for Procedure/Surger yon 02-05-2022 Consent for Procedure/Surgery [id number]#1.00CD:127 Normal [facility] Outside Recordson 02-05-2022 Outside Records [id number]#1.00CD:127 [facility] Consent for Treatmenton Consent for Treatment [id number]#1.00CD:127 [facility] XR Chest 2 Viewson XR Chest 2 Views Exam Date/Time: 02/04/2022 [...] Araiza MD, V. 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 female here for ventral hernia Referred by Shi Urbano CT Pelvis done 11/13/2021 She denies pain. She denies hernia surgery prior. History of Present Illness Adina Perry was referred to us for a fat containing ventral hernia by Shi Urbano CNP. She was last seen by . Sundeep on 01/10/2022 where she states that the patient had undergone a CT scan of the abdomen and pelvis with IV with contrast performed at [facility], which showed a fat containing ventral hernia. However, on review of the actual report of that CT scan from 11/12/2021 at [facility], CT abdomen and pelvis with contrast to rule out diverticulitis. There was nothing mentioning a hernia in the body of the report nor in the findings. [facility] did not push through the images to our PACS system. I am unable to review these myself at this time. Our office is in contact with their radiology department to rectify this mistake. After calling and speaking with our radiology department and [facility], they have put the images through [...] after patient or guardian consented to allow [employer] to record this visit. ANA M technology infusion specialist and provider reviewed before signing. ANA [...] 30 mg, (more content not included)... Normal [facility] Comment on above: Result Comment: Elec tronically Signed By: Jannet ERIC, Jay Lock\.br\Date and Time Signed: 02/03/22 11:22 EDT\.br\Electronically Co-Signed By: Radha Mcgee\.br\Date and Time Co-Signed: 02/03/22 11:04 EDT Reminderson 02-03-2022 Reminders - From: Marly Riggins MA To: Marly Riggins MA; Sent: 02/03/2022 10:11:05 EDT Show up: 02/06/2022 10:10:00 EDT Subject: CT Imaging Reminder/Recall [place] [facility] [facility] and they pushed through the imaging Look at PAC Received imaging per Dr. Power [facility] RAD - CT Reporton 01-31-[address] - [address] Report [id number]#1.00CD:127 [facility] IntraOperative Documentson 1 IntraOperative Documents [id number]#1.00CD:127 [facility] Postoperative Documentson Postoperative Documents [id number]#1.00CD:127 [facility] Coding Summary.on 01-21-2022 Coding Summary. CD:[id number] Gh0bWw +PGhlYWQ+RZ5RPURxD40hmNWqr U0GX9qDHQ3GJVOZYCWADF0KLT5 xdEQ1WDzwW0DtcwVu DxbtqJZqZI59LMn3ABB3qCecOI mtbD4fkJJnA7j8DgDxKU01sL70 QWgtSUPxBsY2NnSxywqcbVKc U7irNhQutQSrPir+PHRhYmxlIH saUDLnLFycHKXfMqGhbOlkMT9r Gb7bBYGkBVHqvMcbxOPzMoZh d7eyCYMdZWeuRD7vtPjpE8FpnV P9MMPct3l5Aw78jYC+PHRkIHN0 jOkdVBlto265QyOxw7tgXPF1 sIXdTEysVNO6A82wf9X0PUSfQE NqVIY2pJB5oO6oxTsbvrczY5Ps iBAmCsH3CGW6oVKsjT0ylKdl vpgtqA7jQkq+R13PNA5QNRUZDE 3XXum2K6CmQcqikYL+OF58XNWw AY06tUGzhUPsh1gvrBv2TvDb YEWeYKT8nMipJXuze3YqJMKpC9 7poFWus4R8YZQoxTlgyXGiYeYl mGX9yQ8aDMhcdvtwt9qhzroc Dfwri7oryc03sG11X63oLFehRW QdIOY5EYCcUGOiwJnfdx4coG8i Ii8+TSdcc8aqz4cofMz9SgOp CRUoilNgsKduSNR4i5UyUy03V3 XdcZbfs7MjDpy1db50xLZqt2T6 qFS8FZvxSUNlmC0jGUifFvG6 EEDiAjXqoH40nHRbAYrgKq8pdR pbaLqdBX8sVPWbgvulLPOvoN4r WVHdgQFinCfuTU6fNUSiawuh z196SpJmIPJ2VSIsiJZeL9HzaY 5tCyKsNUYwLXZvT7BkyIGoEVtw K266DMziOaQ7GKJsrqVqU4Ch MQVraNoeXwF6j6Z9Th6Yc6Ivvr ntZUV0OXqxFWThGdQ4PlLxWeS3 R3DpBmm7OOGjcEgkGV0kG2Xk WBBfvxtbkxiukXP0XLWoYVSegC 42pUFoZEkcLk5bt6R9a906YVJg RSHpbA58In1pmSobUYAdzNDZ lM9aztnsn0ggrxbxQiHqKEYdRJ n9HDl4KELbtZooHmRrCGL7RzX3 CVY6sFZrnH3pnOuqhffeeW0t Oyc+P22gfI9rMPP6XGO0owcqSF WhzsMaXI54ZM50J6WiYnyizPYm bGU+HPZsvdNqjNsfQD1cVwAf k2osq5IcKRqlM0RuJUPfHUpyUf z2AQWvXMK7xEE8lI3aMZLmHBti o7B5gRA6H2QiyjIqcv2mo5do ZTYdZCedZ71yaEKyn0V8BJPhyF N0PUOllCncKyKvzT64Uig+PGNv pMvmm2HlOfxdu4kku6zuiHc6 SpYhLADhqlPauBvxCFQ2j4AsMv 25K62dNUyrXVPrTQFaDOSsNLVs jKjrjl0vnO8tCx1+PGNvbCB3 qXR1xU6iZDFgRhW9NDoqC698Fl DkcYWqIbkae2ecq3onwOw4XfXi RPSwbgUaqAobCOX8w8UxIq41 Q03yXNnxZOQvMGLpAHGwZPMtdG iwfe8thR0lCd3+NS1dj2udzl27 cP81vSY+GWEhOMK1cYbpDLgu OBRiiH1kPSjeOwX1YBAlWjYfpT 95oHTbPSylJh2saJqvbEscKF6u JFKlzzzyf294RzCaz7bzVBFm fYDdWYnrVBQ6O77ax8A5FRVnKK GlIIR8jWI5lC1ofNjylerlaMKx hOyubzSabCawUMwkWQlcP739 IHRvcDsnPlBhdGllbnQgTmFtZT q9L0LqGct3IPZxvMcjNS2ooEDs HBqzKo1pxFhgiHdlSI8rRTWa vlxka661CqNlj5ioXZFvuMEsZU fzHIO1I64sn1L0GQQgFAAhGMU0 sSY6eO4rqPeqkozzsAAbcPxk whYphYtwKBxiTWtnP046RMWtsC weHvOndcWrCLGruHV7HR74AR39 sFOjo1N6lDD7R1UbRPBjhnsn tzyzeCR3TFSrYKRxdX29Op8ayK kcQi4xRXAeSXB9RIJtnCRtH7Re pL3nFoRaNFCvOZIpO3SgxKAb QTctW927XMneNsT8ARMqjiLcL2 UnIWSldXvcXaO1y2G5Xc0KK4W4 IX56DP83cJOpk0S9nDT4H7Jc NAWztwjxnqlliKE8KIVbUKIdjW 43Vv6acJkyCh5mNEHmRRV9EJQb fRXkL2YhlH8bJiQzEFEgMDYr X0JjwEDhRKcmU817VVaaQtD7SQ FqvwVqZ3DaIFWdjNwdZpM5v2E5 Lj9HTSp4NZ50OH31dAFze1F6 fHZ7O2GgPZZssgzktmswjDI4JL FsYWHdaD73Tl0xoXzqCf7rTRHa BYD6GFVzkYXuN7TfyG1dWnCt GWTlWFXpC0YqxRJvEGudY065YH exIzK9ODEgsoMsB0CvQJGpzDuy UbS0e7C0Fb0CNMLoUL60BGV9 aAZ2VO81VJ10H1FePoiruIUxpS U+PHRhYmxlIHdpZHRoPScxMDAl KlHglHxyKY2oVt4lJOZrWYMr jImsdDZgDzDcg5ujHSSvPKfbDV 4itYrnQ3QypGU9WYLal9b4Bu66 N78jM7HfaRC+FPRlpSW4pRC5 qJ6lWtXqDlK6PGcbL293KjZwoZ QkFaqwn2ngw4patEn4FdB7MVYk aiYfdNfaTBY1x6AiRy05B44o IHdpZHRoPSIxNSUiIHZhbGlnbj 5euS0lRb6+JZYiyHE4pYC8rU5t WfMeFrM0RTdfY850OyCytJFr Fmnpo4pdv4sbvEa5VqOaRLUqbw TjcJqhDAV3p8NcHc92U0CcoNig w8CiXku7kn66hHEfj5N1uLD2 Y6FdBRZvenezfXFawPakKZ3kWD GbddyyUHPmeD5xRIKfR2c1BvWk CcE5APxiF3VeoyV4ROBweHXh MTfmUXT7P87mm6A7YGRoSMUpDD I7jAC1nA4pgOtoxjjjkJXhsGgu pnYtkRptRLfdADelD165QJOt rNaeNPOpyG9qXSOqlRTlaHpjYT 7aIYBruzkwUyTMS5BHJ2TtLKBP EJBUI5oNEA81JJ42tJWxl8L0 lAS4O0WgJJSvrznymirtfAN5DK BxGNCsdM64gKHqJSgqMx1uw0S6 a924TUNfECJffK77Nj4wtClq SFWpwUKAiS2ugpmzw9wfpqcsJq AfHVKtXOi3IPx1ZQUxoIzfZmHm RGQ6BvZ8KLI2bVAzaP5djMgr wllvsN9kGiv+ADIuKESuLGc2Xs wvdGQ+SSRpBZL0oLnsDIkhMRUr bS0hDAUdI7a8UeGcEaK1RZkz O4LcMYGytwmpUh65wC5hPoSsTg X7CNlkS3NmtdG3PBZscLPbROmp SEL4Q66gu7O2NXMaNUMvBPX8 cZH0vG8jdGuojjrngWZkyDsqqk BpkVhwWLlwKAvaQ302JNFtxEqy Nov4JVrnJSZoKA19RY39nHGo g8Y1pVK8W7QwJFRbudpsvzxoaJ D0YBFkNACulX61xUYpPEhoFd0a z5F7f761UJTlJVGjbA57Ew0z aJrwVXOhsFESgC7dyswou7jrum ymDwDcHEYbCDx6KJh7DSIiuFzz WpKiIMX1PtY6GKK1sXKsfD7d bZpihuzeoU0wZhy+RmVtYWxlPC 52HK39lCHax1E8dNK3Y0XbMQRl qbbxvbjpnXX5IQQgSASamF35 hKNbVDxvIh8xt1S8d531MVGkVS YaxB07Jk5euBuzQQUvoRQRtF6d qjyrk6akdobzPyLpPTNfLTv5 MRs9KEGnpRdxEbHrXXV5MdJ0UN X9oLZziW8ejVnarfiijO8eGer+ O5O9qBE7hUOgjKeziCU+PC90 sy32F5UjLoypRox4DKLeCLO7dN I3nQ5rXAQiLEumq9C4rWD0L5By hdQvnh6zq0rgJOJyFVoyD11q fQBbf6O4VSVkwBC3SGJpdXrzZf WznN60Ipl+EPZdqWicq3SpHhpz r0rxr8zrxWp9GsXjHRTvsvHu ySdhXCJ9y0IaKj49Q29fENshIJ VwCHJmPJOgMHLknYmnjx0chX4h Ii8+CVPchOG5pEL4jQ7pPfJp WfC3GGwxY883LwOugZErTceit5 ajm7xsiZh4QxWpVSRqrnUseJkl YQG7f5JgNe96K6ExdTzzg7Us Gxd9uq71rOSot7M3hIS3J6UjJI ZpzqhdyHKqqSqjBN6iYUXqbbqm NYAhgU4hUDSoI1t0BbQuLdT1 DRzzW3AusgX1HZLbfMEeRKZiiR XZbW6xadbrh3omhiauVqNkBDCz KJf0DEa0FTIwbEqdJiCeHHU3 XuG5EWW9aPHspO0zmImzibfxnV 9wOyc+NKy6t5wmlUCsAD2axQE7 HS56DR60dYRqt2B4eRI2Y3Jh UUJwnwjlsrykcVX0BQYrRXMpqI 13Ei7muPstRa8yAACyOOV9ZYPp rRQsP7JrgA9kXmVmBHTuAVHm R5DocYKrPLckK463HGaqJlI9SZ KkmrDfO8CeTOHxtCruHwC9d1G3 Fn5KED14VM21TM48cCGgn0C7 yFH3B2IaDZEaqqgresnxzTG1DR YuFACcfS45Te4luFrzLv5bYCFq GDK2LVAnjCBlT5NobC7dRbQj VHPqENLeJ8HnjECyDEqwD472PH bzPiF4KUVhliUbG2SjHKVzvNzw LyY3g8P8Am7GVg23CT37XI98 iYRnd7B3yPG1R4EvXIFjelxlev apjHR6WCEiIVPtkI69Rn9bkBaf Ct3jFZFrUFA7FBPuzOGhX6Vr nD0uUzInOCDvYCTxL2QegGEjQW sjO946NWddOzJ1LUTjwoZiL2Pi JXPxwQxgIrX7h4E3Rk4FAEdp yog8C6EqWpsthLP+RE30VIGcJI 50tJMvdGKlf8zrsGp8TyPlNIEx QJR5rLahOFlgs0ZdOTPyL86g bGFw (more content not included)... Normal [facility] Giardia, Direct, EIAon 01-21 G. lamblia Ag IA Ql (Stl) Negative Invalid Interpretation Code Negative [facility] Comment on above: Result Comment: Perf ormed at: [facility] [address] [id number] PhD Yolanda Jiang Performed By: #### 1 [id number] ####[facility] [address] [place] [address] Main OR Intraoperative Recor don 01-21-2022 Main OR Intraoperative Record IntraOp Document Type FT Summary Primary Physician: Jeferson COPE MD Finalized Date/Time: 01/21/22 11:55:08 Pt. Name: ADINA PERRY /Sex: 1940 Female Med Rec #: [id number] Physician: Jeferson COPE MD Financial #: [id number] Pt. Type: O Room/Bed: / Admit/Disch: 01/17/22 07:25:21 - 01/17/22 23:59:59 Institution: Case Times FT Entry 1 Patient Times In Room 01/17/22 09:27:00 Out Room 01/17/22 09:55:00 Procedure Times Start 01/17/22 09:31:00 Stop 01/17/22 09:53:00 Anesthesia Times Start 01/17/22 09:27:00 Stop 01/17/22 09:55:00 Time at [facility] 01/17/22 09:44:00 Last Modified By: Daniel MILLS, Riddhi Maravilla 01/17/22 09:55:43 General Comments: EGD end time at 0934./LINA PENA Colonoscopy start time at 0935./JEANRN 01/21/22 Chart opened to review and send charges [facility] CSFA Case Attendance FT Entry 1 Entry 2 Entry 3 Case Attendee Shelly Craig RN, Michelle Fuentes Role Performed Anesthesiologist Fire Adjuster - Primary Staff - Other First Line Supervisor Time In 01/17/22 09:27:00 01/17/22 09:27:00 01/17/22 09:27:00 Time Out 01/17/22 09:55:00 01/17/22 09:55:00 01/17/22 09:55:00 Procedure EGD AND COLONOSCOPY(.) EGD AND COLONOSCOPY(.) EGD AND COLONOSCOPY(.) Comments Dr. Pennington is supervising Last Modified By: Daniel MILLS, Riddhi Sanchez RN, Riddhi Sanchez RN, Riddhi Maravilla 01/17/22 09:55:43 01/17/22 09:55:43 01/17/22 09:55:43 Entry 4 Entry 5 Entry 6 Case Attendee Elana Sethi CST, Jasmine COPE MD, Jeferson Alford Role Performed [...] No Time Out Shelly Craig, Given Participants Daniel MILLS, Cory Barrios Kirstyn K, Elana Sethi Schafer CST, ANATOLIY Delacruz MD, Jeferson Time Out Complete 01/17/22 09:30:00 Outcomes Met? [...] and tissue Entry 1 Skin Integrity Intact, Orange Blossom, Warm, and Outcomes Met? Yes Dry Last Modified By: Riddhi Sanchez RN 01/17/22 07:29:31 Post-Care Text: The patient is free from signs and symptoms of injury caused b (more content not included)... Normal [facility] O & P EXAM, ROUTINE, REFLEXo n 01-21-2022 Ova and parasites identified Concentration Nom (Stl) Comment Invalid Interpretation Code [facility] Comment on above: Result Comment: No o va, cysts, or parasites seen. One negative specimen does not rule out the possibility of a parasitic infection. Performed at: [facility] [address] [place], [place] [id number] PhD Yolanda Jiang Performed By: #### 1 [id number], [id number] ####[facility] [address] [place] [address] O & P Exam, Routineon 2021 Ova and parasites identified LM Nom (Unsp spec) Final report Invalid Interpretation Code [facility] Comment on above: Result Comment: Thes e results were obtained using wet preparation(s) and trichrome stained smear. This test does not include testing for Cryptosporidium parvum, Cyclospora, or Microsporidia. Performed at: [facility] [address] [place], [place] [id number] PhD Yolanda Jiang Performed By: #### 1 [id number], [id number], [id number], [id number] ####[facility] [address] [place] [address] Consenton 01-20-2022 Consent [id number]:127 Normal [facility] Discharge Instructionson Discharge Instructions [id number]:127 Normal [facility] IntraOperative Documentson 1 IntraOperative Documents [id number]#[email or web address]:127 Normal [facility] Coding Summary.on 01-19-2022 Coding Summary. CD:[id number]:[id number] Gh0bWw +PGhlYWQ+JT1JXGHcO41xaXInp P8PQ1mFSM5WHIBCHXQPVT4JAU5 yfXL3UJnjQ8RrqzMz PwbvoAYoTN71APy8OCY6xZfcYG szjY0vsOHlM8u4JpOgBP87vN86 VGjgMUYrIoD9VnYqdswcdJBz Y9rcFqCdaYXhYbo+PHRhYmxlIH omENOmZSyzOEAhYaBcsSobNI2t Ld3lJYFhINCkmSmpaOLyUnSk m1rlIRCyQSdlVI5ofDmlO7MvfW Y8FKAou5j7Vm07sPF+PHRkIHN0 oBhqGTwqp111UsTdc2yjJGG8 vYMkTDxgPWH2W63tx5P7PWUoKA RiISA4rHZ7hA2gtAfudckwH3Jx vDKuYlK2QPO7zNJfzW1yoUly ehsczF7wSwv+F06PLE8YPULWFN 6FWus0O0ApLabumPS+IU47RPIm OK42eEClhCJfo8vlpPs2VxWs SANiIEN2xBnyYHljz0DiCROhT1 8ueOQks7K7GCWakCadwFWmXfPi bSS9hU7eIAboccdvt3fwfxxr Bvbah8cblp06jH27I61fHPayFE UkFCE9VXUnKRYvkMitoy0ewD9d Ii8+FKdlr0xqj7sbkFp5XoVv QTXxmwXglMgmASG8n3QhOb88T7 XgvVhje9XvYyq1xf22mTHbj0H8 iLX3YPktMVErbZ2dAVotLrM8 CVEaGxIpeZ50fZGzVTsoXa0xmT cysZxdKB5yYKNxlrxhTJYgzK1a CBBphMIogYbwFW2tGCKmstaf x576VdMpALZ2SMOkwDVrR4NnbD 5tDhLsLXDpYSTcI6CvvXWmFUvt S503RDeeSzR9EHDisqNrO8Pt SQOhaIofNcW9w2Z5Hy2Nk9Suds zcUAO3CJwuLZRsKmI7FzGcWfX5 I5ZyWyr3GHLcrJwgNU1lL0Xz TXWinfcbwaztuUM6VZCeMUFprZ 31wHGxUZsyAl9wn4Q8v422QWKv ZAMetW72Tz1rxZogLCNzlFQR rI4kjewsc4zfsnsnXrPmQTHmHB f5QSs1ZJKhqWgyWdZeCSW6GbH4 CHQ6mVZdrG1hrLlfosdqiQ8w Oyc+G21wvK4pLRH4CZF2ejjfDA OlliNdRG51QN94M4QhUuytuDNj bGU+IFFujmYtuGijNG3qZsNu k9sum3DxTMjqI1EwFPEpNNacWl u8OHSiCEC9jIP3oU1tXWRuCJqb h3C0xAI6L6VlthWcof5fb7kd DSLrTFhsY74kyINku1O0JQEtkL N4ZWJtmVxiYtMwdM63Kcs+PGNv rOlzi6KwKrmqu2rol5lozUo4 PhOcACGstrVgvEeiLCO5q2MyNy 71R20nKIqaVAJsBKZuILCaUCJw kHvpga7wbX3cJd1+PGNvbCB3 aYI1rD5zEXNkYdA4MUgwZ488Ah HtzCNjJrcmi5zmu5xkcQp3BhLb CBXiuoPcdWjoTZN6z0QlHo93 I68xFRisTJOkLSGoOMJjZJTlvR vfyv7obO7vKi4+BT0cw9ksew21 jK43qYR+EHEdHYZ6xKgyTGju UILtlT1eSJfiQyK6PNDdNmFvoP 78aSMaVCfyBp8hyDmtdBszCR6w PYTujdnln329DcUpm3rpLEGu eRJeXDwrDXU5J94xx6K2YGPwAS IrLHJ7cEZ1pB3zfVjyhfihaENq iZwahuQpcQkdMOhkNTxtW716 IHRvcDsnPlBhdGllbnQgTmFtZT o8B9LgZsd6KQJflQvzQC0wgBTu NGjyFl0xaPorqZopQS3lUHXp rcyhk396HyIah7jgKGErmXCmSF pyXXN7E84wx9K8URPtEIFoTFY8 jWE2zB8kyAswirpajPLheCia iqTosRzfGJcpSWijG401CLChqW kvYuYdhfQhHIBqpQB6BC51IJ39 hRQxd9O3iXV6K2VvKMLkbaot chpsyMV8DJViXMFqhE89Vc6ybV mmAz3dFETdQRZ8YLRxzMVjB6Tg lO9eOjJgFBWkLTYcT4JqnYDh DFnqS429STdvJnU7KMZvklTeU9 GzWWZiaLncYxM2v8K1Gg1ZP0Z1 FR36AH96nLHwq3R5sHN6B6Xq NFTpyuxghjaxjOV5FGAaYPDgoM 26Zh3ayRmfKa8bJCIbLQM7PLPi nCPoJ7KtfG5rNzPzVCXqENLm R3QkaVHeYAerE396DVuwYdR4CF MsujVlN8RfFYFbuXngOmU1t3R3 Ij2WEJw1EP91ZC46dLUfa8Q4 bXY2C5QiLLWrmonavjkcxUM7DU UuHRDzdK48Ag2gvUbcEu4lSNEs ZKF7QLCykZFyM6JywT8tKxXx BUJgLAGwT6TrlXUrJCexS404QO pjMjZ4AERgesNxV2AsMHLimRes EkA1k6E9Ck9XYUCeQF26MWH5 oNB2HJ84WV52H9TvEwntjWKwkA U+PHRhYmxlIHdpZHRoPScxMDAl LyFkwQhiBS2qLg8pWEUvNCKn qWensWRgHrHcm9ycIIPuSFhuRR 3rqQvbL8LnaWE6HIIqr8b4Pe90 N94vN5PqbKR+ZUWwiPH7pBP1 dN4vKvKaFvI7VPyfO794JiYzmP LoEiszr2axv8ehtRj8RvV9DQLr omXqdAfmDFV3d4SlHw56M73s IHdpZHRoPSIxNSUiIHZhbGlnbj 8bsP9sPt2+OUIerJP7xGN6yN4n BgQfRjY9SYtyB189RaCrwVKk Jcelv2bzv6xebTn4VbFcSBJojz TepKfvCEC1s3LkCy30Z2CjpFqh d2RnXfn6kq60hOTza9G7pWP2 I0NcJKQthtgloXEleFsbAS3wVP DdrmjqHCVbgV8eZCDoB5w6SdUw VxB0EVjwW6KggwH7FSObeOKx DJjpIXM1M29ug0S0BSJjZLDpIW T8pNW9iA3xqFzwfbopvOXwaVss unQqmZdlHJvyRSgtE226NFEb yGclFGYllU3dUKStmROcnStcVK 1lRKHqtlwfIgBJH5WXZ6OkYWFQ ZXGEL0tFFD64DQ33sTOym7R1 kNB2D7FuZFLohfabgxrppPW5SZ LoWJIhoG81bJKyUIuuCl5cp7M6 f890WFNhHQStwT09Ma5jxCcq QCUyfVPPqO6uzwumy1vnjpmhJk WiCPWdHYb3VJd4JAUrtLtiNoMr NMD8TcB8WYN8wVCcsA2bqGgm llepgC7yApz+NXJoIGZhNUv7Zh wvdGQ+KRNoUFV5kEjvQDhpZHQo zL5tYHLrX6q3LnPjOzP1CWjz E9SzPMYgydjjRi40mJ4lUtPjRx Q6AAlxX4GmhvU5JPNkdKSyUHku MWO4A23yl8P5PDZrHJMhVQQ1 pJG1xF8xrMjkbbvrwZPprSngox IdbPfcJGleOFxxX534JLDlnBqr Jap2THeoYMPfVX13JS48hIPd z5X7lAJ9F3GlSGMpsbopfguafS Z7MDFwWHSkvN85uKRoOXwiFp4a p6F8o284TFNqLZIfcJ64Sf4t xIrtSDIvvTWEtF6ydwcyc2moly mfQmVyVGIoWBb8SQm9AQIazPpo YiEoDPN2QyT7FOY6wQIvuD5g lFnprhqvrS2tZtj+RmVtYWxlPC 08WD14eMWhl5J7iDT7B8YiLHVb ezoysdwfvAS4XIKrRZHiwR17 bRItHBogCz8pb2Z0f386VLSbJI RnlC83Bc1xlVskAWSjaBKXzU0f zlerv3qrgwlxWfEvECFzPKc4 BDa6EVXglVfnXaOaSKA3RzY9DE P2fOJquI6jxInzfpkfgB1bQxx+ GNSmKZEeh4Qdn6XmUI08CK00 X8ZqZgstbMWljUW+PHRhYmxlIH ozBECpPJekAYVtJwJjiAiyLC2p Ke7kIILjWFZsyQuifJAvSgPz o5fcWTEzGYukLP5fgZuwQ3WshU I0LZCkj1h3Rc69Y13tS7NafHQ+ UCOmkFH0fCJ2dG4fXcLjFlS4 QSntB675EsQegTHxXohvt9omr1 lhfGl9PyUgQPOwdcFhzVteVTA6 s8DzLy14A54kQSbjNEHuHPQo ZRIcXYVrxElyzv4ncX4hId3+PG XieAV8gCV6bR6uTcJyExP0ELhz I830HjFcnYXvCewoY94hN2Tv dXA+ARVtLgl7PCHmrPakZH8poV KcTZhvCp4fITL8QhOnEyIeFLrx U2BkJIThtnevaznbbFJ5VMSw BFZuiS86Zl0clKwxVx4yCDGlJG S1HWRmyBEnL1KgfO2xBhXiVRJb VJWiF1CsvETlTSvkD285GLaf TeI2WYLxzgYyJ2ZnHESwdVmxBp U6o2O8Em9YlToyiMUqOJ3hLjEf JCl0H8MrFle5ZTYgpVlpTN9r pZHkUYdtIx3awXahkWqnZL9fGF Exjtvhn767TlHnc2maGBNskOXq DIgqKGU3W23fo9N2UGYyZSVd IFG8sKW3hT1ayViqgkeuwQCgiQ areoIqjGtzUEhuGUtuS133YBIe eJdaWkKMMzm9O4TcDct5UCMg xYqaZB7qkJYcHKkxKa8jhLcboE xlMD6lCYCqszrne738LmCjo0ch SURjiJQaHJlxSFK0M89bk4Y4 KFQdRQRlZHT8iLH8vV9eeVphpm ogbGVmdDsgdmVydGljYWwtYWxp R347YMHpbUfhJm1HVxh7P2Kh Mar9DQEitHrcIT1nqLJsPKqhAj 4rjTvrmBxyYF1cJQZpbjuit173 YzFlj0jkCUWbbYNzWYslPSY9 N43qb8P8NQQaIGXxLMR0oUP9eT 1hbGlnbjogbGVmdDsgdmVydGlj DReeSWqeC849NLTsaWnlLiLy eWVyOjwvdGQ+FX81vk58L3PpNw wnEzo0CVVjRNH3gQV2uG4eJBMq KCpyo6K3uPT1P1HqylTyru6z b2xs (more content not included)... Normal [facility] Consent for Treatmenton 01-04 Consent for Treatment [id number]:[id number] Normal [facility] Endoscopic Procedure Report - Otheron 01-17-2022 [...] snare 3. Normal duodenum Images Procedure images: Rec_hd_video_ 8_50_724.jpg Rec_hd_video_ 8_55_551.jpg Rec_hd_video_ 8__462.jpg Rec_hd_video_ 8__938.jpg Rec_hd_video_0 8_33_18_428.jpg Rec1_hd_video_T0 8_33_35_407.jpg Rec1_hd_video_0 8_34_25_483.jpg . Post-Procedure Complications: none. Estimated blood loss: none. Specimens: sent to pathology. Devices/ implants: none left in place. Impression and Plan Sessile polyp, 7 mm, in the gastric body, greater curvature, removed completely with cold snare Recommendations: Follow-up in GI clinic in 2 weeks [facility] Comment on above: Result Comment: Elec tronically Signed By: Jeferson COPE MD\.br\Date and Time Signed: 01/17/22 09:56 EDT Other Comment: Quyen vieira Attachment - attachment storage system not supported [id number] Can be [facility] Attachment - attachment storage system not supported [id number] Can be viewed in source systemMissing Attachment - attachment storage system not supported [id number] Can be viewed in source systemMissing Attachment - attachment storage system not supported [id number] Can be viewed in source systemMissing Attachment - attachment storage system not supported [id number] Can be viewed in source systemMissing Attachment - attachment storage system not supported [id number] Can be viewed in source systemMissing Attachment - attachment storage system not supported [id number] Can be viewed in source system Endoscopic [...] 2. GI clinic follow-up in 2 weeks [facility] Comment on above: Result Comment: in [...] Moderate nonbleeding internal hemorrhoids Images Procedure images: Rec_hd_video_2021__T0 8_49_26_194.jpg Rec_hd_video_2021_T0 8_47_06_773.jpg Rec1_hd_video_2021__T0 8_46_38_746.jpg . Post-Procedure Complications: none. Estimated blood [...] Return to activities:: After 24 hours. Normal [facility] Comment on above: Result Comment: Elec tronically Signed By: Jeferson COPE MD\.br\Date and Time Signed: 01/17/22 09:55 EDT Other Comment: Quyen vieira Attachment - attachment storage system not supported [id number] Can be viewed in source systemMissing Attachment - attachment storage system not supported [id number] Can be viewed in source systemMissing Attachment - attachment storage system not supported [id number] Can be viewed in source system Inpatient Patient Summaryon 01-17-2022 Inpatient Patient Summary [place] [id number] [facility] Clinical Discharge Instructions PERSON INFORMATION Name: ADINA PERRY PHYSICIANS Admitting Physician: Jeferson COPE MD Attending Physician: Jeferson COPE MD PCP: ADRIANA CRUZ DO Discharge Diagnosis: Anemia Comment: PATIENT EDUCATION INFORMATION Instructions: Upper Endoscopy, Adult, Care After; Colonoscopy, Care After Surgery Anatoliy (CUSTOM); Diverticulosis MAGR (CUSTOM) Medication Leaflets: Follow up: With: Address: When: [address] [place], [place] [id number] Business (1) Comments: office will call for follow up Type Location Start Finish [facility] [address] [facility] 02/03/2022 10:20 AM 02/03/2022 10:40 AM Confirmed [...] cholecalciferol (Vitamin D3) sertraline spironolactone Comment: Normal [facility] Main OR PACU I Recordon 01-04 Main OR PACU I Record PACU Phase I Docum ent Type FT Summary Primary Physician: Jeferson COPE MD Finalized Date/Time: 01/17/22 10:57:57 Pt. Name: ADINA PERRY/Sex: 1940 Female Med Rec #: [id number] Physician: Jeferson COPE MD Financial #: [id number] Pt. Type: O Room/Bed: / Admit/Disch: 01/17/22 [...] Signed By: Jennifer Becerra RN 01/17/22 10:57 [facility] Main OR Preoperative Recordo n 01-17-2022 Main OR Preoperative Record Holding Area Document Type FT Summary Primary Physician: Jeferson COPE MD Finalized Date/Time: 01/17/22 07:57:32 Pt. Name: ADINA PERRY.O.B./Sex: 1940 Female Med Rec #: [id number] Physician: ANATOLIY ERIC Govea Financial #: [id number] Pt. Type: O Room/Bed: / Admit/Disch: 01/17/22 [...] By: Regino Beckett RN 01/17/22 07:57 Normal [facility] Monitor Recordon 01-17-2022 Monitor Record [id number]:127 Normal [facility] Monitor Record [id number]:127 Normal [facility] Outpatient Surgery Discharge Instructionon 01-17-2022 Outpatient Surgery Discharge Instruction [address] [address] Patient Discharge Instructions PERSON INFORMATION Name: ADINA [...] THE NEAREST EMERGENCY ROOM OR CALL 911 Vitaly, ADINA PERRY, have received the attached patient education materials/instructions and have verbalized understanding: May we do a follow up call? Yes No I was present when discharge instructions were given ____ Patient Signature _ Date Clinican/Nurse Signature Date Follow up: With: Address: When: Jeferson COPE [address] [place] [address]. [address] [place], [place] [phone] Business (1) Comments: office will call for follow up Type Location Start [address] 02/03/2022 10:20 AM 02/03/2022 10:40 AM Confirmed Pharmacy Information: [facility] You may receive a survey from [employer] asking you to rate your care experience. Your feedback is important and will help us understand what we do well and how we can improve the quality of care we provide to you, your loved ones and our community. It?s an honor to serve you. Thank you for choosing [facility] HERE ARE THE MEDICATION CHANGES THAT OCCURRED [...] activities are safe for you. ? Take qzom-bbs-mdrwebk and prescription medicines only as told by [...] 09/21/2012 Document Revised: 09/14/2018 Document Reviewed: 08/23/2018 [email or web address] Patient Education ? 2020 [employer] Colonoscopy Care After Surgery Please read the ins (more content not included)... Normal [facility] Patient Education - Texton 1 Patient [...] unsweetened, w/added ascorbic acid 1 cup 0.5 [place] 1 cup 0.7 Vegetables Cooked Green beans 1 cup 4.0 Carrots 1/2 cup sliced 2.3 Peas 1 cup 8.8 Potato (baked, with skin) 1 medium potato 3.8 Raw [place] (with peel) 1 cucumber 1.5 Lettuce 1 [...] IMMEDIATE MEDIC (more content not included)... Normal [facility] Progress Note-Physicianon Progress Note-Physician Patient: ADINA [...] PACU when criteria met. Condition good. Normal [facility] Comment on above: Result Comment: Elec [...] list: All Problems Anemia / SNOMED CT 530769599 / Confirmed Watery diarrhea / SNOMED CT 080639812 / Confirmed History of colon polyps / SNOMED CT 4261329725 / Confirmed Fecal incontinence / SNOMED CT 240554646 / Confirmed Nausea and vomiting / SNOMED CT 07222627 / Confirmed RLQ abdominal pain / SNOMED CT 417641073 / Confirmed Weight loss / SNOMED CT 410142834 / Confirmed, Active Problems (7) Anemia Fecal incontinence History of colon polyps Nausea and vomiting RLQ abdominal pain Watery diarrhea Weight loss Histories Past Medical History: No active or resolved past medical history items have been selected or recorded. Family History: Heart disease Father Primary malignant neoplasm of lung Sister Diabetes mellitus type 2 Father Brother Procedure history: EGD - Esophagogastroduodenoscopy ([id number]) on 07/06/2020 at 80 Years. Comments: 01/09/2022 16:03 EDT - Raj[address] Ho Dr Colonoscopy ([id number]). Comments: 01/09/2022 16:02 EDT - Rajwinder Ho [...] review: No qualifying data available . Plan [place] [employer]est[employer] (ASA) physical status classification: Class II. Anesthetic Preoperative Plan Anesthesia: Monitored anesthesia care and general anesthesia possible. Anesthetic plan, risks, benefits, and alternatives discussed with the patient and/or family. Pt. and/or family present and agree to proceed as planned.. Risks discussed including heart, lung, nerve damage. Risks of bleeding, dental injury, hospitalization, and general injury discussed. . Normal [facility] Comment on above: Result Comment: Elec tronically Signed By: Eliecer Pennington DO\.basia\Date and Time Signed: 01/17/22 08:36 EDT Coding Summary.on 01-16-2022 Coding Summary. CD:[id number] Gh0bWw +PGhlYWQ+QV4GKPFsA65fnPMzb T2XS2bGMG0RKNILTQPCOD2BHE6 qpEM0CRetN3GevlDa LvblaSOmFQ66QJz6SPN3sNdgRF dwbI2smVYjH0i6DkHzZW88nY50 MYbwKOVvSwD4VaFljjfbgQKu A7klJeIdiRDvKdh+PHRhYmxlIH mkYPZaFPozVIWtXkYoiGdbIY8x Kt4iTRZdYRYbnSslaPTzNhRr j1feOBQfFEtmEL1mzNlbP1GdrB J5UCHiz0m9Gq95uBV+PHRkIHN0 kDgqWReqc968YoDvc5ljNLH1 wDBhVPhyAIJ0A27hf4Q6KFSbNA VjSPN4dWW3nY6qvHgccbvcZ1Du aXKqKpF7BWO2tNJisO9vdMcb uqvrsS9vQvh+A05CAD5DDCRRAD 3NYmy4X7NiGbuatGA+JV01AWDs MO73tHNyqXPdt3snvDl4RoQj OCYeYNH5hLmqOBqqa8PfYQEoT0 6lwIWgd1I3UPNktEptgXTaGfVb mQQ1kS0rBYwnaltzb3ygzhvn Dapvv6udvk28tT12R74uVPaiRU ThVIH9BBTkIQUbwDbkgh4boE8l Ii8+QQrru8mlt9axmKr9QdMk EHHyyrTqnCgxQYI7g6AdZa83V5 PhyDmow7ZdFwt8mv16oRYnn3H2 kDK4MErrNXGuiN4tSLmkTbE5 RSReUgBdmY72fIZuBXzaTf8oaH hwuVcvGE3jMOEshdemRWPumH5p RJZzeHWjeGdyBL0qXNJnyzuv q437RsQlNIC6CQZiuCZiJ2CmjS 3iHdVeIMFsXJYuE8IvfEKvIFie C457PHzlIcR6EBEqtnJuH8Yw RMHhhXckBuM7y1U2Ve6Hg0Ftfa tnTRR6ESpdNBUnMrWuKmZhXaG2 Z5SrMer6BZOcuDwqRX9eU6Va YLJjjhhtvuhhoMX2VFNdVYRznR 52sYGbCXitFm4pe9O6b221YTVp BWTicK90Ja3lfLfaPBXgvUXC fM5uyfyyh5impmtjMfLsDPEoCY v9ZXd5DKCplGnlVzOqRWF1HcR8 HXI8vPTdkG9fkSdabtrguN6z Oyc+P94ycB5gRKJ5DXH1sjdlXD WnmdCqWC35QH06K1ZvIidbhOKn bGU+AMTirmPkxMtpUL2zNgWc k5uqj2WhILkfX1WoFDKeCOvaUs k6UDJuNOI4zRC9mP1vFCXiKUvl z6L8aKP9M0JnwfFvdr9xk7nl ZYWeCNajE55wmWJcu2L4MNZtrI X7DMJmgSxjHyKeuM82Bbf+PGNv ePmhu4LlAwsnh9uko1slwWt3 VwYuMZGmxtOqpOuxMZD5c9GdIk 54K06jKTglTEUfLMNiXPOqFXKm tKjose3cxP4eVw1+PGNvbCB3 vNQ1lH4lYYVvXbT8IJplJ579Bn MgcOBeKcoyo2clv8hubPe0CgOo PEZetlEzoRqzLFJ4f6WvPi74 D08uFLbuNUDdCWNvIHCkZCKtmA obxw0auS5eYw1+AI9ra1outy87 rO39gUS+IXNvZST6dYyiYJmd XSUwaS7eBCblZiB1DURzMtEgfY 43bPCzWRqwDj4mjZefzPudUC0h XWJcxkgpb388FiKna4rmUWRw lWKxNCvaIJJ6E21dt6N9USHdPY RqQBM5dOR7kX4sxXpkewkosMWk jArbnsWjsYraFGxjNIayI297 IHRvcDsnPlBhdGllbnQgTmFtZT n6C8CjTea3GIVqoLhcPV5hmEHl MXgaNu7chGxaoGbrTW6vJUGo adbht450XxChp7nbSERbeDBtDM fpFVT6L64mg4L9YACuAGQuFZJ1 nTQ5wO1cpWrwwleimTZboFdz idLpsZnaXYjrMYxhU003YIDseU weDwJjenVdVDNnrZH6EM41ON22 hNLhr9C6jEY9A5TrXVUcbams bdbohSJ6AQOnZCHlfI06Uf2fyR otIk9rYBEiPYV4GEMkzDNqE8Uz aD4vDeSxCRNuBXXoG0NqyXYh ULomP376QSflAcV2BFQhqdYvI8 AnZYJtrGgkDhW2f9R0Hh5UZ5C1 JP34KD04rJRvj6V6qKD7Z0Yl QALeafjmeevytEY3GSIqOZYevO 55Or9akQbjSf1jDVXvQBE6OYSw mOCkL9MpqX0xGjZuONEpJHBy K3QiaCDoGCezH697XPneWvC2RR IasuEiR0ZoNZFbeKaeYeP5s1G9 Ed3HPCi3OX09XT63tBFaz4Y9 qQT4F4ApEVZatdoeedongAQ0QH ZiBJDnkF29Gc4vzDpvQs5vBURs ARX6JKOivKGgB4HpxE2fTeNq WMGyZRGeK5ToiZLsJHuxR694LX cjZlA4JXZgofQjB3KzFJXaiKml ImV7g4R7Lp2RNRAtAS73GYF8 yDS8VD30YH57Y2NlFeijyGTcqW U+PHRhYmxlIHdpZHRoPScxMDAl DtIstQcxDT9fXg8cIOPnEQKd fTffzZTvSpIpz8npMLMaUJzsPK 4hzNulP5OsrMQ4JQDim3y2Tx41 A76vG1BibMU+TTLxqXP4kUM1 yJ2kDyHuGtV7ZQnmU174YuZnkH RlFfaxs0pvk3nimOd0ZpV6MHQh gmNvdIocHFT6r0RzNd96L38u IHdpZHRoPSIxNSUiIHZhbGlnbj 2zfK5zSn1+CJRnvSP5rSU4bD8c BdWdVxH4MYjgK075LmYirAQu Wruuy2tim9xwqDf4ObFyUCKuua ZomUsvTGQ2j9UxUe32R3XovSdh m0KuXer5ja07hMSls6F3uIG1 J2SvCEXyyjnlfSBglYslPB7pLD PmvngsIUAsgE3iDJGhB2l6TpNh ZqH8KWatF7EhmwF8XVXptREj LDlcIEV3O13ll2R5HJAdTDTrFN N9hIQ1vR2xfFgpwowwiKAbaHnk skGroMcyEXzlIFjhH401KSCk tOvmVKAenK4sQUOzmXWqsFfkFU 4kZYIyclzuYsPCD2TRH8PeGWYR MVYKR2gFIA83GB36cTGfv4J3 yTM6Z7KeEIVhpzyyppbtwJQ1VX WaSPMjtX47rIDaGRxuTr4ol5Y2 l879RYDtJPRkmA35Lc0btEdk DRSijSCVyQ1xyuilp7gktvzwBa BgMNBmKFx8MVr3YGQsyUgrPyRp LOA5IiL5XPD3cJDumN2pyQxj xcchfB1zUyf+MBQdNXLvHCs2Vt wvdGQ+CDGiKLM1dZseMSdmVPEd mF0pWCHvK5k3NkGhBhI0LIva Z4EvOSGqtkzxKp45uF5jSdBkRu D1WBaiY3MirpD5FRCilILmZCgp MDY4D91kw0S9GYNoUVUmLWG0 qKS0pJ4tlIqifmqxeFSxiHcnss CrsBwlDTbgGXfjQ305NHHypAbd Goc6CFvmXPJlTB79DL96eBUg x3J5kCX2O5PrMIEvmoimtimspK S5ICIgNODrzL12oCZeCRfqRp7n m7A3w261KRNjRRCyaI91Ls7d qAihUAGzpILKkF6dncqlk3lmig okVfDdJVOsSDy0RDr8BWQwxFai SqGhWGM6RvQ6YJQ7lYAkhN6r vOmthshefW0lQmj+RmVtYWxlPC 19TZ22uXLci4O9jTR2R9HhSPDm pzalhlhanHY1PSVnFVVpcO96 lDFdDUzcBu2pa5S0a033MEWgRF XijK24Gq7kxStjHCHwwJRZkK1q gdrrj6ofaonjYyKrYZAnTTz9 ZZq2KMIrwHvcEeRoOFD9PzW6LJ F4pZGrzC6fdScxkgvaqI4nLar+ J6Z2fVM0uKXqeGnldZJ+PC90 pn02E6RrZibwQat6OPMfNFN3qY V0eP1pOKCpERoow2M2zSJ6A5Ql kzNppk7wy0npSYRdMLyjE56n fRThq3C3EONphZD6IUFbhGttAv SceG16Nic+JYFboXfai3ArBtos d8vbe5ejmAq8UrWjQUHhckDa uDmgZPG9v9BxHh11V59iWWicNC OgWYSeYYHjFKGxdZsqeh6dtS4i Ii8+QTKxmWV5eIY6sT8jDpEj TzE8DBhdR047VgDuuYBsMsrmj6 xzs0zgpKp8RyAoXDNbfzNjaDqu YFL1e0FiGv32C9AwkMeyw9Ov Ulm3fb61uVVlg0Y8qQX1Q9SkWE TbgjkrqBVyuXwqPA2eLXZrtldf VTNdhN1dGVTbV6p0KkTvMuT3 VAsvC3PccfX6PLSirFHqNMEejV JVlK4kceayk8htdtwiFpSwXEJu DUh9XEv6GPHvkPynXvOrXVV1 ChC9ANZ5dNZraN5kpCigueznwH 9wOyc+LXo5c8ohgBUxQP3qpHQ9 WJ36LW02lYRcm3I9uEL5I3Pg QFPdqicspmsihUT3YBQnUQFeiT 06Ly4tsSmmFl1oHWMrHAU4VDNk xUYbD2MnzS2hPeIeSZVrJZDi J0XmtISmWPneN991DUocPmK8KF QpeaKiS5FnOFNgzEdfNlS4l2N9 Bv1TVJ95JR50UD15hPOhp8F6 wDE6C7UbDTDcnqlygrkdoBA2BE CjYAQjiG47Aa4nlLndYp7eENDd KYD7FJQppOEjW6VlrO0iRySk XLEkVIRpU8XolRPoVQkjZ016PU nmElH2QKDuvgEnI1KdPJJyoFxz AjS9r9V6Tw5MZh71HP11JG70 vNXvh9F1kDT3I5XgVGUznjroxr gibOM4QAQiNLDalI65Dz9btWgg Hg0gMYYlNSN5HBNblVOiN8Mn cT1yWsHbBSEsCPAcT3TzoODrOC epW296UMxfVfX0CTRhnyVfU9Jv SJAnhVepLpE2v5X6Tu9MYZok tzh2H7UpAlrngSO+UU61PORcLX 96kJZshTEin0gmbFn4MgGhRWFc RBN1nQsfIZkpj6KdTGLjU50i bGFw (more content not included)... Normal [facility] C. diff by PCRon 01-14-2022 Clostridium difficile by PCR see comment Invalid Interpretation Code [facility] Comment on above: Result Comment: Unab [...] its clinical significance. Performed By: #### 1 [id number], [id number], 44594496, 03591075, 36489178, [id number] ####[facility] [address] [place] [address] Consent for Procedure/Surger yon 01-14-2022 Consent for Procedure/Surgery [id number] Normal [facility] Enteric Panel by PCRon 01-14 C. coli+jejuni+upsaliens is DNA FERN+non-probe Ql (Stl) Not detected Normal [facility] Comment on above: Result Comment: Test ing was performed utilizing reverse clinical biostatistician (RT), polymerase chain reaction (PCR), and array [...] nulcleic acid test. Performed By: #### 1 [id number], [id number], 36602771, 78866166, 67815897, 62264250 ####[facility] [address] [place] [address] E. coli stx1+stx2 genes FERN+non-probe Ql (Stl) Negative Normal [facility] Comment on above: Performed By: #### 1 [id number], 048913941, 48296729, 13193258, 16160263, 36439307 ####[facility] [address] [place] [address] Enteric Panel by PCR Negative Normal [facility] Enteric Panel Intrl QC Pass Normal [facility] Comment on above: Result Comment: Test ing was performed utilizing reverse clinical biostatistician (RT), polymerase chain reaction (PCR), and array [...] 1 and 2. Performed By: #### 1 [id number], [id number], 50856188, 28723821, 59781113, 15724510 ####[facility] [address] [place] [address] Norovirus genogroup I+II RNA FERN+non-probe Ql (Stl) Not detected Normal [facility] Comment on above: Performed By: #### 1 [id number], 009762492, 40230392, 57524721, 98461586, 16366761 ####[facility] [address] [place] [address] Rotavirus A RNA FERN+non-probe Ql (Stl) Not detected Normal [facility] Comment on above: Performed By: #### 1 [id number], 501484552, 20666516, 25739727, 60471038, 13605796 ####[facility] [address] [place] [address] S. enterica+bongori DNA FERN+non-probe Ql (Stl) Not detected Normal [facility] Comment on above: Result Comment: This test result should be correlated with clinical presentations and medical history by a healthcare provider to determine its clinical significance. Performed By: #### 1 [id number], 496977360, 09942517, 97004880, 57947821, 26897189 ####[facility] [address] [place] [address] Shigella species+EIEC invasion plasmid antigen H ipaH gene FERN+non-probe Ql (Stl) Not detected Normal [facility] Comment on above: Performed By: #### 1 [id number], 068968042, 59232899, 03610026, 04753151, 00963244 ####[facility] [address] [place] [address] V. cholerae+parahaemolyt icus+vulnificus DNA FERN+non-probe Ql (Stl) Not detected Normal [facility] Comment on above: Performed By: #### 1 [id number], 149917708, 40997332, 10041710, 38715374, 92777300 ####[facility] [address] [place] [address] Y. enterocolitica DNA FERN+non-probe Ql (Stl) Not detected Normal [facility] Comment on above: Performed By: #### 1 [id number], 481851035, 06773213, 47861618, 81598374, 68463347 ####[place] [facility] [address] [place] [address] Fecal WBC Lactoferrinon 01-04 Fecal WBC Lactoferrin Negative Normal Negative [facility] Comment on above: Result Comment: The semi-quantitative detection of elevated levels of fecal lactoferrin is a marker for fecal leukocytes and an indication of intestinal inflammation. Performed By: #### 1 [id number], 672384590, 43137087, 64534377, 55990138, 80860037 #### [place] [facility] [address] [place] [address] Ambulatory Visit Summaryon 1 Ambulatory Visit Summary ADINA PERRY :1940 Visit Date:01/10/2022 Ambulatory Visit Instructions Your Diagnosis Watery diarrhea Fecal incontinence RLQ abdominal pain Weight loss Nausea and vomiting Anemia History of colon polyps Your Care Team Attending Physician - hSi Urbano CNP Primary Care Physician - ADRIANA [...] diarrhea Invalid Interpretation Code RLQ abdominal pain [facility] Auto Diffon 01-10-2022 Basophils/100 WBC (Bld) 1.0 % Normal 0.0-2.0 [facility] Comment on above: Order Comment: Order Added by Discern Expert. Performed By: #### 2 508756, 8093895, 12379167, 9895892 ####[facility] [address] [place] [address] Basophils/Leukocytes Auto (Bld) [Pure # fraction] 0.1 E9/L Normal 0.0-0.2 [facility] Comment on above: Order Comment: Order Added by Discern Expert. Performed By: #### 2 138702, 5625139, 12932647, 4180225 ####[address] [address] Eosinophils/100 WBC (Bld) 1.0 % Normal 0.0-8.0 [facility] Comment on above: Order Comment: Order Added by Discern Expert. Performed By: #### 2 187827, 2674857, 58439282, 4812595 ####[address] [address] Eosinophils/Leukocyte s Auto (Bld) [Pure # fraction] 0.1 E9/L Normal 0.0-0.5 [facility] Comment on above: Order Comment: Order Added by Discern Expert. Performed By: #### 2 662433, 8604450, 12572584, 7991038 ####[address] [place] [address] Lymphocytes/100 WBC (Bld) 20.0 % Normal 14.0-50.0 [facility] Comment on above: Order Comment: Order Added by Discern Expert. Performed By: #### 2 365180, 5306676, 16018622, 6933646 ####[address] [address] Lymphocytes/Leukocyte s Auto (Bld) [Pure # fraction] 2.0 E9/L Normal 1.0-4.0 [facility] Comment on above: Order Comment: Order Added by Discern Expert. Performed By: #### 2 525669, 1253564, 16302581, 2097410 ####[address] [address] Monocytes/100 WBC (Bld) 8.7 % Normal 4.0-14.0 [facility] Comment on above: Order Comment: Order Added by Discern Expert. Performed By: #### 2 194503, 3977432, 59421524, 4420028 ####[address] [address] Monocytes/Leukocytes Auto (Bld) [Pure # fraction] 0.9 E9/L Normal 0.2-1.0 [facility] Comment on above: Order Comment: Order Added by Discern Expert. Performed By: #### 2 974637, 3182940, 86766078, 1474628 ####[address] [address] Neutrophils/100 WBC (Bld) 69.3 % Normal 36.0-75.0 [facility] Comment on above: Order Comment: Order Added by Discern Expert. Performed By: #### 2 007277, 1716309, 01722644, 2555078 ####[address] [address] Neutrophils/Leukocyte s Auto (Bld) [Pure # fraction] 7.0 E9/L Normal 2.0-7.5 [facility] Comment on above: Order Comment: Order Added by Discern Expert. Performed By: #### 2 512751, 5769844, 77458680, 1076050 ####[address] [place] [address] CBC w/ Auto Diffon Erythrocyte distribution width (RBC) [Ratio] 14.7 % High 10.9-14.2 [facility] Comment on above: Performed By: #### 2 889537, 4583682, 31977612, 8902991 ####[address] [place] [address] Hematocrit (Bld) [Volume fraction] 37.1 % Normal 34.0-46.0 [facility] Comment on above: Performed By: #### 2 909419, 8956333, 63101388, 1557297 ####[place] [id number] Hemoglobin (Bld) [Mass/Vol] 12.2 g/dL Normal 12.0-16.0 [facility] Comment on above: Performed By: #### 2 096201, 4231632, 27879065, 1417237 ####[place] [id number] MCH (RBC) [Entitic mass] 30.0 pg Normal 27.0-34.0 [facility] Comment on above: Performed By: #### 2 310855, 5812772, 42594386, 1943624 ####[place] [id number] MCHC (RBC) [Mass/Vol] 33.0 g/dL Normal 31.4-36.0 [facility] [place] [facility] Comment on above: Performed By: #### 2 014025, 7407757, 40384373, 1751115 ####[place] [address]24657 MCV (RBC) [Entitic vol] 90.8 fL Normal 80.0-100.0 [facility] Comment on above: Performed By: #### 2 172704, 4115658, 45217175, 7781395 ####[place] [address]24657 Platelet mean volume (Bld) [Entitic vol] 7.9 fL Normal 6.4-10.8 [facility] Comment on above: Performed By: #### 2 978212, 8242343, 44260009, 4044227 ####[address] [address] Platelets (Bld) [#/Vol] 281.0 E9/L Normal 150.0-500. 0 [facility] Comment on above: Performed By: #### 2 535109, 7717806, 50178859, 7354387 ####[address] [address] RBC (Bld) [#/Vol] 4.1 E12/L Low 4.3-5.9 [facility] Comment on above: Performed By: #### 2 332811, 0506331, 18933991, 3911635 ####[address] [address] WBC corrected for nucl RBC Auto (Bld) [#/Vol] 10.1 E9/L Normal 4.0-11.0 [facility] Comment on above: Performed By: #### 2 410344, 2752679, 79173969, 8273245 ####[address] [address] CMPon 01-10-2022 Albumin [Mass/Vol] 4.4 g/dL Normal 3.3-5.0 [facility] Comment on above: Performed By: #### 2 221016, 8169307, 09131048, 8411219 ####[address] [address] Albumin/Globulin (S) [Mass conc ratio] 1.5 Normal 1.1-2.2 [facility] Comment on above: Performed By: #### 2 807017, 9414271, 35001803, 2833201 ####[address] [address] ALP [Catalytic activity/Vol] 55 Int._Unit/L Normal 21-98 [facility] Comment on above: Performed By: #### 2 627660, 7012411, 75256844, 6361134 ####[address] [address] ALT No additional P-5'-P [Catalytic activity/Vol] 15 Int._Unit/L Normal 6-46 [facility] Comment on above: Performed By: #### 2 636958, 7062300, 38678186, 6908451 ####[facility] [address] [place] [address] Anion gap [Moles/Vol] 19 mmol/L High 6-16 [facility] [place] [facility] Comment on above: Performed By: #### 2 643270, 0179808, 79233999, 2249115 ####[facility] [address] [place] [address] AST [Catalytic activity/Vol] 19 Int._Unit/L Normal 5-43 [facility] Comment on above: Performed By: #### 2 513797, 2331051, 64299483, 3327928 ####[facility] [address] [place] [address] Bilirubin [Mass/Vol] 0.7 mg/dL Normal 0.0-1.1 [facility] Comment on above: Performed By: #### 2 519487, 4198150, 71251668, 7973794 ####[facility] [address] [place] [address] Calcium [Mass/Vol] 10.5 mg/dL Normal 8.9-11.1 [facility] Comment on above: Performed By: #### 2 100347, 0230772, 13357285, 4624418 ####[facility] [address] [place] [address] Chloride [Moles/Vol] 103 mmol/L Normal 101-111 [facility] Comment on above: Performed By: #### 2 575747, 6060138, 07255724, 0367651 ####[facility] [address] [place] [address] CO2 [Moles/Vol] 23 mmol/L Normal 21-31 [facility] Comment on above: Performed By: #### 2 407603, 1965600, 19029802, 2896954 ####[facility] [address] [place] [address] Creatinine [Mass/Vol] 1.2 mg/dL Normal 0.5-1.3 [facility] [place] [facility] Comment on above: Performed By: #### 2 729047, 2952805, 99986860, 3468693 ####[facility] [address] [place] [address] Globulin (S) [Mass/Vol] 2.9 g/dL Normal 1.4-4.0 [facility] Comment on above: Performed By: #### 2 016567, 9727376, 03923929, 8029593 ####[facility] [address] [place] [address] Glucose [Mass/Vol] 94 mg/dL Normal 55-199 [facility] Comment on above: Result Comment: If t his glucose result represents a fasting glucose, interpretation should refer to the following reference range: 55-99 mg/dL Performed By: #### 2 551888, 3603087, 13167959, 0084841 ####[facility] [address] [place] [address] Potassium [Moles/Vol] 4.7 mmol/L Normal 3.5-5.3 [facility] Comment on above: Performed By: #### 2 737613, 7868456, 24731107, 5575226 ####[facility] [address] [place] [address] Protein [Mass/Vol] 7.3 g/dL Normal 6.0-7.8 [facility] Comment on above: Performed By: #### 2 843697, 0774433, 16619307, 1854563 ####[facility] [address] [place] [address] Sodium [Moles/Vol] 140 mmol/L Normal 135-145 [facility] Comment on above: Performed By: #### 2 073649, 9448764, 32936913, 6815061 ####[facility] [address] [place] [address] Urea nitrogen [Mass/Vol] 25 mg/dL High 5-21 [facility] Comment on above: Performed By: #### 2 842552, 5419616, 16649551, 6440769 ####[facility] [address] [place] [address] Urea nitrogen/Creatinine [Mass ratio] 21 No Units High 10-20 [facility] Comment on above: Performed By: #### 2 343928, 8608661, 62063292, 1807915 ####[facility] [address] [place] [address] Consent for Treatmenton 0 Consent for Treatment [id number]:127 Normal [facility] Gastroenterology Office/Clin ic Noteon 01-10-2022 Gastroenterology [...] had previous EGD with Dr. Brannon at [facility] 07/2020 that revealed normal EGD. Was previously evaluated at [facility] ER 11/12/21 for N/V/D and had CT [...] year. Patient had previous colonoscopy 2010 in [place] and reports was normal. Patient reports hx. [...] to evaluate for acute process. 11/12/21 at [facility]-CT abdomen/pelvis that showed fat-containing ventral hernia. Tenderness [...] at times. (more content not included)... Normal [facility] Comment on above: Result Comment: Elec tronically Signed By: Shi Urbano CNP\.basia\Date and Time Signed: 01/10/22 11:40 EDT Patient [...] your local community. General instructions ? Take uxmk-wet-fisfckn and prescription medicines only as told by [...] Foundation for Functional Gastrointestinal Disorders: [email or web address] ? [employer]: [email or web address] Contact a health care provider if: ? You have a fever. ? You have redness, swelling, or pain around your rectum. ? Your pain is getting worse or you lose feeling in your rectal area. ? You have blood (more content not included)... Normal [facility] eGFRon 01-10-2022 GFR/1.73 sq M.predicted among blacks MDRD (S/P/Bld) [Vol rate/Area] 53 mL/min/1.73 m2 Low >=59 [facility] Comment on above: Order Comment: Order added by Discern Expert. Result Comment: eGFR is race adjusted. AA=. Performed By: #### 2 286321, 5539729, 93134531, 9400234 ####[place] [address] [place] [address] GFR/1.73 sq M.predicted among non-blacks MDRD (S/P/Bld) [Vol rate/Area] 43 mL/min/1.73 m2 Low >=59 [facility] Comment on above: Order Comment: Order added by Discern Expert. Result Comment: [employer] serene kidney disease could be indicated at eGFR's of less than 60 mL/min/1.73m2. Kidney failure is indicated at less than 15 mL/min/1.73m2. Performed By: #### 2 725922, 7722430, 07104624, 8055499 ####[facility] [address] [place] [address] Physician Referralon 022 Physician Referral [id number]:127 Normal [facility] Urine culture routineOrdered By: Misbah Greenwood on 11-15-2021 Bacteria identified Cx Nom (U) Escherichia coli [facility] Bacteria identified Cx Nom (U) Klebsiella pneumoniae [facility] Automated erythrocytes count in urine sediment (number/area)Ordered By: Misbah Greenwood on 11-12-2021 RBC Auto (Urine sed) [#/Area] 1-2 [HPF] 0-4 [facility] Automated leukocytes count i n urine sediment (number/area)Ordered By: Misbah Greenwood on 11-12-2021 WBC Auto (Urine sed) [#/Area] 10-19 [HPF] 0-4 [facility] Automated urine hyaline cast s count (number/volume)Ordered By: Misbah Greenwood on 11-12-2021 Hyaline casts Auto (U) [#/Vol] Rare [LPF] 0-1 [facility] Basophils Auto (Bld) [#/Vol] Ordered By: Misbah Greenwood on 11-12-2021 Basophils (Bld) [#/Vol] 0.1 10*3/uL 0.0-0.2 [facility] Basophils/100 WBC Auto (Bld) Ordered By: Misbah Greenwood on 11-12-2021 Basophils/100 WBC (Bld) 0.7 % . [facility] Bilirubin Test strip Ql (U)O rdered By: Misbah Greenwood on 11-12-2021 Bilirubin Ql (U) Negative Negative [facility] Blood hemoglobin measurement (mass/volume)Ordered By: Misbah Greenwood on 11-12-2021 Hemoglobin (Bld) [Mass/Vol] 10.8 g/dL 11.8-15.4 [facility] Blood leukocytes automated c ount (number/volume)Ordered By: Misbah Greenwood on 11-12-2021 WBC (Bld) [#/Vol] 12.3 10*3/uL 4.5-11.0 [facility] Body fluid albumin measureme nt (mass/volume)Ordered By: Misbah Greenwood on 11-12-2021 Albumin (Body fld) [Mass/Vol] 3.7 g/dL 3.2-5.5 [facility] COVID-19 SOFIAOrdered By: Kee Greenwood on 11-12-2021 SARS-CoV+SARS-CoV-2 (COVID-19) Ag IA.rapid Ql (Resp) Negative Negative [facility] Comment on above: This is a duplicate Johana SARS Antigen (DEEDEE) result to be used for statistical tracking purpose only. Casts typing in urine sedime nt by light microscopyOrdered By: Misbah Greenwood on 11-12-2021 Casts LM Nom (Urine sed) None seen [LPF] None Seen [facility] Color Auto (U)Ordered By: Kee Greenwood on 11-12-2021 Color (U) Yellow Yellow [facility] Creatinine and Glomerular fi ltration rate.predicted panel (S/P/Bld)Ordered By: Misbah Greenwood on 11-12-2021 Creatinine [Mass/Vol] 1.58 mg/dL 0.44-1.03 [facility] Eosinophils Auto (Bld) [#/Vo l]Ordered By: Misbah Greenwood on 11-12-2021 Eosinophils (Bld) [#/Vol] 0.2 10*3/uL 0.0-0.45 [facility] Eosinophils/100 WBC Auto (Bl d)Ordered By: Misbah Greenwood on 11-12-2021 Eosinophils/100 WBC (Bld) 1.4 % . [facility] Erythrocyte distribution wid th Auto (RBC) [Ratio]Ordered By: Misbah Greenwood on 11-12-2021 Erythrocyte distribution width (RBC) [Ratio] 13.7 % 11.9-15.3 [facility] Estimated glomerular filtrat ion rate (GFR) non- AmericanOrdered By: Misbah Greenwood on 11-12-2021 GFR/1.73 sq M.predicted among non-blacks MDRD (S/P/Bld) [Vol rate/Area] 32 mL/Min [facility] Globulin Calc (S) [Mass/Vol] Ordered By: Misbah Greenwood on 11-12-2021 Globulin (S) [Mass/Vol] 3.0 g/dL [facility] Hematocrit Auto (Bld) [Volum e fraction]Ordered By: Misbah Greenwood on 11-12-2021 Hematocrit (Bld) [Volume fraction] 32.4 % 34.0-46.4 [facility] Ketones Auto test strip (U) [Mass/Vol]Ordered By: Misbah Greenwood on 11-12-2021 Ketones (U) [Mass/Vol] Negative Negative [facility] Laboratory - Chemistry and C hemistry - challengeOrdered By: Misbah Greenwood on 11-12-2021 Lipase [Catalytic activity/Vol] 44.0 U/L 22-51 [facility] Laboratory - Hematology and Cell countsOrdered By: Misbah Greenwood on 11-12-2021 Nucleated RBC/100 WBC (Bld) [Ratio] 0.0 % 0-0.5 [facility] Lymphocytes Auto (Bld) [#/Vo l]Ordered By: Misbah Greenwood on 11-12-2021 Lymphocytes (Bld) [#/Vol] 0.9 10*3/uL 1.00-4.8 [facility] Lymphocytes/100 WBC Auto (Bl d)Ordered By: Misbah Greenwood on 11-12-2021 Lymphocytes/100 WBC (Bld) 7.5 % . [facility] MCH Auto (RBC) [Entitic mass ]Ordered By: Misbah Greenwood on 11-12-2021 MCH (RBC) [Entitic mass] 29.9 pg 24.7-34.3 [facility] MCHC Auto (RBC) [Mass/Vol]Or dered By: Misbah Greenwood on 11-12-2021 MCHC (RBC) [Mass/Vol] 33.2 g/dL 32.0-35.0 [facility] MCV Auto (RBC) [Entitic vol] Ordered By: Misbah Greenwood on 11-12-2021 MCV (RBC) [Entitic vol] 90.0 fL 80-100 [facility] Monocytes Auto (Bld) [#/Vol] Ordered By: Misbah Greenwood on 11-12-2021 Monocytes (Bld) [#/Vol] 1.0 10*3/uL 0.0-0.8 [facility] Monocytes/100 WBC Auto (Bld) Ordered By: Misbah Greenwood on 11-12-2021 Monocytes/100 WBC (Bld) 8.3 % . [facility] Neutrophils Auto (Bld) [#/Vo l]Ordered By: Misbah Greenwood on 11-12-2021 Neutrophils (Bld) [#/Vol] 10.1 10*3/uL 1.8-7.7 [facility] Neutrophils/100 WBC Auto (Bl d)Ordered By: Misbah Greenwood on 11-12-2021 Neutrophils/100 WBC (Bld) 82.1 % . [facility] Nitrite Test strip Ql (U)Ord ered By: Misbah Greenwood on 11-12-2021 Nitrite Ql (U) Negative Negative [facility] No Panel InformationOrdered By: Misbah Greenwood on 11-12-2021 Estimated GFR () 38 mL/Min [facility] Comment on above: GFR estimated refere nce range: According to KDOQI guidelines, <60 ml/min/1.73m2 is sufficient to diagnose a patient with chronic kidney disease. Pharmacy Creatinine Clearance (Chem 20.67 [facility] SARS Antigen (LFIA) [facility] Platelet mean volume Auto (B ld) [Entitic vol]Ordered By: Misbah Greenwood on 11-12-2021 Platelet mean volume (Bld) [Entitic vol] 7.6 fL 6.3-10.7 [facility] Platelets Auto (Bld) [#/Vol] Ordered By: Misbah Greenwood on 11-12-2021 Platelets (Bld) [#/Vol] 379 10*3/uL 150-450 [facility] Protein Auto test strip (U) [Mass/Vol]Ordered By: Misbah Greenwood on 11-12-2021 Protein (U) [Mass/Vol] Trace mg/dL Negative [facility] Protein [Mass/volume] in Ser um or PlasmaOrdered By: Misbah Greenwood on 11-12-2021 Protein [Mass/Vol] 6.7 g/dL 6.1-7.9 [facility] RBC Auto (Bld) [#/Vol]Ordere d By: Misbah Greenwood on 11-12-2021 RBC (Bld) [#/Vol] 3.59 10*6/uL 3.60-5.00 [facility] Serum or plasma alanine villanueva otransferase measurement without P-5'-P (enzymatic activiOrdered By: Misbah Greenwood on 11-12-2021 ALT No additional P-5'-P [Catalytic activity/Vol] 13 U/L 10-60 [facility] Serum or plasma albumin/glob ulin mass ratioOrdered By: Misbah Greenwood on 11-12-2021 Albumin/Globulin [Mass ratio] 1.2 {ratio} [facility] Serum or plasma alkaline ladarius sphatase measurement (enzymatic activity/volume)Ordered By: Misbah Greenwood on 11-12-2021 ALP [Catalytic activity/Vol] 74 U/L 32-92 [facility] Serum or plasma aspartate am inotransferase measurement (enzymatic activity/volume)Ordered By: Misbah Greenwood on 11-12-2021 AST [Catalytic activity/Vol] 17 U/L 10-42 [facility] Serum or plasma calcium dennis urement (mass/volume)Ordered By: Misbah Greenwood on 11-12-2021 Calcium [Mass/Vol] 9.5 mg/dL 8.2-10.2 [facility] Serum or plasma chloride brea surement (moles/volume)Ordered By: Misbah Greenwood on 11-12-2021 Chloride [Moles/Vol] 103 mmol/L 95-114 [facility] Serum or plasma glucose dennis urement (mass/volume)Ordered By: Misbah Greenwood on 11-12-2021 Glucose [Mass/Vol] 118 mg/dL 70-100 [facility] Comment on above: ADA recommended refe rence range Random Glucose Reference Range is dependent on time and content of last meal. Glucose of more than 200 mg/dL in a nonstressed, ambulatory subject supports the diagnosis of Diabetes Mellitus. Serum or plasma potassium me asurement (moles/volume)Ordered By: Misbah Greenwood on 11-12-2021 Potassium [Moles/Vol] 3.7 mmol/L 3.5-5.1 [facility] Serum or plasma sodium measu rement (moles/volume)Ordered By: Misbah Greenwood on 11-12-2021 Sodium [Moles/Vol] 135 mmol/L 136-146 [facility] Serum or plasma total biliru bin measurement (mass/volume)Ordered By: Misbah Greenwood on 11-12-2021 Bilirubin [Mass/Vol] 0.3 mg/dL 0.3-1.2 [facility] Serum or plasma total carbon dioxide measurement (moles/volume)Ordered By: Misbah Greenwood on 11-12-2021 CO2 [Moles/Vol] 19.9 mmol/L 22.0-30.0 [facility] Serum or plasma urea nitroge n measurement (mass/volume)Ordered By: Misbah Greenwood on 11-12-2021 Urea nitrogen [Mass/Vol] 21 mg/dL 9-23 [facility] Specific gravity Auto test s trip (U) [Rel density]Ordered By: Misbah Greenwood on 11-12-2021 Specific gravity (U) [Rel density] 1.012 1.001-1.03 0 [facility] Squamous epithelial cells de tection in urine sediment by light microscopyOrdered By: Misbah Greenwood on 11-12-2021 Epithelial cells.squamous LM Ql (Urine sed) 5-9 [HPF] 0-2 [facility] Urine bacteria detection by automated methodOrdered By: Misbah Greenwood on 11-12-2021 Bacteria Auto Ql (U) None seen None Seen [facility] Urine clarity by refractomet ry automatedOrdered By: Misbah Greenwood on 11-12-2021 Clarity Refractometry automated (U) Clear Clear [facility] Urine glucose measurement by automated test strip (mass/volume)Ordered By: Misbah Greenwood on 11-12-2021 Glucose Auto test strip (U) [Mass/Vol] Normal mg/dL Normal [facility] Urine hemoglobin detection b y automated test stripOrdered By: Misbah Greenwood on 11-12-2021 Hemoglobin Auto test strip Ql (U) Negative Negative [facility] Urine leukocyte esterase det ection by automated test stripOrdered By: Misbah Greenwood on 11-12-2021 Leukocyte esterase Auto test strip Ql (U) 1+ Negative [facility] Urine sediment renal epithel ial cell count by microscopy (number/high power field)Ordered By: Misbah Greenwood on 11-12-2021 Epithelial cells.renal LM.HPF (Urine sed) [#/Area] None seen [HPF] 0-1 [facility] Urobilinogen Auto test strip (U) [Mass/Vol]Ordered By: Misbah Greenwood on 11-12-2021 Urobilinogen (U) [Mass/Vol] Normal mg/dL Normal [facility] pH Auto test strip (U)Ordere d By: Misbah Greenwood on 11-12-2021 pH (U) 5.5 [pH] 5.0-9.0 [facility] SCREENING MAMMOGRAM W/DANIEL, BILATERAL*on 10-18-2021 SCREENING [...] VERY IMPORTANT TO YOUR HEALTH. THE CURRENT [employer] [employer] GUIDELINES RECOMMEND ANNUAL MAMMOGRAPHY BEGINNING AT AGE 40. THIS FACILITY UTILIZES A REMINDER SYSTEM TO ENSURE ALL PATIENTS RECEIVE A REMINDER NOTIFICATION AT THE APPROPRIATE TIME BASED ON THE RECOMMENDATIONS OF THIS EXAM. BOARD CERTIFIED RADIOLOGIST. ACCREDITED BY THE [facility] AND FDA. Report reported and signed by Claudia Hinson on 10/21/2021 1432 Normal [facility] [employer] [facility] CARDIAC STRESS/REST INJE CTIONon 08-28-2021 [facility] CARDIAC STRESS/REST INJECTION Addendum Begins Patient Name: [...] PERFUSION STRESS TEST WITH LEXISCAN Performing facility: [facility], [address] [place] [address], [address], [address] Provider: Mary Ayala MD PCP: Dr. Cruz Supervising provider: Mary Ayala MD INDICATION: CAD; SOBOE Nonischemic cardiomyopathy HISTORY: Gender: F; Age: 81 y/o ; Height: 149.8 cm; Weight: 52.7 kg. High Cholesterol; HTN; SOB; Denies smoking. COMPARISON: Previous nuclear testing completed [id number] at [facility]. ACCESSION NUMBER(S): [id number]; [id number]; [id number] ORDERING CLINICIAN: MARY AYALA TECHNIQUE: ONE DAY [...] signed by: MARK ZAMBRANO MD Normal [facility] No Panel Informationon 08-28 Normal -[facility] [address] 250 DO Work Phone: -[facility] [address] DO Work Phone: [...] Instructions By signing my name below, I, Delmy Alcantara LPN ,Scribe, attest that this documentation has been prepared [...] 07Jun2021 03:06PM Heart Rate60, L Brachial Artery Ffzfvynh348, LUE, Sitting Sddnkoddr96, LUE, Sitting Height4 ft 11 in Cmkbin055 lb BMI Cuehfpqhyb52.61 kg/m2 BSA Calculated1.41 Tobacco Useb) No PHQ-2 [...] Cardiovascular: carotid (more content not included)... Normal [employer] Tobacco Screening.on 022 Adult depression screening assessment No [facility] 250 DO Work Phone: Fall risk assessment a) No falls within the last year [facility] [employer] [facility] 250 DO Work Phone: Tobacco use status CP b) No [facility] [employer] y 250 DO Work Phone: Tobacco Screening.on 021 Fall risk assessment a) No falls within the last year [facility] [employer] [facility] 250 DO Work Phone: Tobacco use status CPHS b) No [facility] [employer] 250 DO Work Phone: No Panel Informationon 09-24 [facility] 450 DO Work Phone: [email or web address]} [facility] 450 DO Work Phone: [facility] 450 DO Work Phone: Order Reconciliationon 09-24 [...] oral capsule 1 cap(s) orally Normal [facility] Coronavirus 2019 RNA by PCR, Screening Asymptomticon 09-21-2020 Coronavirus 2019 RNA by PCR, Screening Asymptomtic Not detected Normal See Below [facility] 450 DO Work Phone: Comment on [...] make patient management decisions.Fact sheet for providers: https://www.fda.gov/media/770766/downloadFact sheet for patients: https://www.fda.gov/media/074925/downloadThis test has received FDA Emergency Use Authorization (EUA) and has been verified by [facility] ([facility]). This test is only authorized for the duration of time that circumstances exist to justify the authorization of the emergency use of in vitro diagnostic tests for the detection of SARS-CoV-2 virus and/or diagnosis of COVID-19 infection under section 564(b)(1) of the Act, 21 U.S.C. 360bbb-3(b)(1), unless the authorization is terminated or revoked sooner. [facility] is certified under CLIA-88 as qualified to perform high complexity testing. Testing is performed in the [facility] laboratories located at [address] [place] [address]. ED NOTEon 04-08-2019 ED NOTE HNO ID: [id number] Author: Maria Teresa (Rn) LINA Oliver Service: ? Author Type: Registered Nurse Type: ED Notes Filed: 04/08/2019 7:07 PM Note Text: Patient discharged per MD orders, RN at bedside to explain and review s/sx of worsening condition and to return to ED if worsening s/sx develop. Follow up care and questions answered with patient/family. [facility] ED NOTE HNO ID: [id number] Author: Lenore Casey (Rn) LINA Moyer Service: ? Author Type: Registered Nurse Type: ED Notes Filed: 04/08/2019 5:16 PM Note Text: Bed: ED-11H Expected date: Expected time: Means of arrival: Comments: [facility] ED NOTE HNO ID: [id number] Author: Maribell (Medic) Rebecca Hansen Service: ? Author Type: Investigation Clerk and Film Flat Inspector Type: ED Notes Filed: 04/08/2019 4:59 PM Note Text: Past 2 days left ear pain. Went to urgent care and her BP was high so sent here. [facility] ED PROV NOTEon 04-08-2019 ED PROV NOTE HNO ID: [id number] Author: Elenita Castillo Service: Emergency Medicine Author Type: Physician First Line Supervisor Type: ED Provider Notes Filed: 04/09/2019 3:31 [...] of the extremities. 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 Mouth/Throat: Lips: [place]. Mouth: Mucous membranes are moist. Pharynx: Oropharynx [...] at time of disposition: stable SIGNATURE: STEVIE Soalno Pa-C 04/09/19 1531 Normal [facility] Vital Signs Date Time Vital Sign Value Performing Clinician Facility 05-07-2023 09:00-0500 Body mass index (BMI) [Ratio] 22.38 kg/m2 Adriana Tirado-Pike DO Work Phone: [facility] 05-07-2023 09:00-0500 Body weight 50.26 kg Adriana Tirado-Pike DO Work Phone: [facility] 05-07-2023 09:00-0500 Diastolic blood pressure 68 mm[Hg] Adriana Tirado-Pike DO Work Phone: [facility] 05-07-2023 09:00-0500 Heart rate 81 /min Adriana Tirado-Iván DO Work Phone: [facility] 05-07-2023 09:00-0500 SaO2% (BldA) [Mass fraction] 99 % Adriana Tirado-Pike DO Work Phone: [facility] 05-07-2023 09:00-0500 Systolic blood pressure 116 mm[Hg] Adriana Tirado-Iván DO Work Phone: [facility] 02-11-2023 09:05-0500 Body height 152.4 cm Eliecer Gray Other [employer] Other 02-11-2023 09:05-0500 Body mass index (BMI) [Ratio] 20.5 kg/m2 Eliecer Gray Other [employer] Other 02-11-2023 09:05-0500 Body temperature 97.7 [degF] Eliecer Gray Other [employer] Other 02-11-2023 09:05-0500 Body weight 47.63 kg Eliecer Gray Other [employer] Other 02-11-2023 09:05-0500 Diastolic blood pressure 93 mm[Hg] Eliecer Isaac Other [employer] Other 02-11-2023 09:05-0500 Respiratory rate 18 /min Eliecer Gray Other [employer] Other 02-11-2023 09:05-0500 SaO2% (BldA) [Mass fraction] 97 % Eliecer Gray Other [employer] Other 02-11-2023 09:05-0500 Systolic blood pressure 166 mm[Hg] Eliecer Gray Other [employer] Other 02-02-2023 11:06-0400 Body height 142.2 cm Nick Wasserman MD Work Phone: [facility] 02-02-2023 11:06-0400 Body mass index (BMI) [Ratio] 24.21 kg/m2 Nick Wasserman MD Work Phone: [facility] 02-02-2023 11:06-0400 Body weight 48.99 kg Nick Wasserman MD Work Phone: [facility] 02-02-2023 11:06-0400 Diastolic blood pressure 58 mm[Hg] Nick Wasserman MD Work Phone: [facility] 02-02-2023 11:06-0400 Heart rate 60 /min Nick Wasserman MD Work Phone: [facility] 02-02-2023 11:06-0400 Systolic blood pressure 138 mm[Hg] Nick Wasserman MD Work Phone: [facility] 08-30-2022 10:55-0400 Body height 152.4 cm Luis Nolasco Other [employer] Other 08-30-2022 10:55-0400 Body mass index (BMI) [Ratio] 20.7 kg/m2 Luis Nolasco Other [employer] Other 08-30-2022 10:55-0400 Body temperature 97.8 [degF] Luis Nolasco Other [employer] Other 08-30-2022 10:55-0400 Body weight 48.08 kg Luis Nolasco Other [employer] Other 08-30-2022 10:55-0400 Diastolic blood pressure 70 mm[Hg] Luis Nolasco Other [employer] Other 08-30-2022 10:55-0400 Respiratory rate 18 /min Luis Nolasco Other [employer] Other 08-30-2022 10:55-0400 SaO2% (BldA) [Mass fraction] 97 % Luis Nolasco Other [employer] Other 08-30-2022 10:55-0400 Systolic blood pressure 123 mm[Hg] Luis Nolasco Other [employer] Other 03-06-2022 15:48-0500 Diastolic blood pressure 72 mm[Hg] Adriana Murphy Tirado-Pike Work Phone: [facility] 250 DO Work Phone: 03-06-2022 15:48-0500 Systolic blood pressure 136 mm[Hg] Adriana Katherine Tirado-Pike Work Phone: [facility] [place] [facility] DO Work Phone: 03-06-2022 15:25-0500 Body height 144.78 cm Adriana Katherine Tirado-Pike Work Phone: [facility] [place] 250 DO Work Phone: 03-06-2022 15:25-0500 Body mass index (BMI) [Ratio] 23.37 kg/m2 Adriana Murphy Tirado-Pike Work Phone: [facility] 250 DO Work Phone: 03-06-2022 15:25-0500 Body surface area Derived from formula 1.38 m2 Adriana Murphy Tirado-Pike Work Phone: [facility] 250 DO Work Phone: 03-06-2022 15:25-0500 Body weight 48.99 kg Adriana Murphy Tirado-Pike Work Phone: [facility] 250 DO Work Phone: 03-06-2022 15:25-0500 Diastolic blood pressure 64 mm[Hg] Adriana Murphy Tirado-Pike Work Phone: [facility] 250 DO Work Phone: 03-06-2022 15:25-0500 Heart rate 66 /min Adriana Murphy Tirado-Pike Work Phone: [facility] 250 DO Work Phone: 03-06-2022 15:25-0500 Systolic blood pressure 154 mm[Hg] Adriana Murhpy Tirado-Pike Work Phone: [facility] 250 DO Work Phone: 01-17-2022 10:25-0400 Diastolic blood pressure 81 mm[Hg] Govea SALAM [facility] 01-17-2022 10:25-0400 Heart rate 55 /min [facility]ovea SALAM [facility] 01-17-2022 10:25-0400 Respiratory rate 14 /min [facility]ove[facility] SAL[facility] 01-17-2022 10:25-0400 SaO2% (BldA) [Mass fraction] 98 % [facility]ovea SALAM [facility] 01-17-2022 10:25-0400 Systolic blood pressure 158 mm[Hg] [facility]ovea SALAM [facility] 01-17-2022 10:10-0400 Diastolic blood pressure 64 mm[Hg] [facility]ovea SAL[facility] 01-17-2022 10:10-0400 Heart rate 56 /min [facility] 01-17-2022 10:10-0400 Respiratory rate 14 /min [facility] 01-17-2022 10:10-0400 SaO2% (BldA) [Mass fraction] 100 % [facility] 01-17-2022 10:10-0400 Systolic blood pressure 141 mm[Hg] [facility]ovea SAL[facility] 01-17-2022 10:05-0400 Diastolic blood pressure 60 mm[Hg] [facility]ovea SAL[facility] 01-17-2022 10:05-0400 Heart rate 57 /min [facility] 01-17-2022 10:05-0400 Respiratory rate 14 /min [facility] 01-17-2022 10:05-0400 SaO2% (BldA) [Mass fraction] 98 % [facility] 01-17-2022 10:05-0400 Systolic blood pressure 131 mm[Hg] [facility]ovea SAL[facility] 01-17-2022 09:56-0400 Body temperature 96.98 [degF] [facility]ovea SALAM [facility] 01-17-2022 07:50-0400 Blood Pressure Location Govea SALAM [facility] 01-17-2022 07:50-0400 Body temperature 98.06 [degF] [facility]ovea SALAM [facility] 01-10-2022 10:48-0400 Diastolic blood pressure 64 mm[Hg] Shi Sundeep [facility] 01-10-2022 10:48-0400 Mean blood pressure 95 mm[Hg] Shi Sundeep [facility] 01-10-2022 10:48-0400 Systolic blood pressure 158 mm[Hg] Shi Sundeep [facility] 01-10-2022 10:44-0400 Blood Pressure Location Shi Sundeep [facility] 01-10-2022 10:44-0400 Body temperature 97.34 [degF] Shi Sundeep [facility] 01-10-2022 10:44-0400 Diastolic blood pressure 73 mm[Hg] Shi Sundeep [facility] 01-10-2022 10:44-0400 Heart rate 51 /min Shi Sundeep [facility] 01-10-2022 10:44-0400 Systolic blood pressure 167 mm[Hg] Shi Sundeep [facility] 11-13-2021 00:00-0400 Diastolic blood pressure 68 mm[Hg] DO Adriana Tirado-Pike Work Phone: [facility] 11-13-2021 00:00-0400 Heart rate 62 /min DO Adriana Tirado-Pike Work Phone: [facility] 11-13-2021 00:00-0400 Respiratory rate 18 /min DO Adriana Tirado-Pike Work Phone: [facility] 11-13-2021 00:00-0400 SaO2% (BldA) [Mass fraction] 100 % DO Adriana Tirado-Pike Work Phone: [facility] 11-13-2021 00:00-0400 Systolic blood pressure 133 mm[Hg] DO Adriana Tirado-Pike Work Phone: [facility] 11-12-2021 18:52-0400 Body height 144.78 cm DO Adriana Tirado-Pike Work Phone: [facility] 11-12-2021 18:52-0400 Body temperature 98.1 [degF] DO Adriana Tirado-Pike Work Phone: [facility] 11-12-2021 18:52-0400 Body weight 45.35 kg DO Adriana Tirado-Pike Work Phone: [facility] 08-29-2021 10:00-0400 Body height 152.4 cm Clement Diallole II Other [facility] [employer] Other 08-29-2021 10:00-0400 Body mass index (BMI) [Ratio] 20.5 kg/m2 Clement Eastland II Other [employer] Other 08-29-2021 10:00-0400 Body weight 47.63 kg Clement Julius II Other [employer] Other 08-28-2021 00:00-0400 65 1 Adriana D Tirado-Pike Work Phone: [facility] 250 DO Work Phone: Comment on above: [id number] 08-25-2021 12:25-0400 Body height 152.4 cm Eliecer Gray Other [employer] Other 08-25-2021 12:25-0400 Body mass index (BMI) [Ratio] 20.5 kg/m2 Eliecer Gray Other [employer] Other 08-25-2021 12:25-0400 Body temperature 97 [degF] Eliecer Gray Other [employer] Other 08-25-2021 12:25-0400 Body weight 47.63 kg Eliecer Gray Other [employer] Other 08-25-2021 12:25-0400 Diastolic blood pressure 67 mm[Hg] Eliecer Gray Other [employer] Other 08-25-2021 12:25-0400 Respiratory rate 16 /min Eliecer Gray Other [employer] Other 08-25-2021 12:25-0400 SaO2% (BldA) [Mass fraction] 96 % Eliecer Gray Other [employer] Other 08-25-2021 12:25-0400 Systolic blood pressure 141 mm[Hg] Eliecer Gray Other [employer] Other 06-07-2021 15:06-0500 Body height 149.86 cm Adriana Tirado-Pike Work Phone: [facility] [employer] 250 DO Work Phone: 06-07-2021 15:06-0500 Body mass index (BMI) [Ratio] 21.61 kg/m2 Adriana Changaver-Pike Work Phone: [facility] [facility] 250 DO Work Phone: 06-07-2021 15:06-0500 Body surface area Derived from formula 1.41 m2 Adriana Murphy Tirado-Pike Work Phone: [facility] 250 DO Work Phone: 06-07-2021 15:06-0500 Body weight 48.54 kg Adriana Murphy Tirado-Pike Work Phone: [facility] 250 DO Work Phone: 06-07-2021 15:06-0500 Diastolic blood pressure 62 mm[Hg] Adriana Murphy Tirado-Pike Work Phone: [facility] 250 DO Work Phone: 06-07-2021 15:06-0500 Heart rate 60 /min Adriana Murphy Tirado-Pike Work Phone: [facility] 250 DO Work Phone: 06-07-2021 15:06-0500 Systolic blood pressure 125 mm[Hg] Adriana Murphy Tirado-Pike Work Phone: [facility] 250 DO Work Phone: 03-05-2021 10:47-0500 Body height 149.86 cm Adirana Murphy Tirado-Pike Work Phone: [facility] 250 DO Work Phone: 03-05-2021 10:47-0500 Body mass index (BMI) [Ratio] 22.02 kg/m2 Adriana Katherine Tirado-Pike Work Phone: [facility] 250 DO Work Phone: 03-05-2021 10:47-0500 Body surface area Derived from formula 1.42 m2 Adriana Murphy Tirado-Pike Work Phone: [facility] 250 DO Work Phone: 03-05-2021 10:47-0500 Body weight 49.44 kg Adriana D Tirado-Pike Work Phone: [facility] 250 DO Work Phone: 03-05-2021 10:47-0500 Diastolic blood pressure 66 mm[Hg] Adriana D Tirado-Pike Work Phone: [facility] 250 DO Work Phone: 03-05-2021 10:47-0500 Heart rate 59 /min Adriana D Tirado-Pike Work Phone: [facility] 250 DO Work Phone: 03-05-2021 10:47-0500 Systolic blood pressure 127 mm[Hg] Adriana D Tirado-Pike Work Phone: [facility] 250 DO Work Phone: Encounters Encounter Date Encounter Type Care Provider Facility Start: 05-07-2023 End: 05-07-2023 ambulatory ADRIANA D TIRADO-EMERY Not Available Start: 05-07-2023 End: 05-07-2023 Office outpatient visit 15 minutes Adriana D Tirado-Pike DO Work Phone: [facility] Comment on above: Osteoporosis, post-m enopausal (CMS/HCC) (Primary Dx) Start: 04-16-2023 End: 04-17-2023 ambulatory ADRIANA D TIRADO-EMERY Not Available Start: 04-10-2023 End: 04-11-2023 ambulatory ADRIANA D TIRADO-EMERY Not Available Start: 03-04-2023 End: 03-04-2023 ambulatory VALENTÍN D DOLCE Not Available Start: 02-18-2023 End: 02-18-2023 ambulatory ADRIANA D TIRADO-EMERY Not Available Start: 02-11-2023 Office outpatient vi sit 15 minutes Eliecer [facility] Start: 02-11-2023 End: 02-11-2023 ambulatory Eliecer Gray Facility:[facility] Start: 02-11-2023 End: 02-11-2023 ambulatory DO Adriana Cruz Work Phone: [facility] Work Phone: Start: 02-11-2023 End: 02-11-2023 Departed Referred DO Adriana Cruz Work Phone: [facility] 250 Start: 02-02-2023 End: 02-02-2023 ambulatory Adriana Cruz Facility:[facility] Start: 02-02-2023 End: 02-02-2023 ambulatory DO Adriana Cruz Work Phone: [facility] Work Phone: Start: 02-02-2023 End: 02-02-2023 Patient encounter procedure DO Adriana Cruz Work Phone: [facility] [place] Work Phone: Start: 02-02-2023 End: 02-02-2023 Office outpatient visit 25 minutes Nick Wasserman MD Work Phone: [facility] Comment on above: Coronary artery dise ase involving mechoopda coronary artery of mechoopda heart without angina pectoris (Primary Dx); Essential hypertension, benign; Mixed hyperlipidemia; Nonischemic cardiomyopathy (CMS/HCC) Start: 12-18-2022 End: 12-18-2022 ambulatory Savanna Cassidy Other [employer] Other Start: 12-18-2022 Office outpatient vi sit 15 minutes Savanna Cassidy [facility] Start: 08-30-2022 End: 08-30-2022 ambulatory Luis Nolasco Other [employer] Other Start: 08-30-2022 Office outpatient vi sit 15 minutes Luis Nolasco [facility] Start: 05-14-2022 Chart Update Adriana Changaver-Pike Work Phone: [facility] 250 DO Work Phone: Start: 03-06-2022 Office outpatient vi sit 15 minutes Adriana Changaver-Pike Work Phone: [facility] 250 DO Work Phone: Start: 03-06-2022 ambulatory Nick Wasserman II Facility: Start: 03-03-2022 End: 03-04-2022 ambulatory Jay Power Facility:[facility] Start: 02-25-2022 ambulatory Adriana Tirado-Iván Facility: Start: 02-24-2022 End: 02-25-2022 ambulatory Jay EMerrill Power Facility:[facility] Start: 02-19-2022 End: 02-19-2022 ambulatory Jay Power Facility:[facility] Start: 02-04-2022 ambulatory Adriana Tirado-Iván Facility: Start: 02-04-2022 End: 02-05-2022 ambulatory Jay Power Facility:[facility] Start: 02-03-2022 End: 02-04-2022 ambulatory Jay Power Facility:[facility] Start: 01-17-2022 End: 01-18-2022 ambulatory Jeferson COPE Facility:[facility] Start: 01-17-2022 End: 01-17-2022 Patient encounter procedure Jeferson COPE [facility] Start: 01-13-2022 End: 01-14-2022 ambulatory Shi Urbano Facility:[facility] Start: 01-10-2022 End: 01-11-2022 ambulatory Shi Urbano Facility:[facility] Start: 01-10-2022 End: 01-11-2022 ambulatory Shi Urbano Facility:[facility] Start: 01-10-2022 Rx Renewal Adriana Changaver-Pike Work Phone: [facility] 250 DO Work Phone: Start: 01-10-2022 End: 01-10-2022 Patient encounter procedure Shi Urbano [facility] Start: 12-24-2021 ambulatory Adriana Billie Tirado-Pike Facility:[id number] Start: 11-14-2021 ambulatory Shi Urbano Facili ty:[facility] Start: 11-12-2021 End: 11-13-2021 Emergency department patient visit DO Adriana Tirado-Pike Work Phone: [facility] Start: 08-30-2021 Chart Update Adriana Murphy Tirado-Pike Work Phone: [facility] 250 DO Work Phone: Start: 08-29-2021 End: 08-29-2021 ambulatory Clement Eastland II Other [employer] Other Start: 08-29-2021 Office outpatient ne w 45 minutes Clement Julius II [facility] Start: 08-28-2021 ambulatory Adriana Billie Tirado-Pike Facility:[id number] Start: 08-25-2021 End: 08-25-2021 ambulatory Eliecer Gray Other [employer] Other Start: 08-25-2021 Office outpatient vi sit 15 minutes Eliecer Gray [facility] Start: 08-08-2021 Patient encounter procedure Adriana Murphy Tirado-Pike Work Phone: [facility] 600 DO Work Phone: Start: 06-07-2021 Office outpatient vi sit 25 minutes Adriana Murphy Tirado-Pike Work Phone: [facility] 250 DO Work Phone: Start: 06-07-2021 ambulatory Adriana Billie Tirado-Pike Facility: Start: 03-05-2021 Office outpatient vi sit 25 minutes Adriana Tirado-Pike Work Phone: [facility] 250 DO Work Phone: Start: 09-28-2020 Chart Update Adriana Changaver-Pike Work Phone: [facility] [place] [facility] 450 DO Work Phone: Start: 09-24-2020 EUSANS, Provider: Vilma Salazar, Status: Pen, Time: 9:20 AM Adriana Murphy Tirado-Pike Work Phone: [facility]-Xb [place] 450 DO Work Phone: Start: 09-23-2020 Chart Update Adriana Murphy Tirado-Pike Work Phone: [place]Ltrpguoqgmszkebx-Wm [place] [facility] 450 DO Work Phone: Procedures Date Procedure Procedure Detail Performing Clinician Start: 01-17-2022 Colonoscopy Jeferson COPE Comment on above: biopsies, diverticulosis Start: 11-12-2021 Computed tomography of abdomen and pelvis with contrast DO Adriana Tirado-Iván Work Phone: Start: 07-06-2020 Esophagogastroduodenoscopy Shi diana Comment on above: Dr Brannon Arthroplasty of knee Adriana Murphy Tirado-Pike Work Phone: Cholecystectomy Adriana Murphy Tirado-Pike Work Phone: Colonoscopy Shi Urbano Comment on above: 2010 Esophagogastroduodenoscopy M taylor COPE Comment on above: normal, gastric biopsies Hysterectomy Adriana Katherine Tirado-Pike Work Phone: Operation on bladder Adriana Katherine Tirado-Pike Work Phone: Procedure on back Adriana Cruz Work Phone: SARS Antigen (LFIA) DO Maximus a Luis A Work Phone: Total colonoscopy Adriana Cruz Work Phone: Urine culture DO Adriana Cruz Work Phone: Plan of Treatment Date Care Activity Detail Author Start: 12-10-2023 Medicare Annual Wellness (AWV) Medicare Annual Wellness (AWV) [facility] Start: 09-15-2023 End: 09-15-2023 Patient encounter procedure 09/15/2023 9:30 AM EDT Office Visit [facility] [address] [place] [id number] Nick Wasserman MD [address] [place] [address] [facility] Start: 09-08-2023 End: 09-08-2023 Patient encounter procedure 09/08/2023 8:45 AM EDT Office Visit [facility] [address] [place] [id number] Luis A Adriana Katherine, DO [address] [place] [address] [facility] Start: 02-11-2023 Bacteria identified in Urine by Culture [facility] Start: 02-02-2023 End: 02-03-2024 Basic metabolic 2000 panel - Serum or Plasma Basic Metabolic Panel Lab Routine Nonischemic cardiomyopathy (CMS/HCC) Expected: 02/02/2023 (Approximate), Expires: 02/03/2024 [facility] Service Area Work Phone: Comment on above: Expected: 02/02/2023 (Approximate), Expires: 02/03/2024 Start: 02-02-2023 End: 02-03-2024 CBC panel - Blood by Automated count CBC Lab Routine Nonischemic cardiomyopathy (CMS/HCC) Expected: 02/02/2023 (Approximate), Expires: 02/03/2024 [facility] Work Phone: Comment on above: Expected: 02/02/2023 (Approximate), Expires: 02/03/2024 Start: 02-02-2023 End: 02-03-2024 Lipid 1996 panel - Serum or Plasma Lipid Panel Lab Routine Mixed hyperlipidemia Expected: 02/02/2023 (Approximate), Expires: 02/03/2024 [facility] Work Phone: Comment on above: Expected: 02/02/2023 (Approximate), Expires: 02/03/2024 Start: 10-28-2022 FUV, Provider: Nick Wasserman, Status: Pen, Time: 9:40 AM FUV, Provider: Nick Wasserman, Status: Pen, Time: 9:40 AM [facility] 250 DO Work Phone: Start: 03-06-2022 FUV, Provider: Nick Wasserman, Status: Pen, Time: 3:10 PM FUV, Provider: Nick Wasserman, Status: Pen, Time: 3:10 PM [facility] 250 DO Work Phone: Start: 02-25-2022 COVID-19 Vaccine (4 - Moderna series) COVID-19 Vaccine (4 - Moderna series) [facility] Start: 12-24-2021 FUV, Provider: Nick Wasserman, Status: Pen, Time: 11:20 AM FUV, Provider: Nick Wasserman, Status: Pen, Time: 11:20 AM [facility] 250 DO Work Phone: Start: 08-28-2021 STRESS NUC, Provider : [place] HHVI NUCLEAR 01,[id number], Status: Pen, Time: 12:00 PM STRESS NUC, Provider: [place] HHVI NUCLEAR 01,[id number], Status: Pen, Time: 12:00 PM [facility] 600 DO Work Phone: Start: 06-07-2021 FUV, Provider: Nick Wasserman, Status: Pen, Time: 3:10 PM FUV, Provider: Nick Wasserman, Status: Pen, Time: 3:10 PM [facility] 250 DO Work Phone: Start: 11-23-2020 VIRROXANNE, Provider : Estefanía Iyer, Status: Pen, Time: 9:30 AM VIRNPVFELICIANOE, Provider: Estefanía Iyer, Status: Pen, Time: 9:30 AM -Gastroenterology- [place] [facility] 450 DO Work Phone: Start: 1962 DTaP/Tdap/Td Vaccine s (1 - Tdap) DTaP/Tdap/Td Vaccines (1 - Tdap) [facility] Start: 1942 Lipid panel Lipid Panel [facility] Start: 1942 Medicare Annual Wellness Visit Medicare Annual Wellness Visit (AWV) [facility] Start: 1942 Screening for osteoporosis Bone Density Scan [facility] Patient Education Dehydration, Adult (DC) [facility] Work Phone: Patient referral [facility] Work Phone: Immunizations Immunization Date Immunization Notes Care Provider Sheryl luevano 01-16-2023 Influenza, Seasonal, Quadrivalent, Adjuvanted Nick Wasserman MD Work Phone: [facility] 01-11-2022 Fluzone High-Dose Quadrivalent 0.7 ML Intramuscular Suspension Prefilled Syringe Adriana Cruz Work Phone: [facility] 250 DO Work Phone: 12-31-2021 Moderna Bivalent Booster Vaccination Adriana Cruz DO Work Phone: [facility] 12-31-2021 Pfizer COVID-19 Vac Bivalent 30 MCG/0.3ML Intramuscular Suspension Adriana Cruz Work Phone: [facility] 250 DO Work Phone: 10-18-2021 Prevnar 20 0.5 ML Intramuscular Suspension Prefilled Syringe Adriana Tirado-Pike Work Phone: [facility] 250 DO Work Phone: 04-03-2021 Moderna COVID-19 Vaccine 100 MCG/0.5ML Intramuscular Suspension Adriana D Tirado-Pike Work Phone[facility] Work Phone: 02-26-2021 influenza, high dose seasonal, preservative-free Adriana D Tirado-Pike [facility] Work Phone: 05-30-2020 Moderna COVID-19 Vaccine 100 MCG/0.5ML Intramuscular Suspension Adriana Katherine Tirado-Pike Work Phone: [facility] Comment on above: Reason for Medicatio n: Other (see comment) 05-07-2020 Moderna SARS-CoV-2 Vaccination Nick Wasserman MD Work Phone: [facility] Work Phone: 05-02-2020 Moderna COVID-19 Vaccine 100 MCG/0.5ML Intramuscular Suspension Adrinaa Murphy Tirado-Pike Work Phone: [facility] Comment on above: Reason for Medicatio n: Other (see comment) 04-02-2020 zoster vaccine recombinant Adriana D Tirado-Pike [facility] Work Phone: 02-01-2020 zoster vaccine recombinant Adriana D Tirado-Pike Work Phone: [facility] 12-30-2019 Fluzone High-Dose Quadrivalent 0.7 ML Intramuscular Suspension Prefilled Syringe Adriana D Tirado-Pike Work Phone: [facility] 01-04-2019 influenza, high dose seasonal, preservative-free Adriana Cruz Work Phone: [facility] 12-18-2017 influenza, high dose seasonal, preservative-free Adriana Cruz Work Phone: [facility] 11-18-2015 pneumococcal polysaccharide vaccine, 23 valent Adriana Cruz DO Work Phone: [facility] NEGATED: Highlighted row has not occurred!01-10-2022 influenza virus vaccine, unspecified formulation Shi U[facility]ano [facility] Health Payers Date Payer Category Payer Self-pay [id number] 2022 Medicare [id number] 2020 Private Health Insurance [id number] 2.16.840.1.843975.19 2019 Unknown 2019 Unknown [id number] 2.16. 840.1.259239.19 1942 Unknown [id number] 2.16.8 40.1.171529.3.579.2.727 1942 Unknown [id number] 2.16.8 40.1.282559.3.579.2.727 1942 Unknown [id number] 2.16.8 40.1.474040.3.579.2.727 1942 Unknown [id number] 2.16.8 40.1.050569.3.579.2.727 1942 Unknown [id number] 2.16.8 40.1.273297.3.579.2.727 1942 Unknown [id number] 2.16.8 40.1.512845.3.579.2.727 1942 Unknown [id number] 2.16.8 40.1.913790.3.579.2.727 1942 Unknown [id number] 2.16.8 40.1.625331.3.579.2.727 1942 Unknown [id number] 2.16.8 40.1.701592.3.579.2.727 1942 Unknown [id number] 2.16.8 40.1.810562.3.579.2.727 1942 Unknown [id number] 2.16. 840.1.028304.3.579.2.356 1942 Unknown [id number] 2.16. 840.1.383949.3.579.2.356 1942 Unknown [id number] 2.16. 840.1.396906.3.579.2.356 1942 Unknown [id number] 2.16. 840.1.627045.3.579.2.356 1942 Unknown [id number] 2.16. 840.1.384072.3.579.2.356 1942 Unknown [id number] 2.16. 840.1.020066.3.579.2.356 1942 Unknown [id number] 2.16.8 40.1.675353.3.579.2.1244 1942 Unknown [id number] 2.16.84 0.1.299291.3.579.2.1259 1942 Unknown [id number] 2.16.84 0.1.524714.3.579.2.1259 1942 Unknown [id number] 2.16.84 0.1.347230.3.579.2.1259 1942 Unknown [id number] 2.16.84 0.1.003030.3.579.2.1259 1942 Unknown [id number] 2.16.840 .1.473663.3.579.2.1259 1942 Unknown [id number] 2.16.840. 1.579580.3.579.2.1259 Medicare [id number] Medicare Medicare [id number] Unknown [id number] 2.16.8 40.1.094814.3.579.2.531 Unknown [id number] 2.16.8 40.1.803275.3.579.2.531 Social History Date Type Detail Facility Start: 12-09-2022 End: 02-02-2023 Daily caffeine consumption Daily caffeine consumption [facility] Comment on above: tea and a dr. dunbar ; Start: 12-09-2022 End: 02-02-2023 Sex Assigned At [employer] Other Start: 11-12-2021 End: 10-16-2022 Tobacco smoking status NHIS Never smoked tobacco (finding) [facility] Start: 1940 Sex Assigned At Female [facility] Tobacco smoking status Never [facility] Start: 10-16-2022 End: 02-02-2023 Tobacco use and exposure Smokeless tobacco non-user [facility] Work Phone: Start: 02-02-2023 Alcohol intake Lifetime non-d arcelia (finding) [facility] Work Phone: Start: 1940 Sex Assigned At Not on file [facility] Work Phone: Start: 01-23-2023 End: 02-02-2023 Exposure to SARS-CoV-2 (event) Not sure [facility] Start: 05-07-2023 Alcohol intake Current drinke r of alcohol (finding) [facility] How often to you hav e a drink containing alcohol? Monthly or less [facility] How many standard drinks containing alcohol do you have on a typical day? 1 or 2 [facility] How often do you hav e 6 or more drinks on 1 occasion? Never [facility] Start: 04-10-2023 Alcohol Comment 1-2 drinks mon thly or less [facility] Start: 03-04-2023 Gender identity Identifies as female gender (finding) [facility] Functional Status Date Assessment Result Facility 01-17-2022 Functional Status N/A [facility] 01-10-2022 Functional Status N/A [facility] Clinical Notes 08-25-2021 to 05-07-2023 Adriana Cruz, DO - 05/07/2023 9:24 PM ESTScaesar Cruz, DO - 05/07/2023 9:00 AM ESTPatient Instructions Note Date & Type Note Facility 05-07-2023 History of Presen t illness Narrative Associated Problem(s): Osteoporosis, post-menopausal (CMS/HCC) Reviewed results of DEXA and how to interpret the T-scores. Discussed risks of osteoporosis and significant complications associated with the most concerning complication (hip fracture). Reviewed treatment options. Recommended treatment with oral bisphosphonate, specifically alendronate. Advised of expectations of treatment and potential SE. -In order to improve/maintain bone density, I recommended daily weight bearing activity; such as walking, dancing, low impact aerobics, elliptical machine, stair climbing or gardening. -Also, exercises to improve flexibililty and core strengthening are beneficial. -Recommend environmental modifications in the home (ie no rugs and clear clutter) to reduce risk of falls. -I encourage adequate calcium and Vit D intake- I recommend 500-1000 mg of calcium daily as dietary intake or supplement and 1000-2000IU of Vit D (this may vary depending on lab results). Vitamin D3= cholecalciferol, available over the counter. -Dose recommended 800 to 1000 international units daily with a meal; Certain patients require 6730-1495 international units daily and in patients deficient in Vitamin D, they require higher dosages. Certain patient requires higher dose, depending on their Vit D blood levels. -Vitamin D is essential for calcium metabolism. It is really a hormone produced mainly in your skin after exposure to sunlight. Vitamin D helps you absorb calcium from your stomach and kidneys and incorporates it into your bones. Studies show approximately 50% of [place] men and women are vitamin D deficient in the winter. Milder cases of vitamin D are usually asymptomatic so the only way to know you have a problem is to have a blood level checked. More severe cases can cause osteomalacia (a.k.a. rickets) which can result in bone pain, weak bones and several abnormal laboratory tests and also weak muscles (a.k.a. myopathy). When this happens, your bones lose a lot of their calcium stores as the body tries to regulate the calcium required by other tissues. Prolonged deficiency can lead to severe bone disorders and fractures. -Unlike calcium, dietary sources of vitamin D are rare, limited to a few fish oils particularly cod-liver oil, other fortified foods and egg yolks. and most are unhealthy. -Natural source of vitamin D is through sunshine. This is usually during fredis seasons, for example a 30 minute exposure to sunshine. Some people are unable to be exposed to the sun due to skin condition. Often supplementation is needed. Many multivitamins contain some vitamin D and vitamin D alone preparations are now available in several forms. If she has any issues with tolerance, would plan to change to prolia. Handouts/additional information provided to her for reference. Images from the original note were not included. Subjective Patient ID: Jazmine Perry (: 1940) is a 82 y.o. female who presents for Discuss Dexascan Results. HPI : Jazmine is here today to discuss the results of the dexascan she had recently. Treatment recommended and offered appt to discuss treatment options DEXA : T-scores: L1-4= -2.9; left femur= -2.9 and Right femur= -2.8 Current Outpatient Medications Medication Instructions alendronate (FOSAMAX) 70 mg, Oral, Every 7 days, Take in the morning with a full glass of water, on an empty stomach, and do not take anything else by mouth or lie down for the next 30 min. amLODIPine (NORVASC) 5 mg, Oral, Daily atorvastatin (Lipitor) 40 MG tablet TAKE 1 TABLET EVERY DAY chlorthalidone (Hygroton) 25 MG tablet Every 24 hours cholecalciferol (VITAMIN D-3) 25 mcg, Oral, Daily dicyclomine (BENTYL) 10 mg, Oral, 3 times daily losartan (COZAAR) 100 mg, Oral, Daily meloxicam (MOBIC) 7.5 mg, Oral, As needed naproxen (NAPROSYN) 500 mg, Oral, 2 times daily pantoprazole (ProtoNix) 40 MG EC tablet TAKE 1 TABLET EVERY DAY sertraline (Zoloft) 25 MG tablet Every 24 hours spironolactone (Aldactone) 25 MG tablet TAKE 1 TABLET EVERY MORNING Allergies Allergen Reactions Oxycodone-Acetaminophen Nausea Only All pain meds EXCEPT Morphine. Patient is able to take Morphone. Oxybutynin Other Severe dry mouth Patient Active Problem List Diagnosis Anemia Chronic cough Chronic GERD Essential hypertension ([facility]) History of skin cancer Hyperlipidemia LDL goal <70 ([facility]) Major depressive disorder, single episode, moderate ([facility]) ([facility] Mild asthma without complication ([facility]) Non-ischemic cardiomyopathy ([facility]) Osteoporosis, post-menopausal ([facility]) Overactive bladder Stage 3b chronic kidney disease (HCC) ([facility]) CAD (coronary artery disease) ([facility]) Arthritis of left foot Arthritis of left knee Venous insufficiency of both lower extremities Review of Systems Objective Vital signs: BP 116/68 Pulse 81 Wt 110 lb 12.8 oz SpO2 99% BMI 22.38 kg/m Physical Exam Constitutional: Appearance: Normal appearance. Pulmonary: Effort: Pulmonary effort is normal. Neurological: General: No focal deficit present. Mental Status: She is alert and oriented to person, place, and time. Psychiatric: Mood and Affect: Mood normal. Behavior: Behavior normal. Thought Content: Thought content normal. Judgment: Judgment normal. Assessment/Plan Problem List Items Addressed This Visit Osteoporosis, post-menopausal ([facility]/HCC) - Primary Overview DEXA 04/16/2023: T-scores: L1-4= -2.9; left femur= -2.9 and Right femur= -2.8 Current Assessment & Plan Reviewed results of DEXA and how to interpret the T-scores. Discussed risks of osteoporosis and significant complications associated with the most concerning complication (hip fracture). Reviewed treatment options. Recommended treatment with oral bisphosphonate, specifically alendronate. Advised of expectations of treatment and potential SE. -In order to improve/maintain bone density, I recommended daily weight bearing activity; such as walking, dancing, low impact aerobics, elliptical machine, stair climbing or gardening. -Also, exercises to improve flexibililty and core strengthening are beneficial. -Recommend environmental modifications in the home (ie no rugs and clear clutter) to reduce risk of falls. -I encourage adequate calcium and Vit D intake- I recommend 500-1000 mg of calcium daily as dietary intake or supplement and 1000-2000IU of Vit D (this may vary depending on lab results). Vitamin D3= cholecalciferol, available over the counter. -Dose recommended 800 to 1000 international units daily with a meal; Certain patients require 7434-5105 international units daily and in patients deficient in Vitamin D, they require higher dosages. Certain patient requires higher dose, depending on their Vit D blood levels. -Vitamin D is essential for calcium metabolism. It is really a hormone produced mainly in your skin after exposure to sunlight. Vitamin D helps you absorb calcium from your stomach and kidneys and incorporates it into your bones. Studies show approximately 50% of [place] men and women are vitamin D deficient in the winter. Milder cases of vitamin D are usually asymptomatic so the only way to know you have a problem is to have a blood level checked. More severe cases can cause osteomalacia (a.k.a. rickets) which can result in bone pain, weak bones and several abnormal laboratory tests and also weak muscles (a.k.a. myopathy). When this happens, your bones lose a lot of their calcium stores as the body tries to regulate the calcium required by other tissues. Prolonged deficiency can lead to severe bone disorders and fractures. -Unlike calcium, dietary sources of vitamin D are rare, limited to a few fish oils particularly cod-liver oil, other fortified foods and egg yolks. and most are unhealthy. -Natural source of vitamin D is through sunshine. This is usually during fredis seasons, for example a 30 minute exposure to sunshine. Some people are unable to be exposed to the sun due to skin condition. Often supplementation is needed. Many multivitamins contain some vitamin D and vitamin D alone preparations are now available in several forms. If she has any issues with tolerance, would plan to change to prolia. Handouts/additional information provided to her for reference. Relevant Medications cholecalciferol (Vitamin D-3) 25 MCG (1000 UT) tablet alendronate (Fosamax) 70 MG tablet Health Maintenance Topic Date Due Medicare Annual Wellness (AWV) 12/10/2023 Influenza Vaccine Completed Pneumococcal Vaccine: 65+ Years Completed Immunization History Administered Date(s) Administered Influenza, High-dose Seasonal, Quadrivalent, Preservative Free 12/30/2019, 01/11/2022 Influenza, Seasonal, Quadrivalent, Adjuvanted 01/16/2023 Moderna Bivalent Booster Vaccination 12/31/2021 Moderna SARS-CoV-2 Vaccination 05/02/2020, 05/30/2020, 04/03/2021 Pneumococcal Conjugate PCV 20 10/18/2021 Pneumococcal Polysaccharide PPSV23 11/18/2015 SARS-COV-2 (COVID-19) vaccine, mRNA, spike protein, LNP, bivalent, preservative free, 30 mcg/0.3 mL dose, pat-sucrose formulation 12/31/2021 Zoster, Recombinant 02/01/2020, 04/02/2020 -Patient's chronic conditions have been reviewed in preparation for this appointment. Protocols reviewed and updated. A collaborative plan of care has been created for pt regarding specific health concerns. Any barriers to care have been identified and addressed. Any part of this document that has been added/copied from other documents has been reviewed for accuracy and updated as appropriate at the time of the patient encounter. -Follow up in about 4 months (around 09/05/2023) for routine follow up. Adriana Cruz D.O. Board Certified Step Down Specialist documented in this encounter [facility] 05-07-2023 Instructions Adriana Cruz DO - 05/07/2023 9:00 AM EST -In order to improve/maintain bone density, I recommended daily weight bearing activity; such as walking, dancing, low impact aerobics, elliptical machine, stair climbing or gardening. -Also, exercises to improve flexibililty and core strengthening are beneficial. -Recommend environmental modifications in the home (ie no rugs and clear clutter) to reduce risk of falls. -I encourage adequate calcium and Vit D intake- I recommend 500-1000 mg of calcium daily as dietary intake or supplement and 1000-2000IU of Vit D (this may vary depending on lab results). Vitamin D3= cholecalciferol, available over the counter. -Dose recommended 800 to 1000 international units daily with a meal; Certain patients require 4788-0880 international units daily and in patients deficient in Vitamin D, they require higher dosages. Certain patient requires higher dose, depending on their Vit D blood levels. -Vitamin D is essential for calcium metabolism. It is really a hormone produced mainly in your skin after exposure to sunlight. Vitamin D helps you absorb calcium from your stomach and kidneys and incorporates it into your bones. Studies show approximately 50% of [place] men and women are vitamin D deficient in the winter. Milder cases of vitamin D are usually asymptomatic so the only way to know you have a problem is to have a blood level checked. More severe cases can cause osteomalacia (a.k.a. rickets) which can result in bone pain, weak bones and several abnormal laboratory tests and also weak muscles (a.k.a. myopathy). When this happens, your bones lose a lot of their calcium stores as the body tries to regulate the calcium required by other tissues. Prolonged deficiency can lead to severe bone disorders and fractures. -Unlike calcium, dietary sources of vitamin D are rare, limited to a few fish oils particularly cod-liver oil, other fortified foods and egg yolks. and most are unhealthy. -Natural source of vitamin D is through sunshine. This is usually during fredis seasons, for example a 30 minute exposure to sunshine. Some people are unable to be exposed to the sun due to skin condition. Often supplementation is needed. Many multivitamins contain some vitamin D and vitamin D alone preparations are now available in several forms. documented in this encounter [facility] 04-16-2023 Note CLINICAL HISTORY: axel ne density [...] She understands and agrees with the plan. [employer] Other 10-30-2023 History of Present illness Narrative* [...] Rfl: Assessment/Plan 1. 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 2. Essential hypertension, benign Well-controlled on current therapy 3. Mixed hyperlipidemia Well-controlled on current therapy 4. Nonischemic cardiomyopathy (CMS/HCC) No manifestations of heart failure detectable today. documented in this [facility] Work Phone: 1(111) 253-126910-30-2023 Instructions* Patient Instructions* Dante Jacob MA - [...] time of [facility] visit. [facility] 1(767) 867-768609-14-2023 Evaluation note* Encounter Date Diagnosis Assessment Notes Treatment Notes Treatment Clinical Notes Dec, Arthritis of left knee (ICD-10 - M17.12) Patient was prepped and coritone was injected into the left knee under sterile conditions. Patient tolerated well with no adverse reactions. Activity as tolerate. [employer] Other 05-27-2023 Evaluation note* Encounter Date Diagnosis [...] Pt understood and agreed to treatment plan. [employer] Other 12-06-2022 NoteAdmission and Discharge Information Admitting [...] levels flattened. Cardiology consultation was placed at [facility] cardiology group Dr. Wasserman who patient [...] 73.9 % Lymph Auto - 12.3 % Deuel Auto - 7.4 % Eos Auto - 3.6 % Basophil Auto - 2.8 % Neutro Absolute - 6.2 E9/L Lymph Absolute - 1.0 E9/L Deuel Absolute - 0.6 E9/L Eos Absolute - [...] Est - 1+ U (more content not included)...[facility]: Result Comment: Electronically Signed By: Yolanda SALAS\.br\Date and Time Signed: 03/10/22 20:44 EST\.br\Electronically Co-Signed By: Pantera QUICK MD\.br\Date and Time Co-Signed: 03/11/2210:53 [id number] NoteMicrobiology PROCEDURE: Blood Culture Charcoal [R1] SOURCE: Blood BODY SITE: Arm R COLLECTED DATE/TIME: 02/24/2022 13:54 EST RECEIVED DATE/TIME: 02/24/2022 14:07 EST START DATE/TIME: 02/24/2022 14:07 EST FREE TEXT SOURCE: Jay Emery DO, DO, John FINAL REPORTS Final Report [] Verified Date/Time: 03/03/2022 18:00 EST No growth at 7 days. Performing Locations R1: [facility], [address] [place] [address], [id number] , , OjwgseMercy Health Urbana HospitalComment on above:Performed By: #### [id number] #### [address] [id number] NoteMicrobiology PROCEDURE: Blood Culture Charcoal [R1] SOURCE: Blood BODY SITE: Arm L COLLECTED DATE/TIME: 02/24/2022 13:44 EST RECEIVED DATE/TIME: 02/24/2022 14:08 EST START DATE/TIME: 02/24/2022 14:08 EST FREE TEXT SOURCE: AVERY Emery DO, Jay Emery DO, Jay FINAL REPORTS Final Report [] Verified Date/Time: 03/03/2022 18:00 EST No growth at 7 days. Performing Locations R1: This test was performed at: [facility], [address] [place] [address], [id number], MvbxjaMercy Health Urbana HospitalComment on above:Performed By: #### [id number] ####[facility] [id number] [place], [place] [id number] NoteHOSPITAL REGULATIONS: All Positive and Important Negative [...] a surgery isunclear to me. ALLERGIES:Percocet, Darvocet, [place], Oxycodone. PSYCHOSOCIAL HISTORY:Nonsmoker, nondrinker. FAMILY HISTORY:Diabetes, heart disease, lung cancer. REVIEW OF SYSTEMS:Otherwise negative, normal and noncontributory. PHYSICAL EXAMINATION: Vital signs: An ill appearing female. She is uncomfortable and moves slowly. Her blood pressure dsw363/66, pulse 64, respirations 16, temperature 36.8, weight [...] hospitalization. Jaime Wasserman M.D. lr Dictated: 02/26/2022 [id number] Transcribed: 02/26/2022 cc:Adriana Cruz D.O.[facility] HospitalComment on above: Result Comment: Electronically Signed By: Lisy ERIC, Nick Cheema\.br\Date and Time Signed: 02/27/22 14:23 [id number] NotePT Evaluation done this date. Pt. with on AM-PAC this date. She is safe and independent with all functional activities with no further PT needs.[facility]11-[facility] Note Chief Complaint Had hernia repair [...] Lymph Auto: 12.3 % Low (02/24/22 13:54:00) Deuel Auto: 7.4 % (02/24/22 13:54:00) Eos Auto: 3.6 % (02/24/22 13:54:00) Basophil Auto: 2.8 % High (02/24/22 13:54:00) Neutro Absolute: 6.2 E9/L (02/24/22 13:54:00) Lymph Absolute: 1 E9/L (02/24/22 13:54:00) Deuel Absolute: 0.6 E9/L (02/24/22 13:54:00) Eos Absolute: [...] (02/24/22 14:55:00) UA C (more content not included)...[facility] HospitalComment on above: Result Comment: Electronically Signed By: Yolanda SALAS\.br\Date and Time Signed: 02/24/22 21:25 EST\.br\Electronically Co-Signed By: Yolanda SALAS\.br\Date and Time Co-Signed: 02/24/22 21:27 EST\.br\Electronically Co-Signed By: J Carlos KEN MD\.br\Date and Time Co-Signed: 02/25/22 07:18 [id number] Notegeneral surgery interval progress note: S.81 y/o [...] with the patient and her daughter, including [facility] Comment on above:Result Comment: Electronically Signed By: Jannet ERIC, Jay Lock\.br\Date and Time Signed: 02/24/22 14:56 [id number] NoteHistory and Physical Update H&P Reviewed. Patient [...] mg= 1 mL, IV Push, q5min, PRN [place] 325 mg-5 mg oral tablet, 1 tab(s), [...] disease: Father. Primary malignant neoplasm of lung: Sister.[facility]11-02-2022 [id number]:[address] [place], [place] 8841710-17-2022 [id number]:[address] [place], [place] 8841710-14-2022 Evaluation + Plan noteExtracted from: Title:ANES POSTOP Author:Eliecer Pennington DO Date: 01/17/22 Plan Transfer/ Discharge: Patient can be discharged from PACU when criteria met. Condition good. Extracted from: Title:ANES PREOP ENDO NOTE Author:Waylon Pennington DO Date:01/17/22 Plan [place] [employer]esthes[employer] (ASA) physical status classification: [...] Date:02/03/2022 10:20:00 AM Scheduled Provider:Jay Power MD Location:[facility] Appointment Type:[address]10-14-2022 Hospital Discharge instructions Patient Education 01/17/2022 [...] what activities are safe for you. Take rmnk-ztn-udtqfuj and prescription medicines only as told by [...] 09/21/2012 Document Revised: 09/14/2018 Document Reviewed: 08/23/2018 [email or web address] Patient Education 2020 [employer] 01/17/2022 10:08:02 Colonoscopy, Care After Surgery Salam [...] unsweetened, w/added ascorbic acid 1 cup 0.5 [place] 1 cup 0.7 Vegetables Cooked Green beans 1 cup 4.0 Carrots 1/2 cup sliced 2.3 Peas 1 cup 8.8 Potato (baked, with skin) 1 medium potato 3.8 Raw Buffalo (with peel) 1 cucumber 1.5 Lettuce 1 [...] 8.7 Peanuts 1/2 cup 7.9 Chart from [facility] 2013. SEEK IMMEDIATE MEDICAL CARE IF: You [...] Information adapted from: ExitCare Patient Information 2009 [employer]. [facility] 2012 [email or web address] Follow Up Care 01/10/2022 12:34:05 With:Jeferson COPE Address: [address] [place] [phone] [facility] (1) When: Unknown Comments:office will call for follow up [facility]10-07-2022 Hospital Discharge instructions Patient Education 01/10/2022 [...] or in yourlocal community. General instructions Take cufy-jax-faqrcfa and prescription medicines only as told by [...] International Foundation for Functional Gastrointestinal Disorders: [email or web address]: [email or web address] Contact a health [...] restrictions, lifestyle changes, and skin care. Take vzfv-hrk-qyefyqq and prescription medicines only as told by [...] 03/04/2005 Document Revised: 08/05/2018 Document Reviewed: 08/05/2018 [email or web address] Patient Education 2020 [employer] 01/10/2022 10:49:37 Colonoscopy, Adult Colonoscopy, Adult [...] including vitamins, herbs, eye drops, creams, and dyrr-ttx-ljxdnug medicines. Any problems you or family members [...] 03/20/2001 Document Revised: 01/13/2018 Document Reviewed: 06/03/2016 [email or web address] Patient Education 2019 [employer] Follow Up Care 11/13/2021 10:56:24 With:Shi Urbano CNP Address: When:1 to 2 weeks [facility] 05-26-2022 Evaluation note* Encounter Date [...] consider an injection in the left knee. [employer] Other 05-22-2022 Evaluation note* Encounter Date Diagnosis [...] Will treat with prednisone, doxycycline, albuterol, and guaifenesin-starla nielsen. Eye drainage is most likely from reflux [...] Pt understands and agrees with the plan. [employer] Other Evaluation + Plan note Future Appointments Appointment Date:02/24/2022 12:30:00 PM Scheduled Provider: Location:[facility] Appointment Type:Surgery FT Future Scheduled Tests Laboratory* Fecal WBC Lactoferrin 01/10/22 * Giardia lamblia, Direct Detection EIA 01/10/22 * O & P Exam, Routine 01/10/22 * Clostridium difficile by PCR 01/10/22 * Enteric Panel by PCR 01/10/22 [facility] Evaluation noteNo assessment information available [facility] Work Phone: Evaluation note* Diagnosis 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- Primary Essential hypertension, benign Mixed hyperlipidemia Nonischemic cardiomyopathy (CMS/HCC) Other primary cardiomyopathies documented in this encounter [facility] Work Phone: Evaluation note* Diagnosis Osteoporosis, post-menopausal (CMS/HCC)- Primary Senile osteoporosis [facility] - Reported* Type Description Date Medical History high cholesterol Medical History high blood pressure Medical History [place] Medical History asthma Surgical History right knee repacement Surgical History gall bladder Surgical History hysterectomy Surgical History carpal tunnel release Hospitalization History heart [employer] Other History of Present illness Narrative* Patient [...] other recommendation for changes in medical therapy. [facility] Work Phone: History of Present [...] which appears to be adequate and appropriate. [facility] Work Phone: History of Present [...] which appears to be adequate and appropriate. [facility] Work Phone: History of [...] no change and she will [facility] next [facility] Work Phone: Hospital course Narrative No data available for this section [facility] Discharge instructions Additional Instructions Increase your intake of fluids. Take Zofran as prescribed for nausea. Follow-up with your primary care physician for reevaluation in 3 to 5 days.[facility] Work Phone: Progress note No data available for this section [facility] Reason for referral (narrative)* Consultation (Routine) - Authorized Specialty Diagnoses / Procedures Referred By Silvano brown Referred To Contact Cardiology Diagnoses Essential hypertension, benign Procedures Follow Up In Cardiology Nick Wasserman MD [address] [address] Nick Wasserman MD [address], [address] [address] Referral ID Status Reason Start Date Expiration Date V isits Requested Visits Authorized [id number] Authorized 02/02/2023 02/02/2024 1 1 T [facility] Work Phone: Summary Purpose Family History Unknown Family Member Name Dates Details Family [...] myocardial infarction: Mother(V17.3, Z82.49) Status:Active Advance Directives Advance Directive Response Recorded Date/ Time Advance [...] section and content) DATE CREATED AUTHOR 04/09/2019 [facility] DATE CREATED AUTHOR AUTHOR'S ORGANIZ ATION 11/20/2020 [facility] DATE CREATED AUTHOR AUTHOR'S ORGANIZ ATION 09/01/2021 [facility] DATE CREATED AUTHOR AUTHOR'S ORGANIZ ATION 10/25/2021 [facility] dical Specialist DATE CREATED AUTHOR AUTHOR'S ORGANIZ ATION 03/07/2022 [employer] DATE CREATED AUTHOR AUTHOR'S ORGANIZ ATION 03/11/2022 [facility] ical Center DATE CREATED AUTHOR AUTHOR'S ORGANIZ ATION 04/01/2022 [facility] ical Center DATE CREATED AUTHOR AUTHOR'S ORGANIZ ATION 02/03/2023 [facility] DATE CREATED AUTHOR AUTHOR'S ORGANIZ ATION 02/20/2023 [facility] DATE CREATED AUTHOR AUTHOR'S ORGANIZ ATION 03/21/2023 [facility] DATE CREATED AUTHOR AUTHOR'S ORGANIZ ATION 05/08/2023 [facility] dical Specialists EPIC REASON FOR VISIT (unrecogniz ed section and content) Reason Comments Follow-up 6m Reason Comments Discuss [employer] Results Care Teams (unrecognized sec tion and content) Team Status: Active Member Role Status Dates Adriana Cruz DO Primary Care Provider Active Team Status: Inactive Member Role Status Dates Adriana Cruz DO Primary Care Provider Active Nick Wasserman MD Attending Provider Active Team Status: Inactive Member Role Status Dates Adriana Cruz DO Primary Care Provider Active Misbah Greenwood DO Emergency Provider Active Fitness Technician Relationship Specialty Start Date End Date Adriana Cruz DO [address] [facility] [address] [place] [address] PCP - General 09/17/20 Team Status: Inactive Member Role Status Dates Adriana Cruz DO Primary Care Provider Active Eliecer Gray NP-C Attending Provider Mo almanzar Fitness Technician Relationship Specialty Start Date End Date Adriana Cruz DO [address] [facility] [address] [place] [address] PCP - [employer] 04/06/20 Adriana Cruz DO [address] [place] [address] PCP - General Internal Medicine 02/18/23 Krissy Velazquez MD [address] [place] [phone] Consulting Physician Dermatology 12/03/22 [place] [address] [place] [address] Referring Physician Ophthalmology 12/03/22 Valentín Jacobson, DPM FACFAS [address] [place] [phone] Consulting Physician Podiatry 12/08/22 Aye Wasserman MD [address] [place] [address] Consulting Physician Cardiology 12/08/22 Jeferson Cope MD [address] [place] [phone] Consulting Physician Gastroenterology 12/08/22 Clement Madrid MD [address] [place] [address] Consulting Physician Orthopaedic Surgery 12/09/22 Goals (unrecognized section and content) Goals may [...] BE BASED ON THE PRIMARY CLINICAL RECORDS. [employer] provides no warranty or guarantee of the accuracy or completeness of information in this document.
== END 2023-05-15 12:21 | disposition home or self-care (01) ==
LOC: VC 12:24
PROVIDERS: PCP Radiology Diagnostic Radiology; Visit Provider Radiology Diagnostic Radiology
DX: I83.813 Varicose veins of bilateral lower extremities with pain (principal)
CPT/HCPCS: 36471

== ENCOUNTER 2023-05-19 09:50 | Outpatient (OUT) | payer MEDICARE, OTHER, SELFPAY ==
--- NOTE | 2023-05-19 09:52 | VEIN_ITS ---
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 TECHNIQUE: The risks and benefits of the procedure were explained at length to the patient and informed written consent was obtained. Alexey Sosa was present and assisted. The procedure was performed under sterile technique. The patient's leg was wrapped with Coban and postprocedural verbal and written instructions provided. SCLEROSANT: 4 cc, 0.5% polidocanol VEIN(S) INJECTED: 21 veins in the right leg VISUALIZATION: Ultrasound was not used to visualize the sclerosant ANESTHESIA: Supercooled air COMPLICATIONS: None VEIN/VC INJ Sclerosing SOLMULT Vein IMPRESSION: Technically successful sclerotherapy as described Electronically authenticated by: SHAMIKA FLORES Date: 05/19/2023 11:14
--- OUTSIDE RECORDS SUMMARY | 2023-05-19 10:07 | XMS_ITS | CCD ---
Author Name Unknown Address [address] [place] [address] Organization [facility] Care Team Providers Care Finding Fastener Name Role Phone Adriana Cruz Unavailable [phone] Unavailable Unavailable Clement Madrid II Unavailable [phone] Eliecer Gray Unavailable DO Adriana Cruz Primary Care Provider [phone] DO Misbah Greenwood Emergency Provider [facility] Primary Care Physician [phone] Shi Urbano Attending Unavailable Shi Urbano Admitting Unavailable Shi Urbano Attending Unavailable Shi Urbano Admitting Unavailable [employer] Unavailable J Carlos KEN Attending Unavailable J Carlos EKN Admitting Unavailable [employer] Unavailable Jay [...] Jeferson Attending Unavailable SALAM, Govea Admitting Unavailable Tirado-Esmeralda, Adriana Billei Primary Care Unava ilable Tirado-Esmeralda, Adriana Billie Primary Care Unava ilable McGuinn II, Nick Garduno Attending Unav ailable McGuinn II, Nick Garduno Attending Unav ailable Tirado-Esmeralda, Adriana Billie Primary Care Unava ilable McGuinn II, Nick Garduno Referring Unav ailable Tirado-Esmeralda, Adriana Billie Primary Care Unava ilable McGuinn II, Nick Garduno Referring Unav ailable McGuinn II, Nick Garduno Attending Unav ailable Tirado-Esmeralda, Adriana Billie Primary Care Unava ilable Tirado-Esmeralda, Adriana Billie Primary Care Unava ilable McGuinn II, Nick Garduno Attending Unav ailable Luis Nolasco Unavailable Savanna Cassidy Unavailable Tirado-Esmeralda DO, Adriana Billie Primary Care Provi octavio Tirado-Esmeralda, DO Adriana Primary Care Provider [phone] MD Nick Wasserman Attending Provider NICK WASSERMAN Attending Unavailable TIRADO-EMERY, ADRIANA BILLIE Primary Care Unava ilable Tirado-Esmeralda, DO Adriana Primary Care Provider MD Nick Wasserman Attending Provider LIT Gray Attending Provider Tirado-Esmeralda, Adriana Primary Care Unavailable Nick Wasserman Admitting Unavail able Nick Wasserman Attending Unavail able Eliecer Gray Attending Unavaila ble Tirado-Esmeralda, Adriana Primary Care Unavailable Eliecer Gray Admitting Unavaila ble TIRADO-EMERY, ADRIANA D Attending Unavailab le TIRADO-EMERY, ADRIANA D Referring Unavailab le TIRADO-EMERYADRIANA Referring Unavailab le IRMA ANGEL Attending Unavailable TIRADOADRIANA GARCIA Referring Unavailab le TIRADO-EMERYADRIANA Attending Unavailab le TIRADO-EMERYADRIANA Referring Unavailab le GENEVLAENTÍN Attending Unavailable Tirado-Esmeralda Adriana PACE Unavailable Marcus ERIC, Krissy Almanzar Unavailable [phone] Ha ERIC, Cristhian Almanzar Unavailable Gene ESTES FACValentín MOREIRA Unavailable Lisy ERIC, Aye Unavailable [phone] Jeferson Cope MD Unavailable Clement Madrid MD Unavailable Adriana Cruz DO Primary Care Provider Allergies Allergy Classification Reported Allergen(s) Allergy Type Date of Onset Reaction(s) Facility (4 sources) HYDROcodone; Translations: [hydrocodone] Drug Allergy 2 [facility] (5 sources) oxyCODONE; Translations: [oxyCODONE] Drug Allergy 2 [facility] (2 sources) Acetaminophen / oxyCODONE; Translations: [acetaminophen-ox ycodone] Drug Allergy Nausea (finding) [facility] Comment on above: All pain meds EXCEPT Morphine. Patient is able to take Morphone. (1 source) Acetaminophen / HYDROcodone; Translations: [[place]] Drug Allergy [facility] (1 source) Acetaminophen / oxyCODONE; Translations: [Percocet] Drug Allergy [facility] (1 source) Darvocet-N 100; Translations: [Darvocet-N 100] Propensity to adverse reactions (disorder) [facility] (2 sources) Acetaminophen / oxyCODONE [...] 1 EA, Refill(s) 0, Prior to colonoscopy., [address], 150, cm, 10/07/22 10:48:00 EDT, Height/Length [...] [Coronary atherosclerosis of unspecified type of vessel, [place] or graft] Onset: 3 02-02-2023 Chronic Disorders [...] IS VERY IMPORTANT TO YOUR HEALTH. 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 Person calling: caregiver: Alanis Return call to: self Medical Records/Insurance Card scanned into [employer] ICT: Yes Comments: This was Routed Incorrectly Allergies As of Date: 02/20/2023 Noted Allergy Reaction OXYBUTYNIN 10/13/2018 14 - Other: See Comments Comments: Severe dry mouth Date Reviewed: 02/21/2020 Reviewed by: Telma Reddy (Ks) - Fully Assessed Reason for Visit: External [...] Status:Closed by ALANIS CASTILLO on 02/20/23 Normal [facility] Urinalysis - DIPSTICKon Appearance (U) cloudy [employer] Other Bilirubin Ql (U) Negative [employer] Other Color (U) yellow [employer] Other Glucose Ql (U) Negative [employer] Other Hemoglobin Ql (U) small [employer] Other Ketones Ql (U) Negative [employer] Other Leukocyte esterase Test strip Ql (U) large [employer] Other Nitrite Ql (U) Positive [employer] Other pH (U) 5.0 [pH] [employer] Other Protein Ql (U) trace [employer] Other Specific gravity (U) [Rel density] 1.025 [employer] Other Urobilinogen (U) [Mass/Vol] 0.2 mg/dL [employer] Other Urinalysis - DIPSTICK Nor [employer] Other Urine Cultureon 02-11-2023 Bacteria identified Cx Nom (U) ORGANISM: Escherichia coli (O:ESCCOL) [place] Count >100,000 Aerobic DYLAN Charge (NMIC56) SUSCEPTIBILITY [...] RESISTANT TO ALL B-LACTAM DRUGS. PERFORMED BY: [place] [address] PATHOLOGIST CREDIT AND LOAN COLLECTIONS SUPERVISOR RENAN CAIN M.D. [facility] Comment on above: Performed By: #### C UU #### [address] Basic Metabolic Panelon 10-3 0-2022 Anion gap [Moles/Vol] 11.0 mmol/L Normal 6.0-15.0 [facility] Comment on above: Performed By: #### L IPID, BMP, CBC #### [address] Calcium [Mass/Vol] 10.1 mg/dL Normal 8.6-10.3 [facility] Comment on above: Performed By: #### L LANA OLIVEROS, CBC #### [facility] [address] [place] [address] [place] Chloride [Moles/Vol] 107 mmol/L Normal 98-107 [facility] Comment on above: Performed By: #### L LANA OLIVEROS, CBC #### [facility] [address] [place] [address] [place] CO2 [Moles/Vol] 26.4 mmol/L Normal 21.0-31.0 [facility] Comment on above: Performed By: #### L LANA OLIVEROS, CBC #### [facility] [address] [place] [address] [place] Creatinine [Mass/Vol] 1.34 mg/dL High 0.60-1.20 [facility] Comment on above: Performed By: #### L LANA OLIVEROS, CBC #### [facility] [address] [place] [address] [place] GFR/1.73 sq M.predicted MDRD (S/P/Bld) [Vol rate/Area] 40.085 mL/min/{1.73_m2} Normal [facility] Comment on above: Performed By: #### L LANA OLIVEROS, CBC #### [facility] [address] [place] [address] [place] Glucose [Mass/Vol] 91 mg/dL Normal 70-100 [facility] Comment on above: Result Comment: [facility] Glucose Reference Range is dependent on time and content of last meal. Glucose of more than 200 mg/dL in a nonstressed, ambulatory subject supports the diagnosis of Diabetes Mellitus. ADA recommended reference range Performed By: #### L LANA OLIVEROS, CBC #### [facility] [address] [place] [address] [place] Potassium [Moles/Vol] 4.4 mmol/L Normal 3.5-5.1 [facility] Comment on above: Performed By: #### L IPID, BMP, CBC #### [facility] [address] [place] [address] [place] Sodium [Moles/Vol] 140 mmol/L Normal 136-145 [facility] Comment on above: Performed By: #### L IPID, BMP, CBC #### [facility] [address] [place] [address] [place] Urea nitrogen [Mass/Vol] 23 mg/dL Normal 7-25 [facility] Comment on above: Performed By: #### L IPID, LANA, CBC #### [facility] [address] [place] [address] [place] Basophils Auto (Bld) [#/Vol] Ordered By: Nick Wasserman on 02-02-2023 Basophils (Bld) [#/Vol] 0.0 10*3/uL 0.0-0.2 [facility] Basophils/100 WBC Auto (Bld) Ordered By: Nick Wasserman on 02-02-2023 Basophils/100 WBC (Bld) 0.4 % . [facility] Calcium [Mass/volume] in Ser um or PlasmaOrdered By: Nick Wasserman on 02-02-2023 Calcium [Mass/Vol] 10.1 mg/dL 8.6-10.3 [facility] Carbon dioxide, total [Moles /volume] in Serum or PlasmaOrdered By: Nick Wasserman on 02-02-2023 CO2 [Moles/Vol] 26.4 mmol/L 21.0-31.0 [facility] Chloride [Moles/volume] in S kobi or PlasmaOrdered By: Nick Wasserman on 02-02-2023 Chloride [Moles/Vol] 107 mmol/L 98-107 [facility] Cholesterol [Mass/volume] in Serum or PlasmaOrdered By: Nick Wasserman on 02-02-2023 Cholesterol [Mass/Vol] 170 mg/dL 140-200 [facility] Comment on above: Chol less than 200 m g/dl low riskChol 201-239 mg/dl borderline riskChol 240 mg/dl and greater high risk Cholesterol in LDL Calc [Mas s/Vol]Ordered By: Nick Wasserman on 02-02-2023 Cholesterol in LDL [Mass/Vol] 89 mg/dL 0-100 [facility] Comment on above: LDL ATP III CLASSIFI CATIONLDL less than 100 mg/dL OptimalLDL 100-129 mg/dL Near or above optimalLDL 130-159 mg/dL Borderline highLDL 160-189 mg/dL HighLDL greater than 189 mg/dL Very high Cholesterol in VLDL Calc [Ma ss/Vol]Ordered By: Nick Wasserman on 02-02-2023 Cholesterol in VLDL [Mass/Vol] 25 mg/dL [facility] Complete Blood Count Auto Di ffon 02-02-2023 Basophils (Bld) [#/Vol] 0.0 10*3/uL Normal 0.0-0.2 [facility] Comment on above: Result Comment: PERF ORMED BY: [place] [address] PATHOLOGIST CREDIT [employer] LOAN COLLECTIONS SUPERVISOR RENAN CAIN M.D. Performed By: #### L IPID, BMP, CBC #### [facility] [address] [place] [address] [place] Basophils/100 WBC (Bld) 0.4 % Normal . [facility] Comment on above: Performed By: #### L IPID, BMP, CBC #### [facility] [address] [place] [address] [place] Eosinophils (Bld) [#/Vol] 0.3 10*3/uL Normal 0.0-0.45 [facility] Comment on above: Performed By: #### L IPID, BMP, CBC #### [facility] [address] [place] [address] [place] Eosinophils/100 WBC (Bld) 3.4 % Normal . [facility] Comment on above: Performed By: #### L IPID, BMP, CBC #### [facility] [address] [place] [address] [place] Erythrocyte distribution width (RBC) [Ratio] 13.0 % Normal 11.9-15.3 [facility] Comment on above: Performed By: #### L IPID, BMP, CBC #### [facility] [address] [place] [address] [place] Hematocrit (Bld) [Volume fraction] 37.3 % Normal 34.0-46.4 [facility] Comment on above: Performed By: #### L IPID, BMP, CBC #### [address] Hemoglobin (Bld) [Mass/Vol] 12.5 g/dL Normal 11.8-15.4 [facility] Comment on above: Performed By: #### L IPID, BMP, CBC #### [address] Lymphocytes (Bld) [#/Vol] 1.4 10*3/uL Normal 1.00-4.8 [facility] Comment on above: Performed By: #### L IPID, BMP, CBC #### [address] Lymphocytes/100 WBC (Bld) 16.6 % Normal . [facility] Comment on above: Performed By: #### L IPID, BMP, CBC #### [address] MCH (RBC) [Entitic mass] 30.9 pg Normal 24.7-34.3 [facility] Comment on above: Performed By: #### L IPID, BMP, CBC #### [address] MCV (RBC) [Entitic vol] 91.8 fL Normal 80-100 [facility] Comment on above: Performed By: #### L IPID, BMP, CBC #### [address] Mean Corpuscular HGB Conc 33.6 g/dL Normal 32.0-35.0 [facility] Comment on above: Performed By: #### L IPID, BMP, CBC #### [address] Monocytes (Bld) [#/Vol] 0.8 10*3/uL Normal 0.0-0.8 [facility] Comment on above: Performed By: #### L IPID, BMP, CBC #### [place] [address] [place] Monocytes/100 WBC (Bld) 9.0 % Normal . [facility] Comment on above: Performed By: #### L IPID, BMP, CBC #### [facility] [address] Neutrophils (Bld) [#/Vol] 6.1 10*3/uL Normal 1.8-7.7 [facility] Comment on above: Performed By: #### L IPID, BMP, CBC #### [facility] [address] Neutrophils/100 WBC (Bld) 70.6 % Normal . [facility] Comment on above: Performed By: #### L IPID BMP, CBC #### [facility] [address] NRBC% 0.0 /100{WBC} Normal 0-0.5 [facility] Comment on above: Performed By: #### L IPID, BMP, CBC #### [facility] [address] [place] [address] Platelet mean volume (Bld) [Entitic vol] 8.2 fL Normal 6.3-10.7 [facility] Comment on above: Performed By: #### L IPID BMP, CBC #### [place] [address] [place] Platelets (Bld) [#/Vol] 296 10*3/uL Normal 150-450 [facility] Comment on above: Performed By: #### L IPID, BMP, CBC #### [facility] [address] [place] [address] [place] RBC (Bld) [#/Vol] 4.07 10*6/uL Normal 3.60-5.00 [facility] Comment on above: Performed By: #### L IPID, BMP, CBC #### [place] [address] [place] WBC (Bld) [#/Vol] 8.6 10*3/uL Normal 3.8-11.6 [facility] Comment on above: Performed By: #### L IPID, BMP, CBC #### [facility] [address] Creatinine [Mass/volume] in Serum or PlasmaOrdered By: Nick Wasserman on 02-02-2023 Creatinine [Mass/Vol] 1.34 mg/dL 0.60-1.20 [facility] Eosinophils Auto (Bld) [#/Vo l]Ordered By: Nick Wasserman on 02-02-2023 Eosinophils (Bld) [#/Vol] 0.3 10*3/uL 0.0-0.45 [facility] Eosinophils/100 WBC Auto (Bl d)Ordered By: Nick Wasserman on 02-02-2023 Eosinophils/100 WBC (Bld) 3.4 % . [facility] Erythrocyte distribution wid th Auto (RBC) [Ratio]Ordered By: Nick Wasserman on 02-02-2023 Erythrocyte distribution width (RBC) [Ratio] 13.0 % 11.9-15.3 [facility] Glucose [Mass/volume] in Ser um or PlasmaOrdered By: Nick Wasserman on 02-02-2023 Glucose [Mass/Vol] 91 mg/dL 70-100 [facility] Comment on above: ADA recommended refe rence rangeRandom Glucose Reference Range is dependent on time and content of last meal. Glucose of more than 200 mg/dL in a nonstressed, ambulatory subject supports the diagnosis of Diabetes Mellitus. Hematocrit Auto (Bld) [Volum e fraction]Ordered By: Nick Wasserman on 02-02-2023 Hematocrit (Bld) [Volume fraction] 37.3 % 34.0-46.4 [facility] Hemoglobin [Mass/volume] in BloodOrdered By: Nick Wasserman on 02-02-2023 Hemoglobin (Bld) [Mass/Vol] 12.5 g/dL 11.8-15.4 [facility] Leukocytes [#/volume] correc sergey for nucleated erythrocytes in Blood by Automated counOrdered By: Nick Wasserman on 02-02-2023 WBC corrected for nucl RBC Auto (Bld) [#/Vol] 8.6 10*3/uL 3.8-11.6 [facility] Lipid Panelon 02-02-2023 Cholesterol [Mass/Vol] 170 mg/dL Normal 140-200 [facility] Comment on above: Result Comment: Chol less than 200 mg/dl low risk Chol 201-239 mg/dl borderline risk Chol 240 mg/dl and greater high risk Performed By: #### L IPID, BMP, CBC #### [facility] [address] Cholesterol in HDL [Mass/Vol] 56 mg/dL Normal 23-92 [facility] Comment on above: Result Comment: HDL CHOL ATP-III CLASSIFICATION Cardiovascular Risk HDL > or equal to 60 mg/dL LOW HDL < 40 mg/dL HIGH Performed By: #### L IPID, BMP, CBC #### [facility] [address] Cholesterol.total/Cho lesterol in HDL [Mass ratio] 3.0 {ratio} Normal <5.0 [facility] Comment on above: Result Comment: PERF ORMED BY: [place] [address] PATHOLOGIST [employer] LO[employer] COLLECTIONS SUPERVISOR RENAN CAIN M.D. Performed By: #### L IPID, BMP, CBC #### [address] LDL Cholesterol,Calculate d 89 mg/dL Normal 0-100 [facility] Comment on above: Result Comment: LDL ATP III CLASSIFICATION LDL less than 100 mg/dL Optimal LDL 100-129 mg/dL Near or above optimal LDL 130-159 mg/dL Borderline high LDL 160-189 mg/dL High LDL greater than 189 mg/dL Very high Performed By: #### L IPID, BMP, CBC #### [facility] [address] Triglyceride w/Reflex 127 mg/dL Normal 0-149 [facility] Comment on above: Result Comment: TRIG ATP III CLASSIFICATION TRIG less than 150 mg/dL Normal TRIG 150-199 mg/dL Borderline high TRIG 200-500 mg/dL High TRIG greater than 500 mg/dL Very high Standard traceable to the Center for Disease Conrtrol and Prevention (CDC) test method. Performed By: #### L IPID, BMP, CBC #### [facility] [address] VLDL CHOLESTEROL 25 mg/dL Normal [facility] Comment on above: Performed By: #### L IPID, BMP, CBC #### [facility] [address] Lymphocytes Auto (Bld) [#/Vo l]Ordered By: Nick Wasserman on 02-02-2023 Lymphocytes (Bld) [#/Vol] 1.4 10*3/uL 1.00-4.8 [facility] Lymphocytes/100 WBC Auto (Bl d)Ordered By: Nick Wasserman on 02-02-2023 Lymphocytes/100 WBC (Bld) 16.6 % . [facility] MCH Auto (RBC) [Entitic mass ]Ordered By: Nick Wasserman on 02-02-2023 MCH (RBC) [Entitic mass] 30.9 pg 24.7-34.3 [facility] MCHC Auto (RBC) [Mass/Vol]Or dered By: Nick Wasserman on 02-02-2023 MCHC (RBC) [Mass/Vol] 33.6 g/dL 32.0-35.0 [facility] MCV Auto (RBC) [Entitic vol] Ordered By: Nick Wasserman on 02-02-2023 MCV (RBC) [Entitic vol] 91.8 fL 80-100 [facility] Monocytes Auto (Bld) [#/Vol] Ordered By: Nick Wasserman on 02-02-2023 Monocytes (Bld) [#/Vol] 0.8 10*3/uL 0.0-0.8 [facility] Monocytes/100 WBC Auto (Bld) Ordered By: Nick Wasserman on 02-02-2023 Monocytes/100 WBC (Bld) 9.0 % . [facility] Neutrophils Auto (Bld) [#/Vo l]Ordered By: Nick Wasserman on 02-02-2023 Neutrophils (Bld) [#/Vol] 6.1 10*3/uL 1.8-7.7 [facility] Neutrophils/100 WBC Auto (Bl d)Ordered By: Nick Wasserman on 02-02-2023 Neutrophils/100 WBC (Bld) 70.6 % . [facility] No Panel InformationOrdered By: Nick Wasserman on 02-02-2023 Estimated GFR (CKD-EPI) 40.085 mL/Min [facility] Creatinine Clearance (Chem N/A [facility] Nucleated erythrocytes [Pres ence] in Blood by Automated countOrdered By: Nick Wasserman on 02-02-2023 Nucleated RBC Auto Ql (Bld) 0.0 /100{WBC} 0-0.5 [facility] Platelet mean volume Auto (B ld) [Entitic vol]Ordered By: Nick Wasserman on 02-02-2023 Platelet mean volume (Bld) [Entitic vol] 8.2 fL 6.3-10.7 [facility] Platelets Auto (Bld) [#/Vol] Ordered By: Nick Wasserman on 02-02-2023 Platelets (Bld) [#/Vol] 296 10*3/uL 150-450 [facility] Potassium [Moles/volume] in Serum or PlasmaOrdered By: Nick Wasserman on 02-02-2023 Potassium [Moles/Vol] 4.4 mmol/L 3.5-5.1 [facility] RBC Auto (Bld) [#/Vol]Ordere d By: Nick Wasserman on 02-02-2023 RBC (Bld) [#/Vol] 4.07 10*6/uL 3.60-5.00 [facility] Serum or plasma anion gap de terminationOrdered By: Nick Wasserman on 02-02-2023 Anion gap [Moles/Vol] 11.0 mmol/L 6.0-15.0 [facility] Serum or plasma high density lipoprotein (HDL) cholesterol measurementOrdered By: Nick Wasserman on 02-02-2023 Cholesterol in HDL [Mass/Vol] 56 mg/dL 23-92 [facility] Comment on above: HDL CHOL ATP-III CLA SSIFICATION Cardiovascular RiskHDL > or equal to 60 mg/dL LOWHDL < 40 mg/dL HIGH Serum or plasma total choles terol/high density lipoprotein (HDL) cholesterol mass ratOrdered By: Nick Wasserman on 02-02-2023 Cholesterol.total/Cho lesterol in HDL [Mass ratio] 3.0 {ratio} <5.0 [facility] Sodium [Moles/volume] in Ser um or PlasmaOrdered By: Nick Wasserman on 02-02-2023 Sodium [Moles/Vol] 140 mmol/L 136-145 [facility] Triglyceride [Mass/volume] i n Serum or PlasmaOrdered By: Nick Wasserman on 02-02-2023 Triglyceride [Mass/Vol] 127 mg/dL 0-149 [facility] Comment on above: TRIG ATP III CLASSIF ICATIONTRIG less than 150 mg/dL NormalTRIG 150-199 mg/dL Borderline highTRIG 200-500 mg/dL High TRIG greater than 500 mg/dL Very highStandard traceable to the Center for Disease Conrtrol and Prevention (CDC) test method. Urea nitrogen [Mass/volume] in Serum or PlasmaOrdered By: Nick Wasserman on 02-02-2023 Urea nitrogen [Mass/Vol] 23 mg/dL 7-25 [facility] WBC Auto (Bld) [#/Vol]Ordere d By: Nick Wasserman on 02-02-2023 WBC (Bld) [#/Vol] 8.6 10*3/uL 3.8-11.6 [facility] Coding Summary.on 03-11-2022 Coding Summary. [id number] Gh0bWw +PGhlYWQ+EJ0RPOQxE51btBAou Z6SE1cOIM5RXQCHBXQTEZ1TBF2 arZX0XLuzE1TiqlXk CntwmSXpKH31HNg7SSH3qXvyIU pghQ3dnOEeM8q7JyFsBH52cD40 QMuuSPHnSeX1JgSppeqiyGNz J6gqXaHivQLaYnd+PHRhYmxlIH ymDZJwREdkBEUhHdXeoPbyMR8a Vt8nTZAqTBRnuTtrnOUcEeEa z2ajOSMbTKqpDB4xnIemQ7IadP F1IQSlh5l5Ij87gTS+PHRkIHN0 sKrhADafd079PpFgi4bkWVM5 eLWlFJtuQIN1Y42ev0D6XWKcGN XsPVN3vLY9kI4laEqfopfkW5Nc wJJgBfJ7YDL8bKGjjI5ekYqc aiynkJ9gTsd+Z80EDV7NJMYIZZ 5JHog0N9QkFtbdhTE+VQ99YMOw RU00hHRdrLVli5amhDa7UyEd POErGGB2rAdnRFxac0CzUICmX4 3jkFUni2U8TCTduKonsJViEsOa kKF1nC4bCZjimvqso4ncalki Fstzt9keom42eL93O77oVNcbXX WtTUI8VJHoBAOpsJjhkm0nrH2z Ii8+OObfr8foz5bxtNy1EqLl ABOjplTssTgwXVC7j7FjKo18F9 MavUeay8UcIrx3rw98fVBqu2L3 gQU8WDtmIDRsnD4gKHszZjV0 BIHlFuZqrW40uMVsDJzwBa4bpD xvdLtbVP3zSAThetjnIONocE9e XDPepQPtaNweTV5jXHXslvjb k073FrPdYHS9XBUsqRYqZ9LzkX 1pLjBcFGRpHWGfB3EcmXRxWVnr G032KMsrEjO7PNNozsFuQ5Ui JVLbmDwbJfE7f8T6Gy0Ku4Wxvt yzPMZ6AQtcAUIiGzA4ExJpHsC4 A8JxWbe6MGDcsTyjGU6kN5Fb INAcflcvkedpxIT7BPMrMFXlrG 34fGVjHBzyCk3ig5F5a252EPIo GDMohX84Zf0ftCbyQEOgvYEQ dT5zfmflk9ekhdahCyUpKFFqJD w6QKq8ISXzzMgtEpXgYZZ1AqG7 SVD2yBHzcZ7xuCcmhlmgeY0g Oyc+U66lbT1fBRX2IQR6cqccXU OlvrDxSY78WY56I8EkKqmeeYRc bGU+NJLgsiUhjYnrGR1zHzXe f2exw7KzFMygL9FrSHVnLPmjWn s6LOMrFCY4gRK6wZ8gRCSoHKsg h7R7bHZ2W2AyiqKruu9sb3mr NJIuYBdjE27glNVfz8X7JEZnsB A9GKIysKllCnDopF36Lte+PGNv vFwcd7LsZbhxp8tzj7eiyRa0 NlPbJQYhszVliEryOJF3t1JiPg 96G22dRSpvQONxKBLnVUAqTOWn tBnlqf3rgV0kEc6+PGNvbCB3 tNE0gB9vXQSzZnF4UBmiV637Av QtrSHqPjjws2nlf9ljfMu4FuRx GEDysjUarMfjNOF6b2IrVz38 G64nXIhfOHVjDCOeLXGkVVBvpT imic6oxH9rAs2+IV1qj3tuhk74 mO59rGR+VQBcSBC4tUyjAAse HZHphT9eDZruQnE3TNPuYaAbgT 15gLZlFVurEh5poVghnAqbYK7u RMDpmwqug188CvBnw8ecVBLy pQGnMPxzBQV6K36vj3G0BCKcAA JxHZG4xMW7sN5jdCjirxplfQWm uZnitaSfnCqhTSjkNRngI524 IHRvcDsnPlBhdGllbnQgTmFtZT s3J4TkZbw3KSWshLxzBQ6feTBq CAanWu2miKyzmIqdIH2pTHTl wetlx571IfStw7ggTSAmsSJsTX ctBGZ2F69xr6O6VZUlDUQoZFA1 kFL6vH5aeXtehovpkPIxqKfw knRamUpeSHhlCWjhC600HPIdiO pkYxArprXzMMIwqTU2DK89GQ29 eVEkw4E7cHZ1V7CrCUVtplnw zawvxDK1QBVqNUWakD65Df9faD pjGx4kJDVqXGO3TLRclQOxK8Cc uQ0dMmOwILZxRLWxG3VkkBXx UTiuD948RAggSkS1WAUkklLwR2 TkLTRksXgqYwH0w5U8Bj8SH2S7 UP24ON70bSOmw6P3vQD5E6Hq GTVnlnkyvuvljVN4IDNiZYTjmL 17Tv0ceLnhKk9rQUJzKRL6RUDc bRKyA1YbbG3vBlOcTCLjTUAv Y3EekXSxYJcdZ376BQglNqQ8FO HfdyOyB6GbFJFkiPqtRcD2q8Q3 Ch2UKPz9PO05ZV42xJLqi0C3 xJA4V0RcJYXltfwkdaogqTW3XB HrADBoqI04Cj4hlNmzOu6zSQVg PYG1RZDtyPZfL9VwvX8oBzGj ZOZoOWVsG9RcyQFmXCitN601MN ldBnX7KSNjayPsE4ThBIYgrOfw VjF5m0L4Gd0RBFWmZJ11ROQ9 pOR2YH74CG63E0YvRhztgDMytF U+PHRhYmxlIHdpZHRoPScxMDAl ThYpeGgrVH0qLh2xCKLdBEIi oNoaaYUpIqJvm0ncSLSjUFjvSI 7jxVtoQ3ZvgBD5AHBlb1p1Xr55 T30wH1BvkSI+ECSijJL5tHR7 kM0yKbFaXtU9INfmX624NcKvqB MiUzlmw8htf8njqKs2RzY0CNOe jnPpyKmnGTB9v6FsYu06K19j IHdpZHRoPSIxNSUiIHZhbGlnbj 3vnD0cDx6+BWSdoRD1nRT9aN2r RdFzEyI3TQjcK206LmMsrITh Fyigc4urw3nosMb7LfSwFCYepj MpgPqeVVT7t5McZe84L7ZniPja f4LdQif7wm46zQJuh3S2sDU1 K2VcOMWwzndiuHFlvAmrJC0rFG PzfohtTNOzuI3lFWKgK9u6BoNg ZoP8LCpgO2NxlvT9DUMlyMCu ZFfqFZH7S07hd7R2FQAqNNFfVB D8lQQ4xE6xsWevcerrjAAwwYzj vsRujLefLZxsRHfoF769YILg fByjAEOnzW9gLHVaxHCybAlzQY 2dQONtnibnIhPLC8FIP2ZkRYGE XEIUS6pFLY95RM99lEOnc6D2 hGH3X8ZeJTWniddptiaqfQS4BC EgZSMjdZ95yJIpIIxsQb6kz1G3 w426ZTEuOJAvzQ83Ft7nqQib TMCzmAJEmO2umqphp6ztogllXl VyYSBsZQx2BOa6WYOkfNxeHrUm WDR0EgD0NQD3wSKufD2nkVly dsfozC9oAme+FCJcBRNfBLx8Mh wvdGQ+MODkVWE1mEujOSbrFOAd tK4dYFHsH9c7BsCyBwG8JYyv G6HvSAMouxhvPt08vO6tGrImKm C5JNxdL1ErsoS7LPFmlYMiBPzo CUK4E01ll2R7XEXiBLOwDCH7 uSM2vV8heOmywpqatLZmlEpjri BgrAowVYxcLBpnG599QGQghMep Tps7KRecHTJkPZ15DD68rFBc o1R2pWI7B5GrDKThjgzpomxyuS O7GETmBZVklS39yMPhHQubNg3u m7O5z530GOExWMBmqW38Qh9k aZazEFIcpYTGpZ7qfifdg7xwfh krJtZuIYEvARc3QNn5GIZrtQrq XzClUGQ3GpY1UMI4bKWgdB5x sOpmnaqkdS4fFwb+RmVtYWxlPC 06FX54oICqy9P6cRD2C7YbBTCk dugtdzlmnOT3SNBtCNUbbO55 eXHgUTrlDq9vr7L6y255VCDfON SjgJ57Ys2luLsbWZAotTRNpU7q etcnf4vrovfsCkBvVSLvWBc5 OKy3OFQsxAbsCsJjQAF4JdL0WU V8fGXdqT0zqXveiyuraV0hMyq+ F7PjKII0FOEck375V6OsYgwd dHI+PN81ZKBvVK53tBAykSXqe2 lwuMd9VoOdXRHoJVD3fXbdTZdf a0CqODFkS10mzRLsg0X0FEDw gDdvlRYlObKlbOF9bO9uHQzscy zyo5ejktmfBucfh4rtum32xP81 Q62fJExcHNOfFJFpZEAaOPUp zFzral0afP0aBz0+ZKCbuSO5vC J8rT2dVpLtCcJ9GNjiY109FoVy qNGeZmymh6vmf1hadFm9UtZg UPMdevRsaCshDVB6x7HeWr96M0 9sIHdpZHRoPSIyMCUiIHZhbGln kf2rtQ0sGb6+FN5sb4aixn44 dD33bRU+AFYfTKW8uCtdBXyrMH DddR6zHZzgOuZ0HIHdCjYqlD84 bNXdTQfpOi9iiQjfyFcoXI9t PMAnllhic311EvIkj8ykOKLvkD FjJDryKDI0O13id7W7VAYtASQf BVD2sME6gK9kmXjetbdkiPKi sIoymhMeuMemPKijIFrcT173CC ZwyBzmFiYvkGPbP4imypLOCC4w OjwvdGQ+YZRbKNO5gJxxSTcj LSBpbH2yTQYsE9k2YdOyLzZ2JH ppU9OrbnS0CYJjmKHlKECzfPGV zR9qndhch7vmjotrBkTpNFTz GJg9BYw6VLLjaYbcMuNwZHZ0Fu Y8CLF2bMZpjO5vbOhmrxcydN1q Oyc+RklOOjwvdGQ+PHRkIHN0 aPfvTXpoFKGccC7oBOBbI0k3Gm FqPvF6DOwiD6KyckG3HSKgwOVk GIPvxDSDuF7lqmzju4yukfms IpKaRCXhIDh5SKu9JQUvjVrsKg InDVK0EjN5UCV9dXRonP1mcWcc ftfqvD5lOns+TVJOOjwvdGQ+ GCRxPKV7aPlrSAaeYUUtpX1rHW XuB7f4PlWnCpA0DQgpL1WonuZ2 DIZnsOGeOHWorDLNsP1bigxs n8owafzpQdQtKMPkKAa4RFb2GZ VueCheNvRaQAN3HyI5HXZ2vSGt aA6yrEmwsueqyY7qRfw+UGF5 KAR5YE22CX84J2VtEzltmYYgsB U+PHRhYmxlIHdpZHRoPScxMDAl OePycBypKD0oIe3mSULxIBRn bGxh (more content not included)... Normal [facility] Office Visit (Cardiology)on 03-06-2022 Follow-up visit [...] complaint. Vitals Vital Signs Recorded: 06Mar2022 03:48PMRecorded: 87Hxg7684 03:25PM Xqxufgqv080, LUE, Mqkeskk934, LUE, Sitting Vbuqhtfzm91, LUE, Hkbsyax83, LUE, Sitting Heart Rate66, L Radial Height4 ft 9 in Gxcyqb742 lb BMI Tpeblmhdbf60.37 kg/m2 BSA Calculated1.38 Tobacco Useb) No Falls [...] Mar 06 2022 4:39PM EST (Author) Normal [facility] Tobacco Screening.on 022 Fall risk assessment a) No falls within the last year -[facility] y 250 DO Work Phone: Tobacco use status CP b) No -[facility] y 250 DO Work Phone: IntraOperative Documentson 1 05-04-2021 IntraOperative Documents [id number]:127 Normal [facility] General Surgery Office/Clini c Noteon 03-03-2022 [...] Michelle to record this visit. ANA M forest fire prevention specialist and provider reviewed before signing. ANA [...] list Allergies Percocet (Nausea) Darvocet-N 100 (vomiting) Newport (Vomiting) oxyCODONE (Vo (more content not included)... [facility] Comment on above: Result Comment: Elec [...] Locations R1: This test was performed at: [facility], [address] [place] [address], [address]- , , [facility] Comment on above: Performed By: #### 2 [id number], [id number] #### [facility] [address] [place] [address] Coding Summary.on 02-25-2022 Coding Summary. CD:[id number] Gh0bWw +PGhlYWQ+AV0BNNKaI17ijFUus R4QI8zKHB2HVPBTIUXCOJ0YMB8 yrNT2GNfuI8HpzaGb TglykAVfSA08BCw6SFQ0cEybZZ ujmO9dwCPhG0j1VjZnNF35jP39 KQvkPGWxNhY7SeIluubwhMAs P6lwOdGjzGThWyr+PHRhYmxlIH vwOWTbYVzmTEBsVkLzzKfkPC4u Xe6gTKJtSCIovDokrKAyOzAi s0jhOUKoRJpxWM5tlHugS7CclH R2KCPru8i5Ut81iYF+PHRkIHN0 kLgcWMxng999UtKmt8xeSQH5 vBHtVEofBGP7I26nw5E8FKZiJL IeJWZ9qXP2oE0qiWjsaosiO1Qd lKOxCqX9BZH8fCFpmQ7oxJzv nuvrcC8qLmx+E39WRL9QYNAYOS 5HSig3Q2KbNkkeyJZ+EF62KERl KY26mUDbfIHtp2unlKx7SlHx HKAuCCN5bHlxVBscz6AjNJYkJ6 9lzOZqy4B4KFPrnPkbaZOfGoVz vOK4pC9uWTjzahxst6xzpsbr Gqgfl0phee52bL85B10jVBfvXL XuGDU1QMSdOWRfcLwfoi0kvA4m Ii8+RDdnl4tin0bodWr6OmMf DEZmfhDoeIgrMBP4l6QoGp51H8 HbwCrmn9XdSpi0bh37tAXnj3Q9 mGZ8KYdoNRJqhM1jAYndZcH6 JBNgMsRvbF07bAUwMJajLx5lfQ snqXgpBE3zICWxvkomNEByjF4o PDJxeKLteGumHS7nFGUrrwut u311SuHgIHB4SSWykLElF4PxdU 3xVqRdHTPaTHOhF9BrzCReFPuo Z358ACzvEpG0DJGszqLgB5Wd QEOrcJlvEnV2d0Q0Lz7Vq4Etxp jtSHI4CQbbSNHnEhXiNoQlJiY1 R7DiFze4PNHtgDfmCP9xW9Mg HJDpfqxxmgtgsLQ1MZHoQVRdkF 35jOOrRJgeNu5ev9U2z201CWZt MVDoxH81Sm4xsZdnVDOziLGF vH3qeucqj3ncwwxqSvNxJPRdBU m0VKx1FYNcpTeoMiAlWPN6ZnC3 TIF3uJFkjZ3mqPyccmfjuK0m Oyc+B00kuB7rIEW5DHD1uqvlXZ ThbnBqKD33VA13B5OkEmnamXGc bGU+VREqhkStgYdlNG8iCdNl f7uwc5YvYNpxD9QnOOJgRGpzWb h8HFQaMNB3wLZ1uG1eZDWuHCwz o5S1vDH3D4TsljHbub7lf1kc AEPmPCmvN57ztIWnh7B8NISsbT F3LUAsbGgsKuMetZ87Nox+PGNv uFfww1VfMaqvo8pfm5xpoHu1 OtUgZRVbvgMpfSpqGYB6o5KyVa 80G68jXNhyQOTuJKNyNWJfQTLd nRhdbi4xvX2sYy7+PGNvbCB3 oFZ0lH3pFUOoOoT9NHuuC892Mg MhcSKsFyumb2jbz0zigUx5KaVz QPKidzAtuSecULP2i1NrWb02 A80gBWyqGZZuCVKvDHDfLTGzeD qriy4jiH9pDh0+JV6xv7xzyv47 dH72yJR+FPEgDBX6hAjuJMlj DCPytV9fTWgoQcX8HKQaXmXgmZ 37kKHmQVfiAl4pbLyunYnyNB5z ZQVpjewoj224HtBkz4ndPGAd vDWrOBfxMUT1C66ss1U6EIUpVA LbLGH9fAC6hZ9qrXtcqqcknMPl zTyzfcAtyRscWEarOYaxL990 IHRvcDsnPlBhdGllbnQgTmFtZT y8F2HgDqg8HUVjgDqkZU1pwFUx IEkjPf0jhZlipHosXU9pAOSp bvicr075FlIme3zeRRJacPMuHT pzAKO1N46gd4S9IKYhZGAzSTT4 qTI8lS5ixJiwzmmmpRXnzDlz flSzlCyiEOnpJXrrR503BPFmoY umAfTxykFzVILtkVN4NF15RS96 xMUbo4L0hUV2N5RiIKHjsqyd mfdkoYE7GNRfRNJshU90Bo7epM rqNr9aSVXnDGA7GBCzlIMgX2Xc nW1kJfExAGWpFJMvF0KzeRBo XZgdO806KWwrSnC1EYEoraWkJ0 EbVGXelQmjXxA8k8H9Rw4NT9A6 OT91FJ11hKZzn1F1oGS2R7Kw TIArhalhqqexbAX9PRSnLRGgmQ 55Od5cpRjhOs9eNDZzWAU5ZRBa fOMgM0TraM5uEfOcJGLvPMAt G6QmpETwBCtyT989PEkdViZ1SB VttxIsQ3DyOVItkPuzDtR7j0J4 Pb1IKMn6JG35VW91gWOtv0R7 kVM6V5CgGFUuirfweffgzYI2XL MpDIQysI06Dd7zxRfwWr3yAPQq AJF5HAYllXRwK3SpyR9fUgZv QYWsGTQgN5DvgQJtRLdsB118NR dlZwD9CEHmwnMjF6IzBSWfxTnf AcN1p3D9Ty8YBHNqBO97MIQ4 nON9YS93FB30E9RvGuckbDDorP U+PHRhYmxlIHdpZHRoPScxMDAl VgVsyDuhWU7hHx9aATQrCFQd eKapcBCjFjPmx8ybWNVuLTquVB 4ehEpmV4QfsXW4XJJxv8h2Kh80 S99nN8KcwQV+AVFfuZW4lNQ1 yG4bMeCkEiD1ZUabT941VqJcnE BlVxory3cbo8eabJn2VbR8KARg ttUbtYkrPIJ9q2GqSd72Y94z IHdpZHRoPSIxNSUiIHZhbGlnbj 8qxY8xTb2+FJIgbOJ8mAZ1yL2c EqYaJpW8FTfdF869DxJtfEUu Tkznk6qyr3tbeRy7SuLnDHRrhz ZypCkuPCE4l3MfCx75A3MfkQeo r5UzPkw3gi34nYYxa8T6nTW9 S4KjAPGjdfayuVYzqHtnEP8pVQ BeysgnEUXwzN8oKZZsU8m8OmAz KmK5JWtsG3LxtwP8ZZGxnOUo ZUdaCOO6W46uf1I7PGXaGVCyBH W5hKV0oQ7hxFqfkkxbuWZtxNsd ztLfsRqfXSrmFUejT255LYGy kQkhKWNbvH7wHMJapMCbiSwpCM 7mFWHycofgOqOPD1WWC2AzDXOJ WDXSD8vJID96MS07iRFbj8J3 nEF0J5IsQZPbjrllfcmbdPP3ZW QoEEChzG06vBTpFWzhPd1bw3N4 d405KMYdZYFneZ00Yz3zzFxq EYTzuVEOzK1mrputx3rnfncnIn BfTVCpYYo8KZt7DOSwkHvsYlSd VIA9OzG3OWF6nGGsaV8gcTim sripdL1uTiu+JQOiZZIaDIa1Nv wvdGQ+JKBwHUR4qGybLWifPEWd wT9gCKRhM4q8DdBfFrI2GRtz B5UlTLWllmiaWy55sU2uQqRlGf Y7JMybL2OcjtG6JNEtzCLpUBun PML6O29gg2I8OUNfTCTlLOR6 jGY9tU2ayPgkpumgqLYudIbtov AwuCewAIbkMDmhF996UUTmuZkd Znf1CGrsKAEmUA75DD35nLXc a1W8jMM1S6IrBXAmcillcuoccO C2PFSkBINjbN65aMQrZGdkTx6o w7G6c293WPIcNFSckV14Lu4o jZuxOORvaKRBmS7jhimev9wjor flPlSyZQKzIIl9PWz4EAAvuRxx AoOwWKT1PeT0DMF2oJQpoK7k yBipsyyrbR2lPtx+RmVtYWxlPC 42ZA89kCYjf2B3oEG7R1UxFSPo pufscivhrFF3MMKnJQPklC68 kMRxCJraSn8sk0O6z374QBHjPH HxhV55Ja6kkOfbSIWubYOIvT2q fkuvp7mpcrgyGjVyIIFbMDk5 RXb5VYSfwSvzHqRlLIL6EbM1QO T6rTUnqZ0jgLzgcwqjkV1tJsw+ JY7zgRqqkC7qbY7BHO6xEZYn tMZIzOHtMIS0UN27NE82M7SsWh wvdGFibGU+PHRhYmxlIHdpZHRo FLdnQQJrEhYenZfmPT8iGq5g YITkYYUwjQzhyORlUmDjb5xfKH QhHMcvUU0qfPvoH8XtbEI5IBId a9g1Yp28B71qC5HvjVK+PGNv nYJ7tGX7pQ1oGqMtBvE6QTaaL2 17ZwMwvFEaNwfxb8ajv9teuMz8 MwTwTHVyjlWmnUoaSEG6d5Qm Lu89Y42vJRuhWQWeBCLlSBCvZI EesCbxsh1esX5oDx3+PGNvbCB3 rOO1qC1aDnQsWpT6KFhrI300 LlCmfWOmNyzbA68sZ3PgsRT+PH GnRsu7UGMsjSgyKV6goKJpJBeh Eb8yIWR8WbKqMdCdUMqwY5Mv DEUwxdfycjcwoAE7QHBvZQPltO 92Ly3gzVdtMy4tEVNoUYA3PWMu kATxO9RmzO5oRkHmTRXgXHJa W5TxnUFtTDbdP994UNhgSsD8EK CdwdWuE2YqLBLxsLugDlP6p9P3 Po9BaRwmqPHaYU3fRkHbXVx1 M8NxUok4WOYfqVgjLF8msGKsQD hzHe5mdNkncYvxTR1vUHVucmow v034VsItg7acPRDpkJDkWDor OUV2K76ee0A0OEImFQPhLOD3pM P4bS2ohOirngkyiCWrfOijlqZa hOweSQxsJAreY502AUCcxLpc SdGBMux2S2VzDvr1XKQcpPoxDA 9zcPNmDYvoBw9iySvrmYlkQT1g COAykbqvg522TnRxf2tyVXHm uSWbGRwgPDW2F06fv2Y5THKuMT LgIPA5dXR4xU1tsAkeusgjlGAa bEalhuLfdNkaILrgECzqT441 FXVpiGlfJh2DRwu5J4DxGyo5XO FonPyiHE8jsGCtPDwtHt4dfXtr nIbyOU6sEWOjpalsn580NvAq x8mrQJIdwXXdTOwuMWR0W87ri3 B6LXJiCLPpECW4xBX7iB1goUdy bjogbGVmdDsgdmVydGljYWwt ERjuC738GJKzzGwgSdMmkOMcMe wvdGQ+MP77io89I6TuReynOfa7 OLSoZVR0rIN2mA6uYRGsJMed c3R5 (more content not included)... Normal [facility] Consultation Noteon 02-26-20 Consultation Note Patient: [...] NO WORK UP NEEDED Normal [facility] Comment on above: Result Comment: Elec tronically Signed By: Nick Wasserman MD\.br\Date and Time Signed: 02/25/22 14:40 EST Discharge Instructionson Discharge Instructions [id number]#[id number]:[address] [facility] Inpatient Clinical Summaryon 02-25-2022 Inpatient Clinical Summary [place] [id number] Clinical Summary Person Information: Name: ADINA PERRY Age: 81 Years : 1940 Sex: Female PCP: ADRIANA CRUZ DO Marital Status: Race: White Ethnicity: Non- or Language: Mozambican Visit Id: Visit Reason: Fatigue; Post surgical problem; ABD PAIN, ABNORMAL CARDIAC ENZYME LEVEL Speciality: Acuity: Enc Type: Observation Med Service: Medical Arrival: 02/24/2022 13:07:19 Discharge: Dispo Type: Admitted as IP to this Hosp Address: [address] [place] [address] [address] [place] [id number] Provider Notes: Diagnosis: 1:Abdominal pain; 2:S/P hernia [...] Percocet (Nausea) Darvocet-N 100 (vomiting) oxyCODONE (Vomiting) Newport (Vomiting) Measurements: Height: 146 cm Weight: 49.7 [...] Care Team Members: Attending Physician: MELI ERIC, [facility] Consulting Physician: Jay Power MD, MD, Mourhaf Referring Physician: Follow up: With: Address: When: ADRIANA CRUZ [address] [place] [address], [address] [place] [address] [facility] (1) 03/10/2022 11:00 AM Comments: Appointment will be with the PILOT TEACHER With: Address: When: Jay Power 03/03/2022 9:00 AM Comments: Call for followup appointment 2-3 weeks or if already scheduled keep appt. Type Location Start Finish [facility] Post Op 15 [facility] 03/03/2022 9:00 AM 03/03/2022 9:20 AM Confirmed Patient Education Information: Weakness; Abdominal Pain, Adult, Ccwx-qm-Suro Normal [place] [facility] Inpatient Patient Summaryon 02-25-2022 Inpatient Patient [...] Test Results None Pharmacy Information [facility] Previously Scheduled Follow-Up Appointments Thursday 9:00 AM EST With: Jannet ERIC, Jay Lock Where: [facility] General Surgery [place] Normal [facility] Inpatient Patient Summary ADINA PERRY :1940 [...] Test Results None Pharmacy Information [facility] Previously Scheduled Follow-Up Appointments Thursday 9:00 AM EST With: Jannet ERIC, Jay Lock Where: [facility] General Surgery [facility] Inpatient Patient Summary [address] [address] Patient Discharge Instructions PERSON INFORMATION Name: ADINA [...] Follow up: With: Address: When: ADRIANA CRUZ [address] [place] [address], [facility] [address] [place] [address] Business (1) 03/10/2022 11:00 AM Comments: Appointment will be with the PILOT TEACHER With: Address: When: Jay Power 03/03/2022 9:00 AM Comments: Call for followup appointment 2-3 weeks or if already scheduled keep appt. In the event that this physician does not participate in your insurance network, please consult with your insurance company to find a nearby participating provider. Type Location Start [facility] Post Op 15 [facility] 03/03/2022 [...] [facility] every day. Pharmacy Information: [email or web address] Pulliam Comment: PATIENT EDUCATION INFORMATION Instructions: [...] (more content not included)... Normal [facility] Interdisciplinary Note - Reji e Manageron 02-25-2022 Interdisciplinary Note - Full Service Supervisor CRM to room to discuss DC planning. [...] DC later today or 02/26. CRM following [facility] Comment on above: Result Comment: Elec [...] home safely and independently once medically stable. [facility] Main OR Intraoperative Recor don 02-25-2022 Main OR Intraoperative Record Normal [facility] Monitor Recordon 02-25-2022 Monitor Record [id number]:[address] [facility] Monitor Record [id number]#1.00CD:127 [facility] Postoperative Documentson Postoperative Documents [id number]#[id number]:127 [facility] Troponin 9 Hr.on 02-25-2022 Troponin I.cardiac [Mass/Vol] 90.10 pg/mL Abnormal 10.10-27.[address] [facility] Comment on above: Result Comment: Crit [...] Olivia, November 2017) Performed By: #### 1 [id number] #### [facility] [address] [place] [address] Auto Diffon 02-24-2022 Basophils/100 WBC (Bld) 2.8 % High 0.0-2.[address] [facility] Comment on above: Order Comment: Order Added by Discern Expert. Performed By: #### 1 9879081, 2173288, 7179914, 0899714, 97038117, 5818867, 9364203, 0592443 ####[facility] [address] [place] [address] Basophils/Leukocytes Auto (Bld) [Pure # fraction] 0.2 E9/L Normal 0.0-0.[address] [facility] Comment on above: Order Comment: Order Added by Discern Expert. Performed By: #### 1 3402632, 2267703, 9711927, 2488890, 82172162, 3746286, 9120349, 9999320 ####[facility] [address] [place] [address] Eosinophils/100 WBC (Bld) 3.6 % Normal 0.0-8.[address] [facility] Comment on above: Order Comment: Order Added by Discern Expert. Performed By: #### 1 2616074, 0058336, 1719595, 6748025, 35091638, 4806272, 7626395, 5028808 ####[facility] [address] [place] [address] Eosinophils/Leukocyte s Auto (Bld) [Pure # fraction] 0.3 E9/L Normal 0.0-0.[address] [facility] Comment on above: Order Comment: Order Added by Ramírez Expert. Performed By: #### 1 3219684, 8983935, 7077164, 4627436, 28723224, 1873400, 0539767, 6763890 ####[facility] [address] [place] [address] Lymphocytes/100 WBC (Bld) 12.3 % Low 14.0-50.[address] [facility] Comment on above: Order Comment: Order Added by Discern Expert. Performed By: #### 1 4307746, 3045358, 4498229, 4694201, 49160310, 4281625, 0629222, 6822791 ####[place] [address] [place] [address] Lymphocytes/Leukocyte s Auto (Bld) [Pure # fraction] 1.0 E9/L Normal 1.0-4.[address] [facility] Comment on above: Order Comment: Order Added by Ramírez Expert. Performed By: #### 1 3720062, 6946208, 9419485, 8458183, 03647522, 7533515, 1045317, 1965866 ####[place] [address] [place] [address] Monocytes/100 WBC (Bld) 7.4 % Normal 4.0-14.[address] [facility] Comment on above: Order Comment: Order Added by Ramírez Expert. Performed By: #### 1 4049066, 0983540, 7970819, 0453643, 92774706, 0276571, 8778764, 7157589 ####[place] [address] [place] [address] Monocytes/Leukocytes Auto (Bld) [Pure # fraction] 0.6 E9/L Normal 0.2-1.[address] [facility] Comment on above: Order Comment: Order Added by Ramírez Expert. Performed By: #### 1 7479387, 5050481, 6256721, 7965852, 66541094, 0600533, 9976426, 1187224 ####[address] [address] Neutrophils/100 WBC (Bld) 73.9 % Normal 36.0-75.[address] [facility] Comment on above: Order Comment: Order Added by Discern Expert. Performed By: #### 1 3166188, 5274703, 3576780, 9421143, 01756634, 8436275, 2801613, 0678036 ####[facility] [address] [place] [address] Neutrophils/Leukocyte s Auto (Bld) [Pure # fraction] 6.2 E9/L Normal 2.0-7.[address] [facility] Comment on above: Order Comment: Order Added by Discern Expert. Performed By: #### 1 2900831, 6126864, 9865402, 9642761, 73751820, 4694689, 2683718, 6380958 ####[facility] [address] [place] [address] BMPon 02-24-2022 Creatinine [Mass/Vol] 1.1 mg/dL Normal 0.5-1.3 [facility] Comment on above: Performed By: #### 1 9651894, 1520175, 8338485, 5035154, 17394909, 3329328, 9952797, 6937524 ####[facility] [address] [place] [address] Urea nitrogen [Mass/Vol] 18 mg/dL Normal -[address] [facility] Comment on above: Performed By: #### 1 7915788, 5578905, 7010477, 7138376, 74847577, 2942701, 8529534, 0373582 ####[facility] [address] [place] [address] Urea nitrogen/Creatinine [Mass ratio] 16 No Units Normal 10-[address] [facility] Comment on above: Performed By: #### 1 6796422, 3758737, 4361155, 6555158, 18579670, 7964451, 8679614, 5039981 ####[facility] [address] [place] [address] Anion gap [Moles/Vol] 16 mmol/L Normal 6-16 [facility] Comment on above: Performed By: #### 1 4529385, 6434637, 7716536, 4113750, 94385773, 0057579, 7813547, 0842148 ####[facility] [address] [place] [address] Calcium [Mass/Vol] 10.5 mg/dL Normal 8.9-11.[address] [facility] Comment on above: Performed By: #### 1 1235092, 7594790, 1601564, 0699770, 40893712, 7826159, 1895420, 0907903 ####[facility] [address] [place] [address] Chloride [Moles/Vol] 97 mmol/L Low 101-111 [facility] Comment on above: Performed By: #### 1 5388110, 6559542, 3399552, 8396859, 82543722, 5177387, 8486357, 0372096 ####[facility] [address] [place] [address] CO2 [Moles/Vol] 28 mmol/L Normal 21-31 [facility] Comment on above: Performed By: #### 1 2303609, 1228493, 3470770, 5207287, 56733071, 0594104, 7528515, 1398394 ####[facility] [address] [place] [address] Glucose [Mass/Vol] 137 mg/dL Normal 55-[address] [facility] Comment on above: Result Comment: If t his glucose result represents a fasting glucose, interpretation should refer to the following reference range: 55-99 mg/dL Performed By: #### 1 5036075, 1994162, 8110347, 1859855, 87443907, 4395408, 5298766, 4087628 ####[facility] [address] [place] [address] Potassium [Moles/Vol] 3.5 mmol/L Normal 3.5-5.3 [facility] Comment on above: Performed By: #### 1 1698353, 7484559, 4136748, 6514994, 70186213, 0457030, 2284310, 6332208 ####[place] [place] [address] Sodium [Moles/Vol] 137 mmol/L Normal 135-[address] [facility] Comment on above: Performed By: #### 1 5809644, 1260650, 4091131, 4783706, 98079593, 9375842, 2753605, 8477916 ####[address] [address] CBC w/ Auto Diffon Erythrocyte distribution width (RBC) [Ratio] 13.4 % Normal 10.9-14.[address] [facility] Comment on above: Performed By: #### 1 1187994, 8306539, 5861037, 4858170, 29090382, 7698052, 3036544, 3793919 ####[address] [address] Hematocrit (Bld) [Volume fraction] 39.5 % Normal 34.0-46.[address] [facility] Comment on above: Performed By: #### 1 4214484, 5182433, 4380740, 6120793, 76706429, 4704271, 9568755, 4497610 ####[address] [address] Hemoglobin (Bld) [Mass/Vol] 14.1 g/dL Normal 12.0-16.[address] [facility] Comment on above: Performed By: #### 1 5210377, 2542852, 3565954, 9745771, 59724612, 6578759, 7154285, 8874849 ####[address] [address] MCH (RBC) [Entitic mass] 31.2 pg Normal 27.0-34.[address] [facility] Comment on above: Performed By: #### 1 1035641, 8772220, 1313342, 2440929, 30913480, 5228435, 9505236, 9773802 ####[facility] [address] [place] [address] MCHC (RBC) [Mass/Vol] 35.7 g/dL Normal 31.4-36.0 [facility] Comment on above: Performed By: #### 1 8684491, 8912409, 7460055, 4275805, 05367803, 6832447, 2248822, 9381589 ####[place] [place] [address] MCV (RBC) [Entitic vol] 87.4 fL Normal 80.0-100.[address] [facility] Comment on above: Performed By: #### 1 3357279, 7521179, 2600890, 4709862, 56471360, 6843890, 0409730, 8940357 ####[place] [address] Platelet mean volume (Bld) [Entitic vol] 8.3 fL Normal 6.4-10.[address] [facility] Comment on above: Performed By: #### 1 7552146, 5624854, 9444966, 8000136, 20932464, 1906359, 7185516, 9794834 ####[place] [address] Platelets (Bld) [#/Vol] 295.0 E9/L Normal 150.0-500. [address] [facility] Comment on above: Performed By: #### 1 8835676, 7514148, 3644960, 1078121, 89464560, 1856624, 8828501, 3345850 ####[facility] [address] [place] [address] RBC (Bld) [#/Vol] 4.5 E12/L Normal 4.3-5.[address] [facility] Comment on above: Performed By: #### 1 7528401, 6221105, 0883541, 8037687, 84753474, 4473434, 6950888, 2130325 ####[place] [address] WBC corrected for nucl RBC Auto (Bld) [#/Vol] 8.4 E9/L Normal 4.0-11.[address] [facility] Comment on above: Performed By: #### 1 8877330, 2834244, 6131053, 8744538, 44317629, 0311143, 7224925, 9590299 ####[facility] [address] [place] [address] CT Abdomen/Pelvis w/ Contras ton 02-24-2022 CT [...] Rectal Contrast Given? No Normal [facility] CTA Cheston 02-24-2022 CTA Chest Exam [...] (more content not included)... Normal [facility] Consent for Treatmenton 02-05 Consent for Treatment [id number] [facility] ED Clinical Summaryon 2021 ED Clinical Summary (Inserted Image. Elvia ble to display) [place] [id number] ED Clinical Summary Person Information [facility]: [facility] Age[facility] 81 Years : 1940 Sex: Female Language: Mozambican PCP: ADRIANA CRUZ DO Marital Status: Visit Id: Visit Reason: Fatigue; Post surgical problem; [id number] PAIN Speciality: Acuity: 2 Enc Type: Emergency Med Service: Emergency Arrival: 02/24/2022 13:07:19 Discharge: LOS: 000 05:49 Checkin: 02/24/2022 13:07:19 Checkout: 02/24/2022 18:56:59 Dispo Type: Admitted as IP to this [facility] EVENTS: Event Name Event Status Request Date/Time [...] 02/24/2022 18:56:59 02/24/2022 18:56:59 02/24/2022 18:56:59 ADDRESS: [address] [place] [address] [address] [place] [id number] PHYS DOC NOTES: MEDICAL INFORMATION: Prescriptions Given: [...] Abnormal cardiac enzyme level Normal [facility] ED Note-Physicianon 02-25-20 ED Note-Physician Basic [...] she is known to Dr. Wasserman from [facility] cardiology. She also stated that previously she [...] (more content not included)... Normal [facility] Comment on above: Result Comment: Elec tronically Signed By: Jay Emery DO\.br\Date and Time Signed: 02/24/22 17:27 EST ED Patient Education Noteon 02-24-2022 ED Patient Education Note Normal [facility] ED Patient Summaryon 022 ED Patient Summary (Inserted Image. Elvia ble to display) [place] [id number] Patient Discharge Instructions Person Information Name: ADINA PERRY Age: 81 Years Arrival Date: 02/24/2022 13:07:19 Discharge Diagnosis: Abdominal pain; Abnormal cardiac enzyme level Primary Care Physician: ADRIANA CRUZ DO Provider Information Primary Provider: Jay Emery DO Advanced Catalytic Converter Operator Helper:None The exam and treatment you received in the Emergency Department were for an urgent problem and are not intended as complete care. It is important that you follow up with a doctor, nurse practitioner, or physician?s operations manager assistant for ongoing care. If your symptoms [...] opioids can be used to help relieve ckrkfgth-tg-ftfuyt pain and are often prescribed following a [...] be struggling with addiction, tell your health daycare director and ask for guidance or call [facility]?S National Helpline at 6-153-325-TWHK. v Source: US Department of Health and Human Services/Center for Disease Control & Prevention [facility] Medications Given: Med (more content not included)... Normal [facility] Hep Func Panelon 02-24-2022 Albumin [Mass/Vol] 4.4 g/dL Normal 3.3-5.[address] [facility] Comment on above: Performed By: #### 1 6945526, 1687300, 8549265, 8456369, 97155301, 8952964, 4463398, 9433612 ####[facility] [address] [place] [address] Albumin/Globulin (S) [Mass conc ratio] 1.3 Normal 1.1-2.[address] [facility] Comment on above: Performed By: #### 1 2943946, 6398397, 3304860, 5324414, 93430179, 2334743, 1324209, 5488268 ####[facility] [address] [place] [address] ALP [Catalytic activity/Vol] 72 Int._Unit/L Normal 21-[address] [facility] Comment on above: Performed By: #### 1 9836648, 0493048, 4688984, 0227980, 72039407, 2044319, 5239527, 4200943 ####[facility] [address] [place] [address] ALT No additional P-5'-P [Catalytic activity/Vol] 16 Int._Unit/L Normal 6-[address] [facility] Comment on above: Performed By: #### 1 9008014, 7276949, 4757541, 0379236, 19272793, 2711741, 5877877, 5447926 ####[facility] [address] [place] [address] AST [Catalytic activity/Vol] 18 Int._Unit/L Normal 5-[address] [facility] Comment on above: Performed By: #### 1 9201314, 6585570, 0320475, 2339676, 51176626, 6987870, 2009360, 9999160 ####[facility] [address] [place] [address] Bilirubin [Mass/Vol] 0.7 mg/dL Normal 0.0-1.1 [facility] Comment on above: Performed By: #### 1 8077126, 6209041, 1888002, 7873141, 88551659, 3399245, 2214462, 1569816 ####[facility] [address] [place] 0126357 Bilirubin.direct [Mass/Vol] 0.1 mg/dL Normal 0.1-0.[address] [facility] Comment on above: Performed By: #### 1 5891542, 7103895, 0097681, 5292264, 75844454, 6357581, 0326083, 8864291 ####[facility] [address] [place], [place] [address] Bilirubin.indirect [Mass or moles/Vol] 0.6 mg/dL Normal 0.1-0.[address] [facility] Comment on above: Performed By: #### 1 7522172, 2324262, 7608519, 4982686, 64535660, 0122317, 2657124, 4569648 ####[facility] [address] [place] 0[address]357 Globulin (S) [Mass/Vol] 3.5 g/dL Normal 1.4-4.[address] [facility] Comment on above: Performed By: #### 1 4409470, 1535107, 5160167, 5065573, 76138348, 2228218, 8903813, 1352016 ####[facility] [address] [place] [address] Protein [Mass/Vol] 7.9 g/dL High 6.0-7.[address] [facility] Comment on above: Performed By: #### 1 3141456, 3604439, 7001592, 4366567, 74993698, 8206808, 3596630, 1027534 ####[facility] [address] [place] [address] Lactic Acidon 02-24-2022 Lactate [Mass/Vol] 1.5 mmol/L Normal 0.5-2.[address] [facility] Comment on above: Performed By: #### 1 6219132, 7467125, 0875365, 9556337, 46276519, 5859094, 0642399, 7955140 ####[facility] [address] [place] [address] Lipase Levelon 02-24-2022 Lipase [Catalytic activity/Vol] 43 U/L Normal 13-[address] [facility] Comment on above: Performed By: #### 1 6013065, 7024258, 6674441, 9183676, 85945470, 5233562, 8422489, 0518972 ####[facility] [address] [place] [address] Monitor Recordon 02-24-2022 Monitor Record [id number]#1.00CD:[address] [facility] Monitor Record [id number]#1.00CD:[address] [facility] Operative Reporton Operative Report SURGERY DATE: 2021 MUSIC INSTRUCTOR: Kylie Costa, Certified Back Office Medical Assistant INDICATION FOR SURGERY: The patient is a 81 year old female with previous abdominal hysterectomy performed in an open fashion in the presenting with a 2 cm incisional hernia that is symptomatic seen on computerized tomography scan from [facility]. She is here today for robotic [...] condition. Jay Power M.D. young Dictated: 02/19/2022 [id number] Transcribed: 02/19/[address] [facility] Comment on above: Result Comment: Elec tronically Signed By: Jannet ERIC, Jay Downing\Date and Time Signed: 02/24/22 07:55 EST Troponinon 02-24-2022 Troponin I.cardiac [Mass/Vol] 105.90 pg/mL Abnormal 10.10-27.[address] [facility] Comment on above: Result Comment: Crit ical Result I_hsTnI:105.[address] EMERY at ER by TIERRA ARMENTA and read back for confirmation at 02/24/2022 17:57:53 The 95% CI (Confidence Interval) PPV (Positive Predictive Value) for myocardial infarction in females is 38 pg/mL, in males 51 pg/mL. The results should be used in conjunction with clinical conditions of myocardial infarction. (Visiogen High Sensitivity Troponin I Instructions For Use, Appear, November 2017) Performed By: #### 2 236951 #### [facility] [address] [place] [address] Troponin 0 Hr.on 02-24-2022 Troponin I.cardiac [Mass/Vol] 96.00 pg/mL Abnormal 10.10-27.[address] [facility] Comment on above: Result Comment: Crit ical Result verified by repeat analysis\ Critical Result I_hsTnI:96.0 Called to CHCEO SPARROW at ER by TIERRA ARMENTA and read back for confirmation at 02/24/2022 15:02:58 The 95% CI (Confidence Interval) PPV (Positive Predictive Value) for myocardial infarction in females is 38 pg/mL, in males 51 pg/mL. The results should be used in conjunction with clinical conditions of myocardial infarction. (Access High Sensitivity Troponin I Instructions For Use, Appear, November 2017) Performed By: #### 1 7258646, 3166507, 5257485, 3310492, 57738553, 8664480, 3443609, 1125848 ####[facility] [address] [place] [address] Troponin 6 Hr.on 02-24-2022 Troponin I.cardiac [Mass/Vol] 105.10 pg/mL Abnormal 10.10-27.[address] [facility] Comment on above: Result Comment: Crit [...] Sensitivity Troponin I Instructions For Use, [employer], November 2017) Performed By: #### 1 7467610 #### [facility] [address] [place] [address] UA With Cult Reflexon 2021 Bilirubin Ql (U) Negative Normal Negative [facility] Comment on above: Performed By: #### 2 331051, 30509993 #### [facility] [address] [place] [address] Clarity (U) CLEAR Normal Clear [facility] Comment on above: Performed By: #### 2 375320, 94047364 #### [facility] [address] [place] [address] Color (U) YELLOW Normal Yellow [facility] Comment on above: Performed By: #### 2 349354, 07341327 #### [facility] [address] [place] [address] Epithelial cells.squamous LM.HPF (Urine sed) [#/Area] 0-2 Normal 0-2 [facility] Comment on above: Performed By: #### 2 052280, 72520086 #### [facility] [address] [place] [address] Glucose Test strip (U) [Mass/Vol] Negative Normal Negative [facility] Comment on above: Performed By: #### 2 515825, 03407433 #### [facility] [address] [place] [address] Hemoglobin Ql (U) Negative Normal Negative [facility] Comment on above: Performed By: #### 2 688661, 79764192 #### [facility] [address] [place] [address] Ketones (U) [Mass/Vol] Negative Normal Negative [facility] Comment on above: Performed By: #### 2 463624, 02861055 #### [facility] [address] [place] [address] Hampton.plasma/Lithiu m.RBC (Bld) [Mass ratio] 0-3 Normal 0-[address] [facility] Comment on above: Performed By: #### 2 769442, 68046257 #### [facility] [address] [place] [address] Nitrite Ql (U) Negative Normal Negative [facility] Comment on above: Performed By: #### 2 602521, 35331509 #### [facility] [address] [place] [address] pH (U) 7.0 [pH] Invalid Interpretation Code 5.0-9.[address] [facility] Comment on above: Performed By: #### 2 724486, 84696984 #### [facility] [address] [place] [address] Protein (U) [Mass/Vol] Negative Normal Negative [facility] Comment on above: Performed By: #### 2 475147, 88356226 #### [facility] [address] [place] [address] Specific gravity (U) [Rel density] 1.010 Invalid Interpretation Code 1.005-1.[address] [facility] Comment on above: Performed By: #### 2 118455, 21872102 #### [facility] [address] [place] [address] Type of Urine collection method Clean Catch Normal [facility] Comment on above: Performed By: #### 2 763886, 65293554 #### [facility] [address] [place] [address] Urobilinogen Qn (U) 0.2 {Gemma'U}/dL Normal 0.0-1.[address] [facility] Comment on above: Performed By: #### 2 059909, 84165968 #### [facility] [address] [place] [address] WBC Auto Ql (U) 1+ Abnormal Negative [facility] Comment on above: Performed By: #### 2 775528, 70041999 #### [facility] [address] [place] [address] WBC LM.HPF (Urine sed) [#/Area] 0-5 Normal 0-[address] [facility] Comment on above: Performed By: #### 2 167158, 36500502 #### [facility] [address] [place] [address] XR Chest Single Viewon 02-24 XR Chest [...] by: PRESTON Technologist: JOSEPH, Jd [facility] eGFRon 02-24-2022 GFR/1.73 sq M.predicted among blacks MDRD (S/P/Bld) [Vol rate/Area] 58 mL/min/1.73 m2 Low >=[address] [facility] Comment on above: Order Comment: Order added by Discern Expert. Result Comment: eGFR is race adjusted. AA=. Performed By: #### 1 2366268, 4309076, 5354561, 7972998, 21849211, 6565689, 0556962, 8082157 ####[facility] [address] [place] [address] GFR/1.73 sq M.predicted among non-blacks MDRD (S/P/Bld) [Vol rate/Area] 48 mL/min/1.73 m2 Low >=[address] [facility] Comment on above: Order Comment: Order added by Discern Expert. Result Comment: Paper Sealer serene kidney disease could be indicated at eGFR's of less than 60 mL/min/1.73m2. Kidney failure is indicated at less than 15 mL/min/1.73m2. Performed By: #### 1 8275345, 7618409, 2788230, 5196309, 18970057, 3760505, 8405406, 6111636 ####[place] [address] [place] [address] Consent for Anesthesiaon Consent for Anesthesia [id number]#1.00CD:[address] [facility] Discharge Instructionson Discharge Instructions [id number]#1.00CD:[address] [facility] IntraOperative Documentson 04-22-2021 IntraOperative Documents [id number]#1.00CD:[address] [facility] IntraOperative Documents [id number]#1.00CD:[address] [facility] Preoperative Documentson Preoperative Documents [id number]#1.00CD:[address] [facility] Preoperative Documents [id number]#1.00CD:[address] [facility] Consent for Treatmenton 02-04 Consent for Treatment [id number]#1.00CD:[address] [facility] Inpatient Patient Summaryon 02-19-2022 Inpatient Patient Summary [address] [address] [facility] Clinical Discharge Instructions PERSON INFORMATION Name: ADINA PERRY PHYSICIANS Admitting Physician: Jay Power MD Attending Physician: Jay Power MD PCP: ADRIANA CRUZ DO Discharge Diagnosis: Comment: PATIENT EDUCATION INFORMATION Instructions: Post Op Patient Instructions - FT (CUSTOM); Laparoscopic Ventral Hernia Repair, Care After Medication Leaflets: Follow up: With: Address: When: Jay Power [address], [facility] [address], [facility] [address] [place] [phone] Business (1) In 7 days 02/26/2022 Comments: Call for followup appointment MEDICATION LIST New Medications [address] [place], [place] [id number], [phone] acetaminophen-hydrocodone ([place]port 325 mg-5 mg oral tablet) 1 Tablets [...] Mouth every day. Comment: Normal [facility] Main OR PACU I Recordon 02-04 Main OR PACU I Record PACU Phase I Docum ent Type FT Summary Primary Physician: Jay Power MD Finalized Date/Time: 02/19/22 12:21:31 Pt. Name: ADINA PERRY /Sex: 1940 Female Med Rec #: [id number] Physician: Jay Power MD Financial #: [id number] Pt. Type: A Room/Bed: [facility] Admit/Disch: 02/19/22 05:56:04 - Institution: Case Times [...] Saeed RN 02/19/22 12:[address] [facility] Main OR PACU II Recordon Main OR PACU II Record PACU Phase II Document Type FT Summary Primary Physician: Jay Power MD Finalized Date/Time: 02/19/22 16:14:48 Pt. Name: ADINA PERRY /Sex: 1940 Female Med Rec #: [id number] Physician: Jay Power MD Financial #: [id number] Pt. Type: A Room/Bed: [place] [address] Admit/Disch: 02/19/22 05:56:04 - Institution: Case Times [...] Garcia RN 02/19/22 16:[address] [facility] Main OR Preoperative Recordo n 02-19-2022 Main OR Preoperative Record PreOp Document Type FT Summary Primary Physician: Jay Power MD Finalized Date/Time: 02/19/22 08:51:16 Pt. Name: ADINA PERRY Umberto/Sex: 1940 Female Med Rec #: [id number] Physician: Jay Power MD Financial #: [id number] Pt. Type: A Room/Bed: [place] [address] Admit/Disch: 02/19/22 05:56:04 - Institution: Case Times [...] Olivier Loza 02/19/22 08:[address] [facility] Monitor Recordon 02-19-2022 Monitor Record [id number]#1.00CD:[address] [facility] Operative Reporton 2 Operative Report Patient: [...] for the proposed operation.. Normal [facility] Comment on above: Result Comment: Elec tronically Signed By: Rk Moreno Jr., DO\.br\Date and Time Signed: 02/19/22 08:20 EST Outpatient Surgery Discharge Instructionon 02-19-2022 Outpatient Surgery Discharge Instruction [place] [id number] Patient Discharge Instructions PERSON INFORMATION Name: ADINA [...] Jay Power [address], [address] [address], [facility] [address] [place] [phone] Business (1) In 7 days 02/26/2022 Comments: [...] to serve you. Thank you for choosing [facility] HERE ARE THE MEDICATION CHANGES THAT OCCURRED DURING YOUR HOSPITAL STAY New Medications [facility] [address], [address] [place], [place] [id number], [phone] acetaminophen-hydrocodone (Newport 325 mg-5 mg oral tablet) 1 Tablets [...] and water are not available, use hand towel weaver. ? Change your dressing as told by [...] (more content not included)... Normal [facility] Patient Education - Texton 1 04-21-2021 [...] and water are not available, use hand towel weaver. ? Change your dressing as told by [...] care provider approves. General instructions ? Take iius-yfb-bptsuwl and prescription medicines only as told by your health care provider. ? To prevent or treat constipation while you are taking prescription pain medicine, your health care provider may recommend that you: ? Take zlnw-vzo-geihgie or prescription medicines. ? Eat foods that [...] 03/09/2013 Document Revised: 03/05/2018 Document Reviewed: 11/12/2016 [employer] Patient Education ? 2019 [employer]. [facility] Progress Note-Physicianon Progress Note-Physician Patient: ADINA PERRY Age: 81 years Sex: Female : 1940 Associated Diagnoses: None Author: Rk Moreno Jr., DO Postoperative Information Post Operative Note: Post Anesthesia Care Unit. Anesthetic utilized: General. Health Status Allergies: Allergic Reactions (Selected) Moderate Percocet- Nausea. Severity Not Documented Darvocet-N 100- Vomiting. Problem list: All Problems BMI 20.0-20.9, adult / SNOMED CT 0226553914 / Confirmed Incisional hernia / SNOMED CT 963196553 / Confirmed RLQ abdominal pain / SNOMED CT 332254856 / Confirmed Ventral hernia / SNOMED CT 6598581771 / Confirmed Weight loss / SNOMED CT 482718522 / Confirmed Resolved: Anemia / SNOMED CT 147888013 Resolved: Fecal incontinence / SNOMED CT 162531103 Resolved: History of colon polyps / SNOMED CT 3333348664 Resolved: Nausea and vomiting / SNOMED CT 64745898 Resolved: Watery diarrhea / SNOMED CT 008137766 Physical Examination Vital Signs 02/19/2022 14:13 EST [...] able to self (more content not included)... [facility] Comment on above: Result Comment: Elec [...] Histories Past Medical History: Resolved Watery diarrhea (070027921): Resolved. Fecal incontinence (038304522): Resolved. Nausea and vomiting (45805065): Resolved. History of colon polyps (5218789093): Resolved. Anemia (173616820): Resolved. Family History: Heart disease Father Primary malignant neoplasm of lung Sister Diabetes mellitus type 2 Father Brother Procedure history: Colonoscopy (388432386) on 01/17/2022 at 81 Years. Comments: 01/17/2022 11:03 HANG Becerra RN, Jennifer biopsies, diverticulosis EGD - Esophagogastroduodenoscopy (7994925512) on 07/06/2020 at 80 Years. Comments: 01/09/2022 16:[address] Colonoscopy (859377467). Comments: 01/09/2022 16:02 Rajwinder [address] 2010 Esophagogastroduodenoscopy (582543936). Comments: 01/17/2022 11:03 HANG Becerra RN, Jennifer normal, gastric biopsies section (22164971). History of hysterectomy. (4700740048). CE - Cataract extraction (0693332171). Procedure on back (576001767). Arthroplasty of knee (53070243). Bladder operation (7049917360). Social History Social & Psychosocial Habits Alcohol [...] Auto 69.3 % Lymph Auto 20.0 % Kent Auto 8.7 % Eos Auto 1.0 % Basophil Auto 1.0 % Neutro Absolute 7.0 E9/L Lymph Absolute 2.0 E9/L Kent Absolute 0.9 E9/L Eos Absolute 0.1 E9/L Basophil Absolute 0.1 E9/L Glucose Lvl 94 mg/dL BUN 25 mg/dL HI Creatinine 1.2 mg/dL eGFR 43 mL/min/1.73 m2 LOW eGFR AA 53 mL/min/1.73 m2 LOW BUN/Creat Ratio 21 HI Sodium Lvl 140 mmol/L Potassium Lvl 4.7 mmol/L (more content not included)... Normal [facility] Comment on above: Result Comment: Elec tronically Signed By: Rk Moreno Jr., DO\.basia\Date and Time Signed: 02/19/22 06:44 EST Coding Summary.on 02-10-2022 Coding Summary. CD:[id number] Gh0bWw +PGhlYWQ+XU0YJUBgV96qeHLpx L9QS9wVCN3IDKZRLSDIJV8XMN7 ilIU5OVsbM7HwcqSa ReumdSOmEA38BSz3URV7jUjtNO rhsM9hqGJvJ1e6VmBhBX41zV74 RDspKRTzVcH1GgWwatygsEOg W2qsEhMayWOuWrc+PHRhYmxlIH rdMPMqMLzgZFSlOtJunDpsTS0t Kt6pYDLyIPFzqHodxLOwUtWl h2trXZLmNWthDQ3qvYoaK9PwgE Y8PJGtw0i3Wb44vMZ+PHRkIHN0 pWxiWIzlg699DwZvb8csZHN5 eTHbKMurGXZ0R33fz4O9RAAyVD TgELM6sUM2iX2haMteywicD9Uc qIGmYuG4TAZ0cLTdnD3yoQwa wbscsT8fGzi+O42VXC6QIKLAAA 2OFiy4N2AxBpdjdOH+JT47BRMc DJ53bWWiqZFvs8oqjXq5DpVa OJGaNKP6mTvaUAxvm4KyUXUrU2 5fsEZqm1F0OUBztUniqVIzFnVx eNW2yS7hADsutuybn2gixtnc Qfmov3yjaa38fZ23T41bXOmcGM RhJTY6SFAyTXVfeVabto8ncT2t Ii8+JLons0gqk7xbbSz6MtZy XUEnetDfmWutWLV8b6QgPi88D3 RyoBfgb8HxKka1qc68kIOhd6P6 qFS3BQvyQSQeiT1lQZggHyZ5 VACdJmIwkQ92cJXcOPvgZr8fuE mxsRthZV1jOULaiidpGEUzhJ8l UFBojQXujUtuEP5bIBZcsspl g367NgOdSPB3RSEqrHIgP1IrlJ 8xYkOcKTVsQFTsA2SspOBvJKjl S743MTmwMlX3QOSiooVcE9Zl OVWliJeaKhZ0x7K9Hf4Pd9Svxx piQKO9DQorUXDyGyH6EvDrMtG9 O0QeLev0XUFtbZzuJR1zJ1Du VCRptanqzfvakUI1NSHrEGCrrA 37hNIxMLjxAy1gt0Z0q358RAIv ENImkO62Kx9ozTqxLCGyeNCM wB0ckeqrn6oklvdoAcFcGQUcYF p5XQj9REJyiFgaCkQxDLA8OhW9 QRY0tGLhiG0rtDalesyweD0w Oyc+F51buQ5nOSW8QWT3ckadEC NsivDtON72TZ93B8TlXwqazFJo bGU+NYSryaGhwYzdJC3gOrGs g8gkx3NvKZoqH9ZuNWCnBZueZz s8FVZqEWB9dZJ2bY1hKXLwGWid l6G8zLJ1H1XmvuMdjk5sb4fp IHKbGCouP53fySZnc5K9XLRutQ C9UBZneXyfHyPxlG03Zcc+PGNv xDuoi2EbSnivt8kef4vdeJo7 JuBeVCEgfqZseDmlUJW7r5HjGe 21P86sXHelWGOwMKIlWQCsSMBs yHlrkp6itJ1mZm6+PGNvbCB3 sCK9wW9dOVFfOhG2THfdS741Wj SvlTNmOcepq7ein0zhtLq3IkEf EHSdgcQejNftDTH7e9UzTz93 Y70nFOptCMEvXAApRHOuIAFisR uxuj6quX2nQg1+QU4gq5dfsa90 yY51yCG+YAUnMVA4iDffYYqt TKMjzH7tGOwkYzU4ZDKoJpAmiP 36sWSbUGxbMl2mgTublDnkPM8a OTGkofdkr135LfEir6fbZVVw hYJiLLpaBWH8J36dx6D3HEDkVX XqAMW0vTO4hO0zvHygivyzdCIv wUrafpUyfRgsWZupSKgxS556 IHRvcDsnPlBhdGllbnQgTmFtZT x5A3NlZgt4EHGgxJqoPK5pfEUw YWcqAb0njQsyfFpxCR8dTSRh zfrzd127IwHjz1qmXBBtuLEaOH pkYYL8C31qu3O9QKSaANWtJMI3 wFQ4kQ7xkWdgxiqgyRQiyCzs ljGaaTugGIegUDolB185SWGuqS diCpIgjpUkMNYtqJT0PU62QR84 cKShm3L0zDL1I8SqCJEmukdr hinrhJF6HNCgWGPsiZ42Xr5bbX ekMt0kMWTdPNA8NAIqlPVsA5Wj bZ1oPrYrDJFvXPTwW4AgaAYn NEbpG189GJeeBjC4RVMivbGfJ9 ZdNOKtxIpwZcU7z8Q8Ur4ZI5I2 VN84XG35mDCof8C1oCY1H4Vy GUYebeibndcxlGJ9DOPcVNBiqM 55Cu6wcBxuUh3mVMBtKNM1VJZg xSOuA1FhzJ7mSnIaOFJtNIGw F7MyfCKdTImsD745CCxyKaK3VX RbqdTaW1QfXZHvrNomOpW8e8A9 Ns0HUGa4KK67EE04jFYzr0F8 aGA1D3ReHGZksxgbsjqctVS8IG XaEGDjqF47Dk2mnPzsXs2vSFZj SVJ3KXGdtDLnO6RlhK1tNoHd QJWiRXCrC4PaqCFlETgbC684AD vjJuH2IUAjzpQtL8CqUSPkyBhg MpY1e5D0In6GIQXjRF69OIE9 nNB8RY68ST95L7PwPwuqvGCyzC U+PHRhYmxlIHdpZHRoPScxMDAl AjSlxEanJM4sNs8eXAEhDHRv iCoeyKKdCjMfd9jqVRLnBDkcNK 3tmScqP8SdwCV8XCRyu4s4Yd95 Q29uB0LjaSY+VFCncPF7gYM3 qQ0pZlLfPiC5WOemI058LjCqgS ZqGblec7fog3cgyOy8GlX1DAUy rsUqnKsrCHF0z5VeYx89Z87p IHdpZHRoPSIxNSUiIHZhbGlnbj 1jcB8nEo5+ZYQxpEG3vKW0rC2h ObYsZtF6YIdyZ913NdPzbMYi Uklcd5fyd3cowWv6NiMcCCUikw KxtVpjKSA1v8FhIl70X3VwqFcl s9JiTfb3zj61iYKvp8L3dAE9 N2TeSHQbemmbeAJikVqtRX9wPG QlqnrzYFOtbA1tWSHrZ2x7NzFo QfY6OVzvQ0UmktO3TMFfnPFr RNfmEGD8C75tb1H0GESoDBBaCL J8qZU2iE9tgCxukqshsKDtxQvw tsOfsDaoZEfkIVdgX155ENIq eIaeLYEtgT7oWNVqkDZseJcbZZ 8kZYEyqfsoCaUXM5GYZ4QhCGUS ZQEBK4xYSR32RU39zUTht6V0 kSS2R7BvPHXbqhjckmlhqYC7XN TwEMHaqK64dVBuJPhzOa3at1W6 w398FUPoBCNvhX52Rk2mlCtf YVNkyBPXkQ7zorcti0auddeaOy HbTJGtUVj5AWb7ZOXiwYgnCeBi ATN0ZxO9LMG8aYFvpM7rgZtq gvftaD8nFjw+OKGiOTUdUPu4Ge wvdGQ+WYKhHNM9hJohAXikOXCk rZ0sZCAgQ1k7HzJyBzU3XAty I4EgQEGdelbwQt93iM7uLtTqMg G7WFxhI2PtnsW7DLLwcJAnXEjq TQY7L77da6Z7AMPsSECcLAM0 oBN7xC3yaVfdqmrmoSFckAihtx BefHafMAayXUbxN708GLPzoEji Xtb1MHmhPHGfTU64RT69kCSy r5F2gAG0C3RxVQFmzfqudhacuG S0SQFsVKWciE91oTIqUPllEd0h q0J5p322LSIjKWNdeK57Uz0b mLksGFRckMYOmR3afdhsu3xdbq mkBmWzTSZwYSx3ZNc8WDAkdSay ZaKoLKQ9AiB7KQG1eMAouR8l fZyrvfrctV6fLjc+RmVtYWxlPC 21VD98eZVsr0J3dUL8J9IoOMXe yangwnpbsPT6AAKoXMDuvF48 zQLwHGwaZg4mh0E4k578QBAjPY AgvP03Sm3vvQyrCKOabDDGbQ7f ivgep2rpxihiVbGgYRBoTWt1 VXo8CTImqMlmJwGyXFS4MqA9BK Y7pROzbP0xuCzidvwsxX4mYpu+ J3V3tKQ8iNNkhQmrcWQ+PC90 zb10L0VjKvaiMll1ATLeQQT9mX H1nE9cVBSiVIbbi5V6dCK5X1Hm ihIezn7gv1ttQGBhBThtV40p qCPbc4N6DDEglHM4EYTafLygRn MvlK60Lot+OJHswQbzo0DaBunw z6jgj5jluDf0PaLdNJBpsmMi hRxpIEN5i2XwDx94R70cNYmiEQ YyNGDiHUJzHKMzbVygyv0hnC2e Ii8+GUHatMQ2zRI9hU8nBtTh AvY4GEzpQ680UjVdpOFmYsjry9 umq3pjjOe0GlOyFYYvusCqaGai UJP2u2PnYe46U4RyzFaam2Av Ygu8jm90rCMka4V2iSY2C8DpLM LkhzjflTIauItfHR6pJEFirkfz MTZnyP3sVWLsF2w9AaFiAjS8 QVgkS8XvaoR8MMUthWWsRSDkyP LGnQ8dyxdam3yzdhhjEoZfVKRf EBk9PAb1KKXibFbrOpWnRGQ3 IpW4DCG6kZDzpE5yyXubagvlzU 9wOyc+XZg7q8wjuLXaMV0zcNT7 NV63SJ82zERqf9R1yNY9J5Qx BEMsakpnbpfkfCL7DKIkTUSomX 60Mw9qtKdhFz9mFPWwWGH0FVIj mHZsP4UcnF6vBxNfXHMxRKDj X2WrwPOwXRjtU680VJtzSlG7HY SlkaVnY0MuPDFrbTggSdS9y1F4 Qc2EMR04IT02UZ28yMMtu3V5 dMX3I2KzLERzqokmrbzjtJH2JH BxAVPvcT04Hw5pmKhsYr3eJVPp GIL2OIRuhGAyN8KxgL8vTkBs IHGdXKHnS6RzbRDlAKgvM567UM aqFeH7PBSwipMmY3UrZXWiePug OxF0k7Z4Mk1MJp15ZM63ET73 pTJxn5X1lPJ5H7CcLJKtcwfryk kvtTC9NISwDBLttK24Tr2sdJca Jh2nHWCjRFP0OPIwlJFgI8Ov dJ2hAzRzVDJsYFVaZ3SdfHIpAQ ruY382XTybTnH9VNMsrkJmX5Ca SXCgjPpcZrZ8y5Q7Bp8YCOec aow2Z7SgBjrolEK+DX02UKDsJS 73fDNqnQVft3ovvWa9UxRuVUKe PVI2vFkpIVari5XfAYNiR98u bGFw (more content not included)... Normal [facility] Outside Recordson 02-07-2022 Outside Records [id number]#1.00CD:127 [facility] Consent for Procedure/Surger yon 02-05-2022 Consent for Procedure/Surgery [id number]#1.00CD:[address] [facility] Outside Recordson 02-05-2022 Outside Records [id number]#1.00CD:127 [facility] Consent for Treatmenton Consent for Treatment [id number]#1.00CD:127 [facility] XR Chest 2 Viewson XR Chest 2 [...] MD, V. 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 However, on review of the actual report of that CT scan from 11/12/2021 at [facility], CT abdomen and pelvis with contrast to rule out diverticulitis. There was nothing mentioning a hernia in the body of the report nor in the findings. [facility] did not push through the images to our PACS system. I am unable to review these myself at this time. Our office is in contact with their radiology department to rectify this mistake. After calling and speaking with our radiology department and [facility], they have put the images through and [...] after patient or guardian consented to allow [employer] to record this visit. ANA M forest fire prevention specialist and provider reviewed before signing. ANA [...] (more content not included)... Normal [facility] Comment [...] CT Imaging Reminder/Recall CT done 11/12/2021 at [facility] Spoke with [facility] Imaging and they pushed through the imaging Look at PAC Received imaging per Dr. Power [facility] RAD - CT Reporton 01-31-[address]22 RAD - CT Report [id number]#1.00CD:127 [facility] IntraOperative Documentson 1 IntraOperative Documents [id number]#1.00CD:127 [facility] Postoperative Documentson Postoperative Documents [id number]#1.00CD:127 [facility] Coding Summary.on 01-21-2022 Coding Summary. CD:[id number] Gh0bWw +PGhlYWQ+PQ2GGEQsJ67kdPYpg W0TN5cVCJ6OKSURLQEJXY7BWH8 huKY2QVmdB8WterFw NhpgeOToXJ96RFn2LDM3tNajYE dzsT5xsZTmP0c5BpJvSX47uM19 KVvqRIHoNdJ1VrPeoipmcUBg Z7wxDsWzjLMlTrl+PHRhYmxlIH qpANNvQUgoJDWjYaVovMprSK7a Rb8cLJCgIEWhqIvjpNMsYoVy z5zpGANxCFjoMN3ywFdaT2PbzH M1JUWdh5t5Kh42fAA+PHRkIHN0 dIjiLTqra109KbMvd7riBAR2 yVJuZIxvEVG7Y75sc1D9JQWhPS LwKUK6vSM2tG5fpGbenxnjD0Og bQWuDqR4KPF4vXGoeM4htYyx jhpmuG8zFkx+L05ISX7GNFDPGF 6NMwp1D9UgOzbayXI+BD35RQNr BH87wDZdwPYiv1jlgIr6HmYv JAUjDYU5eGwhXHute7YzOHBxO0 4kePWcx4I8JQUryUbgxLThJaUg aTL3yG5nXIbnnvgnc2yxlenz Empjh3bdfq73eQ60W00dQLkxYF AeMJE1SJDyYATvlRhhjf1tdS4p Ii8+FJrdu7kno3sktTb0IyWz HAKpbpMxtZsiBBM4x3JqNh00A6 BpdTmjc4ZiZpf5jw86iRQgu7Y1 zIT2LEghJOOcoX3iDOzyJkR7 OXApCfOxsD27jPDtPMxeRw3jvW hdfKavZL6bZPIxesgwLUBebI2j GAPcsABzsLuzPL0sBEGyqvsh c665SkWkMWO2CSAjzENhG1SmuY 8gOvWmUJRpZZOgT6VcuFNxLRfy S918MQnsXaK8VIIfrbBcT4Di ROEnsBecDdU3z7L1Oy6Yq9Mqnt rnDGW9RHglSYXqOjS9PcAdXxD3 G1TvTsi5RRCytKfaRY1tP7Lf KQMltxkevshfeRH8RIPwVNYmaI 90cRFcNAnuFs0kz9I2k231GUSm DXGrgG82Rp9tyNwkLJWcmXTY lD4pklytp9riarsoFuIvDDOkLH w6GKu3VIWrlTomIaOpQTI2XtE6 ZUX8sUPyqN9knCzdujitrW1t Oyc+K32goA4fMVX2NHM4jgffVT McrjIhBJ48RG51S8LmRzsyjLLb bGU+IFZpzfUleScfYP8kDmPu e8apu8CpDJzpK4IfCKTwJPcpQd h0CRZlEEA1hBP9fA0jNNJsNNzv u2V3xXK3U1EarvYdvq2cs9bf PKOtBBaqR30yaUDsm0R4DXVajB U3MIFwxLazGjZzgD87Kix+PGNv pNaov9JyVrses6nkm5fcgFa7 BaUgCSWhzeUnaZgkOBM3b0UpQx 51C12aZUndCMTrAAFgIDZpANLf wYwvac0cqP1dHj7+PGNvbCB3 bZV5pT0tDNOrMkE1QHixX079Hp EuhCUdIjkrg0bgc2nrqEo6MmQk RLXjrzEzoTpfTXH4w5FoGo12 K54jWMyuVUHiBYWkVWKkQOZhjN wlwz1jsS0lEx8+ID5xt7vtck37 rW64pUL+BLQnWJC8qGaxULhy UUClbX3aKOvgXlD3WCDpOsSiaM 11vGVhWRceFp6xfXljkOzqNS5g MENsrfruo059BuRkf8qcEMSw cBVtTTikOSK3T54hx6Y7NMIjOL XkVFE1uHM3aJ7jeYshxkrcfFNw xVjhxpVooZjjNLngCMpdF452 IHRvcDsnPlBhdGllbnQgTmFtZT g8E7GoNna0EYTgqNdvZI2qdOLq DWcqFw6cnCytgEopBE2tQVKt plbbj414VwYro9xjHWQghQDeSR jtALZ4Z34cg5J8QXGtGIEbMRQ0 aOL7kA4mkGjbdixqvOBhuOlx fsFwgYgoWGwaUPnzT246BSQudH sfCoBbfqIlMWIrqVZ5ZJ56UL14 wTHah2D0kHK0T6UjZAWalibv suofeXR9GQKeQSJbnJ51Bt8dxH gvZq0vIKCfNYH4CNLkwKIfA7Uc tD9cNfImFBDoQAJvA9LotHBx BOztL105NDnhMeA0UBLkulTzF9 VvVABijYjaQiS5h0S8Ix8XW7M5 JY91BT74iXMnk0E3cKP2L0Dg GUCdyqxzhagghIF6BMSqPZIyxF 34Jj4giPtpLb0uZZKuFUN3NPDb wJBgV0TtgV8eQhIiJNSsPYEl H6YnhYOdVBdpM713XXtrStP4UT DcoxPaD2VuWXAmgUrkKtL6x3R7 Ly6WDMa5RX82EJ47tLTdf4T5 gUY2I6GvTUNjelhchwjofNR8WZ BwHPOjtR06Wp2byBirTa3gEQHh JXP8ORRlwHAmU0YujJ0vBsLt AYSoVCOfR3SygXMrDLxjW498PR seKvQ1VVIqtbEsF1OeAJQgdSmh FvX8w3E5Ww6IICYjCF55RDE2 aBB2TC99GO72N6JvKoiwpCVogM U+PHRhYmxlIHdpZHRoPScxMDAl BgRipXrdGZ1hMg3kUAMwJSGk wLmclCYoPmXzz2xrVZPlOSvpWT 7nuVogT7FlzYE8CFIlt7r2Tc03 K25sH1OnjRH+LPZbsZZ3uMS8 cB0bNoVdTiM7OXyeU008DuOudR KcUdfqk5wch4daaBn5TwY5BLLu rgQieDbeJEX5a2IcDc31U93n IHdpZHRoPSIxNSUiIHZhbGlnbj 5nxD3xJk6+GJWpxLG0jBP0sK5f SlVbNxT5GNsvM077QpEuzNEb Qsjdh7mze1ziyQk3NgPnUIBwnl OpfSnlBDY4m7PxAk89S6LfjZap k8CjRjf3sb49zQEnu6B5vZW7 T8QgZIBvziqsnMCctBkaQT4wWH ErhpobMXGewM5qNCBdH5k2CdBt NtQ3NAlwG2ZgmiN3JYNgwRHa LEmdXJW1O79vw2P8MSLgMGOaSY R3tQO4xB0hpZjmtgrybJSbeHtm cwGcyVlkIOutFGllA760QXEz vAalZWLzvI0bAZImvPZjrWurKL 2jOQStxddeAaTHI3DUV7EvQDZT KNCPO3vKRB87AI97dPHyi0A7 cZK6Z2XxIZYjuyevgkcofBP5IP EjZZIawO23qCKdBXwdYi2it7U0 z235DOLpCLXhjH79Id4yyIog KRVphAMMhV9mglszj2jdwjquMk CpPOCcRZv8VUi1YYOujEvsCdNr JMT4GtL9ZTP5sDFtbV6arVja nubdoU4dTtt+PEXbWHPfRGz5Ux wvdGQ+VVQoJIP0lYuhPWvfVLAs oB2oILNvG5c1VmTyBaU8PGbq M3FiXBOfcrwbPw68sV3oDwHcFz T0TIwkQ6GzfxX1SUEjcPMhIIox YFJ2A67mk3W9LFJpXGFrIZC3 kTA6mW1syZvcrdzsdZEnyOlagv SolGhaHGkkQFwoK670RZCvoDxk Tlt0JApbHFRkVU08NL88nBIk o9O9qDJ1C7HwGSZeozrwaqopqB F8MVKfBZQoyT96iFEyHKemBh4a y0N5o580UHZoTKHssB38Fu0s wUmxDNDgtRTClQ9idpmpn6obim flUoYsKVWjGJd9YUx2NCGgiAvn KnXpSDC7VuH4VGO6aMTvmX0o kAvopjsvhN4vGqq+RmVtYWxlPC 30QD42vDQld1R2kRF1Q5YoGFLl aqbfhwyrmXS2XUHvSQDmuL67 yALpDFfsQy4fe7A4u855CFTkSV AjoZ86Ye8mdIopAIUpcJOWyS6h tmxay8jlxeupGhCkSSVoIVa3 NNa2YUDxeJezUrBaGWO2HvP9VW L0dUJsaT3qxZngpfhgcQ4tAds+ L9W9nUC0nKAuzYgfrIY+PC90 rs66E5CtUmbyCwi6RWKyAUR9eS U6pV3rJSYsBBqlk8H4hNB2B2Im zlRxwq3hg9lnJWCdFRaiK87h mIErh4Q7TTDofRP3MEOlrZaiDp MpmG50Ako+GNXkxKctx4RiVjcf h8tdp6xmkBs6OeTrEZAmozGb jWeuPSU4f9RqEu51L00mHDyuFC ChDABcPUAmSWGpsYwsip5vqK7b Ii8+BMKciVA6dPP8dI4wKaYq MvE4EWccG540VwHmnXAgWptaw7 jgk5nigOm7YrAnIEIduhEiyOyd HCO6h6WrEi05E6IlkXvrt7Nt Htu0aj30uZJne2G4kVC6T7DdWL WkbmvvySWzgMkeFL5hUNHmfklm ITEczQ8kGZNkT3l6YdMlBnL3 GAqmS4RjjcH5CPXeqHOqYVXhjX EMlC1yfzhxh9clvyfsJuGpSASy VPo7PBd4UBBcuRuwIwVwRLA9 EfD6JRL8zEHxtU4fpRjazdvdbO 9wOyc+YHy7t8eokBRjQY5lkOS9 DN40YV45gJJhp6A8tME6J2Fb ILRwjpafabbdsSJ5QMImJROmyR 61Us3nuZisKm4oYMRwXBH9VVDm xSQgJ5FevU4mEyGsYYWsPFJo F8QdrFPeOKwiN776PMnvQfU1DF SkqvTdJ9MxPWAorOeoEjX2t3N0 Kd8ADX23XM83KR21gRJmr5A7 iDQ5B8KnFXCgupxdulnttSU5ZK GcHZWxeL15Py5lcLviDf3eJRSg BZO4HAFmaAMuM5GelQ3pSoOq UXVvMPVsE0VcgZAsMPllO241BO gxMcK0SQOwdpVrJ0GdHATfrYhd VeS0c9B4Si3TEh42PJ61PX63 aFCba5V5mSF6B6CfTIHqdotcbi byoZU9AODtPDNdhC83Ds9bcAze Vs4fIZCxKFD7XGRdzSHzC2Ja jB3jHqLwDLVxPEZkS5OvrUBfGG guT840EZkzUlM7ZQGehoKgZ2Yq JSTvuBwuLxX2z8D3Be6JHHsm eir1H7PoLwpwrTI+NE16ZAJfZY 88aMMgqQZkb1vjyFg8NcAxWHAl HRB2zGwvTBsoy8KwEHAsY85i bGFw (more content not included)... Normal [facility] Giardia, Direct, EIAon 01-21 G. lamblia Ag IA Ql (Stl) Negative Invalid Interpretation Code Negative [facility] Comment on above: Result Comment: Perf ormed at: [facility] [address] [id number] PhD Yolanda Jiang Performed By: #### 1 [id number] ####[facility] [address] [place] [address] Main OR Intraoperative Recor don 01-21-2022 Main OR Intraoperative Record IntraOp Document Type FT Summary Primary Physician: Jeferson COPE MD Finalized Date/Time: 01/21/22 11:55:08 Pt. Name: ADINA PERRY /Sex: 1940 Female Med Rec #: [id number] Physician: Jeferson COPE MD Financial #: [id number] Pt. Type: O Room/Bed: / Admit/Disch: 01/17/22 [...] Craig RN, Michelle Fuentes Role Performed Anesthesiologist Assistant Housekeeping Manager - Primary Staff - Other Water Pollution Specialist Time In 01/17/22 09:27:00 01/17/22 09:27:00 01/17/22 [...] and tissue Entry 1 Skin Integrity Intact, [place], Warm, and Outcomes Met? Yes Dry Last Modified By: Riddhi Sanchez RN 01/17/22 07:29:31 Post-Care Text: The patient is free from signs and symptoms of injury caused b (more content not included)... Normal [facility] O & P EXAM, ROUTINE, REFLEXo n 01-21-2022 Ova and parasites identified Concentration Nom (Stl) Comment Invalid Interpretation Code [facility] Comment on above: Result Comment: No o va, cysts, or parasites seen. One negative specimen does not rule out the possibility of a parasitic infection. Performed at: [facility] [address] [place], [place] [id number] PhD Yolanda Jiang Performed By: #### 1 [id number], [id number], [id number] ####[facility] [address] [place] [address] O & P Exam, Routineon 2021 Ova and parasites identified LM Nom (Unsp spec) Final report Invalid Interpretation Code [facility] Comment on above: Result Comment: Thes e results were obtained using wet preparation(s) and trichrome stained smear. This test does not include testing for Cryptosporidium parvum, Cyclospora, or Microsporidia. Performed at: [facility] [address], [place] [id number] PhD Yolanda Jiang Performed By: #### 1 [id number], [id number], [id number], [id number], [id number] ####[facility] [address] [place] [address] Consenton 01-20-2022 Consent [id number]#1.00CD:[address] [facility] Discharge Instructionson Discharge Instructions [id number]#1.00CD:[address] [facility] IntraOperative Documentson 1 IntraOperative Documents [id number]#1.00CD:[address] [facility] Coding Summary.on 01-19-2022 Coding Summary. CD:[id number] Gh0bWw +PGhlYWQ+HL8JFKRlK00ivHVgt V5VL3cVEC5VJQJZNEWZPH5YMT5 mzLF3YNwrD9YzaeFh YslxqOEtLD54RNo2LNZ5aBbvXJ vrpZ7kdMQuZ5x1SkHlLU94sI66 PJfkPZWuDaE7FmAsfbpqvLOi Z9eeIzLzfNUkNcj+PHRhYmxlIH bcEFUfHEyqHWShXtGvfIvfYC1a Aw6bMCLrEFGskVspnMLlEwWq h5eiQVMlXSwcLL4ihDwfF5HgpT K6RROvm1s7Fm26gGJ+PHRkIHN0 jMmwEFuyh310GcGvk5hyWVI7 nLBqKOkmMAC2Q41qs5U5IKScHC ApOXV2hCB5fN1bkDkmbcolK5Xd tPXpHiT9CHK1mICvtH4zxEqi hfmbmW4iZlz+B81HBE9SOMWLAM 6HQvl8J6GwEfueeQO+CA64OPMe CS61mVRcvJAva5axgEp0UzUr VOCfZGX6qVbgJNjnv1KpSDIyM2 7ffZLdn6Q0TVEgbSgvwKWzQkKp fXA5fH7lSUkcxuddg1srpgbh Vdbkn6ybna67sF91X11fTPfmUD UrHQG7UQAuGMRkaTfcye1qhX1f Ii8+FXjaf0qiy7ngpAj0IgTa KVNyrsMivTghPUF8m6YqPy36X3 AnpVkag2FwAbm3tv95eBDhz3O5 rMJ8VWwtRXKhbN8xBKxlDzT7 VEJlLoFogA88pMCxISjdXo3ojL eqaTwcLH8zOERwqozdZYKizJ4j MHOofZTxxQbxPB0kAOLywnfj g832GcZpMPZ8URKseZAgW1BgdU 6sAcCwXOAdUIPvG4XzkTTfIIri O467ARyhEdO1MXVumrBuZ8Tf JNWulOmzSrW8k3N5Aq9Vk3Yrka pyAFC3VOowNWOvIaX3WoAxDhV6 I9BwSek4MWDwhMywYS2jQ2Iu IUIqcnboikrnlUE0BWBvSYPxtZ 52eBUsQLmwIn5ua0I5w790ROBo PPOlpU20Bn0dyQifEPSbgXVZ iC3weqxnb9uaqnvwKfQzAEBpGZ k2CQw3ZOVipVtzIhKbBKQ5RnI8 ULX6nLGlyR5eaAfkocmffB8t Oyc+S25ggL0jEUN9QKC8irnlBG MykaKjCH68SE67R0VdPwtbfWCq bGU+EGFlpfCqpXgxRP2jWqTm h2fgp0LpNCnbA7KvMQMnNSplLu k5JQYdHDG2fEE0eZ4oLHHlEFse i7C3eQL8W3DbvoLuap6il2of EDCsQQlsO09kfHOiq9F1KOShzT Q3GSHfzYhlVjCueD34Hee+PGNv oLbpo4NhIyqjy1rqm9cgvCo2 AjKaGYVxdlBckQwpFQV5i4KjOj 74Q11bDZigHOTeWOViHOXeSLYc kAoohv6isA8gMx7+PGNvbCB3 oVJ9mT8aJKIgAkK8MRgyK888Sx OwtQAuOyxlj2wuf1enoLg2ZsEs OQIwvtKwmUrdKZS8v6CaSk08 R36lOTfjMJTzVEUbZIYfTBXxeX tdok7qwY4eZl2+AC9pm8efyk54 pX27vSN+LBVqUNN4fAnmIJug SKSibJ2yYJtpRcL7GEQjUvXfpC 68zOBaUKyoSd3ihZqkkInxRS5p WVCwbqejg681XvJcl9weODEb aZEnLTwdORM4S39vt3P5PQOjNK GdOQG1xIU7tZ1tdZtladcybHNb oWsphzUvvOnpNYtnDSnlE986 IHRvcDsnPlBhdGllbnQgTmFtZT q4N9BbAtw3CGNgvTexHA3mqEYv FLxeTu8jfAfuqYopCE0nGQTi dyqge137QnXmc2ebIEUkiSQzWB ykDVG9G28pk0Z3WKXpKFInSJZ9 qLA6yA2cuCwrepgwiPAskGly jvPnvQxdVUooUWjtK371FOFyzY ueRyQpulSxCOZuiYR0KM91MS99 hQXqk4X5tJP3Y8AjTBIgnrrt wacsgIT5DDBqCLAvsS60Ey6faT ciHk8oAQOfXDO7XNNqwTIcX4Gc kO4nLjYzZFFgLIUxR7KszCRx NLykO887HJdiPaN2YJCionLeT7 GiPQWnyTstQiB6c7N1An7LH2C1 UT17TP85dUCey9U0oQI7G0Rs HAWakgnnxtzvkPY8KXYcDIWnnV 17Vk6pdWiyRj4sCAMvHEU0KRMk fYWbC9IdxS3pHhZfBWUbWQHj T1WxyATqPOqdF363ZGpsEyH7GQ MlsyCgF1CqISIhjCfdVfU5u0Y6 Vt3VFPo4XR12KQ30dOWzy5Y6 tQW2T9GnVKMlrlhthvzjvOC4IV TbCJOreC21Wp3nyKboNm5jAMOu SGS3ASIqnMGgW7JtcX1zSdGm EYYtWBRxX5SafACpVZdsB994NK xxPsT9RMYgfkWzP4JhGMYglUmi HyV9n6V2Vj4KTSUlEU63QCU8 vWW5OB95AO30N5IyHfigdYVyzL U+PHRhYmxlIHdpZHRoPScxMDAl TeIchPmtEN8rKv6lCZHfEMWn zFcbxXNsUiMil5vxMPInJPvvHA 6wcUxwQ4CbbLK3QWPwm9q1Ky95 U01oH7YcfIG+MCNmsBQ9nWW8 nA9eGkMpNzC4ASqwD532FoDjwB YhUqdny4ixz8smyWw9AyE6YDPc biMvaFxqXXQ3z4QpFp15P59n IHdpZHRoPSIxNSUiIHZhbGlnbj 4ehC4iMu2+VTXkzCA2jMC2aQ4v QpQlOrH2LVvxZ865XkHzpXJe Qbpnp3qfl3nksGh6ZuVzVVDiuo DcnAawDEI9v4ImLt55B3AkoJra r2TwTir1lb56qNEai9H7kRA6 P6HvTWEqvvplcJIqiCrmCG7xBT KqfpmnORXwlK7dMJMyA3c2BbVa CbH8QPlnW4SrzyX3IQSpfQGm JNcjGSM4R18ra4F5HACeYKGrZC O6nJL0lG2jiGsifrnunZKhmRep qxUhjHpiTMorUQqzB635UXTn zPrdHIHnrP6bGVFdlXQezZtsTX 9bCAWdzdydRwVYD4NTI1TdBIAX ATDPL4yZQD83IM59tZTay0O6 qUU2D5IjGVNpzopqtdiufNQ5IJ MqGITnvN64oKOmMUobFj3zf6U5 o041MVJyRZApdX47Ot6ahRll YZPvsRWDjI7qitsdo7pwasdpQl YvBIVaEEt3NQo4TWEscLcyEwHv CGL5GkN1MFF5dCGtwT0jmBmn bmtxsZ2kRlj+AVIrYBPqGAo4Hl wvdGQ+ELVeNNK4lLjoWLqyUTQg sC9aATLgO0b1XoFyPkR4KXwf D0EsDRXrrjlvZj71vT2wUuBiOo G6PCalL3TpioS8HJQsbFMyHOss JJR4U90wr5E5RLZiCWMxDSP3 tOJ9oE4hsShwqvyjtVQyeDqwgx WktNstLGxqSFfjE725UJEfwPly Thk1EDuyUPPnOQ85QZ10bNGi o0K5bCX2J2VrZZRehfrzhlihbL J9SKWxYPHzpS13bVDxBZkzDi1o b3Q6q598GYTdMROmcV99Ly9q dEruTXLskJEOvV1ocqqpj0kjnc hlHzNtUXJgCJp6VYw7FFDxrYrl FqFfXCX2XaE7RLB8dJCuaY2j uUnowxxzaM0dMwe+RmVtYWxlPC 35HW92mLNsl7N8tEM1P7IcKGLg gvzjlkbqaXM7NVMuTAMcoD42 xACuWZurWs5wo7S6l400HBIlJP MgyK55Wc9gzYfzPGUhoYMWuJ3e fmvtw9ialkllZcFoVFBtXMv2 DEa8FLWolYgySnXbJSA4FuL4JP J8aYOvwV1btFsvlxsogQ6eTrb+ THOtJGToc5Mgm9OuCL23UI69 C6KoYtkzcUVrnFS+PHRhYmxlIH wsCQGeTHtyFLKuDsYerDpeKS4p Gj2gWZAlPUBbvJxieMMcFyQm e6avOVMsUXgaCY9zcJijX1FyoT J2JLWen9y6Bg16C98fO1CnzSJ+ JSKddGZ9yCM7nU1wEaXoEhF9 AIhaN985OvStyJIeOrfmo7oda8 qnsPa2SwGiPURwheQjmPciHWB2 w5NsEn63Z14zMVvmNCFeNVNu EJEbTEFjmSqacl1upX8qJu8+PG PmgDA3gOM1uU7fXqXyDmT7VFlg F834RaEzkJYhGltqC57aM8Ib dXA+HOHwIbr9VKYfaRywEX4axP WoTOvoId2yVKX8NoExUxPaTMqn D0LzVGRnrrzrtrftoGF8VYQh TAGkwL29Qu9znQrdPr9jUUNuDE F7BOKmtYZtA6AozE4jJwViILPj YILtY8KduAGrVSouN107BArw UmO7GWDsajUhE5AiUCJeqGasQv Z9t7Q3Wx1SiIhnwZIrLE7gZoXk QYf8J6XiIbi3VWGnaKsyCA4i zMZoKEbcKb0iaHpykVxkLV1tKA Cyiqkyf771NvIcl9rlXFEhgJOt PTyuMOC5G76cc9J6ZZOxPHFb LFW4uRU2rO7gdEpbgfcntLJlrL riasRdoCfwLBnrXRwjB384CSBm yIppDuYIWvv0E2GsLuy2XLDs rQqdFF6qqRCkCMscYe1fjFdxoH mgSL4iCDBurmjiq565JhRko4bj LTKjdIDpWMzxVDR5C33xq8J0 BIXuNAOmTNA6yMR3gA8khTevhi ogbGVmdDsgdmVydGljYWwtYWxp J334WYTjgAyjXj7WHbt6I9Wd Ebp1CGRupOybIB3gkUGuENhpTl 2vrEwtoFrhGP0hUZLfzfihk061 IyWhr9ueOBHxbEWdYDfuSMK8 F14ps5V9DHMjDZDrXJB1nQO1zD 1hbGlnbjogbGVmdDsgdmVydGlj EEkuYXhqU648RUSjtNtmRyBy eWVyOjwvdGQ+OC69qt55C1WhTb nlHlg8IWSiLZC8qAS1bF3lRRGv TCjun9O7wQV6X3ZppwIvbz9o b2xs (more content not included)... Normal [facility] Consent for Treatmenton 01-04 Consent for Treatment [id number]:[address] [facility] Endoscopic Procedure Report - Otheron 01-17-2022 [...] Follow-up in GI clinic in 2 weeks [facility] Comment on above: Result Comment: Elec tronically Signed By: Jeferson COPE MD\.br\Date and Time Signed: 01/17/22 09:56 EDT Other Comment: Quyen vieira Attachment - attachment storage system not supported [id number] Can be [facility] Attachment - attachment storage system not supported [id number] Can be viewed in source systemMissing Attachment - attachment storage system not supported [id number] Can be viewed in source systemMissing Attachment - attachment storage system not supported [id number] Can be viewed in source systemMissing Attachment - attachment storage system not supported [id number] Can be viewed in source systemMissing Attachment - attachment storage system not supported [id number] Can be viewed in source systemMissing Attachment - attachment storage system not supported [id number] Can be viewed in source system Endoscopic [...] 2. GI clinic follow-up in 2 weeks [facility] Comment on above: Result Comment: in e [...] activities:: After 24 hours. Normal [facility] Comment on above: Result Comment: Elec tronically Signed By: Jeferson COPE MD\.br\Date and Time Signed: 01/17/22 09:55 EDT Other Comment: Quyen vieira Attachment - attachment storage system not supported [id number] Can be viewed in source systemMissing Attachment - attachment storage system not supported [id number] Can be viewed in source systemMissing Attachment - attachment storage system not supported [id number] Can be viewed in source system Inpatient Patient Summaryon 01-17-2022 Inpatient Patient Summary [place] [id number] [facility] Clinical Discharge Instructions PERSON INFORMATION Name: ADINA PERRY PHYSICIANS Admitting Physician: Jeferson COPE MD Attending Physician: Jeferson COPE MD PCP: ADRIANA CRUZ DO Discharge Diagnosis: Anemia Comment: PATIENT EDUCATION INFORMATION Instructions: Upper Endoscopy, Adult, Care After; Colonoscopy, Care After Surgery Anatoliy (CUSTOM); Diverticulosis MAGR (CUSTOM) Medication Leaflets: Follow up: With: Address: When: [address] [place], [place] [id number] Business (1) Comments: office will call for follow up Type Location Start Finish [facility] 02/03/2022 10:20 AM 02/03/2022 10:40 AM Confirmed [...] D3) sertraline spironolactone Comment: Normal [facility] Main OR PACU I Recordon 01-04 Main OR PACU I Record PACU Phase I Docum ent Type FT Summary Primary Physician: Jeferson COPE MD Finalized Date/Time: 01/17/22 10:57:57 Pt. Name: ADINA PERRY/Sex: 1940 Female Med Rec #: [id number] Physician: Jeferson COPE MD Financial #: [id number] Pt. Type: O Room/Bed: / Admit/Disch: 01/17/22 [...] Signed By: Jennifer Becerra RN 01/17/22 10:57 [facility] Main OR Preoperative Recordo n 01-17-2022 Main OR Preoperative Record Holding Area Document Type FT Summary Primary Physician: Jeferson COPE MD Finalized Date/Time: 01/17/22 07:57:32 Pt. Name: ADINA PERRY.O.B./Sex: 1940 Female Med Rec #: [id number] Physician: ANATOLIY ERIC Govea Financial #: [id number] Pt. Type: O Room/Bed: / Admit/Disch: 01/17/22 [...] Beckett RN 01/17/22 07:[address] [facility] Monitor Recordon 01-17-2022 Monitor Record [id number]:[address] [facility] Monitor Record [id number]:[address] [facility] Outpatient Surgery Discharge Instructionon 01-17-2022 Outpatient Surgery Discharge Instruction [address] [address] Patient Discharge Instructions PERSON INFORMATION Name: ADINA [...] Follow up: With: Address: When: Jeferson COPE [address] [place] [address]. [address] [place], [place] [phone] Business (1) Comments: office will call for follow up Type Location Start [address] 02/03/2022 10:20 AM 02/03/2022 10:40 AM Confirmed Pharmacy Information: [facility] You may receive a survey from [employer] asking you to rate your care experience. Your feedback is important and will help us understand what we do well and how we can improve the quality of care we provide to you, your loved ones and our community. It?s an honor to serve you. Thank you for choosing [facility] HERE ARE THE MEDICATION CHANGES THAT [...] activities are safe for you. ? Take [id number] and prescription medicines only as told by [...] 09/21/2012 Document Revised: 09/14/2018 Document Reviewed: 08/23/2018 [employer] Patient Education ? 2020 [employer]. Colonoscopy Care After Surgery Please read the ins (more content not included)... Normal [facility] Patient Education - Texton 1 Patient [...] unsweetened, w/added ascorbic acid 1 cup 0.5 [place] 1 cup 0.7 Vegetables Cooked Green beans 1 cup 4.0 Carrots 1/2 cup sliced 2.3 Peas 1 cup 8.8 Potato (baked, with skin) 1 medium potato 3.8 Raw [place] (with peel) 1 cucumber 1.5 Lettuce 1 [...] (more content not included)... Normal [facility] Progress [...] criteria met. Condition good. Normal [facility] Comment on above: Result Comment: Elec tronically Signed By: Eliecer Pennington DO\.br\Date and Time Signed: 01/17/22 16:29 EDT Progress Note-Physician Patient: ADINA PERRY Age: 81 years Sex: Female : 1940 Associated Diagnoses: None Author: Eilecer Pennington DO Preoperative Information Anesthesia history: Patient [...] list: All Problems Anemia / SNOMED CT 220563946 / Confirmed Watery diarrhea / SNOMED CT 350832868 / Confirmed History of colon polyps / SNOMED CT 9982546939 / Confirmed Fecal incontinence / SNOMED CT 305313944 / Confirmed Nausea and vomiting / SNOMED CT 54630954 / Confirmed RLQ abdominal pain / SNOMED CT 088779778 / Confirmed Weight loss / SNOMED CT 693451349 / Confirmed, Active Problems (7) Anemia Fecal incontinence History of colon polyps Nausea and vomiting RLQ abdominal pain Watery diarrhea Weight loss Histories Past Medical History: No active or resolved past medical history items have been selected or recorded. Family History: Heart disease Father Primary malignant neoplasm of lung Sister Diabetes mellitus type 2 Father Brother Procedure history: EGD - Esophagogastroduodenoscopy ([id number]) on 07/06/2020 at 80 Years. Comments: 01/09/2022 16:03 EDT - Rajwinder Ho Dr Colonoscopy ([id number]). Comments: 01/09/2022 16:02 EDT - Rajwinder Ho [...] review: No qualifying data available . Plan [employer] (ASA) physical status classification: Class II. Anesthetic Preoperative Plan Anesthesia: Monitored anesthesia care and general anesthesia possible. Anesthetic plan, risks, benefits, and alternatives discussed with the patient and/or family. Pt. and/or family present and agree to proceed as planned.. Risks discussed including heart, lung, nerve damage. Risks of bleeding, dental injury, hospitalization, and general injury discussed. . Normal [facility] Comment on above: Result Comment: Elec tronically Signed By: Eliecer Pennington DO\.basia\Date and Time Signed: 01/17/22 08:36 EDT Coding Summary.on 01-16-2022 Coding Summary. CD:[id number] Gh0bWw +PGhlYWQ+SU2XHZTxL77joHJnb Z1OZ8yAJU1HUHYMMVMNKD7WPA0 tcFN3DRooX6WrfpJx GioihFJbRH73GMr5VQH7yEhmJI fqiS0tcHRsT9k2ZxZmJY42kS10 HSzhGSPtCzI1ZmWskphsvUIb G3uhRoThzCIkQkh+PHRhYmxlIH rvGFOmTTvvVJKlGnMnhDapXT5g Du4nYHEcYVEjdIsmlAJsKnSx n0hvJHWbTVeoTA4apLloN3GybY G2ULAem1m5Nn64iXD+PHRkIHN0 iVmxFZocx044PzYzz8voCTF2 vHZrXFtiBMW5J87qg8X7SSIkNA DiOVB7bEH4sF0vaIggzydwY2Nn lYNnRpA6IKA2xZIxwR5jtZat orngvF3wBcm+F34VPN4POWEAUO 0KLim9W8TnEgbdsST+MC60FQXe NV60cGYjjJHph7tesDr0GeCb UFVaAMQ7rZrhEAtsd7LyRPOeP1 0iqDRlm0A3YSDcoGovxQNzApIs bWD6tY6bJJdompzaz4hojbdc Rcrnc8uust96uA50H22cCMgiME ZvOUN3THIiGOKiwSznir3jtM2v Ii8+NYxow2gfn7kniMe1OsLh JXGamyGumOulJPW1h6BrPb76W9 RgrEbmt7XoQol0bs41nKXew9D9 tWR6UXouYIHmcE0iEUppPcH6 XCQjCeTfbA31mVYoTApiDq9dkS wbmJaeCY2pSQZeegrvHFGjvZ4q SONkpHFltQgqYR5jVBDfsoee s819OdXtUQQ3CIIszZWhL6AazS 9xOhAkFAUiHZUnK1VafNVkDPcs B758QRemDcY0IUOqqlTaH6Vu HVSamBaxSmP2s7P1La5Qs9Krwn roZIU2SGydGODgTvUhFpHvUeE9 F9AtGjs1EVYamNhdXQ0pC6Mz MEMmnaafsrodqTR3WTHgGQYncV 94lAOmXPqzJt1li9Z6g514ZSRa DXYvlG19Db5bbToeRBUusVAO eR2rcnjhz3vgcefvGhVjLVQbWQ e1VWw9GWNfxIczHkCoDHC2KsP3 SFF4hBIeuL2kwRlfbyxoyT1c Oyc+R20ysR5uLDP2GEN7innjXJ VzgpJnAB10TE53S4ClOtzskCNw bGU+JSCdqwFoeVivQB3xQzVs j9ukr5NuILxrY5ZvZFWjAMlyOa i6JHTbCES4mEV9iR9zTJAdNDqz d8R2gWS1I2PrnkIhhj0la4qv QCBpXDxcB27xdUUkh2R7DBRxjY H6XIZdkTxtVhZnwK19Vxv+PGNv gVces7KwGypns2vpe4rtwWu3 BxTxJZFmxpFkuCxyXYP8r1TfRq 28T64kMXvgWZXjUVXvGYWjZAWa zGavoy5qsT4bXg6+PGNvbCB3 dTM3rN0aGQRuNtX3JMhfJ699Wr BrnFKuQnhua3jkm5qedQn5CmJd SNCbimYxgGvgUAX4r0WxQk61 X70jTAcbWAQhKCNyUDWeLDDavO dlkb1nmQ5bXz6+ON8mi0pasq16 rZ95uSW+DPLgHQW6fHxyRSlq KEEbcN5rPGhsOyW0WPNeAoGdmC 23iGGpREyxUt6mvIannFfcSW9t YLXjfqqzl007GkJyd9kvJZBx aMZoHIjxIQB7X18ys1J1DYRfTZ GpSSS0zKM1bW5odYogcroszBMt hGnwusWyeIyjWQydSRkbN118 IHRvcDsnPlBhdGllbnQgTmFtZT o7S3ZcIiu6UCBxkBwoKI2tnILg XUiqUw7gpYkznDtrIB0sNOHl corel494GkQxf3zhYNAxqSBwPG ucTNJ6G26zj3W5JYQoVNOgYGJ1 qWG1tM2zwUyedezroRPabMco fuYghTauBMoyOVanW051IYBmiJ hdQhUrtmEzKUBwmYA5FQ64DY68 fMNzz8R0zHP9S6OtEVSmtbcz dreqhZH6VFXeLTIeyF31Gs0etE caVe0uLFDuEDN3IKRrlCFnI1Am nL8pSoEfWJFeVMFlZ2IccXFm XZoaY610FOluMeE1RKAlqeCcI6 CtNSBoiBjuKuU4h1T9Un9HX6P5 RP93RK24nEBap1Q5qAE0Q8Aw MDYrabexydujdZL6FYRnVFAttO 97Pq9scFvmKg2wVUUzNEN0EYMp mDFwP9FxqC2yYhAhZDCoYGHu P8TplDKjTJqrP738JBluDaG6IM UjitWtK6QxWIWlvFtpLhV4i0X1 Xg7QXNw6UV37VM01vWLmb2B6 uHK9W0QmZXMtrcvhwitkxQQ6KK AeBGUnxU76Hj4rxIwzVn8aGXUp FMU6VTNxzRKfC9ZrvV1cJgDi ZEJuYNZxS0LjsBIuQKnlX946HD kyCfI0JZNkorSgH5MtZVNhwHit OtW4e4R1Cx5JREGvBN70ORA5 yUW6YW17GQ10X8PpDudbfBIcqY U+PHRhYmxlIHdpZHRoPScxMDAl UjJtzDwgAL6gEp5mDJAcBIPt dCuhuTKpIlYye1efNIQyQFywTF 4hbBneC5IdqBY2WOTih8y3Ux80 P18eK3MblWF+VTObeMS1lBB1 jW7qZsAaRkC9UVcxT712EnWdcY CzJeovy4diu7lyyBj7WlK7KJAv rrRanGbbKRH3l3NoCm25U08w IHdpZHRoPSIxNSUiIHZhbGlnbj 5lfJ7dFp3+JBIyjNQ0rKN6bY1l ZxDrNmL6HWlpF676UaYwtPBp Bwxyo7kza8npdFs8ZtEzXGIhbn SakKzhWSJ6z8HtEr62X7DchMft i0WvSlb6wi80oPSoz6I9fNK7 L1BlUBUoavecyPGmsYkkBQ1fSL PktqbxFGDxtZ8kNRPdC6i4FwFo XyO6UDobE0FaomB5FSVmmVLw RXrhGCJ6J18da4W1TNRfGZXgOE N0qQG5lB7raClnluwffILxzIrj xtYksJmyKOznACagS560VKXw mQgrBVWvxT7wDIJebFVrcJeuCN 8kCVBudewdCuRVR6TUA6ZgTLIR TZFGM6bBEU82KJ51rHHxj5Q1 hQP2G6ShBGWcddnecyjddTY0SF TxQKXdtJ50xHLsKKovMs4cm5O8 j290NWHmQMYfwR75Ib9hdUwz RYClxULMjA3axnlbr7acfznxQu IxZQJtHEs9GRz8EGLupJglLfEj VNX3NiC9WZL4wXXqxG1ygDna cewacP7nKkh+DXGiYROmJMy8Hu wvdGQ+LUHfTXE7zWgaWHeaAKHs dQ2kEZIiU8n4LwBiIgK8JLpc I7XpSMVyippaXw90iB3xAcQkBf J6LFkkQ5GageW3SMAmgPXoFZhd KHF6O70sp1G7PVXeMBMcGLU4 tIF3yI0uwWcleavuzDVzrBanjg EutLrjZGsxHOpyU502VJNvoZjl Sbp6QWryMCDwMM39IX13mSAl i7K4jAV9U1FvAOHnokiovxkwqY H8OGWsDWMwlR91wIRkVXhuIr8f u9K8v240NUHjERYedM17Mg5t dKgnSCAmbQTOyI0tvstyt4rhlx qfFmRcCNEeMHr2YMx2LYWidFvk IcQfCCI2IwV4COA3rPFfcS0n hGootpqhsF6wYsy+RmVtYWxlPC 78JS86nQVrl6X1bPQ4X4FwHSXr fdvipypnnHQ5HWApMJHiwH48 yPTnNWphDm5nw6F5m633OUFfVZ GviB71Om9rcVtgLKIysALUuS8n snryz4cwufjpCgTyISHdQCf6 OFt3YYSbrHuaVsJaRWN5CnX4PW X8aRIbmL5tdGrtllqoiS3cOyh+ B2F5lGX9wPIhkPcczWI+PC90 uk63Y6MhYqxoXqo5TPElSRR5zT H7eS7qLORtAUkmf1O7gMW4I3Kq thDwvt9cg6wfWDQqEKqoK25y lUYyy3S2DJWheIF7MLHnoJvuDu DmiC31Jha+LUGatDxop7ZrBfve x8kcu8guvFt6AlJcETSghpOx xXhsRIJ2n7EzMj00A27lFTldIO HxNYUgGRBjSSXewBwhsg0dtG0n Ii8+IXVjsER5nTG3wB3pZjTv PeC2IPlmH697WkFsnKTaAdrgb4 qqw8kgdVd0HpWdXZRsyqPewVkq VKO4s7ZxQn91I1TtnWxjh6Uc Wzi1hn40eUFvd4B5bPM9M6JrNA ZsstjmmUDozOorTJ4zHECygshb OFOgbW9uFRQvA1c9UsYeLtJ4 THqgR9JcmaA1OFSeoACdNXZbhK ZQeI4bpjnak6lhejoxNeEbPCDy OPi5TCm7ASBgqGahJcSrCFJ6 WdD2XCM6vVVyeJ7taZperlkdwB 9wOyc+QIu1q6xyxHOlOV3dfAX5 JB73CV17bXBak1O4qVE0F8Ur ZAFcalmlddpqpSX1YEBaZYCoqE 30Tp3nnOkmWn8jXBIkTFB9QUCw cLNdN8RuxP4oWnTySCSeKQHf Y2FblKGlBAqgB294PSowNvP7VS PwhlGsC9BbNZJskDzbNrH0s8N4 Pv8TUP18LJ53NU02pUJrq7M3 lIC1B3JiPYGzuxyvbmvsgRK9ZN AgFZYpvC22Qe2tgNllQx1yLBLo IHY5UHYriHLgK4FsiK2cKgWv XAGaEUPhD4ZxhJFsXUwqR666ME oaYbC5JAYhunXdM2MdLAIggHip WvI2w6Z4Nm6GRs84RV97MT93 tAAwf7J6bUQ1V9SzNQXjzmrqzn uozXM7FJBeORSppK93Wz3miDzz Xq3dETFyUAE0VYXsbGVmI7Ih eF5jTfVgTKYlDMYyI4JaaLBrAZ eqO882PXoiJnA1DFYwfwJkX0Fg IOEprWmxBeM5u4H9Rt2YFBrw oei7H4WwOrkprPN+CR76KKHgHI 78yPCltTHmi0mlwGe4ZwAtUTZx DZV2uEzpMDtmg7ZgUVUwL47t bGFw (more content not included)... Normal [facility] C. diff by PCRon 01-14-2022 Clostridium difficile by PCR see comment Invalid Interpretation Code [facility] Comment on above: Result Comment: Unab [...] its clinical significance. Performed By: #### 1 [id number], [id number], 97341700, 58712492, 41404107, 46885291 ####[facility] [address] [place] [address] Consent for Procedure/Surger yon 01-14-2022 Consent for Procedure/Surgery [id number]:[id number] [facility] Enteric Panel by PCRon 01-14 C. coli+jejuni+upsaliens is DNA FERN+non-probe Ql (Stl) Not detected Normal [facility] Comment on above: Result Comment: Test ing was performed utilizing reverse brand ambassador promotional model (RT), polymerase chain reaction (PCR), and array [...] nulcleic acid test. Performed By: #### 1 [id number], 463015257, 71744133, 04250237, 01977347, 07472401 ####[facility] [address] [place] [address] E. coli stx1+stx2 genes FERN+non-probe Ql (Stl) Negative Normal [facility] Comment on above: Performed By: #### 1 [id number], 742469911, 19945400, 93452723, 16318242, 59671554 ####[facility] [address] [place] [address] Enteric Panel by PCR Negative Normal [facility] Enteric Panel Intrl QC Pass Normal [facility] Comment on above: Result Comment: Test ing was performed utilizing reverse brand ambassador promotional model (RT), polymerase chain reaction (PCR), and array [...] 1 and 2. Performed By: #### 1 [id number], 153575587, 70529232, 83437669, 41842451, 07496808 ####[facility] [address] [place] [address] Norovirus genogroup I+II RNA FERN+non-probe Ql (Stl) Not detected Normal [facility] Comment on above: Performed By: #### 1 [id number], 045573939, 42085213, 12153014, 92591698, 00036287 ####[facility] [address] [place] [address] Rotavirus A RNA FERN+non-probe Ql (Stl) Not detected Normal [facility] Comment on above: Performed By: #### 1 [id number], 887500628, 38107505, 34971541, 09424437, 01332738 ####[facility] [address] [place] [address] S. enterica+bongori DNA FERN+non-probe Ql (Stl) Not detected Normal [facility] Comment on above: Result Comment: This test result should be correlated with clinical presentations and medical history by a healthcare provider to determine its clinical significance. Performed By: #### 1 [id number], 284212812, 75476990, 41896617, 72997576, 84234704 ####[facility] [address] [place] [address] Shigella species+EIEC invasion plasmid antigen H ipaH gene FERN+non-probe Ql (Stl) Not detected Normal [facility] Comment on above: Performed By: #### 1 [id number], 836611285, 85205358, 59301117, 27834940, 59434045 ####[facility] [address] [place] [address] V. cholerae+parahaemolyt icus+vulnificus DNA FERN+non-probe Ql (Stl) Not detected Normal [facility] Comment on above: Performed By: #### 1 [id number], 370608067, 92509167, 53018324, 27344303, 85968615 ####[facility] [address] [place] [address] Y. enterocolitica DNA FERN+non-probe Ql (Stl) Not detected Normal [facility] Comment on above: Performed By: #### 1 [id number], 584921395, 37305978, 57539127, 28331956, 51520248 ####[facility] [address] [place] [address] Fecal WBC Lactoferrinon 01-04 Fecal WBC Lactoferrin Negative Normal Negative [facility] Comment on above: Result Comment: The semi-quantitative detection of elevated levels of fecal lactoferrin is a marker for fecal leukocytes and an indication of intestinal inflammation. Performed By: #### 1 [id number], 716110906, 60138309, 20234045, 14548033, 00620897 #### [place] [facility] [address] [place] [address] Ambulatory Visit Summaryon 1 Ambulatory Visit Summary [...] Interpretation Code RLQ abdominal pain [facility] Auto Diffon 01-10-2022 Basophils/100 WBC (Bld) 1.0 % Normal 0.0-2.[address] [facility] Comment on above: Order Comment: Order Added by Discern Expert. Performed By: #### 2 549612, 7407819, 58152871, 4222288 ####[facility] [address] [place] [address] Basophils/Leukocytes Auto (Bld) [Pure # fraction] 0.1 E9/L Normal 0.0-0.[address] [facility] Comment on above: Order Comment: Order Added by Discern Expert. Performed By: #### 2 519558, 8861695, 04325783, 3736390 ####[address] [address] Eosinophils/100 WBC (Bld) 1.0 % Normal 0.0-8.[address] [facility] Comment on above: Order Comment: Order Added by Discern Expert. Performed By: #### 2 967041, 2067361, 65730474, 9942297 ####[address] [address] Eosinophils/Leukocyte s Auto (Bld) [Pure # fraction] 0.1 E9/L Normal 0.0-0.[address] [facility] Comment on above: Order Comment: Order Added by Discern Expert. Performed By: #### 2 267308, 3652039, 04459443, 1286936 ####[place] [place] [address] Lymphocytes/100 WBC (Bld) 20.0 % Normal 14.0-50.[address] [facility] Comment on above: Order Comment: Order Added by Discern Expert. Performed By: #### 2 156604, 9520706, 52160173, 7819292 ####[address] [address] Lymphocytes/Leukocyte s Auto (Bld) [Pure # fraction] 2.0 E9/L Normal 1.0-4.[address] [facility] Comment on above: Order Comment: Order Added by Discern Expert. Performed By: #### 2 634782, 6198584, 69958362, 1402019 ####[address] [address] Monocytes/100 WBC (Bld) 8.7 % Normal 4.0-14.[address] [facility] Comment on above: Order Comment: Order Added by Discern Expert. Performed By: #### 2 498557, 7021444, 27694673, 4404277 ####[address] [address] Monocytes/Leukocytes Auto (Bld) [Pure # fraction] 0.9 E9/L Normal 0.2-1.[address] [facility] Comment on above: Order Comment: Order Added by Discern Expert. Performed By: #### 2 214454, 8398569, 16132800, 3069839 ####[address] [address] Neutrophils/100 WBC (Bld) 69.3 % Normal 36.0-75.[address] [facility] Comment on above: Order Comment: Order Added by Discern Expert. Performed By: #### 2 445842, 3608648, 96371007, 3781313 ####[address] [address] Neutrophils/Leukocyte s Auto (Bld) [Pure # fraction] 7.0 E9/L Normal 2.0-7.[address] [facility] Comment on above: Order Comment: Order Added by Discern Expert. Performed By: #### 2 285715, 1102109, 76913205, 1867573 ####[address] [place] [address] CBC w/ Auto Diffon Erythrocyte distribution width (RBC) [Ratio] 14.7 % High 10.9-14.[address] [facility] Comment on above: Performed By: #### 2 567316, 7244137, 46195370, 3402289 ####[address] [place] [address] Hematocrit (Bld) [Volume fraction] 37.1 % Normal 34.0-46.[address] [facility] Comment on above: Performed By: #### 2 105937, 5336682, 73184285, 9442329 ####[place] [address] Hemoglobin (Bld) [Mass/Vol] 12.2 g/dL Normal 12.0-16.[address] [facility] Comment on above: Performed By: #### 2 551522, 4117055, 86579483, 4630554 ####[place] [address] MCH (RBC) [Entitic mass] 30.0 pg Normal 27.0-34.[address] [facility] Comment on above: Performed By: #### 2 689397, 1566106, 21647187, 5182926 ####[place] [address] MCHC (RBC) [Mass/Vol] 33.0 g/dL Normal 31.4-36.0 [facility] Comment on above: Performed By: #### 2 598202, 2273005, 00581378, 2630635 ####[place] [address] MCV (RBC) [Entitic vol] 90.8 fL Normal 80.0-100.[address] [facility] Comment on above: Performed By: #### 2 427850, 8572352, 42539860, 5279672 ####[place] [address] Platelet mean volume (Bld) [Entitic vol] 7.9 fL Normal 6.4-10.[address] [facility] Comment on above: Performed By: #### 2 700005, 0303613, 22500337, 2483703 ####[address] [address] Platelets (Bld) [#/Vol] 281.0 E9/L Normal 150.0-500. [address] [facility] Comment on above: Performed By: #### 2 848233, 9465536, 76462334, 3637379 ####[address] [address] RBC (Bld) [#/Vol] 4.1 E12/L Low 4.3-5.[address] [facility] Comment on above: Performed By: #### 2 713697, 5150696, 83957790, 7373412 ####[address] [address] WBC corrected for nucl RBC Auto (Bld) [#/Vol] 10.1 E9/L Normal 4.0-11.[address] [facility] Comment on above: Performed By: #### 2 215313, 4265044, 43473782, 0231928 ####[address] [address] CMPon 01-10-2022 Albumin [Mass/Vol] 4.4 g/dL Normal 3.3-5.[address] [facility] Comment on above: Performed By: #### 2 633989, 7760719, 20116073, 9736556 ####[address] [address] Albumin/Globulin (S) [Mass conc ratio] 1.5 Normal 1.1-2.[address] [facility] Comment on above: Performed By: #### 2 868164, 9949951, 02103060, 4239982 ####[address] [address] ALP [Catalytic activity/Vol] 55 Int._Unit/L Normal 21-[address] [facility] Comment on above: Performed By: #### 2 118048, 2949286, 64094930, 4718388 ####[address] [address] ALT No additional P-5'-P [Catalytic activity/Vol] 15 Int._Unit/L Normal 6-[address] [facility] Comment on above: Performed By: #### 2 275887, 2547301, 08921936, 3413691 ####[facility] [address] [place] [address] Anion gap [Moles/Vol] 19 mmol/L High 6-16 [facility] Comment on above: Performed By: #### 2 196939, 4956019, 74510207, 4104732 ####[facility] [address] [place] [address] AST [Catalytic activity/Vol] 19 Int._Unit/L Normal 5-[address] [facility] Comment on above: Performed By: #### 2 084913, 4725288, 60724326, 4872959 ####[facility] [address] [place] [address] Bilirubin [Mass/Vol] 0.7 mg/dL Normal 0.0-1.1 [facility] Comment on above: Performed By: #### 2 945240, 0986749, 73989251, 5962696 ####[facility] [address] [place] [address] Calcium [Mass/Vol] 10.5 mg/dL Normal 8.9-11.[address] [facility] Comment on above: Performed By: #### 2 323384, 2803046, 47158483, 3768084 ####[facility] [address] [place] [address] Chloride [Moles/Vol] 103 mmol/L Normal 101-111 [facility] Comment on above: Performed By: #### 2 612364, 5578724, 10821100, 8679535 ####[facility] [address] [place] [address] CO2 [Moles/Vol] 23 mmol/L Normal 21-31 [facility] Comment on above: Performed By: #### 2 155517, 5376354, 74509385, 3406227 ####[facility] [address] [place] [address] Creatinine [Mass/Vol] 1.2 mg/dL Normal 0.5-1.3 [facility] Comment on above: Performed By: #### 2 659787, 5813359, 22085284, 9837641 ####[facility] [address] [place] [address] Globulin (S) [Mass/Vol] 2.9 g/dL Normal 1.4-4.[address] [facility] Comment on above: Performed By: #### 2 172803, 4118143, 47556859, 3129588 ####[facility] [address] [place] [address] Glucose [Mass/Vol] 94 mg/dL Normal 55-[address] [facility] Comment on above: Result Comment: If t his glucose result represents a fasting glucose, interpretation should refer to the following reference range: 55-99 mg/dL Performed By: #### 2 111157, 1420479, 23154119, 1431481 ####[facility] [address] [place] [address] Potassium [Moles/Vol] 4.7 mmol/L Normal 3.5-5.3 [facility] Comment on above: Performed By: #### 2 473894, 5306176, 03162816, 5104380 ####[facility] [address] [place] [address] Protein [Mass/Vol] 7.3 g/dL Normal 6.0-7.[address] [facility] Comment on above: Performed By: #### 2 584555, 4528260, 26564025, 7636102 ####[facility] [address] [place] [address] Sodium [Moles/Vol] 140 mmol/L Normal 135-[address] [facility] Comment on above: Performed By: #### 2 562270, 9206906, 91878081, 1321275 ####[facility] [address] [place] [address] Urea nitrogen [Mass/Vol] 25 mg/dL High 5-[address] [facility] Comment on above: Performed By: #### 2 [id number], [id number], [id number], [id number] ####[facility] [address] [place] [address] Urea nitrogen/Creatinine [Mass ratio] 21 No Units High 10-[address] [facility] Comment on above: Performed By: #### 2 [id number], [id number], [id number], [id number] ####[facility] [address] [place] [address] Consent for Treatmenton 0 Consent for Treatment [id number]:[address] [facility] Gastroenterology Office/Clin ic Noteon 01-10-2022 Gastroenterology [...] had previous EGD with Dr. Brannon at [facility] 07/2020 that revealed normal EGD. Was previously evaluated at [facility] 11/12/21 for N/V/D and had CT [...] year. Patient had previous colonoscopy 2010 in [place] and reports was normal. Patient reports hx. [...] to evaluate for acute process. 11/12/21 at [facility]-CT abdomen/pelvis that showed fat-containing ventral [...] (more content not included)... Normal [facility] Comment [...] your local community. General instructions ? Take hksg-utl-gotniii and prescription medicines only as told by [...] Foundation for Functional Gastrointestinal Disorders: iffgd.[email or web address] ? [employer]: patients.gi.org Contact a health care provider if: ? You have a fever. ? You have redness, swelling, or pain around your rectum. ? Your pain is getting worse or you lose feeling in your rectal area. ? You have blood (more content not included)... Normal [facility] eGFRon 01-10-2022 GFR/1.73 sq M.predicted among blacks MDRD (S/P/Bld) [Vol rate/Area] 53 mL/min/1.73 m2 Low >=[address] [facility] Comment on above: Order Comment: Order added by Discern Expert. Result Comment: eGFR is race adjusted. AA=. Performed By: #### 2 [id number], [id number], [id number], [id number] ####[id number] [place] [address] GFR/1.73 sq M.predicted among non-blacks MDRD (S/P/Bld) [Vol rate/Area] 43 mL/min/1.73 m2 Low >=[address] [facility] Comment on above: Order Comment: Order added by Discern Expert. Result Comment: Paper Sealer serene kidney disease could be indicated at eGFR's of less than 60 mL/min/1.73m2. Kidney failure is indicated at less than 15 mL/min/1.73m2. Performed By: #### 2 [id number], [id number], [id number], [id number] ####[facility] [address] [place] [address] Physician Referralon 022 Physician Referral [id number]:[id number] [facility] Urine culture routineOrdered By: Misbah Greenwood on 11-15-2021 Bacteria identified Cx Nom (U) Escherichia coli [facility] Bacteria identified Cx Nom (U) Klebsiella pneumoniae [facility] Automated erythrocytes count in urine sediment (number/area)Ordered By: Misbah Greenwood on 11-12-2021 RBC Auto (Urine sed) [#/Area] 1-2 [HPF] 0-4 [facility] Automated leukocytes count i n urine sediment (number/area)Ordered By: Misbah Greenwood on 11-12-2021 WBC Auto (Urine sed) [#/Area] 10-19 [HPF] 0-4 [facility] Automated urine hyaline cast s count (number/volume)Ordered By: Misbah Greenwood on 11-12-2021 Hyaline casts Auto (U) [#/Vol] Rare [LPF] 0-1 [facility] Basophils Auto (Bld) [#/Vol] Ordered By: Misbah Greenwood on 11-12-2021 Basophils (Bld) [#/Vol] 0.1 10*3/uL 0.0-0.2 [facility] Basophils/100 WBC Auto (Bld) Ordered By: Misbah Greenwood on 11-12-2021 Basophils/100 WBC (Bld) 0.7 % . [facility] [facility] Bilirubin Test strip Ql (U)O rdered By: Misbah Greenwood on 11-12-2021 Bilirubin Ql (U) Negative Negative [facility] Blood hemoglobin measurement (mass/volume)Ordered By: Misbah Greenwood on 11-12-2021 Hemoglobin (Bld) [Mass/Vol] 10.8 g/dL 11.8-15.4 [facility] Blood leukocytes automated c ount (number/volume)Ordered By: Misbah Greenwood on 11-12-2021 WBC (Bld) [#/Vol] 12.3 10*3/uL 4.5-11.0 [facility] Body fluid albumin measureme nt (mass/volume)Ordered By: Misbah Greenwood on 11-12-2021 Albumin (Body fld) [Mass/Vol] 3.7 g/dL 3.2-5.5 [facility] COVID-19 SOFIAOrdered By: Kee Greenwood on 11-12-2021 SARS-CoV+SARS-CoV-2 (COVID-19) Ag IA.rapid Ql (Resp) Negative Negative [facility] Comment on above: This is a duplicate Johana SARS Antigen (DEEDEE) result to be used for statistical tracking purpose only. Casts typing in urine sedime nt by light microscopyOrdered By: Misbah Greenwood on 11-12-2021 Casts LM Nom (Urine sed) None seen [LPF] None Seen [facility] Color Auto (U)Ordered By: Kee Greenwood on 11-12-2021 Color (U) Yellow Yellow [facility] Creatinine and Glomerular fi ltration rate.predicted panel (S/P/Bld)Ordered By: Misbah Greenwood on 11-12-2021 Creatinine [Mass/Vol] 1.58 mg/dL 0.44-1.03 [facility] Eosinophils Auto (Bld) [#/Vo l]Ordered By: Misbah Greenwood on 11-12-2021 Eosinophils (Bld) [#/Vol] 0.2 10*3/uL 0.0-0.45 [facility] Eosinophils/100 WBC Auto (Bl d)Ordered By: Misbah Greenwood on 11-12-2021 Eosinophils/100 WBC (Bld) 1.4 % . [facility] Erythrocyte distribution wid th Auto (RBC) [Ratio]Ordered By: Misbah Greenwood on 11-12-2021 Erythrocyte distribution width (RBC) [Ratio] 13.7 % 11.9-15.3 [facility] Estimated glomerular filtrat ion rate (GFR) non- AmericanOrdered By: Misbah Greenwood on 11-12-2021 GFR/1.73 sq M.predicted among non-blacks MDRD (S/P/Bld) [Vol rate/Area] 32 mL/Min [facility] Globulin Calc (S) [Mass/Vol] Ordered By: Misbah Greenwood on 11-12-2021 Globulin (S) [Mass/Vol] 3.0 g/dL [facility] Hematocrit Auto (Bld) [Volum e fraction]Ordered By: Misbah Greenwood on 11-12-2021 Hematocrit (Bld) [Volume fraction] 32.4 % 34.0-46.4 [facility] Ketones Auto test strip (U) [Mass/Vol]Ordered By: Misbah Greenwood on 11-12-2021 Ketones (U) [Mass/Vol] Negative Negative [facility] Laboratory - Chemistry and C hemistry - challengeOrdered By: Misbah Greenwood on 11-12-2021 Lipase [Catalytic activity/Vol] 44.0 U/L 22-51 [facility] - Hematology and Cell countsOrdered By: Misbah Greenwood on 11-12-2021 Nucleated RBC/100 WBC (Bld) [Ratio] 0.0 % 0-0.5 [facility] Lymphocytes Auto (Bld) [#/Vo l]Ordered By: Misbah Greenwood on 11-12-2021 Lymphocytes (Bld) [#/Vol] 0.9 10*3/uL 1.00-4.8 [facility] Lymphocytes/100 WBC Auto (Bl d)Ordered By: Misbah Greenwood on 11-12-2021 Lymphocytes/100 WBC (Bld) 7.5 % . [facility] MCH Auto (RBC) [Entitic mass ]Ordered By: Misbah Greenwood on 11-12-2021 MCH (RBC) [Entitic mass] 29.9 pg 24.7-34.3 [facility] MCHC Auto (RBC) [Mass/Vol]Or dered By: Misbah Greenwood on 11-12-2021 MCHC (RBC) [Mass/Vol] 33.2 g/dL 32.0-35.0 [facility] MCV Auto (RBC) [Entitic vol] Ordered By: Misbah Greenwood on 11-12-2021 MCV (RBC) [Entitic vol] 90.0 fL 80-100 [facility] Monocytes Auto (Bld) [#/Vol] Ordered By: Misbah Greenwood on 11-12-2021 Monocytes (Bld) [#/Vol] 1.0 10*3/uL 0.0-0.8 [facility] Monocytes/100 WBC Auto (Bld) Ordered By: Misbah Greenwood on 11-12-2021 Monocytes/100 WBC (Bld) 8.3 % . [facility] Neutrophils Auto (Bld) [#/Vo l]Ordered By: Misbah Greenwood on 11-12-2021 Neutrophils (Bld) [#/Vol] 10.1 10*3/uL 1.8-7.7 [facility] Neutrophils/100 WBC Auto (Bl d)Ordered By: Misbah Greenwood on 11-12-2021 Neutrophils/100 WBC (Bld) 82.1 % . [facility] Nitrite Test strip Ql (U)Ord ered By: Misbah Greenwood on 11-12-2021 Nitrite Ql (U) Negative Negative [facility] No Panel InformationOrdered By: Misbah Greenwood on 11-12-2021 Estimated GFR () 38 mL/Min [facility] Comment on above: GFR estimated refere nce range: According to KDOQI guidelines, <60 ml/min/1.73m2 is sufficient to diagnose a patient with chronic kidney disease. Pharmacy Creatinine Clearance (Chem 20.67 [facility] SARS Antigen (LFIA) [facility] Platelet mean volume Auto (B ld) [Entitic vol]Ordered By: Misbah Greenwood on 11-12-2021 Platelet mean volume (Bld) [Entitic vol] 7.6 fL 6.3-10.7 [facility] Platelets Auto (Bld) [#/Vol] Ordered By: Misbah Greenwood on 11-12-2021 Platelets (Bld) [#/Vol] 379 10*3/uL 150-450 [facility] Protein Auto test strip (U) [Mass/Vol]Ordered By: Misbah Greenwood on 11-12-2021 Protein (U) [Mass/Vol] Trace mg/dL Negative [facility] Protein [Mass/volume] in Ser um or PlasmaOrdered By: Misbah Greenwood on 11-12-2021 Protein [Mass/Vol] 6.7 g/dL 6.1-7.9 [facility] RBC Auto (Bld) [#/Vol]Ordere d By: Misbah Greenwood on 11-12-2021 RBC (Bld) [#/Vol] 3.59 10*6/uL 3.60-5.00 [facility] Serum or plasma alanine villanueva otransferase measurement without P-5'-P (enzymatic activiOrdered By: Misbah Greenwood on 11-12-2021 ALT No additional P-5'-P [Catalytic activity/Vol] 13 U/L 10-60 [facility] Serum or plasma albumin/glob ulin mass ratioOrdered By: Misbah Greenwood on 11-12-2021 Albumin/Globulin [Mass ratio] 1.2 {ratio} [facility] Serum or plasma alkaline ladarius sphatase measurement (enzymatic activity/volume)Ordered By: Misbah Greenwood on 11-12-2021 ALP [Catalytic activity/Vol] 74 U/L 32-92 [facility] Serum or plasma aspartate am inotransferase measurement (enzymatic activity/volume)Ordered By: Misbah Greenwood on 11-12-2021 AST [Catalytic activity/Vol] 17 U/L 10-42 [facility] Serum or plasma calcium dennis urement (mass/volume)Ordered By: Misbah Greenwood on 11-12-2021 Calcium [Mass/Vol] 9.5 mg/dL 8.2-10.2 [facility] Serum or plasma chloride brea surement (moles/volume)Ordered By: Misbah Greenwood on 11-12-2021 Chloride [Moles/Vol] 103 mmol/L 95-114 [facility] Serum or plasma glucose dennis urement (mass/volume)Ordered By: Misbah Greenwood on 11-12-2021 Glucose [Mass/Vol] 118 mg/dL 70-100 [facility] Comment on above: ADA recommended refe rence range Random Glucose Reference Range is dependent on time and content of last meal. Glucose of more than 200 mg/dL in a nonstressed, ambulatory subject supports the diagnosis of Diabetes Mellitus. Serum or plasma potassium me asurement (moles/volume)Ordered By: Misbah Greenwood on 11-12-2021 Potassium [Moles/Vol] 3.7 mmol/L 3.5-5.1 [facility] Serum or plasma sodium measu rement (moles/volume)Ordered By: Misbah Greenwood on 11-12-2021 Sodium [Moles/Vol] 135 mmol/L 136-146 [facility] Serum or plasma total biliru bin measurement (mass/volume)Ordered By: Misbah Greenwood on 11-12-2021 Bilirubin [Mass/Vol] 0.3 mg/dL 0.3-1.2 [facility] Serum or plasma total carbon dioxide measurement (moles/volume)Ordered By: Misbah Greenwood on 11-12-2021 CO2 [Moles/Vol] 19.9 mmol/L 22.0-30.0 [facility] Serum or plasma urea nitroge n measurement (mass/volume)Ordered By: Misbah Greenwood on 11-12-2021 Urea nitrogen [Mass/Vol] 21 mg/dL 9-23 [facility] Specific gravity Auto test s trip (U) [Rel density]Ordered By: Misbah Greenwood on 11-12-2021 Specific gravity (U) [Rel density] 1.012 1.001-1.03 0 [facility] Squamous epithelial cells de tection in urine sediment by light microscopyOrdered By: Misbah Greenwood on 11-12-2021 Epithelial cells.squamous LM Ql (Urine sed) 5-9 [HPF] 0-2 [facility] Urine bacteria detection by automated methodOrdered By: Misbah Greenwood on 11-12-2021 Bacteria Auto Ql (U) None seen None Seen [facility] Urine clarity by refractomet ry automatedOrdered By: Misbah Greenwood on 11-12-2021 Clarity Refractometry automated (U) Clear Clear [facility] Urine glucose measurement by automated test strip (mass/volume)Ordered By: Misbah Greenwood on 11-12-2021 Glucose Auto test strip (U) [Mass/Vol] Normal mg/dL Normal [facility] Urine hemoglobin detection b y automated test stripOrdered By: Misbah Greenwood on 11-12-2021 Hemoglobin Auto test strip Ql (U) Negative Negative [facility] Urine leukocyte esterase det ection by automated test stripOrdered By: Misbah Greenwood on 11-12-2021 Leukocyte esterase Auto test strip Ql (U) 1+ Negative [facility] Urine sediment renal epithel ial cell count by microscopy (number/high power field)Ordered By: Misbah Greenwood on 11-12-2021 Epithelial cells.renal LM.HPF (Urine sed) [#/Area] None seen [HPF] 0-1 [facility] Urobilinogen Auto test strip (U) [Mass/Vol]Ordered By: Misbah Greenwood on 11-12-2021 Urobilinogen (U) [Mass/Vol] Normal mg/dL Normal [facility] pH Auto test strip (U)Ordere d By: Misbah Greenwood on 11-12-2021 pH (U) 5.5 [pH] 5.0-9.0 [facility] SCREENING MAMMOGRAM W/DANIEL, BILATERAL*on 10-18-2021 SCREENING [...] VERY IMPORTANT TO YOUR HEALTH. THE CURRENT [employer] AND [employer] GUIDELINES RECOMMEND ANNUAL MAMMOGRAPHY BEGINNING AT AGE 40. THIS FACILITY UTILIZES A REMINDER SYSTEM TO ENSURE ALL PATIENTS RECEIVE A REMINDER NOTIFICATION AT THE APPROPRIATE TIME BASED ON THE RECOMMENDATIONS OF THIS EXAM. BOARD CERTIFIED RADIOLOGIST. ACCREDITED BY THE [facility] AND FDA. Report reported and signed by Claudia Hinson on 10/21/2021 1432 Normal [facility] [employer] [facility] CARDIAC STRESS/REST INJE CTIONon 08-28-2021 [facility] CARDIAC STRESS/REST INJECTION Addendum Begins [...] PERFUSION STRESS TEST WITH LEXISCAN Performing facility: [facility], [address] [place] [address], [address], [address] Provider: Mary Ayala MD PCP: Dr. Cruz Supervising provider: Mary Ayala MD INDICATION: CAD; SOBOE Nonischemic cardiomyopathy HISTORY: Gender: F; Age: 81 y/o ; Height: 149.8 cm; Weight: 52.7 kg. High Cholesterol; HTN; SOB; Denies smoking. COMPARISON: Previous nuclear testing completed [id number] at [facility]. ACCESSION NUMBER(S): [id number]; [id number]; [id number] ORDERING CLINICIAN: MARY AYALA TECHNIQUE: ONE DAY [...] Electronically signed by: MARK ZAMBRANO MD Normal [facility] No Panel Informationon 08-28 Normal -[facility] 250 DO Work Phone: -[facility] 250 DO Work Phone: Office [...] 07Jun2021 03:06PM Heart Rate60, L Brachial Artery Hlhmaqro598, LUE, Sitting Qaaazqglj33, LUE, Sitting Height4 ft 11 in Lsbrol319 lb BMI Eibvoqftbt32.61 kg/m2 BSA Calculated1.41 Tobacco Useb) No PHQ-2 [...] Cardiovascular: carotid (more content not included)... Normal [employer] Tobacco Screening.on 022 Adult depression screening assessment No [facility] 250 DO Work Phone: Fall risk assessment a) No falls within the last year [facility] [employer] y 250 DO Work Phone: Tobacco use status CP b) No [facility] [employer] [facility] 250 DO Work Phone: Tobacco Screening.on 021 Fall risk assessment a) No falls within the last year [facility] [employer] [facility] 250 DO Work Phone: Tobacco use status CPHS b) No [facility] [employer] [facility] 250 DO Work Phone: No Panel Informationon 09-24 [facility] rology-Carlos [facility] 450 DO Work Phone: [email or web address]} [facility]log[facility]-Westla [facility] 450 DO Work Phone: [facility]astro[facility] rology-Westla [facility] 450 DO Work Phone: Order Reconciliationon 09-24 [...] mcg) oral capsule 1 cap(s) orally Normal [facility] Coronavirus 2019 RNA by PCR, Screening Asymptomticon 09-21-2020 Coronavirus 2019 RNA by PCR, Screening Asymptomtic Not detected Normal See Below [facility] Work Phone: Comment on above: [...] make patient management decisions.Fact sheet for providers: https://www.fda.gov/media/713473/downloadFact sheet for patients: https://www.fda.gov/media/239018/downloadThis test has received FDA Emergency Use Authorization (EUA) and has been verified by [facility] ([facility]). This test is only authorized for the duration of time that circumstances exist to justify the authorization of the emergency use of in vitro diagnostic tests for the detection of SARS-CoV-2 virus and/or diagnosis of COVID-19 infection under section 564(b)(1) of the Act, 21 U.S.C. 360bbb-3(b)(1), unless the authorization is terminated or revoked sooner. [facility] is certified under CLIA-88 as qualified to perform high complexity testing. Testing is performed in the [facility] laboratories located at [address] [place] [address]. ED NOTEon 04-08-2019 ED NOTE HNO ID: [id number] Author: Maria Teresa (Rn) LINA Oliver Service: ? Author Type: Registered Nurse Type: ED Notes Filed: 04/08/2019 7:07 PM Note Text: Patient discharged per MD orders, RN at bedside to explain and review s/sx of worsening condition and to return to ED if worsening s/sx develop. Follow up care and questions answered with patient/family. [facility] ED NOTE HNO ID: [id number] Author: Lenore Casey (Rn) LINA Moyer Service: ? Author Type: Registered Nurse Type: ED Notes Filed: 04/08/2019 5:16 PM Note Text: Bed: ED-11H Expected date: Expected time: Means of arrival: Comments: [facility] ED NOTE HNO ID: [id number] Author: Maribell (Medic) Rebecca Hansen Service: ? Author Type: Bowling Ball Assembler and Machine Tool Technology Instructor Type: ED Notes Filed: 04/08/2019 4:59 PM Note Text: Past 2 days left ear pain. Went to urgent care and her BP was high so sent here. [facility] ED PROV NOTEon 04-08-2019 ED PROV NOTE HNO ID: [id number] Author: Elenita Castillo Service: Emergency Medicine Author Type: Physician Water Pollution Specialist Type: ED Provider Notes Filed: 04/09/2019 3:31 [...] of the extremities. History provided by: Patient cleaner touch up worker used: No PAST MEDICAL HISTORY Diagnosis Date - Asthma - CAD (coronary artery disease) - Chronic cough due to asthma - Dyslipidemia - GERD (gastroesophageal reflux disease) - Hypertension - [place], old - MRSA infection - Myocarditis (HCC) PAST SURGICAL HISTORY Procedure Laterality Date - BACK SURGERY HX - CHOLECYSTECTOMY - COLONOSCOPY 2014 -was told she does not need anothe one-done in [place] - EGD 08/17/2018 /Normal - VALENTIN W/WO [...] or wounds Nose: Nose normal. Mouth/Throat: Lips: [place]. Mouth: Mucous membranes are moist. Pharynx: Oropharynx [...] SIGNATURE: STEVIE Solano Pa-C 04/09/19 1531 Normal [facility] Vital Signs Date Time Vital Sign Value Performing Clinician Facility 05-07-2023 09:00-0500 Body mass index (BMI) [Ratio] 22.38 kg/m2 Adriana Tirado-Esmeralda DO Work Phone: [facility] 05-07-2023 09:00-0500 Body weight 50.26 kg Adriana Tirado-Esmeralda DO Work Phone: [facility] 05-07-2023 09:00-0500 Diastolic blood pressure 68 mm[Hg] Adriana Tirado-Esmeralda DO Work Phone: [facility] 05-07-2023 09:00-0500 Heart rate 81 /min Adriana Tirado-Iván DO Work Phone: [facility] 05-07-2023 09:00-0500 SaO2% (BldA) [Mass fraction] 99 % Adriana Tirado-Esmeralda DO Work Phone: [facility] 05-07-2023 09:00-0500 Systolic blood pressure 116 mm[Hg] Adriana Tirado-Iván DO Work Phone: [facility] 02-11-2023 09:05-0500 Body height 152.4 cm Eliecer Gray Other [employer] Other 02-11-2023 09:05-0500 Body mass index (BMI) [Ratio] 20.5 kg/m2 Eliecer Gray Other [employer] Other 02-11-2023 09:05-0500 Body temperature 97.7 [degF] Eliecer Gray Other [employer] Other 02-11-2023 09:05-0500 Body weight 47.63 kg Eliecer Gray Other [employer] Other 02-11-2023 09:05-0500 Diastolic blood pressure 93 mm[Hg] Eliecer Isaac Other [employer] Other 02-11-2023 09:05-0500 Respiratory rate 18 /min Eliecer Gray Other [employer] Other 02-11-2023 09:05-0500 SaO2% (BldA) [Mass fraction] 97 % Eliecer Gray Other [employer] Other 02-11-2023 09:05-0500 Systolic blood pressure 166 mm[Hg] Eliecer Gray Other [employer] Other 02-02-2023 11:06-0400 Body height 142.2 cm Nick Wasserman MD Work Phone: [facility] 02-02-2023 11:06-0400 Body mass index (BMI) [Ratio] 24.21 kg/m2 Nick Wasserman MD Work Phone: [facility] 02-02-2023 11:06-0400 Body weight 48.99 kg Nick Wasserman MD Work Phone: [facility] 02-02-2023 11:06-0400 Diastolic blood pressure 58 mm[Hg] Nick Wasserman MD Work Phone: [facility] 02-02-2023 11:06-0400 Heart rate 60 /min Nick Wasserman MD Work Phone: [facility] 02-02-2023 11:06-0400 Systolic blood pressure 138 mm[Hg] Nick Wasserman MD Work Phone: [facility] 08-30-2022 10:55-0400 Body height 152.4 cm Luis Nolasco Other [employer] Other 08-30-2022 10:55-0400 Body mass index (BMI) [Ratio] 20.7 kg/m2 Luis Nolasco Other [employer] Other 08-30-2022 10:55-0400 Body temperature 97.8 [degF] Luis Nolasco Other [employer] Other 08-30-2022 10:55-0400 Body weight 48.08 kg Luis Nolasco Other [employer] Other 08-30-2022 10:55-0400 Diastolic blood pressure 70 mm[Hg] Luis Nolasco Other [employer] Other 08-30-2022 10:55-0400 Respiratory rate 18 /min Luis Nolasco Other [employer] Other 08-30-2022 10:55-0400 SaO2% (BldA) [Mass fraction] 97 % Luis Nolasco Other [employer] Other 08-30-2022 10:55-0400 Systolic blood pressure 123 mm[Hg] Luis Nolasco Other [employer] Other 03-06-2022 15:48-0500 Diastolic blood pressure 72 mm[Hg] Adriana Murphy Tirado-Esmeralda Work Phone: [facility] [employer] 250 DO Work Phone: 03-06-2022 15:48-0500 Systolic blood pressure 136 mm[Hg] Adriana Katherine Tirado-Esmeralda Work Phone: [facility] [employer] 250 DO Work Phone: 03-06-2022 15:25-0500 Body height 144.78 cm Adriana Katherine Tirado-Esmeralda Work Phone: [facility] [employer] 250 DO Work Phone: 03-06-2022 15:25-0500 Body mass index (BMI) [Ratio] 23.37 kg/m2 Adriana Murphy Tirado-Esmeralda Work Phone: [facility] 250 DO Work Phone: 03-06-2022 15:25-0500 Body surface area Derived from formula 1.38 m2 Adriana Murphy Tirado-Esmeralda Work Phone: [facility] 250 DO Work Phone: 03-06-2022 15:25-0500 Body weight 48.99 kg Adriana Murphy Tirado-Esmeralda Work Phone: [facility] 250 DO Work Phone: 03-06-2022 15:25-0500 Diastolic blood pressure 64 mm[Hg] Adriana Murphy Tirado-Esmeralda Work Phone: [facility] 250 DO Work Phone: 03-06-2022 15:25-0500 Heart rate 66 /min Adriana Murphy Tirado-Esmeralda Work Phone: [facility] 250 DO Work Phone: 03-06-2022 15:25-0500 Systolic blood pressure 154 mm[Hg] Adriana Murphy Tirado-Esmeralda Work Phone: [facility] 250 DO Work Phone: 01-17-2022 10:25-0400 [...] 07:50-0400 Body temperature 98.06 [degF] Govea SALAM [facility] 01-10-2022 10:48-0400 Diastolic blood pressure 64 mm[Hg] Shi Sundeep [facility] 01-10-2022 10:48-0400 Mean blood pressure 95 mm[Hg] Shi Sundeep [facility] 01-10-2022 10:48-0400 Systolic blood pressure 158 mm[Hg] Shi Sundeep [facility] 01-10-2022 10:44-0400 Blood Pressure Location Shi Sundeep [facility] 01-10-2022 10:44-0400 Body temperature 97.34 [degF] Shi Sundeep [facility] 01-10-2022 10:44-0400 Diastolic blood pressure 73 mm[Hg] Shi Sundeep [facility] 01-10-2022 10:44-0400 Heart rate 51 /min Shi Sundeep [facility] 01-10-2022 10:44-0400 Systolic blood pressure 167 mm[Hg] Shi Sundeep [facility] 11-13-2021 00:00-0400 Diastolic blood pressure 68 mm[Hg] DO Adriana Tirado-Esmeralda Work Phone: [facility] 11-13-2021 00:00-0400 Heart rate 62 /min DO Adriana Tirado-Esmeralda Work Phone: [facility] 11-13-2021 00:00-0400 Respiratory rate 18 /min DO Adriana Tirado-Esmeralda Work Phone: [facility] 11-13-2021 00:00-0400 SaO2% (BldA) [Mass fraction] 100 % DO Adriana Tirado-Esmeralda Work Phone: [facility] 11-13-2021 00:00-0400 Systolic blood pressure 133 mm[Hg] DO Adriana Tirado-Esmeralda Work Phone: [facility] 11-12-2021 18:52-0400 Body height 144.78 cm DO Adriana Tirado-Esmeralda Work Phone: [facility] 11-12-2021 18:52-0400 Body temperature 98.1 [degF] DO Adriana Tirado-Esmeralda Work Phone: [facility] 11-12-2021 18:52-0400 Body weight 45.35 kg DO Adriana Tirado-Esmeralda Work Phone: [facility] 08-29-2021 10:00-0400 Body height 152.4 cm Clement Diallole II Other [facility] [employer] Other 08-29-2021 10:00-0400 Body mass index (BMI) [Ratio] 20.5 kg/m2 Clement [place] II Other [employer] Other 08-29-2021 10:00-0400 Body weight 47.63 kg Clement [place] II Other [place] [email or web address] Other 08-28-2021 00:00-0400 65 1 Adriana D Tirado-Esmeralda Work Phone: [facility] 250 DO Work Phone: Comment on above: [id number] 08-25-2021 12:25-0400 Body height 152.4 cm Eliecer Gray Other [employer] Other 08-25-2021 12:25-0400 Body mass index (BMI) [Ratio] 20.5 kg/m2 Eliecer Gray Other [employer] Other 08-25-2021 12:25-0400 Body temperature 97 [degF] Eliecer Gray Other [employer] Other 08-25-2021 12:25-0400 Body weight 47.63 kg Eliecer Gray Other [employer] Other 08-25-2021 12:25-0400 Diastolic blood pressure 67 mm[Hg] Eliecer Gray Other [employer] Other 08-25-2021 12:25-0400 Respiratory rate 16 /min Eliecer Gray Other [employer] Other 08-25-2021 12:25-0400 SaO2% (BldA) [Mass fraction] 96 % Eliecer Gray Other [employer] Other 08-25-2021 12:25-0400 Systolic blood pressure 141 mm[Hg] Eliecer Gray Other [employer] Other 06-07-2021 15:06-0500 Body height 149.86 cm Adriana Tirado-Esmeralda Work Phone: [employer] [employer] 250 DO Work Phone: 06-07-2021 15:06-0500 Body mass index (BMI) [Ratio] 21.61 kg/m2 Adriana Changaver-Esmeralda Work Phone: [facility] 250 DO Work Phone: 06-07-2021 15:06-0500 Body surface area Derived from formula 1.41 m2 Adriana Murphy Tirado-Esmeralda Work Phone: [facility] 250 DO Work Phone: 06-07-2021 15:06-0500 Body weight 48.54 kg Adriana Murphy Tirado-Esmeralda Work Phone: [facility] 250 DO Work Phone: 06-07-2021 15:06-0500 Diastolic blood pressure 62 mm[Hg] Adriana Murphy Tirado-Esmeralda Work Phone: [facility] 250 DO Work Phone: 06-07-2021 15:06-0500 Heart rate 60 /min Adriana Murphy Tirado-Esmeralda Work Phone: [facility] 250 DO Work Phone: 06-07-2021 15:06-0500 Systolic blood pressure 125 mm[Hg] Adriana Murphy Tirado-Esmeralda Work Phone: [facility] 250 DO Work Phone: 03-05-2021 10:47-0500 Body height 149.86 cm Adriana Murphy Tirado-Esmeralda Work Phone: [facility] 250 DO Work Phone: 03-05-2021 10:47-0500 Body mass index (BMI) [Ratio] 22.02 kg/m2 Adriana Katherine Tirado-Esmeralda Work Phone: [facility] 250 DO Work Phone: 03-05-2021 10:47-0500 Body surface area Derived from formula 1.42 m2 Adriana Murphy Tirado-Esmeralda Work Phone: [facility] 250 DO Work Phone: 03-05-2021 10:47-0500 Body weight 49.44 kg Adriana D Tirado-Esmeralda Work Phone: [facility] 250 DO Work Phone: 03-05-2021 10:47-0500 Diastolic blood pressure 66 mm[Hg] Adriana D Tirado-Esmeralda Work Phone: [facility] 250 DO Work Phone: 03-05-2021 10:47-0500 Heart rate 59 /min Adriana D Tirado-Esmeralda Work Phone: [facility] 250 DO Work Phone: 03-05-2021 10:47-0500 Systolic blood pressure 127 mm[Hg] Adriana D Tirado-Esmeralda Work Phone: [facility] 250 DO Work Phone: Encounters Encounter Date Encounter Type Care Provider Facility Start: 05-07-2023 End: 05-07-2023 ambulatory ADRIANA D TIRADO-EMERY Not Available Start: 05-07-2023 End: 05-07-2023 Office outpatient visit 15 minutes Adriana D Tirado-Esmeralda DO Work Phone: [facility] Comment on above: Osteoporosis, post-m enopausal (CMS/HCC) (Primary Dx) Start: 04-16-2023 End: 04-17-2023 ambulatory ADRIANA D TIRADO-EMERY Not Available Start: 04-10-2023 End: 04-11-2023 ambulatory ADRIANA D TIRADO-EMERY Not Available Start: 03-04-2023 End: 03-04-2023 ambulatory VALENTÍN D DOLCE Not Available Start: 02-18-2023 End: 02-18-2023 ambulatory ADRIANA D TIRADO-EMERY Not Available Start: 02-11-2023 Office outpatient vi sit 15 minutes Eliecer [facility] Start: 02-11-2023 End: 02-11-2023 ambulatory Eliecer Gray Facility:[facility] Start: 02-11-2023 End: 02-11-2023 ambulatory DO Adriana Cruz Work Phone: [facility] Work Phone: Start: 02-11-2023 End: 02-11-2023 Departed Referred DO Adriana Cruz Work Phone: [facility] 250 Start: 02-02-2023 End: 02-02-2023 ambulatory Adriana Cruz Facility:[facility] Start: 02-02-2023 End: 02-02-2023 ambulatory DO Adriana Cruz Work Phone: [facility] Work Phone: Start: 02-02-2023 End: 02-02-2023 Patient encounter procedure DO Adriana Cruz Work Phone: [facility] [place] Work Phone: Start: 02-02-2023 End: 02-02-2023 Office outpatient visit 25 minutes Nick Wasserman MD Work Phone: [facility] Comment on above: Coronary artery dise ase involving [place] coronary artery of [place] heart without angina pectoris (Primary Dx); Essential hypertension, benign; Mixed hyperlipidemia; Nonischemic cardiomyopathy (CMS/HCC) Start: 12-18-2022 End: 12-18-2022 ambulatory Savanna Cassidy Other [employer] Other Start: 12-18-2022 Office outpatient vi sit 15 minutes Savanna Cassidy [facility] Start: 08-30-2022 End: 08-30-2022 ambulatory Luis Nolasco Other [employer] Other Start: 08-30-2022 Office outpatient vi sit 15 minutes Luis Nolasco [facility] Start: 05-14-2022 Chart Update Adriana Changaver-Esmeralda Work Phone: [facility] 250 DO Work Phone: Start: 03-06-2022 Office outpatient vi sit 15 minutes Adriana Changaver-Esmeralda Work Phone: [facility] 250 DO Work Phone: Start: 03-06-2022 ambulatory Nick Wasserman II Facility: Start: 03-03-2022 End: 03-04-2022 ambulatory Jay Power Facility:[facility] Start: 02-25-2022 ambulatory Adriana Tirado-Iván Facility: Start: 02-24-2022 End: 02-25-2022 ambulatory Jay EMerrill Power [facility] Start: 02-19-2022 End: 02-19-2022 ambulatory Jay Power Facility[facility] Start: 02-04-2022 ambulatory Adriana Tirado-Iván Facility: Start: 02-04-2022 End: 02-05-2022 ambulatory Jay Power Facility[facility] Start: 02-03-2022 End: 02-04-2022 ambulatory Jay Power Facility:[facility] Start: 01-17-2022 End: 01-18-2022 ambulatory Jeferson COPE Facility[facility] Start: 01-17-2022 End: 01-17-2022 Patient encounter procedure Jeferson COPE [facility] Start: 01-13-2022 End: 01-14-2022 ambulatory Shi Urbano Facility:[facility] Start: 01-10-2022 End: 01-11-2022 ambulatory Shi Urbano Facility:[facility] Start: 01-10-2022 End: 01-11-2022 ambulatory Shi Urbano Facility:[facility] Start: 01-10-2022 Rx Renewal Adriana Changaver-Esmeralda Work Phone: [facility] 250 DO Work Phone: Start: 01-10-2022 End: 01-10-2022 Patient encounter procedure Shi Urbano [facility] Start: 12-24-2021 ambulatory Adriana Billie Tirado-Esmeralda Facility:[id number] Start: 11-14-2021 ambulatory Shi Urbano Facili ty:[facility] Start: 11-12-2021 End: 11-13-2021 Emergency department patient visit DO Adriana Tirado-Esmeralda Work Phone: [facility] Start: 08-30-2021 Chart Update Adriana Murphy Tirado-Esmeralda Work Phone: [facility] 250 DO Work Phone: Start: 08-29-2021 End: 08-29-2021 ambulatory Clement [place] II Other [place] [email or web address] Other Start: 08-29-2021 Office outpatient ne w 45 minutes Clement [place] II [facility] [place] [facility] Start: 08-28-2021 ambulatory Adriana Billie Tirado-Esmeralda Facility:[id number] Start: 08-25-2021 End: 08-25-2021 ambulatory Eliecer Gray Other [place] [email or web address] Other Start: 08-25-2021 Office outpatient vi sit 15 minutes Eliecer Gray [facility] Start: 08-08-2021 Patient encounter procedure Adriana Murphy Tirado-Esmeralda Work Phone: [facility] 600 DO Work Phone: Start: 06-07-2021 Office outpatient vi sit 25 minutes Adriana Murphy Tirado-Esmeralda Work Phone: [facility] 250 DO Work Phone: Start: 06-07-2021 ambulatory Adriana Billie Tirado-Esmeralda Facility: Start: 03-05-2021 Office outpatient vi sit 25 minutes Adriana Tirado-Esmeralda Work Phone: -[facility] 250 DO Work Phone: Start: 09-28-2020 Chart Update Adriana Changaver-Esmeralda Work Phone: PH-Eavhjhduwhbalnps-Hc [place] 450 DO Work Phone: Start: 09-24-2020 EUSANS, Provider: Vilma Salazar, Status: Pen, Time: 9:20 AM Adriana Murphy Tirado-Esmeralda Work Phone: UF-Yxvokqfthmysfvcg-De [place] 450 DO Work Phone: Start: 09-23-2020 Chart Update Adriana Murphy Tirado-Esmeralda Work Phone: BO-Iiogvtgvgiuidbcn-Bd [place] 450 DO Work Phone: Procedures Date Procedure Procedure Detail Performing Clinician Start: 01-17-2022 Colonoscopy Jeferson COPE Comment on above: biopsies, diverticulosis Start: 11-12-2021 Computed tomography of abdomen and pelvis with contrast DO Adriana Tirado-Iván Work Phone: Start: 07-06-2020 Esophagogastroduodenoscopy Shi diana Comment on above: Dr Brannon Arthroplasty of knee Adriana Murphy Tirado-Esmeralda Work Phone: Cholecystectomy Adriana Murphy Tirado-Esmeralda Work Phone: Colonoscopy Shi Urbano Comment on above: 2010 Esophagogastroduodenoscopy M taylor COPE Comment on above: normal, gastric biopsies Hysterectomy Adriana Katherine Tirado-Esmeralda Work Phone: Operation on bladder Adriana Katherine Tirado-Esmeralda Work Phone: Procedure on back Adriana Cruz [...] procedure 09/15/2023 9:30 AM EDT Office Visit [facility] [address] [place] [id number] Nick Wasserman MD [address] [place] [address] [facility] Start: 09-08-2023 End: 09-08-2023 Patient encounter procedure 09/08/2023 8:45 AM EDT Office Visit [facility] [address] [place] [id number] Luis A Adriana Katherine, DO [address] [place] [address] [facility] Start: 02-11-2023 Bacteria identified in Urine by Culture [facility] Start: 02-02-2023 End: 02-03-2024 Basic metabolic 2000 panel - Serum or Plasma Basic Metabolic Panel Lab Routine Nonischemic cardiomyopathy (CMS/HCC) Expected: 02/02/2023 (Approximate), Expires: 02/03/2024 [facility] [[email or web address] Service Area Work Phone: Comment on above: Expected: 02/02/2023 (Approximate), Expires: 02/03/2024 Start: 02-02-2023 End: 02-03-2024 CBC panel - Blood by Automated count CBC Lab Routine Nonischemic cardiomyopathy (CMS/HCC) Expected: 02/02/2023 (Approximate), Expires: 02/03/2024 [facility] Work Phone: Comment on above: Expected: 02/02/2023 (Approximate), Expires: 02/03/2024 Start: 02-02-2023 End: 02-03-2024 Lipid 1996 panel - Serum or Plasma Lipid Panel Lab Routine Mixed hyperlipidemia Expected: 02/02/2023 (Approximate), Expires: 02/03/2024 [facility] Work Phone: Comment on above: Expected: 02/02/2023 (Approximate), Expires: 02/03/2024 Start: 10-28-2022 FUV, Provider: Nick Wasserman, Status: Pen, Time: 9:40 AM FUV, Provider: Nick Wasserman, Status: Pen, Time: 9:40 AM [facility] 250 DO Work Phone: Start: 03-06-2022 FUV, Provider: Nick Wasserman, Status: Pen, Time: 3:10 PM FUV, Provider: Nick Wasserman, Status: Pen, Time: 3:10 PM [facility] 250 DO Work Phone: Start: 02-25-2022 COVID-19 Vaccine (4 - Moderna series) COVID-19 Vaccine (4 - Moderna series) [place] [facility] Start: 12-24-2021 FUV, Provider: Nick Wasserman, Status: Pen, Time: 11:20 AM FUV, Provider: Nick Wasserman, Status: Pen, Time: 11:20 AM [facility] 250 DO Work Phone: Start: 08-28-2021 STRESS NUC, Provider : [place] HHVI NUCLEAR 01,[id number], Status: Pen, Time: 12:00 PM STRESS NUC, Provider: [place] HHVI NUCLEAR 01,[id number], Status: Pen, Time: 12:00 PM [facility] 600 DO Work Phone: Start: 06-07-2021 FUV, Provider: Nick Wasserman, Status: Pen, Time: 3:10 PM FUV, Provider: Nick Wasserman, Status: Pen, Time: 3:10 PM [facility] 250 DO Work Phone: Start: 11-23-2020 VIRROXANNE, Provider : Estefanía Iyer, Status: Pen, Time: 9:30 AM VIRNPVFELICIANOE, Provider: Estefanía Iyer, Status: Pen, Time: 9:30 AM -Gastroenterology- [place] 450 DO Work Phone: Start: 1964 DTaP/Tdap/Td Vaccine s (1 - Tdap) DTaP/Tdap/Td Vaccines (1 - Tdap) [place] [facility] Start: 1940 Lipid panel Lipid Panel [facility] Start: 1940 Medicare Annual Wellness Visit Medicare Annual Wellness Visit (AWV) [facility] Start: 1940 Screening for osteoporosis Bone Density Scan [facility] Patient Education Dehydration, Adult (DC) [facility] Work Phone: Patient referral [facility] Work Phone: Immunizations Immunization Date Immunization Notes Care Provider Sheryl luevano 01-16-2023 Influenza, Seasonal, Quadrivalent, Adjuvanted Nick Wasserman MD Work Phone: [place] [facility] 01-11-2022 Fluzone High-Dose Quadrivalent 0.7 ML Intramuscular Suspension Prefilled Syringe Adriana Cruz Work Phone: [facility] 250 DO Work Phone: 12-31-2021 Moderna Bivalent Booster Vaccination Adriana Cruz DO Work Phone: [facility] 12-31-2021 Pfizer COVID-19 Vac Bivalent 30 MCG/0.3ML Intramuscular Suspension Adriana Cruz Work Phone: [facility] 250 DO Work Phone: 10-18-2021 Prevnar 20 0.5 ML Intramuscular Suspension Prefilled Syringe Adriana Tirado-Esmeralda Work Phone: [facility] 250 DO Work Phone: 04-03-2021 Moderna COVID-19 Vaccine 100 MCG/0.5ML Intramuscular Suspension Adriana D Tirado-Esmeralda [facility] Work Phone: 02-26-2021 influenza, high dose seasonal, preservative-free Adriana D Tirado-Esmeralda [facility] Work Phone: 05-30-2020 Moderna COVID-19 Vaccine 100 MCG/0.5ML Intramuscular Suspension Adriana Katherine Tirado-Esmeralda Work Phone: [facility] Comment on above: Reason for Medicatio n: Other (see comment) 05-07-2020 Moderna SARS-CoV-2 Vaccination Nick Wasserman MD Work Phone: [place] [facility] Work Phone: 05-02-2020 Moderna COVID-19 Vaccine 100 MCG/0.5ML Intramuscular Suspension Adriana Murphy Tirado-Esmeralda Work Phone: [facility] Comment on above: Reason for Medicatio n: Other (see comment) 04-02-2020 zoster vaccine recombinant Adriana D Tirado-Esmeralda Work Phone: [facility] DO Work Phone: 02-01-2020 zoster vaccine recombinant Adriana D Tirado-Esmeralda Work Phone: [place] [facility] 12-30-2019 Fluzone High-Dose Quadrivalent 0.7 ML Intramuscular Suspension Prefilled Syringe Adriana D Tirado-Esmeralda Work Phone: [place] [facility] 01-04-2019 influenza, high dose seasonal, preservative-free Adriana Cruz Work Phone: [place] [facility] 12-18-2017 influenza, high dose seasonal, preservative-free Adriana Cruz Work Phone: [place] [facility] 11-18-2015 pneumococcal polysaccharide vaccine, 23 valent Adriana Cruz DO Work Phone: [facility] NEGATED: Highlighted row has not occurred!01-10-2022 influenza virus vaccine, unspecified formulation Shi Urbano [facility] Health Payers Date Payer Category Payer Self-pay [id number] 2022 Medicare [id number] 2020 Private Health Insurance [id number] 2019 Unknown 2019 Unknown [id number] 2.16. 840.1.792693.19 1942 Unknown [id number] 2.16.8 40.1.475250.3.579.2.727 1942 Unknown [id number] 2.16.8 40.1.332974.3.579.2.727 1942 Unknown [id number] 2.16.8 40.1.235554.3.579.2.727 1942 Unknown [id number] 2.16.8 40.1.185936.3.579.2.727 1942 Unknown [id number] 2.16.8 40.1.196994.3.579.2.727 1942 Unknown [id number] 2.16.8 40.1.231086.3.579.2.727 1942 Unknown [id number] 2.16.8 40.1.044603.3.579.2.727 1942 Unknown [id number] 2.16.8 40.1.498098.3.579.2.727 1942 Unknown [id number] 2.16.8 40.1.978284.3.579.2.727 1942 Unknown [id number] 2.16.8 40.1.908283.3.579.2.727 1942 Unknown [id number] 2.16. 840.1.500411.3.579.2.356 1942 Unknown [id number] 2.16. 840.1.491561.3.579.2.356 1942 Unknown [id number] 2.16. 840.1.463925.3.579.2.356 1942 Unknown [id number] 2.16. 840.1.602585.3.579.2.356 1942 Unknown [id number] 2.16. 840.1.691957.3.579.2.356 1942 Unknown [id number] 2.16. 840.1.039773.3.579.2.356 1942 Unknown [id number] 2.16.8 40.1.556097.3.579.2.1244 1942 Unknown [id number] 2.16.84 0.1.309677.3.579.2.1259 1942 Unknown [id number] 2.16.84 0.1.663986.3.579.2.1259 1942 Unknown [id number] 2.16.84 0.1.722551.3.579.2.1259 1942 Unknown [id number] 2.16.84 0.1.097125.3.579.2.1259 1942 Unknown [id number] 2.16.840 .1.613006.3.579.2.1259 1942 Unknown [id number] 2.16.840. 1.665959.3.579.2.1259 Medicare [id number] Medicare Medicare [id number] Unknown [id number] 2.16.8 40.1.617706.3.579.2.531 Unknown [id number] 2.16.8 40.1.219219.3.579.2.531 Social History Date Type Detail Facility Start: 12-09-2022 End: 02-02-2023 Daily caffeine consumption Daily caffeine consumption [facility] Comment on above: tea and a dr. dunbar ; Start: 12-09-2022 End: 02-02-2023 Sex Assigned At [employer] Other Start: 11-12-2021 End: 10-16-2022 Tobacco smoking status NHIS Never smoked tobacco (finding) [facility] Start: 1940 Sex Assigned At Female F [facility] Tobacco smoking status Never [facility] Start: 10-16-2022 End: 02-02-2023 Tobacco use and exposure Smokeless tobacco non-user [facility] Work Phone: Start: 02-02-2023 Alcohol intake Lifetime non-d arcelia (finding) [facility] Work Phone: Start: 1940 Sex Assigned At Not on file [facility] Work Phone: Start: 01-23-2023 End: 02-02-2023 Exposure to SARS-CoV-2 (event) Not sure [facility] Start: 05-07-2023 Alcohol intake Current drinke [...] Comment 1-2 drinks mon thly or less [facility] Start: 03-04-2023 Gender identity Identifies as female gender (finding) [facility] Functional Status Date Assessment Result Facility 01-17-2022 Functional Status N/A Chivo Brown [facility] 01-10-2022 Functional Status N/A [facility]helsie [facility] Clinical Notes 08-25-2021 to 05-07-2023 [...] daily with a meal; Certain patients require 9561-7456 international units daily and in patients deficient [...] bones. Studies show approximately 50% of [place] men and women are vitamin D deficient [...] Anemia Chronic cough Chronic GERD Essential hypertension ([facility]) History of skin cancer Hyperlipidemia LDL goal <70 ([facility]) Major depressive disorder, single episode, moderate ([facility]) ([facility] Mild asthma without complication ([facility]) Non-ischemic cardiomyopathy ([facility]) Osteoporosis, post-menopausal ([facility]) Overactive bladder Stage 3b chronic kidney disease (HCC) ([facility]) CAD (coronary artery disease) ([facility]) Arthritis of left foot Arthritis of left [...] List Items Addressed This Visit Osteoporosis, post-menopausal ([facility]/HCC) - Primary Overview DEXA 04/16/2023: T-scores: L1-4= [...] daily with a meal; Certain patients require 2315-2879 international units daily and in patients deficient [...] bones. Studies show approximately 50% of [place] men and women are vitamin D deficient [...] follow up. Adriana Cruz D.O. Board Certified Chlorine Cell Tender documented in this encounter [facility] 05-07-2023 Instructions Adriana Cruz DO - 05/07/2023 [...] daily with a meal; Certain patients require 2627-9773 international units daily and in patients deficient [...] bones. Studies show approximately 50% of [place] men and women are vitamin D deficient [...] in several forms. documented in this encounter [facility] 04-16-2023 Note CLINICAL HISTORY: axel ne density [...] She understands and agrees with the plan. [employer] Other 10-30-2023 History of Present illness Narrative* [...] Rfl: Assessment/Plan 1. Coronary artery disease involving [place] coronary artery of [place] heart without angina pectoris Stable, I doubt progression based upon her symptoms (and lack thereof). 2. Essential hypertension, benign Well-controlled on current therapy 3. Mixed hyperlipidemia Well-controlled on current therapy 4. Nonischemic cardiomyopathy (CMS/HCC) No manifestations of heart failure detectable today. documented in this [facility] Work Phone: 1(684) 527-193210-30-2023 Instructions* Patient Instructions* Dante Jacob MA - [...] time of your visit. [facility] Work Phone: 1(685) 416-753509-14-2023 Evaluation note* Encounter Date Diagnosis Assessment Notes Treatment Notes Treatment Clinical Notes Dec, Arthritis of left knee (ICD-10 - M17.12) Patient was prepped and coritone was injected into the left knee under sterile conditions. Patient tolerated well with no adverse reactions. Activity as tolerate. [employer] Other 05-27-2023 Evaluation note* Encounter Date Diagnosis [...] Pt understood and agreed to treatment plan. [employer] Other 12-06-2022 NoteAdmission and Discharge Information Admitting [...] levels flattened. Cardiology consultation was placed at [facility] cardiology group Dr. Wasserman who patient typically [...] 73.9 % Lymph Auto - 12.3 % Kent Auto - 7.4 % Eos Auto - 3.6 % Basophil Auto - 2.8 % Neutro Absolute - 6.2 E9/L Lymph Absolute - 1.0 E9/L [place] Absolute - 0.6 E9/L Eos Absolute - [...] 1+ U (more content not included)...[facility]: Result Comment: Electronically Signed By: Yolanda SALAS\.br\Date and Time Signed: 03/10/22 20:44 EST\.br\Electronically Co-Signed By: Pantera QUICK MD\.br\Date and Time Co-Signed: 03/11/2210:53 [id number] NoteMicrobiology PROCEDURE: Blood Culture Charcoal [R1] SOURCE: Blood BODY SITE: Arm R COLLECTED DATE/TIME: 02/24/2022 13:54 EST RECEIVED DATE/TIME: 02/24/2022 14:07 EST START DATE/TIME: 02/24/2022 14:07 EST FREE TEXT SOURCE: Jay Emery DO, DO, John FINAL REPORTS Final Report [] Verified Date/Time: 03/03/2022 18:00 EST No growth at 7 days. Performing Locations R1: [facility], [address] [place] [address], [id number] , , [address] HospitalComment on above:Performed By: #### [id number] #### [address] [id number] NoteMicrobiology PROCEDURE: Blood Culture Charcoal [R1] SOURCE: Blood BODY SITE: Arm L COLLECTED DATE/TIME: 02/24/2022 13:44 EST RECEIVED DATE/TIME: 02/24/2022 14:08 EST START DATE/TIME: 02/24/2022 14:08 EST FREE TEXT SOURCE: AVERY Emery DO, Jay Emery DO, Jay FINAL REPORTS Final Report [] Verified Date/Time: 03/03/2022 18:00 EST No growth at 7 days. Performing Locations R1: This test was performed at: [facility], [address] [place] [address], [id number], [address]ftx[address] [facility] [address] HospitalComment on above:Performed By: #### [id number] ####[facility] [address] [place], [place] [id number] NoteHOSPITAL REGULATIONS: All Positive and Important Negative [...] a surgery isunclear to me. ALLERGIES:Percocet, Darvocet, [place], Oxycodone. PSYCHOSOCIAL HISTORY:Nonsmoker, nondrinker. FAMILY HISTORY:Diabetes, heart disease, lung cancer. REVIEW OF SYSTEMS:Otherwise negative, normal and noncontributory. PHYSICAL EXAMINATION: Vital signs: An ill appearing female. She is uncomfortable and moves slowly. Her blood pressure [id number]/66, pulse 64, respirations 16, temperature 36.8, weight [...] hospitalization. Jaime Wasserman M.D. lr Dictated: 02/26/2022 [id number] Transcribed: 02/26/2022 cc:Adriana Cruz D.O.[facility] HospitalComment on above: Result Comment: Electronically Signed By: Lisy ERIC, Nick Cheema\.br\Date and Time Signed: 02/27/22 14:23 [id number] NotePT Evaluation done this date. Pt. with on AM-PAC this date. She is safe and independent with all functional activities with no further PT needs.[facility]11-22-2022 Note Chief Complaint Had hernia repair [...] Lymph Auto: 12.3 % Low (02/24/22 13:54:00) Kent Auto: 7.4 % (02/24/22 13:54:00) Eos Auto: 3.6 % (02/24/22 13:54:00) Basophil Auto: 2.8 % High (02/24/22 13:54:00) Neutro Absolute: 6.2 E9/L (02/24/22 13:54:00) Lymph Absolute: 1 E9/L (02/24/22 13:54:00) [place] Absolute: 0.6 E9/L (02/24/22 13:54:00) Eos Absolute: [...] UA C (more content not included)...[facility] HospitalComment on above: Result Comment: Electronically Signed By: Yolanda SALAS\.br\Date and Time Signed: 02/24/22 21:25 EST\.br\Electronically Co-Signed By: Yolanda SALAS\.br\Date and Time Co-Signed: 02/24/22 21:27 EST\.br\Electronically Co-Signed By: J Carlos KEN MD\.br\Date and Time Co-Signed: 02/25/22 07:18 [id number] Notegeneral surgery interval progress note: S.81 y/o [...] with the patient and her daughter, including [facility] Comment on above:Result Comment: Electronically Signed By: Jannet ERIC, Jay Lock\.br\Date and Time Signed: 02/24/22 14:56 [id number] NoteHistory and Physical Update H&P Reviewed. Patient [...] mg= 1 mL, IV Push, q5min, PRN [place] 325 mg-5 mg oral tablet, 1 tab(s), [...] Primary malignant neoplasm of lung: Sister.[facility]11-02-2022 [id number]:[address] [place], [place] 1448610-17-2022 [id number]#1.00CD:[address] [place], [place] 1448610-14-2022 Evaluation + Plan noteExtracted from: Title:ANES POSTOP Author:Eliecer Pennington DO Date: 01/17/22 Plan Transfer/ Discharge: Patient can be discharged from PACU when criteria met. Condition good. Extracted from: Title:ANES PREOP ENDO NOTE Author:Waylon Pennington DO Date:01/17/22 Plan [employer] (ASA) physical status classification: [...] Provider:Jay Power MD Location:[facility] Appointment Type:[address]10-14-2022 Hospital Discharge instructions Patient Education 01/17/2022 [...] what activities are safe for you. Take vrhn-jni-rmjhkma and prescription medicines only as told by [...] 09/21/2012 Document Revised: 09/14/2018 Document Reviewed: 08/23/2018 [employer] Patient Education 2020 [employer]. 01/17/2022 10:08:02 Colonoscopy, Care After Surgery Salam [...] unsweetened, w/added ascorbic acid 1 cup 0.5 [place] 1 cup 0.7 Vegetables Cooked Green beans 1 cup 4.0 Carrots 1/2 cup sliced 2.3 Peas 1 cup 8.8 Potato (baked, with skin) 1 medium potato 3.8 Raw [place] (with peel) 1 cucumber 1.5 Lettuce 1 [...] 8.7 Peanuts 1/2 cup 7.9 Chart from [facility] 2013. SEEK IMMEDIATE MEDICAL CARE IF: [...] Information adapted from: ExitCare Patient Information 2009 [employer]. [facility] 2012 http://[email or web address]/contents/ikpwacnjssnu-pmahkpz-cjlsyg-the-basics Follow Up Care 01/10/2022 12:34:05 With:Jeferson COPE Address: [address] [place] [phone] [facility] (1) When: Unknown Comments:office will call for [...] or in yourlocal community. General instructions Take xvac-ocy-gjvhkik and prescription medicines only as told by [...] [employer] Foundation for Functional Gastrointestinal Disorders: iffgd.org [employer]: patients.gi.org Contact a health [...] restrictions, lifestyle changes, and skin care. Take blwu-otl-xhuaigq and prescription medicines only as told by [...] 03/04/2005 Document Revised: 08/05/2018 Document Reviewed: 08/05/2018 [employer] Patient Education 2020 [employer]. 01/10/2022 10:49:37 Colonoscopy, Adult Colonoscopy, Adult A [...] including vitamins, herbs, eye drops, creams, and szjh-ubn-flwlfbc medicines. Any problems you or family members [...] 03/20/2001 Document Revised: 01/13/2018 Document Reviewed: 06/03/2016 [employer] Patient Education 2019 [employer]. Follow Up Care 11/13/2021 10:56:24 With:Shi Urbano CNP Address: When:1 to 2 weeks [facility] 05-26-2022 Evaluation note* Encounter [...] consider an injection in the left knee. [employer] Other 05-22-2022 Evaluation note* Encounter Date Diagnosis [...] Pt understands and agrees with the plan. [employer] Other Evaluation + Plan note Future Appointments Appointment Date:02/24/2022 12:30:00 PM Scheduled Provider: Location:[facility] Appointment Type:Surgery FT Future Scheduled Tests Laboratory* Fecal WBC Lactoferrin 01/10/22 * Giardia lamblia, Direct Detection EIA 01/10/22 * O & P Exam, Routine 01/10/22 * Clostridium difficile by PCR 01/10/22 * Enteric Panel by PCR 01/10/22 [facility] Evaluation noteNo assessment information available [facility] Work Phone: Evaluation note* Diagnosis Coronary artery disease involving [place] coronary artery of [place] heart without angina pectoris- Primary Essential hypertension, benign Mixed hyperlipidemia Nonischemic cardiomyopathy (CMS/HCC) Other primary cardiomyopathies documented in this encounter [facility] Work Phone: Evaluation note* Diagnosis Osteoporosis, post-menopausal (CMS/HCC)- Primary Senile osteoporosis documented in [facility] encounter [facility] - Reported* Type Description Date Medical History high cholesterol Medical History high blood pressure Medical History [place] Medical History asthma Surgical History right knee repacement Surgical History gall bladder Surgical History hysterectomy Surgical History carpal tunnel release Hospitalization History heart [employer] Other History of Present illness Narrative* Patient [...] other recommendation for changes in medical therapy. [facility] Work Phone: History of Present [...] which appears to be adequate and appropriate. [facility] Work Phone: History of Present [...] which appears to be adequate and appropriate. [facility] Work Phone: History [...] no change and she will follow-up next year[facility] Delaney DO Work Phone: Hospital course Narrative No data available for this section [facility] Hospital Discharge instructions Additional Instructions Increase your intake of fluids. Take Zofran as prescribed for nausea. Follow-up with your primary care physician for reevaluation in 3 to 5 days.[facility] Work Phone: Progress note No data available for this section [facility] Reason for referral (narrative)* Consultation (Routine) - Authorized Specialty Diagnoses / Procedures Referred By Silvano brown Referred To Contact Cardiology Diagnoses Essential hypertension, benign Procedures Follow Up In Cardiology Nick Wasserman MD [address] [address] Nick Wasserman MD [address], [address] [address] Referral ID Status Reason Start Date Expiration Date V isits Requested Visits Authorized [id number] Authorized 02/02/2023 02/02/2024 1 1 T [facility] Work Phone: Summary Purpose Family History [...] section and content) DATE CREATED AUTHOR 04/09/2019 [facility] DATE CREATED AUTHOR AUTHOR'S ORGANIZ ATION 11/20/2020 [facility] DATE CREATED AUTHOR AUTHOR'S ORGANIZ ATION 09/01/2021 [facility] DATE CREATED AUTHOR AUTHOR'S ORGANIZ ATION 10/25/2021 [facility] dical Specialist DATE CREATED AUTHOR AUTHOR'S ORGANIZ ATION 03/07/2022 [employer] DATE CREATED AUTHOR AUTHOR'S ORGANIZ ATION 03/11/2022 [facility] DATE CREATED AUTHOR AUTHOR'S ORGANIZ ATION 04/01/2022 [facility] DATE CREATED AUTHOR AUTHOR'S ORGANIZ ATION 02/03/2023 [facility] DATE CREATED AUTHOR AUTHOR'S ORGANIZ ATION 02/20/2023 [facility] DATE CREATED AUTHOR AUTHOR'S ORGANIZ ATION 03/21/2023 [facility] DATE CREATED AUTHOR AUTHOR'S ORGANIZ ATION 05/08/2023 [facility] dical Specialists EPIC REASON FOR VISIT [...] Active Misbah Greenwood DO Emergency Provider Active Finding Fastener Relationship Specialty Start Date End Date Adriana Cruz DO [address] [facility] [address] [place] [address] PCP - General 09/17/20 Team Status: Inactive Member Role Status Dates Adriana Cruz DO Primary Care Provider Active Eliecer Gray NP-C Attending Provider Mo almanzar Finding Fastener Relationship Specialty Start Date End Date Adriana Cruz DO [address] [facility] [address] [place] [address] PCP - [employer] 04/06/20 Adriana Cruz DO [address] [place] [address] PCP - General Internal Medicine 02/18/23 Krissy Velazquez MD [address] [place] [phone] Consulting Physician Dermatology 12/03/22 [place] [address] [place] [address] Referring Physician Ophthalmology 12/03/22 Valentín Jacobson, DPM FACFAS [address] [place] [address] Consulting Physician Podiatry 12/08/22 Aye Wasserman MD [address] [place] [address] Consulting Physician Cardiology 12/08/22 Jeferson Cope MD [address] [place] [address] Consulting Physician Gastroenterology 12/08/22 Clement Madrid MD [address] [place] [address] Consulting Physician Orthopaedic Surgery 12/09/22 Goals (unrecognized [...] BE BASED ON THE PRIMARY CLINICAL RECORDS. [employer] provides no warranty or guarantee of the accuracy or completeness of information in this document.
== END 2023-05-19 09:51 | disposition home or self-care (01) ==
LOC: VC 09:51
PROVIDERS: PCP Radiology Diagnostic Radiology; Visit Provider Radiology Diagnostic Radiology
DX: I83.813 Varicose veins of bilateral lower extremities with pain (principal)
CPT/HCPCS: 36471

== ENCOUNTER 2023-05-22 10:49 | Outpatient (OUT) | payer MEDICARE, OTHER, SELFPAY ==
--- NOTE | 2023-05-22 10:51 | VEIN_ITS ---
[address] [address] Patient Name: ADINA PERRY MRN: [id number] date: 1940 Sex: F Assigned Patient Location: Current Patient Location: Accession/Order Number: [id number] Exam Date: 05/22/2023 11:01 Report Date: 05/22/2023 12:04 At the request of: SHAMIKA FLORES Procedure: VC INJ Sclerosing SOLMULT Vein EXAMINATION: VC INJ Sclerosing SOLMULT Vein HISTORY: Pain due to varicose veins of bilateral legs I83.813 The risks and benefits of the procedure were explained at length to the patient and informed written consent was obtained. The procedure was performed under sterile technique. The patient's leg was wrapped with Coban and postprocedural verbal and written instructions provided. Alexey Sosa RN was present and assisted. SCLEROSANT: 2mL 0.5% Polidocanol. VEIN(S) INJECTED: 28 veins in the left leg. VISUALIZATION: Ultrasound was not used to visualize the sclerosant. ANESTHESIA: Supercooled air. COMPLICATIONS: None. Electronically authenticated by: GABY MONTANEZ Date: 05/22/2023 12:04
== END 2023-05-22 10:50 | disposition home or self-care (01) ==
LOC: VC 10:50
PROVIDERS: PCP Radiology Diagnostic Radiology; Visit Provider Radiology Diagnostic Radiology
DX: I83.813 Varicose veins of bilateral lower extremities with pain (principal)
CPT/HCPCS: 36471

== ENCOUNTER 2023-07-06 10:28 | Outpatient (OUT) | payer MEDICARE, OTHER, SELFPAY ==
--- NOTE | 2023-07-06 10:30 | VEIN_ITS ---
Patient Name: ADINA PERRY MR#: [id number] : 1940 Exam Date: 07/06/2023 Ordering Doctor: DR SHAMIKA FLORES M.D. RADIOLOGY REPORT PROCEDURE: VC EXT VENOUS JACKY LIMITED COMPARISON: VC EXT VENOUS RT LMTD, 05/06/2023. INDICATIONS: I80.03 Phlebitis of superficial veins of jacky lower extremities TECHNIQUE: Lower extremity patel scale and Duplex Doppler evaluation of the deep venous system from the inguinal ligament through the calf veins. FINDINGS: REGION: Right lower extremity. THROMBI: Chronic appearing thrombus. Chronic thrombus in gastroc vein 1.9 cm from popliteal vein. COMPRESSIBILITY: Non-compressible segments. FLOW: Areas on no flow. OTHER: Negative. REGION: Left lower extremity. THROMBI: Chronic appearing thrombus.Chemically induced thrombus in multiple varicose veins. COMPRESSIBILITY: Non-compressible segments. FLOW: Areas on no flow. OTHER: Negative. CONCLUSION: 1. No acute or suspicious findings. 2. 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 Dictated by: Mateus Chávez M.D. on 07/06/2023 at 10:57 Approved by: Mateus Chávez M.D. on 07/06/2023 at 11:28
--- NOTE | 2023-07-06 10:30 | VEIN_ITS ---
Patient Name: ADINA PERRY MR#: [id number] : 1940 Exam Date: 07/06/2023 Ordering Doctor: DR SHAMIKA FLORES M.D. RADIOLOGY REPORT PROCEDURE: [facility] EST LMTD VEIN [facility] - OFFICE VISIT FOLLOW UP [facility] PROGRESS NOTES: Lateral lower left leg tenderness since recent injury. Physical exam demonstrates stable previously thrombosed superficial varicosities within lateral distal lower left leg in area of tenderness after recent fall; no suspicious findings. Persistent reticular and spider veins are identified along the lower right leg also causing patient discomfort. Review of the ultrasound performed the same day demonstrates occlusive thrombus extending throughout the treated vein(s), see separate report, consistent with a successful ablation. No thrombus extending into or beyond the saphenofemoral junction. The patient expressed a desire to proceed with treatment of remaining right lower extremity reticular and spider veins. The patient was informed that treatment was a process and would require 1-2 procedures/sessions. VEIN/[facility] EST TD IMPRESSION: 1. No abnormal or suspicious findings within lateral lower left leg in area of patient's tenderness from recent fall. 2. Persistent lower right leg reticular and spider veins and lower extremity symptoms. PLAN: Sclerotherapy treatment for right leg. Nurse notes, history and physical were reviewed and confirmed, see attached forms. The nurse was present throughout the physical exam and consultation Dictated by: Mateus Chávez M.D. on 07/06/2023 at 11:49 Approved by: Mateus Chávez M.D. on 07/06/2023 at 11:52
--- OUTSIDE RECORDS SUMMARY | 2023-07-06 10:41 | XMS_ITS | CCD ---
Author Organization [facility] Care Team Providers Care Spreader Operator Automatic Name Role Phone Adriana Cruz Unavailable [phone] Unavailable Unavailable Clement Madrid II Unavailable IsaacEliecer Unavailable DO Adriana Cruz Primary Care Provider DO Misbah Greenwood Emergency Provider Unavai ADRIANA Muñiz Primary Care Physician [phone] Shi Urbano Attending Unavailable Shi Urbano Admitting Unavailable Shi Urbano Attending Unavailable Shi Urbano Admitting Unavailable Jay Power Consulting Unavailable J Carlos KEN Attending Unavailable J Carlos KEN Admitting Unavailable Jay Power Consulting Unavailable Jay Power Consulting Unavailable Jay Power Consulting Unavailable MD Mary Ayala Consulting Unavailab Mary Cardona Consulting Unavailable Trabgautam Moaguilar Consulting Unavailable Trabgautam, Moaguilar Consulting Unavailable Trabcalvini Mosethf Consulting Unavailable Trabcalvini, Moaguilar Consulting Unavailable Trabgautam, Moaguilar Consulting Unavailable Mary Ayala Consulting Unavailable [...] Jeferson Attending Unavailable SALAM, Govea Admitting Unavailable Tirado[place], Adriana Billie Primary Care Unava ilable Tirado[place], Adriana Billie Primary Care Unava ilable McGuinn II, Nick Garduno Attending Unav ailable McGuinn II, Nick Garduno Attending Unav ailable Tirado[place], Adriana Billie Primary Care Unava ilable McGuinn II, Nick Garduno Referring Unav ailable Tirado[place], Adriana Billie Primary Care Unava ilable McGuinn II, Nick Garduno Referring Unav ailable McGuinn II, Nick Garduno Attending Unav ailable Tirado-[place], Adriana Billie Primary Care Unava ilable Tirado[place], Adriana Billie Primary Care Unava ilable McGuinn II, iNck Garduno Attending Unav ailable Luis Nolasco Unavailable Savanna Cassidy Unavailable [place] DO, Adriana Billie Primary Care Provi octavio Tirado[place], DO Adriana Primary Care Provider MD Nick Wasserman Attending Provider NICK WASSERMAN Attending Unavailable TIRADO-EMERY, ADRIANA BILLIE Primary Care Unava ilable Tirado[place], DO Adriana Primary Care Provider MD Nick Wasserman Attending Provider LIT Gray Attending Provider [place]ado[place], Adriana Primary Care Unavailable Nick Wasserman Admitting Unavail able Nick Wasserman Attending Unavail able Eliecer Gray Attending Unavaila ble Tirado[place], Adriana Primary Care Unavailable Eliecer Gray Admitting Unavaila ble TIRADO-EMERY, ADRIANA Murphy Attending Unavailab le TIRADO-EMERYADRIANA Referring Unavailab le TIRADO-EMERY, ADRIANA D Referring Unavailab le IRMA ANGEL Attending Unavailable TIRADOADRIANA GARCIA Referring Unavailab le TIRADOADRIANA GARCIA Attending Unavailab le TIRADOADRIANA GARCIA Referring Unavailab le VALENTÍN MILLS Attending Unavailable Tirado-MarthasvilleAdriana thompson DO Unavailable Marcus ERIC, Krissy Almanzar Unavailable Ha ERIC, Cristhian Almanzar Unavailable Indira DPValentín GRIFFIN Unavailable Lisy ERIC, Willliliborio Unavailable [phone] Jeferson Cope MD Unavailable Clement Madrid MD Unavailable Adriana Cruz DO Primary Care Provider DO Adriana Cruz Primary Care Provider MD Clement Madrid II Attending Provider Allergies Allergy Classification Reported Allergen(s) Allergy Type Date of Onset Reaction(s) Facility (5 sources) HYDROcodone; Translations: [hydrocodone] Drug Allergy 2 [facility] (6 sources) oxyCODONE; Translations: [oxyCODONE] Drug Allergy 2 [facility] (2 sources) Acetaminophen / oxyCODONE; Translations: [acetaminophen-ox ycodone] Drug Allergy Nausea (finding) [facility] Comment on above: All pain meds EXCEPT Morphine. Patient is able to take Morphone. (1 source) Acetaminophen / HYDROcodone; Translations: [[place]] Drug Allergy [facility] (1 source) Acetaminophen / oxyCODONE; Translations: [Percocet] Drug Allergy [facility] (1 source) Darvocet-N 100; Translations: [Darvocet-N 100] Propensity to adverse reactions (disorder) [facility] (2 sources) Acetaminophen / oxyCODONE Drug Allergy 3 Nausea Only [facility] (2 sources) oxybutynin Drug Allergy 9 Other [facility] Work Phone: (1 source) pain medication- intolerable Allergy to substance 4 Unknown Reaction [facility] Medications Current Medications Medication Drug Class(es) Dates Sig (Normalized) Sig (Original) Albuterol (16 sources) beta2-Adrenergic Agonist Start: 01-09-2022 albuterol Refills(s) [...] Active alendronic acid 70 mg oral tablet (4 sources) Bisphosphonate Start: 06-01-2023 take 1 tablet by mouth every week Alendronate (Fosamax) 70 mg tablet Active 70 MG PO every week June 01, 2023 12:00am Start: 05-28-2023 Alendronate Ac tive MG PO May 28, 2023 12:00am Start: 05-07-2023 End: 05-06-2024 take 1 tablet [...] aspirin 81 mg delayed release oral tablet (18 sources) Platelet Aggregation Inhibitor, Nonsteroidal Anti-inflammatory Drug [...] formoterol fumarate 0.0045 mg/actuat metered dose inhaler (5 sources) Corticosteroid, beta2-Adrenergic Agonist Start: 06-25-2020 take [...] DO Active cholecalciferol 0.025 mg oral tablet (18 sources) Vitamin D Start: 05-07-2023 End: 05-06-2024 [...] / promethazine hydrochloride 1.25 mg/ml oral solution (4 sources) Opioid Agonist, Phenothiazine Start: 03-28-2021 take [...] 2020 11:00pm meloxicam 7.5 mg oral tablet (7 sources) Nonsteroidal Anti-inflammatory Drug Start: 05-28-2023 take 7.5 mg by mouth once daily Meloxicam Active 7.5 MG PO Daily May 28, 2023 12:00am Start: 12-18-2022 meloxicam (Mob ic) 7.5 MG tablet Take 7.5 mg by [...] Start: 08-30-2022 take 1 tablet by roberth th twice daily Naproxen Sodium 500 mg 1 [...] DO Active ondansetron 4 mg oral tablet (8 sources) Serotonin-3 Receptor Antagonist Start: 11-12-2021 take [...] a day for 5 days August, Active sertraline 25 mg oral tablet (10 sources) Serotonin Reuptake Inhibitor Start: 05-28-2023 Sertraline Active 12.5 MG PO May 28, 2023 12:00am Start: 01-09-2022 sertraline Ref ills(s) 0, Depression Start Date: 01/09/22 Status: Ordered [...] 11:00pm traMADol hydrochloride 50 mg oral tablet (4 sources) Opioid Agonist Start: 06-25-2020 take 1 [...] 1 EA, Refill(s) 0, Prior to colonoscopy., Lotaris #24, 150, cm, 01/10/22 10:48:00 EDT, Height/Length Dosing, 48.3, kg, 01/10/22 10:48:00 EDT, Weight Dosing Start Date: 01/10/22 Status: Ordered triamcinolone acetonide 40 mg/ml injectable suspension (5 sources) Corticosteroid Start: 12-18-2022 Kenalog-40 14 Dec, 2022 120 mg Start: 12-27-2021 Kenalog-40 Dec, 40 mg Problems Active Problems Problem Classification Problem Date Documented Da te Episodic/Chronic Abdominal hernia (4 sources) Hernia of anterior abdominal wall; Translations: [Ventral hernia without obstruction or gangrene] 11-12-2021 Episodic Abdominal pain (14 sources) Indigestion; Translations: [Epigastric pain] Onset: 2 Episodic Asthma (9 sources) Asthmatic bronchitis; Translations: [Unspecified asthma with (acute) exacerbation] Onset: 8 Resolved: 2 Chronic Chronic kidney disease (2 sources) Chronic kidney disease stage 3B ; Translations: [Stage 3b chronic kidney disease (HCC)] Onset: 1 12-04-2022 Chronic Coronary atherosclerosis and other heart disease (15 sources) Coronary arteriosclerosis; Translations: [Coronary atherosclerosis of unspecified type of vessel, i[place]qu[place] or graft] Onset: 3 02-02-2023 Chronic Disorders of lipid metabolism (16 sources) Hyperlipidemia; Translations: [Other and unspecified hyperlipidemia] Onset: 1 02-02-2023 Chronic Esophageal disorders (2 sources) Gastroesophageal reflux disease; Translations: [Gastro-esophageal reflux disease without esophagitis] Onset: 8 12-08-2022 Chronic Essential hypertension (15 sources) Benign essential hypertension; Translations: [Benign essential hypertension] Onset: 8 02-02-2023 Chronic Fluid and electrolyte disorders (4 sources) Absolute hypovolemia; Translations: [Hypovolemia] 11-12-2021 Episodic Genitourinary symptoms and ill-defined conditions (1 source) Frequency of micturition Episodic Mood disorders (2 sources) Moderate major depression, single episode; Translations: [Major depressive disorder, single episode, moderate] Onset: 3 12-09-2022 Chronic Nausea and vomiting (7 sources) Nausea and vomiting; Translations: [Nausea with vomiting, unspecified] Onset: 2 11-12-2021 Episodic Osteoarthritis (11 sources) Arthritis of left knee; Translations: [Unilateral [...] Otalgia, left ear Episodic Other gastrointestinal disorders (11 sources) Diarrhea; Translations: [Diarrhea, unspecified] Onset: 2 [...] 3 01-31-2023 Chronic Pancreatic disorders (not diabetes) (10 sources) Pancreatitis; Translations: [Acute pancreatitis without necrosis [...] Reference Range Facility BI MAMMOGRAM SCREENING TOMOS [place] BILATERALon 04-16-2023 BI MAMMOGRAM SCREENING TOMOSYNTHESIS BILATERAL [...] IS VERY IMPORTANT TO YOUR HEALTH. THE [place] GUIDELINES RECOMMEND THAT WOMEN 40 [...] Ray MD Normal Not Available Nay 02-20-2023 LAURA Telephone (REFPHY) -- ADINA PERRY ([id number]) 1940 F Date Time Provider Department 02/20/23 NO ONE (HISTORICAL) REFPHY During your visit today, we recorded the following information about you: Alanis Castillo 02/20/2023 6:39 AM Addendum Patient: Adinakeaton Perry Date of : 1940 Patient phone number: [phone] Referring Provider for the encounter: Irma Angel APRN Requesting Provider: Vascular Surgery Reason for requesting visit (RFV/signs and symptoms/diagnosis): 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 Person calling: caregiver: Alanis Return call to: self Medical Records/Insurance Card scanned into [place] Self Representation Document Preparation: Yes Comments: This was Routed Incorrectly Allergies [...] Status:Closed by ALANIS CASTILLO on 02/20/23 Normal [facility] Urinalysis - DIPSTICKon 11-0 Appearance (U) cloudy [employer] Other Bilirubin Ql (U) Negative [employer] Other Color (U) yellow [employer] Other Glucose Ql (U) Negative [employer] Other Hemoglobin Ql (U) small [employer] Other Ketones Ql (U) Negative [employer] Other Leukocyte esterase Test strip Ql (U) large [employer] Other Nitrite Ql (U) Positive [employer] Other pH (U) 5.0 [pH] [employer] Other Protein Ql (U) trace [employer] Other Specific gravity (U) [Rel density] 1.025 [employer] Other Urobilinogen (U) [Mass/Vol] 0.2 mg/dL [employer] Other Urinalysis - DIPSTICK Nor [employer] Other Urine Cultureon 02-11-2023 Bacteria identified Cx Nom (U) ORGANISM: Escherichia coli (O:ESCCOL) [place] Count >100,000 Aerobic DYLAN Charge (NMIC56) SUSCEPTIBILITY [...] RESISTANT TO ALL B-LACTAM DRUGS. PERFORMED BY: [place] [id number] [place] [address] PATHOLOGIST TEST MANAGER RENAN CAIN M.D. [facility] Comment on above: Performed By: #### C UU #### [facility] [address] Basic Metabolic Panelon 01-06 Anion gap [Moles/Vol] 11.0 mmol/L Normal 6.0-15.0 [facility] Comment on above: Performed By: #### L IPID, BMP, CBC #### [facility] [address] Calcium [Mass/Vol] 10.1 mg/dL Normal 8.6-10.3 [facility] Comment on above: Performed By: #### L IPID, BMP, CBC #### [facility] [address] Chloride [Moles/Vol] 107 mmol/L Normal 98-107 [facility] Comment on above: Performed By: #### L IPID, BMP, CBC #### [facility] [address] [place] [address] [place] CO2 [Moles/Vol] 26.4 mmol/L Normal 21.0-31.0 [facility] Comment on above: Performed By: #### L IPID, BMP, CBC #### [facility] [address] [place] [address] [place] Creatinine [Mass/Vol] 1.34 mg/dL High 0.60-1.20 [facility] Comment on above: Performed By: #### L IPID, BMP, CBC #### [facility] [address] [place] [address] [place] GFR/1.73 sq M.predicted MDRD (S/P/Bld) [Vol rate/Area] 40.085 mL/min/{1.73_m2} [facility] Comment on above: Performed By: #### L IPID, BMP, CBC #### [facility] [address] [place] [address] [place] Glucose [Mass/Vol] 91 mg/dL Normal 70-100 [facility] Comment on above: Result Comment: [place] Glucose Reference Range is dependent on time and content of last meal. Glucose of more than 200 mg/dL in a nonstressed, ambulatory subject supports the diagnosis of Diabetes Mellitus. ADA recommended reference range Performed By: #### L IPID, BMP, CBC #### [facility] [address] Potassium [Moles/Vol] 4.4 mmol/L Normal 3.5-5.1 [facility] Comment on above: Performed By: #### L IPID, BMP, CBC #### [facility] [address] [place] [address] [place] Sodium [Moles/Vol] 140 mmol/L Normal 136-145 [facility] Comment on above: Performed By: #### L IPID, BMP, CBC #### [facility] [address] [place] [address] [place] Urea nitrogen [Mass/Vol] 23 mg/dL Normal 7-[address] [facility] Comment on above: Performed By: #### L IPID, BMP, CBC #### [facility] [address] [place] [address] [place] Basophils Auto (Bld) [#/Vol] Ordered By: Nick Wasserman on 02-02-2023 Basophils (Bld) [#/Vol] 0.0 10*3/uL 0.0-0.[address] [facility] Basophils/100 WBC Auto (Bld) Ordered By: Nick Wasserman on 02-02-2023 Basophils/100 WBC (Bld) 0.4 % . [facility] Calcium [Mass/volume] in Ser um or PlasmaOrdered By: Nick Wasserman on 02-02-2023 Calcium [Mass/Vol] 10.1 mg/dL 8.6-10.3 [facility] Carbon dioxide, total [Moles /volume] in Serum or PlasmaOrdered By: Nick Wasserman on 02-02-2023 CO2 [Moles/Vol] 26.4 mmol/L 21.0-31.0 [facility] Chloride [Moles/volume] in S kobi or PlasmaOrdered By: Nick Wasserman on 02-02-2023 Chloride [Moles/Vol] 107 mmol/L 98-107 [facility] Cholesterol [Mass/volume] in Serum or PlasmaOrdered By: Nick Wasserman on 02-02-2023 Cholesterol [Mass/Vol] 170 mg/dL 140-[address] [facility] Comment on above: Chol less than 200 m g/dl low riskChol 201-239 mg/dl borderline riskChol 240 mg/dl and greater high risk Cholesterol in LDL Calc [Mas s/Vol]Ordered By: Nick Wasserman on 02-02-2023 Cholesterol in LDL [Mass/Vol] 89 mg/dL 0-[address] [facility] Comment on above: LDL ATP III CLASSIFI CATIONLDL less than 100 mg/dL OptimalLDL 100-129 mg/dL Near or above optimalLDL 130-159 mg/dL Borderline highLDL 160-189 mg/dL HighLDL greater than 189 mg/dL Very high Cholesterol in VLDL Calc [Ma ss/Vol]Ordered By: Nick Wasserman on 02-02-2023 Cholesterol in VLDL [Mass/Vol] 25 mg/dL [facility] Complete Blood Count Auto Di ffon 02-02-2023 Basophils (Bld) [#/Vol] 0.0 10*3/uL Normal 0.0-0.[address] [facility] Comment on above: Result Comment: PERF ORMED BY: [place] [address] PATHOLOGIST TEST MANAGER RENAN CAIN M.D. Performed By: #### L IPID, BMP, CBC #### [facility] [address] [place] [address] [place] Basophils/100 WBC (Bld) 0.4 % Normal . [facility] Comment on above: Performed By: #### L IPID, BMP, CBC #### [facility] [address] [place] [address] [place] Eosinophils (Bld) [#/Vol] 0.3 10*3/uL Normal 0.0-0.[address] [facility] Comment on above: Performed By: #### L IPID, BMP, CBC #### [facility] [address] [place] [address] [place] Eosinophils/100 WBC (Bld) 3.4 % Normal . [facility] Comment on above: Performed By: #### L IPID, BMP, CBC #### [address] Erythrocyte distribution width (RBC) [Ratio] 13.0 % Normal 11.9-15.[address] [facility] Comment on above: Performed By: #### L IPID, BMP, CBC #### [address] Hematocrit (Bld) [Volume fraction] 37.3 % Normal 34.0-46.[address] [facility] Comment on above: Performed By: #### L IPID BMP, CBC #### [address] Hemoglobin (Bld) [Mass/Vol] 12.5 g/dL Normal 11.8-15.[address] [facility] Comment on above: Performed By: #### L IPID, BMP, CBC #### [address] Lymphocytes (Bld) [#/Vol] 1.4 10*3/uL Normal 1.00-4.[address] [facility] Comment on above: Performed By: #### L IPID, BMP, CBC #### [address] Lymphocytes/100 WBC (Bld) 16.6 % Normal . [facility] Comment on above: Performed By: #### L IPID, BMP, CBC #### [address] MCH (RBC) [Entitic mass] 30.9 pg Normal 24.7-34.[address] [facility] Comment on above: Performed By: #### L IPID, BMP, CBC #### [address] MCV (RBC) [Entitic vol] 91.8 fL Normal 80-[address] [facility] Comment on above: Performed By: #### L IPID, BMP, CBC #### [address] [address] [place] Mean Corpuscular HGB Conc 33.6 g/dL Normal 32.0-35.[address] [facility] Comment on above: Performed By: #### L IPID, BMP, CBC #### [facility] [address] Monocytes (Bld) [#/Vol] 0.8 10*3/uL Normal 0.0-0.[address] [facility] Comment on above: Performed By: #### L IPID, BMP, CBC #### [facility] [address] [place] [address] [place] Monocytes/100 WBC (Bld) 9.0 % Normal . [facility] Comment on above: Performed By: #### L IPID, BMP, CBC #### [facility] [address] [place] [address] [place] Neutrophils (Bld) [#/Vol] 6.1 10*3/uL Normal 1.8-7.[address] [facility] Comment on above: Performed By: #### L IPID, BMP, CBC #### [place] [address] [place] Neutrophils/100 WBC (Bld) 70.6 % Normal . [facility] Comment on above: Performed By: #### L IPID BMP, CBC #### [facility] [address] [place] [address] NRBC% 0.0 /100{WBC} Normal 0-0.[address] [facility] Comment on above: Performed By: #### L IPID, BMP, CBC #### [facility] [address] [place] [address] [place] Platelet mean volume (Bld) [Entitic vol] 8.2 fL Normal 6.3-10.[address] [facility] Comment on above: Performed By: #### L IPID, BMP, CBC #### [facility] [address] [place] [address] [place] Platelets (Bld) [#/Vol] 296 10*3/uL Normal 150-[address] [facility] Comment on above: Performed By: #### L IPID, BMP, CBC #### [facility] [address] [place] [address] [place] RBC (Bld) [#/Vol] 4.07 10*6/uL Normal 3.60-5.00 [facility] Comment on above: Performed By: #### L IPID, BMP, CBC #### [facility] [address] WBC (Bld) [#/Vol] 8.6 10*3/uL Normal 3.8-11.6 [facility] Comment on above: Performed By: #### L IPID, BMP, CBC #### [facility] [address] Creatinine [Mass/volume] in Serum or PlasmaOrdered By: Nick Wasserman on 02-02-2023 Creatinine [Mass/Vol] 1.34 mg/dL 0.60-1.20 [facility] Eosinophils Auto (Bld) [#/Vo l]Ordered By: Nick Wasserman on 02-02-2023 Eosinophils (Bld) [#/Vol] 0.3 10*3/uL 0.0-0.[address] [facility] Eosinophils/100 WBC Auto (Bl d)Ordered By: Nick Wasserman on 02-02-2023 Eosinophils/100 WBC (Bld) 3.4 % . [facility] Erythrocyte distribution wid th Auto (RBC) [Ratio]Ordered By: Nick Wasserman on 02-02-2023 Erythrocyte distribution width (RBC) [Ratio] 13.0 % 11.9-15.[address] [facility] Glucose [Mass/volume] in Ser um or PlasmaOrdered By: Nick Wasserman on 02-02-2023 Glucose [Mass/Vol] 91 mg/dL 70-100 [facility] Comment on above: ADA recommended refe rence rangeRandom Glucose Reference Range is dependent on time and content of last meal. Glucose of more than 200 mg/dL in a nonstressed, ambulatory subject supports the diagnosis of Diabetes Mellitus. Hematocrit Auto (Bld) [Volum e fraction]Ordered By: Nick Wasserman on 02-02-2023 Hematocrit (Bld) [Volume fraction] 37.3 % 34.0-46.[address] [facility] Hemoglobin [Mass/volume] in BloodOrdered By: Nick Wasserman on 02-02-2023 Hemoglobin (Bld) [Mass/Vol] 12.5 g/dL 11.8-15.[address] [facility] Leukocytes [#/volume] correc sergey for nucleated erythrocytes in Blood by Automated counOrdered By: Nick Wasserman on 02-02-2023 WBC corrected for nucl RBC Auto (Bld) [#/Vol] 8.6 10*3/uL 3.8-11.[address] [facility] Lipid Panelon 02-02-2023 Cholesterol [Mass/Vol] 170 mg/dL Normal 140-[address] [facility] Comment on above: Result Comment: Chol less than 200 mg/dl low risk Chol 201-239 mg/dl borderline risk Chol 240 mg/dl and greater high risk Performed By: #### L IPID, BMP, CBC #### [facility] [address] [place] [address] [place] Cholesterol in HDL [Mass/Vol] 56 mg/dL Normal 23-[address] [facility] Comment on above: Result Comment: HDL CHOL ATP-III CLASSIFICATION Cardiovascular Risk HDL > or equal to 60 mg/dL LOW HDL < 40 mg/dL HIGH Performed By: #### L IPID, BMP, CBC #### [facility] [address] Cholesterol.total/Cho lesterol in HDL [Mass ratio] 3.0 {ratio} Normal <5.[address] [facility] Comment on above: Result Comment: PERF ORMED BY: [place] [address] PATHOLOGIST TEST MANAGER RENAN CAIN M.D. Performed By: #### L IPID, BMP, CBC #### [facility] [address] [place] [address] [place] LDL Cholesterol,Calculate d 89 mg/dL Normal 0-[address] [facility] Comment on above: Result Comment: LDL ATP III CLASSIFICATION LDL less than 100 mg/dL Optimal LDL 100-129 mg/dL Near or above optimal LDL 130-159 mg/dL Borderline high LDL 160-189 mg/dL High LDL greater than 189 mg/dL Very high Performed By: #### L IPID, BMP, CBC #### [facility] [address] Triglyceride w/Reflex 127 mg/dL Normal 0-149 [facility] Comment on above: Result Comment: TRIG ATP III CLASSIFICATION TRIG less than 150 mg/dL Normal TRIG 150-199 mg/dL Borderline high TRIG 200-500 mg/dL High TRIG greater than 500 mg/dL Very high Standard traceable to the Center for Disease Conrtrol and Prevention (CDC) test method. Performed By: #### L IPID, BMP, CBC #### [facility] [address] VLDL CHOLESTEROL 25 mg/dL Normal [facility] Comment on above: Performed By: #### L IPID, BMP, CBC #### [facility] [address] Lymphocytes Auto (Bld) [#/Vo l]Ordered By: Nick Wasserman on 02-02-2023 Lymphocytes (Bld) [#/Vol] 1.4 10*3/uL 1.00-4.[address] [facility] Lymphocytes/100 WBC Auto (Bl d)Ordered By: Nick Wasserman on 02-02-2023 Lymphocytes/100 WBC (Bld) 16.6 % . [facility] MCH Auto (RBC) [Entitic mass ]Ordered By: Nick Wasserman on 02-02-2023 MCH (RBC) [Entitic mass] 30.9 pg 24.7-34.[address] [facility] MCHC Auto (RBC) [Mass/Vol]Or dered By: Nick Wasserman on 02-02-2023 MCHC (RBC) [Mass/Vol] 33.6 g/dL 32.0-35.0 [facility] MCV Auto (RBC) [Entitic vol] Ordered By: Nick Wasserman on 02-02-2023 MCV (RBC) [Entitic vol] 91.8 fL 80-[address] [facility] Monocytes Auto (Bld) [#/Vol] Ordered By: Nick Wasserman on 02-02-2023 Monocytes (Bld) [#/Vol] 0.8 10*3/uL 0.0-0.[address] [facility] Monocytes/100 WBC Auto (Bld) Ordered By: Nick Wasserman on 02-02-2023 Monocytes/100 WBC (Bld) 9.0 % . [facility] Neutrophils Auto (Bld) [#/Vo l]Ordered By: Nick Wasserman on 02-02-2023 Neutrophils (Bld) [#/Vol] 6.1 10*3/uL 1.8-7.[address] [facility] Neutrophils/100 WBC Auto (Bl d)Ordered By: Nick Wasserman on 02-02-2023 Neutrophils/100 WBC (Bld) 70.6 % . [facility] No Panel InformationOrdered By: Nick Wasserman on 02-02-2023 Estimated GFR (CKD-EPI) 40.085 mL/Min [facility] Creatinine Clearance (Chem N/A [facility] Nucleated erythrocytes [Pres ence] in Blood by Automated countOrdered By: Nick Wasserman on 02-02-2023 Nucleated RBC Auto Ql (Bld) 0.0 /100{WBC} 0-0.[address] [facility] Platelet mean volume Auto (B ld) [Entitic vol]Ordered By: Nick Wasserman on 02-02-2023 Platelet mean volume (Bld) [Entitic vol] 8.2 fL 6.3-10.[address] [facility] Platelets Auto (Bld) [#/Vol] Ordered By: Nick Wasserman on 02-02-2023 Platelets (Bld) [#/Vol] 296 10*3/uL 150-[address] [facility] Potassium [Moles/volume] in Serum or PlasmaOrdered By: Nick Wasserman on 02-02-2023 Potassium [Moles/Vol] 4.4 mmol/L 3.5-5.1 [facility] RBC Auto (Bld) [#/Vol]Ordere d By: Nick Wasserman on 02-02-2023 RBC (Bld) [#/Vol] 4.07 10*6/uL 3.60-5.00 [facility] Serum or plasma anion gap de terminationOrdered By: Nick Wasserman on 02-02-2023 Anion gap [Moles/Vol] 11.0 mmol/L 6.0-15.0 [facility] Serum or plasma high density lipoprotein (HDL) cholesterol measurementOrdered By: Nick Wasserman on 02-02-2023 Cholesterol in HDL [Mass/Vol] 56 mg/dL 23-[address] [facility] Comment on above: HDL CHOL ATP-III CLA SSIFICATION Cardiovascular RiskHDL > or equal to 60 mg/dL LOWHDL < 40 mg/dL HIGH Serum or plasma total choles terol/high density lipoprotein (HDL) cholesterol mass ratOrdered By: Nick Wasserman on 02-02-2023 Cholesterol.total/Cho lesterol in HDL [Mass ratio] 3.0 {ratio} <5.[address] [facility] Sodium [Moles/volume] in Ser um or PlasmaOrdered By: Nick Wasserman on 02-02-2023 Sodium [Moles/Vol] 140 mmol/L 136-145 [facility] Triglyceride [Mass/volume] i n Serum or PlasmaOrdered By: Nick Wasserman on 02-02-2023 Triglyceride [Mass/Vol] 127 mg/dL 0-[address] [facility] Comment on above: TRIG ATP III CLASSIF ICATIONTRIG less than 150 mg/dL NormalTRIG 150-199 mg/dL Borderline highTRIG 200-500 mg/dL High TRIG greater than 500 mg/dL Very highStandard traceable to the Center for Disease Conrtrol and Prevention (CDC) test method. Urea nitrogen [Mass/volume] in Serum or PlasmaOrdered By: Nick Wasserman on 02-02-2023 Urea nitrogen [Mass/Vol] 23 mg/dL 7-[address] [facility] WBC Auto (Bld) [#/Vol]Ordere d By: Nick Wasserman on 02-02-2023 WBC (Bld) [#/Vol] 8.6 10*3/uL 3.8-11.6 [facility] Coding Summary.on 03-11-2022 Coding Summary. [id number] Gh0bWw +PGhlYWQ+EY6PFEGzW46dbKTzf I6YH3nDEL1QJVRGHDUFDJ6LYU0 nhYS0TWwjW4TeetXo BrodaXXbQK36CXy0EJA9rEgjGV lruU7juKDqT8t0YgZtVL15eQ10 GScjDWAiHeK5EqYswtlklOQf Q9kjXoXnjGZaPkd+PHRhYmxlIH osLELiJBglSMRlXaSecLlaTR8w Bd9gKLBwZKAxaEmuzJCxFuGj u1mwQROjCRvcET1joWwyJ4OboW A1COBtq0x9Lx82mJX+PHRkIHN0 iZscUKcff116IeVey6jbNUS2 eWYjWDavSVS6T63vq6H1WTSbPC VsTQN2lQK4nV2agEussrcmW8Ir xCQkTqX6MNN6mGCtlN9bxHaj xuckuF5aBif+S41HTG0KTLVQDV 3UBpb3P2TzSmtmgPO+BD99GPXk PF12aLGlqVZpw9aoqJw6WoLn OHHiSPB6pWxkJFugt3PeGNVgN3 9kpPXrk8U8GTQipTkghHSmLsIu sBK6mC2wZWgkjuujg4arwhoz Eqqhe9xips17oD45C22nBXkbTC JfSAA5ZSFhGZPubSlmfd2bwA7j Ii8+CJryh4qbo9mesXn3OyLy BISavdFlqJzfRMH2m7QqRh47Q4 YvgPncv8SzAwt0tz88tJMpv7A1 hEH4VLyfFSIuaY5uCImbNnB1 ITYvUdZszN84mJZuHOfgAv1zoJ vqnMrpXB2sNYTwjuuvMQPlgA6i WPWemCExeWcxJV2mMQGgvpxb h188XbZjKYR6WCMpuHBkP9MjpS 1qKpLnKEHdUKJxQ0TvmOTeMPfj F587GPuhMnZ4YKKfkjGoI6Hg BMIhnWtnJaJ5t1A4Dz1Yf2Dfkq cuZUZ9ZQokEQSbCaX2ZgFrCeH2 G1NrUiq7DVYwpYaxOJ2gL0Rn THPqdeaytmsyyPX9JZAmDRBfqU 77tSTdIJtgFp2lm0P0h658OFTj EIQfhI10Wo9zjFdrWSZfqNOP wK0dkvoqz4gqphkkFuRkPDWlAS l8LEm7YNTerZeoYwXbIOH7MgL6 MHG3cRRnjF8ceJadfwbzyH3t Oyc+X69lxU3uUSJ5SXX6gvzoBD HdhaDkOR52IQ66V2VwHoltvOAa bGU+LHEhkwLjuSaoZO4bVeGa v6cof2TgHEytA9NfEATtXCykJx i7PYZtYAJ3rWP8rB3fNGSeQEsi g1S5tLM5H3JurgBicz4nk2ap WZVaZHupP11pxOSph8U1OUZdaQ F7WAHiqQdqJaJfvH76Gny+PGNv mHyhy0EgSruso8ays8kpcVi1 VzZbVFUhmvAopXhsMYF1o6GeXu 87Y47gOJjbOLZxBYDzIEZdXBMl fDhhlt2emE9vWi4+PGNvbCB3 pMC1gH8lIKAxQwL9PHknC433Ze JfnWZvCkudc5yvw5knqKi3YfYp DEQwrsYedGnnBVO7k4RxKb31 N37kJNobUELjGFZjDWZuEWVtyM sfco8odQ9vJe5+DG3gg3xmkm93 fQ11uZJ+ZMIfHOB3uCwyBFsh CVMifD6yFMztVwG0OYUwWgOvlX 77pBNaXKjlXn9bjXxgzStlYA0x AYLlhvkgj413DhCvw1ieQISj dZZgRPetIPA1J23bv5O6QCOzCD HoTDF3dTW4lX6etObmtqxnsEYg jTenvrSaxTmhLAhxJUcqE606 IHRvcDsnPlBhdGllbnQgTmFtZT l6Q6OzBph8IJQhnPoqZB2zrZDw RDhwYy6srGorvVljQY8rDLKs lwctn007RtNmr7kfQFJxjHSaAB qlHNZ4S70pk5S5BCTqOAFlVVI8 sVC7vP0ppIrmpoicjMQmdXws lbFfgVmuJKugBZciL376CWJxqF akJgRtktQbQKZivQM2ZE53SS99 dCAym1T5bBI4M5IvYLQmbehs emniuCK0KEOwXGErcX31Ls5ysK bgMm2xMDLwFRV5RECehHMaS0Zu oA4tSxWoRWJnRQCvF2LzpYKr TMmsO251TVwpKtM7ASQkmiFeZ2 IgCDMzeQtzJmM5w6C1Kz7JI9Y2 VK33PT16cMWpd9K5eWW6L1Ku LHOicpichsnqiCO0SYTuHNNmtY 71Ai0kqXkdWf8cBPXeMGX8QZGy hDYhT8PggX7yZuXdECLwEGRn F9EcyRWzXEpdX571BGhdHzW2KL QhnwCdT1ZgPLRwiFfuPgE5i9D2 Ss6PGLe3HK25WR78xNZry2F8 wBC0D2DxKSLbkwqihnsyoUI1WB FbDOCjzM92Ok4igRtoWk1iNGDy OZS7XASgnKNkC2QqlT8aMnPb DSWdFRFdO4FcnTUyLIsvA803TX tcMoD4YSPdiuYkV2DwWITsjFif ZdU7q0K1Qh5KFLCcUS74YCM9 wYS6LM96SF98O0DqEbqgfNYpzW U+PHRhYmxlIHdpZHRoPScxMDAl PxQhuDgdVD2oPn2sPJHfHVXm uTrjjVCwRrWse3xgBEOrJJaoNV 7cmKxuW9JoePP1MZWme2b2Jx42 W33rO5SmuBE+ERPxlKI3lYK1 cV7yJxEpQgU0GQwnE416XoLaqG VgVxels9lpq9qsaLp8KqR0HLTa xjOdlAcvRNT6m0ZvLg59A29x IHdpZHRoPSIxNSUiIHZhbGlnbj 9uoS8mXk4+TCJxvNQ5vLI3uQ0y UhAjLsX6ESpeP456BhThcBVc Kqveo2rku4ribIj5RnMoDBFcgc VskUgsDYU0a4UfPg34V3WhxDiu t6GtFpz5ty50iCPun8R7mUO9 T7JjSJMmdxlnnVEglUwqMV5oTR ZvohboFEZolB7jEFPrZ4b1NnBq VyJ0EArlJ1YxouQ6DFLhuLZl DAoxGDG7U97ms5T1UBIeRMFwGI O1dVU3xJ6oxJysjlcpjWNtnAyg nsLxxLtwNUhgPEqvO457PPCh pDoxNUWzpT1dELWiaBFsgUtbPX 4qFEBddrycGwVUE5BNJ8FiGHWB UALOA5gUDU24GZ97xZLtg6F1 fJU2P8HmFZJfzoyxrtluoCZ9KJ DfUOAiwU89zAExWSxwDb1hk5V1 h089VTOjXGPhzB23Fu1rzYxr SQVkuFATdR7ltwzcz2gwjqvmJh SzJQVaLYd7PMa2HZLvcPibAjDr JDY4VhP3WYK9yJZlpF2xiEno eobusP2uGjf+DYCsWELpUGr1Bn wvdGQ+OKKlYWW3gKxxGByyVBCy eT6fBJPqM6z0KdWkTuN0FYjl J4WrJEEwbldbVd72kH1aTqJkNa P0QGglM4UcpgU0FEIecMGpIOxk UZM4E31qx3T1PKXhHXPlBPK3 qUS8jM8koDcrdjlsfYGanYfqpr AqjRlqTImiYAflX776HWBggIhr Znz1YEpzXACsBR07FU82hOUg s1T0hIM4Q0JkVHOmxkaceijnlH U5GPSwAWRqzN40uLZkVTouFb2i h8R3n775FRVrLNOkrI34Ub6c yAujEKOqiUVDyH9qlpbqj7xvug bdGpPxAUOcKJt9AAe5DMMtdBku AzCtAJN1FxH7JIH6xGBkpZ0i nDquntvnwL6oSzu+RmVtYWxlPC 48QR71rIMgk7J3yFS8K2VrNBRg qkirmaluvFE2GFMuHSUrbS57 mGXyYOmcRx3xn2V8l784CDHjIW WntZ13Wc6aoGatBBGxwMKVxV8s xiemg9oswucfNzIuNYQnIBg0 HXd9AXUmnOriDuOvXMY4NaA4AQ Z1iAIuiL1csLsagcdysD5mDst+ H1NiQHD6SXIis392O2DvGdzf dHI+QN12YFUxQK83vLCnzCZzj0 axsOr0YnRjJQGmYKX2nJuuWJgr z8NuEAEiN12qrFJww3K9QZVr gPifsVBhUfWwsFX1tF0mSYstqg mcv6vwigqjVisfa1njit75aE76 E46cILlqFWLsRSVdSCFdHQIs xOivgf5zuW8lDu5+MIFcfIA6nQ V8nA4tHuErNgD7UEgtD320JcXb oDSnNeiyi5pmn7ktjSb9LdQt HSJzefDdnXokKGX9r8UsHt66P4 9sIHdpZHRoPSIyMCUiIHZhbGln pe5bhY6vGh4+YB4pa7rkod10 hU20uTM+MUSxAIN9bMrpHJgjFF KlaC3wLRtsFmY2HLQoJgHtwI14 lABiSRkrRa1jdIwoqJuqSF4k JGKhthquo947LiYmv1uwXOVbcQ EePRxsITJ4G83am6B0NPQyCKUk FJC9cCB0sI3gnGjuirebtLVg kMeldzMtfDwoMZuqEAtdY034EY HzlAfqPxByuKAxM3qjbbZVEL7q OjwvdGQ+JIPcOAL2yEsnXUgq BBGltC6rJABoZ6j9QlEpDlG4TR ukO3KtynK4YYIpeQLmNSLedEMW nK2hxmcam0htjkciKeEmQBHb BNc7TXo3RAKqrTlvNdRwCEZ2Jg N9EHH2sFXtqU0moYfsncpgeH8q Oyc+RklOOjwvdGQ+PHRkIHN0 lIbcBDwqVCFbdS2qBIPlX2f7Rs RrNtV4HCvoP5WwfkY1COEjxCEr HFGffOPUlR0hhdogq3dknkzj MvOfJKUbLIh1EFq0KEJjrEhvTt LuUPG3BgO3APC3hCGjdP3fdVjm dpisvQ8gQwp+TVJOOjwvdGQ+ YVKgYQQ7oGthMTlzDMLiiD8nQE GfZ4b0DgLwPhU6ZXtcE7IzumY9 DVWfrKHdRHDfsMZXxA8shfiu o1eadvajFsWzYJHjDPn1SPx8QA NxkUaaNsDjMDJ2KzX4GWL8uVUm rU1fuVpeqojdmM4nImg+UGF5 JLP3IL18IB08G0LvUvdjtAKbcX U+PHRhYmxlIHdpZHRoPScxMDAl FsXllJzfYT8dWx6aFUSjOPEx bGxh (more content not included)... Normal [facility] Office Visit (Cardiology)on 03-06-2022 Follow-up visit Diagnoses/Problems [...] complaint. Vitals Vital Signs Recorded: 06Mar2022 03:48PMRecorded: [id number] 03:25PM Dkddmgce570, LUE, Dhwvrrg578, LUE, Sitting Fouiorhsj46, LUE, Jtwjiak21, LUE, Sitting Heart Rate66, L Radial Height4 ft 9 in Kxvgso418 lb BMI Zhtglrpums39.37 kg/m2 BSA Calculated1.38 Tobacco Useb) No Falls [...] Mar 06 2022 4:39PM EST (Author) Normal [employer] Tobacco Screening.on Fall risk assessment a) No falls within the last year [facility] y 250 DO Work Phone: Tobacco use status CPHS b) No [facility] y 250 DO Work Phone: IntraOperative Documentson 1 05-04-2021 [employer] [id number] Normal [facility] General Surgery Office/Clini c Noteon 03-03-2022 General [...] patient or guardian consented to allow [employer] to record this visit. ANA M sales and service specialist and provider reviewed before signing. ANA [...] list Allergies Percocet (Nausea) Darvocet-N 100 (vomiting) [place] (Vomiting) oxyCODONE (Vo (more content not included)... Normal [facility] Comment on above: Result Comment: Elec tronically [...] Locations R1: This test was performed at: [facility], [address] [place] [address], [id number] , [place], Normal [facility] Comment on above: Performed By: #### 2 [id number], [id number] #### [facility] [address] [place] [id number] Coding Summary.on 02-25-2022 Coding Summary. CD:[id number] Gh0bWw +PGhlYWQ+ZM7TSNOpN41gdSMmd K1VK2zPYE9RFDBFUUXJMB4YHX3 hpWE6PNehT2DnltHx XpzaiZGlIH90CPn2IIA0mQjqGI ikjG4hrSTnQ3m7JnUfKJ82rV91 ZKltGRVoDcO8AkFzfjvgeKYh D0tfWqNtpJCkVxd+PHRhYmxlIH fzWZFlLXhpJBViQjUciCgmFO9z Rz2eJRHcIXApnGbmkGHpXgZn q6snFMEdGZnvQE8vzMlyA3ZuxE Z8KBKpc3a3Cy63oCS+PHRkIHN0 bMgfIVlzn731IzPaw3xyAZC8 rTXyGHpxECX8W72ph4W9XMLsTW JdBXU1sVA7pO0odCwcbmfhI2El zZEsMfF6WNJ5sCOyjA7hnTva ehrwzJ3qOdc+R60WRD4AXUHVUZ 8RAir0W4FmWvwptHN+JC42SHOy FF49xSQhnYAov6yumQt2YaDh VSQwTMJ0rXgmCWnjn4RmBWQbH2 5efCZye7N3QRHkfMnaxDLbMwGv iYT4oO5bYYvbfwlvm5kxdvnb Zgnng8grre28aI06U53kHIfcHA KbAJS7OVAyQVTzkKtirs0gzU5x Ii8+IQgkq8nkk4mkxPj1DsQs KNUwefKwsNnnCYP5l0VtLk94F4 MbrZrxh0CpCfb0qc31aVZvk9V1 eJK6ANqpGQNmdV9uGKlqQhI1 ASNoFkCyxA52iWPfJSnfAy6beE fpdSjlSK8jPRUkdtmdTTOycL9y URRcwKBxcVdrUY4pPRRihtih w264KnXeDFE0CEZkhNYkK2IyvR 5kVnFfKCHcTVYmY3SazUVxZKlc H265LDwfGhA6ZDTlezRqW5Ha KMKryFrsGuV6u1O4Wd6Ry0Ezvy otDXZ0XPhgNCOkYeZmKbGuYzL5 W3WrLmr0EUYufAweGC7bW2Po FPUmjgkouuortAW6XRWjEDOyzN 24tONjKVzeAo7rj9A7d714TIYw ZWYneB79Vv5chUxhFTPtfFJC vJ9reitor9zocoweCzDoGZWtMU f6UEe9GQRbdHfsToKmOBM3JsG8 EUG3mBUnlP4aoCbqixxvzM0n Oyc+E64agH6hBUZ9XYL7xchgXQ EekxSfRM21OP46X8QlVnevbCHy bGU+ZAOrnbNoqMvwNO6zUyJw t9rka8AtVQnqC7LtAHTwEAstPe k4VPWjZDK1aGV1uU3mVQHcPLpj x3B5kGE7S0VbbeQbst1ai6qp UAMrRUhqC08qaXKue8D8RKOvbV C9JRAriQlkPqLjfZ13Eau+PGNv fEvox4CbLphbe4fls4pmjPw9 VcUlJOVhniHkcEzdBMK1b8AqKf 40X74nGHhkIYIvJVEaRQJuBPDj bRsfse5aqM5jYj1+PGNvbCB3 yXW5tZ3iUUNoAvR9VUyoA778Ef UehFDiEjxap3oig3xiiHy8AqTu PDKvikYaqZocYFQ3w8KqCr56 N15hDFueQTMzRWIhTNGnUWMavK hsyw4dpT5dPs1+IL2iw6hcnw14 oX25gRX+NFGzQMY4vGftQIel OZZquE2gKPwzTzW6FUIyCvYtiG 38wSLsFOblLn1ggHjnpYkwAC2s VYDwxcsjn922HvSey4zpFDFr gICmXTsjZUO1Z90vq1L5ABCqRV QiMCU8iAJ2iV1lqGxdrmngnWRa oFrsgyKcnGlvOHidJYgdW667 IHRvcDsnPlBhdGllbnQgTmFtZT k5F8MfVjw1OJVnaLyvCA4ncZQe BFtzUi4cpCbcsHljCY1rKJYh scemr971YrKvc5gbSBUznKKtYT ifSQJ3H40vc3C1RPRrRHNhVKH6 gHV9xW6usHtuvtxqdTAucTvg kcZimRxrVBmjOIdxQ382BHBxoJ smIuGuioTwRHUefPJ1HG40OP00 qIOes7R7qUL1X9CqADJylojm lrndyGP3CUDgSVZxoF37Vu7tiY pjRh8mJSOaUSK4NEEyyEHdF7Zm cW6uSpEnKAKuKORuB6RebXOn AIamS714ZTdpPpZ5PBXopcZaU7 AiQKVufCvwVpU6l1W3Ui3MP2E1 IB76SB77pQUwh0W8cWE7Q6Pe CRJytifdngsnaVL1AVTrKKMenK 76Yz2ewRzbWm9sWENmUPQ6QBCj bYRwR7PvvY5jBrVlRITpAHPj N0TylGTuCXyvS199WYirKmB8AD FkluJuQ2CwZUDjlUdnLnL8x8C4 Sw8USBh1TR33FU36yRIrc3T8 rDP9C3SmKBWygdtvrbgqlFW0BJ WlBNBtzU55Rn4tnInbBt6lBQAo JXJ7VBBizRDwT8RsxZ7cFgDq TCQfRWWoN6UenSTcKCfmZ991XY efGyI1VAJquiPmK4JoZOWsaVmb ZmO1n3X6An2KJBJtPA53ILK9 xFY7JD77BP34R4VaYevtzBUlmJ U+PHRhYmxlIHdpZHRoPScxMDAl LfDuxNfySL8cWo2aRULcBWHn xWlsxUUjJyBtx5bfQVLkGZuuDR 2yyOayC0EqrCW7KZJoi4d3Xw92 F29dA4OtkYH+VXFxhKJ5gAX5 mE6cYaUvHhX9JNyaB404JzZohN BcYgajs2mza6mdzAj9SiM7JTXe ysFdcWesZJY1k7FzMj72W82e IHdpZHRoPSIxNSUiIHZhbGlnbj 5epA0jEi7+TGWotEF5xRZ3sQ0q GoKhDuV6OMmeS591PrHyfPSc Rcxld3pna1chtOo8UuRmMDDshp JhoVmdOVT0i4SbYe70F6FhqRls k6NcPbi9zm38hGAow7M2yFQ9 F7SlFRLdsvcydBNgcWpiOQ1zSY KfzxheSXYcnE6oXPWdC5m6AlHs NtQ6PStpY7EtrkB4KDVskHAb ALjuBUA5M06xy6J3IMScVCDhSX S2hPW7cA7hjWjolhpyrQAomZsm vpQjhAzrVTjtPDazV636SKLt qAktFYXmfZ5qYMBvdMJueJioCR 2oFJYabnhpVxRHN4EMK1WeJNRW JMMKT0wKXP47LA96sHGgl9C4 fOK2F9XfQLCqkrhjcejzoPL8TI IgXWMmlS92dGDdPGjpSq1lu9Q2 k314GQHyQGOsfL84Nt9fsIto MHGetYKSqN9ozpwft5nktswbZa VjAAFbDIo3VTc2ZSYumEmjSfOn VQA9HiL2QVA2gFPhmO6xgDjp oictbD9rGsu+ZEWtRUOjFQw0Zy wvdGQ+VVJgDDM7nCalKAzjKMAt vW9oZIBpB4a7DfUxRwC5SQdc Y6NzTKEmmfsuRf42rS1rGmCaTq Q0KYjvS3KitsU9GUWihSOoMJiq DSH3H02dr7M9DQQvHAKsZYU1 fRF9yJ0usFurwlqznIPkzHjvgl CniUhwSFueETllI786WGLvbEij Oqq4SPcnGMYmDX99IK55kKMe q2N6aOI4I0UxMLWrdxptsemkrK O6POYbRUCnkD52rXHuQMtfWv5s b5C7u052JNWfVGTdiL85Rp1n pFxaCERveTAHvF9soowob2ofaj yuBoLjXQJfIDs8CZq0QNIpbHrs HkYkYWR0DnV7VBP9jGAuzQ1b vNydpnwejX4wTge+RmVtYWxlPC 61YB57nBYtt2Q0rQC7F7XiTZWf aqcplywpaQI5VONbMTSelY86 dFOqKUaxZx5kc6M1o899SGUtVI AtoM08Lc9haYqtZIQymBQFpV5c crmhv3uhiritOfOwZTHkCCw6 UBi1IWQjnBhwQkSvBEU7EzR8MN D4uMNonE5iaNojiamcpP7yFki+ PI9vtVtplT2iiF5UUI2kDMWs iAAZpMFyRQS5VL70TY06F7XgJm wvdGFibGU+PHRhYmxlIHdpZHRo FKzeBRUkIhBvqBtnFB3nCr5v MHDqDFTupNpdeAJdCtRfs9fkFE RuJGqlLR2zaRlkS9LceVC8OXQb m1u0Tz14V49bC3LnsWE+PGNv hUJ8gUS1eL3xNuUrZnB6PEbqX3 84HrEpkPXfKpibh8kar4etqRw9 DxSzTDJdqkJizEjaVLJ7y3Zr Zp48P51eLQcvSGDwXCYkJKUbRW DunVpyyz2rxI1eVy0+PGNvbCB3 gQO4bS6wGgQqZjQ9AEskN328 OgOxdITfOemzU55fZ4NghGV+PH QvEqc4ZARxrTtbEJ6qvEMvNXth Bh6hQZP2YyLcZjLbBRtvC6Ir GSVgylwfwmcgoLJ3JZJsGZHorD 44Wc8qhPjqRc9rGOCxXJI7PMFd wJAgL2JypY9tQyAjMZTdKSLg A6LjeRTnREarA925YZwgTxV2LE JavkLtK3SiMXYnrJmdXtT1l4J7 Wi1EuBfdiWQmDF4aYsOfGFf8 V4IbUqo4QXJfeHhjMY3syQAtIA lhDx9dbXovnIpuDQ9kCHVbxout w829PbKsh5siMXQlvFNuPZrk MNQ1C92oa7S9VZDtAORnFWP4rY R2tT8wiWkcefbslCTkuPzoopUd aLnyPXmrHJraN162INGmfTew KxBEVir7P8PiTgk0QIRivYgzYH 8pdMFtKNioYp2xoNrufDadCG9y PEMgapqou581WmRva3zsJMGc vNNqRLndERG9C29md3Z0KNPlMG TnBUX8bOO8nV2tzOenuiftlVEt hUpzqiNphOkeCJbsRZsuA417 PEHgjLrgIq0BCbw9N4QlBna7SD IgaYbeEZ9iuUHyTThgHs6lhLlo tJsjFV2uLDSaobbox631YdJr i3xxMUBzzQDqZWvsOPE8J51pn5 G3CEXqNBGqZFD0gNE6aM2qyZxr bjogbGVmdDsgdmVydGljYWwt LUzoR497ROWgkJmwXqZplLLuPj wvdGQ+TL33vs36H6IpZvocQyy6 GIZjWLN9xZS5sI1uBZPfPJll c3R5 (more content not included)... Normal [facility] Consultation Noteon 02-26-20 Consultation Note Patient: MAYA [...] STABLE AND NO WORK UP NEEDED Normal [facility] Comment on above: Result Comment: Elec tronically Signed By: Lisy ERIC, Nick Cheema\.br\Date and Time Signed: 02/25/22 14:40 EST Discharge Instructionson Discharge Instructions [id number]:127 Normal [facility] Inpatient Clinical Summaryon 02-25-2022 Inpatient Clinical Summary [place] [id number] Clinical Summary Person Information: Name: ADINA PERRY Age: 81 Years : 1940 Sex: Female PCP: ADRIANA CRUZ DO Marital Status: Race: White Ethnicity: Non- or Language: Haitian Visit Id: Visit Reason: Fatigue; Post surgical problem; ABD PAIN, ABNORMAL CARDIAC ENZYME LEVEL Speciality: Acuity: Enc Type: Observation Med Service: Medical Arrival: 02/24/2022 13:07:19 Discharge: Dispo Type: Admitted as IP to this Hosp Address: [address] [place] [address] [address] [place] [id number] Provider Notes: Diagnosis: 1:Abdominal pain; 2:S/P hernia [...] Percocet (Nausea) Darvocet-N 100 (vomiting) oxyCODONE (Vomiting) [place] (Vomiting) Measurements: Height: 146 cm Weight: 49.7 [...] Physician: MELI ERIC, J Carlos Consulting Physician: Jay Power MD, MD, Mourhaf Referring Physician: Follow up: With: Address: When: ADRIANA CRUZ [address] [place] [address] [facility] () 03/10/2022 11:00 AM Comments: Appointment will be with the HOST COORDINATOR With: Address: When: Jay Power 03/03/2022 9:00 AM Comments: Call for followup appointment 2-3 weeks or if already scheduled keep appt. Type Location Start Finish [facility] Post Op 15 [facility] 03/03/2022 9:00 AM 03/03/2022 9:20 AM Confirmed Patient Education Information: Weakness; Abdominal Pain, Adult, Zihe-ik-Ziqs Normal [facility] Inpatient Patient Summaryon 02-25-2022 Inpatient Patient Summary [...] Pending Diagnostic Test Results None Pharmacy Information [facility] Previously Scheduled Follow-Up Appointments Thursday 9:00 AM EST With: Jannet ERIC, Jay Lock Where: [facility] General Surgery [facility] Inpatient Patient Summary ADINA PERRY :1940 Visit Date:02/24/2022 Inpatient Discharge Instructions Your Care Team Admitting Physician - MELI ERIC, Ilenefo Consulting Physician - Jannet ERIC, Jay Ayala [...] Jannet ERIC, Jay Lock Where: [facility] General Surgery [facility] Inpatient Patient Summary [place] [address] Patient Discharge Instructions PERSON INFORMATION Name: ADINA PERRY Date of : 1940 Current Date: 02/25/2022 15:24:21 PHYSICIANS Admitting Physician: MELI ERIC [facility] Primary Care Physician: ADRIANA CRUZ DO [...] Follow up: With: Address: When: ADRIANA CRUZ [address] [place] [address], [place] [address] [facility] (1) 03/10/2022 11:00 AM Comments: Appointment will be with the HOST COORDINATOR With: Address: When: Jay Power 03/03/2022 9:00 AM Comments: Call for followup appointment 2-3 weeks or if already scheduled keep appt. In the event that this physician does not participate in your insurance network, please consult with your insurance company to find a nearby participating provider. Type Location Start Finish [place] Post Op 15 [facility] 03/03/2022 9:00 AM 03/03/2022 9:20 AM [...] ? Stre (more content not included)... Normal [facility] Interdisciplinary Note - Reji e Manageron 02-25-2022 Interdisciplinary Note - [employer] CRM to room to discuss DC planning. Patient is alert, oriented and participates in DC planning. Patient is from home alone, has good family support. Patient daughter will transport at DC. Patient PCP, home DME and insurance reviewed. Patient is observation for abdomen pain and abnormal cardiac markers. Patient had a CT of abdomen and chest, see reports. Patient was rounded on by [facility], CRM waiting for updates. Patient is getting IVF. She is pending consults of gen sx, and cardiology. Patient was evaluated by PT/OT and they have no recs. Patient denied need for HH or PT. Patient provided CRM contact information, white board updated. Patient anticipated DC later today or 02/26. CRM following [facility] Comment on above: Result Comment: Elec [...] home safely and independently once medically stable. [facility] Main OR Intraoperative Recor don 02-25-2022 Main OR Intraoperative Record Normal [facility] Monitor Recordon 02-25-2022 Monitor Record [id number]:127 Normal [facility] Monitor Record [id number]:127 Normal [facility] Postoperative Documentson Postoperative Documents [id number]:127 Normal [facility] Troponin 9 Hr.on 02-25-2022 Troponin I.cardiac [Mass/Vol] 90.10 pg/mL Abnormal 10.10-27.1 0 [facility] Comment on above: Result Comment: Crit ical [...] High Sensitivity Troponin I Instructions For Use, [employer], November 2017) Performed By: #### 1 [id number] #### [facility] [address] [place] [address] Auto Diffon 02-24-2022 Basophils/100 WBC (Bld) 2.8 % High 0.0-2.0 [facility] Comment on above: Order Comment: Order Added by Discern Expert. Performed By: #### 1 [id number], 2754115, 1885684, 7803989, 43790650, 6145416, 1716078, 6707110 ####[facility] [address] [place] [address] Basophils/Leukocytes Auto (Bld) [Pure # fraction] 0.2 E9/L Normal 0.0-0.2 [facility] Comment on above: Order Comment: Order Added by Discern Expert. Performed By: #### 1 [id number], 9998282, 4369341, 1957290, 74514537, 3781466, 3045016, 2574422 ####[facility] [address] [place] [address] Eosinophils/100 WBC (Bld) 3.6 % Normal 0.0-8.0 [facility] Comment on above: Order Comment: Order Added by Discern Expert. Performed By: #### 1 3852655, 8323533, 5523016, 6147109, 49887598, 3953012, 2835765, 7948968 ####[facility] [address] [place] [address] Eosinophils/Leukocyte s Auto (Bld) [Pure # fraction] 0.3 E9/L Normal 0.0-0.5 [facility] Comment on above: Order Comment: Order Added by Discern Expert. Performed By: #### 1 0797617, 9550032, 8316840, 2097595, 07045150, 1412297, 0270070, 5718186 ####[facility] [address] [place] [address] Lymphocytes/100 WBC (Bld) 12.3 % Low 14.0-50.0 [facility] Comment on above: Order Comment: Order Added by Discern Expert. Performed By: #### 1 3292990, 6304887, 7737290, 3951338, 22787114, 9005598, 8944697, 9558598 ####[facility] [address] [place] [address] Lymphocytes/Leukocyte s Auto (Bld) [Pure # fraction] 1.0 E9/L Normal 1.0-4.0 [facility] Comment on above: Order Comment: Order Added by Discern Expert. Performed By: #### 1 1224316, 3897955, 4258910, 5887857, 11546911, 6714446, 2413483, 6359727 ####[facility] [address] [place] [address] Monocytes/100 WBC (Bld) 7.4 % Normal 4.0-14.0 [facility] Comment on above: Order Comment: Order Added by Discern Expert. Performed By: #### 1 7850613, 6417681, 3415678, 1868755, 00850153, 8550677, 5255160, 0550415 ####[facility] [address] [place] [address] Monocytes/Leukocytes Auto (Bld) [Pure # fraction] 0.6 E9/L Normal 0.2-1.0 [facility] Comment on above: Order Comment: Order Added by Discern Expert. Performed By: #### 1 6478073, 7922869, 7331667, 6672104, 33139221, 0076147, 5101526, 7338093 ####[place] [address] [place] [address] Neutrophils/100 WBC (Bld) 73.9 % Normal 36.0-75.0 [facility] Comment on above: Order Comment: Order Added by Discern Expert. Performed By: #### 1 1668781, 6588615, 1518354, 7209769, 26566625, 3350662, 4207381, 3797899 ####[address] [address] Neutrophils/Leukocyte s Auto (Bld) [Pure # fraction] 6.2 E9/L Normal 2.0-7.5 [facility] Comment on above: Order Comment: Order Added by Discern Expert. Performed By: #### 1 2926374, 9110039, 4235100, 6835503, 26908237, 1052453, 9358416, 4009014 ####[place] [address] [place] [address] BMPon 02-24-2022 Creatinine [Mass/Vol] 1.1 mg/dL Normal 0.5-1.3 [facility] Comment on above: Performed By: #### 1 8617611, 4989775, 4766419, 3468495, 97885200, 5575392, 2547586, 8135712 ####[place] [address] [place] [address] Urea nitrogen [Mass/Vol] 18 mg/dL Normal - [facility] Comment on above: Performed By: #### 1 5876392, 8958913, 3055210, 7613601, 26437769, 7272938, 1197748, 8723600 ####[facility] [address] [place] [address] Urea nitrogen/Creatinine [Mass ratio] 16 No Units Normal 10-20 [facility] Comment on above: Performed By: #### 1 0619446, 4060905, 9442506, 6391848, 38868195, 1085557, 6086873, 7278652 ####[facility] [address] [place] [address] Anion gap [Moles/Vol] 16 mmol/L Normal 6-16 [facility] Comment on above: Performed By: #### 1 5924485, 7789854, 8134806, 2444866, 27407026, 2590934, 4654389, 7209616 ####[facility] [address] [place] [address] Calcium [Mass/Vol] 10.5 mg/dL Normal 8.9-11.1 [facility] Comment on above: Performed By: #### 1 4902501, 0928287, 2774725, 3891133, 67620990, 4086842, 1594838, 3319224 ####[facility] [address] [place] [address] Chloride [Moles/Vol] 97 mmol/L Low 101-111 [facility] Comment on above: Performed By: #### 1 4476936, 9046944, 0304210, 4618683, 45665858, 5655894, 3607941, 5677185 ####[facility] [address] [place] [address] CO2 [Moles/Vol] 28 mmol/L Normal 21-31 [facility] Comment on above: Performed By: #### 1 7819459, 2183822, 8962917, 8102602, 99477392, 4892352, 2665302, 3496922 ####[facility] [address] [place] [address] Glucose [Mass/Vol] 137 mg/dL Normal 55-199 [facility] Comment on above: Result Comment: If t his glucose result represents a fasting glucose, interpretation should refer to the following reference range: 55-99 mg/dL Performed By: #### 1 2676814, 6389193, 1453820, 5680998, 82017446, 9671071, 9010757, 4483390 ####[facility] [address] [place] [address] Potassium [Moles/Vol] 3.5 mmol/L Normal 3.5-5.3 [facility] Comment on above: Performed By: #### 1 4591888, 7528724, 3090043, 2487946, 30128819, 1076297, 7410688, 7242662 ####[facility] [address] [place] [address] Sodium [Moles/Vol] 137 mmol/L Normal 135-145 [facility] Comment on above: Performed By: #### 1 3050075, 6330689, 6351110, 6838496, 98542799, 2027692, 8089639, 3383213 ####[facility] [address] [place] [address] CBC w/ Auto Diffon 2 Erythrocyte distribution width (RBC) [Ratio] 13.4 % Normal 10.9-14.2 [facility] Comment on above: Performed By: #### 1 9713710, 3689348, 4662519, 8693970, 87503366, 3686525, 5913818, 6782685 ####[facility] [address] [place] [address] Hematocrit (Bld) [Volume fraction] 39.5 % Normal 34.0-46.0 [facility] Comment on above: Performed By: #### 1 9686129, 0250377, 0277158, 3206258, 32924681, 9926280, 0673927, 6063032 ####[facility] [address] [place] [address] Hemoglobin (Bld) [Mass/Vol] 14.1 g/dL Normal 12.0-16.0 [facility] Comment on above: Performed By: #### 1 5820050, 4273409, 7449964, 8804327, 08950997, 9510726, 0217733, 4288329 ####[address] [address] MCH (RBC) [Entitic mass] 31.2 pg Normal 27.0-34.0 [facility] Comment on above: Performed By: #### 1 9854686, 4515366, 8283810, 0662640, 34501070, 4492695, 4423799, 5849839 ####[address] [address] MCHC (RBC) [Mass/Vol] 35.7 g/dL Normal 31.4-36.0 [facility] Comment on above: Performed By: #### 1 3552071, 0506787, 3751948, 1798474, 69443012, 0084231, 3984909, 5025582 ####[address] [address] MCV (RBC) [Entitic vol] 87.4 fL Normal 80.0-100.0 [facility] Comment on above: Performed By: #### 1 3547054, 4793353, 1853364, 4176239, 17373564, 6857518, 1097151, 9704585 ####[address] [address] Platelet mean volume (Bld) [Entitic vol] 8.3 fL Normal 6.4-10.8 [facility] Comment on above: Performed By: #### 1 1671948, 6130954, 5078194, 3650289, 79440086, 7643855, 3372471, 1109317 ####[address] [address] Platelets (Bld) [#/Vol] 295.0 E9/L Normal 150.0-500. 0 [facility] Comment on above: Performed By: #### 1 5834543, 7792635, 0903685, 1303521, 09348983, 2192523, 4099931, 3856986 ####[facility] [address] [place] [address] RBC (Bld) [#/Vol] 4.5 E12/L Normal 4.3-5.9 [facility] Comment on above: Performed By: #### 1 4149986, 3221710, 6096842, 6132207, 47725805, 3393233, 5772494, 3949404 ####[facility] [address] [place] [address] WBC corrected for nucl RBC Auto (Bld) [#/Vol] 8.4 E9/L Normal 4.0-11.0 [facility] Comment on above: Performed By: #### 1 6138550, 8059220, 7983964, 9037027, 05259452, 4892886, 9592352, 9774844 ####[facility] [address] [place] [address] CT Abdomen/Pelvis w/ Contras ton 02-24-2022 CT [...] ml's: 81 Rectal Contrast Given? No Normal [facility] CTA Cheston 02-24-2022 CTA Chest Exam Date/Time: [...] FINAL REPORT (more content not included)... Normal [facility] Consent for Treatmenton 02-05 Consent for Treatment [id number]#[id number]:127 Normal [facility] ED Clinical Summaryon 2021 ED Clinical Summary (Inserted Image. Elvia ble to display) [place] [id number] ED Clinical Summary Person Information Name: ADINA PERRY/[facility] Age: 81 Years : 1940 Sex: Female Language: Haitian PCP: ADRIANA CRUZ DO Marital Status: Visit Id: Visit Reason: Fatigue; Post surgical problem; [id number] PAIN Speciality: Acuity: 2 Enc Type: Emergency Med Service: Emergency Arrival: 02/24/2022 13:07:19 Discharge: LOS: 000 05:49 Checkin: 02/24/2022 13:07:19 Checkout: 02/24/2022 18:56:59 Dispo Type: Admitted as IP to this [facility] EVENTS: Event Name Event Status [...] 02/24/2022 18:56:59 02/24/2022 18:56:59 02/24/2022 18:56:59 ADDRESS: [address] [place] [address] [address] [place] [phone] PHYS DOC NOTES: MEDICAL INFORMATION: Prescriptions Given: [...] Abdominal pain; Abnormal cardiac enzyme level Normal [facility] ED Note-Physicianon 02-25-20 ED Note-Physician Basic Information [...] puff(s), Inhalatio (more content not included)... Normal [facility] Comment on above: Result Comment: Elec tronically Signed By: Jay Emery DO\.br\Date and Time Signed: 02/24/22 17:27 EST ED Patient Education Noteon 02-24-2022 ED Patient Education Note Normal [facility] ED Patient Summaryon 022 ED Patient Summary (Inserted Image. Elvia ble to display) [place] [id number] Patient Discharge Instructions Person Information Name: ADINA PERRY Age: 81 Years Arrival Date: 02/24/2022 13:07:19 Discharge Diagnosis: Abdominal pain; Abnormal cardiac enzyme level Primary Care Physician: ADRIANA CRUZ DO Provider Information Primary Provider: Jay Emery DO Advanced Pack Room Operator:None The exam and treatment you received in the Emergency Department were for an urgent problem and are not intended as complete care. It is important that you follow up with a doctor, nurse practitioner, or physician?s operating room assistant for ongoing care. If your symptoms [...] opioids can be used to help relieve sntaljvp-bs-uzvrlb pain and are often prescribed following a [...] be struggling with addiction, tell your health healthcare technician and ask for guidance or call [facility]?S National Helpline at 8-286-831-TZNR. i Source: [place] Department of Health and Human Services/Center for Disease Control & Prevention [facility] Medications Given: Med (more content not included)... Normal [facility] Hep Func Panelon 02-24-2022 Albumin [Mass/Vol] 4.4 g/dL Normal 3.3-5.0 [facility] Comment on above: Performed By: #### 1 1935580, 9706529, 5704920, 1258376, 42442134, 6691190, 5870105, 5126744 ####[facility] [address] [place] [address] Albumin/Globulin (S) [Mass conc ratio] 1.3 Normal 1.1-2.2 [facility] Comment on above: Performed By: #### 1 8494451, 6236560, 7769712, 7060647, 41015516, 1039116, 9440212, 3401447 ####[facility] [address] [place] [address] ALP [Catalytic activity/Vol] 72 Int._Unit/L Normal 21-98 [facility] Comment on above: Performed By: #### 1 4162541, 4288217, 5450379, 8548872, 83440604, 8371140, 6374471, 0710776 ####[facility] [address] [place] 7810357 ALT No additional P-5'-P [Catalytic activity/Vol] 16 Int._Unit/L Normal 6-46 [facility] Comment on above: Performed By: #### 1 5271123, 5669155, 8005077, 0037960, 20508759, 5212919, 7318607, 3985818 ####[place] [address] [place] 7810357 AST [Catalytic activity/Vol] 18 Int._Unit/L Normal 5-43 [facility] Comment on above: Performed By: #### 1 7106863, 8374871, 7912604, 5592217, 94383203, 8577229, 6214173, 4046034 ####[place] 2324157 Bilirubin [Mass/Vol] 0.7 mg/dL Normal 0.0-1.1 [facility] Comment on above: Performed By: #### 1 7948576, 1494007, 9155816, 8661864, 78677791, 9601349, 9976872, 8951690 ####[place] 2324157 Bilirubin.direct [Mass/Vol] 0.1 mg/dL Normal 0.1-0.4 [facility] Comment on above: Performed By: #### 1 4752108, 2027346, 8510299, 5401625, 59746688, 4096389, 0179066, 7834085 ####[place] [address] [place] 7810357 Bilirubin.indirect [Mass or moles/Vol] 0.6 mg/dL Normal 0.1-0.9 [facility] Comment on above: Performed By: #### 1 3661452, 2427434, 3547628, 5215728, 59221777, 2016170, 0316734, 1508439 ####[place] 2324157 Globulin (S) [Mass/Vol] 3.5 g/dL Normal 1.4-4.0 [facility] Comment on above: Performed By: #### 1 9329333, 6685592, 0280259, 1701231, 81041902, 6564390, 3525771, 4752352 ####[facility] [address] [place] [address] Protein [Mass/Vol] 7.9 g/dL High 6.0-7.8 [facility] Comment on above: Performed By: #### 1 3106472, 0895204, 9734440, 2314285, 24046471, 8329702, 5359463, 3559668 ####[facility] [address] [place] [address] Lactic Acidon 02-24-2022 Lactate [Mass/Vol] 1.5 mmol/L Normal 0.5-2.2 [facility] Comment on above: Performed By: #### 1 3508188, 1751687, 2385394, 1321097, 53206349, 9601032, 6755172, 7350057 ####[facility] [address] [place] [address] Lipase Levelon 02-24-2022 Lipase [Catalytic activity/Vol] 43 U/L Normal 13-58 [facility] Comment on above: Performed By: #### 1 6197935, 9606416, 2039743, 4503366, 69718692, 1789321, 8950750, 1458294 ####[facility] [address] [place] [address] Monitor Recordon 02-24-2022 Monitor Record [id number]#[id number]:127 Normal [facility] Monitor Record [id number]#[id number]:127 Normal [facility] Operative Reporton Operative Report SURGERY DATE: 2021 IMAGE ASSEMBLER: Kylie Costa, Certified Medical Laboratory Technologist INDICATION FOR SURGERY: The patient is a 81 year old female with previous abdominal hysterectomy performed in an open fashion in the presenting with a 2 cm incisional hernia that is symptomatic seen on computerized tomography scan from [facility]. She is here today for [...] condition. Jay Power M.D. lr Dictated: 02/19/2022 [id number] Transcribed: 02/19/2022 Normal [facility] Comment on above: Result Comment: Elec tronically Signed By: Jannet ERIC, Jay Lock\.br\Date and Time Signed: 02/24/22 07:55 EST Troponinon 02-24-2022 Troponin I.cardiac [Mass/Vol] 105.90 pg/mL Abnormal 10.10-27.1 0 [facility] Comment on above: Result Comment: Crit ical [...] Sensitivity Troponin I Instructions For Use, [employer], November 2017) Performed By: #### 2 538597 #### [facility] [address] [place] [address] Troponin 0 Hr.on 02-24-2022 Troponin I.cardiac [Mass/Vol] 96.00 pg/mL Abnormal 10.10-27.1 0 [facility] Comment on above: Result Comment: Crit ical [...] High Sensitivity Troponin I Instructions For Use, [employer], November 2017) Performed By: #### 1 7963521, 7644098, 1987162, 9843365, 49304740, 6953853, 6423793, 5224154 ####[facility] [address] [place] [address] Troponin 6 Hr.on 02-24-2022 Troponin I.cardiac [Mass/Vol] 105.10 pg/mL Abnormal 10.10-27.1 0 [facility] Comment on above: Result Comment: Crit ical [...] conjunction with clinical conditions of myocardial infarction. ([place] High Sensitivity Troponin I Instructions For Use, [employer], November 2017) Performed By: #### 1 3567924 #### [facility] [address] [place] [address] UA With Cult Reflexon 2021 Bilirubin Ql (U) Negative Normal Negative [facility] Comment on above: Performed By: #### 2 689009, 48701587 #### [facility] [address] [place] [address] Clarity (U) CLEAR Normal Clear [facility] Comment on above: Performed By: #### 2 483417, 08896675 #### [facility] [address] [place] [address] Color (U) YELLOW Normal Yellow [facility] Comment on above: Performed By: #### 2 483538, 58013292 #### [facility] [address] [place] [address] Epithelial cells.squamous LM.HPF (Urine sed) [#/Area] 0-2 Normal 0-2 [facility] Comment on above: Performed By: #### 2 079555, 36691798 #### [facility] [address] [place] [address] Glucose Test strip (U) [Mass/Vol] Negative Normal Negative [facility] Comment on above: Performed By: #### 2 054048, 95373091 #### [facility] [address] [place] [address] Hemoglobin Ql (U) Negative Normal Negative [facility] Comment on above: Performed By: #### 2 697622, 69305183 #### [facility] [address] [place] [address] Ketones (U) [Mass/Vol] Negative Normal Negative [facility] Comment on above: Performed By: #### 2 224687, 49014218 #### [facility] [address] [place] [address] [place].plasma/Lithiu m.RBC (Bld) [Mass ratio] 0-3 Normal 0-3 [facility] Comment on above: Performed By: #### 2 310549, 19197037 #### [facility] [address] [place] [address] Nitrite Ql (U) Negative Normal Negative [facility] Comment on above: Performed By: #### 2 424632, 02700670 #### [facility] [address] [place] [address] pH (U) 7.0 [pH] Invalid Interpretation Code 5.0-9.0 [facility] Comment on above: Performed By: #### 2 523275, 44910076 #### [facility] [address] [place] [address] Protein (U) [Mass/Vol] Negative Normal Negative [facility] Comment on above: Performed By: #### 2 969365, 94416512 #### [facility] [address] [place] [address] Specific gravity (U) [Rel density] 1.010 Invalid Interpretation Code 1.005-1.03 0 [facility] Comment on above: Performed By: #### 2 485822, 84168929 #### [facility] [address] [place] [address] Type of Urine collection method Clean Catch Normal [facility] Comment on above: Performed By: #### 2 298592, 50759937 #### [facility] [address] [place] [address] Urobilinogen Qn (U) 0.2 {Gemma'U}/dL Normal 0.0-1.0 [facility] Comment on above: Performed By: #### 2 553675, 62740067 #### [facility] [address] [place] [address] WBC Auto Ql (U) 1+ Abnormal Negative [facility] Comment on above: Performed By: #### 2 425505, 16418518 #### [facility] [address] [place] [address] WBC LM.HPF (Urine sed) [#/Area] 0-5 Normal 0-5 [facility] Comment on above: Performed By: #### 2 359446, 70193627 #### [facility] [address] [place] [address] XR Chest Single Viewon 02-24 XR Chest [...] Harrell DO Transcribed by: PRESTON Technologist: JOSEPH, Normal [facility] eGFRon 02-24-2022 GFR/1.73 sq M.predicted among blacks MDRD (S/P/Bld) [Vol rate/Area] 58 mL/min/1.73 m2 Low >=59 [facility] Comment on above: Order Comment: Order added by Discern Expert. Result Comment: eGFR is race adjusted. AA=. Performed By: #### 1 1280232, 6196913, 7457383, 8533737, 23080015, 0215298, 8061561, 4050526 ####[facility] [address] [place] [address] GFR/1.73 sq M.predicted among non-blacks MDRD (S/P/Bld) [Vol rate/Area] 48 mL/min/1.73 m2 Low >=59 [facility] Comment on above: Order Comment: Order added by Discern Expert. Result Comment: Nuclear Engineer serene kidney disease could be indicated at eGFR's of less than 60 mL/min/1.73m2. Kidney failure is indicated at less than 15 mL/min/1.73m2. Performed By: #### 1 9899836, 1283936, 0608933, 8692277, 21194366, 1883383, 8831974, 7235086 ####[facility] [address] [place] [address] Consent for Anesthesiaon Consent for Anesthesia [id number]#1.00CD:127 Normal [facility] Discharge Instructionson Discharge Instructions [id number]#1.00CD:127 Normal [facility] IntraOperative Documentson 1 04-22-2021 IntraOperative Documents [id number]#1.00CD:127 Normal [facility] IntraOperative Documents [id number]#1.00CD:127 Normal [facility] Preoperative Documentson Preoperative Documents [id number]#1.00CD:127 Normal [facility] Preoperative Documents [id number]#1.00CD:127 Normal [facility] Consent for Treatmenton 02-04 Consent for Treatment [id number]#1.00CD:127 Normal [facility] Inpatient Patient Summaryon 02-19-2022 Inpatient Patient Summary [place] [id number] [facility] Clinical Discharge Instructions PERSON INFORMATION Name: ADINA PERRY [facility]#:[id number] PHYSICIANS Admitting Physician: Jay Power MD Attending Physician: Jay Power MD PCP: ADRIANA CRUZ DO Discharge Diagnosis: Comment: PATIENT EDUCATION INFORMATION Instructions: Post Op Patient Instructions - FT (CUSTOM); Laparoscopic Ventral Hernia Repair, Care After Medication Leaflets: Follow up: With: Address: When: Jay Power [address] [place] [address] [employer], [facility] [address] [employer] [place] [phone] Business (1) In 7 days 02/26/2022 Comments: Call for followup appointment MEDICATION LIST New Medications [facility] [employer] [address], [place] [id number], [phone] acetaminophen-hydrocodone ([place] 325 mg-5 mg oral tablet) 1 Tablets [...] Milligram By Mouth every day. Comment: Jd [facility] Main OR PACU I Recordon 02-04 Main OR PACU I Record PACU Phase I Docum ent Type FT Summary Primary Physician: Jay Power MD Finalized Date/Time: 02/19/22 12:21:31 Pt. Name: ADINA PERRY /Sex: 1940 Female Med Rec #: [id number] Physician: Jay Power MD Financial #: [id number] Pt. Type: A Room/Bed: Admit/Disch: 02/19/22 05:56:04 [...] 12:21 Pavithra Saeed RN 02/19/22 12:21 Normal [facility] Main OR PACU II Recordon Main OR PACU II Record PACU Phase II Document Type FT Summary Primary Physician: Jay Power MD Finalized Date/Time: 02/19/22 16:14:48 Pt. Name: ADINA PERRY Umberto/Sex: 1940 Female Med Rec #: [id number] Physician: Jay Power MD Financial #: [id number] Pt. Type: A Room/Bed: [place] [address] Admit/Disch: 02/19/22 05:56:04 - Institution: Case Times [...] during the perioperative period Finalized By: Jennie Gacria RN Document Signatures Signed By: Jennie Garcia RN 02/19/22 16:14 Normal [facility] Main OR Preoperative Recordo n 02-19-2022 Main OR Preoperative Record PreOp Document Type FT Summary Primary Physician: Jay Power MD Finalized Date/Time: 02/19/22 08:51:16 Pt. Name: ADINA PERRY Umberto/Sex: 1940 Female Med Rec #: [id number] Physician: Jay Power MD Financial #: [id number] Pt. Type: A Room/Bed: Admit/Disch: 02/19/22 05:56:04 [...] Signed By: Olivier Loza 02/19/22 08:51 Normal [facility] Monitor Recordon 02-19-2022 Monitor Record [id number]#[id number]:127 Normal [facility] Operative Reporton 2 Operative Report Patient: MAYA [...] reparations continued for the proposed operation.. Normal [facility] Comment on above: Result Comment: Elec tronically Signed By: Rk Moreno Jr., DO.basia\Date and Time Signed: 02/19/22 08:20 EST Outpatient Surgery Discharge Instructionon 02-19-2022 Outpatient Surgery Discharge Instruction [place] [id number] Patient Discharge Instructions PERSON INFORMATION Name: ADINA [...] up: With: Address: When: Jay Power [address] [place] [address] [place], [place] [address], [facility] [address] [place] [phone] Business (1) In 7 days 02/26/2022 Comments: Call for followup appointment Pharmacy Information: You may receive a survey from [employer] asking you to rate your care experience. Your feedback is important and will help us understand what we do well and how we can improve the quality of care we provide to you, your loved ones and our community. It?s an honor to serve you. Thank you for choosing [facility] HERE ARE THE MEDICATION CHANGES THAT OCCURRED DURING YOUR HOSPITAL STAY New Medications [employer] [address], [address] [place] [id number], [phone] acetaminophen-hydrocodone ([place] 325 mg-5 mg oral tablet) 1 Tablets [...] and water are not available, use hand assisted living home director. ? Change your dressing as told by [...] ? Do (more content not included)... Normal [facility] Patient Education - Texton 1 04-21-2021 Patient [...] and water are not available, use hand assisted living home director. ? Change your dressing as told by [...] care provider approves. General instructions ? Take vzpd-ahf-owetbqo and prescription medicines only as told by your health care provider. ? To prevent or treat constipation while you are taking prescription pain medicine, your health care provider may recommend that you: ? Take cyfh-wbq-yketoaq or prescription medicines. ? Eat foods that [...] Reviewed: 11/12/2016 Elsevier Patient Education ? 2019 [employer] [facility] Progress Note-Physicianon Progress Note-Physician Patient: ADINA PERRY Age: 81 years Sex: Female : 1940 Associated Diagnoses: None Author: Rk Moreno Jr., DO Postoperative Information Post Operative Note: Post Anesthesia Care Unit. Anesthetic utilized: General. Health Status Allergies: Allergic Reactions (Selected) Moderate Percocet- Nausea. Severity Not Documented Darvocet-N 100- Vomiting. Problem list: All Problems BMI 20.0-20.9, adult / SNOMED CT 0615159048 / Confirmed Incisional hernia / SNOMED CT 801178207 / Confirmed RLQ abdominal pain / SNOMED CT 315507799 / Confirmed Ventral hernia / SNOMED CT 0539519344 / Confirmed Weight loss / SNOMED CT 997053715 / Confirmed Resolved: Anemia / SNOMED CT 857753624 Resolved: Fecal incontinence / SNOMED CT 153934819 Resolved: History of colon polyps / SNOMED CT 7344567212 Resolved: Nausea and vomiting / SNOMED CT 73229149 Resolved: Watery diarrhea / SNOMED CT 639026266 Physical Examination Vital Signs 02/19/2022 14:13 EST [...] to self (more content not included)... Normal [facility] Comment on above: Result Comment: Elec tronically [...] Histories Past Medical History: Resolved Watery diarrhea (474012102): Resolved. Fecal incontinence (469041720): Resolved. Nausea and vomiting (28334457): Resolved. History of colon polyps (4013234730): Resolved. Anemia (332678956): Resolved. Family History: Heart disease Father Primary malignant neoplasm of lung Sister Diabetes mellitus type 2 Father Brother Procedure history: Colonoscopy ([id number]) on 01/17/2022 at 81 Years. Comments: 01/17/2022 11:03 EDT - Hernan MILLS, Jennifer ordonez, diverticulosis EGD - Esophagogastroduodenoscopy ([id number]) on 07/06/2020 at 80 Years. Comments: 01/09/2022 16:03 EDT - Rajwinder Ho Dr Colonoscopy ([id number]). Comments: 01/09/2022 16:02 EDT - Rajwinder Ho 2010 Esophagogastroduodenoscopy ([id number]). Comments: 01/17/2022 11:03 EDT - Hernan RN, Jennifer normal, gastric biopsies section ([id number]). History of hysterectomy. ([id number]). CE - Cataract extraction ([id number]). Procedure on back ([id number]). Arthroplasty of knee ([id number]). Bladder operation ([id number]). Social History Social & Psychosocial Habits Alcohol [...] Auto 69.3 % Lymph Auto 20.0 % [place] Auto 8.7 % Eos Auto 1.0 % Basophil Auto 1.0 % Neutro Absolute 7.0 E9/L Lymph Absolute 2.0 E9/L [place] Absolute 0.9 E9/L Eos Absolute 0.1 E9/L Basophil Absolute 0.1 E9/L Glucose Lvl 94 mg/dL BUN 25 mg/dL HI Creatinine 1.2 mg/dL eGFR 43 mL/min/1.73 m2 LOW eGFR AA 53 mL/min/1.73 m2 LOW BUN/Creat Ratio 21 HI Sodium Lvl 140 mmol/L Potassium Lvl 4.7 mmol/L (more content not included)... [facility] Comment on above: Result Comment: Elec tronically Signed By: Rk Moreno Jr., DO.basia\Date and Time Signed: 02/19/22 06:44 EST Coding Summary.on 02-10-2022 Coding Summary. CD:[id number] Gh0bWw +PGhlYWQ+KA6GYZHsZ81eaCUzk W5GR0pNFI9JFMMFMCXNXL3ODL4 hfGJ6EJvbO3BoyrXb WetcnOXtMI38ZUu1JUJ1aGoeRS lzuT6fpTNnM6t6HzLqHA22aC48 ZVreRQZvLhN5RsNszojgcAUd M3xjBmTmzRIjItc+PHRhYmxlIH yoSHKbTBfmYCEfHiFvvFnhAP6g Wm5iYFPzUSTseAkoaBIbUaSd w0wdGPAxNDnjOB5rsVygM0BpsF M7PTQcc8m1Fv71iJT+PHRkIHN0 tPyqRPdhc931QxYbw4uqMJS0 gUVuBJoxCSS3K37es7B8EISlQQ CdIPU9nDK4vN7mdWybgytlI5Nt nXYdCyT1VMN9wJAxrQ9wmPca uibqpP2tIfj+D22KUE5OLDLMOA 2QTej3H6UqUppmmQM+TU98YUUo LS55mENxeQRfz6rofUp5LoXa DUMuTZK8nHljBJllc4TbLKGkN5 2xlYFjb8Y2OHQiwYvquBWiNlEl qZL6zM5gCKjomptar9tjloxx Ohhak9bovn93mS90J44oWLdpOS HvKWH2UOOxIGTdtOnznj2apK3z Ii8+DEftc9zbr0tpyRm8IjUy ZNIxldPucLtaFJL4o5McHl63J8 UgkNtza1SrIxp2sp70nKMyi4V0 pAR6YWweQTGasS8vAEnyDvB3 BWAmZlSybM31aTFlVJvuZq7gkU xehXwrTY0eATUenmcdRWXhuL8w YIZjuYGqzDelUM0wYZKcufgc z030VmRiVBN7UXZzzNMwW6VcsC 5gKgBdKOGuWXFyO4IgbTBzTLxj W590KUexAdT7NBMkkyQcH1Hs LOVmmOxfZoT8p8K1Df7Nx5Xupk qxEMV7YEmoEJUaEkO2GdReZwR3 F6DjNnh4WDDreVlkLT0rZ2St JMHaicwcznxvuJZ1CYDnUFArkB 06yDJnEUwsQh1rj7S1z973POJo VVMlpB84Pe9iaTwnSZQfsXSI mO7ciewxi6dhmosgIkSrTLZdJN i8HTe2GFUsrEswQmOoCJE7JqD6 LJC9hBLabX6nvAiwjyjywA8f Oyc+B23ihZ7gAOC9BUM7lyvyZQ NakcWzQM50IZ36S5ZhJghkoCQi bGU+TZEaycOmsUytFQ6fNsJw i0yjl0GsSEcbU0FrTDFtKEppXe s2BPEgIBG2wUR2oB6tPMJqQLfs o9K8pAT2F9HrehEcet7bu5qg ZHXtWFcwE94cwLHmw5C7KIIrrV P3OGJwxXdiGrBraB91Tjx+PGNv uXrft7QmKiyhk7rrq3xeiUd7 SkFmAVShyvUqcGjyWLB9i9OrOu 98C84jGTrpKFYbDZLcCLEzRIDt oNghxj6weX2jUr8+PGNvbCB3 hVF8gN1yFZVsJuE0SQusF759Dt BijZMvRkrti9yjp7ayjHn9YvGe ZSHbzoWubCsiGAO0b5HoIf13 T43gIMeoSKIxXVVeGWKuGYLerG qiwz7mdL8bVm7+KB2eu0aqmt52 zI70wSR+DASiMZK7fVtjGVnl AQGgeQ6oPMnoBuD4QBDgNiDadF 81aLWyZZsyQd3hvSzhnOhgHN1u EPEsvkheh271OaCve5pqWEAe nCRdWYxqBYS3R99ty3M2XBBdGB XfSTJ4fUX2yZ8hfHysbdusjCWa zYlxxqTcyGsxUUwuIVmxH039 IHRvcDsnPlBhdGllbnQgTmFtZT r0V3YeApf8AMTfyMvkTF1diHXz KHzyFh7ykQgdqBziCD1dWEBf acood852LgQbj0qwDMKcmPVbLA waENH6T73xw6B2MKShEPLdCAD7 nDD2jW6iqJjuceunzSBvcVla owCzpMqaWOchGTvzM490PYHllU lrRlTifpHyRBBceOV3RR53AO46 qKJeb0Z1pGO9T1KwHRHinxef aniufVM2LXGzNAXixB31Yn9rfQ msMz9hSFAvQOX2WEAagSFsG5Mk sE8iBdAaTKLhYZNgW0JngEPd ZHryM113TTdxOxF3TVFinkVsU5 MgKOVorYieUtR7s7G3Vs9FW7J8 GA91AV04uYWef4R9rTJ2Q2Ed UHBkdezqloteaVS0PJBrUNJrqV 98Ih8qlSfpHg4nIOOwMPT6ZWBq iMGjV6NltJ1pBsNmOCCkMWBr C8PjkPDaLUgpE844UDtoMsS5RR LvneCxN0TlDJVehAdwDbQ2l9U0 Rm4VSCj1VD16AQ36kMGzm5N4 mIO8G9OoWUYutrcohbgptAC4DO XoMLZpsX36Hr7mhNciQo0eSZCe HZO2YEMrnPVuR3QniQ2oCvEm QDVxQSGsY6NkjIPmIXymU770ZP xzFrL6VNKbbnJrY0GaOJHoyLza CcW9e2C2Bu1NTPHwVM20XDI6 vUD9WO10HS08I4OzXrzcdYQldO U+PHRhYmxlIHdpZHRoPScxMDAl QaRjnYuiVA2zKp3xYVFbVBWo mIeviOItCxRhe2qgBKPzTZqqMM 6lnVqbN9JbxJK1STJko6k0Vg21 B94wM5DseDC+IQFzpGW7oJP4 cO2gYqZoIcM6EXpcU932WnKofO AnIqhah9uvk4qdlXf0WjT5QBJt qxImiTqoKDI4a9XzTr44S65n IHdpZHRoPSIxNSUiIHZhbGlnbj 4uzE5mVz5+NRKfiMX5yMB2fA6q IgLyJgU2QNqjB610VyDnaDDi Biahi2vbp3ymxEy6ZoYeWUMtut MljYodHUE2y1UkKe15V5PsvVps u7HrQnu4jr09tCAjx0D1eCN7 R4WxLKMvdkocfGBnrBscPJ6uME WfwqnxRHGgjZ6zKYMpP5k0JhAv LdJ7LVlnQ9HiadT0POLxhBJc BSdfHVN0C99tk5J2HNFrSFAcOP H8sHS8tA3meXhdmtnsyFCmlXyo xjDutKryRGumTNbvP623WSRo fMbpKTOrdP4iQSAjiKIrwJlqWA 2jNBPugbziKnHNU6OSE6QxBCBL FOHXH0fVFG54AE00sMEbc3J3 wSA2F3IwSNTzyuybtjmlyJG2CV JuIQSruM79rNCpYMnoUr1en1R0 g245YPQqXSRicJ24Sx9ciNwe INNfqZFDxT8yagdtz7ojcnvdGe UpGCDcNOw9BHa2REWeaMkgQsNv NWH6GvA1PHE3iVJbrR4qdEnz mpotiB7wVul+IHCgEUOdURd6Aq wvdGQ+ULLfHWF7kDqfPEqcNXEi iK9mDABbD5k9YxHiMqP7CHub W0MaXPQgudfsVz33rA3uMjFuOo M6XEdkH5XlxcA7OWSzeXTlBCgv LRM2I84di1U9SRAwPQLhURD9 uUS1fU0qgBfyrxgxwWLigOvjtl MldImkONwaFLswG012YLIqyOap Ylx0TPjaHXZwPF40YP67vWKq t8N7xZP4M4UtFZIqynyigczqlH U6IYKxTHYypZ74qJQjKAyiNo7z r1Y4k207FNEvWDLdtG20Ju3u nSocXGEwwKZFrU1edujtc2eiep mfSbIlQWTkZFv5YDm8RQQmoRfu WrOeUDL7JyP0ROF0mQYhsK7r pAdmdoijxY6bUox+RmVtYWxlPC 51WE76hTVex2C9gHE8A8XxZKPt gcvclfgquQR2LDJvRUZcyE88 aSFwVKavTi7sw0N9y427FFTySH AfyJ33Ry6czRgkMLWimYTOgJ4m zqodg7jvpehcXnPsYFIvTBx9 FPs7JDXcvObqNdDjTTZ5PoY0DX P2tXFgfU0nhEcfkkdkuM2rDtv+ O9V1eHS6bMGwnPkcvFD+PC90 mo60B8BnKgwsMze4FIQiYUP0oS Y3iX4qCVNsDVoqp6E5tTJ2K7Gg xnTdaf7tj8haYTIqCLmgE59o fVVdn4P4RHOmzMZ1AGLnpYqtBw UsqI76Vqs+TWEmbPbhy5ZfRewt u6nlw0tyjTb0LjEsMWAjkcVs wAzcUHB9b9VbQo78B04lPHunKT FqULQzNDPsFRQujHdxif1czC4w Ii8+HWJatFC9wKP7wO1eTqMl XtF7NWcgC414UiDjoCLhSxlpx0 hpf3pzjTt7HdHlGWBvraLnoYpl EMI9t2SvJc80T4AxjCtmk7Me Hjs3dy58oBWll7D0kAV3E6HxBS BeyueviGDqpFifLY8jHCGghjtd VGXmlM6jTTGmC5p7FqPyJtU6 VUrbA0YyafZ0CEZlfOWzQNNojV BZbH4baumpq0eobqkfPbHlZTWj KTo7SEg3EHGngXguWtRoSTR5 ZmK4IFB0dHIrtB0epFzswswfqD 9wOyc+NEg2n0drbXXzES4mgYL5 SU91WG18hLGar6U0vCF9Q4Kc PLOfxfmqzualmYN3UMZjOSGktA 27Vd6iuDpwJb1lALOvZDZ9QRVe xJNyJ1AlzR2aCeThGKIcRVGk B2HzmSEkEGjxH078HKlnIbB4IX VjyhWoI3BeBOLnvGxcOzQ3f5F6 Fx2FBL02EQ05XW64mBOui6H8 tWF0F9IlIQCdfqfrynyblDY2GD QfPYMqlR83Ax7fsTanZz1rBHAp POO1QJXodJCgY2JqxD0gRlPr DWUnEJUbO1EejUXlQDtbB639EY tmXsO6QSJunbWuU0VhWUNdnSef XeZ9b5J1Be8XQd24WG85AC75 sLQcf7B2iFJ9E2NtYGZflqfygi phzNY4ABLdWPVpjB93Ue9oaFgh Yf0mHUQhZWL1JMNqeMMuP3Ss zG2hHoGuEOGkKFWkH3IcaYRyVQ fmV248HDizUmG4EGBvpsWdM5Yt ZICvyQquRpS8v6W1Ff7NQDvl ncs7Y9RpQczziRB+EZ64WTXcPV 18jZEuuEHrs6zwaYa4JvKcLGTa YQI9nEagOImvw1BfPHFlC03h bGFw (more content not included)... [facility] Outside Recordson 02-07-2022 Outside Records [id number]#1.00CD:127 [facility] Consent for Procedure/Surger yon 02-05-2022 Consent for Procedure/Surgery [id number]#1.00CD:127 [facility] Outside Recordson 02-05-2022 Outside Records [id number]#1.00CD:127 [facility] Consent for Treatmenton Consent for Treatment [id number]#1.00CD:127 [facility] XR Chest 2 Viewson 2 XR [...] V. 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 female here [...] pelvis with IV with contrast performed at [facility], which showed a fat containing ventral hernia. However, on review of the actual report of that CT scan from 11/12/[address] [facility], CT abdomen and pelvis with contrast to rule out diverticulitis. There was nothing mentioning a hernia in the body of the report nor in the findings. [facility] did not push through the images to our PACS system. I am unable to review these myself at this time. Our office is in contact with their radiology department to rectify this mistake. After calling and speaking with our radiology department and [facility], they have put the images [...] after patient or guardian consented to allow [employer] to record this visit. ANA M sales and service specialist and provider reviewed before signing. ANA [...] 30 mg, (more content not included)... Normal [facility] Comment on above: Result Comment: Elec tronically Signed By: Jannet ERIC, Jay Lock\.br\Date and Time Signed: 02/03/22 11:22 EDT\.br\Electronically Co-Signed By: Radha Mcgee\.br\Date and Time Co-Signed: 02/03/22 11:04 EDT Reminderson 02-03-2022 Reminders - From: Marly Riggins MA To: Marly Riggins MA; Sent: 02/03/2022 10:11:05 EDT Show up: 02/06/2022 10:10:00 EDT Subject: CT Imaging Reminder/Recall CT done [place]12[place]20[place] [facility] Spoke with [facility] and they pushed through the imaging Look at PAC Received imaging per Dr. Power [facility] RAD - CT Reporton 01-31-[address] - [address] Report [id number]#1.00CD:127 [facility] IntraOperative Documentson 1 IntraOperative Documents [id number]#1.00CD:127 [facility] Postoperative Documentson Postoperative Documents [id number]#1.00CD:127 [facility] Coding Summary.on 01-21-2022 Coding Summary. CD:[id number] Gh0bWw +PGhlYWQ+QJ7EGTVyU59gfRTzz V3BO0aNAL3UTZJRJCSJYM0HEH2 voBI4UUdnL5XxqmDy NnhkiPPkTI94OJn2ZME2cBmeLG addF4nxKXtJ0v9QjHpXD15eR63 MSyoFPMuFmQ9PvGfxsmfkVHg O0ksDrMgiRDgXny+PHRhYmxlIH qpLMFgTMomHUYqXsVpiRcnCD9p Ox8yNEMxUUHqaNxfzOLuXfPd j2drCHRkFErmEG2njCfxX3IqgX Q9TXCzi9s3Wc94pGF+PHRkIHN0 eVcnMLppv597WwIqx9dmVWI0 pHNtCDdtUQF2B48xy5C6MEFsYW XvEFN2aTP5hK6zpAczgrzoF1Kr lDSbKfJ7XGE7oPSwkR8jjAtc prbrlW1rPfr+H69WAV8HDGHQKU 6XPpl1J1EsQcuekTI+KP07VYSl KY89kVOpuDXwr5wzbLi3SwBp WLUxIMP6jObwGDnpx7KfLWZaD9 1dfRPeo4V2VBBenWfkjAGzYlCh mOA1lO6dTSbjhatjg9sllsef Qmuls5hhxz46pI26P80qJDmtUB SkYFB7TCAoHWNllVkaxl6fzK4k Ii8+JRaed8mji3jktUd2MzVk PRImjbFjjVfbJNI3t0WcHt40Z4 FawXohq1ZpMjk6pv55zHGqv4C1 pJC5JJdwUQEjqS0yZTdgAkH2 FVZdCkTojH07iSUvWZieZh2sgS pbeHdgCN2iTPOvraftCINjhL3c OWGigUBmmUdeBP1aFMEcbbwy m344OcWkHWX0SSEanSEtF6NmrP 1oYdDgTVUvZNJjL9WowTFjHMjk O750RIrrHjW3IMBvutZfL8Jc MZZeoYtrTrU6m0S4Ks3Ej7Lqtn vgRPA1IMlkIYMtOnH0AzMfThS7 Q2HjTlh1IKMqyLmtIS7cL5Yf HRNgnngtqyoalLQ6MBEbSTBtdV 99mXVpQEatYc7rj5Z0u685OEIe QYXhgS07Su4rmOfnSSHneCHA oF4rtokmw4jtcvnuKkWaWANlWI s1TWh9ZXSyzRykOtImBQN9FeO5 GYW4wMXojA0hbZseiwiveY9r Oyc+H33aqA7eYLI5MTP8yrloNO HeitGaIM42ZP24V9UaNpehwEHt bGU+INDwnfDgqXioFC8mKtJz z1zrf5KwCIhpM4HfGSGzXRfgOo d4AQNnYHZ7hPW2nF6aICGsMJpr g9U3eQV8A6WrrbTgbw4nm8la GXFoYPohB81ssUCvp7X6ZCYmdF B1NHGyxLhgJfIelY92Hzk+PGNv pJoxq4ZjOxghk9otw8cmvUt5 MfTfSDNjneUhjKhvRXE8v2MaTb 72F16cICrnBWTbJVHtSACgKOBt vMnkdi2zvR4jWe9+PGNvbCB3 aQY2pX3dAXXoJoL1FLoiN583Pj CvzDNhDjdwg1pft8ydaHx4MfNw GUBfiuXjlNfrTMU3l9RhEi32 Y89gWEyjYWFbJDFpYJZvDMJblZ ibst4azJ7uRw3+NK2vs4agnt18 oY22jXA+SWRuXPY9oIwoSBxj TRTpuH3aBNmsGiQ3TXRkRmUpxI 93wXHbDMbaPs6qyCytzJfeEF2r COHyzshvy030ZjZft8yyXFXb cBDqTUvoVMH5Z11xt2V2NDAdTI ZmQPW7vVM6gV2htBplvbkxmRMm vNgbdqTyxMpfJZdlRZrxW841 IHRvcDsnPlBhdGllbnQgTmFtZT z1V7LtQwe4VIVmrFseZG3vsEJq CPoiBu9bzBubfEekBP0kZVNe fonjc926GrFrc6ytJFYuwZNrDE rpXJU5V64hy6H1JWUpSPLzRBV0 yAI7yU6bzMpfaxjreUUbiCci pwAqmQuqNBxjKMoxL719ZUCasR mlGjDrvbSfIYHkhRI7SS10VP90 nLMov0T3gCX3K7LxUTTnkyab bqdawYF5KRHlJCXkjW25My5bvP glYp9kUOIoCMY5IWHswZBcW7Kt gB1gCnIxBTAjYPVfU7BqpUYp RCdwG698BOtnAdQ5CDCxcnExS0 SyAHMpoIbeTuC8f3U3Sg7ZT1K0 YB35CN45oVLfx3Y4eEM0L6Hc YTZpbcklmvndqZB0OOMfYWWnsM 41Ra8tqTmwRt6kTRPnXWL0XSBl kHJjG2BdaL6sKpTuXHZxMSBe P9RbrXDmKPwxY549HZesTbB6IP UeovLvX5PlGNRngLzqBtR0c7J0 Zp4NMPm4UB62MU91pYRpr5Z0 cBL8W0QsKVWjqnruhmwohJL7WJ YoKZVtpY67Xg4ikTzrTx5qKSAq GTC8UKXprNSxZ0DkmI7gShCf RVFfOPWkN2IogEAiQJknU811OK krUyC0QQKrniFvT1KyIHAhdPin RgT2d2E8Vd9ZRBBzBV30PGJ6 zMR0PE44QB94F9ClEishkMTvbB U+PHRhYmxlIHdpZHRoPScxMDAl UwJurVexOW5dNk5oIQIcMCHc yUbttGIcVxCmo3grAKSpZRqsHP 4rdSurO4ZlnNT3KWHmw3w3Ka86 Q08pL2IlkNN+ZHAobZP7bHU7 kQ3hQfDfCkR0PCigF734LpWzjQ ZlDfevx3ypu8cwaFp0IhD9SNZz ijInkTwoGUX4m6IbXs58U87p IHdpZHRoPSIxNSUiIHZhbGlnbj 6pmS7zWq6+COOhhTA0qNT9lC4n XsGhUgS7NQxwA725NkYodRTj Kjczq6ten2cfaVi0RbFwJFFpsm IhgSdiRSW0g2YdDm70C4ThmCib k2EoAfc4us61dPAdt2Z3hSA2 X4GiIAYguzykuXQboNqiQH8oXC BhkjkaIOFtlT1sCGCrR8d0QnCj TfZ2XDoaN4PaavG0AEKavNVn XQgiXIR7L70sv6T2SMVhZDCoPT Q8aXL0dR4gvZpjidanjDOxqHjp noQcsGirEXucXIlsB009EZAu iDviMDBwfI9rSOWmuAUgsPkaJH 7xXLUtgedzZcTTH1WPQ0RfIPIJ ISMRA0nWTG43CR61bRIus7B3 gVE8Z4MlYEEsogqrfgqfkOM3GE AbMPGyiY42vLAdNLtyMg3ox1E4 l203SMCkBZShtO93Cq2mkHrj CLBloMODmY7ausfcp1vzmrccUu NuOJRlAYq9VOp4UUBxjGnnWnJy YCN6IaX5ZHB3oYJhxL6wwZhh avntxJ5nLyp+NNXcOOJpTNm4Dr wvdGQ+FGXjWCB2hAnfGBusYUDy kW8tIVIfJ4l7SuVaAfW4AQsp E7JqUZOffzeaFj71wB1sByRfZh W3OYvrW6FlpqK0ZMZjjFCbSAch BPU3N21tz4T3ENBaYIGeIMP3 zXL7dU4geQjuieiidXYtmXzwes AxfQlcIFzoSDtiB628VKKfmKng Spc7WHjsDWLlDI28NV83oLRe s9B3mDG9H2RcGXFmgtnrhlsgsN Q0DQDfUWMkjT50dRGrNUpbKc9i u8F2z067ROOeACPloK73Zh4l qVwpKEVeaKBRyA0xrkpxh3wutg peImWuHIMaUYv9FPm3DQIyxYlh XbLgDVP3BxG0NWS7cVIlmQ3o tQkukpxheY2kZhf+RmVtYWxlPC 88VH31eOHmo6J9nOK6W0ChCAJa ibqpynlnqZM4KRBvWBMfdW09 sZUcZFmaNj9mb1N2o947JXNpVC CftF39Li4luVuyKUZibJEVzO6e pyvqm7xsjqfkNyWwZXQmZQn0 SSo3AXHwqCoxVtCwEIN0JiA3KX U0pRNczW0pjDgvicbgqH8zZvv+ B7B8fUZ1mGYcgQpjjPO+PC90 mu83N1SfQmziKul5MAPkAHG1rX L3kG8xPARhUQioj9B2kRA7N5Jm kxFxym7cx8flYUKvERrlV46l nHUll3T2WVHwwEU6YJBgeGmtWu NiiE46Uua+TKVowHsvs5SlBxxy y2qwx7feeDg4PrVqOUYorkXz qPckCNF5m8BiNh24B16zAJdpEZ GlSTArAJHnTWTusLvsap1geR9p Ii8+ZNJixSN3tSN8pP7dGpNv SlC2TLdjA847WfInuYLlBieer1 gfy1fufKw8VcGhUOPshjUxiEew FUO0x2KtBj83Z6JvaAtog3Wj Pnr9gj74gMYwe2T3tWV4K7MtUS QnxjrwuDBfyYeaIC2zSCYbcsmt JMLbcM3tXELjF0n5AsVwReL6 GZhhX2BbruR6IYPegSNbDXZeoV XCiO3vmzhzv5qzkpeoAeJpXZVt DBd7UIk3QHDihAomQjAxAOC3 GwW7JMM2bIAefS6lfQaiupcnpO 9wOyc+YSx9s3aomYNzDY3cfQT4 YL70HM59kPAqx8Q3iSE0A0Sf FFEgmkvmmxgtzAP0NTQjAGSkwQ 88Cz8nhZbgCh3jKJEwVFF6VPWs hMVbA3CwiC6dJbBkKQEcHWBj P2BqmNAiWQhmR822ZEtnCeT3YQ WffyUjO8VeZPTqaTjaLlK3s7D0 Pu9USK27HC81IT86pWWzh1W0 jLN9Q9JsLRReajiyoywhhWQ6LH PfMIPhzE23Ls2zbYkdAp0uBPFe ZYZ7YYEirTTmB0TyjP9gRwCc CUAuDZGdD4BhzWDrCEwcS055NQ upWkZ7UTImkcPcA1HaFNZvrAlv JbU5b3K9Kj2JPm06NX07QB10 zTVak7O3yXA1A5RbZUThaprgjm yvtXH3EXNjARXsyZ47Sn3cqFfr Wx8yUPVsPVA6RLKveQDgU5Hs fF0pRhYsLRVwDERuS6MgsQUcFQ alM198NXjdBfO6JPLueqNdJ2Dy YKMvqMxpXcD6m5S8Tk0GQNrw xhr8X0YaLmlbdKA+DL43APNoCQ 36pBYuvJQwx9vqaKo0CsWtMLEl YXD4vTkfXIsbr5DwTFEzP90a bGFw (more content not included)... Normal [facility] Giardia, Direct, EIAon 01-21 G. lamblia Ag IA Ql (Stl) Negative Invalid Interpretation Code Negative [facility] Comment on above: Result Comment: Perf ormed at: [facility] [address] [id number] PhD Yolanda Jiang Performed By: #### 1 [id number], [id number] ####[facility] [address] [place] [address] Main OR Intraoperative Recor don 01-21-2022 Main OR Intraoperative Record IntraOp Document Type FT Summary Primary Physician: Jeferson COPE MD Finalized Date/Time: 01/21/22 11:55:08 Pt. Name: ADINA PERRY/Sex: 1940 Female Med Rec #: [id number] Physician: Jeferson COPE MD Financial #: [id number] Pt. Type: O Room/Bed: / Admit/Disch: 01/17/22 [...] time at 0934./JEANRN Colonoscopy start time at 0935./JEAN,RN 01/21/22 Chart opened to review and send charges [facility] CSFA Case Attendance FT Entry 1 Entry 2 Entry 3 Case Attendee Shelly Craig RN, Michelle Fuentes Role Performed Anesthesiologist Receiving Operator - Primary Staff - Other Personal Lines Insurance Agent Time In 01/17/22 09:27:00 01/17/22 09:27:00 01/17/22 09:27:00 Time Out 01/17/22 09:55:00 01/17/22 09:55:00 01/17/22 09:55:00 Procedure EGD AND COLONOSCOPY(.) EGD AND COLONOSCOPY(.) EGD AND COLONOSCOPY(.) Comments Dr. Pennington is supervising Last Modified By: Daniel MILLS, Riddhi Sanchez RN, Riddhi Sanchez RN, Riddhi Maravilla 01/17/22 09:55:43 01/17/22 09:55:43 01/17/22 09:55:43 Entry 4 Entry 5 Entry 6 Case Attendee Elana Sethi RACK LOADER, Jasmine COPE MD, Jeferson Alford Role Performed Staff - Other Scrub - Primary Surgeon - Primary Time In 01/17/22 09:27:00 01/17/22 09:27:00 01/17/22 09:27:00 Time Out 01/17/22 09:55:00 01/17/22 09:55:00 01/17/22 09:55:00 Procedure EGD AND COLONOSCOPY(.) EGD AND COLONOSCOPY(.) EGD AND COLONOSCOPY(.) Comments Last Modified By: Daniel MILLS, Riddhi Sanchez RN, Riddhi Burrell RN 01/17/22 [...] RN, Michelle Ray, Elana Sethi Schafer CST, Jasmine Alford, Jeferson COPE MD Time Out [...] and tissue Entry 1 Skin Integrity Intact, [place], Warm, and Outcomes Met? Yes Dry Last Modified By: Riddhi Sanchez RN 01/17/22 07:29:31 Post-Care Text: The patient is free from signs and symptoms of injury caused b (more content not included)... Normal [facility] O & P EXAM, ROUTINE, REFLEXo n 01-21-2022 Ova and parasites identified Concentration Nom (Stl) Comment Invalid Interpretation Code [facility] Comment on above: Result Comment: No o va, cysts, or parasites seen. One negative specimen does not rule out the possibility of a parasitic infection. Performed at: [address] [id number] PhD Yolanda Jiang Performed By: #### 1 [id number], [id number], [id number] ####[facility] [address] [place] [address] O & P Exam, Routineon 2021 Ova and parasites identified LM Nom (Unsp spec) Final report Invalid Interpretation Code [facility] Comment on above: Result Comment: Thes e results were obtained using wet preparation(s) and trichrome stained smear. This test does not include testing for Cryptosporidium parvum, Cyclospora, or Microsporidia. Performed at: [address] [id number] PhD Yolanda Jiang Performed By: #### 1 [id number], [id number], [id number], [id number], [id number], [id number] ####[facility] [address] [place] [address] Consenton 01-20-2022 Consent [id number]#1.00CD:127 Normal [facility] Discharge Instructionson Discharge Instructions [id number]#1.00CD:127 Normal [facility] IntraOperative Documentson 1 IntraOperative Documents [id number]#1.00CD:127 Normal [facility] Coding Summary.on 01-19-2022 Coding Summary. CD:[id number] Gh0bWw +PGhlYWQ+PC8BGJFmN30uxIAvt Y6XD1zTYV8WOQHHPENHLE5CQV5 bhJT1ODpfV5VjpyFy DifuhHJlZB05JCx9STJ4dYneUT oguX9ozPZtX3g8NfWfVE67lI72 IWjrZWQjAfU8GkGcuwamjSPc G0pxQrSflVBsJxk+PHRhYmxlIH cgTXExVVpxCNFwXeZitBmhFR3t Ev5iOSCsCNSyfXdgqAXtMaHb z9xpBBCbIHqjWC2ehJuoC5DoeI P5XYHzk1m3Uu65cBD+PHRkIHN0 sZtoBUljt696PoShx5bjWVM6 oTNpJShbPSZ7Q92tb4W0AMVoLT LzIIE1dFR0sX4nuYlfdebiI2Fl bHQnMeM9EJV0lPXdwK0ggXtl asalvR4yVwe+W16AWZ5FNKKQQJ 9QYjb1S8AfRcxpxGH+BK24PRCr GN76bMZbjOSbx8awcWt0MgUy YHNrWMS3rIxgUVwjl1MlERFaX2 4psLSzf3R4JKLzwDkpxUKqMsTg mOC6xJ0dXQdurebho0azyejh Cbhbb2bbki81yM36A40vAOnbFK JsMXM2SOVyQLGzjGhnrl3usC2g Ii8+BGfjm3vmt5wjrBc2EaBl PJBbyhRvuCpiYRN0b8LvXc11S6 PekXjvl6RkVaj4lk25aHCdp6G5 fAE2ALtqOQPawK7yHKscOgC9 LBMfGcLcxJ73dQIfLHzuWo7cmY ithPjpBR5yAFPegoepRJNdzB9b EGQisJYecNsjBI8sCUMpygse t798MoNtQIO4WXCvrTKbK4IxiR 0eYhOfONYzNRMtF3BihJLhQPsq G194QRyjItR1EETzdgSyV3Qt PJCrmYeyJjU6z0L8Hg4Sd7Eend pxRVA8GHlfOXEsTkA5JcDoUhR7 C4FjZcf9XZNqzRplWQ2lK9Sh ETCgqywjwpombEB5OUGcWMSmcP 37mOZnTRrwLn7iw1L3y480ILLq YRFbkL95Vz7ioWpfTQPxcSVU fQ5yyvnik8mlyiazEcXtRZPmWB a0IVl1IGXmrLjuQlRpBVP6AiS6 XOL2oDJjdB4npZzxthgvqT2d Oyc+R04ahO4kTKT2YGA9gbpiKO QfwpMpLH27BN91G8DaUjprkJYn bGU+CLGymaRwzWppCW2rFpIr n3gvm7QkUXlaI8YuHUQjKRqiIp n2XJDoVOW9zAI7zX4zKFScVUwb d6T4eZV8H8ObnbXzod6kq5nv PGKvKQyhK19itVQqn3H8SRIjvV S8YMBypCegFmBujY95Ntk+PGNv mMuem7HkXuwla2ocb7mykSu8 BzFoMYDewfSrcRknBZV1m9AiDo 04C09lZHxxDAOoMGHdKINbDYKf hFfnsa1zbA6wVq0+PGNvbCB3 uAB7mN2yRKNySwR1EPcyL212Xt PwiUGjKkedm5yfj0nfkUv8PySt MYRzfjJseZwsMGF7k3BkLh23 O55qZVkhHKEiREQiWZKlPUEliQ ngkw3miE0cQc7+AI8za9edxa09 cM17jGR+WUKwVHT0jIznWLun KMBocZ5cURmsMjV3KEElQuQzpC 63nZFqCYdiTj7weJtidZjyVZ6y YDFmkwnlb009TuCrq8paUNPr qJYsJIbqLRO7T89sw2Z1GXCeCI XeZBF8pAJ8vO2uhOloyvfmkGRx jTzervFfvAyzIXicBMrgE657 IHRvcDsnPlBhdGllbnQgTmFtZT v3W2FjZyj4HHMcwTocFN1tpZOn TYmwYk9qnDzkkFroDG7oRHCp lchrl251FqVhl6apAGUhyPGyOE mwCJS2L07zs9P6ZLSkDLKbIHF3 lUK0mI4vxMdqvqmhfUShpBjy zgZirLjgDDevAYbbM771EAUtjI spQkHlytDdGCRgrJV3UU98PT81 aKJbe5X8dCK1A9OyNAUzssxq eqsviUB6ZXTwIWUbzY61Wl0crA qtRr3cJJYiEVX5REXqgAMcX3Oc wM0rTzCcYNEnJSNxB0ApyYVp IBzdV314SRotYtT8FSWjrgVkG4 BzUDPntDkkCdG2i9J8Ks2HK1E2 FS68RM73kEDmf3R8gDU5B3Zm RAGjqbiojoqniLM8CIHvJAUuzG 41Ez0xfHhnEz2vSZNiTWO2VFPu yOQrW5VikN6wXpJrQRXaVIVi E3FbhWBbEGitV373RUhjGlV4RA DwwaIcY9HvUUXpiZdyApO5h6B1 Fv1RSRy2YS98LE95oDAtr8Z9 kER0B3RsRZYcetqwysholIM3EY PvGPQvtS55Zl8iuGgbXh1pUSFh TLO9ULCejGEuZ9NkwW9aZuZz TVCyTLFdU9ToqMHwBObtJ205ZT ufIrZ2VHZbjyRbK1WvOQFnkPbn IzC6r3T8Qb2YCSTxKB66ZQR9 nQR4TI11JZ25O9JzTyvktULxaQ U+PHRhYmxlIHdpZHRoPScxMDAl QlFvpLhlCK7iBu5cJVSlOQDt kMluiMQvJoNir3auVXTwTPnhNF 2bzAcvO2VkcEX2RCToq1q1Rj83 Y74kS1WbpCV+DOQnoVU4jQJ7 zB5oRkLjHyI1OTcaH363NmFxzX UgKsxak6voj7psyZw6PtD3YDNx daScqZwhRSS3x0BkJe75U72m IHdpZHRoPSIxNSUiIHZhbGlnbj 1xwQ9oAj9+IOCxzRT5dDC4cG9z BkDfMbF9VIxiQ557KzRigRSq Kitmp1ljg7szzJx9PjLmWUPliq EoiWojDXY8x7KlTv63E7QoeMiy v8KeXba4em94jHYkq1W4rKI4 S7LpLWUgsxgjfKWflDnmGS8wFB XnzkvrBRBrdU2eWVEkJ1w3ZaEn FzK4ULmcH9VxypB6VYXktQJt ZMoxYMA5M85jt0M6HHOrETMlQZ T7mSI8zK4uoBwjzglcsVAcpHle lfRyiEqsSIaeBGbaY024VOIa pGhxBTAhjZ7vSWUuwLFvjGfpSJ 9vMUWmgszzSrPEG5VPE3RtYHQR URJHT6rMDI34DQ52bNRln0M1 gVC0Q1UhVFCpfhbzdchvwDG0SL JjJUWtrN55fGJsMQjjZi2zz4H0 u530LKInRWDpbU12Dh1gaDvp LHGvtQTLgZ8vrasxd9zjesusRs LcTVOmGHb0IUy9JTMogJypJeSb JGI0RgN0DXG6iVXenI6maRch cewsfD6qWim+HWXoDKRxJYs9Mp wvdGQ+KAWfCUS4yCruXXmmCDOm dU5fJCFsV8h0RlTcGpE4KMgj R5PgKSPfcdcdBc78pK6pFsRzTv E6EWkgT1YfmpW9AFVydQLvISno DLD0O55ha9X2YTKqDDPyXGZ2 gVU7uN6beLpfdbjixTSnbAxste SadNgcEOlyVJwrG519UKSweUml Mdr2FSswJCWrHN14IF23vBWz q9N2lNH1U6ZeRETmoiavuoiqiJ X1LSYmUSUyzT48sKUoOKzrBc3z v5K1r581YJVtZTFqzX98Iw3h oShtOTElcTWWlF5ovmarb7elrt hvHeHpDFIuLRa2RHf3NXWpuJdt PcSjISL8QwO6DCA7pVQsfN6n jPykgvnyiB1xVoj+RmVtYWxlPC 26BE79oFKhm2M3sYP4K6CzVHVs hxdnwbbwaAF1JZHnGLInlX00 mDIdFOpoYe8ma1E7f670IDGtDZ IbuM73Jo6ldZerXHCpjEDDiY4x jfkze4ixvbhuHwTtIBSoJIj3 BVa1EIUqkGyyEnAnGRT5WcX0MF N5oGLkmG1ixAlbnqqqvZ6yVvz+ OPJuOXOrm5Fyj2DkAL00DC43 I2YeOvfpvLFbbQD+PHRhYmxlIH plXVJsQUoqIPZmEtCxgWfnXG7p Hk3oFSMcDLSxgCuikGKcJdNs x6wePDNyHWidSO0elTpzE5JidW V0JNOhn0x2Qo01E83yE5FoqHT+ KPLdeNX9wYS9wY6mMsUaPlR8 SFrvF515TcTjgPEbHzeif4eyw9 qehFf8RmXuYZJkzfOklBuyABA3 h0FcHh06Y35rJNimOTBcAOHd XSKeFKJxfVtwgf5ziI7oVf7+PG MabTV3tAA4tW8uVrZeCfY4XDvf N431ShFmrHWbLwmcX09rJ3Qb dXA+MGVnLly7XILkxMyuQD3ymR XmWSnaBq6qPFL5JjMiEiZeLVhh X7CpZRCmcfqjwekcbYN0ONXd CVYnlI37Xf5vhSxfOs8xCWWnXN C1XWQirPNqH7BkcC3cWvZgHPWp NWLfE5JnuHQyKBvyH711FWjm NxH6GEAwuqMjC4DtGMQcdKvgNf U2q4X6Zk6AqAygkCVzRT1aPuCa ULa0J6GxWkm3OFMjuFuuWJ8q jPZcKFabQt7vqYatdUmyWS6eAT Hrthpqv737DaDmn5baXFOlnRTd HHrzRCX0C23vk7J7KOKqLDGw OKJ4qED8kQ3blSlqgytnpXBqjG qamkUynKkcXBatRXqeV196ETDu gIknNcUUHzg7T9VgUmd6NPDv bVnkDC5xxTCgFCnbFq3sgYyywX sjTB7nGYSdphres939QeVoc8bo SCTlzYQmGPhrDLU9V84ua4R9 NWAqICWaRBR6sCI6oJ6vlXayrf ogbGVmdDsgdmVydGljYWwtYWxp Y748YQXmnBtmDa0HUnc0A6Lt Bey1HMLqbLpfYD5ivDFiOLqhMi 3stYnitRymOV4cOMRvkvpwu262 TwEsq4qgFPNarGFcAZsiLLL0 K62oe2R9UGBgOSMbVWR8oCP0cT 1hbGlnbjogbGVmdDsgdmVydGlj FMljXInlP115RIHnrJqzKeXe eWVyOjwvdGQ+GB00ah86W0KnXp bwCgd3FWXgDEE5mXW4bZ0xZBUb XPesl2V0nRC2J8QbkvSesr6s b2xs (more content not included)... Normal [facility] Consent for Treatmenton 01-04 Consent for Treatment [id number]#1.00CD:127 Normal [facility] Endoscopic Procedure Report - Otheron 01-17-2022 Endoscopic [...] snare 3. Normal duodenum Images Procedure images: Rec1_hd_video_T0 [id number].jpg Rec1_hd_video_T0 8_32_[id number].jpg Rec1_hd_video_14T0 [id number].jpg Rec1_hd_video_14T0 8_33_[id number].jpg Rec1_hd_video_14T0 8_33_[id number].jpg Rec1_hd_video_T0 8_33_35_407.jpg Rec1_hd_video_14T0 8_34_[id number].jpg . Post-Procedure Complications: none. Estimated blood loss: none. Specimens: sent to pathology. Devices/ implants: none left in place. Impression and Plan Sessile polyp, 7 mm, in the gastric body, greater curvature, removed completely with cold snare Recommendations: Follow-up in GI clinic in 2 weeks [facility] Comment on above: Result Comment: Elec tronically Signed By: WILLIAN ERIC, Jeferson\.br\Date and Time Signed: 01/17/22 09:56 EDT Other Comment: Quyen vieira Attachment - attachment storage system not supported [id number] Can be viewed in source systemMissing Attachment - attachment storage system not supported [id number] Can be viewed in source systemMissing Attachment - attachment storage system not supported [id number] Can be viewed in source systemMissing Attachment - attachment storage system not supported [id number] Can be viewed in source systemMissing Attachment - attachment storage system not supported [id number] Can be viewed in source systemMissing Attachment - attachment storage system not supported [id number] Can be viewed in source systemMissing Attachment - attachment storage system not supported [id number] Can be viewed in source system Endoscopic [...] 2. GI clinic follow-up in 2 weeks [facility] Comment on above: Result Comment: in [...] internal hemorrhoids Images Procedure images: [id number]_[id number]__[id number].jpg [id number]_video_[id number].jpg [id number]_[id number].jpg . Post-Procedure Complications: none. Estimated blood [...] Return to activities:: After 24 hours. Normal [facility] Comment on above: Result Comment: Elec tronically Signed By: WILLIAN ERIC, Jeferson\.br\Date and Time Signed: 01/17/22 09:55 EDT Other Comment: Quyen vieira Attachment - attachment storage system not supported [id number] Can be viewed in source systemMissing Attachment - attachment storage system not supported [id number] Can be viewed in source systemMissing Attachment - attachment storage system not supported [id number] Can be viewed in source system Inpatient Patient Summaryon 01-17-2022 Inpatient Patient Summary [address] [address] [facility] Clinical Discharge Instructions PERSON INFORMATION Name: ADINA PERRY PHYSICIANS Admitting Physician: Jeferson COPE MD Attending Physician: Jeferson COPE MD PCP: ADRIANA CRUZ DO Discharge Diagnosis: Anemia Comment: PATIENT EDUCATION INFORMATION Instructions: Upper Endoscopy, Adult, Care After; Colonoscopy, Care After Surgery Domoam (CUSTOM); Diverticulosis MAGR (CUSTOM) Medication Leaflets: Follow up: With: Address: When: Jeferson COPE [address] [place] [address]. [address] [place], [place] [phone] Business (1) Comments: office will call for follow up Type Location Start Finish [address] 02/03/2022 10:20 AM 02/03/2022 10:40 AM [...] cholecalciferol (Vitamin D3) sertraline spironolactone Comment: Normal [facility] Main OR PACU I Recordon 01-04 Main OR PACU I Record PACU Phase I Docum ent Type FT Summary Primary Physician: Jeferson COPE MD Finalized Date/Time: 01/17/22 10:57:57 Pt. Name: ADINA PERRY Umberto/Sex: 1940 Female Med Rec #: [id number] Physician: Jeferson COPE MD Financial #: [id number] Pt. Type: O Room/Bed: / Admit/Disch: 01/17/22 [...] By: Jennifer Becerra RN 01/17/22 10:57 Normal [facility] Main OR Preoperative Recordo n 01-17-2022 Main OR Preoperative Record Holding Area Document Type FT Summary Primary Physician: Jeferson COPE MD Finalized Date/Time: 01/17/22 07:57:32 Pt. Name: ADINA PERRY /Sex: 1940 Female Med Rec #: [id number] Physician: Jeferson COPE MD Financial #: [id number] Pt. Type: O Room/Bed: / Admit/Disch: 01/17/22 [...] By: Regino Beckett RN 01/17/22 07:57 Normal [facility] Monitor Recordon 01-17-2022 Monitor Record [id number]:127 Normal [facility] Monitor Record [id number]:127 Normal [facility] Outpatient Surgery Discharge Instructionon 01-17-2022 Outpatient Surgery Discharge Instruction [place] [id number] Patient Discharge Instructions PERSON INFORMATION Name: ADINA PERRY Date of : 1940 Current Date: 01/17/2022 10:08:03 PHYSICIANS Admitting Physician: WILLIAN ERIC Govea Discharge Diagnosis: Anemia ADINA PERRY [...] Follow up: With: Address: When: Jeferson COPE [address]ail[address]. [address] [place] [phone] Business (1) Comments: office will call for follow up Type Location Start Finish [facility] [address] [facility] [place] 02/03/2022 10:20 AM 02/03/2022 10:40 AM Confirmed [facility] [place] You may receive a survey from [employer] asking you to rate your care experience. Your feedback is important and will help us understand what we do well and how we can improve the quality of care we provide to you, your loved ones and our community. It?s an honor to serve you. Thank you for choosing [facility] HERE ARE THE MEDICATION CHANGES THAT [...] activities are safe for you. ? Take ifng-saf-nbyoupq and prescription medicines only as told by [...] 09/21/2012 Document Revised: 09/14/2018 Document Reviewed: 08/23/2018 [employer] Patient Education ? 2020 [employer] Colonoscopy Care After Surgery Please read the ins (more content not included)... Normal [facility] Patient Education - Texton 1 Patient Education [...] unsweetened, w/added ascorbic acid 1 cup 0.5 [place] 1 cup 0.7 Vegetables Cooked Green beans 1 cup 4.0 Carrots 1/2 cup sliced 2.3 Peas 1 cup 8.8 Potato (baked, with skin) 1 medium potato 3.8 Raw Parks (with peel) 1 cucumber 1.5 Lettuce 1 [...] IMMEDIATE MEDIC (more content not included)... Normal [facility] Progress Note-Physicianon Progress Note-Physician Patient: ADINA PERRY [...] PACU when criteria met. Condition good. Normal [facility] Comment on above: Result Comment: Elec tronically [...] list: All Problems Anemia / SNOMED CT 709455805 / Confirmed Watery diarrhea / SNOMED CT 233595365 / Confirmed History of colon polyps / SNOMED CT 0308723722 / Confirmed Fecal incontinence / SNOMED CT 416493057 / Confirmed Nausea and vomiting / SNOMED CT 29210610 / Confirmed RLQ abdominal pain / SNOMED CT 292644972 / Confirmed Weight loss / SNOMED CT 883200619 / Confirmed, Active Problems (7) Anemia Fecal incontinence History of colon polyps Nausea and vomiting RLQ abdominal pain Watery diarrhea Weight loss Histories Past Medical History: No active or resolved past medical history items have been selected or recorded. Family History: Heart disease Father Primary malignant neoplasm of lung Sister Diabetes mellitus type 2 Father Brother Procedure history: EGD - Esophagogastroduodenoscopy ([id number]) on 07/06/2020 at 80 Years. Comments: 01/09/2022 16:03 EDT - Rajwinder Ho Dr Colonoscopy ([id number]). Comments: 01/09/2022 16:02 EDT - Rajwinder Ho [...] review: No qualifying data available . Plan [place] [employer] Anesthesiologists (ASA) physical status classification: Class II. Anesthetic Preoperative Plan Anesthesia: Monitored anesthesia care and general anesthesia possible. Anesthetic plan, risks, benefits, and alternatives discussed with the patient and/or family. Pt. and/or family present and agree to proceed as planned.. Risks discussed including heart, lung, nerve damage. Risks of bleeding, dental injury, hospitalization, and general injury discussed. . Normal [facility] Comment on above: Result Comment: Elec tronically Signed By: Eliecer Pennington DO\Date and Time Signed: 01/17/22 08:36 EDT Coding Summary.on 01-16-2022 Coding Summary. CD:[id number] Gh0bWw +PGhlYWQ+AT2PSOWgC32qmRQah H4SY7pJCL9KVDLSNTUJPU5GKO9 htTN2BMdrW0VmorOu KmcgxADeVI87RLs0XZH3mXttSR kssW1tqKUrL1q1LwRhDY15nH06 OEzjBFLxRuX8TeIqnyatpPRw Z0kmYhWroTHrUut+PHRhYmxlIH foQNGcGBlwTCJxCmYqiJbfGJ9a Bs9nOLKaZDKetWffsBXrNaAg w8xpNOZlFVpdPE5uiRctY1FtnE B7WOKui0q8Ub51tTB+PHRkIHN0 sMwqQOjha497YbWgv0xdBIQ1 eZVbEKjnHUR7K34cy2V7RULrHR GgKGS2lYJ1cE2ynYsigiafK7Pb hPMgYiE0VBG3kWFswG3jeXrt qcyaeK8nCce+A98VXG3TGJSAHF 7IUhh3D6RrFvsjhZB+TB75JBVj UZ91xDCcjRAtt1uviXb6KaOu SKLjLAS4rYhfUDide8DtWSOmR2 8mjSBjj0O7DWIlkQkmxFXdFkNc dUQ1zP2dOAsrevnmx1ouplrz Ellvo1szbk17lY10J83cIQiqBD MqQLJ7LTWpUDHijLmday5odU2p Ii8+YAnto1nwy9hsoVl0KcLm DBAdwiVqfVcmWLD2i3ZkBc02S8 BliRcgp2UyMtq8is98jSZek5G2 gAU9GAkxGOYzyH3uUSkfYnC2 ABKbUzPwwH41xVVeNVmgQe9bpN upeMwyQQ6cNELxaxycLDKebY1j BOYvjMOgnAqmYL6gYKQwaynt m906RtBaPAC7FAFupKUeW9DqcI 1iRtLhXPIjSAEsJ6JlwUEzOKru T291EPauLgS2QAZbsnMmY7Df IXPmjEeyEjT4v2J0Uo1Ah2Ejgg dqYCS9UTooJCThOgXpHlHyNlQ2 C4SrOig6LPAjpAhcBL1cH6Oa OKFzsfnwrksytHT1JBRlNOXepV 47aUYsQYjhGl5ij7C8g255WDTh QZPjlA54Co2hbUfnBYKaqIBX mM6ouxdwd8rzqdvmDlWtHJXiXB t5JHk6PGThwGmbMnGlZLR6WvF7 UMT6fCRelB4duMikufgwdK3s Oyc+N41hgS9xROZ4FBC9mgrsRK VydwGyMR17SV28A8DlNoqooDXq bGU+VVEpdzDwgCthMK6bUpSv m6knu0MgOUmxL9TtVQUwPQhwLi h0LINnBKP5gFQ5eW6xDHHdBXya t6B3yWV8D2AccfKtst0gb8vx IJNpTRuvI73woTUzd1O4JHXduM A8TMLawZenAiGqsW77Emh+PGNv wVggf8HdUmfku0lgh9rxnOm3 RrQbTNOzlkJnkCpmYPA7q6KlNx 03H51dNVifZRPqQLPeIIOkECPs xAhwlt1jfJ3jWm9+PGNvbCB3 hNY1pQ6vMCBnPcP8JZsiT711Uu TyrOLpOrkwr6iho0koqNt2IeOw VJAlxfJltTjaBUJ1l3AzWq54 T91iYFwmYLOzYEUnBSMjFCOdzG ytap7eiX6nPe3+SG6eo5ibvv38 rU14uOE+OMTnIGF6rAgaLVqr SRSrfT3gJIafHsE9TOMdHyJccX 27wXLeWSoyNy9psZbevIwhDK7g TNOptobsy043CvTgz4vtILBm cJHbOEjkMYT5F55kd0B9PGJjFY ZmKKG1oFN4nM4fwFxfxjhkvNWo mWuromIohZodLGlpLYhvN966 IHRvcDsnPlBhdGllbnQgTmFtZT u4K0TfDsz1UUPhxMwaDL3bfPNn WPrqMe7nrYoqxWmpGY5xLECe mpwko314EfMii0bxVIPfhZVlPC iyBQU9B00xy5E6JFBdTGNlJBP8 nYB8gJ1lgNhaowlolILpaFig buSyiLezMSndBIbxG679AODphB nyMeMezcHrJTAgwKH8NL61WK06 oDGbe6T1lHD4R1WhAJCevtje gmossAN9ZKGiCXYalF88Be0bsX iqMi4hQZFbVHB5NTSvkUCgJ1Ur kP9sCgNiONEkDZDmQ1YjzIWy WYhnQ302EZfoEgO6FLOvegNaE0 PyTLLveIwnOlV1y6M6Et8AY2V9 AM00HU40bTDzi1N9tVH0D0Lb IOUznzqjodeevBX6LFEaUCOlwC 58Bp3uaMtdIg4nNAQdHQX6RXQx jAIoF5EflC1hWpFaUUDtUHKg L4VfkEXlDXkgW311BKttPoS7HE LyzzZhX1VrUFEycVilBkT5y9W2 Po4OMMq1OB23UC23eQApw5I5 mYC9B5VyPYUxyenjkasvrFE8YX SaUWXajD04Li4sjMdpSq8vWDKf JZP1TWStyUAwN4ItiU4cQcRl DBPiUHRlF0UffMMtSIwdF672XW tiWyK3JYNwnyZqS4OoFMCiaZik RjH1i9C9Ad4SHMFlPE01RHI0 eFN3ME50FT26C7HjMsqkpSEztF U+PHRhYmxlIHdpZHRoPScxMDAl OyNcnSnzJN3uXa4gUQFbTQHs mDdyaTDdAkLwp8lkMOOnZTekAN 1vdJivF3SwiBL7EQMbf3i9Fm58 E70uZ0TxoJW+NARmgBR4yNW8 eD1kNhCoTbS9SAfkW251ObAwcP HuCbvjf6tpy0pyyPa7UcM9CVLg seFcpFshOJB7v7ZsOy51L68a IHdpZHRoPSIxNSUiIHZhbGlnbj 1evG9gDt4+OALqmLK2rZU4zS2y FtYaUeF5VQfjO636KbAqjNVe Ufhid2ryg2xeqZp2OrIxYHLgck UiqLvoIZZ9w3VjLe63F4FsaXal k8ZyZju9pj38jQGlr8W3rNR9 M5XxHVCvmvbudLAqrUisOM6pTR HzqbkwUUOmjS4lUNRsW6i6GjKp CaQ3OXzhX5KohsC2UUPklCMj XKhgWCB7J18ur9J4VKNhXKGxWZ N8qVB2dD0ccVcrfxxijCNktYma caQviYbjIQxuSGrqA841QHHr bJupYUQspE3aFEWmzFKpxVjjYM 1jSOLpbsabLeOCH5MSP0CwFHFV YSUCY2uJJF85IP35uCMlw4S2 dQD7J1RoUKUgqgjnpnkbgCA9QE OpMZPgoX90qZPiXChbEn0jd0S3 d033DMGwKPAxfY89Tn2tnSmv IOTtnFLOfA9oqhntf8yjnbbpGd WfLJCtDQy4PXa3KHCgjQaoJcRg ADF7QdF9RBM4oJYslF7wnOuo xpeifT0zPmo+IMWrDICzYSg5Zw wvdGQ+WDCuTGE7yCtoFAqcBSQu hE8hWNOkL9x0AwYsQwP1MNlw T0OrUCZygwghQi09uN4jErXkDa Y6GDlgJ5QiufZ4BXZqrOGxCMcf AHQ4J40ce0K6DNDxDERaWHE4 dGO2lD8epQumwazmhEFhjEkvzi EghBjkNJlvSOydC468AMQeoZhr Wnk2LHdwCLXjYH84EY23sWJz j0O0dNS1B0XcKCLajqclmvqbwT R3TTCeCEKpyD20hRPzKVnaWp8z y2K9w966YYWmIVWdlS34Dh8u bXozWHOzzBLOeY6xfcurn0czut xbCjMwMTEmALg0BIv3JWVgfUbh MtZvIYT2YeC9KZL6fQNruJ8g jHakslgqjH9sWdr+RmVtYWxlPC 56SQ14mHFna7L7gBS5Z6ZwOMYp loxdkhlpsZZ2HKOdKYLqiY26 nNWuVGqhXu5sh4H6x392BLGpIY JbpI20Ip0azDyjUZUkxKFXvB1a mmuwe3jscmijFuVoAALaZDa1 LLc7SVDukTqhNgNdUHQ5XrC8RF V5eGSaoV9fbVfaytbdzZ2kTxm+ L6U3wNW8qUWtsQkxkYA+PC90 la48E2PnOqzrMkz9RDQwHVO3tO N8bP4iORLoFEbdm0B4vFL8B9Br akEcmh0qm1qsDCWxNTxpD87a hUTsh0V2MOWynPF5ODXjoPmbXj EtrB28Nkx+LKNgtSwdq1MpCvxk j0jaq3mnnWu8ZpCsVDZtbwYy pTxhAZW2a0HaQp34M94cIRekXR SiMOSlQHLqVOAuoIqktg4jlO9l Ii8+LBOmtOB0aXI2tG4nDyYa ZkI9DNmaW190LnEupWXlMgpsh2 jzv1tteSd0TdVfHIXbqrKjkOar KSL0v6ApVq20K3MqaPaag2Qt Xlt3nl02nYUns4A5bFR2E9MrPO CxmwbxjVCggZrrUS3jTZKvmfhz CQLxfG3iXNUkQ9i2JbLkSvZ9 YQvrW8SgfrE8SFXhmUCqNVBecF KCdX7tviotk6sqfhmbOkBkJYIt QCz8EAb3JAVrkRutFaDlHFG4 XeF7EFU0jJAmhX8kmSsnbvqvvM 9wOyc+MEa9u9ryjOZrMW4xbWS2 KT11JB24pFIuf2T0mXE5H5He RYRsrtorcrbafHT8EZPfWEDhyJ 44Np2jyWpdVs6kADBrFQU6PHNi eUMuR5MhbE5bNyPkPVCeRIWa G4AlrRPoKGqbJ683VPkpTzF5KF UtmiMmP9QyJMKbcEqpRiF1p1S6 Ms5IEI42FQ93AV91iRZth7L3 jXE2S5BtMCYfqmarstdvmSY1VV RgFSPzzJ77Xp1ejTqlEs6iPHOs ULC6OXKgfZDrF3LcsK4dSpId RNXyORIyH1GbiGNhVMihL572LY ktOrC6SHNpxkQqG3PzEHBynWoc OqV3k3E6Oj7WQc66IW95SW80 nZQrz6L2fGU5H1BiCZEogivlnm fxpUI0FBZkMPIizJ35An3qnZzn Kc1pUNDvEUA8QWIknTSlJ1Ri tR2gJwHoVNAeQYLaS8RckPGvYE uqQ941KOtsUqX0DVPxhuNeT7Oj WJNntCaqQoA0g5L3Ti5MQFar hqx4R7TnKyknpUY+PX16NSUhWB 98qJSqjEOis1ctyDv9YzDhLUIt YKB1yTgmKGqay9ErPNKuF38i bGFw (more content not included)... Normal [facility] C. diff by PCRon 01-14-2022 Clostridium difficile by PCR see comment Invalid Interpretation Code [facility] Comment on above: Result Comment: Unab le [...] its clinical significance. Performed By: #### 1 [id number], 642125186, 38115208, 08489591, 80509976, 88382012 ####[facility] [address] [place] [address] Consent for Procedure/Surger yon 01-14-2022 Consent for Procedure/Surgery [id number]:127 Normal [facility] Enteric Panel by PCRon 01-14 C. coli+jejuni+upsaliens is DNA FERN+non-probe Ql (Stl) Not detected Normal [facility] Comment on above: Result Comment: Test ing was performed utilizing reverse data acquisition technician (RT), polymerase chain reaction (PCR), and array [...] nulcleic acid test. Performed By: #### 1 [id number], 026650099, 13897860, 75566582, 80580447, 49137989 ####[facility] [address] [place] [address] E. coli stx1+stx2 genes FERN+non-probe Ql (Stl) Negative Normal [facility] Comment on above: Performed By: #### 1 [id number], 433074752, 16229586, 84530083, 48736088, 88931560 ####[facility] [address] [place] [address] Enteric Panel by PCR Negative Normal [facility] Enteric Panel Intrl QC Pass Normal [facility] Comment on above: Result Comment: Test ing was performed utilizing reverse data acquisition technician (RT), polymerase chain reaction (PCR), and array [...] 1 and 2. Performed By: #### 1 [id number], 903357789, 09120940, 65264738, 59093218, 53298901 ####[facility] [address] [place] [address] Norovirus genogroup I+II RNA FERN+non-probe Ql (Stl) Not detected Normal [facility] Comment on above: Performed By: #### 1 [id number], 279867622, 38931510, 44090771, 97006864, 85116325 ####[place] [address] [place] [address] Rotavirus A RNA FERN+non-probe Ql (Stl) Not detected Normal [facility] Comment on above: Performed By: #### 1 [id number], 632945971, 31912476, 14949753, 43488283, 34087777 ####[place] [address] [place] [id number] S. enterica+bongori DNA FERN+non-probe Ql (Stl) Not detected Normal [facility] Comment on above: Result Comment: This test result should be correlated with clinical presentations and medical history by a healthcare provider to determine its clinical significance. Performed By: #### 1 104692089, 529734127, 47652422, 60518604, 91801939, 34381917 ####[place] [address] [place] [address] Shigella species+EIEC invasion plasmid antigen H ipaH gene FERN+non-probe Ql (Stl) Not detected Normal [facility] Comment on above: Performed By: #### 1 005984865, 939972394, 63116600, 65733704, 65507607, 60542790 ####[facility] [address] [place] [address] V. cholerae+parahaemolyt icus+vulnificus DNA FERN+non-probe Ql (Stl) Not detected Normal [facility] Comment on above: Performed By: #### 1 243176873, 994508156, 62169956, 57995380, 80298413, 05223673 ####[facility] [address] [place] [address] Y. enterocolitica DNA FERN+non-probe Ql (Stl) Not detected Normal [facility] Comment on above: Performed By: #### 1 322768485, 426950346, 39843477, 62020066, 56004756, 20129885 ####[facility] [address] [place] [address] Fecal WBC Lactoferrinon 01-04 Fecal WBC Lactoferrin Negative Normal Negative [facility] Comment on above: Result Comment: The semi-quantitative detection of elevated levels of fecal lactoferrin is a marker for fecal leukocytes and an indication of intestinal inflammation. Performed By: #### 1 713293030, 176551259, 01066337, 26976691, 10463893, 01032603 #### [facility] [address] [place] [address] Ambulatory Visit Summaryon 1 Ambulatory Visit Summary [...] diarrhea Invalid Interpretation Code RLQ abdominal pain [facility] Auto Diffon 01-10-2022 Basophils/100 WBC (Bld) 1.0 % Normal 0.0-2.0 [facility] Comment on above: Order Comment: Order Added by Discern Expert. Performed By: #### 2 963088, 8515023, 46909282, 6234585 ####[facility] [address] [place] [address] Basophils/Leukocytes Auto (Bld) [Pure # fraction] 0.1 E9/L Normal 0.0-0.2 [facility] Comment on above: Order Comment: Order Added by Discern Expert. Performed By: #### 2 473298, 5261848, 64286152, 3204110 ####[facility] [address] [place] [address] Eosinophils/100 WBC (Bld) 1.0 % Normal 0.0-8.0 [facility] Comment on above: Order Comment: Order Added by Discern Expert. Performed By: #### 2 799907, 3338894, 81367966, 8379798 ####[facility] [address] [place] [address] Eosinophils/Leukocyte s Auto (Bld) [Pure # fraction] 0.1 E9/L Normal 0.0-0.5 [facility] Comment on above: Order Comment: Order Added by Discern Expert. Performed By: #### 2 850230, 4750782, 92875982, 2786030 ####[address] [address] Lymphocytes/100 WBC (Bld) 20.0 % Normal 14.0-50.0 [facility] Comment on above: Order Comment: Order Added by Discern Expert. Performed By: #### 2 654110, 2144375, 30988610, 3472953 ####[address] [address] Lymphocytes/Leukocyte s Auto (Bld) [Pure # fraction] 2.0 E9/L Normal 1.0-4.0 [facility] Comment on above: Order Comment: Order Added by Ramírez Expert. Performed By: #### 2 776740, 9080959, 25520344, 3760318 ####[address] [address] Monocytes/100 WBC (Bld) 8.7 % Normal 4.0-14.0 [facility] Comment on above: Order Comment: Order Added by Ramírez Expert. Performed By: #### 2 181021, 8928097, 01395441, 1645716 ####[address] [address] Monocytes/Leukocytes Auto (Bld) [Pure # fraction] 0.9 E9/L Normal 0.2-1.0 [facility] Comment on above: Order Comment: Order Added by Ramírez Expert. Performed By: #### 2 407923, 7892222, 04644145, 5494777 ####[address] [address] Neutrophils/100 WBC (Bld) 69.3 % Normal 36.0-75.0 [facility] Comment on above: Order Comment: Order Added by Ramírez Expert. Performed By: #### 2 778682, 7702746, 59963141, 8745887 ####[address] [address] Neutrophils/Leukocyte s Auto (Bld) [Pure # fraction] 7.0 E9/L Normal 2.0-7.5 [facility] Comment on above: Order Comment: Order Added by Discern Expert. Performed By: #### 2 450212, 6099631, 60120688, 3959006 ####[address] [address] CBC w/ Auto Diffon Erythrocyte distribution width (RBC) [Ratio] 14.7 % High 10.9-14.2 [facility] Comment on above: Performed By: #### 2 101032, 3926962, 19920595, 2424056 ####[address] [address] Hematocrit (Bld) [Volume fraction] 37.1 % Normal 34.0-46.0 [facility] Comment on above: Performed By: #### 2 439290, 1510477, 51829626, 8103709 ####[address] [address] Hemoglobin (Bld) [Mass/Vol] 12.2 g/dL Normal 12.0-16.0 [facility] Comment on above: Performed By: #### 2 447958, 5736605, 98410099, 5288886 ####[address] [address] MCH (RBC) [Entitic mass] 30.0 pg Normal 27.0-34.0 [facility] Comment on above: Performed By: #### 2 843943, 8692591, 12842094, 3433788 ####[address] [address] MCHC (RBC) [Mass/Vol] 33.0 g/dL Normal 31.4-36.0 [facility] Comment on above: Performed By: #### 2 233613, 9773473, 72523164, 1278456 ####[address] [address] MCV (RBC) [Entitic vol] 90.8 fL Normal 80.0-100.0 [facility] Comment on above: Performed By: #### 2 831230, 5688662, 18057801, 2899477 ####[address] [address] Platelet mean volume (Bld) [Entitic vol] 7.9 fL Normal 6.4-10.8 [facility] Comment on above: Performed By: #### 2 238761, 3143328, 86465291, 4670927 ####[address] [address] Platelets (Bld) [#/Vol] 281.0 E9/L Normal 150.0-500. 0 [facility] Comment on above: Performed By: #### 2 383148, 5027198, 45683610, 7110150 ####[address] [address] RBC (Bld) [#/Vol] 4.1 E12/L Low 4.3-5.9 [facility] Comment on above: Performed By: #### 2 724909, 2242265, 43602915, 3523171 ####[address] [address] WBC corrected for nucl RBC Auto (Bld) [#/Vol] 10.1 E9/L Normal 4.0-11.0 [facility] Comment on above: Performed By: #### 2 033456, 1177864, 09202744, 6057471 ####[address] [address] CMPon 01-10-2022 Albumin [Mass/Vol] 4.4 g/dL Normal 3.3-5.0 [facility] Comment on above: Performed By: #### 2 208164, 4414622, 49510145, 5509774 ####[address] [place] [address] Albumin/Globulin (S) [Mass conc ratio] 1.5 Normal 1.1-2.2 [facility] Comment on above: Performed By: #### 2 877003, 4379064, 15603128, 8906418 ####[facility] [address] [place] [address] ALP [Catalytic activity/Vol] 55 Int._Unit/L Normal 21-98 [facility] Comment on above: Performed By: #### 2 323891, 1056134, [id number], [id number] ####[facility] [address] [place] [address] ALT No additional P-5'-P [Catalytic activity/Vol] 15 Int._Unit/L Normal 6-46 [facility] Comment on above: Performed By: #### 2 701568, 7008850, [id number], [id number] ####[facility] [address] [place] [address] Anion gap [Moles/Vol] 19 mmol/L High 6-16 [facility] Comment on above: Performed By: #### 2 820681, 3683772, 55383186, 8147942 ####[facility] [address] [place] [address] AST [Catalytic activity/Vol] 19 Int._Unit/L Normal 5-43 [facility] Comment on above: Performed By: #### 2 183759, 1420899, 44936186, 4200162 ####[facility] [address] [place] [address] Bilirubin [Mass/Vol] 0.7 mg/dL Normal 0.0-1.1 [facility] Comment on above: Performed By: #### 2 455406, 0413188, 13564699, 3013960 ####[facility] [address] [place] [address] Calcium [Mass/Vol] 10.5 mg/dL Normal 8.9-11.1 [facility] Comment on above: Performed By: #### 2 172888, 5005879, [id number], 3797671 ####[facility] [address] [place] [place] [address] Chloride [Moles/Vol] 103 mmol/L Normal 101-111 [facility] Comment on above: Performed By: #### 2 561450, 1122480, [id number], 5894099 ####[facility] [address] [place] [address] CO2 [Moles/Vol] 23 mmol/L Normal 21-31 [facility] Comment on above: Performed By: #### 2 805291, 0494415, 38787807, 0076725 ####[facility] [address] [place] [address] Creatinine [Mass/Vol] 1.2 mg/dL Normal 0.5-1.3 [facility] Comment on above: Performed By: #### 2 627179, 8249372, 01322434, 2781239 ####[facility] [address] [place] [address] Globulin (S) [Mass/Vol] 2.9 g/dL Normal 1.4-4.0 [facility] Comment on above: Performed By: #### 2 575636, 2221110, 75394107, 9804785 ####[facility] [address] [place] [address] Glucose [Mass/Vol] 94 mg/dL Normal 55-199 [facility] Comment on above: Result Comment: If t his glucose result represents a fasting glucose, interpretation should refer to the following reference range: 55-99 mg/dL Performed By: #### 2 720091, 2772757, 46963797, 9328035 ####[facility] [address] [place] [address] Potassium [Moles/Vol] 4.7 mmol/L Normal 3.5-5.3 [facility] Comment on above: Performed By: #### 2 470223, 7042837, 46244499, 4276388 ####[facility] [address] [place] [address] Protein [Mass/Vol] 7.3 g/dL Normal 6.0-7.8 [facility] Comment on above: Performed By: #### 2 019175, 6680140, 27604030, 4415763 ####[facility] [facility] [address] [place] [address] Sodium [Moles/Vol] 140 mmol/L Normal 135-145 [facility] Comment on above: Performed By: #### 2 [id number], [id number], [id number], [id number] ####[facility] [address] [place] [address] Urea nitrogen [Mass/Vol] 25 mg/dL High 5-21 [facility] Comment on above: Performed By: #### 2 [id number], [id number], [id number], [id number] ####[facility] [address] [place] [address] Urea nitrogen/Creatinine [Mass ratio] 21 No Units High 10-20 [facility] Comment on above: Performed By: #### 2 [id number], [id number], [id number], [id number] ####[facility] [address] [place] [address] Consent for Treatmenton 10-0 Consent for Treatment [id number]:127 Normal [facility] Gastroenterology Office/Clin ic Noteon 01-10-2022 Gastroenterology Office/Clinic [...] had previous EGD with Dr. Brannon at [facility] 07/2020 that revealed normal EGD. Was previously evaluated at [facility] 11/12/21 for N/V/D and had [...] year. Patient had previous colonoscopy 2010 in [place] and reports was normal. Patient reports hx. [...] to evaluate for acute process. 11/12/21 at [facility]-CT abdomen/pelvis that showed fat-containing ventral hernia. Tenderness [...] at times. (more content not included)... Normal [facility] Comment on above: Result Comment: Elec tronically [...] your local community. General instructions ? Take ohvj-hau-ebqbfve and prescription medicines only as told by [...] [facility] Gastrointestinal Disorders: [email or web address] ? [employer]: [email or web address] Contact a health care provider if: ? You have a fever. ? You have redness, swelling, or pain around your rectum. ? Your pain is getting worse or you lose feeling in your rectal area. ? You have blood (more content not included)... Normal [facility] eGFRon 01-10-2022 GFR/1.73 sq M.predicted among blacks MDRD (S/P/Bld) [Vol rate/Area] 53 mL/min/1.73 m2 Low >=59 [facility] Comment on above: Order Comment: Order added by Discern Expert. Result Comment: eGFR is race adjusted. AA=. Performed By: #### 2 [id number], [id number], [id number], [id number] ####[facility] [address] [place] [address] GFR/1.73 sq M.predicted among non-blacks MDRD (S/P/Bld) [Vol rate/Area] 43 mL/min/1.73 m2 Low >=59 [facility] Comment on above: Order Comment: Order added by Discern Expert. Result Comment: Nuclear Engineer serene kidney disease could be indicated at eGFR's of less than 60 mL/min/1.73m2. Kidney failure is indicated at less than 15 mL/min/1.73m2. Performed By: #### 2 [id number], [id number], [id number], [id number] ####[facility] [address] [place] [address] Physician Referralon 022 Physician Referral [id number]:127 Normal [facility] Urine culture routineOrdered By: Misbah Greenwood on 11-15-2021 Bacteria identified Cx Nom (U) Escherichia coli [facility] Bacteria identified Cx Nom (U) Klebsiella pneumoniae [facility] Automated erythrocytes count in urine sediment (number/area)Ordered By: Misbah Greenwood on 11-12-2021 RBC Auto (Urine sed) [#/Area] 1-2 [HPF] 0-[address] [facility] Automated leukocytes count i n urine sediment (number/area)Ordered By: Misbah Greenwood on 11-12-2021 WBC Auto (Urine sed) [#/Area] 10-19 [HPF] 0-[address] [facility] Automated urine hyaline cast s count (number/volume)Ordered By: Misbah Greenwood on 11-12-2021 Hyaline casts Auto (U) [#/Vol] Rare [LPF] 0-[address] [facility] Basophils Auto (Bld) [#/Vol] Ordered By: Misbah Greenwood on 11-12-2021 Basophils (Bld) [#/Vol] 0.1 10*3/uL 0.0-0.[address] [facility] Basophils/100 WBC Auto (Bld) Ordered By: Misbah Greenwood on 11-12-2021 Basophils/100 WBC (Bld) 0.7 % . [facility] Bilirubin Test strip Ql (U)O rdered By: Misbah Greenwood on 11-12-2021 Bilirubin Ql (U) Negative Negative [facility] Blood hemoglobin measurement (mass/volume)Ordered By: Misbah Greenwood on 11-12-2021 Hemoglobin (Bld) [Mass/Vol] 10.8 g/dL 11.8-15.[address] [facility] Blood leukocytes automated c ount (number/volume)Ordered By: Misbah Greenwood on 11-12-2021 WBC (Bld) [#/Vol] 12.3 10*3/uL 4.5-11.0 [facility] Body fluid albumin measureme nt (mass/volume)Ordered By: Misbah Greenwood on 11-12-2021 Albumin (Body fld) [Mass/Vol] 3.7 g/dL 3.2-5.[address] [facility] COVID-19 SOFIAOrdered By: Kee Greenwood on 11-12-2021 SARS-CoV+SARS-CoV-2 (COVID-19) Ag IA.rapid Ql (Resp) Negative Negative [facility] Comment on above: This is a duplicate Johana SARS Antigen (DEEDEE) result to be used for statistical tracking purpose only. Casts typing in urine sedime nt by light microscopyOrdered By: Misbah Greenwood on 11-12-2021 Casts LM Nom (Urine sed) None seen [LPF] None Seen [facility] Color Auto (U)Ordered By: Kee Greenwood on 11-12-2021 Color (U) Yellow Yellow [facility] Creatinine and Glomerular fi ltration rate.predicted panel (S/P/Bld)Ordered By: Misbah Greenwood on 11-12-2021 Creatinine [Mass/Vol] 1.58 mg/dL 0.44-1.03 [facility] Eosinophils Auto (Bld) [#/Vo l]Ordered By: Misbah Greenwood on 11-12-2021 Eosinophils (Bld) [#/Vol] 0.2 10*3/uL 0.0-0.[address] [facility] Eosinophils/100 WBC Auto (Bl d)Ordered By: Misbah Greenwood on 11-12-2021 Eosinophils/100 WBC (Bld) 1.4 % . [facility] Erythrocyte distribution wid th Auto (RBC) [Ratio]Ordered By: Misbah Greenwood on 11-12-2021 Erythrocyte distribution width (RBC) [Ratio] 13.7 % 11.9-15.[address] [facility] Estimated glomerular filtrat ion rate (GFR) non- AmericanOrdered By: Misbah Greenwood on 11-12-2021 GFR/1.73 sq M.predicted among non-blacks MDRD (S/P/Bld) [Vol rate/Area] 32 mL/Min [facility] Globulin Calc (S) [Mass/Vol] Ordered By: Misbah Greewnood on 11-12-2021 Globulin (S) [Mass/Vol] 3.0 g/dL [facility] Hematocrit Auto (Bld) [Volum e fraction]Ordered By: Misbah Greenwood on 11-12-2021 Hematocrit (Bld) [Volume fraction] 32.4 % 34.0-46.[address] [facility] Ketones Auto test strip (U) [Mass/Vol]Ordered By: Misbah Greenwood on 11-12-2021 Ketones (U) [Mass/Vol] Negative Negative [facility] Laboratory - Chemistry and C hemistry - challengeOrdered By: Misbah Greenwood on 11-12-2021 Lipase [Catalytic activity/Vol] 44.0 U/L 22-[address] [facility] Laboratory - Hematology and Cell countsOrdered By: Misbah Greenwood on 11-12-2021 Nucleated RBC/100 WBC (Bld) [Ratio] 0.0 % 0-0.[address] [facility] Lymphocytes Auto (Bld) [#/Vo l]Ordered By: Misbah Greenwood on 11-12-2021 Lymphocytes (Bld) [#/Vol] 0.9 10*3/uL 1.00-4.[address] [facility] Lymphocytes/100 WBC Auto (Bl d)Ordered By: Misbah Greenwood on 11-12-2021 Lymphocytes/100 WBC (Bld) 7.5 % . [facility] MCH Auto (RBC) [Entitic mass ]Ordered By: Misbah Greenwood on 11-12-2021 MCH (RBC) [Entitic mass] 29.9 pg 24.7-34.[address] [facility] MCHC Auto (RBC) [Mass/Vol]Or dered By: Misbah Greenwood on 11-12-2021 MCHC (RBC) [Mass/Vol] 33.2 g/dL 32.0-35.0 [facility] MCV Auto (RBC) [Entitic vol] Ordered By: Misbah Greenwood on 11-12-2021 MCV (RBC) [Entitic vol] 90.0 fL 80-[address] [facility] Monocytes Auto (Bld) [#/Vol] Ordered By: Misbah Greenwood on 11-12-2021 Monocytes (Bld) [#/Vol] 1.0 10*3/uL 0.0-0.[address] [facility] Monocytes/100 WBC Auto (Bld) Ordered By: Misbah Greenwood on 11-12-2021 Monocytes/100 WBC (Bld) 8.3 % . [facility] Neutrophils Auto (Bld) [#/Vo l]Ordered By: Misbah Greenwood on 11-12-2021 Neutrophils (Bld) [#/Vol] 10.1 10*3/uL 1.8-7.[address] [facility] Neutrophils/100 WBC Auto (Bl d)Ordered By: Misbah Greenwood on 11-12-2021 Neutrophils/100 WBC (Bld) 82.1 % . [facility] Nitrite Test strip Ql (U)Ord ered By: Misbah Greenwood on 11-12-2021 Nitrite Ql (U) Negative Negative [facility] No Panel InformationOrdered By: Misbah Greenwood on 11-12-2021 Estimated GFR () 38 mL/Min [facility] Comment on above: GFR estimated refere nce range: According to KDOQI guidelines, <60 ml/min/1.73m2 is sufficient to diagnose a patient with chronic kidney disease. Pharmacy Creatinine Clearance (Chem 20.[address] [facility] SARS Antigen (LFIA) [facility] Platelet mean volume Auto (B ld) [Entitic vol]Ordered By: Misbah Greenwood on 11-12-2021 Platelet mean volume (Bld) [Entitic vol] 7.6 fL 6.3-10.[address] [facility] Platelets Auto (Bld) [#/Vol] Ordered By: Misbah Greenwood on 11-12-2021 Platelets (Bld) [#/Vol] 379 10*3/uL 150-[address] [facility] Protein Auto test strip (U) [Mass/Vol]Ordered By: Misbah Greenwood on 11-12-2021 Protein (U) [Mass/Vol] Trace mg/dL Negative [facility] Protein [Mass/volume] in Ser um or PlasmaOrdered By: Misbah Greenwood on 11-12-2021 Protein [Mass/Vol] 6.7 g/dL 6.1-7.9 [facility] RBC Auto (Bld) [#/Vol]Ordere d By: Misbah Greenwood on 11-12-2021 RBC (Bld) [#/Vol] 3.59 10*6/uL 3.60-5.00 [facility] Serum or plasma alanine villanueva otransferase measurement without P-5'-P (enzymatic activiOrdered By: Misbah Greenwood on 11-12-2021 ALT No additional P-5'-P [Catalytic activity/Vol] 13 U/L 10-[address] [facility] Serum or plasma albumin/glob ulin mass ratioOrdered By: Misbah Greenwood on 11-12-2021 Albumin/Globulin [Mass ratio] 1.2 {ratio} [facility] Serum or plasma alkaline ladarius sphatase measurement (enzymatic activity/volume)Ordered By: Misbah Greenwood on 11-12-2021 ALP [Catalytic activity/Vol] 74 U/L 32-[address] [facility] Serum or plasma aspartate am inotransferase measurement (enzymatic activity/volume)Ordered By: Misbah Greenwood on 11-12-2021 AST [Catalytic activity/Vol] 17 U/L 10-[address] [facility] Serum or plasma calcium dennis urement (mass/volume)Ordered By: Misbah Greenwood on 11-12-2021 Calcium [Mass/Vol] 9.5 mg/dL 8.2-10.2 [facility] Serum or plasma chloride brea surement (moles/volume)Ordered By: Misbah Greenwood on 11-12-2021 Chloride [Moles/Vol] 103 mmol/L 95-114 [facility] Serum or plasma glucose dennis urement (mass/volume)Ordered By: Misbah Greenwood on 11-12-2021 Glucose [Mass/Vol] 118 mg/dL 70-100 [facility] Comment on above: ADA recommended refe rence range Random Glucose Reference Range is dependent on time and content of last meal. Glucose of more than 200 mg/dL in a nonstressed, ambulatory subject supports the diagnosis of Diabetes Mellitus. Serum or plasma potassium me asurement (moles/volume)Ordered By: Misbah Greenwood on 11-12-2021 Potassium [Moles/Vol] 3.7 mmol/L 3.5-5.1 [facility] Serum or plasma sodium measu rement (moles/volume)Ordered By: Misbah Greenwood on 11-12-2021 Sodium [Moles/Vol] 135 mmol/L 136-146 [facility] Serum or plasma total biliru bin measurement (mass/volume)Ordered By: Misbah Greenwood on 11-12-2021 Bilirubin [Mass/Vol] 0.3 mg/dL 0.3-1.2 [facility] Serum or plasma total carbon dioxide measurement (moles/volume)Ordered By: Misbah Greenwood on 11-12-2021 CO2 [Moles/Vol] 19.9 mmol/L 22.0-30.0 [facility] Serum or plasma urea nitroge n measurement (mass/volume)Ordered By: Misbah Greenwood on 11-12-2021 Urea nitrogen [Mass/Vol] 21 mg/dL 9-[address] [facility] Specific gravity Auto test s trip (U) [Rel density]Ordered By: Misbah Greenwood on 11-12-2021 Specific gravity (U) [Rel density] 1.012 1.001-1.[address] [facility] Squamous epithelial cells de tection in urine sediment by light microscopyOrdered By: Misbah Greenwood on 11-12-2021 Epithelial cells.squamous LM Ql (Urine sed) 5-9 [HPF] 0-[address] [facility] Urine bacteria detection by automated methodOrdered By: Misbah Greenwood on 11-12-2021 Bacteria Auto Ql (U) None seen None Seen [facility] Urine clarity by refractomet ry automatedOrdered By: Misbah Greenwood on 11-12-2021 Clarity Refractometry automated (U) Clear Clear [facility] Urine glucose measurement by automated test strip (mass/volume)Ordered By: Misbah Greenwood on 11-12-2021 Glucose Auto test strip (U) [Mass/Vol] Normal mg/dL Normal [facility] Urine hemoglobin detection b y automated test stripOrdered By: Misbah Greenwood on 11-12-2021 Hemoglobin Auto test strip Ql (U) Negative Negative [facility] Urine leukocyte esterase det ection by automated test stripOrdered By: Misbah Greenwood on 11-12-2021 Leukocyte esterase Auto test strip Ql (U) 1+ Negative [facility] Urine sediment renal epithel ial cell count by microscopy (number/high power field)Ordered By: Misbah Greenwood on 11-12-2021 Epithelial cells.renal LM.HPF (Urine sed) [#/Area] None seen [HPF] 0-[address] [facility] Urobilinogen Auto test strip (U) [Mass/Vol]Ordered By: Misbah Greenwood on 11-12-2021 Urobilinogen (U) [Mass/Vol] Normal mg/dL Normal [facility] pH Auto test strip (U)Ordere d By: Misbah Greenwood on 11-12-2021 pH (U) 5.5 [pH] 5.0-9.[address] [facility] SCREENING MAMMOGRAM W/DANIEL, BILATERAL*on 10-18-2021 [...] VERY IMPORTANT TO YOUR HEALTH. THE CURRENT [employer] GUIDELINES RECOMMEND ANNUAL MAMMOGRAPHY BEGINNING AT AGE 40. THIS FACILITY UTILIZES A REMINDER SYSTEM TO ENSURE ALL PATIENTS RECEIVE A REMINDER NOTIFICATION AT THE APPROPRIATE TIME BASED ON THE RECOMMENDATIONS OF THIS EXAM. BOARD CERTIFIED RADIOLOGIST. ACCREDITED BY THE [facility] AND FDA. Report reported and signed by Claudia Hinson on 10/21/2021 1432 Normal [facility] Stock Pitcher [facility] CARDIAC STRESS/REST INJE CTIONon 08-28-2021 [facility] CARDIAC STRESS/REST INJECTION Addendum Begins Patient Name: ADIAN PERRY ADDENDUM: The resting ECG on this study was sinus bradycardia with incomplete right bundle branch block. The ejection fraction was 70% with a t.i.d 1.10. To a study from another institution from 2016 there has been no significant interval changes Electronically signed by: MARK ZAMBRANO MD Addendum Ends Patient Name: ADINA PERRY STUDY: MYOCARDIAL PERFUSION STRESS TEST WITH LEXISCAN Performing facility: [facility], [address] [place] [address], [address], [address] Provider: Mary Ayala MD PCP: Dr. Cruz Supervising provider: aMry Ayala MD INDICATION: CAD; SOBOE Nonischemic cardiomyopathy HISTORY: Gender: F; Age: 81 y/o ; Height: 149.8 cm; Weight: 52.7 kg. High Cholesterol; HTN; SOB; Denies smoking. COMPARISON: Previous nuclear testing completed [id number] at [facility]. ACCESSION NUMBER(S): [id number]; [id number]; [id number] ORDERING CLINICIAN: MARY AYALA TECHNIQUE: ONE DAY [...] Electronically signed by: MARK ZAMBRANO MD Normal [facility] No Panel Informationon 08-28 Normal [facility] DO Work Phone: [facility] DO Work Phone: [...] my name below, I, Delmy Alcantara LPN ,Víctor, attest that this documentation has been prepared under the direction and in the presence of Dr. Nick Wasserman MD. All medical record entries made by the Jonahibe were at my direction and personally dictated [...] 07Jun2021 03:06PM Heart Rate60, L Brachial Artery Ggebzsvc324, LUE, Sitting Rcawzmtbq80, LUE, Sitting Height4 ft 11 in Mjfxlf033 lb BMI Blazplrgdh44.61 kg/m2 BSA Calculated1.41 Tobacco Useb) No PHQ-2 [...] Cardiovascular: carotid (more content not included)... Normal [employer] Tobacco Screening.on 022 Adult depression screening assessment No [facility] DO Work Phone: Fall risk assessment a) No falls within the last year [facility] [address] DO Work Phone: Tobacco use status [facility] b) No [facility] DO Work Phone: Tobacco Screening.on 021 Fall risk assessment a) No falls within the last year [facility] DO Work Phone: Tobacco use status [facility] b) No -[facility] DO Work Phone: No Panel Informationon 09-24 [facility]log[facility] [facility] [address] 450 DO Work Phone: [email or web address]} [facility]log[facility] 450 DO [...] capsule 1 cap(s) orally Normal [facility] [place] RNA by PCR, Screening Asymptomticon 09-21-2020 Coronavirus 2019 RNA by PCR, Screening Asymptomtic Not detected Normal [facility] Work Phone: Comment on [...] make patient management decisions.Fact sheet for providers: https://www.fda.gov/media/835937/downloadFact sheet for patients: https://www.fda.gov/media/667336/downloadThis test has received FDA Emergency Use Authorization (EUA) and has been verified by [facility] ([facility]). This test is only authorized for the duration of time that circumstances exist to justify the authorization of the emergency use of in vitro diagnostic tests for the detection of SARS-CoV-2 virus and/or diagnosis of COVID-19 infection under section 564(b)(1) of the Act, 21 U.S.C. 360bbb-3(b)(1), unless the authorization is terminated or revoked sooner. [facility] is certified under CLIA-88 as qualified to perform high complexity testing. Testing is performed in the [facility] laboratories located at [address] [place] [address]. ED NOTEon 04-08-2019 ED NOTE HNO ID: [id number] Author: Maria Teresa (Rn) LINA Oliver Service: ? Author Type: Registered Nurse Type: ED Notes Filed: 04/08/2019 7:07 PM Note Text: Patient discharged per MD orders, RN at bedside to explain and review s/sx of worsening condition and to return to ED if worsening s/sx develop. Follow up care and questions answered with patient/family. [facility] ED NOTE HNO ID: [id number] Author: Lenore Casey (Rn) João RN Service: ? Author Type: Registered Nurse Type: ED Notes Filed: 04/08/2019 5:16 PM Note Text: Bed: ED-11H Expected date: Expected time: Means of arrival: Comments: [facility] ED NOTE HNO ID: [id number] Author: Maribell (Medic) Rebecca Hansen Service: ? 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 Went to urgent care and her BP was high so sent here. Normal [facility] ED PROV NOTEon 04-08-2019 ED PROV NOTE HNO ID: [id number] Author: Elenita Castillo Service: Emergency Medicine Author Type: Physician [employer] Insurance Agent Type: ED Provider Notes Filed: 04/09/2019 3:31 [...] of the extremities. History provided by: Patient brusher machine used: No PAST MEDICAL HISTORY Diagnosis Date - Asthma - CAD (coronary artery disease) - Chronic cough due to asthma - Dyslipidemia - GERD (gastroesophageal reflux disease) - Hypertension - ND, old - MRSA infection - Myocarditis (HCC) PAST SURGICAL HISTORY Procedure Laterality Date - BACK SURGERY HX - CHOLECYSTECTOMY - COLONOSCOPY 2014 -was told she does not need anothe one-done in [place] - EGD 08/17/2018 /Normal - VALENTIN W/WO [...] or wounds Nose: Nose normal. Mouth/Throat: Lips: [place]. Mouth: Mucous membranes are moist. Pharynx: Oropharynx [...] SIGNATURE: STEVIE Solano Pa-C 04/09/19 1531 Normal [facility] Vital Signs Date Time Vital Sign Value Performing Clinician Facility 05-07-2023 09:00-0500 Body mass index (BMI) [Ratio] 22.38 kg/m2 [employer] Work Phone: [facility] 05-07-2023 09:00-0500 Body weight 50.26 kg [employer] Work Phone: [facility] 05-07-2023 09:00-0500 Diastolic blood pressure 68 mm[Hg] Chevia DO Work Phone: [facility] 05-07-2023 09:00-0500 Heart rate 81 /min AdrianaKairos AR Work Phone: [facility] 05-07-2023 09:00-0500 SaO2% (BldA) [Mass fraction] 99 % [employer] Work Phone: [facility] 05-07-2023 09:00-0500 Systolic blood pressure 116 mm[Hg] [employer] DO Work Phone: [facility] 02-11-2023 09:05-0500 Body height 152.4 cm [employer] Other [employer] Other 02-11-2023 09:05-0500 Body mass index (BMI) [Ratio] 20.5 kg/m2 [employer] Other [place] Other 02-11-2023 09:05-0500 Body temperature 97.7 [degF] Eliecer Gray Other [employer] Other 02-11-2023 09:05-0500 Body weight 47.63 kg Eliecer Gray Other [employer] Other 02-11-2023 09:05-0500 Diastolic blood pressure 93 mm[Hg] Eliecer Gray Other [employer] Other 02-11-2023 09:05-0500 Respiratory rate 18 /min Eliecer Gray Other [employer] Other 02-11-2023 09:05-0500 SaO2% (BldA) [Mass fraction] 97 % Eliecer Gray Other [employer] Other 02-11-2023 09:05-0500 Systolic blood pressure 166 mm[Hg] Eliecer Gray Other [employer] Other 02-02-2023 11:06-0400 Body height 142.2 cm [...] Body height 152.4 cm Luis Nolasco Other [employer] Other 08-30-2022 10:55-0400 Body mass index (BMI) [Ratio] 20.7 kg/m2 Luis Nolasco Other [employer] Other 08-30-2022 10:55-0400 Body temperature 97.8 [degF] Luis Nolasco Other [employer] Other 08-30-2022 10:55-0400 Body weight 48.08 kg Luis Nolasco Other [employer] Other 08-30-2022 10:55-0400 Diastolic blood pressure 70 mm[Hg] Luis Nolasco Other [employer] Other 08-30-2022 10:55-0400 Respiratory rate 18 /min Luis Nolasco Other [employer] Other 08-30-2022 10:55-0400 SaO2% (BldA) [Mass fraction] 97 % Luis Nolasco Other [employer] Other 08-30-2022 10:55-0400 Systolic blood pressure 123 mm[Hg] Luis Nolasco Other [employer] Other 03-06-2022 15:48-0500 Diastolic blood pressure 72 mm[Hg] Adriana Murphy [place] Work Phone: [facility] 250 DO Work Phone: 03-06-2022 15:48-0500 Systolic blood pressure 136 mm[Hg] Adriana D [place] Work Phone: [facility] 250 DO Work Phone: 03-06-2022 15:25-0500 Body height 144.78 cm Adriana D [place] Work Phone: [facility] [address] DO Work Phone: 03-06-2022 15:25-0500 Body mass index (BMI) [Ratio] 23.37 kg/m2 Adriana D [place] Work Phone: [facility] 250 DO Work Phone: 03-06-2022 15:25-0500 Body surface area Derived from formula 1.38 m2 Adriana D [place] Work Phone: [facility] [address] DO Work Phone: 03-06-2022 15:25-0500 Body weight 48.99 kg Adriana D [place] Work Phone: [facility] [address] DO Work Phone: 03-06-2022 15:25-0500 Diastolic blood pressure 64 mm[Hg] Adriana D [place] Work Phone: [facility] 250 DO Work Phone: 03-06-2022 15:25-0500 Heart rate 66 /min Adriana D [place] Work Phone: [facility] 250 DO Work Phone: 03-06-2022 15:25-0500 Systolic blood pressure 154 mm[Hg] Adriana D [place] Work Phone: [facility] 250 DO Work Phone: 01-17-2022 10:25-0400 Diastolic blood pressure 81 mm[Hg] Govea SALAM [facility] 01-17-2022 10:25-0400 Heart rate 55 /min Govea SALAM [facility] 01-17-2022 10:25-0400 Respiratory rate 14 /min Govea SALAM [facility] 01-17-2022 10:25-0400 SaO2% (BldA) [Mass fraction] 98 % Govea SALAM [facility] 01-17-2022 10:25-0400 Systolic blood pressure 158 mm[Hg] Govea SALAM [facility] 01-17-2022 10:10-0400 Diastolic blood pressure 64 mm[Hg] Govea SALAM [facility] 01-17-2022 10:10-0400 Heart rate 56 /min Govea SALAM [facility] 01-17-2022 10:10-0400 Respiratory rate 14 /min Govea SALAM [facility] 01-17-2022 10:10-0400 SaO2% (BldA) [Mass fraction] 100 % Govea SALAM [facility] 01-17-2022 10:10-0400 Systolic blood pressure 141 mm[Hg] Govea SALAM [facility] 01-17-2022 10:05-0400 Diastolic blood pressure 60 mm[Hg] Govea SALAM [facility] 01-17-2022 10:05-0400 Heart rate 57 /min Govea SALAM [facility] 01-17-2022 10:05-0400 Respiratory rate 14 /min Govea SALAM [facility] 01-17-2022 10:05-0400 SaO2% (BldA) [Mass fraction] 98 % Govea SALAM [facility] 01-17-2022 10:05-0400 Systolic blood pressure 131 mm[Hg] Govea SALAM [facility] 01-17-2022 09:56-0400 Body temperature 96.98 [degF] Govea SALAM [facility] 01-17-2022 07:50-0400 Blood Pressure Location Govea SALAM [facility] 01-17-2022 07:50-0400 Body temperature 98.06 [degF] Govea SALAM [facility] 01-10-2022 10:48-0400 Diastolic blood pressure 64 mm[Hg] Shi Sundeep [facility] 01-10-2022 10:48-0400 Mean blood pressure 95 mm[Hg] Shi Sundeep [facility] 01-10-2022 10:48-0400 Systolic blood pressure 158 mm[Hg] Shi Sundeep [facility] 01-10-2022 10:44-0400 Blood Pressure Location Shimerly DonaldsonSundeep [facility] 01-10-2022 10:44-0400 Body temperature 97.34 [degF] Shi Sundeep [facility] 01-10-2022 10:44-0400 Diastolic blood pressure 73 mm[Hg] Shi Sundeep [facility] 01-10-2022 10:44-0400 Heart rate 51 /min Shi Sundeep [facility] 01-10-2022 10:44-0400 Systolic blood pressure 167 mm[Hg] Shi Urbano [facility] 11-13-2021 00:00-0400 Diastolic blood pressure 68 mm[Hg] DO Adriana [place] Work Phone: [facility] 11-13-2021 00:00-0400 Heart rate 62 /min DO Adriana [place] Work Phone: [facility] 11-13-2021 00:00-0400 Respiratory rate 18 /min DO Adriana [place] Work Phone: [facility] 11-13-2021 00:00-0400 SaO2% (BldA) [Mass fraction] 100 % DO Adriana [place] Work Phone: [facility] 11-13-2021 00:00-0400 Systolic blood pressure 133 mm[Hg] DO Adriana [place] Work Phone: [facility] 11-12-2021 18:52-0400 Body height 144.78 cm DO Adriana [place] Work Phone: [facility] 11-12-2021 18:52-0400 Body temperature 98.1 [degF] DO Adriana [place] Work Phone: [facility] 11-12-2021 18:52-0400 Body weight 45.35 kg DO Adriana [place] Work Phone: [facility] 08-29-2021 10:00-0400 Body height 152.4 cm Clement Madrid II Other [place] Other 08-29-2021 10:00-0400 Body mass index (BMI) [Ratio] 20.5 kg/m2 Clement Madrid II Other [place] Other 08-29-2021 10:00-0400 Body weight 47.63 kg Clement Madrid II Other [place] Other 08-28-2021 00:00-0400 65 1 Adriana D [place] Work Phone: [facility] 250 DO Work Phone: Comment on above: [id number] 08-25-2021 12:25-0400 Body height 152.4 cm Eliecer Currieaker Other [place] Other 08-25-2021 12:25-0400 Body mass index (BMI) [Ratio] 20.5 kg/m2 Eliecer Danvers Other [place] Other 08-25-2021 12:25-0400 Body temperature 97 [degF] Eliecer Isaac Other [place] Other 08-25-2021 12:25-0400 Body weight 47.63 kg Eliecer Gray Other [place] Other 08-25-2021 12:25-0400 Diastolic blood pressure 67 mm[Hg] Eliecer Isaac Other [place] Other 08-25-2021 12:25-0400 Respiratory rate 16 /min Eliecer Isaac Other [place] Other 08-25-2021 12:25-0400 SaO2% (BldA) [Mass fraction] 96 % Eliecer Isaac Other [place] Other 08-25-2021 12:25-0400 Systolic blood pressure 141 mm[Hg] Eliecer Gray Other Located Within [facility] Other 06-07-2021 15:06-0500 Body height 149.86 cm Adriana Katherine [place] Work Phone: [facility] 250 DO Work Phone: 06-07-2021 15:06-0500 Body mass index (BMI) [Ratio] 21.61 kg/m2 Adriana D [place] Work Phone: [facility] 250 DO Work Phone: 06-07-2021 15:06-0500 Body surface area Derived from formula 1.41 m2 Adriana D [place] Work Phone: [facility] 250 DO Work Phone: 06-07-2021 15:06-0500 Body weight 48.54 kg Adriana D [place] Work Phone: [facility] 250 DO Work Phone: 06-07-2021 15:06-0500 Diastolic blood pressure 62 mm[Hg] Adriana Katherine [place] Work Phone: [facility] 250 DO Work Phone: 06-07-2021 15:06-0500 Heart rate 60 /min Adriana D [place] Work Phone: [facility] 250 DO Work Phone: 06-07-2021 15:06-0500 Systolic blood pressure 125 mm[Hg] Adriana D [place] Work Phone: [facility] 250 DO Work Phone: 03-05-2021 10:47-0500 Body height 149.86 cm Adriana D [place] Work Phone: [facility] 250 DO Work Phone: 03-05-2021 10:47-0500 Body mass index (BMI) [Ratio] 22.02 kg/m2 Adriana Katherine [place] Work Phone: [facility] 250 DO Work Phone: 03-05-2021 10:47-0500 Body surface area Derived from formula 1.42 m2 Adriana Murphy [place] Work Phone: [facility] 250 DO Work Phone: 03-05-2021 10:47-0500 Body weight 49.44 kg Adriana Katherine [place] Work Phone: [facility] 250 DO Work Phone: 03-05-2021 10:47-0500 Diastolic blood pressure 66 mm[Hg] Adriana Murphy [place] Work Phone: [facility] 250 DO Work Phone: 03-05-2021 10:47-0500 Heart rate 59 /min Adriana Katherine [place] Work Phone: [facility] 250 DO Work Phone: 03-05-2021 10:47-0500 Systolic blood pressure 127 mm[Hg] Adriana Murphy [place] Work Phone: [facility] 250 DO Work Phone: Encounters Encounter Date Encounter Type Care Provider Facility Start: 06-01-2023 End: 06-01-2023 ambulatory DO Adriana [place] Work Phone: [facility] Work Phone: Start: 06-01-2023 End: 06-01-2023 Patient encounter procedure DO Adriana [place] Work Phone: [facility] Work Phone: Start: 05-07-2023 End: 05-07-2023 ambulatory ADRIANA D TIRADO-EMERY Not Available Start: 05-07-2023 End: 05-07-2023 Office outpatient visit 15 minutes Adriana D [place] DO Work Phone: [facility] Comment on above: Osteoporosis, post-m enopausal (CMS/HCC) (Primary Dx) Start: 04-16-2023 End: 04-17-2023 ambulatory ADRIANA D TIRADO-EMERY Not Available Start: 04-10-2023 End: 04-11-2023 ambulatory ADRIANA D TIRADO-EMERY Not Available Start: 03-04-2023 End: 03-04-2023 ambulatory VALENTÍN D DOLCE Not Available Start: 02-18-2023 End: 02-18-2023 ambulatory ADRIANA D TIRADO-EMERY Not Available Start: 02-11-2023 Office outpatient vi sit 15 minutes Eliceer Gray [facility] Urgent [facility] Start: 02-11-2023 End: 02-11-2023 ambulatory Eliecer Gray Facility:[facility] Start: 02-11-2023 End: 02-11-2023 ambulatory DO Adriana [place] Work Phone: [facility] Work Phone: Start: 02-11-2023 End: 02-11-2023 Departed Referred DO Adriana [place] Work Phone: [facility] 250 Start: 02-02-2023 End: 02-02-2023 ambulatory Adriana [place] Facility:[facility] Start: 02-02-2023 End: 02-02-2023 ambulatory DO Adriana [place] Work Phone: [facility] Work Phone: Start: 02-02-2023 End: 02-02-2023 Patient encounter procedure DO Adriana [place] Work Phone: [facility] [place] Work Phone: Start: 02-02-2023 End: 02-02-2023 Office outpatient visit 25 minutes Nick Wasserman MD Work Phone: [facility] Comment on above: Coronary artery dise ase involving iroquois coronary artery of iroquois heart without angina pectoris (Primary Dx); Essential hypertension, benign; Mixed hyperlipidemia; Nonischemic cardiomyopathy (CMS/HCC) Start: 12-18-2022 End: 12-18-2022 ambulatory Savanna Cassidy Other [place] Other Start: 12-18-2022 Office outpatient vi sit 15 minutes Savanna Cassidy [facility] [facility] Start: 08-30-2022 End: 08-30-2022 ambulatory Luis Nolasco Other [place] Other Start: 08-30-2022 Office outpatient vi sit 15 minutes Luis Nolasco [facility] Urgent Care [facility] Start: 05-14-2022 Chart Update Adriana D [place] Work Phone: [facility] 250 DO Work Phone: Start: 03-06-2022 Office outpatient vi sit 15 minutes Adriana Murphy [place] Work Phone: [facility] 250 DO Work Phone: Start: 03-06-2022 ambulatory Nick Wasserman II Facility: Start: 03-03-2022 End: 03-04-2022 ambulatory Jay Power Facility:[facility] Start: 02-25-2022 ambulatory Adriana Cruz Facility: Start: 02-24-2022 End: 02-25-2022 ambulatory Jay Power Facility:[facility] [place] Start: 02-19-2022 End: 02-19-2022 ambulatory Jay Power Facility:[facility] [place] Start: 02-04-2022 ambulatory Adriana Cruz Facility: Start: 02-04-2022 End: 02-05-2022 ambulatory Jay Power Facility:[facility] [place] Start: 02-03-2022 End: 02-04-2022 ambulatory Jay Power Facility: [facility] Start: 01-17-2022 End: 01-18-2022 ambulatory Jeferson COPE Facility:[facility] [place] Start: 01-17-2022 End: 01-17-2022 Patient encounter procedure Jeferson COPE [facility] Start: 01-13-2022 End: 01-14-2022 ambulatory Shi Urbano Facility:[facility] [place] Start: 01-10-2022 End: 01-11-2022 ambulatory Shi Urbano Facility:[facility] [place] Start: 01-10-2022 End: 01-11-2022 ambulatory Shi Urbano Facility:[facility] Start: 01-10-2022 Rx Renewal Adriana Cruz Work Phone: [facility] 250 DO Work Phone: Start: 01-10-2022 End: 01-10-2022 Patient encounter procedure Shi Urbano [facility] Start: 12-24-2021 ambulatory Adriana Cruz Facility: Start: 11-14-2021 ambulatory Shi Urbano Facili ty:[facility] Start: 11-12-2021 End: 11-13-2021 Emergency department patient visit DO Adriana Tirado-Iván Work Phone: [facility] Start: 08-30-2021 Chart Update Adriana Cruz Work Phone: [facility] 250 DO Work Phone: Start: 08-29-2021 End: 08-29-2021 ambulatory Clement Madrid II Other Located Within [facility] Other Start: 08-29-2021 Office outpatient ne w 45 minutes Clement Madrid II [facility] Start: 08-28-2021 ambulatory Adriana Billie [place] Facility:[id number] Start: 08-25-2021 End: 08-25-2021 ambulatory Eliecer Gray Other [employer] Other Start: 08-25-2021 Office outpatient vi sit 15 minutes Eliecer Gray [facility] [address] Start: 08-08-2021 Patient encounter procedure Adriana D [place] Work Phone: [facility] 600 DO Work Phone: Start: 06-07-2021 Office outpatient vi sit 25 minutes Adriana D [place] [facility] Work Phone: Start: 06-07-2021 ambulatory Adriana Billie [place] Facility: Start: 03-05-2021 Office outpatient vi sit 25 minutes Adriana D [place] Work Phone: [facility] 250 DO Work Phone: Start: 09-28-2020 Chart Update Adriana D [place] Work Phone: XQ-Apchdpyfwhjwylsc-Pd [place] [facility] 450 DO Work Phone: Start: 09-24-2020 EUSANS, Provider: Vilma Salazar, Status: Pen, Time: 9:20 AM Adriana D [place] Work Phone: UF-Qhtoswptykxrxmnw-Fp [place] [facility] 450 DO Work Phone: Start: 09-23-2020 Chart Update Adriana D [place] Work Phone: WG-Urdcvmlvjvlfnagn-Bz [place] [facility] 450 DO Work Phone: Procedures Date Procedure Procedure Detail Performing Clinician Start: 01-17-2022 Colonoscopy Jeferson COPE Comment on above: biopsies, diverticulosis Start: 11-12-2021 Computed tomography of abdomen and pelvis with contrast DO Adriana [place] Work Phone: Start: 07-06-2020 Esophagogastroduodenoscopy Shi diana Comment on above: Dr Brannon Arthroplasty of knee Adriana Murphy [place] Work Phone: Cholecystectomy Adriana D [place] Work Phone: Colonoscopy Shi Urbano Comment on above: 2010 Esophagogastroduodenoscopy M taylor COPE Comment on above: normal, gastric biopsies Hysterectomy Adriana D [place] Work Phone: Operation on bladder Adriana Murphy [place] Work Phone: Procedure on back Adriana D [place] Work Phone: SARS Antigen (LFIA) DO Maximus a Tirado-SFOX Work Phone: Total colonoscopy Adriana Murphy [place] Work Phone: Urine culture DO Adriana [place] Work Phone: Plan of Treatment Date Care Activity Detail Author Start: 12-10-2023 Medicare Annual Wellness (AWV) Medicare Annual Wellness (AWV) [facility] Start: 09-15-2023 End: 09-15-2023 Patient encounter procedure 09/15/2023 9:30 AM EDT Office Visit [facility] [address] [facility] [address] [place] [id number] Nick Wasserman MD [address] [place] [address] [facility] Start: 09-08-2023 End: 09-08-2023 Patient encounter procedure 09/08/2023 8:45 AM EDT Office Visit [facility] [address] [place] [id number] Adriana Cruz, DO [address] [place] [address] [facility] Start: 06-01-2023 Pelvis X-ray XR pelvis 1-2V [facility] Start: 06-01-2023 Radiologic examinati on of knee XR knee LT 4V* [facility] Start: 06-01-2023 XR Knee - left [address] [facility] Start: 06-01-2023 XR Pelvis 1 or [address] [facility] Start: 02-11-2023 Bacteria identified in Urine by Culture [facility] Start: 02-02-2023 End: 02-03-2024 Basic metabolic 2000 panel - Serum or Plasma Basic Metabolic Panel Lab Routine Nonischemic cardiomyopathy (CMS/HCC) Expected: 02/02/2023 (Approximate), Expires: 02/03/2024 [facility] Service Area Work Phone: Comment [...] Nick Wasserman, Status: Pen, Time: 9:40 AM [facility] 250 DO Work Phone: Start: 03-06-2022 FUV, Provider: Nick Wasserman, Status: Pen, Time: 3:10 PM FUV, Provider: Nick Wasserman, Status: Pen, Time: 3:10 PM [facility] 250 DO Work Phone: Start: 02-25-2022 COVID-19 Vaccine (4 - Moderna series) COVID-19 Vaccine (4 - Moderna series) [facility] Start: 12-24-2021 FUV, Provider: Nick Wasserman, Status: Pen, Time: 11:20 AM FUV, Provider: Nick Wasserman, Status: Pen, Time: 11:20 AM [facility] 250 DO Work Phone: Start: 08-28-2021 STRESS NUC, Provider : [place] HHVI NUCLEAR 01,[id number], Status: Pen, Time: 12:00 PM STRESS NUC, Provider: [place] HHVI NUCLEAR 01,[id number], Status: Pen, Time: 12:00 PM [facility] 600 DO Work Phone: Start: 06-07-2021 FUV, Provider: Nick Wasserman, Status: Pen, Time: 3:10 PM FUV, Provider: Nick Wasserman, Status: Pen, Time: 3:10 PM [facility] Work Phone: Start: 11-23-2020 VIRNPVHOME, Provider : Estefanía Iyer, Status: Pen, Time: 9:30 AM VIRNPVHOME, Provider: Estefanía Iyer, Status: Pen, Time: 9:30 AM [facility] Work Phone: Start: 1964 DTaP/Tdap/Td Vaccine s (1 - Tdap) DTaP/Tdap/Td Vaccines (1 - Tdap) [facility] Start: 1940 Lipid panel Lipid Panel [facility] Start: 1940 Medicare Annual Wellness Visit Medicare Annual Wellness Visit (AWV) [facility] Start: 1940 Screening for osteoporosis Bone Density Scan [facility] Patient Education Dehydration, Adult (DC) [facility] Work Phone: Patient referral [facility] Work Phone: Immunizations Immunization Date Immunization Notes Care Provider Fa [facility] 01-16-2023 Influenza, Seasonal, Quadrivalent, Adjuvanted Nick Wasserman MD Work Phone: [facility] 01-11-2022 Fluzone High-Dose Quadrivalent 0.7 ML Intramuscular Suspension Prefilled Syringe Adriana D [employer]Talk [facility] Work Phone: 12-31-2021 Moderna Bivalent Booster Vaccination Adriana Teralynk[place] DO Work Phone: [facility] 12-31-2021 Pfizer COVID-19 Vac Bivalent 30 MCG/0.3ML Intramuscular Suspension Adriana D [place] Work Phone: [facility] DO Work Phone: 10-18-2021 Prevnar 20 0.5 ML Intramuscular Suspension Prefilled Syringe Adriana D [place] Work [facility]: [facility] Work Phone: 04-03-2021 Moderna COVID-19 Vaccine 100 MCG/0.5ML Intramuscular Suspension Adriana D [place] Work [facility]: [facility] Work Phone: 02-26-2021 influenza, high dose seasonal, preservative-free Adriana D [place] Work Phone: [facility] 250 DO Work Phone: 05-30-2020 Moderna COVID-19 Vaccine 100 MCG/0.5ML Intramuscular Suspension Adriana D [place] Work Phone: [facility] Comment on above: Reason for Medicatio n: Other (see comment) 05-07-2020 Moderna SARS-CoV-2 Vaccination Nick Wasserman MD Work Phone: [facility] Work Phone: 05-02-2020 Moderna COVID-19 Vaccine 100 MCG/0.5ML Intramuscular Suspension Adriana D [place] Work Phone: [facility] Comment on above: Reason for Medicatio n: Other (see comment) 04-02-2020 zoster vaccine recombinant Adriana D [place] Work Phone: [facility] 250 DO Work Phone: 02-01-2020 zoster vaccine recombinant Adriana D [place] Work Phone: [facility] 12-30-2019 Fluzone High-Dose Quadrivalent 0.7 ML Intramuscular Suspension Prefilled Syringe Adriana D [place] Work Phone: [facility] 01-04-2019 influenza, high dose seasonal, preservative-free Adriana D [place] Work Phone: [facility] 12-18-2017 influenza, high dose seasonal, preservative-free Adriana D [place] Work Phone: [facility] 11-18-2015 pneumococcal polysaccharide vaccine, 23 valent Adriana [place] DO Work Phone: [facility] NEGATED: Highlighted row has not occurred!01-10-2022 influenza virus vaccine, unspecified formulation Shi Urbano [facility] Payers Date Payer Category Payer Self-pay [id number] 2022 Medicare [id number] 2020 Private Health Insurance [id number] 2019 Unknown 2019 Unknown [id number] 2.16. [id number] 1942 Unknown [id number] 2.16.8 40.1.035468.3.579.2.727 1942 Unknown [id number] 2.16.8 40.1.077473.3.579.2.727 1942 Unknown [id number] 2.16.8 40.1.429237.3.579.2.727 1942 Unknown [id number] 2.16.8 40.1.476425.3.579.2.727 1942 Unknown [id number] 2.16.8 40.1.004513.3.579.2.727 1942 Unknown [id number] 2.16.8 40.1.123910.3.579.2.727 1942 Unknown [id number] 2.16.8 40.1.400717.3.579.2.727 1942 Unknown [id number] 2.16.8 40.1.111614.3.579.2.727 1942 Unknown [id number] 2.16.8 40.1.948883.3.579.2.727 1942 Unknown [id number] 2.16.8 40.1.744110.3.579.2.727 1942 Unknown [id number] 2.16. 840.1.748169.3.579.2.356 1942 Unknown [id number] 2.16. 840.1.646404.3.579.2.356 1942 Unknown [id number] 2.16. 840.1.503291.3.579.2.356 1942 Unknown [id number] 2.16. 840.1.294269.3.579.2.356 1942 Unknown [id number] 2.16. 840.1.789401.3.579.2.356 1942 Unknown [id number] 2.16. 840.1.285509.3.579.2.356 1942 Unknown [id number] 2.16.8 40.1.432225.3.579.2.1244 1942 Unknown [id number] 2.16.84 0.1.433468.3.579.2.1259 1942 Unknown [id number] 2.16.84 0.1.334633.3.579.2.1259 1942 Unknown [id number] 2.16.84 0.1.729473.3.579.2.1259 1942 Unknown [id number] 2.16.84 0.1.647910.3.579.2.1259 1942 Unknown [id number] 2.16.840 .1.798641.3.579.2.1259 1942 Unknown [id number] 2.16.840. 1.910073.3.579.2.1259 Medicare [id number] Medicare Medicare [id number] Unknown [id number] 2.16.8 40.1.132315.3.579.2.531 Unknown [id number] 2.16.8 40.1.380636.3.579.2.531 Social History Date Type Detail Facility Start: 12-09-2022 End: 02-02-2023 Daily caffeine consumption Daily caffeine consumption [facility] Comment on above: tea and a dr. dunbar ; Start: 12-09-2022 End: 02-02-2023 Sex Assigned At [place] Other Start: 11-12-2021 End: 02-11-2023 Tobacco smoking status NHIS Never smoked tobacco (finding) [facility] Start: 1940 Sex Assigned At Female F [facility] Start: 10-16-2022 End: 02-02-2023 Tobacco use and exposure Smokeless tobacco non-user [facility] Work Phone: Start: 02-02-2023 Alcohol intake Lifetime non-d arcelia (finding) [facility] Work Phone: Start: 1940 Sex Assigned At Not on file [facility] Work Phone: Start: 01-23-2023 End: 02-02-2023 Exposure to SARS-CoV-2 (event) Not sure [facility] Start: 05-07-2023 Alcohol intake Current drinke [...] Comment 1-2 drinks mon thly or less [facility] Start: 03-04-2023 Gender identity Identifies as female gender (finding) [facility] Functional Status Date Assessment Result Facility 01-17-2022 Functional Status N/A [facility] 01-10-2022 Functional Status N/A [facility] Clinical Notes 08-25-2021 to 05-07-2023 Adriana Cruz, DO - 05/07/2023 9:24 PM Brandt Cruz, DO - 05/07/2023 9:00 AM ESTPatient Instructions Note Date & Type Note Facility 05-07-2023 History of Presen t illness Narrative Associated Problem(s): Osteoporosis, post-menopausal ([facility]) Reviewed results of DEXA and how to [...] daily with a meal; Certain patients require 6185-4504 international units daily and in patients deficient [...] bones. Studies show approximately 50% of [place] men and women are vitamin D deficient [...] Anemia Chronic cough Chronic GERD Essential hypertension ([facility]) History of skin cancer Hyperlipidemia LDL goal <70 ([facility]) Major depressive disorder, single episode, moderate (HCC) ([facility]) Mild asthma without complication ([facility]) Non-ischemic cardiomyopathy ([facility]) Osteoporosis, post-menopausal ([facility]) Overactive bladder Stage 3b chronic kidney disease (HCC) ([facility]) CAD (coronary artery disease) ([facility]) Arthritis of left foot Arthritis of left [...] List Items Addressed This Visit Osteoporosis, post-menopausal ([facility]) - Primary Overview DEXA 04/16/2023: T-scores: L1-4= [...] daily with a meal; Certain patients require 8131-6146 international units daily and in patients deficient [...] bones. Studies show approximately 50% of [place] men and women are vitamin D deficient [...] follow up. Adriana Cruz D.O. Board Certified Edge Banding Off Bearer documented in this encounter [facility] 05-07-2023 Instructions Adriana Cruz DO - [...] daily with a meal; Certain patients require 2602-0608 international units daily and in patients deficient [...] bones. Studies show approximately 50% of [place] men and women are vitamin D deficient [...] in several forms. documented in this encounter [facility] 04-16-2023 Note CLINICAL HISTORY: axel ne [...] She understands and agrees with the plan. [facility] Other 10-30-2023 History of Present illness Narrative* [...] Rfl: Assessment/Plan 1. Coronary artery disease involving iroquois coronary artery of iroquois heart without angina pectoris Stable, I doubt progression based upon her symptoms (and lack thereof). 2. Essential hypertension, benign Well-controlled on current therapy 3. Mixed hyperlipidemia Well-controlled on current therapy 4. Nonischemic cardiomyopathy (CMS/HCC) No manifestations of heart failure detectable today. [facility]: 1(273) 993-355710-30-2023 Instructions* Patient Instructions* Dante Jacob MA - [...] [facility] Work Phone: 1(361) 971-726809-14-2023 Evaluation note* Encounter Date Diagnosis Assessment Notes Treatment Notes Treatment Clinical Notes 14 Sep, 2023 Arthritis of left knee (ICD-10 - M17.12) Patient was prepped and coritone was injected into the left knee under sterile conditions. Patient tolerated well with no adverse reactions. Activity as tolerate. [facility] Other 05-27-2023 Evaluation note* Encounter Date Diagnosis [...] Pt understood and agreed to treatment plan. [facility] Other 12-06-2022 NoteAdmission and Discharge Information Admitting Physician - Ilene KEN MD Consulting Physician - Jannet ERIC, Jay Ayala MD, Maribethdeborah Admitting Diagnoses: Discharge Diagnoses 1. Abdominal pain, [...] Cardiology consultation was placed at [facility] cardiology group Dr. Wasserman who patient typically [...] 73.9 % Lymph Auto - 12.3 % [place] Auto - 7.4 % Eos Auto - 3.6 % Basophil Auto - 2.8 % Neutro Absolute - 6.2 E9/L Lymph Absolute - 1.0 E9/L [place] Absolute - 0.6 E9/L Eos Absolute - [...] Est - 1+ U (more content not included)...[facility] FoundationComment on above: Result Comment: Electronically Signed By: Yolanda SALAS\.br\Date and Time Signed: 03/10/22 20:44 EST\.br\Electronically Co-Signed By: Pantera QUICK MD\.br\Date and Time Co-Signed: 03/11/2210:53 [id number] NoteMicrobiology PROCEDURE: Blood Culture Charcoal [R1] SOURCE: Blood BODY SITE: Arm R COLLECTED DATE/TIME: 02/24/2022 13:54 EST RECEIVED DATE/TIME: 02/24/2022 14:07 EST START DATE/TIME: 02/24/2022 14:07 EST FREE TEXT SOURCE: Jay Emery DO, DO, John FINAL REPORTS Final Report [] Verified Date/Time: 03/03/2022 18:00 EST No growth at 7 days. Performing Locations R1: This test was performed at: [facility], [address] [place] [address], KandbhCleveland Clinic FoundationComment on above:Performed By: #### [id number] #### [facility] [address] [place] [address] [phone] NoteMicrobiology PROCEDURE: Blood Culture Charcoal [R1] SOURCE: Blood BODY SITE: Arm L COLLECTED DATE/TIME: 02/24/2022 13:44 EST RECEIVED DATE/TIME: 02/24/2022 14:08 EST START DATE/TIME: 02/24/2022 14:08 EST FREE TEXT SOURCE: IV Jay Jarrett DO, DO, John FINAL REPORTS Final Report [] Verified Date/Time: 03/03/2022 18:00 EST No growth at 7 days. Performing Locations R1: This test was performed at: [facility], [address] [place] [address], [address] [place] [address], UavbdxCleveland Clinic FoundationComment on above:Performed By: #### [id number] ####[facility] [address] [place], [place] [phone] NoteHOSPITAL REGULATIONS: All Positive and Important Negative [...] a surgery isunclear to me. ALLERGIES:Percocet, Darvocet, [place], Oxycodone. PSYCHOSOCIAL HISTORY:Nonsmoker, nondrinker. FAMILY HISTORY:Diabetes, heart disease, lung cancer. REVIEW OF SYSTEMS:Otherwise negative, normal and noncontributory. PHYSICAL EXAMINATION: Vital signs: An ill appearing female. She is uncomfortable and moves slowly. Her blood pressure ztv045/66, pulse 64, respirations 16, temperature 36.8, weight [...] hospitalization. Jaime Wasserman M.D. young Dictated: 02/26/2022 [id number] Transcribed: 02/26/2022 cc:Adriana Cruz D.O.[facility] FoundationComment on above: Result Comment: Electronically Signed By: Lisy ERIC, Nick Fernandez\Date and Time Signed: 02/27/22 14:23 [id number] NotePT Evaluation done this date. Pt. with on AM-PAC this date. She is safe and independent with all functional activities with no further PT needs.[facility]11-22-2022 Note Chief Complaint Had hernia repair done [...] noncontributory. Scoring Walker Fall Risk Score: 45 (11/21/22) Walker Fall Risk Score: 45 (02/24/22) Physical [...] Lymph Auto: 12.3 % Low (02/24/22 13:54:00) [place] Auto: 7.4 % (02/24/22 13:54:00) Eos Auto: 3.6 % (02/24/22 13:54:00) Basophil Auto: 2.8 % High (02/24/22 13:54:00) Neutro Absolute: 6.2 E9/L (02/24/22 13:54:00) Lymph Absolute: 1 E9/L (02/24/22 13:54:00) [place] Absolute: 0.6 E9/L (02/24/22 13:54:00) Eos Absolute: [...] (02/24/22 14:55:00) UA C (more content not included)...[facility] FoundationComment on above: Result Comment: Electronically Signed By: Yolanda SALAS\.br\Date and Time Signed: 02/24/22 21:25 EST\.br\Electronically Co-Signed By: Yolanda SALAS\.br\Date and Time Co-Signed: 02/24/22 21:27 EST\.br\Electronically Co-Signed By: J Carlos KEN MD\.br\Date and Time Co-Signed: 02/25/22 07:18 [id number] Notegeneral surgery interval progress note: S.81 y/o [...] with the patient and her daughter, including [facility] Comment on above:Result Comment: Electronically Signed By: Jannet ERIC, Jay Downing\Date and Time Signed: 02/24/22 14:56 [id number] NoteHistory and Physical Update H&P Reviewed. Patient [...] mg= 1 mL, IV Push, q5min, PRN [place]field 325 mg-5 mg oral tablet, 1 tab(s), [...] disease: Father. Primary malignant neoplasm of lung: Sister.[facility]11-02-2022 [id number]:127[facility]10-17-2022 [id number]:[address] [place], [place] [address]10-14-2022 Evaluation + Plan noteExtracted from: Title:FRANCISCA POSTOP Author:Eliecer Pennington DO Date: 01/17/22 Plan Transfer/ Discharge: Patient can be discharged from PACU when criteria met. Condition good. Extracted from: Title:FRANCISCA PREOP ENDO NOTE Author:Waylon Pennington DO Date:01/17/22 Plan [place] Society of Anesthesiologists (ASA) physical status classification: [...] Date:02/03/2022 10:20:00 AM Scheduled Provider:Jay Power MD Location:[facility] Appointment Type:[facility] 30 [facility]10-14-2022 Hospital Discharge instructions Patient Education 01/17/2022 10:08:02 [...] what activities are safe for you. Take qoqf-sod-utbdshw and prescription medicines only as told by [...] 09/21/2012 Document Revised: 09/14/2018 Document Reviewed: 08/23/2018 Elsevier Patient Education 2020 [employer] 01/17/2022 10:08:02 Colonoscopy, Care After Surgery Salam (CUSTOM) Colonoscopy Care After Surgery Please read the instructions outlined below and refer to this sheet in the next few weeks. These discharge instructions provide you with general information on caring for yourself [facility] Your doctor may also give you specific [...] unsweetened, w/added ascorbic acid 1 cup 0.5 [place] 1 cup 0.7 Vegetables Cooked Green beans 1 cup 4.0 Carrots 1/2 cup sliced 2.3 Peas 1 cup 8.8 Potato (baked, with skin) 1 medium potato 3.8 Raw [place] (with peel) 1 cucumber 1.5 Lettuce 1 [...] 8.7 Peanuts 1/2 cup 7.9 Chart from [facility] 2013. SEEK IMMEDIATE MEDICAL CARE IF: [...] of Agriculture (USDA) National Nutrient Database at: http://www.Warply.usda.gov/fnic/foodcomp/search/ Created using data from the USDA National Nutrient Database for Standard Reference. Available at http://www.Warply.usda.gov/fnic/foodcomp/search/. Information adapted from: [facility] Patient Information 2010 Emergency [employer]. [employer] 2013 http://www.Woodpecker Education/contents/hnoregjmceln-sknupmd-smuyqc-the-basics Follow Up Care 01/10/2022 12:34:05 With:Jeferson COPE Address: [address] [place] [address]. [address] [place] [phone] Business (1) When: Unknown Comments:office will call for follow up [facility]10-07-2022 Hospital Discharge instructions Patient Education 01/10/2022 [...] or in yourlocal community. General instructions Take wagc-uuu-fkxxasm and prescription medicines only as told by [...] International Foundation for Functional Gastrointestinal Disorders: iffgd.org [place] [employer]: patients.gi.org Contact a health [...] restrictions, lifestyle changes, and skin care. Take pytp-bzl-pepsdft and prescription medicines only as told by [...] 03/04/2005 Document Revised: 08/05/2018 Document Reviewed: 08/05/2018 [employer] Patient Education 2020 When You Wish. 01/10/2022 10:49:37 Colonoscopy, Adult Colonoscopy, Adult A [...] including vitamins, herbs, eye drops, creams, and trby-icr-hzvpscl medicines. Any problems you or family members [...] 03/20/2001 Document Revised: 01/13/2018 Document Reviewed: 06/03/2016 [employer] Patient Education 2020 When You Wish. Follow Up Care 11/13/2021 10:56:24 With:Shi Urbano CNP Address: When:1 to [address] [facility] 05-26-2022 Evaluation note* Encounter [...] consider an injection in the left knee. [facility] Other 05-22-2022 Evaluation note* Encounter Date Diagnosis [...] Pt understands and agrees with the plan. [facility] Mosa Records Other Evaluation + Plan note Future Appointments Appointment Date:02/24/2022 12:30:00 PM Scheduled Provider: Location:[facility] Appointment Type:Surgery FT Future Scheduled Tests Laboratory* Fecal WBC Lactoferrin 01/10/22 * Giardia lamblia, Direct Detection EIA 01/10/22 * O & P Exam, Routine 01/10/22 * Clostridium difficile by PCR 01/10/22 * Enteric Panel by PCR 01/10/[address] [facility] Evaluation noteNo assessment information available [facility] Work Phone: Evaluation note* Diagnosis Coronary artery disease involving iroquois coronary artery of iroquois heart without angina pectoris- Primary Essential hypertension, benign Mixed hyperlipidemia Nonischemic cardiomyopathy (CMS/HCC) Other primary cardiomyopathies documented in this encounter [facility] Work Phone: Evaluation note* Diagnosis Osteoporosis, post-menopausal (CMS/HCC)- Primary Senile osteoporosis [facility] Diagnosis Onset Date Resolution Status Arthritis of left knee acute Primary osteoarthritis of left knee acute [facility] Work Phone: History general Narrative - Reported* Type Description Date Medical History high cholesterol Medical History high blood pressure Medical History ND Medical History asthma Surgical History right knee repacement Surgical History gall bladder Surgical History hysterectomy Surgical History carpal tunnel release Hospitalization History heart [facility] Mosa Records Other History of Present illness Narrative* Patient [...] other recommendation for changes in medical therapy. [facility] 250 DO Work Phone: History of Present [...] which appears to be adequate and appropriate. [place] [address] DO Work Phone: History of Present illness [...] which appears to be adequate and appropriate. [facility] 250 DO Work Phone: History of Present [...] no change and [facility] 250 DO Work Phone: Hospital course Narrative No data available for this section [facility] Hospital Discharge instructions Additional Instructions Increase your intake of fluids. Take Zofran as prescribed for nausea. Follow-up with your primary care physician for reevaluation in 3 to 5 days.[facility] Work Phone: Progress note No data available for this section [facility] Reason for referral (narrative)* Consultation (Routine) - Authorized Specialty Diagnoses / Procedures Referred By Silvano t Referred To Contact Cardiology Diagnoses Essential hypertension, benign Procedures Follow Up In Cardiology Nick Wasserman MD [address] [place] [address], [address] [address] Nick Wasserman MD [address] [place] [address] 2, [address] [address] Referral ID Status Reason Start Date Expiration Date V isits Requested Visits Authorized [id number] Authorized 02/02/2023 02/02/2024 1 1 [facility] Work Phone: Summary Purpose Family [...] Not Specified Unknown family medical history Unknown father Unknown Not Specified Unknown Advance Directives Advance Directive Response Recorded Date/ [...] Chief Complaint diarrhea, weakness Chief Complaint I42.8;E78.2 Chief Complaint op sp lt knee pain M17.12 - Unilateral primary osteoarthritis, left k Reason for Visit Arthritis of left kn ee Primary osteoarthritis of left knee Additional Source Comments INFORMATION SOURCE (unrecogn ized section and content) DATE CREATED AUTHOR 04/09/2019 [facility] DATE CREATED AUTHOR AUTHOR'S ORGANIZ ATION 11/20/2020 [facility] DATE CREATED AUTHOR AUTHOR'S ORGANIZ ATION 09/01/2021 [facility] DATE CREATED AUTHOR AUTHOR'S ORGANIZ ATION 10/25/2021 [facility] Specialist DATE CREATED AUTHOR AUTHOR'S ORGANIZ ATION 03/07/2022 [employer] DATE CREATED AUTHOR AUTHOR'S ORGANIZ ATION 03/11/[address] [facility] DATE CREATED AUTHOR AUTHOR'S ORGANIZ ATION 04/01/2022 [facility] DATE CREATED AUTHOR AUTHOR'S ORGANIZ ATION 02/03/2023 [facility] DATE CREATED AUTHOR AUTHOR'S ORGANIZ ATION 02/20/2023 [facility] DATE CREATED AUTHOR AUTHOR'S ORGANIZ ATION 03/21/2023 [facility] DATE CREATED AUTHOR AUTHOR'S ORGANIZ ATION 05/08/2023 [facility] dical Specialists EPIC REASON FOR [...] Active Misbah Greenwood DO Emergency Provider Active Spreader Operator Automatic Relationship Specialty Start Date End Date Adriana Cruz DO [address] [facility], [address] [address] PCP - General 09/17/20 Team Status: Inactive Member Role Status Dates Adriana Cruz DO Primary Care Provider Active Eliecer Renny [place] , HOST COORDINATOR-C Attending Provider Activ e Spreader Operator Automatic Relationship Specialty Start Date End Date Adriana Cruz DO [address] [facility] [address] [place] [address] PCP - [employer] 04/06/20 Adriana Cruz DO [address] [facility] [place] [address] PCP - General Internal Medicine 02/18/23 Krissy Velazquez MD [address] [place] [address] Consulting Physician Dermatology 12/03/22 Cristhian Bonner MD [address] [place] [address] Referring Physician Ophthalmology 12/03/22 Valentín Mills, DPM FACFAS [address] [place], [place] [id number] Consulting Physician Podiatry 12/08/22 Aye Wasserman MD [address] [place] [address] Consulting Physician Cardiology 12/08/22 Jeferson Cope MD [address] [place], [place] [phone] Consulting Physician Gastroenterology 12/08/22 Clement Madrid MD [address] [place] [address] Consulting Physician Orthopaedic Surgery 12/09/22 Team Status: Inactive Member Role Status Dates Adriana Cruz DO Primary Care Provider Active Start: June 01, 2023 End: June 01, 2023 Clement Madrid II, MD Attending Provider Active Start: June 01, 2023 End: June 01, 2023 Team Status: Active Member Role Status Dates Adriana DO Luis A Primary Care Provider Active Start: June 01, 2023 Clement Madrid II, MD Attending Provider Active Start: June 01, 2023 Goals (unrecognized section and content) Goals may [...] BE BASED ON THE PRIMARY CLINICAL RECORDS. [facility] [employer] provides no warranty or guarantee of the accuracy or completeness of information in this document.
== END 2023-07-06 10:29 | disposition home or self-care (01) ==
LOC: VC 10:28
PROVIDERS: PCP Radiology Diagnostic Radiology; Visit Provider Radiology Diagnostic Radiology
DX: I80.03 Phlebitis and thrombophlebitis of superficial vessels of lower extremities, bilateral (principal)
CPT/HCPCS: 93970; G0463

== ENCOUNTER 2023-07-17 07:57 | Outpatient (OUT) | payer MEDICARE, OTHER, SELFPAY ==
--- NOTE | 2023-07-17 07:58 | VEIN_ITS ---
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 The procedure was performed under sterile technique. The patient's leg was wrapped with Coban and postprocedural verbal and written instructions provided. Alexey Sosa RN was present and assisted. SCLEROSANT: 2mL 0.5% Polidocanol. VEIN(S) INJECTED: 29 veins in the left leg. VISUALIZATION: Ultrasound was not used to visualize the sclerosant. ANESTHESIA: Supercooled air. COMPLICATIONS: None. Electronically authenticated by: GABY MONTANEZ Date: 07/17/2023 10:14
--- OUTSIDE RECORDS SUMMARY | 2023-07-17 08:04 | XMS_ITS | CCD ---
Author Organization [facility] Care Team Providers Care Ship Boss Name Role Phone Adriana Cruz Unavailable [phone] Unavailable Unavailable Clement Madrid II Unavailable IsaacEliecer Unavailable DO Adriana Cruz Primary Care Provider DO Misbah [place] Emergency Provider Unavai ADRIANA Muñiz Primary Care Physician Shi Urbano Attending Unavailable Shi Urbano Admitting Unavailable Shi Urbano Attending Unavailable Shi Urbano Admitting Unavailable Jay Power Consulting Unavailable J Carlos KEN Attending Unavailable J Carlos KEN Admitting Unavailable Jay Power Consulting Unavailable Jay Power Consulting Unavailable Jay Power Consulting Unavailable MD Mary Ayala Consulting Unavailab Mary Cardona Consulting Unavailable Mary Ayala Consulting Unavailable Mary Ayala Consulting Unavailable Mary Ayala Consulting Unavailable TrabMary florez Consulting Unavailable Mary Ayala Consulting Unavailable Mary Ayala Consulting Unavailable Mary [...] Jeferson Attending Unavailable SALAM, Govea Admitting Unavailable Tirado-Taylor, Adriana Billie Primary Care Unava ilable Tirado-Taylor, Adriana Billie Primary Care Unava ilable McGuinn II, Nick Garduno Attending Unav ailable McGuinn II, Nick Garduno Attending Unav ailable Tirado-Taylor, Adriana Billie Primary Care Unava ilable McGuinn II, Nick Garduno Referring Unav ailable Tirado-Taylor, Adriana Billie Primary Care Unava ilable McGuinn II, Nick Garduno Referring Unav ailable McGuinn II, Nick Garduno Attending Unav ailable Tirado-Taylor, Adriana Billie Primary Care Unava ilable Tirado-Taylor, Adriana Billie Primary Care Unava ilable McGuinn II, Nick Garduno Attending Unav ailable Luis Nolasco Unavailable Savanna Cassidy Unavailable Tirado-Taylor DO, Adriana Billie Primary Care Provi octavio Tirado-Taylor, DO Adriana Primary Care Provider MD Nick Wasserman Attending Provider NICK WASSERMAN Attending Unavailable TIRADO-EMERY, ADRIANA BILLIE Primary Care Unava ilable Tirado-Taylor, DO Adriana Primary Care Provider MD Nick Wasserman Attending Provider LIT Gray Attending Provider Tirado-Taylor, Adriana Primary Care Unavailable Nick Wasserman Admitting Unavail able Nick Wasserman Attending Unavail able Eliecer Gray Attending Unavaila ble Tirado-Taylor, Adriana Primary Care Unavailable Eliecer Gray Admitting Unavaila ble Tirado-Taylor DO, Adriana D Unavailable Kirssy Velazquez MD Unavailable Ha ERIC, Cristhian Jenelle Unavailable Valentín Choudhary DPM Unavailable Lisy ERIC, Aye Unavailable Jeferson Cope MD Unavailable Clement Madrid MD Unavailable Tirado-Taylor DOAdriana Primary Care Provider Tirado-Taylor DO Adriana Primary Care Provider MD Clement Madrid II Attending Provider ADRIANA CRUZ Attending Unavailab le TIRADO-EMERYLYNNRA Katherine Referring Unavailab le TIRADO-EMERY, ADRIANA Katherine Referring Unavailab le DIDIONIRMA L Attending Unavailable TIRADO-EMERY ADRIANA Katherine Referring Unavailab le TIRADO-EMERY, ADRIANA Katherine Attending Unavailab le TIRADO-EMERY ADRIANA Katherine Referring Unavailab le TAMIEERKASIE Attending Unavailable VALENTÍN MILLS Attending Unavailable Allergies Allergy Classification Reported Allergen(s) Allergy Type Date of Onset Reaction(s) Facility (5 sources) HYDROcodone; Translations: [hydrocodone] Drug Allergy 2 [facility] (6 sources) oxyCODONE; Translations: [oxyCODONE] Drug Allergy 2 [facility] (2 sources) Acetaminophen / oxyCODONE; Translations: [acetaminophen-ox ycodone] Drug Allergy Nausea (finding) [facility] Comment on above: All pain meds EXCEPT Morphine. Patient is able to take Morphone. (1 source) Acetaminophen / HYDROcodone; Translations: [Proctor] Drug Allergy [facility] (1 source) Acetaminophen / oxyCODONE; Translations: [Percocet] Drug Allergy [facility] Repository (1 source) Darvocet-N 100; Translations: [Darvocet-N 100] Propensity to adverse reactions (disorder) [facility]ository (2 sources) Acetaminophen / oxyCODONE Drug Allergy 3 Nausea Only [facility] (2 sources) oxybutynin Drug Allergy 9 Other [facility] Healthcare Work Phone: (1 source) pain medication- intolerable Allergy to substance 4 Unknown Reaction [facility] Medications Current Medications Medication Drug Class(es) Dates [...] 1 EA, Refill(s) 0, Prior to colonoscopy., Aethon #24, 150, cm, 01/10/22 10:48:00 EDT, Height/Length [...] [Coronary atherosclerosis of unspecified type of vessel, [place] or graft] Onset: 3 02-02-2023 Chronic Disorders [...] of micturition; Translations: [Frequency of micturition] Onset: Urinary tract infections (1 source) Acute cystitis [...] Interpretation Reference Range Facility BI MAMMOGRAM SCREENING TOMDARIN RAYon 04-16-2023 BI MAMMOGRAM SCREENING TOMOSYNTHESIS BILATERAL This [...] IS VERY IMPORTANT TO YOUR HEALTH. 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 Person calling: caregiver: Alanis Return call to: self Medical Records/Insurance Card scanned into [employer]: Yes Comments: This was Routed Incorrectly Allergies [...] Status:Closed by ALANIS CASTILLO on 02/20/23 Normal [facility] Urinalysis - DIPSTICKon 11-0 Appearance (U) cloudy [employer] Other Bilirubin Ql (U) Negative [employer] Other Color (U) yellow [employer] Other Glucose Ql (U) Negative [employer] Other Hemoglobin Ql (U) small [employer] Other Ketones Ql (U) Negative [employer] Other Leukocyte esterase Test strip Ql (U) large [employer] Other Nitrite Ql (U) Positive [employer] Other pH (U) 5.0 [pH] [employer] Other Protein Ql (U) trace [employer] Other Specific gravity (U) [Rel density] 1.025 [employer] Other Urobilinogen (U) [Mass/Vol] 0.2 mg/dL [employer] Other Urinalysis - DIPSTICK Nor [employer] Other Urine Cultureon 02-11-2023 Bacteria identified Cx Nom (U) ORGANISM: Escherichia coli (O:ESCCOL) [place] Count >100,000 Aerobic DYLAN Charge (NMIC56) SUSCEPTIBILITY [...] RESISTANT TO ALL B-LACTAM DRUGS. PERFORMED BY: [place] [address] PATHOLOGIST MOBILE GAME ENGINEER RENAN CAIN M.D. [facility] Comment on above: Performed By: #### C UU #### [facility] [address] [place] [address] [place] Basic Metabolic Panelon 10-3 0-2022 Anion gap [Moles/Vol] 11.0 mmol/L Normal 6.0-15.0 [facility] Comment on above: Performed By: #### L IPID, BMP, CBC #### [facility] [address] [place] [address] [place] Calcium [Mass/Vol] 10.1 mg/dL Normal 8.6-10.3 [facility] Comment on above: Performed By: #### L IPID, BMP, CBC #### [facility] [address] [place] [address] [place] Chloride [Moles/Vol] 107 mmol/L Normal 98-[address] [facility] Comment on above: Performed By: #### L IPID, BMP, CBC #### [place] [address] [place] CO2 [Moles/Vol] 26.4 mmol/L Normal 21.0-31.0 [facility] [place] Comment on above: Performed By: #### L IPID, BMP, CBC #### [place] [address] [place] Creatinine [Mass/Vol] 1.34 mg/dL High 0.60-1.20 [facility] Comment on above: Performed By: #### L IPID, BMP, CBC #### [facility] [address] [place] [address] [place] GFR/1.73 sq M.predicted MDRD (S/P/Bld) [Vol rate/Area] 40.085 mL/min/{1.73_m2} [facility] Comment on above: Performed By: #### L IPID, BMP, CBC #### [place] [address] [place] Glucose [Mass/Vol] 91 mg/dL Normal 70-100 [facility] Comment on above: Result Comment: [facility] Glucose Reference Range is dependent on time and content of last meal. Glucose of more than 200 mg/dL in a nonstressed, ambulatory subject supports the diagnosis of Diabetes Mellitus. ADA recommended reference range Performed By: #### L IPID, BMP, CBC #### [facility] [address] Potassium [Moles/Vol] 4.4 mmol/L Normal 3.5-5.1 [facility] Comment on above: Performed By: #### L IPID, BMP, CBC #### [facility] [address] [place] [address] [place] Sodium [Moles/Vol] 140 mmol/L Normal 136-145 [facility] Comment on above: Performed By: #### L IPID, BMP, CBC #### [facility] [address] [place] [address] [place] Urea nitrogen [Mass/Vol] 23 mg/dL Normal 7-25 [facility] Comment on above: Performed By: #### L IPID, BMP, CBC #### [facility] [address] [place] [address] [place] Basophils Auto (Bld) [#/Vol] Ordered By: Nick Wasserman on 02-02-2023 Basophils (Bld) [#/Vol] 0.0 10*3/uL 0.0-0.2 [facility] Basophils/100 WBC Auto (Bld) Ordered By: Nick Wasserman on 02-02-2023 Basophils/100 WBC (Bld) 0.4 % . [facility] Calcium [Mass/volume] in Ser um or PlasmaOrdered By: Nick Wasserman on 02-02-2023 Calcium [Mass/Vol] 10.1 mg/dL 8.6-10.3 [facility] Carbon dioxide, total [Moles /volume] in Serum or PlasmaOrdered By: Nick Wasserman on 02-02-2023 CO2 [Moles/Vol] 26.4 mmol/L 21.0-31.0 [facility] [place] Chloride [Moles/volume] in S kobi or PlasmaOrdered By: Nick Wasserman on 02-02-2023 Chloride [Moles/Vol] 107 mmol/L 98-[address] [facility] Cholesterol [Mass/volume] in Serum or PlasmaOrdered By: Nick Wasserman on 02-02-2023 Cholesterol [Mass/Vol] 170 mg/dL 140-200 [facility] Comment on above: Chol less than 200 m g/dl low riskChol 201-239 mg/dl borderline riskChol 240 mg/dl and greater high risk Cholesterol in LDL Calc [Mas s/Vol]Ordered By: Nick Wasserman on 02-02-2023 Cholesterol in LDL [Mass/Vol] 89 mg/dL 0-100 [facility] Comment on above: LDL ATP III CLASSIFI CATIONLDL less than 100 mg/dL OptimalLDL 100-129 mg/dL Near or above optimalLDL 130-159 mg/dL Borderline highLDL 160-189 mg/dL HighLDL greater than 189 mg/dL Very high Cholesterol in VLDL Calc [Ma ss/Vol]Ordered By: Nick Wasserman on 02-02-2023 Cholesterol in VLDL [Mass/Vol] 25 mg/dL [facility] Complete Blood Count Auto Di ffon 02-02-2023 Basophils (Bld) [#/Vol] 0.0 10*3/uL Normal 0.0-0.2 [facility] Comment on above: Result Comment: PERF ORMED BY: [place] [address] PATHOLOGIST MOBILE GAME ENGINEER RNEAN CAIN M.D. Performed By: #### L IPID, BMP, CBC #### [facility] [address] [place] [address] [place] Basophils/100 WBC (Bld) 0.4 % Normal . [facility] Comment on above: Performed By: #### L IPID, BMP, CBC #### [facility] [address] [place] [address] [place] Eosinophils (Bld) [#/Vol] 0.3 10*3/uL Normal 0.0-0.45 [facility] Comment on above: Performed By: #### L IPID, BMP, CBC #### [facility] [address] [place] [address] Eosinophils/100 WBC (Bld) 3.4 % Normal . [facility] Comment on above: Performed By: #### L IPID BMP, CBC #### [address] Erythrocyte distribution width (RBC) [Ratio] 13.0 % Normal 11.9-15.3 [facility] Comment on above: Performed By: #### L IPID BMP, CBC #### [address] Hematocrit (Bld) [Volume fraction] 37.3 % Normal 34.0-46.4 [facility] Comment on above: Performed By: #### L IPID BMP, CBC #### [address] Hemoglobin (Bld) [Mass/Vol] 12.5 g/dL Normal 11.8-15.4 [facility] Comment on above: Performed By: #### L IPID BMP, CBC #### [address] Lymphocytes (Bld) [#/Vol] 1.4 10*3/uL Normal 1.00-4.8 [facility] Comment on above: Performed By: #### L IPID BMP, CBC #### [address] Lymphocytes/100 WBC (Bld) 16.6 % Normal . [facility] Comment on above: Performed By: #### L IPID BMP, CBC #### [place] [address] [place] MCH (RBC) [Entitic mass] 30.9 pg Normal 24.7-34.3 [facility] Comment on above: Performed By: #### L IPID BMP, CBC #### [address] MCV (RBC) [Entitic vol] 91.8 fL Normal 80-100 [facility] Comment on above: Performed By: #### L IPID BMP, CBC #### [facility] [address] Mean Corpuscular HGB Conc 33.6 g/dL Normal 32.0-35.0 [facility] Comment on above: Performed By: #### L IPID, BMP, CBC #### [facility] [address] [place] [address] [place] Monocytes (Bld) [#/Vol] 0.8 10*3/uL Normal 0.0-0.8 [facility] Comment on above: Performed By: #### L IPID, BMP, CBC #### [facility] [address] [place] [address] [place] Monocytes/100 WBC (Bld) 9.0 % Normal . [facility] Comment on above: Performed By: #### L IPID, BMP, CBC #### [address] Neutrophils (Bld) [#/Vol] 6.1 10*3/uL Normal 1.8-7.7 [facility] Comment on above: Performed By: #### L IPID, BMP, CBC #### [place] [address] [place] Neutrophils/100 WBC (Bld) 70.6 % Normal . [facility] Comment on above: Performed By: #### L IPID, BMP, CBC #### [place] [address] [place] NRBC% 0.0 /100{WBC} Normal 0-0.5 [facility] Comment on above: Performed By: #### L IPID, BMP, CBC #### [facility] [address] [place] [address] [place] Platelet mean volume (Bld) [Entitic vol] 8.2 fL Normal 6.3-10.7 [facility] Comment on above: Performed By: #### L IPID, BMP, CBC #### [facility] [address] [place] [address] [place] Platelets (Bld) [#/Vol] 296 10*3/uL Normal 150-450 [facility] Comment on above: Performed By: #### L IPID, BMP, CBC #### [facility] [address] RBC (Bld) [#/Vol] 4.07 10*6/uL Normal 3.60-5.00 [facility] Comment on above: Performed By: #### L IPID, BMP, CBC #### [facility] [address] WBC (Bld) [#/Vol] 8.6 10*3/uL Normal 3.8-11.6 [facility] Comment on above: Performed By: #### L IPID, BMP, CBC #### [facility] [address] Creatinine [Mass/volume] in Serum or PlasmaOrdered By: Nick Wasserman on 02-02-2023 Creatinine [Mass/Vol] 1.34 mg/dL 0.60-1.20 [facility] Eosinophils Auto (Bld) [#/Vo l]Ordered By: Nick Wasserman on 02-02-2023 Eosinophils (Bld) [#/Vol] 0.3 10*3/uL 0.0-0.45 [facility] Eosinophils/100 WBC Auto (Bl d)Ordered By: Nick Wasserman on 02-02-2023 Eosinophils/100 WBC (Bld) 3.4 % . [facility] Erythrocyte distribution wid th Auto (RBC) [Ratio]Ordered By: Nick Wasserman on 02-02-2023 Erythrocyte distribution width (RBC) [Ratio] 13.0 % 11.9-15.3 [facility] Glucose [Mass/volume] in Ser um or PlasmaOrdered By: Nick Wasserman on 02-02-2023 Glucose [Mass/Vol] 91 mg/dL 70-100 [facility] Comment on above: ADA recommended refe rence rangeRandom Glucose Reference Range is dependent on time and content of last meal. Glucose of more than 200 mg/dL in a nonstressed, ambulatory subject supports the diagnosis of Diabetes Mellitus. Hematocrit Auto (Bld) [Volum e fraction]Ordered By: Nick Wasserman on 10-30-2023 Hematocrit (Bld) [Volume fraction] 37.3 % 34.0-46.4 [facility] Hemoglobin [Mass/volume] in BloodOrdered By: Nick Wasserman on 02-02-2023 Hemoglobin (Bld) [Mass/Vol] 12.5 g/dL 11.8-15.4 [facility] Leukocytes [#/volume] correc sergey for nucleated erythrocytes in Blood by Automated counOrdered By: Nick Wasserman on 02-02-2023 WBC corrected for nucl RBC Auto (Bld) [#/Vol] 8.6 10*3/uL 3.8-11.6 [facility] Lipid Panelon 02-02-2023 Cholesterol [Mass/Vol] 170 mg/dL Normal 140-200 [facility] Comment on above: Result Comment: Chol less than 200 mg/dl low risk Chol 201-239 mg/dl borderline risk Chol 240 mg/dl and greater high risk Performed By: #### L IPNGOZI BMP, CBC #### [facility] [address] [place] [address] [place] Cholesterol in HDL [Mass/Vol] 56 mg/dL Normal 23-92 [facility] Comment on above: Result Comment: HDL CHOL ATP-III CLASSIFICATION Cardiovascular Risk HDL > or equal to 60 mg/dL LOW HDL < 40 mg/dL HIGH Performed By: #### L IPID BMP, CBC #### [facility] [address] [place] [address] [place] Cholesterol.total/Cho lesterol in HDL [Mass ratio] 3.0 {ratio} Normal <5.0 [facility] Comment on above: Result Comment: PERF ORMED BY: [facility] [address] [place] [address] PATHOLOGIST MOBILE GAME ENGINEER RENAN CAIN M.D. Performed By: #### L IPID BMP, CBC #### [facility] [address] [place] [id number] [place] LDL Cholesterol,Calculate d 89 mg/dL Normal 0-100 [facility] Comment on above: Result Comment: LDL ATP III CLASSIFICATION LDL less than 100 mg/dL Optimal LDL 100-129 mg/dL Near or above optimal LDL 130-159 mg/dL Borderline high LDL 160-189 mg/dL High LDL greater than 189 mg/dL Very high Performed By: #### L IPID, BMP, CBC #### [facility] [address] Triglyceride w/Reflex 127 mg/dL Normal 0-149 [facility] Comment on above: Result Comment: TRIG ATP III CLASSIFICATION TRIG less than 150 mg/dL Normal TRIG 150-199 mg/dL Borderline high TRIG 200-500 mg/dL High TRIG greater than 500 mg/dL Very high Standard traceable to the Center for Disease Conrtrol and Prevention (CDC) test method. Performed By: #### L IPID, BMP, CBC #### [facility] [address] VLDL CHOLESTEROL 25 mg/dL Normal [facility] [place] Comment on above: Performed By: #### L IPID, BMP, CBC #### [facility] [address] Lymphocytes Auto (Bld) [#/Vo l]Ordered By: Nick Wasserman on 02-02-2023 Lymphocytes (Bld) [#/Vol] 1.4 10*3/uL 1.00-4.8 [facility] Lymphocytes/100 WBC Auto (Bl d)Ordered By: Nick Wasserman on 02-02-2023 Lymphocytes/100 WBC (Bld) 16.6 % . [facility] MCH Auto (RBC) [Entitic mass ]Ordered By: Nick Wasserman on 02-02-2023 MCH (RBC) [Entitic mass] 30.9 pg 24.7-34.3 [facility] MCHC Auto (RBC) [Mass/Vol]Or dered By: Nick Wasserman on 02-02-2023 MCHC (RBC) [Mass/Vol] 33.6 g/dL 32.0-35.0 [facility] MCV Auto (RBC) [Entitic vol] Ordered By: Nick Wasserman on 02-02-2023 MCV (RBC) [Entitic vol] 91.8 fL 80-100 [facility] Monocytes Auto (Bld) [#/Vol] Ordered By: Nick Wasserman on 02-02-2023 Monocytes (Bld) [#/Vol] 0.8 10*3/uL 0.0-0.8 [facility] Monocytes/100 WBC Auto (Bld) Ordered By: Nick Wasserman on 02-02-2023 Monocytes/100 WBC (Bld) 9.0 % . [facility] Neutrophils Auto (Bld) [#/Vo l]Ordered By: Nick Wasserman on 02-02-2023 Neutrophils (Bld) [#/Vol] 6.1 10*3/uL 1.8-7.7 [facility] Neutrophils/100 WBC Auto (Bl d)Ordered By: Nick Wasserman on 02-02-2023 Neutrophils/100 WBC (Bld) 70.6 % . [facility] No Panel InformationOrdered By: Nick Wasserman on 02-02-2023 Estimated GFR (CKD-EPI) 40.085 mL/Min [facility] Creatinine Clearance (Chem N/A [facility] Nucleated erythrocytes [Pres ence] in Blood by Automated countOrdered By: Nick Wasserman on 02-02-2023 Nucleated RBC Auto Ql (Bld) 0.0 /100{WBC} 0-0.5 [facility] Platelet mean volume Auto (B ld) [Entitic vol]Ordered By: Nick Wasesrman on 02-02-2023 Platelet mean volume (Bld) [Entitic vol] 8.2 fL 6.3-10.7 [facility] Platelets Auto (Bld) [#/Vol] Ordered By: Nick Wasserman on 02-02-2023 Platelets (Bld) [#/Vol] 296 10*3/uL 150-450 [facility] Potassium [Moles/volume] in Serum or PlasmaOrdered By: Nick Wasserman on 02-02-2023 Potassium [Moles/Vol] 4.4 mmol/L 3.5-5.1 [facility] RBC Auto (Bld) [#/Vol]Ordere d By: Nick Wasserman on 02-02-2023 RBC (Bld) [#/Vol] 4.07 10*6/uL 3.60-5.00 [facility] [place] [facility] Serum or plasma anion gap de terminationOrdered By: Nick Wasserman on 02-02-2023 Anion gap [Moles/Vol] 11.0 mmol/L 6.0-15.0 [facility] Serum or plasma high density lipoprotein (HDL) cholesterol measurementOrdered By: Nick Wasserman on 02-02-2023 Cholesterol in HDL [Mass/Vol] 56 mg/dL 23- [facility] Comment on above: HDL CHOL ATP-III CLA SSIFICATION Cardiovascular RiskHDL > or equal to 60 mg/dL LOWHDL < 40 mg/dL HIGH Serum or plasma total choles terol/high density lipoprotein (HDL) cholesterol mass ratOrdered By: Nick Wasserman on 02-02-2023 Cholesterol.total/Cho lesterol in HDL [Mass ratio] 3.0 {ratio} <5.0 [facility] Sodium [Moles/volume] in Ser um or PlasmaOrdered By: Nick Wasserman on 02-02-2023 Sodium [Moles/Vol] 140 mmol/L 136-145 [facility] Triglyceride [Mass/volume] i n Serum or PlasmaOrdered By: Nick Wasserman on 02-02-2023 Triglyceride [Mass/Vol] 127 mg/dL 0-149 [facility] Comment on above: TRIG ATP III CLASSIF ICATIONTRIG less than 150 mg/dL NormalTRIG 150-199 mg/dL Borderline highTRIG 200-500 mg/dL High TRIG greater than 500 mg/dL Very highStandard traceable to the Center for Disease Conrtrol and Prevention (CDC) test method. Urea nitrogen [Mass/volume] in Serum or PlasmaOrdered By: Nick Wasserman on 02-02-2023 Urea nitrogen [Mass/Vol] 23 mg/dL 7-25 [facility] WBC Auto (Bld) [#/Vol]Ordere d By: Nick Wasserman on 02-02-2023 WBC (Bld) [#/Vol] 8.6 10*3/uL 3.8-11.6 [facility] Coding Summary.on 03-11-2022 Coding Summary. [id number] Gh0bWw +PGhlYWQ+QT6WBVLdR34wbNYij V1OG6eADQ3CXQQQMFSLVV1ILB0 uhRE1XOnoA4UbxrFb EhpjnMHmJL83QWo4TNI1tBmpBJ lllE0fiGQuE9g5YgDmSG82bO53 EWkeEQEtIfI2EaTurrljfTOb C9lzDgPdmIXlPgz+PHRhYmxlIH pxKSLoVTigTPCiVrOgkGgeDF3l Op2mRLFgUGOiyPwbxQWbAuYv x3wsIQYxCDysTV3nwNgdA5MkeR U2WWRtz7c6Hn35gYF+PHRkIHN0 mQwiIQsfs505UoKig7ekHLB4 gHFyXIxbBIO4H11ae1Z3YPNmIB RfFJX2gOB4gN3eiMvgcxvzH5Aq uCOnEpR2UNM5qIQtgF9frKod plmhvE6lMwa+G58AGZ0VOGLCWQ 8EWdp1V8AgWbctvHV+QB43YWRb LR05dKIpbMOtm6imzXp8TjNu UOIuNEG7jMaqOJfae2JrAQLoY0 8koDDpw4Q4LXPzaStisJIdToTa bTX2dR1lXYtkizobi7himyeo Elrjw9kmye32rA17V53xADvgFA TiMZP5CLBqYYPobCdldn7ugB5j Ii8+HXhkt3swh0faiRa6IfUd HNCjamDbyCpsZZF4g8UkYy70U9 UdjXyhg2RhUbc5uq47oBRaf1G7 tZU7YAyyQNBcwT9uEMpwNrB1 HEGyDyYctL31fHLkELxyJm0ebD rclOcbCI1mBGHbvzszGVBgmN7l GORbbOUpsWafKB5gPJAegypw u246AsQtDAK6DCKzsVWvD1BzrG 8uElArMXYrRNQfR5OcgHUnGSpr W016DGfpLvM0CYCvafHcD1Ms NGIksBoySkH8o0R5Ym0Ey8Vijs ekKVR2WJxtDQRoIiJ6WkDvOoF9 H1DoGts6GABbeVxfQL5zB5Np YCVlvzjzjykyiHU4PYIuYHTaqL 74kINfWRfnUw7yf7X1k496DRLf ZWJwxP30Ew5pwNjeREMksOEM jP4zxcwtk3ewjkgdSeXgLGWmWR t1QAb9XOPmrYwlOyRoJVG7LfY2 DOD9qKEdwU0mlEcikmlvoF3o Oyc+X66glN8fZCW7ZUO3zwhvXC CchtObMI85CE76M0HhVhwriYBu bGU+WQSbqlUtiNmfZU3oTzYy g7lhy6HfZZtfX2IcKYNsAKrrSf n8VVPxWCT8mLC9fU8jEKZfCXse u5Y4oNN3T6UucoCduh0cn9tw KXJiLXjaY10ryFOht7I8OKLfnR M0YVHjfRfnCtQubF75Ufh+PGNv qQnpu7SqGlykk3uqi4cjlCx5 EpStYYSdkeUvgQhgVMI8i4UtTb 99L05qEHgpIKQzYEAvSBWfJPGt qXpfpx0wlP8lBt0+PGNvbCB3 gJT5uN7oRSGoWaJ1QIokS428Oi YazMLoQwvmx4kfz8xenGo1HkLd OZNpbqJmsXtkLOJ9e5PtQy47 P35cVSntKIQkOEUrHEGmCHZfyL yvwi5zkM5pKm0+HQ4xq8zhrk34 bZ89qBY+JYQmYJB5oAnzBSvi VAUizJ2gCVbcBvU6SEDjEfRhgO 20tTKpDXkpUf3tlQowyAehNW1w JJOmzibll828SqQnj0iaUFTj tNNfMAjjCPK5V39iq8X1OWRrBS PrLUH7nWE4dS5irYsltzycsHXs dRacmfAdlOsgIWwvMVnsK973 IHRvcDsnPlBhdGllbnQgTmFtZT k1B3OtDln5PZXduPukBC4wrHUp WUdxGn6fyYdnmSeaCO6hZPCp ekacw973UgSdh5rsKHDwcUDeRE xeBZX8M19mh8J6GQYlFQDnNNB4 qPW3kT5tcSikwimfrXYovZfu tmZawBkxQQjqQBccZ294DFSxoW doSwRwbbYgNKBubPO1OB79MN87 wVPrb6W1cFJ7W7DmVRCokvdh kjzitXG0RVJcMYElgK81Yf0isL fvGv3aKCUnTVR4BTCvaVNzW8Eq wS7yAkXiCSNiNALvV2AniSXd NGyoJ390ROglJeY2SDNkehSyB5 XyVSXzhIgaPtO5i3O7Mt5DL6G8 [id number] EAAdrabiqecowEO7ZOOfUEHlfW 70Cs4fwPhiRd0vRNBtSGN0TAOm eGSyW8HufV3zCzGcJNSdNSWa P2DtcRMeQUnkZ901QSsgKoB9NZ RptkDhM3HcKCMimMppXpE4i3J0 Bq6QMYm4KC07ES03qEBwo0Y0 cSI4R8KwYHBxzrswthqfrEL9RH FrNEGifO90Hz3eyAfoBq0hYTFq ASQ3RSEdjPBzN6VhdC7lQnKz QJOlTDWyA8ZkrNKoGOmwA294QJ ldGbJ2POHzrrIdU4MgFIAihUdk NdH0j9L3Xr2OGKQcTL28XSA6 bNF5SV32AK37H6TzIzbzuMOzzT U+PHRhYmxlIHdpZHRoPScxMDAl YlQweRypVU6xYp7pIJYyFMBm gTbiyPHnWpQpm6atDHKrBLhcEK 5zcWhjM6UvjOS4DCDcc2z0Kb25 I93nC8JjkWC+YHEnfOT4iTB7 pP4xCtCnXaQ4ZCtgE955DdUjjT SnNdgss4npz7wckWs8YrL2DTGo yzSyqQccJUB8c5HzWe42E06x IHdpZHRoPSIxNSUiIHZhbGlnbj 6qgH9yCs2+GQPgmIF5nWK5eX9e GxBfLlT7CWnoM667EhPwgZSh Cikbw4bec1yxyGi5YeYyUARaav FjyAkvYRO0o8FjLi31W6TinZyk s0RgAwk3rg22qHWow0K7aZU3 U5YuYVKekmlypBBuuCknOC8vOJ SmergvFMLjoB9sWMSbO1y0MwYg ScB7OMpnH2AmofZ7SYUacXBk QIofGKB1I17ot6H6LQFjCBYiMO X6nHM0fX8ipBjkucigiJGtaWry hgDoxDpePFsfVFzuY022PXQq sPshLEBltZ6jJXLygVOtjTvqWW 0aPITwspnzEzOWM5LRA3PwHFSV PFAYY5nYKX05QA22kXGbo4O3 cXE2A3UaERUtxerpxzewxLL6SW GlSDGaoF60sAHmTKzoXs5po9G1 o504FNEeMYSivW19Wb9zfIhr GXBjsLWEgE9bmpmku7lpgauzYc AoSDOcYCe9ULh3CLZnuAwxWnVu OSS0YdA3OVW2pTHcqQ7ymSvs hnxsgT5lWmx+TCBsOICnNDo1Xs wvdGQ+TYDjFVB3wJkbRAdeVUIj sT9rNRFqC2v9KwUpQmT8KHdi O2EqCBYcfsifNv64iR0cHqDvGn E4UTfzU9ZkolP8VPTpeBUaITwj DWF5T47dm0I1MFYiROQwUHI4 yUI2yZ4hxEsvodovmXVwmZtshh DqwYxuUMmwOCowG523IONljYyh Gif7EHipXMIpZR02XZ43mTUb h4G1qIW6O7LuYFYwesrlyznarR I9WQVuPUFysR53eINvWQkuSh9p x2K1y031WOBxXISiyC61Cf5w nJaiRZOeiOZPrP3tvkdjt6gakx rxLeHgTKEdKKd4FAt8CYRhvAbx DzWgTEF6AeZ1ZAJ6pBRebH4g jChyyvkrmB1tGxs+RmVtYWxlPC 70NZ28dSUya1A8dAS3H3JzNKMl btpvojeviSF2ZBGkEGIclV70 pPZxNTkvXp7ct4V4d549IVEmSL LstY42Aw0fyYufIDMwpKYHpO5v gefsc4cyvyimJmFzTBPbUQk0 OVw5WNDveHqmWaEaBLS1InW4BV S5zRWtpM7ggHrrjwgazW4wMbf+ Y3ZgSZO3SEKoi897R1FpXimi dHI+LN92HBYwGS27zDZxwLCca5 nfdZd1LmFwZHTvVNN1iPzuMIyl q5ChPVFwL18ruVFee7W7MHNd eBfpkOIdYvSpgLC6mN0gKMnzmx utq4pzomkdJwiap8vqch17cC05 O94lUArgOZUwXPVcGMMxBXOb fXgpqr6zoV5qGq2+TIUsjXV2kH O6iB7oDaHzTgM6LCxhY618TrUf lWLzLkxpl8xta7lbeJv3FaJk WNSflhDfsMvzHNK0h7OoUi60G0 9sIHdpZHRoPSIyMCUiIHZhbGln ly3wuL7sJg9+FZ9lc5lypd92 dV73cRZ+HQEjUOT4gUfiWOeuHN HqlV8wPFvcXrN1GAVhQuEyaR76 wAHiMCdzMy1eoInvjJoaYP3h ABKjrsiis232IjMwx5jmDNDjpA ZbDWyzRFW4X33rr8W0MXXkDXFm MJG1sQH4yH2dzUyhgrccnUSf yGiakkGwoZwpEVcfDVvaM080RN IumEieLbMvuEPtS6pyobKCNK2o OjwvdGQ+DQVkCQW7oGesOBsm UFAumS2eUBSsZ8g3ChBnAlN3IP dxU2FlddB6ARXbdCNzPTXalNIA nZ4kdgpfw7mpnvmnKxMxSJNu SDj8SJb7AWYxbJdtEnMtNAR5Sv I2POF6aBQnwH6vmSecgrlteA9t Oyc+RklOOjwvdGQ+PHRkIHN0 fOarGGzqIPSleV7zECLvB6d6Xb WcHsZ9USgtC9FvohG8DJEsdRPx WKBaoYMEgY6ihwjwe2biopmf OcQqYZCoNSj7XSu4NLCeyFizMu JwGPH7VhI4DAM1dFVdgJ5wvKab eldtwF5sIiy+TVJOOjwvdGQ+ XYVcVZA4jVgfLOkzHEWktG7iUJ TnM9f9XzQlTbN5EUsaH1DmsvU8 UBBekVBtSPJuaRRBlK1oyylm r7nmzjclPzPnVJFoFRy6LKk3MC YcxLypAqNaZSP6VyD9ZVE5qSGx hW5iaRuhxpbgfI4mLhh+UGF5 VRK1MG25JG16H2JeOwtssHKvgE U+PHRhYmxlIHdpZHRoPScxMDAl LuOluPulPF2xJy4oTAYmSTNa bGxh (more content not included)... Normal [facility] Office Visit (Cardiology)on 03-06-2022 Follow-up visit [...] negative for complaint. Vitals Vital Signs Recorded: 01Ofj8059 03:48PMRecorded: 00Riu1917 03:25PM Aqwjttcq934, LUE, Lwthsoa073, LUE, Sitting Emwfukzdk72, LUE, Xavkxdm24, LUE, Sitting Heart Rate66, L Radial Height4 ft 9 in Kgiktv644 lb BMI Muxbljbqjc74.37 kg/m2 BSA Calculated1.38 Tobacco Useb) No Falls [...] Mar 06 2022 4:39PM EST (Author) Normal [facility] Tobacco Screening.on Fall risk assessment a) No falls within the last year [facility] y 250 DO Work Phone: Tobacco use status CPHS b) No [facility] y 250 DO Work Phone: IntraOperative Documentson 1 05-04-2021 IntraOperative Documents [id number]:127 Normal [facility] General Surgery Office/Clini c Noteon 03-03-2022 [...] after patient or guardian consented to allow [employer] to record this visit. ANA M physical education specialist and provider reviewed before signing. ANA [...] list Allergies Percocet (Nausea) Darvocet-N 100 (vomiting) Proctor (Vomiting) oxyCODONE (Vo (more content not included)... Normal [facility] Comment on above: Result Comment: Elec [...] Locations R1: This test was performed at: [facility], [address] [place] [address], [address] , [place], Normal [facility] Comment on above: Performed By: #### 2 [id number], [id number] #### [facility] Laboratory [address] [place] [id number] Coding Summary.on 02-25-2022 Coding Summary. CD:[id number] Gh0bWw +PGhlYWQ+XX9MWPJtL75usTSan G7EY2dILT6RNDXOILIPTT6YOB6 obZI9HRyeK2IkxzCe BjokcDVfDH17SMz4ONS4gPfrXE axlL9bkMKoT7e0ZeHdTW74bU69 UMphVWKtGhX5HbBppkozlDCi E5zmHbQtjCGzZpa+PHRhYmxlIH tcYJVpMCmyPXLgQaQczWytLN7c Pg9kOPFmOJSroAsugJSoMiZc a9jlWEVoOZooZT7ggJeaX8IccL B7SDIfa9w5Zo48fNF+PHRkIHN0 oGvkKRnmr329AzQgx1miSZX1 pKUlUXnsBJF2K38hq8S9INCvCK FdGPA5pLK4cZ1xePkbvhggP8Vi mYHaZaD4VAB5cEEcbP7huPyg lnbjoC4hHel+V61LZB4HBPCCNO 4ZCyc9V7TaLbydeHH+TK31THWz VC90rBFkpKQpz3wwrRf9MwHa CPTiKAI3oCkwYZejd1ExYFHeN7 9htVWvx0N6LSRpbGknnVQrTsIx pNZ9xG1iIKfuyvkfe0dygbfp Jozzp7eepe57wG35Y43wQHqpWK MwMDM2XPXfELKvjGdlqs2zdR8q Ii8+IIreu1eof7yghIr4UwCl UXJubxNojYctZQH5n1WkNp32X6 ClaUdfo0JwBge9fe39yJZdu6M4 hMR1ZCnuPYYywD1kWSfeVyJ2 NUAmXbYkbZ43iXSmBUheWo3adT dsyMktPN8sMPJheibaCFBoqU0d GXBfjCCkmBjsRB3bOSJnkntc c442HkZwLWL3YGXwrOQoM9EltF 0qXjKgYFEsBHBqS2LybCGyDAzh T574XDizSxE7FGYqbiTtB3Od XUHjvYhzKtS0u4S6Tc3Wy8Qzaf vaNCU7BWtcGBMuGfTtEpZkLsK4 N6TtChn4NIAhhXkzGC5uT8Tu MOLpflwaxqsypFZ0VHNzBGRteU 49eWIcKKqdGp8nm4S2y983AEAc QVAmcE97Bl2kcRsfHNOpgBJM xE5evtpgs5pdofosHdYnILOsOS o8CLn3BQHhyYmnUtWcTMT1LnU7 XCC0sLXwrR5pxPnapedzjB7g Oyc+B16jhR3fYIJ1ZDS2tspkHB SzbbUnDU12PB06T2LyDneikAUp bGU+ZXCeknImwYeeTF8cEhCg d2ulp8SpSEpiS5ExSPLyVVsnPa q6KGAtZPI9kPD8oC3eFMGaWQkt e2M2gMA0I0SasiFaso7jr0sc LHPyUCsbA76odNQup2D0MUEijQ Z6QWIqmKsuOsGctL10Fgd+PGNv fBhru8MuTmbuc9yxq6ngsHh6 DfZtEZHyldCenBscWZL4a8PcNc 81V93dVWdwBYFkPGOxTUSzSZOn aKkmxv8giJ9mZx2+PGNvbCB3 mTL3hC6dARLnKgM5FBrbY767Oa KumYAaDvznt8xbq9mfxMd1UmGt NDZgveKezHirPLJ4j9KgCa13 X19jKIeiEDNoEWUiJDYrESIrlD qeqq2keA9pXq6+AY1je9fffp63 pO00hXA+SQIiFZT3bKnmFFwz FEQwkJ1iHJzoQhU4ROOaFsDlfD 43pDGbYQcsYa3ifWvudAezMH9b XKQvdbnxa823EeDqg8fwBLQk eJVcAEqdQDK2Y58cd5P7WWLvEK HfCOX9oJL5oN1jiGkpjimvvNJc pXbuuxXkqXfhQKqmPJlaJ571 IHRvcDsnPlBhdGllbnQgTmFtZT y0H1XhIse7GIYaqOzpFX3geMCe DJrsAe4pvGwrzPjjIR2cMUJs rvhux625CiAru0ytTSSkmYFsRM wjBMY9R93cn5O9BFTqHCUcJOB4 hET7dM3zjDbbzjurgEWuwZaw dlJanUsnFBmjRNdnQ352EMWgfY kwKpNoyjBcPRZtsZN7TH34NG18 yBZuh7V7kEP3Y7LaWXLphayq irqflEQ2PKAyBGYepT66Sz6uoL lfFs8oVNObBIV3XLOekUKpM1Vt aD8gGeQgTHMsCKJjX5GmbKOx SVuaC901SOtnDyP0SNHnxsVdV3 GvCKZszKpwQxZ0g6B4Jz5JC8Y7 JM77HO75bHQwn1Z2jNS4R5Gv PLDfrltzgvlkcIZ2OWIyTHOzlC 69Nj5tzYrpRj9wGRZsKZC5EXWh mGXqN4ZetU1rOqLqSIIoHYMi O2ZtfMFcMXvbV413UQpfJsX5SP EuubIzM5GyZMQteMlzFcJ4v6O8 Fz3UUKx2EZ30HZ98kCBdj5L8 oKX0P9LtFPWrasvenwaqeOY4TP NwXTNqiK88Vh8mfKafAc5cIVRh MWN0ZRIwkCMlJ7YgbS5nVdBs DYErGGEfT0KtmRTeMQpyY796OC qyJhT2ICLcvpLsJ3OvWSXxhPeq YmQ8b6Q9Dr3QPKTyYF00YWN1 vYS2VA39WC12S0FeAshmfTIiiG U+PHRhYmxlIHdpZHRoPScxMDAl MrLhiRalRU4eYg7gJQCfHLWz lVfnrDZpRhFka4yyFGGxPGmsBW 3bqWdkW8ZwuJI8QMOkm9y1Kk23 R70pS9ThsGA+DIIifBX7mPS6 vO0hWgPdDtN0CPfjT712WuYurR IsTrsme2oog7ecnIj8UpL2BKXk evNswVtrTBP8d8XnOq02R52v IHdpZHRoPSIxNSUiIHZhbGlnbj 1maD1aTl3+BWUfyZE8fKK9jH0y ScRdIlZ0YDtqW218GtVugWJt Pagcx5uzf7qjtMz3PfGuFXYpgb UcaKvdSWC2b6YtGx31O7YlcSwe b3PzZql7ht68qYJof0S4cPW6 Q0MwSJPpjyruoOGqyYriNB8zEC AagmeyIHNeuQ2aYTIcH8l2FmOe KcR2IHxwT0LmxiB3WPHzcBNu VAvjAOX0Z11ud7J4AMOuZQSrCS N0nSM3sN4sqKnculpghUBjbOdz dbWbuCjhLEhnGNqtF531PGPf xQqaFIVnyJ3rJCWjfBCqdGxiLF 1dBAOfjshrFlQSM0YKJ6XiPHWU YGTGT4zLVH18ZJ95vNFfu2N0 fIH4D1XpXAZfqzqsqdrgqFM5IG ApRNWdbW74mWRfDOcnRd6hn4N2 d991VQJpCRVhiH60Vg6svFtv RGHnwHPDjL0ibzjdf6qatqdwZu BjQZMeCNy6LSy4XRRscRrxUzYk LYW8IlL6RPQ9lKPdpL7nbAeu dmjmvG4cFep+QDLlIYUnUOn6Co wvdGQ+ZLTbXZA4mNuzDLaoKUHm lK6dAPEyD7h6BfQlWwW5MRnz B0CcXXTluequUe91dX4mBvFuNl R6HVebQ4UkzoD5KJJyjJRlUNte CVB0M33xt4G1OPOrADCrTJO5 hFE7mF9ziBesnwhkmIVowWcbuu AeuYqyLXmmKEmxC467GUQegXoz Sab0VEboPVEpUO79HT58hCDm j1X9cTJ3K7XyKAHkbuqzhvohyH M8HQMoOGTmjD86lPLvNDipHw5l e2O8e348VOBzOFSusM34Mr2q kJksTAYyqIPOnI4eoprbv7tlwc czApEcRXJeFVe0HGm3LUOfwJdr CwIwGCH7McN3OUU2mQOwwQ0c hZivqqwznJ3gMii+RmVtYWxlPC 88QP58pENbu4J6sBJ4T3GcGXNn fwtqkxuoaQY5FEKqNZIhzB77 kJZoDPllGj5tn7F9g677EVIaCK FtjE81Zh4bwVvlPZQvdFCFyE7g kixpe8mwhtbrAfZrKZGtITn5 CYn5SEYpkOivJcNgEQW7RbZ5SQ Q7yQXhiS1ilHbwmxkdwO7jBhy+ HE0pxPkiqY2aqD6QDC7aMVFk fYTYfFLuZGT9SR93DL05F2WrFe wvdGFibGU+PHRhYmxlIHdpZHRo QXqwJBUxYoEgiOzcRG5dKs0e YAIsQPFxkCrglHFkHsHed3grWS HdAJlhGK1rjDlsY3JlfVJ6BEZd z2f0Bd41L88nU4WrjBK+PGNv mGK3zFF0sN1jUnZqXxU7URexJ5 80EaEaiHIsLylcl6kwq8ctxVo1 GsKsOIJlpnRpsBiyBTW8n3Ni Oz25W41fVMijOAUcKVHxNUCsIP RjuGnxmh1etZ8tHb4+PGNvbCB3 hQP6iL5oIoEwCsZ8JAlwE998 TrWnaHIoZnbaT25hC1VkwLW+PH JgSgd2NIDvkNcdRD1wdYMxPLrg Cw6oKGH0TuSpCyBgDKsbH7Gl APJaugeljhkerLS4GQSvMXYssV 58Tz9qtShuCo8mLLTzUGT5VDKa aIRaN9RnwF9dCmQqCISmZZJv U6PyaDSiTDwrT882JSirKmW1XO XifgWmI8WvYRRouRpuZcM1g1T4 Fy2MfYdasYTzOC8oUtPyLKf6 C0LpNai7CRUakDlsGY2xhCWtOT urUn6uqQwfuPsdGE8sNGBlsbjy l669DeFgr7hvELIhpLTjYBwa FMR6I87os0P8VFDfKJCwUCS1tN E0qU4kiSqsjvxnxVKlzHbhyuDj pGbhLWltSJlxS516OWIebAcb HcWPQoz6E8WfUiu2GJXqkOeuDF 7biJRkTVpuMa3jfZwwdTxgUV1c NHYwwfhes649VrYel4geBUGq tIRvQMjaJGT1T38xl0M8SSAnJJ UkBTI4iKL2lH2vpYelyewizPJl aJmqdiAzxTvxEOuoZSesJ824 TPPkkVtiJp5KWmz9D3TeJlt3OL TqfPueML5ibBStYJjsRm8vtCfv mAkvKU3jHUNeezlmy108DtQi g4rcURWixJCxEJgkEHB9B51mk3 A9OZEiHXJxOMA7jLP9cZ6jnZzp bjogbGVmdDsgdmVydGljYWwt GGuoW454AQGgwFlkYtTcmOIzUn wvdGQ+ID94is81H8WrJjdsAgg3 AZPwOJU5eAX2fS8xVIVdIDeh c3R5 (more content not included)... Normal [facility] Consultation Noteon 02-26-20 Consultation Note Patient: [...] NO WORK UP NEEDED Normal [facility] Comment on above: Result Comment: Elec tronically Signed By: Lisy ERIC, Nick Cheema\.br\Date and Time Signed: 02/25/22 14:40 EST Discharge Instructionson Discharge Instructions [id number]:127 Normal [facility] Inpatient Clinical Summaryon 02-25-2022 Inpatient Clinical Summary [place] [id number] Clinical Summary Person Information: Name: ADINA PERRY Age: 81 Years : 1940 Sex: Female PCP: ADRIANA CRUZ DO Marital Status: Race: White Ethnicity: Non- or Language: Guyanese Visit Id: Visit Reason: Fatigue; Post surgical problem; ABD PAIN, ABNORMAL CARDIAC ENZYME LEVEL Speciality: Acuity: Enc Type: Observation Med Service: Medical Arrival: 02/24/2022 13:07:19 Discharge: Dispo Type: Admitted as IP to this [facility] Address: [address] [place] [address] [address] [place] [id number] Provider Notes: Diagnosis: 1:Abdominal pain; 2:S/P hernia [...] Percocet (Nausea) Darvocet-N 100 (vomiting) oxyCODONE (Vomiting) Proctor (Vomiting) Measurements: Height: 146 cm Weight: 49.7 [...] Physician: J Carlos KEN MD Consulting Physician: Jay Power MD, MD, Mary Referring Physician: Follow up: With: Address: When: ADRIANA TIRADOYazNELSON [address], [address] [place] [address] [facility] () 03/10/2022 11:00 AM Comments: Appointment will be with the ACCOUNTING TEACHER With: Address: When: Jay Power 03/03/2022 9:00 AM Comments: Call for followup appointment 2-3 weeks or if already scheduled keep appt. Type Location Start Finish State Post Op 15 [facility] 03/03/2022 9:00 AM 03/03/2022 9:20 AM Confirmed Patient Education Information: Weakness; Abdominal Pain, Adult, Lujk-vu-Gqdl Normal [facility] Inpatient Patient Summaryon 02-25-2022 Inpatient Patient [...] EST With: Jannet ERIC, Jay Lock Where: [facility] General Surgery [facility] Inpatient Patient Summary ADINA PERRY :1940 [...] Test Results None Pharmacy Information [facility] Previously Scheduled Follow-Up Appointments Thursday 9:00 AM EST With: Jannet ERIC, Jay Lock Where: [facility] General Surgery [facility] Inpatient Patient Summary [place] [address] Patient Discharge Instructions PERSON INFORMATION Name: ADINA PERRY Date of : 1940 Current Date: 02/25/2022 15:24:21 PHYSICIANS Admitting Physician: MELI ERIC [facility] Primary Care Physician: ADRIANA CRUZ DO PCP [...] None Follow up: With: Address: When: ADRIANA NANCY [address] [place] [address], [place] [address] [facility] () 03/10/2022 11:00 AM Comments: Appointment will be with the ACCOUNTING TEACHER With: Address: When: Jay Jannet 03/03/2022 9:00 AM Comments: Call for followup [...] (more content not included)... Normal [facility] Interdisciplinary Note - Reji e Manageron 02-25-2022 Interdisciplinary Note - Rotary Envelope Machine Operator CRM to room to discuss DC [...] see reports. Patient was rounded on by [facility], CRM waiting for updates. Patient is getting IVF. She is pending consults of gen sx, and cardiology. Patient was evaluated by PT/OT and they have no recs. Patient denied need for HH or PT. Patient provided CRM contact information, white board updated. Patient anticipated DC later today or 02/26. CRM following Normal [facility] Comment on above: Result Comment: Elec [...] safely and independently once medically stable. Normal [facility] Main OR Intraoperative Recor don 02-25-2022 Main OR Intraoperative Record Normal [facility] Monitor Recordon 02-25-2022 Monitor Record [id number]:127 Normal [facility] Monitor Record [id number]#[id number]:127 Normal [facility] Postoperative Documentson Postoperative Documents [id number]:127 Normal [facility] Troponin 9 Hr.on 02-25-2022 Troponin I.cardiac [Mass/Vol] 90.10 pg/mL Abnormal 10.10-27.1 0 [facility] Comment on above: Result Comment: Crit [...] Olivia, November 2017) Performed By: #### 1 [id number] #### [facility] Laboratory [address] [place] [address] Auto Diffon 02-24-2022 Basophils/100 WBC (Bld) 2.8 % High 0.0-2.0 [facility] Comment on above: Order Comment: Order Added by Discern Expert. Performed By: #### 1 [id number], 0222536, 1022168, 1803008, 37811326, 3511458, 4346387, 7478854 ####[facility] [address] [place] [address] Basophils/Leukocytes Auto (Bld) [Pure # fraction] 0.2 E9/L Normal 0.0-0.2 [facility] Comment on above: Order Comment: Order Added by Discern Expert. Performed By: #### 1 8101792, 2809130, 2404073, 2712612, 18031099, 3671850, 7560784, 3060660 ####[place] [address] [place] [address] Eosinophils/100 WBC (Bld) 3.6 % Normal 0.0-8.0 [facility] Comment on above: Order Comment: Order Added by Discern Expert. Performed By: #### 1 8239200, 3574669, 2131959, 1002315, 28615654, 0371482, 8664990, 9217968 ####[address] [address] Eosinophils/Leukocyte s Auto (Bld) [Pure # fraction] 0.3 E9/L Normal 0.0-0.5 [facility] Comment on above: Order Comment: Order Added by Ramírez Expert. Performed By: #### 1 7989629, 2733814, 4603304, 9182425, 30019771, 5612469, 6559489, 3475725 ####[address] [address] Lymphocytes/100 WBC (Bld) 12.3 % Low 14.0-50.0 [facility] Comment on above: Order Comment: Order Added by Ramírez Expert. Performed By: #### 1 7887174, 1235295, 7346890, 8280351, 22736040, 8203842, 7460789, 4459706 ####[address] [address] Lymphocytes/Leukocyte s Auto (Bld) [Pure # fraction] 1.0 E9/L Normal 1.0-4.0 [facility] Comment on above: Order Comment: Order Added by Discern Expert. Performed By: #### 1 9803658, 6390815, 7595630, 3771302, 72578831, 0260469, 3658491, 6221301 ####[address] [address] Monocytes/100 WBC (Bld) 7.4 % Normal 4.0-14.0 [facility] Comment on above: Order Comment: Order Added by Ramírez Expert. Performed By: #### 1 0914196, 0342470, 6140856, 4203468, 39444631, 5481550, 4763847, 1063649 ####[facility] [address] [place] [address] Monocytes/Leukocytes Auto (Bld) [Pure # fraction] 0.6 E9/L Normal 0.2-1.0 [facility] Comment on above: Order Comment: Order Added by Discern Expert. Performed By: #### 1 4224605, 4256921, 0315095, 0958477, 99778318, 7388423, 1986059, 3659661 ####[address] [place] [address] Neutrophils/100 WBC (Bld) 73.9 % Normal 36.0-75.0 [facility] Comment on above: Order Comment: Order Added by Discern Expert. Performed By: #### 1 1408564, 1860130, 7638949, 8771285, 25458347, 1981393, 7439922, 5503048 ####[address] [place] [address] Neutrophils/Leukocyte s Auto (Bld) [Pure # fraction] 6.2 E9/L Normal 2.0-7.5 [facility] Comment on above: Order Comment: Order Added by Discern Expert. Performed By: #### 1 3232029, 2998160, 9711248, 2167404, 51113935, 2647242, 4725230, 5443976 ####[facility] [address] [place] [address] BMPon 02-24-2022 Creatinine [Mass/Vol] 1.1 mg/dL Normal 0.5-1.3 [facility] Comment on above: Performed By: #### 1 6422792, 7064477, 7764176, 6586019, 26365753, 8232623, 6273268, 9301051 ####[facility] [address] [place] [address] Urea nitrogen [Mass/Vol] 18 mg/dL Normal -21 [facility] Comment on above: Performed By: #### 1 8084166, 4273325, 8327959, 9208995, 90669029, 5359276, 1575365, 7078434 ####[facility] [address] [place] [address] Urea nitrogen/Creatinine [Mass ratio] 16 No Units Normal 10-20 [facility] Comment on above: Performed By: #### 1 1337203, 8115736, 2115329, 4213555, 22769636, 7496166, 9681137, 8638687 ####[facility] [address] [place] [address] Anion gap [Moles/Vol] 16 mmol/L Normal 6-16 [facility] Comment on above: Performed By: #### 1 8602966, 8027254, 9016567, 5298509, 88010645, 7708092, 8547222, 4346071 ####[facility] [address] [place] [address] Calcium [Mass/Vol] 10.5 mg/dL Normal 8.9-11.1 [facility] Comment on above: Performed By: #### 1 9415096, 2642179, 7807097, 3668951, 38125747, 0954090, 7580449, 5581510 ####[facility] [address] [place] [address] Chloride [Moles/Vol] 97 mmol/L Low 101-111 [facility] Comment on above: Performed By: #### 1 6201352, 1046179, 2624978, 2366021, 50215842, 2368922, 4020706, 1329206 ####[facility] [address] [place] [address] CO2 [Moles/Vol] 28 mmol/L Normal 21-31 [facility] Comment on above: Performed By: #### 1 2812407, 5661939, 7676603, 6629136, 77973590, 6105554, 7876450, 5141924 ####[facility] [address] [place] [address] Glucose [Mass/Vol] 137 mg/dL Normal 55-199 [facility] Comment on above: Result Comment: If t his glucose result represents a fasting glucose, interpretation should refer to the following reference range: 55-99 mg/dL Performed By: #### 1 1325034, 1867689, 1812492, 4207100, 37398323, 1611909, 1518953, 3359843 ####[facility] [address] [place] [address] Potassium [Moles/Vol] 3.5 mmol/L Normal 3.5-5.3 [facility] Comment on above: Performed By: #### 1 7979224, 9029464, 2812268, 6293426, 65557213, 6168598, 5283697, 9025452 ####[facility] [address] [place] [address] Sodium [Moles/Vol] 137 mmol/L Normal 135-145 [facility] Comment on above: Performed By: #### 1 5959647, 2426294, 7409176, 6040536, 65602022, 0986478, 9570135, 5173310 ####[facility] [address] [place] [address] CBC w/ Auto Diffon Erythrocyte distribution width (RBC) [Ratio] 13.4 % Normal 10.9-14.2 [facility] Comment on above: Performed By: #### 1 2011769, 1746431, 6520266, 0142806, 26074967, 3499250, 4458636, 4540121 ####[facility] [address] [place] [address] Hematocrit (Bld) [Volume fraction] 39.5 % Normal 34.0-46.0 [facility] Comment on above: Performed By: #### 1 2546898, 3300330, 3799654, 9091426, 27580796, 3729758, 7668933, 0009213 ####[facility] [address] [place] [address] Hemoglobin (Bld) [Mass/Vol] 14.1 g/dL Normal 12.0-16.0 [facility] Comment on above: Performed By: #### 1 1708828, 9062945, 7554246, 1671172, 77664520, 3330522, 2430297, 2913172 ####[facility] [address] [place] [address] MCH (RBC) [Entitic mass] 31.2 pg Normal 27.0-34.0 [facility] Comment on above: Performed By: #### 1 4406573, 1319279, 0820896, 5356905, 01321532, 3165450, 8194130, 6930608 ####[address] [place] [address] MCHC (RBC) [Mass/Vol] 35.7 g/dL Normal 31.4-36.0 [facility] Comment on above: Performed By: #### 1 8890023, 4146932, 7654126, 3358688, 44113464, 7539577, 2937154, 5302454 ####[address] [address] MCV (RBC) [Entitic vol] 87.4 fL Normal 80.0-100.0 [facility] Comment on above: Performed By: #### 1 9918554, 2426942, 5718407, 4054658, 90623828, 6595562, 4307558, 3080886 ####[address] [address] Platelet mean volume (Bld) [Entitic vol] 8.3 fL Normal 6.4-10.8 [facility] Comment on above: Performed By: #### 1 4363060, 4690508, 3275187, 5470767, 66697905, 4221782, 1583727, 3921783 ####[address] [address] Platelets (Bld) [#/Vol] 295.0 E9/L Normal 150.0-500. 0 [facility] Comment on above: Performed By: #### 1 8624924, 3816928, 2835192, 8256424, 56611211, 5694244, 2682769, 8919844 ####[facility] [address] [place] [address] RBC (Bld) [#/Vol] 4.5 E12/L Normal 4.3-5.9 [facility] Comment on above: Performed By: #### 1 6610880, 4129662, 5085775, 5521582, 93388645, 3820871, 2572426, 8607513 ####[facility] [address] [place] [address] WBC corrected for nucl RBC Auto (Bld) [#/Vol] 8.4 E9/L Normal 4.0-11.0 [facility] Comment on above: Performed By: #### 1 8906778, 2411671, 4650511, 1208668, 41586028, 4485711, 5027629, 2352432 ####[facility] [address] [place] [address] CT Abdomen/Pelvis w/ Contras ton 02-24-2022 CT [...] 79 Rectal Contrast Given? No Normal [facility] CTA Cheston 02-24-2022 CTA Chest Exam [...] (more content not included)... Normal [facility] Consent for Treatmenton 02-05 Consent for Treatment [id number] Normal [facility] ED Clinical Summaryon 2021 ED Clinical Summary (Inserted Image. Elvia ble to display) [place] [address] ED Clinical Summary Person Information Name: ADINA PERRY/[facility] Age: 81 Years : 1940 Sex: Female Language: Guyanese PCP: ADRIANA CRUZ DO Marital Status: Visit Id: Visit Reason: Fatigue; Post surgical problem; [id number] PAIN Speciality: Acuity: 2 Enc Type: Emergency Med Service: Emergency Arrival: 02/24/2022 13:07:19 Discharge: LOS: 000 05:49 Checkin: 02/24/2022 13:07:19 Checkout: 02/24/2022 18:56:59 Dispo Type: Admitted as IP to this [facility] EVENTS: Event Name Event Status Request [...] 02/24/2022 18:56:59 02/24/2022 18:56:59 02/24/2022 18:56:59 ADDRESS: [address] [place] [address] DR PULLIAM MS [id number] PHYS DOC NOTES: MEDICAL INFORMATION: Prescriptions Given: [...] Abnormal cardiac enzyme level Normal [facility] ED Note-Physicianon 02-25-20 ED Note-Physician Basic [...] is known to Dr. Wasserman from [facility] cardiology. She also stated that [...] (more content not included)... Normal [facility] Comment on above: Result Comment: Elec tronically Signed By: Jay Emery DO\.br\Date and Time Signed: 02/24/22 17:27 EST ED Patient Education Noteon 02-24-2022 ED Patient Education Note Normal [facility] ED Patient Summaryon 022 ED Patient Summary (Inserted Image. Elvia ble to display) [place] [id number] Patient Discharge Instructions Person Information Name: ADINA PERRY Age: 81 Years Arrival Date: 02/24/2022 13:07:19 Discharge Diagnosis: Abdominal pain; Abnormal cardiac enzyme level Primary Care Physician: ADRIANA CRUZ DO Provider Information Primary Provider: Jay Emery DO Advanced Longshore Equipment Operator:None The exam and treatment you received in the Emergency Department were for an urgent problem and are not intended as complete care. It is important that you follow up with a doctor, nurse practitioner, or physician?s historian research assistant for ongoing care. If your symptoms [...] opioids can be used to help relieve qkmueoez-yv-frkrtk pain and are often prescribed following a [...] be struggling with addiction, tell your health intensive care unit nurse and ask for guidance or call [facility]?S National Helpline at 9-391-727-RRPR. r Source: [place] Department of Health and Human Services/Center for Disease Control & Prevention [facility] Medications Given: Med (more content not included)... Normal [facility] Hep Func Panelon 02-24-2022 Albumin [Mass/Vol] 4.4 g/dL Normal 3.3-5.0 [facility] Comment on above: Performed By: #### 1 8528491, 4837420, 5557249, 4829108, 77038487, 8559751, 6781705, 8084925 ####[facility] [address] [place] [address] Albumin/Globulin (S) [Mass conc ratio] 1.3 Normal 1.1-2.2 [facility] Comment on above: Performed By: #### 1 8312724, 0309470, 1452569, 0861645, 32143806, 4729897, 2978830, 3226304 ####[facility] [address] [place] [address] ALP [Catalytic activity/Vol] 72 Int._Unit/L Normal 21-98 [facility] Comment on above: Performed By: #### 1 9174317, 2283969, 0445499, 4107675, 21971525, 8045988, 9307688, 6218125 ####[place] [address] [place] [address] ALT No additional P-5'-P [Catalytic activity/Vol] 16 Int._Unit/L Normal 6-46 [facility] Comment on above: Performed By: #### 1 2248866, 2161185, 4434408, 8214003, 75711292, 8832306, 3420420, 1176127 ####[facility] [address] [place] 35[address] AST [Catalytic activity/Vol] 18 Int._Unit/L Normal 5-43 [facility] Comment on above: Performed By: #### 1 4600746, 2642145, 2998164, 1402879, 07445994, 6519448, 6276315, 5899952 ####[place] [address] Bilirubin [Mass/Vol] 0.7 mg/dL Normal 0.0-1.1 [facility] Comment on above: Performed By: #### 1 0208075, 4953370, 4576081, 1223785, 39779286, 3286223, 5021702, 2822046 ####[place] 4[address]357 Bilirubin.direct [Mass/Vol] 0.1 mg/dL Normal 0.1-0.4 [facility] Comment on above: Performed By: #### 1 1173436, 2728851, 9040468, 4247420, 08125773, 8232371, 5244917, 5079587 ####[place] [address] [place] 35[address] Bilirubin.indirect [Mass or moles/Vol] 0.6 mg/dL Normal 0.1-0.9 [facility] Comment on above: Performed By: #### 1 1729901, 9670159, 1845445, 6929048, 88662594, 0294270, 0049843, 3628332 ####[address] [place] [address] Globulin (S) [Mass/Vol] 3.5 g/dL Normal 1.4-4.0 [facility] Comment on above: Performed By: #### 1 3101044, 2693016, 8064160, 7995585, 24651940, 1318104, 4304139, 0722317 ####[facility] [address] [place] [address] Protein [Mass/Vol] 7.9 g/dL High 6.0-7.8 [facility] Comment on above: Performed By: #### 1 2080850, 1409448, 4772255, 1520091, 85709964, 5008021, 9601437, 0764053 ####[facility] [address] [place] [address] Lactic Acidon 02-24-2022 Lactate [Mass/Vol] 1.5 mmol/L Normal 0.5-2.2 [facility] Comment on above: Performed By: #### 1 4496342, 8644474, 9290354, 4984244, 99788469, 6683692, 5354229, 9663897 ####[facility] [address] [place] [address] Lipase Levelon 02-24-2022 Lipase [Catalytic activity/Vol] 43 U/L Normal 13-58 [facility] Comment on above: Performed By: #### 1 9632242, 5720201, 5753646, 3071516, 65268650, 4824106, 0452023, 5019721 ####[facility] [address] [place] [address] Monitor Recordon 02-24-2022 Monitor Record [id number]#[id number]:127 Normal [facility] Monitor Record [id number]#[id number]:127 Normal [facility] Operative Reporton Operative Report SURGERY DATE: 11/16/ 2022 BUNDLE TIER AND LABELER: Kylie Costa, Certified Ski Patroller INDICATION FOR SURGERY: The patient is a 81 year old female with previous abdominal hysterectomy performed in an open fashion in the presenting with a 2 cm incisional hernia that is symptomatic seen on computerized tomography scan from [facility]. She is here today for robotic [...] condition. Jay Power M.D. lr Dictated: 02/19/2022 [id number] Transcribed: 02/19/2022 Normal [facility] Comment on above: Result Comment: Elec tronically Signed By: Jannet ERIC, Jay Lock\.br\Date and Time Signed: 02/24/22 07:55 EST Troponinon 02-24-2022 Troponin I.cardiac [Mass/Vol] 105.90 pg/mL Abnormal 10.10-27.1 0 [facility] Comment on above: Result Comment: Crit [...] Fantasma Olivia, November 2017) Performed By: #### 2 157642 #### [facility] [address] [place] [address] Troponin 0 Hr.on 02-24-2022 Troponin I.cardiac [Mass/Vol] 96.00 pg/mL Abnormal 10.10-27.1 0 [facility] Comment on above: Result Comment: Crit [...] conjunction with clinical conditions of myocardial infarction. (Galenea High Sensitivity Troponin I Instructions For Use, [employer], November 2017) Performed By: #### 1 9862435, 9277066, 4872991, 4778430, 82666355, 7637490, 3481118, 5331092 ####[facility] [address] [place] [address] Troponin 6 Hr.on 02-24-2022 Troponin I.cardiac [Mass/Vol] 105.10 pg/mL Abnormal 10.10-27.1 0 [facility] Comment on above: Result Comment: Crit [...] conjunction with clinical conditions of myocardial infarction. (Galenea High Sensitivity Troponin I Instructions For Use, [employer], November 2017) Performed By: #### 1 3424009 #### [facility] [address] [place] [address] UA With Cult Reflexon 2021 Bilirubin Ql (U) Negative Normal Negative [facility] Comment on above: Performed By: #### 2 836623, 23870065 #### [facility] [address] [place] [address] Clarity (U) CLEAR Normal Clear [facility] Comment on above: Performed By: #### 2 736533, 17141183 #### [facility] [address] [place] [address] Color (U) YELLOW Normal Yellow [facility] Comment on above: Performed By: #### 2 740537, 30015418 #### [facility] [address] [place] [address] Epithelial cells.squamous LM.HPF (Urine sed) [#/Area] 0-2 Normal 0-2 [facility] Comment on above: Performed By: #### 2 295094, 29555132 #### [facility] [address] [place] [address] Glucose Test strip (U) [Mass/Vol] Negative Normal Negative [facility] Comment on above: Performed By: #### 2 003906, 75874003 #### [facility] [address] [place] [address] Hemoglobin Ql (U) Negative Normal Negative [facility] Comment on above: Performed By: #### 2 871068, 41814953 #### [facility] [address] [place] [address] Ketones (U) [Mass/Vol] Negative Normal Negative [facility] Comment on above: Performed By: #### 2 007418, 76249384 #### [facility] [address] [place] [address] [place].plasma/Lithiu m.RBC (Bld) [Mass ratio] 0-3 Normal 0-3 [facility] Comment on above: Performed By: #### 2 859973, 08672370 #### [facility] [address] [place] [address] Nitrite Ql (U) Negative Normal Negative [facility] Comment on above: Performed By: #### 2 786741, 97193334 #### [facility] [address] [place] [address] pH (U) 7.0 [pH] Invalid Interpretation Code 5.0-9.0 [facility] Comment on above: Performed By: #### 2 841837, 44092915 #### [facility] [address] [place] [address] Protein (U) [Mass/Vol] Negative Normal Negative [facility] Comment on above: Performed By: #### 2 964765, 50273207 #### [facility] [address] [place] [address] Specific gravity (U) [Rel density] 1.010 Invalid Interpretation Code 1.005-1.03 0 [facility] Comment on above: Performed By: #### 2 216062, 06473391 #### [facility] [address] [place] [address] Type of Urine collection method Clean Catch Normal [facility] Comment on above: Performed By: #### 2 688367, 74820917 #### [facility] [address] [place] 59[address]657 Urobilinogen Qn (U) 0.2 {Egmma'U}/dL Normal 0.0-1.0 [facility] Comment on above: Performed By: #### 2 816124, 65713286 #### [facility] [address] [place] [address] WBC Auto Ql (U) 1+ Abnormal Negative [facility] Comment on above: Performed By: #### 2 751771, 73019179 #### [facility] [address] [place] 5978657 WBC LM.HPF (Urine sed) [#/Area] 0-5 Normal 0-5 [facility] Comment on above: Performed By: #### 2 010396, 73098191 #### [facility] [address] [place] 5978657 XR Chest Single Viewon 02-24 XR Chest [...] by: PRESTON Technologist: JOSEPH, Normal [facility] eGFRon 02-24-2022 GFR/1.73 sq M.predicted among blacks MDRD (S/P/Bld) [Vol rate/Area] 58 mL/min/1.73 m2 Low >=59 [facility] Comment on above: Order Comment: Order added by Discern Expert. Result Comment: eGFR is race adjusted. AA=. Performed By: #### 1 3130760, 6500711, 6261648, 2928501, 50231816, 7185168, 8829688, 5890841 ####[facility] [address] [place] [address] GFR/1.73 sq M.predicted among non-blacks MDRD (S/P/Bld) [Vol rate/Area] 48 mL/min/1.73 m2 Low >=59 [facility] Comment on above: Order Comment: Order added by Discern Expert. 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 Kidney failure is indicated at less than 15 mL/min/1.73m2. Performed By: #### 1 3552002, 7323163, 0435602, 3235494, 19707310, 8752186, 2299209, 1296085 ####[facility] [address] [place] [address] Consent for Anesthesiaon Consent for Anesthesia [id number]#1.00CD:127 Normal [facility] Discharge Instructionson Discharge Instructions [id number]#[id number]:127 Normal [facility] IntraOperative Documentson 1 04-22-2021 IntraOperative Documents [id number]#1.00CD:127 Normal [facility] IntraOperative Documents [id number]#1.00CD:127 Normal [facility] Preoperative Documentson Preoperative Documents [id number]#1.00CD:127 Normal [facility] Preoperative Documents [id number]#1.00CD:127 Normal [facility] Consent for Treatmenton 02-04 Consent for Treatment [id number]#1.00CD:127 Normal [facility] Inpatient Patient Summaryon 02-19-2022 Inpatient Patient Summary [address] [address] [facility] Clinical Discharge Instructions PERSON INFORMATION Name: ADINA PERRY PHYSICIANS Admitting Physician: Jay Power MD Attending Physician: Jay Power MD PCP: ADRIANA CRUZ DO Discharge Diagnosis: Comment: PATIENT EDUCATION INFORMATION Instructions: Post Op Patient Instructions - FT (CUSTOM); Laparoscopic Ventral Hernia Repair, Care After Medication Leaflets: Follow up: With: Address: When: Jay Power [address] [place], [place] [phone] Business (1) In 7 days 02/26/2022 Comments: Call for followup appointment MEDICATION LIST New Medications [facility] [address] [place], [place] [id number], [phone] acetaminophen-hydrocodone (Proctor 325 mg-5 mg oral tablet) 1 Tablets [...] Milligram By Mouth every day. Comment: Jd Waldron [facility] Main OR PACU I Recordon 02-04 Main OR PACU I Record PACU Phase I Docum ent Type FT Summary Primary Physician: Jay Power MD Finalized Date/Time: 02/19/22 12:21:31 Pt. Name: ADINA PERRY /Sex: 1940 Female Med Rec #: [id number] Physician: Jay Power MD Financial #: [id number] Pt. Type: A Room/Bed: 09/04 Admit/Disch: 02/19/22 05:56:04 - Institution: Case Times [...] Saeed RN 02/19/22 12:21 Normal [facility] Main OR PACU II Recordon Main OR PACU II Record PACU Phase II Document Type FT Summary Primary Physician: Jay Power MD Finalized Date/Time: 02/19/22 16:14:48 Pt. Name: ADINA PERRY Umberto/Sex: 1940 Female Med Rec #: [id number] Physician: Jay Power MD Financial #: [id number] Pt. Type: A Room/Bed: [place] [address] Admit/Disch: 02/19/22 05:56:04 - Institution: Case Times [...] Garcia RN 02/19/22 16:14 Normal [facility] Main OR Preoperative Recordo n 02-19-2022 Main OR Preoperative Record PreOp Document Type FT Summary Primary Physician: Jay Power MD Finalized Date/Time: 02/19/22 08:51:16 Pt. Name: ORLANDOADINA/Sex: 1940 Female Med Rec #: [id number] Physician: Jay Power MD Financial #: [id number] Pt. Type: A Room/Bed: Admit/Disch: 02/19/22 05:56:04 [...] Olivier Loza 02/19/22 08:51 Normal [facility] Monitor Recordon 02-19-2022 Monitor Record [id number]#1.00CD:127 Normal [facility] Operative Reporton Operative Report Patient: MAYA PERRY Age: 81 [...] for the proposed operation.. Normal [facility] Comment on above: Result Comment: Elec tronically Signed By: Rk Moreno Jr., DO\.basia\Date and Time Signed: 02/19/22 08:20 EST Outpatient Surgery Discharge Instructionon 02-19-2022 Outpatient Surgery Discharge Instruction [place] [id number] Patient Discharge Instructions PERSON INFORMATION Name: ADINA [...] NEAREST EMERGENCY ROOM OR CALL 911 Vitaly, YOSELYNNIKKIADA AlmanzarADINA, have received the attached patient education materials/instructions and have verbalized understanding: May we do a follow up call? Yes No I was present when discharge instructions were given ____ Patient Signature _ Date Clinican/Nurse Signature Date Follow up: With: Address: When: Jay Power [address] [place] [address] [address] [place] [phone] Business (1) In 7 days 02/26/2022 Comments: Call for followup appointment Pharmacy Information: You may receive a survey from [employer] asking you to rate your care experience. Your feedback is important and will help us understand what we do well and how we can improve the quality of care we provide to you, your loved ones and our community. It?s an honor to serve you. Thank you for choosing [facility] HERE ARE THE MEDICATION CHANGES THAT OCCURRED DURING YOUR HOSPITAL STAY New Medications [facility] [address], [address] [place] [address], [phone] acetaminophen-hydrocodone (Proctor 325 mg-5 mg oral tablet) 1 Tablets [...] and water are not available, use hand nursing administrator. ? Change your dressing as told by [...] (more content not included)... Normal [facility] Patient Education - Texton 1 04-21-2021 [...] and water are not available, use hand nursing administrator. ? Change your dressing as told by [...] care provider approves. General instructions ? Take wqcj-jfn-rdypyli and prescription medicines only as told by your health care provider. ? To prevent or treat constipation while you are taking prescription pain medicine, your health care provider may recommend that you: ? Take xtya-xnc-niigqdx or prescription medicines. ? Eat foods that [...] 03/09/2013 Document Revised: 03/05/2018 Document Reviewed: 11/12/2016 [employer] Patient Education ? 2019 [employer] [facility] Progress Note-Physicianon Progress Note-Physician Patient: ADINA PERRY Age: 81 years Sex: Female : 1940 Associated Diagnoses: None Author: Rk Moreno Jr., DO Postoperative Information Post Operative Note: Post Anesthesia Care Unit. Anesthetic utilized: General. Health Status Allergies: Allergic Reactions (Selected) Moderate Percocet- Nausea. Severity Not Documented Darvocet-N 100- Vomiting. Problem list: All Problems BMI 20.0-20.9, adult / SNOMED CT 1394178273 / Confirmed Incisional hernia / SNOMED CT 891123769 / Confirmed RLQ abdominal pain / SNOMED CT 816633955 / Confirmed Ventral hernia / SNOMED CT 7973933812 / Confirmed Weight loss / SNOMED CT 705861782 / Confirmed Resolved: Anemia / SNOMED CT 848644308 Resolved: Fecal incontinence / SNOMED CT 089678881 Resolved: History of colon polyps / SNOMED CT 5364497811 Resolved: Nausea and vomiting / SNOMED CT 47327696 Resolved: Watery diarrhea / SNOMED CT 907575954 Physical Examination Vital Signs 02/19/2022 14:13 EST [...] (more content not included)... Normal [facility] Comment on above: Result Comment: Elec [...] Histories Past Medical History: Resolved Watery diarrhea (280055232): Resolved. Fecal incontinence (475128784): Resolved. Nausea and vomiting (14879275): Resolved. History of colon polyps (5621872310): Resolved. Anemia (634954291): Resolved. Family History: Heart disease Father Primary malignant neoplasm of lung Sister Diabetes mellitus type 2 Father Brother Procedure history: Colonoscopy ([id number]) on 01/17/2022 at 81 Years. Comments: 01/17/2022 11:03 EDT - Hernan MILLS, Jennifer biopsies, diverticulosis EGD - Esophagogastroduodenoscopy (1610900368) on 07/06/2020 at 80 Years. Comments: 01/09/2022 16:03 EDT - Rajwinder Ho Dr Colonoscopy (995397963). Comments: 01/09/2022 16:02 EDT - Rajwinder Ho 2010 Esophagogastroduodenoscopy (467966147). Comments: 01/17/2022 11:03 EDT - Hernan MILLS, Jennifer normal, gastric biopsies section (35043343). History of hysterectomy. (1409471743). CE - Cataract extraction (6943467607). Procedure on back (298559575). Arthroplasty of knee (80905748). Bladder operation (3453204686). Social History Social & Psychosocial Habits Alcohol [...] Auto 69.3 % Lymph Auto 20.0 % [place] Auto 8.7 % Eos Auto 1.0 % Basophil Auto 1.0 % Neutro Absolute 7.0 E9/L Lymph Absolute 2.0 E9/L [place] Absolute 0.9 E9/L Eos Absolute 0.1 E9/L Basophil Absolute 0.1 E9/L Glucose Lvl 94 mg/dL BUN 25 mg/dL HI Creatinine 1.2 mg/dL eGFR 43 mL/min/1.73 m2 LOW eGFR AA 53 mL/min/1.73 m2 LOW BUN/Creat Ratio 21 HI Sodium Lvl 140 mmol/L Potassium Lvl 4.7 mmol/L (more content not included)... Normal [facility] Comment on above: Result Comment: Elec tronically Signed By: Rk Moreno Jr., DO\Date and Time Signed: 02/19/22 06:44 EST Coding Summary.on 02-10-2022 Coding Summary. CD:[id number] Gh0bWw +PGhlYWQ+DT2TMAPkQ06ftHYsj M4VX4qYWH3LMQHJHWQOTX2AUQ9 krSY1ECmnL5YobhZe KtawlHQnZW00NBf1SPG4wCknUA ehaL1lrQWuC8o2BeQcKF29nR97 JVtoIRPbKnB7AeMybsvboPFm I8xfUbUpeDPoHee+PHRhYmxlIH skHANvSFdnKLRcBoHffCsvCM8i Zs1kXKIfGOBxnPflfJPuTjBb j2cpGAZdHOqmIZ1tpHrhM9LnzJ A6ITXgm8p8Dn57cXH+PHRkIHN0 kGyySAxvn617LfRjz6awRCO4 nIVxOCjmRRF6E78bp4Y5YUHxYI RlUTS9dGX0nX2haWagyxihH6Lj cIDuMnC9WCQ2sJUxbF0fxAxn phpleP0xWet+S96BXZ8KKBROLY 6RQsr2I7JyCogpySL+OU84PHSg NT54bLSloVCtm2nnjIx6OwFa SLDkNQF3zKclOFjtf1KrRDFvL6 1qoWBtd9B1YNZzaJfpmLYuBvHx iXH1dE6jZMtmabzxc2qwhsat Ghxgr5xtja69lK39T12dGWwmIE SgXRU3LFGxLVTwpUdygz2adY0b Ii8+IVwfi3znm3djdRx5UtKe AFItliTffFqfOTX4t4OrAi90C3 BddVmtq8BxXzm6xg13dIOvd9A2 rAS0TEsrFMKktN4rOTauLqS6 ROQrSsWbiU56qVCvLGukBj6rzL kxeJagHP2fCUQggxfhKRDzwS4a LXCwkETvrLuzOS5uQKXcyiip i817BrXmXWC5UUPmuQXsD4XptN 7kUhNmTQKdXUJiW9YrsEGgRMdr T314IGcgQcK0WXTyimRiM1Gq QWVogPkvAjK8d6I9Bf0Xv0Nety orAVL2DHhjCCJkFqG3DpYiEdH4 H8GnXve2VZQgaJeaHR0aX5Fv QQOxnmydbppdiJT4NVUxFRTypF 65qMRrPLicKq9hc0B6t414ZADb NHLxdO12Ja6cfVcfHARyzZPJ iI2spjfkd9pfzsmeOkUlLTFuXL m6ZNe1FKCtaRwfFiEbUNJ0QbV4 JRS3xCKsaA4euNswdbrmnE3i Oyc+J92jaN2xYRM3QOM1ixwzNJ HsckWxMN81OL68A2NjKgmdqJPo bGU+WGVeuvSvdIrnYJ6hSjGj s8dam2CcNAsdZ1FxFPGcEBjpQv x6TTZkELX3nRT7tR4aMEGuSEgm d8T5fIQ5J8VuqvEekd7gi8fv OAXjNYffP85qcRUel3H0UZQqaJ X7OCQrdFtyGgVkfG90Qsp+PGNv xPrar7SsWcbhm2ato8ujhQy5 UnAfUKVttrEhuFelVKD5w4MdEc 37I72iEYqjHPUtSQDiJSZaHDUq oKhsck4xzX9wNv1+PGNvbCB3 pCO5rP2hQDKcJcB2XHycA647Hw XygLYoLbhfl9glo0zyhPn4OiTc DKHocbIhzMerNSR4e9OrOv32 M16aCFfeCPMuBSToAOHyOCUwlP zsea8ssV9cKu2+WX5ok4xwvs08 rO76bSP+VHGqNGR8iKepVThp OZBhmA7jHOcwEqQ6CLPgZmXouQ 10qWJqXBuhXi7ruJwyiBjnNQ5e NSMwwaxiy210XjAgq9tlHAOv bXSwESmuAFD1X30ti0M9UCCkHL QuUDO2tRU9vN6mxJeidsdouNMa gEpvtsJixOzkSBifQScqJ215 IHRvcDsnPlBhdGllbnQgTmFtZT d1F1LcKek7CKNskGnzQH6puZLi WSsuFm3xkJqplAjfZB8bKXJe ctwiv329VmJcq5stVFOmrBFiLW ecEEC7U86mw3Y3EMLvIAVkFLE0 nEW7tR7frJjagkttoZCnoCad psTilYqxHFswIXzdG762CNUwzG lpSrTsbdFvWBWqgHB1ZS63BV72 sLGps3D7cMB1F7JhARWgevch zdrdpET2WBGyUBOdaH34Ry8wjX csGt3fCDInGPZ1UTQylDDmF4Xv cM5aDpKkQXDsLCLgG2EpaALf WYabN920CVgqLdI8ZMTslqQyS4 AlZKCgxBojMgO8c0T5Ms5LG3B6 MV42AD80mCDjj4E2jFR4U3Ry JLGxajropqivdRR8JQScWTEtbB 19Gq9vtKpdHn8lRYWwUKQ9CEUn fYJvJ4BmtC7bZfZeRWPsTGAv J9AxvQEeRRtvA131YNtxLnO1IK PffdJpM6PsRGWpoZyjZoX8t7N1 Sh9XQSa0YY34RQ97yHZjx2Q4 lFA2W3FjFRSdujyjugsjsQH3MI ZdAXJzgQ73Aw8wfJbnMf5gASDm AIG6TURaaVYxA7QksT8nVsYv GOReCYNqI9YtzUTdWAeeQ219XP lcEwC9EIXvqhQkI4HeLRGmlCrc BwL9j1O1Yf1SIEDrUW39QWX4 iXA3RX00OU23E2YdCsfndKAckB U+PHRhYmxlIHdpZHRoPScxMDAl UcSkpJdcWO1xRs7zPMZsYLTx gZwzxJCsEjMwa4jrVLLnBMxaFB 7rlAagD3BwfCU7UXEko4v0Bz23 F92nG1GgiDU+GUJitRW7tVF2 jP9eIaHdZeT5SXzxX355PzAttG ZtPavbx1aoh5bchHl9XlX7QMKh jpEorOqlKPV5o2OkPg55C86a IHdpZHRoPSIxNSUiIHZhbGlnbj 8xkD8fDf7+VHHeuZZ9jMN5hR0v AjVpWcH4CIdgS869KaArgPXy Tkcop0suy6pfoBd5HuQrEZXgft JpkCrqCJW5h0DoGh71X9IngCxd u1EpUvh2mb78xTNvp2U1rSS9 X4OfVUHlcvupaNRvlJjuXL5xAS JzuvikNSSofH2kLZJzO6n9YnEi OnA7XZrhX9YsggG9BRKahKKu DApdBTB2L95nj7F0HEKdTINxGG C9uCL2uD3doUvvustsuQOcqPwg bbPzaJsvJWskRXehO480RZEu fOxjCUPmsU8jIESweDRmbQjrYL 1uTGNpwrjyYfNXZ8OIY0DzCZBA LPXBQ9qHVH06HV61rTEns9L4 eRC3Q9VsICZpwpjxkwpbqHJ4IN TkPQKplK65nYJcHLsmIi7gy9G9 p105IGGyVZHgiJ41Lf2vlHgf JICieYXYqR1vskilm4qvwzyvTd AlDJIiLDb9VQo6KEWdcToiEoQo LHO4BeZ3WYF8eBQggT1ikMtv wwrmaZ3iJol+CTMiPCElKHq4Zi wvdGQ+PCJcRVR7vJhfKLunMUAu uR9zUQIzM6q1LdEuRiU4QZip J5NrAFVosiqrAh35oI5kQwFjEc W7QTxwT8QzejD0EZBgmECbASku NEC6P91rq0C5XOZvWPPzDZT0 aTK0yT6nrMxzqtqiuFQvbJpafg WoiYjdGRfrYLuvM734MVMosUkk Uid6TAvmYCZkQM11RA21rYOj v7I9gXC1C4BxBFRlccroonwnfI H2UZLcYUXviT03vLUrBHgvZx5f y1U2t046AEFeFPWdqQ45Ob5n wLbqRLJltKETdX5kchgqu1shyc jpVkJgEZSqPZi2MTz1VVWkyKfz NlXlVJY9WsY3CDV5xLEbuO5i mDeuqbikjP6sCcl+RmVtYWxlPC 02LG48fKLmf1O2xAG7L3RzOPEw hjtxgihrdQJ3MZDyTUPnpN92 qMPuHCqfLu2mp7M2u609FQZgCM QvwM47Od1xhEssRGDxoXKQkS0b ssgru8ynclfgOdUlIHJnNTw7 ZOa8HTIrgGxnGyHsNAP6UtC7QD E5wZZzhL9kjHicpadguL6tJtk+ N4O6hBC9hRHnhWgfeWA+PC90 at32B4PiTfkgAnw0ZJSpOEI0lJ R5cF5sGXEtDEmuq2A3dSZ3F1Ox gwKzjh9je1rlBOUtXTpyZ24m lMPlr8M5AAQvcQT5WCMhbDsgAq GtoE46Wwc+RRPbyOual2GhZvep e9fcz8guyKd4EjUaQNOtorJh oGpvHYL1r8GvAk10A49bDXikHB DgJLMfRAUvGYRfpPvzci1utI0w Ii8+HENgqFY9pCK9bZ6nVcWw QiT9ZEmdO512SvLawPWjZjwsa6 lpj8aanOr0WzOgTJSabmShiKbp DCW4n1BoDp89P9VzwVjgi7Yl Vgt7xm24mDLmn4K6zRA5R8XpWV NqdbsvdZGacIvtVQ2kYLAjhtdt IIGanG1rJIJsH6m6VxCvWzJ9 LGguW4JcwtQ1THBdqWYbJBXwfP ELkJ6diexgz3ngfkymBzItITIh CAn7LQe6HRKsuLtzQjVpZUY5 ViP3UJQ5pBTnaK3hbPuhuzuhhB 9wOyc+DZi0q9kghOEqVQ7tyWP8 OF56XV39qVTpo0P9kPH7W5Zd MBZrzzhtbwnswJK1NNIhWTQavF 82Hx8acXnyQl6vBAMxTUF4YQFq fBXjV1MwaN2aAzJcAJWvMCZl I6KrgRTaUSszW035UOubTeN3PH BdmzLtJ4AfJDJkiXnuGpK3o6E7 Pc9KCL31LM15OD82uRZva3I1 fNK0K8PzYIInojhqivnmiWH7KQ YuBNTeiZ03Vz4grNqvRv6eAZZk HPX5KAAlxPQzS5MdyK7iHoZf AKLdBVBaV7DfeRVuLJcsW449JC fvSxW4WHUvbzYjZ4DoHLFstHov KqE8h1F0Yy1EYw87CV72KT00 mSYmy8O2zAJ5V2TbODNxhxljfk joiZO2ISBkSYJvuX33Db6saQfg Xp4jBPYqZQK9WWOssSChO0Rs mI8qYaRyBUYoMAKvX8PutHXvUZ szX700AFexYbA3PNFxylAtZ9Zf ZDLboHqtHdO7b0W3Ot4VCQvg wbh6S8OmCnyghXY+JX37CEOtCQ 88jMCcsDGcy2gibDe4WoLqWGVa ZXT9rRteIUrxw5XbABBjL17f bGFw (more content not included)... Normal [facility] Outside Recordson 02-07-2022 Outside Records [id number]#1.00CD:127 Normal [facility] Consent for Procedure/Surger yon 02-05-2022 Consent for Procedure/Surgery [id number]#1.00CD:127 Normal [facility] Outside Recordson 02-05-2022 Outside Records [id number]#1.00CD:127 [facility] Consent for Treatmenton Consent for Treatment [id number]#1.00CD:127 Normal [facility] XR Chest 2 Viewson 2 XR [...] MD, V. 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 female here for ventral hernia Referred by Shi Urbano CT Pelvis done 11/13/2021 She denies pain. She denies hernia surgery prior. History of Present Illness Adina Perry was referred to us for a fat containing ventral hernia by Shi Ubrano CNP. She was last seen by Ms. Urbano on 01/10/2022 where she states that the patient had undergone a CT scan of the abdomen and pelvis with IV with contrast performed at [facility], which showed a fat containing ventral hernia. However, on review of the actual report of that CT scan from 11/12/2021 at [facility], CT abdomen and pelvis with contrast to rule out diverticulitis. There was nothing mentioning a hernia in the body of the report nor in the findings. [facility] did not push through the images to our PACS system. I am unable to review these myself at this time. Our office is in contact with their radiology department to rectify this mistake. After calling and speaking with our radiology department and [facility], they have put the images [...] Martinez to record this visit. ANA M physical education specialist and provider reviewed before signing. ANA [...] mononitrate, 30 mg, (more content not included)... [facility] Comment on above: Result Comment: Elec tronically [...] at PAC Received imaging per Dr. Power [facility] RAD - CT Reporton 01-31-2022 RAD - CT Report [id number]#1.00CD:127 [facility] IntraOperative Documentson 1 IntraOperative Documents [id number]#1.00CD:127 Normal [facility] Postoperative Documentson Postoperative Documents [id number]#1.00CD:127 Normal [facility] Coding Summary.on 01-21-2022 Coding Summary. CD:[id number] Gh0bWw +PGhlYWQ+OO4LYPRtJ72xkPYgw O4ND0iPNA5EETNJRGKMJX8AAB8 xpAS3KTcvW4QuhjZz XgeazHVjHE93ZWw5LJU2vLpbCA hurQ1maIGdQ8d1NgOdLH06pD77 WOjyVSDsGwB6QzFniuujiRLv M2uuXlSmeGApJxi+PHRhYmxlIH dtWDDqAJvnLMLcTlNyqGdqHZ8r Je1aXRBjXYYdxPxxpSOvRrWr u3kbORWvTFmkTE6gbOugJ5LaqO S1ZDCve4g8Eh87hDW+PHRkIHN0 vVqdXCkey216XcWdt6uqKXT6 pLDuQFcwFMR3Z18zd8M9STXzUQ GxIWO5uJE4hU1vmSoliqorN0Ai pQXwSmU1RLY4hFLlsI7gaSts ibpwnU3xZox+D30CWR4BBFSQFG 7MZmc8D7UaEdeogBU+XP71NKJz OM31aZEftJPqs6uccGb5PuJp LZFuEWP2eIjuCKrzd3JoPXKgE4 8ynDFcr5K0BACnkDtdoQPsWvPx gPC2zE2mMXuxgwjro8nruvnn Qlrch2jssb46pL62H15gDEijUW IsAQH0SKWkYHQclCtwaq1eiM7v Ii8+GNvws2ygd9wamYz2CsLs TIRedwGjsSadTLV3w8HsBd41R3 LerLtin0TkKte2bn72mVVwe7V7 wJU1ZKaiEWDbkU2fHSoeWqZ0 JAFjKxPxcT02lHVjYBgxWo0zaM yimMrvMV1gWQAtzibuBBAupB0k IWMuhBMeqIbdAQ4nYCWnnnvn c956SoQgVFE5DKJldVNqA6MpuD 4bMvWcXTVnOGXbM2ZkbVYbOVsa Z203MTofMhS6DGRraiZiE3Xb PFFtpWteIwP5d7T1Ol9Yb4Arcw kmVSK3CCrkPPZoIxI4QiQfPpI1 Y8HjQvt3OQEzyAguRC4mK0Af JLGumozluhgpsEZ3BYQnQIMmaB 29kQIbAQmuNd0qz6R9m102KJHb EGJyfE14Xt5bjZiiWKAklAYF nA3zeqizt4ootnvuWuFtTPZvEL l7MSf5TUMjgSdgCqSoYOD8RqC2 YRF0dBZfaT0cgFxikhcejB1m Oyc+J24uiT8aXAK0BQU7pnkhCT QjvuVjFZ63TO81G0ZxKxespOGq bGU+VMVfunAhfLgnZS6zXaRq a5wpv5RkAOhkO0LqOTFsHAzcQs l1XUNfFFZ3uBL7oG5uIBQvXOgb x7G2dGW7F7PtwtXiil1gr4ya TAAiHYwaC45mtXTfa7Y7XDPsvX P6MFYmzCuuXnVyjQ37Eyk+PGNv sQmhr6QrMioex3lom0gyqAd7 MhOeDOBlbsWdcLmvMXE8x0YcDh 83S45fMPqyNZRrGHOmTASmUARv uTolno8wsX9cLv0+PGNvbCB3 lNF7bN9jLFOxLoH3FSxxM921Fl PmiXSxBvdvf2qsf2wweGd8VvTz OYEvnaPidFyvSRV9g5BuHw44 O43vJQzvORXiMTDhCSCbDVMlgP caqr7vhC2gIv8+IW9gf4kwjq77 wR96nJH+NNLpVKP2gVyeLSey WMCmuS7fRYeiYhV3LOXzFpKnmI 42sPGnRFqxHy2hxHgbtPbeTD1r LOCfugwdr223QkOzl7vrKPMv nLYwBXwrQIX8M94jp9J0DCOaCF HjVIO7iKC5bI3sxUkemhnhxLVo pBplgbIfhTyeBGxzVNmxX408 IHRvcDsnPlBhdGllbnQgTmFtZT i8W8VtJkk6BPIvzGaaZK4shQSl YUndGq8zoWscxEgcPF8oHVRu btozu874JnTqj8azDSUcuZLmZI vbOQW1L27ca3Y6PANyIWAgWRB6 cED2xD5ofMyiqoucxSKraLiu jmOvzLgiWGcvOMqcW574FLXgdQ nnHoNrlzJkCGTtpLV7VW36WK16 zYRga5N3sIM6U4DtULUggeas grosoJH6CUQyDRMrpZ16Nz8nbY psHt0mZLQuNPE6NLSnlFGxG3Ip bU4fQqYkCRAwIBOhG1HtzXMk HDaoN887WXgySfW5JBGsshQqK7 DfCKHreFwtFbA4p3X7Sb8AI4F1 PJ96XN79yNJjs5J4dUL2N1Wr HLHvpwgmcxkiiAD6XTKwHKQbnL 39Ag0nnFqjQm5uXKDnCGP3EQPq gZUyU7QxuK9dDkWcTYEnWVRe D4FcwPIaRPyqJ995FUanMjE0SL MjflSiI4WbTCJopAemBwV7g9K1 Jj9SXEw7JV41LS69dRYkl3K1 oBL2F3OyTZElhqspphopzVZ7JL QjSKIauR31Ow7xeZbbTv2rCXBf LEL9WCQmbCGuV2HltL4yItNi WJQaYGRyR0MepEYjOOdrO744UZ rxRuV9GUTuunJnW7ZpXVJmcJhu AcT8k3Y0Os1MOVBaJI80XIH5 kFD1LG13LS00U3AjNrkxiEBbuH U+PHRhYmxlIHdpZHRoPScxMDAl HyWtpQfnHE2jRs2oYAAvPZYf rUugtYAgWkJvv2tvJAZiLCqwIU 2ggYmhZ2WoaPL5JHWqs8v3Wu84 P29tP9RnmTE+UAHysHV7yHU9 sZ7rRaHiVkT2YEruW658CpWzlX RsOzoxg0txc4cgfXx5YrP8CVZu hhNpxYivZGA2a4YiCc47B00z IHdpZHRoPSIxNSUiIHZhbGlnbj 0gpG4eQx8+SMYflGF5kNG2uI0m HhWwQnE2PRleP044RoDrbBTg Nitjl7zqa5abtNl3CaGpEEXwhj UziVrdRYJ6a2ZlAj41Q3GqqFwe m0VgOxb0hy79cTJuj5J5dKK5 J7CxEZErbqixtMOhlNkqYC0nOX ItoosqTGJneD6kHQGvP1n8BfSv TgR8SPhcC5VhouA9ZKUmfTJz TRonHHR0U76jj0F4PBHrQKNwOF V2uCH7wK1viYprzolkhSEpxIwl yhSvnJvhVWbjMDnoF660SMVa aFihAYYqiC7vHWNfjWJujPffIX 8wIVGbrpyaFhOKD1TSE8UnDQXY JBDKA2vUAE65II85qPArr4E0 dLI6N4HrIRMzendvclpwmMX1CB CyTVPrfR50cPMjCQtfBd5op3W9 w771WHFsFFCqmC01Bt4gqYcc LCBbjRFKvX6fekbue6vqmctvLs DsQMVoNSc7FNq1SMFfeUglWnAo YGH7QdV6YDJ6sYRurE2mcCxx qpayrE6iIwl+LTTfTEFqKUe5Vt wvdGQ+XWRfRXW4sEngTIdvKMMb hX6tJBOeU3w2JaUbBqV7TWpw S8MdMPHqnwmwXx96qL3fXhBuVg R6IIltM5NwctW5ZHAyqEYzBCel UQE3S01ra5S2BQQzNVSqFTJ6 jKA9aA7dfYrlyckejKWfoZzeol EpxGdiWXxcLBzsC438UXPkwZyj Lcd1GJgwIPQkCD62HQ97hASu y9Y5uUI8L5OwOOVmgsdhupvcyU R6VYGpCMLyqM75lUPdPLtpCd2e l7V7p013YYLzROXxjF35Kb2o jJqcHQFlaKYGcW3etzobf7erge eyYbRwYKVmRYf1KXo6SIAdyGxz BaJgOJX8SmW1NOR9gVXbiA5i qQexhrczrQ6jKkn+RmVtYWxlPC 39UG09tKSui1R1jDC8N3BtIBAl aflamzazwET8GIWqWXBamJ46 pLFuGZhlZu3df4K9l237APHbSA RepT17Pg3trPixZQThvHKHrU7r zeaza3fljrcnOlKeQFVbXJt1 QWt3NWRqkOrgXvNmYZH3XuD2VL O5mWGbcU9qyMbyxgkzuW9eTfe+ F0Q3mJV2cIPcxFqydZW+PC90 th81K0EwSmxdDkj8XHUsDNE5dZ C1kW1xQFKsMRwdv0R8oAX9E7As vrLche1id0iwRYDfOCdqD39u aVBvs9K1XDMwfAY0QWFdgTrkId NebK93Opv+RKPvqAxqa8PsMcre g3vnv4ftmHd1IaGwTKRhoqVt hYymROC1m2OvQz65X05iOVbeMC YlZDUzWHDvSCTflWiuzg3zxS8v Ii8+DYJmdKA0tWR7aR1xZdPv SaN9LZrxY709OfIneQOkQvhjb8 drw6jsnTn1NuFeYWZefpKhxLew ZNM5a3LgFt87E6LoxHeuc7Oe Xjo4rs22gWIse9R4pGQ3J9MsYM NiqfodoEQonCtcDU5uTTQkbwne PGOboO5dTQTdB3n1FzSaGqT2 DCrlQ7SzbbC8KHZlcTBgFTVuoJ FXjL9gtardg6xdijrpQfYgKCDi NJm3DXj7OMWirKcxApVbOPC2 SsF4NSC0zPNdkV7kiElhwynzfH 9wOyc+WAv0d9eczIXbJV9kgZM2 VP53EP36fJLll5V6sHS3V4Vh CGXdyjmwerptyFU5NQVcXUCojV 91Yo3geFugFb4kBIDoWSN7QQLv iTRhX3RwjW8kOqWpDIMyAFGn S0JktJQpCUwrJ340KNdvDdT1PJ JfthErU5XtDMGmfNhmQcT5n2R0 Bz1PZY24JO19QX01dAMcr0W1 kGH3W5UbLROpgaamwnaucGI6SJ BqKVOaaC87Be7hkHciEt7kRHRa BYS7QFKeqWYcA4LuhV6lJeWh XTTvXCKxK4GsoZEkXPzqU060UQ qxEeX8OXYotvUuB4MuGUFwsSmt FzI0w1A2Yl8GLi50DM17BV32 qZVbf4E0hJA6C7RjICCmeaovqm zwpWA2WJQvRFCmbP84Ei5pbPty Zm0vGGSsWLJ8KWCxfYTaO2Av gY4wItQjRUAeOEOnY3TfmFRtHK bcX862CBotLaH4VQCvljLvA3Yd ZVCfsShmFfM4o0K2Uu9HGHre pzw6F0KtTcjrlOB+IN46AWVhEF 92qCMvnHPev9fvuLp3TzRnAHDb HOY8wHjnHSltq7GkNHBlB05j bGFw (more content not included)... Normal [facility] Giardia, Direct, EIAon 01-21 G. lamblia Ag IA Ql (Stl) Negative Invalid Interpretation Code Negative [facility] Comment on above: Result Comment: Perf ormed at: [facility] [address] [id number] PhD Yolanda Jiang Performed By: #### 1 [id number] ####[facility] [id number] [place] [address] Main OR Intraoperative Recor don 01-21-2022 Main OR Intraoperative Record IntraOp Document Type FT Summary Primary Physician: Jeferson COPE MD Finalized Date/Time: 01/21/22 11:55:08 Pt. Name: ADINA PERRY/Sex: 1940 Female Med Rec #: [id number] Physician: Jeferson COPE MD Financial #: [id number] Pt. Type: O Room/Bed: / Admit/Disch: 01/17/22 [...] Craig RN, Michelle Fuentes Role Performed Anesthesiologist Ssis Architect - Primary Staff - Other Production Troubleshooter Time In 01/17/22 09:27:00 01/17/22 09:27:00 01/17/22 09:27:00 Time Out 01/17/22 09:55:00 01/17/22 09:55:00 01/17/22 09:55:00 Procedure EGD AND COLONOSCOPY(.) EGD AND COLONOSCOPY(.) EGD AND COLONOSCOPY(.) Comments Dr. Pennington is supervising Last Modified By: Daniel MILLS, Riddhi Sanchez RN, Riddhi Burrell RN 01/17/22 09:55:43 01/17/22 09:55:43 01/17/22 09:55:43 Entry 4 Entry 5 Entry 6 Case Attendee Elana Sethi SPA COORDINATOR, Jasmine COPE MD, Jeferson Alford Role [...] Applicable) PreOp Antibiotic No Time Out Shelly Craig M, Given Participants Riddhi Sanchez RN, Michelle Ray Sparks, Micala E, Ashley VILLA, Jasmine Alford, Jeferson COPE MD [...] and tissue Entry 1 Skin Integrity Intact, [place], Warm, and Outcomes Met? Yes Dry Last Modified By: Riddhi Sanchez RN 01/17/22 07:29:31 Post-Care Text: The patient is free from signs and symptoms of injury caused b (more content not included)... Normal [facility] O & P EXAM, ROUTINE, REFLEXo n 01-21-2022 Ova and parasites identified Concentration Nom (Stl) Comment Invalid Interpretation Code [facility] Comment on above: Result Comment: No o va, cysts, or parasites seen. One negative specimen does not rule out the possibility of a parasitic infection. Performed at: [address] [id number] PhD Yolanda Jiang Performed By: #### 1 [id number] ####[facility] [id number] [place] [address] O & P Exam, Routineon 2021 Ova and parasites identified LM Nom (Unsp spec) Final report Invalid Interpretation Code [facility] Comment on above: Result Comment: Thes e results were obtained using wet preparation(s) and trichrome stained smear. This test does not include testing for Cryptosporidium parvum, Cyclospora, or Microsporidia. Performed at: [address] [id number] PhD Yolanda Jiang Performed By: #### 1 [id number] ####[facility] [address] [place] [address] Consenton 01-20-2022 Consent [id number]#1.00CD:127 Normal [facility] Discharge Instructionson Discharge Instructions [id number]#1.00CD:127 [facility] IntraOperative Documentson 1 IntraOperative Documents [id number]#1.00CD:127 [facility] Coding Summary.on 01-19-2022 Coding Summary. CD:[id number] Gh0bWw +PGhlYWQ+QM3AQCEbD71lkGQmf G3BP5zMQQ2TWZCZTEHHTY0QLH0 wuYW5KLslE2TgleQa YuygjBGfIE13WDq9RWH0bKajLJ otyI6quIDpD4b6WuMsHX05wK72 EMlrESXxLrX2ThQsmzzzwQXm J2ynSxMhfQPlAqj+PHRhYmxlIH lqBXIhJHhbETPjSlRmeCxpKU6q Hc9mJYXnFWZvzMsuxMMwVwTa z3spCYVzUEowUY8fpCzoY4AdlP W8JSKvr8o0Kr78uBZ+PHRkIHN0 gQcrYEpjz378WzBzn2diSHT0 iFEpHKdwKSH4D32zo1P2TZCnBE QlSPX0gZW4rE9rsWuexokzY8Tu wYZeQiQ9MCM1bCWzdP9sbHlc dsyhtS9nMup+V41VOU0BTMWRVJ 7EGmy6V7LjYmidcKZ+WV37TXJk MO54lGPanWVjz1olkHi4LgUf LPRlNHX8yVcpBFoxs5QmXOSnW7 3foAYqu6V5XDXgfKfkeTBkCzGa fFV4jH1vPJkknvsng7ckbvnk Ptgim4ycfa18jU68Z29gDVxyLW JtBLU0KJIkPQSkrTaaen3fhS7a Ii8+KAtnn3nle8lcuTs7MeQp WTAnnkCsqXxzBNV0x1ZtNd86G5 FviOxsa2EcLid8kf78uMPlb3N6 xEG9OExtMXDtgI8eANqcYjD5 DHNfDhActO24nCImBKdeSu7nlP greMrpGY1cXIKlrfcuCPJtuK0a OGZeiXWshXkrWP0mSGKsjjij w291BcYlDYY6JQYfdULzP4LygL 8aPaBjAQLlCLDuN5YxxPNaFQzp W073UDsfRnT2RYDijdVsA3Ct IXHxoEkgAjK7z7X0Lk4Ro8Jexz qzBFC4RWcpRJIdOeL5UmCjSvY8 H8CnLke2FEJxcVesQY5xO7Ht VXQrpuovqoxuuZI3YZHeYDOvbS 68fPNbJAboSc5ii3I7i994PQHp QMCtxY27Mh6xzLfkJOLtpGDG pE9cdapwj8teiuybIdQjJKDnEA r7TNb8SDDwiKdiTmJsCAF3MdY3 CKH1zAMhkN5txHbdselknC4t Oyc+L22ctC6yMFN7WFF4achwEV SvxjDeXM00EU99A6TaUlfmwBEc bGU+TFYnzvEkkRbsYD4uJwZg e4dya9XgKDbcG5FoFBStKJtyAo h5VCUnSJS9yQE0yK9bPBEzIFqy x5C4pFL2L8BsreLnhr9kc7jt SZZaDPkrS02awTImq4H1DNSjsV V1TXBbzMzpZoWnwV79Fuw+PGNv vNjby2TyNwiun8kjz3oheRi0 WuHaGGCtbkOioKiiYNJ7c4GoIy 36A75eZVkbLILpOSRhWYDjPASr mVxutc4wrC4jQe3+PGNvbCB3 oWB1lN5uTBDyYlW4XKrkG751Cv WobKBzKytlv6zld3bxwIb5PzWk TNMewlRsnOljDUU5r9HfGs11 R43rNRgcFDEePUDxEPWfVHGrzI hlta3keQ2rMy1+RD7hj4gwmo72 dY08iGW+DEIeLOA4rKjpIPdf SHVzvX0yWBjzQbK8RFWpLrKvoZ 71tHAaYUzzUs2ccYcwkUbiLD6l HJQqfjuym314BaVtz6ruPVRy kBJhNZixUAJ0O55dq0P4SPHrTB KvDPH9cJH8pU1foKmtztrqeMKp jIjlvlPcsQpwGEujJZluO999 IHRvcDsnPlBhdGllbnQgTmFtZT r3G0MrOgp5TCDgjOggDR0lcCMy JBegOe2jnAinpOcvPX4cMGEu nbrwe199BdQmq4eoMZMedCGyOX yhPOX6U98zr3V2SCEsTVBdCDY3 jXH0yI7upKghivtvrKZjpIki swZuqXhoWCayFXnzQ095KDXpcT fkMeQvghLzAPGbxYA8VZ27NK49 rPXic5N1tJQ7Y6LiMFPktkpv wiohaPH5VWQnNNHeeR32Bq1bcY syTi3zUEQqIDJ6KRYgwYSqK0Re cW2ePzPeMUAxCITmM7NfgCKq XZcqN768XAioHxO3QMLpbfVsF1 GfBVMwtHcwGsI9n5X2Yi6GE5Z9 QO64IA32rYHja5Q0tVJ5M5Sp NLNodjcoajjlfKE6MYUmXOKiiP 50Ne5afFzmMn5nCUHxQWP4JQKh fZWxG5FmkQ2eQkBxLKZzMVQc R4SbrYMpSTmyV556IRpaPkT1HA ZfaeAqH2LtOXHcnPwdWvU6u5F1 Mb8WLVb0YN24DI36bXVrg8M6 cWD2Z9AgUYSfptudrxndaQJ7OD QeUJWptM86Ho5vdGgyAz9nTACq WBI2AAMlcLGdG0AtyK5ySlXg FOSuMOIjD3HjsIGnGTdzU013PK zcRmZ1VERevcVoV6AyPFMneAjh YrM1y1J0Bg7LOVEjNH19OZV5 bNG9EA12LF55N8QmRuevxKIyvV U+PHRhYmxlIHdpZHRoPScxMDAl XkGayTkkMO8gHd0gRKPaLFBm lQmvvUHeNfRdb6hmTQKzGIplMT 1jkRqeW9RnfKH8BSWuj6d6Is27 U62dI9FqxLR+ZHWadGF7aCT0 xU6zEtApAzC1JZjjG118ArNmiP PiBivke4yrl6wnkUv2XjP9YPUn ouJwhEtvFKQ2e5GkCz88W55a IHdpZHRoPSIxNSUiIHZhbGlnbj 0boH7mVy4+KOZuzGV0bOF4mE8t NxQuFaM9FDdcX145RfUyqKZd Qabnd9wif5krjUx9VrTvEZUynl IoeZgvKYY5d1NlXo16Z5CwbRha i8XxLvo6zj22dHVhz6R5dJG6 I5UuMXGzkrdyaKLouSqoFD3vCA JdzxvcAHGqpR7kTXVqR5w2TpCy TtO1ZLayU0CbvoI7WEIfvSEv OAsaDGN6L68hu3J3ZZOhKRBuSZ F4oDZ6xX7ahRwzcyqszVYnyNcd ukUupPdcUKpbRSbkP109MYRo sGxzMOLiiO3dEFExxMKwyQmaKT 3lVNFtafjgDsWYM5EZZ7YdIRMH FBPVI9pXMV03XX76sVNrh4P8 xOB6Z0WtKHQtpqhtloojePN9XP DoFWAkbE40gKXrHCmbSf3rx4H0 c511OMIoWMZhdN20Tk3mrWjc HPOvnFTHnE1ebfrtb4zidcmtPv HfCJNgYIw1SMt5FOOkuVqbVpPn VFO7ZwR7HCG5dIXrqC3zwUpp gatnaE4jRwq+VGIzHHNyTUs7Dp wvdGQ+YXTmUIU4gAgkBSffATGh kO9gAFTjA7c7InDrLvU3VEwc C3LyQQZytqzoTd31qV0aVsHtTv J2INheW5QqwiN8UEQkpRRtOJex SKL9F12dn4A8PYFmQTEoEOH4 xNP6qK3foRchtdioaJTjiEjkic IoyBvfHCttWTcqK034UCEjvFgr Ppc9XCspPHMqQD88QW83oECd z2A0zGA7L2MhTRVvzctusixicN E9UCBlQNVfgQ30bQMjNFwgRr2c n3Y9f664MNMjKVYdwB65Bi6i yAfgLMVkaKDLjN1wfgkge7gtpt xdKeDzQYDnQWc0ZPc9HWGfuSns JsTwDAK1HaV6LHQ0uLXxdE8h mPhrmakobS2fPau+RmVtYWxlPC 07NB52bBDxe4H9dJH4U4OuMDOy aizijarlqPI2IRBlNJJzxS43 cTZdZBpsRg8vj2Z5o846RQExJJ SrcM74Fp8mnLxcFAXrxOEMlL5p ykrzb2qzbqwfIxLzBHRvVOv3 AAw0WGKbnRauRuLsUIB2VvN5VH U6nZXebU0rlWlyfmyjgG8eUdl+ MVSqLTRdg6Fuz2UcBK46DX80 P7MmErmjpRMnqCS+PHRhYmxlIH tiSYNjSSgeLTIrYmNfaQueTH7h Ef0iOIBdXQFtzZndeKIbTfTe s2hpHOOxCCscOG4axHfcM4GzfW T8BBPco9r4Ip63X43uT4UioHF+ TPJhwHU6qVV7bP8dEoWyBjH8 COggG152HeClmLFyLguaj9zxu9 pckVv5HbMpJSLltvPxfUtyYYD2 p5ZwQa93K82yHSwjUOSoDYBr BGIwUZKwnKcone4onM7tWd6+PG OmnGA4fEV6nR5fSrPvZnQ8TOjl U560SiAjhKIoJswkD82jL1Gw dXA+WGDzYyz2RDZpuSwyYM8wdE RrNLnkWu5wOGT0BoIdAmYfJAle D1PkFEDegjocewgvhHM5NYVf ELGsxE55Sz1gyAffYd9zUJKqIT O4FWNpbESyU4LqqW7xJlZjQGDr NGUpS2WmhGEpGEsaQ335UHty GiX0KFSrczCgP6HnFYCmaGlfXm T4a9X8Jo2JtFznwFToLC3zTjBa CZv9C1YgFcv0LXJehYdfMN8z hADvJOrrUu2agSuyqIvnJQ7pTX Ylrwaoa595KfPuf7akXTQryAPd PJdkJPQ1J41ou7O7NKIlPNBr PMS1kCS1vU7qoCorisfebPFsfG rqrcDbgIxqRUjuOSrvH142BMIv pCspEqZKOky0L0EsFlk1DKNr nLbuKX6oeIWoENkuLj3ceHbpdG fcQS1dRHShsfonw186BtXrv5nd CZSvmDSdHBkyAIC8D69kw3V2 UWFhIWJnHLJ5iXE7dG8ppHbjhm ogbGVmdDsgdmVydGljYWwtYWxp W223XDPqiFsoOb5SLvr2U2Aw Dyr0MMQvjCpzSO0jyQOuTPvwJk 1bkDrphBhrPS8dZVIwjxeau542 JlBxs7pqVIXkaIHjMJjxCUQ8 Y27zi5I4SVIhPTHoQGI3wIP3jS 1hbGlnbjogbGVmdDsgdmVydGlj PVvgJAumQ005IQSyzPocLbFu eWVyOjwvdGQ+ZO42ze84Z2BkSr arEfa6WLAgNMB3cNY1zD3qOGYv BCcdp3J5aXD1X0IuubSfkw5q b2xs (more content not included)... Normal [facility] Consent for Treatmenton 01-04 Consent for Treatment [id number]:127 Normal [facility] Endoscopic Procedure Report - Otheron 01-17-2022 [...] Normal duodenum Images Procedure images: Rec1_hd_video_2021__14T0 8_32_50_724.jpg Rec1_hd_video__14T0 8_32_55_551.jpg Rec1_hd_video_2021__14T0 8_33_03_462.jpg Rec1_hd_video_2021__14T0 8_33_09_938.jpg Rec1_hd_video_2021__14T0 8_33_18_428.jpg Rec1_hd_video_2021__14T0 8_33_35_407.jpg Rec1_hd_video_14T0 8_34_25_483.jpg . Post-Procedure Complications: none. Estimated blood loss: none. Specimens: sent to pathology. Devices/ implants: none left in place. Impression and Plan Sessile polyp, 7 mm, in the gastric body, greater curvature, removed completely with cold snare Recommendations: Follow-up in GI clinic in 2 weeks [facility] Comment on above: Result Comment: Elec tronically Signed By: ANATOLIY ERIC, Jeferson\.br\Date and Time Signed: 01/17/22 09:56 EDT Other Comment: Quyen vieira Attachment - attachment storage system not supported [id number] Can be viewed in source systemMissing Attachment - attachment storage system not supported [id number] Can be viewed in source systemMissing Attachment - attachment storage system not supported [id number] Can be viewed in source systemMissing Attachment - attachment storage system not supported [id number] Can be viewed in source systemMissing Attachment - attachment storage system not supported [id number] Can be viewed in source systemMissing Attachment - attachment storage system not supported [id number] Can be viewed in source systemMissing Attachment - attachment storage system not supported [id number] Can be viewed in source system Endoscopic [...] 2. GI clinic follow-up in 2 weeks [facility] Comment on above: Result Comment: in e [...] internal hemorrhoids Images Procedure images: Rec_hd_video_2021__T0 8_49_26_194.jpg Rec1_hd_video__T0 8_47_06_773.jpg Rec1_hd_video__T0 8_46_38_746.jpg . Post-Procedure Complications: none. Estimated blood [...] activities:: After 24 hours. Normal [facility] Comment on above: Result Comment: Elec tronically Signed By: ANATOLIY ERIC, Jeferson\.br\Date and Time Signed: 01/17/22 09:55 EDT Other Comment: Quyen vieira Attachment - attachment storage system not supported [id number] Can be viewed in source systemMissing Attachment - attachment storage system not supported [id number] Can be viewed in source systemMissing Attachment - attachment storage system not supported [id number] Can be viewed in source system Inpatient Patient Summaryon 01-17-2022 Inpatient Patient Summary [address] [address] [facility] Clinical Discharge Instructions PERSON INFORMATION Name: ADINA PERRY [facility]#:[id number] PHYSICIANS Admitting Physician: Jeferson COPE MD Attending Physician: Jeferson COPE MD PCP: ADRIANA CRUZ DO Discharge Diagnosis: Anemia Comment: PATIENT EDUCATION INFORMATION Instructions: Upper Endoscopy, Adult, Care After; Colonoscopy, Care After Surgery Anatoliy (CUSTOM); Diverticulosis MAGR (CUSTOM) Medication Leaflets: Follow up: With: Address: When: Jeferson COPE [address] [place] [address]. [address] [place], [place] [id number] [employer] (1) Comments: office will call for follow up Type Location Start Finish [facility] [address] [facility] 02/03/2022 10:20 AM 02/03/2022 10:40 AM [...] D3) sertraline spironolactone Comment: Normal [facility] Main OR PACU I Recordon 01-04 Main OR PACU I Record PACU Phase I Docum ent Type FT Summary Primary Physician: Jeferson COPE MD Finalized Date/Time: 01/17/22 10:57:57 Pt. Name: ADINA PERRY /Sex: 1940 Female Med Rec #: [id number] Physician: Jeferson COPE MD Financial #: [id number] Pt. Type: O Room/Bed: / Admit/Disch: 01/17/22 [...] Becerra RN 01/17/22 10:57 Normal [facility] Main OR Preoperative Recordo n 01-17-2022 Main OR Preoperative Record Holding Area Document Type FT Summary Primary Physician: Jeferson COPE MD Finalized Date/Time: 01/17/22 07:57:32 Pt. Name: ADINA PERRY /Sex: 1940 Female Med Rec #: [id number] Physician: Jeferson COPE MD Financial #: [id number] Pt. Type: O Room/Bed: / Admit/Disch: 01/17/22 [...] Beckett RN 01/17/22 07:57 Normal [facility] Monitor Recordon 01-17-2022 Monitor Record [id number]:127 Normal [facility] Monitor Record [id number]:127 Normal [facility] Outpatient Surgery Discharge Instructionon 01-17-2022 Outpatient Surgery Discharge Instruction [place] [id number] Patient Discharge Instructions PERSON INFORMATION Name: ADINA PERRY Date of : 1940 Current Date: 01/17/2022 10:08:03 PHYSICIANS Admitting Physician: ANATOLIY ERIC [facility] Discharge Diagnosis: Anemia ADINA PERRY has been [...] Date Follow up: With: Address: When: [address] [place] [phone] Business (1) Comments: office will call for follow up Type Location Start [facility] 30 [facility] [place] [place] 02/03/2022 10:20 AM 02/03/2022 10:40 AM Confirmed Pharmacy Information: [facility] You may receive a survey from [employer] asking you to rate your care experience. Your feedback is important and will help us understand what we do well and how we can improve the quality of care we provide to you, your loved ones and our community. It?s an honor to serve you. Thank you for choosing [facility] HERE ARE THE MEDICATION CHANGES THAT [...] activities are safe for you. ? Take asct-vuc-mszegka and prescription medicines only as told by [...] 09/21/2012 Document Revised: 09/14/2018 Document Reviewed: 08/23/2018 [employer] Patient Education ? 2020 [employer] Colonoscopy Care After Surgery Please read the ins (more content not included)... Normal [facility] Patient Education - Texton 1 Patient [...] unsweetened, w/added ascorbic acid 1 cup 0.5 Hitchita 1 cup 0.7 Vegetables Cooked Green beans 1 cup 4.0 Carrots 1/2 cup sliced 2.3 Peas 1 cup 8.8 Potato (baked, with skin) 1 medium potato 3.8 Raw [place] (with peel) 1 cucumber 1.5 Lettuce 1 [...] (more content not included)... Normal [facility] Progress Note-Physicianon Progress Note-Physician Patient: ADINA PERRY Age: 81 years Sex: Female : 1940 Associated Diagnoses: None Author: Eliecer Pennington DO Postoperative Information Post Operative Note: Post Anesthesia Care Unit. Physical Examination Intake and Output HYDRATION ADEQUATE Vital Signs (last 24 hrs) Last Charted Resp Rate 14 br/min (JAN 17 10:25) SBP H 158mmHg (JAN 17 10:) DBP 81 mmHg (JAN 17 10:25) SpO2 [...] criteria met. Condition good. Normal [facility] Comment on above: Result Comment: Elec [...] list: All Problems Anemia / SNOMED CT 204336326 / Confirmed Watery diarrhea / SNOMED CT 814524385 / Confirmed History of colon polyps / SNOMED CT 0540507970 / Confirmed Fecal incontinence / SNOMED CT 957279434 / Confirmed Nausea and vomiting / SNOMED CT 80838940 / Confirmed RLQ abdominal pain / SNOMED CT 759254854 / Confirmed Weight loss / SNOMED CT 397173364 / Confirmed, Active Problems (7) Anemia Fecal incontinence History of colon polyps Nausea and vomiting RLQ abdominal pain Watery diarrhea Weight loss Histories Past Medical History: No active or resolved past medical history items have been selected or recorded. Family History: Heart disease Father Primary malignant neoplasm of lung Sister Diabetes mellitus type 2 Father Brother Procedure history: EGD - Esophagogastroduodenoscopy ([id number]) on 07/06/2020 at 80 Years. Comments: 01/09/2022 16:03 EDT - Rajwinder Ho Dr Colonoscopy ([id number]). Comments: 01/09/2022 16:02 EDT - Rajwinder Ho [...] general injury discussed. . Normal [facility] Comment on above: Result Comment: Elec tronically Signed By: Eliecer Pennington DO\poppy\Date and Time Signed: 01/17/22 08:36 EDT Coding Summary.on 01-16-2022 Coding Summary. CD:[id number] Gh0bWw +PGhlYWQ+TH3OURAnL60rxOBip K3JL3rEEC3BTGLXYLRVLB8GLR2 ysBI0NAecA9OdgnLs ImfyjYKiNS95NPw5KGA3bRopXF pitN6rjZKnM8v0LbViFX45yB00 LEvoCYFnIwF8HiKaixslfLVj M2rmThSnaKAeCxb+PHRhYmxlIH ntCODtENkyHFUhNlUtmWkhAF6y It1qQWKaLDPvmMaxrWZpMeAl s9moEHSeKClgDT6vkPgtY3IfoZ S0VZNss4o6Xc20mBP+PHRkIHN0 pGdaVPwix394CwVmm7eyPEY2 aJBkXKbtSOB7A31yq4O7ZPQrKD NjERP6bEL9rJ5fyOppipusU1Mb iXRrXlD5KLI9cWJmaJ5otHdg slblwM0hTjx+T51PJX3QLGCINV 1PQzw2N4TrAswzdLM+PU46EFBx AT28oDKngFVre4jxbLw1RvJm JFHmGNW5rWocGDple2WvGDUbN4 8puBEsy8F1BRZatMskrLOtSvXp cSU0nM5pVRjpmtldv7hravwv Scutp0libd32jR18E63uJLfdJI KsXVD3OIZjOUBoxEftau7jjS0f Ii8+ZMqrk9qsb1fejRk3PiXf YQNkqnVtkVdeKBG9e6GzIa38Z0 JwrAfpe8UaYnv0ld67mOQfa8C9 vAV1FDtqULCuwH9oUFbdJcE1 AHFoTbDswJ69bKDlITdlPl6usL pyfHqyGS5sWIIcpancTUTmlF3d XIGakTLtxLmdKX6bGKSzsoit j391UsIiEGO8HFBmyZGkB7VctL 2pBsEfKEXyPVWzY2HsyJCjJVon K156LQhuHyW0SEUtseCoT2Qh GBElmAzhWtN0h9E5Fw5Et4Opcw wgLKH6FYdmBJUkBjCaDaRuUrG5 X3VaEbm9BXTfzQntTU7oL1Pg VPZjoxnzyzngjOR5SUOwQEXbvK 84lLJxLJbtAe2kp4R2a998XNTf NVFwbJ54Ms0roUgrTCRdaJQV uP3nwmbya7eiuhuiEwKiHEZwHR g8CDw5KXTyiGxlWnNgDAZ7CfR4 ITO0hCPquH7nlJnyisvvsO3d Oyc+S45roF5eFVY1EAB1rzfyMF LvvgXcEO89RB45B7RgHhzohVPr bGU+YDSntrBvfLerWV3zBxTt u1cdd7BwDHipU6XtBEFlNRllFf m0NNVuQPI7qGD6lD6pBBRfZMys d8U3cYZ3Z2UnnkPayy4px7bm PCLmOTcuB81urENdk9S9NQMrxV A6MYUriEadZtTnvH79Iby+PGNv dLbqk1VjZgzus2jlh4morEa8 OcNjJJSgojOoaGbqXQW5w1UyFc 89R52uIGqfTREkLPDeAPGiVEOm zTtynf2siA8tQf1+PGNvbCB3 fEC3rA2yWPVdHeN5MAhgX616Hl SkaYIgYlxah1hub0wlbPd5CjYv FLEcvxOduZzgZUS5l8ElTt80 M88bGPgdGDVvFIMtNRYpUEIizA bfvl5jcG3sTp5+UL9ea4dnti23 jG72qAF+THHrTQJ4yAjoSVbd ZJShtO9uANimQgQ4YNQdIgIdyR 36wJLhABgyIc5rjCserYgxLB8u NUTullmaa522FdZbh5oyFCOy uALdTCceEYS8E39my4H7WFWpZG GcBZV7aIM1vN5afRsuzumlpKSw sUkjfvLiwSenAMnzPGtxW876 IHRvcDsnPlBhdGllbnQgTmFtZT r8Y6WfVkg6SASzvBbpXV0rwNPg EVfkGu0lrWepyUtuPP6iHAXt ygxwm910RsKtq9ufBKKdeDDfJW crMRU1N22uc6J9MOFbRTEhYXM0 aTZ1bA4vzJzstxuruXLslDhx ljSccUvsGUoiZZrxF964DFKnkN jqUoDcukHeJFWczMX9KX40QW95 rAYqz0W2bAP3V9DeADTuvznq wzawxTP4CVAiIWAdwM39Zr2szJ bsGi8hYKVsPKH8LSTfaJVbR0Nw vX0hViIeTTMeXEGaA5JiaWKb LMteX707KUuiUzQ5TMLwqcZcR6 KuYUEfiPfrJaK0z8L6Im8LE1Y0 MR35AC21hDKiy9O4tUQ9F5Fe ALLcbvzvhcxmqQF6RBEhSJXhkH 85Lv2acTdaMj9mVKAdTKB0HBOe iZMdO0ClvS4jXyYtQCCzCJHu V9OvkEDvYWnbI512CGyxGpS3SE KwwyDpU6IwOBWenDqiVnN5q6V2 Ul6LUDx7GO99MK80tEBgm2R6 gVR1D6GnQFImeikitngpyXO3ON WhLXQmqB17Uo1laPeyAx1xABBx XXJ4MMYtsAJzS8XnwT5cDdOu BGGxSYTvB1UsmNIfGVcbP123FX fzPxY0TADgjrDlJ7LsXTDsaZpx TlM2n6A5Lw9CJDYwLY34XMV8 eMW3MQ99OG37K3NtScadgWMbnR U+PHRhYmxlIHdpZHRoPScxMDAl HfBwaJatCV5wBy6tPTHgBDNc mDofkJPzZgDyw7ndGDCaSXhjID 4xqWznO9MlzJX1UJOhq0f4Ho99 S52oV7KemZM+IZFdoTH9qCX8 hE9sIoOkPdZ9YTrgU998LpDpsW PiZctht1dbg9ojfLr0XzE2CFKz gcKsiXdySHS5m5PkGv78L23h IHdpZHRoPSIxNSUiIHZhbGlnbj 3wvB4uWh7+ECKyyMV2jND1lG9p HpJbNwO7LUjaC996KjJcuCSy Pcirv6azt6mlxQo5LpGkMIVyzj NkyOysNJG5c1GeWy38G8SrmJvd n3DgKnh1tu19nLStw2F2wXD4 X9VzXPDxdchwnURtoDlfYJ0aWG BknyijVUOgeW7qIPHfW6j6RuYj SyI0DQwqD7RgltW5JMVbeBGu CEbfUON3B37zr3O2KXMoXOMhBG G1xAZ3eT0cpUsbpjdjcNYmsFjs bfWwrCuoFQzoWMwuL878DLMw eWtyQFUegK4kIXTjmOMebMrvZO 2uQFZoxafzPdCQB0VOX5YgQWAP PAGBM7rWBD96EX07zCQru3J8 wSX3X5KvERMhtaomswcnkJA7CA EcBDElwG93lWPsFUqsKz9zz1Y6 y242SCWrWBRikI67Bx5mnWdw AJPzpEWElU0cwcpcj1uirvdtYs OvLECvMJy4LBh7NNLihUizMiLj HZD4WdQ5JNJ5bDOxmU2rgZtn aikonH3fApl+RUIfDUOfEVe4Cf wvdGQ+LZBpGBX8rLxiCVduIKHl cS6nRQGmW2j3SsRxIoK6GIzl J3PfAZKkdlrmOz56uC1uHzRqVe V2UBcwQ3ScxmY5XCVroFCgMXrk ZRA8P60oi9Z0LWDcTIXtANV6 vVM4pJ5cqCukmnupdXLgxTjwtq CxzGbzYYsjMWzsK374SVQedToi Atr0KVvrWUJhPM84LR91jVPr l1Z5pQB8B5NkRCXoqoefekqwoW N3GNIaLMKrhJ16vCKmGJnyAs1p q5Y4h415QIHnTWVppX05Me9y nPafFRCvsDZHwY9iwytwb0eznk mfSmGdNSUjYKq4NPu1TIEwdLnm HcCuXFF4VcW1ZUX2bTLusD5i qQbipnbcwJ5vEsn+RmVtYWxlPC 05NC90fMThj2Z6rDP1Z7VpUBWn vxxehlvqvKB5JUPqFBFgeD07 dQPcWUhxVi6yi7T3n593SYKlPJ JdkD66Qp9fjYwgCIObrVIVwP7q xunny0vazmftSqBsPCFzJLv5 USr4LAQtcQjxFfSmOXW8YvV5SS F3nQHglN3vwArsfkrvlF3mNjj+ Y0N0xRU7zTFtdSshdVS+PC90 yd25V8CgHlndBnj3QZQxVWK3eO S6cC0pEXXzXJjpu3S6zLR7J4Pd spGqib7nh7qhJRLmBKnfS07j zADnv5I1CNCivVI7JXSnoHqoMx OgnB92Tvl+FATeuXakd1UkRzvv r5sbd3foxYn8GjZmJGOxfmJi bWcmOYZ3a6GoVm74H70zYJrlML RiIUKlZKYxRWBsxFovmc8vlH9k Ii8+KTKcmAC7yQG8jY1eEhDj TmA6DOlrH841NgHocIOoPhobx9 umw8lbpMx9KpXxNNEwzuHaaBby EEF5e4JnDl92S8BgoNham3Iu Llc3se35pIVvs3K8eKE0C1HlSW FoazyzrMAtaYjsMM1nGXWiqwnu GZKrfV4mAVGhA4d7BfQfEwJ9 YHjgY5TxqtM6GHWbkNVuCPDqrX ODfC8axqnzc1pzueycBtByQNUm GTb6QLo5RYJlpUowUgPiXCB5 IvA9AYR7vKTtfJ5mqZrhqeklkJ 9wOyc+PTs6a4pwhWZkNC5exFR7 EX61MI04lSLqz2V5bRE9D6In DGLcswkfedvwgYL5QDVgEBIrgK 67Jv4izNifAb1gCPWpQZH4NUWk bTTsF9DioX7jSnJyBGEgPRLm F8NumHQmQWnjU081WShdRkB1NE BlujMcZ3PjSKBybPgcMnF8o7H8 Xy5YBA34WU78JA10sKXmn5H5 wFS4A4DsOCIldvukeocmqRC5NC CvTBDldX83Pa1kiAzjRf8tMYEm GOU6SPHruSQaX0SatO3xFqEr YDToZPJfY5QlqYVvXRimO496PW lvLkE9VHQqwnTkE1OaDEHhgWeq YnB6u4G4Iw7BRt31HD63HW48 qGSxw0W5tRC4O5SiFVEjubqzoq cbkKH7GOAgDGBqaC80Ev8kcIbv Gm8rUHUvMYC5BIReaSMzE3Fm hM2yUjHxEVEvTJFvX3CroNCmLQ zyM592XAbyKxB6TAVrtiFrA2Eg BPDatHokOgQ7g6H3Bq2AHRco dnt0K4ZtEvigvXW+IW10RLFwTD 96qSNknDYka2wxhOt7XmSqMUUc OLL0rSbnSKzxl1NaQDYaD88r bGFw (more content not included)... Normal [facility] C. diff by PCRon 01-14-2022 Clostridium difficile by PCR see comment Invalid Interpretation Code [facility] Comment on above: Result Comment: Unab [...] its clinical significance. Performed By: #### 1 [id number], 898797427, 93523022, 49180928, 25147622, 74582958 ####[facility] [address] [place] [address] Consent for Procedure/Surger yon 01-14-2022 Consent for Procedure/Surgery [id number] Normal [facility] Enteric Panel by PCRon 01-14 C. coli+jejuni+upsaliens is DNA FERN+non-probe Ql (Stl) Not detected Normal [facility] Comment on above: Result Comment: Test ing was performed utilizing reverse trench digger helper (RT), polymerase chain reaction (PCR), and array [...] nulcleic acid test. Performed By: #### 1 [id number], 539034252, 24407832, 37756712, 88045554, 15548117 ####[address] [place] [address] E. coli stx1+stx2 genes FERN+non-probe Ql (Stl) Negative Normal [facility] Comment on above: Performed By: #### 1 [id number], 578655404, 11029321, 70292500, 69647101, 12950186 ####[facility] [address] [place] [address] Enteric Panel by PCR Negative Normal [facility] Enteric Panel Intrl QC Pass Normal [facility] Comment on above: Result Comment: Test ing was performed utilizing reverse trench digger helper (RT), polymerase chain reaction (PCR), and array [...] 1 and 2. Performed By: #### 1 [id number], 242709831, 74411415, 33335585, 88921018, 48513454 ####[facility] [address] [place] [address] Norovirus genogroup I+II RNA FERN+non-probe Ql (Stl) Not detected Normal [facility] Comment on above: Performed By: #### 1 011274275, 828880138, 42790536, 16786592, 52069048, 23602446 ####[address] [place] [address] Rotavirus A RNA FERN+non-probe Ql (Stl) Not detected Normal [facility] Comment on above: Performed By: #### 1 363387060, 016189614, 72366488, 13651050, 85578894, 52035377 ####[address] [place] [address] S. enterica+bongori DNA FERN+non-probe Ql (Stl) Not detected Normal [facility] Comment on above: Result Comment: This test result should be correlated with clinical presentations and medical history by a healthcare provider to determine its clinical significance. Performed By: #### 1 [id number], 867921710, 14868163, 54818064, 76285558, 46157380 ####[address] [place] [address] Shigella species+EIEC invasion plasmid antigen H ipaH gene FERN+non-probe Ql (Stl) Not detected Normal [facility] Comment on above: Performed By: #### 1 171582663, 420507784, 44052028, 38314572, 27851299, 77690267 ####[facility] [address] [place] [address] V. cholerae+parahaemolyt icus+vulnificus DNA FERN+non-probe Ql (Stl) Not detected Normal [facility] Comment on above: Performed By: #### 1 756626431, 194559867, 80441636, 50338904, 91534915, 16678189 ####[facility] [address] [place] [address] Y. enterocolitica DNA FERN+non-probe Ql (Stl) Not detected Normal [facility] Comment on above: Performed By: #### 1 035773638, 505727322, 84600890, 06282530, 78784823, 55727991 ####[facility] [address] [place] [address] Fecal WBC Lactoferrinon 01-04 Fecal WBC Lactoferrin Negative Normal Negative [facility] Comment on above: Result Comment: The semi-quantitative detection of elevated levels of fecal lactoferrin is a marker for fecal leukocytes and an indication of intestinal inflammation. Performed By: #### 1 071624869, 566681736, 33749770, 77374012, 19821582, 00976529 #### [facility] [address] [place] [address] Ambulatory Visit Summaryon 1 Ambulatory Visit Summary [...] Interpretation Code RLQ abdominal pain [facility] Auto Diffon 01-10-2022 Basophils/100 WBC (Bld) 1.0 % Normal 0.0-2.0 [facility] Comment on above: Order Comment: Order Added by Discern Expert. Performed By: #### 2 663713, 6679992, 69021760, 0280435 ####[facility] [address] [place] [address] Basophils/Leukocytes Auto (Bld) [Pure # fraction] 0.1 E9/L Normal 0.0-0.2 [facility] Comment on above: Order Comment: Order Added by Discern Expert. Performed By: #### 2 086890, 5345247, 55521958, 8157751 ####[facility] [address] [place] [address] Eosinophils/100 WBC (Bld) 1.0 % Normal 0.0-8.0 [facility] Comment on above: Order Comment: Order Added by Discern Expert. Performed By: #### 2 179515, 9665119, 68784484, 9278726 ####[facility] [address] [place] [address] Eosinophils/Leukocyte s Auto (Bld) [Pure # fraction] 0.1 E9/L Normal 0.0-0.5 [facility] Comment on above: Order Comment: Order Added by Ramírez Expert. Performed By: #### 2 851147, 9701974, 09803133, 7320220 ####[facility] [address] [place] [address] Lymphocytes/100 WBC (Bld) 20.0 % Normal 14.0-50.0 [facility] Comment on above: Order Comment: Order Added by Discern Expert. Performed By: #### 2 847890, 0620336, 14100248, 1474292 ####[facility] [address] [place] [address] Lymphocytes/Leukocyte s Auto (Bld) [Pure # fraction] 2.0 E9/L Normal 1.0-4.0 [facility] Comment on above: Order Comment: Order Added by Ramírez Expert. Performed By: #### 2 661249, 1322162, 74754651, 9718610 ####[address] [address] Monocytes/100 WBC (Bld) 8.7 % Normal 4.0-14.0 [facility] Comment on above: Order Comment: Order Added by Ramírez Expert. Performed By: #### 2 665995, 1558565, 81788714, 7690412 ####[facility] [address] [place] [address] Monocytes/Leukocytes Auto (Bld) [Pure # fraction] 0.9 E9/L Normal 0.2-1.0 [facility] Comment on above: Order Comment: Order Added by Ramírez Expert. Performed By: #### 2 445883, 4344833, 29316285, 1190142 ####[facility] [address] [place] [address] Neutrophils/100 WBC (Bld) 69.3 % Normal 36.0-75.0 [facility] Comment on above: Order Comment: Order Added by Ramírez Expert. Performed By: #### 2 249749, 6320453, 61448243, 9198752 ####[facility] [address] [place] [address] Neutrophils/Leukocyte s Auto (Bld) [Pure # fraction] 7.0 E9/L Normal 2.0-7.5 [facility] Comment on above: Order Comment: Order Added by Discern Expert. Performed By: #### 2 058197, 8634337, 90044961, 1791864 ####[address] [address] CBC w/ Auto Diffon Erythrocyte distribution width (RBC) [Ratio] 14.7 % High 10.9-14.2 [facility] Comment on above: Performed By: #### 2 756390, 4087082, 99384603, 9869605 ####[address] [address] Hematocrit (Bld) [Volume fraction] 37.1 % Normal 34.0-46.0 [facility] Comment on above: Performed By: #### 2 188202, 8438947, 29647578, 5536787 ####[address] [address] Hemoglobin (Bld) [Mass/Vol] 12.2 g/dL Normal 12.0-16.0 [facility] Comment on above: Performed By: #### 2 049446, 5140742, 82384620, 0396406 ####[address] [address] MCH (RBC) [Entitic mass] 30.0 pg Normal 27.0-34.0 [facility] Comment on above: Performed By: #### 2 762519, 8025296, 76997372, 0461162 ####[address] [address] MCHC (RBC) [Mass/Vol] 33.0 g/dL Normal 31.4-36.0 [facility] Comment on above: Performed By: #### 2 611402, 4462468, 13133404, 4546659 ####[address] [address] MCV (RBC) [Entitic vol] 90.8 fL Normal 80.0-100.0 [facility] Comment on above: Performed By: #### 2 992003, 4088709, 63008854, 0667999 ####[address] [place] [address] Platelet mean volume (Bld) [Entitic vol] 7.9 fL Normal 6.4-10.8 [facility] Comment on above: Performed By: #### 2 584662, 6176868, 77771720, 2197397 ####[address] [address] Platelets (Bld) [#/Vol] 281.0 E9/L Normal 150.0-500. 0 [facility] Comment on above: Performed By: #### 2 364039, 9168843, 05619009, 9027383 ####[address] [address] RBC (Bld) [#/Vol] 4.1 E12/L Low 4.3-5.9 [facility] Comment on above: Performed By: #### 2 703774, 2329599, 50823381, 5693697 ####[address] [address] WBC corrected for nucl RBC Auto (Bld) [#/Vol] 10.1 E9/L Normal 4.0-11.0 [facility] Comment on above: Performed By: #### 2 791982, 8653471, 55550319, 6898326 ####[address] [address] CMPon 01-10-2022 Albumin [Mass/Vol] 4.4 g/dL Normal 3.3-5.0 [facility] Comment on above: Performed By: #### 2 270076, 1985323, 17606460, 5786696 ####[address] [address] Albumin/Globulin (S) [Mass conc ratio] 1.5 Normal 1.1-2.2 [facility] Comment on above: Performed By: #### 2 097567, 4477146, 11464513, 7310973 ####[facility] [address] [place] [address] ALP [Catalytic activity/Vol] 55 Int._Unit/L Normal 21-98 [facility] Comment on above: Performed By: #### 2 899544, 5189343, 22415313, 1222301 ####[facility] [address] [place] [address] ALT No additional P-5'-P [Catalytic activity/Vol] 15 Int._Unit/L Normal 6-46 [facility] Comment on above: Performed By: #### 2 610515, 5640323, 30916710, 5307961 ####[facility] [address] [place] [address] Anion gap [Moles/Vol] 19 mmol/L High 6-16 [facility] Comment on above: Performed By: #### 2 684221, 4684516, 58996443, 3051240 ####[facility] [address] [place] [address] AST [Catalytic activity/Vol] 19 Int._Unit/L Normal 5-43 [facility] Comment on above: Performed By: #### 2 637936, 9572533, 42981531, 0620562 ####[facility] [address] [place] [address] Bilirubin [Mass/Vol] 0.7 mg/dL Normal 0.0-1.1 [facility] Comment on above: Performed By: #### 2 740107, 6393144, 04479293, 8825319 ####[facility] [address] [place] [address] Calcium [Mass/Vol] 10.5 mg/dL Normal 8.9-11.1 [facility] Comment on above: Performed By: #### 2 707024, 0811230, 27125137, 0639491 ####[facility] [address] [place] [address] Chloride [Moles/Vol] 103 mmol/L Normal 101-111 [facility] Comment on above: Performed By: #### 2 170400, 0331068, 21713533, 9531685 ####[facility] [address] [place] [address] CO2 [Moles/Vol] 23 mmol/L Normal 21-31 [facility] Comment on above: Performed By: #### 2 864758, 5090432, 69236486, 9179690 ####[facility] [address] [place] [address] Creatinine [Mass/Vol] 1.2 mg/dL Normal 0.5-1.3 [facility] Comment on above: Performed By: #### 2 [id number], [id number], [id number], [id number] ####[facility] [address] [facility] [place] [address] Globulin (S) [Mass/Vol] 2.9 g/dL Normal 1.4-4.0 [facility] Comment on above: Performed By: #### 2 [id number], [id number], [id number], [id number] ####[facility] [address] [place] [address] Glucose [Mass/Vol] 94 mg/dL Normal 55-199 [facility] Comment on above: Result Comment: If t his glucose result represents a fasting glucose, interpretation should refer to the following reference range: 55-99 mg/dL Performed By: #### 2 [id number], [id number], [id number], [id number] ####[facility] [address] [place] [address] Potassium [Moles/Vol] 4.7 mmol/L Normal 3.5-5.3 [facility] Comment on above: Performed By: #### 2 [id number], [id number], [id number], [id number] ####[facility] [address] [place] [address] Protein [Mass/Vol] 7.3 g/dL Normal 6.0-7.8 [facility] Comment on above: Performed By: #### 2 [id number], [id number], [id number], [id number] ####[facility] [address] [place] [address] Sodium [Moles/Vol] 140 mmol/L Normal 135-145 [facility] Comment on above: Performed By: #### 2 [id number], [id number], [id number], [id number] ####[facility] [address] [place] [address] Urea nitrogen [Mass/Vol] 25 mg/dL High 5-21 [facility] Comment on above: Performed By: #### 2 485375, [id number], [id number], [id number] ####[facility] [address] [place] [address] Urea nitrogen/Creatinine [Mass ratio] 21 No Units High 10-20 [facility] Comment on above: Performed By: #### 2 199096, [id number], [id number], [id number] ####[facility] [address] [place] [address] Consent for Treatmenton 10-0 Consent for Treatment [id number] Normal [facility] Gastroenterology Office/Clin ic Noteon 01-10-2022 Gastroenterology [...] had previous EGD with Dr. Brannon at [facility] 07/2020 that revealed normal EGD. Was previously evaluated at [facility] 11/12/21 for N/V/D and had CT abdomen/pelvis [...] to evaluate for acute process. 11/12/21 at [facility]-CT abdomen/pelvis that showed fat-containing ventral [...] (more content not included)... Normal [facility] Comment on above: Result Comment: Elec tronically Signed By: Shi Urbano CNP\.basia\Date and Time Signed: 01/10/22 11:40 EDT Patient Educationon 10-07-20 22 Patient Education Gastroenterology Fecal Incontinence Fecal incontinence, [...] your local community. General instructions ? Take omtj-ixj-sgdimeu and prescription medicines only as told by [...] (more content not included)... Normal [facility] eGFRon 01-10-2022 GFR/1.73 sq M.predicted among blacks MDRD (S/P/Bld) [Vol rate/Area] 53 mL/min/1.73 m2 Low >=59 [facility] Comment on above: Order Comment: Order added by Discern Expert. Result Comment: eGFR is race adjusted. AA=. Performed By: #### 2 [id number] ####[facility] [address] [place] [address] GFR/1.73 sq M.predicted among non-blacks MDRD (S/P/Bld) [Vol rate/Area] 43 mL/min/1.73 m2 Low >=59 [facility] Comment on above: Order Comment: Order added by Discern Expert. 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 Kidney failure is indicated at less than 15 mL/min/1.73m2. Performed By: #### [id number] ####[facility] [address] [place] [address] Physician Referralon 022 Physician Referral [id number] Normal [facility] Urine culture routineOrdered By: Misbah Greenwood on 11-15-2021 Bacteria identified Cx Nom (U) Escherichia coli [facility] Bacteria identified Cx Nom (U) Klebsiella pneumoniae [facility] Automated erythrocytes count in urine sediment (number/area)Ordered By: Misbah Greenwood on 11-12-2021 RBC Auto (Urine sed) [#/Area] 1-2 [HPF] 0-4 [facility] Automated leukocytes count i n urine sediment (number/area)Ordered By: Misbah Greenwood on 11-12-2021 WBC Auto (Urine sed) [#/Area] 10-19 [HPF] 0-4 [facility] Automated urine hyaline cast s count (number/volume)Ordered By: Misbah Greenwood on 11-12-2021 Hyaline casts Auto (U) [#/Vol] Rare [LPF] 0-1 [facility] Basophils Auto (Bld) [#/Vol] Ordered By: Misbah Greenwood on 11-12-2021 Basophils (Bld) [#/Vol] 0.1 10*3/uL 0.0-0.2 [facility] Basophils/100 WBC Auto (Bld) Ordered By: Misbah Greenwood on 11-12-2021 Basophils/100 WBC (Bld) 0.7 % . [facility] Bilirubin Test strip Ql (U)O rdered By: Misbah Greenwood on 11-12-2021 Bilirubin Ql (U) Negative Negative [facility] Blood hemoglobin measurement (mass/volume)Ordered By: Misbah Greenwood on 11-12-2021 Hemoglobin (Bld) [Mass/Vol] 10.8 g/dL 11.8-15.4 [facility] Blood leukocytes automated c ount (number/volume)Ordered By: Misbah Greenwood on 11-12-2021 WBC (Bld) [#/Vol] 12.3 10*3/uL 4.5-11.0 [facility] Body fluid albumin measureme nt (mass/volume)Ordered By: Misbah Greenwood on 11-12-2021 Albumin (Body fld) [Mass/Vol] 3.7 g/dL 3.2-5.5 [facility] COVID-19 SOFIAOrdered By: Kee Greenwood on 11-12-2021 SARS-CoV+SARS-CoV-2 (COVID-19) Ag IA.rapid Ql (Resp) Negative Negative [facility] Comment on above: This is a duplicate Johana SARS Antigen (DEEDEE) result to be used for statistical tracking purpose only. Casts typing in urine sedime nt by light microscopyOrdered By: Misbah Greenwood on 11-12-2021 Casts LM Nom (Urine sed) None seen [LPF] None Seen [facility] Color Auto (U)Ordered By: Kee Greenwood on 11-12-2021 Color (U) Yellow Yellow [facility] Creatinine and Glomerular fi ltration rate.predicted panel (S/P/Bld)Ordered By: Misbah Greenwood on 11-12-2021 Creatinine [Mass/Vol] 1.58 mg/dL 0.44-1.03 [facility] Eosinophils Auto (Bld) [#/Vo l]Ordered By: Misbah Greenwood on 11-12-2021 Eosinophils (Bld) [#/Vol] 0.2 10*3/uL 0.0-0.45 [facility] Eosinophils/100 WBC Auto (Bl d)Ordered By: Misbah Greenwood on 11-12-2021 Eosinophils/100 WBC (Bld) 1.4 % . [facility] Erythrocyte distribution wid th Auto (RBC) [Ratio]Ordered By: Misbah Greenwood on 11-12-2021 Erythrocyte distribution width (RBC) [Ratio] 13.7 % 11.9-15.3 [facility] Estimated glomerular filtrat ion rate (GFR) non- AmericanOrdered By: Misbah Greenwood on 11-12-2021 GFR/1.73 sq M.predicted among non-blacks MDRD (S/P/Bld) [Vol rate/Area] 32 mL/Min [facility] Globulin Calc (S) [Mass/Vol] Ordered By: Misbah Greenwood on 11-12-2021 Globulin (S) [Mass/Vol] 3.0 g/dL [facility] Hematocrit Auto (Bld) [Volum e fraction]Ordered By: Misbah Greenwood on 11-12-2021 Hematocrit (Bld) [Volume fraction] 32.4 % 34.0-46.4 [facility] Ketones Auto test strip (U) [Mass/Vol]Ordered By: Misbah Greenwood on 11-12-2021 Ketones (U) [Mass/Vol] Negative Negative [facility] Laboratory - Chemistry and C hemistry - challengeOrdered By: Misbah Greenwood on 11-12-2021 Lipase [Catalytic activity/Vol] 44.0 U/L 22-51 [facility] Laboratory - Hematology and Cell countsOrdered By: Misbah Greenwood on 11-12-2021 Nucleated RBC/100 WBC (Bld) [Ratio] 0.0 % 0-0.5 [facility] Lymphocytes Auto (Bld) [#/Vo l]Ordered By: Misbah Greenwood on 11-12-2021 Lymphocytes (Bld) [#/Vol] 0.9 10*3/uL 1.00-4.8 [facility] Lymphocytes/100 WBC Auto (Bl d)Ordered By: Misbah Greenwood on 11-12-2021 Lymphocytes/100 WBC (Bld) 7.5 % . [facility] MCH Auto (RBC) [Entitic mass ]Ordered By: Misbah Greenwood on 11-12-2021 MCH (RBC) [Entitic mass] 29.9 pg 24.7-34.3 [facility] MCHC Auto (RBC) [Mass/Vol]Or dered By: Misbah Greenwood on 11-12-2021 MCHC (RBC) [Mass/Vol] 33.2 g/dL 32.0-35.0 [facility] MCV Auto (RBC) [Entitic vol] Ordered By: Misbah Greenwood on 11-12-2021 MCV (RBC) [Entitic vol] 90.0 fL 80-100 [facility] Monocytes Auto (Bld) [#/Vol] Ordered By: Misbah Greenwood on 11-12-2021 Monocytes (Bld) [#/Vol] 1.0 10*3/uL 0.0-0.8 [facility] Monocytes/100 WBC Auto (Bld) Ordered By: Misbah Greenwood on 11-12-2021 Monocytes/100 WBC (Bld) 8.3 % . [facility] Neutrophils Auto (Bld) [#/Vo l]Ordered By: Misbah Greenwood on 11-12-2021 Neutrophils (Bld) [#/Vol] 10.1 10*3/uL 1.8-7.7 [facility] Neutrophils/100 WBC Auto (Bl d)Ordered By: iMsbah Greenwood on 11-12-2021 Neutrophils/100 WBC (Bld) 82.1 % . [facility] Nitrite Test strip Ql (U)Ord ered By: Misbah Greenwood on 11-12-2021 Nitrite Ql (U) Negative Negative [facility] No Panel InformationOrdered By: Misbah Greenwood on 11-12-2021 Estimated GFR () 38 mL/Min [facility] Comment on above: GFR estimated refere nce range: According to KDOQI guidelines, <60 ml/min/1.73m2 is sufficient to diagnose a patient with chronic kidney disease. Pharmacy Creatinine Clearance (Chem 20.67 [facility] SARS Antigen (LFIA) [facility] Platelet mean volume Auto (B ld) [Entitic vol]Ordered By: Misbah Greenwood on 11-12-2021 Platelet mean volume (Bld) [Entitic vol] 7.6 fL 6.3-10.7 [facility] Platelets Auto (Bld) [#/Vol] Ordered By: Misbah Greenwood on 11-12-2021 Platelets (Bld) [#/Vol] 379 10*3/uL 150-450 [facility] Protein Auto test strip (U) [Mass/Vol]Ordered By: Misbah Greenwood on 11-12-2021 Protein (U) [Mass/Vol] Trace mg/dL Negative [facility] Protein [Mass/volume] in Ser um or PlasmaOrdered By: Misbah Greenwood on 11-12-2021 Protein [Mass/Vol] 6.7 g/dL 6.1-7.9 [facility] RBC Auto (Bld) [#/Vol]Ordere d By: Misbah Greenwood on 11-12-2021 RBC (Bld) [#/Vol] 3.59 10*6/uL 3.60-5.00 [facility] Serum or plasma alanine villanueva otransferase measurement without P-5'-P (enzymatic activiOrdered By: Misbah Greenwood on 11-12-2021 ALT No additional P-5'-P [Catalytic activity/Vol] 13 U/L 10-60 [facility] Serum or plasma albumin/glob ulin mass ratioOrdered By: Misbah Greenwood on 11-12-2021 Albumin/Globulin [Mass ratio] 1.2 {ratio} [facility] Serum or plasma alkaline ladarius sphatase measurement (enzymatic activity/volume)Ordered By: Misbah Greenwood on 11-12-2021 ALP [Catalytic activity/Vol] 74 U/L 32-92 [facility] Serum or plasma aspartate am inotransferase measurement (enzymatic activity/volume)Ordered By: Misbah Greenwood on 11-12-2021 AST [Catalytic activity/Vol] 17 U/L 10-42 [facility] Serum or plasma calcium dennis urement (mass/volume)Ordered By: Misbah Greenwood on 11-12-2021 Calcium [Mass/Vol] 9.5 mg/dL 8.2-10.2 [facility] Serum or plasma chloride brea surement (moles/volume)Ordered By: Misbah Greenwood on 11-12-2021 Chloride [Moles/Vol] 103 mmol/L 95-[address] [facility] Serum or plasma glucose dennis urement (mass/volume)Ordered By: Misbah Greenwood on 11-12-2021 Glucose [Mass/Vol] 118 mg/dL 70-100 [facility] Comment on above: ADA recommended refe rence range Random Glucose Reference Range is dependent on time and content of last meal. Glucose of more than 200 mg/dL in a nonstressed, ambulatory subject supports the diagnosis of Diabetes Mellitus. Serum or plasma potassium me asurement (moles/volume)Ordered By: Misbah Greenwood on 11-12-2021 Potassium [Moles/Vol] 3.7 mmol/L 3.5-5.1 [facility] Serum or plasma sodium measu rement (moles/volume)Ordered By: Misbah Greenwood on 11-12-2021 Sodium [Moles/Vol] 135 mmol/L 136-146 [facility] Serum or plasma total biliru bin measurement (mass/volume)Ordered By: Misbah Greenwood on 11-12-2021 Bilirubin [Mass/Vol] 0.3 mg/dL 0.3-1.[address] [facility] Serum or plasma total carbon dioxide measurement (moles/volume)Ordered By: Misbah Greenwood on 11-12-2021 CO2 [Moles/Vol] 19.9 mmol/L 22.0-30.0 [facility] Serum or plasma urea nitroge n measurement (mass/volume)Ordered By: Misbah Greenwood on 11-12-2021 Urea nitrogen [Mass/Vol] 21 mg/dL 9-23 [facility] Specific gravity Auto test s trip (U) [Rel density]Ordered By: Misbah Greenwood on 11-12-2021 Specific gravity (U) [Rel density] 1.012 1.001-1.03 0 [facility] Squamous epithelial cells de tection in urine sediment by light microscopyOrdered By: Misbah Greenwood on 11-12-2021 Epithelial cells.squamous LM Ql (Urine sed) 5-9 [HPF] 0-2 [facility] Urine bacteria detection by automated methodOrdered By: Misbah Greenwood on 11-12-2021 Bacteria Auto Ql (U) None seen None Seen [facility] Urine clarity by refractomet ry automatedOrdered By: Misbah Greenwood on 11-12-2021 Clarity Refractometry automated (U) Clear Clear [facility] Urine glucose measurement by automated test strip (mass/volume)Ordered By: Misbah Greenwood on 11-12-2021 Glucose Auto test strip (U) [Mass/Vol] Normal mg/dL Normal [facility] Urine hemoglobin detection b y automated test stripOrdered By: Misbah Greenwood on 11-12-2021 Hemoglobin Auto test strip Ql (U) Negative Negative [facility] Urine leukocyte esterase det ection by automated test stripOrdered By: Misbah Greenwood on 11-12-2021 Leukocyte esterase Auto test strip Ql (U) 1+ Negative [facility] Urine sediment renal epithel ial cell count by microscopy (number/high power field)Ordered By: Misbah Greenwood on 11-12-2021 Epithelial cells.renal LM.HPF (Urine sed) [#/Area] None seen [HPF] 0-1 [facility] Urobilinogen Auto test strip (U) [Mass/Vol]Ordered By: Misbah Greenwood on 11-12-2021 Urobilinogen (U) [Mass/Vol] Normal mg/dL Normal [facility] pH Auto test strip (U)Ordere d By: Misbah Greenwood on 11-12-2021 pH (U) 5.5 [pH] 5.0-9.0 [facility] SCREENING MAMMOGRAM W/DANIEL, BILATERAL*on 10-18-2021 SCREENING [...] VERY IMPORTANT TO YOUR HEALTH. THE CURRENT [employer] GUIDELINES RECOMMEND ANNUAL MAMMOGRAPHY BEGINNING AT AGE 40. THIS FACILITY UTILIZES A REMINDER SYSTEM TO ENSURE ALL PATIENTS RECEIVE A REMINDER NOTIFICATION AT THE APPROPRIATE TIME BASED ON THE RECOMMENDATIONS OF THIS EXAM. BOARD CERTIFIED RADIOLOGIST. ACCREDITED BY THE [facility] AND FDA. Report reported and signed by Claudia Hinson on 10/21/2021 1432 Normal [facility] CARDIAC STRESS/REST INJE CTIONon 08-28-2021 [facility] CARDIAC STRESS/REST INJECTION Addendum Begins Patient [...] PERFUSION STRESS TEST WITH LEXISCAN Performing facility: [facility], [address] [place] [address], [address], [address] Provider: Mary Ayala MD PCP: Dr. Cruz Supervising provider: Mary Ayala MD INDICATION: CAD; SOBOE Nonischemic cardiomyopathy HISTORY: Gender: F; Age: 81 y/o ; Height: 149.8 cm; Weight: 52.7 kg. High Cholesterol; HTN; SOB; Denies smoking. COMPARISON: Previous nuclear testing completed [id number] at [facility]. ACCESSION NUMBER(S): [id number]; [id number]; [id number] ORDERING CLINICIAN: MARY AYALA TECHNIQUE: ONE DAY [...] Electronically signed by: MARK ZAMBRANO MD Normal [facility] No Panel Informationon 08-[address] [facility] [address] DO Work Phone: [facility] DO Work Phone: [...] signing my name below, I, Delmy Alcantara LPNScribe, attest that this documentation has been prepared [...] 07Jun2021 03:06PM Heart Rate60, L Brachial Artery Pyhmsyae558, LUE, Sitting Xziqhmgdo42, LUE, Sitting Height4 ft 11 in Oyggtv998 lb BMI Kysuzhbewc33.61 kg/m2 BSA Calculated1.41 Tobacco Useb) No PHQ-2 [...] Cardiovascular: carotid (more content not included)... Normal [facility] Tobacco Screening.on 022 Adult depression screening assessment No [facility] DO Work Phone: Fall risk assessment a) No falls within the last year [facility] DO Work Phone: Tobacco use status [facility] b) No [facility] DO Work Phone: Tobacco Screening.on 021 Fall risk assessment a) No falls within the last year [facility] Nuzhat y 250 DO Work Phone: Tobacco use status [facility] b) No -[facility] 250 DO Work Phone: No Panel Informationon 09-24 [facility] [place] 450 DO Work Phone: [email or web address]?={[email or web address] [id number] ACF} [facility] SJW 450 DO [...] mcg) oral capsule 1 cap(s) orally Normal [facility] Coronavirus 2019 RNA by PCR, Screening Asymptomticon 09-21-2020 Coronavirus 2019 RNA by PCR, Screening Asymptomtic Not detected Normal See Below [facility] Work Phone: Comment on above: [...] make patient management decisions.Fact sheet for providers: https://www.fda.gov/media/182456/downloadFact sheet for patients: https://www.fda.gov/media/726225/downloadThis test has received FDA Emergency Use Authorization (EUA) and has been verified by [facility] ([facility]). This test is only authorized for the duration of time that circumstances exist to justify the authorization of the emergency use of in vitro diagnostic tests for the detection of SARS-CoV-2 virus and/or diagnosis of COVID-19 infection under section 564(b)(1) of the Act, 21 U.S.C. 360bbb-3(b)(1), unless the authorization is terminated or revoked sooner. [facility] is certified under CLIA-88 as qualified to perform high complexity testing. Testing is performed in the [facility] laboratories located at [address] [place] [address]. ED NOTEon 04-08-2019 ED NOTE HNO ID: [id number] Author: Maria Teresa GarnicaRn) LINA Oliver Service: ? Author Type: Registered Nurse Type: ED Notes Filed: 04/08/2019 7:07 PM Note Text: Patient discharged per MD orders, RN at bedside to explain and review s/sx of worsening condition and to return to ED if worsening s/sx develop. Follow up care and questions answered with patient/family. [facility] ED NOTE HNO ID: [id number] Author: Lenore GarnicaRn) João RN Service: ? Author Type: Registered Nurse Type: ED Notes Filed: 04/08/2019 5:16 PM Note Text: Bed: ED-11H Expected date: Expected time: Means of arrival: Comments: [facility] ED NOTE HNO ID: [id number] Author: Maribell (MedicRebecca Guzman Service: ? 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 Went to urgent care and her BP was high so sent here. [facility] ED PROV NOTEon 04-08-2019 ED PROV NOTE HNO ID: [id number] Author: Elenita Castillo Service: Emergency Medicine Author Type: Physician Production Troubleshooter Type: ED Provider Notes Filed: 04/09/2019 3:31 [...] of the extremities. History provided by: Patient nurse charge rn used: No PAST MEDICAL HISTORY Diagnosis Date - Asthma - CAD (coronary artery disease) - Chronic cough due to asthma - Dyslipidemia - GERD (gastroesophageal reflux disease) - Hypertension - [place], old - MRSA infection - Myocarditis (HCC) PAST SURGICAL HISTORY Procedure Laterality Date - BACK SURGERY HX - CHOLECYSTECTOMY - COLONOSCOPY 2014 -was told she does not need anothe one-done in [place] - EGD 08/17/2018 /Normal - VALENTIN W/WO [...] or wounds Nose: Nose normal. Mouth/Throat: Lips: [place]. Mouth: Mucous membranes are moist. Pharynx: Oropharynx [...] SIGNATURE: STEVIE Solano Pa-C 04/09/19 1531 Normal [facility] Vital Signs Date Time Vital Sign Value Performing Clinician Facility 05-07-2023 09:00-0500 Body mass index (BMI) [Ratio] 22.38 kg/m2 [employer] Work Phone: [facility] 05-07-2023 09:00-0500 Body weight 50.26 kg [employer] Work Phone: [facility] 05-07-2023 09:00-0500 Diastolic blood pressure 68 mm[Hg] [employer] Work Phone: [facility] 05-07-2023 09:00-0500 Heart rate 81 /min [employer] Work Phone: [facility] 05-07-2023 09:00-0500 SaO2% (BldA) [Mass fraction] 99 % [employer] Work Phone: [facility] 05-07-2023 09:00-0500 Systolic blood pressure 116 mm[Hg] [employer] Work Phone: [facility] 02-11-2023 09:05-0500 Body height 152.4 cm Eliecer Isaac Other [employer] Other 02-11-2023 09:05-0500 Body mass index (BMI) [Ratio] 20.5 kg/m2 Eliecer Gray Other [employer] Other 02-11-2023 09:05-0500 Body temperature 97.7 [degF] Eliecer Gray Other [employer] Other 02-11-2023 09:05-0500 Body weight 47.63 kg Eliecer Gray Other [employer] Other 02-11-2023 09:05-0500 Diastolic blood pressure 93 mm[Hg] Eliecer Gray Other [employer] Other 02-11-2023 09:05-0500 Respiratory rate 18 /min Eliecer Gray Other [employer] Other 02-11-2023 09:05-0500 SaO2% (BldA) [Mass fraction] 97 % Eliecer Gray Other [employer] Other 02-11-2023 09:05-0500 Systolic blood pressure 166 mm[Hg] Eliecer Gray Other [employer] Other 02-02-2023 11:06-0400 Body height 142.2 cm Nick Wasserman MD Work Phone: [facility] 02-02-2023 11:06-0400 Body mass index (BMI) [Ratio] 24.21 kg/m2 Nick Wasserman MD Work Phone: [facility] 02-02-2023 11:06-0400 Body weight 48.99 kg Nick Wasserman MD Work Phone: [facility] 02-02-2023 11:06-0400 Diastolic blood pressure 58 mm[Hg] Nick Wasserman MD Work Phone: [facility] 02-02-2023 11:06-0400 Heart rate 60 /min Nick Wasserman MD Work Phone: [facility] 02-02-2023 11:06-0400 Systolic blood pressure 138 mm[Hg] Nick Wasserman MD Work Phone: [facility] 08-30-2022 10:55-0400 Body height 152.4 cm Luis Nolasco Other [employer] Other 08-30-2022 10:55-0400 Body mass index (BMI) [Ratio] 20.7 kg/m2 Luis Nolasco Other [employer] Other 08-30-2022 10:55-0400 Body temperature 97.8 [degF] Luis Nolasco Other [employer] Other 08-30-2022 10:55-0400 Body weight 48.08 kg Luis Nolasco Other [employer] Other 08-30-2022 10:55-0400 Diastolic blood pressure 70 mm[Hg] Luis Nolasco Other [employer] Other 08-30-2022 10:55-0400 Respiratory rate 18 /min Luis Nolasco Other [employer] Other 08-30-2022 10:55-0400 SaO2% (BldA) [Mass fraction] 97 % Luis Nolasco Other [employer] Other 08-30-2022 10:55-0400 Systolic blood pressure 123 mm[Hg] Luis Nolasco Other [employer] Other 03-06-2022 15:48-0500 Diastolic blood pressure 72 mm[Hg] Adriana Changaver-Taylor Work Phone: [facility] 250 DO Work Phone: 03-06-2022 15:48-0500 Systolic blood pressure 136 mm[Hg] Adriana D Tirado-Taylor Work Phone: [facility] 250 DO Work Phone: 03-06-2022 15:25-0500 Body height 144.78 cm Adriana D Tirado-Taylor Work Phone: [facility] 250 DO Work Phone: 03-06-2022 15:25-0500 Body mass index (BMI) [Ratio] 23.37 kg/m2 Adriana D Tirado-Taylor Work Phone: [facility] 250 DO Work Phone: 03-06-2022 15:25-0500 Body surface area Derived from formula 1.38 m2 Adriana D Tirado-Taylor Work Phone: [facility] 250 DO Work Phone: 03-06-2022 15:25-0500 Body weight 48.99 kg Adriana D Tirado-Taylor Work Phone: [facility] 250 DO Work Phone: 03-06-2022 15:25-0500 Diastolic blood pressure 64 mm[Hg] Adriana D Tirado-Taylor Work Phone: [facility] 250 DO Work Phone: 03-06-2022 15:25-0500 Heart rate 66 /min Adriana D Tirado-Taylor Work Phone: [facility] 250 DO Work Phone: 03-06-2022 15:25-0500 Systolic blood pressure 154 mm[Hg] Adriana D Tirado-Taylor Work Phone: [facility] 250 DO Work Phone: 01-17-2022 10:25-0400 Diastolic blood pressure 81 mm[Hg] Govea SALAM [facility] 01-17-2022 10:25-0400 Heart rate 55 /min Govea SALAM [facility] 01-17-2022 10:25-0400 Respiratory rate 14 /min Govea SALAM [facility] 01-17-2022 10:25-0400 SaO2% (BldA) [Mass fraction] 98 % Govea SALAM [facility] 01-17-2022 10:25-0400 Systolic blood pressure 158 mm[Hg] Govea SALAM [facility] 01-17-2022 10:10-0400 Diastolic blood pressure 64 mm[Hg] Govea SALAM [facility] 01-17-2022 10:10-0400 Heart rate 56 /min Govea SALAM [facility] 01-17-2022 10:10-0400 Respiratory rate 14 /min Govea SALAM [facility] 01-17-2022 10:10-0400 SaO2% (BldA) [Mass fraction] 100 % Govea SALAM [facility] 01-17-2022 10:10-0400 Systolic blood pressure 141 mm[Hg] Govea SALAM [facility] 01-17-2022 10:05-0400 Diastolic blood pressure 60 mm[Hg] Govea SALAM [facility] 01-17-2022 10:05-0400 Heart rate 57 /min Govea SALAM [facility] 01-17-2022 10:05-0400 Respiratory rate 14 /min Govea SALAM [facility] 01-17-2022 10:05-0400 SaO2% (BldA) [Mass fraction] 98 % Govea SALAM [facility] 01-17-2022 10:05-0400 Systolic blood pressure 131 mm[Hg] Govea SALAM [facility] 01-17-2022 09:56-0400 Body temperature 96.98 [degF] Govea SALAM [facility] 01-17-2022 07:50-0400 Blood Pressure Location Govea SALAM [facility] 01-17-2022 07:50-0400 Body temperature 98.06 [degF] Jeferson WATKINSAM [facility] 01-10-2022 10:48-0400 Diastolic blood pressure 64 mm[Hg] Shi Sundeep [facility] 01-10-2022 10:48-0400 Mean blood pressure 95 mm[Hg] Shi Sundeep [facility] 01-10-2022 10:48-0400 Systolic blood pressure 158 mm[Hg] Shi Sundeep [facility] 01-10-2022 10:44-0400 Blood Pressure Location Shi Sundeep [facility] 01-10-2022 10:44-0400 Body temperature 97.34 [degF] Shi Sundeep [facility] 01-10-2022 10:44-0400 Diastolic blood pressure 73 mm[Hg] Shi Sundeep [facility] 01-10-2022 10:44-0400 Heart rate 51 /min Shi Urbano [facility] 01-10-2022 10:44-0400 Systolic blood pressure 167 mm[Hg] Shi Urbano [facility] 11-13-2021 00:00-0400 Diastolic blood pressure 68 mm[Hg] DO Adriana Tirado-Taylor Work Phone: [facility] 11-13-2021 00:00-0400 Heart rate 62 /min DO Adriana Tirado-Taylor Work Phone: [facility] 11-13-2021 00:00-0400 Respiratory rate 18 /min DO Adriana Tirado-Taylor Work Phone: [facility] 11-13-2021 00:00-0400 SaO2% (BldA) [Mass fraction] 100 % DO Adriana Tirado-Taylor Work Phone: [facility] 11-13-2021 00:00-0400 Systolic blood pressure 133 mm[Hg] DO Adriana Tirado-Taylor Work Phone: [facility] 11-12-2021 18:52-0400 Body height 144.78 cm DO Adriana Tirado-Taylor Work Phone: [facility] 11-12-2021 18:52-0400 Body temperature 98.1 [degF] DO Adriana Tirado-Taylor Work Phone: [facility] 11-12-2021 18:52-0400 Body weight 45.35 kg DO Adriana Tirado-Taylor Work Phone: [facility] 08-29-2021 10:00-0400 Body height 152.4 cm Clement Madrid II Other [employer] Other 08-29-2021 10:00-0400 Body mass index (BMI) [Ratio] 20.5 kg/m2 Clement Diallole II Other [employer] Other 08-29-2021 10:00-0400 Body weight 47.63 kg Clement Diallole II Other [employer] Other 08-28-2021 00:00-0400 65 1 Adriana Murphy Tirado-Taylor Work Phone: [facility] 250 DO Work Phone: Comment on above: [id number] 08-25-2021 12:25-0400 Body height 152.4 cm Eliecer Gray Other [employer] Other 08-25-2021 12:25-0400 Body mass index (BMI) [Ratio] 20.5 kg/m2 Eliecer Gray Other [employer] Other 08-25-2021 12:25-0400 Body temperature 97 [degF] Eliecer Gray Other [employer] Other 08-25-2021 12:25-0400 Body weight 47.63 kg Eliecer Gray Other [employer] Other 08-25-2021 12:25-0400 Diastolic blood pressure 67 mm[Hg] Eliecer Isaac Other [employer] Other 08-25-2021 12:25-0400 Respiratory rate 16 /min Eliecer Gray Other [employer] Other 08-25-2021 12:25-0400 SaO2% (BldA) [Mass fraction] 96 % Eliecer Gray Other [employer] Other 08-25-2021 12:25-0400 Systolic blood pressure 141 mm[Hg] Eliecer Gray Other [facility] [employer] Other 06-07-2021 15:06-0500 Body height 149.86 cm Adriana D Tirado-Taylor Work Phone: [facility] 250 DO Work Phone: 06-07-2021 15:06-0500 Body mass index (BMI) [Ratio] 21.61 kg/m2 Adriana D Tirado-Taylor Work Phone: [facility] 250 DO Work Phone: 06-07-2021 15:06-0500 Body surface area Derived from formula 1.41 m2 Adriana D Tirado-Taylor Work Phone: [facility] 250 DO Work Phone: 06-07-2021 15:06-0500 Body weight 48.54 kg Adriana D Tirado-Taylor Work Phone: [facility] 250 DO Work Phone: 06-07-2021 15:06-0500 Diastolic blood pressure 62 mm[Hg] Adriana D Tirado-Taylor Work Phone: [facility] 250 DO Work Phone: 06-07-2021 15:06-0500 Heart rate 60 /min Adriana D Tirado-Taylor Work Phone: [facility] 250 DO Work Phone: 06-07-2021 15:06-0500 Systolic blood pressure 125 mm[Hg] Adriana D Tirado-Taylor Work Phone: [facility] 250 DO Work Phone: 03-05-2021 10:47-0500 Body height 149.86 cm Adriana D Tirado-Taylor Work Phone: [facility] 250 DO Work Phone: 03-05-2021 10:47-0500 Body mass index (BMI) [Ratio] 22.02 kg/m2 Adriana Katherine Tirado-Taylor Work Phone: [facility] 250 DO Work Phone: 03-05-2021 10:47-0500 Body surface area Derived from formula 1.42 m2 Adriana Katherine Tirado-Taylor Work Phone: [facility] 250 DO Work Phone: 03-05-2021 10:47-0500 Body weight 49.44 kg Adriana Katherine Tirado-Taylor Work Phone: [facility] 250 DO Work Phone: 03-05-2021 10:47-0500 Diastolic blood pressure 66 mm[Hg] Adriana Murphy Tirado-Taylor Work Phone: [facility] 250 DO Work Phone: 03-05-2021 10:47-0500 Heart rate 59 /min Adriana Murphy Tirado-Taylor Work Phone: [facility] 250 DO Work Phone: 03-05-2021 10:47-0500 Systolic blood pressure 127 mm[Hg] Adriana Katherine Tirado-Taylor Work Phone: [facility] 250 DO Work Phone: Encounters Encounter Date Encounter Type Care Provider Facility Start: 07-15-2023 End: 07-15-2023 ambulatory KASIE LONG Not Available Start: 06-01-2023 End: 06-01-2023 ambulatory DO Adriana Tirado-Taylor Work Phone: [facility] Work Phone: Start: 06-01-2023 End: 06-01-2023 Patient encounter procedure DO Adriana Tirado-Taylor Work Phone: [facility] [place] [facility] Work Phone: Start: 05-07-2023 End: 05-07-2023 ambulatory ADRIANA D TIRADO-EMERY Not Available Start: 05-07-2023 End: 05-07-2023 Office outpatient visit 15 minutes Adriana D Tirado-Taylor DO Work Phone: [facility] Comment on above: Osteoporosis, post-m enopausal (CMS/HCC) (Primary Dx) Start: 04-16-2023 End: 04-17-2023 ambulatory ADRIANA D TIRADO-EMERY Not Available Start: 04-10-2023 End: 04-11-2023 ambulatory ADRIANA D TIRADO-EMERY Not Available Start: 03-04-2023 End: 03-04-2023 ambulatory VALENTÍN Katherine DOLCE Not Available Start: 02-18-2023 End: 02-18-2023 ambulatory ADRIANA D TIRADO-EMERY Not Available Start: 02-11-2023 Office outpatient vi sit 15 minutes Eliecer Gray [facility] [address] Start: 02-11-2023 End: 02-11-2023 ambulatory Eliecer Gray Facility:[facility] Start: 02-11-2023 End: 02-11-2023 ambulatory DO Adriana Tirado-Taylor Work Phone: [facility] Work Phone: Start: 02-11-2023 End: 02-11-2023 Departed Referred DO Adriana Tirado-Taylor Work Phone: [facility] 250 Start: 02-02-2023 End: 02-02-2023 ambulatory Adriana Tirado-Taylor Facility:[facility] Start: 02-02-2023 End: 02-02-2023 ambulatory DO Adriana Tirado-Taylor Work Phone: [facility] Work Phone: Start: 02-02-2023 End: 02-02-2023 Patient encounter procedure DO Adriana Tirado-Taylor Work Phone: [facility] [place] Work Phone: Start: 02-02-2023 End: 02-02-2023 Office outpatient visit 25 minutes Nick Wasserman MD Work Phone: [facility] Comment on above: Coronary artery dise ase involving [place] coronary artery of [place] heart without angina pectoris (Primary Dx); Essential hypertension, benign; Mixed hyperlipidemia; Nonischemic cardiomyopathy ([facility]/HCC) Start: 12-18-2022 End: 12-18-2022 ambulatory Savanna Cassidy Other [employer] Other Start: 12-18-2022 Office outpatient vi sit 15 minutes Savanna Cassidy [facility] [place] [facility] Start: 08-30-2022 End: 08-30-2022 ambulatory Luis Nolasco Other [employer] Other Start: 08-30-2022 Office outpatient vi sit 15 minutes Luis Nolasco [facility] [address] Start: 05-14-2022 Chart Update Adriana Tirado-Taylor Work Phone: [facility] 250 DO Work Phone: Start: 03-06-2022 Office outpatient vi sit 15 minutes Adriana Tirado-Taylor Work Phone: [facility] [facility] DO Work Phone: Start: 03-06-2022 ambulatory Nick Wasserman II Facility: Start: 03-03-2022 End: 03-04-2022 ambulatory Jay Power Facility:[facility] Start: 02-25-2022 ambulatory Adriana Cruz Facility: Start: 02-24-2022 End: 02-25-2022 ambulatory Jay Power Facility:[facility] Start: 02-19-2022 End: 02-19-2022 ambulatory Jay Boucherjay Facility:[facility] Start: 02-04-2022 ambulatory Adriana Delgadomorales Tirado-Taylor Facility: Start: 02-04-2022 End: 02-05-2022 ambulatory Jay Dempseyfaisaljay Facility:[facility] Start: 02-03-2022 End: 02-04-2022 ambulatory Jay Almanzar. Jannet Facility: [place] Start: 01-17-2022 End: 01-18-2022 ambulatory Jeferson COPE Facility:[facility] Start: 01-17-2022 End: 01-17-2022 Patient encounter procedure Goveascott WATKINSAM [facility] Start: 01-13-2022 End: 01-14-2022 ambulatory Shi Urbano Facility:[facility] Start: 01-10-2022 End: 01-11-2022 ambulatory Shi Urbano Facility:[facility] Start: 01-10-2022 End: 01-11-2022 ambulatory Shi Urbano Facility:[facility] Start: 01-10-2022 Rx Renewal Adriana [facility]ado[facility] Work Phone: Start: 01-10-2022 End: 01-10-2022 Patient encounter procedure Shi Urbano [facility] Start: 12-24-2021 ambulatory Adriana Tirado-Nelson Facility: Start: 11-14-2021 [facility]ulatory [facility] Start: 11-12-2021 End: 11-13-2021 Emergency department patient visit DO Adriana Tirado-Taylor Work Phone: [facility] Start: 08-30-2021 Chart Update Adriana [facility] Work Phone: Start: 08-29-2021 End: 08-29-2021 ambulatory Clement Ray II Other [employer] Other Start: 08-29-2021 Office outpatient ne w 45 minutes Clement Ray II [facility] [place] [facility] Start: 08-28-2021 ambulatory Adrianara Wise Tirado-Taylor Facility:[id number] Start: 08-25-2021 End: 08-25-2021 ambulatory Eliecer Gray Other [facility] [employer] Other Start: 08-25-2021 Office outpatient vi sit 15 minutes Eliecer Gray [facility] Start: 08-08-2021 Patient encounter procedure Adriana D Tirado-Taylor Work Phone: [facility] 600 DO Work Phone: Start: 06-07-2021 Office outpatient vi sit 25 minutes Adriana D Tirado-Taylor Work Phone: [facility] 250 DO Work Phone: Start: 06-07-2021 ambulatory Adriana Billie Tirado-Taylor Facility: Start: 03-05-2021 Office outpatient vi sit 25 minutes Adriana D Tirado-Taylor Work Phone: [facility] 250 DO Work Phone: Start: 09-28-2020 Chart Update Adriana D Tirado-Taylor Work Phone: QJ-Zidumhkvutdkqvur-F[facility] [place] 450 DO Work Phone: Start: 09-24-2020 RENNY, Provider: Vilma Salazar, Status: Pen, Time: 9:20 AM Adriana D Tirado-Taylor Work Phone: FR-Rzzkrgglajvvgofk-Qf [place] 450 DO Work Phone: Start: 09-23-2020 Chart Update Adriana D Tirado-Taylor Work Phone: FU-Msmlcarqurcuekwz-Ay cruz [place] 450 DO Work Phone: Procedures Date Procedure Procedure Detail Performing Clinician Start: 01-17-2022 Colonoscopy Jeferson COPE Comment on above: biopsies, diverticulosis Start: 11-12-2021 Computed tomography of abdomen and pelvis with contrast DO Adriana Tirado-Taylor Work Phone: Start: 07-06-2020 Esophagogastroduodenoscopy Shi diana Comment on above: Dr Brannon Arthroplasty of knee Adriana D Tirado-Taylor Work Phone: Cholecystectomy Adriana D Tirado-Taylor Work Phone: Colonoscopy Shi Urbano Comment on above: 2010 Esophagogastroduodenoscopy M taylor COPE Comment on above: normal, gastric biopsies Hysterectomy Adriana D Tirado-Taylor Work Phone: Operation on bladder Adriana D Tirado-Taylor Work Phone: Procedure on back Adriana D Tirado-Taylor Work Phone: SARS Antigen (LFIA) DO Lynnr a Tirado-Taylor Work Phone: Total colonoscopy Adriana D Tirado-Taylor Work Phone: Urine culture DO Adriana Tirado-Taylor Work Phone: Plan of Treatment Date Care Activity Detail Author Start: 12-10-2023 Medicare Annual Wellness (AWV) Medicare Annual Wellness (AWV) [facility] Start: 09-15-2023 End: 09-15-2023 Patient encounter procedure 09/15/2023 9:30 AM EDT Office Visit [facility] [address] [facility] [address] [place] [id number] Nick Wasserman MD [address] [facility] [address] [place] [address] [facility] Start: 09-08-2023 End: 09-08-2023 Patient encounter procedure 09/08/2023 8:45 AM EDT Office Visit [facility] [address] [place] [id number] Adriana Cruz, DO [address] [place] [address] [facility] Start: 06-01-2023 Pelvis X-ray XR pelvis 1-2V [facility] Start: 06-01-2023 Radiologic examinati on of knee XR knee LT 4V* [facility] Start: 06-01-2023 XR Knee - left 4 Views [facility] Start: 06-01-2023 XR Pelvis 1 or 2 Views [facility] Start: 02-11-2023 Bacteria identified in Urine by Culture [facility] Start: 02-02-2023 End: 02-03-2024 Basic metabolic 2000 panel - Serum or Plasma Basic Metabolic Panel Lab Routine Nonischemic cardiomyopathy (CMS/HCC) Expected: 02/02/2023 (Approximate), Expires: 02/03/2024 [facility] Service Area Work Phone: Comment on above: Expected: 02/02/2023 (Approximate), Expires: 02/03/2024 Start: 02-02-2023 End: 02-03-2024 CBC panel - Blood by Automated count CBC Lab Routine Nonischemic cardiomyopathy (CMS/HCC) Expected: 02/02/2023 (Approximate), Expires: 02/03/2024 [facility] Work Phone: Comment on above: Expected: 02/02/2023 (Approximate), Expires: 02/03/2024 Start: 02-02-2023 End: 02-03-2024 Lipid 1996 panel - Serum or Plasma Lipid Panel Lab Routine Mixed hyperlipidemia Expected: 02/02/2023 (Approximate), Expires: 02/03/2024 [facility] Work Phone: Comment on above: Expected: 02/02/2023 (Approximate), Expires: 02/03/2024 Start: 10-28-2022 FUV, Provider: Nick Wasserman, Status: Pen, Time: 9:40 AM FUV, Provider: Nick Wasserman, Status: Pen, Time: 9:40 AM -[facility] 250 DO Work Phone: Start: 03-06-2022 FUV, Provider: Nick Wasserman, Status: Pen, Time: 3:10 PM FUV, Provider: Nick Wasserman, Status: Pen, Time: 3:10 PM -[facility] 250 DO Work Phone: Start: 02-25-2022 COVID-19 Vaccine (4 - Moderna series) COVID-19 Vaccine (4 - Moderna series) [facility] Start: 12-24-2021 FUV, Provider: Nick Wasserman, Status: Pen, Time: 11:20 AM FUV, Provider: Nick Wasserman, Status: Pen, Time: 11:20 AM -[facility] 250 DO Work Phone: Start: 08-28-2021 STRESS NUC, Provider : [place] HHVI NUCLEAR 01,[id number], Status: Pen, Time: 12:00 PM STRESS NUC, Provider: MARI HHVI NUCLEAR 01,[id number], Status: Pen, Time: 12:00 PM -[facility] 600 DO Work Phone: Start: 06-07-2021 FUV, Provider: Nick Wasserman, Status: Pen, Time: 3:10 PM FUV, Provider: Nick Wasserman, Status: Pen, Time: 3:10 PM -[facility] 250 DO Work Phone: Start: 11-23-2020 VIRNPVFELICIANOE, Provider : Estefanía Iyer, Status: Pen, Time: 9:30 AM VIRNPVHOME, Provider: Estefanía Iyer, Status: Pen, Time: 9:30 AM [facility] DO Work Phone: Start: 1962 DTaP/Tdap/Td Vaccine s (1 - Tdap) DTaP/Tdap/Td Vaccines (1 - Tdap) [facility] Start: 1940 Lipid panel Lipid Panel [facility] Start: 1940 Medicare Annual Wellness Visit Medicare Annual Wellness Visit (AWV) [facility] Start: 1940 Screening for osteoporosis Bone Density Scan [facility] Patient Education Dehydration, Adult (DC) [facility] Work Phone: Patient referral [facility] Work Phone: Immunizations Immunization Date Immunization Notes Care Provider Sheryl demarco 01-16-2023 Influenza, Seasonal, Quadrivalent, Adjuvanted Nick Wasserman MD Work Phone: [facility] 01-11-2022 Fluzone High-Dose Quadrivalent 0.7 ML Intramuscular Suspension Prefilled Syringe Adriana D Tirado-Taylor Work Phone: [facility] [employer] 250 DO Work Phone: 12-31-2021 Moderna Bivalent Booster Vaccination Adriana Tirado-Taylor DO Work Phone: [facility] 12-31-2021 Pfizer COVID-19 Vac Bivalent 30 MCG/0.3ML Intramuscular Suspension Adriana D Tirado-Taylor Work Phone: [facility] [employer] 250 DO Work Phone: 10-18-2021 Prevnar 20 0.5 ML Intramuscular Suspension Prefilled Syringe Adriana D Tirado-Taylor [facility]: [facility] DO Work Phone: 04-03-2021 Moderna COVID-19 Vaccine 100 MCG/0.5ML Intramuscular Suspension Adriana D Tirado-Taylor Work Phone: [facility] [employer] 250 DO Work Phone: 02-26-2021 influenza, high dose seasonal, preservative-free Adriana D Tirado-Taylor Work Phone: [facility] 250 DO Work Phone: 05-30-2020 Moderna COVID-19 Vaccine 100 MCG/0.5ML Intramuscular Suspension Adriana D Tirado-Taylor Work Phone: [facility] Comment on above: Reason for Medicatio n: Other (see comment) 05-07-2020 Moderna SARS-CoV-2 Vaccination Nick Wasserman MD Work Phone: [facility] Work Phone: 05-02-2020 Moderna COVID-19 Vaccine 100 MCG/0.5ML Intramuscular Suspension Adriana D Tirado-Taylor Work Phone: [facility] Comment on above: Reason for Medicatio n: Other (see comment) 04-02-2020 zoster vaccine recombinant Adriana D Tirado-Taylor Work Phone: [facility] 250 DO Work Phone: 02-01-2020 zoster vaccine recombinant Adriana D Tirado-Taylor Work Phone: [facility] 12-30-2019 Fluzone High-Dose Quadrivalent 0.7 ML Intramuscular Suspension Prefilled Syringe Adriana D Tirado-Taylor Work Phone: [facility] 01-04-2019 influenza, high dose seasonal, preservative-free Adriana D Tirado-Taylor Work Phone: [facility] 12-18-2017 influenza, high dose seasonal, preservative-free Adriana D Tirado-Taylor Work Phone: [facility] 11-18-2015 pneumococcal polysaccharide vaccine, 23 valent Adriana Tirado-Taylor DO Work Phone: [facility] NEGATED: Highlighted row has not occurred!01-10-2022 influenza virus vaccine, unspecified formulation Shi Urbano [facility] Payers Date Payer Category Payer Self-pay [id number] 2022 Medicare [id number] 2020 Private Health Insurance [id number] 2019 Unknown 2019 Unknown [id number] 2.16. 840.1.034599. 1942 Unknown [id number] 2.16.8 40.1.529286.3.579.2.727 1942 Unknown [id number] 2.16.8 40.1.196518.3.579.2.727 1942 Unknown [id number] 2.16.8 40.1.810624.3.579.2.727 1942 Unknown [id number] 2.16.8 40.1.701574.3.579.2.727 1942 Unknown [id number] 2.16.8 40.1.889901.3.579.2.727 1942 Unknown [id number] 2.16.8 40.1.851070.3.579.2.727 1942 Unknown [id number] 2.16.8 40.1.311100.3.579.2.727 1942 Unknown [id number] 2.16.8 40.1.673580.3.579.2.727 1942 Unknown [id number] 2.16.8 40.1.154008.3.579.2.727 1942 Unknown [id number] 2.16.8 40.1.372832.3.579.2.727 1942 Unknown [id number] 2.16. 840.1.962148.3.579.2.356 1942 Unknown [id number] 2.16. 840.1.684568.3.579.2.356 1942 Unknown [id number] 2.16. 840.1.022393.3.579.2.356 1942 Unknown [id number] 2.16. 840.1.641151.3.579.2.356 1942 Unknown [id number] 2.16. 840.1.667986.3.579.2.356 1942 Unknown [id number] 2.16. 840.1.094988.3.579.2.356 1942 Unknown [id number] 2.16.8 40.1.686527.3.579.2.1244 1942 Unknown [id number] 2.16.84 0.1.949448.3.579.2.1259 1942 Unknown [id number] 2.16.84 0.1.693327.3.579.2.1259 1942 Unknown [id number] 2.16.84 0.1.905456.3.579.2.1259 1942 Unknown [id number] 2.16.84 0.1.799308.3.579.2.1259 1942 Unknown [id number] 2.16.84 0.1.466622.3.579.2.1259 1942 Unknown [id number] 2.16.840 .1.313277.3.579.2.1259 1942 Unknown [id number] 2.16.840. 1.699727.3.579.2.1259 Medicare [id number] Medicare Medicare [id number] Unknown [id number] 2.16.8 40.1.896535.3.579.2.531 Unknown [id number] 2.16.8 40.1.142819.3.579.2.531 Social History Date Type Detail Facility Start: 12-09-2022 End: 02-02-2023 Daily caffeine consumption Daily caffeine consumption [facility] Comment on above: tea and a dr. dunbar ; Start: 12-09-2022 End: 02-02-2023 Sex Assigned At [employer] Other Start: 11-12-2021 End: 02-11-2023 Tobacco smoking status NHIS Never smoked tobacco (finding) [facility] Start: 1940 Sex Assigned At Female F [facility] Tobacco smoking status Never [facility] Start: 10-16-2022 End: 02-02-2023 Tobacco use and exposure Smokeless tobacco non-user [facility] Work Phone: Start: 02-02-2023 Alcohol intake Lifetime non-d arcelia (finding) [facility] Work Phone: Start: 1940 [facility]: Start: 01-23-2023 End: 02-02-2023 Exposure to SARS-CoV-2 (event) Not sure [facility] Start: 05-07-2023 Alcohol intake Current drinke r [...] Assessment Result Facility 01-17-2022 Functional Status N/A [facility] 01-10-2022 Functional Status N/A [facility] Clinical Notes 08-25-2021 to 05-07-2023 Adriana Cruz, DO - 05/07/2023 9:24 PM CHRISTIANcaesar Cruz, DO - 05/07/2023 9:00 AM ESTPatient Instructions Note Date & Type Note Facility 05-07-2023 History of Presen t illness Narrative Associated Problem(s): Osteoporosis, post-menopausal ([facility]) Reviewed results of DEXA and how to [...] daily with a meal; Certain patients require 6030-8693 international units daily and in patients deficient [...] bones. Studies show approximately 50% of [place] men and women are vitamin D deficient [...] Anemia Chronic cough Chronic GERD Essential hypertension ([facility]) History of skin cancer Hyperlipidemia LDL goal <70 ([facility]) Major depressive disorder, single episode, moderate ([facility]) ([facility]) Mild asthma without complication ([facility]) Non-ischemic cardiomyopathy ([facility]) Osteoporosis, post-menopausal ([facility]) Overactive bladder Stage 3b chronic kidney disease (HCC) ([facility]) CAD (coronary artery disease) ([facility]) Arthritis of left foot Arthritis of left [...] List Items Addressed This Visit Osteoporosis, post-menopausal ([facility]) - Primary Overview DEXA 04/16/2023: T-scores: L1-4= [...] daily with a meal; Certain patients require 4596-6395 international units daily and in patients deficient [...] bones. Studies show approximately 50% of [place] men and women are vitamin D deficient [...] follow up. Adriana Cruz D.O. Board Certified [employer] documented in this encounter [facility] 05-07-2023 Instructions Adriana Cruz DO - [...] daily with a meal; Certain patients require 4845-2166 international units daily and in patients deficient [...] bones. Studies show approximately 50% of [place] men and women are vitamin D deficient [...] in several forms. documented in this encounter [facility] 04-16-2023 Note CLINICAL HISTORY: axel ne [...] She understands and agrees with the plan. [employer] Other 10-30-2023 History of Present illness Narrative* [...] Rfl: Assessment/Plan 1. Coronary artery disease involving [place] coronary artery of [place] heart without angina pectoris Stable, I doubt progression based upon her symptoms (and lack thereof). 2. Essential hypertension, benign Well-controlled on current therapy 3. Mixed hyperlipidemia Well-controlled on current therapy 4. Nonischemic cardiomyopathy (CMS/HCC) No manifestations of heart failure detectable today. documented in this [facility] Work Phone: 1(365) 144-580310-30-2023 Instructions* Patient Instructions* Dante Jacob MA - [...] time of your visit. documented in this [facility] Work Phone: 1(497) 416-784709-14-2023 Evaluation note* Encounter Date Diagnosis Assessment Notes Treatment Notes Treatment Clinical Notes Dec, Arthritis of left knee (ICD-10 - M17.12) Patient was prepped and coritone was injected into the left knee under sterile conditions. Patient tolerated well with no adverse reactions. Activity as tolerate. [employer] Other 05-27-2023 Evaluation note* Encounter Date Diagnosis [...] Pt understood and agreed to treatment plan. [employer] Other 12-06-2022 NoteAdmission and Discharge Information Admitting [...] levels flattened. Cardiology consultation was placed at [facility] cardiology group Dr. Wasserman who patient [...] 73.9 % Lymph Auto - 12.3 % [place] Auto - 7.4 % Eos Auto - 3.6 % Basophil Auto - 2.8 % Neutro Absolute - 6.2 E9/L Lymph Absolute - 1.0 E9/L [place] Absolute - 0.6 E9/L Eos Absolute - [...] 1+ U (more content not included)...[facility] HospitalComment on above: Result Comment: Electronically Signed By: Yolanda SALAS\.br\Date and Time Signed: 03/10/22 20:44 EST\.br\Electronically Co-Signed By: Pantera QUICK MD\.br\Date and Time Co-Signed: 03/11/2210:53 [id number] NoteMicrobiology PROCEDURE: Blood Culture Charcoal [R1] SOURCE: Blood BODY SITE: Arm R COLLECTED DATE/TIME: 02/24/2022 13:54 EST RECEIVED DATE/TIME: 02/24/2022 14:07 EST START DATE/TIME: 02/24/2022 14:07 EST FREE TEXT SOURCE: Jay Emery DO, DO, John FINAL REPORTS Final Report [] Verified Date/Time: 03/03/2022 18:00 EST No growth at 7 days. Performing Locations R1: This test was performed at: [facility], [address] [place] [address], [id number] [place] [address], QxcakxCleveland Clinic [facility] L[facility] HospitalComment on above:Performed By: #### [id number] #### [facility] [address] [place] [address] [id number] NoteMicrobiology PROCEDURE: Blood Culture Charcoal [R1] SOURCE: Blood BODY SITE: Arm L COLLECTED DATE/TIME: 02/24/2022 13:44 EST RECEIVED DATE/TIME: 02/24/2022 14:08 EST START DATE/TIME: 02/24/2022 14:08 EST FREE TEXT SOURCE: IV Start Jay Emery DO, DO, John FINAL REPORTS Final Report [] Verified Date/Time: 03/03/2022 18:00 EST No growth at 7 days. Performing Locations R1: This test was performed at: [facility], [address] [place] [address], [id number] , [place], YrpyasC[facility] HospitalComment on above:Performed By: #### [id number] ####[facility] [address] [place], [place] [id number] NoteHOSPITAL REGULATIONS: All Positive and Important Negative [...] a surgery isunclear to me. ALLERGIES:Percocet, Darvocet, Proctor, Oxycodone. PSYCHOSOCIAL HISTORY:Nonsmoker, nondrinker. FAMILY HISTORY:Diabetes, heart disease, lung cancer. REVIEW OF SYSTEMS:Otherwise negative, normal and noncontributory. PHYSICAL EXAMINATION: Vital signs: An ill appearing female. She is uncomfortable and moves slowly. Her blood pressure qsf408/66, pulse 64, respirations 16, temperature 36.8, weight [...] hospitalization. Jaime Wasserman M.D. young Dictated: 02/26/2022 [id number] Transcribed: 02/26/2022 cc:Adriana Cruz D.O.[facility] HospitalComment on above: Result Comment: Electronically Signed By: Lisy ERIC, Nick Fernandez\Date and Time Signed: 02/27/22 14:23 [id number] NotePT Evaluation done this date. Pt. with on AM-PAC this date. She is safe and independent with all functional activities with no further PT needs.[facility]11-22-2022 Note Chief Complaint Had hernia repair [...] Lymph Auto: 12.3 % Low (02/24/22 13:54:00) [place] Auto: 7.4 % (02/24/22 13:54:00) Eos Auto: 3.6 % (02/24/22 13:54:00) Basophil Auto: 2.8 % High (02/24/22 13:54:00) Neutro Absolute: 6.2 E9/L (02/24/22 13:54:00) Lymph Absolute: 1 E9/L (02/24/22 13:54:00) [place] Absolute: 0.6 E9/L (02/24/22 13:54:00) Eos Absolute: [...] UA C (more content not included)...[facility] HospitalComment on above: Result Comment: Electronically Signed By: Yolanda SALAS\.br\Date and Time Signed: 02/24/22 21:25 EST\.br\Electronically Co-Signed By: Yolanda SALAS\.br\Date and Time Co-Signed: 02/24/22 21:27 EST\.br\Electronically Co-Signed By: MELI ERIC, J Carlos\.br\Date and Time Co-Signed: 02/25/22 07:18 [id number] Notegeneral surgery interval progress note: S.81 y/o [...] with the patient and her daughter[facility] Comment on above:Result Comment: Electronically Signed By: Jannet ERIC, Jay Lua.br\Date and Time Signed: 02/24/22 14:56 [id number] NoteHistory and Physical Update H&P Reviewed. Patient [...] mg= 1 mL, IV Push, q5min, PRN Proctor 325 mg-5 mg oral tablet, 1 tab(s), [...] Primary malignant neoplasm of lung: Sister.[facility]11-02-2022 [id number]:[address] [place], [place] 0809110-17-2022 [id number]:[address] [place], [place] [address]809110-14-2022 Evaluation + Plan noteExtracted from: Title:FRANCISCA POSTOP [...] Location:[facility] Appointment Type:[address]10-14-2022 Hospital Discharge instructions Patient Education 01/17/2022 [...] what activities are safe for you. Take hlzu-lin-nzdxhuo and prescription medicines only as told by [...] 09/21/2012 Document Revised: 09/14/2018 Document Reviewed: 08/23/2018 [employer] Patient Education 2020 [employer]. 01/17/2022 10:08:02 Colonoscopy, Care After Surgery Salam [...] unsweetened, w/added ascorbic acid 1 cup 0.5 Hitchita 1 cup 0.7 Vegetables Cooked Green beans 1 cup 4.0 Carrots 1/2 cup sliced 2.3 Peas 1 cup 8.8 Potato (baked, with skin) 1 medium potato 3.8 Raw [place] (with peel) 1 cucumber 1.5 Lettuce 1 [...] 8.7 Peanuts 1/2 cup 7.9 Chart from [facility] 2013. SEEK IMMEDIATE MEDICAL CARE IF: [...] Reference. Available at http://www.nal.usda.gov/fnic/foodcomp/search/. Information adapted from: [facility] Patient Information 2009 [facility]. [facility] 2012 http://www.Phizzle/contents/dfsucdtqfbjz-sfthezb-blvqcl-the-basics Follow Up Care 01/10/2022 12:34:05 With:Jeferson COPE Address: [address] [place], [place] [address]. [address] [place] [address] Business (1) When: Unknown Comments:office will call for follow up [facility]10-07-2022 Hospital Discharge instructions Patient Education 01/10/2022 11:39:30 [...] or in yourcal community. General instructions Take fzdu-pei-guydefh and prescription medicines only as told by [...] restrictions, lifestyle changes, and skin care. Take cyjq-ffr-xohmlig and prescription medicines only as told by [...] 03/04/2005 Document Revised: 08/05/2018 Document Reviewed: 08/05/2018 [employer] Patient Education 2020 [employer]. 01/10/2022 10:49:37 Colonoscopy, Adult Colonoscopy, Adult A [...] including vitamins, herbs, eye drops, creams, and ffhx-usr-awbhwjn medicines. Any problems you or family members [...] 03/20/2001 Document Revised: 01/13/2018 Document Reviewed: 06/03/2016 [employer] Patient Education 2020 [employer]. Follow Up Care 11/13/2021 10:56:24 With:Shi Urbano CNP Address: When:1 to 2 weeks [facility] 05-26-2022 Evaluation note* Encounter [...] consider an injection in the left knee. [employer] Other 05-22-2022 Evaluation note* Encounter Date Diagnosis [...] Pt understands and agrees with the plan. [employer] Other Evaluation + Plan note Future Appointments Appointment Date:02/24/2022 12:30:00 PM Scheduled Provider: Location:[facility] Appointment Type:Surgery FT Future Scheduled Tests Laboratory* Fecal WBC Lactoferrin 01/10/22 * Giardia lamblia, Direct Detection EIA 01/10/22 * O & P Exam, Routine 01/10/22 * Clostridium difficile by PCR 01/10/22 * Enteric Panel by PCR 01/10/22 [facility] Evaluation noteNo assessment information available [facility] Work Phone: Evaluation note* Diagnosis Coronary artery disease involving [place] coronary artery of [place] heart without angina pectoris- Primary Essential hypertension, benign Mixed hyperlipidemia Nonischemic cardiomyopathy (CMS/HCC) Other primary cardiomyopathies documented in this encounter [facility] Work Phone: Evaluation note* Diagnosis Osteoporosis, post-menopausal (CMS/HCC)- Primary Senile osteoporosis documented in this encounter [facility] HealthcareEvaluation note* Diagnosis Onset Date Resolution Status Arthritis of left knee acute Primary osteoarthritis of left knee acute [facility] Work Phone: History general Narrative - Reported* Type Description Date Medical History high cholesterol Medical History high blood pressure Medical History [place] Medical History asthma Surgical History right knee repacement Surgical History gall bladder Surgical History hysterectomy Surgical History carpal tunnel release Hospitalization History heart [employer] Other History of Present illness Narrative* Patient [...] other recommendation for changes in medical therapy. [facility] Ty[facility]li DO Work Phone: History of Present illness [...] which appears to be adequate and appropriate. [facility] Financieroy Tykli DO Work Phone: History of Present illness [...] which appears to be adequate and appropriate. [facility] DO Work Phone: History of Present illness [...] no change and she will [facility] DO Work Phone: Hospital course Narrative No data available for this section [facility] Hospital Discharge instructions Additional Instructions Increase your intake of fluids. Take Zofran as prescribed for nausea. Follow-up with your primary care physician for reevaluation in 3 to 5 days.[facility] Work Phone: Progress note No data available for this section [facility] Reason for referral (narrative)* Consultation (Routine) - Authorized Specialty Diagnoses / Procedures Referred By Silvano brown Referred To Contact Cardiology Diagnoses Essential hypertension, benign Procedures Follow Up In Cardiology Nick Wasserman MD [address] [place] [address] 2, [address] [address] Nick Wasserman MD [address] [place] [address] 2, [address] [address] Referral ID Status Reason Start Date Expiration Date V isits Requested Visits Authorized [id number] Authorized 02/02/2023 02/02/2024 1 1 [facility] Work Phone: Summary Purpose Family [...] father Unknown Not Specified Unknown Advance Directives No Advanced Directives Records Found [...] section and content) DATE CREATED AUTHOR 04/09/2019 [facility] DATE CREATED AUTHOR AUTHOR'S ORGANIZ ATION 11/20/2020 [facility] DATE CREATED AUTHOR AUTHOR'S ORGANIZ ATION 09/01/2021 [facility] DATE CREATED AUTHOR AUTHOR'S ORGANIZ ATION 10/25/2021 [facility] DATE CREATED AUTHOR AUTHOR'S ORGANIZ ATION 03/07/2022 [employer] DATE CREATED AUTHOR AUTHOR'S ORGANIZ ATION 03/11/2022 [facility] DATE CREATED AUTHOR AUTHOR'S ORGANIZ ATION 04/01/2022 [facility] DATE CREATED AUTHOR AUTHOR'S ORGANIZ ATION 02/03/2023 [facility] DATE CREATED AUTHOR AUTHOR'S ORGANIZ ATION 02/20/2023 [facility] DATE CREATED AUTHOR AUTHOR'S ORGANIZ ATION 03/21/2023 [facility] DATE CREATED AUTHOR AUTHOR'S ORGANIZ ATION 07/16/2023 [facility] Special[facility] EPIC REASON FOR [...] Active Misbah Greenwood DO Emergency Provider Active 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 Start Date End Date Adriana Cruz DO [address] [facility], [facility] [address] [place] [address] PCP - General 09/17/20 Team Status: Inactive Member Role Status Dates Adriana Cruz DO Primary Care Provider Active Eliecer Gray , ACCOUNTING TEACHER-C Attending Provider Mo e 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 Start Date End Date Adriana Cruz DO [address] [facility] [address] [place] [address] PCP - [employer] 04/06/20 Adriana Cruz DO [address] [place] [address] PCP - General Internal Medicine 02/18/23 Krissy Velazquez MD [address] [place] [address] Consulting Physician Dermatology 12/03/22 Cristhian Bonner MD [address] [place] [address] Referring Physician Ophthalmology 12/03/22 Valentín Mills, DPM FACFAS [address] [place] [address] Consulting Physician Podiatry 12/08/22 Aye Wasserman MD [address] [address] Consulting Physician Cardiology 12/08/22 Jeferson Cope MD [address] [place] [address] Consulting Physician Gastroenterology 12/08/22 [place] [address] [place] [address] Consulting Physician Orthopaedic Surgery 12/09/22 Team Status: Inactive Member Role Status Dates Adriana Cruz , Primary Care Provider Active Start: June 01, 2023 End: June 01, 2023 Clement Madrid II, MD Attending Provider Active Start: June 01, 2023 End: June 01, 2023 Team Status: Active Member Role Status Dates Adriana Cruz , Primary Care Provider Active Start: June 01, [...] BE BASED ON THE PRIMARY CLINICAL RECORDS. [employer] provides no warranty or guarantee of the accuracy or completeness of information in this document.
== END 2023-07-17 07:58 | disposition home or self-care (01) ==
LOC: VC 07:57
PROVIDERS: PCP Radiology Diagnostic Radiology; Visit Provider Radiology Diagnostic Radiology
DX: I83.813 Varicose veins of bilateral lower extremities with pain (principal)
CPT/HCPCS: 36471

== ENCOUNTER 2023-07-23 08:49 | Outpatient (OUT) | payer MEDICARE, OTHER, SELFPAY ==
--- NOTE | 2023-07-23 08:51 | VEIN_ITS ---
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 The procedure was performed under sterile technique. The patient's leg was wrapped with Coban and postprocedural verbal and written instructions provided. Alexey Sosa RN was present and assisted. SCLEROSANT: 2mL 0.5% Polidocanol. VEIN(S) INJECTED: 28 veins in the right leg. VISUALIZATION: Ultrasound was not used to visualize the sclerosant. ANESTHESIA: Supercooled air. COMPLICATIONS: None. Electronically authenticated by: GABY MONTANEZ Date: 07/23/2023 11:20
--- OUTSIDE RECORDS SUMMARY | 2023-07-23 09:10 | XMS_ITS | CCD ---
Author Organization [facility] Care Team Providers [facility] [employer] Name Role Phone Adriana Cruz Unavailable Unavailable Unavailable Clement Madrid II Unavailable IsaacEliecer Unavailable DO Adriana Cruz Primary Care Provider DO Misbah [place] Emergency Provider Unavai ADRIANA Muñiz Primary Care Physician [phone] Shi Urbano Attending Unavailable Shi Urbano Admitting [...] Jeferson Attending Unavailable SALAM, Govea Admitting Unavailable Tirado-Worcester, Adriana Billie Primary Care Unava ilable Tirado-Worcester, Adriana Billie Primary Care Unava ilable McGuinn II, Nick Garduno Attending Unav ailable McGuinn II, Nick Garduno Attending Unav ailable Tirado-Worcester, Adriana Billie Primary Care Unava ilable McGuinn II, Nick Garduno Referring Unav ailable Tirado-Worcester, Adriana Billie Primary Care Unava ilable McGuinn II, Nick Garduno Referring Unav ailable McGuinn II, Nick Garduno Attending Unav ailable Tirado-Worcester, Adriana Billie Primary Care Unava ilable Tirado-Worcester, Adriana Billie Primary Care Unava ilable McGuinn II, Nick Garduno Attending Unav ailable Luis Nolasco Unavailable Savanna Cassidy Unavailable Tirado-Worcester DO, Adriana Billie Primary Care Provi octavio Tirado-Worcester, DO Adriana Primary Care Provider MD Nick Wasserman Attending Provider NICK WASSERMAN Attending Unavailable TIRADO-EMERY, ADRIANA BILLIE Primary Care Unava ilable Tirado-Worcester, DO Adriana Primary Care Provider MD Nick Wasserman Attending Provider LIT Gray Attending Provider Tirado-Worcester, Adriana Primary Care Unavailable Nick Wasserman Admitting Unavail able Nick Wasserman Attending Unavail able Eliecer Gray Attending Unavaila ble Tirado-Worcester, Adriana Primary Care Unavailable Eliecer Gray Admitting Unavaila ble Tirado-Worcester DO, Adriana D Unavailable Krissy Velazquez MD Unavailable [phone] ERIC, Cristhian Jenelle Unavailable Valentín Choudhary DPM Unavailable Lisy ERIC, Aye Unavailable Jeferson Cope MD Unavailable Clement Madrid MD Unavailable Tirado-Worcester DOAdriana Primary Care Provider Tirado-Worcester DO Adriana Primary Care Provider [phone] MD Clement Madrid II Attending Provider [phone] ADRIANA CRUZ Attending Unavailab le TIRADO-EMERYLYNNRA Katherine [...] sources) HYDROcodone; Translations: [hydrocodone] Drug Allergy 2 [facility] (6 sources) oxyCODONE; Translations: [oxyCODONE] Drug Allergy 2 [facility] (2 sources) Acetaminophen / oxyCODONE; Translations: [acetaminophen-ox ycodone] Drug Allergy Nausea (finding) [facility] Comment on above: All pain meds EXCEPT Morphine. Patient is able to take Morphone. (1 source) Acetaminophen / HYDROcodone; Translations: [Peterson] Drug Allergy [facility] (1 source) Acetaminophen / oxyCODONE; Translations: [Percocet] Drug Allergy [facility] (1 source) Darvocet-N 100; Translations: [Darvocet-N 100] Propensity to adverse reactions (disorder) [facility] (2 sources) Acetaminophen / oxyCODONE Drug Allergy 3 Nausea Only [facility] (2 sources) oxybutynin Drug Allergy 9 Other [facility] Work Phone: (1 source) pain medication- intolerable Allergy to substance 4 Unknown Reaction [facility] Medications Current Medications Medication Drug Class(es) [...] 1 EA, Refill(s) 0, Prior to colonoscopy., [facility] #24, 150, cm, 01/10/22 10:48:00 EDT, Height/Length [...] [Coronary atherosclerosis of unspecified type of vessel, elim ira or graft] Onset: 3 02-02-2023 Chronic Disorders [...] IS VERY IMPORTANT TO YOUR HEALTH. 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 Person calling: caregiver: Alanis Return call to: self Medical Records/Insurance Card scanned into [employer]: Yes Comments: This was Routed Incorrectly Allergies [...] Status:Closed by ALANIS CASTILLO on 02/20/23 Normal [facility] Urinalysis - DIPSTICKon 11-0 Appearance (U) cloudy [employer] Other Bilirubin Ql (U) Negative [employer] Other Color (U) yellow 1[employer] Other Glucose Ql (U) Negative [employer] Other Hemoglobin Ql (U) small [employer] Other Ketones Ql (U) Negative [employer] Other Leukocyte esterase Test strip Ql (U) large 1[employer] Other Nitrite Ql (U) Positive [employer] Other pH (U) 5.0 [pH] 1.618 [employer] Other Protein Ql (U) trace [employer] Other Specific gravity (U) [Rel density] 1.025 [employer] Other Urobilinogen (U) [Mass/Vol] 0.2 mg/dL [employer] Other Urinalysis - DIPSTICK [employer] Other Urine Cultureon 02-11-2023 Bacteria identified Cx Nom (U) ORGANISM: Escherichia coli (O:ESCCOL) [place] Count >100,000 Aerobic DYLAN Charge (NMIC56) SUSCEPTIBILITY [...] RESISTANT TO ALL B-LACTAM DRUGS. PERFORMED BY: [place] [address] PATHOLOGIST BAG TESTER RENAN CAIN M.D. [facility] Comment on above: Performed By: #### C UU #### [place] [address] [place] [address] [place] Basic Metabolic Panelon 10-3 0-2022 Anion gap [Moles/Vol] 11.0 mmol/L Normal 6.0-15.0 [facility] Comment on above: Performed By: #### L IPID, BMP, CBC #### [place] [address] [place] [address] [place] Calcium [Mass/Vol] 10.1 mg/dL Normal 8.6-10.3 [facility] Comment on above: Performed By: #### L IPID, BMP, CBC #### [place] [address] [place] [address] [place] Chloride [Moles/Vol] 107 mmol/L Normal 98-107 [facility] Comment on above: Performed By: #### L IPID, BMP, CBC #### [place] [address] [place] CO2 [Moles/Vol] 26.4 mmol/L Normal 21.0-31.0 [facility] Comment on above: Performed By: #### L IPID, BMP, CBC #### [place] [address] [place] Creatinine [Mass/Vol] 1.34 mg/dL High 0.60-1.20 [facility] Comment on above: Performed By: #### L IPID, BMP, CBC #### [place] [address] [place] [address] [place] GFR/1.73 sq M.predicted MDRD (S/P/Bld) [Vol rate/Area] 40.085 mL/min/{1.73_m2} [facility] Comment on above: Performed By: #### L IPID, BMP, CBC #### [place] [address] [place] Glucose [Mass/Vol] 91 mg/dL Normal 70-100 [facility] Comment on above: Result Comment: [facility] Glucose Reference Range is dependent on time and content of last meal. Glucose of more than 200 mg/dL in a nonstressed, ambulatory subject supports the diagnosis of Diabetes Mellitus. ADA recommended reference range Performed By: #### L IPID, BMP, CBC #### [facility] [address] Potassium [Moles/Vol] 4.4 mmol/L Normal 3.5-5.1 [facility] Comment on above: Performed By: #### L IPID, BMP, CBC #### [facility] [address] [place] [address] [place] Sodium [Moles/Vol] 140 mmol/L Normal 136-145 [facility] Comment on above: Performed By: #### L IPID, BMP, CBC #### [facility] [address] [place] [address] [place] Urea nitrogen [Mass/Vol] 23 mg/dL Normal 7-[address] [facility] Comment on above: Performed By: #### L IPID, BMP, CBC #### [facility] [address] [place] [address] [place] Basophils Auto (Bld) [#/Vol] Ordered By: Nick Wasserman on 02-02-2023 Basophils (Bld) [#/Vol] 0.0 10*3/uL 0.0-0.[address] [facility] Basophils/100 WBC Auto (Bld) Ordered By: Nick Wasserman on 02-02-2023 Basophils/100 WBC (Bld) 0.4 % . [facility] Calcium [Mass/volume] in Ser um or PlasmaOrdered By: Nick Wasserman on 02-02-2023 Calcium [Mass/Vol] 10.1 mg/dL 8.6-10.3 [facility] Carbon dioxide, total [Moles /volume] in Serum or PlasmaOrdered By: Nick Wasserman on 02-02-2023 CO2 [Moles/Vol] 26.4 mmol/L 21.0-31.0 [facility] Chloride [Moles/volume] in S kobi or PlasmaOrdered By: Nick Wasserman on 02-02-2023 Chloride [Moles/Vol] 107 mmol/L 98-107 [facility] Cholesterol [Mass/volume] in Serum or PlasmaOrdered By: Nick Wasserman on 02-02-2023 Cholesterol [Mass/Vol] 170 mg/dL 140-[address] [facility] Comment on above: Chol less than 200 m g/dl low riskChol 201-239 mg/dl borderline riskChol 240 mg/dl and greater high risk Cholesterol in LDL Calc [Mas s/Vol]Ordered By: Nick Wasserman on 02-02-2023 Cholesterol in LDL [Mass/Vol] 89 mg/dL 0-[address] [facility] Comment on above: LDL ATP III CLASSIFI CATIONLDL less than 100 mg/dL OptimalLDL 100-129 mg/dL Near or above optimalLDL 130-159 mg/dL Borderline highLDL 160-189 mg/dL HighLDL greater than 189 mg/dL Very high Cholesterol in VLDL Calc [Ma ss/Vol]Ordered By: Nick Wasserman on 02-02-2023 Cholesterol in VLDL [Mass/Vol] 25 mg/dL [facility] Complete Blood Count Auto Di ffon 02-02-2023 Basophils (Bld) [#/Vol] 0.0 10*3/uL Normal 0.0-0.[address] [facility] Comment on above: Result Comment: PERF ORMED BY: [place] [address] PATHOLOGIST BAG TESTER RENAN CAIN M.D. Performed By: #### L IPID, BMP, CBC #### [facility] [address] [place] [address] [place] Basophils/100 WBC (Bld) 0.4 % Normal . [facility] Comment on above: Performed By: #### L IPID, BMP, CBC #### [facility] [address] [place] [address] [place] Eosinophils (Bld) [#/Vol] 0.3 10*3/uL Normal 0.0-0.[address] [facility] Comment on above: Performed By: #### L IPID, BMP, CBC #### [facility] [address] [place] [address] Eosinophils/100 WBC (Bld) 3.4 % Normal . [facility] Comment on above: Performed By: #### L IPID BMP, CBC #### [address] Erythrocyte distribution width (RBC) [Ratio] 13.0 % Normal 11.9-15.[address] [facility] Comment on above: Performed By: #### L IPID BMP, CBC #### [address] Hematocrit (Bld) [Volume fraction] 37.3 % Normal 34.0-46.[address] [facility] Comment on above: Performed By: #### L IPID BMP, CBC #### [address] Hemoglobin (Bld) [Mass/Vol] 12.5 g/dL Normal 11.8-15.[address] [facility] Comment on above: Performed By: #### L IPID BMP, CBC #### [address] Lymphocytes (Bld) [#/Vol] 1.4 10*3/uL Normal 1.00-4.[address] [facility] Comment on above: Performed By: #### L IPID BMP, CBC #### [address] Lymphocytes/100 WBC (Bld) 16.6 % Normal . [facility] Comment on above: Performed By: #### L IPID BMP, CBC #### [place] [address] [place] MCH (RBC) [Entitic mass] 30.9 pg Normal 24.7-34.[address] [facility] Comment on above: Performed By: #### L IPID BMP, CBC #### [address] MCV (RBC) [Entitic vol] 91.8 fL Normal 80-[address] [facility] Comment on above: Performed By: #### L IPID BMP, CBC #### [facility] [address] Mean Corpuscular HGB Conc 33.6 g/dL Normal 32.0-35.[address] [facility] Comment on above: Performed By: #### L IPID, BMP, CBC #### [facility] [address] [place] [address] [place] Monocytes (Bld) [#/Vol] 0.8 10*3/uL Normal 0.0-0.[address] [facility] Comment on above: Performed By: #### L IPID, BMP, CBC #### [place] [address] [place] [address] [place] Monocytes/100 WBC (Bld) 9.0 % Normal . [facility] Comment on above: Performed By: #### L IPID, BMP, CBC #### [address] Neutrophils (Bld) [#/Vol] 6.1 10*3/uL Normal 1.8-7.[address] [facility] Comment on above: Performed By: #### L IPID, BMP, CBC #### [place] [address] [place] Neutrophils/100 WBC (Bld) 70.6 % Normal . [facility] Comment on above: Performed By: #### L IPID, BMP, CBC #### [place] [address] [place] NRBC% 0.0 /100{WBC} Normal 0-0.[address] [facility] Comment on above: Performed By: #### L IPID, BMP, CBC #### [facility] [address] [place] [address] [place] Platelet mean volume (Bld) [Entitic vol] 8.2 fL Normal 6.3-10.[address] [facility] Comment on above: Performed By: #### L IPID, BMP, CBC #### [facility] [address] [place] [address] [place] Platelets (Bld) [#/Vol] 296 10*3/uL Normal 150-[address] [facility] Comment on above: Performed By: #### L IPID, BMP, CBC #### [facility] [address] RBC (Bld) [#/Vol] 4.07 10*6/uL Normal 3.60-5.00 [facility] Comment on above: Performed By: #### L IPID, BMP, CBC #### [facility] [address] WBC (Bld) [#/Vol] 8.6 10*3/uL Normal 3.8-11.6 [facility] Comment on above: Performed By: #### L IPID, BMP, CBC #### [facility] [address] Creatinine [Mass/volume] in Serum or PlasmaOrdered By: Nick Wasserman on 02-02-2023 Creatinine [Mass/Vol] 1.34 mg/dL 0.60-1.20 [facility] Eosinophils Auto (Bld) [#/Vo l]Ordered By: Nick Wasserman on 02-02-2023 Eosinophils (Bld) [#/Vol] 0.3 10*3/uL 0.0-0.[address] [facility] Eosinophils/100 WBC Auto (Bl d)Ordered By: Nick Wasserman on 02-02-2023 Eosinophils/100 WBC (Bld) 3.4 % . [facility] Erythrocyte distribution wid th Auto (RBC) [Ratio]Ordered By: Nick Wasserman on 02-02-2023 Erythrocyte distribution width (RBC) [Ratio] 13.0 % 11.9-15.[address] [facility] Glucose [Mass/volume] in Ser um or PlasmaOrdered By: Nick Wasserman on 02-02-2023 Glucose [Mass/Vol] 91 mg/dL 70-100 [facility] Comment on above: ADA recommended refe rence rangeRandom Glucose Reference Range is dependent on time and content of last meal. Glucose of more than 200 mg/dL in a nonstressed, ambulatory subject supports the diagnosis of Diabetes Mellitus. Hematocrit Auto (Bld) [Volum e fraction]Ordered By: Nick Wasserman on 10-30-2023 Hematocrit (Bld) [Volume fraction] 37.3 % 34.0-46.[address] [facility] Hemoglobin [Mass/volume] in BloodOrdered By: Nick Wasserman on 02-02-2023 Hemoglobin (Bld) [Mass/Vol] 12.5 g/dL 11.8-15.[address] [facility] Leukocytes [#/volume] correc sergey for nucleated erythrocytes in Blood by Automated counOrdered By: Nick Wasserman on 02-02-2023 WBC corrected for nucl RBC Auto (Bld) [#/Vol] 8.6 10*3/uL 3.8-11.[address] [facility] Lipid Panelon 02-02-2023 Cholesterol [Mass/Vol] 170 mg/dL Normal 140-[address] [facility] Comment on above: Result Comment: Chol less than 200 mg/dl low risk Chol 201-239 mg/dl borderline risk Chol 240 mg/dl and greater high risk Performed By: #### L IPNGOZI BMP, CBC #### [facility] [address] [place] [address] [place] Cholesterol in HDL [Mass/Vol] 56 mg/dL Normal 23-[address] [facility] Comment on above: Result Comment: HDL CHOL ATP-III CLASSIFICATION Cardiovascular Risk HDL > or equal to 60 mg/dL LOW HDL < 40 mg/dL HIGH Performed By: #### L IPID BMP, CBC #### [facility] [address] [place] [address] [place] Cholesterol.total/Cho lesterol in HDL [Mass ratio] 3.0 {ratio} Normal <5.[address] [facility] Comment on above: Result Comment: PERF ORMED BY: [facility] [address] [place] [address] PATHOLOGIST BAG TESTER RENAN CAIN M.D. Performed By: #### L IPID BMP, CBC #### [facility] [address] [place] [id number] [place] LDL Cholesterol,Calculate d 89 mg/dL Normal 0-[address] [facility] Comment on above: Result Comment: LDL ATP III CLASSIFICATION LDL less than 100 mg/dL Optimal LDL 100-129 mg/dL Near or above optimal LDL 130-159 mg/dL Borderline high LDL 160-189 mg/dL High LDL greater than 189 mg/dL Very high Performed By: #### L IPID, BMP, CBC #### [facility] [address] Triglyceride w/Reflex 127 mg/dL Normal 0-149 [facility] Comment on above: Result Comment: TRIG ATP III CLASSIFICATION TRIG less than 150 mg/dL Normal TRIG 150-199 mg/dL Borderline high TRIG 200-500 mg/dL High TRIG greater than 500 mg/dL Very high Standard traceable to the Center for Disease Conrtrol and Prevention (CDC) test method. Performed By: #### L IPID, BMP, CBC #### [facility] [address] VLDL CHOLESTEROL 25 mg/dL Normal [facility] Comment on above: Performed By: #### L IPID, BMP, CBC #### [facility] [address] Lymphocytes Auto (Bld) [#/Vo l]Ordered By: Nick Wasserman on 02-02-2023 Lymphocytes (Bld) [#/Vol] 1.4 10*3/uL 1.00-4.[address] [facility] Lymphocytes/100 WBC Auto (Bl d)Ordered By: Nick Wasserman on 02-02-2023 Lymphocytes/100 WBC (Bld) 16.6 % . [facility] MCH Auto (RBC) [Entitic mass ]Ordered By: Nick Wasserman on 02-02-2023 MCH (RBC) [Entitic mass] 30.9 pg 24.7-34.[address] [facility] MCHC Auto (RBC) [Mass/Vol]Or dered By: Nick Wasserman on 02-02-2023 MCHC (RBC) [Mass/Vol] 33.6 g/dL 32.0-35.0 [facility] MCV Auto (RBC) [Entitic vol] Ordered By: Nick Wasserman on 02-02-2023 MCV (RBC) [Entitic vol] 91.8 fL 80-[address] [facility] Monocytes Auto (Bld) [#/Vol] Ordered By: Nick Wasserman on 02-02-2023 Monocytes (Bld) [#/Vol] 0.8 10*3/uL 0.0-0.[address] [facility] Monocytes/100 WBC Auto (Bld) Ordered By: Nick Wasserman on 02-02-2023 Monocytes/100 WBC (Bld) 9.0 % . [facility] Neutrophils Auto (Bld) [#/Vo l]Ordered By: Nick Wasserman on 02-02-2023 Neutrophils (Bld) [#/Vol] 6.1 10*3/uL 1.8-7.[address] [facility] Neutrophils/100 WBC Auto (Bl d)Ordered By: Nick Wasserman on 02-02-2023 Neutrophils/100 WBC (Bld) 70.6 % . [facility] No Panel InformationOrdered By: Nick Wasserman on 02-02-2023 Estimated GFR (CKD-EPI) 40.085 mL/Min [facility] Creatinine Clearance (Chem N/A [facility] Nucleated erythrocytes [Pres ence] in Blood by Automated countOrdered By: Nick Wasserman on 02-02-2023 Nucleated RBC Auto Ql (Bld) 0.0 /100{WBC} 0-0.[address] [facility] Platelet mean volume Auto (B ld) [Entitic vol]Ordered By: Nick Wasserman on 02-02-2023 Platelet mean volume (Bld) [Entitic vol] 8.2 fL 6.3-10.[address] [facility] Platelets Auto (Bld) [#/Vol] Ordered By: Nick Wasserman on 02-02-2023 Platelets (Bld) [#/Vol] 296 10*3/uL 150-[address] [facility] Potassium [Moles/volume] in Serum or PlasmaOrdered By: Nick Wasserman on 02-02-2023 Potassium [Moles/Vol] 4.4 mmol/L 3.5-5.1 [facility] RBC Auto (Bld) [#/Vol]Ordere d By: Nick Wasserman on 02-02-2023 RBC (Bld) [#/Vol] 4.07 10*6/uL 3.60-5.00 [facility] Serum or plasma anion gap de terminationOrdered By: Nick Wasserman on 02-02-2023 Anion gap [Moles/Vol] 11.0 mmol/L 6.0-15.0 [facility] Serum or plasma high density lipoprotein (HDL) cholesterol measurementOrdered By: Nick Wasserman on 02-02-2023 Cholesterol in HDL [Mass/Vol] 56 mg/dL 23- [facility] Comment on above: HDL CHOL ATP-III CLA SSIFICATION Cardiovascular RiskHDL > or equal to 60 mg/dL LOWHDL < 40 mg/dL HIGH Serum or plasma total choles terol/high density lipoprotein (HDL) cholesterol mass ratOrdered By: Nick Wasserman on 02-02-2023 Cholesterol.total/Cho lesterol in HDL [Mass ratio] 3.0 {ratio} <5.[address] [facility] Sodium [Moles/volume] in Ser um or PlasmaOrdered By: Nick Wasserman on 02-02-2023 Sodium [Moles/Vol] 140 mmol/L 136-145 [facility] Triglyceride [Mass/volume] i n Serum or PlasmaOrdered By: Nick Wasserman on 02-02-2023 Triglyceride [Mass/Vol] 127 mg/dL 0-[address] [facility] Comment on above: TRIG ATP III CLASSIF ICATIONTRIG less than 150 mg/dL NormalTRIG 150-199 mg/dL Borderline highTRIG 200-500 mg/dL High TRIG greater than 500 mg/dL Very highStandard traceable to the Center for Disease Conrtrol and Prevention (CDC) test method. Urea nitrogen [Mass/volume] in Serum or PlasmaOrdered By: Nick Wasserman on 02-02-2023 Urea nitrogen [Mass/Vol] 23 mg/dL 7-[address] [facility] WBC Auto (Bld) [#/Vol]Ordere d By: Nick Wasserman on 02-02-2023 WBC (Bld) [#/Vol] 8.6 10*3/uL 3.8-11.6 [facility] Coding Summary.on 03-11-2022 Coding Summary. [id number] Gh0bWw +PGhlYWQ+PS4SRXXuT06vtIYju D3XN9yJNE9AAPCZANYYRR7NLS1 riZC8SCrlW6NtlyCt NboojRGpPN25JIh6YVV2zYgwZN uemE5nlUQtH8d1QaBbKM50cJ84 XZdaRKIrPoB1QiXyfqvbjEZf C6yrNjEpdOOjJwr+PHRhYmxlIH vbFZBzJVjvMJPyBrClrUdaYZ8n Ij6jKEUwNKIaxHpgmAKlDrMx q6htYPOaUTopRM6ssZfkY8IkbI L9PIYat9t2Ee29pHL+PHRkIHN0 jZdhNUmng876TlBmh3tiLHC9 iLBvRKzdDEI0D09go5G4RMIyGJ DxGPQ7cUA5tK4djWvkpzbbZ6Kg lHRyCyL0XOD6yVOsgI8ldYtq mwhpwU5bEda+K42QZS0KGYDBUF 3PScx6S8XmNqhesWO+VC29HMKa FK24tOCabFHdd7angUl1AcFc IVFlPTY2oGnuBTdsg1GgFIBoD9 7maVOaq0B1OGEtqGbjvPTzEaTd gAJ2nW0tKElpzknfw2djeqes Lkzwe0hqce02oW36B54pYTcrGU RlVNP8MEYdGXZnlUdptn2soE8e Ii8+CZdtw8jun2qolBz8UxOh WYBdemKvlDvmPAC6b3OeQe73D4 FtkQrug0PrPad8ju35yPDab7D7 ePW3ZGzhNTTqjK2dQPmoQsM3 VZErFmJpvG28yRZaUKdfAt8twQ jtaZexMC1gLELlpsuiVECoqI2h DMGjeQVuqDekJK6kVXLfpphb h366FrWpSGN4YJSfiYCaW2VsrU 3iUlWoIIWeAYBgG8LydUOtCHld I195GGicWcR6TSFmwuUmI4Xg FDQykPowVfW1v1Z1Qs7Ml4Wtdn hrYZX7MPcmAGUoEgO4PzHuYeB7 C0GvEjs3GIOafFtxGZ9uM7Yg QHCgammzvnsmkCQ7OQVpZZSsjO 44gGGoWXyrNm6qr7U8d271BVBg UQXzjH52Ow0svAxxMFMnxPMC aY3ahrkrf0ropqlmRfXnAOGaVC w4MIq7KEUhnLflBlOoGQR2PyP9 CXH0ySYgqN9enBtvmgvyxE9b Oyc+G39xsZ1uZNF8OJM9dxxjLS RnlaFoZV23RF89U2OjTxnxmVGg bGU+IENrloKleUwpKK6wGnIp v8eli3VoUQllG7McXUBeHWqiKp o3TWPzKNG5iWL6qQ9iURQwQYxk a7X1dTQ6I4DnxgPqbg7zq0fh XDLlCXfrT35sfATbs3S3VPDzyY S0IMQsbVquVqKzgJ60Knl+PGNv bOdrj0GqIvzmi7xki1uevSu8 MxMrUVFcboNstPldBHO3a1RfHi 26Z78zDNghJIDzBPOtRLUtOGPa xQtsnt5xkO6dWk1+PGNvbCB3 tNU0aM2tVUEwLzW2WOmkZ905Da JajCEuQvppd1hmw0bgjYq1RzUh MFJheqHodWmiTFT9i4BuFw61 Q28aUKrwIKEmSSSaDNPeLXXzgS jghq3xsB4bRc5+XB9jp5kcqs31 eC58tEG+ZKOmBTJ4dCikNLcq QDGhmN7qAMxzHbM0VOAgPcRhqB 79pXWdDTqyRl2joYoxtViqEC9v RDHcdtcca410UjOmx9thSSKa kOJxYFwnTBF2B51ob2K0PKQjPY YhHIM2gUS6uG7lbYvhhyibkEKv vJlvlbCbtUkiALztHAxsK600 IHRvcDsnPlBhdGllbnQgTmFtZT u6Z7ZpUhn9AHXrvBnjLW5gwRPr AJrmTl4hyKsveBiaAF0hNWNa ronrx591KxFqk9vmBCKivLDdFY ubIOT6F73zi3E2XVCwFNWqYQG1 vYS9kM4vgPftbfwlgRFffSzq jkBljKtaKBwzMKfiG202JQNzfR drLtWkyyWwBCNuoVC6HF36LL47 aZOrv1K4yKD6G6GiAFFnnjca ojjeuDU7JJUyNQZlxH63Gj9ikR fkFb1uLAXcNGX3BBAkyJHdU4Iv vS4vDhJoKWTjYCNaU4VmzVWr AJbxP702ITpxVaP0KCGmjvYrX7 PsLYEqqOqsWwM8v3L4Cu5UI5Q9 TP25PE63hYHhy1O6tCP2H7Kt BRFoeyewqqxyiUG0BEGdOOXliC 81If6mnNgiOm9wGECvLSO5XOTy lGRyO5FkeB7zFnBxDJEvMPQj O7EnjRVyGRdmW090BZkcWvE3MO StusAmU8TyZSAeoVebAmK4l7J6 Qm1DPRg9BN09PF66cYJhz0Y3 bOL9Y7YqAMAirfyouttthQI2EV QyEPAwzS96Nz6fuTonCt6kNBOa RNS1RLXuzWLxV1VwhW7kXkJr TWZxQSHeV8LbuTWeBFjcV728ZZ lcJeN0DXPctbDwL3MmRHQjjTpb TgQ8g8W2Lm6OYCLeAO43UWS3 oEE5TB85LR79B5SfZwfduLZifG U+PHRhYmxlIHdpZHRoPScxMDAl CeNpaGluYL8xUi8fKIYcDVBh uYozrFEbUkVyz7beMKRoNBcfDO 5waYzjU7QvuKP1XLJtb0u0Qk59 Q56yD2ZtvYQ+EBFtoCW4oDA8 bS4zHlJvLtE1KGddV191KbFmgW OgPakzs9nwb3qucXe9EsU7TVTn cmWepLmhEQU1m0OxSy26R39v IHdpZHRoPSIxNSUiIHZhbGlnbj 4mvL4eGg9+HLLtfQU8cIF4wR7n KuVxYaP1WQtgI744DuBsfMCz Zuvdj3guu9rmpGl0QqPkMMAafb YgjSplUCN6e6AgGq19A0OspMdj g5UwAjl9wt38yWDaw6L6aRA6 G4JePVMnegksxILvpPdaYB7fAM TlkgatPVOeyN3vVLMnH2o9UjEd BsG2FDcqL5AnkjS3ZFYurWAz EPuzQBB2B03be3L2YLHhWOGfYP G7kTI7uI3mcWzuvstxeCLudYva jmWfsEkzRXrkREwlL870TBTq fJhmEWSyoK9iTSDwhNLamQztKA 6oPTMffdrgLeUSP2BNN4OxJEJM XBUWH6jFRU13HL51vKHlf3C8 vVP8B6IpTUKrjxbmhxmobYN4BN UaRNZawQ92rZLnNCzwNp8qo4A6 l545TZHvBLUusY81Wg9xqMng KFMalMPPkC9gpzlcj5eggletLv ZxGXSnBGc6YYv9MMZihBapYaHn MJN2ClE2OGN0cYYmsD1gwXex jlrunV9yWxo+YMFcUUViABu4Nx wvdGQ+IIFuXJD6xLaiQMpoAGOe kC8sVOYkB3e2XyUpEpM3FBzx P5TnPAZhqftxBj84lE7vSnAkAf N1FZidB5AzgvN1ZOBjrRCdMPmx PWR1L48xq1B3FHUeIPCxFFS8 lXZ2yU6hzTagqgermKWppAodiz JyhNdxQZbnVIrpE541ZNZhbHpy Esl3HSnaOSVwUT44QN89bUSp m0W8wCS2D4KkWVYiihptdkxtfZ B8OENkKRMiqK20iTGeWLypZv0s p6N4a003WMZnLJOqmP79Ya9t gTpvRTGryHRPfZ9enijxg0cyct jdAjJnFPXfJMq2QGm1RPKbqEmk YnJwTGU9BhO9PSX3qQFaeW5h bXlnhkgxrZ3jTmr+RmVtYWxlPC 23VB52pRNuf0D2hVY0Z7IfTKOx mdioghjdvRP6PNScXGFarZ85 dUGzUDlwTq6ca9W2u362NVVuCF PdqN83Lz6buMjxEXCisYMIvP8r fujdz0dsfvfvWwOvUFNhYYq9 GHy9UHRgjHkbSwIaKMO6IcU9JG Z8jIIqkF6fkLxwzlkzlC5bKmm+ R3UfNAI0ZRCkb650J6EbWwlr dHI+LC82KMFhPJ77dCPtwCDqg7 umjJq6QzPsFAJzYUB1xDfaTWun s5LmIVHeX00fmFXvq0E9PNUo nFmluFGsJxQuyWF5fO8lFOuyqz buy6urrpyiPwddw5ewaz29xP76 B88vADdnENWlQRTnOEAbGYUk wYatpx7gjE4yPj9+CORwsPK4aP Y1sW4yYnWtIqC0TUghA297DeEl xXPxBbzhe2njd9pgvNp8TiAd EMWfwzJzwIllUXW1x5XxWw87B0 9sIHdpZHRoPSIyMCUiIHZhbGln mc5hjM7xZa5+UJ1is8actd14 jW47fEQ+EQChXGM2sGvyUWprOD JorB1hSCmdZnO3PJSuSjOrgD45 qDOjYYeiWe1wnVsweYxmSW6f NBWfbqcjb917MuBje2nmXMNcuV GcZCcxQQF7X42xc3V8IUClDYKy TTD6dDU2pF9zbUsyvwikdTFb gZwfdpZibRdtCRjmQEvqF382YL FpkVwfMtSmzJCmB9qjmcVDAH1d OjwvdGQ+BOVwVLC5wQriJSff RQFtgD8zAODrS8f7PlFqYpK7OT ihI6CouxL3AFRtnFFoZUJpuGRW gN0ttcaud6cuvwndMtArOPNy CKg8OEx0RSAnjVdeQfIlDOM9Gs H9FCA6lBNqgF4kzQsjbbygaH1u Oyc+RklOOjwvdGQ+PHRkIHN0 yUboMNovLIQjyP7pHXCfO6a5Fi OdZyW5JFgiS0UtnjG0CTVmxOBx OYWfxPLYfM6uirnxs2gxmufn UxDaIUHiVRq6EEa0HYSvtJatEk SbMCG9RfD2NMW0sKTqxU5ymKig bbymqO3aCta+TVJOOjwvdGQ+ AOLeRXM6oFmdQPlhNPApxO0bFP ZpH3g8MnMdUtM3CKnjE8FajtR8 PKPfgEMeSTWelNWPrX4hlhpx u1afwusaXwAxBRKzZZv0OEa6SU CnnJzcLqViYMK3QzS0DGC1mQWt tI6wvTzgxyhieX4zWpt+UGF5 ULD9TY23RZ57T5CqVnsmjXEedN U+PHRhYmxlIHdpZHRoPScxMDAl JmQbqVldHC4xNj0dCFKjWFDx bGxh (more content not included)... Normal [facility] Office Visit (Cardiology)on 03-06-2022 Follow-up visit Diagnoses/Problems [...] negative for complaint. Vitals Vital Signs Recorded: [id number] 03:48PMRecorded: 21Zgz7080 03:25PM Ebmziyjh190, LUE, Rsaqtuc595, LUE, Sitting Ssbjircvb89, LUE, Ibnzjjr43, LUE, Sitting Heart Rate66, L Radial Height4 ft 9 in Ikclei985 lb BMI Xfeaebcyhc75.37 kg/m2 BSA Calculated1.38 Tobacco Useb) No Falls [...] Mar 06 2022 4:39PM EST (Author) Normal [facility] Tobacco Screening.on Fall risk assessment a) No falls within the last year [facility] y 250 DO Work Phone: Tobacco use status [facility]PH[facility] b) No [facility] y 250 DO Work Phone: IntraOperative Documentson 1 05-04-2021 IntraOperative Documents [id number]:127 Normal [facility] General Surgery Office/Clini c Noteon 03-03-2022 General [...] after patient or guardian consented to allow [employer] to record this visit. ANA M clinical trial specialist and provider reviewed before signing. ANA [...] list Allergies Percocet (Nausea) Darvocet-N 100 (vomiting) Peterson (Vomiting) oxyCODONE (Vo (more content not included)... Normal [facility] Comment on above: Result Comment: Elec tronically [...] This test was performed at: [facility], [address] [place] [address], [address] , [place], Normal [facility] Comment on above: Performed By: #### 2 [id number], [id number] #### [facility] [address] [place] [address] Coding Summary.on 02-25-2022 Coding Summary. CD:[id number]:[id number] Gh0bWw +PGhlYWQ+DZ5BEUUnS15saAZmv G9RZ8iHCK8HAYEONXEERE3CDQ8 tkYB1BRlaK3OyyjGg PcdvmTUtZF56UZy0GIL3lQlyGM fueW9vwJLdY8l4MuPdEM80cN52 UJnkKHCiLdT6SgTjcgwwoJKg W9rrPuPftBRtMdm+PHRhYmxlIH wpVOIdVGluTAEgOgWraGmvVZ2i Dh7rBUHmHNFiyHjecJRhAuTo w5wxVSZjBBlhYR2myWkdV4SsiJ V0ZAWxj1f0Ly22aZE+PHRkIHN0 fWhmBSnpw391SxVqq6uiPSL6 dEIuLLspBSY3D82oz3H9KLZfLG MnLNQ8zTS3lJ3xrCuuttoiE0Bl tPHaWcI3FUR9tVFuqL3pjInj ygpduN3wKcf+U33VUX9FVXUWRL 6IYgv4L5WxAojtwVQ+HZ95JKJv FY71jNFgsZSbu5gmeHc6NaMs KAHgFQJ2pXsrGYnij6PiEXCeS9 5lvLWud1W5PBNjeOercELzUjEe mKK0iH3nDDjpxcyan2kvcpfa Buyni1rumr19lQ73I25aPSyvJD CoBDS8VEJiQQVyuKxzfj3dyL4w Ii8+YLyak5qsx1vyrNx3CnNz TWWkloOxlRmxTZH9d0CkQt21B4 NwnOsgy3UbMrb9ho85sPUzp1D3 pRY6MDfoPSZtbK2qHCseFfE9 PEUyHlPdtB91vRZkPUscFh7xfE bfoVmaMS5cSTDrjsvoVHGjrX3e PTZnnZTbxBbiDG6zUVGjhqrb a422ShLmQHS0SKXapXUzB2FujX 9wIqSoVKIzZKGpS8IrmDCrTLio X523SOakTaH7CWDwkmLlQ5Lx JBIdoFtyKlW4w7O8Na6Pq4Asfq ynTZE0DCsbRNUwJdBmVjPyQoB8 Y8LxLhg3QPDyzQycQM4dU6Xh SINfenigjvsniFN5UDYqWQUzzV 48bSCxXKsiRv0gj9L4q643AKKa PBXydM44Rl8hcLbkTLAvtAAC uV2kgswiw9uwbypqZiVxGZWtRB k1FFw4EKCapNjeFaMpYSK6VgB3 PEV9eONdiL4huVxlotulrY0z Oyc+R86jpC8vXIE2XMG4svutEJ XiyxMrHW03UQ48C4WsJcxpcLPt bGU+UUUbylHmvGxoTB9kIdCq z4pob6TnUBviK4MfUNLuFZvzQu j9DUSmQXT4rPM5iT7lWVDbNMzg i8V5sNH4H0DgfuDcgp2zq6zy ZEUsXXfcY50eeFHio6D5LYYkzA V8PVFmgLhlPlXolL42Swd+PGNv vEvzt9KoOnquf4nii2ofiMm9 CfZkEUCyeyXczWguACI5g9AxFu 95X80xYHrcBXUqWKIoFIKgSELl uNbugz7arM0pJj7+PGNvbCB3 yOW3nX6jEPXeJhR5CHkjA126Id DkuYLiLdtyk5zpb6bgxMv9KrKi PPRjigNnrCmwURS6g1CrSy24 T52tPCzhRWAqSFSyHYYxNMPlxW mpmm3syH6uKd9+LU5yw4bztm98 gY01rVW+QGJfMNZ7iHrfKFxo HCWupE9qWSmdChG3XDHfMhWebU 88lQZiDXdjFe8chRqnuZscRO5n SZEmonblc205CfXhd2yfAHVo aWWrSWynRCE4J44ah8J3JMApIY HlDBU5tWB5tA2iiSezfnrueEUj vRswhdZkqJshMRnmGDkqY544 IHRvcDsnPlBhdGllbnQgTmFtZT v1Z7GlIqe8BRJeoSioVD5uxTHw LFyiVv9ymLtdxQkmQR8tKVIu avbtx003BdPax1hnSSRheOUmIL ocXSY9N22xq4S5OIVoYKMyUNM9 pPP3rR7dtUsrmtqllJZjoXei kbEdlJceXMotLShuR594JAUtjJ laTrTahmRcJLVhzYZ5TZ78RK33 vDMaf3K1nDH1S7QxZLArawxa eotvcSC6NXAeTGYpvW12Ym6fgD hrFd2yXZVzOEE8ADBljGOmL8De qQ6yKaOxYKGsNXMvS8KxdNZu PNgqP229GImhNxN6DVOssgKvK0 KtTZHumSiqJzO1c1A3Lh0QQ9W4 UF90NX72xPZsg8U9hVI5W2Fh GMIahtwdgvqreTJ1EQOgXRYizX 91Ok7spCykRz2wSAHjKQF2GDDg pUTiP7ZdhN1mWdYeRULwUOKp Z1EigRKyYYtxZ252NXtkIbM4MI ZkghOjI4DfOYOgqNiuXjP9k0R8 Sb2EYQd6VL11XE77fOXlk6X1 gYK4S0RbJMPohrlevfyqmHQ8PB NvKPLubZ96Rq8nmBjfLo3eDTYs GUD6IHMexBXzW3VdaA4gNdYt XLIaPCKjV0LruWWtASpvZ138VL hrPoH9BMCjkcAsI3GnNREgeMaq WwE4u2N7Nu9UCVRbON09YVY9 qDN0TR80TM83U2DmBksiwULvnX U+PHRhYmxlIHdpZHRoPScxMDAl SrVayUezGV1dMt6bLOKvZKVi jRguiWIwSzXhj7vmHJWfSZueME 9mgLwrA5EycGS9XGMkb8e2Px25 V84bD5PnxDR+FOEpuYA7tPH6 xP4eExGuRxO3WTatR803JxJuaH LlGoxky3fgt6pprKf7MgJ7EGRf spJhbTxnGEZ1y0LfUh70S12a IHdpZHRoPSIxNSUiIHZhbGlnbj 6hfS0nAm7+WIRneFE0gMK3kD8v JxTsOjC1CFldI137QcOnpMOi Dspwo3rhj7kufQw6VeDbLLFybo HygFhbMGP8f6YoHo40K7VozGkj h1UkYfk5iu23vEZtd8K6wAL2 W3WpDXKmgrezlNEmsWncSK9sNU LwuwcqMNFuvO2kFUWsF6q7AwOb LnV7OEtzO1BlvyJ0WNPgjVOu HYjmHIX3O03ly1E5DJMwVVKpZP M9xTI9sU7stPckfzlldUJauXgt qqYiaJhvVVqwDRusY376ESHk jCfhPBTmbQ8yDSTtxHQvfSpcOZ 4nPLAjoxdzIzPFG1OPW5QyWXIV SJWXC5lVNI05UP13lFJpw1A6 vDE7M8FsAQAnkjgtotqwtJF9NL JwZBVrqG28yRAlIJynFm1zz8S4 x002OJEnLVYkhZ09Vn0asMuw OWNdiMRBkM1yxkool2fdrcphXo QgASIyBWv9CRc3RIXmbYvbHjUw WJU4EdX8GPA3mYIdqP6qvXld besyuE9uOqx+VDVdEDCpKUj2Tn wvdGQ+QKEvLAO0jAfoIAbdXKSx aS8lPLTiI3y4KzEtWzB5CGux L8KuHJPdorlsKw28vI8sRkWrFf U2ZVbaI3SxwnQ4EVCdmTTfTFfj PLM4D40bh6X8BTFcMJVmSZX4 bNV6jD1qcMezofkqtYSoeBvovn BxlRxaTNkjZCtwM523HTOogOzx Ykq9GBcpARYrUY47UA82qPOf e5W2hLS3M9UwVCRacnuaxdqfuT W0PWHbVFSkrN58lDGtSFlhHq2u d8H6z629RPPmQZJolK57Zg9y bQhkQZGwxZOBrR2dpmomu2udln boBjEcNEDjHTx5OEg2GWMwjEyn GkCqLWG1CwU1EDJ0qUTreC2a zOugloxzeP0lVsm+RmVtYWxlPC 48YB45ySWfp6U6eCV5E9CrGFLr ztkflliyzVY4MOUzVNDfqP51 sNMbFRfnAi0tc7N9g818UWSdSJ WjdD19Ia9jbRbzHUEocKXObQ0t txhic0rbmnupBqPlEVNkXNs7 HMw2CCGxnKmeApBfBIS0RlP3YM A1cCBepI5sjDeurnshzV6cHux+ JD6jzXznnK7alD8AID3sIPFo sPFOrGWgBUR2CX04AW46M4FhOd wvdGFibGU+PHRhYmxlIHdpZHRo HNgcRJVfQcRhvJevPZ2pFw8d YVMhQXHgyRflgIJzDyJco2ntDQ QmEMhdGB3sySmkO8NglQJ1QJIo j9m9Xu14B91rN3PjsBV+PGNv aEP0cJL4qL2yJiWkYoU9FNegZ4 36SdLglNKeIoqko1qjf8qysCe2 SwKbKURmyuFgdEgsQVO8l8Nu Fk10F24jSWxyASQmYBWlJIZpWM CooQicyx2wuI3zAw7+PGNvbCB3 kVQ2hA7mRvDuEhL0MOzdY323 DfUguWSnAixsG78oD5OeeUM+PH WoNya1JXSakBrjRR5wyUNtQCer Uv8kDMG8GlOqEbSiIEaaN1Hr TKTzitcxhjfryCN5RZCoSMUfyQ 12Qk8fqNbwFs7jMFNsJBB7AKWr sWCrH2KjfE8jAhPaQNBqECKn Y9FzqVOkLCirP533LJqaTcW1TR VuizHtC4JlHULxdSdnTtP1x4B9 Xi3PcZufqQRdPW2bBnIaKDb2 Z4VaLwj6JPKavSlrPX6azEVbYN sqIp4jsQexjRbdXG5hUTOplesu z471AqGia1enGTXbbDUqEVsr IPC8Z07mj7L2MZZuGXLzBQB3uD C1hQ1ejTyblzlcmHAjpSoovcLj zZbeJSwfVCixW978QSUiyMlu VkJPDml8V8QeTgz4XFCaiMavYQ 2rqQEzLChhIc5xwMtcaOtwGT8o FEBfjbcbm975WwKpx3khZSDp uJZySBwyAKD3V04ve4R1OPDiWG NyAYI5mAS0qO2tcOoxryjubHDr kYfajfJnsBxnFCxhIZyeA867 TOIxtKdoCc4KNxr7I2FcKdm8TT GbjKsrVC9vsONdVNdnUd5rvUcd fEekCA3rVUUiucxgv289PzQz b6plWAGppWVgPKmgBNG8X46fw4 A0LKOvGYHqCST6yVS3mG8snNap bjogbGVmdDsgdmVydGljYWwt UQzrQ405SHTqrJrzSpSesDWgGr wvdGQ+QP21tq89F8BvKdloEwx2 NGFeOHH7uQW2eY6oRGHoXNzw c3R5 (more content not included)... Normal [facility] Consultation Noteon 02-26-20 Consultation Note Patient: MAYA [...] STABLE AND NO WORK UP NEEDED Normal [facility] Comment on above: Result Comment: Elec tronically Signed By: Lisy ERIC, Nick Cheema\.br\Date and Time Signed: 02/25/22 14:40 EST Discharge Instructionson Discharge Instructions [id number]:127 Normal [facility] Inpatient Clinical Summaryon 02-25-2022 Inpatient Clinical Summary [place] [id number] Clinical Summary Person Information: Name: ADINA PERRY Age: 81 Years : 1940 Sex: Female PCP: ADRIANA CRUZ DO Marital Status: Race: White Ethnicity: Non- or Language: Polish Visit Id: Visit Reason: Fatigue; Post surgical problem; ABD PAIN, ABNORMAL CARDIAC ENZYME LEVEL Speciality: Acuity: Enc Type: Observation Med Service: Medical Arrival: 02/24/2022 13:07:19 Discharge: Dispo Type: Admitted as IP to this [facility] Address: [address] [place] [address] [address] [place] [id number] Provider Notes: Diagnosis: 1:Abdominal pain; 2:S/P hernia [...] Percocet (Nausea) Darvocet-N 100 (vomiting) oxyCODONE (Vomiting) Peterson (Vomiting) Measurements: Height: 146 cm Weight: 49.7 [...] With: Address: When: ADRIANA TIRADOYazNELSON [address] [place] [address] [facility] () 03/10/2022 11:00 AM Comments: Appointment will be with the BELT OPERATOR With: Address: When: Jay Power 03/03/2022 9:00 AM Comments: Call for followup appointment 2-3 weeks or if already scheduled keep appt. Type Location Start Finish State Post Op 15 [facility] 03/03/2022 9:00 AM 03/03/2022 9:20 AM Confirmed Patient Education Information: Weakness; Abdominal Pain, Adult, Trzg-mi-Xbva Normal [facility] Inpatient Patient Summaryon 02-25-2022 Inpatient Patient Summary [...] EST With: Jannet ERIC, Jay Lock Where: [facility] Inpatient Patient Summary ADINA PERRY :1940 Visit [...] EST With: Jannet ERIC, Jay Lock Where: [facility] Inpatient Patient Summary [place] [address] Patient Discharge Instructions PERSON INFORMATION Name: ADINA PERRY Date of : 1940 Current Date: 02/25/2022 15:24:21 PHYSICIANS Admitting Physician: MELI ERIC [facility] Primary Care Physician: ADRIANA CRUZ [...] Follow up: With: Address: When: ADRIANA NANCY [address] [place] [address], [place] [address] [facility] () 03/10/2022 11:00 AM Comments: Appointment will be with the BELT OPERATOR With: Address: When: Jay Jannet 03/03/2022 9:00 AM Comments: Call for followup appointment 2-3 weeks or if already scheduled keep appt. In the event that this physician does not participate in your insurance network, please consult with your insurance company to find a nearby participating provider. Type Location Start Finish State Post Op 15 [facility] 03/03/2022 9:00 AM 03/03/2022 9:20 AM [...] ? Stre (more content not included)... Normal [facility] Interdisciplinary Note - Reji e Manageron 02-25-2022 Interdisciplinary Note - Retail Agent CRM to room to discuss DC planning. Patient is alert, oriented and participates in DC planning. Patient is from home alone, has good family support. Patient daughter will transport at DC. Patient PCP, home DME and insurance reviewed. Patient is observation for abdomen pain and abnormal cardiac markers. Patient had a CT of abdomen and chest, see reports. Patient was rounded on by [facility], CRM waiting for updates. Patient is getting IVF. She is pending consults of gen sx, and cardiology. Patient was evaluated by PT/OT and they have no recs. Patient denied need for HH or PT. Patient provided CRM contact information, white board updated. Patient anticipated DC later today or 02/26. CRM following Normal [facility] Comment on above: Result Comment: Elec tronically [...] safely and independently once medically stable. Normal [facility] Main OR Intraoperative Recor don 02-25-2022 Main OR Intraoperative Record Normal [facility] Monitor Recordon 02-25-2022 Monitor Record [id number]:127 Normal [facility] Monitor Record [id number]#[id number]:127 Normal [facility] Postoperative Documentson Postoperative Documents [id number]:127 Normal [facility] Troponin 9 Hr.on 02-25-2022 Troponin I.cardiac [Mass/Vol] 90.10 pg/mL Abnormal 10.10-27.1 0 [facility] Comment on above: Result Comment: Crit ical [...] Olivia, November 2017) Performed By: #### 1 [id number] #### [facility] [address] [place] [address] Auto Diffon 02-24-2022 Basophils/100 WBC (Bld) 2.8 % High 0.0-2.0 [facility] Comment on above: Order Comment: Order Added by Discern Expert. Performed By: #### 1 [id number], 9260618, 2196570, 5943695, 94740510, 7451327, 9647474, 1020393 ####[facility] [address] [place] [address] Basophils/Leukocytes Auto (Bld) [Pure # fraction] 0.2 E9/L Normal 0.0-0.2 [facility] Comment on above: Order Comment: Order Added by Discern Expert. Performed By: #### 1 [id number], 6805553, 2370362, 2042380, 01520827, 8859566, 8754495, 4338429 ####[place] [address] [place] [address] Eosinophils/100 WBC (Bld) 3.6 % Normal 0.0-8.0 [facility] Comment on above: Order Comment: Order Added by Discern Expert. Performed By: #### 1 7295377, 7788941, 6168718, 2313459, 80885872, 7470316, 2626367, 0941076 ####[address] [address] Eosinophils/Leukocyte s Auto (Bld) [Pure # fraction] 0.3 E9/L Normal 0.0-0.5 [facility] Comment on above: Order Comment: Order Added by Ramírez Expert. Performed By: #### 1 9448051, 4864678, 6256171, 3795035, 17583019, 1231249, 9563518, 6058238 ####[address] [address] Lymphocytes/100 WBC (Bld) 12.3 % Low 14.0-50.0 [facility] Comment on above: Order Comment: Order Added by Ramríez Expert. Performed By: #### 1 9829581, 5326158, 3754091, 6231551, 07940937, 0304222, 1850373, 3958955 ####[address] [address] Lymphocytes/Leukocyte s Auto (Bld) [Pure # fraction] 1.0 E9/L Normal 1.0-4.0 [facility] Comment on above: Order Comment: Order Added by Discern Expert. Performed By: #### 1 0524302, 1480923, 5325179, 0567319, 57059245, 5246794, 5849165, 0950349 ####[address] [address] Monocytes/100 WBC (Bld) 7.4 % Normal 4.0-14.0 [facility] Comment on above: Order Comment: Order Added by Ramírez Expert. Performed By: #### 1 9421617, 1916824, 5403750, 0307346, 63086788, 2992908, 3699147, 6816019 ####[facility] [address] [place] [address] Monocytes/Leukocytes Auto (Bld) [Pure # fraction] 0.6 E9/L Normal 0.2-1.0 [facility] Comment on above: Order Comment: Order Added by Discern Expert. Performed By: #### 1 8733023, 6217082, 7223366, 5383617, 95495950, 3752002, 2313825, 7504468 ####[place] [place] [address] Neutrophils/100 WBC (Bld) 73.9 % Normal 36.0-75.0 [facility] Comment on above: Order Comment: Order Added by Discern Expert. Performed By: #### 1 8908459, 7627247, 7692003, 4009864, 75479662, 2220963, 5781741, 6656196 ####[address] [place] [address] Neutrophils/Leukocyte s Auto (Bld) [Pure # fraction] 6.2 E9/L Normal 2.0-7.5 [facility] Comment on above: Order Comment: Order Added by Discern Expert. Performed By: #### 1 8608798, 7068563, 3308088, 3343224, 45208178, 9115285, 1060263, 6072870 ####[facility] [address] [place] [address] BMPon 02-24-2022 Creatinine [Mass/Vol] 1.1 mg/dL Normal 0.5-1.3 [facility] Comment on above: Performed By: #### 1 7454427, 8695574, 6381645, 6513700, 40657440, 2255314, 0208098, 6215337 ####[facility] [address] [place] [address] Urea nitrogen [Mass/Vol] 18 mg/dL Normal -21 [facility] Comment on above: Performed By: #### 1 8409869, 9008245, 5637267, 9807703, 35227591, 4368624, 2163891, 8145515 ####[facility] [address] [place] [address] Urea nitrogen/Creatinine [Mass ratio] 16 No Units Normal 10-20 [facility] Comment on above: Performed By: #### 1 6743865, 5848511, 7417307, 0616478, 82531449, 2578354, 2586658, 4985371 ####[facility] [address] [place] [address] Anion gap [Moles/Vol] 16 mmol/L Normal 6-16 [facility] Comment on above: Performed By: #### 1 4788710, 8253667, 0559377, 2356015, 64587417, 9500008, 4484557, 9305408 ####[facility] [address] [place] [address] Calcium [Mass/Vol] 10.5 mg/dL Normal 8.9-11.1 [facility] Comment on above: Performed By: #### 1 7550726, 5206248, 4473782, 7778766, 46267550, 9859548, 4795145, 1789518 ####[facility] [address] [place] [address] Chloride [Moles/Vol] 97 mmol/L Low 101-111 [facility] Comment on above: Performed By: #### 1 5086557, 4048446, 6971452, 1189397, 36534923, 7145970, 0942778, 2554779 ####[facility] [address] [place] [address] CO2 [Moles/Vol] 28 mmol/L Normal 21-31 [facility] Comment on above: Performed By: #### 1 0893733, 3521594, 1216489, 6710347, 36248715, 6040764, 8843342, 5646821 ####[facility] [address] [place] [address] Glucose [Mass/Vol] 137 mg/dL Normal 55-199 [facility] Comment on above: Result Comment: If t his glucose result represents a fasting glucose, interpretation should refer to the following reference range: 55-99 mg/dL Performed By: #### 1 5006450, 4368181, 8737313, 3009626, 22403815, 0082248, 7410669, 4578047 ####[facility] [address] [place] [address] Potassium [Moles/Vol] 3.5 mmol/L Normal 3.5-5.3 [facility] Comment on above: Performed By: #### 1 8612698, 3636891, 1086971, 0082855, 74592253, 8788660, 5961222, 9746837 ####[facility] [address] [place] [address] Sodium [Moles/Vol] 137 mmol/L Normal 135-145 [facility] Comment on above: Performed By: #### 1 7894348, 2745364, 9668032, 9248040, 40270440, 2439296, 7285958, 1106133 ####[facility] [address] [place] [address] CBC w/ Auto Diffon Erythrocyte distribution width (RBC) [Ratio] 13.4 % Normal 10.9-14.2 [facility] Comment on above: Performed By: #### 1 5668153, 5628549, 0410726, 3926035, 67270384, 7070239, 4744352, 4798516 ####[facility] [address] [place] [address] Hematocrit (Bld) [Volume fraction] 39.5 % Normal 34.0-46.0 [facility] Comment on above: Performed By: #### 1 3688343, 5310425, 2146707, 9246665, 48242651, 1737656, 0892101, 2855905 ####[facility] [address] [place] [address] Hemoglobin (Bld) [Mass/Vol] 14.1 g/dL Normal 12.0-16.0 [facility] Comment on above: Performed By: #### 1 0030310, 9032676, 5112987, 6040962, 63797874, 7168605, 9761628, 7125911 ####[facility] [address] [place] [address] MCH (RBC) [Entitic mass] 31.2 pg Normal 27.0-34.0 [facility] Comment on above: Performed By: #### 1 3101655, 7630796, 8755720, 1331423, 50236312, 6230793, 2132063, 6012806 ####[address] [place] [address] MCHC (RBC) [Mass/Vol] 35.7 g/dL Normal 31.4-36.0 [facility] Comment on above: Performed By: #### 1 2180205, 7688216, 7157543, 8889994, 47129888, 9804088, 8688918, 6023098 ####[address] [address] MCV (RBC) [Entitic vol] 87.4 fL Normal 80.0-100.0 [facility] Comment on above: Performed By: #### 1 6023392, 7604465, 5202303, 3529527, 76752579, 3668291, 0465281, 9368925 ####[address] [address] Platelet mean volume (Bld) [Entitic vol] 8.3 fL Normal 6.4-10.8 [facility] Comment on above: Performed By: #### 1 3429463, 7272478, 2716901, 5972715, 64288248, 3669082, 9259279, 4096247 ####[address] [address] Platelets (Bld) [#/Vol] 295.0 E9/L Normal 150.0-500. 0 [facility] Comment on above: Performed By: #### 1 1520383, 7745683, 2001626, 4016911, 41051879, 2733768, 9070712, 8056938 ####[facility] [address] [place] [address] RBC (Bld) [#/Vol] 4.5 E12/L Normal 4.3-5.9 [facility] Comment on above: Performed By: #### 1 6825354, 7576503, 8350788, 5854604, 91900376, 7719383, 6338097, 6368358 ####[facility] [address] [place] [address] WBC corrected for nucl RBC Auto (Bld) [#/Vol] 8.4 E9/L Normal 4.0-11.0 [facility] Comment on above: Performed By: #### 1 0769198, 1446881, 6600989, 1601292, 10018214, 5693903, 2746669, 5565603 ####[facility] [address] [place] [address] CT Abdomen/Pelvis w/ Contras ton 02-24-2022 CT [...] FINAL REPORT (more content not included)... Normal [facility] Consent for Treatmenton 02-05 Consent for Treatment [id number] Normal [facility] ED Clinical Summaryon 2021 ED Clinical Summary (Inserted Image. Elvia ble to display) [place] [address] ED Clinical Summary Person Information Name: ADINA PERRY/[facility] Age: 81 Years : 1940 Sex: Female Language: Polish PCP: ADRIANA CRUZ DO Marital Status: Visit Id: Visit Reason: Fatigue; Post surgical problem; [id number] PAIN Speciality: Acuity: 2 Enc Type: Emergency Med Service: Emergency Arrival: 02/24/2022 13:07:19 Discharge: LOS: 000 05:49 Checkin: 02/24/2022 13:07:19 Checkout: 02/24/2022 18:56:59 Dispo Type: Admitted as IP to this [facility] EVENTS: Event Name Event Status Request Date/Time [...] 02/24/2022 18:56:59 02/24/2022 18:56:59 02/24/2022 18:56:59 ADDRESS: [address] [place] [address] [address] [place] [phone] PHYS DOC NOTES: MEDICAL INFORMATION: Prescriptions Given: [...] Abdominal pain; Abnormal cardiac enzyme level Normal [facility] ED Note-Physicianon 02-25-20 ED Note-Physician Basic Information [...] she is known to Dr. Wasserman from [facility] cardiology. She also stated that previously she [...] puff(s), Inhalatio (more content not included)... Normal [facility] Comment on above: Result Comment: Elec tronically Signed By: Jay Emery DO\.br\Date and Time Signed: 02/24/22 17:27 EST ED Patient Education Noteon 02-24-2022 ED Patient Education Note Normal [facility] ED Patient Summaryon 022 ED Patient Summary (Inserted Image. Elvia ble to display) [place] [id number] Patient Discharge Instructions Person Information Name: ADINA PERRY Age: 81 Years Arrival Date: 02/24/2022 13:07:19 Discharge Diagnosis: Abdominal pain; Abnormal cardiac enzyme level Primary Care Physician: ADRIANA CRUZ DO Provider Information Primary Provider: Jay Emery DO Advanced Vending Route Servicer:None The exam and treatment you received in the Emergency Department were for an urgent problem and are not intended as complete care. It is important that you follow up with a doctor, nurse practitioner, or physician?s assistant statistician for ongoing care. If your symptoms become [...] opioids can be used to help relieve hqekxnpj-my-iznfdr pain and are often prescribed following a [...] be struggling with addiction, tell your health senior care assistant and ask for guidance or call [facility]?S National Helpline at 0-706-472-CDLP. l Source: US Department of Health and Human Services/Center for Disease Control & Prevention [facility] Medications Given: Med (more content not included)... Normal [facility] Hep Func Panelon 02-24-2022 Albumin [Mass/Vol] 4.4 g/dL Normal 3.3-5.0 [facility] Comment on above: Performed By: #### 1 2875756, 7810008, 7480409, 7905558, 32366923, 0083931, 9649212, 9818703 ####[facility] [address] [place] [address] Albumin/Globulin (S) [Mass conc ratio] 1.3 Normal 1.1-2.2 [facility] Comment on above: Performed By: #### 1 5603907, 4253151, 9794088, 3158200, 74344996, 0219360, 2920895, 7203285 ####[facility] [address] [place] [address] ALP [Catalytic activity/Vol] 72 Int._Unit/L Normal 21-98 [facility] Comment on above: Performed By: #### 1 8534185, 1621178, 0078722, 4931709, 56465405, 8216384, 6479273, 4034828 ####[place] [address] [place] [address] ALT No additional P-5'-P [Catalytic activity/Vol] 16 Int._Unit/L Normal 6-46 [facility] Comment on above: Performed By: #### 1 4950049, 1572383, 3985392, 8807999, 63542618, 5792918, 1506110, 1533015 ####[facility] [address] [place] [address] AST [Catalytic activity/Vol] 18 Int._Unit/L Normal 5-43 [facility] Comment on above: Performed By: #### 1 8938558, 3791751, 7152176, 0546013, 85185569, 7988266, 0753381, 9460244 ####[place] [address] Bilirubin [Mass/Vol] 0.7 mg/dL Normal 0.0-1.1 [facility] Comment on above: Performed By: #### 1 9965814, 6554799, 7348597, 1044428, 23281283, 8037174, 1373491, 0484487 ####[place] [address] Bilirubin.direct [Mass/Vol] 0.1 mg/dL Normal 0.1-0.4 [facility] Comment on above: Performed By: #### 1 7258111, 1800666, 4115194, 4193583, 17654216, 8892172, 9119857, 9611340 ####[address] [place] [address] Bilirubin.indirect [Mass or moles/Vol] 0.6 mg/dL Normal 0.1-0.9 [facility] Comment on above: Performed By: #### 1 7896675, 8431907, 1994978, 5488630, 41244874, 6311823, 7121882, 3653989 ####[address] [place] [address] Globulin (S) [Mass/Vol] 3.5 g/dL Normal 1.4-4.0 [facility] Comment on above: Performed By: #### 1 6597376, 4709760, 3290552, 7940905, 31612881, 1444366, 3834203, 4242189 ####[facility] [address] [place] [address] Protein [Mass/Vol] 7.9 g/dL High 6.0-7.8 [facility] Comment on above: Performed By: #### 1 0500348, 6843643, 0173658, 8094591, 83711874, 2871107, 1430258, 3212383 ####[facility] [address] [place] [address] Lactic Acidon 02-24-2022 Lactate [Mass/Vol] 1.5 mmol/L Normal 0.5-2.2 [facility] Comment on above: Performed By: #### 1 7458707, 9928727, 0491599, 0021127, 16191922, 0108261, 0103292, 8535804 ####[facility] [address] [place] [address] Lipase Levelon 02-24-2022 Lipase [Catalytic activity/Vol] 43 U/L Normal 13-58 [facility] Comment on above: Performed By: #### 1 2451775, 7773498, 8477347, 5139129, 06129802, 7285818, 9416931, 2866591 ####[facility] [address] [place] [address] Monitor Recordon 02-24-2022 Monitor Record [id number]#1.00CD:127 Normal [facility] Monitor Record [id number]#1.00CD:127 Normal [facility] Operative Reporton Operative Report SURGERY DATE: 11/16/ 2022 GALLERY OR MUSEUM CURATOR: Kylie Costa, Certified Iron Piler INDICATION FOR SURGERY: The patient is a 81 year old female with previous abdominal hysterectomy performed in an open fashion in the presenting with a 2 cm incisional hernia that is symptomatic seen on computerized tomography scan from [facility]. She is here today for robotic [...] condition. Jay Power M.D. lr Dictated: 02/19/2022 [id number] Transcribed: 02/19/2022 Normal [facility] Comment on above: Result Comment: Elec tronically Signed By: Jannet ERIC, Jay Lock\.br\Date and Time Signed: 02/24/22 07:55 EST Troponinon 02-24-2022 Troponin I.cardiac [Mass/Vol] 105.90 pg/mL Abnormal 10.10-27.1 0 [facility] Comment on above: Result Comment: Crit ical [...] Olivia, November 2017) Performed By: #### 2 294849 #### [facility] [address] [place] [address] Troponin 0 Hr.on 02-24-2022 Troponin I.cardiac [Mass/Vol] 96.00 pg/mL Abnormal 10.10-27.1 0 [facility] Comment on above: Result Comment: Crit ical [...] conjunction with clinical conditions of myocardial infarction. (MENA360 High Sensitivity Troponin I Instructions For Use, [facility], November 2017) Performed By: #### 1 7769655, 6556016, 3431145, 1734535, 60312139, 5224522, 1977162, 1038546 ####[facility] [address] [place] [address] Troponin 6 Hr.on 02-24-2022 Troponin I.cardiac [Mass/Vol] 105.10 pg/mL Abnormal 10.10-27.1 0 [facility] Comment on above: Result Comment: Crit ical [...] conjunction with clinical conditions of myocardial infarction. (MENA360 High Sensitivity Troponin I Instructions For Use, [facility], November 2017) Performed By: #### 1 0024732 #### [facility] [address] [place] [address] UA With Cult Reflexon 2021 Bilirubin Ql (U) Negative Normal Negative [facility] Comment on above: Performed By: #### 2 722115, 26982384 #### [facility] [address] [place] [address] Clarity (U) CLEAR Normal Clear [facility] Comment on above: Performed By: #### 2 161051, 08000571 #### [facility] [address] [place] [address] Color (U) YELLOW Normal Yellow [facility] Comment on above: Performed By: #### 2 022576, 60745202 #### [facility] [address] [place] [address] Epithelial cells.squamous LM.HPF (Urine sed) [#/Area] 0-2 Normal 0-2 [facility] Comment on above: Performed By: #### 2 897851, 57295039 #### [facility] [address] [place] [address] Glucose Test strip (U) [Mass/Vol] Negative Normal Negative [facility] Comment on above: Performed By: #### 2 080471, 64914903 #### [facility] [address] [place] [address] Hemoglobin Ql (U) Negative Normal Negative [facility] Comment on above: Performed By: #### 2 050492, 24091223 #### [facility] [address] [place] [address] Ketones (U) [Mass/Vol] Negative Normal Negative [facility] Comment on above: Performed By: #### 2 624736, 32125528 #### [facility] [address] [place] [address] [place].plasma/Lithiu m.RBC (Bld) [Mass ratio] 0-3 Normal 0-3 [facility] Comment on above: Performed By: #### 2 043070, 48469300 #### [facility] [address] [place] [address] Nitrite Ql (U) Negative Normal Negative [facility] Comment on above: Performed By: #### 2 374944, 27439109 #### [facility] [address] [place] [address] pH (U) 7.0 [pH] Invalid Interpretation Code 5.0-9.0 [facility] Comment on above: Performed By: #### 2 355481, 47373390 #### [facility] [address] [place] [address] Protein (U) [Mass/Vol] Negative Normal Negative [facility] Comment on above: Performed By: #### 2 318528, 61821307 #### [facility] [address] [place] [address] Specific gravity (U) [Rel density] 1.010 Invalid Interpretation Code 1.005-1.03 0 [facility] Comment on above: Performed By: #### 2 531932, 97121939 #### [facility] [address] [place] [address] Type of Urine collection method Clean Catch Normal [facility] Comment on above: Performed By: #### 2 299167, 44672021 #### [facility] [address] [place] 6[address]357 Urobilinogen Qn (U) 0.2 {Gemma'U}/dL Normal 0.0-1.0 [facility] Comment on above: Performed By: #### 2 359792, 87834635 #### [facility] [address] [place] [address] WBC Auto Ql (U) 1+ Abnormal Negative [facility] Comment on above: Performed By: #### 2 882007, 17324464 #### [facility] [address] [place] 6377357 WBC LM.HPF (Urine sed) [#/Area] 0-5 Normal 0-5 [facility] Comment on above: Performed By: #### 2 954829, 33568813 #### [facility] [address] [place] 6377357 XR Chest Single Viewon 02-24 XR Chest [...] DO Transcribed by: PRESTON Technologist: JOSEPH, Normal [facility] eGFRon 02-24-2022 GFR/1.73 sq M.predicted among blacks MDRD (S/P/Bld) [Vol rate/Area] 58 mL/min/1.73 m2 Low >=59 [facility] Comment on above: Order Comment: Order added by Discern Expert. Result Comment: eGFR is race adjusted. AA=. Performed By: #### 1 4647582, 7166633, 4822201, 1022334, 86959082, 0765420, 2629290, 7903478 ####[facility] [address] [place] [address] GFR/1.73 sq M.predicted among non-blacks MDRD (S/P/Bld) [Vol rate/Area] 48 mL/min/1.73 m2 Low >=59 [facility] Comment on above: Order Comment: Order added by Discern Expert. Result Comment: Top Hat Body Maker serene kidney disease could be indicated at eGFR's of less than 60 mL/min/1.73m2. Kidney failure is indicated at less than 15 mL/min/1.73m2. Performed By: #### 1 2967059, 1738494, 7077406, 8055399, 01714703, 8418974, 3729724, 4623411 ####[facility] [address] [place] [address] Consent for Anesthesiaon Consent for Anesthesia [id number]#1.00CD:127 Normal [facility] Discharge Instructionson Discharge Instructions [id number]#1.00CD:127 Normal [facility] IntraOperative Documentson 1 04-22-2021 IntraOperative Documents [id number]#1.00CD:127 Normal [facility] IntraOperative Documents [id number]#1.00CD:127 Normal [facility] Preoperative Documentson Preoperative Documents [id number]#1.00CD:127 Normal [facility] Preoperative Documents [id number]#1.00CD:127 Normal [facility] Consent for Treatmenton 02-04 Consent for Treatment [id number]#1.00CD:127 Normal [facility] Inpatient Patient Summaryon 02-19-2022 Inpatient Patient Summary [address] [address] [facility] Clinical Discharge Instructions PERSON INFORMATION Name: ADINA PERRY PHYSICIANS Admitting Physician: Jay Power MD Attending Physician: Jay Power MD PCP: ADRIANA CRUZ DO Discharge Diagnosis: Comment: PATIENT EDUCATION INFORMATION Instructions: Post Op Patient Instructions - FT (CUSTOM); Laparoscopic Ventral Hernia Repair, Care After Medication Leaflets: Follow up: With: Address: When: Jay Power [address] [place], [place] [phone] Business (1) In 7 days 02/26/2022 Comments: Call for followup appointment MEDICATION LIST New Medications [facility] [address] [place], [place] [address], [phone] acetaminophen-hydrocodone (Peterson 325 mg-5 mg oral tablet) 1 Tablets [...] By Mouth every day. Comment: Jd Waldron [facility] Main OR PACU I Recordon 02-04 Main OR PACU I Record PACU Phase I Docum ent Type FT Summary Primary Physician: Jay Power MD Finalized Date/Time: 02/19/22 12:21:31 Pt. Name: ADINA PERRY /Sex: 1940 Female Med Rec #: [id number] Physician: Jay Power MD Financial #: [id number] Pt. Type: A Room/Bed: 09/04 Admit/Disch: 02/19/22 [...] 12:21 Pavithra Saeed RN 02/19/22 12:21 Normal [facility] Main OR PACU II Recordon Main OR PACU II Record PACU Phase II Document Type FT Summary Primary Physician: Jay Power MD Finalized Date/Time: 02/19/22 16:14:48 Pt. Name: ADINA PERRY Umberto/Sex: 1940 Female Med Rec #: [id number] Physician: Jay Power MD Financial #: [id number] Pt. Type: A Room/Bed: [place] [address] Admit/Disch: 02/19/22 05:56:04 - Institution: Case Times [...] By: Jennie Garcia RN 02/19/22 16:14 Normal [facility] Main OR Preoperative Recordo n 02-19-2022 Main OR Preoperative Record PreOp Document Type FT Summary Primary Physician: Jay Power MD Finalized Date/Time: 02/19/22 08:51:16 Pt. Name: ORLADNOADINA/Sex: 1940 Female Med Rec #: [id number] Physician: Jay Power MD Financial #: [id number] Pt. Type: A Room/Bed: Admit/Disch: 02/19/22 05:56:04 [...] Signed By: Olivier Loza 02/19/22 08:51 Normal [facility] Monitor Recordon 02-19-2022 Monitor Record [id number]#1.00CD:127 Normal [facility] Operative Reporton Operative Report Patient: MAYA PERRY [...] reparations continued for the proposed operation.. Normal [facility] Comment on above: Result Comment: Elec tronically Signed By: Rk Moreno Jr., DO\.basia\Date and Time Signed: 02/19/22 08:20 EST Outpatient Surgery Discharge Instructionon 02-19-2022 Outpatient Surgery Discharge Instruction [place] [id number] Patient Discharge Instructions PERSON INFORMATION Name: ADINA [...] Follow up: With: Address: When: Jay Power [address] [place] [address] [address] [place] [phone] Business (1) In 7 days 02/26/2022 Comments: Call for followup appointment Pharmacy Information: You may receive a survey from [employer] asking you to rate your care experience. Your feedback is important and will help us understand what we do well and how we can improve the quality of care we provide to you, your loved ones and our community. It?s an honor to serve you. Thank you for choosing [facility] HERE ARE THE MEDICATION CHANGES THAT OCCURRED DURING YOUR HOSPITAL STAY New Medications [facility] [address], [address] [place] [address], [phone] acetaminophen-hydrocodone (Peterson 325 mg-5 mg oral tablet) 1 Tablets [...] and water are not available, use hand architecture professor. ? Change your dressing as told by [...] ? Do (more content not included)... Normal [facility] Patient Education - Texton 1 04-21-2021 Patient [...] and water are not available, use hand architecture professor. ? Change your dressing as told by [...] care provider approves. General instructions ? Take cvxx-emt-guufbvg and prescription medicines only as told by your health care provider. ? To prevent or treat constipation while you are taking prescription pain medicine, your health care provider may recommend that you: ? Take axdi-ibs-ipidwjq or prescription medicines. ? Eat foods that [...] 03/09/2013 Document Revised: 03/05/2018 Document Reviewed: 11/12/2016 [employer] Patient Education ? 2019 [employer] [facility] Progress Note-Physicianon Progress Note-Physician Patient: ADINA PERRY Age: 81 years Sex: Female : 1940 Associated Diagnoses: None Author: Rk Moreno Jr., DO Postoperative Information Post Operative Note: Post Anesthesia Care Unit. Anesthetic utilized: General. Health Status Allergies: Allergic Reactions (Selected) Moderate Percocet- Nausea. Severity Not Documented Darvocet-N 100- Vomiting. Problem list: All Problems BMI 20.0-20.9, adult / SNOMED CT 1900315998 / Confirmed Incisional hernia / SNOMED CT 117431995 / Confirmed RLQ abdominal pain / SNOMED CT 521309348 / Confirmed Ventral hernia / SNOMED CT 5859999328 / Confirmed Weight loss / SNOMED CT 301704656 / Confirmed Resolved: Anemia / SNOMED CT 289440003 Resolved: Fecal incontinence / SNOMED CT 445530707 Resolved: History of colon polyps / SNOMED CT 8962903106 Resolved: Nausea and vomiting / SNOMED CT 63280455 Resolved: Watery diarrhea / SNOMED CT 681164572 Physical Examination Vital Signs 02/19/2022 14:13 EST [...] to self (more content not included)... Normal [facility] Comment on above: Result Comment: Elec tronically [...] Histories Past Medical History: Resolved Watery diarrhea (974073522): Resolved. Fecal incontinence (165700557): Resolved. Nausea and vomiting (67296619): Resolved. History of colon polyps (7319422351): Resolved. Anemia (634908186): Resolved. Family History: Heart disease Father Primary malignant neoplasm of lung Sister Diabetes mellitus type 2 Father Brother Procedure history: Colonoscopy ([id number]) on 01/17/2022 at 81 Years. Comments: 01/17/2022 11:03 EDT - Hernan MILLS, Jennifer biopsies, diverticulosis EGD - Esophagogastroduodenoscopy ([id number]) on 07/06/2020 at 80 Years. Comments: 01/09/2022 16:03 EDT - Rajwinder Ho Dr Colonoscopy ([id number]). Comments: 01/09/2022 16:02 EDT - Rajwinder Ho 2010 Esophagogastroduodenoscopy (189736187). Comments: 01/17/2022 11:03 EDT - Hernan MILLS, Jennifer normal, gastric biopsies section (00778221). History of hysterectomy. (4116986916). CE - Cataract extraction (9053247018). Procedure on back (839582364). Arthroplasty of knee (96090254). Bladder operation (7849269863). Social History Social & Psychosocial Habits Alcohol [...] Auto 69.3 % Lymph Auto 20.0 % [place] Auto 8.7 % Eos Auto 1.0 % Basophil Auto 1.0 % Neutro Absolute 7.0 E9/L Lymph Absolute 2.0 E9/L [place] Absolute 0.9 E9/L Eos Absolute 0.1 E9/L Basophil Absolute 0.1 E9/L Glucose Lvl 94 mg/dL BUN 25 mg/dL HI Creatinine 1.2 mg/dL eGFR 43 mL/min/1.73 m2 LOW eGFR AA 53 mL/min/1.73 m2 LOW BUN/Creat Ratio 21 HI Sodium Lvl 140 mmol/L Potassium Lvl 4.7 mmol/L (more content not included)... Normal [facility] Comment on above: Result Comment: Elec tronically Signed By: Rk Moreno Jr., DO\Date and Time Signed: 02/19/22 06:44 EST Coding Summary.on 02-10-2022 Coding Summary. [id number] Gh0bWw +PGhlYWQ+MA8KILGnJ70kjUJea Q8UN4kUIP9AZCCSWSQOOD7IUW0 zjZQ4FNjjA4NhjbLn YirvqAYeAT13KXd3HUM9uYjcTH aosC5teLPtE7s6GzBwDT06iG00 RAsqIUNqUnM8ApFrcudlsOVw G7idDnGvyWSxFgh+PHRhYmxlIH kuMVHzJFlpJXQjHmEkeOxyKM3o Dz3aRAWiJMRqsFgfsDSqCvKv e9maONGtIMsjVE7ynHkqE4KcuN L0RBUtp9n9Wh21bMZ+PHRkIHN0 mCyfGCbjy402HsBbx3iwVVY9 cNFvYZpqPBP7Y53et5V2RDOkXR YeRMH4hYN8bE7opGnxpdadL6Wl mMDvFaG1YGZ7cBYczD6vbLzc thrrzB1nTuw+E28BWY7CMNQAYQ 4XPee7Q8LdDhvsfNB+DO44XGTg BR69yVAwtFPnw4penRk5QxYx JBLxYCO5pGkqXDwph3FwUEWcF5 4qjGYhm7W0ABEbhUffrOHuVzIt dHW8iU6eJYnyrblzb1lnjtpe Ywjqp0glng30yU98G35cWWqmUQ WeOPV8HFHdPIMbjKpkcq2xeM6s Ii8+BDimu5zpa8lwhWt2UiWv UVBfriQmtTwrBFI3b4DcCp23Q5 VmgVvkk8OtVqj4zm94vQMjf3Y9 cCL1XFavZKJnuL6wYNgoHpV4 QQEwEaAsuF86rAEaTUeuTp7mqH whzIbnQQ1lUWPvacijEMXbxV4x HMArgKXcvWlnNV0rDWWzcvfq v978NnNiTNI1EAPmiXClA7TqjP 2fFlEaJGItHQFrF3NllJRsBFwk T033IAhwWkP2QUVpyeMoD1Dm KDHysMakAdW3a7A8Ty0Is1Kcky moNSY2KWqoARGtOrF5OiJvPrH7 O3TeDbn2XEOdcPsgBN6wC2Gv UGWcfdayalcniOQ1LGSvCUPybL 44rVGlWMrkDk0de6A8n715FCNz SBBvjQ09Zu0nxQktBRRteURR dX0ewydea5zfpeuyIgKtKQQfVF m1FBd3UMArlJyaBvBmOZJ3KoD9 PGD5wGOegX3dgZgpnedxbN6m Oyc+M24thI1wPYC1FQF0ubieHK HrfsMlCP42TE00H9SaIggsgABd bGU+RQOxdtWntVupQX7ySgSz i3erq8XmGVhaZ8SrXWWuPBrqMl f3NRDkWTD3fFT7uX2gEMGtKAmi x3U4zQF0N9QbvoTusr5ev5wg JIJsPWxfU48wmBLkg6X8IKIbmM B6EXMkvLsxQlTlxJ61Ppu+PGNv fRyeg4CvBxowv8lke3vhxTh0 DjBpBMMoppOhtEhwVTP5y8KcDa 60K89uFDayDNKyFXUeLXUkEHRw uIoawi1pcJ9uSu2+PGNvbCB3 gUN9tH2eZGWiQfH0EOqrY015Sx EqiHZqXbinb1cng9xmuKo3UlJu TJNxxoRedLneRYO1p8ElAo12 G45mFGxdLTBoPBUzWJSoVWFjsY wuhd8roI8sDo8+RK1wr2xqgy03 gO06hRN+ADUeAZJ2xXuxGHzf IAZrsY2qUTldHhS4TRGrXeUtjF 64vSEqAVsvKd6aqUzxqDtdRO5q BGCwzaoil278GmJso8cmBNGn pMAjGVsbYTR7J27gh3V0FYUsOC UmHOS7dTE6lM1juIzugnkurNVi sJgfzcIkwOmsJVmjBPlnU400 IHRvcDsnPlBhdGllbnQgTmFtZT j2K4MeYjv2IMGobNabBS5tiUNx IHbsJk4ctNhnaAxzCB8oUHDq hlknv909BfXer2uaMNLkkXIrZV bqTPR0K19rs7H6DDTrLVLkCZC2 vNI3iF3vqIzjjwvnbXHxaUrq oqUnmXszEKtoEXryF989OEBesJ yeLtYevzShZWSorGU6SN15MC01 dIVzh4L6yWO5V4UrNSZcockc orabyTA4TWKcHJZftA26Jf9huK xmGb3lNLZkDGZ3JIAbsMFkN2Vy yJ5aSzCtIREpPCPwH7RjdDEz IIdiX417ZQuzSaK4NZBgsyLaP0 RxPPSjuTvkEzA5r0T5Zd8JZ7Y2 JT86XB81zIDps7G0aTQ7N8Uy GYZehqskxbwlnZC3BRXtHJUbjY 56Ox8vgFegHp5jFIMuCLF9NWYz nHNoK5LmaQ5xQbYvVPOiCTPq E2DypELdMGigU875HOacPcS2WD HxrpOnW1FkOUPjjGmpRcK8h6C6 Dd7SUGa4ZX21GQ30vCKyx5W0 kAA2U7YfKJBmvysltlkxnYG2VG AvIVOoeL48Ga0ycMpcDy2vEKEq QUX7NHYkvWOpU8BouA0uVrQv JFBrVGDlF7WgyPIwIQklQ321WG eaBwF5UPZdxpKdG4WhXOEdpLzx VwK7c0W5Gi6GFUWtWM46MBB0 pAM8RI34EU98Q8ByMtlbkTKdrZ U+PHRhYmxlIHdpZHRoPScxMDAl BoTwzOynLQ7cHm2qAZGeVNEx bIylvJEpOnSni6saKPQsQWowAF 6pmTytI6EgoRN1JSGsg7r0Zv04 J12hO4VfrWB+IJYdsPK1vUD2 mU3uQiRkGxF1ILzcG624VyNprB WwBsvim6aen0zxrXv9KuV2GWLo tyErdNttRRM8i5LsFf56W08d IHdpZHRoPSIxNSUiIHZhbGlnbj 2oeN3tGb4+UUWyoWU7gVI0zO3v WcBpWqW3CXyjF026GsGtnFTl Wdvri8rmw0cpjYp8ElFhMHOesz TaxAqbMER0k6QhXf88C4WwbQcv x9KbAuo3fp58aRAov5O6mKY3 K9TyBHQkpnxpjAUvzLlnUB9kAN YudwwmZXIokX0kJGUoS3x4FxAb WcA5IVtnL5DfbqK9ENCfqAJm YCrrRDC0V46xj5S9IEQdFTEeAK C6yQP5iZ8pkBmgtlsnuBGsvSni itOrhKpbLBkmDTxkA324OQBo qCjoFXAymR1qHLWqmNPmxBcsSF 1vBAMmldzsPrEYR3GMU9LgFHOB KSFXQ3gJPV90XZ60rTIgm6F7 gUW8N8AmWKMlxgxbnsoquFQ5XC OpMPWmvD63mJHaOLgaJe9dk4X5 a143DCJqMNProP17Af6ycQln QYNkkTJLuR3jntzxi2ddixjfRh MpTHJzVGz4CLs6QZLaxPfgOiXu NUX5KtB0WYM3cSQgrV2naWgo pvhsyV6cKmq+PKQfSANfLZf1Xq wvdGQ+YQVmJAE3tYcwJFztKIMf mQ9tAJYgW9g7HuEpIxA6BMxg K6UlVLRxznykXv68pB8dEcZlUk U4KKhmN9RypdT0ZMKooIHpTZbi WYU5V09mv4W3HJHfBBCkPBR6 iIH0aC2hdGlovtlsaHKimTtrmn OltSraMItkNPwqG040ZWZlyGim Kld9DOniKYKgEP05NP15dQXw g9B0iBO5V7GmGDWjfbpwtyomyL V3UPPeUIAdcH41gNFbOSfuUl8q o8L4i511MDYsTLNvvA17Bo2f yObkJFYpqQCBsJ5lfiiha6esba dvXyXzWVOoGSw5LVk8VTRmcOpx SsNaTAY8PuG1DAC6hPYdjM8l qTtritcvuL9jOep+RmVtYWxlPC 05WF87pZMug2J5aGB6I0BlRUWg qbevtuetlQQ3XHZiQSAltO89 fGOtDMdtXd8jh6E9t050LVVoZM LkcR44Xi6jjVpzUWObbNRSsH6b yezqm4pkyjggDyCmYYNnLJo9 JYx8CKZcvWayMsQjVCT8JdT3CL O1nHQhjE0meIwmogmjoV2pWyt+ M4T5fFA1xRBtdWiujQI+PC90 xz56V8UyFikmEsh2EFIwDPL6pT L4nC1dDLAnOHswb1Q1xCK5B4Nm boKkni1vx2ydKCCrCPnwO30h pHDwn9G4SEEtdTI1GJWdjHqhEg NhmW42Sjr+ECIeoOedp3LcVmen r2ouq9hhdAk4KpJfHSRjonYk kVndEHS6p2TjOq53X27qJCrkJG SqRSQkTSLmDXThhOwnah1iyY2a Ii8+AIKjbDB7gXF5tF7ePqOo EbV1HCmtW704PjZivULcTtyuo0 xyv4wgoQl4LyZbMGUnldNyhPsq CFE6r6JvRd51K9WbiUhft3Fy Aas2xk97oGBio9L5jOB0L5QoPH VhewylzIXquGagON3uWEGxzlbw GJBquI3qQIVsO0h6RqNhTsZ7 JOdbJ2AnqkG8GJDvgROcCDLyrI QWtL2bchqjk0drpqanRsEjGUMj XXj7EGj1NXEocDkjIbCiFHM1 BjM5WRA6rUBhsW4tcXqjwoueyQ 9wOyc+UNz7l1yeoUJdFA3wyKU0 BM77DS60iYIiw8S1sBP0J1Tb APKnahkadlownYH5KSEsRLRkqQ 69Pz2unEitUd5kCXZuSFS8ITCr rWDkN8KbsD6dDiStFVDaSPTp A1ZmzQTuJLndM905ZLurMnE3SZ WzdzKtD0WoZWYzbSbkBeY0z1M8 Ze1PTJ51HL77OW48zTVvf7Y5 yKJ4S4QwVSIttaciscllsYS8SO HxMYQozM94Cz2kjEjcAt9eKBJn RSO1GAHilVVhC8EanN3zVpFm ETCnRNJtU3OcvUNdXYwsS868OJ hnBbD2TZVkrnIiB7MeJDRjfTmi YhR1v2Z6Em5GEt70CH83RY71 oCBjf2Z2jFP1O4BuSFOhbdbgfz tioOE1CLTxOBQulJ38Bc3cwJtn Tl5sUPFuTHB5ZUBsxLZsH9Jo zX0oPiCuRNRdSJUvK9VkfEZiGH gbK467PKbvHoV1NXPynbZaG5Yq IKDnrPbbUjZ1p6Y0Bg2ZWDle gvg5T1KfCuzjdUB+HT78EOBqKM 95eEWyzQYjm8dvpDy6PcXcNEHx MGL2vZxjPUqmp2JsEQIuW75f bGFw (more content not included)... Normal [facility] Outside Recordson 02-07-2022 Outside Records [id number]#1.00CD:127 Normal [facility] Consent for Procedure/Surger yon 02-05-2022 Consent for Procedure/Surgery [id number]#1.00CD:127 Normal [facility] Outside Recordson 02-05-2022 Outside Records [id number]#1.00CD:127 [facility] Consent for Treatmenton Consent for Treatment [id number]#1.00CD:127 Normal [facility] XR Chest 2 Viewson 2 XR Chest [...] V. 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 female [...] with contrast performed at [facility], which showed a fat containing ventral hernia. However, on review of the actual report of that CT scan from 11/12/[address] [facility], CT abdomen and pelvis with contrast to rule out diverticulitis. There was nothing mentioning a hernia in the body of the report nor in the findings. [facility] did not push through the images to our PACS system. I am unable to review these myself at this time. Our office is in contact with their radiology department to rectify this mistake. After calling and speaking with our radiology department and [facility], they have put the images through [...] Martinez to record this visit. ANA M clinical trial specialist and provider reviewed before signing. ANA [...] mononitrate, 30 mg, (more content not included)... [facility] Comment on above: Result Comment: Elec [...] at PAC Received imaging per Dr. Power [facility] RAD - CT Reporton 01-31-2022 RAD - CT Report [id number]#1.00CD:127 [facility] IntraOperative Documentson 1 IntraOperative Documents [id number]#1.00CD:127 Normal [facility] Postoperative Documentson Postoperative Documents [id number]#1.00CD:127 Normal [facility] Coding Summary.on 01-21-2022 Coding Summary. CD:[id number]:[id number] Gh0bWw +PGhlYWQ+RJ0FMLMwD09syNOmr J1LU2tTZY6VQFTWWDJQRT1VFB9 vzPO6TGzkR0HqpdFc AwsriBQjHR62FJj2IQE0pDytUX vbtC4mkOCeH7g9UbXcTL14xY14 QLsuXNPfByZ4OrTohyusfLMh V7zeSrImbUHiTwp+PHRhYmxlIH waJCAxFQfrQZMcWxYkyPkkTF6y Op3oABOvRGQcrRdrrZGeWiRs i7pyIFVwIBiqJL3mjMkqL8WeyL E6MOBem6w6Zx36gWI+PHRkIHN0 wBtbJThmd580YjZyu8fvGSF5 fMKgWDgdQGE1O82bf9W2IFWqCX BlWHT1dXR2dA9ubMiosmgqD2Sz tGZrLvJ5NEL5yONyaV6nmAox dbfdvD5aFki+N94WMS7CKAGVGR 7BRms5C8QyCqydyDW+QP94XWYn ZV14rAYozCSco4cadLr2LoBq HISoYIB9kXkeHRsml3AoAPNnB7 2neDAvw7W0MOQxtMltrDHmDnKs iHE2pJ4aSNiteffzh0byummn Pakde7owyv65rR49M47uVOpdDD PnIEV1DZFfEWQvgWopqn7mrY5p Ii8+JXujs3huk9htfIm3DjDh PLAmrbHcaPdzIEA3o6ZcXi28C4 AmeNnjd2UnNdi2iw56eGXbd7S1 qQI5GKowHFPsiD1zDAalIaF0 NRUyXpLieG39zOHpZLrbDr4mhC fiqQlfWO9yODClafebYJMywZ8f VMXqbIFxsHikXL9oJFUnaxep d787OmBcGHM0YLHgdYAgH9UwnN 3aGbRkRXQcLDNmB5SrwFIqSNdk T777EKkxFtO3SHFuxwPuT8Lh DQPnwVloEmR8q5E1Rr4Yj5Hetn ibLWL1OWagSSViLlL7TtJwBoP8 E5VpXwc7EFRjqKrmWF7bA0Ml JAJbtehticrpbPC2KEPqZRLpjN 47iTWbFAdiMi3my5P7a637GZXc SSUgtS26Rs3wmQmgFVNgqSWO oG6joosny4pmdxkuOwAhVWShVO l6NXu5XJEmnRmqXpLeOSG6HsB6 HOX3sNDgcJ3hwTogoqvjuC2r Oyc+Z47lfC2vEVR4ZTQ1epayRO GqwbNhZV73AE96K1YsLqcirLHy bGU+KZCrfwPhaHhiQJ5aBxUc g1bra8NmNZguC6TsVBMnPAonSh d0EDRuUAY8xZI8xS1kWEDsRXpb j3J4qSJ0M1IdjaDdbx1gb4og YLIjLVjaC96oaNFhf6A4VOOjcA G8QDSihAslXnFttT19Lwj+PGNv dUiif3ApKsult2raj6cedHx7 AuShRMJqlsZalSbmEDJ6y9YhOj 07B86gHJilJAUiSPZrWCRvNRCs oFyyxb3coU2yZk6+PGNvbCB3 fBP9eR4sJIOfFuP2VNzjG298Bj WmzXHyPxpxd3mtm9qtbBc6CaTc EHReviSjvYhyHVA4n6JyMg41 O93pEMfyQUVsNMGwIEYoQNXcpG wjye0onR6wPk4+FA0ik6zqmc99 cL04cHW+IFTdTTA4aHkwXMtp USHnnO9yYMtfDaA2QKMgOdEkaI 78lWPoXCrySm4hiVtghZqwIR4s AAFeqppxn141AbOcj5wwXPSv wITuRVfbZFU9K02gr2B7QYRrPU YtVRF4eTQ6fW4rwVrihaazpXDe oNoeemInwVosRKliFRhwT098 IHRvcDsnPlBhdGllbnQgTmFtZT d4N9XaJil7EZTliXntTD9olTFr BQjeKs8shJetgQjoOE7oXINe cwjxn007ZjEtu2rmOHCwyUJqVK cjVAO9R62my3K0JWMiSRLrZCW3 lIC1hH7ecCjevpiztFYlwRdm jeIicUzbBFlsXJnzF089XGEthO oiCsLikySbNCUxtAV5XX46GV26 hOUro8R6bBN9R5GhNFHwwane xkzfnRT4TUGiGMXgaO81Tc1oyO dwPb7dAHJyCWC4MHJcoLSeN5Ao iY9kLcNuLXJjYZXlT5XrhSOg SVzoX711UGlpXrU1YODojwMfQ6 QqVDMvsUyuHeT4o0U6Qo1NA0L2 UM55LJ81mDUew6E9qQJ9J8Pb WSSigkybebydiUT9XWDrIFShdT 19Ao6nkTqgYu9hANWmMVE1FUXe wVRhY7CrtQ2hQrVrUKNhSCDb E0UwwTKwLUivL384LQzhKkH2QY QsqlFqW6YuEJVhrIdbWxB5n8D4 Tl9SOSu9RZ31EW49fJBiv3P8 uKN4E9IgGYDrwxfskkdflUZ5EJ VpCMMtmG49Tt3fxIgyLo5iJMCk UXF7MVNoyGNmS6NcbJ3hLnDb QNMgFNKgK0MefJNoPPbyL898SJ bkWbW3RIEmgiUzD4UbAFPghMwt ImJ6l2V5Bz9JZBPmKL90DZI3 rXE1BX52JP43R5FyEehkwLKudY U+PHRhYmxlIHdpZHRoPScxMDAl McZjlTbuBK7vKh5gJZEfZCOq mZuxkAKmOsBuz9vkPKKkILgwDP 9nmDkxA0JmpGY4CLHor7f5Fz03 I03mA4IkxCL+QJLylJG9yQJ9 rC1aGcNbOlK7EFgvW827BiTzfS KuAufmn4pek4jwhRk1IcJ7FYLz yvTubIgrDOK1r7OzFy57S33j IHdpZHRoPSIxNSUiIHZhbGlnbj 8npJ7aYl9+DGWjmJL8wZA5hY5v VeHjOkZ9IDsyN348FfCykBOt Zzlur7npp1gzqSe6MbXwVMZtjj XddSzrGYU8a7LmRg01U2GnpDaq m5KhXks8qb26lFNlv3W2zUG1 J6PbWTNynjdnrSWjnVuhHG7aAB UfkuijMKPfyC4uTSExG7t8KuPf BjX0RSykB1TeuyK6FAObfHJk QJlrLJD4F27mg9K8AFHuRWEsBC U2yTJ9hR0alIfcoeyhuXBniWai rsVjhTzjJEzkITzrB262PJXz jIllAXIsmF5hSDEpuETdkUclNV 1cSPGmenehPzZXF5KLM5CcATGI CKDQZ3wBQE05AI00pRDbn1G4 oML8F1GqVWDbbxizipmmsTP2WQ ImFNCkqE63oRWpEMvsRv1po3O9 i925POQwUOPfkC10Dc1vgNcg ATQvtXXQrU1wuzdof1bgaimiOp FkQYZoTWc4FNe4SKBaaWunAhOl NMD8ZiP3EIE4uXZnxR1htSue ttmsuQ5zGei+EIFaHSQzQRg7Bx wvdGQ+UIAxXDJ2rSfeXEstHNIp mB5aHGIzY0w0EeHhNyI4HQkr X4RkJBZfihdfBv44zJ5lBvMwLz R6EFdgO4FcbdH1GSYrrPUxKCwi EWW5A60fe4Z5UYPfGIMgQDG2 bYW6pC2fhBbmmtsotGLukJpvsr LswBcdZNfgNCmdK360OBCbpVcp Thi1VAghEHZiJJ04FA84eQRm f5T6vQS7B7FwZDPzvmyuchorhG U3PWJzACDeoS03xURaTYszGm3p d3I2q683GWMaNWQeeL57Mu1e kDrrNEKdtYBLlF0fsscke3tkcp tqDuDeUAByTKp1CDk7ECBjkWnv UmRnVKG6BsV2XMJ3sXGypC1d lKzunewngW0wKbn+RmVtYWxlPC 43VC33pAOrx5L2tVU6S5BeATLd nckrxdeppGW0HGOfLOMvbF55 aRThTVfcVl8bc4Y5t529JMSyYD LbqB82Or2soPzmUIQunIWWwZ1t jzjtf7antxgvCdXyVUMoTWs5 ZOd3KYPlqOmkHnRcZQH5HtS6DK F6vKMfzV3shRhsazkveD9nWth+ K4C1wWI7pDUscZrqsGE+PC90 yi21V9YrTyacAhz9BAXjURQ4oO K8wL4oTLYuVCmwk1H1bKI6K5Nk kbSkmh0nj2efMQArHTuwE80p pBTsy7P0QHHvpIJ0AOQpiRgdTf JbgX41Yii+CZFiuHqws1JkHcmt h2nua7psbMq3BlXuFMGmvbPp zGnsLVA1q5YrDo41E26gGRqgOY SmFMLxCVDvIJNfwGelfo6bdR9a Ii8+UCYovKH9yES1sD4eMvLj LnZ2KIghW882XuQydRNcGfdiu6 kho9ycpGk3MjZqQDWjwyHxuMbm QHN4t9WyKe91R7KdiRaqu5Nu Njk3zg75mYKas5L3zZK4N6GdJD RdixywnAPgqHenMO0nRFPgnghz KWCejS4aQOVoF6e1RwAaWvI7 NFpfK3EawqR6YINqjABeZJMbqD GNgJ8xxvgmd7leeohvWcFxGLXl DNa3MNc3CZTsmWitEuBmCHB4 OxE9JUR5cAHxvS1vyRxmduvciD 9wOyc+YLf5y7bwtTZnTD5hwTI8 ZR52WV92oOIga2W2vOC2H5Uf NDOflnbhdrfkyDU9RYBaODPbbC 24Gq4ajXhyAu9nPGQrKRG0WFDw vNEkB5ZfnP8gGyRtUDAxGBJs Q0MerWAgUCtvW695UWkiOeV6DC LuwcYdF7PbKNFzvKizAgW6m0F0 Bv8ZKR84EX36NE00gSQjt4K1 lTU8O8FcSHAmojvxhhvsyYR8DB FzIGIagL39Sv9csIgdNn6wSDSe EOH6KDOosBEaD6LfsH5zMxAr ICRtOORuP4WsiUEaWMijZ466KT vwKbQ4IBHskzRnG3IpRQIupEak IeG3r7U2Sf4JWp38YN77PW09 pHAgb0R3nXN8C6WmXCJsawcydp acsEL8JITsUIZqoO18Qh8mjAhp Kq3lSMUaGHU1KVLewLWqH6Ev oE4jEnPxHKQrCCWgY5JekZNgPT jwY161DCyoMoK4UWMyfkBlL9Rz UGGuaQdcYxT7f6E6Jn7ROIpe xzq8N9DbAgnabLB+UL60RQFmMN 98hJPajEKss9zlhNi3JkQbGFUl HCG5zMalHAqxs5YuRLKbI96s bGFw (more content not included)... Normal [facility] Giardia, Direct, EIAon 01-21 G. lamblia Ag IA Ql (Stl) Negative Invalid Interpretation Code Negative [facility] Comment on above: Result Comment: Perf ormed at: [facility] [address] [id number] PhD Yolanda Jiang Performed By: #### 1 [id number] ####[facility] [address] [place] [address] Main OR Intraoperative Recor don 01-21-2022 Main OR Intraoperative Record IntraOp Document Type FT Summary Primary Physician: Jeferson COPE MD Finalized Date/Time: 01/21/22 11:55:08 Pt. Name: ADINA PERRY/Sex: 1940 Female Med Rec #: [id number] Physician: Jeferson COPE MD Financial #: [id number] Pt. Type: O Room/Bed: / Admit/Disch: 01/17/22 [...] Craig RN, Michelle Fuentes Role Performed Anesthesiologist Saw Offbearer - Primary Staff - Other Emotionally Impaired Teacher Time In 01/17/22 09:27:00 01/17/22 09:27:00 01/17/22 09:27:00 Time Out 01/17/22 09:55:00 01/17/22 09:55:00 01/17/22 09:55:00 Procedure EGD AND COLONOSCOPY(.) EGD AND COLONOSCOPY(.) EGD AND COLONOSCOPY(.) Comments Dr. Pennington is supervising Last Modified By: Daniel MILLS, Riddhi Sanchez RN, Riddhi Burrell RN 01/17/22 09:55:43 01/17/22 09:55:43 01/17/22 09:55:43 Entry 4 Entry 5 Entry 6 Case Attendee Elana Sethi BINDERY ASSISTANT, Jasmine COPE MD, Jeferson Aflord Role Performed Staff - Other Scrub - [...] tissue Entry 1 Skin Integrity Intact, [place], Warm, and Outcomes Met? Yes Dry Last Modified By: Riddhi Sanchez RN 01/17/22 07:29:31 Post-Care Text: The patient is free from signs and symptoms of injury caused b (more content not included)... Normal [facility] O & P EXAM, ROUTINE, REFLEXo n 01-21-2022 Ova and parasites identified Concentration Nom (Stl) Comment Invalid Interpretation Code [facility] Comment on above: Result Comment: No o va, cysts, or parasites seen. One negative specimen does not rule out the possibility of a parasitic infection. Performed at: [address] [id number] PhD Yolanda Jiang Performed By: #### 1 [id number], [id number] ####[facility] [address] [place] [address] O & P Exam, Routineon 2021 Ova and parasites identified LM Nom (Unsp spec) Final report Invalid Interpretation Code [facility] Comment on above: Result Comment: Thes e results were obtained using wet preparation(s) and trichrome stained smear. This test does not include testing for Cryptosporidium parvum, Cyclospora, or Microsporidia. Performed at: [address] [id number] PhD Yolanda Jiang Performed By: #### 1 [id number], [id number], [id number] ####[facility] [address] [place] [address] Consenton 01-20-2022 Consent [id number]#1.00CD:127 Normal [facility] Discharge Instructionson Discharge Instructions [id number]#1.00CD:127 [facility] IntraOperative Documentson 1 IntraOperative Documents [id number]#1.00CD:127 [facility] Coding Summary.on 01-19-2022 Coding Summary. CD:[id number]:[id number] Gh0bWw +PGhlYWQ+YK4NSFQtL44qbKPfp N2II1zQNU1JNGVJYJFPIV6FXB5 yjGI4XApiN1BexoKt FduixICeSC90QXa1ACN1mLwxWP zktN7ddTZhQ1n2QtTnWG13mK66 RGjeGZWtRiH2VdBzpsmxpEOb P5wrDlUazWFtGry+PHRhYmxlIH ajBXFkVNshOVLoOjHxcFzzZZ8l Vw1hIYZtWGYvzYygmAIoZfBa s6qrGRQdHSygBZ3ikXroX2EyoO G6MADta6v2Tv58nSK+PHRkIHN0 jCfcYOqcx602VhBhv1tzLFS4 dQJmXTyiFON9F62wr1P5YXDaJG UfLTB3rNP5aF0prLdiwupwB3Xd dDHfUvM9IRG3uNHevI9dzSmg pgzcqA8hTil+V33QOE4KARPKHJ 7UKuz1Q1TcZydasBV+LW14OFRe YU75qZKfcUOxe7tnkFj4XcKk QPGmPJV2oDlqWTajg3TjOQBoJ0 7ifLRda5R8FMOtrXlgkNAtHwCj qMT8jZ8hYJevvzdjs4ljokho Dvhyt4fglq65dH69L75vFDhyEI PjLSW5OPFwTNAdwQgbuz8xdU3a Ii8+NCikb6xjy7hdyOk7VrSq WBAlieQhfGymGMB0c9OrTc53I8 QqvJisv3GuMew3fb50rTMnq2W9 wZK9JXleHTZhrL5xJGrbSgS8 CNTiPcPbvI60xTHrMUneZv8ngO ltaSesSO7dHSCdmeqlSCXnlK4t JQAioTKknCryKO8dOHByqpui h554EqVpKKY9USRfdLKaL5AvqJ 2ySfEtITPfNPYpH8LjeVSeCAbr F942ITnnRjA0NWNhewEyD8Qb LAPtbPybAzK0b1W6Jn0Fy2Qavf etRJI9PMqqOCYxTgF9BvRyPpM1 M4IqVno9XMKylVxjIX4aK5Nj BSUljxcgcfsaeJG3NHSbEEKzbE 62vNOyHKuhXe6cz9D0l295UWPz WEAfsK02Hd3ypAzcTWTnfGSX eQ3zzoemg4zwzlomOfTdIXBsQN h3VHu9KYUqrKwzKuCkZMI5EzZ0 ZGH4jGKtkY0lqDijjxqrgG0g Oyc+L67fkJ8wVTO6WJH0jcmnDH JhrgUvFY52VC02E8TnKudxwFZr bGU+IXWzkpOtkBnrCC3vVdBc e7unv9VdNXynE3BqNBFcPKdePo j8TNXyYPZ7ySS1kN2jBGGmAWuj e0V2iLU2M2SyuqZzfz0ed5bd KRPnRSlaC08fvYBna5Y5VSQoiU K7EVQuuBhlNyGznY28Wef+PGNv rMyzl9JyMyzdd0sfp3dscJj8 QeHdZGKerdDttVhnNGA2e6NyPa 93F82sQAzwXLWrVRKyAUVlVYZu vAmtgh3ndK5vWr3+PGNvbCB3 yLU9rY0xNPBoTtL5JOsyC812Ik UnvOIoQuuor4ehu1pwyOd9GuJu TGUpauMlpOdpHZR8a4YwPo75 K10dIEauJGQoXVLuQIEzUMPkrG qbvs4pkX1aPw8+OA4wz9ylkl82 qD68zZY+NWNqNEV9wAmrKLze YIJvbL9hEDdcYsK1SWEqLuEhsO 64pBRrEAfqFu4cmBhqgRyrPE8t DDLmyylrm101OsLrm4wnNQWk kNBsICrbMVC0N15th1L2LQAcMF RkYNQ2wXZ5nQ6kcIwiukxteYYn oHrvllXpeTkoPTwiFOqiZ851 IHRvcDsnPlBhdGllbnQgTmFtZT x9E0DhAte6TWCifBjbTT2uuAFf JNfnVv5arSltuPjiIP7fHLJi gyrzb159LqAmi3juRVEawLYmDD dtARX4F21ez6F1VWMwEPZfSTF0 vFF6vS7mjKdkwsahwVSytYkh cxBjcJvcLVfjXRkwG530EIZvbJ ayNhOngcWeDIAxzBY9KX77AQ16 xDQsr5X5jKL6G5OgIYYiqmew ofmhxWN8RWElMKPpaG28Lp1hyC bbOj0nKXAcRWO2DUSgyXBkK3Ja zS2eIkXwSFPnAJIvK5JsoMJa QHxoF141GVvmBdK1REWaniLiC1 KaDIPkyTqdYgV6f2A1Tn4BG7Q0 BB59BI86tHRgk9L1nOW1V2Oq EGEthtfmfvmzoPW9IYHiADBrgU 75Ql9tuKhiYc2mFOIwOXS9ERLb sJOyE1UuwY6pHfBwQHIlCTEu C4OwrVSsBDefY694KOadHyV2LW YdsxKeS4FrAMVkqHohXkM6k6Z3 Qb2UOEl1LR88FJ08hXVxd9L8 lNN3E0WnIKPdaohnvmltkOI4FW KvMVTxhH04Le5mnBgtCx8nICLa OGV5IQArmNVkH5RrgF2mRhCi YUJoFKZkI6CukFRlSHluG364VF njDoH7GPJbklIhQ4HmTYRyeOsj NpQ7h2T2Bo9ENBEvYI73BZY1 cPO1FI70SA58K3JuDkpslZPidH U+PHRhYmxlIHdpZHRoPScxMDAl AgCzfBpoMS1dGh1nUWVmYZBq uFbgfWFsQgHgi7rfMUBoBRknWR 0bxBvbU0TewKX0RBQty7x4Dv94 A63eN2FdaZV+FHUuwRG3iFK4 hN8mElGeImP4YHthI734RkGhuS RgCeaof3drj9blqVw5FiJ9VVHp kdRrcVaoJUU0j3ToRn57G23l IHdpZHRoPSIxNSUiIHZhbGlnbj 9fwJ5eIc5+LFSdaBN7nSQ5rH6r LtVzFyM3ORdwW843RnCiqRTs Uugqi2ita3dccUo4BiGuAJLwsd GaeGlfQGY2j1KmNw85Z2QvrExe l0HaHit3zm76iUFtn6F8zEO6 V4UiAYXjrmkqwFQxhOltDU8iFB IuatzeIAPslH7aTVRtQ4g9KwNf LxA7JLxrC9UqynP8YRJjcEAk MUrmOWQ9Z08mw1G0LTOlUBRmRY M8dCK5yC2xvDhvxvhbqELbmWdi meFetMkgTAmsCYmiI388YQGi kXyaQNSrmG2fYVJhdNRvbVrnAD 1jGBMwfonfMzQQN1MBN7KlDNYP MHEEO0oKMH44TT79rBUkm9I8 yLD4C1LjWPKckrfwdvjqpKA2KS OgJPKnmZ46fDYkAEjbQf6ca5O2 o755ZURhVZNalG26Bg9vbDyb PTDblDUYoW7afjqaw7sonyqlWz LzDPGnOFg6HWc2HXBkjXkaPdPy FQJ5MbI2RGQ1aABraU6drOnb zxmbwJ9sByx+TYYgYCDqAEo0Xp wvdGQ+MHAsBGB0nPfxQXsmANAn vB1rVADmP0x8PkZdYwG7IOlf R6IxAMOlfnkzNj73nZ7kSuHkTc F5HFplV4ZnvkX7YSHncLUpSBrs RAB1O85qo9F7VUPbJXJuKEN9 iHW9zP2gkDbthrsroKVghIyivv UgyBskXWwpNRzzQ433ZALjsSag Mke8LBhoGRSnRT58QX16dTDp v8V4dEV8K0JyPQZjjvtyktfpnO W5GEVyVLCvdF50bFAnGDrkWg3p g6N0h355MMLwFRKzbW65Uz1t nQbvFLXbhSQBhJ8epdphd7dwew apIqLtBPDrTHd8JAy3LJGkxKem DiSdFKO1CrZ2IQO9aWVzbD7u fCsggmniiE2pQgb+RmVtYWxlPC 41KA09nCXve8T5dPV7K9ZxMZSd eqvmanxccQQ8SSAnOWRgnC43 zJCeOYmhBr2xp9N8l754ODSdEI AucL36Wv5qvHbrLBEqsWUItV6u ptaxq2zkdutkIoBmYNBgDIw1 BFl6CXNcqRvuVgQoEXR8LfP3QG G0fRDvpV9goOybmcgpvK0sYdo+ CKKeELVnx9Dpc0QhDO35FO71 M5EgSehcsEErjKC+PHRhYmxlIH yjCJVySMkxJGUmBeGmwDudEU5p Rd6uPHJzXYTiuRifjMNlUdSw i2qyFFPxOMcmYH1hiLbsQ5EuhX U7LVAly2y9Sz82A42jH3PntXT+ MHOztKN6jGV3fT1bHhYfGhI4 LXjxR079PvAwpEWzRxxrt4igo8 cxpQh5IwXlWQZsecXfeOipMOI7 o8ThSy26W56qJFrjYLIoAMFu ZYVvSRJffItojo3reI5gOe3+PG RwwQC1rLX1gR4fDoNiReQ9VOtx G220TpKdqABzNukqD12zX3Gs dXA+JOLlBla9AOPcgDzeWU6wyV PsHIuxPq9wHJE4XuWzMrVgWLgj G4KtWPYcxjxcciyeoGW7SXWy WPOhmJ58Np7gdOriQv9rLXRuMJ A6VHIbtZYrG1OktS0kGiYmVDVj RMZmG5WsyXKlTAhnA822PXoc UaL6HSVmcbMnE9YsCNXdaRatLw G9p6G0Vg4UnQrwmWVjHE9jJrGl MAh9G0HqAqy0YKJvkDijIQ9s zVWqKKziGn5goMdvfDkzOH4zHF Xqnfyly120DtPgq3ejKFHgcJMr RDirOQR8H82wa7X9ZCZbCZMo JNT8bLA4hN6orTijvwfgeAPaiV stwsOwuUutPQbcFJhnH292OHKo iVhpVtUKFad6F9YrUys8ODCe bPhjQF6odEVmCRxsJr7yxAboxY ccUF0dRLNnvqdvj025NgDuv6bw EIBucEZjCIczOTX4O22th3H4 MTUtPXSyMEQ1hHO0kW3ikGftms ogbGVmdDsgdmVydGljYWwtYWxp K633AKEsjEyaRs9GPuh5Q6Ee Gjw4OEDqiHmwCS5vtNJuIOpcAm 0rwFlzrAolZG8bMVCavgrxe531 AwLqw1xsINOgoIEbSYqrXNA6 Z94hf8H9VZQqOWNyRTR1eUB9yF 1hbGlnbjogbGVmdDsgdmVydGlj QTahYVvvO437ZFSsnKxlSoJw eWVyOjwvdGQ+PP71rk80O7LzYu zmUmo0MDFaBCL0gSW0xY7eDJDp XUzew9W9aPB9T7CdiyIohc4u b2xs (more content not included)... Normal [facility] Consent for Treatmenton 01-04 Consent for Treatment [id number]#[id number]:127 Normal [facility] Endoscopic Procedure Report - Otheron 01-17-2022 Endoscopic [...] Follow-up in GI clinic in 2 weeks [facility] Comment on above: Result Comment: Elec tronically Signed By: ANATOLIY ERIC, Jeferson\.br\Date and Time Signed: 01/17/22 09:56 EDT Other Comment: Quyen vieira Attachment - attachment storage system not supported [id number] Can be viewed in source systemMissing Attachment - attachment storage system not supported [id number] Can be viewed in source systemMissing Attachment - attachment storage system not supported [id number] Can be viewed in source systemMissing Attachment - attachment storage system not supported [id number] Can be viewed in source systemMissing Attachment - attachment storage system not supported [id number] Can be viewed in source systemMissing Attachment - attachment storage system not supported [id number] Can be viewed in source systemMissing Attachment - attachment storage system not supported [id number] Can be viewed in source system Endoscopic Procedure Report - Other Patient: ADINA PERRY Age: 81 years Sex: Female : 1940 Associated Diagnoses: None Author: Jeferosn COPE MD Pre-Procedure Procedure Date 01/17/2022 09:53:00 [...] 2. GI clinic follow-up in 2 weeks [facility] Comment on above: Result Comment: in [...] Return to activities:: After 24 hours. Normal [facility] Comment on above: Result Comment: Elec tronically Signed By: ANATOLIY ERIC, Jeferson\.br\Date and Time Signed: 01/17/22 09:55 EDT Other Comment: Quyen vieira Attachment - attachment storage system not supported [id number] Can be viewed in source systemMissing Attachment - attachment storage system not supported [id number] Can be viewed in source systemMissing Attachment - attachment storage system not supported [id number] Can be viewed in source system Inpatient Patient Summaryon 01-17-2022 Inpatient Patient Summary [address] [address] [facility] Clinical Discharge Instructions PERSON INFORMATION Name: ADINA PERRY [facility]#:[id number] PHYSICIANS Admitting Physician: Jeferson COPE MD Attending Physician: Jeferson COPE MD PCP: ADRIANA CRUZ DO Discharge Diagnosis: Anemia Comment: PATIENT EDUCATION INFORMATION Instructions: Upper Endoscopy, Adult, Care After; Colonoscopy, Care After Surgery Anatoliy (CUSTOM); Diverticulosis MAGR (CUSTOM) Medication Leaflets: Follow up: With: Address: When: Jeferson COPE [address] [place] [address]. [address] [place], [place] [id number] [employer] (1) Comments: office will call for follow up Type Location Start [facility] 02/03/2022 10:20 AM 02/03/2022 10:40 AM [...] cholecalciferol (Vitamin D3) sertraline spironolactone Comment: Normal [facility] Main OR PACU I Recordon 01-04 Main OR PACU I Record PACU Phase I Docum ent Type FT Summary Primary Physician: Jeferson COPE MD Finalized Date/Time: 01/17/22 10:57:57 Pt. Name: ADINA PERRY /Sex: 1940 Female Med Rec #: [id number] Physician: Jeferson COPE MD Financial #: [id number] Pt. Type: O Room/Bed: / Admit/Disch: 01/17/22 [...] By: Jennifer Becerra RN 01/17/22 10:57 Normal [facility] Main OR Preoperative Recordo n 01-17-2022 Main OR Preoperative Record Holding Area Document Type FT Summary Primary Physician: Jeferson COPE MD Finalized Date/Time: 01/17/22 07:57:32 Pt. Name: ADINA PERRY /Sex: 1940 Female Med Rec #: [id number] Physician: Jeferson COPE MD Financial #: [id number] Pt. Type: O Room/Bed: / Admit/Disch: 01/17/22 [...] By: Regino Beckett RN 01/17/22 07:57 Normal [facility] Monitor Recordon 01-17-2022 Monitor Record [id number]:127 Normal [facility] Monitor Record [id number]:127 Normal [facility] Outpatient Surgery Discharge Instructionon 01-17-2022 Outpatient Surgery Discharge Instruction [place] [id number] Patient Discharge Instructions PERSON INFORMATION Name: ADINA PERRY Date of : 1940 Current Date: 01/17/2022 10:08:03 PHYSICIANS Admitting Physician: ANATOLIY ERIC [facility] Discharge Diagnosis: Anemia ADINA PERRY has been [...] Follow up: With: Address: When: Jeferson [address] [place] [address] [place] [phone] Business (1) Comments: office will call for follow up Type Location Start [facility] [place] 02/03/2022 10:20 AM 02/03/2022 10:40 AM Confirmed Pharmacy Information: [facility] You may receive a survey from [employer] asking you to rate your care experience. Your feedback is important and will help us understand what we do well and how we can improve the quality of care we provide to you, your loved ones and our community. It?s an honor to serve you. Thank you for choosing [facility] HERE ARE THE MEDICATION CHANGES THAT [...] activities are safe for you. ? Take xdbc-bxm-hpltyyc and prescription medicines only as told by [...] 09/21/2012 Document Revised: 09/14/2018 Document Reviewed: 08/23/2018 [employer] Patient Education ? 2020 [employer] Colonoscopy Care After Surgery Please read the ins (more content not included)... Normal [facility] Patient Education - Texton 1 Patient Education [...] unsweetened, w/added ascorbic acid 1 cup 0.5 [place] 1 cup 0.7 Vegetables Cooked Green beans 1 cup 4.0 Carrots 1/2 cup sliced 2.3 Peas 1 cup 8.8 Potato (baked, with skin) 1 medium potato 3.8 Raw [place] (with peel) 1 cucumber 1.5 Lettuce 1 [...] IMMEDIATE MEDIC (more content not included)... Normal [facility] Progress Note-Physicianon Progress Note-Physician Patient: ADINA PERRY [...] PACU when criteria met. Condition good. Normal [facility] Comment on above: Result Comment: Elec tronically [...] list: All Problems Anemia / SNOMED CT 401710427 / Confirmed Watery diarrhea / SNOMED CT 884721877 / Confirmed History of colon polyps / SNOMED CT 9934827589 / Confirmed Fecal incontinence / SNOMED CT 188829950 / Confirmed Nausea and vomiting / SNOMED CT 78854581 / Confirmed RLQ abdominal pain / SNOMED CT 757442814 / Confirmed Weight loss / SNOMED CT 014250284 / Confirmed, Active Problems (7) Anemia Fecal incontinence History of colon polyps Nausea and vomiting RLQ abdominal pain Watery diarrhea Weight loss Histories Past Medical History: No active or resolved past medical history items have been selected or recorded. Family History: Heart disease Father Primary malignant neoplasm of lung Sister Diabetes mellitus type 2 Father Brother Procedure history: EGD - Esophagogastroduodenoscopy ([id number]) on 07/06/2020 at 80 Years. Comments: 01/09/2022 16:03 EDT - Rajwinder Ho Dr Colonoscopy ([id number]). Comments: 01/09/2022 16:02 EDT - Rajwinder Ho [...] review: No qualifying data available . Plan [place] [employer]est[employer] (ASA) physical status classification: Class II. Anesthetic Preoperative Plan Anesthesia: Monitored anesthesia care and general anesthesia possible. Anesthetic plan, risks, benefits, and alternatives discussed with the patient and/or family. Pt. and/or family present and agree to proceed as planned.. Risks discussed including heart, lung, nerve damage. Risks of bleeding, dental injury, hospitalization, and general injury discussed. . Normal [facility] Comment on above: Result Comment: Elec tronically Signed By: Eliecer Pennington DO\poppy\Date and Time Signed: 01/17/22 08:36 EDT Coding Summary.on 01-16-2022 Coding Summary. CD:[id number] Gh0bWw +PGhlYWQ+KW3GBSXeP33ftWBer N0YU0gKYK5DNFYYHBWARQ3LAK1 jyFC6WIhiL5NntrKs JcfulBCqZX63BUf8HCQ8cRdfUM nlmI8adKKzE0n1HzRwZT71mU49 KHsyLCHrRbQ5ZqSocpjimZTo A7veLjZfgCSuQhu+PHRhYmxlIH mhJQVjESumIUAbBhFueSswPI2n Rf0wZDItKGJhnPpikAKxFlLm q8ymSSTnABmdBH7ayEurR3JzbT W7SORoj8n6Gu94qSO+PHRkIHN0 nOeuCJdpq456XyRfe1laJNI9 cREwUZfkOSR3S44cn0D8SVOqRE IuVZQ3zZY3jU8jfAdzywzuQ8Wa oQWzEzZ2GPE7jZQofN9lsYio syaiuX9sTda+G64QJV0DKVEMFF 8JMvh6L7GwZcyijUQ+JU65QINj ME01eGKmuBNpf7hcyPa5TrSy AZAwKYW6oSuiNNyzf7HeXBToY6 0apHNvm6Y4YADtcCpehRNvFbOc eLY5uY0xALrpkbryk3qvhvnf Jdjxw9zoyk86xV17B01xSPafAH EoMTZ2BZJsODSpkFqzff3wtP9z Ii8+ZRzpi3iel1tzjZi5BrWn AYRhdjUfmUtaFRN0a8YhDe24N6 RuiNsqz8CdQfj4om41oEFcd1V3 yYQ6HUyuLRFfyU5rJPmrOjP0 EULbUjUffJ70yONwJKgyMr7awC eerXyjOC3hPXDdoijwTFRbhQ1x UHApmDYtwClzYZ6wSDAuaoit c130CkBuBDL1AWOcrNPlT5YujL 1oPmEtFLRwLQKpI8IppLKoTFca B610VFerMiN8GKZvyxIuM4Gp BAYxtVysQuF5k5X0Na7Gc7Xzvz afXMR2VNfoNNJmTmVuEkKgJpN2 A2PaVhq2LCDqfUpuJF9oO9Ug ACRfketvzkpwyDC9KXEbCPDqcA 94cANsEOkjYo5po7M3v474YQPo DNSigM33Wl1mcDtyVDYnvJJR iZ7ltcktp9bwxedlXvGpSNSwZP e5PFv9XSSppZthUaVxUZT9SiV1 BIH2oVMwgA1ryTfmyytqjH9k Oyc+X97kgC6xSMX4YUE9ldmsHR NkavPmXX75SQ80W4WuDzsnoGGr bGU+ZAQfkeArgVfsZH4dTkZq x1pfu2OgBRolA3InMKGwRVocLw v0YCVfDMD9xLQ9iX0wCWHfIWjh h1M9fNB0A3NqoyNeuy5ym2lm EXOyZPtlQ62uaUXdf0D1LMEnfY W5MLDmwXlkEpUmxC28Baw+PGNv sDfdy7BxFqwbi6oep1wibRl9 WcQkSOPtcrPrpLooQWP0t6LmBd 57N95yBOgrDBTxIPGpQDBfTSTx mPflcd7osK1eEq4+PGNvbCB3 gTD6xQ3hIECgWdO3WPntN818Fv VxeIRaGoszo8owm2ufqYl5SaNo KTKbbhQrzKmvOSQ0y7FrOk02 T67jFWpkDPQmHSBuBDLlUOYqmB suxm0qcW8uQc4+VV0mu8ksew83 nA97wTX+UQYsFWN7lTzfLJxs ASIrbR8nITdtXbR6WJLoTwVneZ 88vAWaEXfpPy0reEpulRtqIO0b QIEbpbync213DmKsx5jdYSKa eNXuPLozWFV6J58yc6Q8ATFuIC YtNZK5aYR4nV6ygStlnloycYGa oWlxmpDqaAezAGlsUSugU580 IHRvcDsnPlBhdGllbnQgTmFtZT b0D4OxGje4AFXwsYoxRM8ehZPc KXinNo9lgIyznIcmUZ6nUGHe bzacy747HfHgw3zvIRXulSYyEK leZCA5Q86dq8Q9RVMoNHFnVNH5 rFF6nE6jjDxlwdcikMDznOmo isLivFypMGqpMVobI423GQGjpL yiDoWbcqTwUULdeTG1NN73YF43 yHXsm0F8kKO1E5EkUMLwkbpo qyfzyYB9DEKoJAYijG96Zh1qxN vrYl8zNZOaGPH4CJRoePOsC2Wz iB6qZfKsYFMxLQZiU5QcaNFv DXaiV958IZpiYtO3ZMVojeApX5 GnAZJaoNkfQaD3f5S2Hx0OT8O7 CZ46WK21aKMlj9P9xQS5R1Hk CSQxfkzdbkstxNA9QKXkHZJfwT 89As6sqLicIn7kVVUrWRD1WZFs sAZjB5UwqD5fMfPiDEYeKCVd Y1NnjCQhUJjuJ361AEafCgA5SE BfieAfJ3AyQKVcqGsdRsL4a0T2 Ck9AQAe5WA43GJ69pJGmd3J6 yXX0T6PdSNMsvrwgfstizAW1CH PcVYLfcN99Ai8mzMilIb4tLATu KDN8RVFtlJTwH6KeqL9zSnQb VENiXCBoR2BpjPLxZHlqF600SR mmHjP3TQFvibXjQ2HwBRRlpOlb HdN5c5C0Br1VRIYtKX91FAF9 yXF2BT87IA90W9UdGgroaQTanD U+PHRhYmxlIHdpZHRoPScxMDAl MpMfhUmuQW4kVg1iGDVdHXKd nIvqzPAyKmQbl1oqGOAgGYliIG 1siLxrQ4NcnTF5BEUju7d9Nd05 T13uM3SpoOI+ZRSaaLL2gTA0 rL9fWhPgCiW4WJikG210XyQomA FfGnzdw8lfb5girKw1DtH7XDBb pjXzoHcnTFB0t8DlZb56J36p IHdpZHRoPSIxNSUiIHZhbGlnbj 1zhJ7mYc0+TGJcrZM7cAU0cY2j BtVpFwQ0OWxmW361ZsOcsCBe Cujsj5cuv4janFz1DcSwLMFsde EqmIjlQIN2r9AwSx58B4LrqHsh l7OpGuu7cm30gCHil7E2fRH0 T5LsOTYulkwwsNVpiBxaLJ9zXL RttflcWXTieP4wDBEoB6z5DcTw NaX4FXzgV6GpyuE8IHFilXYm OFbrBME3E11tm6Y0MECdQBVyDV A4dEJ7vK6reIjxnstxrRTooRsx jyQkkBhdGShjFEarQ822UIUk aTykBJOxqF0dESDijRHblEpwBQ 6tQRUsnnmzPmQBW9QPW6OaATTV AUXGS9rIWR42KE45oYOsk0U0 eZA5M2ZsCQFfbvwtifqirLH3HQ QvSOFzjG41fZLkSSiyOx2qa4C9 b774KCGmHOTbqE14Oy1gfGnj LVQblTTBrN9bicrse1dbfhpkSt ZjFKDbCJv3SNs8ZJBmvZwlVyBx SAD5MiY1CQU4xTWvpQ7inBjz fzdpnP5cWoj+UOGwDIUfTSw3Ml wvdGQ+THOqGWU0lOhcICtcLFMp fS5aCHNrR7e7JzApZvL7ZGbr L2DvGJNyxiotLz51oW7lYwIrRt B7EWfrV2UuxoQ0JCBysZLaZGyo PFY6M76xg6T4ZMQhTMRgYQX1 vDW5iU4coGqelufvxZRgzVwnav JoqWyuKRahOVjvU710ZEFllOxx Gdm4RZgiPFFjRG27AY27vYRv r2U4lOE1P7KtVSKkwmehibitbP C7BTYjBIGbfZ46mQKuUWfkUa0z j9S4e516VZIeNIEjsG45Fk4k oQccOLXadZSRfV7fcgdgk1uxyi naFjMoGFXzKKq0IWd6FCCtbTws SyAyCLB5AkL1QXC8iSJepQ7u cTnhxboiwF5cBnr+RmVtYWxlPC 52HA89qOEof3Q7nEP8W8DzVFMe cnbzebzzgTV0PZCaHERpaV20 qBLhGFenJo5yc6D0v038CPVbFB IcqB09Nh6oiIkiIUJzoOAAoN3j eezag1lyjwsuRvDpMWOpGSz6 PNe7BXDpiYhfYtObZTB2RyJ1NJ U4zNIakQ7zeXezvfaayD8pLem+ L6Y4pBR4yUQobJxfeHN+PC90 kh58P7GcKxpcTmy8WFVxNUG5qN O9oJ2wCCTtXUpnt9X3xKQ2M3Fl esJfde9gc1uvYHJlEKjfB99y lWBgv9I1IVIfgZX7BVTnoJbgRt RjbU78Oxc+VXHmeWteg0PkDwyc t3pfm5sveAz5NvEvQADwymIk vPmxATC9h2ZtQm04P62lGUcmJE BkFKPkWDTtDRRexLlsua3ugJ0g Ii8+QYGvzUB7nBR9sU9qTwOe DgE7DYwnO963CmPvbKPqHypwn6 dbw0dzvTi1RrUmBMGtnvWvzFne EMC4i8ViRj50C6KdmAkys9Hk Axl4tq02nKWej1W5cKN2Q5NaVX OpgdpfnDEgeGscMB5yMMEawche QYSibX0hVMDyT7e1LjQrMmR3 OUbfE8XfrdV2IJGalROjXUHbeE ILzE8qaeobq6eclbhnEtTyRXVk LWh8DNa3APNpbJyoIcSlRPT4 TqD1WWO6uTOpuJ6yvOxrgqsbpB 9wOyc+PNn3v5gnhLYoKD4ccFZ0 GU50KK50aLQzv5L5tJP8Z4Ob HINniwaiywwizHV0AGZnUKRwcM 19Xl4vgUozTn1aXNZaXUD0OZVv aXXcE7PvkT6aUpIwYDYnRYAl D1KgbQRdKMyfP595GHwnQpH0HL ElwtJcW1CdHJJzjNlgUwR0e3R5 Bf2SJK42DP81DZ81iJFqz4W0 lGV0A2AcWNBihpkyqtcqzDF7GS ZnORHmjV45Ah9mxAhxQr9wXFZy ZSJ5OLDjiDMsT3RzaG7xXxSa AMBtABCaG8ZjyJUyHZmiF357ZV vsVkT0ORCnqjQiU0SrYFQweHob AcB2c7C4Tt6NRp49DH70GW04 nSBwo0S0gVX3F8OwVZLshfjcgj eceFB7ZQLmPNUawB48Uh3gqYdg Jo0jITObYOJ5JESsvLHmP0Un aV3gTzIaOOVjUXRrH2VdcAZlMA lbS029VDtlUfS3TQGxswLfC4Ze APBdqXhtCeY1r3L6Bc9HDOxi oyq4K1OpXowxmWL+SQ55KIGzIC 43mOFynKKtq3rfpHa6BvQuUVKx TLG8oUbpVWtxn2GzRLOpY64n bGFw (more content not included)... Normal [facility] C. diff by PCRon 01-14-2022 Clostridium difficile by PCR see comment Invalid Interpretation Code [facility] Comment on above: Result Comment: Unab le [...] its clinical significance. Performed By: #### 1 [id number], [id number], 04951298, 11929543, 81735577, 47955877 ####[facility] [address] [place] [address] Consent for Procedure/Surger yon 01-14-2022 Consent for Procedure/Surgery [id number]:127 Normal [facility] Enteric Panel by PCRon 01-14 C. coli+jejuni+upsaliens is DNA FERN+non-probe Ql (Stl) Not detected Normal [facility] Comment on above: Result Comment: Test ing was performed utilizing reverse java scala developer (RT), polymerase chain reaction (PCR), and array [...] nulcleic acid test. Performed By: #### 1 [id number], 881385581, 31686921, 11545397, 18832701, 97951409 ####[address] [place] [address] E. coli stx1+stx2 genes FERN+non-probe Ql (Stl) Negative Normal [facility] Comment on above: Performed By: #### 1 [id number], 299220453, 70924992, 55466195, 94354798, 51084067 ####[facility] [address] [place] [address] Enteric Panel by PCR Negative Normal [facility] Enteric Panel Intrl QC Pass Normal [facility] Comment on above: Result Comment: Test ing was performed utilizing reverse java scala developer (RT), polymerase chain reaction (PCR), and array [...] 1 and 2. Performed By: #### 1 [id number], 614325184, 13736105, 54672299, 64770888, 33022804 ####[facility] [address] [place] [address] Norovirus genogroup I+II RNA FERN+non-probe Ql (Stl) Not detected Normal [facility] Comment on above: Performed By: #### 1 [id number], 390358162, 32480834, 95999406, 60987864, 09823884 ####[address] [place] [address] Rotavirus A RNA FERN+non-probe Ql (Stl) Not detected Normal [facility] Comment on above: Performed By: #### 1 539447537, 533223555, 84775056, 35054789, 33542966, 69277045 ####[address] [place] [address] S. enterica+bongori DNA FERN+non-probe Ql (Stl) Not detected Normal [facility] Comment on above: Result Comment: This test result should be correlated with clinical presentations and medical history by a healthcare provider to determine its clinical significance. Performed By: #### 1 [id number], 365146719, 20269183, 47975901, 78437743, 85019151 ####[address] [place] [address] Shigella species+EIEC invasion plasmid antigen H ipaH gene FERN+non-probe Ql (Stl) Not detected Normal [facility] Comment on above: Performed By: #### 1 [id number], 863503729, 38611462, 19786052, 18147401, 20045882 ####[facility] [address] [place] [address] V. cholerae+parahaemolyt icus+vulnificus DNA FERN+non-probe Ql (Stl) Not detected Normal [facility] Comment on above: Performed By: #### 1 [id number], 056675906, 36228055, 72921228, 76055392, 61847232 ####[facility] [address] [place] [address] Y. enterocolitica DNA FERN+non-probe Ql (Stl) Not detected Normal [facility] Comment on above: Performed By: #### 1 697817602, 069482448, 34586376, 45147931, 63813990, 77227244 ####[facility] [address] [place] [address] Fecal WBC Lactoferrinon 01-04 Fecal WBC Lactoferrin Negative Normal Negative Fis [facility] Comment on above: Result Comment: The semi-quantitative detection of elevated levels of fecal lactoferrin is a marker for fecal leukocytes and an indication of intestinal inflammation. Performed By: #### 1 [id number], 019002240, 01783483, 26657393, 63727003, 04178464 #### [facility] [address] [place] [address] Ambulatory Visit Summaryon 1 Ambulatory Visit Summary [...] diarrhea Invalid Interpretation Code RLQ abdominal pain [facility] Auto Diffon 01-10-2022 Basophils/100 WBC (Bld) 1.0 % Normal 0.0-2.0 [facility] Comment on above: Order Comment: Order Added by Discern Expert. Performed By: #### 2 426343, 2495492, 40038931, 4777669 ####[facility] [address] [place] [address] Basophils/Leukocytes Auto (Bld) [Pure # fraction] 0.1 E9/L Normal 0.0-0.2 [facility] Comment on above: Order Comment: Order Added by Discern Expert. Performed By: #### 2 634267, 2548407, 32887172, 0325258 ####[facility] [address] [place] [address] Eosinophils/100 WBC (Bld) 1.0 % Normal 0.0-8.0 [facility] Comment on above: Order Comment: Order Added by Discern Expert. Performed By: #### 2 126547, 6992765, 72571254, 3591486 ####[facility] [address] [place] [address] Eosinophils/Leukocyte s Auto (Bld) [Pure # fraction] 0.1 E9/L Normal 0.0-0.5 [facility] Comment on above: Order Comment: Order Added by Ramírez Expert. Performed By: #### 2 877152, 3491531, 28385655, 8501025 ####[facility] [address] [place] [address] Lymphocytes/100 WBC (Bld) 20.0 % Normal 14.0-50.0 [facility] Comment on above: Order Comment: Order Added by Discern Expert. Performed By: #### 2 466791, 8745354, 14223240, 9717260 ####[facility] [address] [place] [address] Lymphocytes/Leukocyte s Auto (Bld) [Pure # fraction] 2.0 E9/L Normal 1.0-4.0 [facility] Comment on above: Order Comment: Order Added by Ramírez Expert. Performed By: #### 2 842793, 8849250, 60082327, 5182936 ####[address] [address] Monocytes/100 WBC (Bld) 8.7 % Normal 4.0-14.0 [facility] Comment on above: Order Comment: Order Added by Ramírez Expert. Performed By: #### 2 258520, 2161983, 72154394, 0638050 ####[facility] [address] [place] [address] Monocytes/Leukocytes Auto (Bld) [Pure # fraction] 0.9 E9/L Normal 0.2-1.0 [facility] Comment on above: Order Comment: Order Added by Ramírez Expert. Performed By: #### 2 093030, 6569923, 47462737, 9340994 ####[facility] [address] [place] [address] Neutrophils/100 WBC (Bld) 69.3 % Normal 36.0-75.0 [facility] Comment on above: Order Comment: Order Added by Ramírez Expert. Performed By: #### 2 839830, 2013263, 76656447, 5163627 ####[facility] [address] [place] [address] Neutrophils/Leukocyte s Auto (Bld) [Pure # fraction] 7.0 E9/L Normal 2.0-7.5 [facility] Comment on above: Order Comment: Order Added by Discern Expert. Performed By: #### 2 963168, 9069609, 89877819, 6647454 ####[address] [address] CBC w/ Auto Diffon Erythrocyte distribution width (RBC) [Ratio] 14.7 % High 10.9-14.2 [facility] Comment on above: Performed By: #### 2 081005, 0134129, 63002646, 4180746 ####[address] [address] Hematocrit (Bld) [Volume fraction] 37.1 % Normal 34.0-46.0 [facility] Comment on above: Performed By: #### 2 572811, 6269224, 09819236, 5348439 ####[address] [address] Hemoglobin (Bld) [Mass/Vol] 12.2 g/dL Normal 12.0-16.0 [facility] Comment on above: Performed By: #### 2 667816, 0437184, 72618282, 3533296 ####[address] [address] MCH (RBC) [Entitic mass] 30.0 pg Normal 27.0-34.0 [facility] Comment on above: Performed By: #### 2 095508, 0210780, 12704302, 4804353 ####[address] [address] MCHC (RBC) [Mass/Vol] 33.0 g/dL Normal 31.4-36.0 [facility] Comment on above: Performed By: #### 2 975776, 7131867, 63650238, 4931280 ####[address] [address] MCV (RBC) [Entitic vol] 90.8 fL Normal 80.0-100.0 [facility] Comment on above: Performed By: #### 2 942035, 7015704, 13786789, 0867621 ####[address] [place] [address] Platelet mean volume (Bld) [Entitic vol] 7.9 fL Normal 6.4-10.8 [facility] Comment on above: Performed By: #### 2 776592, 3933605, 39677541, 4004158 ####[address] [address] Platelets (Bld) [#/Vol] 281.0 E9/L Normal 150.0-500. 0 [facility] Comment on above: Performed By: #### 2 882018, 7077404, 68545863, 9149489 ####[address] [address] RBC (Bld) [#/Vol] 4.1 E12/L Low 4.3-5.9 [facility] Comment on above: Performed By: #### 2 738443, 7041338, 83830341, 1190282 ####[address] [address] WBC corrected for nucl RBC Auto (Bld) [#/Vol] 10.1 E9/L Normal 4.0-11.0 [facility] Comment on above: Performed By: #### 2 415821, 7981941, 15784416, 8855491 ####[address] [address] CMPon 01-10-2022 Albumin [Mass/Vol] 4.4 g/dL Normal 3.3-5.0 [facility] Comment on above: Performed By: #### 2 400677, 7873669, 40597643, 8776700 ####[address] [address] Albumin/Globulin (S) [Mass conc ratio] 1.5 Normal 1.1-2.2 [facility] Comment on above: Performed By: #### 2 343289, 8038725, 08994991, 6997519 ####[facility] [address] [place] [address] ALP [Catalytic activity/Vol] 55 Int._Unit/L Normal 21-98 [facility] Comment on above: Performed By: #### 2 637232, 5636426, 64940291, 2709748 ####[facility] [address] [place] [address] ALT No additional P-5'-P [Catalytic activity/Vol] 15 Int._Unit/L Normal 6-46 [facility] Comment on above: Performed By: #### 2 587365, 8264296, 33766715, 9152017 ####[facility] [address] [place] [address] Anion gap [Moles/Vol] 19 mmol/L High 6-16 [facility] Comment on above: Performed By: #### 2 413715, 1707071, 68091228, 3466354 ####[facility] [address] [place] [address] AST [Catalytic activity/Vol] 19 Int._Unit/L Normal 5-43 [facility] Comment on above: Performed By: #### 2 822469, 1947388, 50950835, 4996670 ####[facility] [address] [place] [address] Bilirubin [Mass/Vol] 0.7 mg/dL Normal 0.0-1.1 [facility] Comment on above: Performed By: #### 2 585344, 1775119, 43218063, 8614607 ####[facility] [address] [place] [address] Calcium [Mass/Vol] 10.5 mg/dL Normal 8.9-11.1 [facility] Comment on above: Performed By: #### 2 801871, 1818458, 91302357, 6362738 ####[facility] [address] [place] [address] Chloride [Moles/Vol] 103 mmol/L Normal 101-111 [facility] Comment on above: Performed By: #### 2 849278, 4117616, 11873416, 4488976 ####[facility] [address] [place] [address] CO2 [Moles/Vol] 23 mmol/L Normal 21-31 [facility] Comment on above: Performed By: #### 2 694265, 2812020, 46407725, 4935199 ####[facility] [address] [place] [address] Creatinine [Mass/Vol] 1.2 mg/dL Normal 0.5-1.3 [facility] Comment on above: Performed By: #### 2 300738, 9796526, 57598331, 9686442 ####[facility] [address] [place] [place] [address] Globulin (S) [Mass/Vol] 2.9 g/dL Normal 1.4-4.0 [facility] Comment on above: Performed By: #### 2 928104, 8962992, 53977021, 2335854 ####[facility] [address] [place] [address] Glucose [Mass/Vol] 94 mg/dL Normal 55-199 [facility] Comment on above: Result Comment: If t his glucose result represents a fasting glucose, interpretation should refer to the following reference range: 55-99 mg/dL Performed By: #### 2 840691, 3720501, 27387027, 9519631 ####[facility] [address] [place] [place] [address] Potassium [Moles/Vol] 4.7 mmol/L Normal 3.5-5.3 [facility] Comment on above: Performed By: #### 2 477487, 0873910, 45642002, 6026462 ####[facility] [address] [place] [address] Protein [Mass/Vol] 7.3 g/dL Normal 6.0-7.8 [facility] Comment on above: Performed By: #### 2 093950, 2165476, 99462610, 3825027 ####[facility] [address] [place] [address] Sodium [Moles/Vol] 140 mmol/L Normal 135-145 [facility] Comment on above: Performed By: #### 2 040483, 1125707, 88552104, 7235521 ####[facility] [address] [place] [address] Urea nitrogen [Mass/Vol] 25 mg/dL High 5-21 [facility] Comment on above: Performed By: #### 2 764109, 8265706, 46086778, 0524539 ####[facility] [address] [place] [address] Urea nitrogen/Creatinine [Mass ratio] 21 No Units High 10-20 [facility] Comment on above: Performed By: #### 2 772730, 1184778, 27636824, 1055584 ####[facility] [address] [place] [address] Consent for Treatmenton 10-0 Consent for Treatment [id number]:127 Normal [facility] Gastroenterology Office/Clin ic Noteon 01-10-2022 Gastroenterology Office/Clinic [...] had previous EGD with Dr. Brannon at [facility] 07/2020 that revealed normal EGD. Was previously evaluated at [facility] 11/12/21 for N/V/D and had CT abdomen/pelvis [...] Patient had previous colonoscopy 2010 in [place] and reports was normal. Patient reports hx. [...] to evaluate for acute process. 11/12/21 at [facility]-CT abdomen/pelvis that showed fat-containing ventral hernia. [...] at times. (more content not included)... Normal [facility] Comment on above: Result Comment: Elec tronically [...] your local community. General instructions ? Take zxpm-opl-omdqduq and prescription medicines only as told by [...] Foundation for Functional Gastrointestinal Disorders: iffgd.org ? [employer]: patients.gi.org Contact a health care provider if: ? You have a fever. ? You have redness, swelling, or pain around your rectum. ? Your pain is getting worse or you lose feeling in your rectal area. ? You have blood (more content not included)... Normal [facility] eGFRon 01-10-2022 GFR/1.73 sq M.predicted among blacks MDRD (S/P/Bld) [Vol rate/Area] 53 mL/min/1.73 m2 Low >=59 [facility] Comment on above: Order Comment: Order added by Discern Expert. Result Comment: eGFR is race adjusted. AA=. Performed By: #### 2 170249, 9187582, 57392677, 7733090 ####[facility] [address] [place] [address] GFR/1.73 sq M.predicted among non-blacks MDRD (S/P/Bld) [Vol rate/Area] 43 mL/min/1.73 m2 Low >=59 [facility] Comment on above: Order Comment: Order added by Discern Expert. Result Comment: [employer] serene kidney disease could be indicated at eGFR's of less than 60 mL/min/1.73m2. Kidney failure is indicated at less than 15 mL/min/1.73m2. Performed By: #### 2 534699, 4055605, 18728222, 0851242 ####[facility] [address] [place] [address] Physician Referralon 022 Physician Referral [id number]:127 Normal [facility] Urine culture routineOrdered By: Misbah Greenwood on 11-15-2021 Bacteria identified Cx Nom (U) Escherichia coli [facility] Bacteria identified Cx Nom (U) Klebsiella pneumoniae [facility] Automated erythrocytes count in urine sediment (number/area)Ordered By: Misbah Greenwood on 11-12-2021 RBC Auto (Urine sed) [#/Area] 1-2 [HPF] 0-[address] [facility] Automated leukocytes count i n urine sediment (number/area)Ordered By: Misbah Greenwood on 11-12-2021 WBC Auto (Urine sed) [#/Area] 10-19 [HPF] 0-[address] [facility] Automated urine hyaline cast s count (number/volume)Ordered By: Misbah Greenwood on 11-12-2021 Hyaline casts Auto (U) [#/Vol] Rare [LPF] 0-[address] [facility] Basophils Auto (Bld) [#/Vol] Ordered By: Misbah Greenwood on 11-12-2021 Basophils (Bld) [#/Vol] 0.1 10*3/uL 0.0-0.[address] [facility] Basophils/100 WBC Auto (Bld) Ordered By: Misbah Greenwood on 11-12-2021 Basophils/100 WBC (Bld) 0.7 % . [facility] Bilirubin Test strip Ql (U)O rdered By: Misbah Greenwood on 11-12-2021 Bilirubin Ql (U) Negative Negative [facility] Blood hemoglobin measurement (mass/volume)Ordered By: Misbah Greenwood on 11-12-2021 Hemoglobin (Bld) [Mass/Vol] 10.8 g/dL 11.8-15.[address] [facility] Blood leukocytes automated c ount (number/volume)Ordered By: Misbah Greenwood on 11-12-2021 WBC (Bld) [#/Vol] 12.3 10*3/uL 4.5-11.0 [facility] Body fluid albumin measureme nt (mass/volume)Ordered By: Misbah Greenwood on 11-12-2021 Albumin (Body fld) [Mass/Vol] 3.7 g/dL 3.2-5.[address] [facility] COVID-19 SOFIAOrdered By: Kee Greenwood on 11-12-2021 SARS-CoV+SARS-CoV-2 (COVID-19) Ag IA.rapid Ql (Resp) Negative Negative [facility] Comment on above: This is a duplicate Johana SARS Antigen (DEEDEE) result to be used for statistical tracking purpose only. Casts typing in urine sedime nt by light microscopyOrdered By: Misbah Greenwood on 11-12-2021 Casts LM Nom (Urine sed) None seen [LPF] None Seen [facility] Color Auto (U)Ordered By: Kee Greenwood on 11-12-2021 Color (U) Yellow Yellow [facility] Creatinine and Glomerular fi ltration rate.predicted panel (S/P/Bld)Ordered By: Misbah Greenwood on 11-12-2021 Creatinine [Mass/Vol] 1.58 mg/dL 0.44-1.03 [facility] Eosinophils Auto (Bld) [#/Vo l]Ordered By: Misbah Greenwood on 11-12-2021 Eosinophils (Bld) [#/Vol] 0.2 10*3/uL 0.0-0.[address] [facility] Eosinophils/100 WBC Auto (Bl d)Ordered By: Misbah Greenwood on 11-12-2021 Eosinophils/100 WBC (Bld) 1.4 % . [facility] Erythrocyte distribution wid th Auto (RBC) [Ratio]Ordered By: Misbah Greenwood on 11-12-2021 Erythrocyte distribution width (RBC) [Ratio] 13.7 % 11.9-15.[address] [facility] Estimated glomerular filtrat ion rate (GFR) non- AmericanOrdered By: Misbah Greenwood on 11-12-2021 GFR/1.73 sq M.predicted among non-blacks MDRD (S/P/Bld) [Vol rate/Area] 32 mL/Min [facility] Globulin Calc (S) [Mass/Vol] Ordered By: Misbah Greenwood on 11-12-2021 Globulin (S) [Mass/Vol] 3.0 g/dL [facility] Hematocrit Auto (Bld) [Volum e fraction]Ordered By: Misbah Greenwood on 11-12-2021 Hematocrit (Bld) [Volume fraction] 32.4 % 34.0-46.[address] [facility] Ketones Auto test strip (U) [Mass/Vol]Ordered By: Misbah Greenwood on 11-12-2021 Ketones (U) [Mass/Vol] Negative Negative [facility] Laboratory - Chemistry and C hemistry - challengeOrdered By: Misbah Greenwood on 11-12-2021 Lipase [Catalytic activity/Vol] 44.0 U/L 22-[address] [facility] Laboratory - Hematology and Cell countsOrdered By: Misbah Greenwood on 11-12-2021 Nucleated RBC/100 WBC (Bld) [Ratio] 0.0 % 0-0.[address] [facility] Lymphocytes Auto (Bld) [#/Vo l]Ordered By: Misbah Greenwood on 11-12-2021 Lymphocytes (Bld) [#/Vol] 0.9 10*3/uL 1.00-4.[address] [facility] Lymphocytes/100 WBC Auto (Bl d)Ordered By: Misbah Greenwood on 11-12-2021 Lymphocytes/100 WBC (Bld) 7.5 % . [facility] MCH Auto (RBC) [Entitic mass ]Ordered By: Misbah Greenwood on 11-12-2021 MCH (RBC) [Entitic mass] 29.9 pg 24.7-34.[address] [facility] MCHC Auto (RBC) [Mass/Vol]Or dered By: Misbah Greenwood on 11-12-2021 MCHC (RBC) [Mass/Vol] 33.2 g/dL 32.0-35.0 [facility] MCV Auto (RBC) [Entitic vol] Ordered By: Misbah Greenwood on 11-12-2021 MCV (RBC) [Entitic vol] 90.0 fL 80-[address] [facility] Monocytes Auto (Bld) [#/Vol] Ordered By: Misbah Greenwood on 11-12-2021 Monocytes (Bld) [#/Vol] 1.0 10*3/uL 0.0-0.[address] [facility] Monocytes/100 WBC Auto (Bld) Ordered By: Misbah Greenwood on 11-12-2021 Monocytes/100 WBC (Bld) 8.3 % . [facility] Neutrophils Auto (Bld) [#/Vo l]Ordered By: Misbah Greenwood on 11-12-2021 Neutrophils (Bld) [#/Vol] 10.1 10*3/uL 1.8-7.[address] [facility] Neutrophils/100 WBC Auto (Bl d)Ordered By: Misbah Greenwood on 11-12-2021 Neutrophils/100 WBC (Bld) 82.1 % . [facility] Nitrite Test strip Ql (U)Ord ered By: Misbah Greenwood on 11-12-2021 Nitrite Ql (U) Negative Negative [facility] No Panel InformationOrdered By: Misbah Greenwood on 11-12-2021 Estimated GFR () 38 mL/Min [facility] Comment on above: GFR estimated refere nce range: According to KDOQI guidelines, <60 ml/min/1.73m2 is sufficient to diagnose a patient with chronic kidney disease. Pharmacy Creatinine Clearance (Chem 20.[address] [facility] SARS Antigen (LFIA) [facility] Platelet mean volume Auto (B ld) [Entitic vol]Ordered By: Misbah Greenwood on 11-12-2021 Platelet mean volume (Bld) [Entitic vol] 7.6 fL 6.3-10.[address] [facility] Platelets Auto (Bld) [#/Vol] Ordered By: Misbah Greenwood on 11-12-2021 Platelets (Bld) [#/Vol] 379 10*3/uL 150-[address] [facility] Protein Auto test strip (U) [Mass/Vol]Ordered By: Misbah Greenwood on 11-12-2021 Protein (U) [Mass/Vol] Trace mg/dL Negative [facility] Protein [Mass/volume] in Ser um or PlasmaOrdered By: Misbah Greenwood on 11-12-2021 Protein [Mass/Vol] 6.7 g/dL 6.1-7.9 [facility] RBC Auto (Bld) [#/Vol]Ordere d By: Misbah Greenwood on 11-12-2021 RBC (Bld) [#/Vol] 3.59 10*6/uL 3.60-5.00 [facility] Serum or plasma alanine villanueva otransferase measurement without P-5'-P (enzymatic activiOrdered By: Misbah Greenwood on 11-12-2021 ALT No additional P-5'-P [Catalytic activity/Vol] 13 U/L 10-[address] [facility] Serum or plasma albumin/glob ulin mass ratioOrdered By: Misbah Greenwood on 11-12-2021 Albumin/Globulin [Mass ratio] 1.2 {ratio} [facility] Serum or plasma alkaline ladarius sphatase measurement (enzymatic activity/volume)Ordered By: Misbah Greenwood on 11-12-2021 ALP [Catalytic activity/Vol] 74 U/L 32-[address] [facility] Serum or plasma aspartate am inotransferase measurement (enzymatic activity/volume)Ordered By: Misbah Greenwood on 11-12-2021 AST [Catalytic activity/Vol] 17 U/L 10-[address] [facility] Serum or plasma calcium dennis urement (mass/volume)Ordered By: Misbah Greenwood on 11-12-2021 Calcium [Mass/Vol] 9.5 mg/dL 8.2-10.2 [facility] Serum or plasma chloride brea surement (moles/volume)Ordered By: Misbah Greenwood on 11-12-2021 Chloride [Moles/Vol] 103 mmol/L 95-114 [facility] Serum or plasma glucose dennis urement (mass/volume)Ordered By: Misbah Greenwood on 11-12-2021 Glucose [Mass/Vol] 118 mg/dL 70-100 [facility] Comment on above: ADA recommended refe rence range Random Glucose Reference Range is dependent on time and content of last meal. Glucose of more than 200 mg/dL in a nonstressed, ambulatory subject supports the diagnosis of Diabetes Mellitus. Serum or plasma potassium me asurement (moles/volume)Ordered By: Misbah Greenwood on 11-12-2021 Potassium [Moles/Vol] 3.7 mmol/L 3.5-5.1 [facility] Serum or plasma sodium measu rement (moles/volume)Ordered By: Misbah Greenwood on 11-12-2021 Sodium [Moles/Vol] 135 mmol/L 136-146 [facility] Serum or plasma total biliru bin measurement (mass/volume)Ordered By: Misbah Greenwood on 11-12-2021 Bilirubin [Mass/Vol] 0.3 mg/dL 0.3-1.2 [facility] Serum or plasma total carbon dioxide measurement (moles/volume)Ordered By: Misbah Greenwood on 11-12-2021 CO2 [Moles/Vol] 19.9 mmol/L 22.0-30.0 [facility] Serum or plasma urea nitroge n measurement (mass/volume)Ordered By: Misbah Greenwood on 11-12-2021 Urea nitrogen [Mass/Vol] 21 mg/dL 9-[address] [facility] Specific gravity Auto test s trip (U) [Rel density]Ordered By: Misbah Greenwood on 11-12-2021 Specific gravity (U) [Rel density] 1.012 1.001-1.[address] [facility] Squamous epithelial cells de tection in urine sediment by light microscopyOrdered By: Misbah Greenwood on 11-12-2021 Epithelial cells.squamous LM Ql (Urine sed) 5-9 [HPF] 0-[address] [facility] Urine bacteria detection by automated methodOrdered By: Misbah Greenwood on 11-12-2021 Bacteria Auto Ql (U) None seen None Seen [facility] Urine clarity by refractomet ry automatedOrdered By: Misbah Greenwood on 11-12-2021 Clarity Refractometry automated (U) Clear Clear [facility] Urine glucose measurement by automated test strip (mass/volume)Ordered By: Misbah Greenwood on 11-12-2021 Glucose Auto test strip (U) [Mass/Vol] Normal mg/dL Normal [facility] Urine hemoglobin detection b y automated test stripOrdered By: Misbah Greenwood on 11-12-2021 Hemoglobin Auto test strip Ql (U) Negative Negative [facility] Urine leukocyte esterase det ection by automated test stripOrdered By: Misbah Greenwood on 11-12-2021 Leukocyte esterase Auto test strip Ql (U) 1+ Negative [facility] Urine sediment renal epithel ial cell count by microscopy (number/high power field)Ordered By: Misbah Greenwood on 11-12-2021 Epithelial cells.renal LM.HPF (Urine sed) [#/Area] None seen [HPF] 0-[address] [facility] Urobilinogen Auto test strip (U) [Mass/Vol]Ordered By: Misbah Greenwood on 11-12-2021 Urobilinogen (U) [Mass/Vol] Normal mg/dL Normal [facility] pH Auto test strip (U)Ordere d By: Misbah Greenwood on 11-12-2021 pH (U) 5.5 [pH] 5.0-9.[address] [facility] SCREENING MAMMOGRAM W/DANIEL, BILATERAL*on 10-18-2021 SCREENING [...] VERY IMPORTANT TO YOUR HEALTH. THE CURRENT [employer]IRATI [employer] OF [employer]IOLOGY AND N[employer] COMPREH[employer]IVE [employer] NETWORK GUIDELINES RECOMMEND ANNUAL MAMMOGRAPHY BEGINNING AT AGE 40. THIS FACILITY UTILIZES A REMINDER SYSTEM TO ENSURE ALL PATIENTS RECEIVE A REMINDER NOTIFICATION AT THE APPROPRIATE TIME BASED ON THE RECOMMENDATIONS OF THIS EXAM. BOARD CERTIFIED RADIOLOGIST. ACCREDITED BY THE [facility] AND FDA. Report reported and signed by Claudia Hinson on 10/21/2021 1432 Normal [facility] CARDIAC STRESS/REST INJE CTIONon 08-28-[address] [facility] CARDIAC STRESS/REST INJECTION Addendum Begins Patient Name: [...] PERFUSION STRESS TEST WITH LEXISCAN Performing facility: [facility], [address] [place] [address], [address], [address] Provider: Mary Ayala MD PCP: Dr. Cruz Supervising provider: Mary Ayala MD INDICATION: CAD; SOBOE Nonischemic cardiomyopathy HISTORY: Gender: F; Age: 81 y/o ; Height: 149.8 cm; Weight: 52.7 kg. High Cholesterol; HTN; SOB; Denies smoking. COMPARISON: Previous nuclear testing completed [id number] at [facility]. ACCESSION NUMBER(S): [id number]; [id number]; [id number] ORDERING CLINICIAN: MARY AYALA TECHNIQUE: ONE DAY [...] Electronically signed by: MARK ZAMBRANO MD Normal [facility] No Panel Informationon 08-28 Normal [facility] 250 DO Work Phone: [facility] DO Work [...] 07Jun2021 03:06PM Heart Rate60, L Brachial Artery Ryfiihtv233, LUE, Sitting Dvtmzegzv56, LUE, Sitting Height4 ft 11 in Zfbsqh248 lb BMI Bhhodkmuxl48.61 kg/m2 BSA Calculated1.41 Tobacco Useb) No PHQ-2 [...] Cardiovascular: carotid (more content not included)... Normal [facility] Tobacco Screening.on 022 Adult depression screening assessment No [facility] 250 DO Work Phone: Fall risk assessment a) No falls within the last year [facility] 250 DO Work Phone: Tobacco use status [facility] b) No [facility] 250 DO Work Phone: Tobacco Screening.on 021 Fall risk assessment a) No falls within the last year [facility] Nuzhat y 250 DO Work Phone: Tobacco use status [facility] b) No -[facility] 250 DO Work Phone: No Panel Informationon 09-24 [facility] 450 DO Work Phone: [email or web address]} [facility] SJW 450 DO [...] mcg) oral capsule 1 cap(s) orally Normal [facility] Coronavirus 2019 RNA by PCR, Screening Asymptomticon 09-21-2020 Coronavirus 2019 RNA by PCR, Screening Asymptomtic Not detected Normal See Below [facility] Work Phone: Comment on [...] make patient management decisions.Fact sheet for providers: https://www.fda.gov/media/377611/downloadFact sheet for patients: https://www.fda.gov/media/062529/downloadThis test has received FDA Emergency Use Authorization (EUA) and has been verified by [facility] ([facility]). This test is only authorized for the duration of time that circumstances exist to justify the authorization of the emergency use of in vitro diagnostic tests for the detection of SARS-CoV-2 virus and/or diagnosis of COVID-19 infection under section 564(b)(1) of the Act, 21 U.S.C. 360bbb-3(b)(1), unless the authorization is terminated or revoked sooner. [facility] is certified under CLIA-88 as qualified to perform high complexity testing. Testing is performed in the [facility] laboratories located at [address] [place] [address]. ED NOTEon 04-08-2019 ED NOTE HNO ID: [id number] Author: Maria Teresa GarnicaRn) LINA Olvier Service: ? Author Type: Registered Nurse Type: ED Notes Filed: 04/08/2019 7:07 PM Note Text: Patient discharged per MD orders, RN at bedside to explain and review s/sx of worsening condition and to return to ED if worsening s/sx develop. Follow up care and questions answered with patient/family. [facility] ED NOTE HNO ID: [id number] Author: Lenore GarnicaRn) João RN Service: ? Author Type: Registered Nurse Type: ED Notes Filed: 04/08/2019 5:16 PM Note Text: Bed: ED-11H Expected date: Expected time: Means of arrival: Comments: [facility] ED NOTE HNO ID: [id number] Author: Maribell (MedicRebecca Guzman Service: ? Author Type: Mannequin Molder and Legend Maker Type: ED Notes Filed: 04/08/2019 4:59 PM Note Text: Past 2 days left ear pain. Went to urgent care and her BP was high so sent here. [facility] ED PROV NOTEon 04-08-2019 ED PROV NOTE HNO ID: [id number] Author: Elenita Castillo Service: Emergency Medicine Author Type: Physician Emotionally Impaired Teacher Type: ED Provider Notes Filed: 04/09/2019 3:31 [...] of the extremities. History provided by: Patient fur nailer used: No PAST MEDICAL HISTORY Diagnosis Date - Asthma - CAD (coronary artery disease) - Chronic cough due to asthma - Dyslipidemia - GERD (gastroesophageal reflux disease) - Hypertension - [place], old - MRSA infection - Myocarditis (HCC) PAST SURGICAL HISTORY Procedure Laterality Date - BACK SURGERY HX - CHOLECYSTECTOMY - COLONOSCOPY 2014 -was told she does not need anothe one-done in [place] - EGD 08/17/2018 /Normal - VALENTIN W/WO [...] wounds Nose: Nose normal. Mouth/Throat: Lips: [place]. Mouth: Mucous membranes are moist. Pharynx: Oropharynx [...] SIGNATURE: STEVIE Solano Pa-C 04/09/19 1531 Normal [facility] Vital Signs Date Time Vital Sign Value Performing Clinician Facility 05-07-2023 09:00-0500 Body mass index (BMI) [Ratio] 22.38 kg/m2 Celletra Work Phone: [facility] 05-07-2023 09:00-0500 Body weight 50.26 kg Celletra Work Phone: [facility] 05-07-2023 09:00-0500 Diastolic blood pressure 68 mm[Hg] Celletra Work Phone: [facility] 05-07-2023 09:00-0500 Heart rate 81 /min [facility]letra Work Phone: [facility] 05-07-2023 09:00-0500 SaO2% (BldA) [Mass fraction] 99 % Celletra Work Phone: [facility] 05-07-2023 09:00-0500 Systolic blood pressure 116 mm[Hg] Celletra Work Phone: [facility] 02-11-2023 09:05-0500 Body height 152.4 cm Eliecer Isaac Other [employer] Other 02-11-2023 09:05-0500 Body mass index (BMI) [Ratio] 20.5 kg/m2 Eliecer Gray Other [employer] Other 02-11-2023 09:05-0500 Body temperature 97.7 [degF] Eliecer Gray Other [employer] Other 02-11-2023 09:05-0500 Body weight 47.63 kg Eliecer Gray Other [employer] Other 02-11-2023 09:05-0500 Diastolic blood pressure 93 mm[Hg] Eliecer Gray Other [employer] Other 02-11-2023 09:05-0500 Respiratory rate 18 /min Eliecer Gray Other [employer] Other 02-11-2023 09:05-0500 SaO2% (BldA) [Mass fraction] 97 % Eliecer Gray Other [employer] Other 02-11-2023 09:05-0500 Systolic blood pressure 166 mm[Hg] Eliecer Gray Other [employer] Other 02-02-2023 11:06-0400 Body height 142.2 cm Nick Wasserman MD Work Phone: [facility] 02-02-2023 11:06-0400 Body mass index (BMI) [Ratio] 24.21 kg/m2 Nick Wasserman MD Work Phone: [facility] 02-02-2023 11:06-0400 Body weight 48.99 kg Nick Wasserman MD Work Phone: [facility] 02-02-2023 11:06-0400 Diastolic blood pressure 58 mm[Hg] Nick Wasserman MD Work Phone: [facility] 02-02-2023 11:06-0400 Heart rate 60 /min Nick Wasserman MD Work Phone: [facility] 02-02-2023 11:06-0400 Systolic blood pressure 138 mm[Hg] Nick Wasserman MD Work Phone: [facility] 08-30-2022 10:55-0400 Body height 152.4 cm Luis Nolasco Other [employer] Other 08-30-2022 10:55-0400 Body mass index (BMI) [Ratio] 20.7 kg/m2 Luis Nolasco Other [employer] Other 08-30-2022 10:55-0400 Body temperature 97.8 [degF] Luis Nolasco Other [employer] Other 08-30-2022 10:55-0400 Body weight 48.08 kg Luis Nolasco Other [employer] Other 08-30-2022 10:55-0400 Diastolic blood pressure 70 mm[Hg] Luis Nolasco Other [employer] Other 08-30-2022 10:55-0400 Respiratory rate 18 /min Luis Nolasco Other [employer] Other 08-30-2022 10:55-0400 SaO2% (BldA) [Mass fraction] 97 % Luis Nolasco Other [employer] Other 08-30-2022 10:55-0400 Systolic blood pressure 123 mm[Hg] Luis Nolasco Other [employer] Other 03-06-2022 15:48-0500 Diastolic blood pressure 72 mm[Hg] Adriana Changaver-Worcester Work Phone: [facility] 250 DO Work Phone: 03-06-2022 15:48-0500 Systolic blood pressure 136 mm[Hg] Adriana D Tirado-Worcester Work Phone: [facility] 250 DO Work Phone: 03-06-2022 15:25-0500 Body height 144.78 cm Adriana D Tirado-[place] Work Phone: [facility] 250 DO Work Phone: 03-06-2022 15:25-0500 Body mass index (BMI) [Ratio] 23.37 kg/m2 Adriana D Tirado-[place] Work Phone: [facility] 250 DO Work Phone: 03-06-2022 15:25-0500 Body surface area Derived from formula 1.38 m2 Adriana D Tirado-[place]cester Work Phone: [facility] 250 DO Work Phone: 03-06-2022 15:25-0500 Body weight 48.99 kg Adriana D Tirado-[place] Work Phone: [facility] 250 DO Work Phone: 03-06-2022 15:25-0500 Diastolic blood pressure 64 mm[Hg] Adriana D Tirado-[place]cester Work Phone: [facility] 250 DO Work Phone: 03-06-2022 15:25-0500 Heart rate 66 /min Adriana D Tirado-[place] Work Phone: [facility] 250 DO Work Phone: 03-06-2022 15:25-0500 Systolic blood pressure 154 mm[Hg] Adriana D Tirado-[place] Work Phone: [facility] 250 DO Work Phone: 01-17-2022 10:25-0400 Diastolic blood pressure 81 mm[Hg] Govea SALAM [facility] 01-17-2022 10:25-0400 Heart rate 55 /min Govea SALAM [facility] 01-17-2022 10:25-0400 Respiratory rate 14 /min Govea SALAM [facility] 01-17-2022 10:25-0400 SaO2% (BldA) [Mass fraction] 98 % Govea SALAM [facility] 01-17-2022 10:25-0400 Systolic blood pressure 158 mm[Hg] Govea SALAM [facility] 01-17-2022 10:10-0400 Diastolic blood pressure 64 mm[Hg] Govea SALAM [facility] 01-17-2022 10:10-0400 Heart rate 56 /min Govea SALAM [facility] 01-17-2022 10:10-0400 Respiratory rate 14 /min Govea SALAM [facility] 01-17-2022 10:10-0400 SaO2% (BldA) [Mass fraction] 100 % Govea SALAM [facility] 01-17-2022 10:10-0400 Systolic blood pressure 141 mm[Hg] Govea SALAM [facility] 01-17-2022 10:05-0400 Diastolic blood pressure 60 mm[Hg] Govea SALAM [facility] 01-17-2022 10:05-0400 Heart rate 57 /min Govea SALAM [facility] 01-17-2022 10:05-0400 Respiratory rate 14 /min Govea SALAM [facility] 01-17-2022 10:05-0400 SaO2% (BldA) [Mass fraction] 98 % Govea SALAM [facility] 01-17-2022 10:05-0400 Systolic blood pressure 131 mm[Hg] Govea SALAM [facility] 01-17-2022 09:56-0400 Body temperature 96.98 [degF] Govea SALAM [facility] 01-17-2022 07:50-0400 Blood Pressure Location Govea SALAM [facility] 01-17-2022 07:50-0400 Body temperature 98.06 [degF] Jeferson WATKINSAM [facility] 01-10-2022 10:48-0400 Diastolic blood pressure 64 mm[Hg] Shi [facility] 01-10-2022 10:48-0400 Mean blood pressure 95 mm[Hg] Shi [facility] 01-10-2022 10:48-0400 Systolic blood pressure 158 mm[Hg] Shi [facility] 01-10-2022 10:44-0400 Blood Pressure Location Shi [facility] 01-10-2022 10:44-0400 Body temperature 97.34 [degF] Shi [facility] 01-10-2022 10:44-0400 Diastolic blood pressure 73 mm[Hg] Shi [facility] 01-10-2022 10:44-0400 Heart rate 51 /min Shi Urbano [facility] 01-10-2022 10:44-0400 Systolic blood pressure 167 mm[Hg] Shi Urbano [facility] 11-13-2021 00:00-0400 Diastolic blood pressure 68 mm[Hg] DO Adriana Tirado-Worcester Work Phone: [facility] 11-13-2021 00:00-0400 Heart rate 62 /min DO Adriana Tirado-Worcester Work Phone: [facility] 11-13-2021 00:00-0400 Respiratory rate 18 /min DO Adriana Tirado-Worcester Work Phone: [facility] 11-13-2021 00:00-0400 SaO2% (BldA) [Mass fraction] 100 % DO Adriana Tirado-Worcester Work Phone: [facility] 11-13-2021 00:00-0400 Systolic blood pressure 133 mm[Hg] DO Adriana Tirado-Worcester Work Phone: [facility] 11-12-2021 18:52-0400 Body height 144.78 cm DO Adriana Tirado-Worcester Work Phone: [facility] 11-12-2021 18:52-0400 Body temperature 98.1 [degF] DO Adriana Tirado-Worcester Work Phone: [facility] 11-12-2021 18:52-0400 Body weight 45.35 kg DO Adriana Tirado-Worcester Work Phone: [facility] 08-29-2021 10:00-0400 Body height 152.4 cm Clement Madrid II Other [employer] Other 08-29-2021 10:00-0400 Body mass index (BMI) [Ratio] 20.5 kg/m2 Clement Diallole II Other [employer] Other 08-29-2021 10:00-0400 Body weight 47.63 kg Clement Diallole II Other [employer] Other 08-28-2021 00:00-0400 65 1 Adriana Murphy Tirado-Worcester Work Phone: [facility] 250 DO Work Phone: Comment on above: [id number] 08-25-2021 12:25-0400 Body height 152.4 cm Eliecer Gray Other [employer] Other 08-25-2021 12:25-0400 Body mass index (BMI) [Ratio] 20.5 kg/m2 Eliecer Gray Other [employer] Other 08-25-2021 12:25-0400 Body temperature 97 [degF] Eliecer Gray Other [employer] Other 08-25-2021 12:25-0400 Body weight 47.63 kg Eliecer Gray Other [employer] Other 08-25-2021 12:25-0400 Diastolic blood pressure 67 mm[Hg] Eliecer Isaac Other [employer] Other 08-25-2021 12:25-0400 Respiratory rate 16 /min Eliecer Gray Other [employer] Other 08-25-2021 12:25-0400 SaO2% (BldA) [Mass fraction] 96 % Eliecer Gray Other [employer] Other 08-25-2021 12:25-0400 Systolic blood pressure 141 mm[Hg] Eliecer Gray Other [facility] [employer] Other 06-07-2021 15:06-0500 Body height 149.86 cm Adriana D Tirado-[place] Work Phone: [facility] 250 DO Work Phone: 06-07-2021 15:06-0500 Body mass index (BMI) [Ratio] 21.61 kg/m2 Adriana D Tirado-[place] Work Phone: [facility] 250 DO Work Phone: 06-07-2021 15:06-0500 Body surface area Derived from formula 1.41 m2 Adriana D Tirado-[place] Work Phone: [facility] 250 DO Work Phone: 06-07-2021 15:06-0500 Body weight 48.54 kg Adriana D Tirado-[place] Work Phone: [facility] 250 DO Work Phone: 06-07-2021 15:06-0500 Diastolic blood pressure 62 mm[Hg] Adriana D Tirado-[place] Work Phone: [facility] 250 DO Work Phone: 06-07-2021 15:06-0500 Heart rate 60 /min Adriana D Tirado-[place] Work Phone: [facility] 250 DO Work Phone: 06-07-2021 15:06-0500 Systolic blood pressure 125 mm[Hg] Adriana D Tirado-[place] Work Phone: [facility] 250 DO Work Phone: 03-05-2021 10:47-0500 Body height 149.86 cm Adriana D Tirado-[place] Work Phone: [facility] 250 DO Work Phone: 03-05-2021 10:47-0500 Body mass index (BMI) [Ratio] 22.02 kg/m2 Adriana Katherine Tirado-[place] Work Phone: [facility] 250 DO Work Phone: 03-05-2021 10:47-0500 Body surface area Derived from formula 1.42 m2 Adriana Katherine Tirado-[place] Work Phone: [facility] 250 DO Work Phone: 03-05-2021 10:47-0500 Body weight 49.44 kg Adriana Katherine Tirado-[place] Work Phone: [facility] 250 DO Work Phone: 03-05-2021 10:47-0500 Diastolic blood pressure 66 mm[Hg] Adriana Murphy Tirado-[place] Work Phone: [facility] 250 DO Work Phone: 03-05-2021 10:47-0500 Heart rate 59 /min Adriana Murphy Tirado-[place] Work Phone: [facility] 250 DO Work Phone: 03-05-2021 10:47-0500 Systolic blood pressure 127 mm[Hg] Adriana Katherine Tirado-[place] Work Phone: [facility] 250 DO Work Phone: Encounters Encounter Date Encounter Type Care Provider Facility Start: 07-15-2023 End: 07-15-2023 ambulatory KASIE LONG Not Available Start: 06-01-2023 End: 06-01-2023 ambulatory DO Adriana Tirado-Worcester Work Phone: [facility] Work Phone: Start: 06-01-2023 End: 06-01-2023 Patient encounter procedure DO Adriana Tirado-Worcester Work Phone: [facility] Work Phone: Start: 05-07-2023 End: 05-07-2023 ambulatory ADRIANA D TIRADO-EMERY Not Available Start: 05-07-2023 End: 05-07-2023 Office outpatient visit 15 minutes Adriana D Tirado-[place]orcester DO Work Phone: [facility] Comment on above: Osteoporosis, post-m enopausal (CMS/HCC) (Primary Dx) Start: 04-16-2023 End: 04-17-2023 ambulatory ADRIANA D TIRADO-EMERY Not Available Start: 04-10-2023 End: 04-11-2023 ambulatory ADRIANA D TIRADO-EMERY Not Available Start: 03-04-2023 End: 03-04-2023 ambulatory VALENTÍN Katherine DOLCE Not Available Start: 02-18-2023 End: 02-18-2023 ambulatory ADRIANA D TIRADO-EMERY Not Available Start: 02-11-2023 Office outpatient vi sit 15 minutes Eliecer Gray [facility] [address] Start: 02-11-2023 End: 02-11-2023 ambulatory Eliecer Gray Facility:[facility] Start: 02-11-2023 End: 02-11-2023 ambulatory DO Adriana Tirado-Worcester Work Phone: [facility] Work Phone: Start: 02-11-2023 End: 02-11-2023 Departed Referred DO Adriana Tirado-Worcester Work Phone: [facility] Urgent [facility] 250 Start: 02-02-2023 End: 02-02-2023 ambulatory Adriana Tirado-Worcester Facility: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); Essential hypertension, benign; Mixed hyperlipidemia; Nonischemic cardiomyopathy ([facility]/HCC) Start: 12-18-2022 End: 12-18-2022 ambulatory Savanna Cassidy Other [employer] Other Start: 12-18-2022 Office outpatient vi sit 15 minutes Savanna Cassidy [facility] Start: 08-30-2022 End: 08-30-2022 ambulatory Luis Nolasco Other [employer] Other Start: 08-30-2022 Office outpatient vi sit 15 minutes Luis Nolasco [facility] [address] Start: 05-14-2022 Chart Update Adriana Tirado-Worcester Work Phone: [facility] 250 DO Work Phone: Start: 03-06-2022 Office outpatient vi sit 15 minutes Adriana Tirado-Worcester Work Phone: [facility] 250 DO Work Phone: Start: 03-06-2022 ambulatory Nick Wasserman II Facility: Start: 03-03-2022 End: 03-04-2022 ambulatory Jay Power Facility:[facility] Start: 02-25-2022 ambulatory Adriana Cruz Facility: Start: 02-24-2022 End: 02-25-2022 ambulatory Jay Power Facility:[facility] Start: 02-19-2022 End: 02-19-2022 ambulatory Jay Boucherjay Facility:[facility] Start: 02-04-2022 ambulatory Adriana Delgadomorales Tirado-Worcester Facility: Start: 02-04-2022 End: 02-05-2022 ambulatory Jay Dempseyfaisaljay Facility:[facility] Start: 02-03-2022 End: 02-04-2022 ambulatory Jay Almanzar. Jannet Facility: [place] Start: 01-17-2022 End: 01-18-2022 ambulatory Jeferson COPE Facility:[facility] Start: 01-17-2022 End: 01-17-2022 Patient encounter procedure Goveascott WATKINSAM [facility] Start: 01-13-2022 End: 01-14-2022 ambulatory Shi Urbano Facility:[facility] Start: 01-10-2022 End: 01-11-2022 ambulatory Shi Urbano Facility:[facility] Start: 01-10-2022 End: 01-11-2022 ambulatory Shi Urbano Facility:[facility] Start: 01-10-2022 Rx Renewal Adriana Tirado-Worcester [facility] DO Work Phone: Start: 01-10-2022 End: 01-10-2022 Patient encounter procedure Shi Urbano [facility] Start: 12-24-2021 ambulatory Adriana Tirado-Nelson Facility: Start: 11-14-2021 ambulatory [facility] Urb[facility] Start: 11-12-2021 End: 11-13-2021 Emergency department patient visit DO Adriana Tirado-Worcester Work Phone: [place] Start: 08-30-2021 Chart Update Adriana Tirado-Worcester [facility] Work Phone: Start: 08-29-2021 End: 08-29-2021 ambulatory Clement Montmorency II Other [employer] Other Start: 08-29-2021 Office outpatient ne w 45 minutes Clement Montmorency II [facility] Start: 08-28-2021 ambulatory Adrianara Wise Tirado-Worcester Facility:[id number] Start: 08-25-2021 End: 08-25-2021 ambulatory Eliecer Gray Other [facility] [employer] Other Start: 08-25-2021 Office outpatient vi sit 15 minutes Eliecer Gray [facility] Start: 08-08-2021 Patient encounter procedure Adriana D Tirado-Worcester Work Phone: [facility] 600 DO Work Phone: Start: 06-07-2021 Office outpatient vi sit 25 minutes Adriana D Tirado-Worcester Work Phone: [facility] 250 DO Work Phone: Start: 06-07-2021 ambulatory Adriana Billie Tirado-Worcester Facility: Start: 03-05-2021 Office outpatient vi sit 25 minutes Adriana D Tirado-Worcester Work Phone: [facility] 250 DO Work Phone: Start: 09-28-2020 Chart Update Adriana D Tirado-Worcester Work Phone: [facility]soqaosftbsuahas-Ei [place] 450 DO Work Phone: Start: 09-24-2020 RENNY, Provider: Vilma Salazar, Status: Pen, Time: 9:20 AM Adriana D Tirado-Worcester Work Phone: NS-Wkvurifolfgvljeb-Nc [place] 450 DO Work Phone: Start: 09-23-2020 Chart Update Adriana D Tirado-Worcester Work Phone: SX-Diikhjhlonkhahgq-Rq cruz S[place]W 450 DO Work Phone: Procedures Date Procedure Procedure Detail Performing Clinician Start: 01-17-2022 Colonoscopy Jeferson COPE Comment on above: biopsies, diverticulosis Start: 11-12-2021 Computed tomography of abdomen and pelvis with contrast DO Adriana Tirado-Worcester Work Phone: Start: 07-06-2020 Esophagogastroduodenoscopy Shi diana Comment on above: Dr Brannon Arthroplasty of knee Adriana D Tirado-Worcester Work Phone: Cholecystectomy Adriana D Tirado-Worcester Work Phone: Colonoscopy Shi Urbano Comment on above: 2010 Esophagogastroduodenoscopy M taylor COPE Comment on above: normal, gastric biopsies Hysterectomy Adriana D Tirado-Worcester Work Phone: Operation on bladder Adriana D Tirado-Worcester Work Phone: Procedure on back Adriana D Tirado-Worcester Work Phone: SARS Antigen (LFIA) DO Lynnr a Tirado-Worcester Work Phone: Total colonoscopy Adriana D Tirado-Worcester Work Phone: Urine culture DO Adriana Tirado-Worcester Work Phone: Plan of Treatment Date Care Activity Detail Author Start: 12-10-2023 Medicare Annual Wellness (AWV) Medicare Annual Wellness (AWV) [employer] [facility] Start: 09-15-2023 End: 09-15-2023 Patient encounter procedure 09/15/2023 9:30 AM EDT Office Visit [facility] [address] [address] [place] [id number] Nick Wasserman MD [address] [facility] [address], [address] [place] [address] [facility] Start: 09-08-2023 End: 09-08-2023 Patient encounter procedure 09/08/2023 8:45 AM EDT Office Visit [facility] [address] [place] [id number] Adriana Cruz, DO [address] [place] [address] [facility] Start: 06-01-2023 Pelvis X-ray XR pelvis 1-2V [facility] Start: 06-01-2023 Radiologic examinati on of knee XR knee LT 4V* [facility] Start: 06-01-2023 XR Knee - left [address] [facility] Start: 06-01-2023 XR Pelvis 1 or [address] [facility] Start: 02-11-2023 Bacteria identified in Urine by Culture [facility] Start: 02-02-2023 End: 02-03-2024 Basic metabolic 2000 panel - Serum or Plasma Basic Metabolic Panel Lab Routine Nonischemic cardiomyopathy (CMS/HCC) Expected: 02/02/2023 (Approximate), Expires: 02/03/2024 [facility] Service Area Work Phone: Comment on above: Expected: 02/02/2023 (Approximate), Expires: 02/03/2024 Start: 02-02-2023 End: 02-03-2024 CBC panel - Blood by Automated count CBC Lab Routine Nonischemic cardiomyopathy (CMS/HCC) Expected: 02/02/2023 (Approximate), Expires: 02/03/2024 [facility] Work Phone: Comment on above: Expected: 02/02/2023 (Approximate), Expires: 02/03/2024 Start: 02-02-2023 End: 02-03-2024 Lipid 1996 panel - Serum or Plasma Lipid Panel Lab Routine Mixed hyperlipidemia Expected: 02/02/2023 (Approximate), Expires: 02/03/2024 [facility] Work Phone: Comment on above: Expected: 02/02/2023 (Approximate), Expires: 02/03/2024 Start: 10-28-2022 FUV, Provider: Nick Wasserman, Status: Pen, Time: 9:40 AM FUV, Provider: Nick Wasserman, Status: Pen, Time: 9:40 AM -[facility] 250 DO Work Phone: Start: 03-06-2022 FUV, Provider: Nick Wasserman, Status: Pen, Time: 3:10 PM FUV, Provider: Nick Wasserman, Status: Pen, Time: 3:10 PM -[facility] 250 DO Work Phone: Start: 02-25-2022 COVID-19 Vaccine (4 - Moderna series) COVID-19 Vaccine (4 - Moderna series) [facility] Start: 12-24-2021 FUV, Provider: Nick Wasserman, Status: Pen, Time: 11:20 AM FUV, Provider: Nick Wasserman, Status: Pen, Time: 11:20 AM -[facility] 250 DO Work Phone: Start: 08-28-2021 STRESS NUC, Provider : MARI HHVI NUCLEAR 01,[id number], Status: Pen, Time: 12:00 PM STRESS NUC, Provider: MARI HHVI NUCLEAR 01,[id number], Status: Pen, Time: 12:00 PM -[facility] 600 DO Work Phone: Start: 06-07-2021 FUV, Provider: Nikc Wasserman, Status: Pen, Time: 3:10 PM FUV, Provider: Nick Wasserman, Status: Pen, Time: 3:10 PM -[facility] 250 DO Work Phone: Start: 11-23-2020 VIRNPVFELICIANOE, Provider : Estefanía Iyer, Status: Pen, Time: 9:30 AM VIRNPVHOME, Provider: Estefanía Iyer, Status: Pen, Time: 9:30 AM [facility] 450 DO Work Phone: Start: 1962 DTaP/Tdap/Td Vaccine s (1 - Tdap) DTaP/Tdap/Td Vaccines (1 - Tdap) [facility] Start: 1942 Lipid panel Lipid Panel [facility] Start: 1942 Medicare Annual Wellness Visit Medicare Annual Wellness Visit (AWV) [facility] Start: 1942 Screening for osteoporosis Bone Density Scan [facility] Patient Education Dehydration, Adult (DC) [facility] Work Phone: Patient referral [facility] Work Phone: Immunizations Immunization Date Immunization Notes Care Provider Sheryl demarco 01-16-2023 Influenza, Seasonal, Quadrivalent, Adjuvanted Nick Wasserman MD Work Phone: [facility] 01-11-2022 Fluzone High-Dose Quadrivalent 0.7 ML Intramuscular Suspension Prefilled Syringe Adriana D Tirado-Worcester Work Phone: [facility] 250 DO Work Phone: 12-31-2021 Moderna Bivalent Booster Vaccination Adriana Tirado-Worcester DO Work Phone: [facility] 12-31-2021 Pfizer COVID-19 Vac Bivalent 30 MCG/0.3ML Intramuscular Suspension Adriana D Tirado-Worcester Work Phone: [facility] CDN[facility] 250 DO Work Phone: 10-18-2021 Prevnar 20 0.5 ML Intramuscular Suspension Prefilled Syringe Adriana D Tirado-Worcester [facility] DO Work Phone: 04-03-2021 Moderna COVID-19 Vaccine 100 MCG/0.5ML Intramuscular Suspension Adriana D Tirado-Worcester Work Phone: [facility] CDNlion[facility] 250 DO Work Phone: 02-26-2021 influenza, high dose seasonal, preservative-free Adriana D Tirado-Worcester Work Phone: [facility] 250 DO Work Phone: 05-30-2020 Moderna COVID-19 Vaccine 100 MCG/0.5ML Intramuscular Suspension Adriana D Tirado-Worcester Work Phone: [facility] Comment on above: Reason for Medicatio n: Other (see comment) 05-07-2020 Moderna SARS-CoV-2 Vaccination Nick Wasserman MD Work Phone: [facility] Work Phone: 05-02-2020 Moderna COVID-19 Vaccine 100 MCG/0.5ML Intramuscular Suspension Adriana D Tirado-Worcester Work Phone: [facility] Comment on above: Reason for Medicatio n: Other (see comment) 04-02-2020 zoster vaccine recombinant Adriana D Tirado-Worcester Work Phone: [facility] 250 DO Work Phone: 02-01-2020 zoster vaccine recombinant Adriana D Tirado-Worcester Work Phone: [facility] 12-30-2019 Fluzone High-Dose Quadrivalent 0.7 ML Intramuscular Suspension Prefilled Syringe Adriana D Tirado-Worcester Work Phone: [facility] 01-04-2019 influenza, high dose seasonal, preservative-free Adriana D Tirado-Worcester Work Phone: [facility] 12-18-2017 influenza, high dose seasonal, preservative-free Adriana D Tirado-Worcester Work Phone: [facility] 11-18-2015 pneumococcal polysaccharide vaccine, 23 valent Adriana Tirado-Worcester DO Work Phone: [facility] NEGATED: Highlighted row has not occurred!01-10-2022 influenza virus vaccine, unspecified formulation Shi Urbano [facility] Payers Date Payer Category Payer Self-pay [id number] 2022 Medicare [id number] 2020 Private Health Insurance [id number] [id number] 2019 Unknown 2019 Unknown [id number] 2.16. 840.1.493757. 1942 Unknown [id number] 2.16.8 40.1.389494.3.579.2.727 1942 Unknown [id number] 2.16.8 40.1.165544.3.579.2.727 1942 Unknown [id number] 2.16.8 40.1.374085.3.579.2.727 1942 Unknown [id number] 2.16.8 40.1.074384.3.579.2.727 1942 Unknown [id number] 2.16.8 40.1.232311.3.579.2.727 1942 Unknown [id number] 2.16.8 40.1.729860.3.579.2.727 1942 Unknown [id number] 2.16.8 40.1.564894.3.579.2.727 1942 Unknown [id number] 2.16.8 40.1.240796.3.579.2.727 1942 Unknown [id number] 2.16.8 40.1.558149.3.579.2.727 1942 Unknown [id number] 2.16.8 40.1.085195.3.579.2.727 1942 Unknown [id number] 2.16. 840.1.624242.3.579.2.356 1942 Unknown [id number] 2.16. 840.1.342287.3.579.2.356 1942 Unknown [id number] 2.16. 840.1.101204.3.579.2.356 1942 Unknown [id number] 2.16. 840.1.959816.3.579.2.356 1942 Unknown [id number] 2.16. 840.1.758895.3.579.2.356 1942 Unknown [id number] 2.16. 840.1.551836.3.579.2.356 1942 Unknown [id number] 2.16.8 40.1.112883.3.579.2.1244 1942 Unknown [id number] 2.16.84 0.1.234900.3.579.2.1259 1942 Unknown [id number] 2.16.84 0.1.492870.3.579.2.1259 1942 Unknown [id number] 2.16.84 0.1.640576.3.579.2.1259 1942 Unknown [id number] 2.16.84 0.1.549306.3.579.2.1259 1942 Unknown [id number] 2.16.84 0.1.959619.3.579.2.1259 1942 Unknown [id number] 2.16.840 .1.272154.3.579.2.1259 1942 Unknown [id number] 2.16.840. 1.535234.3.579.2.1259 Medicare [id number] Medicare Medicare [id number] Unknown [id number] 2.16.8 40.1.813239.3.579.2.531 Unknown [id number] 2.16.8 40.1.785407.3.579.2.531 Social History Date Type Detail Facility Start: 12-09-2022 End: 02-02-2023 Daily caffeine consumption Daily caffeine consumption [facility] Comment on above: tea and a dr. dunbar ; Start: 12-09-2022 End: 02-02-2023 Sex Assigned At [employer] Other Start: 11-12-2021 End: 02-11-2023 Tobacco smoking status NHIS Never smoked tobacco (finding) [facility] Start: 1940 Sex Assigned At Female F [facility] Tobacco smoking status Never [facility] Start: 10-16-2022 End: 02-02-2023 Tobacco use and exposure Smokeless tobacco non-user [facility] Work Phone: Start: 02-02-2023 Alcohol intake Lifetime non-d arcelia (finding) [facility] Work Phone: Start: 1940 Sex [facility]igned At [facility] Work Phone: Start: 01-23-2023 End: 02-02-2023 Exposure to SARS-CoV-2 (event) Not sure [facility] Start: 05-07-2023 Alcohol intake Current drinke r [...] Assessment Result Facility 01-17-2022 Functional Status N/A [facility] 01-10-2022 Functional Status N/A [facility] Clinical Notes 08-25-2021 to 05-07-2023 Adriana Cruz, DO - 05/07/2023 9:24 PM CHRISTIANcaesar Cruz, DO - 05/07/2023 9:00 AM ESTPatient Instructions Note Date & Type Note Facility 05-07-2023 History of Presen t illness Narrative Associated Problem(s): Osteoporosis, post-menopausal ([facility]) Reviewed results of DEXA and how to [...] daily with a meal; Certain patients require 2045-8392 international units daily and in patients deficient [...] bones. Studies show approximately 50% of [place] men and women are vitamin D deficient [...] Anemia Chronic cough Chronic GERD Essential hypertension ([facility]) History of skin cancer Hyperlipidemia LDL goal <70 ([facility]) Major depressive disorder, single episode, moderate ([facility]) ([facility]) Mild asthma without complication ([facility]) Non-ischemic cardiomyopathy ([facility]) Osteoporosis, post-menopausal ([facility]) Overactive bladder Stage 3b chronic kidney disease (HCC) ([facility]) CAD (coronary artery disease) ([facility]) Arthritis of left foot Arthritis of left [...] List Items Addressed This Visit Osteoporosis, post-menopausal ([facility]) - Primary Overview DEXA 04/16/2023: T-scores: L1-4= [...] daily with a meal; Certain patients require 9883-3337 international units daily and in patients deficient [...] bones. Studies show approximately 50% of [place] men and women are vitamin D deficient [...] follow up. Adriana Cruz D.O. Board Certified [employer]or[employer] documented in this encounter [facility] 05-07-2023 Instructions Adriana Cruz DO - [...] daily with a meal; Certain patients require 2525-3627 international units daily and in patients deficient [...] bones. Studies show approximately 50% of [place] men and women are vitamin D deficient [...] in several forms. documented in this encounter [facility] 04-16-2023 Note CLINICAL HISTORY: axel ne [...] She understands and agrees with the plan. [employer] Other 10-30-2023 History of Present illness Narrative* [...] Rfl: Assessment/Plan 1. Coronary artery disease involving elim ira coronary artery of elim ira heart without angina pectoris Stable, I doubt progression based upon her symptoms (and lack thereof). 2. Essential hypertension, benign Well-controlled on current therapy 3. Mixed hyperlipidemia Well-controlled on current therapy 4. Nonischemic cardiomyopathy (CMS/HCC) No manifestations of heart failure detectable today. documented in this [facility] Work Phone: 1(972) 751-493010-30-2023 Instructions* Patient Instructions* Dante Jacob MA - [...] time of your visit. documented in this [facility] Work Phone: [phone]) 315-482509-14-2023 Evaluation note* Encounter Date Diagnosis Assessment Notes Treatment Notes Treatment Clinical Notes Dec, Arthritis of left knee (ICD-10 - M17.12) Patient was prepped and coritone was injected into the left knee under sterile conditions. Patient tolerated well with no adverse reactions. Activity as tolerate. [employer] Other 05-27-2023 Evaluation note* Encounter Date Diagnosis [...] Pt understood and agreed to treatment plan. [employer] Other 12-06-2022 NoteAdmission and Discharge Information Admitting [...] levels flattened. Cardiology consultation was placed at [facility] cardiology group Dr. Wasserman who patient [...] 73.9 % Lymph Auto - 12.3 % [place] Auto - 7.4 % Eos Auto - 3.6 % Basophil Auto - 2.8 % Neutro Absolute - 6.2 E9/L Lymph Absolute - 1.0 E9/L [place] Absolute - 0.6 E9/L Eos Absolute - [...] Est - 1+ U (more content not included)...[facility] above: Result Comment: Electronically Signed By: Yolanda SALAS\.br\Date and Time Signed: 03/10/22 20:44 EST\.br\Electronically Co-Signed By: Pantera QUICK MD\.br\Date and Time Co-Signed: 03/11/2210:53 [id number] NoteMicrobiology PROCEDURE: Blood Culture Charcoal [R1] SOURCE: Blood BODY SITE: Arm R COLLECTED DATE/TIME: 02/24/2022 13:54 EST RECEIVED DATE/TIME: 02/24/2022 14:07 EST START DATE/TIME: 02/24/2022 14:07 EST FREE TEXT SOURCE: Jay Emery DO, DO, John FINAL REPORTS Final Report [] Verified Date/Time: 03/03/2022 18:00 EST No growth at 7 days. Performing Locations R1: This test was performed at: [facility], [address] [place] [address], [id number] [place] [address], FzoucxAdena Health SystemComment on above:Performed By: #### [id number] #### [facility] [address] [place] [address] [id number] NoteMicrobiology PROCEDURE: Blood Culture Charcoal [R1] SOURCE: Blood BODY SITE: Arm L COLLECTED DATE/TIME: 02/24/2022 13:44 EST RECEIVED DATE/TIME: 02/24/2022 14:08 EST START DATE/TIME: 02/24/2022 14:08 EST FREE TEXT SOURCE: IV Start Jay Emery DO, DO, John FINAL REPORTS Final Report [] Verified Date/Time: 03/03/2022 18:00 EST No growth at 7 days. Performing Locations R1: This test was performed at: [facility], [address] [place] [address], [id number] , [place], QgvztfAdena Health SystemComment on above:Performed By: #### [id number] ####[facility] [address] [place], [place] [phone] NoteHOSPITAL REGULATIONS: All Positive and Important Negative [...] a surgery isunclear to me. ALLERGIES:Percocet, Darvocet, Peterson, Oxycodone. PSYCHOSOCIAL HISTORY:Nonsmoker, nondrinker. FAMILY HISTORY:Diabetes, heart disease, lung cancer. REVIEW OF SYSTEMS:Otherwise negative, normal and noncontributory. PHYSICAL EXAMINATION: Vital signs: An ill appearing female. She is uncomfortable and moves slowly. Her blood pressure xye144/66, pulse 64, respirations 16, temperature 36.8, weight [...] hospitalization. Jaime Wasserman M.D. young Dictated: 02/26/2022 [id number] Transcribed: 02/26/2022 cc:Adriana Cruz D.O.[facility] SystemComment on above: Result Comment: Electronically Signed By: Lisy ERIC, Nick Fernandez\Date and Time Signed: 02/27/22 14:23 [id number] NotePT Evaluation done this date. Pt. with on AM-PAC this date. She is safe and independent with all functional activities with no further PT needs.[facility]11-22-2022 Note Chief Complaint Had hernia repair done [...] Lymph Auto: 12.3 % Low (02/24/22 13:54:00) [place] Auto: 7.4 % (02/24/22 13:54:00) Eos Auto: 3.6 % (02/24/22 13:54:00) Basophil Auto: 2.8 % High (02/24/22 13:54:00) Neutro Absolute: 6.2 E9/L (02/24/22 13:54:00) Lymph Absolute: 1 E9/L (02/24/22 13:54:00) [place] Absolute: 0.6 E9/L (02/24/22 13:54:00) Eos Absolute: [...] (02/24/22 14:55:00) UA C (more content not included)...[facility] SystemComment on above: Result Comment: Electronically Signed By: Yolanda SALAS\.br\Date and Time Signed: 02/24/22 21:25 EST\.br\Electronically Co-Signed By: Yolanda SALAS\.br\Date and Time Co-Signed: 02/24/22 21:27 EST\.br\Electronically Co-Signed By: MELI ERIC, J Carlos\.br\Date and Time Co-Signed: 02/25/22 07:18 [id number] Notegeneral surgery interval progress note: S.81 y/o [...] [facility] Comment on above:Result Comment: Electronically Signed By: Jannet ERIC, Jay Lua.br\Date and Time Signed: 02/24/22 14:56 [id number] NoteHistory and Physical Update H&P Reviewed. Patient [...] mg= 1 mL, IV Push, q5min, PRN Peterson 325 mg-5 mg oral tablet, 1 tab(s), [...] disease: Father. Primary malignant neoplasm of lung: Sister.[facility]11-02-2022 [id number]:[address] [place], [place] 6904010-17-2022 [id number]:[address] [place], [place] 6904010-14-2022 Evaluation + Plan noteExtracted from: Title:FRANCISCA POSTOP Author:Eliecer Pennington DO Date: 01/17/22 Plan Transfer/ Discharge: Patient can be discharged from PACU when criteria met. Condition good. Extracted from: Title:FRANCISCA PREOP ENDO NOTE Author:Waylon Pennington DO Date:01/17/22 Plan [place] [employer] (ASA) physical status classification: [...] Date:02/03/2022 10:20:00 AM Scheduled Provider:Jay Power MD Location:[facility] Appointment Type:[address]10-14-2022 Hospital Discharge instructions Patient Education 01/17/2022 [...] what activities are safe for you. Take wjzh-yyd-nnqfjjt and prescription medicines only as told by [...] 09/21/2012 Document Revised: 09/14/2018 Document Reviewed: 08/23/2018 [employer] Patient Education 2020 [employer]. 01/17/2022 10:08:02 Colonoscopy, Care After Surgery Salam [...] unsweetened, w/added ascorbic acid 1 cup 0.5 [place] 1 cup 0.7 Vegetables Cooked Green beans 1 cup 4.0 Carrots 1/2 cup sliced 2.3 Peas 1 cup 8.8 Potato (baked, with skin) 1 medium potato 3.8 Raw [place] (with peel) 1 cucumber 1.5 Lettuce 1 [...] 8.7 Peanuts 1/2 cup 7.9 Chart from [facility] 2013. SEEK IMMEDIATE MEDICAL CARE IF: You [...] Reference. Available at http://www.nal.usda.gov/fnic/foodcomp/search/. Information adapted from: [facility] Patient Information 2009 Status4 [facility]. [facility] 2012 [email or web address].[employer]/contents/ibuvqieihdfv-obkcwjp-tdynsb-the-basics Follow Up Care 01/10/2022 12:34:05 With:Jeferson COPE Address: [address] [place], [place] [address]. [address] [place] [address] Business (1) When: Unknown Comments:office will call for follow up [facility]10-07-2022 Hospital Discharge instructions Patient Education [...] or in yourcal community. General instructions Take rcwi-xci-svwgclz and prescription medicines only as told by [...] International Foundation for Functional Gastrointestinal Disorders: iffgd.org [employer]: patients.gi.org Contact a health [...] restrictions, lifestyle changes, and skin care. Take jwul-mhn-uglrsmh and prescription medicines only as told by [...] 03/04/2005 Document Revised: 08/05/2018 Document Reviewed: 08/05/2018 [employer] Patient Education 2020 [employer]. 01/10/2022 10:49:37 Colonoscopy, Adult Colonoscopy, Adult A [...] including vitamins, herbs, eye drops, creams, and ktsp-sam-dsswwum medicines. Any problems you or family members [...] 03/20/2001 Document Revised: 01/13/2018 Document Reviewed: 06/03/2016 [employer] Patient Education 2020 [employer]. Follow Up Care 11/13/2021 10:56:24 With:Shi Urbano CNP Address: When:1 to 2 weeks [facility] 05-26-2022 Evaluation note* Encounter [...] consider an injection in the left knee. [employer] Other 05-22-2022 Evaluation note* Encounter Date Diagnosis [...] Pt understands and agrees with the plan. [employer] Other Evaluation + Plan note Future Appointments Appointment Date:02/24/2022 12:30:00 PM Scheduled Provider: Location:[facility] Appointment Type:Surgery FT Future Scheduled Tests Laboratory* Fecal WBC Lactoferrin 01/10/22 * Giardia lamblia, Direct Detection EIA 01/10/22 * O & P Exam, Routine 01/10/22 * Clostridium difficile by PCR 01/10/22 * Enteric Panel by PCR 01/10/22 [facility] Evaluation noteNo assessment information available [place] Work Phone: Evaluation note* Diagnosis Coronary artery disease involving elim ira coronary artery of elim ira heart without angina pectoris- Primary Essential hypertension, benign Mixed hyperlipidemia Nonischemic cardiomyopathy (CMS/HCC) Other primary cardiomyopathies documented in this encounter [facility] Work Phone: Evaluation note* Diagnosis Osteoporosis, post-menopausal (CMS/HCC)- Primary Senile osteoporosis documented in this encounter [employer] HealthcareEvaluation note* Diagnosis Onset Date Resolution Status Arthritis of left knee acute Primary osteoarthritis of left knee acute [facility] Work Phone: History general Narrative - Reported* Type Description Date Medical History high cholesterol Medical History high blood pressure Medical History [place] Medical History asthma Surgical History right knee repacement Surgical History gall bladder Surgical History hysterectomy Surgical History carpal tunnel release Hospitalization History heart [employer] Other History of Present illness Narrative* Patient [...] other recommendation for changes in medical therapy. [facility] Work Phone: History of Present illness [...] which appears to be adequate and appropriate. [facility] DO Work Phone: History of Present illness [...] which appears to be adequate and appropriate. [facility] DO Work Phone: History of Present illness [...] and [facility] Work Phone: Hospital course Narrative No data available for this section [facility] Hospital Discharge instructions Additional Instructions Increase your intake of fluids. Take Zofran as prescribed for nausea. Follow-up with your primary care physician for reevaluation in 3 to 5 days.[place] Work Phone: Progress note No data available for this section [facility] Reason for referral (narrative)* Consultation (Routine) - Authorized Specialty Diagnoses / Procedures Referred By Silvano brown Referred To Contact Cardiology Diagnoses Essential hypertension, benign Procedures Follow Up In Cardiology Nick Wasserman MD [address] [place] [address] [address], [address] [address] Nick Wasserman MD [address] [place] [address] 2, [address] [address] Referral ID Status Reason Start Date Expiration Date V isits Requested Visits Authorized [id number] Authorized 02/02/2023 02/02/2024 1 1 [facility] Work Phone: Summary Purpose Family History No [...] section and content) DATE CREATED AUTHOR 04/09/2019 [facility] DATE CREATED AUTHOR AUTHOR'S ORGANIZ ATION 11/20/2020 [facility] DATE CREATED AUTHOR AUTHOR'S ORGANIZ ATION 09/01/2021 [facility] DATE CREATED AUTHOR AUTHOR'S ORGANIZ ATION 10/25/2021 [facility] DATE CREATED AUTHOR AUTHOR'S ORGANIZ ATION 03/07/2022 [employer] DATE CREATED AUTHOR AUTHOR'S ORGANIZ ATION 03/11/2022 [facility] DATE CREATED AUTHOR AUTHOR'S ORGANIZ ATION 04/01/2022 [facility] DATE CREATED AUTHOR AUTHOR'S ORGANIZ ATION 02/03/2023 [facility] DATE CREATED AUTHOR AUTHOR'S ORGANIZ ATION 02/20/2023 [facility] DATE CREATED AUTHOR AUTHOR'S ORGANIZ ATION 03/21/2023 [facility] DATE CREATED AUTHOR AUTHOR'S ORGANIZ ATION 07/16/2023 [facility] EPIC REASON FOR VISIT [...] Active Misbah Greenwood DO Emergency Provider Active [employer] Relationship Specialty Start Date End Date Adriana Cruz DO [address] [facility], [facility] [address] [place] [address] PCP - General 09/17/20 Team Status: Inactive Member Role Status Dates Adriana Cruz DO Primary Care Provider Active Eliecer Gray , BELT OPERATOR-C Attending Provider Mo e [employer] Relationship Specialty Start Date End Date Adriana Cruz DO [address] [facility] [address] [place] [address] PCP - [employer] 04/06/20 Adriana Cruz DO [address] [place] [address] PCP - General Internal Medicine 02/18/23 Krissy Velazquez MD [address] [place] [id number] Consulting Physician Dermatology 12/03/22 Cristhian Bonner MD [address] [place] [id number] Referring Physician Ophthalmology 12/03/22 Valentín Mills, DPM FACFAS [address] [place] [phone] Consulting Physician Podiatry 12/08/22 Aye Wasserman MD [address] [address] Consulting Physician Cardiology 12/08/22 Jeferson Cope MD [address] [place] [address] Consulting Physician Gastroenterology 12/08/22 [place] [address] [place] [address] Consulting Physician Orthopaedic Surgery 12/09/22 Team Status: [...] BE BASED ON THE PRIMARY CLINICAL RECORDS. [employer] provides no warranty or guarantee of the accuracy or completeness of information in this document.
== END 2023-07-23 08:50 | disposition home or self-care (01) ==
LOC: VC 08:49
PROVIDERS: PCP Radiology Diagnostic Radiology; Visit Provider Radiology Diagnostic Radiology
DX: I83.813 Varicose veins of bilateral lower extremities with pain (principal)
CPT/HCPCS: 36471